=== PATIENT | female | born 1975 | race Caucasian/White ===

== ENCOUNTER 2021-01-13 08:22 | Outpatient (REF) | payer BC, MEDICARE, OTHER, SELFPAY ==
--- NOTE | 2021-01-13 10:59 | MHC.AU.AEV ---
Adult Audiological Evaluation Date of Visit: 01/13/21 Reason for Appointment: Patient has started to notice difficulty hearing out of her left ear. She used to always use her left ear on the phone. Lately when she tries to use her left ear, the phone sounds too soft. When she switches to the right ear, the phone sounds normal. She has also noticed difficulty understanding speech in background noise. Does patient feel they have a hearing loss?: Yes If Yes, Which Ear?: Left Ear When Was Hearing Difficulty First Noticed?: One month ago Ear History: Ear Deformity: None Reported Recent Ear Drainage: None Reported Recent Ear Pain: None Reported Family History of Hearing Loss?: Yes: Grandmother Recent Ear Infections: None Reported Ear Infections in Childhood: None Reported Previous Ear Surgery: None Reported Bothersome Tinnitus/Ringing/Noises in Ears: None Reported Blocked/Full Sensation in Ear(s): None Reported History of occupational noise exposure?: No History: No Medical History: Medical History: Primary Immunodeficiency (receives IVIG), Familial Mediterranean Fever, Migraines, Asthma, Diabetes, Bipolar, Sinus Problems, Has received IV antibiotics in the past Allergies: Morphine, Demerol, Reglan, Flonase, Tape/Adhesive Otoscopy: Right Ear: Unremarkable Left Ear: Unremarkable Tympanometry: Tympanometry performed due to: To assess integrity of the middle ear system Right Ear: Normal Middle Ear System (Type A) Left Ear: Normal Middle Ear System (Type A) Acoustic Reflexes: Ipsilateral Probe Right/Stimulus Right: 500 Hz: Present 1000 Hz: Present 2000 Hz: Present 4000 Hz: Present Probe Left/Stimulus Left: 500 Hz: Present 1000 Hz: Present 2000 Hz: Present 4000 Hz: Elevated Contralateral Probe Right/Stimulus Left: 500 Hz: Absent 1000 Hz: Absent 2000 Hz: Absent 4000 Hz: Absent Probe Left/Stimuls Right: 500 Hz: Present 1000 Hz: Present 2000 Hz: Present 4000 Hz: Present Otoacoustic Emissions Frequency Range Used: 1.6-8 kHz Right Ear Results: Present 1.6-7.1 kHz, Absent 8 kHz Left Ear Results: Present 1.6-5.6, 7.1 kHz, Reduced/absent 6.3 and 8.0 kHz Hearing Evaluation: Transducer(s) Used: Insert Earphones Method: Conventional Audiometry Stimuli Used: Pure Tones Right Ear: Description of Hearing: Overall normal; however, a conductive component was noted at 500 and 1000 Hz Left Ear: Description of Hearing: Normal from 250-750 hz, mild sensorineural hearing loss at 1000 Hz, borderline-normal at 1500 Hz, normal from 3274-6405 Hz. Left ear asymmetry noted at 250, 1000, 4000, and 8000 Hz Speech Recognition Threshold (SRT): Method Used: Recorded Lists Stimuli Used: Spondee Words Right Ear: 15 dBHL Left Ear: 20 dBHL Word Discrimination: Method: Recorded Lists Word Lists Used:: W-22 Right Ear: 100% at 55 dBHL Left Ear: 100% at 60 dBHL Most Comfortable Level (MCL): Right Ear: 55 dBHL Left Ear: 60 dBHL QuickSIN: Tested binaurally at 60 dBHL: score of 6 dB SNR loss, which suggests difficulty hearing in noise that is mildly elevated over the average listener. Interpretation of Results: Minor threshold asymmetries noted, where the left ear is worse. During speech audiometry, although the word discrimination of the left ear was 100%, patient reported that the sound quality seemed very different in the left ear. Abnormal findings noted in acoustic reflexes. In the right ear, all ipsilateral reflexes were normal. For contralateral (probe right/stimulus left), all reflexes were absent. In the left ear, ipsilateral reflexes at 500-2000 Hz were normal, and 4000 Hz was elevated. For contralateral probe left/stimulus right, all reflexes were normal. Abnormal findings were verified twice. Further retrocochlear evaluation may be warranted. Recommendations: Follow-up with Ear, Nose, and Throat is recommended to address left-sided hearing differences, including abnormal acoustic reflexes. Further retrocochlear evaluation may be warranted. Diagnosis: Primary Diagnosis: H93.293 Abnormal Auditory Perception Signature: Provider: Artis Szymanski, [facility]
== END 2021-01-13 08:23 | disposition home or self-care (01) ==
LOC: HO.SH 08:22
PROVIDERS: Visit Provider Hospitalist
DX: H93.293 Other abnormal auditory perceptions, bilateral (principal)
CPT/HCPCS: 92550; 92557; 92587

== ENCOUNTER 2021-01-29 09:51 | Inpatient (IN) | payer BC, MEDICAID, SELFPAY ==
[2021-01-29] MEDS: metFORMIN HCl 1,000 MG TABLET 1000 MG PO (17:05)
[2021-01-29] MEDS: Acetaminophen 325 MG TABLET 650 MG PO (17:05)
[2021-01-29 17:51] VITALS: BP 122/76; PULSE 84; RESP 18; TEMP 36.2; O2SAT 98
[2021-01-29 18:00] VITALS: BP 118/82; PULSE 89; RESP 16; TEMP 36.9; O2SAT 97
[2021-01-29 19:15] LABS: Glucose, Whole Blood 160 mg/dL (60-115)
[2021-01-29] MEDS: lamoTRIgine 100 MG TABLET 400 MG PO (20:27)
[2021-01-29] MEDS: Montelukast Sodium 10 MG TABLET PO (20:27)
[2021-01-29] MEDS: Atorvastatin Calcium 40 MG TABLET PO (20:28)
[2021-01-29] MEDS: Topiramate 100 MG TABLET 150 MG PO (20:28)
[2021-01-29] MEDS: Colchicine 0.6 MG TABLET PO (20:28)
[2021-01-29] MEDS: clonazePAM 0.5 MG TABLET PO (20:28)
[2021-01-29] MEDS: Benztropine Mesylate 1 MG TABLET PO (20:29)
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
[2021-01-30] MEDS: clonazePAM 1 MG TABLET PO (04:08)
--- NOTE | 2021-01-30 08:15 | HO.PSYCHPN ---
Subjective Subjective Date of Service: 01/30/21 Reason For Visit: Bipolar disorder Healthcare Proxy: No Guardianship: No Medical Problems Affecting Mental Status: No Interim History: Mood less unstable. Feeling more secure here. Adjusting to milieu. No SI here. Pleased with progress. Insighful re med choices. Medication Compliance: Yes Side effects from medications: No Attending Groups: Yes Review of Systems Acute medical concerns: No Medical Review of Systems: unchanged Review of Systems Review of Systems Yes all other systems are reviewed and are negative (except psychiatric symptoms) Mental Status Exam Mental Status Exam Patient Appearance: Disheveled Patient Orientation: Person, Place, Time and Situation Level of Consciousness: Awake and Appropriate Patient Behavior: Talkative and Cooperative Mood Description: Depressed and Anxious Affect Description: Depressed and Anxious Ability to Follow Directions: Excellent Speech Pattern: Clear Memory Description: Intact Diagnostics Vital Signs (24Hr): Vital Signs - 24 hr 01/29/21 17:51 01/29/21 18:00 Temperature 97.2 F 98.5 F Pulse Rate 84 89 Respiratory Rate 18 16 Blood Pressure 122/76 118/82 Pulse Oximetry 98 97 Labs Labs: Laboratory Results - last 48 hr 01/29/21 19:11 POC Glucose 160 H Medications Medications Current Medications Acetaminophen (Acetaminophen 325 Mg Tablet) 650 mg PO Q6H PRN PRN Reason: Headache/Pain Mild Scale (1-3) Last Admin: 01/29/21 17:05 Dose: 650 mg Documented by: Al Hydroxide/Mg Hydroxide (Magnesium Hydrox/Alum Hydrox 30 Ml Oral.Susp) 30 ml PO Q6H PRN PRN Reason: Heartburn/Nausea Atorvastatin Calcium (Atorvastatin Calcium 40 Mg Tablet) 40 mg PO BEDTIME [facility] Last Admin: 01/29/21 20:28 Dose: 40 mg Documented by: Benztropine Mesylate (Benztropine Mesylate 1 Mg Tablet) 1 mg PO BEDTIME [facility] Last Admin: 01/29/21 20:29 Dose: 1 mg Documented by: Benztropine Mesylate (Benztropine Mesylate 0.5 Mg Tablet) 0.5 mg PO DAILY [facility] Clonazepam (Clonazepam 0.5 Mg Tablet) 0.5 mg PO TID [facility] Last Admin: 01/29/21 20:28 Dose: 0.5 mg Documented by: Clonazepam (Clonazepam 1 Mg Tablet) 1 mg PO BEDTIME PRN PRN Reason: Anxiety Last Admin: 01/30/21 04:08 Dose: 1 mg Documented by: Colchicine (Colchicine 0.6 Mg Tablet) 0.6 mg PO BID [facility] Last Admin: 01/29/21 20:28 Dose: 0.6 mg Documented by: Hydroxyzine HCl (Hydroxyzine Hcl 25 Mg Tablet) 25 mg PO BEDTIME PRN PRN Reason: Anxiety Lamotrigine (Lamotrigine 100 Mg Tablet) 400 mg PO BEDTIME [facility] Last Admin: 01/29/21 20:27 Dose: 400 mg Documented by: Lisinopril (Lisinopril 2.5 Mg Tablet) 2.5 mg PO DAILY [facility]; Protocol [place] Carbonate ([place] Carbonate Er 300 Mg Tablet.Er) 600 mg PO BID [facility] Magnesium Hydroxide (Milk Of Magnesia 30 Ml Oral.Susp) 30 ml PO DAILY PRN PRN Reason: Constipation Metformin HCl (Metformin Hcl 1,000 Mg Tablet) 1,000 mg PO BIDWM [facility] Last Admin: 01/29/21 17:05 Dose: 1,000 mg Documented by: Montelukast Sodium (Montelukast Sodium 10 Mg Tablet) 10 mg PO BEDTIME [facility] Last Admin: 01/29/21 20:27 Dose: 10 mg Documented by: Nicotine (Nicotine 14 Mg Patch.Td24) 14 mg TRANSDERMA DAILY [facility] Nicotine Polacrilex (Nicotine Polacrilex 2 Mg Gum) 4 mg BUCCAL Q2H PRN PRN Reason: Nicotine Cravings Non-Formulary Medication (Norethindrone) 0.35 mg PO DAILY [facility] Sumatriptan Succinate (Sumatriptan Succinate 100 Mg Tablet) 100 mg PO DAILY MRX1 PRN PRN Reason: Migraine Headache Topiramate (Topiramate 100 Mg Tablet) 150 mg PO BEDTIME [facility] Last Admin: 01/29/21 20:28 Dose: 150 mg Documented by: Trazodone HCl (Trazodone Hcl 50 Mg Tablet) 50 mg PO BEDTIME PRN PRN Reason: Insomnia Allergies Allergies Allergy/AdvReac Type Severity Reaction Status Date / Time adhesive [ADHESIVE] Allergy Intermediate BLISTER Unverified 01/29/20 16:24 fluticasone [From FLONASE] Allergy Unknown unknown Unverified 01/29/20 16:24 meperidine [Demerol] Allergy Unknown vomit Verified 01/20/19 00:00 metoclopramide [From REGLAN] Allergy Unknown DIPLOPIA Unverified 01/29/20 16:24 transparent dressing Allergy Unknown rash Verified 01/20/19 00:00 morphine [MORPHINE] AdvReac Severe NAUSEA & Unverified 01/29/20 16:24 VOMITING TEGADERM BANDAGE Allergy Intermediate RASH Uncoded 01/29/20 16:24 morphine Allergy Unknown vomit Uncoded 01/20/19 00:00 tape Allergy Unknown rash Uncoded 01/20/19 00:00 From DEMEROL AdvReac Severe NAUSEA & Uncoded 01/29/20 16:24 VOMITING Assessment & Plan Assessment & Plan (1) Bipolar disorder: Status: Acute Code(s): F31.9 - Bipolar disorder, unspecified Assessment and Plan: Ct meds as prescribed. Optimize [place] Assessment and Plan: Ct Tx plan. Add trulicity when brought in. Greater than 50% of the session was spent on counseling and/or coordination of care Reason for contiued inpatient stay Substantial Risk for: harm to self
[2021-01-30 09:08] LABS: Glucose, Whole Blood 111 mg/dL (60-115)
[2021-01-30 09:09] LABS: Lithium 0.25 mmol/L (0.60-1.20)
[2021-01-30 10:25] VITALS: BP 109/73; PULSE 100; RESP 18; TEMP 37; O2SAT 95
[2021-01-30] MEDS: lisinopriL 2.5 MG TABLET PO (10:25)
[2021-01-30] MEDS: metFORMIN HCl 1,000 MG TABLET 1000 MG PO ×2 (10:32→18:38)
[2021-01-30] MEDS: clonazePAM 0.5 MG TABLET PO ×3 (10:33→20:10)
[2021-01-30] MEDS: Lithium Carbonate ER 300 MG TABLET.ER 600 MG PO ×2 (10:33→20:10)
[2021-01-30] MEDS: Colchicine 0.6 MG TABLET PO ×2 (10:33→20:10)
[2021-01-30] MEDS: Benztropine Mesylate 0.5 MG TABLET PO (10:34)
--- NOTE | 2021-01-30 13:37 | P.CNHOSGPS_ITS ---
History of Present Illness Data of Consult Service Date: 01/30/21 Requesting physician: [facility] Psychiatry Primary Care Provider: Lisandro MOONEY Reason for consult: Medical H+P 45yo F with bipolar disorder, on lithium and lamotrigine, admitted to inpatient psychiatry. Medical consultation requested for management of comorbid conditions and medical history and physical as required by policy. Histories reviewed as below. Currently denies fever, chills, cough, dyspnea, chest pain, abd pain, nausea, vomiting, or headache. Last migraine was yesterday. Last IVIg infusion was 01/25/21. Review of Systems Review of Systems: Yes all other systems are reviewed and are negative (except psychiatric symptoms) [facility] Medical History Allergic asthma Bipolar disorder Dyslipidemia FMF (familial Mediterranean fever) History of Pseudomonas pneumonia History of recurrent pneumonia Menstrual migraine Primary immunodeficiency disorder Type 2 diabetes mellitus Pertinent family history: no DM2, CVA, or MT Surgical History History of arthroscopy History of delivery History of dilation and curettage History of oral surgery History of umbilical hernia repair Social History Household Members: Spouse and Children Housing: House Do you presently have visiting nurse or other home services: No Patient Tobacco Use Status: Never used Tobacco Smoked in Last 30 Days: No e-Cigarette/Vaping Use: Never Used Patient Interested in Nicotine Replacement: No Use of substances other than those prescribed or required for medical reasons: No Currently Displaying Signs/Symptoms of Drug Intoxication Withdrawal: No Have you been hit, kicked, punched, or otherwise hurt by someone within the past year? If so, by whom?: No Do you feel safe in your current relationship?: Yes Is there a partner from a previous relationship who is making you feel unsafe now?: No Are you made to feel afraid or neglected: No Buddhist Healthcare Practices: Jew Advance Directives: Yes Advance Directives Information Provided: No Advance Directives on File: No Do you have thoughts of harming others: None Do you have a plan to hurt others: No Plan Recently lost weight without trying: No Eating poorly because of decreased appetite: No Nutrition Risks: No Nutritional Risk Patient : No : No Poor oral hygiene: No service: No Sexual orientation: Straight/Heterosexual Meds Allergies Allergy/AdvReac Type Severity Reaction Status Date / Time adhesive [ADHESIVE] Allergy Intermediate BLISTER Unverified 01/29/20 16:24 fluticasone [From FLONASE] Allergy Unknown unknown Unverified 01/29/20 16:24 meperidine [Demerol] Allergy Unknown vomit Verified 01/20/19 00:00 metoclopramide [From REGLAN] Allergy Unknown DIPLOPIA Unverified 01/29/20 16:24 transparent dressing Allergy Unknown rash Verified 01/20/19 00:00 morphine [MORPHINE] AdvReac Severe NAUSEA & Unverified 01/29/20 16:24 VOMITING TEGADERM BANDAGE Allergy Intermediate RASH Uncoded 01/29/20 16:24 morphine Allergy Unknown vomit Uncoded 01/20/19 00:00 tape Allergy Unknown rash Uncoded 01/20/19 00:00 From DEMEROL AdvReac Severe NAUSEA & Uncoded 01/29/20 16:24 VOMITING Active Medications: Current Medications Acetaminophen (Acetaminophen 325 Mg Tablet) 650 mg PO Q6H PRN PRN Reason: Headache/Pain Mild Scale (1-3) Last Admin: 01/29/21 17:05 Dose: 650 mg Documented by: Al Hydroxide/Mg Hydroxide (Magnesium Hydrox/Alum Hydrox 30 Ml Oral.Susp) 30 ml PO Q6H PRN PRN Reason: Heartburn/Nausea Atorvastatin Calcium (Atorvastatin Calcium 40 Mg Tablet) 40 mg PO BEDTIME [facility] Last Admin: 01/29/21 20:28 Dose: 40 mg Documented by: Benztropine Mesylate (Benztropine Mesylate 1 Mg Tablet) 1 mg PO BEDTIME [facility] Last Admin: 01/29/21 20:29 Dose: 1 mg Documented by: Benztropine Mesylate (Benztropine Mesylate 0.5 Mg Tablet) 0.5 mg PO DAILY [facility] Last Admin: 01/30/21 10:34 Dose: 0.5 mg Documented by: Clonazepam (Clonazepam 0.5 Mg Tablet) 0.5 mg PO TID [facility] Last Admin: 01/30/21 10:33 Dose: 0.5 mg Documented by: Clonazepam (Clonazepam 1 Mg Tablet) 1 mg PO BEDTIME PRN PRN Reason: Anxiety Last Admin: 01/30/21 04:08 Dose: 1 mg Documented by: Colchicine (Colchicine 0.6 Mg Tablet) 0.6 mg PO BID [facility] Last Admin: 01/30/21 10:33 Dose: 0.6 mg Documented by: Hydroxyzine HCl (Hydroxyzine Hcl 25 Mg Tablet) 25 mg PO BEDTIME PRN PRN Reason: Anxiety Lamotrigine (Lamotrigine 100 Mg Tablet) 400 mg PO BEDTIME [facility] Last Admin: 01/29/21 20:27 Dose: 400 mg Documented by: Lisinopril (Lisinopril 2.5 Mg Tablet) 2.5 mg PO DAILY [facility]; Protocol Last Admin: 01/30/21 10:25 Dose: 2.5 mg Documented by: [place] Carbonate ([place] Carbonate Er 300 Mg Tablet.Er) 600 mg PO BID [facility] Last Admin: 01/30/21 10:33 Dose: 600 mg Documented by: Magnesium Hydroxide (Milk Of Magnesia 30 Ml Oral.Susp) 30 ml PO DAILY PRN PRN Reason: Constipation Metformin HCl (Metformin Hcl 1,000 Mg Tablet) 1,000 mg PO BIDWM [facility] Last Admin: 01/30/21 10:32 Dose: 1,000 mg Documented by: Montelukast Sodium (Montelukast Sodium 10 Mg Tablet) 10 mg PO BEDTIME [facility] Last Admin: 01/29/21 20:27 Dose: 10 mg Documented by: Nicotine (Nicotine 14 Mg Patch.Td24) 14 mg TRANSDERMA DAILY [facility] Nicotine Polacrilex (Nicotine Polacrilex 2 Mg Gum) 4 mg BUCCAL Q2H PRN PRN Reason: Nicotine Cravings Patient Own Medication ( Norethindrone 0.35 Mg Tabs) 1 each PO DAILY [facility] Non-Formulary Medication (Trulicity) 0.75 mg SUBCUT 7XD [facility] Sumatriptan Succinate (Sumatriptan Succinate 100 Mg Tablet) 100 mg PO DAILY M RX1 PRN PRN Reason: Migraine Headache Topiramate (Topiramate 100 Mg Tablet) 150 mg PO BEDTIME [facility] Last Admin: 01/29/21 20:28 Dose: 150 mg Documented by: Trazodone HCl (Trazodone Hcl 50 Mg Tablet) 50 mg PO BEDTIME PRN PRN Reason: Insomnia Results Labs Labs: Laboratory Results - last 24 hr 01/29/21 01/30/21 01/30/21 19:11 08:43 09:03 POC Glucose 160 H 111 [place] 0.25 L Assessment and Plan (1) Menstrual migraine: Status: Acute (2) Allergic asthma: Status: Acute (3) Dyslipidemia: Status: Acute (4) Type 2 diabetes mellitus: Status: Acute (5) FMF (familial Mediterranean fever): Status: Acute (6) Primary immunodeficiency disorder: Status: Acute 45yo F with DM2, primary immunodeficiency, familial Mediterranean fever, dyslipidemia, menstrual migraines, and allergic asthma admitted to inpatient psychiatry for management of bipolar depression # DM2 - continue MTF, hold Trulicity [nonformulary]; check A1c - continue lisinopril for renal protection # dyslipidemia - continue atorvastatin # primary immunodeficiency - gets Gammagard infusions q3wk; last was 5d ago # FMF - continue colchicine # allergic asthma - continue montelukast, prn albuterol HFA; also gets Xolair monthly # menstrual migraines - continue norethindrone, topiramate, prn sumatriptan, prn Fioricet # tobacco abuse - NRT # bipolar disorder - as per Psychiatry; currently on lamotrigine + lithium and levels pending; also on hydroxyzine, clonazepam, and trazodone Thank you for this consult. We are signing off. Please get in touch if any new medical issues arise. Physical Exam Vital Signs: Last Vital Signs Temp 98.6 F 01/30/21 10:25 Pulse 100 01/30/21 10:25 Resp 18 01/30/21 10:25 BP 109/73 01/30/21 10:25 Pulse Ox 95 01/30/21 10:25 Gen: in no acute distress HEENT: sclera anicteric, moist mucus membranes Neck: supple Lungs: clear to auscultation bilaterally Heart: regular rate and rhythm, no murmurs Abd: soft, non-tender, non-distended Ext: no edema Skin: warm/well-perfused Neuro: alert and oriented x3, no focal findings Psych: appropriate affect Neuro Cranial nerves: Yes CN's II-XII intact bilaterally
[2021-01-30 18:00] VITALS: BP 105/69; PULSE 96; RESP 18; TEMP 36.7
[2021-01-30] MEDS: Topiramate 100 MG TABLET 150 MG PO (20:08)
[2021-01-30] MEDS: lamoTRIgine 100 MG TABLET 400 MG PO (20:10)
[2021-01-30] MEDS: Montelukast Sodium 10 MG TABLET PO (20:10)
[2021-01-30] MEDS: Benztropine Mesylate 1 MG TABLET PO (20:10)
[2021-01-30] MEDS: Atorvastatin Calcium 40 MG TABLET PO (20:10)
[2021-01-31 08:05] VITALS: BP 131/73; PULSE 104; TEMP 36.3; O2SAT 99
[2021-01-31 08:38] LABS: Estimated Glomerular Filt Rate > 60
[2021-01-31 09:10] VITALS: BP 131/73; PULSE 104
[2021-01-31] MEDS: lisinopriL 2.5 MG TABLET PO (09:10)
[2021-01-31] MEDS: Lithium Carbonate ER 300 MG TABLET.ER 600 MG PO ×2 (09:10→20:46)
[2021-01-31] MEDS: Colchicine 0.6 MG TABLET PO ×2 (09:10→20:47)
[2021-01-31] MEDS: Benztropine Mesylate 0.5 MG TABLET PO (09:11)
[2021-01-31] MEDS: metFORMIN HCl 1,000 MG TABLET 1000 MG PO ×2 (09:11→18:40)
[2021-01-31] MEDS: clonazePAM 0.5 MG TABLET PO ×2 (09:11→20:46)
[2021-01-31] MEDS: OXcarbazepine 150 MG TABLET PO ×2 (11:52→20:46)
[2021-01-31] MEDS: Acetaminophen 325 MG TABLET 650 MG PO (11:53)
--- NOTE | 2021-01-31 14:19 | HO.PSYCHPN ---
Subjective Subjective Date of Service: 01/31/21 Reason For Visit: Bipolar disorder Interim History: pt reports she is doing OK. feeling a little shaky but not terrible. denies SI/SIBI. states her SI was passive at admission. reviews changes made with Dr. Schrader over the weekend: lithium dosing changed from 1200 at HS to 600 BID, lamictal dosing lowered from 600 mg @HS to 400 mg @HS and level drawn. sharifshaw DCed due to concern for DM. trileptal was to be added, but that was not done until today, starting at 150 mg BID. pt would like to discharge by the end of the week. MD indicates his intention to get trulicity, a home medication which her brought in for her, restarted as of today. will await lamictal level and plan to check lithium level later in the week. Mental Status Exam Mental Status Exam Patient Appearance: Disheveled Patient Orientation: Person, Place, Time and Situation Level of Consciousness: Awake and Appropriate Patient Behavior: Talkative and Cooperative Mood Description: Depressed and Anxious Affect Description: Depressed and Anxious Ability to Follow Directions: Excellent Speech Pattern: Clear Memory Description: Intact Diagnostics Vital Signs (24Hr): Vital Signs - 24 hr 01/30/21 18:00 01/31/21 08:05 01/31/21 09:10 Temperature 98.0 F 97.3 F Pulse Rate 96 104 H 104 H Respiratory Rate 18 Blood Pressure 105/69 131/73 131/73 Pulse Oximetry 99 Labs Results: 01/31/21 07:45 Labs: Laboratory Results - last 48 hr 01/29/21 01/30/21 01/30/21 19:11 08:43 09:03 Creatinine Estim Creat Clear Calc Estimated GFR POC Glucose 160 H 111 [place] 0.25 L 01/31/21 07:45 Creatinine 0.93 Estim Creat Clear Calc TNP Estimated GFR > 60 POC Glucose [place] Medications Medications Current Medications Acetaminophen (Acetaminophen 325 Mg Tablet) 650 mg PO Q6H PRN PRN Reason: Headache/Pain Mild Scale (1-3) Last Admin: 01/31/21 11:53 Dose: 650 mg Documented by: Acetaminophen/Butalbital/Caffeine (Butalb/Acetamin/Caff 50/325/40 Tablet) 1 tab PO Q4H PRN PRN Reason: migraine not responsive to sum Al Hydroxide/Mg Hydroxide (Magnesium Hydrox/Alum Hydrox 30 Ml Oral.Susp) 30 ml PO Q6H PRN PRN Reason: Heartburn/Nausea Albuterol Sulfate (Albuterol Sulfate 90 Mcg 8 Gm Inhaler) 2 puff INHALE RQ4H PRN PRN Reason: shortness of breath/wheeze Atorvastatin Calcium (Atorvastatin Calcium 40 Mg Tablet) 40 mg PO BEDTIME [facility] Last Admin: 01/30/21 20:10 Dose: 40 mg Documented by: Benztropine Mesylate (Benztropine Mesylate 1 Mg Tablet) 1 mg PO BEDTIME [facility] Last Admin: 01/30/21 20:10 Dose: 1 mg Documented by: Benztropine Mesylate (Benztropine Mesylate 0.5 Mg Tablet) 0.5 mg PO DAILY [facility] Last Admin: 01/31/21 09:11 Dose: 0.5 mg Documented by: Clonazepam (Clonazepam 1 Mg Tablet) 1 mg PO BEDTIME PRN PRN Reason: Anxiety Last Admin: 01/30/21 04:08 Dose: 1 mg Documented by: Clonazepam (Clonazepam 0.5 Mg Tablet) 0.5 mg PO BID [facility] Clonazepam (Clonazepam 0.5 Mg Tablet) 0.5 mg PO DAILY PRN PRN Reason: agitation Colchicine (Colchicine 0.6 Mg Tablet) 0.6 mg PO BID [facility] Last Admin: 01/31/21 09:10 Dose: 0.6 mg Documented by: Hydroxyzine HCl (Hydroxyzine Hcl 25 Mg Tablet) 25 mg PO BEDTIME PRN PRN Reason: Anxiety Lamotrigine (Lamotrigine 100 Mg Tablet) 400 mg PO BEDTIME [facility] Last Admin: 01/30/21 20:10 Dose: 400 mg Documented by: Lisinopril (Lisinopril 2.5 Mg Tablet) 2.5 mg PO DAILY [facility]; Protocol Last Admin: 01/31/21 09:10 Dose: 2.5 mg Documented by: [place] Carbonate ([place] Carbonate Er 300 Mg Tablet.Er) 600 mg PO BID [facility] Last Admin: 01/31/21 09:10 Dose: 600 mg Documented by: Magnesium Hydroxide (Milk Of Magnesia 30 Ml Oral.Susp) 30 ml PO DAILY PRN PRN Reason: Constipation Metformin HCl (Metformin Hcl 1,000 Mg Tablet) 1,000 mg PO BIDWM [facility] Last Admin: 01/31/21 09:11 Dose: 1,000 mg Documented by: Montelukast Sodium (Montelukast Sodium 10 Mg Tablet) 10 mg PO BEDTIME [facility] Last Admin: 01/30/21 20:10 Dose: 10 mg Documented by: Nicotine (Nicotine 14 Mg Patch.Td24) 14 mg TRANSDERMA DAILY [facility] Last Admin: 01/31/21 09:15 Dose: Not Given Documented by: Nicotine Polacrilex (Nicotine Polacrilex 2 Mg Gum) 4 mg BUCCAL Q2H PRN PRN Reason: Nicotine Cravings Patient Own Medication ( Norethindrone 0.35 Mg Tabs) 1 each PO DAILY [facility] Last Admin: 01/31/21 11:26 Dose: Not Given Documented by: Non-Formulary Medication (Trulicity) 0.5 ml SUBCUT ONCE ONE Stop: 01/31/21 14:17 Oxcarbazepine (Oxcarbazepine 150 Mg Tablet) 150 mg PO BID [facility] Last Admin: 01/31/21 11:52 Dose: 150 mg Documented by: Sumatriptan Succinate (Sumatriptan Succinate 100 Mg Tablet) 100 mg PO DAILY MRX1 PRN PRN Reason: Migraine Headache Topiramate (Topiramate 100 Mg Tablet) 150 mg PO BEDTIME [facility] Last Admin: 01/30/21 20:08 Dose: 150 mg Documented by: Trazodone HCl (Trazodone Hcl 50 Mg Tablet) 50 mg PO BEDTIME PRN PRN Reason: Insomnia Allergies Allergies Allergy/AdvReac Type Severity Reaction Status Date / Time adhesive [ADHESIVE] Allergy Intermediate BLISTER Unverified 01/29/20 16:24 fluticasone [From FLONASE] Allergy Unknown unknown Unverified 01/29/20 16:24 meperidine [Demerol] Allergy Unknown vomit Verified 01/20/19 00:00 metoclopramide [From REGLAN] Allergy Unknown DIPLOPIA Unverified 01/29/20 16:24 transparent dressing Allergy Unknown rash Verified 01/20/19 00:00 morphine [MORPHINE] AdvReac Severe NAUSEA & Unverified 01/29/20 16:24 VOMITING TEGADERM BANDAGE Allergy Intermediate RASH Uncoded 01/29/20 16:24 morphine Allergy Unknown vomit Uncoded 01/20/19 00:00 tape Allergy Unknown rash Uncoded 01/20/19 00:00 From DEMEROL AdvReac Severe NAUSEA & Uncoded 01/29/20 16:24 VOMITING Assessment & Plan Assessment & Plan (1) Bipolar disorder: Status: Acute Code(s): F31.9 - Bipolar disorder, unspecified Assessment and Plan: Ct meds as prescribed. [employer] [place] Assessment and Plan: 1) lithium dosing changed from 1200 QHS to 600 BID 2) lamictal reduced from 600 QHS to 400 QHS and level drawn, pending. 3) geodone DCed. 4) trileptal started 01/31 at 150 BID. 5) trulicity ordered for 01/31 afternoon. otherwise continued outpt regimen. planning to DC prior to the end of the week. Greater than 50% of the session was spent on counseling and/or coordination of care Reason for contiued inpatient stay Substantial Risk for: inability to function and rapid decompensation
--- NOTE | 2021-01-31 15:28 | MHC.CLN ---
NUTRITION PATIENT REPORTS GOOD APPETITE/EATING WELL. REPORTED HEIGHT=5'4 , REPORTED JXNFUD=[id number]#.
[2021-01-31] MEDS: Omeprazole 20 MG CAPSULE.DR PO (18:40)
[2021-01-31] MEDS: Topiramate 100 MG TABLET 150 MG PO (20:45)
[2021-01-31] MEDS: lamoTRIgine 100 MG TABLET 400 MG PO (20:45)
[2021-01-31] MEDS: Atorvastatin Calcium 40 MG TABLET PO (20:46)
[2021-01-31] MEDS: Benztropine Mesylate 1 MG TABLET PO (20:46)
[2021-01-31] MEDS: Montelukast Sodium 10 MG TABLET PO (20:47)
[2021-01-31 21:15] VITALS: BP 112/64; PULSE 108; RESP 18; TEMP 36.9; O2SAT 95
[2021-02-01] MEDS: Omeprazole 20 MG CAPSULE.DR PO ×2 (05:47→17:00)
[2021-02-01 06:00] VITALS: BP 116/80; PULSE 93; RESP 18; TEMP 36.8; O2SAT 96
[2021-02-01] MEDS: OXcarbazepine 150 MG TABLET PO (08:50)
[2021-02-01] MEDS: clonazePAM 0.5 MG TABLET PO (08:50)
[2021-02-01] MEDS: Loratadine 10 MG TABLET PO (08:51)
[2021-02-01] MEDS: Lithium Carbonate ER 300 MG TABLET.ER 600 MG PO ×2 (08:51→20:29)
[2021-02-01] MEDS: lisinopriL 2.5 MG TABLET PO (08:51)
[2021-02-01] MEDS: metFORMIN HCl 1,000 MG TABLET 1000 MG PO ×2 (08:51→18:31)
[2021-02-01] MEDS: Benztropine Mesylate 0.5 MG TABLET PO (08:51)
[2021-02-01] MEDS: Colchicine 0.6 MG TABLET PO ×2 (08:51→20:34)
[2021-02-01 09:32] LABS: Glucose, Whole Blood 179 mg/dL (60-115)
--- NOTE | 2021-02-01 11:52 | P.PNPSI_ITS ---
Subjective Subjective Date of Service: 02/01/21 Reason For Visit: Bipolar disorder Interim History: pt informed home meds that need to be injected are unable to be given per pharmacy policy. pt informed she will have to miss her trulicity this week, with which she is OK. in addition, zolair will not be available form [facility], so pt will delay her injection by one week. she agrees her mood is improved, anxiety is less. MD asks what else can be done for her here since she is feeling better. she states she is very concerned about leaving the hospital without having a therapist in place. she reports she is currently on very long wait-lists for a therapist. darlin DE'ed as well as pt is no longer taking a neuroleptic medication, klonpin dosing decreased to 0.25 mg BID and daily PRN. per staff, pt has experienced a decrease in anxiety and depression. she has a good appetite and is sleeping well. she has been visible in the milieu, and social. Mental Status Exam Mental Status Exam Narrative: disheveled. cooperative. no PMA/PMR. speech somewhat soft, slowed, and a bit slurred - she reports she is just sleepy. thoughts linear and logical. affect subdued, non-labile, hypo-intense. no SI/HI/AVH expressed. Diagnostics Vital Signs (24Hr): Vital Signs - 24 hr 01/31/21 21:15 02/01/21 06:00 Temperature 98.5 F 98.3 F Pulse Rate 108 H 93 Respiratory Rate 18 18 Blood Pressure 112/64 116/80 Pulse Oximetry 95 96 Labs Results: 01/31/21 07:45 Labs: Laboratory Results - last 48 hr 01/31/21 02/01/21 07:45 09:28 Creatinine 0.93 Estim Creat Clear Calc TNP Estimated GFR > 60 POC Glucose 179 H Medications Medications Current Medications Acetaminophen (Acetaminophen 325 Mg Tablet) 650 mg PO Q6H PRN PRN Reason: Headache/Pain Mild Scale (1-3) Last Admin: 01/31/21 11:53 Dose: 650 mg Documented by: Acetaminophen/Butalbital/Caffeine (Butalb/Acetamin/Caff 50/325/40 Tablet) 1 tab PO Q4H PRN PRN Reason: migraine not responsive to sum Al Hydroxide/Mg Hydroxide (Magnesium Hydrox/Alum Hydrox 30 Ml Oral.Susp) 30 ml PO Q6H PRN PRN Reason: Heartburn/Nausea Albuterol Sulfate (Albuterol Sulfate 90 Mcg 8 Gm Inhaler) 2 puff INHALE RQ4H PRN PRN Reason: shortness of breath/wheeze Atorvastatin Calcium (Atorvastatin Calcium 40 Mg Tablet) 40 mg PO BEDTIME [facility] Last Admin: 01/31/21 20:46 Dose: 40 mg Documented by: Clonazepam (Clonazepam 1 Mg Tablet) 1 mg PO BEDTIME PRN PRN Reason: Anxiety Last Admin: 01/30/21 04:08 Dose: 1 mg Documented by: Clonazepam (Clonazepam 0.5 Mg Tablet) 0.25 mg PO DAILY PRN PRN Reason: agitation Clonazepam (Clonazepam 0.5 Mg Tablet) 0.25 mg PO BID [facility] Colchicine (Colchicine 0.6 Mg Tablet) 0.6 mg PO BID [facility] Last Admin: 02/01/21 08:51 Dose: 0.6 mg Documented by: Hydroxyzine HCl (Hydroxyzine Hcl 25 Mg Tablet) 25 mg PO BEDTIME PRN PRN Reason: Anxiety Lamotrigine (Lamotrigine 100 Mg Tablet) 400 mg PO BEDTIME [facility] Last Admin: 01/31/21 20:45 Dose: 400 mg Documented by: Lisinopril (Lisinopril 2.5 Mg Tablet) 2.5 mg PO DAILY [facility]; Protocol Last Admin: 02/01/21 08:51 Dose: 2.5 mg Documented by: [place] Carbonate ([place] Carbonate Er 300 Mg Tablet.Er) 600 mg PO BID [facility] Last Admin: 02/01/21 08:51 Dose: 600 mg Documented by: Loratadine (Loratadine 10 Mg Tablet) 10 mg PO DAILY [facility] Last Admin: 02/01/21 08:51 Dose: 10 mg Documented by: Magnesium Hydroxide (Milk Of Magnesia 30 Ml Oral.Susp) 30 ml PO DAILY PRN PRN Reason: Constipation Metformin HCl (Metformin Hcl 1,000 Mg Tablet) 1,000 mg PO BIDWM [facility] Last Admin: 02/01/21 08:51 Dose: 1,000 mg Documented by: Montelukast Sodium (Montelukast Sodium 10 Mg Tablet) 10 mg PO BEDTIME [facility] Last Admin: 01/31/21 20:47 Dose: 10 mg Documented by: Nicotine (Nicotine 14 Mg Patch.Td24) 14 mg TRANSDERMA DAILY [facility] Last Admin: 02/01/21 08:51 Dose: Not Given Documented by: Nicotine Polacrilex (Nicotine Polacrilex 2 Mg Gum) 4 mg BUCCAL Q2H PRN PRN Reason: Nicotine Cravings Patient Own Medication ( Norethindrone 0.35 Mg Tabs) 1 each PO DAILY [facility] Last Admin: 01/31/21 11:26 Dose: Not Given Documented by: Omeprazole (Omeprazole 20 Mg Capsule.Dr) 20 mg PO BID@0630,1630 [facility] Last Admin: 02/01/21 05:47 Dose: 20 mg Documented by: Oxcarbazepine (Oxcarbazepine 300 Mg Tablet) 300 mg PO BID [facility] Sumatriptan Succinate (Sumatriptan Succinate 100 Mg Tablet) 100 mg PO DAILY MRX1 PRN PRN Reason: Migraine Headache Topiramate (Topiramate 100 Mg Tablet) 150 mg PO BEDTIME [facility] Last Admin: 01/31/21 20:45 Dose: 150 mg Documented by: Trazodone HCl (Trazodone Hcl 50 Mg Tablet) 50 mg PO BEDTIME PRN PRN Reason: Insomnia Allergies Allergies Allergy/AdvReac Type Severity Reaction Status Date / Time adhesive [ADHESIVE] Allergy Intermediate BLISTER Unverified 01/29/20 16:24 fluticasone [From FLONASE] Allergy Unknown unknown Unverified 01/29/20 16:24 meperidine [Demerol] Allergy Unknown vomit Verified 01/20/19 00:00 metoclopramide [From REGLAN] Allergy Unknown DIPLOPIA Unverified 01/29/20 16:24 transparent dressing Allergy Unknown rash Verified 01/20/19 00:00 morphine [MORPHINE] AdvReac Severe NAUSEA & Unverified 01/29/20 16:24 VOMITING TEGADERM BANDAGE Allergy Intermediate RASH Uncoded 01/29/20 16:24 morphine Allergy Unknown vomit Uncoded 01/20/19 00:00 tape Allergy Unknown rash Uncoded 01/20/19 00:00 From DEMEROL AdvReac Severe NAUSEA & Uncoded 01/29/20 16:24 VOMITING Assessment & Plan Assessment & Plan (1) Bipolar disorder: Status: Acute Code(s): F31.9 - Bipolar disorder, unspecified Assessment and Plan: improved since admission Assessment and Plan: 1) lithium dosing changed from 1200 QHS to 600 BID. 2) lamictal reduced from 600 QHS to 400 QHS and level drawn, pending. 3) brea DCed. darlin DCed along with it. 4) trileptal started 01/31 at 150 BID. increased to 300 BID as of 02/01. 5) trulicity unavailable inpatient. 6) klonopin 0.5 BID scheduled at admission reduced to 0.25 BID as of 02/01. otherwise continued outpt regimen. planning to DC prior to the end of the week. Greater than 50% of the session was spent on counseling and/or coordination of care Reason for contiued inpatient stay Substantial Risk for: harm to self, inability to function and rapid decompensation
[2021-02-01 19:22] LABS: Glucose, Whole Blood 180 mg/dL (60-115)
[2021-02-01] MEDS: Atorvastatin Calcium 40 MG TABLET PO (20:29)
[2021-02-01] MEDS: Montelukast Sodium 10 MG TABLET PO (20:29)
[2021-02-01] MEDS: lamoTRIgine 100 MG TABLET 400 MG PO (20:30)
[2021-02-01] MEDS: Topiramate 100 MG TABLET 150 MG PO (20:31)
[2021-02-01] MEDS: OXcarbazepine 300 MG TABLET PO (20:32)
[2021-02-01] MEDS: clonazePAM 0.5 MG TABLET 0.25 MG PO (20:33)
[2021-02-01 22:42] LABS: Glucose, Whole Blood 112 mg/dL (60-115)
[2021-02-02 08:07] LABS: Glucose, Whole Blood 135 mg/dL (60-115)
[2021-02-02] MEDS: Lithium Carbonate ER 300 MG TABLET.ER 600 MG PO (08:12)
[2021-02-02] MEDS: Omeprazole 20 MG CAPSULE.DR PO (08:13)
[2021-02-02] MEDS: OXcarbazepine 300 MG TABLET PO (08:13)
[2021-02-02] MEDS: Loratadine 10 MG TABLET PO (08:13)
[2021-02-02] MEDS: Colchicine 0.6 MG TABLET PO (08:13)
[2021-02-02] MEDS: metFORMIN HCl 1,000 MG TABLET 1000 MG PO (08:13)
[2021-02-02 08:14] VITALS: BP 109/57
[2021-02-02] MEDS: lisinopriL 2.5 MG TABLET PO (08:14)
[2021-02-02] MEDS: clonazePAM 0.5 MG TABLET 0.25 MG PO (08:14)
[2021-02-02] MEDS: Acetaminophen 325 MG TABLET 650 MG PO (08:26)
[2021-02-02 08:38] VITALS: BP 109/57; RESP 16; O2SAT 97
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
== END 2021-02-02 12:14 | disposition home or self-care (01) | DRG 885 ==
PROVIDERS: Psychiatry & Neurology Psychiatry; Admitting Provider Psychiatry & Neurology Psychiatry; PCP Hospitalist; Visit Provider Psychiatry & Neurology Psychiatry
DX: F31.9 Bipolar disorder, unspecified (principal); E78.5 Hyperlipidemia, unspecified; D89.9 Disorder involving the immune mechanism, unspecified; J45.909 Unspecified asthma, uncomplicated; G43.829 Menstrual migraine, not intractable, without status migrainosus; Z88.5 Allergy status to narcotic agent; Z79.84 Long term (current) use of oral hypoglycemic drugs; Z79.899 Other long term (current) drug therapy
CPT/HCPCS: 36415; 80175; 80178; 82565; 82947

== ENCOUNTER 2022-01-31 17:03 | Inpatient (IN) | payer BC, MEDICARE, SELFPAY ==
--- NOTE | ~2022-01-31 | XR_ITS ---
EXAMINATION: XR ANKLE, RIGHT CLINICAL INFORMATION: Pain COMPARISON: None TECHNIQUE: AP, lateral, and mortise views of the right ankle. FINDINGS: Bone alignment is normal. No acute fracture or dislocation is seen. There is a well-corticated ossification in the soft tissues adjacent to the lateral talus questionable for changes related to old trauma. The ankle mortise is normal. There is a small plantar calcaneal spur. XR/XR ankle RT min 3V IMPRESSION: No acute fracture or dislocation.
--- NOTE | 2022-01-31 17:25 | ED.PSYCH ---
HPI - Psych General Chief Complaint: Psychiatric Symptoms Stated Complaint: crisis Source: patient Mode of arrival: ambulatory Limitations: no limitations History of Present Illness HPI Narrative: A 46-year-old female presents for crisis evaluation for mood instability, inability to cope with significant life stressors, and feels that her medications are not tapered properly. She was tapered off of lithium, and is now on Vraylar, does not feel like the dosage of Vraylar is sufficient coverage for her needs. She is not suicidal or homicidal, but states that she cannot cope with everyday life time, feels like she is going to lose it, and also needs a medication adjustment. MD complaint: feels depressed and anxiety Onset (ago): week(s) Duration: constant and getting worse History of same: Yes Relieving factors: none Context: new medication(s) and significant life stressor Associated psychiatric symptoms: depression and racing thoughts Associated symptoms: denies other symptoms Related Data Home Medications Medication Instructions Recorded Confirmed atorvastatin 10 mg tablet 1 tab PO DAILY 01/31/22 01/31/22 benztropine 0.5 mg tablet 1 tab PO BID 01/31/22 01/31/22 colchicine 0.6 mg tablet 1 tab PO BID 01/31/22 01/31/22 dulaglutide 0.75 mg/0.5 mL 0.5 ml subcut QWEEK 01/31/22 01/31/22 subcutaneous pen injector (Trulicity) hydrochlorothiazide 25 mg tablet 1 tab PO DAILY 01/31/22 01/31/22 hydroxyzine HCl 10 mg tablet 3 tab PO BEDTIME 01/31/22 01/31/22 ipratropium 20 mcg-albuterol 100 1 puff inhalation QID PRN Wheezing 01/31/22 01/31/22 mcg/actuation mist for inhalation (Combivent Respimat) lamotrigine 200 mg tablet,extended 2 tab PO BEDTIME 01/31/22 01/31/22 release 24 hr montelukast 10 mg tablet 1 tab PO QPM 01/31/22 01/31/22 norethindrone (contraceptive) 0.35 1 tab PO DAILY 01/31/22 01/31/22 mg tablet omeprazole 40 mg capsule,delayed 1 cap PO BID 01/31/22 01/31/22 release oxcarbazepine 300 mg tablet 1 tab PO BID 01/31/22 01/31/22 topiramate 50 mg tablet 50 mg PO QAM 01/31/22 01/31/22 topiramate 50 mg tablet 200 mg PO BEDTIME 01/31/22 01/31/22 Allergies Allergy/AdvReac Type Severity Reaction Status Date / Time adhesive [ADHESIVE] Allergy Intermediate BLISTER Unverified 01/29/20 16:24 fluticasone [From FLONASE] Allergy Unknown unknown Unverified 01/29/20 16:24 meperidine [Demerol] Allergy Unknown vomit Verified 01/20/19 00:00 metoclopramide [From REGLAN] Allergy Unknown DIPLOPIA Unverified 01/29/20 16:24 transparent dressing Allergy Unknown rash Verified 01/20/19 00:00 morphine [MORPHINE] AdvReac Severe NAUSEA & Unverified 01/29/20 16:24 VOMITING TEGADERM BANDAGE Allergy Intermediate RASH Uncoded 01/29/20 16:24 morphine Allergy Unknown vomit Uncoded 01/20/19 00:00 tape Allergy Unknown rash Uncoded 01/20/19 00:00 From DEMEROL AdvReac Severe NAUSEA & Uncoded 01/29/20 16:24 VOMITING Review of Systems Review of Systems: Constitutional: No Fever, No Chills ENT/Mouth: No Ear Pain, No Nasal Congestion, No sore throat Eyes: No Eye Pain, No Swelling, No Redness Cardiovascular: No Chest Pain, No SOB Respiratory: No Cough, No Sputum, No Dyspnea Gastrointestinal: No Nausea, No Vomiting, No Diarrhea, No Hematochezia, No Melena Genitourinary: No Dysuria, No Urinary Frequency, No Hematuria Musculoskeletal: No Myalgias, positive right ankle pain Skin: No Skin Lesions, No rash Neuro: No Weakness, No Numbness, No Paresthesias, No Dizziness, No Headache Psych: positive Anxiety, positive Depression, denies SI/HI Heme/Lymph: No Lymphadenopathy Endocrine: No Polyuria, No Polydipsia Yes all other systems are reviewed and are negative [facility] Past Medical History Attestation statement: The following information was validated with the patient. Source: old records reviewed Medical History Allergic asthma Bipolar disorder Dyslipidemia FMF (familial Mediterranean fever) History of Pseudomonas pneumonia History of recurrent pneumonia Menstrual migraine Primary immunodeficiency disorder Type 2 diabetes mellitus Surgical History History of arthroscopy History of delivery History of dilation and curettage History of oral surgery History of umbilical hernia repair Social History Social History Household Members: Spouse and Children Housing: House Do you presently have visiting nurse or other home services: No Patient Tobacco Use Status: Never used Tobacco e-Cigarette/Vaping Use: Never Used Advance Directives: No Advance Directives Information Provided: No Guardian: No service: No Sexual orientation: Straight/Heterosexual Physical Exam Vital Signs: Vital Signs: Last Vital Signs Temp 99 F 01/31/22 17:34 Pulse 105 H 01/31/22 17:34 Resp 18 01/31/22 17:34 BP 126/95 H 01/31/22 17:34 Pulse Ox 97 01/31/22 17:34 O2 Del Method 01/31/22 17:34 BMI result Body Mass Index 28.6 Appearance: Alert. Oriented X3. Moderate emotional distress. Eyes: Pupils equal, round and reactive to light. ENT: Pharynx normal. Neck: Normal inspection. Neck supple. CVS: Normal heart rate and rhythm. Pulses normal. Respiratory: No respiratory distress. Breath sounds normal. Abdomen: Soft and nontender. Skin: Skin warm and dry. Normal skin color. Normal skin turgor. Extremities: No lower extremity edema. Walker boot to right lower extremity. Neuro: No motor deficit. No sensory deficit. Cranial nerves 2-12 intact Course Course Course Narrative: 46-year-old female presents for psychiatric evaluation. Patient has had multiple stressors recently parathyroid surgery, sprained her right ankle, and her son fractured his wrist. States that there are many health and family problems going on at this time. She a medication change, was taken off her lithium and put on Vraylar, states that she might not be on the right dose of Vraylar because she is not able to cope and manage her emotions. She is not suicidal or homicidal, but states that she cannot function. Will order lab values, crisis consult and Psychiatric consult. 22:21. Evaluated by care team, plan of care is involuntary bed search. Physician observation started. MDM - Psych Differential Diagnosis Differential diagnosis: Likely depression, acute anxiety and post-traumatic stress disorder Medical Records Attestation: I reviewed the patient's medical records. Lab Data Attestation: I reviewed the patient's lab results. Result diagrams: 01/31/22 18:51 01/31/22 18:51 Labs: Lab Results 01/31/22 01/31/22 01/31/22 Range/Units 17:56 17:56 18:51 WBC 7.9 (4.8-10.8) X10*3/uL RBC 4.92 (4.20-5.50) X10*6/uL Hgb 13.1 (12.0-16.0) g/dl Hct 39.9 (37.0-47.0) % MCV 81.1 (80.0-98.0) fL MCH 26.6 L (27.0-33.0) pg MCHC 32.8 (31.0-35.0) g/dl RDW 14.0 (11.0-16.0) % Plt Count 278 (160-400) X10*3/uL MPV 10.6 (9.4-12.3) fL Immature Gran % (Auto) 0.3 (0.0-0.4) % Neut % (Auto) 64.0 (45-73) % Lymph % (Auto) 23.2 (20-40) % [place] % (Auto) 8.2 (2-11) % Eos % (Auto) 3.2 (0-4) % Baso % (Auto) 1.1 (0-2) % Lymph # (Auto) 1.8 (1.2-4.9) X10*3/uL [place] # (Auto) 0.7 (0.1-1.2) X10*3/uL Eos # (Auto) 0.3 (0.0-0.4) X10*3/uL Baso # (Auto) 0.1 (0.0-0.2) X10*3/uL Abs Immat Gran (auto) 0.02 (0.00-0.03) X10*3/uL Absolute Neuts (auto) 5.1 (2.0-8.3) x10*3/uL Absolute Nucleated RBC 0.000 (0.0-0.012) X10*3/uL Nucleated RBC % (auto) 0.0 (0.0-0.2) /100WBC Sodium (135-145) mmol/L Potassium (3.3-5.1) mmol/L Chloride (96-108) mmol/L Carbon Dioxide (22-29) mmol/L Anion Gap (12-20) BUN (9-16) mg/dL Creatinine (0.5-1.4) mg/dL Estim Creat Clear Calc Estimated GFR Random Glucose (60-115) mg/dL Calcium (8.4-10.2) mg/dL Total Bilirubin (0.0-1.0) mg/dL Direct Bilirubin (0.0-0.5) mg/dL AST (5-31) U/L ALT (0-31) U/L Alkaline Phosphatase (39-117) U/L Total Protein (6.5-8.0) g/dL Albumin (3.5-5.0) g/dL Lipase (8-78) U/L Urine Opiates Screen Not Detected (Not Detect) Urine Fentanyl Screen Not Detected (Not Detect) Ur Barbiturates Screen Not Detected (Not Detect) Ur Phencyclidine Scrn Not Detected (Not Detect) Ur Amphetamines Screen Not Detected (Not Detect) U Benzodiazepines Scrn Not Detected (Not Detect) Urine Cocaine Screen Not Detected (Not Detect) U Marijuana (THC) Screen Not Detected (Not Detect) COVID-19 (ANDRES) Negative (Negative) COVID-19 Clin Com See Note 01/31/22 Range/Units 18:51 WBC (4.8-10.8) X10*3/uL RBC (4.20-5.50) X10*6/uL Hgb (12.0-16.0) g/dl Hct (37.0-47.0) % MCV (80.0-98.0) fL MCH (27.0-33.0) pg MCHC (31.0-35.0) g/dl RDW (11.0-16.0) % Plt Count (160-400) X10*3/uL MPV (9.4-12.3) fL Immature Gran % (Auto) (0.0-0.4) % Neut % (Auto) (45-73) % Lymph % (Auto) (20-40) % [place] % (Auto) (2-11) % Eos % (Auto) (0-4) % Baso % (Auto) (0-2) % Lymph # (Auto) (1.2-4.9) X10*3/uL [place] # (Auto) (0.1-1.2) X10*3/uL Eos # (Auto) (0.0-0.4) X10*3/uL Baso # (Auto) (0.0-0.2) X10*3/uL Abs Immat Gran (auto) (0.00-0.03) X10*3/uL Absolute Neuts (auto) (2.0-8.3) x10*3/uL Absolute Nucleated RBC (0.0-0.012) X10*3/uL Nucleated RBC % (auto) (0.0-0.2) /100WBC Sodium 141 (135-145) mmol/L Potassium 2.8 L (3.3-5.1) mmol/L Chloride 104 (96-108) mmol/L Carbon Dioxide 20 L (22-29) mmol/L Anion Gap 20 (12-20) BUN 19 H (9-16) mg/dL Creatinine 1.20 (0.5-1.4) mg/dL Estim Creat Clear Calc 58.3 Estimated GFR 48 Random Glucose 229 H (60-115) mg/dL Calcium 9.7 (8.4-10.2) mg/dL Total Bilirubin 0.3 (0.0-1.0) mg/dL Direct Bilirubin < 0.2 (0.0-0.5) mg/dL AST 18 (5-31) U/L ALT 32 H (0-31) U/L Alkaline Phosphatase 115 (39-117) U/L Total Protein 7.2 (6.5-8.0) g/dL Albumin 4.7 (3.5-5.0) g/dL Lipase 29 (8-78) U/L Urine Opiates Screen (Not Detect) Urine Fentanyl Screen (Not Detect) Ur Barbiturates Screen (Not Detect) Ur Phencyclidine Scrn (Not Detect) Ur Amphetamines Screen (Not Detect) U Benzodiazepines Scrn (Not Detect) Urine Cocaine Screen (Not Detect) U Marijuana (THC) Screen (Not Detect) COVID-19 (ANDRES) (Negative) COVID-19 Clin Com Discharge Plan Discharge Clinical Impression: Depression, Acute anxiety Patient Disposition: Still a Patient Prescriptions: No Action benztropine 0.5 mg tablet 1 tab PO BID atorvastatin 10 mg tablet 1 tab PO DAILY oxcarbazepine 300 mg tablet 1 tab PO BID omeprazole 40 mg capsule,delayed release(DR/EC) 1 cap PO BID hydrochlorothiazide 25 mg tablet 1 tab PO DAILY colchicine 0.6 mg tablet 1 tab PO BID norethindrone (contraceptive) 0.35 mg tablet 1 tab PO DAILY hydroxyzine HCl 10 mg tablet 3 tab PO BEDTIME topiramate 50 mg tablet 50 mg PO QAM lamotrigine 200 mg tablet extended release 24hr 2 tab PO BEDTIME topiramate 50 mg tablet 200 mg PO BEDTIME montelukast 10 mg tablet 1 tab PO QPM Combivent Respimat 20-100 mcg/actuation mist 1 puff INHALATION QID PRN (Reason: Wheezing) Trulicity 0.75 mg/0.5 mL pen injector 0.5 ml subcut QWEEK
[2022-01-31 17:34] VITALS: BP 126/95; PULSE 105; RESP 18; TEMP 37.2; O2SAT 97; BMI 28.6
--- NOTE | 2022-01-31 18:00 | PC.NURSE ---
client reports parathyroid surgery 01/06/22
[2022-01-31 18:19] LABS: COVID-19 Test Negative (Negative)
[2022-01-31 18:44] LABS: Amphetamine Screen Urine Not Detected (Not Detect); Barbiturates, Urine Not Detected (Not Detect); Benzodiazepines Screen Urine Not Detected (Not Detect); Cannabinoid Screen Urine Not Detected (Not Detect); Cocaine Screen Urine Not Detected (Not Detect); Fentanyl, urine Not Detected (Not Detect); Opiate Screen Urine Not Detected (Not Detect); Phencyclidine Screen Urine Not Detected (Not Detect)
[2022-01-31 18:57] LABS: MANUAL DIFF FLAG NO
[2022-01-31 19:05] LABS: Basophils Absolute Auto 0.1 X10*3/uL (0.0-0.2); Basophils Percent Auto 1.1 % (0-2); Eosinophils Absolute Auto 0.3 X10*3/uL (0.0-0.4); Eosinophils Percent Auto 3.2 % (0-4); Hematocrit 39.9 % (37.0-47.0); Hemoglobin 13.1 g/dl (12.0-16.0); Imm Gran Abs Auto 0.02 X10*3/uL (0.00-0.03); Imm Gran Pct Auto 0.3 % (0.0-0.4); Lymphocytes Absolute Auto 1.8 X10*3/uL (1.2-4.9); Lymphocytes Percent Auto 23.2 % (20-40); Mean Corpuscular HGB Conc 32.8 g/dl (31.0-35.0); Mean Corpuscular Hemoglobin 26.6 pg (27.0-33.0); Mean Corpuscular Volume 81.1 fL (80.0-98.0); Mean Platelet Volume 10.6 fL (9.4-12.3); Monocytes Absolute Auto 0.7 X10*3/uL (0.1-1.2); Monocytes Percent Auto 8.2 % (2-11); Neutrophils Absolute Auto 5.1 x10*3/uL (2.0-8.3); Platelet Count 278 X10*3/uL (160-400); Red Blood Count 4.92 X10*6/uL (4.20-5.50); White Blood Count 7.9 X10*3/uL (4.8-10.8)
[2022-01-31 19:17] LABS: Alanine Aminotransferase 32 U/L (0-31); Albumin Level 4.7 g/dL (3.5-5.0); Alkaline Phosphatase 115 U/L (39-117); Anion Gap 20 (12-20); Aspartate Amino Transferase 18 U/L (5-31); Bilirubin Direct < 0.2 mg/dL (0.0-0.5); Bilirubin Total 0.3 mg/dL (0.0-1.0); Blood Urea Nitrogen 19 mg/dL (9-16); Calcium 9.7 mg/dL (8.4-10.2); Carbon Dioxide 20 mmol/L (22-29); Chloride 104 mmol/L (96-108); Creatinine Clr Calc Pharmacy 58.3; Estimated Glomerular Filt Rate 48; Glucose Random 229 mg/dL (60-115); Lipase 29 U/L (8-78); Potassium 2.8 mmol/L (3.3-5.1); Sodium 141 mmol/L (135-145); Total Protein 7.2 g/dL (6.5-8.0)
[2022-01-31] MEDS: Potassium Chloride Packet 20 MEQ PACKET 40 MEQ PO (22:03)
--- NOTE | 2022-01-31 23:38 | MHC.CARE ---
CARE team completed evaluation, plan is for voluntary inpt psychiatric admission
--- NOTE | 2022-02-01 | ECG_ITS ---
Test Reason : medical clearance Blood Pressure : / mmHG Vent. Rate : 095 BPM Atrial Rate : 095 BPM P-R Int : 154 ms QRS Dur : 094 ms QT Int : 380 ms P-R-T Axes : -07 016 036 degrees QTc Int : 477 ms Normal sinus rhythm Possible Anterior infarct , age undetermined Abnormal ECG When compared with ECG of 21-DEC-2017 11:01, No significant change was found Referred By: Eda Squires Electronically Signed By:CLARISSA HOPE
[2022-02-01 00:54] VITALS: BP 130/90; PULSE 95; RESP 16; TEMP 36.7; O2SAT 95
[2022-02-01] MEDS: Potassium Chloride Packet 20 MEQ PACKET 40 MEQ PO (01:14)
[2022-02-01] MEDS: OXcarbazepine 300 MG TABLET PO ×3 (01:54→21:14)
[2022-02-01] MEDS: Omeprazole 40 MG CAPSULE.DR PO ×3 (01:54→21:13)
[2022-02-01] MEDS: Benztropine Mesylate 0.5 MG TABLET PO ×3 (01:55→21:15)
[2022-02-01] MEDS: Montelukast Sodium 10 MG TABLET PO ×2 (01:55→16:47)
[2022-02-01] MEDS: Topiramate 25 MG TABLET 200 MG PO (01:55)
--- NOTE | 2022-02-01 06:05 | PC.NURSE ---
Patient slept through the night, no distress observed/reported, compliant with her medication, behavior appropriate and non concerning, disposition per care team is voluntary inpatient bed search, VSS, patient ambulates independently with her walker, will continue to monitor.
[2022-02-01] MEDS: hydroCHLOROthiazide 25 MG TABLET PO (08:06)
[2022-02-01 08:30] LABS: Potassium 3.5 mmol/L (3.3-5.1)
[2022-02-01 08:49] LABS: Appearance Urine Clear; Color Urine Yellow; Glucose Urine UA Negative (Negative); Leukocyte Esterase Urine Moderate (2+) (Negative); Nitrite Urine Negative (Negative); Specific Gravity - Urine <= 1.005 (1.005-1.025); UMIC TRIGGER UACC YES; Urine Blood Negative (Negative); Urine Ketones Negative (Negative); Urine Protein Negative (Neg-Trace)
[2022-02-01 08:50] LABS: UPreg QC Valid YES; Urine Pregnancy NEGATIVE (NEGATIVE)
[2022-02-01] MEDS: Colchicine 0.6 MG TABLET PO ×2 (08:53→22:24)
[2022-02-01 08:54] LABS: Bacteria Urine None Seen (None Seen); Hyaline Casts Urine 0-2 /LPF (0-2); RBC Urine 0-2 /HPF (0-2); Squamous Epithelial Cell Urine 0-2 /HPF (0-2); UACC Culture Trigger YES
[2022-02-01] MEDS: Topiramate 25 MG TABLET 50 MG PO (08:54)
--- NOTE | 2022-02-01 11:27 | MHC.CARE ---
Call to [employer] [place] ([phone]), spoke to Zheng who stated that the Emergency Dept has to fax clinical [phone] prior to sending the Admission Notification Form. Evaluation faxed to above number.
--- NOTE | 2022-02-01 13:31 | PC.NURSE ---
patients father came in to visit briefly brought softcover book and long acting lamictal meds, given to pharmacy for identification
[2022-02-01 14:30] VITALS: BP 100/69; PULSE 88; RESP 16; TEMP 36.6; O2SAT 96
[2022-02-01] MEDS: Docusate Sodium 100 MG CAPSULE PO (15:35)
--- NOTE | 2022-02-01 15:52 | HE.PHANOTE ---
Shani called from the pod to note that pt states she takes 3mg Vraylar daily and 2 tablets of Citracal daily. Vraylar 1.5mg was in claim history from late November x 30 days, but when I asked about it Shani said she stated she was given samples do to insurance issues. Added to home med list.
--- NOTE | 2022-02-01 16:52 | PC.NURSE ---
patient particular about meds (patient very knowledgable about them) gave client singulair which she normally takes at hs, notified pharmacy to chage time if possible. asked pharmacy to start tomorrow, will endeavor to report to person picking up client to not give that med again tonight.
--- NOTE | 2022-02-01 17:22 | PC.NURSE ---
client had telehealth visit post op for parathyroid gland removal, (and part of thyroid) client asked me to try and obtain tsh for her provider, requested this of pod provider via tiger. calcium was normal and proivder also asked to continue vraylar and calcium.
[2022-02-01 20:08] VITALS: BP 125/81; PULSE 98; RESP 18; TEMP 36.1; O2SAT 97
[2022-02-01] MEDS: hydrOXYzine HCL 10 MG TABLET 30 MG PO (21:14)
[2022-02-01] MEDS: Atorvastatin Calcium 10 MG TABLET PO (21:15)
[2022-02-01] MEDS: Topiramate 100 MG TABLET 200 MG PO (22:24)
--- NOTE | 2022-02-01 23:41 | PC.ADMIT ---
Pt. is a 46 year old Sinhala speaking female who presents to from [facility] at approx 19:45 on a CV status. Pt. has been evaluated by the CARE team after she presented to the ED endorsing passive SI. She reported symptoms of a mixed manic-depressive episode. Pt. has DX of unspecified bipolar disorder, recently tapered of Floris due to impending liver failure and she is being tapered onto vraylar over the past two month. Pt. had multiple medical DX's. She expressed impulsively and feeling overwhelmed but stated she wants to live for her son. She denied any substance use, she is not a cigarette nor a marijuana smoker. Pt. denied current SI or SH. Pt. has a HX of inpt. psychiatric admissions. Pt. was forthcoming upon admission process, she made good eye contact, she was polite and cooperative. She was concerned about her medications, she signed consent forms and her safety tool. She sprained her right ankle and has a bootie. She expressed she would like to get a walker. She has an appointment on Saturday 02/03 at 10:[address] Darnell Clinton, a neurologist from [facility] via [employer]. Med. orders were received from JOHNNY Maurice and administered.
[2022-02-02 06:00] VITALS: BP 117/82; PULSE 92; RESP 16; TEMP 36.6; O2SAT 97
[2022-02-02 07:00] VITALS: BMI 29.0
[2022-02-02] MEDS: Benztropine Mesylate 0.5 MG TABLET PO ×2 (08:30→19:43)
[2022-02-02] MEDS: Topiramate 25 MG TABLET 50 MG PO (08:30)
[2022-02-02] MEDS: hydroCHLOROthiazide 25 MG TABLET PO (08:30)
[2022-02-02] MEDS: OXcarbazepine 300 MG TABLET PO ×2 (08:31→19:43)
[2022-02-02] MEDS: Omeprazole 40 MG CAPSULE.DR PO ×2 (08:31→19:43)
[2022-02-02] MEDS: Colchicine 0.6 MG TABLET PO ×2 (08:31→19:42)
[2022-02-02 08:57] LABS: Estimated Average Glucose 128 mg/dL; Hemoglobin A1C 150.9479 umol/L; Hemoglobin A1c % 6.1 %
[2022-02-02] MEDS: Acetaminophen 325 MG TABLET 650 MG PO ×2 (08:58→15:38)
[2022-02-02 09:08] LABS: Alanine Aminotransferase 38 U/L (0-31); Albumin Level 4.6 g/dL (3.5-5.0); Alkaline Phosphatase 120 U/L (39-117); Anion Gap 17 (12-20); Aspartate Amino Transferase 29 U/L (5-31); Bilirubin Direct < 0.2 mg/dL (0.0-0.5); Bilirubin Total 0.4 mg/dL (0.0-1.0); Blood Urea Nitrogen 22 mg/dL (9-16); Calcium 9.8 mg/dL (8.4-10.2); Carbon Dioxide 21 mmol/L (22-29); Chloride 107 mmol/L (96-108); Cholesterol 285 mg/dL; Creatinine Clr Calc Pharmacy 58.8; Estimated Glomerular Filt Rate 49; Glucose Fasting 174 mg/dL (60-99); HDL Cholesterol 39 mg/dL; LDL Cholesterol Calculated 182 mg/dl; Potassium 3.4 mmol/L (3.3-5.1); Sodium 142 mmol/L (135-145); Total Protein 7.2 g/dL (6.5-8.0); Triglycerides 324 mg/dL
[2022-02-02 09:25] LABS: Thyroid Stimulating Hormone 2.36 uIU/mL (0.32-4.0)
[2022-02-02 09:37] LABS: Folate 13.6 ng/mL (> or = 4.0); Vitamin B12 617 pg/mL (200-900)
[2022-02-02] MEDS: Docusate Sodium 100 MG CAPSULE PO (14:47)
[2022-02-02 16:31] VITALS: BP 120/77; PULSE 99; RESP 16; TEMP 36.5; O2SAT 96
[2022-02-02] MEDS: Atorvastatin Calcium 10 MG TABLET PO (19:42)
[2022-02-02] MEDS: Topiramate 100 MG TABLET 200 MG PO (19:42)
[2022-02-02] MEDS: hydrOXYzine HCL 10 MG TABLET 30 MG PO (19:43)
[2022-02-02] MEDS: Montelukast Sodium 10 MG TABLET PO (19:43)
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
[2022-02-02] MEDS: OXcarbazepine 150 MG TABLET 450 MG PO (20:47)
[2022-02-03] MEDS: Docusate Sodium 100 MG CAPSULE PO ×3 (06:51→20:05)
[2022-02-03] MEDS: Colchicine 0.6 MG TABLET PO ×2 (08:39→19:28)
[2022-02-03] MEDS: Cariprazine HCl 1.5 MG CAPSULE 4.5 MG PO (08:39)
[2022-02-03] MEDS: Topiramate 25 MG TABLET 50 MG PO (08:39)
[2022-02-03] MEDS: Omeprazole 40 MG CAPSULE.DR PO ×2 (08:40→19:28)
[2022-02-03] MEDS: OXcarbazepine 150 MG TABLET 450 MG PO ×2 (08:40→19:29)
[2022-02-03] MEDS: hydroCHLOROthiazide 25 MG TABLET PO (08:40)
[2022-02-03] MEDS: Benztropine Mesylate 0.5 MG TABLET PO ×2 (08:40→19:29)
[2022-02-03 09:36] VITALS: BP 123/82; PULSE 108; RESP 16; TEMP 36.6; O2SAT 98
[2022-02-03] MEDS: Acetaminophen 325 MG TABLET 650 MG PO ×2 (10:12→16:09)
[2022-02-03] MEDS: Milk of Magnesia 30 ML ORAL.SUSP PO (13:41)
[2022-02-03 18:00] VITALS: BP 119/70; PULSE 102; RESP 16; TEMP 36.3; O2SAT 96
--- NOTE | 2022-02-03 18:34 | HO.PSYCHPN ---
Subjective Subjective Date of Service: 02/03/22 Reason For Visit: Mental health emergency Subjective Notes: Neri Warning Interim History: I spoke with pt's team, she is advocating for a discharge early next week due to medical appointments. She remotely attended an appointment with her OP neurologist today, who wants to put her on emgality and lower her topamax due to renal impairment, however this is pending insurance approval. Says my mood has been good, im still really frustrated and trying to process the whole cancer thing. Says she wants to talk to her pcp about an oncology referral, anxious that there is still a chance it could come back on the left side referring to malignancy found in thyroid nodules that were removed. She is frustrated that she doesnt have access to her computer to research her condition the way she wants. Sleep is fine. Appetite is good. Says her meds are helping and the therapeutic milieu has been good, as she enjoys talking to people, but she worries about feeling isolated at home.? Medication Compliance: Yes Side effects from medications: No Attending Groups: Yes Review of Systems Acute medical concerns: No Medical Review of Systems: unchanged Mental Status Exam Mental Status Exam Narrative: A&O. Overweight, dyed hair, R ankle orthopedic boot. Good eye contact, attentive. No Tics or Tremors. No abnormal involuntary movements. Calm, cooperative, engaged. Non-pressured speech, spontaneous with regular rate and rhythm, normal volume and prosody. No prolonged speech latency or dysarthria. Mood is ?depressed,? affect is appropriate. Denies SI/SIB/HI upon inquiry. Denies A/VH or delusional thought content. Thoughts are coherent, organized. No known cognitive or memory impairment. Insight/ Judgment fair and adequate. Diagnostics Vital Signs (24Hr): Vital Signs - 24 hr 02/03/22 09:36 Temperature 98 F Pulse Rate 108 H Respiratory Rate 16 Blood Pressure 123/82 Pulse Oximetry 98 Oxygen Delivery Method Room Air BMI result Body Mass Index 29.0 Labs Results: 01/31/22 18:51 02/02/22 07:41 Labs: Laboratory Results - last 48 hr 02/02/22 02/02/22 02/02/22 07:41 07:41 07:41 Sodium 142 Potassium 3.4 Chloride 107 Carbon Dioxide 21 L Anion Gap 17 BUN 22 H Creatinine 1.19 Estim Creat Clear Calc 58.8 Estimated GFR 49 Fasting Glucose 174 H Estimat Average Glucose 128 Hemoglobin A1c % 6.1 Calcium 9.8 Total Bilirubin 0.4 Direct Bilirubin < 0.2 AST 29 D ALT 38 H Alkaline Phosphatase 120 H Total Protein 7.2 Albumin 4.6 Triglycerides 324 Cholesterol 285 LDL Cholesterol, Calc 182 HDL Cholesterol 39 Vitamin B12 617 Folate 13.6 TSH 2.36 Free T4 0.80 Medications Medications Current Medications Acetaminophen (Acetaminophen 325 Mg Tablet) 650 mg PO Q6H PRN PRN Reason: Headache/Pain Mild Scale (1-3) Last Admin: 02/03/22 16:09 Dose: 650 mg Al Hydroxide/Mg Hydroxide (Magnesium Hydrox/Alum Hydrox 30 Ml Oral.Susp) 30 ml PO Q6H PRN PRN Reason: Heartburn/Nausea Albuterol/Ipratropium (Albuterol/Iprat 2.5/0.5mg 3 Ml Ampul.Neb) 3 ml INHALE RQ6H PRN PRN Reason: Wheezing Atorvastatin Calcium (Atorvastatin Calcium 10 Mg Tablet) 10 mg PO BEDTIME [facility] Last Admin: 02/02/22 19:42 Dose: 10 mg Benztropine Mesylate (Benztropine Mesylate 0.5 Mg Tablet) 0.5 mg PO BID [facility] Last Admin: 02/03/22 08:40 Dose: 0.5 mg Cariprazine (Cariprazine Hcl 1.5 Mg Capsule) 4.5 mg PO DAILY [facility] Last Admin: 02/03/22 08:39 Dose: 4.5 mg Colchicine (Colchicine 0.6 Mg Tablet) 0.6 mg PO BID [facility] Last Admin: 02/03/22 08:39 Dose: 0.6 mg Docusate Sodium (Docusate Sodium 100 Mg Capsule) 100 mg PO BID PRN PRN Reason: Constipation Last Admin: 02/03/22 12:16 Dose: 100 mg Hydrochlorothiazide (Hydrochlorothiazide 25 Mg Tablet) 25 mg PO DAILY [facility]; Protocol Last Admin: 02/03/22 08:40 Dose: 25 mg Hydroxyzine HCl (Hydroxyzine Hcl 10 Mg Tablet) 30 mg PO BEDTIME [facility] Last Admin: 02/02/22 19:43 Dose: 30 mg Hydroxyzine HCl (Hydroxyzine Hcl 25 Mg Tablet) 25 mg PO Q6H PRN PRN Reason: Anxiety Magnesium Hydroxide (Milk Of Magnesia 30 Ml Oral.Susp) 30 ml PO DAILY PRN PRN Reason: Constipation Last Admin: 02/03/22 13:41 Dose: 30 ml Montelukast Sodium (Montelukast Sodium 10 Mg Tablet) 10 mg PO BEDTIME [facility] Last Admin: 02/02/22 19:43 Dose: 10 mg Nicotine Polacrilex (Nicotine Polacrilex 2 Mg Gum) 2 mg BUCCAL Q2H PRN PRN Reason: Nicotine Cravings Non-Formulary Medication (Lamotrigine) 2 tab PO BEDTIME [facility] Last Admin: 02/02/22 20:09 Dose: 2 tab Non-Formulary Medication (Norethindrone (Contraceptive)) 1 tab PO BEDTIME [facility] Omeprazole (Omeprazole 40 Mg Capsule.Dr) 40 mg PO BID [facility] Last Admin: 02/03/22 08:40 Dose: 40 mg Oxcarbazepine (Oxcarbazepine 150 Mg Tablet) 450 mg PO BID [facility] Last Admin: 02/03/22 08:40 Dose: 450 mg Topiramate (Topiramate 25 Mg Tablet) 50 mg PO DAILY [facility] Last Admin: 02/03/22 08:39 Dose: 50 mg Topiramate (Topiramate 100 Mg Tablet) 200 mg PO BEDTIME [facility] Last Admin: 02/02/22 19:42 Dose: 200 mg Trazodone HCl (Trazodone Hcl 50 Mg Tablet) 50 mg PO BEDTIME PRN PRN Reason: Insomnia Allergies Allergies Allergy/AdvReac Type Severity Reaction Status Date / Time adhesive [ADHESIVE] Allergy Intermediate BLISTER Unverified 01/29/20 16:24 fluticasone [From FLONASE] Allergy Unknown unknown Unverified 01/29/20 16:24 meperidine [Demerol] Allergy Unknown vomit Verified 01/20/19 00:00 metoclopramide [From REGLAN] Allergy Unknown DIPLOPIA Unverified 01/29/20 16:24 transparent dressing Allergy Unknown rash Verified 01/20/19 00:00 morphine [MORPHINE] AdvReac Severe NAUSEA & Unverified 01/29/20 16:24 VOMITING TEGADERM BANDAGE Allergy Intermediate RASH Uncoded 01/29/20 16:24 morphine Allergy Unknown vomit Uncoded 01/20/19 00:00 tape Allergy Unknown rash Uncoded 01/20/19 00:00 From DEMEROL AdvReac Severe NAUSEA & Uncoded 01/29/20 16:24 VOMITING Assessment & Plan Assessment & Plan (1) Bipolar 1 disorder: Status: Acute Code(s): F31.9 - Bipolar disorder, unspecified Plan Meredith is a 46 y.o. Female who carries a dx of Bipolar I DO. She presented to [facility] on 01/31/2022 due to mood lability in context of recent medication changes. Pt was tapered off off lithium 2 months ago due to renal impairment, nephrocalcinosis. She was recently started on Vraylar but does not feel like the dosage is sufficient and her OP psych provider recommended she come to the hospital to have her meds adjusted in a safe setting. Per crisis eval, pt stated my life revolves around medical issues and appointments and she often doesn't focus on her mental health needs. Pt endorsed passive SI but denies plan or intent. Hx of IPLOC at [facility] in 01/2021 due to mixed episode. Utox negative. No alcohol abuse. Plan: Increase vraylar to 4.5 mg for mood stability. Pt understands this medication has a long half life, will take some time to notice efficacy. On cogentin, as pt says she has a ?lip quiver? and ?tremor? with vraylar. Will increase trileptal to 450 mg BID to target mood instability, as she says this med has been helpful thus far and she is interested in trialing a higher dose. On topamax for migraines, has OP neurologist following. Says hydroxyzine helps with sleep. 02/03: No med changes, monitor increase in trileptal and vraylar for benefit. Placed ortho consult, as pt is complaining of pain in R ankle s/p sprain, unable to wt bear. Q15 min safety checks, CV Monitor response to medications. Monitor for safety in the milieu. Discharge on stabilization. Patient seen. Chart reviewed. Discussed with team. Obtain collateral contact info?as needed I spent minutes with the patient and/or on the patient floor today, greater than?50% of which was spent counseling/coordinating care. Patient educated on: diagnosis, medication risk/benefits and therapeutic strategies Reason for contiued inpatient stay Substantial Risk for: rapid decompensation and med/psych decompensation
[2022-02-03] MEDS: hydrOXYzine HCL 10 MG TABLET 30 MG PO (19:28)
[2022-02-03] MEDS: Topiramate 100 MG TABLET 200 MG PO (19:28)
[2022-02-03] MEDS: Atorvastatin Calcium 10 MG TABLET PO (19:28)
[2022-02-03] MEDS: Montelukast Sodium 10 MG TABLET PO (19:29)
[2022-02-04] MEDS: Acetaminophen 325 MG TABLET 650 MG PO ×3 (05:13→19:41)
[2022-02-04] MEDS: Docusate Sodium 100 MG CAPSULE PO ×2 (05:15→16:21)
--- NOTE | 2022-02-04 05:20 | PC.NURSE ---
Pt awake at 5am c/o pain and swelling at area of glands on left side neck/jawline. Pt. rates pain as 3 or 4 out of 10. Neck/face appears symmetrical, with no gross swelling on visual inspection. Denies any other symptoms of illness or infection. Acetaminophen administered. Pt also reports having had bowel movement yesterday, but c/o hard stools and I think I may be starting to get hemorrhoids. Requests stool softener. Informed that this is scheduled for 0800, but requests available PRN.
[2022-02-04 06:00] VITALS: BP 112/67; PULSE 90; RESP 16; TEMP 37.2; O2SAT 97
[2022-02-04] MEDS: Benztropine Mesylate 0.5 MG TABLET PO ×2 (09:00→19:43)
[2022-02-04] MEDS: Topiramate 25 MG TABLET 50 MG PO (09:00)
[2022-02-04] MEDS: Colchicine 0.6 MG TABLET PO ×2 (09:00→19:43)
[2022-02-04] MEDS: OXcarbazepine 150 MG TABLET 450 MG PO ×2 (09:00→19:41)
[2022-02-04] MEDS: Cariprazine HCl 1.5 MG CAPSULE 4.5 MG PO (09:00)
[2022-02-04] MEDS: hydroCHLOROthiazide 25 MG TABLET PO (09:00)
[2022-02-04] MEDS: Omeprazole 40 MG CAPSULE.DR PO ×2 (09:25→19:43)
--- NOTE | 2022-02-04 12:44 | P.PNPSI_ITS ---
Subjective Subjective Date of Service: 02/04/22 Reason For Visit: Mental health emergency Interim History: Patient reports that she is feeling much better. Good mood, no SI, feeling stable. Patient talked about how anxiety provoking it was last week to get a cancer diagnosis and she feels that was a significant part of her destabilization; however she feels that her medications have been adjusted appropriately and she is doing better. Patient hopes to discharge early next week, Sunday if possible. Patient said that she is not wanting to continue taking Trulicity and would like to get back on to metformin which she had been on in the past. [employer] Specialist shared with patient her hemoglobin A1c and patient wants to have her fasting blood sugars checked which travel writer agreed to Order Mental Status Exam Mental Status Exam Narrative: A&O. Overweight, dyed hair, R ankle orthopedic boot. Good eye contact, attentive. No Tics or Tremors. No abnormal involuntary movements. Calm, cooperative, engaged. Non-pressured speech, spontaneous with regular rate and rhythm, normal volume and prosody. No prolonged speech latency or dysarthria. Mood is ?better,? affect is appropriate. Denies SI/SIB/HI upon inquiry. Denies A/VH or delusional thought content. Thoughts are coherent, organized. No known cognitive or memory impairment. Insight/ Judgment fair and adequate. Diagnostics Vital Signs (24Hr): Vital Signs - 24 hr 02/03/22 18:00 02/04/22 06:00 Temperature 97.4 F 98.9 F Pulse Rate 102 H 90 Respiratory Rate 16 16 Blood Pressure 119/70 112/67 Pulse Oximetry 96 97 Oxygen Delivery Method Room Air Room Air BMI result Body Mass Index 29.0 Labs Results: 01/31/22 18:51 02/02/22 07:41 Imaging Radiology Impressions: ITS Impressions Ankle X-Ray 02/04/22 09:35 IMPRESSION: No acute fracture or dislocation. Medications Medications Current Medications Acetaminophen (Acetaminophen 325 Mg Tablet) 650 mg PO Q6H PRN PRN Reason: Headache/Pain Mild Scale (1-3) Last Admin: 02/04/22 11:46 Dose: 650 mg Al Hydroxide/Mg Hydroxide (Magnesium Hydrox/Alum Hydrox 30 Ml Oral.Susp) 30 ml PO Q6H PRN PRN Reason: Heartburn/Nausea Albuterol/Ipratropium (Albuterol/Iprat 2.5/0.5mg 3 Ml Ampul.Neb) 3 ml INHALE RQ6H PRN PRN Reason: Wheezing Atorvastatin Calcium (Atorvastatin Calcium 10 Mg Tablet) 10 mg PO BEDTIME [facility] Last Admin: 02/03/22 19:28 Dose: 10 mg Benztropine Mesylate (Benztropine Mesylate 0.5 Mg Tablet) 0.5 mg PO BID LUCIE Last Admin: 02/04/22 09:00 Dose: 0.5 mg Cariprazine (Cariprazine Hcl 1.5 Mg Capsule) 4.5 mg PO DAILY LUCIE Last Admin: 02/04/22 09:00 Dose: 4.5 mg Colchicine (Colchicine 0.6 Mg Tablet) 0.6 mg PO BID LUCIE Last Admin: 02/04/22 09:00 Dose: 0.6 mg Docusate Sodium (Docusate Sodium 100 Mg Capsule) 100 mg PO BID PRN PRN Reason: Constipation Last Admin: 02/04/22 05:15 Dose: 100 mg Hydrochlorothiazide (Hydrochlorothiazide 25 Mg Tablet) 25 mg PO DAILY [facility]; Protocol Last Admin: 02/04/22 09:00 Dose: 25 mg Hydroxyzine HCl (Hydroxyzine Hcl 10 Mg Tablet) 30 mg PO BEDTIME [facility]CIE Last Admin: 02/03/22 19:28 Dose: 30 mg Hydroxyzine HCl (Hydroxyzine Hcl 25 Mg Tablet) 25 mg PO Q6H PRN PRN Reason: Anxiety Magnesium Hydroxide (Milk Of Magnesia 30 Ml Oral.Susp) 30 ml PO DAILY PRN PRN Reason: Constipation Last Admin: 02/03/22 13:41 Dose: 30 ml Montelukast Sodium (Montelukast Sodium 10 Mg Tablet) 10 mg PO BEDTIME [facility]CIE Last Admin: 02/03/22 19:29 Dose: 10 mg Nicotine Polacrilex (Nicotine Polacrilex 2 Mg Gum) 2 mg BUCCAL Q2H PRN PRN Reason: Nicotine Cravings Non-Formulary Medication (Lamotrigine) 2 tab PO BEDTIME [facility] Last Admin: 02/03/22 19:32 Dose: 2 tab Non-Formulary Medication (Norethindrone (Contraceptive)) 1 tab PO BEDTIME [facility]CIE Last Admin: 02/03/22 19:32 Dose: 1 tab Omeprazole (Omeprazole 40 Mg Capsule.Dr) 40 mg PO BID [facility] Last Admin: 02/04/22 09:25 Dose: 40 mg Oxcarbazepine (Oxcarbazepine 150 Mg Tablet) 450 mg PO BID [facility] Last Admin: 02/04/22 09:00 Dose: 450 mg Topiramate (Topiramate 25 Mg Tablet) 50 mg PO DAILY [facility] Last Admin: 02/04/22 09:00 Dose: 50 mg Topiramate (Topiramate 100 Mg Tablet) 200 mg PO BEDTIME [facility] Last Admin: 02/03/22 19:28 Dose: 200 mg Trazodone HCl (Trazodone Hcl 50 Mg Tablet) 50 mg PO BEDTIME PRN PRN Reason: Insomnia Allergies Allergies Allergy/AdvReac Type Severity Reaction Status Date / Time adhesive [ADHESIVE] Allergy Intermediate BLISTER Unverified 01/29/20 16:24 fluticasone [From FLONASE] Allergy Unknown unknown Unverified 01/29/20 16:24 meperidine [Demerol] Allergy Unknown vomit Verified 01/20/19 00:00 metoclopramide [From REGLAN] Allergy Unknown DIPLOPIA Unverified 01/29/20 16:24 transparent dressing Allergy Unknown rash Verified 01/20/19 00:00 morphine [MORPHINE] AdvReac Severe NAUSEA & Unverified 01/29/20 16:24 VOMITING TEGADERM BANDAGE Allergy Intermediate RASH Uncoded 01/29/20 16:24 morphine Allergy Unknown vomit Uncoded 01/20/19 00:00 tape Allergy Unknown rash Uncoded 01/20/19 00:00 From DEMEROL AdvReac Severe NAUSEA & Uncoded 01/29/20 16:24 VOMITING Assessment & Plan Assessment & Plan (1) Bipolar 1 disorder: Status: Acute Code(s): F31.9 - Bipolar disorder, unspecified Plan Meredith is a 46 y.o. Female who carries a dx of Bipolar I DO. She presented to [facility] [place] [place] [facility] on 01/31/2022 due to mood lability in context of recent medication changes. Pt was tapered off off lithium 2 months ago due to renal impairment, nephrocalcinosis. She was recently started on Vraylar but does not feel like the dosage is sufficient and her OP psych provider recommended she come to the hospital to have her meds adjusted in a safe setting. Per crisis eval, pt stated my life revolves around medical issues and appointments and she often doesn't focus on her mental health needs. Pt endorsed passive SI but denies plan or intent. Hx of IPLOC at [facility] [place] [place] M3 in 01/2021 due to mixed episode. Utox negative. No alcohol abuse. Plan: Increase vraylar to 4.5 mg for mood stability. Pt understands this medication has a long half life, will take some time to notice efficacy. On cogentin, as pt says she has a ?lip quiver? and ?tremor? with vraylar. Will increase trileptal to 450 mg BID to target mood instability, as she says this med has been helpful thus far and she is interested in trialing a higher dose. On topamax for migraines, has OP neurologist following. Says hydroxyzine helps with sleep. 02/03: No med changes, monitor increase in trileptal and vraylar for benefit. Placed ortho consult, as pt is complaining of pain in R ankle s/p sprain, unable to wt bear. 02/04 Patient feels mood is significantly better and she is asking for discharge. -restarted Metformin ER 500mg qhs -fasting blood sugars, bun/cr Q15 min safety checks, CV Monitor response to medications. Monitor for safety in the milieu. Discharge on stabilization. Patient seen. Chart reviewed. Discussed with team. Obtain collateral contact info?as needed I spent minutes with the patient and/or on the patient floor today, greater than?50% of which was spent counseling/coordinating care. Patient educated on: diagnosis, medication risk/benefits and medical condition Informed Consent: understands Reason for contiued inpatient stay Substantial Risk for: stable for discharge
[2022-02-04] MEDS: metFORMIN HCl ER 500 MG TAB.ER.24H PO (16:21)
[2022-02-04 19:10] VITALS: BP 127/78; PULSE 90; TEMP 36.7; O2SAT 98
[2022-02-04] MEDS: Topiramate 100 MG TABLET 200 MG PO (19:42)
[2022-02-04] MEDS: hydrOXYzine HCL 10 MG TABLET 30 MG PO (19:44)
[2022-02-04] MEDS: Atorvastatin Calcium 10 MG TABLET PO (19:44)
[2022-02-04] MEDS: Montelukast Sodium 10 MG TABLET PO (19:44)
--- NOTE | 2022-02-04 19:51 | PM.EVENT ---
Event Note Date of Service: 02/04/22 Event Note: X-rays obtained reveal no acute fracture or dislocation. Cam walking boot may be used for comfort. No additional orthopedic intervention is needed at this time.
[2022-02-05 06:00] VITALS: BP 114/68; PULSE 83; RESP 18; O2SAT 97
[2022-02-05 08:24] LABS: Glucose Fasting 133 mg/dL (60-99)
[2022-02-05] MEDS: SUMAtriptan succinate 100 MG TABLET PO (08:39)
[2022-02-05] MEDS: Topiramate 25 MG TABLET 50 MG PO (08:40)
[2022-02-05] MEDS: Colchicine 0.6 MG TABLET PO ×2 (08:40→20:36)
[2022-02-05] MEDS: OXcarbazepine 150 MG TABLET 450 MG PO ×2 (08:40→20:35)
[2022-02-05] MEDS: hydroCHLOROthiazide 25 MG TABLET PO (08:40)
[2022-02-05] MEDS: Omeprazole 40 MG CAPSULE.DR PO ×2 (08:40→20:35)
[2022-02-05] MEDS: Cariprazine HCl 1.5 MG CAPSULE 4.5 MG PO (08:40)
[2022-02-05] MEDS: Benztropine Mesylate 0.5 MG TABLET PO ×2 (08:41→20:35)
[2022-02-05] MEDS: Docusate Sodium 100 MG CAPSULE PO ×3 (09:12→20:36)
--- NOTE | 2022-02-05 15:07 | P.PNPSI_ITS ---
Subjective Subjective Date of Service: 02/05/22 Reason For Visit: Mental health emergency Interim History: Remains in good mood. No SI. Feeling stable and looking forward to going home as soon as she can be discharged. Reports she tolerated metformin well. Patient id patient is future oriented with plans to follow-up regarding her recent cancer diagnosis. Mental Status Exam Mental Status Exam Narrative: A&O. Overweight, dyed hair, R ankle orthopedic boot. Good eye contact, attenti ve. No Tics or Tremors. No abnormal involuntary movements. Calm, cooperative, engaged. Non-pressured speech, spontaneous with regular rate and rhythm, normal volume and prosody. No prolonged speech latency or dysarthria. Mood is ?good,? affect is appropriate. Denies SI/SIB/HI upon inquiry. Denies A/VH or delusional thought content. Thoughts are coherent, organized. No known cognitive or memory impairment. Insight/ Judgment fair and adequate. Diagnostics Vital Signs (24Hr): Vital Signs - 24 hr 02/04/22 19:10 02/05/22 06:00 Temperature 98.1 F Pulse Rate 90 83 Respiratory Rate 18 Blood Pressure 127/78 114/68 Pulse Oximetry 98 97 Oxygen Delivery Method Room Air Room Air BMI result Body Mass Index 29.0 Labs Results: 01/31/22 18:51 02/02/22 07:41 Labs: Laboratory Results - last 48 hr 02/05/22 08:07 Fasting Glucose 133 H Imaging Radiology Impressions: ITS Impressions Ankle X-Ray 02/04/22 09:35 IMPRESSION: No acute fracture or dislocation. Medications Medications Current Medications Acetaminophen (Acetaminophen 325 Mg Tablet) 650 mg PO Q6H PRN PRN Reason: Headache/Pain Mild Scale (1-3) Last Admin: 02/04/22 19:41 Dose: 650 mg Al Hydroxide/Mg Hydroxide (Magnesium Hydrox/Alum Hydrox 30 Ml Oral.Susp) 30 ml PO Q6H PRN PRN Reason: Heartburn/Nausea Albuterol/Ipratropium (Albuterol/Iprat 2.5/0.5mg 3 Ml Ampul.Neb) 3 ml INHALE RQ6H PRN PRN Reason: Wheezing Atorvastatin Calcium (Atorvastatin Calcium 10 Mg Tablet) 10 mg PO BEDTIME [facility] Last Admin: 02/04/22 19:44 Dose: 10 mg Benztropine Mesylate (Benztropine Mesylate 0.5 Mg Tablet) 0.5 mg PO BID [facility] Last Admin: 02/05/22 08:41 Dose: 0.5 mg Cariprazine (Cariprazine Hcl 1.5 Mg Capsule) 4.5 mg PO DAILY [facility] Last Admin: 02/05/22 08:40 Dose: 4.5 mg Colchicine (Colchicine 0.6 Mg Tablet) 0.6 mg PO BID [facility] Last Admin: 02/05/22 08:40 Dose: 0.6 mg Docusate Sodium (Docusate Sodium 100 Mg Capsule) 100 mg PO TID [facility] Hydrochlorothiazide (Hydrochlorothiazide 25 Mg Tablet) 25 mg PO DAILY [facility]; Protocol Last Admin: 02/05/22 08:40 Dose: 25 mg Hydroxyzine HCl (Hydroxyzine Hcl 10 Mg Tablet) 30 mg PO BEDTIME [facility] Last Admin: 02/04/22 19:44 Dose: 30 mg Hydroxyzine HCl (Hydroxyzine Hcl 25 Mg Tablet) 25 mg PO Q6H PRN PRN Reason: Anxiety Magnesium Hydroxide (Milk Of Magnesia 30 Ml Oral.Susp) 30 ml PO DAILY PRN PRN Reason: Constipation Last Admin: 02/03/22 13:41 Dose: 30 ml Metformin HCl (Metformin Hcl Er 500 Mg Tab.Er.24h) 500 mg PO DAILY@1700 [facility] Last Admin: 02/04/22 16:21 Dose: 500 mg Montelukast Sodium (Montelukast Sodium 10 Mg Tablet) 10 mg PO BEDTIME [facility] Last Admin: 02/04/22 19:44 Dose: 10 mg Nicotine Polacrilex (Nicotine Polacrilex 2 Mg Gum) 2 mg BUCCAL Q2H PRN PRN Reason: Nicotine Cravings Non-Formulary Medication (Lamotrigine) 2 tab PO BEDTIME [facility] Last Admin: 02/04/22 21:29 Dose: 2 tab Non-Formulary Medication (Norethindrone (Contraceptive)) 1 tab PO BEDTIME [facility] Last Admin: 02/04/22 21:32 Dose: 1 tab Omeprazole (Omeprazole 40 Mg Capsule.Dr) 40 mg PO BID [facility] Last Admin: 02/05/22 08:40 Dose: 40 mg Oxcarbazepine (Oxcarbazepine 150 Mg Tablet) 450 mg PO BID [facility] Last Admin: 02/05/22 08:40 Dose: 450 mg Topiramate (Topiramate 25 Mg Tablet) 50 mg PO DAILY [facility] Last Admin: 02/05/22 08:40 Dose: 50 mg Topiramate (Topiramate 100 Mg Tablet) 200 mg PO BEDTIME [facility] Last Admin: 02/04/22 19:42 Dose: 200 mg Trazodone HCl (Trazodone Hcl 50 Mg Tablet) 50 mg PO BEDTIME PRN PRN Reason: Insomnia Allergies Allergies Allergy/AdvReac Type Severity Reaction Status Date / Time adhesive [ADHESIVE] Allergy Intermediate BLISTER Unverified 01/29/20 16:24 fluticasone [From FLONASE] Allergy Unknown unknown Unverified 01/29/20 16:24 meperidine [Demerol] Allergy Unknown vomit Verified 01/20/19 00:00 metoclopramide [From REGLAN] Allergy Unknown DIPLOPIA Unverified 01/29/20 16:24 transparent dressing Allergy Unknown rash Verified 01/20/19 00:00 morphine [MORPHINE] AdvReac Severe NAUSEA & Unverified 01/29/20 16:24 VOMITING TEGADERM BANDAGE Allergy Intermediate RASH Uncoded 01/29/20 16:24 morphine Allergy Unknown vomit Uncoded 01/20/19 00:00 tape Allergy Unknown rash Uncoded 01/20/19 00:00 From DEMEROL AdvReac Severe NAUSEA & Uncoded 01/29/20 16:24 VOMITING Assessment & Plan Assessment & Plan (1) Bipolar 1 disorder: Status: Acute Code(s): F31.9 - Bipolar disorder, unspecified Plan Meredith is a 46 y.o. Female who carries a dx of Bipolar I DO. She presented to [facility] [place] [facility] on 01/31/2022 due to mood lability in context of recent medication changes. Pt was tapered off off lithium 2 months ago due to renal impairment, nephrocalcinosis. She was recently started on Vraylar but does not feel like the dosage is sufficient and her OP psych provider recommended she come to the hospital to have her meds adjusted in a safe setting. Per crisis eval, pt stated my life revolves around medical issues and appointments and she often doesn't focus on her mental health needs. Pt endorsed passive SI but denies plan or intent. Hx of IPLOC at [facility] [place] [facility] in 01/2021 due to mixed episode. Utox negative. No alcohol abuse. Plan: Increase vraylar to 4.5 mg for mood stability. Pt understands this medication has a long half life, will take some time to notice efficacy. On cogentin, as pt says she has a ?lip quiver? and ?tremor? with vraylar. Will increase trileptal to 450 mg BID to target mood instability, as she says this med has been helpful thus far and she is interested in trialing a higher dose. On topamax for migraines, has OP neurologist following. Says hydroxyzine helps with sleep. 02/03: No med changes, monitor increase in trileptal and vraylar for benefit. Placed ortho consult, as pt is complaining of pain in R ankle s/p sprain, unable to wt bear. 02/04 Patient feels mood is significantly better and she is asking for discharge. -restarted Metformin ER 500mg qhs -fasting blood sugars, bun/cr 02/05 Mood is good, no SI, looking for to discharge -fasting blood sugar this morning 133 Q15 min safety checks, CV Monitor response to medications. Monitor for safety in the milieu. Discharge on stabilization. Patient seen. Chart reviewed. Discussed with team. Obtain collateral contact info?as needed I spent minutes with the patient and/or on the patient floor today, greater than?50% of which was spent counseling/coordinating care. Patient educated on: diagnosis, medication risk/benefits and medical condition Informed Consent: understands Reason for contiued inpatient stay Substantial Risk for: stable for discharge
[2022-02-05 18:00] VITALS: BP 120/84; PULSE 103; RESP 18; TEMP 36.9; O2SAT 98
[2022-02-05] MEDS: metFORMIN HCl ER 500 MG TAB.ER.24H PO (18:00)
[2022-02-05] MEDS: Atorvastatin Calcium 10 MG TABLET PO (20:36)
[2022-02-05] MEDS: Montelukast Sodium 10 MG TABLET PO (20:36)
[2022-02-05] MEDS: hydrOXYzine HCL 10 MG TABLET 30 MG PO (20:36)
[2022-02-05] MEDS: Topiramate 100 MG TABLET 200 MG PO (20:36)
[2022-02-06 06:00] VITALS: BP 102/72; PULSE 91; RESP 18; TEMP 36.9; O2SAT 96
[2022-02-06] MEDS: Docusate Sodium 100 MG CAPSULE PO (06:18)
[2022-02-06] MEDS: Topiramate 25 MG TABLET 50 MG PO (08:20)
[2022-02-06] MEDS: Cariprazine HCl 1.5 MG CAPSULE 4.5 MG PO (08:21)
[2022-02-06] MEDS: Colchicine 0.6 MG TABLET PO (08:21)
[2022-02-06] MEDS: hydroCHLOROthiazide 25 MG TABLET PO (08:21)
[2022-02-06] MEDS: Omeprazole 40 MG CAPSULE.DR PO (08:21)
[2022-02-06] MEDS: OXcarbazepine 150 MG TABLET 450 MG PO (08:21)
[2022-02-06] MEDS: Benztropine Mesylate 0.5 MG TABLET PO (08:21)
[2022-02-06 08:26] LABS: Blood Urea Nitrogen 30 mg/dL (9-16); Glucose Fasting 148 mg/dL (60-99)
[2022-02-06 12:37] LABS: Creatinine Clr Calc Pharmacy 63.4; Estimated Glomerular Filt Rate 53
--- NOTE | 2022-02-07 16:48 | P.DS_ITS ---
DS: Providers Provider Date of Service: 02/06/22 Date of admission: 02/01/22 19:17 Date of discharge: 02/06/22 Primary care physician: Bernie Aquino NP Admitting clinician: Chelsey Lizarraga Attending physician on admission: Kevin Bravo Consults: 02/03/22 20:57 Consult to Orthopedics Routine Consulting Provider: Latisha Torres Reason for consultation: persistent pain s/p R ankle sprain, cant bear weight Attending physician on discharge: Kevin Bravo Discharging clinician: Emma Wong DS: Diagnosis Discharge Diagnosis (1) Bipolar 1 disorder: Status: Acute DS: Medications Discharge Medications Home Medications: Home Medications Medication Instructions Recorded Confirmed atorvastatin 10 mg tablet 1 tab PO DAILY 01/31/22 01/31/22 benztropine 0.5 mg tablet 1 tab PO BID 01/31/22 01/31/22 colchicine 0.6 mg tablet 1 tab PO BID 01/31/22 01/31/22 dulaglutide 0.75 mg/0.5 mL 0.5 ml subcut QWEEK 01/31/22 01/31/22 subcutaneous pen injector (Trulicity) hydrochlorothiazide 25 mg tablet 1 tab PO DAILY 01/31/22 01/31/22 hydroxyzine HCl 10 mg tablet 3 tab PO BEDTIME 01/31/22 01/31/22 ipratropium 20 mcg-albuterol 100 1 puff inhalation QID PRN Wheezing 01/31/22 01/31/22 mcg/actuation mist for inhalation (Combivent Respimat) lamotrigine 200 mg tablet,extended 2 tab PO BEDTIME 01/31/22 01/31/22 release 24 hr montelukast 10 mg tablet 1 tab PO QPM 01/31/22 01/31/22 norethindrone (contraceptive) 0.35 1 tab PO DAILY 01/31/22 01/31/22 mg tablet omeprazole 40 mg capsule,delayed 1 cap PO BID 01/31/22 01/31/22 release topiramate 50 mg tablet 50 mg PO QAM 01/31/22 01/31/22 topiramate 50 mg tablet 200 mg PO BEDTIME 01/31/22 01/31/22 calcium citrate 200 mg (950 mg) 400 mg PO DAILY 02/01/22 02/01/22 tablet Previous Rx's Medication Instructions Recorded cariprazine 4.5 mg capsule 4.5 mg PO DAILY #30 caps 02/06/22 (Vraylar) docusate sodium 100 mg capsule 100 mg PO TID #90 caps 02/06/22 metformin 500 mg tablet 500 mg PO BID #14 tabs 02/06/22 oxcarbazepine 150 mg tablet 450 mg PO BID #180 tabs 02/06/22 Mental Status Exam Mental Status Exam Narrative: A&O. Overweight, dyed hair, R ankle orthopedic boot. Good eye contact, attentive. No Tics or Tremors. No abnormal involuntary movements. Calm, cooperative, engaged. Non-pressured speech, spontaneous with regular rate and rhythm, normal volume and prosody. No prolonged speech latency or dysarthria. Mood is ?good,? affect is appropriate. Denies SI/SIB/HI upon inquiry. Denies A/VH or delusional thought content. Thoughts are coherent, organized. No known cognitive or memory impairment. Insight/ Judgment fair and adequate. Data Data Completed and Pending Completed studies during hospitalization [Text1]: 01/31/22 01/31/22 01/31/22 17:56 17:56 17:56 WBC RBC Hgb Hct MCV MCH MCHC RDW Plt Count MPV Immature Gran % (Auto) Neut % (Auto) Lymph % (Auto) [place] % (Auto) Eos % (Auto) Baso % (Auto) Lymph # (Auto) [place] # (Auto) Eos # (Auto) Baso # (Auto) Abs Immat Gran (auto) Absolute Neuts (auto) Absolute Nucleated RBC Nucleated RBC % (auto) Sodium Potassium Chloride Carbon Dioxide Anion Gap BUN Creatinine Estim Creat Clear Calc Estimated GFR Random Glucose Fasting Glucose Estimat Average Glucose Hemoglobin A1c % Calcium Total Bilirubin Direct Bilirubin AST ALT Alkaline Phosphatase Total Creatine Kinase Total Protein Albumin Triglycerides Cholesterol LDL Cholesterol, Calc HDL Cholesterol Lipase Vitamin B12 Folate TSH Free T4 Urine Color Yellow Urine Appearance Clear Urine pH 6.0 Ur Specific [place] <= 1.005 Urine Protein Negative Urine Glucose (UA) Negative Urine Ketones Negative Urine Blood Negative Urine Nitrite Negative Ur Leukocyte Esterase Moderate (2+) H Urine RBC 0-2 Urine WBC 6-10 H Ur Squamous Epith Cells 0-2 Urine Bacteria None Seen Hyaline Casts 0-2 Urine Test Urine Opiates Screen Not Detected Urine Fentanyl Screen Not Detected Ur Barbiturates Screen Not Detected Ur Phencyclidine Scrn Not Detected Ur Amphetamines Screen Not Detected U Benzodiazepines Scrn Not Detected Urine Cocaine Screen Not Detected U Marijuana (THC) Screen Not Detected COVID-19 (ANDRES) Negative COVID-19 Clin Com See Note 01/31/22 01/31/22 01/31/22 17:56 18:51 18:51 WBC 7.9 RBC 4.92 Hgb 13.1 Hct 39.9 MCV 81.1 MCH 26.6 L MCHC 32.8 RDW 14.0 Plt Count 278 MPV 10.6 Immature Gran % (Auto) 0.3 Neut % (Auto) 64.0 Lymph % (Auto) 23.2 [place] % (Auto) 8.2 Eos % (Auto) 3.2 Baso % (Auto) 1.1 Lymph # (Auto) 1.8 [place] # (Auto) 0.7 Eos # (Auto) 0.3 Baso # (Auto) 0.1 Abs Immat Gran (auto) 0.02 Absolute Neuts (auto) 5.1 Absolute Nucleated RBC 0.000 Nucleated RBC % (auto) 0.0 Sodium 141 Potassium 2.8 L Chloride 104 Carbon Dioxide 20 L Anion Gap 20 BUN 19 H Creatinine 1.20 Estim Creat Clear Calc 58.3 Estimated GFR 48 Random Glucose 229 H Fasting Glucose Estimat Average Glucose Hemoglobin A1c % Calcium 9.7 Total Bilirubin 0.3 Direct Bilirubin < 0.2 AST 18 ALT 32 H Alkaline Phosphatase 115 Total Creatine Kinase Total Protein 7.2 Albumin 4.7 Triglycerides Cholesterol LDL Cholesterol, Calc HDL Cholesterol Lipase 29 Vitamin B12 Folate TSH Free T4 Urine Color Urine Appearance Urine pH Ur Specific [place] Urine Protein Urine Glucose (UA) Urine Ketones Urine Blood Urine Nitrite Ur Leukocyte Esterase Urine RBC Urine WBC Ur Squamous Epith Cells Urine Bacteria Hyaline Casts Urine Test NEGATIVE Urine Opiates Screen Urine Fentanyl Screen Ur Barbiturates Screen Ur Phencyclidine Scrn Ur Amphetamines Screen U Benzodiazepines Scrn Urine Cocaine Screen U Marijuana (THC) Screen COVID-19 (ANDRES) COVID-19 Clin Com 02/01/22 02/02/22 02/02/22 08:13 07:41 07:41 WBC RBC Hgb Hct MCV MCH MCHC RDW Plt Count MPV Immature Gran % (Auto) Neut % (Auto) Lymph % (Auto) [place] % (Auto) Eos % (Auto) Baso % (Auto) Lymph # (Auto) [place] # (Auto) Eos # (Auto) Baso # (Auto) Abs Immat Gran (auto) Absolute Neuts (auto) Absolute Nucleated RBC Nucleated RBC % (auto) Sodium 142 Potassium 3.5 D 3.4 Chloride 107 Carbon Dioxide 21 L Anion Gap 17 BUN 22 H Creatinine 1.19 Estim Creat Clear Calc 58.8 Estimated GFR 49 Random Glucose Fasting Glucose 174 H Estimat Average Glucose 128 Hemoglobin A1c % 6.1 Calcium 9.8 Total Bilirubin 0.4 Direct Bilirubin < 0.2 AST 29 D ALT 38 H Alkaline Phosphatase 120 H Total Creatine Kinase Total Protein 7.2 Albumin 4.6 Triglycerides 324 Cholesterol 285 LDL Cholesterol, Calc 182 HDL Cholesterol 39 Lipase Vitamin B12 Folate TSH 2.36 Free T4 0.80 Urine Color Urine Appearance Urine pH Ur Specific [place] Urine Protein Urine Glucose (UA) Urine Ketones Urine Blood Urine Nitrite Ur Leukocyte Esterase Urine RBC Urine WBC Ur Squamous Epith Cells Urine Bacteria Hyaline Casts Urine Test Urine Opiates Screen Urine Fentanyl Screen Ur Barbiturates Screen Ur Phencyclidine Scrn Ur Amphetamines Screen U Benzodiazepines Scrn Urine Cocaine Screen U Marijuana (THC) Screen COVID-19 (ANDRES) COVID-19 Clin Com 02/02/22 02/05/22 02/06/22 07:41 08:07 07:48 WBC RBC Hgb Hct MCV MCH MCHC RDW Plt Count MPV Immature Gran % (Auto) Neut % (Auto) Lymph % (Auto) [place] % (Auto) Eos % (Auto) Baso % (Auto) Lymph # (Auto) [place] # (Auto) Eos # (Auto) Baso # (Auto) Abs Immat Gran (auto) Absolute Neuts (auto) Absolute Nucleated RBC Nucleated RBC % (auto) Sodium Potassium Chloride Carbon Dioxide Anion Gap BUN 30 H Creatinine 1.11 Estim Creat Clear Calc 63.4 Estimated GFR 53 Random Glucose Fasting Glucose 133 H 148 H Estimat Average Glucose Hemoglobin A1c % Calcium Total Bilirubin Direct Bilirubin AST ALT Alkaline Phosphatase Total Creatine Kinase 61 Total Protein Albumin Triglycerides Cholesterol LDL Cholesterol, Calc HDL Cholesterol Lipase Vitamin B12 617 Folate 13.6 TSH Free T4 Urine Color Urine Appearance Urine pH Ur Specific [place] Urine Protein Urine Glucose (UA) Urine Ketones Urine Blood Urine Nitrite Ur Leukocyte Esterase Urine RBC Urine WBC Ur Squamous Epith Cells Urine Bacteria Hyaline Casts Urine Test Urine Opiates Screen Urine Fentanyl Screen Ur Barbiturates Screen Ur Phencyclidine Scrn Ur Amphetamines Screen U Benzodiazepines Scrn Urine Cocaine Screen U Marijuana (THC) Screen COVID-19 (ANDRES) COVID-19 Clin Com 02/01/22 00:00 Urine clean catch - Urine mcknight top Urine Culture - Final Imaging Diagnostic Imaging Impressions Ankle X-Ray 02/04/22 09:35 IMPRESSION: No acute fracture or dislocation. DS: Summary Hospital Course Hospital Course: Admission to adult psychiatry for exacerbation of Bipolar Disorder. Trileptal and Vraylar were titrated during the admission. Lamictal, topiramate and Benztropine were continued. Time spent discussing smoking cessation with patient: 3 to 10 minutes Status at Discharge Functional status at discharge: independent ambulation Overall status at discharge: patient is progressing back to baseline Time Spent with Patient Time attestation: Total time spent providing and/or coordinating discharge services: 35 Time spent: Greater than 30 minutes Discharge Plan Discharge Anticipated Discharge Date/Time: 02/06/22 12:22 Patient Disposition: Home, Self-Care Discharge Diagnosis: Bipolar Disorder, type I Referrals: BRITNI Galvez APRN [Other] - 1 Week (Follow-up discharge appointment with psychiatric medication provider ) Bernie Aquino NP [Primary Care Provider] - 03/16/22 12:50 pm (03/16/2022 at 12:50) Discharge Medications: New oxcarbazepine 150 mg Tablet 450 mg PO BID Qty: 180 0RF docusate sodium 100 mg Capsule 100 mg PO TID Qty: 90 0RF metformin 500 mg tablet 500 mg PO BID Qty: 14 3RF Vraylar 4.5 mg capsule 4.5 mg PO DAILY Qty: 30 0RF Continued benztropine 0.5 mg tablet 1 tab PO BID atorvastatin 10 mg tablet 1 tab PO DAILY omeprazole 40 mg capsule,delayed release(DR/EC) 1 cap PO BID hydrochlorothiazide 25 mg tablet 1 tab PO DAILY colchicine 0.6 mg tablet 1 tab PO BID norethindrone (contraceptive) 0.35 mg tablet 1 tab PO DAILY hydroxyzine HCl 10 mg tablet 3 tab PO BEDTIME topiramate 50 mg tablet 50 mg PO QAM lamotrigine 200 mg tablet extended release 24hr 2 tab PO BEDTIME topiramate 50 mg tablet 200 mg PO BEDTIME montelukast 10 mg tablet 1 tab PO QPM Combivent Respimat 20-100 mcg/actuation mist 1 puff INHALATION QID PRN (Reason: Wheezing) Trulicity 0.75 mg/0.5 mL pen injector 0.5 ml subcut QWEEK calcium citrate 200 mg (950 mg) Tablet 400 mg PO DAILY Discontinued oxcarbazepine 300 mg tablet 1 tab PO BID Vraylar 3 mg Capsule 3 mg PO DAILY Discharge Orders: Discharge Order (Routine); Ordered 02/06/22 Ordered By: Emma Wong Diet: Diabetic diet Activity on Discharge: As tolerated Stand Alone Forms: Patient Portal Discharge page, Community Support Care Plan Goals: Maintain mood and safe behaviors Take medications as directed Practice coping skills Continue with out patient providers Health Concerns: Mood and behavioral stabilization Plan of Treatment: Follow up with out patient psychiatric and medical providers, PCP Take medications as directed Call/Return as needed Assessment: CECY Chapin SI. She is euthymic, non-psychotic She has a structured discharge plan for returning home and goals in place Discharge Date/Time: 02/06/22 15:11
== END 2022-02-06 15:11 | disposition home or self-care (01) | DRG 753 ==
LOC: HO.ED 02-01 12:05 → HO.PM5 02-01 19:30
PROVIDERS: Emergency Medicine; Nurse Practitioner Family; Psychiatry & Neurology Psychiatry; Admitting Provider Psychiatry & Neurology Psychiatry; Emergency Provider Emergency Medicine; PCP Nurse Practitioner Family; Visit Provider Registered Nurse
DX: F31.9 Bipolar disorder, unspecified (principal); E11.9 Type 2 diabetes mellitus without complications; Z87.01 Personal history of pneumonia (recurrent); E78.5 Hyperlipidemia, unspecified; F41.9 Anxiety disorder, unspecified; F43.10 Post-traumatic stress disorder, unspecified; G43.829 Menstrual migraine, not intractable, without status migrainosus; Z20.822 Contact with and (suspected) exposure to COVID-19; Z88.5 Allergy status to narcotic agent; Z88.8 Allergy status to other drugs, medicaments and biological substances; Z79.3 Long term (current) use of hormonal contraceptives; Z79.84 Long term (current) use of oral hypoglycemic drugs; Z79.899 Other long term (current) drug therapy
CPT/HCPCS: 36415; 73610; 80048; 80053; 80061; 80076; 80307; 81001; 81025; 82550; 82565; 82607; 82746; 82947; 83036; 83690; 84132; 84439; 84443; 84520; 85025; 87086; 87635; 90792; 93005; 99285

== ENCOUNTER 2023-04-23 11:51 | Outpatient (AMB) | payer BC, MEDICARE, MEDICAID, SELFPAY ==
--- NOTE | 2023-04-23 11:53 | HO.NEPHOV_ITS ---
HPI HPI Comments History of Present Illness Details Meredith is a pleasant 47-year-old woman with a history of immunodeficiency and currently disease IV immunoglobulins. She has a history of bipolar disorder and has been on lithium for several years. 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 Serum creatinine has been stable around 1.0. [place] was discontinued. She is currently on Vraylar. She has developed symptoms of TD. The plan is to switch her back to lithium as per her psychiatrist. She underwent a partial thyroidectomy on 01/06/2022. History of papillary thyroid Ca She disease IV hemoglobin every 3 weeks for immunodeficiency. History of medullary calcinosis of the kidneys. She has been on topiramate for several years. 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 Surgical History History of umbilical hernia repair History of dilation and curettage History of arthroscopy History of oral surgery History of delivery Social History Household Members: Family Housing: House Do you presently have visiting nurse or other home services: No Patient Tobacco Use Status: Never used Tobacco e-Cigarette/Vaping Use: Never Used service: No Sexual orientation: Straight/Heterosexual Vital Signs 04/23/23 11:54 Height 5 ft 4 in Weight 177 lb 2 oz BMI 30.4 BP 108/70 Blood Pressure Location Rt brachial Position Sitting Pulse 92 Pulse Source Pulse Oximeter Pulse Oximetry (%) 96 Oxygen Delivery Method Room Air Physical Exam Vital Signs: Last Vital Signs Pulse 92 04/23/23 11:54 BP 108/70 04/23/23 11:54 Pulse Ox 96 04/23/23 11:54 Oxygen Delivery Method Room Air 04/23/23 11:54 BMI result Body Mass Index 30.4 Const General: comfortable Nutritional Appearance: well nourished Orientation/consciousness: patient oriented x3 HEENT Head: No normal to inspection Mouth: moist mucous membranes Neck Neck: Yes supple and Yes no JVD Resp Auscultation: clear to auscultation bilaterally, no rales and rub present Cardio Jugular venous distension: no JVD Palpation: no palpable S3 and no palpable S4 Heart sounds: no rubs GI Palpation (GI): Soft to palpation and nontender Percussion: No Fluid wave present General: Yes no CVA tenderness Back/Spine/Pelvis Back: no CVA tenderness Skin General skin exam: no rashes or lesions noted Neuro General: patient oriented x3 Extrem General: Yes no pedal edema and No clubbing Assessment & Plan Assessment & Plan (1) Nephrogenic diabetes insipidus: Code(s): N25.1 - Nephrogenic diabetes insipidus Plan 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 The polyuria is under control while she is on amiloride. Renal function has been stable as well. She is clearly at risk for ongoing in renal injury from lithium however it seems like this might be the only option to treat her bipolar illness. I have ordered a 24 hour urine collection to quantify the volume and to check osmolarity. Juanita understands the risks and benefits of going back on lithium. If lithium needs to be restarted I would recommend starting her on a low-dose an d monitor the renal function periodically. Dose can be titrated cautiously. She should continue with the low-sodium diet as well. For now I will continue the amiloride. Orders: Orders Creatinine, 24 Hr Group Today N25.1 - Nephrogenic diabetes insipidus Sodium, 24Hr Urine Group Today N25.1 - Nephrogenic diabetes insipidus Osmolality Urine Today N25.1 - Nephrogenic diabetes insipidus Coding Level of Care Code Est Pt Level 4 (26951) Diagnoses Nephrogenic diabetes insipidus N25.1 Results Reviewed Nephrology Results: Hgb 13.1 g/dl (12.0-16.0) 01/31/22 WBC 7.9 X10*3/uL (4.8-10.8) 01/31/22 Plt Count 278 X10*3/uL (160-400) 01/31/22 Sodium 142 mmol/L (135-145) 02/02/22 Potassium 3.4 mmol/L (3.3-5.1) 02/02/22 Chloride 107 mmol/L (96-108) 02/02/22 Carbon Dioxide 21 mmol/L (22-29) L 02/02/22 BUN 30 mg/dL (9-16) H 02/06/22 Creatinine 1.11 mg/dL (0.5-1.4) 02/06/22 Calcium 9.8 mg/dL (8.4-10.2) 02/02/22 Urine Protein Negative mg/dL (Neg-Trace) 01/31/22
[2023-04-23 11:54] VITALS: BP 108/70; PULSE 92; O2SAT 96; BMI 30.4
== END 2023-04-23 12:19 | disposition home or self-care (01) ==
PROVIDERS: PCP Nurse Practitioner Family; Visit Provider Internal Medicine Hypertension Specialist
DX: N25.1 Nephrogenic diabetes insipidus (principal)
CPT/HCPCS: 99214

== ENCOUNTER → 2023-04-23 11:51 | Outpatient (BNVA) | payer BC, MEDICARE, MEDICAID, SELFPAY | PROVIDERS: PCP Nurse Practitioner Family; Visit Provider Internal Medicine Hypertension Specialist ==

== ENCOUNTER 2023-05-28 10:24 | Outpatient (AMB) | payer BC, MEDICARE, MEDICAID, SELFPAY ==
--- NOTE | 2023-05-28 10:25 | HO.NEPHOV ---
HPI HPI Comments History of Present Illness Details Meredith is a pleasant 47-year-old woman with a history of immunodeficiency and currently disease IV immunoglobulins. She has a history of bipolar disorder and has been on lithium for several years. 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 Serum creatinine has been stable around 1.0. [place] was discontinued. She is currently on Vraylar. She has developed symptoms of TD. The plan is to switch her back to lithium as per her psychiatrist. She underwent a partial thyroidectomy on 01/06/2022. History of papillary thyroid Ca She disease IV hemoglobin every 3 weeks for immunodeficiency. History of medullary calcinosis of the kidneys. She has been on topiramate for several years. 05/28/23 Recently admitted with Campylobacter Jejuni Had diarrhea Ca and K was low 24 hr urine showed a volume of 4600 ml !! PFS Medical History (Updated 05/01/23 @ 00:03 by James Oviedo) Acute anxiety Depression History of recurrent pneumonia History of Pseudomonas pneumonia Bipolar disorder Menstrual migraine Allergic asthma Dyslipidemia Type 2 diabetes mellitus FMF (familial Mediterranean fever) Primary immunodeficiency disorder Surgical History (Updated 05/28/23 @ 10:45 by Tierney Rojo) History of ankle surgery History of umbilical hernia repair History of dilation and curettage History of arthroscopy History of oral surgery History of delivery Social History Household Members: Family Housing: House Do you presently have visiting nurse or other home services: No Patient Tobacco Use Status: Never used Tobacco e-Cigarette/Vaping Use: Never Used service: No Sexual orientation: Straight/Heterosexual Vital Signs 05/28/23 10:26 Height 5 ft 4 in Weight 172 lb BMI 29.5 BP 102/74 Blood Pressure Location Lt brachial Position Sitting Pulse 89 Pulse Source Pulse Oximeter Pulse Oximetry (%) 97 Oxygen Delivery Method Room Air Physical Exam Vital Signs: Last Vital Signs Pulse 89 05/28/23 10:26 BP 102/74 05/28/23 10:26 Pulse Ox 97 05/28/23 10:26 Oxygen Delivery Method Room Air 05/28/23 10:26 BMI result Body Mass Index 29.5 Assessment & Plan Assessment & Plan (1) Nephrogenic diabetes insipidus: Code(s): N25.1 - Nephrogenic diabetes insipidus Plan 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 The polyuria is under control while she is on amiloride. Renal function has been stable as well. She is clearly at risk for ongoing in renal injury from lithium however it seems like this might be the only option to treat her bipolar illness. 24 hour urine collection showed a volume of 4600 and urine osmolarity of 220 Juanita understands the risks and benefits of going back on lithium. If lithium needs to be restarted I would recommend starting her on a low-dose and monitor the renal function periodically. Dose can be titrated cautiously. She should continue with the low-sodium diet as well. For now I will continue the amiloride. Given the polyuria, iwould increase AMiloride ot 10 mg QD Stay on low salt diet Given the h/o renal stones , would not add Calcium tabs Shall follow levels Orders: Orders Calcium 3 Months N25.1 - Nephrogenic diabetes insipidus Parathyroid Hormone Intact 3 Months N25.1 - Nephrogenic diabetes insipidus Electrolytes 3 Months N25.1 - Nephrogenic diabetes insipidus Blood Urea Nitrogen 3 Months N25.1 - Nephrogenic diabetes insipidus Creatinine 3 Months N25.1 - Nephrogenic diabetes insipidus Vitamin D 25-OH (D2 and D3) 3 Months N25.1 - Nephrogenic diabetes insipidus Phosphorus 3 Months N25.1 - Nephrogenic diabetes insipidus Coding Level of Care Code Est Pt Level 4 (51132) Diagnoses Nephrogenic diabetes insipidus N25.1 Results Reviewed Nephrology Results: Hgb 13.1 g/dl (12.0-16.0) 01/31/22 WBC 7.9 X10*3/uL (4.8-10.8) 01/31/22 Plt Count 278 X10*3/uL (160-400) 01/31/22 Sodium 142 mmol/L (135-145) 02/02/22 Potassium 3.4 mmol/L (3.3-5.1) 02/02/22 Chloride 107 mmol/L (96-108) 02/02/22 Carbon Dioxide 21 mmol/L (22-29) L 02/02/22 BUN 30 mg/dL (9-16) H 02/06/22 Creatinine 1.11 mg/dL (0.5-1.4) 02/06/22 Calcium 9.8 mg/dL (8.4-10.2) 02/02/22 Urine Protein Negative mg/dL (Neg-Trace) 01/31/22
[2023-05-28 10:26] VITALS: BP 102/74; PULSE 89; O2SAT 97; BMI 29.5
== END 2023-05-28 10:57 | disposition home or self-care (01) ==
PROVIDERS: PCP Nurse Practitioner Family; Visit Provider Internal Medicine Hypertension Specialist
DX: N25.1 Nephrogenic diabetes insipidus (principal)
CPT/HCPCS: 99214

== ENCOUNTER → 2023-05-28 10:24 | Outpatient (BNVA) | payer BC, MEDICARE, MEDICAID, SELFPAY | PROVIDERS: PCP Nurse Practitioner Family; Visit Provider Internal Medicine Hypertension Specialist ==

== ENCOUNTER 2023-07-23 10:58 | Outpatient (AMB) | payer BC, MEDICARE, MEDICAID, SELFPAY ==
[2023-07-23 11:08] VITALS: BP 116/84; PULSE 96; O2SAT 99; BMI 30.2
--- NOTE | 2023-07-23 11:08 | HO.NEPHOV ---
HPI HPI Comments History of Present Illness Details Meredith is a pleasant 47-year-old woman with a history of immunodeficiency and currently disease IV immunoglobulins. She has a history of bipolar disorder and has been on lithium for several years. 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 Serum creatinine has been stable around 1.0. [place] was discontinued. She is currently on Vraylar. She has developed symptoms of TD. The plan is to switch her back to lithium as per her psychiatrist. She underwent a partial thyroidectomy on 01/06/2022. History of papillary thyroid Ca She disease IV hemoglobin every 3 weeks for immunodeficiency. History of medullary calcinosis of the kidneys. She has been on topiramate for several years. 05/28/23 Recently admitted with Campylobacter Jejuni Had diarrhea Ca and K was low 24 hr urine showed a volume of 4600 ml !! 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 Surgical History History of ankle surgery History of umbilical hernia repair History of dilation and curettage History of arthroscopy History of oral surgery History of delivery Social History Household Members: Family Housing: House Do you presently have visiting nurse or other home services: No Patient Tobacco Use Status: Never used Tobacco e-Cigarette/Vaping Use: Never Used service: No Sexual orientation: Straight/Heterosexual Vital Signs 07/23/23 11:08 Height 5 ft 4 in Weight 176 lb 4 oz BMI 30.2 BP 116/84 Blood Pressure Location Rt brachial Position Sitting Pulse 96 Pulse Source Pulse Oximeter Pulse Oximetry (%) 99 Oxygen Delivery Method Room Air Physical Exam Vital Signs: Last Vital Signs Pulse 96 07/23/23 11:08 BP 116/84 07/23/23 11:08 Pulse Ox 99 07/23/23 11:08 Oxygen Delivery Method Room Air 07/23/23 11:08 BMI result Body Mass Index 30.2 Const General: comfortable Nutritional Appearance: well nourished Orientation/consciousness: patient oriented x3 HEENT Head: No normal to inspection Mouth: moist mucous membranes Neck Neck: Yes supple and Yes no JVD Resp Auscultation: clear to auscultation bilaterally, no rales and rub present Cardio Jugular venous distension: no JVD Palpation: no palpable S3 and no palpable S4 Heart sounds: no rubs GI Palpation (GI): Soft to palpation and nontender Percussion: No Fluid wave present General: Yes no CVA tenderness Back/Spine/Pelvis Back: no CVA tenderness Skin General skin exam: no rashes or lesions noted Neuro General: patient oriented x3 Extrem General: Yes no pedal edema and No clubbing Assessment & Plan Assessment & Plan (1) Nephrogenic diabetes insipidus: Code(s): N25.1 - Nephrogenic diabetes insipidus Plan 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 The polyuria is under control while she is on amiloride. Renal function has been stable as well. She is clearly at risk for ongoing in renal injury from lithium however it seems like this might be the only option to treat her bipolar illness. 24 hour urine collection showed a volume of 4600 and urine osmolarity of 220 risks and benefits of going back on lithium was explained and she is back on [place] since May 2023 Watch renal function and UO while on [place] She should continue with the low-sodium diet as well. Keep AMiloride at 10 mg QD Stay on low salt diet Given the h/o renal stones , would not add Calcium tabs Shall follow levels Orders: Orders UA and rflx microscopic 3 Months N25.1 - Nephrogenic diabetes insipidus Basic Metabolic Panel 3 Months N25.1 - Nephrogenic diabetes insipidus Coding Level of Care Code Est Pt Level 4 (74148) Diagnoses Nephrogenic diabetes insipidus N25.1 Results Reviewed Nephrology Results: Hgb 13.1 g/dl (12.0-16.0) 01/31/22 WBC 7.9 X10*3/uL (4.8-10.8) 01/31/22 Plt Count 278 X10*3/uL (160-400) 01/31/22 Sodium 142 mmol/L (135-145) 02/02/22 Potassium 3.4 mmol/L (3.3-5.1) 02/02/22 Chloride 107 mmol/L (96-108) 02/02/22 Carbon Dioxide 21 mmol/L (22-29) L 02/02/22 BUN 30 mg/dL (9-16) H 02/06/22 Creatinine 1.11 mg/dL (0.5-1.4) 02/06/22 Calcium 9.8 mg/dL (8.4-10.2) 02/02/22 Urine Protein Negative mg/dL (Neg-Trace) 01/31/22
== END 2023-07-23 11:27 | disposition home or self-care (01) ==
PROVIDERS: PCP Nurse Practitioner Family; Visit Provider Internal Medicine Hypertension Specialist
DX: N25.1 Nephrogenic diabetes insipidus (principal)
CPT/HCPCS: 99214

== ENCOUNTER → 2023-07-23 10:58 | Outpatient (BNVA) | payer BC, MEDICARE, MEDICAID, SELFPAY | PROVIDERS: PCP Nurse Practitioner Family; Visit Provider Internal Medicine Hypertension Specialist ==

== ENCOUNTER 2023-08-20 10:25 | Outpatient (AMB) | payer BC, MEDICARE, MEDICAID, SELFPAY ==
[2023-08-20 10:27] VITALS: BP 112/72; PULSE 88; O2SAT 97; BMI 29.9
--- NOTE | 2023-08-20 10:27 | HO.NEPHOV_ITS ---
HPI HPI Comments History of Present Illness Details Meredith is a pleasant 47-year-old woman with a history of immunodeficiency and currently disease IV immunoglobulins. She has a history of bipolar disorder and has been on lithium for several years. 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 Serum creatinine has been stable around 1.0. [place] was discontinued. She is currently on Vraylar. She has developed symptoms of TD. The plan is to switch her back to lithium as per her psychiatrist. She underwent a partial thyroidectomy on 01/06/2022. History of papillary thyroid Ca She disease IV hemoglobin every 3 weeks for immunodeficiency. History of medullary calcinosis of the kidneys. She has been on topiramate for several years. 05/28/23 Recently admitted with Campylobacter Jejuni Had diarrhea Ca and K was low 24 hr urine showed a volume of 4600 ml ! ! 07/23/23 Amiloride was increased in May UO has decreased She has cut back on soda Now she is back on [place] since May 2023 08/20/23 Recently she had 2 sinus infections treated with antibiotics without much improvement. She has an appointment with ENT in end of September. She has had some nausea and vomiting. P.o. intake has been suboptimal. Creatinine was 1.06 and BUN bumped up to 27 and she he is here for further evaluation. Baseline BUN is around 18 mg/dL. Creatinine stable around 1.0 mg/dL [facility] Medical History (Updated 05/01/23 @ 00:03 by James Oviedo) Acute anxiety Depression History of recurrent pneumonia History of Pseudomonas pneumonia Bipolar disorder Menstrual migraine Allergic asthma Dyslipidemia Type 2 diabetes mellitus FMF (familial Mediterranean fever) Primary immunodeficiency disorder Surgical History History of ankle surgery History of umbilical hernia repair History of dilation and curettage History of arthroscopy History of oral surgery History of delivery Social History Household Members: Family Housing: House Do you presently have visiting nurse or other home services: No Patient Tobacco Use Status: Never used Tobacco e-Cigarette/Vaping Use: Never Used service: No Sexual orientation: Straight/Heterosexual Vital Signs 08/20/23 10:27 Height 5 ft 4 in Weight 174 lb 2 oz BMI 29.9 BP 112/72 Blood Pressure Location Lt brachial Position Sitting Pulse 88 Pulse Source Pulse Oximeter Pulse Oximetry (%) 97 Oxygen Delivery Method Room Air Physical Exam Vital Signs: Last Vital Signs Pulse 88 08/20/23 10:27 BP 112/72 08/20/23 10:27 Pulse Ox 97 08/20/23 10:27 Oxygen Delivery Method Room Air 08/20/23 10:27 BMI result Body Mass Index 29.9 Const General: comfortable Nutritional Appearance: well nourished Orientation/consciousness: patient oriented x3 HEENT Head: No normal to inspection Mouth: moist mucous membranes Neck Neck: Yes supple and Yes no JVD Resp Auscultation: clear to auscultation bilaterally, no rales and rub present Cardio Jugular venous distension: no JVD Palpation: no palpable S3 and no palpable S4 Heart sounds: no rubs GI Palpation (GI): Soft to palpation and nontender Percussion: No Fluid wave present General: Yes no CVA tenderness Back/Spine/Pelvis Back: no CVA tenderness Skin General skin exam: no rashes or lesions noted Neuro General: patient oriented x3 Extrem General: Yes no pedal edema and No clubbing Assessment & Plan Assessment & Plan (1) Nephrogenic diabetes insipidus: Code(s): N25.1 - Nephrogenic diabetes insipidus Plan 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 The polyuria is under control while she is on amiloride. Renal function has been stable as well. She is clearly at risk for ongoing in renal injury from lithium however it seems like this might be the only option to treat her bipolar illness. 24 hour urine collection showed a volume of 4600 and urine osmolarity of 220 risks and benefits of going back on lithium was explained and she is back on L ithium since May 2023 Watch renal function and UO while on [place] She should continue with the low-sodium diet as well. Keep AMiloride at 10 mg QD Stay on low salt diet Given the h/o renal stones , would not add Calcium tabs Shall follow levels 08/20/23 The bump in BUN is most likely due to poor p.o. intake. Hemoglobin has increased from 13.3 up to 14.1 most likely due to hemoconcentration I have encouraged her to increase fluid intake. Serum creatinine stable at 1.06. Clinically volume status appears stable. She will require a 24 urine collection to quantify urine output and based on this we can adjust the p.o. fluid intake. She wants to wait a month before repeating this test. I reassured her and we will follow her in the next 6-8 weeks Orders: Orders Basic Metabolic Panel 4 Weeks N25.1 - Nephrogenic diabetes insipidus Sodium Urine Random 4 Weeks N18.9 - Chronic kidney disease, unspecified, N25.1 - Nephrogenic diabetes insipidus Osmolality Urine 4 Weeks N25.1 - Nephrogenic diabetes insipidus UA and rflx microscopic 4 Weeks N25.1 - Nephrogenic diabetes insipidus Coding Level of Care Code New Pt Level 4 (75781) Diagnoses Nephrogenic diabetes insipidus N25.1 Results Reviewed Results Reviewed: 08/09/2023 BUN 27 creatinine 1.06 Hemoglobin 14.1 Nephrology Results: Hgb 13.1 g/dl (12.0-16.0) 01/31/22 WBC 7.9 X10*3/uL (4.8-10.8) 01/31/22 Plt Count 278 X10*3/uL (160-400) 01/31/22 Sodium 142 mmol/L (135-145) 02/02/22 Potassium 3.4 mmol/L (3.3-5.1) 02/02/22 Chloride 107 mmol/L (96-108) 02/02/22 Carbon Dioxide 21 mmol/L (22-29) L 02/02/22 BUN 30 mg/dL (9-16) H 02/06/22 Creatinine 1.11 mg/dL (0.5-1.4) 02/06/22 Calcium 9.8 mg/dL (8.4-10.2) 02/02/22 Urine Protein Negative mg/dL (Neg-Trace) 01/31/22
== END 2023-08-20 10:46 | disposition home or self-care (01) ==
PROVIDERS: PCP Nurse Practitioner Family; Visit Provider Internal Medicine Hypertension Specialist
DX: N25.1 Nephrogenic diabetes insipidus (principal); N18.2 Chronic kidney disease, stage 2 (mild); Z79.899 Other long term (current) drug therapy
CPT/HCPCS: 99214

== ENCOUNTER → 2023-08-20 10:25 | Outpatient (BNVA) | payer BC, MEDICARE, MEDICAID, SELFPAY | PROVIDERS: PCP Nurse Practitioner Family; Visit Provider Internal Medicine Hypertension Specialist ==

== ENCOUNTER 2023-11-22 10:30 | Outpatient (AMB) | payer BC, MEDICARE, MEDICAID, SELFPAY ==
[2023-11-22 10:41] VITALS: BP 110/80; PULSE 90; O2SAT 97; BMI 30.4
--- NOTE | 2023-11-22 10:41 | HO.NEPHOV ---
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 Accompanied by: Self / Same As Patient Allergies adhesive [ADHESIVE] Allergy (Intermediate, Verified 11/22/23 10:46) BLISTER fluticasone [From FLONASE] Allergy (Unknown, Verified 11/22/23 10:46) unknown meperidine [Demerol] Allergy (Unknown, Verified 11/22/23 10:46) vomit metoclopramide [From REGLAN] Allergy (Unknown, Verified 11/22/23 10:46) DIPLOPIA transparent dressing Allergy (Unknown, Verified 11/22/23 10:46) rash morphine [MORPHINE] Adverse Reaction (Severe, Verified 11/22/23 10:46) NAUSEA & VOMITING TEGADERM BANDAGE Allergy (Intermediate, Uncoded 01/29/20 16:24) RASH morphine Allergy (Unknown, Uncoded 01/20/19 00:00) vomit tape Allergy (Unknown, Uncoded 01/20/19 00:00) rash From DEMEROL Adverse Reaction (Severe, Uncoded 01/29/20 16:24) NAUSEA & VOMITING Medication List - Last Reconciled 11/22/23 by Neto Cunningham MD amiloride 10 mg (2 x 5 mg) PO DAILY atorvastatin 20 mg PO DAILY cetirizine (Zyrtec) 10 mg PO DAILY PRN colchicine 1 tab PO BID galcanezumab-gnlm (Emgality Pen) mg subcut hydroxyzine HCl 3 tabs PO BEDTIME immune globulin (human) (IgG) 30 grams intravenously; ipratropium-albuterol 20-100 mcg/actuation (Combivent Respimat) 1 puff inhalation QID PRN lamotrigine ER 2 tabs PO BEDTIME levothyroxine 50 mcg PO DAILY lithium carbonate ER 450 mg PO BID melatonin 10 mg PO BEDTIME PRN montelukast 1 tab PO QPM norethindrone (contraceptive) (Incassia) 0.35 mg PO DAILY omalizumab (Xolair) 300 mg subcut Q4W omeprazole 40 mg PO DAILY ondansetron HCl 4 mg PO Q8H PRN oxcarbazepine 900 mg PO .am oxcarbazepine 750 mg PO .pm sitagliptin phosphate (Januvia) 100 mg PO DAILY topiramate 50 mg PO BID venlafaxine 50 mg PO DAILY HPI Comments Details: Meredith is a pleasant 47-year-old woman with a history of immunodeficiency and currently disease IV immunoglobulins. She has a history of bipolar disorder and has been on lithium for several years. 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 Serum creatinine has been stable around 1.0. [place] was discontinued. She is currently on Vraylar. She has developed symptoms of TD. The plan is to switch her back to lithium as per her psychiatrist. She underwent a partial thyroidectomy on 01/06/2022. History of papillary thyroid Ca She disease IV hemoglobin every 3 weeks for immunodeficiency. History of medullary calcinosis of the kidneys. She has been on topiramate for several years. 05/28/23 Recently admitted with Campylobacter Jejuni Had diarrhea Ca and K was low 24 hr urine showed a volume of 4600 ml !! 07/23/23 Amiloride was increased in May UO has decreased She has cut back on soda Now she is back on [place] since May 2023 08/20/23 Recently she had 2 sinus infections treated with antibiotics without much improvement. She has an appointment with ENT in end of September. She has had some nausea and vomiting. P.o. intake has been suboptimal. Creatinine was 1.06 and BUN bumped up to 27 and she he is here for further evaluation. Baseline BUN is around 18 mg/dL. Creatinine stable around 1.0 mg/dL 11/22/23 Has GI symptoms/Vomiting h/o FMF - on colchicine Waiting to see Rheumatology HAs missed many doses of [place] Recent Cr 1.12 PFSH Medical History (Updated 05/01/23 @ 00:03 by James Oviedo) Acute anxiety Depression History of recurrent pneumonia History of Pseudomonas pneumonia Bipolar disorder Menstrual migraine Allergic asthma Dyslipidemia Type 2 diabetes mellitus FMF (familial Mediterranean fever) Primary immunodeficiency disorder Surgical History (Updated 11/22/23 @ 10:46 by PANKAJ Asher) History of endoscopy (~11/2023) History of ankle surgery History of umbilical hernia repair History of dilation and curettage History of arthroscopy History of oral surgery History of delivery Social History Household Members: Family Housing: House Do you presently have visiting nurse or other home services: No Patient Tobacco Use Status: Never used Tobacco e-Cigarette/Vaping Use: Never Used service: No Sexual orientation: Straight/Heterosexual Physical Exam Vital Signs: Last Vital Signs Pulse 90 11/22/23 10:41 BP 110/80 11/22/23 10:41 Pulse Ox 97 11/22/23 10:41 Oxygen Delivery Method Room Air 11/22/23 10:41 BMI result Body Mass Index 30.4 Const General: comfortable; No acute distress Orientation/consciousness: patient oriented x3 Eyes General: appearance normal, both eyes and all related structures Visual Rosa: normal visual rosa by confrontation Neck Neck: Yes supple and Yes no JVD Resp Effort & Inspection: normal respiratory effort and respiratory effort not decreased Auscultation: rhonchi Cardio Palpation: no palpable S3 and no palpable S4 Heart sounds: no rubs GI Inspection: Yes normal to inspection Palpation (GI): Soft to palpation Percussion: Yes normal to percussion Auscultation: normal bowel sounds General: Yes no CVA tenderness Back/Spine/Pelvis Back: no CVA tenderness Skin General skin exam: no petechiae and no purpura Neuro General: patient oriented x3 and no focal motor deficits Extrem General: No clubbing and No edema Results Reviewed Nephrology Results: Hgb 13.1 g/dl (12.0-16.0) 01/31/22 WBC 7.9 X10*3/uL (4.8-10.8) 01/31/22 Plt Count 278 X10*3/uL (160-400) 01/31/22 Sodium 142 mmol/L (135-145) 02/02/22 Potassium 3.4 mmol/L (3.3-5.1) 02/02/22 Chloride 107 mmol/L (96-108) 02/02/22 Carbon Dioxide 21 mmol/L (22-29) L 02/02/22 BUN 30 mg/dL (9-16) H 02/06/22 Creatinine 1.11 mg/dL (0.5-1.4) 02/06/22 Calcium 9.8 mg/dL (8.4-10.2) 02/02/22 Urine Protein Negative mg/dL (Neg-Trace) 01/31/22 Assessment & Plan Assessment & Plan (1) Nephrogenic diabetes insipidus: Code(s): N25.1 - Nephrogenic diabetes insipidus Category: Medical Plan 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 The polyuria is under control while she is on amiloride. Renal function has been stable as well. She is clearly at risk for ongoing in renal injury from lithium however it seems like this might be the only option to treat her bipolar illness. 24 hour urine collection showed a volume of 4600 and urine osmolarity of 220 risks and benefits of going back on lithium was explained and she is back on [place] since May 2023 Watch renal function and UO while on [place] She should continue with the low-sodium diet as well. Keep AMiloride at 10 mg QD Stay on low salt diet Given the h/o renal stones , would not add Calcium tabs Shall follow levels The bump in BUN is most likely due to poor p.o. intake. Hemoglobin has increased from 13.3 up to 14.1 most likely due to hemoconcentration I have encouraged her to increase fluid intake. Serum creatinine stable at 1.06. Clinically volume status appears stable. She will require a 24 urine collection to quantify urine output and based on this we can adjust the p.o. fluid intake. Coding Level of Care Code Est Pt Level 4 (85485) Diagnoses Nephrogenic diabetes insipidus N25.1
== END 2023-11-22 11:10 | disposition home or self-care (01) ==
PROVIDERS: PCP Nurse Practitioner Family; Visit Provider Internal Medicine Hypertension Specialist
DX: N25.1 Nephrogenic diabetes insipidus (principal)
CPT/HCPCS: 99214

== ENCOUNTER → 2023-11-22 10:30 | Outpatient (BNVA) | payer BC, MEDICARE, MEDICAID, SELFPAY | PROVIDERS: PCP Nurse Practitioner Family; Visit Provider Internal Medicine Hypertension Specialist ==

== ENCOUNTER 2023-12-11 15:21 | Outpatient (AMB) | payer BC, MEDICARE, MEDICAID, SELFPAY ==
[2023-12-11 15:22] VITALS: BP 118/86; PULSE 101; O2SAT 97; BMI 30.7
--- NOTE | 2023-12-11 15:22 | HO.NEPHOV ---
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: No Accompanied by: Self / Same As Patient Allergies adhesive [ADHESIVE] Allergy (Intermediate, Verified 12/11/23 15:24) BLISTER fluticasone [From FLONASE] Allergy (Unknown, Verified 12/11/23 15:24) unknown meperidine [Demerol] Allergy (Unknown, Verified 12/11/23 15:24) vomit metoclopramide [From REGLAN] Allergy (Unknown, Verified 12/11/23 15:24) DIPLOPIA transparent dressing Allergy (Unknown, Verified 12/11/23 15:24) rash morphine [MORPHINE] Adverse Reaction (Severe, Verified 12/11/23 15:24) NAUSEA & VOMITING TEGADERM BANDAGE Allergy (Intermediate, Uncoded 01/29/20 16:24) RASH morphine Allergy (Unknown, Uncoded 01/20/19 00:00) vomit tape Allergy (Unknown, Uncoded 01/20/19 00:00) rash From DEMEROL Adverse Reaction (Severe, Uncoded 01/29/20 16:24) NAUSEA & VOMITING HPI Comments Details: Meredith is a pleasant 48-year-old woman with a history of immunodeficiency and currently disease IV immunoglobulins. She has a history of bipolar disorder and has been on lithium for several years. 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 Serum creatinine has been stable around 1.0. [place] was discontinued. She is currently on Vraylar. She has developed symptoms of TD. The plan is to switch her back to lithium as per her psychiatrist. She underwent a partial thyroidectomy on 01/06/2022. History of papillary thyroid Ca She disease IV hemoglobin every 3 weeks for immunodeficiency. History of medullary calcinosis of the kidneys. She has been on topiramate for several years. 05/28/23 Recently admitted with Campylobacter Jejuni Had diarrhea Ca and K was low 24 hr urine showed a volume of 4600 ml !! 07/23/23 Amiloride was increased in May UO has decreased She has cut back on soda Now she is back on [place] since May 2023 08/20/23 Recently she had 2 sinus infections treated with antibiotics without much improvement. She has an appointment with ENT in end of September. She has had some nausea and vomiting. P.o. intake has been suboptimal. Creatinine was 1.06 and BUN bumped up to 27 and she he is here for further evaluation. Baseline BUN is around 18 mg/dL. Creatinine stable around 1.0 mg/dL 11/22/23 Has GI symptoms/Vomiting h/o FMF - on colchicine Waiting to see Rheumatology Has missed many doses of [place] Recent Cr 1.12 12/11/23 Metformin was recently stopped. Blood sugar spiked and ended up in ER. Cr up to 1.3 PFSH Medical History (Updated 05/01/23 @ 00:03 by James Oviedo) Acute anxiety Depression History of recurrent pneumonia History of Pseudomonas pneumonia Bipolar disorder Menstrual migraine Allergic asthma Dyslipidemia Type 2 diabetes mellitus FMF (familial Mediterranean fever) Primary immunodeficiency disorder Surgical History History of endoscopy (~11/2023) History of ankle surgery History of umbilical hernia repair History of dilation and curettage History of arthroscopy History of oral surgery History of delivery Social History Household Members: Family Housing: House Do you presently have visiting nurse or other home services: No Patient Tobacco Use Status: Never used Tobacco e-Cigarette/Vaping Use: Never Used service: No Sexual orientation: Straight/Heterosexual Physical Exam Vital Signs: Last Vital Signs Pulse 101 H 12/11/23 15:22 BP 118/86 12/11/23 15:22 Pulse Ox 97 12/11/23 15:22 Oxygen Delivery Method Room Air 12/11/23 15:22 BMI result Body Mass Index 30.7 Const General: comfortable; No acute distress Orientation/consciousness: patient oriented x3 Eyes General: appearance normal, both eyes and all related structures Visual Rosa: normal visual rosa by confrontation Neck Neck: Yes supple and Yes no JVD Resp Effort & Inspection: normal respiratory effort and respiratory effort not decreased Auscultation: rhonchi Cardio Palpation: no palpable S3 and no palpable S4 Heart sounds: no rubs GI Inspection: Yes normal to inspection Palpation (GI): Soft to palpation Percussion: Yes normal to percussion Auscultation: normal bowel sounds General: Yes no CVA tenderness Back/Spine/Pelvis Back: no CVA tenderness Skin General skin exam: no petechiae and no purpura Neuro General: patient oriented x3 and no focal motor deficits Extrem General: No clubbing and No edema Results Reviewed Nephrology Results: Hgb 13.1 g/dl (12.0-16.0) 01/31/22 WBC 7.9 X10*3/uL (4.8-10.8) 01/31/22 Plt Count 278 X10*3/uL (160-400) 01/31/22 Sodium 142 mmol/L (135-145) 02/02/22 Potassium 3.4 mmol/L (3.3-5.1) 02/02/22 Chloride 107 mmol/L (96-108) 02/02/22 Carbon Dioxide 21 mmol/L (22-29) L 02/02/22 BUN 30 mg/dL (9-16) H 02/06/22 Creatinine 1.11 mg/dL (0.5-1.4) 02/06/22 Calcium 9.8 mg/dL (8.4-10.2) 02/02/22 Urine Protein Negative mg/dL (Neg-Trace) 01/31/22 Assessment & Plan Assessment & Plan (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 The polyuria is under control while she is on amiloride. Renal function has been stable as well. She is clearly at risk for ongoing in renal injury from lithium however it seems like this might be the only option to treat her bipolar illness. 24 hour urine collection showed a volume of 4600 and urine osmolarity of 220 risks and benefits of going back on lithium was explained and she is back on [place] since May 2023 Watch renal function and UO while on [place] She should continue with the low-sodium diet as well. Keep AMiloride at 10 mg QD Stay on low salt diet Given the h/o renal stones , would not add Calcium tabs Shall follow levels The bump in BUN is most likely due to poor p.o. intake. Hemoglobin has increased from 13.3 up to 14.1 most likely due to hemoconcentration I have encouraged her to increase fluid intake. Serum creatinine stable at 1.06. Clinically volume status appears stable. She will require a 24 urine collection to quantify urine output and based on this we can adjust the p.o. fluid intake. 12/11/23 SACHI due to hypoperfusion in a setting of hyperglycemia REcheck labs today Increase PO fluids Optimize blood sugar and follow up with PCP Orders: Orders Basic Metabolic Panel Today N18.9 - Chronic kidney disease, unspecified Coding Level of Care Code Est Pt Level 3 (16575) Diagnoses Nephrogenic diabetes insipidus N25.1 CKD (chronic kidney disease) N18.9
== END 2023-12-11 15:51 | disposition home or self-care (01) ==
PROVIDERS: PCP Nurse Practitioner Family; Visit Provider Internal Medicine Hypertension Specialist
DX: N25.1 Nephrogenic diabetes insipidus (principal); N18.9 Chronic kidney disease, unspecified
CPT/HCPCS: 99213

== ENCOUNTER → 2023-12-11 15:21 | Outpatient (BNVA) | payer BC, MEDICARE, MEDICAID, SELFPAY | PROVIDERS: PCP Nurse Practitioner Family; Visit Provider Internal Medicine Hypertension Specialist ==

== ENCOUNTER 2024-01-02 08:39 | Outpatient (AMB) | payer BC, MEDICARE, MEDICAID, SELFPAY ==
[2024-01-02 08:43] VITALS: BP 110/76; PULSE 96; O2SAT 97; BMI 30.7
--- NOTE | 2024-01-02 08:43 | HO.NEPHOV ---
Vital Signs 01/02/24 08:43 Height 5 ft 4 in Weight 179 lb BMI 30.7 BP 110/76 Blood Pressure Location Lt brachial Position Sitting Pulse 96 Pulse Source Pulse Oximeter Pulse Oximetry (%) 97 Oxygen Delivery Method Room Air Intake Visit Reasons: [facility] Visit 12/30/23/ Conf Central Office Trouble Shooter Required: No Accompanied by: Self / Same As Patient Allergies adhesive [ADHESIVE] Allergy (Intermediate, Verified 01/02/24 08:46) BLISTER fluticasone [From FLONASE] Allergy (Unknown, Verified 01/02/24 08:46) unknown meperidine [Demerol] Allergy (Unknown, Verified 01/02/24 08:46) vomit metoclopramide [From REGLAN] Allergy (Unknown, Verified 01/02/24 08:46) DIPLOPIA transparent dressing Allergy (Unknown, Verified 01/02/24 08:46) rash morphine [MORPHINE] Adverse Reaction (Severe, Verified 01/02/24 08:46) NAUSEA & VOMITING TEGADERM BANDAGE Allergy (Intermediate, Uncoded 01/29/20 16:24) RASH morphine Allergy (Unknown, Uncoded 01/20/19 00:00) vomit tape Allergy (Unknown, Uncoded 01/20/19 00:00) rash From DEMEROL Adverse Reaction (Severe, Uncoded 01/29/20 16:24) NAUSEA & VOMITING HPI Comments Details: Meredith is a pleasant 48-year-old woman with a history of immunodeficiency and currently disease IV immunoglobulins. She has a history of bipolar disorder and has been on lithium for several years. 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 Serum creatinine has been stable around 1.0. [place] was discontinued. She is currently on Vraylar. She has developed symptoms of TD. The plan is to switch her back to lithium as per her psychiatrist. She underwent a partial thyroidectomy on 01/06/2022. History of papillary thyroid Ca She disease IV hemoglobin every 3 weeks for immunodeficiency. History of medullary calcinosis of the kidneys. She has been on topiramate for several years. 05/28/23 Recently admitted with Campylobacter Jejuni Had diarrhea Ca and K was low 24 hr urine showed a volume of 4600 ml !! 07/23/23 Amiloride was increased in May UO has decreased She has cut back on soda Now she is back on [place] since May 2023 08/20/23 Recently she had 2 sinus infections treated with antibiotics without much improvement. She has an appointment with ENT in end of September. She has had some nausea and vomiting. P.o. intake has been suboptimal. Creatinine was 1.06 and BUN bumped up to 27 and she he is here for further evaluation. Baseline BUN is around 18 mg/dL. Creatinine stable around 1.0 mg/dL 11/22/23 Has GI symptoms/Vomiting h/o FMF - on colchicine Waiting to see Rheumatology Has missed many doses of [place] Recent Cr 1.12 12/11/23 Metformin was recently stopped. Blood sugar spiked and ended up in ER. 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 Surgical History History of endoscopy (~11/2023) History of ankle surgery History of umbilical hernia repair History of dilation and curettage History of arthroscopy History of oral surgery History of delivery Social History Household Members: Family Housing: House Do you presently have visiting nurse or other home services: No Patient Tobacco Use Status: Never used Tobacco e-Cigarette/Vaping Use: Never Used service: No Sexual orientation: Straight/Heterosexual Physical Exam Vital Signs: Last Vital Signs Pulse 96 01/02/24 08:43 BP 110/76 01/02/24 08:43 Pulse Ox 97 01/02/24 08:43 Oxygen Delivery Method Room Air 01/02/24 08:43 BMI result Body Mass Index 30.7 Const General: comfortable; No acute distress Orientation/consciousness: patient oriented x3 Eyes General: appearance normal, both eyes and all related structures Visual Rosa: normal visual rosa by confrontation Neck Neck: Yes supple and Yes no JVD Resp Effort & Inspection: normal respiratory effort and respiratory effort not decreased Auscultation: rhonchi Cardio Palpation: no palpable S3 and no palpable S4 Heart sounds: no rubs GI Inspection: Yes normal to inspection Palpation (GI): Soft to palpation Percussion: Yes normal to percussion Auscultation: normal bowel sounds General: Yes no CVA tenderness Back/Spine/Pelvis Back: no CVA tenderness Skin General skin exam: no petechiae and no purpura Neuro General: patient oriented x3 and no focal motor deficits Extrem General: No clubbing and No edema Results Reviewed Results Reviewed: cr 1.0 Lytes normal from 01/01/24 Nephrology Results: No Data to Display Assessment & Plan Assessment & Plan (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 The polyuria is under control while she is on amiloride. Renal function has been stable as well. She is clearly at risk for ongoing in renal injury from lithium however it seems like this might be the only option to treat her bipolar illness. 24 hour urine collection showed a volume of 4600 and urine osmolarity of 220 risks and benefits of going back on lithium was explained and she is back on [place] since May 2023 Watch renal function and UO while on [place] She should continue with the low-sodium diet as well. Keep AMiloride at 10 mg QD Stay on low salt diet Given the h/o renal stones , would not add Calcium tabs Shall follow levels The bump in BUN is most likely due to poor p.o. intake. Hemoglobin has increased from 13.3 up to 14.1 most likely due to hemoconcentration I have encouraged her to increase fluid intake. Serum creatinine stable at 1.06. Clinically volume status appears stable. She will require a 24 urine collection to quantify urine output and based on this we can adjust the p.o. fluid intake. 12/11/23 SACHI due to hypoperfusion in a setting of hyperglycemia REcheck labs today Increase PO fluids Optimize blood sugar and follow up with PCP 01/02/24 She might benefit from weekly IV fluids I shall arrange Coding Level of Care Code Est Pt Level 4 (17996) Diagnoses Nephrogenic diabetes insipidus N25.1 CKD (chronic kidney disease) N18.9
== END 2024-01-02 09:06 | disposition home or self-care (01) ==
PROVIDERS: PCP Nurse Practitioner Family; Visit Provider Internal Medicine Hypertension Specialist
DX: N25.1 Nephrogenic diabetes insipidus (principal); N18.9 Chronic kidney disease, unspecified
CPT/HCPCS: 99214

== ENCOUNTER → 2024-01-02 08:39 | Outpatient (BNVA) | payer BC, MEDICARE, MEDICAID, SELFPAY | PROVIDERS: PCP Nurse Practitioner Family; Visit Provider Internal Medicine Hypertension Specialist ==

== ENCOUNTER 2024-01-11 12:36 | Outpatient (REF) | payer BC, MEDICARE, MEDICAID, SELFPAY ==
--- NOTE | ~2024-01-11 | US_ITS ---
EXAMINATION: US RETROPERITONEAL COMPLETE (RENAL) CLINICAL INFORMATION: CKD. COMPARISON: CT abdomen and pelvis 01/31/2019. TECHNIQUE: Real-time imaging of the kidneys FINDINGS: RIGHT KIDNEY: 13.6 x 7.1 x 6.4 cm (SAG x AP x TRV). Kidney is normal in size but with cortical thinning and increased echogenicity . No focal parenchymal lesions. Innumerable echogenic foci are seen consistent with calculi similar to the prior CT scan the largest measuring 8 mm. No hydronephrosis. LEFT KIDNEY: 14.0 x 6.0 x 5.9 cm (SAG x AP x TRV). Kidney is normal in size but with cortical thinning and increased echogenicity. No focal parenchymal lesions. Innumerable echogenic foci are seen consistent with calculi similar to the prior CT scan the largest measuring 6 mm. No hydronephrosis. US/US renal BI IMPRESSION: Both kidneys demonstrate cortical thinning and increased echogenicity with innumerable calculi. Findings are similar to the prior CT scan. No hydronephrosis is seen. Electronically signed by: Isauro Lizarraga MD 01/14/2024 09:54 PM EDT
== END 2024-01-11 12:37 | disposition home or self-care (01) ==
LOC: HO.US 12:36
PROVIDERS: PCP Nurse Practitioner Family; Visit Provider Internal Medicine Hypertension Specialist
DX: N18.9 Chronic kidney disease, unspecified (principal)
CPT/HCPCS: 76775

== ENCOUNTER 2024-01-11 13:04 | Emergency (ER) | payer BC, MEDICARE, MEDICAID, SELFPAY ==
[2024-01-11 13:11] VITALS: BP 129/90; PULSE 105; RESP 18; TEMP 36.4; O2SAT 98; BMI 29.9
--- NOTE | 2024-01-11 13:11 | ED.RECABL ---
HPI - Recheck/Abnormal Lab/Rx General Chief Complaint: Recheck/Abnormal Lab/Rx Stated Complaint: High blood sugar Time Seen by Provider: 01/11/24 13:28 Source: patient Mode of arrival: ambulatory Limitations: no limitations History of Present Illness ED Provider: Hilda Lozano PA-C HPI narrative: Patient is a 48 year old assigned female at with a history of DM presenting to the emergency department today with concerns of an elevated blood sugar. Patient states that she is concerned that her sugar is high. Patient denies any dizziness, lightheadedness, abdominal pain, nausea, vomiting, fever, chills, blurry vision, double vision, loss of vision, chest pain, difficulty breathing, shortness of breath, back pain, night sweats, pain with urination, increased urinary frequency, increased urinary urgency, blood in her urine or stool, syncope or a near syncopal episode, recent trauma or falls, bowel incontinence, bladder incontinence, or any other complaints at this time. Related Data Home Medications ?Medication ?Instructions ?Recorded ?Confirmed ipratropium 20 mcg-albuterol 100 1 puff inhalation QID PRN Wheezing 01/31/22 11/22/23 mcg/actuation mist for inhalation (Combivent Respimat) montelukast 10 mg tablet 1 tab PO QPM 01/31/22 11/22/23 immune globulin (human) (IgG) 10 30 g IV .COMPLEX 04/23/23 11/22/23 gram intravenous solution levothyroxine 50 mcg tablet 50 mcg PO DAILY 04/23/23 11/22/23 melatonin 10 mg capsule 10 mg PO BEDTIME PRN 04/23/23 11/22/23 omalizumab 150 mg subcutaneous 300 mg subcut Q4W 04/23/23 11/22/23 solution (Xolair) sitagliptin phosphate 100 mg 100 mg PO DAILY 04/23/23 11/22/23 tablet (Januvia) venlafaxine 50 mg tablet 50 mg PO DAILY 04/23/23 11/22/23 norethindrone (contraceptive) 0.35 0.35 mg PO DAILY 05/28/23 11/22/23 mg tablet (Incassia) ondansetron HCl 4 mg tablet 4 mg PO Q8H PRN 05/28/23 11/22/23 oxcarbazepine 150 mg tablet 750 mg PO .pm 05/28/23 11/22/23 oxcarbazepine 600 mg tablet 900 mg PO .am 05/28/23 11/22/23 topiramate 50 mg tablet 50 mg PO BID 05/28/23 11/22/23 lithium carbonate 450 mg 450 mg PO BID 07/23/23 11/22/23 tablet,extended release atorvastatin 40 mg tablet 40 mg PO DAILY 12/11/23 cetirizine 10 mg capsule (Zyrtec) 10 mg PO BID PRN 12/11/23 ferrous gluconate 324 mg (38 mg 324 mg PO DAILY 12/11/23 iron) tablet galcanezumab-gnlm 120 mg/mL mg subcut ONCE 12/11/23 subcutaneous pen injector (Emgality Pen) hydroxyzine HCl 10 mg tablet 40 mg PO BEDTIME 12/11/23 lamotrigine 200 mg tablet,extended 200 mg PO BEDTIME 12/11/23 release 24 hr metformin 1,000 mg tablet 1,000 mg PO BID 12/11/23 omeprazole 40 mg capsule,delayed 40 mg PO BID 12/11/23 release colchicine 0.6 mg tablet 0.6 mg PO TID 01/02/24 prednisone 20 mg tablet 20 mg PO DAILY 01/02/24 Previous Rx's ?Medication ?Instructions ?Recorded amiloride 5 mg tablet 10 mg (2 x 5 mg) PO DAILY #60 tabs 08/06/23 Allergies Allergy/AdvReac Type Severity Reaction Status Date / Time adhesive [ADHESIVE] Allergy Intermediate BLISTER Verified 01/11/24 13:14 fluticasone [From FLONASE] Allergy Unknown unknown Verified 01/11/24 13:14 meperidine [Demerol] Allergy Unknown vomit Verified 01/11/24 13:14 metoclopramide [From REGLAN] Allergy Unknown DIPLOPIA Verified 01/11/24 13:14 transparent dressing Allergy Unknown rash Verified 01/11/24 13:14 morphine [MORPHINE] AdvReac Severe NAUSEA & Verified 01/11/24 13:14 VOMITING TEGADERM BANDAGE Allergy Intermediate RASH Uncoded 01/29/20 16:24 morphine Allergy Unknown vomit Uncoded 01/20/19 00:00 tape Allergy Unknown rash Uncoded 01/20/19 00:00 From DEMEROL AdvReac Severe NAUSEA & Uncoded 09/17/20 16:24 VOMITING Review of Systems Constitutional: Constitutional: Reports no additional constitutional complaints, Denies chills, Denies fever(s) and Denies night sweats Eyes: Eyes: Reports no additional eye complaints, Denies blurry vision, Denies change in vision, Denies diplopia, Denies eye discharge, Denies loss of vision and Denies eye pain ENT: Denies dizziness Cardiovascular: Cardiovascular: Reports no additional cardiovascular complaints, Denies chest pain, Denies lightheadedness, Denies Loss of Consciousness and Denies dyspnea Respiratory: Respiratory: Reports no additional respiratory complaints and Denies dyspnea Gastrointestinal: Gastrointestinal: Reports no additional gastrointestinal complaints, Denies abdominal pain, Denies melena, Denies hematochezia, Denies change in bowel habits and Denies change in stool character Genitourinary: Genitourinary: Denies hematuria, Denies urinary frequency, Denies dysuria, Denies urinary incontinence, Denies urinary hesitancy and Denies urinary urgency Musculoskeletal: Musculoskeletal: Reports no additional musculoskeletal complaints, Denies numbness and Denies tingling Neurologic: Denies dizziness, Denies loss of vision, Denies numbness and Denies tingling Psychiatric: Psychiatric: Reports no additional psychiatric complaints Endocrine: Endocrine: Reports no additional endocrine complaints Hematologic/Lymphatic: Hematologic/Lymphatic: Reports no additional hematologic/lymphatic complaints Allergic/Immunologic: Allergic/Immunologic: Reports no additional allergic/immunologic complaints [facility] Past Medical History Attestation statement: The following information was validated with the patient. 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 Surgical History History of endoscopy (~11/2023) History of ankle surgery History of umbilical hernia repair History of dilation and curettage History of arthroscopy History of oral surgery History of delivery Social History Social History Household Members: Family Housing: House Do you presently have visiting nurse or other home services: No Alcohol intake: never Patient Tobacco Use Status: Never used Tobacco Smoked in Last 30 Days: No e-Cigarette/Vaping Use: Never Used Use of substances other than those prescribed or required for medical reasons: No Advance Directives: Yes Advance Directives Information Provided: Yes Advance Directives on File: No service: No Sexual orientation: Straight/Heterosexual Physical Exam Vital Signs: Vital Signs: Last Vital Signs Temp 98.4 F 01/11/24 14:38 Pulse 106 H 01/11/24 14:38 Resp 18 01/11/24 14:38 BP 140/95 H 01/11/24 14:38 Pulse Ox 97 01/11/24 14:38 O2 Del Method Room Air 01/11/24 14:38 BMI result Body Mass Index 29.9 Const: General: cooperative, no acute distress, alert and awake Nutritional Appearance: well nourished Orientation/consciousness: patient oriented x3 Limitations: no limitations HEENT: Head: Yes normal to inspection and Yes atraumatic Ears: hearing grossly normal bilaterally and external ears normal General nose exam: Normal external nose present, no nasal discharge noted and no epistaxis Face and sinus: Yes normal facial exam, No abrasion and No laceration Mouth: Normal oral and palatal mucosa present, no drooling and no muffled voice Eyes: General: appearance normal, both eyes and all related structures Periorbital: periorbital findings normal Eyelids: Yes eyelids normal Conjunctivae: conjunctivae normal Pupils: Equal, round and reactive pupils present EOM: EOMs intact bilaterally Neck: Neck: Yes normal visual inspection, Yes full ROM and Yes no lymphadenopathy Chest: Chest palpation & inspection: normal inspection of the chest Resp: Effort & Inspection: normal respiratory effort and able to speak in complete sentences GI: Inspection: Yes normal to inspection Neuro: General: patient oriented x3 and moves all extremities Cranial nerves: Yes Equal, round and reactive pupils present Cognition (Neuro): normal cognition Extrem: General: Yes normal to inspection, Yes full ROM and Yes capillary refill normal Psych: Appearance: grossly normal Mental Status: mental status grossly normal Affect: normal affect Attitude: cooperative Thought process: Normal thought process present Thought content: Normal thought content present Insight: Good insight present (Psych) Course Course Course Narrative: This is a Rapid Medical Examination (RME) performed by Vicky Farris PA-C in triage. Full HPI, ROS, assessment and treatment plan per primary provider in the Main ED. 48 yo female hx of T2DM, CKD, bipolar 1 disorder here for eval of elevated blood sugar. reports eating watermelon and soda, began to feel faint, dizzy and off . took her blood sugar and her glucose was 391 around 11:30 am this morning. currently on metformin. denies abd pain, n/v. + well appearing Plan: labs Medical Decision Making Medical Decision Making [facility] Narrative: Patient is a 48 year old assigned female at with a history of DM presenting to the emergency department today with concerns of an elevated BS. Patient's physical exam was unremarkable. Patient's blood work was unremarkable. I explained my physical exam findings as well as all test results to the patient. I answered all questions asked by the patient. I stressed the importance of the patient taking her medication as directed (either prescribed or as the over the counter packaging recommends). I stressed the importance of the patient following up with her primary care provider. I stressed the importance of the patient returning to the emergency department immediately if her symptoms were to worsen or if she were to develop any dizziness, shortness of breath, difficulty breathing, chest pain, blurry vision, loss of vision, nausea, vomiting, abdominal pain, fever, chills, back pain, or any other complaints. Patient verbalized agreement and understanding with this treatment plan and discharge. Differential Diagnosis Differential Diagnoses: The differential diagnosis associated with the presentation includes Elevated blood sugar Diabetes Admission/Observation Consideration of admission/observation: Escalation of care including admission/observation considered Patient would have been admitted to the hospital had her work up had any findings where hospital admission was appropriate and her clinical presentation warranted hospital admission. Lab Data [facility] Lab Attestation statement: I reviewed the patient's lab results. My interpretation of these results are in the [facility] Rationale portion of this note. 01/11/24 13:20 01/11/24 13:20 Labs: Lab Results 01/11/24 01/11/24 01/11/24 Range/Units 13:20 13:33 14:32 WBC 11.7 H (4.8-10.8) X10*3/uL RBC 5.77 H (4.20-5.50) X10*6/uL Hgb 12.8 (12.0-16.0) g/dl Hct 42.4 (37.0-47.0) % MCV 73.5 L (80.0-98.0) fL MCH 22.2 L (27.0-33.0) pg MCHC 30.2 L (31.0-35.0) g/dl RDW 19.4 H (11.0-16.0) % Plt Count 453 H D (160-400) X10*3/uL MPV 10.0 (9.4-12.3) fL Immature Gran % (Auto) 0.6 H (0.0-0.4) % Neut % (Auto) 71.2 (45-73) % Lymph % (Auto) 12.7 L (20-40) % [place] % (Auto) 11.3 H (2-11) % Eos % (Auto) 3.0 (0-4) % Baso % (Auto) 1.2 (0-2) % Lymph # (Auto) 1.5 (1.2-4.9) X10*3/uL [place] # (Auto) 1.3 H (0.1-1.2) X10*3/uL Eos # (Auto) 0.4 (0.0-0.4) X10*3/uL Baso # (Auto) 0.1 (0.0-0.2) X10*3/uL Abs Immat Gran (auto) 0.07 H (0.00-0.03) X10*3/uL Absolute Neuts (auto) 8.4 H (2.0-8.3) x10*3/uL Absolute Nucleated RBC 0.000 (0.0-0.012) X10*3/uL Nucleated RBC % (auto) 0.0 (0.0-0.2) /100WBC Sodium 134 L (135-145) mmol/L Potassium 3.5 (3.3-5.1) mmol/L Chloride 108 (96-108) mmol/L Carbon Dioxide 18 L (22-29) mmol/L Anion Gap 12 (12-20) BUN 15 (9-16) mg/dL Creatinine 1.09 (0.5-1.4) mg/dL Estim Creat Clear Calc 64.1 Estimated GFR 54 POC Glucose 203 H (60-115) mg/dL Random Glucose 242 H (60-115) mg/dL Calcium 9.6 (8.4-10.2) mg/dL Total Bilirubin 0.2 (0.0-1.0) mg/dL AST 25 (5-31) U/L ALT 33 H (0-31) U/L Alkaline Phosphatase 206 H (39-117) U/L Total Protein 7.4 (6.5-8.0) g/dL Albumin 4.2 (3.5-5.0) g/dL Beta-Hydroxybutyrate 0.07 (0.02-0.27) mmol/L Influenza Type A (PCR) NEGATIVE (Negative) Influenza Type B (PCR) NEGATIVE (Negative) RSV RNA Qual (PCR) NEGATIVE (Negative) SARS-CoV-2 RNA (RT-PCR) NEGATIVE (Negative) Chronic Conditions Patient?s care impacted by: Diabetes Discharge Plan Discharge Clinical Impression: Diabetes Patient Disposition: Home, Self-Care Instructions: Diabetes and Nutrition (ED), Diabetes and Exercise (ED) Additional Instructions: Follow up with your primary care provider. Return to the emergency department immediately if your symptoms worsen or if you develop any dizziness, shortness of breath, difficulty breathing, chest pain, blurry vision, loss of vision, nausea, vomiting, abdominal pain, fever, chills, back pain, or any other complaints. Prescriptions: No Action amiloride 5 mg tablet 10 mg PO DAILY Qty: 60 5RF montelukast 10 mg tablet 1 tab PO QPM Combivent Respimat 20-100 mcg/actuation mist 1 puff INHALATION QID PRN (Reason: Wheezing) topiramate 50 mg tablet 50 mg PO BID hydroxyzine HCl 10 mg tablet 40 mg PO BEDTIME omeprazole 40 mg capsule,delayed release(DR/EC) 40 mg PO BID lamotrigine 200 mg tablet extended release 24hr 200 mg PO BEDTIME colchicine 0.6 mg tablet 0.6 mg PO TID venlafaxine 50 mg tablet 50 mg PO DAILY immune globulin (human) (IgG) 10 gram recon soln 30 g IV .COMPLEX Rx Instructions: 30 grams intravenously; Xolair 150 mg recon soln 300 mg subcut Q4W Rx Instructions: requires multiple injection sites; do not exceed 150 mg per injection site melatonin 10 mg capsule 10 mg PO BEDTIME PRN Januvia 100 mg tablet 100 mg PO DAILY levothyroxine 50 mcg tablet 50 mcg PO DAILY oxcarbazepine 150 mg tablet 750 mg PO .pm Zyrtec 10 mg capsule 10 mg PO BID PRN Emgality Pen 120 mg/mL pen injector subcut ONCE Rx Instructions: Once a month lithium carbonate 450 mg tablet extended release 450 mg PO BID ondansetron HCl 4 mg tablet 4 mg PO Q8H PRN norethindrone (contraceptive) [Incassia] 0.35 mg tablet 0.35 mg PO DAILY oxcarbazepine 600 mg tablet 900 mg PO .am atorvastatin 40 mg tablet 40 mg PO DAILY ferrous gluconate 324 mg (38 mg iron) tablet 324 mg PO DAILY metformin 1,000 mg tablet 1,000 mg PO BID prednisone 20 mg tablet 20 mg PO DAILY Referrals: Bernie Aquino NP [Primary Care Provider] - Interventions: ED Discharge Assessment Last Done: 01/11/24 14:38 Discharge Date/Time: 01/11/24 14:39 Print Language: Turkmen
[2024-01-11 13:24] LABS: MANUAL DIFF FLAG NO
[2024-01-11 13:25] LABS: Basophils Absolute Auto 0.1 X10*3/uL (0.0-0.2); Basophils Percent Auto 1.2 % (0-2); Eosinophils Absolute Auto 0.4 X10*3/uL (0.0-0.4); Hematocrit 42.4 % (37.0-47.0); Hemoglobin 12.8 g/dl (12.0-16.0); Imm Gran Abs Auto 0.07 X10*3/uL (0.00-0.03); Imm Gran Pct Auto 0.6 % (0.0-0.4); Lymphocytes Absolute Auto 1.5 X10*3/uL (1.2-4.9); Lymphocytes Percent Auto 12.7 % (20-40); Mean Corpuscular HGB Conc 30.2 g/dl (31.0-35.0); Mean Corpuscular Hemoglobin 22.2 pg (27.0-33.0); Mean Corpuscular Volume 73.5 fL (80.0-98.0); Monocytes Absolute Auto 1.3 X10*3/uL (0.1-1.2); Monocytes Percent Auto 11.3 % (2-11); Neutrophils Absolute Auto 8.4 x10*3/uL (2.0-8.3); Neutrophils Percent Auto 71.2 % (45-73); Platelet Count 453 X10*3/uL (160-400); Red Blood Count 5.77 X10*6/uL (4.20-5.50); Red Cell Distribution Width 19.4 % (11.0-16.0); White Blood Count 11.7 X10*3/uL (4.8-10.8)
[2024-01-11 13:31] VITALS: BP 140/95; PULSE 106; RESP 20; TEMP 36.9; O2SAT 97
[2024-01-11 13:37] LABS: Glucose, Whole Blood 203 mg/dL (60-115)
--- OUTSIDE RECORDS SUMMARY | 2024-01-11 13:40 | XMS_ITS | Continuity of Care Document ---
Author Organization [facility] lt Address [address] [place] [address]- Care Team Providers Care Interlibrary Loan Services Librarian Name Role Phone Miles OTOOLE, Bernie Hardy Primary Care Physician Encounter [facility] Date(s): 01/24/22 - 02/23/22 [facility] Adult [address] [place] [address]- Allergies, Adverse Reactions, Alerts Substance Reaction Severity Status azithromycin 1 increases sx's Active Flonase rhinitis Active Adhesive Bandage rash Active morphine vomiting Active Augmentin 2 increases sx Active Reglan double vision Active Demerol HCl vomiting Active Cats sneezing Active 1Diarrhea 2makes sicker Immunizations Given and Recorded Vaccine Date Status Refusal Reason influenza virus vaccine, inactivated 02/19/19 Give n influenza virus vaccine, inactivated 1 02/13/18 Gi tyree influenza virus vaccine, inactivated 2 02/08/17 Gi tyree influenza virus vaccine, inactivated 03/07/16 Give n influenza virus vaccine, inactivated 03/02/15 Give n influenza virus vaccine, inactivated 02/11/14 Give n influenza virus vaccine, inactivated 3 01/24/13 Gi tyree tetanus/diphtheria/pertussis, acel(Tdap) 4 09/19/17 Given tetanus/diphtheria/pertussis, acel(Tdap) 12/08/07 Given tetanus/diphtheria/pertussis, acel(Tdap) 12/08/07 Given pneumococcal 13-valent vaccine 05/13/14 Given FluLaval (oldterm) 5 01/05/12 Given FluLaval (oldterm) 6 02/16/10 Given Fluvirin (oldterm) 01/23/11 Given pneumococcal 23-valent vaccine 12/19/09 Given influ virus vac, H1N1, inactive(oldterm) 7 05/04/09 Given Influenza Virus Vaccine (oldterm) 8 03/14/09 Given 1Result Comment: [02/13/2018] [id number] 2Result Comment: [02/08/2017] [facility] [id number] 3Result Comment: [01/24/2013] ORDERRED BY GINA GAINES MD 4Result Comment: [09/19/2017] [id number] 5Admin Note: vis given 6Admin Note: BIOMEDICAL MARIELLA 7Admin Note: H1N1 8Admin Note: elsewhere Medications atorvastatin 10 mg oral tablet 1 tablet, By Mouth, Daily, # 90 tablet, 1 Refills, Maintenance, 01/29/22 18:37:00 EDT, [facility], 163, cm, 01/06/22 16:05:00 EDT, Height, 76.2, kg, 01/06/22 8:38:00 EDT, Dry Weight Start Date: 01/29/22 Status: Ordered Benztropine = 5 mg, By Mouth, 2 times a day, 0 Refills, Maintenance, 01/05/22 9:13:00 EDT, Partial fill upon patient request if the prescription is for a schedule II opioid drug. Start Date: 01/05/22 Status: Ordered benztropine 0.5 mg oral tablet 0.5 mg, 1, tablet, By Mouth, 2 times a day, # 30 tablet, Refills 0, Maintenance, 01/07/22 7:04:00 EDT, Partial fill upon patient request if the prescription is for a schedule II opioid drug. Start Date: 01/07/22 Status: Ordered Jade = 0.35 mg, By Mouth, Daily, 0 Refills, Maintenance, 01/16/20 10:54:00 EDT Start Date: 01/16/20 Status: Ordered cetirizine 10 mg oral tablet 1 tablet, By Mouth, Daily, # 90 tablet, 1 Refills, Maintenance, 01/02/22 19:09:00 EDT, [facility], 163, cm, 12/26/21 15:28:00 EDT, Height, 78.1, kg, 12/26/21 15:28:00 EDT, Dry Weight Start Date: 01/02/22 Status: Ordered clonazePAM 1 mg oral tablet 1 tablet = 1 mg, PRN Anxiety, 0 Refills, Maintenance, 09/23/20 9:59:00 EDT, Partial fill upon patient request if the prescription is for a schedule II opioid drug. Start Date: 09/23/20 Status: Ordered colchicine 0.6 mg oral tablet 1, tablet, By Mouth, 2 times a day, # 60 Unknown, Refills 11, Route to Pharmacy Electronically, [facility], 163, cm, 04/15/21 11:42:00 EST, Height, 81, kg, 01/28/21 22:15:00 EDT, Dry Weight Start Date: 05/10/21 Status: Ordered Contour Next test strips Contour Next test strips, See Instructions, # 300 each, Refills 6, Tot. Refills 6, Maintenance, check blood glucose 3 times a day and a s needed. Dx code E 11.9 T2DM, 07/22/21 8:03:00 EST, Supply, 163, cm, 07/18/21 14:49:00 EST, Height, 81, kg, ... Start Date: 07/22/21 Status: Ordered cyclobenzaprine 10 mg oral tablet 10 mg, 1, tablet, By Mouth, 3 times a day, PRN, # 20 tablet, Refills 1, Tot. Refills 1, Maintenance, Spasm, 12/01/20 15:40:00 EDT, Route to Pharmacy Electronically, [facility], 163,cm, 11/22/20 12:47:00 EDT, Height Start Date: 12/01/20 Status: Ordered EpiPen 2-Juvenal = 0.3 mg, Intramuscular, Once, 0 Refills, Maintenance Start Date: 01/31/11 Status: Ordered Fioricet oral capsule 1 capsule, By Mouth, Once, PRN as needed, repeat in 2 hours if headache is still present, # 30 capsule, 0 Refills, Soft Stop, 05/13/20 10:25:00 EST, Capsule, [facility], 1 capsule By Mouth Once,PRN:as needed,Instr:repeat in 2 hours if he... Start Date: 05/13/20 Status: Ordered fluconazole 150 mg oral tablet 1 tablet = 150 mg, By Mouth, Once, epeat dose if still having symptoms in 72 hours, # 2 tablet, 0 Refills, Soft Stop, 11/01/20 15:04:00 EDT, Tablet, [facility], Partial fill upon patient request if the prescription is for a schedule II o... Start Date: 11/01/20 Status: Ordered hydrochlorothiazide 25 mg oral tablet 25 mg, 1, tablet, By Mouth, Daily, # 30 tablet, Refills 0, Maintenance, 02/09/22 10:53:00 EDT, Partial fill upon patient request if the prescription is for a schedule II opioid drug. Start Date: 02/09/22 Status: Ordered hydrOXYzine hydrochloride 10 mg oral tablet 1 tablet = 10 mg, By Mouth, Daily at bedtime, 0 Refills, Maintenance, 01/07/22 6:51:00 EDT, Partialfill upon patient request if the prescription is for a schedule II opioid drug. Start Date: 01/07/22 Status: Ordered hydrOXYzine pamoate 50 mg oral capsule 1 capsule = 50 mg, By Mouth, 3 times a day, prn, 0 Refills, Maintenance, 01/11/16 14:10:40 Start Date: 01/11/16 Status: Ordered Immune Globulin Intramuscular 20 GRAMS EVERY 3 WEEKS, 0 Refills, Maintenance, 05/11/21 10:18:00 EST, Partial fill upon patient request if the prescription is for a schedule II opioid drug. Start Date: 05/11/21 Status: Ordered Januvia 50 mg oral tablet 1 tablet = 50 mg, By Mouth, Daily, # 30 tablet, 3 Refills, Maintenance, 02/09/22 11:05:00 EDT, [facility], Partial fill upon patient request if the prescription is for a schedule IIopioid drug., 163, cm, 02/09/22 10:38:00 EDT, Height, 7... Start Date: 02/09/22 Status: Ordered LaMICtal 100 mg oral tablet 400 mg, 4, tablet, By Mouth, Daily at bedtime, # 180 tablet, Refills 0, Maintenance, 01/07/22 6:59:00 EDT, Partial fill upon patient request if the prescription is for a schedule II opioid drug. Start Date: 01/07/22 Status: Ordered LaMICtal 200 mg oral tablet 3 tablet = 600 mg, By Mouth, Daily at bedtime, 0 Refills, Maintenance, 01/29/21 1:51:00 EDT, Partial fill upon patient request if the prescription is for a schedule II opioid drug. Start Date: 01/29/21 Status: Ordered Melatonin 10 mg oral tablet 1 tablet = 10 mg, By Mouth, Daily at bedtime, 0 Refills, Maintenance, 01/06/22 9:01:00 EDT, Partialfill upon patient request if the prescription is for a schedule II opioid drug. Start Date: 01/06/22 Status: Ordered montelukast 10 mg oral tablet 10 mg, 1, tablet, By Mouth, Daily, in evening, Refills 0, Maintenance, 01/06/22 9:02:00 EDT, Partial fill upon patient request if the prescription is for a schedule II opioid drug. Start Date: 01/06/22 Status: Ordered Multivitamin Daily, 0 Refills, Maintenance, 07/26/20 8:46:00 EDT, Partial fill upon patient request if the prescription is for a schedule II opioid drug. Start Date: 07/26/20 Status: Ordered Nurtec ODT = 75 mg, By Mouth, Once, 1 TAB EVERY OTHER DAY, 0 Refills, Maintenance, 05/11/21 10:03:00 EST, Partial fill upon patient request if the prescription is for a schedule II opioid drug. Start Date: 05/11/21 Status: Ordered omeprazole 40 mg oral enteric coated capsule 1 capsule = 40 mg, By Mouth, 2 times a day, # 60 capsule, 0 Refills, Maintenance, 09/02/21 10:08:00EDT, [facility], Partial fill upon patient request if the prescription is for a schedule II opioid drug., 163, cm, 08/29/21 11:01:00 EDT,... Start Date: 09/02/21 Status: Ordered ondansetron 8 mg oral tablet See Instructions, TAKE 1 TABLET BY MOUTH 3 TIMES A DAY NEEDED FOR NAUSEA AND VOMITING, # 30 tablet, 0 Refills, [facility], 163, cm, 06/07/21 14:40:00 EST, Height, 81, kg, 01/28/21 22:15:00 EDT, Dry Weight Start Date: 06/13/21 Status: Ordered oxyCODONE 5 mg oral tablet 5 mg, 1, tablet, By Mouth, Every 6 hours, PRN, Refills 0, Tot. Refills 0, Maintenance, Pain , Moderate, 01/06/22 9:03:00 EDT, Partial fill upon patient request if the prescription is for a schedule II opioid drug. Start Date: 01/06/22 Status: Ordered rizatriptan 10 mg oral tablet 1 tablet = 10 mg, By Mouth, PRN, 0 Refills, Maintenance, 05/11/21 10:03:00 EST, Partial fill upon patient request if the prescription is for a schedule II opioid drug. Start Date: 05/11/21 Status: Ordered Serum Calcium, Albumin, Parathyroid hormone Serum Calcium, Albumin, Parathyroid hormone, See Instructions, # 1 each, Refills 0, Tot. Refills 0,Maintenance, To be drawn on 01/12/22, 01/07/22 9:47:00 EDT, Supply, 163, cm, 01/06/22 16:05:00 EDT, Height, 76.2, kg, 01/06/22 8:38:00 EDT, Dry Weight Start Date: 01/07/22 Status: Ordered topiramate 200 mg oral tablet 1 tablet = 200 mg, By Mouth, Daily at bedtime, 0 Refills, Maintenance, 01/07/22 7:05:00 EDT, Partial fill upon patient request if the prescription is for a schedule II opioid drug. Start Date: 01/07/22 Status: Ordered topiramate 50 mg oral tablet 1 tablet = 50 mg, By Mouth, Daily in AM, 0 Refills, Maintenance, 01/07/22 7:06:00 EDT, Partial fillupon patient request if the prescription is for a schedule II opioid drug. Start Date: 01/07/22 Status: Ordered topiramate 50 mg oral tablet See Instructions, TAKE 1 TABLET IN THE MORNING AND 3 TABLETS AT BEDTIME., # 120 tablet, 5 Refills, [facility], 163, cm, 06/13/21 9:32:00 EST, Height, 81, kg, 01/28/21 22:15:00 EDT, Dry Weight Start Date: 07/04/21 Status: Ordered Trelegy Ellipta Inhalation, Daily, 0 Refills, Maintenance, 09/07/21 10:15:00 EDT, Partial fill upon patient requestif the prescription is for a schedule II opioid drug. Start Date: 09/07/21 Status: Ordered Trileptal 300 mg oral tablet See Instructions, 1.5 tabs BID, Refills 0, Maintenance, 02/10/21 14:37:00 EDT, Instructions ReplaceRequired Details, Partial fill upon patient request if the prescription is for a schedule II opioiddrug. Start Date: 02/10/21 Status: Ordered Tylenol 8 Hour Caplet 650 mg oral tablet, extended release 1 tablet = 650 mg, By Mouth, Every 8 hours, # 30 tablet, 0 Refills, Maintenance, 08/03/17 11:58:28 Start Date: 08/03/17 Status: Ordered Vraylar 3 mg oral capsule = 3 mg, By Mouth, Daily, 0 Refills, Maintenance, 01/05/22 9:12:00 EDT, Partial fill upon patient request if the prescription is for a schedule II opioid drug. Start Date: 01/05/22 Status: Ordered Xolair 150 mg subcutaneous injection See Instructions, 300 mg Subcutaneous Injection, 0 Refills, Maintenance, 01/07/22 6:52:00 EDT, Partial fill upon patient request if the prescription is for a schedule II opioid drug. 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 Esophageal reflux (GERD) Confirmed Active FMF (familial Mediterranean fever) Confirmed Active Hepatic steatosis Confirmed Active Hyperparathyroidism - lithum induced Confirmed Active IBS - Irritable bowel syndrome Confirmed Active 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 Confirmed Active Migraine Confirmed 01/04/11 Active Nephrocalcinosis - right kidney, 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
--- OUTSIDE RECORDS SUMMARY | 2024-01-11 13:40 | XMS_ITS | Continuity of Care Document ---
Author Organization [facility] Address [address] [place] [address] [address] [place] [address]- Care Team Providers Care Public Health Program Manager Name Role Phone Miles OTOOLE, Bernie Hardy Primary Care Physician [phone] Encounter [facility] Date(s): 02/01/22 - 03/03/22 [facility] [address] [place], [place] [address] Attending Physician: Admtr, [place] Admitting Physician: Adm[place] Referring Physician: Admtr, Ar8 Allergies, Adverse Reactions, Alerts Substance Reaction Severity Status azithromycin 1 increases sx's Active morphine vomiting Active Flonase rhinitis Active Augmentin 2 increases sx Active Reglan double vision Active Demerol HCl vomiting Active Adhesive Bandage rash Active Cats sneezing Active 1Diarrhea 2makes sicker [...] (oldterm) 8 03/14/09 Given 1Result Comment: [02/13/2018] [id number] 2Result Comment: [02/08/2017] [facility] [id number] 3Result Comment: [01/24/2013] ORDERRED BY GINA GAINES MD 4Result Comment: [09/19/2017] [id number] 5Admin Note: vis given 6Admin Note: BIOMEDICAL [...] cm, 07/18/21 14:49:00 EST, Height, 81, kg, 09... Start Date: 07/22/21 Status: Ordered cyclobenzaprine 10 [...] opioid drug. Start Date: 01/06/22 Status: Ordered metFORMIN 500 mg oral tablet 1 tablet = 500 mg, By Mouth, 2 times a day, # 60 tablet, 0 Refills, Maintenance, 03/03/22 14:43:00 EDT, Tablet, [facility], Partial fill upon patient request if the prescription is for a schedule II opioid drug., 163, cm, 02/09/22 10:38:... Start Date: 03/03/22 Status: Ordered montelukast 10 mg oral tablet [...] Sex Patient Care team information Personnel Name: Bernie Aquino NP Address: Address: [address], [place] [address]
--- OUTSIDE RECORDS SUMMARY | 2024-01-11 13:40 | XMS_ITS | Continuity of Care Document ---
Author Organization [facility] lt Address [address] [place] [address]- Care Team Providers Care Decator Operator Name Role Phone Gina Bhat MD Primary Care Physician Encounter [facility] Date(s): 08/18/19 - 09/18/19 [facility] Adult [address] [place] [address]- [facility] Attending Physician: Gina Bhat MD Allergies, Adverse Reactions, Alerts Substance Reaction Severity Status morphine vomiting Active Flonase Active Reglan double vision Active Demerol HCl vomiting Active Adhesive Bandage Active Cats Active Other Food Allergy 1 Active 1lemons Immunizations Given and Recorded Vaccine Date Status [...] (oldterm) 8 03/14/09 Given 1Result Comment: [02/13/2018] [id number] 2Result Comment: [02/08/2017] [facility] [id number] 3Result Comment: [01/24/2013] ORDERRED BY GINA BHAT MD 4Result Comment: [09/19/2017] [id number] 5Admin Note: vis given 6Admin Note: BIOMEDICAL MARIELLA 7Admin Note: H1N1 8Admin Note: elsewhere Medications atorvastatin 40 mg oral tablet See Instructions, TAKE ONE TABLET BY MOUTH EVERY DAY, # 90 tablet, 3 Refills, Maintenance, [facility], 163, cm, 07/11/19 11:24:00 EST, Height, 82.6, kg, 05/24/18 7:14:00 EST, Dry Weight Start Date: 08/05/19 Status: Ordered benztropine 1 mg oral tablet See Instructions, 1 1/2 tab in AM and 1 tab in pm, # 45 each, 5 Refills, Maintenance, 04/23/13 9:30:27 EST Start Date: 04/23/13 Status: Ordered Colcrys 0.6 mg oral tablet 1, tablet, By Mouth, 2 times a day, # 60 tablet, Refills 11, Tot. Refills 0, Maintenance, 08/06/19 9:52:00 EDT, Route to Pharmacy Electronically, [facility], 163, cm, 07/11/19 11:24:00 EST, Height, 82.6, kg, 05/24/18 7:14:00 EST, Dry Weight Start Date: 08/06/19 Status: Ordered Contour Next EZ Test Strips See Instructions, # 150 units, Refills 11, Tot. Refills 11, Maintenance, use as directed for IDDM, tests up to 2 times daily, 06/24/18 10:08:46 EST, Compound Start Date: 06/24/18 Stop Date: 06/19/19 Status: Ordered Contour Next lancets Contour Next lancets, See Instructions, # 150 each, Refills 5, Tot. Refills 5, Maintenance, test BG5x daily, E11.9, 06/24/18 16:39:15 EST, Compound Start Date: 06/24/18 Status: Ordered CONTOUR NEXT TEST STRIP CONTOUR NEXT TEST STRIP, 0 Refills, Maintenance, 10/09/18 10:38:30 EDT Start Date: 10/09/18 Status: Ordered cyclobenzaprine 10 mg oral tablet 10 mg, 1, tablet, By Mouth, Daily at bedtime, PRN, # 12 tablet, Refills 0, Tot. Refills 0, Maintenance, Spasm, 01/06/19 11:51:55 EDT, Route to Pharmacy Electronically, [id number], [facility] Start Date: 01/06/19 Status: Ordered EpiPen 2-Juvenal = 0.3 mg, Intramuscular, Once, 0 Refills, Maintenance Start Date: 01/31/11 Status: Ordered Fioricet oral capsule 1 capsule, By Mouth, Once, PRN as needed, repeat in 2 hours if headache is still present, # 12 capsule, 0 Refills, Soft Stop, 08/06/17 9:33:25 EDT, Capsule, 1 capsule By Mouth Once,PRN:as needed,Instr:repeat in 2 hours if headache is still present Start Date: 08/06/17 Status: Ordered folic acid 1 mg oral tablet 4 mg, 4, tablet, By Mouth, Daily, # 120 tablet, Refills 5, Tot. Refills 5, Maintenance, 05/22/19 16:08:00 EST, Route to Pharmacy Electronically, [facility], Patient prescribed increased dose secondary to desiring pregnancywhile on topom... Start Date: 05/22/19 Status: Ordered hydrOXYzine pamoate 50 mg oral capsule 1 capsule = 50 mg, By Mouth, 3 times a day, prn, 0 Refills, Maintenance, 01/11/16 14:10:40 Start Date: 01/11/16 Status: Ordered Immune Globulin Intravenous 20 GMS, IV Infusion, Every 21 days, 0 Refills, Maintenance Start Date: 01/31/11 Status: Ordered lamoTRIgine 300 mg oral tablet, extended release 2 tablet = 600 mg, By Mouth, Daily, 0 Refills, Maintenance, 11/17/13 13:36:47 Start Date: 11/17/13 Status: Ordered Latuda 40 mg oral tablet 1 tablet = 40 mg, By Mouth, Daily, # 90 tablet, 0 Refills, Maintenance, 05/30/19 11:13:00 EST, Tablet Start Date: 05/30/19 Status: Ordered Lipitor 40 mg oral tablet 1 tablet = 40 mg, By Mouth, Daily, # 90 tablet, 1 Refills, Maintenance, 07/20/19 23:41:00 EDT, Tablet, [facility], 163, cm, 07/11/19 11:24:00 EST, Height, 82.6, kg, 05/24/18 7:14:00EST, Dry Weight Start Date: 07/20/19 Status: Ordered lisinopril 2.5 mg oral tablet 2.5 mg, 1, tablet, By Mouth, Daily, # 30 tablet, Refills 11, Tot. Refills 11, Maintenance, 10/10/1915:45:18 EDT, Route to Pharmacy Electronically, [id number], [facility] Start Date: 10/09/18 Status: Ordered lithium 300 mg oral tablet 4 tablet = 1,200 mg, By Mouth, Daily, # 30 tablet, 0 Refills, Maintenance, 11/17/13 13:36:11 EDT, Tablet Start Date: 11/17/13 Status: Ordered metFORMIN 500 mg oral tablet, extended release See Instructions, Take 1 tablet by mouth daily with a meal. If tolerating well increase to 2 tablets twice daily with meals, # 120 tablet, 11 Refills, Maintenance, 10/09/18 17:08:00 EDT Start Date: 10/09/18 Status: Ordered Microlet Lancets Microlet Lancets, See Instructions, # 200 each, Refills 11, Tot. Refills 11, Maintenance, Check blood sugars four times a day DM Type2, 10/17/18 9:10:23 EDT, Compound Start Date: 10/17/18 Status: Ordered omeprazole 20 mg oral enteric coated capsule See Instructions, TAKE ONE CAPSULE BY MOUTH TWICE A DAY, # 60 capsule, 2 Refills, Maintenance, [facility], 163, cm, 07/11/19 11:24:00 EST, Height, 82.6, kg, 05/24/18 7:14:00 EST, Dry Weight Start Date: 07/11/19 Status: Ordered oxyCODONE 5 mg oral tablet 5 mg, 1, tablet, By Mouth, Every 6 hours, PRN, DX: Migraines G43.909 OK to fill less than prescribed amount, # 12 tablet, Refills 0, Tot. Refills 0, Maintenance, for pain, 05/19/16 16:15:06, Print Requisition Start Date: 05/19/16 Status: Ordered Pen [place], 31 G x 5 mm BD Ultra Fine III See Instructions, # 150 each, Refills 6, Tot. Refills 6, Maintenance, for use 4x daily with Lantus and humalog insulin E11.65, 06/24/18 10:09:38 EST, Compound Start Date: 06/24/18 Status: Ordered Singulair 10 mg oral tablet 10 mg, 1, tablet, By Mouth, Daily in PM, # 30 tablet, Refills 11, Tot. Refills 11, Maintenance, 05/30/19 11:43:00 EST, Route to Pharmacy Electronically, [facility], 163, cm, 05/30/19 11:08:00 EST, Height, 82.6, kg, 05/24/18 7:14:00 EST,... Start Date: 05/30/19 Status: Ordered SUMAtriptan 100 mg oral tablet 1 tablet, By Mouth, Daily, PRN NEEDED FOR MIGRAINE, # 9 tablet, Refills 11 Tot. Refills 11, MAY REPEAT DOSE IN 2 HOURS IF NEEDED, [facility] Start Date: 04/14/19 Status: Ordered topiramate 50 mg oral tablet See Instructions, 1 tablet in morning, 3 tablets at bedtime, # 120 tablet, 11 Refills, Maintenance,01/06/19 11:40:13 EDT Start Date: 01/06/19 Status: Ordered Tylenol 8 Hour Caplet 650 mg oral tablet, extended release 1 tablet = 650 mg, By Mouth, Every 8 hours, # 30 tablet, 0 Refills, Maintenance, 08/03/17 11:58:28 Start Date: 08/03/17 Status: Ordered Vraylar 3 mg oral capsule 1 capsule = 3 mg, By Mouth, Every other day, 0 Refills, Maintenance, 09/06/18 14:26:35 EDT Start Date: 09/06/18 Status: Ordered Xolair 150 mg subcutaneous injection Subcutaneous Infusion, Every 14 days, 0 Refills, Maintenance Start Date: 01/31/11 Status: Ordered ZyrTEC 10 mg oral tablet 1 tablet = 10 mg, By Mouth, Daily, # 90 tablet, 3 Refills, Maintenance, 12/13/18 14:27:28 EDT Start Date: 12/13/18 Stop Date: 12/08/19 Status: Ordered Problem List Condition Effective Dates Status Health Status Inform ant Labral tear of hip joint - bilateral(Confirmed) Active Allergic rhinitis(Confirmed) Active Asthma - severe(Confirmed) Active Back pain(Confirmed) Active Bipolar disorder(Confirmed) Active Candidiasis - reucrrent oral and vaginal(Confirmed) Active chronic and recurrent vulvov aginal candidiasis(Confirmed) 11/15/10 Active Chronic headache disorder(Confirmed) Active Hyper-IgE syndrome(Confirmed) Active Congenital Hypogammaglobulinemia(Confirmed) 03/30/11 Active Right patellofemoral instability(Confirmed) Active Esophageal reflux (GERD)(Confirmed) Active FMF (familial Mediterranean fever)(Confirmed) Active Right foot pain(Confirmed) Active Headache(Confirmed) 01/04/11 Active Hepatic steatosis(Confirmed) Active Hyperparathyroidism - lithum induced(Confirmed) Active IBS - Irritable bowel syndrome(Confirmed) Active Impaired fasting glucose(Confirmed) Active Arthritis of lumbar spine(Confirmed) Active Arthritis of lumbar spine(Confirmed) Active Migraine(Confirmed) 01/04/11 Active Musculoskeletal leg pain(Confirmed) 09/10/12 Active 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, 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(Confirmed) Active Nodular goiter - monitoring(Confirmed) Active Obstructive Sleep Apnea not on CPAP(Confirmed) 11/15/10 Active Osteoarthritis of right hip with labral tear(Confirmed) Active Osteoarthritis of hips, bilateral(Confirmed) Active Recurrent acute sinusitis(Confirmed) Active Type 2 diabetes mellitus(Confirmed) Active Dyshidrotic eczema(Confirmed) Active Social History Social History Type Response Smoking Status Never smoker entered on: 01/21/18 Sex
--- OUTSIDE RECORDS SUMMARY | 2024-01-11 13:40 | XMS_ITS | Continuity of Care Document ---
Author Organization [facility] Address [address] [place] [address]- Care Team Providers Care Radial Drill Press Operator For Plastic Name Role Phone Miles OTOOLE, Bernie Hardy Primary Care Physician [phone] Encounter [facility] Date(s): 12/26/21 - 01/25/22 [facility] Adult [address] [place] [address]- Allergies, Adverse Reactions, Alerts Substance Reaction Severity [...] influenza virus vaccine, inactivated 2 02/08/17 Gi tryee influenza virus vaccine, inactivated 03/07/16 Give n [...] (oldterm) 8 03/14/09 Given 1Result Comment: [02/13/2018] [id number] 2Result Comment: [02/08/2017] [facility] [place] 2] [id number] 02 3Result Comment: [01/24/2013] ORDERRED BY GINA GAINES MD 4Result Comment: [09/19/2017] [id number] 5Admin Note: vis given 6Admin Note: BIOMEDICAL MARIELLA 7Admin Note: H1N1 8Admin Note: elsewhere Medications atorvastatin 10 mg oral tablet 1 tablet = 10 mg, By Mouth, Daily, # 90 tablet, 3 Refills, Maintenance, 02/10/21 15:10:00 EDT, [facility], Partial fill upon patient request if the prescription is for a schedule IIopioid drug., 163, cm, 02/10/21 14:31:00 EDT, Height, 8... Start Date: 02/10/21 Status: Ordered Benztropine = 5 mg, By [...] opioid drug. Start Date: 01/07/22 Status: Ordered calcitriol 0.25 mcg oral capsule 1 capsule = 0.25 mcg, By Mouth, 2 times a day, # 30 capsule, 3 Refills, Maintenance, 01/07/22 9:52:00 EDT, Capsule, [facility], Partial fill upon patient request if the prescriptionis for a schedule II opioid drug., 163, cm, 01/06/22 16... Start Date: 01/07/22 Status: Ordered Jade = [...] Dry Weight Start Date: 01/02/22 Status: Ordered Citracal Maximum + D oral tablet 1 tablet, By Mouth, 3 times a day, # 120 tablet, 0 Refills, Maintenance, 01/07/22 9:54:00 EDT, Tablet, [facility], Partial fill upon patient request if the prescription is for a schedule II opioid drug., 1 tablet By Mouth 3 times a day,... Start Date: 01/07/22 Status: Ordered clonazePAM 1 mg oral tablet [...] 12/01/20 15:40:00 EDT, Route to Pharmacy Electronically, [facility], 163,cm, 11/22/20 12:47:00 EDT, Height Start Date: 12/01/20 Status: Ordered EpiPen 2-Juvenal = 0.3 mg, Intramuscular, Once, 0 Refills, Maintenance Start Date: 01/31/11 Status: Ordered Fioricet oral capsule 1 capsule, By Mouth, Once, PRN as needed, repeat in 2 hours if headache is still present, # 30 capsule, 0 Refills, Soft Stop, 05/13/20 10:25:00 EST, Capsule, [facility], 1 capsule By Mouth Once,PRN:as needed,Instr:repeat in 2 hours if he... Start Date: 05/13/20 Status: Ordered fluconazole 150 mg oral tablet 1 tablet = 150 mg, By Mouth, Once, epeat dose if still having symptoms in 72 hours, # 2 tablet, 0 Refills, Soft Stop, 11/01/20 15:04:00 EDT, Tablet, [facility], Partial fill upon patient request if the prescription is for a schedule II o... Start Date: 11/01/20 Status: Ordered hydrOXYzine hydrochloride 10 mg oral [...] opioid drug. Start Date: 05/11/21 Status: Ordered LaMICtal 100 mg oral tablet 500 mg, 5, tablet, By Mouth, Daily at bedtime, # [...] Status: Ordered Trileptal 300 mg oral tablet 300 mg, 1, tablet, By Mouth, 2 times a day, Refills 0, Maintenance, 02/10/21 14:37:00 EDT, Partial fill upon patient request if the prescription is for a schedule II opioid drug. Start Date: 02/10/21 Status: Ordered Trulicity Pen 0.75 mg/0.5 mL subcutaneous solution 0.5 mL = 0.75 mg, Subcutaneous Injection, Every week, rotate injection sites, # 2 mL, 5 Refills, Maintenance, 08/08/21 15:48:00 EDT, Solution, [facility], Partial fill upon patient request if the prescription is for a schedule II opioid... 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 Esophageal reflux (GERD)(Confirmed) Active FMF (familial Mediterranean fever)(Confirmed) Active Hepatic steatosis(Confirmed) Active Hyperparathyroidism - lithum induced(Confirmed) Active IBS - Irritable bowel syndrome(Confirmed) Active Arthritis of lumbar spine(Confirmed) Active Arthritis of lumbar spine(Confirmed) Active Migraine(Confirmed) 01/04/11 Active 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, 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
--- OUTSIDE RECORDS SUMMARY | 2024-01-11 13:40 | XMS_ITS | Continuity of Care Document ---
Author Organization 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 [address] [place] [address]- Allergies, Adverse Reactions, Alerts Substance Reaction Severity [...] (oldterm) 8 03/14/09 Given 1Result Comment: [02/13/2018] [id number] 2Result Comment: [02/08/2017] [facility] [id number] 317 02 3Result Comment: [01/24/2013] ORDERRED BY GINA GAINES MD 4Result Comment: [09/19/2017] [id number] 5Admin Note: vis given 6Admin Note: BIOMEDICAL [...] is for a schedule II opioid drug., barber Barajas, 02/09/22 10:38:... Start Date: 03/03/22 Status: Ordered [...] is for a schedule II opioid drug. 163 cm, 08/29/21 11:01:00 EDT,... Start Date: 09/02/21 [...] Active Nodular goiter - monitoring Confirmed Active Obese class I Confirmed Active Obstructive Sleep Apnea not on [...] Personnel Name: Bernie Aquino NP Address: Address: [address] [place] [id number]-
--- OUTSIDE RECORDS SUMMARY | 2024-01-11 13:40 | XMS_ITS | Continuity of Care Document ---
Author Organization [facility] Address [address] [place] [address]- Care Team Providers Care Sports Physical Therapist Name Role Phone Miles OTOOLE, Bernie Hardy Primary Care Physician [phone] [facility] [place] [facility] [id number] Date(s): 11/16/21 - 01/15/22 [facility] [address] [place], [place] [address] Attending Physician: Gina Bhat MD Admitting Physician: Gina Bhat MD Referring Physician: Gisel Solis MD Allergies, Adverse Reactions, Alerts Substance Reaction [...] (oldterm) 8 03/14/09 Given 1Result Comment: [02/13/2018] [id number] 2Result Comment: [02/08/2017] [facility] [id number] 317 02 3Result Comment: [01/24/2013] ORDERRED BY GINA BHAT MD 4Result Comment: [09/19/2017] [id number] 5Admin Note: vis given 6Admin Note: BIOMEDICAL [...] EDT, Route to Pharmacy Electronically, [facility], 163,cm, 11/22/20 12:47:00 EDT, Height [...] Stop, 11/01/20 15:04:00 EDT, Tablet, [facility], Partial fill upon patient request [...] Team Personnel Name: Bernie Aquino NP Address: [address] [place] [address] [place] [address]-
--- OUTSIDE RECORDS SUMMARY | 2024-01-11 13:40 | XMS_ITS | Continuity of Care Document ---
Author Organization [facility] Address [address] [place] [address]- Care Team Providers Care Research Technician Name Role Phone Miles OTOOLE, Bernie Hardy Primary Care Physician [phone] Encounter [facility] [place] Date(s): 05/18/22 - 06/17/[place] [facility] [place] [facility] [place] [address] [place] [address]- Allergies, Adverse Reactions, Alerts Substance Reaction Severity Status azithromycin 1 increases sx's Active Cats sneezing Active morphine vomiting Active Flonase rhinitis Active Augmentin 2 increases sx Active Reglan double vision Active Demerol HCl vomiting Active Adhesive Bandage rash Active 1Diarrhea 2makes sicker Immunizations Given and [...] (oldterm) 8 03/14/09 Given 1Result Comment: [02/13/2018] [id number] 2Result Comment: [02/08/2017] [facility] [id number] 317 02 3Result Comment: [01/24/2013] ORDERRED BY GINA GAINES MD 4Result Comment: [09/19/2017] [id number] 5Admin Note: vis given 6Admin Note: BIOMEDICAL MARIELLA 7Admin Note: H1N1 8Admin Note: elsewhere Medications aMILoride 5 mg oral tablet 1 tablet = 5 mg, By Mouth, Daily, # 30 tablet, 0 Refills, Maintenance, 06/06/22 7:43:00 EST, Tablet, Partial fill upon patient request if the prescription is for a schedule II opioid drug. Start Date: 06/06/22 Status: Ordered aMILoride 5 mg oral tablet 1 tablet = 5 mg, By Mouth, Daily, # 30 tablet, 0 Refills, Maintenance, 06/06/22 7:48:00 EST, Tablet, Partial fill upon patient request if the prescription is for a schedule II opioid drug. Start Date: 06/06/22 Status: Ordered atorvastatin 20 mg oral tablet 1 tablet = 20 mg, By Mouth, Daily, replace 10mg, # 90 tablet, 3 Refills, Maintenance, 03/23/22 7:19:00 EST, Tablet, [facility], Partial fill upon patient request if the prescriptionis for a schedule II opioid drug., 163, cm, 03/23/22 6:... Start Date: 03/23/22 Status: Ordered benztropine 0.5 mg oral tablet [...] a day, # 60 Unknown, Refills 11, Tot. Refills 11, 05/25/22 6:49:00 EST, Route to Pharmacy Electronically, [facility], 163, cm, 04/04/22 7:05:00 EST, Height, 76.2, kg, 01/06/22 8:38:00 EDT, Dry Weight Start Date: 05/25/22 Status: Ordered Contour Next test strips Contour Next test strips, See Instructions, # 300 each, Refills 6, Tot. Refills 6, Maintenance, check blood glucose 3 times a day and a s needed. Dx code E 11.9 T2DM, 07/22/21 8:03:00 EST, Supply, 163, cm, 07/18/21 14:49:00 EST, Height, 81, kg, 09/... Start Date: 07/22/21 Status: Ordered cyclobenzaprine 10 mg oral tablet 10 mg, 1, tablet, By Mouth, 3 times a day, PRN, # 20 tablet, Refills 1, Tot. Refills 1, Maintenance, Spasm, 12/01/20 15:40:00 EDT, Route to Pharmacy Electronically, [facility], 163,cm, 11/22/20 12:47:00 EDT, Height Start Date: 12/01/20 Status: Ordered Diflucan 150 mg oral tablet 1 tablet = 150 mg, By Mouth, Once, may repeat x 1, # 2 tablet, 0 Refills, Soft Stop, 06/13/22 10:10:00 EST, [facility], Partial fill upon patient request if the prescription is for a schedule II opioid drug., 163, cm, 06/06/22 7:25:00 ES... Start Date: 06/13/22 Status: Ordered Diflucan 150 mg oral tablet 1 tablet = 150 mg, By Mouth, Once, may repeat x 1, # 2 tablet, 0 Refills, Soft Stop, 04/27/22 6:46:00 EST, [facility], Partial fill upon patient request if the prescription is for aschedule II opioid drug., 163, cm, 04/04/22 7:05:00 EST... Start Date: 04/27/22 Status: Ordered Emgality Prefilled Syringe 120 mg/mL subcutaneous solution = 120 mg, Subcutaneous Infusion, Every 28 days, 0 Refills, Maintenance, 06/06/22 7:42:00 EST, Partial fill upon patient request if the prescription is for a schedule II opioid drug. Start Date: 06/06/22 Status: Ordered EpiPen 2-Juvenal = 0.3 mg, [...] if he... Start Date: 05/13/20 Status: Ordered hydrOXYzine hydrochloride 10 mg oral [...] drug. Start Date: 05/11/21 Status: Ordered Januvia 100 mg oral tablet 1 tablet = 100 mg, By Mouth, Daily, replace 50mg, # 30 tablet, 6 Refills, Maintenance, 03/24/22 11:44:00 EST, Tablet, [facility], Partial fill upon patient request if the prescription is for a schedule II opioid drug., 163, cm, 03/23/22... Start Date: 03/24/22 Stop Date: 10/20/22 Status: Ordered LaMICtal 200 mg oral tablet 3 tablet = 600 mg, By Mouth, Daily at bedtime, 0 Refills, Maintenance, 01/29/21 1:51:00 EDT, Partial fill upon patient request if the prescription is for a schedule II opioid drug. Start Date: 01/29/21 Status: Ordered lamotrigine 200 mg oral tablet 1 tablet = 200 mg, By Mouth, Daily, # 30 tablet, 0 Refills, Maintenance, 06/06/22 7:46:00 EST, [facility], Partial fill upon patient request if the prescription is for a schedule IIopioid drug., 163, cm, 06/06/22 7:25:00 EST, Height, 76... Start Date: 06/06/22 Status: Ordered levothyroxine 0.025 mg oral tablet 1 tablet = 25 mcg, By Mouth, Daily, # 30 tablet, 6 Refills, Maintenance, 05/26/22 16:56:00 EST, Tablet, [facility], Partial fill upon patient request if the prescription is for a schedule II opioid drug., 163, cm, 04/04/22 7:05:00 EST, H... Start Date: 05/26/22 Status: Ordered Melatonin 10 mg oral tablet 1 tablet = 10 mg, By Mouth, Daily at bedtime, 0 Refills, Maintenance, 01/06/22 9:01:00 EDT, Partialfill upon patient request if the prescription is for a schedule II opioid drug. Start Date: 01/06/22 Status: Ordered metFORMIN 500 mg oral tablet 2 tablet = 1,000 mg, By Mouth, 2 times a day, # 120 tablet, 6 Refills, Maintenance, 03/24/22 11:44:00 EST, Tablet, [facility], Partial fill upon patient request if the prescription is for a schedule II opioid drug., 163, cm, 03/23/22 6:5... Start Date: 03/24/22 Stop Date: 10/20/22 Status: Ordered montelukast 10 mg oral tablet 10 mg, 1, tablet, By Mouth, Daily, in evening, # 30 tablet, Refills 6, Tot. Refills 6, Maintenance,03/17/22 6:52:00 EDT, Route to Pharmacy Electronically, [facility], Partial fill upon patient request if the prescription is for a schedu... Start Date: 03/17/22 Status: Ordered Multivitamin Daily, 0 Refills, Maintenance, [...] Dry Weight Start Date: 06/13/21 Status: Ordered rizatriptan 10 mg oral tablet [...] Weight Start Date: 01/07/22 Status: Ordered topiramate 50 [...] fever) Confirmed Active Hepatic steatosis Confirmed Active IBS - Irritable bowel syndrome [...] on: 05/12/13 Sex Patient Care team information Care Team Personnel Name: Marisa CHAIDEZ, Neto Osorio Position: [facility] Renal MD Member Role: Lifetime Consulting Physician Address: Address: [address] [place] [address], [facility] [address] [place] [address]- Name: Lore Clinton RN Position: [facility] RN Member Role: Primary Care Nurse Name: Bernie Aquino NP Position: [facility] PCO Associate Professional Member Role: PCP Address: Address: [address] [place] [phone]- [place] Name: Gregg Hardy MD Position: [facility] Pulmonary MD Member Role: Lifetime Consulting Physician Address: Address: [address] [place] [address]- Care Team Related Persons Name: MERRITT SINGLETARY Address: home [address] [place] [address] Name: BLAIRE JACOB Address: home [address] [place] [address]
--- OUTSIDE RECORDS SUMMARY | 2024-01-11 13:40 | XMS_ITS | Continuity of Care Document ---
Author Organization [facility] Address [address] [place] [address]- Care Team Providers Care Milk Driver Name Role Phone Miles OTOOLE, Bernie Hardy Primary Care Physician Encounter [facility] [place] Date(s): 12/23/21 - 01/22/22 [facility] Adult [address] [place] [address]- Allergies, Adverse Reactions, Alerts Substance Reaction Severity [...] (oldterm) 8 03/14/09 Given 1Result Comment: [02/13/2018] [id number] 2Result Comment: [02/08/2017] [facility] [id number] 317 02 3Result Comment: [01/24/2013] ORDERRED BY GINA GAINES MD 4Result Comment: [09/19/2017] [id number] 5Admin Note: vis given 6Admin Note: BIOMEDICAL [...] Personnel Name: Bernie Aquino NP Address: [address] [facility] [place] [address]-
--- OUTSIDE RECORDS SUMMARY | 2024-01-11 13:40 | XMS_ITS | Continuity of Care Document ---
Author Organization [facility] Address [address] [place] [address]- Care Team Providers Care Retoucher Name Role Phone Miles OTOOLE, Bernie Hardy Primary Care Physician En[place] [facility] [place] Date(s): 05/22/22 - 06/21/22 [facility] Adult [address] [place] [address]- Allergies, Adverse Reactions, Alerts Substance Reaction Severity Status azithromycin 1 increases sx's Active morphine vomiting Active Augmentin 2 increases sx Active Adhesive Bandage rash Active Flonase rhinitis Active Reglan double vision Active Demerol HCl [...] (oldterm) 8 03/14/09 Given 1Result Comment: [02/13/2018] [id number] 2Result Comment: [02/08/2017] [facility] [id number] 317 02 3Result Comment: [01/24/2013] ORDERRED BY GINA GAINES MD 4Result Comment: [09/19/2017] [id number] 5Admin Note: vis given 6Admin Note: BIOMEDICAL [...] 05/25/22 6:49:00 EST, Route to Pharmacy Electronically, [facility], 163, cm, 04/04/22 7:05:00 EST, [...] 12/01/20 15:40:00 EDT, Route to Pharmacy Electronically, [facility], 163,cm, 11/22/20 12:47:00 [...] Personnel Name: Marisa CHAIDEZ, Neto Osorio Position: [facility] Renal MD Member Role: Lifetime Consulting Physician Address: Address: [address] [place] [address], [facility] [address] [place] [address]- Name: Lore Clinton RN Position: [facility] RN Member Role: Primary Care Nurse Name: Bernie Aquino NP Position: [facility] PCO Associate Professional Member Role: PCP Address: Address: [address] [place] [address]- [place] Name: Gregg Hardy MD Position: [facility] Pulmonary MD Member Role: Lifetime Consulting Physician Address: Address: [address] [place] [address]- Care Team Related Persons Name: MERRITT SINGLETARY Address: home [address] [place] [address] Name: BLAIRE JACOB Address: home [address] [place] [address]
--- OUTSIDE RECORDS SUMMARY | 2024-01-11 13:40 | XMS_ITS | Continuity of Care Document ---
Author Organization [facility] Juventino David Address [address] [place] [address]- Care Team Providers Care Solar Project Coordination Specialist Name Role Phone Gina Bhat MD Primary Care Physician [facility] Date[facility]): 01/28/21 - 02/04/21 [facility] Adult [address] [place] [address]- Encounter Diagnosis Bipolar disorder(Discharge Diagnosis) - 01/28/21 Attending Physician: Gina Bhat MD Allergies, Adverse Reactions, Alerts Substance Reaction Severity Status azithromycin 1 Active morphine vomiting Active Flonase Active Augmentin 2 Active Reglan double vision Active Demerol HCl vomiting Active Adhesive Bandage Active Cats Active 1Diarrhea 2makes sicker Immunizations Given and [...] (oldterm) 8 03/14/09 Given 1Result Comment: [02/13/2018] [id number] 2Result Comment: [02/08/2017] [facility] [id number] 3Result Comment: [01/24/2013] ORDERRED BY GIAN BHAT MD 4Result Comment: [09/19/2017] [id number] 5Admin Note: vis given 6Admin Note: BIOMEDICAL MARIELLA 7Admin Note: H1N1 8Admin Note: elsewhere Medications atorvastatin 40 mg oral tablet 1 tablet = 40 mg, By Mouth, Daily at bedtime, # 30 tablet, 0 Refills, Maintenance, 01/28/21 18:46:00 EDT, Tablet, Partial fill upon patient request if the prescription is for a schedule II opioid drug. Start Date: 01/28/21 Status: Ordered Benztropine = 0.5 mg, Daily in AM, 0 Refills, Maintenance, 01/28/21 18:48:00 EDT, Partial fill upon patient request if the prescription is for a schedule II opioid drug. Start Date: 01/28/21 Status: Ordered benztropine 1 mg oral tablet See Instructions, 1 tab hs, # 45 each, 5 Refills, Maintenance, 04/23/13 9:30:27 EST Start Date: 04/23/13 Status: Ordered Jade = 0.35 mg, By Mouth, Daily, 0 Refills, Maintenance, 01/16/20 10:54:00 EDT Start Date: 01/16/20 Status: Ordered cetirizine 10 mg oral tablet See Instructions, TAKE ONE TABLET BY MOUTH EVERY DAY, # 90 tablet, 1 Refills, [facility], 163, cm, 11/22/20 12:47:00 EDT, Height Start Date: 01/02/21 Status: Ordered clonazePAM 1 mg oral tablet 1 tablet = 1 mg, 0 Refills, Maintenance, 09/23/20 9:59:00 EDT, Partial fill upon patient request ifthe prescription is for a schedule II opioid drug. Start Date: 09/23/20 Status: Ordered colchicine 0.6 mg oral tablet 0.6 mg, 1, tablet, By Mouth, 2 times a day, DX: Familial mediterreanen fever, # 60 tablet, Refills 11, Tot. Refills 11, Maintenance, 05/18/20 17:15:00 EST, Route to Pharmacy Electronically, [facility], D/C RX ON FILE FOR COLCRYS, 163, c... Start Date: 05/18/20 Status: Ordered Contour Next EZ Test Strips See Instructions, # 150 units, Refills 11, Tot. Refills 11, Maintenance, use as directed for IDDM, tests up to 2 times daily, 06/24/18 10:08:46 EST, Compound Start Date: 06/24/18 Stop Date: 06/19/19 Status: Ordered Contour Next lancets Contour Next lancets, See Instructions, # 300 each, Refills 8, Tot. Refills 8, Maintenance, check blood glucose 3 times a day and a s needed. Dx code E 11.9 T2DM, 01/23/20 15:59:00 EDT, Supply, 163, cm, 01/16/20 10:48:00 EDT, Height, 82.6, kg, 05/14... Start Date: 01/23/20 Status: Ordered Contour Next lancets Contour Next lancets, See Instructions, # 150 each, Refills 5, Tot. Refills 5, Maintenance, test BG5x daily, E11.9, 06/24/18 16:39:15 EST, Compound Start Date: 06/24/18 Status: Ordered CONTOUR NEXT TEST STRIP CONTOUR NEXT TEST STRIP, 0 Refills, Maintenance, 10/09/18 10:38:30 EDT Start Date: 10/09/18 Status: Ordered Contour Next test strips Contour Next test strips, See Instructions, # 300 each, Refills 8, Tot. Refills 8, Maintenance, check blood glucose 3 times a day and a s needed. Dx code E 11.9 T2DM, 01/23/20 15:59:00 EDT, Supply, 163, cm, 01/16/20 10:48:00 EDT, Height, 82.6, kg,... Start Date: 01/23/20 Status: Ordered cyclobenzaprine 10 mg oral tablet [...] Refills, Soft Stop, 11/01/20 15:04:00 EDT, Tablet, [facility], Partial fill upon patient request if the prescription is for a schedule II o... Start Date: 11/01/20 Status: Ordered hydrOXYzine pamoate 50 mg oral capsule 1 capsule = 50 mg, By Mouth, 3 times a day, prn, 0 Refills, Maintenance, 01/11/16 14:10:40 Start Date: 01/11/16 Status: Ordered LaMICtal 200 mg oral tablet 3 tablet = 600 mg, By Mouth, Daily at bedtime, 0 Refills, Maintenance, 01/29/21 1:51:00 EDT, Partial fill upon patient request if the prescription is for a schedule II opioid drug. Start Date: 01/29/21 Status: Ordered lisinopril 2.5 mg oral tablet 1, tablet, By Mouth, Daily, # 30 tablet, Refills 11, Tot. Refills 0, Maintenance, 10/26/20 11:52:00EDT, Route to Pharmacy Electronically, [facility], 163, cm, 09/23/20 9:42:00 EDT,Height Start Date: 10/26/20 Status: Ordered lithium 300 mg oral tablet 4 tablet = 1,200 mg, By Mouth, Daily, # 30 tablet, 0 Refills, Maintenance, 11/17/13 13:36:11 EDT, Tablet Start Date: 11/17/13 Status: Ordered metFORMIN 500 mg oral tablet, extended release See Instructions, 2 tablets twice daily with meals, # 120 tablet, 5 Refills, Maintenance, 10/04/20 11:38:00 EDT, [facility], 163, cm, 09/23/20 9:42:00 EDT, Height Start Date: 10/04/20 Status: Ordered Microlet Lancets Microlet Lancets, See Instructions, # 200 each, Refills 11, Tot. Refills 11, Maintenance, Check blood sugars four times a day DM Type2, 10/17/18 9:10:23 EDT, Compound Start Date: 10/17/18 Status: Ordered Misc Rx Refills 0, Maintenance, 01/28/21 18:58:00 EDT, Supply Start Date: 01/28/21 Status: Ordered Multivitamin Daily, 0 Refills, Maintenance, 07/26/20 8:46:00 EDT, Partial fill upon patient request if the prescription is for a schedule II opioid drug. Start Date: 07/26/20 Status: Ordered omeprazole 20 mg oral enteric coated capsule 1 capsule, By Mouth, 2 times a day, # 180 capsule, 0 Refills, Maintenance, 10/26/20 14:34:00 EDT, [facility], 163, cm, 09/23/20 9:42:00 EDT, Height Start Date: 10/26/20 Status: Ordered ondansetron 8 mg oral tablet 1 tablet = 8 mg, By Mouth, 3 times a day, PRN Nausea & Vomiting, # 30 tablet, 0 Refills, Maintenance, 10/01/19 15:46:00 EDT, Tablet, [facility], 163, cm, 10/01/19 13:40:00 EDT, Height, 82.6, kg, 05/24/18 7:14:00 EST, Dry Weight Start Date: 10/01/19 Status: Ordered Pen [place], 31 G x 5 mm BD Ultra Fine III See Instructions, # 150 each, Refills 6, Tot. Refills 6, Maintenance, for use 4x daily with Lantus and humalog insulin E11.65, 06/24/18 10:09:38 EST, Compound Start Date: 06/24/18 Status: Ordered Pen [place], 31 G x 5 mm BD Ultra Fine III See Instructions, # 300 each, Refills 0, Tot. Refills 0, Maintenance, use with Novolog pen, 01/21/20 16:59:00 EDT, T2DM E11.9, Supply, 163, cm, 01/16/20 10:48:00 EDT, Height, 82.6, kg, 05/24/18 7:14:00 EST, Dry Weight Start Date: 01/21/20 Stop Date: 02/20/20 Status: Ordered Singulair 10 mg oral tablet 10 mg, 1, tablet, By Mouth, Daily in PM, # 90 tablet, Refills 3, Tot. Refills 3, Maintenance, 07/26/20 10:28:00 EDT, Route to Pharmacy Electronically, [facility], 163, cm, 07/26/20 8:40:00 EDT, Height Start Date: 07/26/20 Status: Ordered SUMAtriptan 100 mg oral tablet 1 tablet, By Mouth, Daily, PRN NEEDED FOR MIGRAINE, MAY REPEAT DOSE IN 2 HOURS IF NEEDED, # 9 tablet, 11 Refills, Soft Stop, 05/10/20 14:37:00 EST, [facility], 163, cm, 01/16/20 10:48:00 EDT, Height, 82.6, kg, 05/24/18 7:14:00 ESTDr... Start Date: 05/10/20 Status: Ordered topiramate 50 mg oral tablet See Instructions, 1 tablet in morning, 3 tablets at bedtime, # 120 tablet, 5 Refills, Maintenance, 01/21/21 15:35:00 EDT, [facility], 163, cm, 11/22/20 12:47:00 EDT, Height Start Date: 01/21/21 Status: Ordered Trulicity Pen 0.75 mg/0.5 mL subcutaneous solution = 0.75 mg, Subcutaneous Infusion, 0 Refills, Maintenance, 01/28/21 18:51:00 EDT, Partial fill upon patient request if the prescription is for a schedule II opioid drug. Start Date: 01/28/21 Status: Ordered Tylenol 8 Hour Caplet 650 mg oral tablet, extended release 1 tablet = 650 mg, By Mouth, Every 8 hours, # 30 tablet, 0 Refills, Maintenance, 08/03/17 11:58:28 Start Date: 08/03/17 Status: Ordered Xolair 150 mg subcutaneous injection Subcutaneous Infusion, Every 14 days, 0 Refills, Maintenance Start Date: 01/31/11 Status: Ordered ziprasidone 20 mg oral capsule 1 capsule = 20 mg, By Mouth, Daily in AM, 0 Refills, Maintenance, 01/28/21 18:49:00 EDT, Partial fill upon patient request if the prescription is for a schedule II opioid drug. Start Date: 01/28/21 Status: Ordered Problem List Condition Effective Dates [...] 2 diabetes mellitus(Confirmed) Active Dyshidrotic eczema(Confirmed) Active Diagnosis Diagnosis Type Effective Dates Health Status Cl inical Service Informant Bipolar disorder Discharge Diagnosis 01/28/21 Vital Signs Most recent to oldest [Reference Range]: 1 Height 163 cm (01/28/21 1:10 PM) Weight 84.7 kg (01/28/21 1:10 PM) Oxygen Saturation [94-100 %] 98 % (01/28/21 1:10 PM) Pulse Rate [55-90 bpm] 98 bpm *H* (01/28/21 1:10 PM) Body Mass Index [18.5-24.99] 31.88 *>HHI* (01/28/21 1:10 PM) Blood Pressure [90-138/55-84 mm Hg] 100/ 70mm Hg (01/28/21 1:10 PM) Respiratory Rate [16-30 br/min] 18 br/mi n (01/28/21 1:10 PM) Temperature [96.8-100.4 DegF] 98.1 DegF (01/28/21 1:10 PM) Mode of Delivery (Oxygen) Room air (01/28/21 1:10 PM) Blood pressure sites Arm, left (01/28/21 1:10 PM) Temperature Route Oral (01/28/21 1:10 PM) Weight Obtained Via Standing scale (01/28/21 1:10 PM) Social History Social History Type Response Smoking Status Never smoker entered on: 01/21/18 Sex
--- OUTSIDE RECORDS SUMMARY | 2024-01-11 13:40 | XMS_ITS | Continuity of Care Document ---
Author Organization [facility] [place] David Address [address] [place] [address]- Care Team Providers Care Certified Alcohol Drug Counselor Name Role Phone Gina Bhat MD Primary Care Physician [facility] Date[facility]s): 09/22/19 - 09/29/19 [facility] [place] [facility] [address] [place] [address]- [facility] Encounter Diagnosis Migraine(Discharge Diagnosis) - 09/22/19 Attending Physician: Gina Bhat MD Allergies, Adverse [...] Fluvirin (oldterm) 01/23/11 Given pneumococcal 23-valent vaccine 8/8/10 Given influ virus vac, H1N1, inactive(oldterm) 7 05/04/09 Given Influenza Virus Vaccine (oldterm) 8 03/14/09 Given 1Result Comment: [02/13/2018] [id number] 2Result Comment: [02/08/2017] [facility] [id number] 3Result Comment: [01/24/2013] ORDERRED BY GINA BHAT MD 4Result Comment: [09/19/2017] [id number] 5Admin Note: vis given 6Admin Note: BIOMEDICAL [...] 01/06/19 11:51:55 EDT, Route to Pharmacy Electronically, [id number], [facility] Start Date: 01/06/19 Status: Ordered [...] 05/22/19 16:08:00 EST, Route to Pharmacy Electronically, [facility], Patient prescribed increased dose secondary [...] Maintenance, 10/10/1915:45:18 EDT, Route to Pharmacy Electronically, [id number], [facility] Start Date: [...] Requisition Start Date: 05/19/16 Status: Ordered Pen [place], 31 G x 5 mm BD Ultra Fine III See Instructions, # 150 each, Refills 6, Tot. Refills 6, Maintenance, for use 4x daily with Lantus and humalog insulin E11.65, 06/24/18 10:09:38 EST, Compound Start Date: 06/24/18 Status: Ordered prochlorperazine 5 mg oral tablet 1 tablet = 5 mg, By Mouth, 3 times a day, PRN Nausea, # 30 tablet, 0 Refills, Maintenance, 09/21/2010:28:00 EDT, Tablet, [facility], 163, cm, 07/11/19 11:24:00 EST, Height, 82.6, kg, 05/24/18 7:14:00 EST, Dry Weight Start Date: 09/22/19 Status: Ordered Singulair 10 mg oral tablet 10 mg, 1, tablet, By Mouth, Daily in PM, # 30 tablet, Refills 11, Tot. Refills 11, Maintenance, 05/30/19 11:43:00 EST, Route to Pharmacy Electronically, [facility], 163, cm, 05/30/19 11:08:00 EST, Height, 82.6, kg, 05/24/18 7:14:00 EST,... Start Date: 05/30/19 Status: Ordered SUMAtriptan 100 mg oral tablet 1 tablet, By Mouth, Daily, PRN NEEDED FOR MIGRAINE, # 9 tablet, Refills 11 Tot. Refills 11, MAY REPEAT DOSE IN 2 HOURS IF NEEDED, [facility] Start Date: 04/14/19 Status: Ordered [...] Diagnosis Diagnosis Type Effective Dates Health Status Clini kamron Service Informant Migraine Discharge Diagnosis 09/22/19 Social History Social History Type Response Smoking Status Never smoker entered on: 01/21/18 Sex
--- OUTSIDE RECORDS SUMMARY | 2024-01-11 13:40 | XMS_ITS | Continuity of Care Document ---
Author Organization [facility] Juventino David lt Address [address] [place] [address]- Care Team Providers Care Storehouse Clerk Name Role Phone Miles OTOOLE, Bernie Hardy Primary Care Physician [phone] Encounter [facility] Date(s): 05/21/23 - 06/20/23 [facility] Adult [address] [place] [address]- Allergies, Adverse Reactions, Alerts Substance Reaction Severity Status azithromycin 1 increases sx's Active morphine vomiting Active Flonase rhinitis Active Augmentin 2 increases sx Active Reglan double vision Active Demerol HCl vomiting Active Adhesive Bandage rash Active Cats sneezing Active NSAIDs Active 1Diarrhea 2makes sicker Immunizations Given and Recorded Vaccine Date Status Refusal Reason tetanus/diphtheria/pertussis, acel(Tdap) 07/05/22 Given tetanus/diphtheria/pertussis, acel(Tdap) 1 09/19/17 Given tetanus/diphtheria/pertussis, acel(Tdap) 12/08/07 Given tetanus/diphtheria/pertussis, acel(Tdap) 12/08/07 Given influenza virus vaccine, inactivated 02/19/19 Give n influenza virus vaccine, inactivated 2 02/13/18 Gi tyree influenza virus vaccine, inactivated 3 02/08/17 Gi tyree influenza virus vaccine, inactivated 03/07/16 Give n influenza virus vaccine, inactivated 03/02/15 Give n influenza virus vaccine, inactivated 02/11/14 Give n influenza virus vaccine, inactivated 4 01/24/13 Gi tyree pneumococcal 13-valent vaccine 05/13/14 Given FluLaval (oldterm) 5 01/05/12 Given FluLaval (oldterm) 6 02/16/10 Given Fluvirin (oldterm) 01/23/11 Given pneumococcal 23-valent vaccine 12/19/09 Given influ virus vac, H1N1, inactive(oldterm) 7 05/04/09 Given Influenza Virus Vaccine (oldterm) 8 03/14/09 Given 1Result Comment: [09/19/2017] [id number] 2Result Comment: [02/13/2018] [id number] 3Result Comment: [02/08/2017] [facility] [id number] 4Result Comment: [01/24/2013] ORDERRED BY GINA GAINES MD 5Admin Note: vis given 6Admin Note: BIOMEDICAL MARIELLA 7Admin Note: H1N1 8Admin Note: elsewhere Medications aMILoride 5 mg oral tablet 2 tablet = 10 mg, By Mouth, Daily, 0 Refills, Maintenance, 06/06/23 7:50:00 EST, Partial fill upon patient request if the prescription is for a schedule II opioid drug. Start Date: 06/06/23 Stop Date: 07/06/23 Status: Ordered atorvastatin 20 mg oral tablet 1 tablet, By Mouth, Daily, REPLACING 10MG, # 90 tablet, 1 Refills, Maintenance, 02/25/23 21:51:00 EDT, [facility], 163, cm, 11/13/22 8:37:00 EDT, Height, 76.2, kg, 01/06/22 8:38:00 EDT, Dry Weight Start Date: 02/25/23 Status: Ordered benztropine 0.5 mg oral tablet [...] Daily, # 90 tablet, 1 Refills, Maintenance, 01/01/23 12:44:00 EDT, [facility], 163, cm, 11/13/22 8:37:00 EDT, Height, 76.2, kg, 01/06/22 8:38:00 EDT, Dry Weight Start Date: 01/01/23 Status: Ordered clonazePAM 1 mg oral tablet 1 tablet = 1 mg, PRN Anxiety, 0 Refills, Maintenance, 09/23/20 9:59:00 EDT, Partial fill upon patient request if the prescription is for a schedule II opioid drug. Start Date: 09/23/20 Status: Ordered colchicine 0.6 mg oral tablet 1, tablet, By Mouth, 2 times a day, # 60 Unknown, Refills 11, Maintenance, 05/21/23 11:57:00 EST, Route to Pharmacy Electronically, [facility], 163, cm, 03/07/23 8:42:00 EDT, Height, 76.2, kg, 01/06/22 8:38:00 EDT, Dry Weight Start Date: 05/21/23 Status: Ordered Contour Next test strips Contour [...] may repeat x 1, # 2 tablet, 1 Refills, Soft Stop, 06/06/23 7:49:00 EST, [facility], Partial fill upon patient request if the prescription is for aschedule II opioid drug., 163, cm, 06/06/23 7:29:00 EST... Start Date: 06/06/23 Status: Ordered Emgality Prefilled Syringe 120 mg/mL [...] opioid drug. Start Date: 01/07/22 Status: Ordered Immune Globulin Intramuscular 20 GRAMS EVERY 3 WEEKS, 0 Refills, Maintenance, 05/11/21 10:18:00 EST, Partial fill upon patient request if the prescription is for a schedule II opioid drug. Start Date: 05/11/21 Status: Ordered Januvia 100 mg oral tablet 1 tablet, By Mouth, Daily, # 30 tablet, 5 Refills, Maintenance, 04/23/23 11:08:00 EST, [facility], 163, cm, 03/07/23 8:42:00 EDT, Height, 76.2, kg, 01/06/22 8:38:00 EDT, Dry Weight Start Date: 04/23/23 Status: Ordered lamotrigine 200 mg oral tablet 1 tablet = 200 mg, By Mouth, Daily, # 30 tablet, 0 Refills, Maintenance, 06/06/22 7:46:00 EST, [facility], Partial fill upon patient request if the prescription is for a schedule IIopioid drug., 163, cm, 06/06/22 7:25:00 EST, Height, 76... Start Date: 06/06/22 Status: Ordered levothyroxine 0.05 mg oral tablet 1 tablet = 50 mcg, By Mouth, Daily, Go for blood test in 6 weeks., # 30 tablet, 6 Refills, Maintenance, 03/29/23 9:55:00 EST, Tablet, [facility], Partial fill upon patient request if the prescription is for a schedule II opioid drug., 16... Start Date: 03/29/23 Status: Ordered lithium 150 mg oral capsule 1 capsule = 150 mg, By Mouth, 2 times a day, 0 Refills, Maintenance, 06/06/23 7:51:00 EST, Capsule,Partial fill upon patient request if the prescription is for a schedule II opioid drug. Start Date: 06/06/23 Status: Ordered Macrobid macrocrystals-monohydrate 100 mg oral capsule 1 capsule = 100 mg, By Mouth, 2 times a day, # 14 capsule, 0 Refills, Maintenance, 06/06/23 7:34:00EST, Capsule, Partial fill upon patient request if the prescription is for a schedule II opioid drug. Start Date: 06/06/23 Stop Date: 06/13/23 Status: Ordered Melatonin 10 mg oral tablet 1 tablet = 10 mg, By Mouth, Daily at bedtime, 0 Refills, Maintenance, 01/06/22 9:01:00 EDT, Partialfill upon patient request if the prescription is for a schedule II opioid drug. Start Date: 01/06/22 Status: Ordered metFORMIN 500 mg oral tablet 2 tablet, By Mouth, 2 times a day, # 120 tablet, 5 Refills, Maintenance, 04/23/23 11:08:00 EST, [facility], 163, cm, 03/07/23 8:42:00 EDT, Height, 76.2, kg, 01/06/22 8:38:00 EDT, Dry Weight Start Date: 04/23/23 Status: Ordered montelukast 10 mg oral tablet 1, tablet, By Mouth, Daily in PM, # 30 tablet, Refills 5, Maintenance, 03/27/23 23:12:00 EST[facility], 163, cm, 03/07/23 8:42:00 EDT, Height, 76.2, kg, 01/06/22 8:38:00 EDT, Dry Weight Start Date: 03/27/23 Status: Ordered Multivitamin Daily, 0 Refills, Maintenance, 07/26/20 8:46:00 EDT, Partial fill upon patient request if the prescription is for a schedule II opioid drug. Start Date: 07/26/20 Status: Ordered omeprazole 40 mg oral enteric coated capsule 1 capsule = 40 mg, By Mouth, 2 times a day, # 60 capsule, 6 Refills, Maintenance, 10/26/22 11:06:00EDT, [facility], Partial fill upon patient request if the prescription is for a schedule II opioid drug., 163, cm, 09/04/22 7:38:00 EDT,... Start Date: 10/26/22 Status: Ordered ondansetron 8 mg oral tablet [...] AT BEDTIME., # 120 tablet, 5 Refills, 09/04/22 8:06:00 EDT, [facility], 163, cm, 09/04/22 7:38:00 EDT, Height, 76.2, kg,01/06/22 8:38:00 EDT, Dry Weight Start Date: 09/04/22 Status: Ordered Trelegy Ellipta Inhalation, Daily, 0 [...] Personnel Name: Marisa CHAIDEZ, Neto Osorio Position: [facility] Renal MD Member Role: Lifetime Consulting Physician Address: Address: [address] [place] [address] [address] [facility] [place] [address]- [place] Name: Lore Clinton RN Position: [facility] RN Member Role: Primary Care Nurse Name: Miles OTOOLE, Bernie Hardy Position: [facility] PCO Associate Professional Member Role: PCP Address: Address: [address] [place] [id number]- [place] Name: Gregg Hardy MD Position: [facility] Pulmonary MD Member Role: Lifetime Consulting Physician Address: Address: [address] [place] [id number]- Care Team Related Persons Name: ONDINA SINGLETARY Address: home [address] [place] [address] Name: BLAIRE JACOB Address: home [address] [place] [address]
--- OUTSIDE RECORDS SUMMARY | 2024-01-11 13:41 | XMS_ITS | Continuity of Care Document ---
Author Organization [facility] Address [address] [place] [address]- Care Team Providers Care Pulpwood Buyer Name Role Phone Miles OTOOLE, Bernie Hardy Primary Care Physician Encounter [facility] Date(s): 05/02/22 - 06/01/22 [facility] [address] [place], [place] [address] Attending Physician: Brooklyn Shankar Admitting Physician: AdmBrooklyn lopez Referring Physician: Admtr, Brooklyn Allergies, Adverse Reactions, Alerts Substance Reaction Severity [...] (oldterm) 8 03/14/09 Given 1Result Comment: [02/13/2018] [id number] 2Result Comment: [02/08/2017] [facility] [id number] 3Result Comment: [01/24/2013] ORDERRED BY GINA GAINES MD 4Result Comment: [09/19/2017] [id number] 5Admin Note: vis given 6Admin Note: BIOMEDICAL MARIELLA 7Admin Note: H1N1 8Admin Note: elsewhere Medications atorvastatin 20 mg oral tablet 1 tablet = 20 mg, By Mouth, Daily, replace 10mg, # 90 tablet, 3 Refills, Maintenance, 03/23/22 7:19:00 EST, Tablet, [facility], Partial fill upon patient request if the prescriptionis for a schedule II opioid drug., 163, cm, 03/23/22 6:... Start Date: 03/23/22 Status: Ordered Benztropine = 5 mg, By [...] 05/25/22 6:49:00 EST, Route to Pharmacy Electronically, [facility], 163, cm, 04/04/22 7:05:00 EST, [...] 7:05:00 EST... Start Date: 04/27/22 Status: Ordered EpiPen 2-Juvenal = 0.3 mg, [...] Date: 03/24/22 Stop Date: 10/20/22 Status: Ordered Januvia 50 mg oral tablet [...] opioid drug. Start Date: 01/29/21 Status: Ordered levothyroxine 0.025 mg oral tablet [...] opioid drug. Start Date: 01/06/22 Status: Ordered Pepcid 20 mg oral tablet 1 tablet = 20 mg, By Mouth, 2 times a day, # 60 tablet, 0 Refills, Maintenance, 04/04/22 7:17:00 EST, Tablet, Partial fill upon patient request if the prescription is for a schedule II opioid drug. Start Date: 04/04/22 Status: Ordered potassium chloride 10 mEq oral capsule, extended release 2 capsule = 20 mEq, By Mouth, Daily, # 60 capsule, 1 Refills, Maintenance, 03/24/22 11:45:00 EST, [facility], Partial fill upon patient request if the prescription is for a scheduleII opioid drug., 163, cm, 03/23/22 6:51:00 EST, Height,... Start Date: 03/24/22 Stop Date: 05/23/22 Status: Ordered rizatriptan 10 mg oral tablet [...] Marisa CHAIDEZ, Neto Osorio Position: [facility] Renal MD Member Role: Lifetime Consulting Physician Address: Address: [address] [place] [address], [address] [place] [address]- [place] Name: Lore Clinton RN Position: [facility] RN Member Role: Primary Care Nurse Name: Miles OTOOLE, Bernie Hardy Position: [facility] PCO Associate Professional Member Role: PCP Address: Address: [address] [place] [phone]- [place] Name: Gregg Hardy MD Position: [facility] Pulmonary MD Member Role: Lifetime Consulting Physician Address: Address: [address] [place] [address]- Care Team Related Persons Name: MERRITT SINGLETARY Address: [address] [place] [address] Name: BLAIRE JACOB Address: home [address] [place] [address]
--- OUTSIDE RECORDS SUMMARY | 2024-01-11 13:41 | XMS_ITS | Continuity of Care Document ---
Author Organization [facility] Juventino David lt Address [address] [place] [address]- Care Team Providers Care Filling Winder Name Role Phone Miles OTOOLE, Bernie Hardy Primary Care Physician [phone] Encounter [facility] Date(s): 12/10/23 - 01/09/24 [facility] Adult [address] [place] [address]- Allergies, Adverse Reactions, Alerts Substance Reaction Severity [...] (oldterm) 8 03/14/09 Given 1Result Comment: [09/19/2017] [id number] 2Result Comment: [02/13/2018] [id number] 3Result Comment: [02/08/2017] [facility] [id number] 4Result Comment: [01/24/2013] ORDERRED BY [...] 06/06/23 Stop Date: 07/06/23 Status: Ordered atorvastatin 40 mg oral tablet 1 tablet = 40 mg, By Mouth, Daily, replace 20mg, # 90 tablet, 2 Refills, Maintenance, 09/11/23 10:04:00 EDT, Tablet, [facility], Partial fill upon patient request if the prescription is for a schedule II opioid drug., 163, cm, 09/06/23 1... Start Date: 09/11/23 Status: Ordered benztropine 0.5 mg oral tablet [...] Daily, # 90 tablet, 1 Refills, Maintenance, 07/09/23 14:12:00 EST, [facility], 163, cm, 06/06/23 7:29:00 EST, Height, 76.2, kg, 01/06/22 8:38:00 EDT, Dry Weight Start Date: 07/09/23 Status: Ordered clonazePAM 1 mg oral tablet 1 tablet = 1 mg, PRN Anxiety, 0 Refills, Maintenance, 09/23/20 9:59:00 EDT, Partial fill upon patient request if the prescription is for a schedule II opioid drug. Start Date: 09/23/20 Status: Ordered Colace sodium 100 mg oral capsule 100 mg, 1, capsule, By Mouth, 2 times a day, PRN, # 60 capsule, Refills 4, Tot. Refills 4, Maintenance, for constipation, 12/03/23 9:37:00 EDT, Route to Pharmacy Electronically, [facility], Partial fill upon patient request if the prescr... Start Date: 12/03/23 Stop Date: 05/01/24 Status: Ordered colchicine 0.6 mg oral tablet 1, tablet, By Mouth, 2 times a day, # 60 Unknown, Refills 11, Maintenance, 05/21/23 11:57:00 EST, Route to Pharmacy Electronically, [facility], 163, cm, 03/07/23 8:42:00 EDT, Height, 76.2, kg, 01/06/22 8:38:00 EDT, Dry Weight Start Date: 05/21/23 Status: Ordered Combivent Respimat 20 mcg-100 mcg/inh inhalation aerosol 1 puffs, Inhalation, 4 times a day, # 1 each, 0 Refills, Maintenance, 10/15/23 8:40:00 EDT, [facility], Partial fill upon patient request if the prescription is for a schedule II opioid drug., 1 puffs Inhalation 4 times a day,x30 days, 1... Start Date: 10/15/23 Stop Date: 11/14/23 Status: Ordered Contour Next test strips Contour Next test strips, See Instructions, # 300 each, Refills 6, Tot. Refills 6, Maintenance, check blood glucose 3 times a day and a s needed. Dx code E 11.9 T2DM, 12/11/23 10:29:00 EDT, Supply, 163, cm, 11/20/23 7:24:00 EDT, Height, 76.2, kg, 0... Start Date: 12/11/23 Status: Ordered cyclobenzaprine 10 mg oral tablet 10 mg, 1, tablet, By Mouth, 3 times a day, PRN, # 20 tablet, Refills 1, Tot. Refills 1, Maintenance, Spasm, 12/01/20 15:40:00 EDT, Route to Pharmacy Electronically, [facility], 163,cm, 11/22/20 12:47:00 EDT, Height Start Date: 12/01/20 Status: Ordered Emgality Prefilled Syringe 120 mg/mL subcutaneous solution = 120 mg, Subcutaneous Infusion, Every 28 days, 0 Refills, Maintenance, 06/06/22 7:42:00 EST, Partial fill upon patient request if the prescription is for a schedule II opioid drug. Start Date: 06/06/22 Status: Ordered EpiPen 2-Juvenal = 0.3 mg, Intramuscular, Once, 0 Refills, Maintenance Start Date: 01/31/11 Status: Ordered ferrous sulfate 324 mg (65 mg elemental iron) oral delayed release tablet 1 tablet = 324 mg, By Mouth, Daily, ordered by GI specialist, 0 Refills, Maintenance, 12/10/23 9:42:00 EDT, Partial fill upon patient request if the prescription is for a schedule II opioid drug. Start Date: 12/10/23 Status: Ordered Fioricet oral capsule 1 capsule, [...] tablet, By Mouth, Daily, # 30 tablet, 2 Refills, Maintenance, 10/30/23 15:37:00 EDT, [facility], 163, cm, 10/29/23 10:06:00 EDT, Height, 76.2, kg, 01/06/22 8:38:00 EDT, Dry Weight Start Date: 10/30/23 Status: Ordered Jardiance 10 mg oral tablet 1 tablet = 10 mg, By Mouth, Daily in AM, # 30 tablet, 4 Refills, Maintenance, 12/27/23 6:50:00 EDT,Tablet, [facility], Partial fill upon patient request if the prescription is for a schedule II opioid drug., 163, cm, 12/26/23 11:27:00 E... Start Date: 12/27/23 Status: Ordered lamotrigine 200 mg oral tablet 1 tablet = 200 mg, By Mouth, Daily, # 30 tablet, 0 Refills, Maintenance, 06/06/22 7:46:00 EST, [facility], Partial fill upon patient request if the prescription is for a schedule IIopioid drug., 163, cm, 06/06/22 7:25:00 EST, Height, 76... Start Date: 06/06/22 Status: Ordered levothyroxine 0.05 mg oral tablet See Instructions, 1 tablet By Mouth from sunday to sunday and 1.5 tablets on sunday, # 32 tablet,11 Refills, Maintenance, 10/29/23 10:12:00 EDT, Tablet, [facility], Partial fill upon patient request if the prescription is for a schedu... Start Date: 10/29/23 Status: Ordered lithium 150 mg oral capsule 3 capsule = 450 mg, By Mouth, 2 times a day, 0 Refills, Maintenance, 09/06/23 10:30:00 EDT, Partialfill upon patient request if the prescription is for a schedule II opioid drug. Start Date: 09/06/23 Status: Ordered Macrobid macrocrystals-monohydrate 100 mg oral [...] 2 times a day, # 120 tablet, 2 Refills, Maintenance, 10/30/23 15:37:00 EDT, [facility], 163, cm, 10/29/23 10:06:00 EDT, Height, 76.2, kg, 01/06/22 8:38:00 EDT, Dry Weight Start Date: 10/30/23 Status: Ordered montelukast 10 mg oral tablet 1, tablet, By Mouth, Daily in PM, # 90 tablet, Refills 1, Tot. Refills 1, Maintenance, 10/01/23 18:42:00 EDT, Route to Pharmacy Electronically, [facility], 163, cm, 09/06/23 10:02:00 EDT, Height, 76.2, kg, 01/06/22 8:38:00 EDT, Dry Weight Start Date: 10/01/23 Status: Ordered Multivitamin Daily, 0 Refills, Maintenance, [...] EDT,... Start Date: 10/26/22 Status: Ordered ondansetron 4 mg oral tablet 1 tablet, By Mouth, Every 8 hours, # 12 tablet, 0 Refills, Maintenance, 08/28/23 13:41:00 EDT, [facility], 163, cm, 08/22/23 8:24:00 EDT, Height, 76.2, kg, 01/06/22 8:38:00 EDT, DryWeight Start Date: 08/28/23 Status: Ordered rizatriptan 10 mg oral tablet [...] AT BEDTIME., # 120 tablet, 5 Refills, 09/07/23 10:21:00 EDT, [facility], 163, cm, 09/06/23 10:02:00 EDT, Height, 76.2, kg, 01/06/22 8:38:00 EDT, Dry Weight Start Date: 09/07/23 Status: Ordered Trelegy Ellipta Inhalation, Daily, 0 [...] Confirmed Active Papillary thyroid carcinoma Confirmed Active Tardive dyskinesia Confirmed Active Type 2 diabetes mellitus Confirmed Active Dyshidrotic eczema Confirmed Active Social History Social History Type Response Smoking Status Never smoker entered on: 05/12/13 Sex Patient Care team information Care Team Personnel Name: Neto Cunningham MD Position: [facility] Renal MD Member Role: Lifetime Consulting Physician Address: Address: [address] [place] [address] [address] [facility] [place] [address]- [place] Name: Lore Clinton RN Position: [facility] AMB Nurse Member Role: Primary Care Nurse Name: Bernie Aquino NP Position: [facility] PCO Associate Professional Member Role: PCP Address: Address: [address] [place] [address]- [place] Name: Gregg Hardy MD Position: [facility] Pulmonary MD Member Role: Lifetime Consulting Physician Address: Address: [address] [place] [address]- Care Team Related Persons Name: ONDINA SINGLETARY Address: home [address] [place] [address] Name: BLAIRE JACOB Address: home [address] [place] [address]
--- OUTSIDE RECORDS SUMMARY | 2024-01-11 13:41 | XMS_ITS | Continuity of Care Document ---
Author Organization [facility] David lt Address [address] [place] [address]- Care Team Providers Care Government Gauger Name Role Phone Miles OTOOLE, Bernie Hardy Primary Care Physician [phone] Encounter [facility] Date(s): 07/04/22 - 08/03/22 [facility] Adult [address] [place] [address]- Allergies, Adverse Reactions, Alerts Substance Reaction Severity [...] (oldterm) 8 03/14/09 Given 1Result Comment: [09/19/2017] [id number] 2Result Comment: [02/13/2018] [id number] 3Result Comment: [02/08/2017] [facility] [id number] 317 02 4Result Comment: [01/24/2013] ORDERRED BY [...] Daily, # 90 tablet, 1 Refills, Maintenance, 07/03/22 16:02:00 EST, [facility], 163, cm, 06/26/22 7:02:00 EST, Height, 76.2, kg, 01/06/22 8:38:00 EDT, Dry Weight Start Date: 07/03/22 Status: Ordered clonazePAM 1 mg oral tablet [...] 05/25/22 6:49:00 EST, Route to Pharmacy Electronically, [facility], 163, cm, 04/04/22 7:05:00 EST, [...] 12/01/20 15:40:00 EDT, Route to Pharmacy Electronically, [facility], 163,cm, 11/22/20 12:47:00 [...] tablet = 150 mg, By Mouth, Once, Take one tablet by mouth today and one week from today., # 1 tablet, 1 Refills, Soft Stop, 07/06/22 9:55:00 EST, [facility], Partial fill upon patient request if the prescription is for a schedule II op... Start Date: 07/06/22 Status: Ordered hydrOXYzine hydrochloride 10 mg oral [...] Personnel Name: Marisa CHAIDEZ, Neto Osorio Position: [facility] Renal MD Member Role: Lifetime Consulting Physician Address: Address: [address] [place] [address], [address] [place] [address]- [place] Name: Lore Clinton RN Position: [facility] RN Member Role: Primary Care Nurse Name: Miles OTOOLE, Bernie Hardy Position: [facility] PCO Associate Professional Member Role: PCP Address: Address: [address] [place] [address]- [place] Name: Gregg Hardy MD Position: [facility] Pulmonary MD Member Role: Lifetime Consulting Physician Address: Address: [address] [place] [address]- Care Team Related Persons Name: MERRITT SINGLETARY Address: home [address] [place] [address] Name: BLAIRE JAOCB Address: home [address] [place] [address]
--- OUTSIDE RECORDS SUMMARY | 2024-01-11 13:41 | XMS_ITS | Continuity of Care Document ---
Author Organization [facility] Juventino David Address [address] [place] [address]- Care Team Providers Care Music Composer Name Role Phone Gina Bhat MD Primary Care Physician [facility] Date(s): 10/01/19 - 10/08/19 [facility] Adult [address] [place] [address]- [facility] Encounter Diagnosis Medication side effects(Discharge Diagnosis) - 10/01/19 Migraine(Discharge Diagnosis) - 10/01/19 Attending Physician: Gina Bhat MD Allergies, Adverse [...] (oldterm) 8 03/14/09 Given 1Result Comment: [02/13/2018] [id number] 2Result Comment: [02/08/2017] [facility] [id number] 3Result Comment: [01/24/2013] ORDERRED BY GINA BHAT MD 4Result Comment: [09/19/2017] [id number] 5Admin Note: vis given 6Admin Note: BIOMEDICAL [...] 01/06/19 11:51:55 EDT, Route to Pharmacy Electronically, [id number], [facility] Start Date: [...] Pharmacy Electronically, [facility], Patient prescribed increased dose secondary [...] tablet, Refills 11, Tot. Refills 11, Maintenance, 10/02/2013:10:00 EDT, Route to Pharmacy Electronically, [facility], 163, cm, 10/01/19 13:40:00 EDT, Height, 82.6, kg, 05/24/18 7:14:00 EST, Dry W... Start Date: 10/03/19 Status: Ordered lithium 300 mg oral tablet [...] Dry Weight Start Date: 07/11/19 Status: Ordered ondansetron 8 mg oral tablet 1 tablet = 8 mg, By Mouth, 3 times a day, PRN Nausea & Vomiting, # 30 tablet, 0 Refills, Maintenance, 10/01/19 15:46:00 EDT, Tablet, [facility], 163, cm, 10/01/19 13:40:00 EDT, Height, 82.6, kg, 05/24/18 7:14:00 EST, Dry Weight Start Date: 10/01/19 Status: Ordered oxyCODONE 5 mg oral tablet 5 mg, 1, tablet, By Mouth, Every 6 hours, PRN, DX: Migraines G43.909 OK to fill less than prescribed amount, # 12 tablet, Refills 0, Tot. Refills 0, Maintenance, for pain, 05/19/16 16:15:06, Print Requisition Start Date: 05/19/16 Status: Ordered Pen [place], 31 G x 5 mm BD Ultra [...] 05/30/19 11:43:00 EST, Route to Pharmacy Electronically, [facility], 163, cm, 05/30/19 11:08:00 EST, [...] Diagnosis Diagnosis Type Effective Dates Health Status Clinical Service Informant Medication side effects Discharge Diagnosis 10/01/19 Migraine Discharge Diagnosis 10/01/19 Vital Signs Most recent to oldest [Reference Range]: 1 Height 163 cm (10/01/19 1:40 PM) Social History Social History Type Response Smoking Status Never smoker entered on: 01/21/18 Sex
--- OUTSIDE RECORDS SUMMARY | 2024-01-11 13:41 | XMS_ITS | Continuity of Care Document ---
Author Organization [facility] Address [address] [place] [address]- Care Team Providers Care Cotton Picker Name Role Phone Miles OTOOLE, Bernie Hardy Primary Care Physician [facility] Date(s): 12/09/21 - 01/08/22 [facility] [address] [place] [address] Allergies, Adverse Reactions, Alerts Substance Reaction Severity [...] (oldterm) 8 03/14/09 Given 1Result Comment: [02/13/2018] [id number] 2Result Comment: [02/08/2017] [facility] [id number] 317 02 3Result Comment: [01/24/2013] ORDERRED BY GINA GAINES MD 4Result Comment: [09/19/2017] [id number] 5Admin Note: vis given 6Admin Note: BIOMEDICAL [...] 11, Route to Pharmacy Electronically, [facility], 163, cm, 04/15/21 11:42:00 EST, [...] EDT, Height Start Date: 12/01/20 Status: Ordered Dilaudid 2 mg oral tablet 1 tablet = 2 mg, By Mouth, Every 4 hours, PRN Pain , Moderate, Do not drink or driv while taking this medication, # 12 tablet, 0 Refills, Acute 01/14/22 20:00:00 EDT, 01/07/22 11:21:00 EDT, Tablet, [facility], Partial fill upon patient r... Start Date: 01/07/22 Stop Date: 01/14/22 Status: Ordered EpiPen 2-Juvenal = 0.3 mg, [...] Personnel Name: Bernie Aquino NP Address: [address] [place] [address]-
--- OUTSIDE RECORDS SUMMARY | 2024-01-11 13:41 | XMS_ITS | Continuity of Care Document ---
Author Organization [facility] Juventino David lt Address [address] [place] [address]- Care Team Providers Care Gleason Gear Generator Name Role Phone Miles OTOOLE, Bernie Hardy Primary Care Physician Encounter [facility] Date(s): 04/19/23 - 05/19/23 [facility] Adult [address] [place] [address]- Allergies, Adverse Reactions, Alerts Substance Reaction Severity [...] (oldterm) 8 03/14/09 Given 1Result Comment: [09/19/2017] [id number] 2Result Comment: [02/13/2018] [id number] 3Result Comment: [02/08/2017] [facility] [id number] 317 02 4Result Comment: [01/24/2013] ORDERRED BY [...] Refills, Maintenance, 02/25/23 21:51:00 EDT, [facility], 163, [...] tablet, 1 Refills, Maintenance, 01/01/23 12:44:00 EDT, [facility], 163, cm, 11/13/22 8:37:00 EDT, [...] 05/25/22 6:49:00 EST, Route to Pharmacy Electronically, [facility], 163, cm, 04/04/22 7:05:00 EST, [...] 12/01/20 15:40:00 EDT, Route to Pharmacy Electronically, [facility], 163,cm, 11/22/20 12:47:00 EDT, Height Start Date: 12/01/20 Status: Ordered Diflucan 150 mg oral tablet 1 tablet = 150 mg, By Mouth, Once, may repeat x 1, # 2 tablet, 0 Refills, Soft Stop, 12/15/22 11:55:00 EDT, [facility], Partial fill upon patient request if the prescription is for a schedule II opioid drug., 163, cm, 11/13/22 8:37:00 ED... Start Date: 12/15/22 Status: Ordered Diflucan 150 mg oral tablet 1 tablet = 150 mg, By Mouth, Once, may repeat x 1, # 2 tablet, 1 Refills, Soft Stop, 03/23/23 9:39:00 EST, [facility], Partial fill upon patient request if the prescription is for aschedule II opioid drug., 163, cm, 03/07/23 8:42:00 EDT... Start Date: 03/23/23 Status: Ordered Emgality Prefilled Syringe 120 mg/mL [...] Dry Weight Start Date: 04/23/23 Status: Ordered LaMICtal 200 mg oral tablet [...] 0 Refills, Maintenance, 06/06/22 7:46:00 EST, [facility], Partial fill upon patient request [...] drug., 16... Start Date: 03/29/23 Status: Ordered Melatonin 10 mg oral tablet [...] tablet, Refills 5, Maintenance, 03/27/23 23:12:00 EST, [facility] Electron[facility], [facility], [...] opioid drug. Start Date: 01/05/22 Status: Ordered Vraylar 4.5 mg oral capsule 30 each, 0 Refill(s), TAKE 1 CAPSULE BY MOUTH EVERY MORNING, 0 Refills, 11/13/22 8:47:00 EDT, Partial fill upon patient request if the prescription is for a schedule II opioid drug. Start Date: 11/13/22 Status: Ordered Xolair 150 mg subcutaneous injection [...] Personnel Name: Marisa CHAIDEZ, Neto Osorio Position: [facility] Renal MD Member Role: Lifetime Consulting Physician Address: Address: [address] [place] [address] [address] [facility] [place] [address]- [place] Name: Lore Clinton RN Position: [facility] RN Member Role: Primary Care Nurse Name: Benrie Aquino NP Position: [facility] PCO Associate Professional Member Role: PCP Address: Address: [address] [place] [address]- [place] Name: Gregg Hardy MD Position: [facility] Pulmonary MD Member Role: Lifetime Consulting Physician Address: Address: [address] [place] [address]- Care Team Related Persons Name: ONDINA SINGLETARY Address: home [address] [place] [address] Name: BLAIRE JACOB Address: home [address] [place] [address]
--- OUTSIDE RECORDS SUMMARY | 2024-01-11 13:41 | XMS_ITS | Continuity of Care Document ---
Author Organization [facility] Juventino David Address [address] [place] [address]- Care Team Providers Care Solutions Manager Name Role Phone Gina Bhat MD Primary Care Physician [facility] Date(s): 03/15/21 - 04/14/21 [facility] [place] Adult [address] [place] [address]- Allergies, Adverse Reactions, Alerts Substance Reaction Severity [...] (oldterm) 8 03/14/09 Given 1Result Comment: [02/13/2018] [id number] 2Result Comment: [02/08/2017] [facility] [id number] 02 3Result Comment: [01/24/2013] ORDERRED BY GINA BHAT MD 4Result Comment: [09/19/2017] [id number] 5Admin Note: vis given 6Admin Note: BIOMEDICAL [...] Height, 8... Start Date: 02/10/21 Status: Ordered benztropine 1 mg oral tablet [...] EDT, Height Start Date: 01/02/21 Status: Ordered Clonazepam = 0.25 mg, By Mouth, Daily at bedtime, PRN Anxiety, 0 Refills, Maintenance, 02/10/21 14:56:00 EDT, Partial fill upon patient request if the prescription is for a schedule II opioid drug. Start Date: 02/10/21 Status: Ordered clonazePAM 1 mg oral tablet [...] EDT, Route to Pharmacy Electronically, [facility], 163,cm, 11/22/20 12:47:00 EDT, Height [...] Refills, Soft Stop, 11/01/20 15:04:00 EDT, Tablet, [facility], Partial fill upon patient request [...] Maintenance, 10/26/20 11:52:00EDT, Route to Pharmacy Electronically, [facility], 163, cm, 09/23/20 9:42:00 EDT,Height Start Date: 10/26/20 Status: Ordered lithium 300 mg oral tablet 2 tablet = 600 mg, By Mouth, 2 times a day, # 30 tablet, 0 Refills, Maintenance, 11/17/13 13:36:11 EDT, Tablet Start Date: 11/17/13 Status: Ordered MetFORMIN (Eqv-Glucophage XR) 500 mg oral tablet, extended release 2 tablet, By Mouth, 2 times a day with meals, # 120 tablet, 5 Refills, [facility], 163, cm, 04/06/21 8:42:00 EST, Height, 81, kg, 01/28/21 22:15:00 EDT, Dry Weight Start Date: 04/10/21 Status: Ordered Microlet Lancets Microlet Lancets, See [...] 2 times a day, # 180 capsule, 3 Refills, Maintenance, 02/10/21 15:07:00 EDT, [facility], 163, cm, 02/10/21 14:31:00 EDT, Height, 81, kg, 01/28/21 22:15:00 EDT, Dry Weight Start Date: 02/10/21 Status: Ordered ondansetron 8 mg oral tablet 1 tablet = 8 mg, By Mouth, 3 times a day, PRN Nausea & Vomiting, # 30 tablet, 0 Refills, Maintenance, 03/16/21 15:15:00 EDT, Tablet, [facility], 163, cm, 02/21/21 15:42:00 EDT, Height, 81, kg, 01/28/21 22:15:00 EDT, Dry Weight Start Date: 03/16/21 Status: Ordered Pen [place], 31 G x 5 mm BD Ultra Fine III See Instructions, # 150 each, Refills 6, Tot. Refills 6, Maintenance, for use 4x daily with Lantus and humalog insulin E11.65, 06/24/18 10:09:38 EST, Compound Start Date: 06/24/18 Status: Ordered Pen [place], 31 G x 5 mm BD Ultra [...] tablet, Refills 3, Tot. Refills 3, Maintenance, 02/23/21 16:10:00 EDT, Route to Pharmacy Electronically, [facility], Rx resent from 07/26/20, 163, cm, 02/21/21 15:42:00 EDT, Height, 81, kg, 09... Start Date: 02/23/21 Status: Ordered SUMAtriptan 100 mg oral tablet 1 tablet, By Mouth, Daily, PRN NEEDED FOR MIGRAINE, MAY REPEAT DOSE IN 2 HOURS IF NEEDED, # 9 tablet, 11 Refills, Soft Stop, 05/10/20 14:37:00 EST, [facility], 163, cm, 01/16/20 10:48:00 EDT, Height, 82.6, kg, 05/24/18 7:14:00 ESTDr... Start Date: 05/10/20 Status: Ordered topiramate 50 mg oral tablet See Instructions, 1 tablet in morning, 3 tablets at bedtime, # 120 tablet, 5 Refills, Maintenance, 01/21/21 15:35:00 EDT, [facility], 163, cm, 11/22/20 12:47:00 EDT, Height Start Date: 01/21/21 Status: Ordered Trileptal 300 mg oral tablet [...]
--- OUTSIDE RECORDS SUMMARY | 2024-01-11 13:41 | XMS_ITS | Continuity of Care Document ---
Author Organization [facility] David lt Address [address] [place] [address]- Care Team Providers Care Inlayer Name Role Phone Gina Bhat MD Primary Care Physician [phone] Encounter [facility] Date(s): 08/20/19 - 08/27/19 [facility] Adult [address] [place] [address]- [facility] Encounter Diagnosis Disequilibrium(Discharge Diagnosis) - 08/20/19 Sinusitis(Discharge Diagnosis) - 08/20/19 Attending Physician: Gina Bhat MD Allergies, Adverse [...] (oldterm) 8 03/14/09 Given 1Result Comment: [02/13/2018] [id number] 2Result Comment: [02/08/2017] [facility] [id number] 3Result Comment: [01/24/2013] ORDERRED BY GINA BHAT MD 4Result Comment: [09/19/2017] [id number] 5Admin Note: vis given 6Admin Note: BIOMEDICAL [...] 01/06/19 11:51:55 EDT, Route to Pharmacy Electronically, [id number], [facility] Start Date: 01/06/19 Status: Ordered [...] still present Start Date: 08/06/17 Status: Ordered fluconazole 150 mg oral tablet 1 tablet = 150 mg, By Mouth, Once, # 1 tablet, 0 Refills, Soft Stop, 06/06/19 10:53:00 EST, Tablet,[facility], 163, cm, 06/04/19 8:19:00 EST, Height, 82.6, kg, 05/24/18 7:14:00 EST, Dry Weight Start Date: 06/06/19 Status: Ordered folic acid 1 mg oral tablet 4 mg, 4, tablet, By Mouth, Daily, # 120 tablet, Refills 5, Tot. Refills 5, Maintenance, 05/22/19 16:08:00 EST, Route to Pharmacy Electronically, [facility], Patient prescribed increased dose secondary [...] EST, Tablet Start Date: 05/30/19 Status: Ordered levoFLOXacin 500 mg oral tablet 1 tablet = 500 mg, By Mouth, Every 24 hours, for 10 days, # 10 tablet, 0 Refills, Acute 08/30/19 12:34:00 EDT, 08/20/19 12:34:00 EDT, Tablet, [facility], 163, cm, 07/11/19 11:24:00 EST, Height, 82.6, kg, 05/24/18 7:14:00 EST, Dry Weight Start Date: 08/20/19 Stop Date: 08/30/19 Status: Ordered Lipitor 40 mg oral tablet 1 tablet = 40 mg, By Mouth, Daily, # 90 tablet, 1 Refills, Maintenance, 07/20/19 23:41:00 EDT, Tablet, [facility], 163, cm, 07/11/19 11:24:00 EST, Height, 82.6, kg, 05/24/18 7:14:00EST, Dry Weight Start Date: 07/20/19 Status: Ordered lisinopril 2.5 mg oral tablet 2.5 mg, 1, tablet, By Mouth, Daily, # 30 tablet, Refills 11, Tot. Refills 11, Maintenance, 10/10/1915:45:18 EDT, Route to Pharmacy Electronically, [id number], [facility] Start Date: 10/09/18 Status: Ordered [...] Requisition Start Date: 05/19/16 Status: Ordered [employer], 31 G x 5 mm BD Ultra [...] 9 tablet, Refills 11 Tot. Refills 11, SEPTEMBER REPEAT DOSE IN 2 HOURS IF NEEDED, [...] Dates Health Status Cl inical Service Informant Disequilibrium Discharge Diagnosis 08/20/19 Sinusitis Discharge Diagnosis 08/20/19 Social History Social History Type Response Smoking Status Never smoker entered on: 01/21/18 Sex
--- OUTSIDE RECORDS SUMMARY | 2024-01-11 13:41 | XMS_ITS | Continuity of Care Document ---
Author Organization [facility] David lt Address [address] [place] [address]- Care Team Providers Care Child Life Therapist Name Role Phone Miles OTOOLE, Bernie Hardy Primary Care Physician [phone] Encounter [facility] Date(s): 01/16/23 - 02/15/23 [facility] Adult [address] [place] [address]- Allergies, Adverse Reactions, Alerts Substance Reaction Severity [...] (oldterm) 8 03/14/09 Given 1Result Comment: [09/19/2017] [id number] 2Result Comment: [02/13/2018] [id number] 3Result Comment: [02/08/2017] [facility] [id number] 4Result Comment: [01/24/2013] ORDERRED BY [...] 05/25/22 6:49:00 EST, Route to Pharmacy Electronically, [facility], 163, cm, 04/04/22 7:05:00 EST, [...] cm, 07/18/21 14:49:00 EST, Height, 81, kg, /... Start Date: 07/22/21 Status: Ordered cyclobenzaprine 10 mg oral tablet 10 mg, 1, tablet, By Mouth, 3 times a day, PRN, # 20 tablet, Refills 1, Tot. Refills 1, Maintenance, Spasm, 12/01/20 15:40:00 EDT, Route to Pharmacy Electronically, [facility], 163,cm, 11/22/20 12:47:00 [...] # 2 tablet, 0 Refills, Soft Stop, 02/13/23 10:16:00 EDT, [facility], Partial fill upon patient request if the prescription is for a schedule II opioid drug., 163, cm, 11/13/22 8:37:00 ED... Start Date: 02/13/23 Status: Ordered Emgality Prefilled Syringe 120 mg/mL [...] Daily, # 30 tablet, 5 Refills, Maintenance, 10/01/22 10:34:00 EDT, [facility], 163, cm, 09/04/22 7:38:00 EDT, Height, 76.2, kg, 01/06/22 8:38:00 EDT, Dry Weight Start Date: 10/01/22 Status: Ordered LaMICtal 200 mg oral tablet [...] weeks., # 30 tablet, 6 Refills, Maintenance, 09/20/22 12:18:00 EDT, Tablet, [facility], Partial fill upon patient request if the prescription is for a schedule II opioid drug., 1... Start Date: 09/20/22 Status: Ordered Melatonin 10 mg oral tablet 1 tablet = 10 mg, By Mouth, Daily at bedtime, 0 Refills, Maintenance, 01/06/22 9:01:00 EDT, Partialfill upon patient request if the prescription is for a schedule II opioid drug. Start Date: 01/06/22 Status: Ordered metFORMIN 500 mg oral tablet 2 tablet, By Mouth, 2 times a day, # 120 tablet, 5 Refills, Maintenance, 10/01/22 10:34:00 EDT, [facility], 163, cm, 09/04/22 7:38:00 EDT, Height, 76.2, kg, 01/06/22 8:38:00 EDT, Dry Weight Start Date: 10/01/22 Status: Ordered montelukast 10 mg oral tablet 1, tablet, By Mouth, Daily in PM, # 30 tablet, Refills 5, Maintenance, 10/01/22 10:34:00 EDT, [facility], [facility], 163, cm, 09/04/22 7:38:00 EDT, Height, 76.2, kg, 01/06/22 8:38:00 EDT, Dry Weight Start Date: 10/01/22 Status: Ordered Multivitamin Daily, 0 Refills, Maintenance, [...] Personnel Name: Marisa CHAIDEZ, Neto Osorio Position: [facility] Renal MD Member Role: Lifetime Consulting Physician Address: Address: [address] [place] [address], [address] [place] [address]- Name: Lore Clinton RN Position: [facility] RN Member Role: Primary Care Nurse Name: Bernie Aquino NP Position: [facility] PCO Associate Professional Member Role: PCP Address: Address: [address] [place] [address]- [place] Name: Gregg Hardy MD Position: [facility] Pulmonary MD Member Role: Lifetime Consulting Physician Address: Address: [address] [place] [address]- Care Team Related Persons Name: ONDINA SINGLETARY Address: home [address] [place] [address] Name: BLAIRE JACOB Address: home [address] [place] [address]
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
--- OUTSIDE RECORDS SUMMARY | 2024-01-11 13:41 | XMS_ITS | Continuity of Care Document ---
Author Organization [facility] Juventino David Address [address] [place] [address]- Care Team Providers Care Health Promotion Officer Name Role Phone Gina Bhat MD Primary Care Physician Encounter [facility] Date(s): 02/10/21 - 02/17/21 [facility] Adult [address] [place] [address]- Encounter Diagnosis Right hip pain(Discharge Diagnosis) - 02/10/21 Bipolar disorder(Discharge Diagnosis) - 02/10/21 Attending Physician: Gina Bhat MD Allergies, Adverse [...] (oldterm) 8 03/14/09 Given 1Result Comment: [02/13/2018] [id number] 2Result Comment: [02/08/2017] [facility] [id number] 02 3Result Comment: [01/24/2013] ORDERRED BY GINA BHAT MD 4Result Comment: [09/19/2017] [id number] 5Admin Note: vis given 6Admin Note: BIOMEDICAL [...] EDT, Route to Pharmacy Electronically, [facility], 163,cm, 11/22/20 12:47:00 EDT, Height [...] 11:52:00EDT, Route to Pharmacy Electronically, [facility], 163, cm, 09/23/20 9:42:00 EDT,Height [...] EDT, Compound Start Date: 10/17/18 Status: [facility], Maintenance, 01/28/21 18:58:00 EDT, [...] Weight Start Date: 10/01/19 Status: Ordered Pen [employer], 31 G x 5 mm BD Ultra Fine III See Instructions, # 150 each, Refills 6, Tot. Refills 6, Maintenance, for use 4x daily with Lantus and humalog insulin E11.65, 06/24/18 10:09:38 EST, Compound Start Date: 06/24/18 Status: Ordered [employer], 31 G x 5 mm BD Ultra [...] 07/26/20 10:28:00 EDT, Route to Pharmacy Electronically, [facility], 163, cm, 07/26/20 8:40:00 EDT, Height Start Date: 07/26/20 Status: Ordered SUMAtriptan 100 mg oral tablet 1 tablet, By Mouth, Daily, PRN NEEDED FOR MIGRAINE, MAY REPEAT DOSE IN 2 HOURS IF NEEDED, # 9 tablet, 11 Refills, Soft Stop, 05/10/20 14:37:00 EST, [facility], 163, cm, 01/16/20 10:48:00 EDT, Height, 82.6, kg, 05/24/18 7:14:00 EST, . Start Date: 05/10/20 Status: Ordered topiramate 50 mg oral tablet See Instructions, 1 tablet in morning, 3 tablets at bedtime, # 120 tablet, 5 Refills, Maintenance, 01/21/21 15:35:00 EDT, [facility], 163, cm, 11/22/20 12:47:00 EDT, [...] Dates Health Status Cl inical Service Informant Right hip pain Discharge Diagnosis 02/10/21 Bipolar disorder Discharge Diagnosis 02/10/21 Vital Signs Most recent to oldest [Reference Range]: 1 Height 163 cm (02/10/21 2:31 PM) Weight 84.7 kg (02/10/21 2:31 PM) Oxygen Saturation [94-100 %] 97 % (02/10/21 2:31 PM) Pulse Rate [55-90 bpm] 94 bpm *H* (02/10/21 2:31 PM) Body Mass Index [18.5-24.99] 31.88 *>HHI* (02/10/21 2:31 PM) Blood Pressure [90-138/55-84 mm Hg] 116/ 78mm Hg (02/10/21 2:31 PM) Temperature [96.8-100.4 DegF] 99.0 DegF (02/10/21 2:31 PM) Mode of Delivery (Oxygen) Room air (02/10/21 2:31 PM) Blood pressure sites Arm, left (02/10/21 2:31 PM) Temperature Route Oral (02/10/21 2:31 PM) Weight Obtained Via Standing scale (02/10/21 2:31 PM) Social History Social History Type Response Smoking Status Never smoker entered on: 01/21/18 Sex
--- OUTSIDE RECORDS SUMMARY | 2024-01-11 13:41 | XMS_ITS | Continuity of Care Document ---
Author Organization [facility] lt Address [address] [place] [id number]- Care Team Providers Care Line Service Person Name Role Phone Miles OTOOLE, Bernie Hardy Primary Care Physician Encounter [facility] [place] Date(s): 11/20/23 - 11/27/23 [facility] [address] [place] [address]- Encounter Diagnosis Nausea(Discharge Diagnosis) - 11/20/23 Type 2 diabetes mellitus(Discharge Diagnosis) - 11/20/23 Attending Physician: Ondina CHAIDEZ, Jonathan Flores Referring Physician: Miles OTOOLE, Bernie Hardy Allergies, Adverse Reactions, Alerts Substance Reaction Severity [...] (oldterm) 8 03/14/09 Given 1Result Comment: [09/19/2017] [id number] Comment: [02/13/2018] [id number] 3Result Comment: [02/08/2017] [facility] [place] [phone] 4Result Comment: [01/24/2013] ORDERRED BY [...] tablet, 1 Refills, Maintenance, 07/09/23 14:12:00 EST, [facility], 163, cm, 06/06/23 7:29:00 EST, [...] 05/21/23 11:57:00 EST, Route to Pharmacy Electronically, [facility], 163, cm, 03/07/23 8:42:00 EDT, Height, 76.2, kg, 01/06/22 8:38:00 EDT, Dry Weight Start Date: 05/21/23 Status: Ordered Combivent Respimat 20 mcg-100 mcg/inh inhalation aerosol 1 puffs, Inhalation, 4 times a day, # 1 each, 0 Refills, Maintenance, 10/15/23 8:40:00 EDT, [facility], Partial fill upon patient request [...] Stop, 05/13/20 10:25:00 EST, Capsule, [facility], 1 capsule By Mouth Once,PRN:as [...] Dry Weight Start Date: 10/30/23 Status: Ordered lamotrigine 200 mg oral tablet [...] 10/01/23 18:42:00 EDT, Route to Pharmacy Electronically, [facility], 163, cm, 09/06/23 10:02:00 EDT, [...] 60 capsule, 6 Refills, Maintenance, 10/26/22 11:06:00EDT, [facility], Partial fill upon patient request if the prescription is for a schedule II opioid drug., 163, cm, 09/04/22 7:38:00 EDT,... Start Date: 10/26/22 Status: Ordered ondansetron 4 mg oral tablet 1 tablet, By Mouth, Every 8 hours, # 12 tablet, 0 Refills, Maintenance, 08/28/23 13:41:00 EDT, [facility], 163, cm, 08/22/23 8:24:00 EDT, [...] 120 tablet, 5 Refills, 09/07/23 10:21:00 EDT, [facility], 163, cm, 09/06/23 10:02:00 EDT, [...] mellitus Confirmed Active Dyshidrotic eczema Confirmed Active Diagnosis Diagnosis Type Effective Dates Health Status Cl inical Service Informant Nausea Discharge Diagnosis 11/20/23 Type 2 diabetes mellitus Discharge Diagnosis 11/20/23 Vital Signs Most recent to oldest [Reference Range]: 1 Height 163 cm (11/20/23 7:24 AM) Weight 80.8 kg (11/20/23 7:24 AM) Oxygen Saturation [94-100 %] 98 % (11/20/23 7:24 AM) Pulse Rate [55-90 bpm] 94 bpm *H* (11/20/23 7:24 AM) Body Mass Index [18.5-24.99 kg/m2] 30.41 kg/m2 *>HHI* (11/20/23 7:24 AM) Blood Pressure [90-138/55-84 mm Hg] 118/ 82mm Hg (11/20/23 7:24 AM) Weight Obtained Via Standing scale (11/20/23 7:24 AM) Social History Social History Type Response Smoking Status Never smoker entered on: 05/12/13 Sex Note * Katiuska Hernandez: PERFORM Event Display: Patient Education/Instruction Authored Date: [id number] Ambulatory Adult Visit Summary [facility] Adult [address] [address] Name: HEMANT LEE : 1975?? Visit: 11/20/2023 07:21?? Ambulatory Visit Instructions ?? Your Care Team Primary Care Provider Bernie Aquino NP? This Visit Provider Bernie Aquino NP Your Diagnosis FMF (familial Mediterranean fever) Vitals Signs Pulse Rate:??94 bpm??High Height: 163 cm Systolic Blood Pressure: 118 mm Hg Weight: 80.8 kg Diastolic Blood Pressure: 82 mm Hg Body Mass Index:??30.41 kg/m2??Critical Oxygen Saturation: 98 % Body surface area: 1.91 What to do next Future Orders TSH - Routine, Once, 10/29/23 10:14:00 EDT, Single or Recurring Future Order, [facility], Blood?? Free T4 (T4 Free) - Routine, Once, 10/29/23 10:14:00 EDT, Single or Recurring Future Order, [facility], Blood?? TSH - Routine, Once, 11/07/23 12:29:00 EDT, Single or Recurring Future Order, [facility], Blood?? Free T4 (T4 Free) - Routine, Once, 11/07/23 12:29:00 EDT, Single or Recurring Future Order, [facility], Blood?? Sedimentation Rate - Routine, Once, 11/20/23 7:46:00 EDT, Future Order, [facility], Blood?? C Reactive Protein (CRP) - Routine, Once, 11/20/23 7:46:00 EDT, Future Order, [facility], Blood?? CBC w/ Differential - Routine, Once, 11/20/23 7:46:00 EDT, Future Order, [facility], Blood?? Medications The list below reflects the information in our records and provided by you today along with any changes made during this visit. Please continue your medications until treatment is completed or stopped by your provider. If this is different from the information you have or there are other questions,please contact the prescribing provider. What How Much When Instructions Unchanged Acetaminophen (Tylenol 8 Hour Caplet 650 mg oral tablet, extended release) 1 tab(s) Oral Every 8 hours Unchanged Acetaminophen/ Butalbital/ Caffeine (Fioricet oral capsule) 1 capsule Oral Once as needed for as needed repeat in 2 hours if headache is still present ?? Unchanged Albuterol/ Ipratropium (Combivent Respimat 20 mcg-100 mcg/ inh inhalation aerosol) 1 puff(s) Inhalation 4 times a day Duration: 30 Days Unchanged Amiloride (aMILoride 5 mg oral tablet) 2 tab(s) Oral Daily Duration: 30 Days Unchanged Atorvastatin (atorvastatin 40 mg oral tablet) 1 tab(s) Oral Daily replace 20mg ?? Unchanged Benztropine (benztropine 0.5 mg oral tablet) 1 tab(s) Oral Twice a day Unchanged Cetirizine (cetirizine 10 mg oral tablet) 1 tab(s) Oral Daily Unchanged Clonazepam (clonazePAM 1 mg oral tablet) 1 tab(s) As needed for Anxiety Unchanged Colchicine (colchicine 0.6 mg oral tablet) 1 tab(s) Oral Twice a day Unchanged Cyclobenzaprine (cyclobenzaprine 10 mg oral tablet) 1 tab(s) Oral 3 times a day as needed for Spasm Unchanged Durable Medical Equipment (Contour Next test strips) See instructions check blood glucose 3 times a day and a s needed. Dx code E 11.9 ??T2DM ?? Unchanged Epinephrine (EpiPen 2-Juvenal) 0.3 Milligram Intramuscular Once Unchanged fluticasone/ umeclidinium/ vilanterol (Trelegy Ellipta) Inhalation Daily Unchanged galcanezumab (Emgality Prefilled Syringe 120 mg/ mL subcutaneous solution) 120 Milligram Subcutaneous Infusion Every 28 days Unchanged HydrOXYzine (hydrOXYzine hydrochloride 10 mg oral tablet) 1 tab(s) Oral Daily at Bedtime Unchanged Immune Globulin Intramuscular 20 GRAMS EVERY 3 WEEKS ?? Unchanged Lamotrigine (lamotrigine 200 mg oral tablet) 1 tab(s) Oral Daily Unchanged Levothyroxine (levothyroxine 0.05 mg oral tablet) See instructions 1 tablet By Mouth from sunday to sunday and 1.5 tablets on sunday ?? Unchanged Comstock (lithium 150 mg oral capsule) 3 capsule Oral Twice a day Unchanged Melatonin (Melatonin 10 mg oral tablet) 1 tab(s) Oral Daily at Bedtime Unchanged Metformin (metFORMIN 500 mg oral tablet) 2 tab(s) Oral Twice a day Unchanged Miscellaneous Rx (Serum Calcium, Albumin, Parathyroid hormone) See instructions To be drawn on ?? Unchanged Montelukast (montelukast 10 mg oral tablet) 1 tab(s) Oral Daily in PM Unchanged Multivitamin Daily Unchanged Nitrofurantoin (Macrobid macrocrystals-monohydrate 100 mg oral capsule) 1 capsule Oral Twice a day Duration: 7 Days Unchanged Norethindrone (Jade) 0.35 Milligram Oral Daily Unchanged omalizumab (Xolair 150 mg subcutaneous injection) Subcutaneous Infusion Every 14 days Unchanged omalizumab (Xolair 150 mg subcutaneous injection) See instructions 300 mg Subcutaneous Injection ?? Unchanged Omeprazole (omeprazole 40 mg oral enteric coated capsule) 1 capsule Oral Twice a day Unchanged Ondansetron (ondansetron 4 mg oral tablet) 1 tab(s) Oral Every 8 hours Unchanged Oxcarbazepine (Trileptal 300 mg oral tablet) See instructions 1.5 tabs BID ?? Unchanged Rizatriptan (rizatriptan 10 mg oral tablet) 1 tab(s) Oral PRN ?? Unchanged sitagliptin (Januvia 100 mg oral tablet) 1 tab(s) Oral Daily Unchanged Topiramate (topiramate 50 mg oral tablet) See instructions TAKE 1 TABLET IN THE MORNING AND 3 TABLETS AT BEDTIME. ?? Test Performed Below is a partial list of the tests performed during your Visit. You may have had other tests and procedures not included in this list. Please discuss all test results with your provider. CBC w/ Differential?-- Results Pending -- CRP?-- Results Pending -- Sedimentation Rate?-- Results Pending -- You will be contacted within 72 hours with your results. Medications and Immunizations Administered Medications Given During Visit No medications given during this visit.?? Allergies (NKA means No Known Allergies) Adhesive Bandage??(rash) Augmentin??(increases sx) Cats??(sneezing) Demerol HCl??(vomiting) Flonase??(rhinitis) NSAIDs Reglan??(double vision) azithromycin??(increases sx's) morphine??(vomiting) Common Emergency Awareness Tips IS IT A STROKE? Act FAST and Check for these signs: FACE Does the face look uneven? ARM Does one arm drift down? SPEECH Does their speech sound strange? TIME Call at any sign of stroke ?? Heart Attack Signs Chest discomfort: Most heart attacks involve discomfort in the center of the chest and lasts more than a few minutes, or goes away and comes back. It can feel like uncomfortable pressure, squeezing, fullness or pain. Discomfort in upper body: Symptoms can include pain or discomfort in one or both arms, back, neck, jaw or stomach. Shortness of breath: With or without discomfort. Other signs: Breaking out in a cold sweat, nausea, or lightheaded. Remember, MINUTES DO MATTER. If you experience any of these heart attack warning signs, call to get immediate medical attention! ?? Smoking can increase your chances of developing chronic health problems and can cause harmful effects to other family members in your house. If you smoke, you are strongly encouraged to quit. Please call [facility] at [phone] or [phone] ([phone]) or log in to [email or web address] for referrals to smoking cessation programs. ?? The National Suicide Prevention Hotline is available 04/12 if you or someone you know needs to find a reason to keep living. By calling 3-052-203-SEWORKS (9798) you'll be connected to a skilled, trained counselor at a crisis center in your area. [facility] Portal You can view and manage your care through the patient portal or by using a health care chinmay of your choosing. Glance is a website that allows you to securely view your medical information including your hospital discharge summary, office visit summaries, medications and follow-up visits. You can also request appointments, renew medications, and request access to your medical information using a health care chinmay of your choosing, or just ask a question. You can enroll at [email or web address] or register during your next office visit. [facility], in keeping with [facility] guidance, no longer requires face masks for staff, patientsor visitors in most situations. Similiar to time spent indoors at other locations, there is the chance that you were exposed to repiratory viruses during your time with us (such as flu or COVID-19). If you develop symptoms concerning for a viral respiratory infection, please seek testing (and treatment if indicated) from your medical provider or home test kit. ?? Disclaimer: The information provided is of a general nature and is intended to be used in conjunction with the recommendations and advice of your health care practitioner. Every effort has been made to ensure that the information provided is accurate and complete at the time it is provided to you however, as your needs change, or, as new information becomes available, different or additional instructions may be required. ?? If you have questions, please consult with your primary care provider or pharmacist, as appropriate. This information is not intended to serve as substitution for assessment and evaluation by a qualified health care provider. If you do not have a primary care provider, you may find a [facility] provider by calling [facility] at [phone]. * Siulinski , Katiuska: PERFORM Event Display: Patient Education/Instruction Authored Date: [id number] Ambulatory Adult Visit Summary [facility] [address] [place] [address] Name: HEMANT LEE : 1975?? Visit: 11/20/2023 07:21?? Ambulatory Visit Instructions ?? Your Care Team Primary Care Provider Miles OTOOLE, Bernie Hardy? This Visit Provider Bernie Aquino NP Your Diagnosis FMF (familial Mediterranean fever) Vitals Signs Pulse Rate:??94 bpm??High Height: 163 cm Systolic Blood Pressure: 118 mm Hg Weight: 80.8 kg Diastolic Blood Pressure: 82 mm Hg Body Mass Index:??30.41 kg/m2??Critical Oxygen Saturation: 98 % Body surface area: 1.91 What to do next Future Orders TSH - Routine, Once, 10/29/23 10:14:00 EDT, Single or Recurring Future Order, [facility], Blood?? Free T4 (T4 Free) - Routine, Once, 10/29/23 10:14:00 EDT, Single or Recurring Future Order, [facility], Blood?? TSH - Routine, Once, 11/07/23 12:29:00 EDT, Single or Recurring Future Order, [facility], Blood?? Free T4 (T4 Free) - Routine, Once, 11/07/23 12:29:00 EDT, Single or Recurring Future Order, [facility], Blood?? Sedimentation Rate - Routine, Once, 11/20/23 7:46:00 EDT, Future Order, [facility], Blood?? C Reactive Protein (CRP) - Routine, Once, 11/20/23 7:46:00 EDT, Future Order, [facility], Blood?? CBC w/ Differential - Routine, Once, 11/20/23 7:46:00 EDT, Future Order, [facility], Blood?? Medications The list below reflects the information in our records and provided by you today along with any changes made during this visit. Please continue your medications until treatment is completed or stopped by your provider. If this is different from the information you have or there are other questions,please contact the prescribing provider. What How Much When Instructions Unchanged Acetaminophen (Tylenol 8 Hour Caplet 650 mg oral tablet, extended release) 1 tab(s) Oral Every 8 hours Unchanged Acetaminophen/ Butalbital/ Caffeine (Fioricet oral capsule) 1 capsule Oral Once as needed for as needed repeat in 2 hours if headache is still present ?? Unchanged Albuterol/ Ipratropium (Combivent Respimat 20 mcg-100 mcg/ inh inhalation aerosol) 1 puff(s) Inhalation 4 times a day Duration: 30 Days Unchanged Amiloride (aMILoride 5 mg oral tablet) 2 tab(s) Oral Daily Duration: 30 Days Unchanged Atorvastatin (atorvastatin 40 mg oral tablet) 1 tab(s) Oral Daily replace 20mg ?? Unchanged Benztropine (benztropine 0.5 mg oral tablet) 1 tab(s) Oral Twice a day Unchanged Cetirizine (cetirizine 10 mg oral tablet) 1 tab(s) Oral Daily Unchanged Clonazepam (clonazePAM 1 mg oral tablet) 1 tab(s) As needed for Anxiety Unchanged Colchicine (colchicine 0.6 mg oral tablet) 1 tab(s) Oral Twice a day Unchanged Cyclobenzaprine (cyclobenzaprine 10 mg oral tablet) 1 tab(s) Oral 3 times a day as needed for Spasm Unchanged Durable Medical Equipment (Contour Next test strips) See instructions check blood glucose 3 times a day and a s needed. Dx code E 11.9 ??T2DM ?? Unchanged Epinephrine (EpiPen 2-Juvenal) 0.3 Milligram Intramuscular Once Unchanged fluticasone/ umeclidinium/ vilanterol (Trelegy Ellipta) Inhalation Daily Unchanged galcanezumab (Emgality Prefilled Syringe 120 mg/ mL subcutaneous solution) 120 Milligram Subcutaneous Infusion Every 28 days Unchanged HydrOXYzine (hydrOXYzine hydrochloride 10 mg oral tablet) 1 tab(s) Oral Daily at Bedtime Unchanged Immune Globulin Intramuscular 20 GRAMS EVERY 3 WEEKS ?? Unchanged Lamotrigine (lamotrigine 200 mg oral tablet) 1 tab(s) Oral Daily Unchanged Levothyroxine (levothyroxine 0.05 mg oral tablet) See instructions 1 tablet By Mouth from sunday to sunday and 1.5 tablets on sunday ?? Unchanged Comstock (lithium 150 mg oral capsule) 3 capsule Oral Twice a day Unchanged Melatonin (Melatonin 10 mg oral tablet) 1 tab(s) Oral Daily at Bedtime Unchanged Metformin (metFORMIN 500 mg oral tablet) 2 tab(s) Oral Twice a day Unchanged Miscellaneous Rx (Serum Calcium, Albumin, Parathyroid hormone) See instructions To be drawn on ?? Unchanged Montelukast (montelukast 10 mg oral tablet) 1 tab(s) Oral Daily in PM Unchanged Multivitamin Daily Unchanged Nitrofurantoin (Macrobid macrocrystals-monohydrate 100 mg oral capsule) 1 capsule Oral Twice a day Duration: 7 Days Unchanged Norethindrone (Jade) 0.35 Milligram Oral Daily Unchanged omalizumab (Xolair 150 mg subcutaneous injection) Subcutaneous Infusion Every 14 days Unchanged omalizumab (Xolair 150 mg subcutaneous injection) See instructions 300 mg Subcutaneous Injection ?? Unchanged Omeprazole (omeprazole 40 mg oral enteric coated capsule) 1 capsule Oral Twice a day Unchanged Ondansetron (ondansetron 4 mg oral tablet) 1 tab(s) Oral Every 8 hours Unchanged Oxcarbazepine (Trileptal 300 mg oral tablet) See instructions 1.5 tabs BID ?? Unchanged Rizatriptan (rizatriptan 10 mg oral tablet) 1 tab(s) Oral PRN ?? Unchanged sitagliptin (Januvia 100 mg oral tablet) 1 tab(s) Oral Daily Unchanged Topiramate (topiramate 50 mg oral tablet) See instructions TAKE 1 TABLET IN THE MORNING AND 3 TABLETS AT BEDTIME. ?? Test Performed Below is a partial list of the tests performed during your Visit. You may have had other tests and procedures not included in this list. Please discuss all test results with your provider. CBC w/ Differential?-- Results Pending -- CRP?-- Results Pending -- Sedimentation Rate?-- Results Pending -- You will be contacted within 72 hours with your results. Medications and Immunizations Administered Medications Given During Visit No medications given during this visit.?? Allergies (NKA means No Known Allergies) Adhesive Bandage??(rash) Augmentin??(increases sx) Cats??(sneezing) Demerol HCl??(vomiting) Flonase??(rhinitis) NSAIDs Reglan??(double vision) azithromycin??(increases sx's) morphine??(vomiting) Common Emergency Awareness Tips IS IT A STROKE? Act FAST and Check for these signs: FACE Does the face look uneven? ARM Does one arm drift down? SPEECH Does their speech sound strange? TIME Call at any sign of stroke ?? Heart Attack Signs Chest discomfort: Most heart attacks involve discomfort in the center of the chest and lasts more than a few minutes, or goes away and comes back. It can feel like uncomfortable pressure, squeezing, fullness or pain. Discomfort in upper body: Symptoms can include pain or discomfort in one or both arms, back, neck, jaw or stomach. Shortness of breath: With or without discomfort. Other signs: Breaking out in a cold sweat, nausea, or lightheaded. Remember, MINUTES DO MATTER. If you experience any of these heart attack warning signs, call to get immediate medical attention! ?? Smoking can increase your chances of developing chronic health problems and can cause harmful effects to other family members in your house. If you smoke, you are strongly encouraged to quit. Please call [facility] at [phone] or [phone] ([phone]) or log in to [email or web address] for referrals to smoking cessation programs. ?? The National Suicide Prevention Hotline is available 04/12 if you or someone you know needs to find a reason to keep living. By calling 4-627-747-SEWORKS (3894) you'll be connected to a skilled, trained counselor at a crisis center in your area. [facility] Portal You can view and manage your care through the patient portal or by using a health care chinmay of your choosing. Glance is a website that allows you to securely view your medical information including your hospital discharge summary, office visit summaries, medications and follow-up visits. You can also request appointments, renew medications, and request access to your medical information using a health care chinmay of your choosing, or just ask a question. You can enroll at [email or web address] or register during your next office visit. [facility], in keeping with [facility] guidance, no longer requires face masks for staff, patientsor visitors in most situations. Similiar to time spent indoors at other locations, there is the chance that you were exposed to repiratory viruses during your time with us (such as flu or COVID-19). If you develop symptoms concerning for a viral respiratory infection, please seek testing (and treatment if indicated) from your medical provider or home test kit. ?? Disclaimer: The information provided is of a general nature and is intended to be used in conjunction with the recommendations and advice of your health care practitioner. Every effort has been made to ensure that the information provided is accurate and complete at the time it is provided to you however, as your needs change, or, as new information becomes available, different or additional instructions may be required. ?? If you have questions, please consult with your primary care provider or pharmacist, as appropriate. This information is not intended to serve as substitution for assessment and evaluation by a qualified health care provider. If you do not have a primary care provider, you may find a [facility] provider by calling [facility] at [phone]. Patient Care team information Care Team Personnel Name: Marisa CHAIDEZ, Neto Osorio Position: [facility] Renal MD Member Role: Lifetime Consulting Physician Address: Address: [address] [place] [address] [address] [place] [address]- [place] Name: Lore Clinton RN Position: [facility] RN Member Role: Primary Care Nurse Name: Miles OTOOLE, Bernie Hardy Position: [facility] PCO Associate Professional Member Role: PCP Address: Address: [address] [place] [id number]- [place] Name: Gregg Hardy MD Position: [facility] Pulmonary MD Member Role: Lifetime Consulting Physician Address: Address: [address] [place] [id number]- [place] Care Team Related Persons Name: ONDINA SINGLETARY Address: [address] [place] [address] Name: BLAIRE JACOB Address: home [address] [place] [address]
--- OUTSIDE RECORDS SUMMARY | 2024-01-11 13:41 | XMS_ITS | Continuity of Care Document ---
Author Organization [facility] David Address [address] [place] [address]- Care Team Providers Care Fork Repairer Name Role Phone Gina Bhat MD Primary Care Physician [phone] [facility] Date(s): 01/03/21 - 02/02/21 [facility] Adult [address] [place] [address]- Allergies, Adverse Reactions, Alerts Substance Reaction Severity [...] (oldterm) 8 03/14/09 Given 1Result Comment: [02/13/2018] [id number] 2Result Comment: [02/08/2017] [facility] [id number] 3Result Comment: [01/24/2013] ORDERRED BY GINA BHAT MD 4Result Comment: [09/19/2017] [id number] 5Admin Note: vis given 6Admin Note: BIOMEDICAL [...] 05/18/20 17:15:00 EST, Route to Pharmacy Electronically, [facility], D/C RX ON FILE FOR [...] Stop, 11/01/20 15:04:00 EDT, Tablet, [facility], Partial fill upon patient request [...] Weight Start Date: 10/01/19 Status: Ordered Pen [place], 31 G x 5 mm BD Ultra Fine III See Instructions, # 150 each, Refills 6, Tot. Refills 6, Maintenance, for use 4x daily with Lantus and humalog insulin E11.65, 06/24/18 10:09:38 EST, Compound Start Date: 06/24/18 Status: Ordered Pen [place], 31 G x 5 mm BD Ultra [...] 07/26/20 10:28:00 EDT, Route to Pharmacy Electronically, [facility], 163, cm, 07/26/20 8:40:00 EDT, Height Start Date: 07/26/20 Status: Ordered SUMAtriptan 100 mg oral tablet 1 tablet, By Mouth, Daily, PRN NEEDED FOR MIGRAINE, MAY REPEAT DOSE IN 2 HOURS IF NEEDED, # 9 tablet, 11 Refills, Soft Stop, 05/10/20 14:37:00 EST, [facility], 163, cm, 01/16/20 10:48:00 EDT, Height, 82.6, kg, 05/24/18 7:14:00 EST, . Start Date: 05/10/20 Status: Ordered topiramate 50 mg oral tablet See Instructions, 1 tablet in morning, 3 tablets at bedtime, # 120 tablet, 5 Refills, Maintenance, 01/21/21 15:35:00 EDT, [facility], 163, cm, 11/22/20 12:47:00 EDT, [...]
--- OUTSIDE RECORDS SUMMARY | 2024-01-11 13:42 | XMS_ITS | Continuity of Care Document ---
Author Organization [facility] Sj Jauregui David lt Address [address] [place] [address]- Care Team Providers Care Director Mobile Name Role Phone Gina Bhat MD Primary Care Physician [phone] [facility] Date[facility]s): 01/16/20 - 02/15/20 [facility] S[facility] Figueroaley Adult [address] [place] [address]- [facility] Allergies, Adverse Reactions, Alerts Substance Reaction Severity [...] (oldterm) 8 03/14/09 Given 1Result Comment: [02/13/2018] [id number] 2Result Comment: [02/08/2017] [facility] [id number] 317 [id number] 3Result Comment: [01/24/2013] ORDERRED BY GINA BHAT MD 4Result Comment: [09/19/2017] [id number] 5Admin Note: vis given 6Admin Note: BIOMEDICAL MARIELLA 7Admin Note: H1N1 8Admin Note: elsewhere Medications acetic acid-hydrocortisone otic 2%-1% solution 3 drops, Ears, Both, 4 times a day, PRN Itch, # 10 mL, 1 Refills, Maintenance, 01/16/20 11:09:00 EDT, Otic Solution, [facility], 3 drops Ears, Both 4 times a day,PRN:Itch, 163, cm, 01/16/20 10:48:00 EDT, Height, 82.6, kg, 05/24/18 7:14:0... Start Date: 01/16/20 Status: Ordered atorvastatin 40 mg oral tablet See Instructions, [...] 10:54:00 EDT Start Date: 01/16/20 Status: Ordered Colcrys 0.6 mg oral tablet [...] Refills 0, Tot. Refills 0, Maintenance, Spasm, 12/09/19 12:56:00 EDT, Route to Pharmacy Electronically, [facility], 163, cm, 10/01/19 13:40:00 EDT, Height, 82.6, kg, ... Start Date: 12/09/19 Status: Ordered Diflucan 150 mg oral tablet 1 tablet = 150 mg, By Mouth, Once, may repeat x1, # 2 tablet, 1 Refills, Soft Stop, 12/29/19 16:39:00 EDT, [facility], 163, cm, 12/15/19 9:18:00 EDT, Height, 82.6, kg, 05/24/18 7:14:00 EST, Dry Weight Start Date: 12/29/19 Status: Ordered EpiPen 2-Juvenal = 0.3 mg, [...] By Mouth, Daily, # 120 tablet, Refills 11, Tot. Refills 11, Maintenance, 11/07/19 15:46:00 EDT, Route to Pharmacy Electronically, [facility], 163, cm, 10/01/19 13:40:00 EDT, Height, 82.6, kg, 05/24/18 7:14:00 EST, Dry We... Start Date: 11/07/19 Status: Ordered hydrOXYzine pamoate 50 mg oral [...] 1 Refills, Maintenance, 07/20/19 23:41:00 EDT, Tablet, [facility], 163, cm, 07/11/19 11:24:00 EST, Height, 82.6, kg, 05/24/18 7:14:00EST, Dry Weight Start Date: 07/20/19 Status: Ordered lisinopril 2.5 mg oral tablet 2.5 mg, 1, tablet, By Mouth, Daily, # 30 tablet, Refills 11, Tot. Refills 11, Maintenance, 10/02/2013:10:00 EDT, Route to Pharmacy Electronically, [facility], 163, cm, 10/01/19 13:40:00 EDT, [...] twice daily with meals, # 120 tablet, 2 Refills, Maintenance, 12/29/19 13:42:00 EDT, [facility], 163, cm, 12/15/19 9:18:00 EDT, Height, 82.6, kg, 05/24/18 7:14:00 EST, Dry Weight Start Date: 12/29/19 Status: Ordered Microlet Lancets Microlet Lancets, See Instructions, # 200 each, Refills 11, Tot. Refills 11, Maintenance, Check blood sugars four times a day DM Type2, 10/17/18 9:10:23 EDT, Compound Start Date: 10/17/18 Status: Ordered NovoLOG FlexPen 100 units/mL injectable solution See Instructions, Sliding scale NovoLog 200-250, 2 units 251 - 300 4 units 301- 350 6 units 351- 4008 units 401+ 10 units, # 15 mL, 6 Refills, Maintenance, 01/21/20 16:47:00 EDT, [facility], 163, cm, 01/16/20 10:48:00 EDT, Height,... Start Date: 01/21/20 Status: Ordered omeprazole 20 mg oral enteric coated capsule 1 capsule = 20 mg, By Mouth, 2 times a day, for 90 days, # 180 capsule, 3 Refills, Physician Stop 10/31/20 15:50:00 EDT, 11/06/19 15:50:00 EDT, [facility], 163, cm, 10/01/19 13:40:00 EDT, Height, 82.6, kg, 05/24/18 7:14:00 EST, Dry Weight Start Date: 11/06/19 Stop Date: 10/31/20 Status: Ordered ondansetron 8 mg oral tablet [...] Requisition Start Date: 05/19/16 Status: Ordered Pen [place], 31 G x 5 mm BD Ultra Fine III See Instructions, # 150 each, Refills 6, Tot. Refills 6, Maintenance, for use 4x daily with Lantus and humalog insulin E11.65, 06/24/18 10:09:38 EST, Compound Start Date: 06/24/18 Status: Ordered Pen [place], 31 G x 5 mm BD Ultra [...] 05/30/19 11:43:00 EST, Route to Pharmacy Electronically, [facility], 163, cm, 05/30/19 11:08:00 EST, Height, 82.6, kg, 05/24/18 7:14:00 EST,... Start Date: 05/30/19 Status: Ordered SUMAtriptan 100 mg oral tablet 1 tablet, By Mouth, Daily, PRN NEEDED FOR MIGRAINE, # 9 tablet, Refills 11 Tot. Refills 11, MAY REPEAT DOSE IN 2 HOURS IF NEEDED, [facility] Start Date: 04/14/19 Status: Ordered topiramate 50 mg oral tablet See Instructions, 1 tablet in morning, 3 tablets at bedtime, # 120 tablet, 5 Refills, Maintenance, 12/30/19 9:06:00 EDT, [facility], 163, cm, 12/15/19 9:18:00 EDT, Height, 82.6, kg,05/24/18 7:14:00 EST, Dry Weight Start Date: 12/30/19 Status: Ordered Tylenol 8 Hour Caplet 650 mg oral tablet, extended release 1 tablet = 650 mg, By Mouth, Every 8 hours, # 30 tablet, 0 Refills, Maintenance, 08/03/17 11:58:28 Start Date: 08/03/17 Status: Ordered Vraylar 3 mg oral capsule See Instructions, 1 capsule twice a week, 0 Refills, Maintenance, 09/06/18 14:26:35 EDT Start Date: 09/06/18 Status: Ordered Xolair 150 mg subcutaneous injection Subcutaneous Infusion, Every 14 days, 0 Refills, Maintenance Start Date: 01/31/11 Status: Ordered ZyrTEC 10 mg oral tablet 1 tablet = 10 mg, By Mouth, Daily, # 90 tablet, 1 Refills, Maintenance, 12/16/19 11:23:00 EDT, [facility], 163, cm, 12/15/19 9:18:00 EDT, Height, 82.6, kg, 05/24/18 7:14:00 EST, DryWeight Start Date: 12/16/19 Status: Ordered Problem List Condition Effective Dates [...]
--- OUTSIDE RECORDS SUMMARY | 2024-01-11 13:42 | XMS_ITS | Continuity of Care Document ---
Author Organization [facility] Address [address] [place] [address]- Care Team Providers Care Warehouse Stock Clerk Name Role Phone Gina Bhat MD Primary Care Physician [facility] Date[facility]s): 05/05/21 - 06/04/21 [facility] [address] [place] [address] Allergies, Adverse Reactions, Alerts Substance Reaction Severity [...] 05/04/09 Given Influenza Virus Vaccine (oldterm) 8 11/1/09 Given 1Result Comment: [02/13/2018] [id number] 2Result Comment: [02/08/2017] [facility] [id number] 317 02 3Result Comment: [01/24/2013] ORDERRED BY GINA BHAT MD 4Result Comment: [09/19/2017] [id number] 5Admin Note: vis given 6Admin Note: BIOMEDICAL [...] Start Date: 05/10/21 Status: Ordered Contour Next EZ Test Strips [...] 12/01/20 15:40:00 EDT, Route to Pharmacy Electronically, [email or web address], 163,cm, 11/22/20 12:47:00 EDT, Height [...] Stop, 11/01/20 15:04:00 EDT, Tablet, [facility], Partial fill upon patient request [...] drug. Start Date: 05/11/21 Status: Ordered LaMICtal 200 mg oral tablet [...] drug. Start Date: 05/11/21 Status: Ordered omeprazole 20 mg oral enteric [...] Weight Start Date: 03/16/21 Status: Ordered Pen [place], 31 G x 5 mm BD Ultra Fine III See Instructions, # 150 each, Refills 6, Tot. Refills 6, Maintenance, for use 4x daily with Lantus and humalog insulin E11.65, 06/24/18 10:09:38 EST, Compound Start Date: 06/24/18 Status: Ordered Pen [place], 31 G x 5 mm BD Ultra Fine III See Instructions, # 300 each, Refills 0, Tot. Refills 0, Maintenance, use with Novolog pen, 01/21/20 16:59:00 EDT, T2DM E11.9, Supply, 163, cm, 01/16/20 10:48:00 EDT, Height, 82.6, kg, 05/24/18 7:14:00 EST, Dry Weight Start Date: 01/21/20 Stop Date: 02/20/20 Status: Ordered rizatriptan 10 mg oral tablet 1 tablet = 10 mg, By Mouth, PRN, 0 Refills, Maintenance, 05/11/21 10:03:00 EST, Partial fill upon patient request if the prescription is for a schedule II opioid drug. Start Date: 05/11/21 Status: Ordered Singulair 10 mg oral tablet 10 mg, 1, tablet, By Mouth, Daily in PM, # 90 tablet, Refills 3, Tot. Refills 3, Maintenance, 02/23/21 16:10:00 EDT, Route to Pharmacy Electronically, [facility], Rx resent from 07/26/20, 163, cm, 02/21/21 15:42:00 EDT, Height, 81, kg, 09... Start Date: 02/23/21 Status: Ordered SUMAtriptan 100 mg oral tablet 1 tablet, By Mouth, Daily, PRN NEEDED FOR MIGRAINE, Patient is having more that 10 migraines permonth. MAY REPEAT DOSE IN 2 HOURS IF NEEDED, # 18 tablet, 11 Refills, Soft Stop, 04/19/21 13:11:00 EST, [facility], 163, cm, 04/15/21 11... Start Date: 04/19/21 Status: Ordered topiramate 50 mg oral tablet See Instructions, 1 tablet in morning, 4 tablets at bedtime, # 120 tablet, 5 Refills, Maintenance, 01/21/21 15:35:00 EDT, [facility], 163, [...] sites, # 2 mL, 5 Refills, Maintenance, 05/04/21 16:41:00 EST, Solution, [facility], Partial fill upon patient request if the prescription is for a schedule II opioid... Start Date: 05/04/21 Status: Ordered Tylenol 8 Hour Caplet 650 mg oral tablet, extended release 1 tablet = 650 mg, By Mouth, Every 8 hours, # 30 tablet, 0 Refills, Maintenance, 08/03/17 11:58:28 Start Date: 08/03/17 Status: Ordered Vicodin 5/500 Tablet See Instructions, 1/2 TAB PRN, 0 Refills, Maintenance, 05/11/21 10:03:00 EST, Partial fill upon patient request if the prescription is for a schedule II opioid drug. 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
--- OUTSIDE RECORDS SUMMARY | 2024-01-11 13:42 | XMS_ITS | Continuity of Care Document ---
Author Organization [facility] David lt Address [address] [place] [address]- Care Team Providers Care Technical Aid Name Role Phone Miles OTOOLE, Bernie Hardy Primary Care Physician Encounter [facility] Date(s): 01/22/23 - 02/21/23 [facility] Adult [address] [place] [address]- Allergies, Adverse Reactions, Alerts Substance Reaction Severity Status azithromycin 1 increases sx's Active NSAIDs Active morphine vomiting Active Flonase rhinitis Active [...] (oldterm) 8 03/14/09 Given 1Result Comment: [09/19/2017] [id number] 2Result Comment: [02/13/2018] [id number] 3Result Comment: [02/08/2017] [facility] [id number] 317 02 4Result Comment: [01/24/2013] ORDERRED BY [...] 05/25/22 6:49:00 EST, Route to Pharmacy Electronically, [facility], 163, cm, 04/04/22 7:05:00 EST, [...] 12/01/20 15:40:00 EDT, Route to Pharmacy Electronically, [facility], 163,cm, 11/22/20 12:47:00 [...] tablet, Refills 5, Maintenance, 10/01/22 10:34:00 EDT, [facility], [facility], [...] Personnel Name: Marisa CHAIDEZ, Neto Osorio Position: [facility] Renal MD Member Role: Lifetime Consulting Physician Address: Address: [address] [place] [address], [address] [place] [address]- Name: Lore Clinton RN Position: [facility] RN Member Role: Primary Care Nurse Name: Bernie Aquino NP Position: [facility] PCO Associate Professional Member Role: PCP Address: Address: [address] [place] [id number]- [place] Name: Gregg Hardy MD Position: [facility] Pulmonary MD Member Role: Lifetime Consulting Physician Address: Address: [address] [place] [address]- Care Team Related Persons Name: ONDINA SINGLETARY Address: home [address] [place] [address] Name: BLAIRE JACOB Address: home [address] [place] [address]
--- OUTSIDE RECORDS SUMMARY | 2024-01-11 13:42 | XMS_ITS | Continuity of Care Document ---
Author Organization [facility] David lt Address [address] [place] [address]- Care Team Providers Care Artificial Marble Worker Name Role Phone Miles OTOOLE, Bernie Hardy Primary Care Physician [phone] Encounter [facility] Date(s): 08/08/23 - 09/07/23 [facility] Adult [address] [place] [address]- Allergies, Adverse Reactions, Alerts Substance Reaction Severity Status azithromycin 1 increases sx's Active morphine vomiting Active NSAIDs Active Flonase rhinitis Active Augmentin [...] (oldterm) 8 03/14/09 Given 1Result Comment: [09/19/2017] [id number] 2Result Comment: [02/13/2018] [id number] 3Result Comment: [02/08/2017] [facility] [id number] 317 02 4Result Comment: [01/24/2013] ORDERRED BY [...] tablet, By Mouth, Daily, # 90 tablet, 2 Refills, Maintenance, 09/06/23 10:39:00 EDT, [facility], 163, cm, 09/06/23 10:02:00 EDT, Height, 76.2, kg, 01/06/22 8:38:00 EDT, Dry Weight Start Date: 09/06/23 Status: Ordered benztropine 0.5 mg oral tablet [...] 05/21/23 11:57:00 EST, Route to Pharmacy Electronically, [facility], 163, cm, 03/07/23 8:42:00 EDT, [...] 12/01/20 15:40:00 EDT, Route to Pharmacy Electronically, [facility], 163,cm, 11/22/20 12:47:00 EDT, Height [...] tablet, Refills 5, Maintenance, 03/27/23 23:12:00 EST, [facility], [facility] [...] Personnel Name: Marisa CHAIDEZ, Neto Osorio Position: [facility] Renal MD Member Role: Lifetime Consulting Physician Address: Address: [address] [place] [address] [address] [facility] [address]- Name: Oz SHERWOOD, Lore Position: [facility] RN Member Role: Primary Care Nurse Name: Miles OTOOLE, Bernie Hardy Position: [facility] PCO Associate Professional Member Role: PCP Address: Address: [address] [place] [address]- Name: Gregg Hardy MD Position: [facility] Pulmonary MD Member Role: Lifetime Consulting Physician Address: Address: [address] [place] [address]- Care Team Related Persons Name: ONDINA SINGLETARY Address: home [address] [place] [address] Name: BLAIRE JACOB Address: home [address] [place] [address]
--- OUTSIDE RECORDS SUMMARY | 2024-01-11 13:42 | XMS_ITS | Continuity of Care Document ---
Author Organization [facility] David lt Address [address] [place] [address]- Care Team Providers Care Fish Inspector Name Role Phone Miles OTOOLE, Bernie Hardy Primary Care Physician [phone] Encounter [facility] Date(s): 09/01/21 - 10/07/21 [facility] Adult [address] [place] [address]- Attending Physician: Bernie Aquino NP Allergies, Adverse Reactions, Alerts Substance Reaction Severity [...] (oldterm) 8 03/14/09 Given 1Result Comment: [02/13/2018] [id number] 2Result Comment: [02/08/2017] [facility] [id number] 317 02 3Result Comment: [01/24/2013] ORDERRED BY GINA GAINES MD 4Result Comment: [09/19/2017] [id number] 5Admin Note: vis given 6Admin Note: BIOMEDICAL [...] Height, 8... Start Date: 02/10/21 Status: Ordered Jade = 0.35 mg, By Mouth, Daily, 0 Refills, Maintenance, 01/16/20 10:54:00 EDT Start Date: 01/16/20 Status: Ordered carBAMazepine 100 mg oral capsule, extended release 1 capsule = 100 mg, By Mouth, 2 times a day, DX: Trigeminal neuralgia, # 60 capsule, 1 Refills, Maintenance, 06/07/21 15:10:00 EST, CR Capsule, [facility], Partial fill upon patientrequest if the prescription is for a schedule II opioi... Start Date: 06/07/21 Status: Ordered cetirizine 10 mg oral tablet 1 tablet = 10 mg, By Mouth, Daily, for 90 days, # 90 tablet, 1 Refills, Physician Stop 01/09/22 12:10:00 EDT, 07/13/21 12:10:00 EST, [facility], 163, cm, 07/13/21 11:43:00 EST, Height, 81, kg, 01/28/21 22:15:00 EDT, Dry Weight Start Date: 07/13/21 Stop Date: 01/09/22 Status: Ordered Clonazepam = 0.25 mg, By [...] Dry Weight Start Date: 04/10/21 Status: Ordered Multivitamin Daily, 0 Refills, Maintenance, [...] EDT, Route to Pharmacy Electronically, [facility], Rx resent from 07/26/20, 163, cm, 02/21/21 15:42:00 EDT, Height, 81, kg, 09... Start Date: 02/23/21 Status: Ordered topiramate 50 mg oral tablet [...]
--- OUTSIDE RECORDS SUMMARY | 2024-01-11 13:42 | XMS_ITS | Continuity of Care Document ---
Author Organization [facility] Address [address] [place] [address]- Care Team Providers Care Chief Radiology Name Role Phone Miles OTOOLE, Bernie Hardy Primary Care Physician [phone] [facility] [facility] Date(s): 11/21/22 - 12/21/22 [facility] [address] [place] [address] Allergies, Adverse Reactions, Alerts Substance Reaction Severity [...] (oldterm) 8 03/14/09 Given 1Result Comment: [09/19/2017] [id number] 2Result Comment: [02/13/2018] [id number] 3Result Comment: [02/08/2017] [facility] [id number] 317 02 4Result Comment: [01/24/2013] ORDERRED BY [...] 05/25/22 6:49:00 EST, Route to Pharmacy Electronically, [facility], 163, cm, 04/04/22 7:05:00 EST, [...] 12/01/20 15:40:00 EDT, Route to Pharmacy Electronically, [facility], 163,cm, 11/22/20 12:47:00 [...] 8:37:00 ED... Start Date: 12/15/22 Status: Ordered Emgality Prefilled Syringe 120 mg/mL [...] tablet, Refills 5, Maintenance, 10/01/22 10:34:00 EDT, [facility], [facility] [...] Personnel Name: Marisa CHAIDEZ, Neto Osorio Position: [facility] Renal MD Member Role: Lifetime Consulting Physician Address: Address: [address] [place] [address], [facility] [address] [place] [address]- Name: Lore Clinton RN Position: [facility] RN Member Role: Primary Care Nurse Name: Bernie Aquino NP Position: [facility] PCO Associate Professional Member Role: PCP Address: Address: [address] [place] [address]- [place] Name: Gregg Hardy MD Position: [facility] Pulmonary MD Member Role: Lifetime Consulting Physician Address: Address: [address] [place] [address]- Care Team Related Persons Name: ONDINA SINGLETARY Address: home [address] [place] [address] Name: BLAIRE JACOB Address: home [address] [place] [address]
--- OUTSIDE RECORDS SUMMARY | 2024-01-11 13:42 | XMS_ITS | Continuity of Care Document ---
Author Organization [facility] Sj Jauregui David lt Address [address] [place] [address]- Care Team Providers Care Electromechanical Assembler Name Role Phone Gina Bhat MD Primary Care Physician [facility] Date[facility]): 05/24/20 - 06/23/20 [facility] Sj Figueroaley Adult [address] [place] [address]- Allergies, Adverse Reactions, Alerts Substance Reaction Severity [...] (oldterm) 8 03/14/09 Given 1Result Comment: [02/13/2018] [id number] 2Result Comment: [02/08/2017] [facility] [id number] 02 3Result Comment: [01/24/2013] ORDERRED BY IGNA BHAT MD 4Result Comment: [09/19/2017] [id number] 5Admin Note: vis given 6Admin Note: BIOMEDICAL [...] 10:54:00 EDT Start Date: 01/16/20 Status: Ordered colchicine 0.6 mg oral tablet 0.6 mg, 1, tablet, By Mouth, 2 times a day, # 60 tablet, Refills 11, Tot. Refills 11, Maintenance, 05/18/20 17:15:00 EST, Route to Pharmacy Electronically, [facility], D/C RX ON FILE FOR COLCRYS, 163, cm, 05/13/20 9:12:00 EST, Height, 82... Start Date: 05/18/20 Status: Ordered Colcrys 0.6 mg oral tablet [...] EDT, Route to Pharmacy Electronically, [facility], 163, cm, 10/01/19 13:40:00 EDT, Height, 82.6, kg, ... Start Date: 12/09/19 Status: Ordered Diflucan 150 mg oral tablet 1 tablet = 150 mg, By Mouth, Once, may repeat x1, # 2 tablet, 1 Refills, Soft Stop, 12/29/19 16:39:00 EDT, [facility], 163, cm, 12/15/19 9:18:00 [...] Refills, Soft Stop, 05/13/20 10:25:00 EST, Capsule, [facility], 1 capsule By Mouth Once,PRN:as needed,Instr:repeat in 2 hours if he... Start Date: 05/13/20 Status: Ordered folic acid 1 mg oral tablet 4 mg, 4, tablet, By Mouth, Daily, # 120 tablet, Refills 11, Tot. Refills 11, Maintenance, 11/07/19 15:46:00 EDT, Route to Pharmacy Electronically, [facility], 163, cm, 10/01/19 13:40:00 EDT, [...] Maintenance, 07/20/19 23:41:00 EDT, Tablet, [facility], 163, cm, 07/11/19 11:24:00 EST, Height, 82.6, kg, 05/24/18 7:14:00EST, Dry Weight Start Date: 07/20/19 Status: Ordered lisinopril 2.5 mg oral tablet 2.5 mg, 1, tablet, By Mouth, Daily, # 30 tablet, Refills 11, Tot. Refills 11, Maintenance, 10/02/2013:10:00 EDT, Route to Pharmacy Electronically, [facility], 163, cm, 10/01/19 13:40:00 EDT, [...] meals, # 120 tablet, 5 Refills, Maintenance, 04/05/20 11:00:00 EST, [facility], 163, cm, 01/16/20 10:48:00 EDT, Height, 82.6, kg, 05/24/18 7:14:00 EST, Dry Weight Start Date: 04/05/20 Status: Ordered Microlet Lancets Microlet Lancets, See [...] Requisition Start Date: 05/19/16 Status: Ordered Pen [place], 31 G x 5 mm BD Ultra Fine III See Instructions, # 150 each, Refills 6, Tot. Refills 6, Maintenance, for use 4x daily with Lantus and humalog insulin E11.65, 06/24/18 10:09:38 EST, Compound Start Date: 06/24/18 Status: Ordered Pen [place], 31 G x 5 mm BD Ultra [...] tablet, Refills 1, Tot. Refills 1, Maintenance, 05/02/20 21:20:00 EST, Route to Pharmacy Electronically, [facility], 163, cm, 01/16/20 10:48:00 EDT, Height, 82.6, kg, 05/24/18 7:14:00 EST, . Start Date: 05/02/20 Status: Ordered SUMAtriptan 100 mg oral tablet [...] tablet, 5 Refills, Maintenance, 12/30/19 9:06:00 EDT, [facility], 163, cm, 12/15/19 9:18:00 EDT, Height, 82.6, kg,05/24/18 7:14:00 EST, Dry Weight Start Date: 12/30/19 Status: Ordered Trulicity Pen 0.75 mg/0.5 mL subcutaneous solution 0.5 mL = 0.75 mg, Subcutaneous Injection, Every week, rotate injection sites, # 2 mL, 5 Refills, Maintenance, 05/13/20 10:22:00 EST, Solution, [facility], Partial fill upon patient request if the prescription is for a schedule II opioid... Start Date: 05/13/20 Status: Ordered Tylenol 8 Hour Caplet 650 [...] Daily, # 90 tablet, 1 Refills, Maintenance, 05/02/20 21:20:00 EST, [facility], 163, cm, 01/16/20 10:48:00 EDT, Height, 82.6, kg, 05/24/18 7:14:00 EST, Dry Weight Start Date: 05/02/20 Status: Ordered Problem List Condition Effective Dates [...]
--- OUTSIDE RECORDS SUMMARY | 2024-01-11 13:42 | XMS_ITS | Continuity of Care Document ---
Author Organization [facility] David Address [address] [place] [address]- Care Team Providers Care Clinical Biostatistician Name Role Phone Miles OTOOLE, Bernie Hardy Primary Care Physician Encounter [facility] Date(s): 08/22/23 - 08/29/23 [facility] Adult [address] [place] [address]- Encounter Diagnosis Acute sinusitis(Discharge Diagnosis) - 08/22/23 Attending Physician: Not on Staff, Attending MD Allergies, Adverse Reactions, Alerts Substance Reaction Severity Status azithromycin 1 increases sx's Active Flonase rhinitis Active Adhesive Bandage rash Active NSAIDs Active morphine vomiting Active Augmentin 2 increases [...] (oldterm) 8 03/14/09 Given 1Result Comment: [09/19/2017] [id number] 2Result Comment: [02/13/2018] [id number] 3Result Comment: [02/08/2017] [facility] [id number] 4Result Comment: [01/24/2013] ORDERRED BY [...] 05/21/23 11:57:00 EST, Route to Pharmacy Electronically, [facility], 163, cm, 03/07/23 8:42:00 EDT, [...] 12/01/20 15:40:00 EDT, Route to Pharmacy Electronically, [facility], 163,cm, 11/22/20 12:47:00 EDT, Height Start Date: 12/01/20 Status: Ordered Diflucan 150 mg oral tablet 1 tablet = 150 mg, By Mouth, Once, # 1 tablet, 0 Refills, Soft Stop, 08/09/23 11:12:00 EDT, Tablet,[facility], Partial fill upon patient request if the prescription is for a schedule II opioid drug., 163, cm, 08/09/23 10:42:00 EDT, [facility]... Start Date: 08/09/23 Status: Ordered Emgality Prefilled Syringe 120 mg/mL [...] tablet, Refills 5, Maintenance, 03/27/23 23:12:00 EST, [facility] Electron[facility], [facility], [...] Dates Health Status Cl inical Service Informant Acute sinusitis Discharge Diagnosis 08/22/23 Vital Signs Most recent to oldest [Reference Range]: 1 Height 163 cm (08/22/23 8:24 AM) Weight 80.7 kg (08/22/23 8:24 AM) Oxygen Saturation [94-100 %] 97 % (08/22/23 8:24 AM) Pulse Rate [55-90 bpm] 98 bpm *H* (08/22/23 8:24 AM) Body Mass Index [18.5-24.99 kg/m2] 30.37 kg/m2 *>HHI* (08/22/23 8:24 AM) Blood Pressure [90-138/55-84 mm Hg] 116/ 78mm Hg (08/22/23 8:24 AM) Temperature [96.8-100.4 DegF] 98.3 DegF (08/22/23 8:24 AM) Blood pressure sites Arm, left (08/22/23 8:24 AM) Temperature Route Temporal (08/22/23 8:24 AM) Weight Obtained Via Standing scale (08/22/23 8:24 AM) Social History Social History Type Response Smoking Status Never smoker entered on: 05/12/13 Sex Note * Merly Mccoy: PERFORM, SIGN, VERIFY Event Display: Patient Education/Instruction Authored Date: [id number] [facility] *BMP [facility] [place] Clinical Summary Name HEMANT LEE Age 47 Years 1975 PCP Miles OTOOLE, Bernie Hardy PCP [facility] [id number] Visit Date 08/22/2023 08:17:00 Additional Instructions: Scheduled Appointments?? Future Appointments ?*BMP??So[facility] ?[address] ?Phone:??[phone]?Fax:??-- ?Appt. Date:??09/06/2023?10:10 AM ?Scheduled Provider:??Miles OTOOLE , Bernie He ?*[facility] ?[address]??[place],??[place],??[address] ?Phone:??--?Fax:??-- ?Appt. Date:??10/29/2023?9:45 AM ?Scheduled Provider:??Kip CHAIDEZ , Kelli Follow-Up Instructions ?? With: Address: When: As Needed With: Address: When: Bernie Aquino NP [address] [place] [phone] Diagnosis Acute sinusitis, unspecified Medications: Please continue your medications until treatment is completed or stopped by your provider. Discuss any questions related to medications with your provider. New Medications [facility], [address], [place] [id number], [phone] Levofloxacin (levoFLOXacin 500 mg oral tablet) 1 tab(s) Oral every 24 hours for 7 Days. Refills: 0. Next Dose: MethylPREDNISolone (Medrol Dosepak 4 mg oral tablet) 1 pack/packet Oral Daily for 6 Days. as directed on package labeling. Refills: 0. Next Dose: Medications to Continue with No Changes These medications were not printed or sent to your pharmacy Acetaminophen (Tylenol 8 Hour Caplet 650 mg oral tablet, extended release) 1 tab(s) Oral every 8 hours. Refills: 0. Next Dose: Acetaminophen/Butalbital/Caffeine (Fioricet oral capsule) 1 capsule Oral once as needed. repeat in 2 hours if headache is still present. Refills: 0. Next Dose: Amiloride (aMILoride 5 mg oral tablet) 2 tab(s) Oral Daily for 30 Days. Next Dose: Atorvastatin (atorvastatin 20 mg oral tablet) 1 tab(s) Oral Daily. REPLACING 10MG. Refills: 1. Next Dose: Benztropine (benztropine 0.5 mg oral tablet) 1 tab(s) Oral twice a day. Next Dose: Cetirizine (cetirizine 10 mg oral tablet) 1 tab(s) Oral Daily. Refills: 1. Next Dose: Clonazepam (clonazePAM 1 mg oral tablet) 1 tab(s) as needed Anxiety. Next Dose: Colchicine (colchicine 0.6 mg oral tablet) 1 tab(s) Oral twice a day. Refills: 11. Next Dose: Cyclobenzaprine (cyclobenzaprine 10 mg oral tablet) 1 tab(s) Oral 3 times a day as needed Spasm. Refills: 1. Next Dose: Durable Medical Equipment (Contour Next test strips) check blood glucose 3 times a day and a s needed. Dx code E 11.9 T2DM. Refills: 6. Next Dose: Epinephrine (EpiPen 2-Juvenal) 0.3 Milligram Intramuscular once. Next Dose: Fluconazole (Diflucan 150 mg oral tablet) 1 tab(s) Oral once. Refills: 0. Next Dose: fluticasone/umeclidinium/vilanterol (Trelegy Ellipta) Inhalation Daily. Next Dose: galcanezumab (Emgality Prefilled Syringe 120 mg/mL subcutaneous solution) 120 Milligram Subcutaneous Infusion Every 28 days. Next Dose: HydrOXYzine (hydrOXYzine hydrochloride 10 mg oral tablet) 1 tab(s) Oral Daily at Bedtime. Next Dose: Immune Globulin Intramuscular 20 GRAMS EVERY 3 WEEKS. Next Dose: Lamotrigine (lamotrigine 200 mg oral tablet) 1 tab(s) Oral Daily. Refills: 0. Next Dose: Levothyroxine (levothyroxine 0.05 mg oral tablet) 1 tab(s) Oral Daily. Go for blood test in 6 weeks.. Refills: 6. Next Dose: [place] (lithium 150 mg oral capsule) 1 capsule Oral twice a day. Next Dose: Melatonin (Melatonin 10 mg oral tablet) 1 tab(s) Oral Daily at Bedtime. Next Dose: Metformin (metFORMIN 500 mg oral tablet) 2 tab(s) Oral twice a day. Refills: 5. Next Dose: Miscellaneous Rx (Serum Calcium, Albumin, Parathyroid hormone) To be drawn on 01/12/22. Refills: 0. Next Dose: Montelukast (montelukast 10 mg oral tablet) 1 tab(s) Oral Daily in PM. Refills: 5. Next Dose: Multivitamin Daily. Next Dose: Nitrofurantoin (Macrobid macrocrystals-monohydrate 100 mg oral capsule) 1 capsule Oral twice a day for 7 Days. Next Dose: Norethindrone (Jade) 0.35 Milligram Oral Daily. Next Dose: omalizumab (Xolair 150 mg subcutaneous injection) Subcutaneous Infusion Every 14 days. Next Dose: omalizumab (Xolair 150 mg subcutaneous injection) 300 mg Subcutaneous Injection. Next Dose: Omeprazole (omeprazole 40 mg oral enteric coated capsule) 1 capsule Oral twice a day. Refills: 6. Next Dose: Ondansetron (ondansetron 8 mg oral tablet) TAKE 1 TABLET BY MOUTH 3 TIMES A DAY NEEDED FOR NAUSEA AND VOMITING. Refills: 0. Next Dose: Oxcarbazepine (Trileptal 300 mg oral tablet) 1.5 tabs BID. Next Dose: Rizatriptan (rizatriptan 10 mg oral tablet) 1 tab(s) Oral. PRN. Next Dose: sitagliptin (Januvia 100 mg oral tablet) 1 tab(s) Oral Daily. Refills: 5. Next Dose: Topiramate (topiramate 50 mg oral tablet) TAKE 1 TABLET IN THE MORNING AND 3 TABLETS AT BEDTIME.. Refills: 5. Next Dose: Allergy Info:?? NSAIDs; Cats; Adhesive Bandage; Demerol HCl; Reglan; Augmentin; Flonase; morphine; azithromycin Medications Given This Visit Future Orders ?No future orders Future Orders ?No future orders Vital Signs Height 163 cm Weight 80.7 kg BMI 30.37 kg/m2 Blood Pressure 116 mm Hg/78 mm Hg Temperature 98.3 DegF Pulse Rate 98 bpm Respiratory Rate 02 Sat Mode of Delivery 97 %/ You can now view a summary of your hospital visit from the comfort of your home through a free online portal called [facility]. [facility] is a website that allows you to securely view your medical information including discharge summary, medications and follow-up visits. ??You can alsosend a secure electronic message to your doctor???s office to request appointments, renew medications or just ask a question. You can enroll at [email or web address] or register during your next office visit. Disclaimer:?? The information provided is of a general nature and is intended to be used in conjunction with the recommendations and advice of your health care practitioner. ??Every effort has been made to ensure that the information provided is accurate and complete at the time it is provided to you however, as your needs change, or, as new ??information becomes available, different or additional instructions may be required. If you have questions, please consult with your primary care provider or pharmacist, as appropriate. ??This information is not intended to serve as substitution for assessment and evaluation by a qualified health care provider. If you do not have a primary care provider, you may find a [facility] provider by calling [facility] [employer] Link at [phone]. [facility], in keeping with [facility] guidance, no longer requires face masks for staff, patientsor visitors in most situations. Similar to time spent indoors at other locations, there is the chance that you were exposed to respiratory viruses during your time with us (such as flu or COVID-19).? If you develop symptoms concerning for a viral respiratory infection, please seek testing (and treatment if indicated) from your medical provider or home test kit. For information about the plan of care including goals and instructions for your diagnosis, please see the patient education orders section of this document. Patient Education Materials?? The content of this educational material or handout may have been modified, supplemented, or adapted from its original content and format to support your individualized medical care. Patient Care team information Care Team Personnel Name: Marisa CHAIDEZ, Neto Osorio Position: [facility] Renal MD Member Role: Lifetime Consulting Physician Address: Address: [address] [place] [address] [address] [facility] [place] [address]- Name: Oz SHERWOOD, Lore Position: [facility] RN Member Role: Primary Care Nurse Name: Bernie Aquino NP Position: [facility] PCO Associate Professional Member Role: PCP Address: Address: [address] [place] [address]- [place] Name: Gregg Hardy MD Position: [facility] Pulmonary MD Member Role: Lifetime Consulting Physician Address: Address: [address] [place] [address]- Care Team Related Persons Name: ONDINA SINGLETARY Address: home [address] [place] [address] Name: BLAIRE JACOB Address: home [address] [place] [address]
--- OUTSIDE RECORDS SUMMARY | 2024-01-11 13:42 | XMS_ITS | Continuity of Care Document ---
Author Organization [facility] David lt Address [address] [place] [address]- Care Team Providers Care Juice Scaleman Name Role Phone Perlita CHAIDEZ, Gina Smith Primary Care Physician [phone] [facility] Date[facility]): 08[facility]05/19 - 08/15/19 [facility] Adult [address] [place] [address]- [facility] Attending Physician: Brooklyn Shankar Admitting Physician: AdmBrooklyn lopez Referring Physician: AdmtrBrooklyn Allergies, Adverse Reactions, Alerts Substance Reaction Severity Status morphine vomiting Active Flonase Active Other Food Allergy 1 Active Reglan double vision Active Demerol HCl vomiting Active Adhesive Bandage Active Cats Active 1lemons Immunizations Given and Recorded Vaccine [...] (oldterm) 8 03/14/09 Given 1Result Comment: [02/13/2018] [id number] 2Result Comment: [02/08/2017] [facility] [id number] 317 02 3Result Comment: [01/24/2013] ORDERRED BY GINA GAINES MD 4Result Comment: [09/19/2017] [id number] 5Admin Note: vis given 6Admin Note: BIOMEDICAL [...] 01/06/19 11:51:55 EDT, Route to Pharmacy Electronically, [id number], [facility] Start Date: [...] Soft Stop, 06/06/19 10:53:00 EST, Tablet,[facility], 163, cm, 06/04/19 8:19:00 EST, [...] Maintenance, 07/20/19 23:41:00 EDT, Tablet, [facility], 163, cm, 07/11/19 11:24:00 EST, Height, 82.6, kg, 05/24/18 7:14:00EST, Dry Weight Start Date: 07/20/19 Status: Ordered lisinopril 2.5 mg oral tablet 2.5 mg, 1, tablet, By Mouth, Daily, # 30 tablet, Refills 11, Tot. Refills 11, Maintenance, 10/10/1915:45:18 EDT, Route to Pharmacy Electronically, [id number], [facility] Start Date: 10/09/18 Status: Ordered [...] Requisition Start Date: 05/19/16 Status: Ordered Pen [place], 31 G x 5 mm BD Ultra [...] 2 diabetes mellitus(Confirmed) Active Dyshidrotic eczema(Confirmed) Active Procedures Procedure Date Related Diagnosis Body Site Status upper endoscopy 201207/29/12 Comp leted fiberoptic bronchoscopy C ompleted MRI brain , 2011 - chronic s inusitis, no brain path pathology Complete d placement of port-a-cath, August 2010 Completed sleep study 2011 Complete d Social History Social History Type Response Smoking Status Never smoker entered on: 01/21/18 Sex
--- OUTSIDE RECORDS SUMMARY | 2024-01-11 13:42 | XMS_ITS | Continuity of Care Document ---
Author Organization [facility] [place] David lt Address [address] [place] [address]- Care Team Providers Care Geomagnetist Name Role Phone Gina Bhat MD Primary Care Physician [facility] Date[facility]): 02[facility]24[facility]21 - 03/26/21 [facility] Adult [address] [place] [address]- Allergies, Adverse Reactions, Alerts Substance Reaction Severity [...] (oldterm) 8 03/14/09 Given 1Result Comment: [02/13/2018] [id number] 2Result Comment: [02/08/2017] [facility] [id number] 317 02 3Result Comment: [01/24/2013] ORDERRED BY GINA BHAT MD 4Result Comment: [09/19/2017] [id number] 5Admin Note: vis given 6Admin Note: BIOMEDICAL [...] 11:52:00EDT, Route to Pharmacy Electronically, [facility], 163, cm, 09/23/20 9:42:00 EDT,Height [...] Refills, Maintenance, 10/04/20 11:38:00 EDT, [facility], 163, cm, 09/23/20 9:42:00 EDT, [...] Refills, Maintenance, 02/10/21 15:07:00 EDT, [facility], 163, cm, 02/10/21 14:31:00 EDT, [...] Weight Start Date: 03/16/21 Status: Ordered Pen [place], 31 G x 5 mm BD Ultra Fine III See Instructions, # 150 each, Refills 6, Tot. Refills 6, Maintenance, for use 4x daily with Lantus and humalog insulin E11.65, 06/24/18 10:09:38 EST, Compound Start Date: 06/24/18 Status: Ordered Pen [place], 31 G x 5 mm BD Ultra [...] 02/23/21 16:10:00 EDT, Route to Pharmacy Electronically, [facility], Rx resent from 07/26/20, 163, cm, 02/21/21 15:42:00 EDT, Height, 81, kg, 09... Start Date: 02/23/21 Status: Ordered SUMAtriptan 100 mg oral tablet 1 tablet, By Mouth, Daily, PRN NEEDED FOR MIGRAINE, MAY REPEAT DOSE IN 2 HOURS IF NEEDED, # 9 tablet, 11 Refills, Soft Stop, 05/10/20 14:37:00 EST, [facility], 163, cm, 01/16/20 10:48:00 EDT, Height, 82.6, kg, 05/24/18 7:14:00 ESTDr... Start Date: 05/10/20 Status: Ordered topiramate 50 mg oral tablet See Instructions, 1 tablet in morning, 3 tablets at bedtime, # 120 tablet, 5 Refills, Maintenance, 01/21/21 15:35:00 EDT, [facility], 163, cm, 11/22/20 12:47:00 EDT, [...]
--- OUTSIDE RECORDS SUMMARY | 2024-01-11 13:42 | XMS_ITS | Continuity of Care Document ---
Author Organization [facility] [place] David Address [address] [place] [address]- Care Team Providers Care Cnc Programmer Name Role Phone Perlita CHAIDEZ, Gina Smith Primary Care Physician [phone] [facility]): 04[facility]21 - 04/13/21 [facility] Sj Figueroaley Adult [address] [place] [address]- Encounter Diagnosis Acute sinusitis(Discharge Diagnosis) - 04/06/21 Attending Physician: Not on Staff, Attending MD [...] (oldterm) 8 03/14/09 Given 1Result Comment: [02/13/2018] [id number] 2Result Comment: [02/08/2017] [facility] [id number] 317 02 3Result Comment: [01/24/2013] ORDERRED BY GINA GAINES MD 4Result Comment: [09/19/2017] [id number] 5Admin Note: vis given 6Admin Note: BIOMEDICAL [...] Weight Start Date: 03/16/21 Status: Ordered Pen [place], 31 G x 5 mm BD Ultra Fine III See Instructions, # 150 each, Refills 6, Tot. Refills 6, Maintenance, for use 4x daily with Lantus and humalog insulin E11.65, 06/24/18 10:09:38 EST, Compound Start Date: 06/24/18 Status: Ordered Pen [place], 31 G x 5 mm BD Ultra [...] EDT, Route to Pharmacy Electronically, [facility], Rx resent from 07/26/20, 163, [...] inical Service Informant Acute sinusitis Discharge Diagnosis 04/06/21 Vital Signs Most recent to oldest [Reference Range]: 1 Height 163 cm (04/06/21 8:42 AM) Social History Social History Type Response Smoking Status Never smoker entered on: 01/21/18 Sex
--- OUTSIDE RECORDS SUMMARY | 2024-01-11 13:42 | XMS_ITS | Continuity of Care Document ---
Author Organization [facility] David lt Address [address] [place] [address]- Care Team Providers Care Lard Bleacher Name Role Phone Miles OTOOLE, Bernie Hardy Primary Care Physician [facility] Date(s): 09/01/21 - 10/01/21 [facility] [place] Adult [address] [place] [address]- Allergies, Adverse Reactions, Alerts Substance Reaction Severity [...] (oldterm) 8 03/14/09 Given 1Result Comment: [02/13/2018] [id number] 2Result Comment: [02/08/2017] [facility] [id number] 317 02 3Result Comment: [01/24/2013] ORDERRED BY GINA GAINES MD 4Result Comment: [09/19/2017] [id number] 5Admin Note: vis given 6Admin Note: BIOMEDICAL [...] EDT, Route to Pharmacy Electronically, [facility], Rx resent from 07/26/20, 163, [...]
--- OUTSIDE RECORDS SUMMARY | 2024-01-11 13:42 | XMS_ITS | Continuity of Care Document ---
Author Organization [facility] Sj Jauregui David lt Address [address] [place] [address]- Care Team Providers Care Granite Setter Name Role Phone Gina Bhat MD Primary Care Physician [facility]counter [facility] Date(s): 03/30/20 - 04/29/20 [facility] Sj Figueroaley Adult [address] [place] [address]- Allergies, Adverse Reactions, Alerts Substance Reaction Severity [...] (oldterm) 8 03/14/09 Given 1Result Comment: [02/13/2018] [id number] 2Result Comment: [02/08/2017] [facility] [id number] 317 02 3Result Comment: [01/24/2013] ORDERRED BY GIAN BHAT MD 4Result Comment: [09/19/2017] [id number] 5Admin Note: vis given 6Admin Note: BIOMEDICAL [...] cm, 10/01/19 13:40:00 EDT, Height, 82.6, kg, 01/11/1... Start Date: 12/09/19 Status: Ordered Diflucan 150 mg oral tablet 1 tablet = 150 mg, By Mouth, Once, may repeat x1, # 2 tablet, 1 Refills, Soft Stop, 12/29/19 16:39:00 EDT, [email or web address], 163, cm, 12/15/19 9:18:00 EDT, [...] EDT, Route to Pharmacy Electronically, [email or web address], 163, cm, 10/01/19 13:40:00 EDT, [...] Maintenance, 07/20/19 23:41:00 EDT, Tablet, [email or web address], 163, cm, 07/11/19 11:24:00 EST, Height, 82.6, kg, 05/24/18 7:14:00EST, Dry Weight Start Date: 07/20/19 Status: Ordered lisinopril 2.5 mg oral tablet 2.5 mg, 1, tablet, By Mouth, Daily, # 30 tablet, Refills 11, Tot. Refills 11, Maintenance, 10/02/2013:10:00 EDT, Route to Pharmacy Electronically, [email or web address], 163, cm, 10/01/19 13:40:00 EDT, [...] Refills, Maintenance, 04/05/20 11:00:00 EST, [email or web address], 163, cm, 01/16/20 10:48:00 EDT, [...] Requisition Start Date: 05/19/16 Status: Ordered Pen Wampum, 31 G x 5 mm BD Ultra Fine III See Instructions, # 150 each, Refills 6, Tot. Refills 6, Maintenance, for use 4x daily with Lantus and humalog insulin E11.65, 06/24/18 10:09:38 EST, Compound Start Date: 06/24/18 Status: Ordered Pen Wampum, 31 G x 5 mm BD Ultra [...] 05/30/19 11:43:00 EST, Route to Pharmacy Electronically, [facility], 163, cm, 05/30/19 11:08:00 EST, Height, 82.6, kg, 05/24/18 7:14:00 EST,... Start Date: 05/30/19 Status: Ordered SUMAtriptan 100 mg oral tablet 1 tablet, By Mouth, Daily, PRN NEEDED FOR MIGRAINE, # 9 tablet, Refills 11 Tot. Refills 11, MAY REPEAT DOSE IN 2 HOURS IF NEEDED, [facility] Start Date: 04/14/19 Status: Ordered topiramate 50 mg oral tablet See Instructions, 1 tablet in morning, 3 tablets at bedtime, # 120 tablet, 5 Refills, Maintenance, 12/30/19 9:06:00 EDT, [facility], 163, cm, 12/15/19 9:18:00 EDT, [...]
--- OUTSIDE RECORDS SUMMARY | 2024-01-11 13:42 | XMS_ITS | Continuity of Care Document ---
Author Organization [facility] Address [address] [place] [address]- Care Team Providers Care Shredding Machine Tender Name Role Phone Miles OTOOLE, Bernie Hardy Primary Care Physician Encounter [facility] Date(s): 11/08/22 - 12/08/22 [facility] [address] [place] [id number] Allergies, Adverse Reactions, Alerts Substance Reaction Severity [...] (oldterm) 8 03/14/09 Given 1Result Comment: [09/19/2017] [id number] 2Result Comment: [02/13/2018] [id number] 3Result Comment: [02/08/2017] [facility] [id number] 317 02 4Result Comment: [01/24/2013] ORDERRED BY [...] 05/25/22 6:49:00 EST, Route to Pharmacy Electronically, [facility], 163, cm, 04/04/22 7:05:00 EST, [...] 12/01/20 15:40:00 EDT, Route to Pharmacy Electronically, [facility], 163,cm, 11/22/20 12:47:00 EDT, Height [...] tablet, Refills 5, Maintenance, 10/01/22 10:34:00 EDT, [facility], [...] Personnel Name: Marisa CHAIDEZ, Neto Osorio Position: [facility] Renal MD Member Role: Lifetime Consulting Physician Address: Address: [address] [place] [address], [address] [place] [address]- [place] Name: Lore Clinton RN Position: [facility] RN Member Role: Primary Care Nurse Name: Miles OTOOLE, Bernie Hardy Position: [facility] PCO Associate Professional Member Role: PCP Address: Address: [address] [place] [address]- [place] Name: Gregg Hardy MD Position: [facility] Pulmonary MD Member Role: Lifetime Consulting Physician Address: Address: [address] [place] [address]- Care Team Related Persons Name: QUAN SINGLETARYEN Address: home [address] [place] [address] Name: BLAIRE JACOB Address: home [address] [place] [address]
--- OUTSIDE RECORDS SUMMARY | 2024-01-11 13:43 | XMS_ITS | Continuity of Care Document ---
Author Organization [facility] Juventino David lt Address [address] [place] [address]- Care Team Providers Care Grid Maker Name Role Phone Miles OTOOLE, Bernie Hardy Primary Care Physician Encounter [facility] [place] Date(s): 09/21/22 - 10/21/22 [facility] Adult [address] [place] [address]- Allergies, Adverse Reactions, Alerts Substance Reaction Severity Status azithromycin 1 increases sx's Active Augmentin 2 increases sx Active NSAIDs Active morphine vomiting Active Flonase rhinitis Active Reglan double vision [...] (oldterm) 8 03/14/09 Given 1Result Comment: [09/19/2017] [id number] 2Result Comment: [02/13/2018] [id number] 3Result Comment: [02/08/2017] [facility] [id number] 317 02 4Result Comment: [01/24/2013] ORDERRED BY [...] 05/25/22 6:49:00 EST, Route to Pharmacy Electronically, [facility], 163, cm, 04/04/22 7:05:00 EST, [...] 12/01/20 15:40:00 EDT, Route to Pharmacy Electronically, [facility], 163,cm, 11/22/20 12:47:00 EDT, Height [...] tablet, Refills 5, Maintenance, 10/01/22 10:34:00 EDT, [facility] [...] Personnel Name: Marisa CHAIDEZ, Neto Osorio Position: [facility] Renal MD Member Role: Lifetime Consulting Physician Address: Address: [address] [place] [address], [address] [place] [address]- [place] Name: Lore Clinton RN Position: [facility] RN Member Role: Primary Care Nurse Name: Miles OTOOLE, Bernie Hardy Position: [facility] PCO Associate Professional Member Role: PCP Address: Address: [address] [place] [address]- [place] Name: Gregg Hardy MD Position: [facility] Pulmonary MD Member Role: Lifetime Consulting Physician Address: Address: [address] [place] [address]- Care Team Related Persons Name: MERRITT SINGLETARY Address: home [address] [place] [address] Name: BLAIRE JACOB Address: home [address] [place] [address]
--- OUTSIDE RECORDS SUMMARY | 2024-01-11 13:43 | XMS_ITS | Continuity of Care Document ---
Author Organization [facility] Address [address] [place] [address]- Care Team Providers Care Feed Project Engineer Name Role Phone Miles OTOOLE, Bernie Hardy Primary Care Physician [facility]counter [facility] Date(s[facility] 11/13/22 - 12/13/22 [facility] [address] [place] [address] Attending Physician: Brooklyn Shankar Admitting Physician: AdmtrBrooklyn Referring Physician: Admtr, ArShabbir Allergies, Adverse Reactions, Alerts Substance Reaction Severity [...] (oldterm) 8 03/14/09 Given 1Result Comment: [09/19/2017] [id number] 2Result Comment: [02/13/2018] [id number] 3Result Comment: [02/08/2017] [facility] [id number] 317 02 4Result Comment: [01/24/2013] ORDERRED BY [...] 1 Refills, Maintenance, 07/03/22 16:02:00 EST, [facility], 163, cm, 06/26/22 7:02:00 EST, [...] 05/25/22 6:49:00 EST, Route to Pharmacy Electronically, [facility], 163, cm, 04/04/22 7:05:00 EST, [...] 12/01/20 15:40:00 EDT, Route to Pharmacy Electronically, [facility], 163,cm, 11/22/20 12:47:00 EDT, Height [...] tablet, Refills 5, Maintenance, 10/01/22 10:34:00 EDT, [facility], [facility], [...] Status Never smoker entered on: 05/12/13 Sex [place] Neck * Event Display: Ultrasound Neck Authored Date: * Event Display: Ultrasound Neck Authored Date: Radiology * Trisha Traore: PERFORM Event Display: Radiology Results Scanned Authored Date: [id number] Patient Care team information Care Team Personnel Name: Marisa CHAIDEZ, Neto Osorio Position: [facility] Renal MD Member Role: Lifetime Consulting Physician Address: Address: [address] [place] [address], [address] [place] [address]- [place] Name: Lore Clinton RN Position: [facility] RN Member Role: Primary Care Nurse Name: Bernie Aquino NP Position: [facility] PCO Associate Professional Member Role: PCP Address: Address: [address] [place] [address]- [place] Name: Gregg Hardy MD Position: [facility] Pulmonary MD Member Role: Lifetime Consulting Physician Address: Address: [address] [place] [address]- [place] Care Team Related Persons Name: ONDINA SINGLETARY Address: home [address] [place] [address] Name: BLAIRE JACOB Address: home [address] [place] [address]
--- OUTSIDE RECORDS SUMMARY | 2024-01-11 13:43 | XMS_ITS | Continuity of Care Document ---
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) - 11/18/21 Hyperparathyroidism - lithum induced(Discharge Diagnosis) - 11/18/21 Attending Physician: Bernie Aquino NP Referring Physician: Ondina CHAIDEZ, Jonathan Flores Allergies, Adverse Reactions, Alerts Substance Reaction Severity [...] 13-valent vaccine 05/13/14 Given FluLaval (oldterm) 5 8/24/12 Given FluLaval (oldterm) 6 02/16/10 Given Fluvirin (oldterm) 01/23/11 Given pneumococcal 23-valent vaccine 12/19/09 Given influ virus vac, H1N1, inactive(oldterm) 7 05/04/09 Given Influenza Virus Vaccine (oldterm) 8 03/14/09 Given 1Result Comment: [02/13/2018] [id number] 2Result Comment: [02/08/2017] [facility] [id number] 317 02 3Result Comment: [01/24/2013] ORDERRED BY GINA GAINES MD 4Result Comment: [09/19/2017] [id number] 5Admin Note: vis given 6Admin Note: BIOMEDICAL [...] 11, Route to Pharmacy Electronically, [facility], 163, cm, 04/15/21 11:42:00 EST, [...] EDT, Height Start Date: 12/01/20 Status: Ordered cyclobenzaprine 10 mg oral tablet 10 mg, 1, tablet, By Mouth, 3 times a day, for 14 days, # 42 tablet, Refills 0, Tot. Refills 0, Acute 11/29/21 13:41:00 EDT, 11/15/21 13:41:00 EDT, Route to Pharmacy Electronically, [facility], Partial fill upon patient request if the pr... Start Date: 11/15/21 Stop Date: 11/29/21 Status: Ordered EpiPen 2-Juvenal = 0.3 mg, [...] Mouth, Daily, # 30 tablet, Refills 11, Route to Pharmacy Electronically, [facility], 163, cm, 09/07/21 9:26:00 EDT, Height, 81, kg, 01/28/21 22:15:00 EDT, Dry Weight Start Date: 11/15/21 Status: Ordered lithium 300 mg oral tablet 2 tablet = 600 mg, By Mouth, 2 times a day, # 30 tablet, 0 Refills, Maintenance, 11/17/13 13:36:11 EDT, Tablet Start Date: 11/17/13 Status: Ordered MetFORMIN (Eqv-Glucophage XR) 500 mg oral tablet, extended release 2 tablet = 1,000 mg, By Mouth, Daily, for 30 days, take at dinner, # 60 tablet, 5 Refills, Physician Stop 05/17/22 9:27:00 EST, 11/18/21 9:27:00 EDT Start Date: 11/18/21 Stop Date: 05/17/22 Status: Ordered Multivitamin Daily, 0 Refills, Maintenance, [...] EDT, Route to Pharmacy Electronically, [facility], Rx resent from 07/26/20, 163, cm, 02/21/21 15:42:00 EDT, Height, 81, kg, 09... Start Date: 02/23/21 Status: Ordered topiramate 50 mg oral tablet See Instructions, TAKE 1 TABLET IN THE MORNING AND 3 TABLETS AT BEDTIME., # 120 tablet, 5 Refills, [facility], 163, cm, 06/13/21 9:32:00 EST, [...] Effective Dates Health Status Clinical Service Informant Asthma - severe Discharge Diagnosis 11/18/21 Hyper-IgE syndrome Discharge Diagnosis 11/18/21 Congenital Hypogammaglobulinemia Discharge Diagnosis 11/18/21 Hyperparathyroidism - lithum induced Discharge Diagnosis 11/18/21 Vital Signs Most recent to oldest [Reference Range]: 1 Height 163 cm (11/18/21 9:10 AM) Weight 77.7 kg (11/18/21 9:10 AM) Oxygen Saturation [94-100 %] 98 % (11/18/21 9:10 AM) Pulse Rate [55-90 bpm] 85 bpm (11/18/21 9:10 AM) Body Mass Index [18.5-24.99] 29.24 *H* (11/18/21 9:10 AM) Blood Pressure [90-138/55-84 mm Hg] 109/ 74mm Hg (11/18/21 9:10 AM) Temperature [96.8-100.4 DegF] 98.4 DegF (11/18/21 9:10 AM) Blood pressure sites Arm, left (11/18/21 9:10 AM) Temperature Route Temporal (11/18/21 9:10 AM) Weight Obtained Via Standing scale (11/18/21 9:10 AM) Social History Social History Type Response Smoking Status Never smoker entered on: 05/12/13 Sex
--- OUTSIDE RECORDS SUMMARY | 2024-01-11 13:43 | XMS_ITS | Continuity of Care Document ---
Author Organization [facility] Address [address] [place] [address]- Care Team Providers Care Manager Cafe Name Role Phone Miles OTOOLE, Bernie Hardy Primary Care Physician Encounter [facility] Date(s): 12/26/21 - 01/25/22 [facility] [address] [place], [place] [address] Attending Physician: Brooklyn Sahnkar Admitting Physician: Brooklyn Shankar Referring Physician: AdmtrBrooklyn Allergies, Adverse Reactions, Alerts [...] (oldterm) 8 03/14/09 Given 1Result Comment: [02/13/2018] [id number] 2Result Comment: [02/08/2017] [facility] [id number] 317 02 3Result Comment: [01/24/2013] ORDERRED BY GINA GAINES MD 4Result Comment: [09/19/2017] [id number] 5Admin Note: vis given 6Admin Note: BIOMEDICAL [...] prescription is for a schedule II opioid drug.Jenn cm, 08/29/21 11:01:00 EDT,... Start Date: 09/02/21 Status: Ordered ondansetron 8 mg oral tablet See Instructions, TAKE 1 TABLET BY MOUTH 3 TIMES A DAY NEEDED FOR NAUSEA AND VOMITING, # 30 tablet, 0 Refills, [facility], [address]barber, 06/07/21 14:40:00 EST, Height, 81, kg, 01/28/21 [...] Personnel Name: Bernie Aquino NP Address: [address] [place] [address]-
--- OUTSIDE RECORDS SUMMARY | 2024-01-11 13:43 | XMS_ITS | Continuity of Care Document ---
Author Organization [facility] David lt Address [address] [place] [address]- Care Team Providers Care Outdoor Recreation Specialist Name Role Phone Gina Bhat MD Primary Care Physician [phone] Encounter [facility] Date(s): 08/18/19 - 08/25/19 [facility] Adult [address] [place] [address]- [facility] Encounter Diagnosis Orthostasis(Discharge Diagnosis) - 08/18/19 Lightheadedness(Discharge Diagnosis) - 08/18/19 Tachycardia(Discharge Diagnosis) - 08/18/19 Attending Physician: Gina Bhat MD Allergies, Adverse [...] (oldterm) 8 03/14/09 Given 1Result Comment: [02/13/2018] [id number] 2Result Comment: [02/08/2017] [facility] [id number] 317 02 3Result Comment: [01/24/2013] ORDERRED BY GINA BHAT MD 4Result Comment: [09/19/2017] [id number] 5Admin Note: vis given 6Admin Note: BIOMEDICAL [...] 01/06/19 11:51:55 EDT, Route to Pharmacy Electronically, [id number], [facility] Start Date: 01/06/19 Status: Ordered [...] EST, Route to Pharmacy Electronically, [facility], Patient prescribed increased dose secondary [...] EDT, 08/20/19 12:34:00 EDT, Tablet, [facility], 163, cm, 07/11/19 11:24:00 EST, Height, 82.6, kg, 05/24/18 7:14:00 EST, Dry Weight Start Date: 08/20/19 Stop Date: 08/30/19 Status: Ordered Lipitor 40 mg oral tablet 1 tablet = 40 mg, By Mouth, Daily, # 90 tablet, 1 Refills, Maintenance, 07/20/19 23:41:00 EDT, Tablet, [facility], 163, cm, 07/11/19 11:24:00 EST, Height, 82.6, kg, 05/24/18 7:14:00EST, Dry Weight Start Date: 07/20/19 Status: Ordered lisinopril 2.5 mg oral tablet 2.5 mg, 1, tablet, By Mouth, Daily, # 30 tablet, Refills 11, Tot. Refills 11, Maintenance, 10/10/1915:45:18 EDT, Route to Pharmacy Electronically, [id number], [facility] Start Date: 10/09/18 Status: Ordered [...] Requisition Start Date: 05/19/16 Status: Ordered Pen Ford, 31 G x 5 mm BD Ultra [...] Dates Health Status Cl inical Service Informant Orthostasis Discharge Diagnosis 08/18/19 Lightheadedness Discharge Diagnosis 08/18/19 Tachycardia Discharge Diagnosis 08/18/19 Social History Social History Type Response Smoking Status Never smoker entered on: 01/21/18 Sex
--- OUTSIDE RECORDS SUMMARY | 2024-01-11 13:43 | XMS_ITS | Continuity of Care Document ---
Author Organization [facility] David lt Address [address] [place] [address]- Care Team Providers Care Cardiac Tech Name Role Phone Miles OTOOLE, Bernie Hardy Primary Care Physician [phone] Encounter [facility] [place] [place] Date(s): 10/01/23 - 10/31/23 [facility] Adult [address] [place] [address]- Allergies, Adverse Reactions, Alerts Substance Reaction Severity Status azithromycin 1 increases sx's Active Augmentin 2 increases sx Active Cats sneezing Active NSAIDs Active morphine vomiting Active Flonase [...] (oldterm) 8 03/14/09 Given 1Result Comment: [09/19/2017] [id number] 2Result Comment: [02/13/2018] [id number] 3Result Comment: [02/08/2017] [facility] [id number] 317 02 4Result Comment: [01/24/2013] ORDERRED BY [...] 05/21/23 11:57:00 EST, Route to Pharmacy Electronically, [facility], 163, cm, 03/07/23 8:42:00 EDT, Height, 76.2, kg, 01/06/22 8:38:00 EDT, Dry Weight Start Date: 05/21/23 Status: Ordered Combivent Respimat 20 mcg-100 mcg/inh inhalation aerosol 1 puffs, Inhalation, 4 times a day, # 1 each, 0 Refills, Maintenance, 10/15/23 8:40:00 EDT, [facility], Partial fill upon patient request [...] 12/01/20 15:40:00 EDT, Route to Pharmacy Electronically, [facility], 163,cm, 11/22/20 12:47:00 EDT, Height [...] Team Personnel Name: Neto Cunningham MD Position: [facility] Renal MD Member Role: Lifetime Consulting Physician Address: Address: [address] [place] [address] [address] [place] [address]- [place] Name: Lore Clinton RN Position: [facility] RN Member Role: Primary Care Nurse Name: Bernie Aquino NP Position: [facility] PCO Associate Professional Member Role: PCP Address: Address: [address] [place] [address]- [place] Name: Gregg Hardy MD Position: [facility] Pulmonary MD Member Role: Lifetime Consulting Physician Address: Address: [address] [place] [address]- Care Team Related Persons Name: ONDINA SINGLETARY Address: home [address] [place] [address] Name: BLAIRE JACOB Address: home [address] [place] [address]
--- OUTSIDE RECORDS SUMMARY | 2024-01-11 13:43 | XMS_ITS | Continuity of Care Document ---
Author Organization [facility] Juventino David lt Address [address] [place] [address]- Care Team Providers Care Civil Engineer Name Role Phone Miles OTOOLE, Bernie Hardy Primary Care Physician [phone] Encounter [facility] Date(s): 10/30/23 - 11/29/23 [facility] Adult [address] [place] [address]- Allergies, Adverse Reactions, Alerts Substance Reaction Severity [...] (oldterm) 8 03/14/09 Given 1Result Comment: [09/19/2017] [id number] Comment: [02/13/2018] [id number] 3Result Comment: [02/08/2017] [facility] [id number] 317 02 4Result Comment: [01/24/2013] ORDERRED BY [...] EST, Route to Pharmacy Electronically, [facility], 163, cm, 03/07/23 8:42:00 EDT, [...] EDT, Route to Pharmacy Electronically, [facility], 163,cm, 11/22/20 12:47:00 EDT, Height [...] 0 Refills, Maintenance, 08/28/23 13:41:00 EDT, [facility], 163, cm, 08/22/23 8:24:00 EDT, [...] Personnel Name: Marisa CHAIDEZ, Neto Osorio Position: [facility] Renal MD Member Role: Lifetime Consulting Physician Address: Address: [address] [place] [address] [address] [place] [address]- [place] Name: Oz SHERWOOD, Lore Position: [facility] RN Member Role: Primary Care Nurse Name: Miles OTOOLE, Bernie Hardy Position: [facility] PCO Associate Professional Member Role: PCP Address: Address: [address] [place] [address]- [place] Name: Gregg Hardy MD Position: [facility] Pulmonary MD Member Role: Lifetime Consulting Physician Address: Address: [address] [place] [address]- Care Team Related Persons Name: ONDINA SINGLETARY Address: home [address] [place] [address] Name: BLAIRE JACOB Address: home [address] [place] [address]
--- OUTSIDE RECORDS SUMMARY | 2024-01-11 13:43 | XMS_ITS | Continuity of Care Document ---
Author Organization [facility] Juventino David Address [address] [place] [address]- Care Team Providers Care Sales And Marketing Intern Name Role Phone Miles OTOOLE, Bernie Hardy Primary Care Physician [phone] Encounter [facility] Date(s): 08/13/23 - 09/12/23 [facility] Adult [address] [place] [address]- Allergies, Adverse Reactions, Alerts Substance Reaction Severity Status azithromycin 1 increases sx's Active morphine vomiting Active Flonase rhinitis Active Augmentin 2 increases sx Active Reglan double vision Active Adhesive Bandage rash Active Cats sneezing Active NSAIDs Active Demerol HCl vomiting Active 1Diarrhea 2makes sicker Immunizations Given and [...] (oldterm) 8 03/14/09 Given 1Result Comment: [09/19/2017] [id number] 2Result Comment: [02/13/2018] [id number] 3Result Comment: [02/08/2017] [facility] [id number] 317 02 4Result Comment: [01/24/2013] ORDERRED BY [...] EST, Route to Pharmacy Electronically, [facility], 163, cm, 03/07/23 8:42:00 EDT, [...] 12/01/20 15:40:00 EDT, Route to Pharmacy Electronically, [facility], 163,cm, 11/22/20 12:47:00 EDT, Height [...] tablet, Refills 5, Maintenance, 03/27/23 23:12:00 EST, [facility], [facility] [...] Member Role: Lifetime Consulting Physician Address: Address: [address] [place] [address] [address] [place] [address]- Name: Oz SHERWOOD, Lore Position: [facility] RN Member Role: Primary Care Nurse Name: Miles OTOOLE, Bernie Hardy Position: [facility] PCO Associate Professional Member Role: PCP Address: Address: [address] [place] [address]- Name: Gregg Hardy MD Position: [facility] Pulmonary MD Member Role: Lifetime Consulting Physician Address: Address: [address] [place] [address]- Care Team Related Persons Name: ONDINA SINGLETARY Address: home [address] [place] [address] Name: BLAIRE JACOB Address: home [address] [place] [address]
--- OUTSIDE RECORDS SUMMARY | 2024-01-11 13:43 | XMS_ITS | Continuity of Care Document ---
Author Organization [facility] Juventino David Address [address] [place] [address]- Care Team Providers Care Buffing Turner And Counter Name Role Phone Gina Bhat MD Primary Care Physician [phone] [facility] [place] Date(s): 05/11/21 - 05/18/21 [facility] Adult [address] [place] [address]- Encounter Diagnosis Migraine(Discharge Diagnosis) - 05/11/21 Attending Physician: Gina Bhat MD Allergies, Adverse [...] (oldterm) 8 03/14/09 Given 1Result Comment: [02/13/2018] [id number] 2Result Comment: [02/08/2017] [facility] [id number] 317 02 3Result Comment: [01/24/2013] ORDERRED BY GINA BHAT MD 4Result Comment: [09/19/2017] [id number] 5Admin Note: vis given 6Admin Note: BIOMEDICAL [...] EDT, Route to Pharmacy Electronically, [facility], 163,cm, 11/22/20 12:47:00 EDT, Height Start Date: 12/01/20 Status: Ordered EpiPen 2-Juvenal = 0.3 mg, Intramuscular, Once, 0 Refills, Maintenance Start Date: 01/31/11 Status: Ordered Fioricet oral capsule 1 capsule, By Mouth, Once, PRN as needed, repeat in 2 hours if headache is still present, # 30 capsule, 0 Refills, Soft Stop, 05/13/20 10:25:00 EST, Capsule, [facility], 1 capsule By Mouth Once,PRN:as needed,Instr:repeat in 2 hours if he... Start Date: 05/13/20 Status: Ordered fluconazole 150 mg oral tablet 1 tablet = 150 mg, By Mouth, Once, epeat dose if still having symptoms in 72 hours, # 2 tablet, 0 Refills, Soft Stop, 11/01/20 15:04:00 EDT, Tablet, [facility], Partial fill upon patient request [...] Weight Start Date: 03/16/21 Status: Ordered Pen [place], 31 G x 5 mm BD Ultra Fine III See Instructions, # 150 each, Refills 6, Tot. Refills 6, Maintenance, for use 4x daily with Lantus and humalog insulin E11.65, 06/24/18 10:09:38 EST, Compound Start Date: 06/24/18 Status: Ordered Pen [place], 31 G x 5 mm BD Ultra [...] Clini kamron Service Informant Migraine Discharge Diagnosis 05/11/21 Vital Signs Most recent to oldest [Reference Range]: 1 Height 163 cm (05/11/21 9:45 AM) Social History Social History Type Response Smoking Status Never smoker entered on: 01/21/18 Sex
--- OUTSIDE RECORDS SUMMARY | 2024-01-11 13:43 | XMS_ITS | Continuity of Care Document ---
Author Organization [facility] David lt Address [address] [place] [address]- Care Team Providers Care Monitoring Engineer Name Role Phone Miles OTOOLE, Bernie Hardy Primary Care Physician Encounter [facility] Date(s): 06/13/21 - 07/13/21 [facility] Adult [address] [place] [address]- Allergies, Adverse Reactions, Alerts Substance Reaction Severity [...] (oldterm) 8 03/14/09 Given 1Result Comment: [02/13/2018] [id number] 2Result Comment: [02/08/2017] [facility] [id number] 317 02 3Result Comment: [01/24/2013] ORDERRED BY GINA GAINES MD 4Result Comment: [09/19/2017] [id number] 5Admin Note: vis given 6Admin Note: BIOMEDICAL [...] Dry Weight Start Date: 05/10/21 Status: Ordered cyclobenzaprine 10 mg oral tablet [...] 11:52:00EDT, Route to Pharmacy Electronically, [facility], 163, cm, 09/23/20 9:42:00 EDT,Height [...] # 120 tablet, 5 Refills, [facility], 163, cm, 04/06/21 8:42:00 EST, [...] Dry Weight Start Date: 02/10/21 Status: Ordered omeprazole 40 mg oral enteric coated capsule 1 capsule = 40 mg, By Mouth, 2 times a day, # 60 capsule, 0 Refills, Maintenance, 07/13/21 12:11:00EST, [facility], Partial fill upon patient request if the prescription is for a schedule II opioid drug., 163, cm, 07/13/21 11:43:00 EST,... Start Date: 07/13/21 Status: Ordered ondansetron 8 mg oral tablet [...] Dry Weight Start Date: 07/04/21 Status: Ordered Trileptal 300 mg oral tablet [...]
--- OUTSIDE RECORDS SUMMARY | 2024-01-11 13:43 | XMS_ITS | Continuity of Care Document ---
Author Organization [facility] Gregory David Address [address] [place] [address]- Care Team Providers Care Assistant Teacher Primary Name Role Phone Miles OTOOLE, Bernie Hardy Primary Care Physician [phone] Encounter [facility] [place] Date(s): 08/29/21 - 09/05/21 [facility] Adult [address] [place] [address]- Encounter Diagnosis Upper respiratory infection(Discharge Diagnosis) - 08/29/21 Attending Physician: Umu King Allergies, Adverse Reactions, Alerts Substance Reaction Severity Status azithromycin 1 Active morphine vomiting Active Flonase Active Cats Active Augmentin 2 Active Reglan double vision Active Demerol HCl vomiting Active Adhesive Bandage Active 1Diarrhea 2makes sicker Immunizations Given and [...] (oldterm) 8 03/14/09 Given 1Result Comment: [02/13/2018] [id number] 2Result Comment: [02/08/2017] [facility] [id number] 317 02 3Result Comment: [01/24/2013] ORDERRED BY GINA GAINES MD 4Result Comment: [09/19/2017] [id number] 5Admin Note: vis given 6Admin Note: BIOMEDICAL [...] Dry Weight Start Date: 04/10/21 Status: Ordered moxifloxacin 400 mg oral tablet 1 tablet = 400 mg, By Mouth, Daily, for 10 days, # 10 tablet, 0 Refills, Acute 09/08/21 11:27:00 EDT, 08/29/21 11:27:00 EDT, Tablet, [facility], Partial fill upon patient request ifthe prescription is for a schedule II opioid drug., 163... Start Date: 08/29/21 Stop Date: 09/08/21 Status: Ordered Multivitamin Daily, 0 Refills, Maintenance, [...] 02/23/21 16:10:00 EDT, Route to Pharmacy Electronically, [facility], Rx resent from 07/26/20, 163, cm, 02/21/21 15:42:00 EDT, Height, 81, kg, 09... Start Date: 02/23/21 Status: Ordered topiramate 50 mg oral tablet See Instructions, TAKE 1 TABLET IN THE MORNING AND 3 TABLETS AT BEDTIME., # 120 tablet, 5 Refills, [facility], 163, cm, 06/13/21 9:32:00 EST, [...] 5 Refills, Maintenance, 08/08/21 15:48:00 EDT, Solution, [facility], Partial fill upon patient request [...] Effective Dates Health Status Clinical Service Informant Upper respiratory infection Discharge Diagnosis 08/29/21 Vital Signs Most recent to oldest [Reference Range]: 1 Height 163 cm (08/29/21 11:01 AM) Weight 78.2 kg (08/29/21 11:01 AM) Body Mass Index [18.5-24.99] 29.43 *H* (08/29/21 11:01 AM) Weight Obtained Via Standing scale (08/29/21 11:01 AM) Social History Social History Type Response Smoking Status Never smoker entered on: 05/12/13 Sex
--- OUTSIDE RECORDS SUMMARY | 2024-01-11 13:43 | XMS_ITS | Continuity of Care Document ---
Author Organization [facility] Address [address] [place] [address]- Care Team Providers Care Game Protector Name Role Phone Miles OTOOLE, Bernie Hardy Primary Care Physician [phone] [place] [facility] [place](s): 09/11/22 - 10/11/22 [facility] [address] [place] [address] Allergies, Adverse Reactions, Alerts Substance Reaction [...] (oldterm) 8 03/14/09 Given 1Result Comment: [09/19/2017] [id number] 2Result Comment: [02/13/2018] [id number] 3Result Comment: [02/08/2017] [facility] [id number] 317 02 4Result Comment: [01/24/2013] ORDERRED BY [...] 05/25/22 6:49:00 EST, Route to Pharmacy Electronically, [facility], 163, cm, 04/04/22 7:05:00 EST, [...] 12/01/20 15:40:00 EDT, Route to Pharmacy Electronically, [facility], 163,cm, 11/22/20 12:47:00 EDT, Height [...] tablet, Refills 5, Maintenance, 10/01/22 10:34:00 [facility] [...] Personnel Name: Marisa CHAIDEZ, Neto Osorio Position: [facility] Renal MD Member Role: Lifetime Consulting Physician Address: Address: [address] [place] [address], [address] [place] [address]- [place] Name: Lore Clinton RN Position: [facility] RN Member Role: Primary Care Nurse Name: Bernie Aquino NP Position: [facility] PCO Associate Professional Member Role: PCP Address: Address: [address] [place] [address]- [place] Name: Gregg Hardy MD Position: [facility] Pulmonary MD Member Role: Lifetime Consulting Physician Address: Address: [address] [place] [address]- Care Team Related Persons Name: MERRITT SINGLETARY Address: home [address] [place] [address] Name: BLAIRE JACOB Address: home [address] [place] [address]
--- OUTSIDE RECORDS SUMMARY | 2024-01-11 13:43 | XMS_ITS | Continuity of Care Document ---
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(Discharge Diagnosis) - 12/07/21 Hyperparathyroidism - lithum induced(Discharge Diagnosis) - 12/07/21 Type 2 diabetes mellitus(Discharge Diagnosis) - 12/07/21 Bipolar disorder(Discharge Diagnosis) - 12/07/21 Attending Physician: Miles OTOOLE, Bernie Hardy Referring Physician: Ondina CHAIDEZ, Jonathan Flores Allergies, [...] (oldterm) 8 03/14/09 Given 1Result Comment: [02/13/2018] [id number] 2Result Comment: [02/08/2017] [facility] [id number] 317 02 3Result Comment: [01/24/2013] ORDERRED BY GINA GAINES MD 4Result Comment: [09/19/2017] [id number] 5Admin Note: vis given 6Admin Note: BIOMEDICAL [...] 11, Route to Pharmacy Electronically, [facility], 163, cm, 04/15/21 11:42:00 EST, [...] Stop, 11/01/20 15:04:00 EDT, Tablet, [facility], Partial fill upon patient request [...] tablet, Refills 11, Route to Pharmacy Electronically, [facility], 163, cm, 09/07/21 9:26:00 EDT, Height, 81, kg, 01/28/21 22:15:00 EDT, Dry Weight Start Date: 11/15/21 Status: Ordered lithium 300 mg oral tablet 2 tablet = 600 mg, By Mouth, 2 times a day, # 30 tablet, 0 Refills, Maintenance, 11/17/13 13:36:11 EDT, Tablet Start Date: 11/17/13 Status: Ordered Multivitamin Daily, 0 Refills, Maintenance, [...] Effective Dates Health Status Clinical Service Informant Nephrocalcinosis - right kidney, 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 Discharge Diagnosis 12/07/21 Hyperparathyroidism - lithum induced Discharge Diagnosis 12/07/21 Type 2 diabetes mellitus Discharge Diagnosis 12/07/21 Bipolar disorder Discharge Diagnosis 12/07/21 Vital Signs Most recent to oldest [Reference Range]: 1 Height 163 cm (12/05/21 1:47 PM) Weight 78.1 kg (12/05/21 1:47 PM) Oxygen Saturation [94-100 %] 98 % (12/05/21 1:47 PM) Pulse Rate [55-90 bpm] 68 bpm (12/05/21 1:47 PM) Body Mass Index [18.5-24.99] 29.4 *H* (12/05/21 1:47 PM) Blood Pressure [90-138/55-84 mm Hg] 101/ 68mm Hg (12/05/21 1:47 PM) Temperature [96.8-100.4 DegF] 98.8 DegF (12/05/21 1:47 PM) Blood pressure sites Arm, left (12/05/21 1:47 PM) Temperature Route Temporal (12/05/21 1:47 PM) Weight Obtained Via Standing scale (12/05/21 1:47 PM) Social History Social History Type Response Smoking Status Never smoker entered on: 05/12/13 Sex
--- OUTSIDE RECORDS SUMMARY | 2024-01-11 13:44 | XMS_ITS | Continuity of Care Document ---
Author Organization [facility] David lt Address [address] [place] [address]- Care Team Providers Care Professor Of Anthropology Name Role Phone Miles OTOOLE, Bernie Hardy Primary Care Physician [place] [facility] [place] 08/29/21 - 09/28/21 [facility] Adult [address] [place] [address]- Allergies, Adverse Reactions, Alerts Substance Reaction Severity [...] (oldterm) 8 03/14/09 Given 1Result Comment: [02/13/2018] [id number] 2Result Comment: [02/08/2017] [facility] [id number] 317 02 3Result Comment: [01/24/2013] ORDERRED BY GINA GAINES MD 4Result Comment: [09/19/2017] [id number] 5Admin Note: vis given 6Admin Note: BIOMEDICAL [...] EDT, Route to Pharmacy Electronically, [facility], Rx resent from 07/26/20, 163, [...]
--- OUTSIDE RECORDS SUMMARY | 2024-01-11 13:44 | XMS_ITS | Continuity of Care Document ---
Author Organization [facility] Juventino David lt Address [address] [place] [address]- Care Team Providers Care Electronic Warfare Operator Name Role Phone Gina Bhat MD Primary Care Physician [place] [facility] Date(s): 05/13/20 - 05/20/20 [facility] Adult [address] [place] [address]- Encounter Diagnosis FMF (familial Mediterranean fever)(Discharge Diagnosis) - 05/13/20 Type 2 diabetes mellitus(Discharge Diagnosis) - 05/13/20 Attending Physician: Gina Bhat MD Allergies, Adverse Reactions, Alerts Substance Reaction Severity Status morphine vomiting Active Flonase Active Reglan double vision Active Demerol HCl vomiting Active Adhesive Bandage Active Other Food Allergy 1 Active Cats Active 1lemons Immunizations Given and [...] (oldterm) 8 03/14/09 Given 1Result Comment: [02/13/2018] [id number] 2Result Comment: [02/08/2017] [facility] [id number] 317 02 3Result Comment: [01/24/2013] ORDERRED BY GINA BHAT MD 4Result Comment: [09/19/2017] [id number] 5Admin Note: vis given 6Admin Note: BIOMEDICAL [...] EDT, Route to Pharmacy Electronically, [facility], 163, cm, 07/11/19 11:24:00 EST, [...] Maintenance, 07/20/19 23:41:00 EDT, Tablet, [facility], 163, cm, 07/11/19 11:24:00 EST, Height, 82.6, kg, 05/24/18 7:14:00EST, Dry Weight Start Date: 07/20/19 Status: Ordered lisinopril 2.5 mg oral tablet 2.5 mg, 1, tablet, By Mouth, Daily, # 30 tablet, Refills 11, Tot. Refills 11, Maintenance, 10/02/2013:10:00 EDT, Route to Pharmacy Electronically, [facility], 163, cm, 10/01/19 13:40:00 EDT, [...] tablet, 5 Refills, Maintenance, 04/05/20 11:00:00 EST, [facility], 163, cm, 01/16/20 10:48:00 EDT, [...] Requisition Start Date: 05/19/16 Status: Ordered Pen [place], 31 G x 5 mm BD Ultra Fine III See Instructions, # 150 each, Refills 6, Tot. Refills 6, Maintenance, for use 4x daily with Lantus and humalog insulin E11.65, 06/24/18 10:09:38 EST, Compound Start Date: 06/24/18 Status: Ordered Pen [place], 31 G x 5 mm BD Ultra [...] EST, Route to Pharmacy Electronically, [facility], 163, cm, 01/16/20 10:48:00 EDT, [...] Maintenance, 05/13/20 10:22:00 EST, Solution, [facility], Partial fill upon patient request [...] tablet, 1 Refills, Maintenance, 05/02/20 21:20:00 EST, [facility], 163, cm, 01/16/20 10:48:00 EDT, [...] Effective Dates Health Status Clinical Service Informant FMF (familial Mediterranean fever) Discharge Diagnosis 05/13/20 Type 2 diabetes mellitus Discharge Diagnosis 05/13/20 Vital Signs Most recent to oldest [Reference Range]: 1 Height 163 cm (05/13/20 9:12 AM) Weight 85.0 kg (05/13/20 9:12 AM) Body Mass Index [18.5-24.99] 31.99 *>HHI* (05/13/20 9:12 AM) Social History Social History Type Response Smoking Status Never smoker entered on: 01/21/18 Sex
--- OUTSIDE RECORDS SUMMARY | 2024-01-11 13:44 | XMS_ITS | Continuity of Care Document ---
Author Organization [facility] Juventino David lt Address [address] [place] [address]- Care Team Providers Care Process Description Writer Name Role Phone Miles OTOOLE, Bernie Hardy Primary Care Physician [phone] Encounter [facility] Date(s): 05/27/21 - 06/26/21 [facility] Adult [address] [place] [address]- Allergies, Adverse Reactions, Alerts Substance Reaction Severity [...] (oldterm) 8 03/14/09 Given 1Result Comment: [02/13/2018] [id number] 2Result Comment: [02/08/2017] [facility] [id number] 317 02 3Result Comment: [01/24/2013] ORDERRED BY GINA GAINES MD 4Result Comment: [09/19/2017] [id number] 5Admin Note: vis given 6Admin Note: BIOMEDICAL [...] AND VOMITING, # 30 tablet, 0 Refills, [facility], 163, cm, 06/07/21 14:40:00 EST, [...] 02/23/21 16:10:00 EDT, Route to Pharmacy Electronically, [facility], Rx resent from 07/26/20, 163, cm, 02/21/21 15:42:00 EDT, Height, 81, kg, 09... Start Date: 02/23/21 Status: Ordered topiramate 50 mg oral tablet See Instructions, 1 tablet in morning, 4 tablets at bedtime, # 120 tablet, 5 Refills, Maintenance, 01/21/21 15:35:00 EDT, [facility], 163, cm, 11/22/20 12:47:00 EDT, [...]
--- OUTSIDE RECORDS SUMMARY | 2024-01-11 13:44 | XMS_ITS | Continuity of Care Document ---
Author Organization [facility] Juventino David lt Address [address] [place] [address]- Care Team Providers Care Shoe Trimmer Name Role Phone Miles OTOOLE, Bernie Hardy Primary Care Physician [place] [facility] [place]/22/23 - 06/21/23 [facility] Adult [address] [place] [address]- Allergies, Adverse Reactions, Alerts Substance Reaction Severity [...] (oldterm) 8 03/14/09 Given 1Result Comment: [09/19/2017] [id number] 2Result Comment: [02/13/2018] [id number] 3Result Comment: [02/08/2017] [facility] [id number] 317 02 4Result Comment: [01/24/2013] ORDERRED BY [...] Refills, Maintenance, 02/25/23 21:51:00 EDT, [facility], 163, cm, 11/13/22 8:37:00 EDT, [...] EST, Route to Pharmacy Electronically, [facility], 163, cm, 03/07/23 8:42:00 EDT, [...] tablet, Refills 5, Maintenance, 03/27/23 23:12:00 EST[facility] [...] Personnel Name: Marisa CHAIDEZ, Neto Osorio Position: [facility] Renal MD Member Role: Lifetime Consulting Physician Address: Address: [address] [place] [address] [address] [place] [address]- [place] Name: Lore Clinton RN Position: [facility] RN Member Role: Primary Care Nurse Name: Miles OTOOLE, Bernie Hardy Position: [facility] PCO Associate Professional Member Role: PCP Address: Address: [address] [place] [address]- [place] Name: Gregg Hardy MD Position: [facility] Pulmonary MD Member Role: Lifetime Consulting Physician Address: Address: [address] [place] [address]- Care Team Related Persons Name: ONDINA SINGLETARY Address: home [address] [place] [address] Name: BLAIRE JACOB Address: home [address] [place] [address]
--- OUTSIDE RECORDS SUMMARY | 2024-01-11 13:44 | XMS_ITS | Continuity of Care Document ---
Author Organization [facility] Juventino David Address [address] [place] [address]- Care Team Providers Care Art Instructor Name Role Phone Miles OTOOLE, Bernie Hardy Primary Care Physician [place] [facility] Date(s): 06/06/22 - 06/13/22 [facility] [place] Adult [address] [place] [address]- Encounter Diagnosis Bipolar disorder(Discharge Diagnosis) - 06/06/22 Congenital Hypogammaglobulinemia(Discharge Diagnosis) - 06/06/22 FMF (familial Mediterranean fever)(Discharge Diagnosis) - 06/06/22 Nephrogenic diabetes insipidus(Discharge Diagnosis) - 06/06/22 Asthma - severe(Discharge Diagnosis) - 06/06/22 Type 2 diabetes mellitus(Discharge Diagnosis) - 06/06/22 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 Migraine(Discharge Diagnosis) - 06/06/22 Attending Physician: Bernie Aquino NP Referring Physician: Jonathan Nj MD Allergies, Adverse Reactions, Alerts Substance Reaction [...] Give n influenza virus vaccine, inactivated 3 9/13/13 Gi tyree tetanus/diphtheria/pertussis, acel(Tdap) 4 09/19/17 Given tetanus/diphtheria/pertussis, acel(Tdap) 12/08/07 Given tetanus/diphtheria/pertussis, acel(Tdap) 12/08/07 Given pneumococcal 13-valent vaccine 05/13/14 Given FluLaval (oldterm) 5 01/05/12 Given FluLaval (oldterm) 6 02/16/10 Given Fluvirin (oldterm) 01/23/11 Given pneumococcal 23-valent vaccine 12/19/09 Given influ virus vac, H1N1, inactive(oldterm) 7 05/04/09 Given Influenza Virus Vaccine (oldterm) 8 03/14/09 Given 1Result Comment: [02/13/2018] [id number] 2Result Comment: [02/08/2017] [facility] [id number] 317 02 3Result Comment: [01/24/2013] ORDERRED BY GINA GAINES MD 4Result Comment: [09/19/2017] [id number] 5Admin Note: vis given 6Admin Note: BIOMEDICAL [...] Refills, Maintenance, 01/02/22 19:09:00 EDT, [facility], 163, cm, 12/26/21 15:28:00 EDT, [...] 05/25/22 6:49:00 EST, Route to Pharmacy Electronically, [facility], 163, cm, 04/04/22 7:05:00 EST, [...] # 30 tablet, 0 Refills, [facility], 163, cm, 06/07/21 14:40:00 EST, [...] # 120 tablet, 5 Refills, [facility], 163, cm, 06/13/21 9:32:00 EST, [...] Effective Dates Health Status Clinical Service Informant Bipolar disorder Discharge Diagnosis 06/06/22 Congenital Hypogammaglobulinemia Discharge Diagnosis 06/06/22 FMF (familial Mediterranean fever) Discharge Diagnosis 06/06/22 Nephrogenic diabetes insipidus Discharge Diagnosis 06/06/22 Asthma - severe Discharge Diagnosis 06/06/22 Type 2 diabetes mellitus Discharge Diagnosis 06/06/22 Hyper-IgE syndrome Discharge Diagnosis 06/06/22 Migraine Discharge Diagnosis 06/06/22 Vital Signs Most recent to oldest [Reference Range]: 1 Height 163 cm (06/06/22 7:25 AM) Weight 81 kg (06/06/22 7:25 AM) Oxygen Saturation [94-100 %] 97 % (06/06/22 7:25 AM) Pulse Rate [55-90 bpm] 87 bpm (06/06/22 7:25 AM) Body Mass Index [18.5-24.99 kg/m2] 30.49 kg/m2 *>HHI* (06/06/22 7:25 AM) Blood Pressure [90-138/55-84 mm Hg] 101/ 71mm Hg (06/06/22 7:25 AM) Blood pressure sites Arm, left (06/06/22 7:25 AM) Weight Obtained Via Standing scale (06/06/22 7:25 AM) Social History Social History Type Response Smoking Status Never smoker entered on: 05/12/13 Sex Patient Care team information Care Team Personnel Name: Marisa CHAIDEZ, Neto Osorio Position: [facility] Renal MD Member Role: Lifetime Consulting Physician Address: Address: [address] [place] [address], [facility] [address] [place] [address]- Name: Oz SHERWOOD, Lore Position: [facility] RN Member Role: Primary Care Nurse Name: Miles OTOOLE, Bernie Hardy Position: [facility] PCO Associate Professional Member Role: PCP Address: Address: [address] [place] [address]- [place] Name: Gregg Hardy MD Position: [facility] Pulmonary MD Member Role: Lifetime Consulting Physician Address: Address: [address] [place] [address]- Care Team Related Persons Name: MERRITT SINGLETARY Address: home [address] [place] [address] Name: BLAIRE JACOB Address: home [address] [place] [address]
--- OUTSIDE RECORDS SUMMARY | 2024-01-11 13:44 | XMS_ITS | Continuity of Care Document ---
Author Organization [facility] Juventino David Address [address] [place] [address]- Care Team Providers Care Grain Farmworker Name Role Phone Perlita CHAIDEZ, Gina Smith Primary Care Physician [phone] [facility] 01/11/21 - 02/10/21 [facility] Adult [address] [place] [address]- Allergies, Adverse Reactions, Alerts Substance Reaction Severity [...] (oldterm) 8 03/14/09 Given 1Result Comment: [02/13/2018] [id number] 2Result Comment: [02/08/2017] [facility] [id number] 317 02 3Result Comment: [01/24/2013] ORDERRED BY GINA GAINES MD 4Result Comment: [09/19/2017] [id number] 5Admin Note: vis given 6Admin Note: BIOMEDICAL [...] 12/01/20 15:40:00 EDT, Route to Pharmacy Electronically, [facility], 163,cm, 11/22/20 12:47:00 EDT, Height [...] Refills, Soft Stop, 11/01/20 15:04:00 EDT, Tablet, [facility], Partial fill upon patient request [...] Maintenance, 10/26/20 11:52:00EDT, Route to Pharmacy Electronically, [facility], 163, cm, 09/23/20 9:42:00 EDT,Height [...] Refills, Maintenance, 02/10/21 15:07:00 EDT, [facility], 163, cm, 02/10/21 14:31:00 EDT, [...] Weight Start Date: 10/01/19 Status: Ordered Pen [place], 31 G x 5 mm BD Ultra Fine III See Instructions, # 150 each, Refills 6, Tot. Refills 6, Maintenance, for use 4x daily with Lantus and humalog insulin E11.65, 06/24/18 10:09:38 EST, Compound Start Date: 06/24/18 Status: Ordered Pen [place], 31 G x 5 mm BD Ultra [...] 07/26/20 10:28:00 EDT, Route to Pharmacy Electronically, [facility], 163, cm, 07/26/20 8:40:00 EDT, Height Start Date: 07/26/20 Status: Ordered SUMAtriptan 100 mg oral tablet 1 tablet, By Mouth, Daily, PRN NEEDED FOR MIGRAINE, MAY REPEAT DOSE IN 2 HOURS IF NEEDED, # 9 tablet, 11 Refills, Soft Stop, 05/10/20 14:37:00 EST, [facility], 163, cm, 01/16/20 10:48:00 EDT, Height, 82.6, kg, 05/24/18 7:14:00 ESTDr... Start Date: 05/10/20 Status: Ordered topiramate 50 mg oral tablet See Instructions, 1 tablet in morning, 3 tablets at bedtime, # 120 tablet, 5 Refills, Maintenance, 01/21/21 15:35:00 EDT, [facility], 163, cm, 11/22/20 12:47:00 EDT, [...]
--- OUTSIDE RECORDS SUMMARY | 2024-01-11 13:44 | XMS_ITS | Continuity of Care Document ---
Author Organization [facility] Juventino David Address [address] [place] [address]- Care Team Providers Care Digital Community Manager Name Role Phone Perlita CHAIDEZ, Gina Smith Primary Care Physician [facility] Date[facility]s): 01/04/21 - 02/03/21 [facility] Adult [address] [place] [address]- Allergies, Adverse Reactions, Alerts Substance Reaction Severity [...] (oldterm) 8 03/14/09 Given 1Result Comment: [02/13/2018] [id number] 2Result Comment: [02/08/2017] [facility] [id number] 317 02 3Result Comment: [01/24/2013] ORDERRED BY GINA GAINES MD 4Result Comment: [09/19/2017] [id number] 5Admin Note: vis given 6Admin Note: BIOMEDICAL [...] 05/18/20 17:15:00 EST, Route to Pharmacy Electronically, [facility], D/C RX ON FILE FOR [...] Refills, Soft Stop, 05/13/20 10:25:00 EST, Capsule, [facility], 1 capsule By Mouth Once,PRN:as needed,Instr:repeat in 2 hours if he... Start Date: 05/13/20 Status: Ordered fluconazole 150 mg oral tablet 1 tablet = 150 mg, By Mouth, Once, epeat dose if still having symptoms in 72 hours, # 2 tablet, 0 Refills, Soft Stop, 11/01/20 15:04:00 EDT, Tablet, [facility], Partial fill upon patient request [...] Maintenance, 10/26/20 11:52:00EDT, Route to Pharmacy Electronically, [facility], 163, cm, 09/23/20 9:42:00 EDT,Height [...] Weight Start Date: 10/01/19 Status: Ordered Pen [place], 31 G x 5 mm BD Ultra Fine III See Instructions, # 150 each, Refills 6, Tot. Refills 6, Maintenance, for use 4x daily with Lantus and humalog insulin E11.65, 06/24/18 10:09:38 EST, Compound Start Date: 06/24/18 Status: Ordered Pen [place], 31 G x 5 mm BD Ultra [...] 07/26/20 10:28:00 EDT, Route to Pharmacy Electronically, [facility], 163, cm, 07/26/20 8:40:00 EDT, Height Start Date: 07/26/20 Status: Ordered SUMAtriptan 100 mg oral tablet 1 tablet, By Mouth, Daily, PRN NEEDED FOR MIGRAINE, MAY REPEAT DOSE IN 2 HOURS IF NEEDED, # 9 tablet, 11 Refills, Soft Stop, 05/10/20 14:37:00 EST, [facility], 163, cm, 01/16/20 10:48:00 EDT, Height, 82.6, kg, 05/24/18 7:14:00 EST, . Start Date: 05/10/20 Status: Ordered topiramate 50 mg oral tablet See Instructions, 1 tablet in morning, 3 tablets at bedtime, # 120 tablet, 5 Refills, Maintenance, 01/21/21 15:35:00 EDT, [facility], 163, cm, 11/22/20 12:47:00 EDT, [...]
--- OUTSIDE RECORDS SUMMARY | 2024-01-11 13:44 | XMS_ITS | Continuity of Care Document ---
Author Organization [facility] Juventino David lt Address [address] [place] [address]- Care Team Providers Care Senior Research Executive Name Role Phone Miles OTOOLE, Bernie Hardy Primary Care Physician [facility]): 11/07/21 - 12/07/21 [facility] Adult [address] [place] [address]- Allergies, Adverse Reactions, Alerts Substance Reaction Severity [...] (oldterm) 8 03/14/09 Given 1Result Comment: [02/13/2018] [id number] 2Result Comment: [02/08/2017] [facility] [id number] 317 02 3Result Comment: [01/24/2013] ORDERRED BY GINA GAINES MD 4Result Comment: [09/19/2017] [id number] 5Admin Note: vis given 6Admin Note: BIOMEDICAL [...] 06/07/21 15:10:00 EST, CR Capsule, [facility], Partial fill upon patientrequest if [...] 02/23/21 16:10:00 EDT, Route to Pharmacy Electronically, [facility], Rx resent from 07/26/20, 163, [...]
--- OUTSIDE RECORDS SUMMARY | 2024-01-11 13:44 | XMS_ITS | Continuity of Care Document ---
Author Organization [facility] Address [address] [place] [address]- Care Team Providers Care Manager Location Name Role Phone Miles OTOOLE, Bernie Hardy Primary Care Physician [phone] [facility] 12/20/21 - 01/26/22 [facility] [address] [place], [place] [address] Attending Physician: Gina Bhat MD Admitting [...] (oldterm) 8 03/14/09 Given 1Result Comment: [02/13/2018] [id number] 2Result Comment: [02/08/2017] [facility] [id number] 317 02 3Result Comment: [01/24/2013] ORDERRED BY GINA BHAT MD 4Result Comment: [09/19/2017] [id number] 5Admin Note: vis given 6Admin Note: BIOMEDICAL [...] 12/01/20 15:40:00 EDT, Route to Pharmacy Electronically, [email or web address], 163,cm, 11/22/20 12:47:00 EDT, Height Start Date: 12/01/20 Status: Ordered EpiPen 2-Juvenal = 0.3 mg, Intramuscular, Once, 0 Refills, Maintenance Start Date: 01/31/11 Status: Ordered Fioricet oral capsule 1 capsule, By Mouth, Once, PRN as needed, repeat in 2 hours if headache is still present, # 30 capsule, 0 Refills, Soft Stop, 05/13/20 10:25:00 EST, Capsule, [email or web address], 1 capsule By Mouth Once,PRN:as needed,Instr:repeat in 2 hours if he... Start Date: 05/13/20 Status: Ordered fluconazole 150 mg oral tablet 1 tablet = 150 mg, By Mouth, Once, epeat dose if still having symptoms in 72 hours, # 2 tablet, 0 Refills, Soft Stop, 11/01/20 15:04:00 EDT, Tablet, [email or web address], Partial fill upon patient request [...] a schedule II opioid drug., barber Barajas, 08/29/21 11:01:00 EDT,... Start Date: 09/02/21 Status: [...] Personnel Name: Bernie Aquino NP Address: [address] [facility] [place] [address]-
--- OUTSIDE RECORDS SUMMARY | 2024-01-11 13:44 | XMS_ITS | Continuity of Care Document ---
Author Organization [facility] Juventino David lt Address [address] [place] [address]- Care Team Providers Care Museum Docent Name Role Phone Miles OTOOLE, Bernie Hardy Primary Care Physician [phone] Encounter [facility] Date(s): 07/09/23 - 08/08/23 [facility] Adult [address] [place] [address]- Allergies, Adverse Reactions, Alerts Substance Reaction Severity [...] (oldterm) 8 03/14/09 Given 1Result Comment: [09/19/2017] [id number] 2Result Comment: [02/13/2018] [id number] 3Result Comment: [02/08/2017] [facility] [id number] 317 02 4Result Comment: [01/24/2013] ORDERRED BY [...] EST, Route to Pharmacy Electronically, [facility], 163, cm, 03/07/23 8:42:00 EDT, [...] # 2 tablet, 0 Refills, Soft Stop, 07/31/23 9:41:00 EDT, [facility], Partial fill upon patient request if the prescription is for aschedule II opioid drug., 163, cm, 06/06/23 7:29:00 EST... Start Date: 07/31/23 Status: Ordered Diflucan 150 mg oral tablet [...] tablet, Refills 5, Maintenance, 03/27/23 23:12:00 EST, [facility], [facility] [...] Personnel Name: Marisa CHAIDEZ, Neto Osorio Position: [facility] Renal MD Member Role: Lifetime Consulting Physician Address: Address: [address] [place] [address] [address] [place] [address]- [place] Name: Lore Clinton RN Position: [facility] RN Member Role: Primary Care Nurse Name: Miles OTOOLE, Bernie Hardy Position: [facility] PCO Associate Professional Member Role: PCP Address: Address: [address] [place] [address]- [place] Name: Gregg Hardy MD Position: [facility] Pulmonary MD Member Role: Lifetime Consulting Physician Address: Address: [address] [place] [address]- [place] Care Team Related Persons Name: ONDINA SINGLETARY Address: home [address] [place] [address] Name: BLAIRE JACOB Address: home [address] [place] [address]
--- OUTSIDE RECORDS SUMMARY | 2024-01-11 13:44 | XMS_ITS | Continuity of Care Document ---
Author Organization [facility] David lt Address [address] [place] [address]- Care Team Providers Care Housekeeping/Laundry Name Role Phone Miles OTOOLE, Bernie Hardy Primary Care Physician Encounter [facility] Date(s): 06/15/22 - 07/15/22 [facility] Adult [address] [place] [address]- Allergies, Adverse Reactions, Alerts Substance Reaction Severity [...] (oldterm) 8 03/14/09 Given 1Result Comment: [09/19/2017] [id number] 2Result Comment: [02/13/2018] [id number] 3Result Comment: [02/08/2017] [facility] [id number] 317 02 4Result Comment: [01/24/2013] ORDERRED BY [...] 05/25/22 6:49:00 EST, Route to Pharmacy Electronically, [facility], 163, cm, 04/04/22 7:05:00 EST, [...] 12/01/20 15:40:00 EDT, Route to Pharmacy Electronically, [facility], 163,cm, 11/22/20 12:47:00 [...] Personnel Name: Marisa CHAIDEZ, Neto Osorio Position: [facility] Renal MD Member Role: Lifetime Consulting Physician Address: Address: [address] [place] [address], [address] [place] [address]- [place] Name: Lore Clinton RN Position: [facility] RN Member Role: Primary Care Nurse Name: Miles OTOOLE, Bernie Hardy Position: [facility] PCO Associate Professional Member Role: PCP Address: Address: [address] [place] [address]- [place] Name: Gregg Hardy MD Position: [facility] Pulmonary MD Member Role: Lifetime Consulting Physician Address: Address: [address] [place] [address]- Care Team Related Persons Name: MERRITT SINGLETARY Address: home [address] [place] [address] Name: BLAIRE JACOB Address: home [address] [place] [address]
--- OUTSIDE RECORDS SUMMARY | 2024-01-11 13:44 | XMS_ITS | Continuity of Care Document ---
Author Organization [facility] Juventino David lt Address [address] [place] [address]- Care Team Providers Care Shaping Machine Tender Name Role Phone Miles OTOOLE, Bernie Hardy Primary Care Physician Encounter [facility] Date(s): 05/21/23 - 06/20/23 [facility] Adult [address] [place] [address]- Allergies, Adverse Reactions, Alerts Substance Reaction Severity [...] (oldterm) 8 03/14/09 Given 1Result Comment: [09/19/2017] [id number] 2Result Comment: [02/13/2018] [id number] 3Result Comment: [02/08/2017] [facility] [id number] 317 02 4Result Comment: [01/24/2013] ORDERRED BY [...] EST, Route to Pharmacy Electronically, [facility], 163, cm, 03/07/23 8:42:00 EDT, [...] EDT, Route to Pharmacy Electronically, [facility], 163,cm, 11/22/20 12:47:00 EDT, Height [...] tablet, Refills 5, Maintenance, 03/27/23 23:12:00 EST, [facility] [...] Member Role: Lifetime Consulting Physician Address: Address: [address] [place] [address] [address] [place] [address]- [place] Name: Lore Clinton RN Position: [facility] RN Member Role: Primary Care Nurse Name: Miles OTOOLE, Bernie Hardy Position: [facility] PCO Associate Professional Member Role: PCP Address: Address: [address] [place] [address]- [place] Name: Gregg Hardy MD Position: [facility] Pulmonary MD Member Role: Lifetime Consulting Physician Address: Address: [address] [place] [address]- Care Team Related Persons Name: ONDINA SINGLETARY Address: home [address] [place] [address] Name: BLAIRE JACOB Address: [address] [place] [address]
--- OUTSIDE RECORDS SUMMARY | 2024-01-11 13:44 | XMS_ITS | Continuity of Care Document ---
Author Organization [facility] Address Unknown Care Team Providers Care Tenter Frame Back Tender Name Role Phone Miles OTOOLE, Bernie Hardy Primary Care Physician [phone] [place] [facility] Date(s): 08/19/21 - 09/18/21 [facility] Attending Physician: Brooklyn Shankar Admitting Physician: Brooklyn Shankar Referring Physician: [place] [...] (oldterm) 8 03/14/09 Given 1Result Comment: [02/13/2018] [id number] 2Result Comment: [02/08/2017] [facility] [id number] 317 02 3Result Comment: [01/24/2013] ORDERRED BY GINA GAINES MD 4Result Comment: [09/19/2017] [id number] 5Admin Note: vis given 6Admin Note: BIOMEDICAL [...] 02/23/21 16:10:00 EDT, Route to Pharmacy Electronically, [facility], Rx resent from 07/26/20, 163, [...] disorder(Confirmed) Active 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
--- OUTSIDE RECORDS SUMMARY | 2024-01-11 13:44 | XMS_ITS | Continuity of Care Document ---
Author Organization [facility] Sj Jauregui David lt Address [address] [place] [address]- Care Team Providers Care Lens Gauger Name Role Phone Gina Bhat MD Primary Care Physician [facility] Date(s): 01/21/20 - 02/21/20 [facility] Adult [address] [place] [address]- [facility] Attending Physician: Gina Bhat MD Allergies, [...] (oldterm) 8 03/14/09 Given 1Result Comment: [02/13/2018] [id number] 2Result Comment: [02/08/2017] [facility] [id number] 317 02 3Result Comment: [01/24/2013] ORDERRED BY GINA BHAT MD 4Result Comment: [09/19/2017] [id number] 5Admin Note: vis given 6Admin Note: BIOMEDICAL [...] Soft Stop, 12/29/19 16:39:00 EDT, [facility], 163, cm, 12/15/19 9:18:00 EDT, [...] EDT, Route to Pharmacy Electronically, [facility], 163, cm, 10/01/19 13:40:00 EDT, [...] 1 Refills, Maintenance, 07/20/19 23:41:00 EDT, Tablet, [facility], 163, cm, 07/11/19 11:24:00 EST, Height, 82.6, kg, 05/24/18 7:14:00EST, Dry Weight Start Date: 07/20/19 Status: Ordered lisinopril 2.5 mg oral tablet 2.5 mg, 1, tablet, By Mouth, Daily, # 30 tablet, Refills 11, Tot. Refills 11, Maintenance, 10/02/2013:10:00 EDT, Route to Pharmacy Electronically, [facility], 163, cm, 10/01/19 13:40:00 [...] tablet, 2 Refills, Maintenance, 12/29/19 13:42:00 EDT, [facility], 163, cm, 12/15/19 9:18:00 [...] Refills, Maintenance, 01/21/20 16:47:00 EDT, [facility], 163, cm, 01/16/20 10:48:00 EDT, Height,... Start Date: 01/21/20 Status: Ordered omeprazole 20 mg oral enteric coated capsule 1 capsule = 20 mg, By Mouth, 2 times a day, for 90 days, # 180 capsule, 3 Refills, Physician Stop 10/31/20 15:50:00 EDT, 11/06/19 15:50:00 EDT, [facility], 163, cm, 10/01/19 13:40:00 EDT, Height, 82.6, kg, 05/24/18 7:14:00 EST, Dry Weight Start Date: 11/06/19 Stop Date: 10/31/20 Status: Ordered ondansetron 8 mg oral tablet 1 tablet = 8 mg, By Mouth, 3 times a day, PRN Nausea & Vomiting, # 30 tablet, 0 Refills, Maintenance, 10/01/19 15:46:00 EDT, Tablet, [facility], 163, cm, 10/01/19 13:40:00 EDT, [...] Requisition Start Date: 05/19/16 Status: Ordered Pen [place], 31 G x 5 mm BD Ultra Fine III See Instructions, # 150 each, Refills 6, Tot. Refills 6, Maintenance, for use 4x daily with Lantus and humalog insulin E11.65, 06/24/18 10:09:38 EST, Compound Start Date: 06/24/18 Status: Ordered Pen [place], 31 G x 5 mm BD Ultra [...] 05/30/19 11:43:00 EST, Route to Pharmacy Electronically, [facility], 163, cm, 05/30/19 11:08:00 EST, Height, 82.6, kg, 05/24/18 7:14:00 EST,... Start Date: 05/30/19 Status: Ordered SUMAtriptan 100 mg oral tablet 1 tablet, By Mouth, Daily, PRN NEEDED FOR MIGRAINE, # 9 tablet, Refills 11 Tot. Refills 11, MAY REPEAT DOSE IN 2 HOURS IF NEEDED, [facility] Start Date: 04/14/19 Status: Ordered topiramate 50 mg oral tablet See Instructions, 1 tablet in morning, 3 tablets at bedtime, # 120 tablet, 5 Refills, Maintenance, 12/30/19 9:06:00 EDT, [facility], 163, cm, 12/15/19 9:18:00 EDT, [...]
--- OUTSIDE RECORDS SUMMARY | 2024-01-11 13:45 | XMS_ITS | Continuity of Care Document ---
Author Organization [facility] Juventino David lt Address [address] [place] [address]- Care Team Providers Care Gear And Spline Grinder Name Role Phone Miles OTOOLE, Bernie Hardy Primary Care Physician [phone] [facility] Date(s): 09/07/21 - 10/07/21 [facility] Adult [address] [place] [address]- Allergies, Adverse Reactions, Alerts Substance Reaction Severity Status azithromycin 1 Active morphine vomiting Active Cats Active Flonase Active Augmentin 2 Active Reglan [...] (oldterm) 8 03/14/09 Given 1Result Comment: [02/13/2018] [id number] 2Result Comment: [02/08/2017] [facility] [id number] 317 02 3Result Comment: [01/24/2013] ORDERRED BY GINA GAINES MD 4Result Comment: [09/19/2017] [id number] 5Admin Note: vis given 6Admin Note: BIOMEDICAL MARIELAL 7Admin Note: H1N1 8Admin Note: elsewhere Medications [...] EDT, Route to Pharmacy Electronically, [facility], Rx resent from 07/26/20, 163, [...]
--- OUTSIDE RECORDS SUMMARY | 2024-01-11 13:45 | XMS_ITS | Continuity of Care Document ---
Author Organization [facility] Juventino David Address [address] [place] [address]- Care Team Providers Care Food Technician Name Role Phone Perlita CHAIDEZ, Gina Smith Primary Care Physician [facility]20 [facility] Adult [address] [place] [address]- Encounter Diagnosis Sinusitis(Discharge Diagnosis) - 11/01/20 Type 2 diabetes mellitus(Discharge Diagnosis) - 11/01/20 Asthma - severe(Discharge Diagnosis) - 11/01/20 Back pain(Discharge Diagnosis) - 11/01/20 Attending Physician: Peace CONTRACTS REPRESENTATIVE, Sue Allergies, Adverse Reactions, Alerts Substance Reaction Severity [...] (oldterm) 8 03/14/09 Given 1Result Comment: [02/13/2018] [id number] 2Result Comment: [02/08/2017] [facility] [id number] 3Result Comment: [01/24/2013] ORDERRED BY GINA GAINES MD 4Result Comment: [09/19/2017] [id number] 5Admin Note: vis given 6Admin Note: BIOMEDICAL MARIELLA 7Admin Note: H1N1 8Admin Note: elsewhere Medications atorvastatin 40 mg oral tablet 1 tablet, By Mouth, Daily, # 90 Unknown, 3 Refills, Maintenance, 10/18/20 16:50:00 EDT, [facility], 163, cm, 09/23/20 9:42:00 EDT, Height Start Date: 10/18/20 Status: Ordered benztropine 1 mg oral tablet See Instructions, 1 tab hs, # 45 each, 5 Refills, Maintenance, 04/23/13 9:30:27 EST Start Date: 04/23/13 Status: Ordered Jade = 0.35 mg, By Mouth, Daily, 0 Refills, Maintenance, 01/16/20 10:54:00 EDT Start Date: 01/16/20 Status: Ordered clonazePAM 1 mg oral tablet 0 Refills, Maintenance, 09/23/20 9:59:00 EDT, Partial fill upon patient request if the prescriptionis for a schedule II opioid drug. Start Date: 09/23/20 Status: Ordered colchicine 0.6 mg oral tablet 0.6 mg, 1, tablet, By Mouth, 2 times a day, DX: Familial mediterreanen fever, # 60 tablet, Refills 11, Tot. Refills 11, Maintenance, 05/18/20 17:15:00 EST, Route to Pharmacy Electronically, [facility], D/C RX ON FILE FOR MALICK, 163, c... Start Date: 05/18/20 Status: Ordered [...] kg, ... Start Date: 12/09/19 Status: Ordered EpiPen 2-Juvenal = 0.3 mg, Intramuscular, Once, 0 Refills, Maintenance Start Date: 01/31/11 Status: Ordered Fioricet oral capsule 1 capsule, By Mouth, Once, PRN as needed, repeat in 2 hours if headache is still present, # 30 capsule, 0 Refills, Soft Stop, 05/13/20 10:25:00 EST, Capsule, [facility], 1 capsule By Mouth Once,PRN:as needed,Instr:repeat in 2 hours if he... Start Date: 05/13/20 Status: Ordered fluconazole 150 mg oral tablet 1 tablet = 150 mg, By Mouth, Once, epeat dose if still having symptoms in 72 hours, # 2 tablet, 0 Refills, Soft Stop, 11/01/20 15:04:00 EDT, Tablet, [facility], Partial fill upon patient request [...] 11/17/13 13:36:47 Start Date: 11/17/13 Status: Ordered lisinopril 2.5 mg oral tablet 1, tablet, By Mouth, Daily, # 30 tablet, Refills 11, Tot. Refills 0, Maintenance, 10/26/20 11:52:00EDT, Route to Pharmacy Electronically, [facility], 163, cm, 09/23/20 9:42:00 EDT,Height [...] EDT, Compound Start Date: 10/17/18 Status: Ordered Multivitamin Daily, 0 Refills, Maintenance, 07/26/20 8:46:00 EDT, Partial fill upon patient request if the prescription is for a schedule II opioid drug. Start Date: 07/26/20 Status: Ordered omeprazole 20 mg oral enteric coated capsule 1 capsule, By Mouth, 2 times a day, # 180 capsule, 0 Refills, Maintenance, 10/26/20 14:34:00 EDT, [facility], 163, cm, 09/23/20 9:42:00 EDT, [...] Weight Start Date: 10/01/19 Status: Ordered Pen [place], 31 G x 5 mm BD Ultra Fine III See Instructions, # 150 each, Refills 6, Tot. Refills 6, Maintenance, for use 4x daily with Lantus and humalog insulin E11.65, 06/24/18 10:09:38 EST, Compound Start Date: 06/24/18 Status: Ordered Pen [place], 31 G x 5 mm BD Ultra [...] 07/26/20 10:28:00 EDT, Route to Pharmacy Electronically, [facility], 163, cm, 07/26/20 8:40:00 EDT, Height Start Date: 07/26/20 Status: Ordered SUMAtriptan 100 mg oral tablet 1 tablet, By Mouth, Daily, PRN NEEDED FOR MIGRAINE, MAY REPEAT DOSE IN 2 HOURS IF NEEDED, # 9 tablet, 11 Refills, Soft Stop, 05/10/20 14:37:00 EST, [facility], 163, cm, 01/16/20 10:48:00 EDT, Height, 82.6, kg, 05/24/18 7:14:00 EST, . Start Date: 05/10/20 Status: Ordered topiramate 50 mg oral tablet See Instructions, 1 tablet in morning, 3 tablets at bedtime, # 120 tablet, 5 Refills, Maintenance, 07/06/20 10:04:00 EST, [facility], 163, cm, 05/13/20 9:12:00 EST, Height Start Date: 07/06/20 Status: Ordered Trulicity Pen 0.75 mg/0.5 mL subcutaneous solution 0.5 mL = 0.75 mg, Subcutaneous Injection, Every week, rotate injection sites, # 2 mL, 5 Refills, Maintenance, 11/01/20 14:54:00 EDT, Solution, [facility], Partial fill upon patient request if the prescription is for a schedule II opioid... Start Date: 11/01/20 Status: Ordered Tylenol 8 Hour Caplet 650 mg oral tablet, extended release 1 tablet = 650 mg, By Mouth, Every 8 hours, # 30 tablet, 0 Refills, Maintenance, 08/03/17 11:58:28 Start Date: 08/03/17 Status: Ordered Vraylar 3 mg oral capsule See Instructions, 1 capsule three times a week, 0 Refills, Maintenance, 09/06/18 14:26:35 EDT Start Date: 09/06/18 Status: Ordered Xolair 150 mg subcutaneous injection Subcutaneous Infusion, Every 14 days, 0 Refills, Maintenance Start Date: 01/31/11 Status: Ordered ZyrTEC 10 mg oral tablet 2 tablet = 20 mg, By Mouth, Daily, # 90 tablet, [...] Dates Health Status Cl inical Service Informant Sinusitis Discharge Diagnosis 11/01/20 Type 2 diabetes mellitus Discharge Diagnosis 11/01/20 Asthma - severe Discharge Diagnosis 11/01/20 Back pain Discharge Diagnosis 11/01/20 Vital Signs Most recent to oldest [Reference Range]: 1 Height 163 cm (11/01/20 2:31 PM) Weight 81.3 kg (11/01/20 2:31 PM) Oxygen Saturation [94-100 %] 99 % (11/01/20 2:31 PM) Pulse Rate [55-90 bpm] 89 bpm (11/01/20 2:31 PM) Body Mass Index [18.5-24.99] 30.6 *>HHI* (11/01/20 2:31 PM) Blood Pressure [90-138/55-84 mm Hg] 100/ 74mm Hg (11/01/20 2:31 PM) Temperature [96.8-100.4 DegF] 99.0 DegF (11/01/20 2:31 PM) Blood pressure sites Arm, right (11/01/20 2:31 PM) Temperature Route Oral (11/01/20 2:31 PM) Weight Obtained Via Standing scale (11/01/20 2:31 PM) Social History Social History Type Response Smoking Status Never smoker entered on: 01/21/18 Sex
--- OUTSIDE RECORDS SUMMARY | 2024-01-11 13:45 | XMS_ITS | Continuity of Care Document ---
Author Organization [facility] Address [address] [place] [address] [address] [place] [address]- Care Team Providers Care Boat Person Name Role Phone Miles OTOOLE, Bernie Hardy Primary Care Physician [facility] Date[facility]s): 01/11/22 - 02/10/[address] [place] [address]- Allergies, Adverse Reactions, Alerts Substance Reaction Severity [...] (oldterm) 8 03/14/09 Given 1Result Comment: [02/13/2018] [id number] 2Result Comment: [02/08/2017] [facility] [id number] 317 02 3Result Comment: [01/24/2013] ORDERRED BY GINA GAINES MD 4Result Comment: [09/19/2017] [id number] 5Admin Note: vis given 6Admin Note: BIOMEDICAL [...] EDT, Route to Pharmacy Electronically, [facility], 163,cm, 11/22/20 12:47:00 EDT, Height [...] Name: Miles OTOOLE, Bernie Hardy Address: Address: [address] [place] [id number]
--- OUTSIDE RECORDS SUMMARY | 2024-01-11 13:45 | XMS_ITS | Continuity of Care Document ---
Author Organization [facility] Juventino David Address [address] [place] [address]- Care Team Providers Care Otolaryngology Teacher Name Role Phone Miles OTOOLE, Bernie Hardy Primary Care Physician [facility]): 09/07/23 - 10/07/23 [facility] Adult [address] [place] [address]- Allergies, Adverse Reactions, Alerts Substance Reaction Severity [...] (oldterm) 8 03/14/09 Given 1Result Comment: [09/19/2017] [id number] 2Result Comment: [02/13/2018] [id number] 3Result Comment: [02/08/2017] [facility] [id number] 317 02 4Result Comment: [01/24/2013] ORDERRED BY [...] EST, Route to Pharmacy Electronically, [facility], 163, cm, 03/07/23 8:42:00 EDT, [...] 12/01/20 15:40:00 EDT, Route to Pharmacy Electronically, [facility], 163,cm, 11/22/20 12:47:00 EDT, Height [...] Refills, Maintenance, 04/23/23 11:08:00 EST, [facility], 163, cm, 03/07/23 8:42:00 EDT, Height, 76.2, kg, 01/06/22 8:38:00 EDT, Dry Weight Start Date: 04/23/23 Status: Ordered montelukast 10 mg oral tablet 1, tablet, By Mouth, Daily in PM, # 90 tablet, Refills 1, Tot. Refills 1, Maintenance, 10/01/23 18:42:00 EDT, Route to Pharmacy Electronically, [facility], 163, cm, 09/06/23 10:02:00 EDT, [...] Role: Lifetime Consulting Physician Address: Address: [address] [place] [address] [address] [facility] [place] [address]- Name: Oz SHERWOOD, Lore Position: [facility] RN Member Role: Primary Care Nurse Name: Miles OTOOLE, Bernie Hardy Position: [facility] PCO Associate Professional Member Role: PCP Address: Address: [address] [place] [id number]- [place] Name: Gregg Hardy MD Position: [facility] Pulmonary MD Member Role: Lifetime Consulting Physician Address: Address: [address] [place] [address]- Care Team Related Persons Name: ONDINA SINGLETARY Address: home [address] [place] [address] Name: BLAIRE JACOB Address: home [address] [place] [address]
--- OUTSIDE RECORDS SUMMARY | 2024-01-11 13:45 | XMS_ITS | Continuity of Care Document ---
Author Organization [facility] David lt Address [address] [place] [address]- Care Team Providers Care Counseling Program Leader Name Role Phone Miles OTOOLE, Bernie Hardy Primary Care Physician [facility]s): 02/13/22 - 03/15/22 [facility] Adult [address] [place] [address]- Allergies, Adverse Reactions, Alerts Substance Reaction Severity Status azithromycin 1 increases sx's Active morphine vomiting Active Flonase rhinitis Active Augmentin 2 increases sx Active Demerol HCl vomiting Active Adhesive Bandage rash Active Cats sneezing Active Reglan double vision Active 1Diarrhea 2makes sicker Immunizations Given and [...] (oldterm) 8 03/14/09 Given 1Result Comment: [02/13/2018] [id number] 2Result Comment: [02/08/2017] [facility] [id number] 317 02 3Result Comment: [01/24/2013] ORDERRED BY GINA GAINES MD 4Result Comment: [09/19/2017] [id number] 5Admin Note: vis given 6Admin Note: BIOMEDICAL [...] Personnel Name: Bernie Aquino NP Address: Address: [address] [place] [address]-
--- OUTSIDE RECORDS SUMMARY | 2024-01-11 13:45 | XMS_ITS | Continuity of Care Document ---
Author Organization [facility] Juventino David lt Address [address] [place] [address]- Care Team Providers Care Cattle Manager Name Role Phone Miles OTOOLE, Bernie Hardy Primary Care Physician [phone] Encounter [facility] Date(s): 04/11/22 - 05/11/22 [facility] Adult [address] [place] [address]- Allergies, Adverse Reactions, Alerts Substance Reaction Severity Status azithromycin 1 increases sx's Active morphine vomiting Active Augmentin 2 increases sx Active Cats sneezing Active Flonase rhinitis Active Reglan double vision [...] (oldterm) 8 03/14/09 Given 1Result Comment: [02/13/2018] [id number] 2Result Comment: [02/08/2017] [facility] [id number] 317 02 3Result Comment: [01/24/2013] ORDERRED BY GINA GAINES MD 4Result Comment: [09/19/2017] [id number] 5Admin Note: vis given 6Admin Note: BIOMEDICAL [...] Personnel Name: Marisa CHAIDEZ, Neto Osorio Position: [facility] Renal MD Member Role: Lifetime Consulting Physician Address: Address: [address] [place] [address], [address] [place] [address]- [place] Name: Oz SHERWOOD, Lore Position: [facility] RN Member Role: Primary Care Nurse Name: Miles OTOOLE, Bernie Hardy Position: [facility] PCO Associate Professional Member Role: PCP Address: Address: [address] [place] [phone]- [place] Name: Gregg Hardy MD Position: [facility] Pulmonary MD Member Role: Lifetime Consulting Physician Address: Address: [address] [place] [address]- Care Team Related Persons Name: MERRITT SINGLETARY Address: [address] [place] [address] Name: BLAIRE JACOB Address: home [address] [place] [address]
--- OUTSIDE RECORDS SUMMARY | 2024-01-11 13:45 | XMS_ITS | Continuity of Care Document ---
Author Organization [facility] Juventino David Address [address] [place] [address]- Care Team Providers Care Transportation Modeler Name Role Phone Miles OTOOLE, Bernie Hardy Primary Care Physician Encounter [facility] Date(s): 09/12/23 - 10/12/23 [facility] Adult [address] [place] [address]- Allergies, Adverse Reactions, Alerts Substance Reaction Severity Status azithromycin 1 increases sx's Active morphine vomiting Active Reglan double vision Active NSAIDs Active Flonase rhinitis Active Augmentin [...] (oldterm) 8 03/14/09 Given 1Result Comment: [09/19/2017] [id number] 2Result Comment: [02/13/2018] [id number] 3Result Comment: [02/08/2017] [facility] [id number] 317 02 4Result Comment: [01/24/2013] ORDERRED BY [...] EST, Route to Pharmacy Electronically, [facility], 163, cm, 03/07/23 8:42:00 EDT, [...] 12/01/20 15:40:00 EDT, Route to Pharmacy Electronically, [facility], 163,cm, 11/22/20 12:47:00 EDT, Height [...] Refills, Maintenance, 04/23/23 11:08:00 EST, [facility], 163, cm, 03/07/23 8:42:00 EDT, Height, 76.2, kg, 01/06/22 8:38:00 EDT, Dry Weight Start Date: 04/23/23 Status: Ordered montelukast 10 mg oral tablet 1, tablet, By Mouth, Daily in PM, # 90 tablet, Refills 1, Tot. Refills 1, Maintenance, 10/01/23 18:42:00 EDT, Route to Pharmacy Electronically, [facility], 163, cm, 09/06/23 10:02:00 EDT, [...] Member Role: Lifetime Consulting Physician Address: Address: [address] [place] [address] [address] [place] [address]- Name: Oz SHERWOOD, Lore Position: [facility] RN Member Role: Primary Care Nurse Name: Miles OTOOLE, Bernie Hardy Position: [facility] PCO Associate Professional Member Role: PCP Address: Address: [address] [place] [phone]- [place] Name: Gregg Hardy MD Position: [facility] Pulmonary MD Member Role: Lifetime Consulting Physician Address: Address: [address] [place] [address]- Care Team Related Persons Name: ONDINA SINGLETARY Address: home [address] [place] [address] Name: BLAIRE JACOB Address: [address] [place] [address]
--- OUTSIDE RECORDS SUMMARY | 2024-01-11 13:45 | XMS_ITS | Continuity of Care Document ---
Author Organization [facility] Juventino David Address [address] [place] [address]- Care Team Providers Care Product Marketing Director Name Role Phone Miles OTOOLE, Bernie Hardy Primary Care Physician [facility] Date[facility]s): 07/23/23 - 08/22/23 [facility] Adult [address] [place] [address]- Allergies, Adverse Reactions, Alerts Substance Reaction Severity [...] (oldterm) 8 03/14/09 Given 1Result Comment: [09/19/2017] [id number] 2Result Comment: [02/13/2018] [id number] 3Result Comment: [02/08/2017] [facility] [id number] 317 02 4Result Comment: [01/24/2013] ORDERRED BY [...] EST, Route to Pharmacy Electronically, [facility], 163, cm, 03/07/23 8:42:00 EDT, [...] Height, 76... Start Date: 06/06/22 Status: Ordered levoFLOXacin 500 mg oral tablet 1 tablet = 500 mg, By Mouth, Every 24 hours, for 7 days, # 7 tablet, 0 Refills, Acute 08/29/23 8:39:00 EDT, 08/22/23 8:39:00 EDT, [facility], Partial fill upon patient request if the prescription is for a schedule II opioid drug., 163, c... Start Date: 08/22/23 Stop Date: 08/29/23 Status: Ordered levothyroxine 0.05 mg oral tablet [...] Date: 06/06/23 Stop Date: 06/13/23 Status: Ordered Medrol Dosepak 4 mg oral tablet 1 pack/packet, By Mouth, Daily, for 6 days, as directed on package labeling, # 21 tablet, 0 Refills, Acute 08/28/23 8:40:00 EDT, 08/22/23 8:40:00 EDT, Tablet, [facility], Partial fill upon patient request if the prescription is for a raya... Start Date: 08/22/23 Stop Date: 08/28/23 Status: Ordered Melatonin 10 mg oral tablet [...] Marisa CHAIDEZ, Neto Osorio Position: [facility] Renal MD Member Role: Lifetime Consulting Physician Address: Address: [address] [place] [address] [address] [place] [address]- [place] Name: Lore Clinton RN Position: [facility] RN Member Role: Primary Care Nurse Name: Miles OTOOLE, Bernie Hardy Position: [facility] PCO Associate Professional Member Role: PCP Address: Address: [address] [place] [address]- [place] Name: Gregg Hardy MD Position: [facility] Pulmonary MD Member Role: Lifetime Consulting Physician Address: Address: [address] [place] [address]- [place] Care Team Related Persons Name: ONDINA SINGLETARY Address: [address] [place] [address] Name: BLAIRE JACOB Address: [address] [place] [address]
--- OUTSIDE RECORDS SUMMARY | 2024-01-11 13:45 | XMS_ITS | Continuity of Care Document ---
Author Organization [facility] David Address [address] [place] [address]- Care Team Providers Care Rent And Housing Investigator Name Role Phone Miles OTOOLE, Bernie Hardy Primary Care Physician [place] [facility]23 - 03/14/23 [facility] Adult [address] [place] [address]- Encounter Diagnosis Bipolar disorder(Discharge Diagnosis) - 03/07/23 Asthma - severe(Discharge Diagnosis) - 03/07/23 Nephrogenic diabetes insipidus(Discharge Diagnosis) - 03/07/23 Obstructive Sleep Apnea not on CPAP(Discharge Diagnosis) - 03/07/23 Type 2 diabetes mellitus(Discharge Diagnosis) - 03/07/23 Migraine(Discharge Diagnosis) - 03/07/23 Attending Physician: Bernie Aquino NP Referring Physician: [...] (oldterm) 8 03/14/09 Given 1Result Comment: [09/19/2017] [id number] 2Result Comment: [02/13/2018] [id number] 3Result Comment: [02/08/2017] [facility] [id number] 317 02 4Result Comment: [01/24/2013] ORDERRED BY [...] Refills, Maintenance, 01/01/23 12:44:00 EDT, [facility], 163, cm, 11/13/22 8:37:00 EDT, [...] 05/25/22 6:49:00 EST, Route to Pharmacy Electronically, [facility], 163, cm, 04/04/22 7:05:00 EST, [...] tablet, Refills 5, Maintenance, 10/01/22 10:34:00 EDT, [facility], [facility], [...] # 30 tablet, 0 Refills, [facility], 163, cm, 06/07/21 14:40:00 EST, [...] 5 Refills, 09/04/22 8:06:00 EDT, [facility], 163, cm, 09/04/22 7:38:00 EDT, [...] Clinical Service Informant Bipolar disorder Discharge Diagnosis 03/07/23 Asthma - severe Discharge Diagnosis 03/07/23 Nephrogenic diabetes insipidus Discharge Diagnosis 03/07/23 Obstructive Sleep Apnea not on CPAP Discharge Diagnosis 03/07/23 Type 2 diabetes mellitus Discharge Diagnosis 03/07/23 Migraine Discharge Diagnosis 03/07/23 Vital Signs Most recent to oldest [Reference Range]: 1 Height 163 cm (03/07/23 8:42 AM) Weight 82 kg (03/07/23 8:42 AM) Oxygen Saturation [94-100 %] 99 % (03/07/23 8:42 AM) Pulse Rate [55-90 bpm] 101 bpm *H* (03/07/23 8:42 AM) Body Mass Index [18.5-24.99 kg/m2] 30.86 kg/m2 *>HHI* (03/07/23 8:42 AM) Blood Pressure [90-138/55-84 mm Hg] 113/ 75mm Hg (03/07/23 8:42 AM) Blood pressure sites Arm, left (03/07/23 8:42 AM) Weight Obtained Via Standing scale (03/07/23 8:42 AM) Social History Social History Type Response Smoking Status Never smoker entered on: 05/12/13 Sex Note * Megit , Ludy: PERFORM, SIGN, VERIFY Event Display: Patient Education/Instruction Authored Date: [id number] [facility] Clinical Summary Name HEMANT LEE Age 47 Years 1975 PCP Bernie Aquino NP PCP Visit Date 03/07/2023 08:32:00 Additional Instructions: Scheduled Appointments?? Future Appointments ?No Future Appointments Scheduled Follow-Up Instructions ?? With: Address: When: Bernie Aquino NP [address] [facility] [place] [address] In 6 months Comments: cpe Diagnosis Medications: Please continue your medications until treatment is completed or stopped by your provider. Discuss any questions related to medications with your provider. Medications to Continue with No Changes These [...] Dose: Amiloride (aMILoride 5 mg oral tablet) 1 tab(s) Oral Daily. Next Dose: Amiloride (aMILoride 5 mg oral tablet) 1 tab(s) Oral Daily. Next Dose: Atorvastatin (atorvastatin 20 mg oral tablet) 1 tab(s) Oral Daily. REPLACING 10MG. Refills: 1. Next Dose: Benztropine (benztropine 0.5 mg oral tablet) 1 tab(s) Oral twice a day. Next Dose: cariprazine (Vraylar 3 mg oral capsule) 3 Milligram Oral Daily. Next Dose: cariprazine (Vraylar 4.5 mg oral capsule) 30 each, 0 Refill(s), TAKE 1 CAPSULE BY MOUTH EVERY MORNING. Next Dose: Cetirizine (cetirizine 10 mg oral [...] mg oral tablet) 1 tab(s) Oral once. may repeat x 1. Refills: 0. Next Dose: Fluconazole (Diflucan 150 mg oral tablet) 1 tab(s) Oral once. may repeat x 1. Refills: 0. Next Dose: Fluconazole (fluconazole 150 mg oral tablet) 1 tab(s) Oral once. Take one tablet by mouth today andone week from today.. Refills: 1. Next Dose: fluticasone/umeclidinium/vilanterol (Trelegy Ellipta) Inhalation Daily. Next Dose: galcanezumab (Emgality Prefilled Syringe 120 mg/mL subcutaneous solution) 120 Milligram Subcutaneous Infusion Every 28 days. Next Dose: HydrOXYzine (hydrOXYzine hydrochloride 10 mg oral tablet) 1 tab(s) Oral Daily at Bedtime. Next Dose: HydrOXYzine (hydrOXYzine pamoate 50 mg oral capsule) 1 capsule Oral 3 times a day. prn. Next Dose: Immune Globulin Intramuscular 20 GRAMS EVERY 3 WEEKS. Next Dose: Lamotrigine (LaMICtal 200 mg oral tablet) 3 tab(s) Oral Daily at Bedtime. Next Dose: Lamotrigine (lamotrigine 200 mg oral tablet) 1 tab(s) Oral Daily. Refills: 0. Next Dose: Levothyroxine (levothyroxine 0.05 mg oral tablet) 1 tab(s) Oral Daily. Go for blood test in 6 weeks.. Refills: 6. Next Dose: Melatonin (Melatonin 10 mg oral [...] 5. Next Dose: Multivitamin Daily. Next Dose: Norethindrone (Jade) 0.35 Milligram Oral [...] This Visit Future Orders ?No future orders Vital Signs Height 163 cm Weight 82 kg BMI 30.86 kg/m2 Blood Pressure 113 mm Hg/75 mm Hg Temperature Pulse Rate 101 bpm Respiratory Rate 02 Sat Mode of Delivery 99 %/ You can now view a summary of your hospital visit from the comfort of your home through a free online portal called [employer]. [employer] is a website that allows you to securely view your medical information including discharge summary, medications and follow-up visits. ??You can alsosend a secure electronic message to your doctor???s office to request appointments, renew medications or just ask a question. You can enroll at [email or web address] or register during your next office visit. [...] primary care provider, you may find a [facility] provider by calling [facility] at [phone]. [facility], in keeping with [facility] guidance, no longer requires face masks for [...] Personnel Name: Marisa CHAIDEZ, Neto Osorio Position: [facility] Renal MD Member Role: Lifetime Consulting Physician Address: Address: [address] [place] [address] [address] [place] [address]- [place] Name: Oz SHERWOOD, Lore Position: [facility] RN Member Role: Primary Care Nurse Name: Miles OTOOLE, Bernie Hardy Position: [facility] PCO Associate Professional Member Role: PCP Address: Address: [address] [place] [address]- [place] Name: Gregg Hardy MD Position: [facility] Pulmonary MD Member Role: Lifetime Consulting Physician Address: Address: [address] [place] [address]- Care Team Related Persons Name: GEMINI ONDINA Address: home [address] [place] [address] Name: BLAIRE JACOB Address: home [address] [place] [address]
--- OUTSIDE RECORDS SUMMARY | 2024-01-11 13:45 | XMS_ITS | Continuity of Care Document ---
Author Organization [facility] Juventino David Address [address] [place] [address]- Care Team Providers Care President Name Role Phone Miles OTOOLE, Bernie Hardy Primary Care Physician [phone] [facility] Date(s): 09/11/23 - 10/11/23 [facility] Adult [address] [place] [address]- Allergies, Adverse Reactions, Alerts Substance Reaction Severity [...] (oldterm) 8 03/14/09 Given 1Result Comment: [09/19/2017] [id number] 2Result Comment: [02/13/2018] [id number] 3Result Comment: [02/08/2017] [facility] [id number] 317 02 4Result Comment: [01/24/2013] ORDERRED BY [...] EST, Route to Pharmacy Electronically, [facility], 163, cm, 03/07/23 8:42:00 EDT, [...] 12/01/20 15:40:00 EDT, Route to Pharmacy Electronically, [facility], 163,cm, 11/22/20 12:47:00 EDT, Height [...] Refills, Maintenance, 04/23/23 11:08:00 EST, [facility], 163, cm, 03/07/23 8:42:00 EDT, Height, 76.2, kg, 01/06/22 8:38:00 EDT, Dry Weight Start Date: 04/23/23 Status: Ordered montelukast 10 mg oral tablet 1, tablet, By Mouth, Daily in PM, # 90 tablet, Refills 1, Tot. Refills 1, Maintenance, 10/01/23 18:42:00 EDT, Route to Pharmacy Electronically, [facility], 163, cm, 09/06/23 10:02:00 EDT, [...] Member Role: Lifetime Consulting Physician Address: Address: [address] [place] [address] [address] [place] [address]- Name: Oz SHERWOOD, Lore Position: [facility] RN Member Role: Primary Care Nurse Name: Miles OTOOLE, Bernie Hardy Position: [facility] PCO Associate Professional Member Role: PCP Address: Address: [address] [place] [address]- [place] Name: Gregg Hardy MD Position: [facility] Pulmonary MD Member Role: Lifetime Consulting Physician Address: Address: [address] [place] [address]- Care Team Related Persons Name: ONDINA SINGLETARY Address: home [address] [place] [address] Name: BLAIRE JACOB Address: home [address] [place] [address]
--- OUTSIDE RECORDS SUMMARY | 2024-01-11 13:45 | XMS_ITS | Continuity of Care Document ---
Author Organization [facility] Juventino David lt Address [address] [place] [address]- Care Team Providers Care Cardiothoracic Surgeon Name Role Phone Miles OTOOLE, Bernie Hardy Primary Care Physician Encounter [facility] [place] Date(s): 04/05/22 - 05/05/22 [facility] Adult [address] [place] [address]- Allergies, Adverse Reactions, Alerts Substance Reaction Severity Status azithromycin 1 increases sx's Active morphine vomiting Active Flonase rhinitis Active Augmentin 2 increases sx Active Reglan double vision Active Cats sneezing Active Demerol HCl vomiting Active Adhesive Bandage [...] (oldterm) 8 03/14/09 Given 1Result Comment: [02/13/2018] [id number] 2Result Comment: [02/08/2017] [facility] [id number] 317 02 3Result Comment: [01/24/2013] ORDERRED BY GINA GAINES MD 4Result Comment: [09/19/2017] [id number] 5Admin Note: vis given 6Admin Note: BIOMEDICAL [...] Personnel Name: Marisa CHAIDEZ, Neto Osorio Position: [facility] Renal MD Member Role: Lifetime Consulting Physician Address: Address: [address] [place] [address], [address] [place] [address]- [place] Name: Lore Clinton RN Position: [facility] RN Member Role: Primary Care Nurse Name: Miles OTOOLE, Bernie Hardy Position: [facility] PCO Associate Professional Member Role: PCP Address: Address: [address] [place] [address]- [place] Name: Gregg Hardy MD Position: [facility] Pulmonary MD Member Role: Lifetime Consulting Physician Address: Address: [address] [place] [address]- Care Team Related Persons Name: MERRITT SINGLETARY Address: home [address] [place] [address] Name: BLAIRE JACOB Address: home [address] [place] [address]
--- OUTSIDE RECORDS SUMMARY | 2024-01-11 13:45 | XMS_ITS | Continuity of Care Document ---
Author Organization [facility] David lt Address [address] [place] [address]- Care Team Providers Care Tugger Operator Name Role Phone Miles OTOOLE, Bernie Hardy Primary Care Physician [phone] [facility]counter [facility] Date(s): 06/29/21 - 07/29/21 [facility] Adult [address] [place] [address]- Allergies, Adverse Reactions, Alerts Substance Reaction Severity [...] (oldterm) 8 03/14/09 Given 1Result Comment: [02/13/2018] [id number] 2Result Comment: [02/08/2017] [facility] [id number] 317 02 3Result Comment: [01/24/2013] ORDERRED BY GINA GAINES MD 4Result Comment: [09/19/2017] [id number] 5Admin Note: vis given 6Admin Note: BIOMEDICAL [...] tablet, Refills 3, Tot. Refills 3, Maintenance, 10/13/21 16:10:00 EDT, Route to Pharmacy Electronically, [facility], Rx resent from 07/26/20, 163, cm, 02/21/21 15:42:00 EDT, Height, 81, kg, 09... Start Date: 02/23/21 Status: Ordered topiramate 50 mg oral tablet See Instructions, TAKE 1 TABLET IN THE MORNING AND 3 TABLETS AT BEDTIME., # 120 tablet, 5 Refills, [facility], 163, cm, 06/13/21 9:32:00 EST, [...] 5 Refills, Maintenance, 05/04/21 16:41:00 EST, Solution, [facility], Partial fill upon patient request [...]
--- OUTSIDE RECORDS SUMMARY | 2024-01-11 13:46 | XMS_ITS | Continuity of Care Document ---
Author Organization [facility] Sj Jauregui David lt Address [address] [place] [address]- Care Team Providers Care Certified Family Mediator Name Role Phone Gina Bhat MD Primary Care Physician [phone] [facility]counter [facility] Date(s): 07/12/20 - 08/11/20 [facility] S[facility] Jauregui Adult [address] [place] [address]- Allergies, Adverse Reactions, Alerts Substance Reaction Severity [...] (oldterm) 8 03/14/09 Given 1Result Comment: [02/13/2018] [id number] 2Result Comment: [02/08/2017] [facility] [id number] 317 02 3Result Comment: [01/24/2013] ORDERRED BY GINA BHAT MD 4Result Comment: [09/19/2017] [id number] 5Admin Note: vis given 6Admin Note: BIOMEDICAL [...] EDT, Route to Pharmacy Electronically, [facility], 163, cm, 10/01/19 13:40:00 EDT, [...] Refills, Soft Stop, 05/13/20 10:25:00 EST, Capsule, [facility], 1 capsule By Mouth Once,PRN:as needed,Instr:repeat in 2 hours if he... Start Date: 05/13/20 Status: Ordered hydrOXYzine pamoate 50 mg oral [...] 11/17/13 13:36:47 Start Date: 11/17/13 Status: Ordered Lipitor 40 mg oral tablet 1 tablet = 40 mg, By Mouth, Daily, # 90 tablet, 1 Refills, Maintenance, 07/20/19 23:41:00 EDT, Tablet, [facility], 163, cm, 07/11/19 11:24:00 EST, Height, 82.6, kg, 05/24/18 7:14:00EST, Dry Weight Start Date: 07/20/19 Status: Ordered lisinopril 2.5 mg oral tablet 2.5 mg, 1, tablet, By Mouth, Daily, # 30 tablet, Refills 11, Tot. Refills 11, Maintenance, 10/02/2013:10:00 EDT, Route to Pharmacy Electronically, [facility], 163, cm, 10/01/19 13:40:00 EDT, [...] Refills, Maintenance, 04/05/20 11:00:00 EST, [facility], 163, cm, 01/16/20 10:48:00 EDT, [...] 15:50:00 EDT, 11/06/19 15:50:00 EDT, [facility], 163, cm, 10/01/19 13:40:00 EDT, Height, 82.6, kg, 05/24/18 7:14:00 EST, Dry Weight Start Date: 11/06/19 Stop Date: 10/31/20 Status: Ordered ondansetron 8 mg oral tablet 1 tablet = 8 mg, By Mouth, 3 times a day, PRN Nausea & Vomiting, # 30 tablet, 0 Refills, Maintenance, 10/01/19 15:46:00 EDT, Tablet, [facility], 163, cm, 10/01/19 13:40:00 EDT, Height, 82.6, kg, 05/24/18 7:14:00 EST, Dry Weight Start Date: 10/01/19 Status: Ordered Pen [place], 31 G x 5 mm BD Ultra Fine III See Instructions, # 150 each, Refills 6, Tot. Refills 6, Maintenance, for use 4x daily with Lantus and humalog insulin E11.65, 06/24/18 10:09:38 EST, Compound Start Date: 06/24/18 Status: Ordered Pen [place], 31 G x 5 mm BD Ultra [...] 07/26/20 10:28:00 EDT, Route to Pharmacy Electronically, [facility], 163, cm, 07/26/20 8:40:00 EDT, Height Start Date: 07/26/20 Status: Ordered SUMAtriptan 100 mg oral tablet 1 tablet, By Mouth, Daily, PRN NEEDED FOR MIGRAINE, MAY REPEAT DOSE IN 2 HOURS IF NEEDED, # 9 tablet, 11 Refills, Soft Stop, 05/10/20 14:37:00 EST, [facility], 163, cm, 01/16/20 10:48:00 EDT, Height, 82.6, kg, 05/24/18 7:14:00 EST, . Start Date: 05/10/20 Status: Ordered topiramate 50 mg oral tablet See Instructions, 1 tablet in morning, 3 tablets at bedtime, # 120 tablet, 5 Refills, Maintenance, 07/06/20 10:04:00 EST, [facility], 163, cm, 05/13/20 9:12:00 EST, Height Start Date: 07/06/20 Status: Ordered Tylenol 8 Hour Caplet 650 [...]
--- OUTSIDE RECORDS SUMMARY | 2024-01-11 13:46 | XMS_ITS | Continuity of Care Document ---
Author Organization [facility] David lt Address [address] [place] [address]- Care Team Providers Care Mechanical Research Engineer Name Role Phone Miles OTOOLE, Bernie Hardy Primary Care Physician [facility] Date(s): 03/23/23 - 04/22/23 [facility] Adult [address] [place] [address]- Allergies, Adverse Reactions, Alerts Substance Reaction Severity [...] (oldterm) 8 03/14/09 Given 1Result Comment: [09/19/2017] [id number] 2Result Comment: [02/13/2018] [id number] 3Result Comment: [02/08/2017] [facility] [id number] 317 02 4Result Comment: [01/24/2013] ORDERRED BY [...] tablet, 1 Refills, Maintenance, 01/01/23 12:44:00 EDT, [email or web address], 163, cm, 11/13/22 8:37:00 EDT, [...] 05/25/22 6:49:00 EST, Route to Pharmacy Electronically, [facility], 163, cm, 04/04/22 7:05:00 EST, [...] 12/01/20 15:40:00 EDT, Route to Pharmacy Electronically, [facility], 163,cm, 11/22/20 12:47:00 EDT, Height [...] tablet, Refills 5, Maintenance, 03/27/23 23:12:00 EST, [facility], [facility] [...] Personnel Name: Marisa CHAIDEZ, Neto Osorio Position: [facility] Renal MD Member Role: Lifetime Consulting Physician Address: Address: [address] [place] [address] [address] [place] [address]- [place] Name: Loer Clinton RN Position: [facility] RN Member Role: Primary Care Nurse Name: Bernie Aquino NP Position: [facility] PCO Associate Professional Member Role: PCP Address: Address: [address] [place] [address]- [place] Name: Gregg Hardy MD Position: [facility] Pulmonary MD Member Role: Lifetime Consulting Physician Address: Address: [address] [place] [address]- Care Team Related Persons Name: ONDINA SINGLETARY Address: home [address] [place] [address] Name: BLAIRE JACOB Address: home [address] [place] [address]
--- OUTSIDE RECORDS SUMMARY | 2024-01-11 13:46 | XMS_ITS | Continuity of Care Document ---
Author Organization [facility] Sj Jauregui David lt Address [address] [place] [address]- Care Team Providers Care Household Appliance Assembler Name Role Phone Gina Bhat MD Primary Care Physician Encounter [facility] Date(s): 01/16/20 - 01/23/20 [facility] Adult [address] [place] [address]- [facility] Encounter Diagnosis Atopic dermatitis(Discharge Diagnosis) - 01/16/20 Attending Physician: Gina Bhat MD Allergies, Adverse [...] (oldterm) 8 03/14/09 Given 1Result Comment: [02/13/2018] [id number] 2Result Comment: [02/08/2017] [facility] [id number] 317 02 3Result Comment: [01/24/2013] ORDERRED BY GINA BHAT MD 4Result Comment: [09/19/2017] [id number] 5Admin Note: vis given 6Admin Note: BIOMEDICAL [...] 1 Refills, Soft Stop, 12/29/19 16:39:00 EDT, [facility], 163, cm, 12/15/19 9:18:00 EDT, [...] EDT, Route to Pharmacy Electronically, [facility], 163, cm, 10/01/19 13:40:00 EDT, [...] 1 Refills, Maintenance, 07/20/19 23:41:00 EDT, Tablet, [facility], 163, cm, 07/11/19 11:24:00 EST, Height, 82.6, kg, 05/24/18 7:14:00EST, Dry Weight Start Date: 07/20/19 Status: Ordered lisinopril 2.5 mg oral tablet 2.5 mg, 1, tablet, By Mouth, Daily, # 30 tablet, Refills 11, Tot. Refills 11, Maintenance, 10/02/2013:10:00 EDT, Route to Pharmacy Electronically, [facility], 163, cm, 10/01/19 13:40:00 [...] tablet, 2 Refills, Maintenance, 12/29/19 13:42:00 EDT, [facility], 163, cm, 12/15/19 9:18:00 [...] 15:50:00 EDT, 11/06/19 15:50:00 EDT, [facility], 163, cm, 10/01/19 13:40:00 EDT, Height, 82.6, kg, 05/24/18 7:14:00 EST, Dry Weight Start Date: 11/06/19 Stop Date: 10/31/20 Status: Ordered ondansetron 8 mg oral tablet 1 tablet = 8 mg, By Mouth, 3 times a day, PRN Nausea & Vomiting, # 30 tablet, 0 Refills, Maintenance, 10/01/19 15:46:00 EDT, Tablet, [facility], 163, cm, 10/01/19 13:40:00 EDT, [...] Requisition Start Date: 05/19/16 Status: Ordered Pen [place], 31 G x 5 mm BD Ultra Fine III See Instructions, # 150 each, Refills 6, Tot. Refills 6, Maintenance, for use 4x daily with Lantus and humalog insulin E11.65, 06/24/18 10:09:38 EST, Compound Start Date: 06/24/18 Status: Ordered Pen [place], 31 G x 5 mm BD Ultra [...] 05/30/19 11:43:00 EST, Route to Pharmacy Electronically, [facility], 163, cm, 05/30/19 11:08:00 EST, Height, 82.6, kg, 05/24/18 7:14:00 EST,... Start Date: 05/30/19 Status: Ordered SUMAtriptan 100 mg oral tablet 1 tablet, By Mouth, Daily, PRN NEEDED FOR MIGRAINE, # 9 tablet, Refills 11 Tot. Refills 11, MAY REPEAT DOSE IN 2 HOURS IF NEEDED, [facility] Start Date: 04/14/19 Status: Ordered topiramate 50 mg oral tablet See Instructions, 1 tablet in morning, 3 tablets at bedtime, # 120 tablet, 5 Refills, Maintenance, 12/30/19 9:06:00 EDT, [facility], 163, cm, 12/15/19 9:18:00 EDT, [...] Effective Dates Health Status Clinical Service Informant Atopic dermatitis Discharge Diagnosis 01/16/20 Vital Signs Most recent to oldest [Reference Range]: 1 Height 163 cm (01/16/20 10:48 AM) Weight 87.8 kg (01/16/20 10:48 AM) Oxygen Saturation [94-100 %] 98 % (01/16/20 10:48 AM) Pulse Rate [55-90 bpm] 100 bpm *H* (01/16/20 10:48 AM) Body Mass Index [18.5-24.99] 33.05 *>HHI* (01/16/20 10:48 AM) Blood Pressure [90-138/55-84 mm Hg] 118/ 78mm Hg (01/16/20 10:48 AM) Temperature [96.8-100.4 DegF] 98.4 DegF (01/16/20 10:48 AM) Mode of Delivery (Oxygen) Room air (01/16/20 10:48 AM) Blood pressure sites Arm, left (01/16/20 10:48 AM) Temperature Route Oral (01/16/20 10:48 AM) Weight Obtained Via Standing scale (01/16/20 10:48 AM) Social History Social History Type Response Smoking Status Never smoker entered on: 01/21/18 Sex
--- OUTSIDE RECORDS SUMMARY | 2024-01-11 13:46 | XMS_ITS | Continuity of Care Document ---
Author Organization [facility] Juventino David lt Address [address] [place] [address]- Care Team Providers Care Wage And Salary Specialist Name Role Phone Miles OTOOLE, Bernie Hardy Primary Care Physician [phone] [facility]counter [facility] Date(s): 11/04/21 - 12/04/21 [facility] Adult [address] [place] [address]- Allergies, Adverse Reactions, Alerts Substance Reaction Severity [...] (oldterm) 8 11/1/09 Given 1Result Comment: [02/13/2018] [id number] 2Result Comment: [02/08/2017] [facility] [id number] 317 02 3Result Comment: [01/24/2013] ORDERRED BY GINA GAINES MD 4Result Comment: [09/19/2017] [id number] 5Admin Note: vis given 6Admin Note: BIOMEDICAL [...]
--- OUTSIDE RECORDS SUMMARY | 2024-01-11 13:46 | XMS_ITS | Continuity of Care Document ---
Author Organization [facility] Juventino David lt Address [address] [place] [address]- Care Team Providers Care Pediatric Geneticist Name Role Phone Miles OTOOLE, Bernie Hardy Primary Care Physician [phone] Encounter [facility] [place] Date(s): 05/25/23 - 06/24/23 [facility] Adult [address] [place] [address]- Allergies, Adverse Reactions, Alerts Substance Reaction Severity Status azithromycin 1 increases sx's Active morphine vomiting Active Flonase rhinitis Active Augmentin 2 increases sx Active NSAIDs Active Reglan double vision Active Demerol HCl [...] (oldterm) 8 03/14/09 Given 1Result Comment: [09/19/2017] [id number] 2Result Comment: [02/13/2018] [id number] 3Result Comment: [02/08/2017] [facility] [id number] 317 02 4Result Comment: [01/24/2013] ORDERRED BY [...] EST, Route to Pharmacy Electronically, [facility], 163, cm, 03/07/23 8:42:00 EDT, [...] EDT, Route to Pharmacy Electronically, [facility], 163,cm, 11/22/20 12:47:00 EDT, Height [...] tablet, Refills 5, Maintenance, 03/27/23 23:12:00 [facility] [...] Personnel Name: Marisa CHAIDEZ, Neto Osorio Position: [facility] Renal MD Member Role: Lifetime Consulting Physician Address: Address: [address] [place] [address] [address] [place] [address]- [place] Name: Lore Clinton RN Position: [facility] RN Member Role: Primary Care Nurse Name: Miles OTOOLE, Bernie Hardy Position: [facility] PCO Associate Professional Member Role: PCP Address: Address: [address] [place] [address]- [place] Name: Gregg Hardy MD Position: [facility] Pulmonary MD Member Role: Lifetime Consulting Physician Address: Address: [address] [place] [address]- Care Team Related Persons Name: ONDINA SINGLETARY Address: home [address] [place] [address] Name: BLAIRE JACOB Address: home [address] [place] [address]
--- OUTSIDE RECORDS SUMMARY | 2024-01-11 13:46 | XMS_ITS | Continuity of Care Document ---
Author Organization [facility] Juventino David Address [address] [place] [address]- Care Team Providers Care Supply Chain Director Name Role Phone Miles OTOOLE, Bernie Hardy Primary Care Physician [facility] Date([facility]): 08/22/22 - 09/21/22 [facility] Adult [address] [place] [address]- Allergies, Adverse Reactions, Alerts Substance Reaction Severity Status azithromycin 1 increases sx's Active morphine vomiting Active Augmentin 2 increases sx Active Reglan double vision Active Cats sneezing Active NSAIDs Active Flonase rhinitis Active Demerol HCl vomiting Active Adhesive Bandage [...] (oldterm) 8 03/14/09 Given 1Result Comment: [09/19/2017] [id number] 2Result Comment: [02/13/2018] [id number] 3Result Comment: [02/08/2017] [facility] [id number] 317 02 4Result Comment: [01/24/2013] ORDERRED BY [...] Refills, Maintenance, 01/16/20 10:54:00 EDT Start Date: 9/4/20 Status: Ordered cetirizine 10 mg oral tablet [...] 05/25/22 6:49:00 EST, Route to Pharmacy Electronically, [facility], 163, cm, 04/04/22 7:05:00 EST, [...] 12/01/20 15:40:00 EDT, Route to Pharmacy Electronically, [facility], 163,cm, 11/22/20 12:47:00 EDT, Height [...] Maintenance,03/17/22 6:52:00 EDT, Route to Pharmacy Electronically, [facility], Partial fill upon patient request [...] Personnel Name: Marisa CHAIDEZ, Neto Osorio Position: [facility] Renal MD Member Role: Lifetime Consulting Physician Address: Address: [address] [place] [address], [address] [place] [address]- [place] Name: Lore Clinton RN Position: [facility] RN Member Role: Primary Care Nurse Name: Miles OTOOLE, Bernie Hardy Position: [facility] PCO Associate Professional Member Role: PCP Address: Address: [address] [place] [address]- [place] Name: Gregg Hardy MD Position: [facility] Pulmonary MD Member Role: Lifetime Consulting Physician Address: Address: [address] [place] [address]- [place] Care Team Related Persons Name: MERRITT SINGLETARY Address: home [address] [place] [address] Name: BLAIRE JACOB Address: home [address] [place] [address]
--- OUTSIDE RECORDS SUMMARY | 2024-01-11 13:46 | XMS_ITS | Continuity of Care Document ---
Author Organization [facility] Address [address] [place] [address]- Care Team Providers Care Representative Personal Service Name Role Phone Miles OTOOLE, Bernie Hardy Primary Care Physician Encounter [facility] [place] Date(s): 06/30/21 - 07/30/21 [facility] Endocr[facility]ology and Diabetes [address] [place] [address]- Allergies, Adverse Reactions, Alerts Substance Reaction Severity [...] (oldterm) 8 03/14/09 Given 1Result Comment: [02/13/2018] [id number] 2Result Comment: [02/08/2017] [facility] [id number] 317 02 3Result Comment: [01/24/2013] ORDERRED BY GINA GAINES MD 4Result Comment: [09/19/2017] [id number] 5Admin Note: vis given 6Admin Note: BIOMEDICAL [...] 02/23/21 16:10:00 EDT, Route to Pharmacy Electronically, [facility], Rx resent from 07/26/20, 163, cm, 02/21/21 15:42:00 EDT, Height, 81, kg, 09... Start Date: 02/23/21 Status: Ordered topiramate 50 mg oral tablet See Instructions, TAKE 1 TABLET IN THE MORNING AND 3 TABLETS AT BEDTIME., # 120 tablet, 5 Refills, [facility], 163, cm, 06/13/21 9:32:00 EST, [...] 5 Refills, Maintenance, 05/04/21 16:41:00 EST, Solution, [facility] #[facility], Partial fill upon patient request [...]
--- OUTSIDE RECORDS SUMMARY | 2024-01-11 13:46 | XMS_ITS | Continuity of Care Document ---
Author Organization [facility] David lt Address [address] [place] [address]- Care Team Providers Care Transfer Operator Name Role Phone iMles OTOOLE, Bernie Hardy Primary Care Physician [place] [facility] [place] 03/15/22 [facility] Adult [address] [place] [address]- Attending Physician: Not on Staff, Attending MD Referring Physician: Miles OTOOLE, Bernie Hardy Allergies, [...] (oldterm) 8 03/14/09 Given 1Result Comment: [02/13/2018] [id number] 2Result Comment: [02/08/2017] [facility] [id number] 317 02 3Result Comment: [01/24/2013] ORDERRED BY GINA GAINES MD 4Result Comment: [09/19/2017] [id number] 5Admin Note: vis given 6Admin Note: BIOMEDICAL [...] Name: Bernie Aquino NP Address: Address: [address] [place] [address]-
--- OUTSIDE RECORDS SUMMARY | 2024-01-11 13:46 | XMS_ITS | Continuity of Care Document ---
Author Organization [facility] Juventino David lt Address [address] [place] [address]- Care Team Providers Care Well Flow Operator Name Role Phone Miles OTOOLE, Bernie Hardy Primary Care Physician [phone] [place] [facility] [place] 09/11/22 [facility] Adult [address] [place] [address]- Encounter Diagnosis Annual physical exam(Discharge Diagnosis) - 09/04/22 Bipolar disorder(Discharge Diagnosis) - 09/04/22 Asthma - severe(Discharge Diagnosis) - 09/04/22 Congenital Hypogammaglobulinemia(Discharge Diagnosis) - 09/04/22 FMF (familial Mediterranean fever)(Discharge Diagnosis) - 09/04/22 Migraine(Discharge Diagnosis) - 09/04/22 Papillary thyroid carcinoma(Discharge Diagnosis) - 09/04/22 Type 2 diabetes mellitus(Discharge Diagnosis) - 09/04/22 Attending Physician: Bernie Aquino NP Referring Physician: [...] (oldterm) 8 03/14/09 Given 1Result Comment: [09/19/2017] [id number] 2Result Comment: [02/13/2018] [id number] 3Result Comment: [02/08/2017] [facility] [id number] 317 02 4Result Comment: [01/24/2013] ORDERRED BY [...] Refills, Maintenance, 07/03/22 16:02:00 EST, [facility], 163, cm, 06/26/22 7:02:00 EST, [...] 05/25/22 6:49:00 EST, Route to Pharmacy Electronically, [facility], 163, cm, 04/04/22 7:05:00 EST, [...] 12/01/20 15:40:00 EDT, Route to Pharmacy Electronically, [facility], 163,cm, 11/22/20 12:47:00 EDT, Height [...] Effective Dates Health Status Clinical Service Informant Annual physical exam Discharge Diagnosis 09/04/22 Bipolar disorder Discharge Diagnosis 09/04/22 Asthma - severe Discharge Diagnosis 09/04/22 Congenital Hypogammaglobulinemia Discharge Diagnosis 09/04/22 FMF (familial Mediterranean fever) Discharge Diagnosis 09/04/22 Migraine Discharge Diagnosis 09/04/22 Papillary thyroid carcinoma Discharge Diagnosis 09/04/22 Type 2 diabetes mellitus Discharge Diagnosis 09/04/22 Vital Signs Most recent to oldest [Reference Range]: 1 Height 163 cm (09/04/22 7:38 AM) Weight 78 kg (09/04/22 7:38 AM) Oxygen Saturation [94-100 %] 97 % (09/04/22 7:38 AM) Pulse Rate [55-90 bpm] 75 bpm (09/04/22 7:38 AM) Body Mass Index [18.5-24.99 kg/m2] 29.36 kg/m2 *H* (09/04/22 7:38 AM) Blood Pressure [90-138/55-84 mm Hg] 110/ 73mm Hg (09/04/22 7:38 AM) Blood pressure sites Arm, left (09/04/22 7:38 AM) Weight Obtained Via Standing scale (09/04/22 7:38 AM) Social History Social History Type Response Smoking Status Never smoker entered on: 05/12/13 Sex Note * Merly Mccoy: PERFORM, SIGN, VERIFY Event Display: Patient Education/Instruction Authored Date: [id number] [facility] *BMP Razia Recinos Clinical Summary Name HEMANT LEE Age 46 Years 1975 PCP Miles OTOOLE, Bernie Hardy PCP Visit Date 09/04/2022 07:33:00 Additional Instructions: Scheduled Appointments?? Future Appointments ?[facility] ?[address] ?[facility],??[place],??[address] ?Phone:??[phone]?Fax:??-- ?Appt. Date:??09/07/2022?7:15 AM ?Scheduled Provider:??[facility] US Gen [facility]m 1 ?[facility] ?[address]??[place],??[place],??[address] ?Phone:??[phone]?Fax:??-- ?Appt. Date:??10/23/2022?8:15 AM ?Scheduled Provider:??[facility] 3D Mammo Rm 2 Follow-Up Instructions ?? With: Address: When: Bernie Aquino NP [address] [place] [address] [place] [address] In 6 months Comments: long Diagnosis Encounter for general adult medical examination without abnormal findings Medications: Please continue your medications until treatment is completed or stopped by your provider. Discuss any questions related to medications with your provider. New Medications [facility], [address] [place] [id number], [phone] Mupirocin Topical (mupirocin 2% topical ointment) 1 chinmay Topically 3 times a day for 5 Days. Refills: 0. Next Dose: Medications to Continue Taking That Have Changed These medications were not printed or sent to your pharmacy - Fluconazole (fluconazole 150 mg oral tablet) 1 tab(s) Oral once. Take one tablet by mouth today and one week from today.. Refills: 1. Next Dose: Medications to Continue with No Changes [facility], [address] [place], [place] [id number], [phone] Topiramate (topiramate 50 mg oral tablet) TAKE 1 TABLET IN THE MORNING AND 3 TABLETS AT BEDTIME.. Refills: 5. Next Dose: These medications were not printed or sent [...] mg oral tablet) 1 tab(s) Oral Daily. replace 10mg. Refills: 3. Next Dose: Benztropine (benztropine 0.5 mg oral tablet) 1 tab(s) Oral twice a day. Next Dose: cariprazine (Vraylar 3 mg oral capsule) 3 Milligram Oral Daily. Next Dose: Cetirizine (cetirizine 10 mg oral [...] 2-Juvenal) 0.3 Milligram Intramuscular once. Next Dose: fluticasone/umeclidinium/vilanterol (Trelegy Ellipta) Inhalation Daily. [...] Daily. Refills: 0. Next Dose: Levothyroxine (levothyroxine 0.025 mg oral tablet) 1 tab(s) Oral Daily. Refills: 6. Next Dose: Melatonin (Melatonin 10 mg oral tablet) 1 tab(s) Oral Daily at Bedtime. Next Dose: Metformin (metFORMIN 500 mg oral tablet) 2 tab(s) Oral twice a day for 30 Days. Refills: 6. Next Dose: Miscellaneous Rx (Serum Calcium, Albumin, Parathyroid hormone) To be drawn on 01/12/22. Refills: 0. Next Dose: Montelukast (montelukast 10 mg oral tablet) 1 tab(s) Oral Daily. in evening. Refills: 6. Next Dose: Multivitamin Daily. Next Dose: Norethindrone (Jade) 0.35 Milligram Oral Daily. Next Dose: omalizumab (Xolair 150 mg subcutaneous injection) Subcutaneous Infusion Every 14 days. Next Dose: omalizumab (Xolair 150 mg subcutaneous injection) 300 mg Subcutaneous Injection. Next Dose: Omeprazole (omeprazole 40 mg oral enteric coated capsule) 1 capsule Oral twice a day. Refills: 0. Next Dose: Ondansetron (ondansetron 8 mg oral tablet) TAKE 1 TABLET BY MOUTH 3 TIMES A DAY NEEDED FOR NAUSEA AND VOMITING. Refills: 0. Next Dose: Oxcarbazepine (Trileptal 300 mg oral tablet) 1.5 tabs BID. Next Dose: Rizatriptan (rizatriptan 10 mg oral tablet) 1 tab(s) Oral. PRN. Next Dose: sitagliptin (Januvia 100 mg oral tablet) 1 tab(s) Oral Daily for 30 Days. replace 50mg. Refills: 6. Next Dose: Allergy Info:?? NSAIDs; Cats; Adhesive Bandage; Demerol HCl; Reglan; Augmentin; Flonase; morphine; azithromycin Medications Given This Visit Future Orders ?No future orders Vital Signs Height 163 cm Weight 78 kg BMI 29.36 kg/m2 Blood Pressure 110 mm Hg/73 mm Hg Temperature Pulse Rate 75 bpm Respiratory Rate 02 Sat Mode of Delivery 97 %/ You can now view a summary of your hospital visit from the comfort of your home through a free online portal called [employer]. [employer] is a website that allows you to securely view your medical information including discharge summary, medications and follow-up visits. ??You can alsosend a secure electronic message to your doctor???s office to request appointments, renew medications or just ask a question. You can enroll at [email or web address] or register during your next office visit. [...] primary care provider, you may find a [facility] provider by calling [facility] Link at [phone]. For information about the plan of care [...] Personnel Name: Marisa CHAIDEZ, Neto Osorio Position: [facility] Renal MD Member Role: Lifetime Consulting Physician Address: Address: [address] [place] [address], [address] Name: Lore Clinton RN Position: [facility] RN Member Role: Primary Care Nurse Name: Bernie Aquino NP Position: [facility] PCO Associate Professional Member Role: PCP Address: Address: [address] [place] [address]- [place] Name: Gregg Hardy MD Position: [facility] MD Member Role: Lifetime Consulting Physician Address: Address: [address] [place] [address]- Care Team Related Persons Name: MERRITT SINGLETARY Address: home [address] [place] [address] Name: BLAIRE JACOB Address: [address] [place] [address]
--- OUTSIDE RECORDS SUMMARY | 2024-01-11 13:46 | XMS_ITS | Continuity of Care Document ---
Author Organization [facility] David lt Address [address] [place] [address]- Care Team Providers Care Hearing Aid Dispenser Name Role Phone Miles OTOOLE, Bernie Hardy Primary Care Physician [phone] En[place] [facility] [place] Date(s): 12/01/21 - 03/31/22 [facility] Adult [address] [place] [address]- Attending Physician: Bernie Aquino NP Referring Physician: [...] (oldterm) 8 03/14/09 Given 1Result Comment: [02/13/2018] [id number] 2Result Comment: [02/08/2017] [facility] [id number] 317 02 3Result Comment: [01/24/2013] ORDERRED BY GINA GAINES MD 4Result Comment: [09/19/2017] [id number] 5Admin Note: vis given 6Admin Note: BIOMEDICAL [...] EDT, Route to Pharmacy Electronically, [facility], 163,cm, 11/22/20 12:47:00 EDT, Height [...] opioid drug. Start Date: 01/06/22 Status: Ordered potassium chloride 10 mEq oral [...] Personnel Name: Marisa CHAIDEZ, Neto Osorio Position: [facility] Renal MD Member Role: Lifetime Consulting Physician Address: Address: [address] [place] [address], [address] [place] [address]- [place] Name: Lore Clinton RN Position: [facility] RN Member Role: Primary Care Nurse Name: Bernie Aquino NP Position: [facility] PCO Associate Professional Member Role: PCP Address: Address: [address] [place] [address]- [place] Name: Gregg Hardy MD Position: [facility] Pulmonary MD Member Role: Lifetime Consulting Physician Address: Address: [address] [place] [address]- Care Team Related Persons Name: MERRITT SINGLETARY Address: home [address] [place] [address] Name: BLAIRE JACOB Address: home [address] [place] [address]
--- OUTSIDE RECORDS SUMMARY | 2024-01-11 13:46 | XMS_ITS | Continuity of Care Document ---
Author Organization [facility] Juventino David Address [address] [place] [address]- Care Team Providers Care Bag Machine Helper Name Role Phone Gina Bhat MD Primary Care Physician [facility] Date[facility]): 05/04/21 - 06/03/21 [facility] Adult [address] [place] [address]- Allergies, Adverse Reactions, Alerts Substance Reaction Severity [...] (oldterm) 8 03/14/09 Given 1Result Comment: [02/13/2018] [id number] 2Result Comment: [02/08/2017] [facility] [id number] 317 02 3Result Comment: [01/24/2013] ORDERRED BY GINA BHAT MD 4Result Comment: [09/19/2017] [id number] 5Admin Note: vis given 6Admin Note: BIOMEDICAL [...] EDT, Route to Pharmacy Electronically, [facility], 163,cm, 11/22/20 12:47:00 EDT, Height [...] Weight Start Date: 03/16/21 Status: Ordered Pen Hercules, 31 G x 5 mm BD Ultra Fine III See Instructions, # 150 each, Refills 6, Tot. Refills 6, Maintenance, for use 4x daily with Lantus and humalog insulin E11.65, 06/24/18 10:09:38 EST, Compound Start Date: 06/24/18 Status: Ordered Pen Hercules, 31 G x 5 mm BD Ultra [...]
--- OUTSIDE RECORDS SUMMARY | 2024-01-11 13:46 | XMS_ITS | Continuity of Care Document ---
Author Organization [facility] David Address [address] [place] [address]- Care Team Providers Care Hangersmith Name Role Phone Gina Bhat MD Primary Care Physician [facility] Date(s): 09/29/20 - 10/29/20 [facility] Adult [address] [place] [address]- Allergies, Adverse Reactions, Alerts Substance Reaction Severity [...] (oldterm) 8 03/14/09 Given 1Result Comment: [02/13/2018] [id number] 2Result Comment: [02/08/2017] [facility] [id number] 317 02 3Result Comment: [01/24/2013] ORDERRED BY GINA BHAT MD 4Result Comment: [09/19/2017] [id number] 5Admin Note: vis given 6Admin Note: BIOMEDICAL [...] EST, Route to Pharmacy Electronically, [facility], D/C RX ON FILE FOR [...] 11:52:00EDT, Route to Pharmacy Electronically, [facility], 163, cm, 09/23/20 9:42:00 EDT,Height [...] Refills, Maintenance, 10/04/20 11:38:00 EDT, [facility], 163, cm, 09/23/20 9:42:00 EDT, [...] Weight Start Date: 10/01/19 Status: Ordered Pen [place], 31 G x 5 mm BD Ultra Fine III See Instructions, # 150 each, Refills 6, Tot. Refills 6, Maintenance, for use 4x daily with Lantus and humalog insulin E11.65, 06/24/18 10:09:38 EST, Compound Start Date: 06/24/18 Status: Ordered Pen [place], 31 G x 5 mm BD Ultra [...] 07/26/20 10:28:00 EDT, Route to Pharmacy Electronically, [facility], 163, cm, 07/26/20 8:40:00 EDT, Height Start Date: 07/26/20 Status: Ordered SUMAtriptan 100 mg oral tablet 1 tablet, By Mouth, Daily, PRN NEEDED FOR MIGRAINE, MAY REPEAT DOSE IN 2 HOURS IF NEEDED, # 9 tablet, 11 Refills, Soft Stop, 05/10/20 14:37:00 EST, [facility], 163, cm, 01/16/20 10:48:00 EDT, Height, 82.6, kg, 05/24/18 7:14:00 EST, Start Date: 05/10/20 Status: Ordered topiramate 50 [...] 5 Refills, Maintenance, 05/13/20 10:22:00 EST, Solution, [facility], Partial fill upon patient request [...]
--- OUTSIDE RECORDS SUMMARY | 2024-01-11 13:46 | XMS_ITS | Continuity of Care Document ---
Author Organization [facility] Address [address] [place] [address]- Care Team Providers Care Agricultural Science Professor Name Role Phone Miles OTOOLE, Bernie Hardy Primary Care Physician [phone] [place] [facility] [place]16/23 - 12/16/23 [facility] Diabetes [address] [place] [id number] Allergies, Adverse Reactions, Alerts Substance Reaction [...] (oldterm) 8 03/14/09 Given 1Result Comment: [09/19/2017] [id number] 2Result Comment: [02/13/2018] [id number] 3Result Comment: [02/08/2017] [facility] [id number] 317 02 4Result Comment: [01/24/2013] ORDERRED BY [...] EST, Route to Pharmacy Electronically, [facility], 163, cm, 03/07/23 8:42:00 EDT, [...] tablet, 2 Refills, Maintenance, 10/30/23 15:37:00 EDT, [facility], 163, cm, 10/29/23 10:06:00 EDT, Height, 76.2, kg, 01/06/22 8:38:00 EDT, Dry Weight Start Date: 10/30/23 Status: Ordered montelukast 10 mg oral tablet 1, tablet, By Mouth, Daily in PM, # 90 tablet, Refills 1, Tot. Refills 1, Maintenance, 10/01/23 18:42:00 EDT, Route to Pharmacy Electronically, [facility], 163, cm, 09/06/23 10:02:00 EDT, [...] 60 capsule, 6 Refills, Maintenance, 10/26/22 11:06:00EDT, [facility], Partial fill upon patient request [...] Member Role: Lifetime Consulting Physician Address: Address: [address] [place] [address] [address] [place] [address]- [place] Name: Lore Clinton RN Position: [facility] RN Member Role: Primary Care Nurse Name: Bernie Aquino NP Position: [facility] PCO Associate Professional Member Role: PCP Address: Address: [address] [place] [address]- [place] Name: Gregg Haryd MD Position: [facility] Pulmonary MD Member Role: Lifetime Consulting Physician Address: Address: [address] [place] [address]- Care Team Related Persons Name: ONDINA SINGLETARY Address: [address] [place] [address] Name: BLAIRE JACOB Address: [address] [place] [address]
--- OUTSIDE RECORDS SUMMARY | 2024-01-11 13:46 | XMS_ITS | Continuity of Care Document ---
Author Organization [facility] Juventino David Address [address] [place] [address]- Care Team Providers Care Playground Aide Name Role Phone Miles OTOOLE, Bernie Hardy Primary Care Physician [phone] Encounter [facility] Date(s): 09/07/21 - 09/14/21 [facility] Adult [address] [place] [address]- Encounter Diagnosis Upper respiratory infection(Discharge Diagnosis) - 09/07/21 Hyperparathyroidism - lithum induced(Discharge Diagnosis) - 09/07/21 Type 2 diabetes mellitus(Discharge Diagnosis) - 09/07/21 Nodular goiter - monitoring(Discharge Diagnosis) - 09/07/21 Asthma - severe(Discharge Diagnosis) - 09/07/21 Attending Physician: Berine Aquino NP Allergies, Adverse Reactions, Alerts Substance [...] (oldterm) 8 03/14/09 Given 1Result Comment: [02/13/2018] [id number] 2Result Comment: [02/08/2017] [facility] [id number] 317 02 3Result Comment: [01/24/2013] ORDERRED BY GINA GAINES MD 4Result Comment: [09/19/2017] [id number] 5Admin Note: vis given 6Admin Note: BIOMEDICAL [...] EDT, Route to Pharmacy Electronically, [email or web address], Rx resent from 07/26/20, 163, cm, 02/21/21 15:42:00 EDT, Height, 81, kg, 09... Start Date: 02/23/21 Status: Ordered topiramate 50 mg oral tablet See Instructions, TAKE 1 TABLET IN THE MORNING AND 3 TABLETS AT BEDTIME., # 120 tablet, 5 Refills, [facility], 163, cm, 06/13/21 9:32:00 EST, [...] 5 Refills, Maintenance, 08/08/21 15:48:00 EDT, Solution, [facility], Partial fill upon [...] Service Informant Upper respiratory infection Discharge Diagnosis 09/07/21 Hyperparathyroidism - lithum induced Discharge Diagnosis 09/07/21 Type 2 diabetes mellitus Discharge Diagnosis 09/07/21 Nodular goiter - monitoring Discharge Diagnosis 09/07/21 Asthma - severe Discharge Diagnosis 09/07/21 Vital Signs Most recent to oldest [Reference Range]: 1 Height 163 cm (09/07/21 9:26 AM) Weight 77.7 kg (09/07/21 9:26 AM) Oxygen Saturation [94-100 %] 97 % (09/07/21 9:26 AM) Pulse Rate [55-90 bpm] 94 bpm *H* (09/07/21 9:26 AM) Body Mass Index [18.5-24.99] 29.24 *H* (09/07/21 9:26 AM) Blood Pressure [90-138/55-84 mm Hg] 99/6 7mm Hg (09/07/21 9:26 AM) Temperature [96.8-100.4 DegF] 98.7 DegF (09/07/21 9:26 AM) Blood pressure sites Arm, left (09/07/21 9:26 AM) Temperature Route Temporal (09/07/21 9:26 AM) Weight Obtained Via Standing scale (09/07/21 9:26 AM) Social History Social History Type Response Smoking Status Never smoker entered on: 05/12/13 Sex
--- OUTSIDE RECORDS SUMMARY | 2024-01-11 13:47 | XMS_ITS | Continuity of Care Document ---
Author Organization [facility] Address [address] [place] [address]- Care Team Providers Care Transportation Design Engineer Name Role Phone Miles OTOOLE, Bernie Hardy Primary Care Physician Encounter [facility] Date(s): 03/09/22 - 04/08/22 [facility] [address] [place] [address] Attending Physician: Brooklyn Shankar Admitting Physician: Adm[place] Referring Physician: Admtr, [id number] [...] (oldterm) 8 03/14/09 Given 1Result Comment: [02/13/2018] [id number] 2Result Comment: [02/08/2017] [facility] [id number] 317 02 3Result Comment: [01/24/2013] ORDERRED BY GINA GAINES MD 4Result Comment: [09/19/2017] [id number] 5Admin Note: vis given 6Admin Note: BIOMEDICAL [...] EDT, Route to Pharmacy Electronically, [facility], 163,cm, 11/22/20 12:47:00 EDT, Height [...] * Event Display: Ultrasound Neck Authored Date: Note * Trisha Traore: PERFORM Event Display: Radiology Results Scanned Authored Date: [id number] Patient Care team information Care Team Personnel Name: Marisa CHAIDEZ, Neto Osorio Position: [facility] Renal MD Member Role: Lifetime Consulting Physician Address: Address: [address] [place] [address], [address] [place] [address]- [place] Name: Lore Clinton RN Position: [facility] RN Member Role: Primary Care Nurse Name: Miles OTOOLE, Bernie Hardy Position: [facility] PCO Associate Professional Member Role: PCP Address: Address: [address] [place] [address]- [place] Name: Gregg Hardy MD Position: [facility] Pulmonary MD Member Role: Lifetime Consulting Physician Address: Address: [address] [place] [address]- Care Team Related Persons Name: MERRITT SINGLETARY Address: home [address] [place] [address] Name: BLAIRE JACOB Address: home [address] [place] [address]
--- OUTSIDE RECORDS SUMMARY | 2024-01-11 13:47 | XMS_ITS | Continuity of Care Document ---
Author Organization [facility] Address [address] [place] [address]- Care Team Providers Care Concrete Worker Name Role Phone Miles OTOOLE, Bernie Hardy Primary Care Physician [phone] Encounter [facility] Date(s): 03/29/23 - 04/28/23 [facility] [address] [place] [address] Allergies, Adverse Reactions, Alerts Substance Reaction Severity [...] (oldterm) 8 03/14/09 Given 1Result Comment: [09/19/2017] [id number] 2Result Comment: [02/13/2018] [id number] 3Result Comment: [02/08/2017] [facility] [id number] 317 02 4Result Comment: [01/24/2013] ORDERRED BY [...] tablet, 1 Refills, Maintenance, 01/01/23 12:44:00 EDT, [facility], 163, cm, 11/13/22 [...] 05/25/22 6:49:00 EST, Route to Pharmacy Electronically, [facility], 163, cm, 04/04/22 7:05:00 EST, [...] 12/01/20 15:40:00 EDT, Route to Pharmacy Electronically, [facility], 163,cm, 11/22/20 12:47:00 EDT, Height [...] tablet, Refills 5, Maintenance, 03/27/23 23:12:00 EST, [facility], [facility] [...] Personnel Name: Marisa CHAIDEZ, Neto Osorio [facility] Renal MD Member Role: Lifetime Consulting Physician Address: Address: [address] [place] [address] [address] [facility] [place] [address]- Name: Lore Clinton RN Position: [facility] RN Member Role: Primary Care Nurse Name: Bernie Aquino NP Position: [facility] PCO Associate Professional Member Role: PCP Address: Address: [address] [place] [address]- Name: Gregg Hardy MD Position: [facility] Pulmonary MD Member Role: Lifetime Consulting Physician Address: Address: [address] [place] [address]- Care Team Related Persons Name: ONDINA SINGLETARY Address: home [address] [place] [address] Name: BLAIRE JACOB Address: home [address] [place] [address]
--- OUTSIDE RECORDS SUMMARY | 2024-01-11 13:47 | XMS_ITS | Continuity of Care Document ---
Author Organization 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 Start Date: 12/03/23 Stop Date: 05/01/24 Status: Ordered colchicine 0.6 mg oral tablet 1, tablet, By Mouth, 2 times a day, # 60 Unknown, Refills 11, Maintenance, 05/21/23 11:57:00 EST, Route to Pharmacy Electronically, [facility], 163, cm, 03/07/23 8:42:00 EDT, [...] EDT, Route to Pharmacy Electronically, [facility], 163, cm, 09/06/23 10:02:00 EDT, [...] tablet, 0 Refills, Maintenance, 08/28/23 13:41:00 EDT, [facility], 163, cm, 08/22/23 8:24:00 EDT, [...] 5 Refills, 09/07/23 10:21:00 EDT, [facility], 163, cm, 09/06/23 10:02:00 EDT, [...] Informant FMF (familial Mediterranean fever) Discharge Diagnosis 12/27/23 Type 2 diabetes mellitus Discharge Diagnosis 12/27/23 Bipolar disorder Discharge Diagnosis 12/27/23 Vital Signs Most recent to oldest [Reference Range]: 1 Height 163 cm (12/26/23 11:27 AM) Weight 82.9 kg (12/26/23 11:27 AM) Oxygen Saturation [94-100 %] 100 % (12/26/23 11:27 AM) Pulse Rate [55-90 bpm] 99 bpm *H* (12/26/23 11:27 AM) Body Mass Index [18.5-24.99 kg/m2] 31.2 kg/m2 *>HHI* (12/26/23 11:27 AM) Blood Pressure [90-138/55-84 mm Hg] 105/ 72mm Hg (12/26/23 11:27 AM) Blood pressure sites Arm, left (12/26/23 11:27 AM) Weight Obtained Via Standing scale (12/26/23 11:27 AM) Social History Social History Type Response Smoking Status Never smoker entered on: 05/12/13 Sex Note * Mary Barbosa: PERFORM Event Display: Patient Education/Instruction Authored Date: [id number] Ambulatory Adult Visit Summary [facility] Adult [facility] [address], [place] [id number] Name: HEMANT LEE : 1975?? Visit: 12/26/2023 11:17?? Ambulatory Visit Instructions ?? Your Care Team Primary Care Provider Miles OTOOLE, Bernie Hardy? This Visit Provider Bernie Aquino NP Your Diagnosis Diabetes insipidus Vitals Signs Pulse Rate:??99 bpm??High Height: 163 cm Systolic Blood Pressure: 105 mm Hg Weight: 82.9 kg Diastolic Blood Pressure: 72 mm Hg Body Mass Index:??31.2 kg/m2??Critical Oxygen Saturation: 100 % Body surface area: 1.94 What to do next Scheduled Follow-Up Appointments Sunday 8:10 AM EDT ?? With: Miles OTOOLE, Bernie Hardy Where: [facility] Razia Jauregui [address] [place] [address]- Status: Pending Future Orders TSH - Routine, Once, 10/29/23 10:14:00 EDT, Single or Recurring Future Order, [facility], Blood?? Free T4 (T4 Free) - Routine, Once, 10/29/23 10:14:00 EDT, Single or Recurring Future Order, [facility], Blood?? Renal Panel (10) - Routine, Once, 12/26/23 12:01:00 EDT, Future Order, [facility], Blood?? Medications The [...] a day as needed for Spasm Unchanged Docusate (Colace sodium 100 mg oral capsule) 1 capsule Oral Twice a day as needed for for constipation Duration: 30 Days Unchanged Durable Medical Equipment (Contour Next test strips) See instructions check blood glucose 3 times a day and a s needed. Dx code E 11.9 ??T2DM ?? Unchanged Epinephrine (EpiPen 2-Juvenal) 0.3 Milligram Intramuscular Once Unchanged Ferrous Sulfate (ferrous sulfate 324 mg (65 mg elemental iron) oral delayed release tablet) 1 tab(s) Oral Daily ordered by GI specialist ?? Unchanged fluticasone/ umeclidinium/ vilanterol (Trelegy Ellipta) Inhalation [...] and 1.5 tablets on sunday ?? Unchanged [place] (lithium 150 mg oral capsule) 3 capsule [...] discuss all test results with your provider. Renal Panel (10)?-- Results Pending -- Medications and Immunizations Administered Medications Given During [...] are strongly encouraged to quit. Please call [facility] Link at [phone] or [phone] ([phone]) or log in to [email or web address] for referrals to smoking cessation programs. ?? The National Suicide Prevention Hotline is available 04/12 if you or someone you know needs to find a reason to keep living. By calling 1-064-601-Incuvo (0294) you'll be connected to a skilled, trained counselor at a crisis center in your area. [facility] Portal You can view and manage your care through the patient portal or by using a health care chinmay of your choosing. [employer] is a website that allows you to securely view your medical information including your hospital discharge summary, office visit summaries, medications and follow-up visits. You can also request appointments, renew medications, and request access to your medical information using a health care chinmay of your choosing, or just ask a question. You can enroll at [email or web address] or register during your next office visit. [facility], in keeping with [facility] guidance, no longer requires face [...] primary care provider, you may find a [facility] provider by calling [facility] Link at [phone]. Patient Care team information Care Team Personnel Name: Neto Cunningham MD Position: [facility] Renal MD Member Role: Lifetime Consulting Physician Address: Address: [address] [place] [address] [address] [place] [address]- [place] Name: Lore Clinton RN Position: [facility] AMB Nurse Member Role: Primary Care Nurse Name: Bernie Aquino NP Position: [facility] PCO Associate Professional Member Role: PCP Address: Address: [address] [place] [address]- [place] Name: Gregg Hardy MD Position: [facility] Pulmonary MD Member Role: Lifetime Consulting Physician Address: Address: [address] [place] [address]- [place] Care Team Related Persons Name: ONDINA SINGLETARY Address: home [address] [place] [address] Name: BLAIRE JACOB Address: home [address] [place] [address]
--- OUTSIDE RECORDS SUMMARY | 2024-01-11 13:47 | XMS_ITS | Continuity of Care Document ---
Author Organization [facility] Address [address] [place] [address]- Care Team Providers Care Dust Box Worker Name Role Phone Miles OTOOLE, Bernie Hardy Primary Care Physician Encounter [facility] Date(s): 11/07/23 - 12/07/23 [facility] [address] [place] [address] Allergies, Adverse Reactions, Alerts Substance Reaction [...] (oldterm) 8 03/14/09 Given 1Result Comment: [09/19/2017] [id number] 2Result Comment: [02/13/2018] [id number] 3Result Comment: [02/08/2017] [facility] [id number] 317 02 4Result Comment: [01/24/2013] ORDERRED BY [...] 10/01/23 18:42:00 EDT, Route to Pharmacy Electronically, [facility], 163, cm, 09/06/23 10:02:00 EDT, [...] 60 capsule, 6 Refills, Maintenance, 10/26/22 11:06:00EDT, [facility], Partial fill upon patient request if the prescription is for a schedule II opioid drug., 163, cm, 09/04/22 7:38:00 EDT,... Start Date: 10/26/22 Status: Ordered ondansetron 4 mg oral tablet 1 tablet, By Mouth, Every 8 hours, # 12 tablet, 0 Refills, Maintenance, 08/28/23 13:41:00 EDT, [facility], 163, cm, 08/22/23 8:24:00 EDT, [...] Marisa CHAIDEZ, Neto Osorio Position: [facility] Renal MD Member Role: Lifetime Consulting Physician Address: Address: [address] [place] [address] [address] [facility] [address]- [place] Name: Lore Clinton RN Position: [facility] AMB Nurse Member Role: Primary Care Nurse Name: Miles OTOOLE, Bernie Hardy Position: [facility] PCO Associate Professional Member Role: PCP Address: Address: [address] [place] [address]- [place] Name: Antony CHAIDEZ, Gregg Position: [facility] Pulmonary MD Member Role: Lifetime Consulting Physician Address: Address: [address] [place] [address]- [place] Care Team Related Persons Name: ONDINA SINGLETARY Address: home [address] [place] [address] Name: BLAIRE JACOB Address: home [address] [place] [address]
--- OUTSIDE RECORDS SUMMARY | 2024-01-11 13:47 | XMS_ITS | Continuity of Care Document ---
Author Organization [facility] Juventino David lt Address [address] [place] [address]- Care Team Providers Care Performance Improvement Coordinator Name Role Phone Miles OTOOLE, Bernie Hardy Primary Care Physician [phone] Encounter [facility] Date(s): 04/28/22 - 05/28/22 [facility] Adult [address] [place] [address]- Allergies, Adverse Reactions, Alerts Substance Reaction Severity Status azithromycin 1 increases sx's Active morphine vomiting Active Reglan double vision Active Flonase rhinitis Active Augmentin 2 increases [...] (oldterm) 8 03/14/09 Given 1Result Comment: [02/13/2018] [id number] 2Result Comment: [02/08/2017] [facility] [id number] 317 02 3Result Comment: [01/24/2013] ORDERRED BY GINA GAINES MD 4Result Comment: [09/19/2017] [id number] 5Admin Note: vis given 6Admin Note: BIOMEDICAL [...] [facility], 163, cm, 04/04/22 7:05:00 EST, [...] 12/01/20 15:40:00 EDT, Route to Pharmacy Electronically, [facility], 163,cm, 11/22/20 12:47:00 EDT, Height [...] EDT, Route to Pharmacy Electronically, [facility], Partial fill upon patient request [...] Personnel Name: Marisa CHAIDEZ, Neto Osorio Position: [facility] Renal MD Member Role: Lifetime Consulting Physician Address: Address: [address] [place] [address], [address] [place] [address]- [place] Name: Lore Clinton RN Position: [facility] RN Member Role: Primary Care Nurse Name: Bernie Aquino NP Position: [facility] PCO Associate Professional Member Role: PCP Address: Address: [address] [place] [address]- [place] Name: Gregg Hardy MD Position: [facility] Pulmonary MD Member Role: Lifetime Consulting Physician Address: Address: [address] [place] [address]- [place] Care Team Related Persons Name: MERRITT SINGLETARY Address: home [address] [place] [address] Name: BLAIRE JACOB Address: home [address] [place] [address]
--- OUTSIDE RECORDS SUMMARY | 2024-01-11 13:47 | XMS_ITS | Continuity of Care Document ---
Author Organization [facility] Juventino David lt Address [address] [place] [address]- Care Team Providers Care Patient Ombudsperson Name Role Phone Miles OTOOLE, Bernie Hardy Primary Care Physician Encounter [facility] Date(s): 12/03/23 - 01/02/24 [facility] Adult [address] [place] [address]- Allergies, Adverse Reactions, Alerts Substance Reaction Severity [...] (oldterm) 8 03/14/09 Given 1Result Comment: [09/19/2017] [id number] 2Result Comment: [02/13/2018] [id number] 3Result Comment: [02/08/2017] [facility] [id number] 317 02 4Result Comment: [01/24/2013] ORDERRED BY [...] EDT, Route to Pharmacy Electronically, [facility], Partial fill upon patient request if the prescr... Start Date: 12/03/23 Stop Date: 05/01/24 Status: Ordered colchicine 0.6 mg oral tablet 1, tablet, By Mouth, 2 times a day, # 60 Unknown, Refills 11, Maintenance, 05/21/23 11:57:00 EST, Route to Pharmacy Electronically, [facility], 163, cm, 03/07/23 8:42:00 [...] EDT, Route to Pharmacy Electronically, [facility], 163, cm, 09/06/23 10:02:00 EDT, [...] 120 tablet, 5 Refills, 09/07/23 10:21:00 EDT, [facility], 163, cm, 09/06/23 10:02:00 EDT, [...] Team Personnel Name: Neto Cunningham MD Position: [facility] Renal MD Member Role: Lifetime Consulting Physician Address: Address: [address] [place] [address] [address] [facility] [place] [address]- [place] Name: Lore Clinton RN Position: [facility] AMB Nurse Member Role: Primary Care Nurse Name: Bernie Aquino NP Position: [facility] PCO Associate Professional Member Role: PCP Address: Address: [address] [place] [address]- [place] Name: Gregg Hardy MD Position: [facility] Pulmonary MD Member Role: Lifetime Consulting Physician Address: Address: [address] [place] [address]- Care Team Related Persons Name: ONDINA SINGLETARY Address: home [address] [place] [address] Name: BLAIRE JACOB Address: home [address] [place] [address]
--- OUTSIDE RECORDS SUMMARY | 2024-01-11 13:47 | XMS_ITS | Continuity of Care Document ---
Author Organization [facility] [place] David lt Address [address] [place] [address]- Care Team Providers Care Detective Chief Name Role Phone Miles OTOOLE, Bernie Hardy Primary Care Physician Encounter [facility] Date(s): 04/04/22 - 04/11/22 [facility] Adult [address] [place] [address]- Encounter Diagnosis Nephrogenic diabetes insipidus(Discharge Diagnosis) - 04/04/22 Type 2 diabetes mellitus(Discharge Diagnosis) - 04/04/22 Muscle twitching(Discharge Diagnosis) - 04/04/22 Attending Physician: Not on Staff, Attending MD [...] (oldterm) 8 03/14/09 Given 1Result Comment: [02/13/2018] [id number] 2Result Comment: [02/08/2017] [facility] [id number] 317 02 3Result Comment: [01/24/2013] ORDERRED BY GINA GAINES MD 4Result Comment: [09/19/2017] [id number] 5Admin Note: vis given 6Admin Note: BIOMEDICAL [...] Effective Dates Health Status Clinical Service Informant Nephrogenic diabetes insipidus Discharge Diagnosis 04/04/22 Type 2 diabetes mellitus Discharge Diagnosis 04/04/22 Muscle twitching Discharge Diagnosis 04/04/22 Vital Signs Most recent to oldest [Reference Range]: 1 Height 163 cm (04/04/22 7:05 AM) Weight 81.3 kg (04/04/22 7:05 AM) Oxygen Saturation [94-100 %] 98 % (04/04/22 7:05 AM) Pulse Rate [55-90 bpm] 89 bpm (04/04/22 7:05 AM) Body Mass Index [18.5-24.99 kg/m2] 30.6 kg/m2 *>HHI* (04/04/22 7:05 AM) Blood Pressure [90-138/55-84 mm Hg] 116/ 77mm Hg (04/04/22 7:05 AM) Blood pressure sites Arm, left (04/04/22 7:05 AM) Weight Obtained Via Standing scale (04/04/22 7:05 AM) Social History Social History Type Response Smoking Status Never smoker entered on: 05/12/13 Sex Note * Merly Mccoy: PERFORM, SIGN, VERIFY Event Display: Patient Education/Instruction Authored Date: [id number] [facility] *BMP So Juventino Recinos Clinical Summary Name HEMANT LEE Age 46 Years 1975 PCP Miles OTOOLE, Bernie Hardy PCP Visit Date 04/04/2022 06:53:00 Additional Instructions: Scheduled Appointments?? Future Appointments ?*[facility] ?[address]??[place],??[place],??[address] ?Phone:??--?Fax:??-- ?Appt. Date:??05/02/2022?1:00 PM ?Scheduled Provider:??Rober CHAIDEZ, Nunu Gaytan ?*BMP??So??[facility]lt ?[address],??[place],??[address] ?Phone:??--?Fax:??-- ?Appt. Date:??05/17/2022?8:50 AM ?Scheduled Provider:??Miles OTOOLE , Bernie He Follow-Up Instructions ?? Diagnosis Medications: Please continue your medications until [...] is still present. Refills: 0. Next Dose: Atorvastatin (atorvastatin 20 mg oral tablet) 1 tab(s) Oral Daily. replace 10mg. Refills: 3. Next Dose: Benztropine 5 Milligram Oral twice a day. Next Dose: Benztropine (benztropine 0.5 mg oral [...] 2-Juvenal) 0.3 Milligram Intramuscular once. Next Dose: Famotidine (Pepcid 20 mg oral tablet) 1 tab(s) Oral twice a day. Next Dose: Fluconazole (fluconazole 150 mg oral tablet) 1 tab(s) Oral once. epeat dose if still having symptoms in 72 hours. Refills: 0. Next Dose: fluticasone/umeclidinium/vilanterol (Trelegy Ellipta) Inhalation Daily. Next Dose: Hydrochlorothiazide (hydrochlorothiazide 25 mg oral tablet) 1 tab(s) Oral Daily. Next Dose: HydrOXYzine (hydrOXYzine hydrochloride 10 mg oral tablet) 1 tab(s) Oral Daily at Bedtime. Next Dose: HydrOXYzine (hydrOXYzine pamoate 50 mg oral capsule) 1 capsule Oral 3 times a day. prn. Next Dose: Immune Globulin Intramuscular 20 GRAMS EVERY 3 WEEKS. Next Dose: Lamotrigine (LaMICtal 100 mg oral tablet) 4 tab(s) Oral Daily at Bedtime. Next Dose: Lamotrigine (LaMICtal 200 mg oral tablet) 3 tab(s) Oral Daily at Bedtime. Next Dose: Melatonin (Melatonin 10 mg oral [...] oral tablet) 1.5 tabs BID. Next Dose: Oxycodone (oxyCODONE 5 mg oral tablet) 1 tab(s) Oral every 6 hours as needed Pain , Moderate. Next Dose: Potassium Chloride (potassium chloride 10 mEq oral capsule, extended release) 2 capsule Oral Daily for 30 Days. Refills: 1. Next Dose: rimegepant (Nurtec ODT) 75 Milligram Oral once. 1 TAB EVERY OTHER DAY. Next Dose: Rizatriptan (rizatriptan 10 mg oral tablet) 1 tab(s) Oral. PRN. Next Dose: sitagliptin (Januvia 100 mg oral tablet) 1 tab(s) Oral Daily for 30 Days. replace 50mg. Refills: 6. Next Dose: sitagliptin (Januvia 50 mg oral tablet) 1 tab(s) Oral Daily. Refills: 3. Next Dose: Topiramate (topiramate 200 mg oral tablet) 1 tab(s) Oral Daily at Bedtime. Next Dose: Topiramate (topiramate 50 mg oral tablet) TAKE 1 TABLET IN THE MORNING AND 3 TABLETS AT BEDTIME.. Refills: 5. Next Dose: Topiramate (topiramate 50 mg oral tablet) 1 tab(s) Oral Daily in the morning. Next Dose: Allergy Info:?? Cats; Adhesive Bandage; Demerol HCl; Reglan; Augmentin; Flonase; morphine; azithromycin Medications Given This Visit Future Orders ?No future orders Vital Signs Height 163 cm Weight 81.3 kg BMI 30.6 kg/m2 Blood Pressure 116 mm Hg/77 mm Hg Temperature Pulse Rate 89 bpm Respiratory Rate 02 Sat Mode of Delivery 98 %/ You can now view a summary of your hospital visit from the comfort of your home through a free online portal called iDoc24. iDoc24 is a website that allows you to securely view your medical information including discharge summary, medications and follow-up visits. ??You can alsosend a secure electronic message to your doctor???s office to request appointments, renew medications or just ask a question. You can enroll at [email or web address] or register during your next office [...] [facility] provider by calling [facility] at [phone]. For information about the plan of care [...] Role: Lifetime Consulting Physician Address: Address: [address] [place] [address]- [place] Name: Oz SHERWOOD, Lore Position: [facility] RN Member Role: Primary Care Nurse Name: Miles OTOOLE, Bernie Hardy Position: [facility] PCO Associate Professional Member Role: PCP Address: Address: [address] [place] [address]- [place] Name: Gregg Hardy MD Position: [facility] Pulmonary MD Member Role: Lifetime Consulting Physician Address: Address: [address] [place] [address]- Care Team Related Persons Name: MERRITT SINGLETARY Address: home [address] [place] [address] Name: BLAIRE JACOB Address: home [address] [place] [address]
--- OUTSIDE RECORDS SUMMARY | 2024-01-11 13:47 | XMS_ITS | Continuity of Care Document ---
Author Organization [facility] David lt Address [address] [place] [address]- Care Team Providers Care Dough Scaler And Mixer Name Role Phone Miles OTOOLE, Bernie Hardy Primary Care Physician [phone] [facility] Date(s): 03/30/22 - 04/29/22 [facility] Adult [address] [place] [address]- Allergies, Adverse Reactions, Alerts Substance Reaction Severity [...] (oldterm) 8 03/14/09 Given 1Result Comment: [02/13/2018] [id number] 2Result Comment: [02/08/2017] [facility] [id number] 317 02 3Result Comment: [01/24/2013] ORDERRED BY GINA GAINES MD 4Result Comment: [09/19/2017] [id number] 5Admin Note: vis given 6Admin Note: BIOMEDICAL [...] Personnel Name: Marisa CHAIDEZ, Neto Osorio Position: [facility] Renal MD Member Role: Lifetime Consulting Physician Address: Address: [address] [place] [address], [address] [place] [address]- [place] Name: Lore Clinton RN Position: [facility] RN Member Role: Primary Care Nurse Name: Miles OTOOLE, Bernie Hardy Position: [facility] PCO Associate Professional Member Role: PCP Address: Address: [address] [place] [address]- [place] Name: Gregg Hardy MD Position: [facility] Pulmonary MD Member Role: Lifetime Consulting Physician Address: Address: [address] [place] [address]- Care Team Related Persons Name: MERRITT SINGLETARY Address: [address] [place] [address] Name: BLAIRE JACOB Address: home [address] [place] [address]
--- OUTSIDE RECORDS SUMMARY | 2024-01-11 13:47 | XMS_ITS | Continuity of Care Document ---
Author Organization [facility] Address [address] [place] [address]- Care Team Providers Care Wicker Worker Name Role Phone Miles OTOOLE, Bernie Hardy Primary Care Physician [phone] Encounter [facility] Date(s): 07/18/21 - 08/17/21 [facility] [address] [place] [address] Attending Physician: Brooklyn Shankar Admitting Physician: AdmtrBrooklyn [...] (oldterm) 8 03/14/09 Given 1Result Comment: [02/13/2018] [id number] 2Result Comment: [02/08/2017] [facility] [id number] 317 02 3Result Comment: [01/24/2013] ORDERRED BY GINA GAINES MD 4Result Comment: [09/19/2017] [id number] 5Admin Note: vis given 6Admin Note: BIOMEDICAL [...] Refills, Maintenance, 02/10/21 15:07:00 EDT, [facility], 163, cm, 02/10/21 14:31:00 EDT, [...] 02/23/21 16:10:00 EDT, Route to Pharmacy Electronically, [facility], Rx resent from 07/26/20, 163, cm, 02/21/21 15:42:00 EDT, Height, 81, kg, 09... Start Date: 02/23/21 Status: Ordered topiramate 50 mg oral tablet See Instructions, TAKE 1 TABLET IN THE MORNING AND 3 TABLETS AT BEDTIME., # 120 tablet, 5 Refills, [facility], 163, cm, 06/13/21 9:32:00 EST, [...] 5 Refills, Maintenance, 08/08/21 15:48:00 EDT, Solution, [facility], Partial fill upon patient request [...]
--- OUTSIDE RECORDS SUMMARY | 2024-01-11 13:47 | XMS_ITS | Continuity of Care Document ---
Author Organization [facility] Juventino David lt Address [address] [place] [address]- Care Team Providers Care Mental Health Program Specialist Name Role Phone Gina Bhat MD Primary Care Physician [facility] Date[facility] 06[facility]19 - 06/14/19 [facility] Adult [address] [place] [address]- [facility] Attending Physician: Brooklyn Shankar Admitting Physician: AdmtrBrooklyn [...] (oldterm) 8 03/14/09 Given 1Result Comment: [02/13/2018] [id number] 2Result Comment: [02/08/2017] [facility] [id number] 317 02 3Result Comment: [01/24/2013] ORDERRED BY GINA BHAT MD 4Result Comment: [09/19/2017] [id number] 5Admin Note: vis given 6Admin Note: BIOMEDICAL MARIELLA 7Admin Note: H1N1 8Admin Note: elsewhere Medications benztropine 1 mg oral tablet See Instructions, 1 1/2 tab in AM and 1 tab in pm, # 45 each, 5 Refills, Maintenance, 04/23/13 9:30:27 EST Start Date: 04/23/13 Status: Ordered Colcrys 0.6 mg oral tablet 0.6 mg, 1, tablet, By Mouth, 2 times a day, NAME BRAND MEDICALLY NECESSARY NO SUBSTITUTION, # 60 tablet, Refills 11, Tot. Refills 11, Maintenance, 07/24/18 12:13:57 EDT, Route to Pharmacy Electronically, [id number], [facility] Start Date: 07/24/18 Status: Ordered Contour Next EZ Test Strips [...] 01/06/19 11:51:55 EDT, Route to Pharmacy Electronically, [id number], [facility] Start Date: 01/06/19 Status: Ordered [...] 0 Refills, Soft Stop, 06/06/19 10:53:00 EST, Tablet,[facility], 163, cm, 06/04/19 8:19:00 EST, Height, 82.6, kg, 05/24/18 7:14:00 EST, Dry Weight Start Date: 06/06/19 Status: Ordered folic acid 1 mg oral tablet 4 mg, 4, tablet, By Mouth, Daily, # 120 tablet, Refills 5, Tot. Refills 5, Maintenance, 05/22/19 16:08:00 EST, Route to Pharmacy Electronically, [facility], Patient prescribed increased dose secondary [...] Daily, # 90 tablet, 3 Refills, Maintenance, Tablet, Route to Pharmacy Electronically, [id number], [facility] Start Date: 07/31/18 Status: Ordered lisinopril 2.5 mg oral tablet 2.5 mg, 1, tablet, By Mouth, Daily, # 30 tablet, Refills 11, Tot. Refills 11, Maintenance, 10/10/1915:45:18 EDT, Route to Pharmacy Electronically, [id number], [facility] Start Date: [...] a day, # 180 capsule, 3 Refills, Soft Stop, 05/09/19 10:00:00 EST, [facility], 163, cm, 03/26/19 13:53:00 EST, Height, 82.6, kg, 05/24/18 7:14:00 EST, Dry Weight Start Date: 05/09/19 Status: Ordered oseltamivir 75 mg oral capsule TAKE ONE CAPSULE BY MOUTH TWICE A DAY FOR 5 DAYS Start Date: 06/04/19 Status: Ordered oxyCODONE 5 mg oral tablet 5 mg, 1, tablet, By Mouth, Every 6 hours, PRN, DX: Migraines G43.909 OK to fill less than prescribed amount, # 12 tablet, Refills 0, Tot. Refills 0, Maintenance, for pain, 05/19/16 16:15:06, Print Requisition Start Date: 05/19/16 Status: Ordered Pen [place], 31 G x 5 mm BD Ultra Fine III See Instructions, # 150 each, Refills 6, Tot. Refills 6, Maintenance, for use 4x daily with Lantus and humalog insulin E11.65, 06/24/18 10:09:38 EST, Compound Start Date: 06/24/18 Status: Ordered predniSONE 20 mg oral tablet TAKE TWO TABLETS BY MOUTH EVERY DAY FOR 5 DAYS Start Date: 06/04/19 Status: Ordered Singulair 10 mg oral tablet 10 mg, 1, tablet, By Mouth, Daily in PM, # 30 tablet, Refills 11, Tot. Refills 11, Maintenance, 05/30/19 11:43:00 EST, Route to Pharmacy Electronically, [facility], 163, cm, 05/30/19 11:08:00 EST, Height, 82.6, kg, 05/24/18 7:14:00 EST,... Start Date: 05/30/19 Status: Ordered SUMAtriptan 100 mg oral tablet 1 tablet, By Mouth, Daily, PRN NEEDED FOR MIGRAINE, # 9 tablet, Refills 11 Tot. Refills 11, MAY REPEAT DOSE IN 2 HOURS IF NEEDED, [facility] Start Date: 04/14/19 Status: Ordered [...]
--- OUTSIDE RECORDS SUMMARY | 2024-01-11 13:47 | XMS_ITS | Continuity of Care Document ---
Author Organization [facility] Juventino David Address [address] [place] [address]- Care Team Providers Care Couples Therapist Name Role Phone Miles OTOOLE, Bernie Hardy Primary Care Physician [facility] Date(s): 08/21/23 - 09/20/23 [facility] Adult [address] [place] [address]- Allergies, Adverse Reactions, Alerts Substance Reaction Severity Status azithromycin 1 increases sx's Active Cats sneezing Active NSAIDs Active morphine [...] (oldterm) 8 03/14/09 Given 1Result Comment: [09/19/2017] [id number] 2Result Comment: [02/13/2018] [id number] 3Result Comment: [02/08/2017] [facility] [id number] 317 02 4Result Comment: [01/24/2013] ORDERRED BY [...] EST, Route to Pharmacy Electronically, [facility], 163, cm, 03/07/23 8:42:00 EDT, [...] 12/01/20 15:40:00 EDT, Route to Pharmacy Electronically, [facility], 163,cm, 11/22/20 12:47:00 EDT, Height [...] tablet, Refills 5, Maintenance, 03/27/23 23:12:00 EST, [facility], [facility], [...] Role: Lifetime Consulting Physician Address: Address: [address] [place] [address] [address] [facility] [place] [address]- Name: Oz SHERWOOD, Lore Position: [facility] RN Member Role: Primary Care Nurse Name: Miles OTOOLE, Bernie Hardy Position: [facility] PCO Associate Professional Member Role: PCP Address: Address: [address] [place] [address]- Name: Gregg Hardy MD Position: [facility] Pulmonary MD Member Role: Lifetime Consulting Physician Address: Address: [address] [place] [address]- Care Team Related Persons Name: ONDINA SINGLETARY Address: home [address] [place] [address] Name: BLAIRE JACOB Address: [address] [place] [address]
--- OUTSIDE RECORDS SUMMARY | 2024-01-11 13:47 | XMS_ITS | Continuity of Care Document ---
Author Organization [facility] Juventino David lt Address [address] [place] [address]- Care Team Providers Care Die Cutting Machine Operator Name Role Phone Perlita CHAIDEZ, Gina Smith Primary Care Physician [phone] [facility]counter [facility] Date(s): 04/05/21 - 05/05/21 [facility] Adult [address] [place] [address]- Attending Physician: Elijah VISCOSE CELLAR CHARGE HAND, Nicole Calvillo Allergies, Adverse Reactions, Alerts Substance Reaction Severity [...] (oldterm) 8 03/14/09 Given 1Result Comment: [02/13/2018] [id number] 2Result Comment: [02/08/2017] [facility] [id number] 317 02 3Result Comment: [01/24/2013] ORDERRED BY GINA GAINES MD 4Result Comment: [09/19/2017] [id number] 5Admin Note: vis given 6Admin Note: BIOMEDICAL [...] 11:52:00EDT, Route to Pharmacy Electronically, [facility], 163, cm, 09/23/20 9:42:00 EDT,Height [...] Weight Start Date: 03/16/21 Status: Ordered Pen [place], 31 G x 5 mm BD Ultra Fine III See Instructions, # 150 each, Refills 6, Tot. Refills 6, Maintenance, for use 4x daily with Lantus and humalog insulin E11.65, 06/24/18 10:09:38 EST, Compound Start Date: 06/24/18 Status: Ordered Pen [place], 31 G x 5 mm BD Ultra [...] 02/23/21 16:10:00 EDT, Route to Pharmacy Electronically, [facility], Rx resent from 07/26/20, 163, cm, 02/21/21 15:42:00 EDT, Height, 81, kg, 09... Start Date: 02/23/21 Status: Ordered SUMAtriptan 100 mg oral tablet 1 tablet, By Mouth, Daily, PRN NEEDED FOR MIGRAINE, Patient is having more that 10 migraines permonth. MAY REPEAT DOSE IN 2 HOURS IF NEEDED, # 18 tablet, 11 Refills, Soft Stop, 04/19/21 13:11:00 EST, [facility], 163, cm, 04/15/21 11... Start Date: 04/19/21 Status: Ordered topiramate 50 mg oral tablet See Instructions, 1 tablet in morning, 3 tablets at bedtime, # 120 tablet, 5 Refills, Maintenance, 01/21/21 15:35:00 EDT, [facility], 163, cm, 11/22/20 12:47:00 EDT, [...] opioid drug. Start Date: 01/28/21 Status: Ordered Trulicity Pen 0.75 mg/0.5 mL [...]
--- OUTSIDE RECORDS SUMMARY | 2024-01-11 13:48 | XMS_ITS | Continuity of Care Document ---
Author Organization [facility] Juventino David lt Address [address] [place] [address]- Care Team Providers Care Medical Numerical Control Operator Name Role Phone Miles OTOOLE, Bernie Hardy Primary Care Physician [facility] Date(s): 06/06/22 - 07/06/22 [facility] Adult [address] [place] [address]- Allergies, Adverse Reactions, Alerts Substance Reaction Severity [...] (oldterm) 8 03/14/09 Given 1Result Comment: [09/19/2017] [id number] 2Result Comment: [02/13/2018] [id number] 3Result Comment: [02/08/2017] [facility] [id number] 317 02 4Result Comment: [01/24/2013] ORDERRED BY [...] 05/25/22 6:49:00 EST, Route to Pharmacy Electronically, [facility], 163, cm, 04/04/22 7:05:00 EST, [...] 12/01/20 15:40:00 EDT, Route to Pharmacy Electronically, [facility], 163,cm, 11/22/20 12:47:00 EDT, Height [...] Maintenance,03/17/22 6:52:00 EDT, Route to Pharmacy Electronically, [facility], Partial fill upon patient request [...] 60 capsule, 0 Refills, Maintenance, 09/02/21 10:08:00EDT, [facility], Partial fill upon patient request if the prescription is for a schedule II opioid drug., 163, cm, 08/29/21 11:01:00 EDT,... Start Date: 09/02/21 Status: Ordered ondansetron 8 mg oral tablet See Instructions, TAKE 1 TABLET BY MOUTH 3 TIMES A DAY NEEDED FOR NAUSEA AND VOMITING, # 30 tablet, 0 Refills, [facility], 163, cm, 06/07/21 14:40:00 EST, [...] Personnel Name: Marisa CHAIDEZ, Neto Osorio Position: [facility] Renal MD Member Role: Lifetime Consulting Physician Address: Address: [address] [place] [address], [address] [place] [address]- [place] Name: Lore Clinton RN Position: [facility] RN Member Role: Primary Care Nurse Name: Miles OTOOLE, Bernie Hardy Position: [facility] PCO Associate Professional Member Role: PCP Address: Address: [address] [place] [address]- [place] Name: Gregg Hardy MD Position: [facility] Pulmonary MD Member Role: Lifetime Consulting Physician Address: Address: [address] [place] [address]- Care Team Related Persons Name: MERRITT SINGLETARY Address: home [address] [place] [address] Name: BLAIRE JACOB Address: home [address] [place] [address]
--- OUTSIDE RECORDS SUMMARY | 2024-01-11 13:48 | XMS_ITS | Continuity of Care Document ---
Author Organization [facility] David lt Address [address] [place] [address]- Care Team Providers Care Product Safety Expert Name Role Phone Gina Bhat MD Primary Care Physician [facility]s): 01/23/20 - 02/22/20 [facility] Adult [address] [place] [address]- [facility] Allergies, Adverse Reactions, Alerts Substance Reaction Severity [...] (oldterm) 8 03/14/09 Given 1Result Comment: [02/13/2018] [id number] 2Result Comment: [02/08/2017] [facility] [id number] 317 02 3Result Comment: [01/24/2013] ORDERRED BY GINA HBAT MD 4Result Comment: [09/19/2017] [id number] 5Admin Note: vis given 6Admin Note: BIOMEDICAL [...] Soft Stop, 12/29/19 16:39:00 EDT, [facility], 163, cm, 12/15/19 9:18:00 EDT, [...] EDT, Route to Pharmacy Electronically, [facility], 163, cm, 10/01/19 13:40:00 EDT, [...] 1 Refills, Maintenance, 07/20/19 23:41:00 EDT, Tablet, [facility], 163, cm, 07/11/19 11:24:00 EST, Height, 82.6, kg, 05/24/18 7:14:00EST, Dry Weight Start Date: 07/20/19 Status: Ordered lisinopril 2.5 mg oral tablet 2.5 mg, 1, tablet, By Mouth, Daily, # 30 tablet, Refills 11, Tot. Refills 11, Maintenance, 10/02/2013:10:00 EDT, Route to Pharmacy Electronically, [facility], 163, cm, 10/01/19 13:40:00 [...] tablet, 2 Refills, Maintenance, 12/29/19 13:42:00 EDT, [facility], 163, cm, 12/15/19 9:18:00 [...] Requisition Start Date: 05/19/16 Status: Ordered Pen [place], 31 G x 5 mm BD Ultra Fine III See Instructions, # 150 each, Refills 6, Tot. Refills 6, Maintenance, for use 4x daily with Lantus and humalog insulin E11.65, 06/24/18 10:09:38 EST, Compound Start Date: 06/24/18 Status: Ordered Pen [place], 31 G x 5 mm BD Ultra [...] 05/30/19 11:43:00 EST, Route to Pharmacy Electronically, [facility], 163, cm, 05/30/19 11:08:00 EST, Height, 82.6, kg, 05/24/18 7:14:00 EST,... Start Date: 05/30/19 Status: Ordered SUMAtriptan 100 mg oral tablet 1 tablet, By Mouth, Daily, PRN NEEDED FOR MIGRAINE, # 9 tablet, Refills 11 Tot. Refills 11, MAY REPEAT DOSE IN 2 HOURS IF NEEDED, [facility] Start Date: 04/14/19 Status: Ordered topiramate 50 mg oral tablet See Instructions, 1 tablet in morning, 3 tablets at bedtime, # 120 tablet, 5 Refills, Maintenance, 12/30/19 9:06:00 EDT, [facility], 163, cm, 12/15/19 9:18:00 EDT, [...]
--- OUTSIDE RECORDS SUMMARY | 2024-01-11 13:48 | XMS_ITS | Continuity of Care Document ---
Author Organization [facility] Juventino David lt Address [address] [place] [address]- Care Team Providers Care Transportation Operations Manager Name Role Phone Miles OTOOLE, Bernie Hardy Primary Care Physician [place] [facility] [place] 01/13/22 [facility] Adult [address] [place] [address]- Attending Physician: Admtr, Dillan8 Admitting Physician: Admtr, [place] Referring Physician: Admtr, Ar8 Allergies, Adverse Reactions, Alerts Substance Reaction Severity Status azithromycin 1 increases sx's Active morphine vomiting Active Flonase rhinitis Active Cats sneezing Active Augmentin 2 increases sx Active Reglan [...] (oldterm) 8 03/14/09 Given 1Result Comment: [02/13/2018] [id number] 2Result Comment: [02/08/2017] [facility] [id number] 317 02 3Result Comment: [01/24/2013] ORDERRED BY GINA GAINES MD 4Result Comment: [09/19/2017] [id number] 5Admin Note: vis given 6Admin Note: BIOMEDICAL [...] 12/01/20 15:40:00 EDT, Route to Pharmacy Electronically, [facility], 163,cm, 11/22/20 12:47:00 EDT, Height [...] Refills, Soft Stop, 11/01/20 15:04:00 EDT, Tablet, [facility], Partial fill upon [...] Team Personnel Name: Bernie Aquino NP Address: [address] [place] [address]-
--- OUTSIDE RECORDS SUMMARY | 2024-01-11 13:48 | XMS_ITS | Continuity of Care Document ---
Author Organization [facility] ter Address [address] [place] [address]- Care Team Providers Care Civil Rights Investigator Name Role Phone Miles OTOOLE, Bernie Hardy Primary Care Physician Encounter [facility] [place] Date(s): 06/29/23 - 06/29/[address] [address] Attending Physician: Not on Staff, Attending MD Allergies, Adverse Reactions, Alerts Substance Reaction Severity Status azithromycin 1 increases sx's Active morphine vomiting Active Flonase rhinitis Active Demerol HCl vomiting Active NSAIDs Active Augmentin 2 increases sx Active Reglan [...] (oldterm) 8 03/14/09 Given 1Result Comment: [09/19/2017] [id number] 2Result Comment: [02/13/2018] [id number] 3Result Comment: [02/08/2017] [facility] [id number] 317 02 4Result Comment: [01/24/2013] ORDERRED BY [...] EST, Route to Pharmacy Electronically, [facility], 163, cm, 03/07/23 8:42:00 EDT, [...] 5, Maintenance, 03/27/23 23:12:00 EST, [facility], [facility] [...] Team Personnel Name: Neto Cunningham MD Position: [facility] Renal MD Member Role: Lifetime Consulting Physician Address: Address: [address] [place] [address] [address] [place] [address]- [place] Name: Lore Clinton RN Position: [facility] RN Member Role: Primary Care Nurse Name: Bernie Aquino NP Position: [facility] PCO Associate Professional Member Role: PCP Address: Address: [address] [place] [address]- [place] Name: Gregg Hardy MD Position: [facility] Pulmonary MD Member Role: Lifetime Consulting Physician Address: Address: [address] [place] [address]- Care Team Related Persons Name: NODINA SINGLETARY Address: home [address] [place] [address] Name: BLAIRE JACOB Address: home [address] [place] [address]
--- OUTSIDE RECORDS SUMMARY | 2024-01-11 13:48 | XMS_ITS | Continuity of Care Document ---
Author Organization [facility] Juventino David lt Address [address] [place] [address]- Care Team Providers Care Travel Guide Name Role Phone Miles OTOOLE, Bernie Hardy Primary Care Physician [facility]counter [facility] Date(s): 11/15/21 - 12/15/21 [facility] Adult [address] [place] [address]- Allergies, Adverse Reactions, Alerts Substance Reaction Severity [...] (oldterm) 8 03/14/09 Given 1Result Comment: [02/13/2018] [id number] 2Result Comment: [02/08/2017] [facility] [id number] 317 02 3Result Comment: [01/24/2013] ORDERRED BY GINA GAINES MD 4Result Comment: [09/19/2017] [id number] 5Admin Note: vis given 6Admin Note: BIOMEDICAL [...] Date: 07/13/21 Stop Date: 01/09/22 Status: Ordered Cipro 250 mg oral tablet 1 tablet = 250 mg, By Mouth, Every 12 hours, for 5 days, # 10 tablet, 0 Refills, Acute 12/19/21 7:57:00 EDT, 12/14/21 7:57:00 EDT, [facility], Partial fill upon patient request if the prescription is for a schedule II opioid drug., 163,... Start Date: 12/14/21 Stop Date: 12/19/21 Status: Ordered Clonazepam = 0.25 mg, By [...] Unknown, Refills 11, Route to Pharmacy Electronically, [facility], 163, cm, 04/15/21 11:42:00 EST, [...] 12/01/20 15:40:00 EDT, Route to Pharmacy Electronically, [facility], 163,cm, 11/22/20 12:47:00 EDT, Height [...]
--- OUTSIDE RECORDS SUMMARY | 2024-01-11 13:48 | XMS_ITS | Continuity of Care Document ---
Author Organization [facility] ter Address [address] [place] [address]- Care Team Providers Care Lunch Counter Manager Name Role Phone Gina Bhat MD Primary Care Physician Encounter [facility] Date(s): 06/30/19 - 06/30/[address] [address]- [facility] Attending Physician: Gina Bhat MD Allergies, [...] Given influ virus vac, H1N1, inactive(oldterm) 7 12/22/09 Given Influenza Virus Vaccine (oldterm) 8 03/14/09 Given 1Result Comment: [02/13/2018] [id number] 2Result Comment: [02/08/2017] [facility] [id number] 317 02 3Result Comment: [01/24/2013] ORDERRED BY GINA BHAT MD 4Result Comment: [09/19/2017] [id number] 5Admin Note: vis given 6Admin Note: BIOMEDICAL [...] 07/24/18 12:13:57 EDT, Route to Pharmacy Electronically, [id number], [facility] Start Date: 07/24/18 Status: [...] 01/06/19 11:51:55 EDT, Route to Pharmacy Electronically, [id number], [facility] Start Date: 01/06/19 Status: Ordered [...] Soft Stop, 06/06/19 10:53:00 EST, Tablet,[facility], 163, cm, 06/04/19 8:19:00 EST, Height, 82.6, kg, 05/24/18 7:14:00 EST, Dry Weight Start Date: 06/06/19 Status: Ordered folic acid 1 mg oral tablet 4 mg, 4, tablet, By Mouth, Daily, # 120 tablet, Refills 5, Tot. Refills 5, Maintenance, 05/22/19 16:08:00 EST, Route to Pharmacy Electronically, [facility], Patient prescribed increased dose secondary [...] Refills, Maintenance, Tablet, Route to Pharmacy Electronically, [id number], [facility] Start Date: 07/31/18 Status: Ordered lisinopril 2.5 mg oral tablet 2.5 mg, 1, tablet, By Mouth, Daily, # 30 tablet, Refills 11, Tot. Refills 11, Maintenance, 10/10/1915:45:18 EDT, Route to Pharmacy Electronically, [id number], [facility] Start Date: [...] Requisition Start Date: 05/19/16 Status: Ordered Pen [place], 31 G x 5 mm BD Ultra [...] 05/30/19 11:43:00 EST, Route to Pharmacy Electronically, [facility], 163, cm, 05/30/19 11:08:00 EST, [...] 0 Refills, Maintenance, 08/03/17 11:58:28 Start Date: 3/23/18 Status: Ordered Vraylar 3 mg oral capsule [...]
--- OUTSIDE RECORDS SUMMARY | 2024-01-11 13:48 | XMS_ITS | Continuity of Care Document ---
Author Organization [facility] David Address [address] [place] [address]- Care Team Providers Care Foundry Equipment Mechanic Name Role Phone Miles OTOOLE, Bernie Hardy Primary Care Physician Encounter [facility] [place] Date(s): 10/15/23 - 11/14/23 [facility] Adult [address] [place] [address]- Attending Physician: Brooklyn Shankar Admitting Physician: AdmtrBrooklyn [...] (oldterm) 8 03/14/09 Given 1Result Comment: [09/19/2017] [id number] 2Result Comment: [02/13/2018] [id number] 3Result Comment: [02/08/2017] [facility] [id number] 317 02 4Result Comment: [01/24/2013] ORDERRED BY [...] 05/21/23 11:57:00 EST, Route to Pharmacy Electronically, [facility], 163, cm, 03/07/23 8:42:00 EDT, Height, 76.2, kg, 01/06/22 8:38:00 EDT, Dry Weight Start Date: 05/21/23 Status: Ordered Combivent Respimat 20 mcg-100 mcg/inh inhalation aerosol 1 puffs, Inhalation, 4 times a day, # 1 each, 0 Refills, Maintenance, 10/15/23 8:40:00 EDT, [facility], Partial fill upon patient request [...] 10/01/23 18:42:00 EDT, Route to Pharmacy Electronically, [facility], 163, cm, 09/06/23 10:02:00 EDT, [...] 60 capsule, 6 Refills, Maintenance, 10/26/22 11:06:00EDT, [facility] #[facility], Partial fill upon patient request if the prescription is for a schedule II opioid drug., 163, cm, 09/04/22 7:38:00 EDT,... Start Date: 10/26/22 Status: Ordered ondansetron 4 mg oral tablet 1 tablet, By Mouth, Every 8 hours, # 12 tablet, 0 Refills, Maintenance, 08/28/23 13:41:00 EDT, [facility] #[facility], 163, cm, 08/22/23 8:24:00 EDT, [...] mellitus Confirmed Active Dyshidrotic eczema Confirmed Active Procedures Procedure Date Related Diagnosis Body Site Status upper endoscopy 201207/29/12 Comp leted fiberoptic bronchoscopy C ompleted MRI brain , 2011 - chronic s inusitis, no brain path pathology Complete d placement of port-a-cath, August 2010 Completed sleep study 2011 Complete d Social History Social History Type Response Smoking Status Never smoker entered on: 05/12/13 Sex History and physical note * Merly Lee: PERFORM Event Display: History and Physical Hospital Authored Date: * Merly Lee: PERFORM Event Display: History and Physical Hospital Authored Date: EKG study * Event Display: EKG Authored Date: Laboratory * Event Display: Non BH Lab Results Authored Date: * Event Display: Non BH Lab Results Authored Date: * Event Display: Non BH Lab Results Authored Date: Consult note * Jocelyn Muller: PERFORM Event Display: Consultation Note Authored Date: Radiology * Event Display: NM Nuclear Medicine, Non-BH Authored Date: * Event Display: MRI Ankle/Foot, Non- BH Authored Date: * Event Display: IR Special Procedures, Non-BH Authored Date: * Event Display: CT Scan Chest, Non- BH Authored Date: * Event Display: CT Scan Abdomen, Non- BH Authored Date: * Event Display: CT Scan Abdomen, Non- BH Authored Date: * Event Display: IR Special Procedures, Non-BH Authored Date: * Event Display: IR Special Procedures, Non-BH Authored Date: * Event Display: MRI Ankle/Foot, Non- BH Authored Date: * Event Display: MRI Ankle/Foot, Non- BH Authored Date: * Perlita CHAIDEZ , Gina Smith: REVIEW Event Display: Non BH Radiology Results Authored Date: * Event Display: Non BH Radiology Results Authored Date: * Event Display: Radiology Result Scanned Authored Date: CT Chest * Event Display: CT Scan Chest Authored Date: * Event Display: CT Scan Chest Authored Date: Note * Merly Lee: PERFORM Event Display: Discharge/Transfer Note Hospital Authored Date: * Vanessa Mariano.: PERFORM Event Display: Discharge/Transfer Note Hospital Authored Date: * Vanessa Mariano.: PERFORM Event Display: Discharge/Transfer Note Hospital Authored Date: Patient Care team information Care Team Personnel Name: Marisa CHAIDEZ, Neto Osorio Position: [facility] Renal MD Member Role: Lifetime Consulting Physician Address: Address: [address] [place] [address] [address] [place] [address]- [place] Name: Lore Clinton RN Position: [facility] RN Member Role: Primary Care Nurse Name: Bernie Aquino NP Position: [facility] PCO Associate Professional Member Role: PCP Address: Address: [address] [place] [address]- [place] Name: Gregg Hardy MD Position: [facility] Pulmonary MD Member Role: Lifetime Consulting Physician Address: Address: [address] [place] [address]- [place] Care Team Related Persons Name: ONDINA SINGLETARY Address: home [address] [place] [address] Name: BLAIRE JACOB Address: home [address] [place] [address]
--- OUTSIDE RECORDS SUMMARY | 2024-01-11 13:48 | XMS_ITS | Continuity of Care Document ---
Author Organization [facility] David Address [address] [place] [address]- Care Team Providers Care Field Contact Technician Name Role Phone Gina Bhat MD Primary Care Physician [facility]counter [facility] Date(s): 02/21/21 - 02/28/21 [facility] Adult [address] [place] [address]- Attending Physician: Gina Bhat MD Allergies, Adverse Reactions, Alerts Substance Reaction Severity Status azithromycin 1 Active morphine vomiting Active Flonase Active Augmentin 2 Active Demerol HCl vomiting Active Cats Active Reglan double vision Active Adhesive Bandage Active 1Diarrhea 2makes sicker [...] (oldterm) 8 03/14/09 Given 1Result Comment: [02/13/2018] [id number] 2Result Comment: [02/08/2017] [facility] [id number] 317 02 3Result Comment: [01/24/2013] ORDERRED BY GINA BHAT MD 4Result Comment: [09/19/2017] [id number] 5Admin Note: vis given 6Admin Note: BIOMEDICAL MRAIELLA 7Admin Note: H1N1 8Admin Note: elsewhere Medications [...] 12/01/20 15:40:00 EDT, Route to Pharmacy Electronically, [facility], 163,cm, 11/22/20 12:47:00 EDT, Height [...] Refills, Soft Stop, 11/01/20 15:04:00 EDT, Tablet, [facility], Partial fill upon patient request [...] Maintenance, 10/26/20 11:52:00EDT, Route to Pharmacy Electronically, [facility], 163, cm, 09/23/20 9:42:00 EDT,Height [...] Refills, Maintenance, 02/10/21 15:07:00 EDT, [facility], 163, cm, 02/10/21 14:31:00 EDT, [...] Weight Start Date: 10/01/19 Status: Ordered Pen [place], 31 G x 5 mm BD Ultra Fine III See Instructions, # 150 each, Refills 6, Tot. Refills 6, Maintenance, for use 4x daily with Lantus and humalog insulin E11.65, 06/24/18 10:09:38 EST, Compound Start Date: 06/24/18 Status: Ordered Pen [place], 31 G x 5 mm BD Ultra [...] 02/23/21 16:10:00 EDT, Route to Pharmacy Electronically, [facility], Rx resent from 07/26/20, 163, cm, 02/21/21 15:42:00 EDT, Height, 81, kg, 09... Start Date: 02/23/21 Status: Ordered SUMAtriptan 100 mg oral tablet 1 tablet, By Mouth, Daily, PRN NEEDED FOR MIGRAINE, MAY REPEAT DOSE IN 2 HOURS IF NEEDED, # 9 tablet, 11 Refills, Soft Stop, 05/10/20 14:37:00 EST, [facility], 163, cm, 01/16/20 10:48:00 EDT, Height, 82.6, kg, 05/24/18 7:14:00 EST, . Start Date: 05/10/20 Status: Ordered topiramate 50 mg oral tablet See Instructions, 1 tablet in morning, 3 tablets at bedtime, # 120 tablet, 5 Refills, Maintenance, 01/21/21 15:35:00 EDT, [facility], 163, cm, 11/22/20 12:47:00 EDT, [...] 2 diabetes mellitus(Confirmed) Active Dyshidrotic eczema(Confirmed) Active Vital Signs Most recent to oldest [Reference Range]: 1 Height 163 cm (02/21/21 3:42 PM) Weight 83.3 kg (02/21/21 3:42 PM) Oxygen Saturation [94-100 %] 98 % (02/21/21 3:42 PM) Pulse Rate [55-90 bpm] 98 bpm *H* (02/21/21 3:42 PM) Body Mass Index [18.5-24.99] 31.35 *>HHI* (02/21/21 3:42 PM) Blood Pressure [90-138/55-84 mm Hg] 102/ 62mm Hg (02/21/21 3:42 PM) Respiratory Rate [16-30 br/min] 18 br/mi n (02/21/21 3:42 PM) Temperature [96.8-100.4 DegF] 98.6 DegF (02/21/21 3:42 PM) Blood pressure sites Arm, left (02/21/21 3:42 PM) Temperature Route Oral (02/21/21 3:42 PM) Weight Obtained Via Bed scale (02/21/21 3:42 PM) Social History Social History Type Response Smoking Status Never smoker entered on: 01/21/18 Sex
--- OUTSIDE RECORDS SUMMARY | 2024-01-11 13:48 | XMS_ITS | Continuity of Care Document ---
Author Organization [facility] Juventino David Address [address] [place] [address]- Care Team Providers Care Meter Shop Superintendent Name Role Phone Gina Bhat MD Primary Care Physician [facility] Date(s): 02/02/21 - 03/13/21 [facility] Adult [address] [place] [address]- Attending Physician: Gina Bhat MD Allergies, Adverse [...] (oldterm) 8 03/14/09 Given 1Result Comment: [02/13/2018] [id number] 2Result Comment: [02/08/2017] [facility] [id number] 317 02 3Result Comment: [01/24/2013] ORDERRED BY GINA BHAT MD 4Result Comment: [09/19/2017] [id number] 5Admin Note: vis given 6Admin Note: BIOMEDICAL [...] Height Start Date: 12/01/20 Status: Ordered EpiPen 2-Juevnal = 0.3 mg, Intramuscular, Once, 0 Refills, [...] Refills, Soft Stop, 11/01/20 15:04:00 EDT, Tablet, [facility], Partial fill upon patient request [...] Maintenance, 10/26/20 11:52:00EDT, Route to Pharmacy Electronically, [facility], 163, cm, 09/23/20 9:42:00 EDT,Height [...] Refills, Maintenance, 02/10/21 15:07:00 EDT, [facility], 163, cm, 02/10/21 14:31:00 EDT, [...] Weight Start Date: 10/01/19 Status: Ordered Pen [place], 31 G x 5 mm BD Ultra Fine III See Instructions, # 150 each, Refills 6, Tot. Refills 6, Maintenance, for use 4x daily with Lantus and humalog insulin E11.65, 06/24/18 10:09:38 EST, Compound Start Date: 06/24/18 Status: Ordered Pen [place]ron, 31 G x 5 mm BD Ultra [...] 02/23/21 16:10:00 EDT, Route to Pharmacy Electronically, [facility], Rx resent from 07/26/20, 163, cm, 02/21/21 15:42:00 EDT, Height, 81, kg, 09... Start Date: 02/23/21 Status: Ordered SUMAtriptan 100 mg oral tablet 1 tablet, By Mouth, Daily, PRN NEEDED FOR MIGRAINE, MAY REPEAT DOSE IN 2 HOURS IF NEEDED, # 9 tablet, 11 Refills, Soft Stop, 05/10/20 14:37:00 EST, [facility], 163, cm, 01/16/20 10:48:00 EDT, Height, 82.6, kg, 05/24/18 7:14:00 EST, . Start Date: 05/10/20 Status: Ordered topiramate 50 mg oral tablet See Instructions, 1 tablet in morning, 3 tablets at bedtime, # 120 tablet, 5 Refills, Maintenance, 01/21/21 15:35:00 EDT, [facility], 163, cm, 11/22/20 12:47:00 EDT, [...]
--- OUTSIDE RECORDS SUMMARY | 2024-01-11 13:48 | XMS_ITS | Continuity of Care Document ---
Author Organization [facility] David Address [address] [place] [address]- Care Team Providers Care Numerical Control Operator Name Role Phone Perlita CHAIDEZ, Gina Smith Primary Care Physician Encounter [facility] Date(s): 11/22/20 - 11/29/20 [facility] Adult [address] [place] [address]- Encounter Diagnosis Gingivitis, acute(Discharge Diagnosis) - 11/22/20 Attending Physician: Mingo CHAIDEZ, Shorty Griffin Referring Physician: Elda Vincent NP Allergies, Adverse Reactions, Alerts Substance Reaction [...] (oldterm) 8 03/14/09 Given 1Result Comment: [02/13/2018] [id number] 2Result Comment: [02/08/2017] [facility] [id number] 317 02 3Result Comment: [01/24/2013] ORDERRED BY GINA GAINES MD 4Result Comment: [09/19/2017] [id number] 5Admin Note: vis given 6Admin Note: BIOMEDICAL [...] Weight Start Date: 10/01/19 Status: Ordered Pen [place], 31 G x 5 mm BD Ultra Fine III See Instructions, # 150 each, Refills 6, Tot. Refills 6, Maintenance, for use 4x daily with Lantus and humalog insulin E11.65, 06/24/18 10:09:38 EST, Compound Start Date: 06/24/18 Status: Ordered Pen [place], 31 G x 5 mm BD Ultra [...] 07/26/20 10:28:00 EDT, Route to Pharmacy Electronically, [facility], 163, cm, 07/26/20 8:40:00 EDT, [...] 5 Refills, Maintenance, 11/01/20 14:54:00 EDT, Solution, [facility], Partial fill upon patient request [...] Dates Health Status Cl inical Service Informant Gingivitis, acute Discharge Diagnosis 11/22/20 Vital Signs Most recent to oldest [Reference Range]: 1 Height 163 cm (11/22/20 12:47 PM) Weight 83.7 kg (11/22/20 12:47 PM) Oxygen Saturation [94-100 %] 98 % (11/22/20 12:47 PM) Pulse Rate [55-90 bpm] 101 bpm *H* (11/22/20 12:47 PM) Body Mass Index [18.5-24.99] 31.5 *>HHI* (11/22/20 12:47 PM) Blood Pressure [90-138/55-84 mm Hg] 108/ 72mm Hg (11/22/20 12:47 PM) Temperature [96.8-100.4 DegF] 98.3 DegF (11/22/20 12:47 PM) Blood pressure sites Arm, left (11/22/20 12:47 PM) Social History Social History Type Response Smoking Status Never smoker entered on: 01/21/18 Sex
--- OUTSIDE RECORDS SUMMARY | 2024-01-11 13:48 | XMS_ITS | Continuity of Care Document ---
Author Organization [facility] Juventino David lt Address [address] [place] [address]- Care Team Providers Care Maintenance Groundman Name Role Phone Miles OTOOLE, Bernie Hardy Primary Care Physician [place] [facility] [place] 11/21/23 - 12/21/23 [facility] Adult [address] [place] [address]- Allergies, Adverse Reactions, Alerts Substance Reaction Severity [...] (oldterm) 8 03/14/09 Given 1Result Comment: [09/19/2017] [id number] 2Result Comment: [02/13/2018] [id number] 3Result Comment: [02/08/2017] [facility] [id number] 317 02 4Result Comment: [01/24/2013] ORDERRED BY [...] EDT, Route to Pharmacy Electronically, [facility], Partial fill upon patient request if the prescr... Start Date: 12/03/23 Stop Date: 05/01/24 Status: Ordered colchicine 0.6 mg oral tablet 1, tablet, By Mouth, 2 times a day, # 60 Unknown, Refills 11, Maintenance, 05/21/23 11:57:00 EST, Route to Pharmacy Electronically, [facility], 163, cm, 03/07/23 8:42:00 EDT, [...] tablet, 2 Refills, Maintenance, 10/30/23 15:37:00 EDT, [facility], 163, cm, 10/29/23 10:06:00 EDT, Height, 76.2, kg, 01/06/22 8:38:00 EDT, Dry Weight Start Date: 10/30/23 Status: Ordered montelukast 10 mg oral tablet 1, tablet, By Mouth, Daily in PM, # 90 tablet, Refills 1, Tot. Refills 1, Maintenance, 10/01/23 18:42:00 EDT, Route to Pharmacy Electronically, [facility], 163, cm, 09/06/23 10:02:00 [...] 60 capsule, 6 Refills, Maintenance, 10/26/22 11:06:00EDT, [facility], Partial fill upon patient [...] Personnel Name: Marisa CHAIDEZ, Neto Osorio Position: [facility] Renal MD Member Role: Lifetime Consulting Physician Address: Address: [address] [place] [address] [address] [facility] [address]- [place] Name: Lore Clinton RN Position: [facility] RN Member Role: Primary Care Nurse Name: Bernie Aquino NP Position: [facility] PCO Associate Professional Member Role: PCP Address: Address: [address] [place] [address]- [place] Name: Gregg Hardy MD Position: [facility] Pulmonary MD Member Role: Lifetime Consulting Physician Address: Address: [address] [place] [address]- Care Team Related Persons Name: ONDINA SINGLETARY Address: home [address] [place] [address] Name: BLAIRE JACOB Address: home [address] [place] [address]
--- OUTSIDE RECORDS SUMMARY | 2024-01-11 13:48 | XMS_ITS | Continuity of Care Document ---
Author Organization [facility] Juventino David Address [address] [place] [address]- Care Team Providers Care Healthcare Or Medical Name Role Phone Gina Bhat MD Primary Care Physician [phone] [facility] 05[facility]09[facility]21 - 06/08/21 [facility] Adult [address] [place] [address]- Allergies, Adverse Reactions, Alerts Substance Reaction Severity [...] (oldterm) 8 03/14/09 Given 1Result Comment: [02/13/2018] [id number] 2Result Comment: [02/08/2017] [facility] [id number] 317 02 3Result Comment: [01/24/2013] ORDERRED BY GINA BHAT MD 4Result Comment: [09/19/2017] [id number] 5Admin Note: vis given 6Admin Note: BIOMEDICAL [...] 0 Refills, Maintenance, 03/16/21 15:15:00 EDT, Tablet, [facility], 163, cm, 02/21/21 15:42:00 EDT, Height, 81, kg, 01/28/21 22:15:00 EDT, Dry Weight Start Date: 03/16/21 Status: Ordered rizatriptan 10 mg oral tablet [...] 02/23/21 16:10:00 EDT, Route to Pharmacy Electronically, [facility], Rx resent from 07/26/20, 163, cm, 02/21/21 15:42:00 EDT, Height, 81, kg, 09... Start Date: 02/23/21 Status: Ordered topiramate 50 mg oral tablet See Instructions, 1 tablet in morning, 4 tablets at bedtime, # 120 tablet, 5 Refills, Maintenance, 01/21/21 15:35:00 EDT, [facility], 163, cm, 11/22/20 12:47:00 EDT, [...]
--- OUTSIDE RECORDS SUMMARY | 2024-01-11 13:48 | XMS_ITS | Continuity of Care Document ---
Author Organization [facility] Juventino David lt Address [address] [place] [address]- Care Team Providers Care Cable Television Technician Name Role Phone Miles OTOOLE, Bernie Hardy Primary Care Physician Encounter [facility] Date(s): 12/10/23 - 01/09/24 [facility] Adult [address] [place] [address]- Allergies, Adverse Reactions, Alerts Substance Reaction Severity [...] (oldterm) 8 03/14/09 Given 1Result Comment: [09/19/2017] [id number] 2Result Comment: [02/13/2018] [id number] 3Result Comment: [02/08/2017] [facility] [id number] 317 02 4Result Comment: [01/24/2013] ORDERRED BY [...] EDT, Route to Pharmacy Electronically, [facility], Partial fill upon patient request if the prescr... Start Date: 12/03/23 Stop Date: 05/01/24 Status: Ordered colchicine 0.6 mg oral tablet 1, tablet, By Mouth, 2 times a day, # 60 Unknown, Refills 11, Maintenance, 05/21/23 11:57:00 EST, Route to Pharmacy Electronically, [facility], 163, cm, 03/07/23 8:42:00 EDT, [...] EDT, Route to Pharmacy Electronically, [facility], 163, cm, 09/06/23 10:02:00 EDT, [...] 120 tablet, 5 Refills, 09/07/23 10:21:00 EDT, [facility], 163, cm, 09/06/23 10:02:00 EDT, [...] Team Personnel Name: Neto Cunningham MD Position: [facility] Renal MD Member Role: Lifetime Consulting Physician Address: Address: [address] [place] [address] [address] [place] [address]- [place] Name: Lore Clinton RN Position: [facility] AMB Nurse Member Role: Primary Care Nurse Name: Bernie Aquino NP Position: [facility] PCO Associate Professional Member Role: PCP Address: Address: [address] [place] [address]- [place] Name: Gregg Hardy MD Position: [facility] Pulmonary MD Member Role: Lifetime Consulting Physician Address: Address: [address] [place] [address]- Care Team Related Persons Name: ONDINA SINGLETARY Address: home [address] [place] [address] Name: BLAIRE JACOB Address: home [address] [place] [address]
--- OUTSIDE RECORDS SUMMARY | 2024-01-11 13:48 | XMS_ITS | Continuity of Care Document ---
Author Organization [facility] Address [address] [place] [address]- Care Team Providers Care Assistant Unit Forester Name Role Phone Gina Bhat MD Primary Care Physician [facility] Date[facility]s): 02/07/21 - 03/09/21 [facility] Adult [address] [place] [address]- Allergies, Adverse Reactions, Alerts Substance Reaction Severity [...] (oldterm) 8 03/14/09 Given 1Result Comment: [02/13/2018] [id number] 2Result Comment: [02/08/2017] [facility] [id number] 317 02 3Result Comment: [01/24/2013] ORDERRED BY GINA BHAT MD 4Result Comment: [09/19/2017] [id number] 5Admin Note: vis given 6Admin Note: BIOMEDICAL [...] EDT, Route to Pharmacy Electronically, [facility], 163,cm, 11/22/20 12:47:00 EDT, Height [...] Refills, Soft Stop, 11/01/20 15:04:00 EDT, Tablet, [facility], Partial fill upon patient request [...] 11:52:00EDT, Route to Pharmacy Electronically, [facility], 163, cm, 09/23/20 9:42:00 EDT,Height [...] Refills, Maintenance, 10/04/20 11:38:00 EDT, [facility], 163, cm, 09/23/20 9:42:00 EDT, [...] Refills, Maintenance, 02/10/21 15:07:00 EDT, [facility], 163, cm, 02/10/21 14:31:00 EDT, [...] Weight Start Date: 10/01/19 Status: Ordered Pen Ono, 31 G x 5 mm BD Ultra Fine III See Instructions, # 150 each, Refills 6, Tot. Refills 6, Maintenance, for use 4x daily with Lantus and humalog insulin E11.65, 06/24/18 10:09:38 EST, Compound Start Date: 06/24/18 Status: Ordered Pen Ono, 31 G x 5 mm BD Ultra [...] 02/23/21 16:10:00 EDT, Route to Pharmacy Electronically, [facility] #[facility], Rx resent from 07/26/20, 163, cm, 02/21/21 15:42:00 EDT, Height, 81, kg, 09... Start Date: 02/23/21 Status: Ordered SUMAtriptan 100 mg oral tablet 1 tablet, By Mouth, Daily, PRN NEEDED FOR MIGRAINE, MAY REPEAT DOSE IN 2 HOURS IF NEEDED, # 9 tablet, 11 Refills, Soft Stop, 05/10/20 14:37:00 EST, [facility], 163, cm, 01/16/20 10:48:00 EDT, Height, 82.6, kg, 05/24/18 7:14:00 EST, [facility]. Start Date: 05/10/20 Status: Ordered topiramate 50 mg oral tablet See Instructions, 1 tablet in morning, 3 tablets at bedtime, # 120 tablet, 5 Refills, Maintenance, 01/21/21 15:35:00 EDT, [facility], 163, cm, 11/22/20 12:47:00 EDT, [...]
--- OUTSIDE RECORDS SUMMARY | 2024-01-11 13:49 | XMS_ITS | Continuity of Care Document ---
Author Organization [facility] Juventino David Address [address] [place] [address]- Care Team Providers Care Marketing Designer Name Role Phone Perlita CHAIDEZ, Gina Smith Primary Care Physician [facility] Date(s): 01/13/21 - 02/12/21 [facility] Adult [address] [place] [address]- Allergies, Adverse Reactions, Alerts Substance Reaction Severity [...] (oldterm) 8 03/14/09 Given 1Result Comment: [02/13/2018] [id number] 2Result Comment: [02/08/2017] [facility] [id number] 317 02 3Result Comment: [01/24/2013] ORDERRED BY GINA GAINES MD 4Result Comment: [09/19/2017] [id number] 5Admin Note: vis given 6Admin Note: BIOMEDICAL [...] 12/01/20 15:40:00 EDT, Route to Pharmacy Electronically, [facility], 163,cm, 11/22/20 12:47:00 EDT, Height [...] Refills, Soft Stop, 11/01/20 15:04:00 EDT, Tablet, [facility], Partial fill upon patient request [...] Maintenance, 10/26/20 11:52:00EDT, Route to Pharmacy Electronically, [facility], 163, cm, 09/23/20 9:42:00 EDT,Height [...] Refills, Maintenance, 02/10/21 15:07:00 EDT, [facility], 163, cm, 02/10/21 14:31:00 EDT, [...] Weight Start Date: 10/01/19 Status: Ordered Pen Madison, 31 G x 5 mm BD Ultra Fine III See Instructions, # 150 each, Refills 6, Tot. Refills 6, Maintenance, for use 4x daily with Lantus and humalog insulin E11.65, 06/24/18 10:09:38 EST, Compound Start Date: 06/24/18 Status: Ordered Pen Madison, 31 G x 5 mm BD Ultra [...] 07/26/20 10:28:00 EDT, Route to Pharmacy Electronically, [facility], 163, cm, 07/26/20 8:40:00 EDT, Height Start Date: 07/26/20 Status: Ordered SUMAtriptan 100 mg oral tablet 1 tablet, By Mouth, Daily, PRN NEEDED FOR MIGRAINE, MAY REPEAT DOSE IN 2 HOURS IF NEEDED, # 9 tablet, 11 Refills, Soft Stop, 05/10/20 14:37:00 EST, [facility], 163, cm, 01/16/20 10:48:00 EDT, Height, 82.6, kg, 05/24/18 7:14:00 ESTDr... Start Date: 05/10/20 Status: Ordered topiramate 50 mg oral tablet See Instructions, 1 tablet in morning, 3 tablets at bedtime, # 120 tablet, 5 Refills, Maintenance, 01/21/21 15:35:00 EDT, [facility], 163, cm, 11/22/20 12:47:00 EDT, [...]
--- OUTSIDE RECORDS SUMMARY | 2024-01-11 13:49 | XMS_ITS | Continuity of Care Document ---
Author Organization [facility] David Address [address] [place] [address]- Care Team Providers Care Risk Management Internship Name Role Phone Miles OTOOLE, Bernie Hardy Primary Care Physician Encounter [facility] Date(s): 04/04/22 - 05/04/22 [facility] Adult [address] [place] [address]- Attending Physician: Admtr, Ar8 Admitting Physician: Admtr, Dillan8 Referring Physician: Admtr, Ar8 Allergies, Adverse Reactions, [...] (oldterm) 8 03/14/09 Given 1Result Comment: [02/13/2018] [id number] 2Result Comment: [02/08/2017] [facility] [id number] 317 02 3Result Comment: [01/24/2013] ORDERRED BY GINA BHAT MD 4Result Comment: [09/19/2017] [id number] 5Admin Note: vis given 6Admin Note: BIOMEDICAL [...] study * Event Display: EKG Authored Date: Note * Event Display: IR Special Procedures, Non-BH Authored Date: * Event Display: CT Scan Chest, Non- BH Authored Date: * Event Display: Laboratory Result Scanned Authored Date: * Event Display: Non BH Lab Results Authored Date: * Event Display: Non BH Lab Results Authored Date: * Event Display: CT Scan Abdomen, Non- BH Authored Date: * Event Display: CT Scan Abdomen, Non- BH Authored Date: * Event Display: IR Special Procedures, Non-BH Authored Date: * Event Display: IR Special Procedures, Non-BH Authored Date: * Event Display: MRI Ankle/Foot, Non- BH Authored Date: * Event Display: MRI Ankle/Foot, Non- BH Authored Date: * Gina Bhat MD: REVIEW Event Display: Non BH Radiology Results Authored Date: * Event Display: Non BH Radiology Results Authored Date: * Event Display: Radiology Result Scanned Authored Date: * Merly Lee: PERFORM Event Display: Discharge/Transfer Note Hospital Authored Date: [id number] * Vanessa Mariano.: PERFORM Event Display: Discharge/Transfer Note Hospital Authored Date: [id number] * Vanessa Mariano.: PERFORM Event Display: Discharge/Transfer Note Hospital Authored Date: CT Chest * Event Display: CT Scan Chest Authored Date: * Event Display: CT Scan Chest Authored Date: Patient Care team information Care Team Personnel Name: Marisa CHAIDEZ, Neto Osorio Position: [facility] Renal MD Member Role: Lifetime Consulting Physician Address: Address: [address] [place] [address], [facility] [address] [place] [address]- [place] Name: Lore Clinton RN Position: [facility] RN Member Role: Primary Care Nurse Name: Miles OTOOLE, Bernie Hardy Position: [facility] PCO Associate Professional Member Role: PCP Address: Address: [address] [place] [address]- [place] Name: Gregg Hardy MD Position: [facility] Pulmonary MD Member Role: Lifetime Consulting Physician Address: Address: [address] [place] [address]- [place] Care Team Related Persons Name: MERRITT SINGLETARY Address: home [address] [place] [address] Name: BLAIRE JACOB Address: home [address] [place] [address]
--- OUTSIDE RECORDS SUMMARY | 2024-01-11 13:49 | XMS_ITS | Continuity of Care Document ---
Author Organization [facility] Juventino David lt Address [address] [place] [address]- Care Team Providers Care Manager Intranet Name Role Phone Miles OTOOLE, Bernie Hardy Primary Care Physician Encounter [facility] Date(s): 12/14/21 - 12/21/21 [facility] Adult [address] [place] [address]- Encounter Diagnosis Elevated serum creatinine(Discharge Diagnosis) - 12/14/21 Hyperparathyroidism - lithum induced(Discharge Diagnosis) - 12/14/21 UTI (urinary tract infection)(Discharge Diagnosis) - 12/14/21 Type 2 diabetes mellitus(Discharge Diagnosis) - 12/14/21 Attending Physician: Not on Staff, Attending MD Allergies, Adverse Reactions, Alerts Substance Reaction Severity Status azithromycin 1 Active morphine vomiting Active Flonase Active Adhesive Bandage Active Cats Active Augmentin 2 Active Reglan double vision Active Demerol HCl vomiting Active 1Diarrhea 2makes [...] (oldterm) 8 03/14/09 Given 1Result Comment: [02/13/2018] [id number] 2Result Comment: [02/08/2017] [facility] [id number] 317 02 3Result Comment: [01/24/2013] ORDERRED BY GINA GAINES MD 4Result Comment: [09/19/2017] [id number] 5Admin Note: vis given 6Admin Note: BIOMEDICAL [...] Effective Dates Health Status Clinical Service Informant Elevated serum creatinine Discharge Diagnosis 12/14/21 Hyperparathyroidism - lithum induced Discharge Diagnosis 12/14/21 UTI (urinary tract infection) Discharge Diagnosis 12/14/21 Type 2 diabetes mellitus Discharge Diagnosis 12/14/21 Vital Signs Most recent to oldest [Reference Range]: 1 Height 163 cm (12/14/21 7:32 AM) Weight 77.5 kg (12/14/21 7:32 AM) Oxygen Saturation [94-100 %] 97 % (12/14/21 7:32 AM) Pulse Rate [55-90 bpm] 100 bpm *H* (12/14/21 7:32 AM) Body Mass Index [18.5-24.99] 29.17 *H* (12/14/21 7:32 AM) Blood Pressure [90-138/55-84 mm Hg] 111/ 70mm Hg (12/14/21 7:32 AM) Temperature [96.8-100.4 DegF] 99.8 DegF (12/14/21 7:32 AM) Blood pressure sites Arm, right (12/14/21 7:32 AM) Temperature Route Temporal (12/14/21 7:32 AM) Weight Obtained Via Standing scale (12/14/21 7:32 AM) Social History Social History Type Response Smoking Status Never smoker entered on: 05/12/13 Sex
--- OUTSIDE RECORDS SUMMARY | 2024-01-11 13:49 | XMS_ITS | Continuity of Care Document ---
Author Organization [facility] Address [address] [place] [address] [address] [place] [address]- Care Team Providers Care Poultryman Name Role Phone Miles OTOOLE, Bernie Hardy Primary Care Physician [phone] [facility] Date(s): 01/11/22 - 02/10/22 [facility] [address] [place] [address]- Allergies, Adverse Reactions, Alerts Substance Reaction Severity Status azithromycin 1 increases sx's Active morphine vomiting Active Flonase rhinitis Active Augmentin 2 increases sx Active Reglan double vision Active Demerol HCl vomiting Active Cats sneezing Active Adhesive Bandage rash Active 1Diarrhea 2makes [...] (oldterm) 8 03/14/09 Given 1Result Comment: [02/13/2018] [id number] 2Result Comment: [02/08/2017] [facility] [id number] 317 02 3Result Comment: [01/24/2013] ORDERRED BY GINA GAINES MD 4Result Comment: [09/19/2017] [id number] 5Admin Note: vis given 6Admin Note: BIOMEDICAL [...] Name: Miles OTOOLE, Bernie Hardy Address: Address: [address] [place] [id number]
--- OUTSIDE RECORDS SUMMARY | 2024-01-11 13:49 | XMS_ITS | Continuity of Care Document ---
Author Organization [facility] Juventino David lt Address [address] [place] [address]- Care Team Providers Care Steam Powerplant Supervisor Name Role Phone Miles OTOOLE, Bernie Hardy Primary Care Physician [phone] Encounter [facility] Date(s): 11/05/23 - 12/05/23 [facility] Adult [address] [place] [address]- Allergies, Adverse Reactions, Alerts Substance Reaction Severity [...] (oldterm) 8 03/14/09 Given 1Result Comment: [09/19/2017] [id number] 2Result Comment: [02/13/2018] [id number] 3Result Comment: [02/08/2017] [facility] [id number] 317 02 4Result Comment: [01/24/2013] ORDERRED BY [...] EDT, Route to Pharmacy Electronically, [facility], Partial fill upon patient request if the prescr... Start Date: 12/03/23 Stop Date: 05/01/24 Status: Ordered colchicine 0.6 mg oral tablet 1, tablet, By Mouth, 2 times a day, # 60 Unknown, Refills 11, Maintenance, 05/21/23 11:57:00 EST, Route to Pharmacy Electronically, [facility], 163, cm, 03/07/23 8:42:00 EDT, [...] 10/01/23 18:42:00 EDT, Route to Pharmacy Electronically, [facility], 163, cm, 09/06/23 10:02:00 EDT, [...] 60 capsule, 6 Refills, Maintenance, 10/26/22 11:06:00EDT, [facility] #[facility], Partial fill upon patient request if the prescription is for a schedule II opioid drug., 163, cm, 09/04/22 7:38:00 EDT,... Start Date: 10/26/22 Status: Ordered ondansetron 4 mg oral tablet 1 tablet, By Mouth, Every 8 hours, # 12 tablet, 0 Refills, Maintenance, 08/28/23 13:41:00 EDT, [facility], 163, cm, 08/22/23 8:24:00 EDT, [...] Personnel Name: Marisa CHAIDEZ, Neto Osorio Position: [facility] Renal MD Member Role: Lifetime Consulting Physician Address: Address: [address] [place] [address] [address] [facility] [place] [address]- [place] Name: Oz SHERWOOD, Lore Position: [facility] RN Member Role: Primary Care Nurse Name: Miles OTOOLE, Bernie Hardy Position: [facility] PCO Associate Professional Member Role: PCP Address: Address: [address] [place] [address]- [place] Name: Antony CHAIDEZ, Gregg Position: [facility] Pulmonary MD Member Role: Lifetime Consulting Physician Address: Address: [address] [place] [address]- [place] Care Team Related Persons Name: ONDINA SINGLETARY Address: home [address] [place] [address] Name: BLAIRE JACOB Address: home [address] [place] [address]
--- OUTSIDE RECORDS SUMMARY | 2024-01-11 13:49 | XMS_ITS | Continuity of Care Document ---
Author Organization [facility] Juventino David lt Address [address] [place] [address]- Care Team Providers Care Homicide Squad Lieutenant Name Role Phone Miles OTOOLE, Bernie Hardy Primary Care Physician [facility] Date(s): 07/21/21 - 08/20/21 [facility] Adult [address] [place] [address]- Allergies, Adverse Reactions, Alerts Substance Reaction Severity [...] (oldterm) 8 03/14/09 Given 1Result Comment: [02/13/2018] [id number] 2Result Comment: [02/08/2017] [facility] [id number] 317 02 3Result Comment: [01/24/2013] ORDERRED BY GINA GAINES MD 4Result Comment: [09/19/2017] [id number] 5Admin Note: vis given 6Admin Note: BIOMEDICAL [...] 02/23/21 16:10:00 EDT, Route to Pharmacy Electronically, [facility], Rx resent from 07/26/20, 163, [...] 5 Refills, Maintenance, 08/08/21 15:48:00 EDT, Solution, [facility], Partial fill upon patient request [...]
--- OUTSIDE RECORDS SUMMARY | 2024-01-11 13:49 | XMS_ITS | Continuity of Care Document ---
Author Organization [facility] Address [address] [place] [address]- Care Team Providers Care Wellness Manager Name Role Phone Miles OTOOLE, Bernie Hardy Primary Care Physician Encounter [facility] Date(s): 04/20/23 - 05/20/23 [facility] [address] [place] [address] Allergies, Adverse Reactions, Alerts Substance Reaction [...] (oldterm) 8 03/14/09 Given 1Result Comment: [09/19/2017] [id number] 2Result Comment: [02/13/2018] [id number] 3Result Comment: [02/08/2017] [facility] [id number] 317 02 4Result Comment: [01/24/2013] ORDERRED BY [...] tablet, 1 Refills, Maintenance, 01/01/23 12:44:00 EDT, [facility], 163, cm, 11/13/22 8:37:00 EDT, [...] 05/25/22 6:49:00 EST, Route to Pharmacy Electronically, [facility] #[facility], 163, cm, 04/04/22 7:05:00 EST, [...] 12/01/20 15:40:00 EDT, Route to Pharmacy Electronically, [facility] #[facility], 163,cm, 11/22/20 12:47:00 EDT, Height [...] 0 Refills, Maintenance, 06/06/22 7:46:00 EST, [facility], Partial fill upon patient request [...] tablet, Refills 5, Maintenance, 03/27/23 23:12:00 EST, [facility], [facility] [...] Personnel Name: Marisa CHAIDEZ, Neto Osorio Position: [facility] Renal MD Member Role: Lifetime Consulting Physician Address: Address: [address] [place] [address] [address] [place] [address]- Name: Lore Clinton RN Position: [facility] RN Member Role: Primary Care Nurse Name: Bernie Aquino NP Position: [facility] PCO Associate Professional Member Role: PCP Address: Address: [address] [place] [address]- Name: Gregg Hardy MD Position: [facility] Pulmonary MD Member Role: Lifetime Consulting Physician Address: Address: [address] [place] [address]- Care Team Related Persons Name: ONDINA SINGLETARY Address: home [address] [place] [address] Name: BLAIRE JACOB Address: home [address] [place] [address]
--- OUTSIDE RECORDS SUMMARY | 2024-01-11 13:49 | XMS_ITS | Continuity of Care Document ---
Author Organization [facility] ter Address [address] [place] [address]- Care Team Providers Care Animal Nutritionist Name Role Phone Miles OTOOLE, Bernie Hardy Primary Care Physician [facility] 02[facility]22 - 03/08/22 [facility] [address] [place] [address] Allergies, Adverse Reactions, Alerts Substance [...] (oldterm) 8 03/14/09 Given 1Result Comment: [02/13/2018] [id number] 2Result Comment: [02/08/2017] [facility] [id number] 317 02 3Result Comment: [01/24/2013] ORDERRED BY GINA GAINES MD 4Result Comment: [09/19/2017] [id number] 5Admin Note: vis given 6Admin Note: BIOMEDICAL MARIELLA 7Admin Note: H1N1 8Admin Note: elsewhere Medications atorvastatin 10 mg oral tablet 1 tablet, By Mouth, Daily, # 90 tablet, 1 Refills, Maintenance, 01/29/22 18:37:00 EDT, [facility], 163, cm, 01/06/22 16:05:00 EDT, [...] Refills, Maintenance, 01/02/22 19:09:00 EDT, [facility], 163, cm, 12/26/21 15:28:00 EDT, [...] is for a schedule II opioid drug., 163barber, 02/09/22 10:38:... Start Date: 03/03/22 Status: Ordered [...] Name: Miles OTOOLE, Bernie Hardy Address: Address: [address] [place] [address]-
--- OUTSIDE RECORDS SUMMARY | 2024-01-11 13:49 | XMS_ITS | Continuity of Care Document ---
Author Organization [facility] David lt Address [address] [place] [address]- Care Team Providers Care Assistant Professor Of Communication Name Role Phone Miles OTOOLE, Bernie Hardy Primary Care Physician [facility] Date(s): 08/09/21 - 09/08/21 [facility] Adult [address] [place] [address]- Allergies, Adverse Reactions, Alerts Substance Reaction Severity [...] (oldterm) 8 03/14/09 Given 1Result Comment: [02/13/2018] [id number] 2Result Comment: [02/08/2017] [facility] [id number] 317 02 3Result Comment: [01/24/2013] ORDERRED BY GINA GAINES MD 4Result Comment: [09/19/2017] [id number] 5Admin Note: vis given 6Admin Note: BIOMEDICAL [...] EDT, Route to Pharmacy Electronically, [facility], Rx resent from 07/26/20, 163, [...]
--- OUTSIDE RECORDS SUMMARY | 2024-01-11 13:49 | XMS_ITS | Continuity of Care Document ---
Author Organization [facility] Address [address] [place] [address]- Care Team Providers Care Supervisor Brooder Farm Name Role Phone Perlita CHAIDEZ, Gina Smith Primary Care Physician [facility] Date[facility]): [facility] - 06/01/[facility] [address] [place] [address]- [facility] Attending Physician: Brooklyn Shankar Admitting Physician: Brooklyn [...] (oldterm) 8 03/14/09 Given 1Result Comment: [02/13/2018] [id number] 2Result Comment: [02/08/2017] [facility] [id number] 317 02 3Result Comment: [01/24/2013] ORDERRED BY GINA GAINES MD 4Result Comment: [09/19/2017] [id number] 5Admin Note: vis given 6Admin Note: BIOMEDICAL MARIELLA 7Admin Note: H1N1 8Admin Note: elsewhere Medications albuterol 0.083% inhalation solution 3 mL = 2.5 mg, Inhalation, Once, [id number] 01/2020, # 3 mL, 0 Refills, Soft Stop, 03/14/19 16:50:59 EDT, Solution Start Date: 03/14/19 Status: Ordered benztropine 1 mg oral tablet [...] 07/24/18 12:13:57 EDT, Route to Pharmacy Electronically, [id number], [facility] Start Date: 07/24/18 Status: [...] 01/06/19 11:51:55 EDT, Route to Pharmacy Electronically, [id number], [facility] Start Date: 01/06/19 Status: Ordered Diflucan 150 mg oral tablet See Instructions, 1 tablet By Mouth every other day, # 3 tablet, 1 Refills, Soft Stop, 03/14/19 11:42:57 EDT Start Date: 03/14/19 Status: Ordered EpiPen 2-Juvenal = 0.3 mg, [...] Refills, Maintenance, Tablet, Route to Pharmacy Electronically, [id number], [facility] Start Date: 07/31/18 Status: Ordered lisinopril 2.5 mg oral tablet 2.5 mg, 1, tablet, By Mouth, Daily, # 30 tablet, Refills 11, Tot. Refills 11, Maintenance, 10/10/1915:45:18 EDT, Route to Pharmacy Electronically, [id number], [facility] Start Date: [...] Dry Weight Start Date: 05/09/19 Status: Ordered oxyCODONE 5 mg oral tablet 5 mg, 1, tablet, By Mouth, Every 6 hours, PRN, DX: Migraines G43.909 OK to fill less than prescribed amount, # 12 tablet, Refills 0, Tot. Refills 0, Maintenance, for pain, 05/19/16 16:15:06, Print Requisition Start Date: 05/19/16 Status: Ordered Pen [place], 31 G x 5 mm BD Ultra [...] 05/30/19 11:43:00 EST, Route to Pharmacy Electronically, [facility], 163, cm, 05/30/19 11:08:00 EST, [...]
--- OUTSIDE RECORDS SUMMARY | 2024-01-11 13:49 | XMS_ITS | Continuity of Care Document ---
Author Organization [facility] Address Unknown Care Team Providers Care Sales And Service Engineer Name Role Phone Miles OTOOLE, Bernie Hardy Primary Care Physician [facility] Date(s): 08/19/21 - 08/26/21 [facility] Attending Physician: Gisel Solis MD Referring Physician: Marco CHAIDEZ, Heike Allergies, Adverse Reactions, Alerts Substance Reaction Severity [...] (oldterm) 8 03/14/09 Given 1Result Comment: [02/13/2018] [id number] 2Result Comment: [02/08/2017] [facility] [id number] 317 02 3Result Comment: [01/24/2013] ORDERRED BY GINA GAINES MD 4Result Comment: [09/19/2017] [id number] 5Admin Note: vis given 6Admin Note: BIOMEDICAL [...] 02/23/21 16:10:00 EDT, Route to Pharmacy Electronically, [facility], Rx resent from 07/26/20, 163, cm, 02/21/21 15:42:00 EDT, Height, 81, kg, 09... Start Date: 02/23/21 Status: Ordered topiramate 50 mg oral tablet See Instructions, TAKE 1 TABLET IN THE MORNING AND 3 TABLETS AT BEDTIME., # 120 tablet, 5 Refills, [facility], 163, cm, 06/13/21 9:32:00 EST, [...] 5 Refills, Maintenance, 08/08/21 15:48:00 EDT, Solution, [facility], Partial fill upon patient request [...] oldest [Reference Range]: 1 Height 163 cm (08/19/21 9:33 AM) Weight 78.2 kg (08/19/21 9:33 AM) Oxygen Saturation [94-100 %] 97 % (08/19/21 9:33 AM) Pulse Rate [55-90 bpm] 84 bpm (08/19/21 9:33 AM) Body Mass Index [18.5-24.99] 29.43 *H* (08/19/21 9:33 AM) Blood Pressure [90-138/55-84 mm Hg] 113/ 76mm Hg (08/19/21 9:33 AM) Respiratory Rate [16-30 br/min] 16 br/mi n (08/19/21 9:33 AM) Temperature [96.8-100.4 DegF] 97.3 DegF (08/19/21 9:33 AM) Blood pressure sites Arm, left (08/19/21 9:33 AM) Temperature Route Temporal (08/19/21 9:33 AM) Weight Obtained Via Standing scale (08/19/21 9:33 AM) Social History Social History Type Response Smoking Status Never smoker entered on: 05/12/13 Sex
--- OUTSIDE RECORDS SUMMARY | 2024-01-11 13:49 | XMS_ITS | Continuity of Care Document ---
Author Organization [facility] David lt Address [address] [place] [address]- Care Team Providers Care Color Weigher Name Role Phone Miles OTOOLE, Bernie Hardy Primary Care Physician [phone] [facility] Date(s): 11/23/23 - 12/23/23 [facility] Adult [address] [place] [address]- Allergies, Adverse Reactions, Alerts Substance Reaction Severity [...] (oldterm) 8 03/14/09 Given 1Result Comment: [09/19/2017] [id number] 2Result Comment: [02/13/2018] [id number] 3Result Comment: [02/08/2017] [facility] [id number] 317 02 4Result Comment: [01/24/2013] ORDERRED BY [...] EDT, Route to Pharmacy Electronically, [facility], Partial fill upon patient request if the prescr... Start Date: 12/03/23 Stop Date: 05/01/24 Status: Ordered colchicine 0.6 mg oral tablet 1, tablet, By Mouth, 2 times a day, # 60 Unknown, Refills 11, Maintenance, 05/21/23 11:57:00 EST, Route to Pharmacy Electronically, [facility], 163, cm, 03/07/23 8:42:00 EDT, [...] tablet, 2 Refills, Maintenance, 10/30/23 15:37:00 EDT, [facility], 163, cm, 10/29/23 10:06:00 EDT, Height, 76.2, kg, 01/06/22 8:38:00 EDT, Dry Weight Start Date: 10/30/23 Status: Ordered montelukast 10 mg oral tablet 1, tablet, By Mouth, Daily in PM, # 90 tablet, Refills 1, Tot. Refills 1, Maintenance, 10/01/23 18:42:00 EDT, Route to Pharmacy Electronically, [facility], 163, cm, 09/06/23 10:02:00 [...] 60 capsule, 6 Refills, Maintenance, 10/26/22 11:06:00EDT, [facility], Partial [...] Personnel Name: Marisa CHAIDEZ, Neto Osorio Position: [facility] Renal MD Member Role: Lifetime Consulting Physician Address: Address: [address] [place] [address] [address] [place] [address]- [place] Name: Lore Clinton RN Position: [facility] RN Member Role: Primary Care Nurse Name: Bernie Aquino NP Position: [facility] PCO Associate Professional Member Role: PCP Address: Address: [address] [place] [address]- [place] Name: Gregg Hardy MD Position: [facility] Pulmonary MD Member Role: Lifetime Consulting Physician Address: Address: [address] [place] [address]- Care Team Related Persons Name: ONDINA SINGLETARY Address: home [address] [place] [address] Name: BLAIRE JACOB Address: home [address] [place] [address]
--- OUTSIDE RECORDS SUMMARY | 2024-01-11 13:49 | XMS_ITS | Continuity of Care Document ---
Author Organization [facility] Sj Jauregui David lt Address [address] [place] [address]- Care Team Providers Care Pie Chef Name Role Phone Perlita CHAIDEZ, Gina Smith Primary Care Physician [facility] 12[facility]15[facility]19 - 12/22/19 [facility] Adult [address] [place] [address]- [facility] Encounter Diagnosis Breast wound(Discharge Diagnosis) - 12/15/19 Attending Physician: Jonathan Nj MD Allergies, Adverse Reactions, [...] (oldterm) 8 03/14/09 Given 1Result Comment: [02/13/2018] [id number] 2Result Comment: [02/08/2017] [facility] [id number] 317 02 3Result Comment: [01/24/2013] ORDERRED BY GINA GAINES MD 4Result Comment: [09/19/2017] [id number] 5Admin Note: vis given 6Admin Note: BIOMEDICAL [...] Once, may repeat x1, # 2 tablet, 0 Refills, Soft Stop, 12/15/19 9:35:00 EDT, [facility], 163, cm, 12/15/19 9:18:00 EDT, Height, 82.6, kg, 05/24/18 7:14:00 EST, Dry Weight Start Date: 12/15/19 Status: Ordered EpiPen 2-Juvenal = 0.3 mg, [...] 11/07/19 15:46:00 EDT, Route to Pharmacy Electronically, [facility], 163, cm, 10/01/19 13:40:00 EDT, [...] 1 Refills, Maintenance, 07/20/19 23:41:00 EDT, Tablet, [facility], 163, cm, 07/11/19 11:24:00 EST, Height, 82.6, kg, 05/24/18 7:14:00EST, Dry Weight Start Date: 07/20/19 Status: Ordered lisinopril 2.5 mg oral tablet 2.5 mg, 1, tablet, By Mouth, Daily, # 30 tablet, Refills 11, Tot. Refills 11, Maintenance, 10/02/2013:10:00 EDT, Route to Pharmacy Electronically, [facility], 163, cm, 10/01/19 13:40:00 EDT, [...] twice daily with meals, # 120 tablet, 1 Refills, Maintenance, 10/24/19 16:21:00 EDT, [facility], 163, cm, 10/01/19 13:40:00 EDT, Height,... Start Date: 10/24/19 Status: Ordered Microlet Lancets Microlet Lancets, See [...] Requisition Start Date: 05/19/16 Status: Ordered Pen [place], 31 G x 5 mm BD Ultra [...] 05/30/19 11:43:00 EST, Route to Pharmacy Electronically, [facility], 163, cm, 05/30/19 11:08:00 EST, Height, 82.6, kg, 05/24/18 7:14:00 EST,... Start Date: 05/30/19 Status: Ordered SUMAtriptan 100 mg oral tablet 1 tablet, By Mouth, Daily, PRN NEEDED FOR MIGRAINE, # 9 tablet, Refills 11 Tot. Refills 11, MAY REPEAT DOSE IN 2 HOURS IF NEEDED, [facility] Start Date: 04/14/19 Status: Ordered [...] tablet, 1 Refills, Maintenance, 12/16/19 11:23:00 EDT, [facility], 163, cm, 12/15/19 9:18:00 EDT, [...] Dates Health Status Cl inical Service Informant Breast wound Discharge Diagnosis 12/15/19 Vital Signs Most recent to oldest [Reference Range]: 1 Height 163 cm (12/15/19 9:18 AM) Weight 86.6 kg (12/15/19 9:18 AM) Oxygen Saturation [94-100 %] 97 % (12/15/19 9:18 AM) Pulse Rate [55-90 bpm] 100 bpm *H* (12/15/19 9:18 AM) Body Mass Index [18.5-24.99] 32.59 *>HHI* (12/15/19 9:18 AM) Blood Pressure [90-138/55-84 mm Hg] 123/ 72mm Hg (12/15/19 9:18 AM) Temperature [96.8-100.4 DegF] 98.0 DegF (12/15/19 9:18 AM) Blood pressure sites Arm, left (12/15/19 9:18 AM) Temperature Route Oral (12/15/19 9:18 AM) Weight Obtained Via Standing scale (12/15/19 9:18 AM) Social History Social History Type Response Smoking Status Never smoker entered on: 01/21/18 Sex
--- OUTSIDE RECORDS SUMMARY | 2024-01-11 13:50 | XMS_ITS | Continuity of Care Document ---
Author Organization [facility] David lt Address [address] [place] [address]- Care Team Providers Care Poultry Husbandry Worker Name Role Phone Miles OTOOLE, Bernie Hardy Primary Care Physician [facility] Date[facility]s): 07/25/23 - 08/24/23 [facility] Adult [address] [place] [address]- Allergies, Adverse Reactions, Alerts Substance Reaction Severity [...] (oldterm) 8 03/14/09 Given 1Result Comment: [09/19/2017] [id number] 2Result Comment: [02/13/2018] [id number] 3Result Comment: [02/08/2017] [facility] [id number] 317 02 4Result Comment: [01/24/2013] ORDERRED BY [...] EST, Route to Pharmacy Electronically, [facility], 163, cm, 03/07/23 8:42:00 EDT, [...] tablet, Refills 5, Maintenance, 03/27/23 23:12:00 EST, [facility] Electron[facility], [facility] [...] Personnel Name: Marisa CHAIDEZ, Neto Osorio Position: [facility] Renal MD Member Role: Lifetime Consulting Physician Address: Address: [address] [place] [address] [address] [place] [address]- [place] Name: Lore Clinton RN Position: [facility] RN Member Role: Primary Care Nurse Name: Miles OTOOLE, Bernie Hardy Position: [facility] PCO Associate Professional Member Role: PCP Address: Address: [address] [place] [address]- [place] Name: Gregg Hardy MD Position: [facility] Pulmonary MD Member Role: Lifetime Consulting Physician Address: Address: [address] [place] [address]- [place] Care Team Related Persons Name: ONDINA SINGLETARY Address: home [address] [place] [address] Name: BLAIRE JACOB Address: home [address] [place] [address]
--- OUTSIDE RECORDS SUMMARY | 2024-01-11 13:50 | XMS_ITS | Continuity of Care Document ---
Author Organization [facility] Ju[facility] David lt Address [address] [place] [address]- Care Team Providers Care Lead Manufacturing Engineering Tech Name Role Phone Miles OTOOLE, Bernie Hardy Primary Care Physician Encounter [facility] Date(s): 08/09/23 - 08/16/23 [facility] Adult [address] [place] [address]- Encounter Diagnosis Sinusitis(Discharge Diagnosis) - 08/09/23 Attending Physician: Kyle OTOOLE, Beth Laureano Allergies, Adverse Reactions, Alerts Substance Reaction Severity Status azithromycin 1 increases sx's Active morphine vomiting Active Augmentin 2 increases sx Active NSAIDs Active Flonase rhinitis Active Reglan double vision [...] (oldterm) 8 03/14/09 Given 1Result Comment: [09/19/2017] [id number] 2Result Comment: [02/13/2018] [id number] 3Result Comment: [02/08/2017] [facility] [id number] 317 02 4Result Comment: [01/24/2013] ORDERRED BY [...] tablet, Refills 5, Maintenance, 03/27/23 23:12:00 EST, [facility], [facility] [...] Dates Health Status Clini kamron Service Informant Sinusitis Discharge Diagnosis 08/09/23 Vital Signs Most recent to oldest [Reference Range]: 1 Height 163 cm (08/09/23 10:42 AM) Weight 79.9 kg (08/09/23 10:42 AM) Oxygen Saturation [94-100 %] 98 % (08/09/23 10:42 AM) Pulse Rate [55-90 bpm] 93 bpm *H* (08/09/23 10:42 AM) Body Mass Index [18.5-24.99 kg/m2] 30.07 kg/m2 *>HHI* (08/09/23 10:42 AM) Blood Pressure [90-138/55-84 mm Hg] 123/ 78mm Hg (08/09/23 10:42 AM) Temperature [96.8-100.4 DegF] 98.9 DegF (08/09/23 10:42 AM) Blood pressure sites Arm, left (08/09/23 10:42 AM) Temperature Route Oral (08/09/23 10:42 AM) Weight Obtained Via Standing scale (08/09/23 10:42 AM) Social History Social History Type Response Smoking Status Never smoker entered on: 05/12/13 Sex Note * Ludy Valdez: PERFORM, SIGN, VERIFY Event Display: Patient Education/Instruction Authored Date: [id number] [facility] *BMP So [facility] Clinical Summary Name HEMANT LEE Age 47 Years 1975 PCP Miles OTOOLE, Bernie Hardy [id number] Visit Date 08/09/2023 10:32:00 Additional Instructions: Scheduled Appointments?? Future Appointments ?*BMP??[facility] ?[address] ?Phone:??--?Fax:??-- ?Appt. Date:??09/06/2023?10:10 AM ?Scheduled Provider:??Miles OTOOLE , Bernie He ?*[facility] ?[address]??[place],??[place],??[address] ?Phone:??--?Fax:??-- ?Appt. Date:??10/29/2023?9:45 AM ?Scheduled Provider:??Kip CHAIDEZ , Kelli Follow-Up Instructions ?? Diagnosis Other fatigue; Chronic sinusitis, unspecified Medications: Please continue your medications until treatment is completed or stopped by your provider. Discuss any questions related to medications with your provider. New Medications [facility], [address] [place], [place] [id number], [phone] Amoxicillin (amoxicillin 500 mg oral capsule) 1 capsule Oral 3 times a day for 5 Days. Refills: 0. Next Dose: Doxycycline (doxycycline hyclate 100 mg oral enteric coated tablet) 1 tab(s) Oral twice a day for 5Days. Refills: 0. Next Dose: Medications to Continue [...] Oral once. may repeat x 1. Refills: 1. Next Dose: fluticasone/umeclidinium/vilanterol (Trelegy Ellipta) [...] in 6 weeks.. Refills: 6. Next Dose: [place] (lithium 150 mg oral capsule) 1 capsule [...] Future Orders ?No future orders Future Orders ?Comprehensive Metabolic Panel? Order Date:08/09/23?- Complete within?CBC w/ Differential? Order Date:08/09/23?- Complete within? Vital Signs Height 163 cm Weight 79.9 kg BMI 30.07 kg/m2 Blood Pressure 123 mm Hg/78 mm Hg Temperature 98.9 DegF Pulse Rate 93 bpm Respiratory Rate 02 Sat Mode of Delivery 98 %/ You can now view a summary of your hospital visit from the comfort of your home through a free online portal called [employer]. [employer] is a website that allows you to securely view your medical information including discharge summary, medications and follow-up visits. ??You can alsosend a secure electronic message to your doctor???s office to request appointments, renew medications or just ask a question. You can enroll at [email or web address] or register during your next office visit. [...] primary care provider, you may find a [facility] provider by calling [facility] Link at [phone]. [facility], in keeping with [facility] guidance, no longer requires face [...] Role: Lifetime Consulting Physician Address: Address: [address] [place] [address] [address] [facility] [address]- [place] Name: Lore Clinton RN Position: [facility] RN Member Role: Primary Care Nurse Name: Bernie Aquino NP Position: [facility] PCO Associate Professional Member Role: PCP Address: Address: [address] [place] [address]- [place] Name: Gregg Hrady MD Position: [facility] Pulmonary MD Member Role: Lifetime Consulting Physician Address: Address: [address] [place] [address]- Care Team Related Persons Name: ONDINA SINGLETARY Address: home [address] [place] [address] Name: BLAIRE JACOB Address: home [address] [place] [address]
--- OUTSIDE RECORDS SUMMARY | 2024-01-11 13:50 | XMS_ITS | Continuity of Care Document ---
Author Organization [facility] Address [address] [place] [address]- Care Team Providers Care Printing Mechanist Name Role Phone Miles OTOOLE, Bernie Hardy Primary Care Physician [phone] [facility] Date[facility]s): 05[facility]09[facility]21 - 07/13/21 [facility] [address] [place] [address]- Attending Physician: Heike Lara MD Admitting Physician: Heike Lara MD Referring Physician: Gina Bhat MD Allergies, Adverse Reactions, [...] (oldterm) 8 03/14/09 Given 1Result Comment: [02/13/2018] [id number] 2Result Comment: [02/08/2017] [facility] [id number] 317 02 3Result Comment: [01/24/2013] ORDERRED BY GINA BHAT MD 4Result Comment: [09/19/2017] [id number] 5Admin Note: vis given 6Admin Note: BIOMEDICAL [...] AND VOMITING, # 30 tablet, 0 Refills, [facility], 163, cm, 06/07/21 [...] 02/23/21 16:10:00 EDT, Route to Pharmacy Electronically, [facility], Rx resent from 07/26/20, 163, [...]
--- OUTSIDE RECORDS SUMMARY | 2024-01-11 13:50 | XMS_ITS | Continuity of Care Document ---
Author Organization [facility] Juventino David lt Address [address] [place] [address]- Care Team Providers Care Telecommunications Analyst Name Role Phone Miles OTOOLE, Bernie Hardy Primary Care Physician Encounter [facility] Date(s): 05/24/23 - 06/23/23 [facility] Adult [address] [place] [address]- Allergies, Adverse Reactions, Alerts Substance Reaction Severity [...] (oldterm) 8 03/14/09 Given 1Result Comment: [09/19/2017] [id number] 2Result Comment: [02/13/2018] [id number] 3Result Comment: [02/08/2017] [facility] [id number] 317 02 4Result Comment: [01/24/2013] ORDERRED BY [...] EST, Route to Pharmacy Electronically, [facility], 163, cm, 03/07/23 8:42:00 [...] EDT, Route to Pharmacy Electronically, [facility], 163,cm, 11/22/20 12:47:00 EDT, Height [...] tablet, Refills 5, Maintenance, 03/27/23 23:12:00 EST, [facility], [facility], [...] Role: Lifetime Consulting Physician Address: Address: [address] [place] [address] [address] [place] [address]- [place] Name: Lore Clinton RN Position: [facility] RN Member Role: Primary Care Nurse Name: Miles OTOOLE, Bernie Hardy Position: [facility] PCO Associate Professional Member Role: PCP Address: Address: [address] [place] [address]- [place] Name: Gregg Hardy MD Position: [facility] Pulmonary MD Member Role: Lifetime Consulting Physician Address: Address: [address] [place] [address]- Care Team Related Persons Name: ONDINA SINGLETARY Address: home [address] [place] [address] Name: BLAIRE JACOB Address: home [address] [place] [address]
--- OUTSIDE RECORDS SUMMARY | 2024-01-11 13:50 | XMS_ITS | Continuity of Care Document ---
Author Organization [facility] Sj Jauregui David lt Address [address] [place] [address]- Care Team Providers Care Director Of Distance Learning Name Role Phone Perlita CHAIDEZ, Gina Smith Primary Care Physician [phone] [facility] 12[facility]19 - 01/04/20 [facility] Adult [address] [place] [address]- [facility] Allergies, Adverse Reactions, Alerts Substance Reaction Severity Status morphine vomiting Active Flonase Active Reglan double vision Active Other Food Allergy 1 Active Demerol HCl vomiting Active Adhesive Bandage [...] (oldterm) 8 03/14/09 Given 1Result Comment: [02/13/2018] [id number] 2Result Comment: [02/08/2017] [facility] [id number] 317 02 3Result Comment: [01/24/2013] ORDERRED BY GINA GAINES MD 4Result Comment: [09/19/2017] [id number] 5Admin Note: vis given 6Admin Note: BIOMEDICAL [...] EDT, Route to Pharmacy Electronically, [facility], 163, cm, 10/01/19 13:40:00 EDT, Height, 82.6, kg, ... Start Date: 12/09/19 Status: Ordered Diflucan 150 mg oral tablet 1 tablet = 150 mg, By Mouth, Once, may repeat x1, # 2 tablet, 1 Refills, Soft Stop, 12/29/19 16:39:00 EDT, [facility], 163, cm, 12/15/19 9:18:00 EDT, [...] 1 Refills, Maintenance, 07/20/19 23:41:00 EDT, Tablet, [facility], 163, cm, 07/11/19 11:24:00 EST, Height, 82.6, kg, 05/24/18 7:14:00EST, Dry Weight Start Date: 07/20/19 Status: Ordered lisinopril 2.5 mg oral tablet 2.5 mg, 1, tablet, By Mouth, Daily, # 30 tablet, Refills 11, Tot. Refills 11, Maintenance, 10/02/2013:10:00 EDT, Route to Pharmacy Electronically, [facility], 163, cm, 10/01/19 13:40:00 EDT, [...] tablet, 2 Refills, Maintenance, 12/29/19 13:42:00 EDT, [facility], 163, cm, 12/15/19 9:18:00 EDT, [...] Requisition Start Date: 05/19/16 Status: Ordered Pen [place], 31 G x 5 mm BD Ultra [...] 05/30/19 11:43:00 EST, Route to Pharmacy Electronically, [facility], 163, cm, 05/30/19 11:08:00 EST, Height, 82.6, kg, 05/24/18 7:14:00 EST,... Start Date: 05/30/19 Status: Ordered SUMAtriptan 100 mg oral tablet 1 tablet, By Mouth, Daily, PRN NEEDED FOR MIGRAINE, # 9 tablet, Refills 11 Tot. Refills 11, MAY REPEAT DOSE IN 2 HOURS IF NEEDED, [facility] Start Date: 04/14/19 Status: Ordered topiramate 50 mg oral tablet See Instructions, 1 tablet in morning, 3 tablets at bedtime, # 120 tablet, 5 Refills, Maintenance, 12/30/19 9:06:00 EDT, [facility], 163, cm, 12/15/19 9:18:00 EDT, [...] tablet, 1 Refills, Maintenance, 12/16/19 11:23:00 EDT, [facility], 163, cm, 12/15/19 9:18:00 EDT, [...]
--- OUTSIDE RECORDS SUMMARY | 2024-01-11 13:50 | XMS_ITS | Continuity of Care Document ---
Author Organization [facility] Sj Jauregui David lt Address [address] [place] [address]- Care Team Providers Care Food Safety Specialist Name Role Phone Miles OTOOLE, Bernie Hardy Primary Care Physician [phone] Encounter [facility] Date(s): 07/06/22 - 08/05/22 [facility] Sj Figueroaley Adult [address] [place] [address]- Attending Physician: Admtr, [id number] Admitting Physician: Admtr, [...] (oldterm) 8 03/14/09 Given 1Result Comment: [09/19/2017] [id number] 2Result Comment: [02/13/2018] [id number] 3Result Comment: [02/08/2017] [facility] [id number] 4Result Comment: [01/24/2013] ORDERRED BY GINA BHAT MD 5Admin Note: vis given 6Admin Note: [...] 05/25/22 6:49:00 EST, Route to Pharmacy Electronically, [facility], 163, cm, 04/04/22 7:05:00 EST, [...] 12/01/20 15:40:00 EDT, Route to Pharmacy Electronically, [facility], 163,cm, 11/22/20 12:47:00 EDT, Height [...] EDT, Route to Pharmacy Electronically, [facility], Partial fill upon patient request [...] 0 Refills, Maintenance, 09/02/21 10:08:00EDT, [facility], Partial fill upon patient request if the prescription is for a schedule II opioid drug., 163, cm, 08/29/21 11:01:00 EDT,... Start Date: 09/02/21 Status: Ordered ondansetron 8 mg oral tablet See Instructions, TAKE 1 TABLET BY MOUTH 3 TIMES A DAY NEEDED FOR NAUSEA AND VOMITING, # 30 tablet, 0 Refills, [email or web address], 163, cm, 06/07/21 [...] Personnel Name: Marisa CHAIDEZ, Neto Osorio Position: [facility] Renal MD Member Role: Lifetime Consulting Physician Address: Address: [address] [place] [address]- [place] Name: Lore Clinton RN Position: [facility] RN Member Role: Primary Care Nurse Name: Bernie Aquino NP Position: [facility] PCO Associate Professional Member Role: PCP Address: Address: [address] [place] [address]- [place] Name: Gregg Hardy MD Position: [facility] Pulmonary MD Member Role: Lifetime Consulting Physician Address: Address: [address] [place] [address]- [place] Care Team Related Persons Name: GEMINI MERRITT Address: home [address] [place] [address] Name: BLAIRE JACOB Address: home [address] [place] [address]
--- OUTSIDE RECORDS SUMMARY | 2024-01-11 13:50 | XMS_ITS | Continuity of Care Document ---
Author Organization [facility] David lt Address [address] [place] [address]- Care Team Providers Care Paedodontist Name Role Phone Gina Bhat MD Primary Care Physician [facility] Date(s): 12/01/20 - 12/31/20 [facility] Adult [address] [place] [address]- Attending Physician: Admtr, [place] Admitting Physician: Admtr, Ar8 Referring Physician: Admtr, Ar8 Allergies, Adverse Reactions, [...] (oldterm) 8 03/14/09 Given 1Result Comment: [02/13/2018] [id number] 2Result Comment: [02/08/2017] [facility] [id number] 3Result Comment: [01/24/2013] ORDERRED BY GINA BHAT MD 4Result Comment: [09/19/2017] [id number] 5Admin Note: vis given 6Admin Note: BIOMEDICAL [...] Refills, Soft Stop, 11/01/20 15:04:00 EDT, Tablet, [facility], Partial fill upon [...] Maintenance, 10/26/20 11:52:00EDT, Route to Pharmacy Electronically, [facility], 163, cm, 09/23/20 9:42:00 EDT,Height [...] Weight Start Date: 10/01/19 Status: Ordered Pen Providence, 31 G x 5 mm BD Ultra Fine III See Instructions, # 150 each, Refills 6, Tot. Refills 6, Maintenance, for use 4x daily with Lantus and humalog insulin E11.65, 06/24/18 10:09:38 EST, Compound Start Date: 06/24/18 Status: Ordered Pen Providence, 31 G x 5 mm BD Ultra [...] 07/26/20 10:28:00 EDT, Route to Pharmacy Electronically, [facility], 163, cm, 07/26/20 8:40:00 EDT, Height Start Date: 07/26/20 Status: Ordered SUMAtriptan 100 mg oral tablet 1 tablet, By Mouth, Daily, PRN NEEDED FOR MIGRAINE, MAY REPEAT DOSE IN 2 HOURS IF NEEDED, # 9 tablet, 11 Refills, Soft Stop, 05/10/20 14:37:00 EST, [facility], 163, cm, 01/16/20 10:48:00 EDT, Height, 82.6, kg, 05/24/18 7:14:00 EST, . Start Date: 05/10/20 Status: Ordered topiramate 50 mg oral tablet See Instructions, 1 tablet in morning, 3 tablets at bedtime, # 120 tablet, 5 Refills, Maintenance, 07/06/20 10:04:00 EST, [facility], 163, cm, 05/13/20 9:12:00 EST, Height Start Date: 07/06/20 Status: Ordered Trulicity Pen 0.75 mg/0.5 mL subcutaneous solution 0.5 mL = 0.75 mg, Subcutaneous Injection, Every week, rotate injection sites, # 2 mL, 5 Refills, Maintenance, 11/01/20 14:54:00 EDT, Solution, [facility], Partial fill upon patient [...]
--- OUTSIDE RECORDS SUMMARY | 2024-01-11 13:50 | XMS_ITS | Continuity of Care Document ---
Author Organization [facility] [place] David lt Address [address] [place] [address]- Care Team Providers Care Brick Dropper Name Role Phone Miles OTOOLE, Bernie Hardy Primary Care Physician [facility] Date(s): 08/31/21 - 09/30/21 [facility] [place] Adult [address] [place] [address]- Allergies, Adverse Reactions, Alerts Substance Reaction Severity [...] (oldterm) 8 03/14/09 Given 1Result Comment: [02/13/2018] [id number] 2Result Comment: [02/08/2017] [facility] [id number] 3Result Comment: [01/24/2013] ORDERRED BY GINA GAINES MD 4Result Comment: [09/19/2017] [id number] 5Admin Note: vis given 6Admin Note: BIOMEDICAL [...] 02/23/21 16:10:00 EDT, Route to Pharmacy Electronically, [facility], Rx resent from 07/26/20, 163, [...]
--- OUTSIDE RECORDS SUMMARY | 2024-01-11 13:50 | XMS_ITS | Continuity of Care Document ---
Author Organization [facility] [place] David lt Address [address] [place] [address]- Care Team Providers Care Camera Engineer Name Role Phone Miles OTOOLE, Bernie Hardy Primary Care Physician [facility] Date(s): 08/12/21 - 09/11/21 [facility] Sj Figueroaley Adult [address] [place] [address]- Allergies, Adverse Reactions, Alerts Substance Reaction Severity [...] (oldterm) 8 03/14/09 Given 1Result Comment: [02/13/2018] [id number] 2Result Comment: [02/08/2017] [facility] [id number] 317 02 3Result Comment: [01/24/2013] ORDERRED BY GINA GAINES MD 4Result Comment: [09/19/2017] [id number] 5Admin Note: vis given 6Admin Note: BIOMEDICAL [...] EDT, Route to Pharmacy Electronically, [email or web address], Rx resent from 07/26/20, 163, [...]
--- OUTSIDE RECORDS SUMMARY | 2024-01-11 13:50 | XMS_ITS | Continuity of Care Document ---
Author Organization [facility] David Address [address] [place] [address]- Care Team Providers Care Web Content Coordinator Name Role Phone Miles OTOOLE, Bernie Hardy Primary Care Physician [phone] [place] [facility] [place]s): 10/15/23 - 10/22/23 [facility] Adult [address] [place] [address]- Encounter Diagnosis Asthma exacerbation(Discharge Diagnosis) - 10/15/23 Attending Physician: Miles OTOOLE, Bernie Hardy Allergies, Adverse [...] (oldterm) 8 03/14/09 Given 1Result Comment: [09/19/2017] [id number] 2Result Comment: [02/13/2018] [id number] 3Result Comment: [02/08/2017] [facility] [id number] 317 02 4Result Comment: [01/24/2013] ORDERRED BY [...] 05/21/23 11:57:00 EST, Route to Pharmacy Electronically, [facility], 163, cm, 03/07/23 8:42:00 EDT, Height, 76.2, kg, 01/06/22 8:38:00 EDT, Dry Weight Start Date: 05/21/23 Status: Ordered Combivent Respimat 20 mcg-100 mcg/inh inhalation aerosol 1 puffs, Inhalation, 4 times a day, # 1 each, 0 Refills, Maintenance, 10/15/23 8:40:00 EDT, [facility], Partial fill upon patient request [...] 12/01/20 15:40:00 EDT, Route to Pharmacy Electronically, [facility], 163,cm, 11/22/20 12:47:00 EDT, Height [...] 10/01/23 18:42:00 EDT, Route to Pharmacy Electronically, [facility], 163, cm, 09/06/23 10:02:00 EDT, [...] 60 capsule, 6 Refills, Maintenance, 10/26/22 11:06:00EDT, [facility], Partial fill upon patient request if the prescription is for a schedule II opioid drug., 163, cm, 09/04/22 7:38:00 EDT,... Start Date: 10/26/22 Status: Ordered ondansetron 4 mg oral tablet 1 tablet, By Mouth, Every 8 hours, # 12 tablet, 0 Refills, Maintenance, 08/28/23 13:41:00 EDT, [facility], 163, cm, 08/22/23 8:24:00 EDT, [...] Dates Health Status Clinical Service Informant Asthma exacerbation Discharge Diagnosis 10/15/23 Vital Signs Most recent to oldest [Reference Range]: 1 Height 163 cm (10/15/23 8:33 AM) Weight 79.4 kg (10/15/23 8:33 AM) Oxygen Saturation [94-100 %] 100 % (10/15/23 8:33 AM) Pulse Rate [55-90 bpm] 91 bpm *H* (10/15/23 8:33 AM) Body Mass Index [18.5-24.99 kg/m2] 29.88 kg/m2 *H* (10/15/23 8:33 AM) Blood Pressure [90-138/55-84 mm Hg] 109/ 75mm Hg (10/15/23 8:33 AM) Blood pressure sites Arm, left (10/15/23 8:33 AM) Weight Obtained Via Standing scale (10/15/23 8:33 AM) Social History Social History Type Response Smoking Status Never smoker entered on: 05/12/13 Sex Note * Merly Mccoy: PERFORM Event Display: Patient Education/Instruction Authored Date: [id number] Ambulatory Adult Visit Summary [facility] Adult [facility] [address] [address] Name: HEMANT LEE : 1975?? Visit: 10/15/2023 08:31?? Ambulatory Visit Instructions ?? Your Care Team Primary Care Provider Bernie Aquino NP? This Visit Provider Bernie Aquino NP Vitals Signs Pulse Rate:??91 bpm??High Height: 163 cm Systolic Blood Pressure: 109 mm Hg Weight: 79.4 kg Diastolic Blood Pressure: 75 mm Hg Body Mass Index:??29.88 kg/m2??High Oxygen Saturation: 100 % Body surface area: 1.9 What to do next Scheduled Follow-Up Appointments 2023 10:15 AM EDT ?? Where: [facility] Rad[facility] [address], [address] [place] [address]- Status: Pending Sunday 9:45 AM EDT ?? With: Kelli Shin MD Where: [facility] [address] [place] [address]- Status: Pending Medications The list below reflects the information in our records and provided by you today along with any changes made during this visit. Please continue your medications until treatment is completed or stopped by your provider. If this is different from the information you have or there are other questions,please contact the prescribing provider. What How Much When Instructions New Albuterol/ Ipratropium (Combivent Respimat 20 mcg-100 mcg/ inh inhalation aerosol) 1 puff(s) Inhalation 4 times a day Duration: 30 Days Pickup at [facility] Unchanged Acetaminophen (Tylenol 8 Hour Caplet 650 mg oral tablet, extended release) 1 tab(s) Oral Every 8 hours Unchanged Acetaminophen/ Butalbital/ Caffeine (Fioricet oral capsule) 1 capsule Oral Once as needed for as needed repeat in 2 hours if headache is still present ?? Unchanged Amiloride (aMILoride 5 mg oral tablet) [...] Unchanged Levothyroxine (levothyroxine 0.05 mg oral tablet) 1 tab(s) Oral Daily Go for blood test in 6 weeks. ?? Unchanged Chaparrito (lithium 150 mg oral capsule) 3 capsule [...] MORNING AND 3 TABLETS AT BEDTIME. ?? Pharmacy Information [facility]: [address] [place], [place] [id number] [phone] Medications and Immunizations Administered Medications Given During [...] are strongly encouraged to quit. Please call [facility] Vital Records Link at [phone] or 3-927-019BDS.com.au (1960) or log in to [email or web address] for referrals to smoking cessation programs. ?? The National Suicide Prevention Hotline is available 04/12 if you or someone you know needs to find a reason to keep living. By calling 1-785-260-Collect (1245) you'll be connected to a skilled, trained counselor at a crisis center in your area. [facility] Vital Records Portal You can view and manage your care through the patient portal or by using a health care chinmay of your choosing. [employer] is a website that allows you to securely view your medical information including your hospital discharge summary, office visit summaries, medications and follow-up visits. You can also request appointments, renew medications, and request access to your medical information using a health care chinmay of your choosing, or just ask a question. You can enroll at [email or web address] or register during your next office visit. [facility], in keeping with [facility] guidance, no longer requires face masks [...] primary care provider, you may find a [facility] provider by calling [facility] Vital Records Link at [phone]. Patient Care team information Care Team Personnel Name: Marisa CHAIDEZ, Neto Osorio Position: [facility] Renal MD Member Role: Lifetime Consulting Physician Address: Address: [address] [place] [address] [address] [place] [address]- [place] Name: Lore Clinton RN Position: [facility] RN Member Role: Primary Care Nurse Name: Bernie Aquino NP Position: [facility] PCO Associate Professional Member Role: PCP Address: Address: [address] [place] [address]- [place] Name: Gregg Hardy MD Position: [facility] Pulmonary MD Member Role: Lifetime Consulting Physician Address: Address: [address] [place] [address]- [place] Care Team Related Persons Name: ONDINA SINGLETARY Address: home [address] [place] [address] Name: BLAIRE JACOB Address: home [address] [place] [address]
--- OUTSIDE RECORDS SUMMARY | 2024-01-11 13:50 | XMS_ITS | Continuity of Care Document ---
Author Organization [facility] David lt Address [address] [place] [address]- Care Team Providers Care Manager Enrollment Name Role Phone Miles OTOOLE, Bernie Hardy Primary Care Physician Encounter [facility] Date(s): 07/12/22 - 08/11/22 [facility] Adult [address] [place] [address]- Allergies, Adverse Reactions, Alerts Substance Reaction Severity [...] (oldterm) 8 03/14/09 Given 1Result Comment: [09/19/2017] [id number] 2Result Comment: [02/13/2018] [id number] 3Result Comment: [02/08/2017] [facility] [id number] 317 02 4Result Comment: [01/24/2013] ORDERRED BY [...] 05/25/22 6:49:00 EST, Route to Pharmacy Electronically, [facility], 163, cm, 04/04/22 7:05:00 EST, [...] 12/01/20 15:40:00 EDT, Route to Pharmacy Electronically, [facility], 163,cm, 11/22/20 12:47:00 [...] Role: Lifetime Consulting Physician Address: Address: [address] [place] [address], [address] [place] [address]- [place] Name: Lore Clinton RN Position: [facility] RN Member Role: Primary Care Nurse Name: Miles OTOOLE, Bernie Hardy Position: [facility] PCO Associate Professional Member Role: PCP Address: Address: [address] [place] [address]- [place] Name: Gregg Hardy MD Position: [facility] Pulmonary MD Member Role: Lifetime Consulting Physician Address: Address: [address] [place] [address]- Care Team Related Persons Name: MERRITT SINGLETARY Address: home [address] [place] [address] Name: BLAIRE JACOB Address: home [address] [place] [address]
--- OUTSIDE RECORDS SUMMARY | 2024-01-11 13:50 | XMS_ITS | Continuity of Care Document ---
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 Attending Physician: Not on Staff, Attending MD Allergies, Adverse Reactions, Alerts Substance Reaction Severity Status azithromycin 1 increases sx's Active morphine vomiting Active Augmentin 2 increases sx Active Reglan double vision Active Demerol HCl vomiting Active Cats sneezing Active Flonase rhinitis Active Adhesive Bandage rash Active 1Diarrhea 2makes [...] (oldterm) 8 03/14/09 Given 1Result Comment: [02/13/2018] [id number] 2Result Comment: [02/08/2017] [facility] [id number] 317 02 3Result Comment: [01/24/2013] ORDERRED BY GINA GAINES MD 4Result Comment: [09/19/2017] [id number] 5Admin Note: vis given 6Admin Note: BIOMEDICAL [...] EDT, Route to Pharmacy Electronically, [facility], 163,cm, 11/22/20 12:47:00 EDT, Height [...] Service Informant Nephrogenic diabetes insipidus Discharge Diagnosis 03/23/22 Vital Signs Most recent to oldest [Reference Range]: 1 Height 163 cm (03/23/22 6:51 AM) Weight 81.4 kg (03/23/22 6:51 AM) Oxygen Saturation [94-100 %] 100 % (03/23/22 6:51 AM) Pulse Rate [55-90 bpm] 99 bpm *H* (03/23/22 6:51 AM) Body Mass Index [18.5-24.99 kg/m2] 30.64 kg/m2 *>HHI* (03/23/22 6:51 AM) Blood Pressure [90-138/55-84 mm Hg] 101/ 68mm Hg (03/23/22 6:51 AM) Blood pressure sites Arm, left (03/23/22 6:51 AM) Weight Obtained Via Standing scale (03/23/22 6:51 AM) Social History Social History Type Response Smoking Status Never smoker entered on: 05/12/13 Sex Note * Katiuska Hernandez: PERFORM, SIGN, VERIFY Event Display: Patient Education/Instruction Authored Date: [id number] [facility] *BMP So [place] [facility] Clinical Summary Name HEMANT LEE Age 46 Years 1975 PCP Miles OTOOLE, Bernie Hardy PCP Visit Date 03/23/2022 06:44:00 Additional Instructions: Scheduled Appointments?? Future Appointments ?*No??[facility] ?[address]??[place],??[place],??[address] ?Phone:??--?Fax:??-- ?Appt. Date:??05/02/2022?1:00 PM ?Scheduled Provider:??Rober CHAIDEZ, Nunu Gaytan ?*BMP??[facility] ?[address] ?Phone:??--?Fax:??-- ?Appt. Date:??05/17/2022?8:50 AM ?Scheduled Provider:??Miles OTOOLE , Bernie He Follow-Up Instructions ?? Diagnosis Medications: Please continue your medications until treatment is completed or stopped by your provider. Discuss any questions related to medications with your provider. New Medications [facility], [address] [place], [place] [id number], [phone] Potassium Chloride (potassium chloride 10 mEq oral capsule, extended release) 1 capsule Oral Daily.Refills: 0. Next Dose: Medications to Continue Taking That Have Changed [facility], [address] [place], [place] [id number], [phone] - Atorvastatin (atorvastatin 20 mg oral tablet) 1 tab(s) Oral Daily. replace 10mg. Refills: 3. Next Dose: Medications to Continue with No Changes These medications were not printed or sent to your pharmacy Acetaminophen (Tylenol 8 Hour Caplet 650 mg oral tablet, extended release) 1 tab(s) Oral every 8 hours. Refills: 0. Next Dose: Acetaminophen/Butalbital/Caffeine (Fioricet oral capsule) 1 capsule Oral once as needed. repeat in 2 hours if headache is still present. Refills: 0. Next Dose: Benztropine 5 Milligram Oral twice [...] 0.3 Milligram Intramuscular once. Next Dose: Fluconazole (fluconazole 150 mg oral [...] Dose: Metformin (metFORMIN 500 mg oral tablet) 1 tab(s) Oral twice a day. Refills: 0. Next Dose: Miscellaneous Rx (Serum Calcium, Albumin, [...] as needed Pain , Moderate. Next Dose: rimegepant (Nurtec ODT) 75 Milligram Oral once. 1 TAB EVERY OTHER DAY. Next Dose: Rizatriptan (rizatriptan 10 mg oral tablet) 1 tab(s) Oral. PRN. Next Dose: sitagliptin (Januvia 50 mg oral [...] azithromycin Medications Given This Visit Future Orders ?Potassium Plasma? Order Date:03/23/22?- Complete on or after?03/23/22 ?Hemoglobin A1C (Monitoring)? Order Date:03/23/22?- Complete on or after?03/23/22 Vital Signs Height 163 cm Weight 81.4 kg BMI 30.64 kg/m2 Blood Pressure 101 mm Hg/68 mm Hg Temperature Pulse Rate 99 bpm Respiratory Rate 02 Sat Mode of Delivery 100 %/ You can now view a summary of your hospital visit from the comfort of your home through a free online portal called [email or web address]. [email or web address] is a website that allows you to securely view your medical information including discharge summary, medications and follow-up visits. ??You can alsosend a secure electronic message to your doctor???s office to request appointments, renew medications or just ask a question. You can enroll at [email or web address] or register during your next office [...] care provider, you may find a [facility] provider by calling [facility] [employer] Link at [phone]. For information about the plan of care [...] Marisa CHAIDEZ, Neto Osorio Position: [facility] Renal MD Member Role: Lifetime Consulting Physician Address: Address: [address] [place] [address], [address] [place] [address]- [place] Name: Lore Clinton RN Position: [facility] RN Member Role: Primary Care Nurse Name: Miles OTOOLE, Bernie Hardy Position: [facility] PCO Associate Professional Member Role: PCP Address: Address: [address] [place] [address]- [place] Name: Gregg Hardy MD Position: [facility] Pulmonary MD Member Role: Lifetime Consulting Physician Address: Address: [address] [place] [address]- Care Team Related Persons Name: MERRITT SINGLETARY Address: home [address] [place] [address] Name: BLAIRE JACOB Address: home [address] [place] [address]
--- OUTSIDE RECORDS SUMMARY | 2024-01-11 13:51 | XMS_ITS | Continuity of Care Document ---
Author Organization [facility] [place] David lt Address [address] [place] [address]- Care Team Providers Care It Engineer Name Role Phone Miles OTOOLE, Bernie Hardy Primary Care Physician [place] [facility] Date(s): 10/23/22 - 11/22/22 [facility] Adult [address] [place] [address]- Allergies, Adverse Reactions, Alerts Substance Reaction Severity Status azithromycin 1 increases sx's Active Flonase rhinitis Active Augmentin 2 increases sx Active NSAIDs Active morphine vomiting Active Reglan double vision Active Demerol HCl [...] (oldterm) 8 03/14/09 Given 1Result Comment: [09/19/2017] [id number] 2Result Comment: [02/13/2018] [id number] 3Result Comment: [02/08/2017] [facility] [id number] 317 02 4Result Comment: [01/24/2013] ORDERRED BY [...] 05/25/22 6:49:00 EST, Route to Pharmacy Electronically, [facility], 163, cm, 04/04/22 7:05:00 EST, [...] 12/01/20 15:40:00 EDT, Route to Pharmacy Electronically, [facility], 163,cm, 11/22/20 12:47:00 EDT, Height [...] tablet, Refills 5, Maintenance, 10/01/22 10:34:00 EDT[facility] [...] Personnel Name: Marisa CHAIDEZ, Neto Osorio Position: [facility] Renal MD Member Role: Lifetime Consulting Physician Address: Address: [address] [place] [address], [address] [place] [address]- [place] Name: Lore Clinton RN Position: [facility] RN Member Role: Primary Care Nurse Name: Bernie Aquino NP Position: [facility] PCO Associate Professional Member Role: PCP Address: Address: [address] [place] [address]- [place] Name: Gregg Hardy MD Position: [facility] Pulmonary MD Member Role: Lifetime Consulting Physician Address: Address: [address] [place] [address]- Care Team Related Persons Name: ONDINA SINGLETARY Address: home [address] [place] [address] Name: BLAIRE JACOB Address: [address] [place] [address]
--- OUTSIDE RECORDS SUMMARY | 2024-01-11 13:51 | XMS_ITS | Continuity of Care Document ---
Author Organization [facility] Juventino David Address [address] [place] [address]- Care Team Providers Care Keypuncher Name Role Phone Miles OTOOLE, Bernie Hardy Primary Care Physician [phone] [place] [facility] [place]13[place]23 [place] 09/12/23 [facility] Adult [address] [place] [address]- Allergies, Adverse Reactions, Alerts Substance Reaction Severity Status azithromycin 1 increases sx's Active morphine vomiting Active Flonase rhinitis Active NSAIDs Active Augmentin 2 increases sx [...] (oldterm) 8 03/14/09 Given 1Result Comment: [09/19/2017] [id number] 2Result Comment: [02/13/2018] [id number] 3Result Comment: [02/08/2017] [facility] [id number] 317 02 4Result Comment: [01/24/2013] ORDERRED BY [...] EST, Route to Pharmacy Electronically, [facility], 163, cm, 03/07/23 8:42:00 EDT, [...] 12/01/20 15:40:00 EDT, Route to Pharmacy Electronically, [facility], 163,cm, 11/22/20 12:47:00 EDT, Height [...] Role: Lifetime Consulting Physician Address: Address: [address] [place] [address] [address] [facility] [address]- Name: Oz SHERWOOD, Lore Position: Arnav RN Member Role: Primary Care Nurse Name: Miles OTOOLE, Bernie Hardy Position: [facility] PCO Associate Professional Member Role: PCP Address: Address: [address] [place] [address]- Name: Gregg Hardy MD Position: [facility] Pulmonary MD Member Role: Lifetime Consulting Physician Address: Address: [address] [place] [address]- Care Team Related Persons Name: ONDINA SINGLETARY Address: [address] [place] [address] Name: BLAIRE JACOB Address: home [address] [place] [address]
--- OUTSIDE RECORDS SUMMARY | 2024-01-11 13:51 | XMS_ITS | Continuity of Care Document ---
Author Organization [facility] David lt Address [address] [place] [address]- Care Team Providers Care Precise Winder Name Role Phone Miles OTOOLE, Bernie Hardy Primary Care Physician [facility] Date[facility]): 06/29/21 - 07/29/[address] [facility] Adult [address] [place] [address]- Allergies, Adverse Reactions, Alerts Substance Reaction Severity [...] (oldterm) 8 03/14/09 Given 1Result Comment: [02/13/2018] [id number] 2Result Comment: [02/08/2017] [facility] [id number] 317 02 3Result Comment: [01/24/2013] ORDERRED BY GINA GAINES MD 4Result Comment: [09/19/2017] [id number] 5Admin Note: vis given 6Admin Note: BIOMEDICAL [...] 10/13/21 16:10:00 EDT, Route to Pharmacy Electronically, [email or web address], Rx resent from 07/26/20, 163, cm, 02/21/21 15:42:00 EDT, Height, 81, kg, 09... Start Date: 02/23/21 Status: Ordered topiramate 50 mg oral tablet See Instructions, TAKE 1 TABLET IN THE MORNING AND 3 TABLETS AT BEDTIME., # 120 tablet, 5 Refills, [facility], 163, cm, 06/13/21 9:32:00 EST, [...] 5 Refills, Maintenance, 05/04/21 16:41:00 EST, Solution, [email or web address], Partial fill upon patient request [...]
--- OUTSIDE RECORDS SUMMARY | 2024-01-11 13:51 | XMS_ITS | Continuity of Care Document ---
Author Organization [facility] Address [address] [place] [address]- Care Team Providers Care Leadership Program Intern Name Role Phone Perlita CHAIDEZ, Gina Smith Primary Care Physician [facility] Date[facility]s): 04/[facility]/20 - 05/05/20 [facility] [address] [place], [place] [address] Allergies, Adverse Reactions, Alerts Substance Reaction [...] (oldterm) 8 03/14/09 Given 1Result Comment: [02/13/2018] [id number] 2Result Comment: [02/08/2017] [facility] [id number] 317 02 3Result Comment: [01/24/2013] ORDERRED BY GINA GAINES MD 4Result Comment: [09/19/2017] [id number] 5Admin Note: vis given 6Admin Note: BIOMEDICAL [...] Soft Stop, 12/29/19 16:39:00 EDT, [facility], 163, cm, 12/15/19 9:18:00 EDT, [...] EDT, Route to Pharmacy Electronically, [facility], 163, cm, 10/01/19 13:40:00 EDT, [...] Maintenance, 07/20/19 23:41:00 EDT, Tablet, [facility], 163, cm, 07/11/19 11:24:00 EST, Height, 82.6, kg, 05/24/18 7:14:00EST, Dry Weight Start Date: 07/20/19 Status: Ordered lisinopril 2.5 mg oral tablet 2.5 mg, 1, tablet, By Mouth, Daily, # 30 tablet, Refills 11, Tot. Refills 11, Maintenance, 10/02/2013:10:00 EDT, Route to Pharmacy Electronically, [facility], 163, cm, 10/01/19 13:40:00 EDT, [...] Refills, Maintenance, 04/05/20 11:00:00 EST, [facility], 163, cm, 01/16/20 10:48:00 EDT, [...] Requisition Start Date: 05/19/16 Status: Ordered Pen Congress, 31 G x 5 mm BD Ultra Fine III See Instructions, # 150 each, Refills 6, Tot. Refills 6, Maintenance, for use 4x daily with Lantus and humalog insulin E11.65, 06/24/18 10:09:38 EST, Compound Start Date: 06/24/18 Status: Ordered Pen Congress, 31 G x 5 mm BD Ultra [...] 05/02/20 21:20:00 EST, Route to Pharmacy Electronically, [facility], 163, cm, 01/16/20 10:48:00 EDT, Height, 82.6, kg, 05/24/18 7:14:00 EST, . Start Date: 05/02/20 Status: Ordered SUMAtriptan 100 mg oral tablet 1 tablet, By Mouth, Daily, PRN NEEDED FOR MIGRAINE, # 9 tablet, Refills 11 Tot. Refills 11, MAY REPEAT DOSE IN 2 HOURS IF NEEDED, [facility] Start Date: 04/14/19 Status: Ordered topiramate 50 mg oral tablet See Instructions, 1 tablet in morning, 3 tablets at bedtime, # 120 tablet, 5 Refills, Maintenance, 12/30/19 9:06:00 EDT, [facility], 163, cm, 12/15/19 9:18:00 EDT, [...]
--- OUTSIDE RECORDS SUMMARY | 2024-01-11 13:51 | XMS_ITS | Continuity of Care Document ---
Author Organization [facility] Juventino David lt Address [address] [place] [address]- Care Team Providers Care Mesmerist Name Role Phone Miles OTOOLE, Bernie Hardy Primary Care Physician [phone] Encounter [facility] Date(s): 12/10/23 - 01/09/24 [facility] [place] Adult [address] [place] [address]- Allergies, Adverse Reactions, Alerts Substance Reaction Severity [...] (oldterm) 8 03/14/09 Given 1Result Comment: [09/19/2017] [id number] 2Result Comment: [02/13/2018] [id number] 3Result Comment: [02/08/2017] [facility] [id number] 317 02 4Result Comment: [01/24/2013] ORDERRED BY [...] EDT, Route to Pharmacy Electronically, [facility], Partial fill upon patient request if the prescr... Start Date: 12/03/23 Stop Date: 05/01/24 Status: Ordered colchicine 0.6 mg oral tablet 1, tablet, By Mouth, 2 times a day, # 60 Unknown, Refills 11, Maintenance, 05/21/23 11:57:00 EST, Route to Pharmacy Electronically, [facility], 163, cm, 03/07/23 8:42:00 EDT, [...] EDT, Route to Pharmacy Electronically, [facility], 163, cm, 09/06/23 10:02:00 EDT, [...] 120 tablet, 5 Refills, 09/07/23 10:21:00 EDT, [facility], 163, cm, 09/06/23 10:02:00 EDT, [...] Team Personnel Name: Neto Cunningham MD Position: [facility] Renal MD Member Role: Lifetime Consulting Physician Address: Address: [address] [place] [address] [address] [place] [address]- [place] Name: Lore Clinton RN Position: [facility] AMB Nurse Member Role: Primary Care Nurse Name: Bernie Aquino NP Position: [facility] PCO Associate Professional Member Role: PCP Address: Address: [address] [place] [address]- [place] Name: Gregg Hardy MD Position: [facility] Pulmonary MD Member Role: Lifetime Consulting Physician Address: Address: [address] [place] [address]- Care Team Related Persons Name: ONDINA SINGLETARY Address: home [address] [place] [address] Name: BLAIRE JACOB Address: home [address] [place] [address]
--- OUTSIDE RECORDS SUMMARY | 2024-01-11 13:51 | XMS_ITS | Continuity of Care Document ---
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 Campylobacter enteritis(Discharge Diagnosis) - 06/06/23 Attending Physician: Not on Staff, Attending MD Referring Physician: Bernie Aquino NP Allergies, Adverse Reactions, [...] (oldterm) 8 03/14/09 Given 1Result Comment: [09/19/2017] [id number] 2Result Comment: [02/13/2018] [id number] 3Result Comment: [02/08/2017] [facility] [id number] 317 02 4Result Comment: [01/24/2013] ORDERRED BY [...] 05/21/23 11:57:00 EST, Route to Pharmacy Electronically, [facility], 163, cm, 03/07/23 8:42:00 EDT, [...] 12/01/20 15:40:00 EDT, Route to Pharmacy Electronically, [facility], 163,cm, 11/22/20 12:47:00 EDT, Height [...] tablet, Refills 5, Maintenance, 03/27/23 23:12:00 EST, [email or web address] Pharmacy Electronically, [facility], [...] Clinical Service Informant Bipolar disorder Discharge Diagnosis 06/06/23 Congenital Hypogammaglobulinemia Discharge Diagnosis 06/06/23 Nephrogenic diabetes insipidus Discharge Diagnosis 06/06/23 Campylobacter enteritis Discharge Diagnosis 06/06/23 Vital Signs Most recent to oldest [Reference Range]: 1 Height 163 cm (06/06/23 7:29 AM) Weight 78.4 kg (06/06/23 7:29 AM) Oxygen Saturation [94-100 %] 97 % (06/06/23 7:29 AM) Pulse Rate [55-90 bpm] 86 bpm (06/06/23 7:29 AM) Body Mass Index [18.5-24.99 kg/m2] 29.51 kg/m2 *H* (06/06/23 7:29 AM) Blood Pressure [90-138/55-84 mm Hg] 115/ 71mm Hg (06/06/23 7:29 AM) Temperature [96.8-100.4 DegF] 97.5 DegF (06/06/23 7:29 AM) Blood pressure sites Arm, left (06/06/23 7:29 AM) Temperature Route Oral (06/06/23 7:29 AM) Social History Social History Type Response Smoking Status Never smoker entered on: 05/12/13 Sex Note * Merly Mccoy: VERIFY, PERFORM, SIGN Event Display: Patient Education/Instruction Authored Date: [id number] [facility] *HAYDEN Recinos Clinical Summary Name HEMANT LEE Age 47 Years 1975 PCP Miles OTOOLE, Bernie Hardy [id number] Visit Date 06/06/2023 07:24:00 Additional Instructions: Scheduled Appointments?? Future Appointments ?No Future Appointments Scheduled Follow-Up Instructions ?? Diagnosis Hereditary hypogammaglobulinemia; Bipolar disorder, unspecified; Nephrogenic diabetes insipidus Medications: Please continue your medications until treatment is completed or stopped by your provider. Discuss any questions related to medications with your provider. Medications to Continue Taking That Have Changed [facility], [address] [place], [place] [id number], [phone] - Fluconazole (Diflucan 150 mg oral tablet) 1 tab(s) Oral once. may repeat x 1. Refills: 1. Next Dose: These medications were not printed or sent to your pharmacy - Amiloride (aMILoride 5 mg oral tablet) 2 tab(s) Oral Daily for 30 Days. Next Dose: - HydrOXYzine (hydrOXYzine hydrochloride 10 mg oral tablet) 1 tab(s) Oral Daily at Bedtime. Next Dose: - Lamotrigine (lamotrigine 200 mg oral tablet) 1 tab(s) Oral Daily. Refills: 0. Next Dose: - Irmo (lithium 150 mg oral capsule) 1 capsule Oral twice a day. Next Dose: Medications to Continue with No [...] Subcutaneous Infusion Every 28 days. Next Dose: Immune Globulin Intramuscular 20 GRAMS EVERY 3 WEEKS. Next Dose: Levothyroxine (levothyroxine 0.05 mg oral [...] TABLETS AT BEDTIME.. Refills: 5. Next Dose: No Longer Take the Following Medications cariprazine (Vraylar 3 mg oral capsule) 3 Milligram Oral Daily. cariprazine (Vraylar 4.5 mg oral capsule) 30 each, 0 Refill(s), TAKE 1 CAPSULE BY MOUTH EVERY MORNING. Allergy Info:?? NSAIDs; Cats; Adhesive Bandage; Demerol HCl; Reglan; Augmentin; Flonase; morphine; azithromycin Medications Given This Visit Future Orders ?No future orders Vital Signs Height 163 cm Weight 78.4 kg BMI 29.51 kg/m2 Blood Pressure 115 mm Hg/71 mm Hg Temperature 97.5 DegF Pulse Rate 86 bpm Respiratory Rate 02 Sat Mode of Delivery 97 %/ You can now view a summary of your hospital visit from the comfort of your home through a free online portal called [facility]. [facility] is a website that allows you to securely view your medical information including discharge summary, medications and follow-up visits. ??You can alsosend a secure electronic message to your doctor???s office to request appointments, renew medications or just ask a question. You can enroll at [email or web address] or register during your next [...] primary care provider, you may find a [facility] provider by calling [facility] at [phone]. [facility], in keeping with [facility] guidance, no longer requires face masks [...] MD Position: [facility] Renal MD Member Role: Lifetime Consulting Physician Address: Address: [address] [place] [address] [address] [facility] [place] [address]- [place] Name: Lore Clinton RN Position: [facility] RN Member Role: Primary Care Nurse Name: eBrnie Aquino NP Position: [facility] PCO Associate Professional Member Role: PCP Address: Address: [address] [place] [address]- [place] Name: Gregg Hardy MD Position: [facility] Pulmonary MD Member Role: Lifetime Consulting Physician Address: Address: [address] [place] [address]- Care Team Related Persons Name: ONDINA SINGLETARY Address: home [address] [place] [address] Name: BLAIRE JACOB Address: home [address] [place] [address]
--- OUTSIDE RECORDS SUMMARY | 2024-01-11 13:51 | XMS_ITS | Continuity of Care Document ---
Author Organization [facility] Address Unknown Care Team Providers Care Patternmaker Metal Bench Name Role Phone Miles OTOOLE, Bernie Hardy Primary Care Physician [facility]): 08[facility]19[facility]21 - 09/18/21 [facility] Allergies, Adverse Reactions, Alerts Substance Reaction Severity [...] (oldterm) 8 03/14/09 Given 1Result Comment: [02/13/2018] [id number] 2Result Comment: [02/08/2017] [facility] [id number] 317 02 3Result Comment: [01/24/2013] ORDERRED BY GINA GAINES MD 4Result Comment: [09/19/2017] [id number] 5Admin Note: vis given 6Admin Note: BIOMEDICAL [...]
--- OUTSIDE RECORDS SUMMARY | 2024-01-11 13:51 | XMS_ITS | Continuity of Care Document ---
Author Organization [facility] Juventino David Address [address] [place] [address]- Care Team Providers Care Stereo Equipment Salesperson Name Role Phone Gina Bhat MD Primary Care Physician [phone] [facility] Date[facility]s): 04/19/21 - 05/19/21 [facility] Adult [address] [place] [address]- Allergies, Adverse Reactions, Alerts Substance Reaction Severity [...] (oldterm) 8 03/14/09 Given 1Result Comment: [02/13/2018] [id number] 2Result Comment: [02/08/2017] [facility] [id number] 317 02 3Result Comment: [01/24/2013] ORDERRED BY GINA BHAT MD 4Result Comment: [09/19/2017] [id number] 5Admin Note: vis given 6Admin Note: BIOMEDICAL [...] EDT, Route to Pharmacy Electronically, [facility], 163,cm, 11/22/20 12:47:00 EDT, Height [...] Weight Start Date: 03/16/21 Status: Ordered Pen Bombay, 31 G x 5 mm BD Ultra Fine III See Instructions, # 150 each, Refills 6, Tot. Refills 6, Maintenance, for use 4x daily with Lantus and humalog insulin E11.65, 06/24/18 10:09:38 EST, Compound Start Date: 06/24/18 Status: Ordered Pen Bombay, 31 G x 5 mm BD Ultra [...]
--- OUTSIDE RECORDS SUMMARY | 2024-01-11 13:51 | XMS_ITS | Continuity of Care Document ---
Author Organization [facility] Address [address] [place] [address]- Care Team Providers Care Derrick Boat Runner Name Role Phone Miles OTOOLE, Bernie Hardy Primary Care Physician [phone] [facility] Date(s): 12/27/21 - 01/26/22 [facility] [address] [place] [id number] Allergies, Adverse Reactions, Alerts Substance [...] (oldterm) 8 03/14/09 Given 1Result Comment: [02/13/2018] [id number] 2Result Comment: [02/08/2017] [facility] [id number] 317 02 3Result Comment: [01/24/2013] ORDERRED BY GINA GAINES MD 4Result Comment: [09/19/2017] [id number] 5Admin Note: vis given 6Admin Note: BIOMEDICAL [...] 12/01/20 15:40:00 EDT, Route to Pharmacy Electronically, [facility], 163,cm, 11/22/20 12:47:00 EDT, Height Start Date: 12/01/20 Status: Ordered EpiPen 2-Juvenal = 0.3 mg, Intramuscular, Once, 0 Refills, Maintenance Start Date: 01/31/11 Status: Ordered Fioricet oral capsule 1 capsule, By Mouth, Once, PRN as needed, repeat in 2 hours if headache is still present, # 30 capsule, 0 Refills, Soft Stop, 05/13/20 10:25:00 EST, Capsule, [facility], 1 capsule By Mouth Once,PRN:as needed,Instr:repeat in 2 hours if he... Start Date: 05/13/20 Status: Ordered fluconazole 150 mg oral tablet 1 tablet = 150 mg, By Mouth, Once, epeat dose if still having symptoms in 72 hours, # 2 tablet, 0 Refills, Soft Stop, 11/01/20 15:04:00 EDT, Tablet, [facility], Partial fill upon patient request [...] Personnel Name: Bernie Aquino NP Address: [address] [facility] [place] [address]-
--- OUTSIDE RECORDS SUMMARY | 2024-01-11 13:51 | XMS_ITS | Continuity of Care Document ---
Author Organization [facility] Juventino David lt Address [address] [place] [address]- Care Team Providers Care Registered Radiologic Technologist Name Role Phone Perlita CHAIDEZ, Gina Smith Primary Care Physician [phone] [facility] Date(s): 01/10/21 - 02/09/21 [facility] Adult [address] [place] [address]- Allergies, Adverse Reactions, Alerts Substance Reaction Severity [...] (oldterm) 8 03/14/09 Given 1Result Comment: [02/13/2018] [id number] 2Result Comment: [02/08/2017] [facility] [id number] 317 02 3Result Comment: [01/24/2013] ORDERRED BY GINA GAINES MD 4Result Comment: [09/19/2017] [id number] 5Admin Note: vis given 6Admin Note: BIOMEDICAL [...] 05/18/20 17:15:00 EST, Route to Pharmacy Electronically, [facility], D/C RX ON FILE FOR COLDESTINY, 163, c... Start Date: 05/18/20 Status: Ordered [...] Refills, Soft Stop, 11/01/20 15:04:00 EDT, Tablet, [facility], Partial fill upon patient request [...] Maintenance, 10/26/20 11:52:00EDT, Route to Pharmacy Electronically, [facility], 163, cm, 09/23/20 9:42:00 EDT,Height [...] Weight Start Date: 10/01/19 Status: Ordered Pen Willard, 31 G x 5 mm BD Ultra Fine III See Instructions, # 150 each, Refills 6, Tot. Refills 6, Maintenance, for use 4x daily with Lantus and humalog insulin E11.65, 06/24/18 10:09:38 EST, Compound Start Date: 06/24/18 Status: Ordered Pen Willard, 31 G x 5 mm BD Ultra [...] 07/26/20 10:28:00 EDT, Route to Pharmacy Electronically, [facility], 163, cm, 07/26/20 8:40:00 EDT, Height Start Date: 07/26/20 Status: Ordered SUMAtriptan 100 mg oral tablet 1 tablet, By Mouth, Daily, PRN NEEDED FOR MIGRAINE, MAY REPEAT DOSE IN 2 HOURS IF NEEDED, # 9 tablet, 11 Refills, Soft Stop, 05/10/20 14:37:00 EST, [facility], 163, cm, 01/16/20 10:48:00 EDT, Height, 82.6, kg, 05/24/18 7:14:00 EST, . Start Date: 05/10/20 Status: Ordered topiramate 50 mg oral tablet See Instructions, 1 tablet in morning, 3 tablets at bedtime, # 120 tablet, 5 Refills, Maintenance, 01/21/21 15:35:00 EDT, [facility], 163, cm, 11/22/20 12:47:00 EDT, [...]
--- OUTSIDE RECORDS SUMMARY | 2024-01-11 13:51 | XMS_ITS | Continuity of Care Document ---
Author Organization [facility] David lt Address [address] [place] [address]- Care Team Providers Care Automated Manufacturing Instructor Name Role Phone Miles OTOOLE, Bernie Hardy Primary Care Physician Encounter [facility] Date(s): 11/29/21 - 12/29/21 [facility] Adult [address] [place] [address]- Allergies, Adverse Reactions, Alerts Substance Reaction Severity [...] (oldterm) 8 03/14/09 Given 1Result Comment: [02/13/2018] [id number] 2Result Comment: [02/08/2017] [facility] [id number] 317 02 3Result Comment: [01/24/2013] ORDERRED BY GINA GAINES MD 4Result Comment: [09/19/2017] [id number] 5Admin Note: vis given 6Admin Note: BIOMEDICAL [...] 11, Route to Pharmacy Electronically, [facility], 163, cm, 09/07/21 9:26:00 EDT, Height, 81, kg, 01/28/21 22:15:00 EDT, Dry Weight Start Date: 11/15/21 Status: Ordered Multivitamin Daily, 0 Refills, Maintenance, [...] AND VOMITING, # 30 tablet, 0 Refills, [facility], 163, cm, 06/07/21 14:40:00 EST, [...] 02/23/21 16:10:00 EDT, Route to Pharmacy Electronically, [facility], Rx resent from 07/26/20, 163, cm, 02/21/21 15:42:00 EDT, Height, 81, kg, 09... Start Date: 02/23/21 Status: Ordered topiramate 50 mg oral tablet See Instructions, TAKE 1 TABLET IN THE MORNING AND 3 TABLETS AT BEDTIME., # 120 tablet, 5 Refills, [facility], 163, cm, 06/13/21 [...]
--- OUTSIDE RECORDS SUMMARY | 2024-01-11 13:51 | XMS_ITS | Continuity of Care Document ---
Author Organization [facility] Address [address] [place] [address]- Care Team Providers Care Elevator Operator Freight Name Role Phone Miles OTOOLE, Bernie Hardy Primary Care Physician [facility] Date[facility]s): 02/06/22 - 03/08/22 [facility] [address] [place] [id number] Allergies, Adverse Reactions, Alerts Substance Reaction Severity [...] (oldterm) 8 03/14/09 Given 1Result Comment: [02/13/2018] [id number] 2Result Comment: [02/08/2017] [facility] [id number] 317 02 3Result Comment: [01/24/2013] ORDERRED BY GINA GAINES MD 4Result Comment: [09/19/2017] [id number] 5Admin Note: vis given 6Admin Note: BIOMEDICAL [...] Personnel Name: Bernie Aquino NP Address: Address: [address] [place] [address]
--- OUTSIDE RECORDS SUMMARY | 2024-01-11 13:51 | XMS_ITS | Continuity of Care Document ---
Author Organization [facility] Juventino David lt Address [address] [place] [address]- Care Team Providers Care Relay Tester Name Role Phone Perlita CHAIDEZ, Gina Smith Primary Care Physician [phone] [facility]counter [facility] Date(s): 04/25/21 - 05/25/21 [facility] Adult [address] [place] [address]- Allergies, Adverse Reactions, Alerts Substance Reaction Severity [...] (oldterm) 8 03/14/09 Given 1Result Comment: [02/13/2018] [id number] 2Result Comment: [02/08/2017] [facility] [id number] 317 02 3Result Comment: [01/24/2013] ORDERRED BY GINA GAINES MD 4Result Comment: [09/19/2017] [id number] 5Admin Note: vis given 6Admin Note: BIOMEDICAL [...] Weight Start Date: 03/16/21 Status: Ordered Pen [place], 31 G x 5 mm BD Ultra Fine III See Instructions, # 150 each, Refills 6, Tot. Refills 6, Maintenance, for use 4x daily with Lantus and humalog insulin E11.65, 06/24/18 10:09:38 EST, Compound Start Date: 06/24/18 Status: Ordered Pen [place], 31 G x 5 mm BD Ultra [...]
--- OUTSIDE RECORDS SUMMARY | 2024-01-11 13:51 | XMS_ITS | Continuity of Care Document ---
Author Organization [facility] Juventino David lt Address [address] [place] [address]- Care Team Providers Care Road Freight Brake Coupler Name Role Phone Miles OTOOLE, Bernie Hardy Primary Care Physician Encounter [facility] Date(s): 04/26/22 - 05/26/22 [facility] Adult [address] [place] [address]- Allergies, Adverse Reactions, Alerts Substance Reaction Severity [...] (oldterm) 8 03/14/09 Given 1Result Comment: [02/13/2018] [id number] 2Result Comment: [02/08/2017] [facility] [id number] 317 02 3Result Comment: [01/24/2013] ORDERRED BY GINA GAINES MD 4Result Comment: [09/19/2017] [id number] 5Admin Note: vis given 6Admin Note: BIOMEDICAL [...] 12/01/20 15:40:00 EDT, Route to Pharmacy Electronically, [facility], 163,cm, 11/22/20 12:47:00 EDT, Height [...] EDT, Route to Pharmacy Electronically, [facility], Partial fill upon patient request [...] Role: Lifetime Consulting Physician Address: Address: [address] [place] [address], [address] [place] [address]- [place] Name: Lore Clinton RN Position: [facility] RN Member Role: Primary Care Nurse Name: Bernie Aquino NP Position: [facility] PCO Associate Professional Member Role: PCP Address: Address: [address] [place] [address]- [place] Name: Gregg Hardy MD Position: [facility] Pulmonary MD Member Role: Lifetime Consulting Physician Address: Address: [address] [place] [address]- [place] Care Team Related Persons Name: MERRITT SINGLETARY Address: home [address] [place] [address] Name: BLAIRE JACOB Address: home [address] [place] [address]
--- OUTSIDE RECORDS SUMMARY | 2024-01-11 13:52 | XMS_ITS | Continuity of Care Document ---
Author Organization [facility] David lt Address [address] [place] [address]- Care Team Providers Care Ceo & Board Director Name Role Phone Miles OTOOLE, Bernie Hardy Primary Care Physician Encounter [facility] Date(s): 02/09/22 - 02/16/22 [facility] Adult [address] [place] [address]- Encounter Diagnosis Type 2 diabetes mellitus(Discharge Diagnosis) - 02/10/22 Bipolar disorder(Discharge Diagnosis) - 02/10/22 Hyperparathyroidism - lithum induced(Discharge Diagnosis) - 02/10/22 Papillary thyroid carcinoma(Discharge Diagnosis) - 02/10/22 Attending Physician: Not on Staff, Attending MD [...] (oldterm) 8 03/14/09 Given 1Result Comment: [02/13/2018] [id number] 2Result Comment: [02/08/2017] [facility] [id number] 317 02 3Result Comment: [01/24/2013] ORDERRED BY GINA GAINES MD 4Result Comment: [09/19/2017] [id number] 5Admin Note: vis given 6Admin Note: BIOMEDICAL [...] Unknown, Refills 11, Route to Pharmacy Electronically, [facility], 163, cm, 04/15/21 11:42:00 EST, [...] 12/01/20 15:40:00 EDT, Route to Pharmacy Electronically, [facility], 163,cm, 11/22/20 12:47:00 [...] Effective Dates Health Status Clinical Service Informant Type 2 diabetes mellitus Discharge Diagnosis 02/10/22 Bipolar disorder Discharge Diagnosis 02/10/22 Hyperparathyroidism - lithum induced Discharge Diagnosis 02/10/22 Papillary thyroid carcinoma Discharge Diagnosis 02/10/22 Vital Signs Most recent to oldest [Reference Range]: 1 Height 163 cm (02/09/22 10:38 AM) Weight 79.6 kg (02/09/22 10:38 AM) Oxygen Saturation [94-100 %] 97 % (02/09/22 10:38 AM) Pulse Rate [55-90 bpm] 86 bpm (02/09/22 10:38 AM) Body Mass Index [18.5-24.99 kg/m2] 29.96 kg/m2 *H* (02/09/22 10:38 AM) Blood Pressure [90-138/55-84 mm Hg] 115/ 73mm Hg (02/09/22 10:38 AM) Temperature [96.8-100.4 DegF] 98.1 DegF (02/09/22 10:38 AM) Blood pressure sites Arm, right (02/09/22 10:38 AM) Temperature Route Temporal (02/09/22 10:38 AM) Weight Obtained Via Standing scale (02/09/22 10:38 AM) Social History Social History Type Response Smoking Status Never smoker entered on: 05/12/13 Sex Patient Care team information Personnel Name: Bernie Aquino NP Address: Address: [address] [place] [address]
--- OUTSIDE RECORDS SUMMARY | 2024-01-11 13:52 | XMS_ITS | Continuity of Care Document ---
Author Organization [facility] Address [address] [place] [address]- Care Team Providers Care Terrazzo Supervisor Name Role Phone Miles OTOOLE, Bernie Hardy Primary Care Physician [phone] [facility] Date(s): 03/29/23 - 04/28/23 [facility] [address] [place] [address] Allergies, Adverse Reactions, Alerts Substance [...] (oldterm) 8 03/14/09 Given 1Result Comment: [09/19/2017] [id number] 2Result Comment: [02/13/2018] [id number] 3Result Comment: [02/08/2017] [facility] [id number] 317 02 4Result Comment: [01/24/2013] ORDERRED BY [...] tablet, 1 Refills, Maintenance, 01/01/23 12:44:00 EDT, [facility], 163, cm, 11/13/22 [...] 05/25/22 6:49:00 EST, Route to Pharmacy Electronically, [facility], 163, cm, 04/04/22 7:05:00 EST, [...] 12/01/20 15:40:00 EDT, Route to Pharmacy Electronically, [facility], 163,cm, 11/22/20 12:47:00 EDT, Height [...] tablet, Refills 5, Maintenance, 03/27/23 23:12:00 EST, [facility], [facility] [...] Personnel Name: Marisa CHAIDEZ, Neto Osorio Position: [facility] Renal MD Member Role: Lifetime Consulting Physician Address: Address: [address] [place] [address] [address] [place] [address]- Name: Lore Clinton RN Position: [facility] RN Member Role: Primary Care Nurse Name: Bernie Aquino NP Position: [facility] PCO Associate Professional Member Role: PCP Address: Address: [address] [place] [address]- Name: Gregg Hardy MD Position: [facility] Pulmonary MD Member Role: Lifetime Consulting Physician Address: Address: [address] [place] [address]- Care Team Related Persons Name: ONDINA SINGLETARY Address: home [address] [place] [address] Name: BLAIRE JACOB Address: home [address] [place] [address]
--- OUTSIDE RECORDS SUMMARY | 2024-01-11 13:52 | XMS_ITS | Continuity of Care Document ---
Author Organization [facility] David Address [address] [place] [address]- Care Team Providers Care Wood Lather Name Role Phone Gina Bhat MD Primary Care Physician [facility] Date(s): 04/22/21 - 05/22/21 [facility] Adult [address] [place] [address]- Allergies, Adverse Reactions, Alerts Substance Reaction Severity [...] (oldterm) 8 03/14/09 Given 1Result Comment: [02/13/2018] [id number] 2Result Comment: [02/08/2017] [facility] [id number] 317 02 3Result Comment: [01/24/2013] ORDERRED BY GINA BHAT MD 4Result Comment: [09/19/2017] [id number] 5Admin Note: vis given 6Admin Note: BIOMEDICAL [...] EDT, Route to Pharmacy Electronically, [facility], 163,cm, 11/22/20 12:47:00 EDT, Height [...] Stop, 11/01/20 15:04:00 EDT, Tablet, [facility], Partial fill upon patient request [...] Weight Start Date: 03/16/21 Status: Ordered Pen [place], 31 G x 5 mm BD Ultra Fine III See Instructions, # 150 each, Refills 6, Tot. Refills 6, Maintenance, for use 4x daily with Lantus and humalog insulin E11.65, 06/24/18 10:09:38 EST, Compound Start Date: 06/24/18 Status: Ordered Pen [place], 31 G x 5 mm BD Ultra [...]
--- OUTSIDE RECORDS SUMMARY | 2024-01-11 13:52 | XMS_ITS | Continuity of Care Document ---
Author Organization [facility] Juventino David lt Address [address] [place] [address]- Care Team Providers Care Windows Migration Technician Name Role Phone Gina Bhat MD Primary Care Physician [phone] [facility] Date(s): 04/05/21 - 05/05/21 [facility] Adult [address] [place] [address]- Allergies, Adverse Reactions, Alerts Substance Reaction Severity [...] (oldterm) 8 03/14/09 Given 1Result Comment: [02/13/2018] [id number] 2Result Comment: [02/08/2017] [facility] [id number] 317 02 3Result Comment: [01/24/2013] ORDERRED BY GINA BHAT MD 4Result Comment: [09/19/2017] [id number] 5Admin Note: vis given 6Admin Note: BIOMEDICAL [...] 11:52:00EDT, Route to Pharmacy Electronically, [facility], 163, cm, 09/23/20 9:42:00 EDT,Height [...] Weight Start Date: 03/16/21 Status: Ordered Pen [place], 31 G x 5 mm BD Ultra Fine III See Instructions, # 150 each, Refills 6, Tot. Refills 6, Maintenance, for use 4x daily with Lantus and humalog insulin E11.65, 06/24/18 10:09:38 EST, Compound Start Date: 06/24/18 Status: Ordered Pen [place], 31 G x 5 mm BD Ultra [...] 02/23/21 16:10:00 EDT, Route to Pharmacy Electronically, [facility], Rx resent from 07/26/20, 163, cm, 02/21/21 15:42:00 EDT, Height, 81, kg, 09... Start Date: 02/23/21 Status: Ordered SUMAtriptan 100 mg oral tablet 1 tablet, By Mouth, Daily, PRN NEEDED FOR MIGRAINE, Patient is having more that 10 migraines permonth. MAY REPEAT DOSE IN 2 HOURS IF NEEDED, # 18 tablet, 11 Refills, Soft Stop, 04/19/21 13:11:00 EST, [facility], 163, cm, 04/15/21 11... Start Date: 04/19/21 Status: Ordered topiramate 50 mg oral tablet See Instructions, 1 tablet in morning, 3 tablets at bedtime, # 120 tablet, 5 Refills, Maintenance, 01/21/21 15:35:00 EDT, [facility], 163, cm, 11/22/20 12:47:00 EDT, [...]
--- OUTSIDE RECORDS SUMMARY | 2024-01-11 13:52 | XMS_ITS | Continuity of Care Document ---
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 [id number] 317 02 3Result Comment: [01/24/2013] ORDERRED BY GINA BHAT MD 4Result Comment: [09/19/2017] [id number] 5Admin Note: vis given 6Admin Note: BIOMEDICAL [...] 07/24/18 12:13:57 EDT, Route to Pharmacy Electronically, [id number], [facility] Start Date: 07/24/18 Status: [...] 01/06/19 11:51:55 EDT, Route to Pharmacy Electronically, [id number], [facility] Start Date: 01/06/19 Status: Ordered [...] 0 Refills, Soft Stop, 06/06/19 10:53:00 EST, Tablet,[facility], 163, cm, 06/04/19 8:19:00 EST, Height, 82.6, kg, 05/24/18 7:14:00 EST, Dry Weight Start Date: 06/06/19 Status: Ordered folic acid 1 mg oral tablet 4 mg, 4, tablet, By Mouth, Daily, # 120 tablet, Refills 5, Tot. Refills 5, Maintenance, 05/22/19 16:08:00 EST, Route to Pharmacy Electronically, [facility], Patient prescribed increased dose secondary [...] Daily, # 90 tablet, 1 Refills, Maintenance, 07/17/19 15:21:00 EST, Tablet, [facility], 163, cm, 07/11/19 11:24:00 EST, Height, 82.6, kg, 05/24/18 7:14:00EST, Dry Weight Start Date: 07/17/19 Status: Ordered lisinopril 2.5 mg oral tablet 2.5 mg, 1, tablet, By Mouth, Daily, # 30 tablet, Refills 11, Tot. Refills 11, Maintenance, 10/10/1915:45:18 EDT, Route to Pharmacy Electronically, [id number], [facility] Start Date: 10/09/18 Status: Ordered [...] # 60 capsule, 2 Refills, Maintenance, [facility], 163, cm, 07/11/19 11:24:00 EST, [...] Requisition Start Date: 05/19/16 Status: Ordered Pen [place], 31 G x 5 mm BD Ultra [...] 05/30/19 11:43:00 EST, Route to Pharmacy Electronically, [facility], 163, cm, 05/30/19 11:08:00 EST, Height, 82.6, kg, 05/24/18 7:14:00 EST,... Start Date: 05/30/19 Status: Ordered SUMAtriptan 100 mg oral tablet 1 tablet, By Mouth, Daily, PRN NEEDED FOR MIGRAINE, # 9 tablet, Refills 11 Tot. Refills 11, MAY REPEAT DOSE IN 2 HOURS IF NEEDED, [facility] Start Date: 04/14/19 Status: Ordered [...] Clinical Service Informant Bipolar disorder Discharge Diagnosis 07/11/19 Congenital Hypogammaglobulinemia Discharge Diagnosis 07/11/19 Hyper-IgE syndrome Discharge Diagnosis 07/11/19 Hyperparathyroidism - lithum induced Discharge Diagnosis 07/11/19 Type 2 diabetes mellitus Discharge Diagnosis 07/11/19 Postnasal drip Discharge Diagnosis 07/11/19 Vital Signs Most recent to oldest [Reference Range]: 1 Height 163 cm (07/11/19 11:24 AM) Weight 83.1 kg (07/11/19 11:24 AM) Oxygen Saturation [94-100 %] 98 % (07/11/19 11:24 AM) Pulse Rate [55-90 bpm] 96 bpm *H* (07/11/19 11:24 AM) Body Mass Index [18.5-24.99] 31.28 *>HHI* (07/11/19 11:24 AM) Blood Pressure [90-138/55-84 mm Hg] 104/ 64mm Hg (07/11/19 11:24 AM) Temperature [96.8-100.4 DegF] 98.4 DegF (07/11/19 11:24 AM) Mode of Delivery (Oxygen) Room air (07/11/19 11:24 AM) Blood pressure sites Arm, left (07/11/19 11:24 AM) Temperature Route Oral (07/11/19 11:24 AM) Weight Obtained Via Standing scale (07/11/19 11:24 AM) Social History Social History Type Response Smoking Status Never smoker entered on: 01/21/18 Sex
--- OUTSIDE RECORDS SUMMARY | 2024-01-11 13:52 | XMS_ITS | Continuity of Care Document ---
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 Annual physical exam(Discharge Diagnosis) - 09/06/23 Attending Physician: Bernie Aquino NP Referring Physician: [...] (oldterm) 8 03/14/09 Given 1Result Comment: [09/19/2017] [id number] 2Result Comment: [02/13/2018] [id number] 3Result Comment: [02/08/2017] [facility] [id number] 317 02 4Result Comment: [01/24/2013] ORDERRED BY [...] EST, Route to Pharmacy Electronically, [facility], 163, cm, 03/07/23 8:42:00 EDT, [...] 15:40:00 EDT, Route to Pharmacy Electronically, [facility], 163,cm, 11/22/20 12:47:00 EDT, [...] Refills 5, Maintenance, 03/27/23 23:12:00 EST, [facility], [facility] [...] Informant Type 2 diabetes mellitus Discharge Diagnosis 09/06/23 Bipolar disorder Discharge Diagnosis 09/06/23 Asthma - severe Discharge Diagnosis 09/06/23 FMF (familial Mediterranean fever) Discharge Diagnosis 09/06/23 Hyper-IgE syndrome Discharge Diagnosis 09/06/23 Annual physical exam Discharge Diagnosis 09/06/23 Vital Signs Most recent to oldest [Reference Range]: 1 Height 163 cm (09/06/23 10:02 AM) Weight 80.3 kg (09/06/23 10:02 AM) Oxygen Saturation [94-100 %] 99 % (09/06/23 10:02 AM) Pulse Rate [55-90 bpm] 89 bpm (09/06/23 10:02 AM) Body Mass Index [18.5-24.99 kg/m2] 30.22 kg/m2 *>HHI* (09/06/23 10:02 AM) Blood Pressure [90-138/55-84 mm Hg] 122/ 79mm Hg (09/06/23 10:02 AM) Blood pressure sites Arm, left (09/06/23 10:02 AM) Weight Obtained Via Standing scale (09/06/23 10:02 AM) Social History Social History Type Response Smoking Status Never smoker entered on: 05/12/13 Sex Note * Merly Mccoy: PERFORM, SIGN, VERIFY Event Display: Patient Education/Instruction Authored Date: [id number] [facility] *BMP So Juventino Recinos Clinical Summary Name HEMANT LEE Age 47 Years 1975 PCP Bernie Aquino NP PCP Visit Date 09/06/2023 09:56:00 Additional Instructions: Scheduled Appointments?? Future Appointments ?[facility] ?[address]??[place],??[place],??[address] ?Phone:??[phone]?Fax:??-- ?Appt. Date:??10/25/2023?10:15 AM ?Scheduled Provider:??[facility] 3D Mammo Rm 4 ?*[facility] ?[address]??[place],??[place],??[address] ?Phone:??--?Fax:??-- ?Appt. Date:??10/29/2023?9:45 AM ?Scheduled Provider:??Kip CHAIDEZ , Kelli Follow-Up Instructions ?? 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 Discuss any questions related to medications with your provider. Medications to Continue Taking That Have Changed [facility], [address] [place], [place] [id number], [phone] - Atorvastatin (atorvastatin 20 mg oral tablet) 1 tab(s) Oral Daily. Refills: 2. Next Dose: These medications were not printed or sent to your pharmacy - [place] (lithium 150 mg oral capsule) 3 capsule Oral twice a day. Next Dose: [...] Oral Daily for 30 Days. Next Dose: Benztropine (benztropine 0.5 mg oral [...] day. Refills: 6. Next Dose: Ondansetron (ondansetron 4 mg oral tablet) 1 tab(s) Oral every 8 hours. Refills: 0. Next Dose: Oxcarbazepine (Trileptal 300 [...] Dose: No Longer Take the Following Medications Fluconazole (Diflucan 150 mg oral tablet) 1 tab(s) Oral once. Refills: 0. Allergy Info:?? NSAIDs; Cats; Adhesive Bandage; Demerol HCl; Reglan; Augmentin; Flonase; morphine; azithromycin Medications Given This Visit Future Orders ?No future orders Future Orders ?Microalbumin Urine? Order Date:09/06/23?- Complete within?Lipid Panel? Order Date:09/06/23?- Complete within? Vital Signs Height 163 cm Weight 80.3 kg BMI 30.22 kg/m2 Blood Pressure 122 mm Hg/79 mm Hg Temperature Pulse Rate 89 bpm Respiratory Rate 02 Sat Mode of Delivery 99 %/ You can now view a summary of your hospital visit from the comfort of your home through a free online portal called [employer]. [employer] is a website that allows you to securely view your medical information including discharge summary, medications and follow-up visits. ??You can alsosend a secure electronic message to your doctor???s office to request appointments, renew medications or just ask a question. You can enroll at [email or web address] or register during your next office visit. [...] primary care provider, you may find a [facility] provider by calling [facility] at [phone]. [facility], in keeping with [facility] guidance, no longer requires face masks [...] Member Role: Lifetime Consulting Physician Address: Address: [address] [place] [address] [address] [facility] [address]- Name: Oz SHERWOOD, Lore Position: [facility] RN Member Role: Primary Care Nurse Name: Bernie Aquino NP Position: [facility] PCO Associate Professional Member Role: PCP Address: Address: [address] [place] [address]- [place] Name: Gregg Hardy MD Position: [facility] Pulmonary MD Member Role: Lifetime Consulting Physician Address: Address: [address] [place] [address]- Care Team Related Persons Name: ONDINA SINGLETARY Address: home [address] [place] [address] Name: BLAIRE JACOB Address: home [address] [place] [address]
--- OUTSIDE RECORDS SUMMARY | 2024-01-11 13:52 | XMS_ITS | Continuity of Care Document ---
Author Organization [facility] Address [address] [address]- Care Team Providers Care Joy Loading Machine Operator Name Role Phone Miles OTOOLE, Bernie Hardy Primary Care Physician Encounter [facility] Date(s): 09/02/23 - 10/02/[address] [address]- Allergies, Adverse Reactions, Alerts Substance Reaction Severity Status azithromycin 1 increases sx's Active Augmentin 2 increases sx Active Adhesive Bandage rash Active NSAIDs Active morphine vomiting Active Flonase [...] (oldterm) 8 03/14/09 Given 1Result Comment: [09/19/2017] [id number] 2Result Comment: [02/13/2018] [id number] 3Result Comment: [02/08/2017] [facility] [id number] 317 02 4Result Comment: [01/24/2013] ORDERRED BY [...] 05/21/23 11:57:00 EST, Route to Pharmacy Electronically, [facility], 163, cm, 03/07/23 8:42:00 EDT, [...] 12/01/20 15:40:00 EDT, Route to Pharmacy Electronically, [facility], 163,cm, 11/22/20 12:47:00 EDT, Height [...] Refills, Maintenance, 04/23/23 11:08:00 EST, [facility], 163, cm, 03/07/23 8:42:00 EDT, Height, 76.2, kg, 01/06/22 8:38:00 EDT, Dry Weight Start Date: 04/23/23 Status: Ordered montelukast 10 mg oral tablet 1, tablet, By Mouth, Daily in PM, # 90 tablet, Refills 1, Tot. Refills 1, Maintenance, 10/01/23 18:42:00 EDT, Route to Pharmacy Electronically, [facility], 163, cm, 09/06/23 10:02:00 EDT, [...] Team Personnel Name: Neto Cunningham MD Position: [facility] MD Member Role: Lifetime Consulting Physician Address: Address: [address] [place] [address] [address] [facility] [address]- Name: Oz SHERWOOD, Lore Position: [facility] RN Member Role: Primary Care Nurse Name: Miles OTOOLE, Bernie Hardy Position: [facility] PCO Associate Professional Member Role: PCP Address: Address: [address] [place] [address]- Name: Gregg Hardy MD Position: [facility] Pulmonary MD Member Role: Lifetime Consulting Physician Address: Address: [address] [place] [address]- Care Team Related Persons Name: ONDINA SINGLETARY Address: [address] [place] [address] Name: BLAIRE JACOB Address: [address] [place] [address]
--- OUTSIDE RECORDS SUMMARY | 2024-01-11 13:52 | XMS_ITS | Continuity of Care Document ---
Author Organization [facility] [place] David lt Address [address] [place] [address]- Care Team Providers Care Rat Farmer Name Role Phone Miles OTOOLE, Bernie Hardy Primary Care Physician Encounter [facility] [place] Date(s): 11/10/21 - 12/10/21 [facility] [place] Adult [address] [place] [address]- Allergies, Adverse Reactions, Alerts Substance Reaction Severity [...] (oldterm) 8 03/14/09 Given 1Result Comment: [02/13/2018] [id number] 2Result Comment: [02/08/2017] [facility] [id number] 317 02 3Result Comment: [01/24/2013] ORDERRED BY GINA GAINES MD 4Result Comment: [09/19/2017] [id number] 5Admin Note: vis given 6Admin Note: BIOMEDICAL [...] 06/07/21 15:10:00 EST, CR Capsule, [facility], Partial fill upon patientrequest if [...] 02/23/21 16:10:00 EDT, Route to Pharmacy Electronically, [facility], Rx resent from 07/26/20, 163, [...]
--- OUTSIDE RECORDS SUMMARY | 2024-01-11 13:52 | XMS_ITS | Continuity of Care Document ---
Author Organization [facility] David lt Address [address] [place] [address]- Care Team Providers Care Junior Software Developer Name Role Phone Miles OTOOLE, Bernie Hardy Primary Care Physician [facility] Date(s): 12/29/21 - 01/28/22 [facility] Adult [address] [place] [address]- Allergies, Adverse Reactions, Alerts Substance Reaction Severity [...] (oldterm) 8 03/14/09 Given 1Result Comment: [02/13/2018] [id number] 2Result Comment: [02/08/2017] [facility] [id number] 317 02 3Result Comment: [01/24/2013] ORDERRED BY GINA GAINES MD 4Result Comment: [09/19/2017] [id number] 5Admin Note: vis given 6Admin Note: BIOMEDICAL [...] 12/01/20 15:40:00 EDT, Route to Pharmacy Electronically, [facility], 163,cm, 11/22/20 12:47:00 EDT, Height [...] Refills, Soft Stop, 11/01/20 15:04:00 EDT, Tablet, [facility], Partial fill upon patient request [...] Personnel Name: Bernie Aquino NP Address: [address] [facility] [place] [address]-
--- OUTSIDE RECORDS SUMMARY | 2024-01-11 13:52 | XMS_ITS | Continuity of Care Document ---
Author Organization [facility] David lt Address [address] [place] [address]- Care Team Providers Care Appliance Service Technician Name Role Phone Miles OTOOLE, Bernie Hardy Primary Care Physician Encounter [facility] Date(s): 07/18/23 - 08/17/23 [facility] Adult [address] [place] [address]- Allergies, Adverse Reactions, Alerts Substance Reaction Severity [...] (oldterm) 8 03/14/09 Given 1Result Comment: [09/19/2017] [id number] 2Result Comment: [02/13/2018] [id number] 3Result Comment: [02/08/2017] [facility] [id number] 317 02 4Result Comment: [01/24/2013] ORDERRED BY [...] EST, Route to Pharmacy Electronically, [facility], 163, cm, 03/07/23 8:42:00 EDT, [...] 0 Refills, Soft Stop, 08/09/23 11:12:00 EDT, Tablet,[facility], Partial fill upon [...] tablet, Refills 5, Maintenance, 03/27/23 23:12:00 EST, [facility], [facility], [...] Team Personnel Name: Neto Cunningham MD Position: [facility] Renal MD Member Role: Lifetime Consulting Physician Address: Address: [address] [place] [address] [address] [facility] [place] [address]- [place] Name: Lore Clinton RN Position: [facility] RN Member Role: Primary Care Nurse Name: Bernie Aquino NP Position: [facility] PCO Associate Professional Member Role: PCP Address: Address: [address] [place] [address]- [place] Name: Gregg Hardy MD Position: [facility] Pulmonary MD Member Role: Lifetime Consulting Physician Address: Address: [address] [place] [address]- Care Team Related Persons Name: ONDINA SINGLETARY Address: home [address] [place] [address] Name: BLAIRE JACOB Address: home [address] [place] [address]
--- OUTSIDE RECORDS SUMMARY | 2024-01-11 13:52 | XMS_ITS | Continuity of Care Document ---
Author Organization [facility] David lt Address [address] [place] [address]- Care Team Providers Care School Bus Technician Name Role Phone Miles OTOOLE, Bernie Hardy Primary Care Physician [phone] [facility] [place] Date(s): 09/07/21 - 10/07/21 [facility] Adult [address] [place] [address]- Allergies, Adverse Reactions, Alerts Substance Reaction Severity [...] (oldterm) 8 03/14/09 Given 1Result Comment: [02/13/2018] [id number] 2Result Comment: [02/08/2017] [facility] [id number] 317 02 3Result Comment: [01/24/2013] ORDERRED BY GINA GAINES MD 4Result Comment: [09/19/2017] [id number] 5Admin Note: vis given 6Admin Note: BIOMEDICAL [...] EDT, Route to Pharmacy Electronically, [facility], Rx resent from 07/26/20, 163, [...]
--- OUTSIDE RECORDS SUMMARY | 2024-01-11 13:52 | XMS_ITS | Continuity of Care Document ---
Author Organization [facility] David lt Address [address] [place] [address]- Care Team Providers Care Log Yard Manager Name Role Phone Miles OTOOLE, Bernie Hardy Primary Care Physician Encounter [facility] [place] Date(s): 08/29/21 - 09/28/21 [facility] Adult [address] [place] [address]- Allergies, Adverse Reactions, Alerts Substance Reaction Severity [...] (oldterm) 8 03/14/09 Given 1Result Comment: [02/13/2018] [id number] 2Result Comment: [02/08/2017] [facility] [id number] 317 02 3Result Comment: [01/24/2013] ORDERRED BY GINA GAINES MD 4Result Comment: [09/19/2017] [id number] 5Admin Note: vis given 6Admin Note: BIOMEDICAL [...] EDT, Route to Pharmacy Electronically, [facility], Rx resent from 07/26/20, 163, [...]
--- OUTSIDE RECORDS SUMMARY | 2024-01-11 13:52 | XMS_ITS | Continuity of Care Document ---
Author Organization [facility] Address [address] [place] [address]- Care Team Providers Care Dam Tender Name Role Phone Gina Bhat MD Primary Care Physician [phone] [facility]counter [facility] Date(s): 05/19/19 - 06/29/19 [facility] [address] [place] [address]- [facility] Attending Physician: Heike Lara MD Admitting Physician: [...] (oldterm) 8 03/14/09 Given 1Result Comment: [02/13/2018] [id number] 2Result Comment: [02/08/2017] [facility] [id number] 317 02 3Result Comment: [01/24/2013] ORDERRED BY GINA BHAT MD 4Result Comment: [09/19/2017] [id number] 5Admin Note: vis given 6Admin Note: BIOMEDICAL [...] 07/24/18 12:13:57 EDT, Route to Pharmacy Electronically, [id number], [facility] Start Date: 07/24/18 Status: [...] 01/06/19 11:51:55 EDT, Route to Pharmacy Electronically, [id number], [facility] Start Date: 01/06/19 Status: Ordered [...] Soft Stop, 06/06/19 10:53:00 EST, Tablet,[facility], 163, cm, 06/04/19 8:19:00 EST, Height, 82.6, kg, 05/24/18 7:14:00 EST, Dry Weight Start Date: 06/06/19 Status: Ordered folic acid 1 mg oral tablet 4 mg, 4, tablet, By Mouth, Daily, # 120 tablet, Refills 5, Tot. Refills 5, Maintenance, 05/22/19 16:08:00 EST, Route to Pharmacy Electronically, [facility], Patient prescribed increased dose secondary [...] Refills, Maintenance, Tablet, Route to Pharmacy Electronically, [id number], [facility] Start Date: 07/31/18 Status: Ordered lisinopril 2.5 mg oral tablet 2.5 mg, 1, tablet, By Mouth, Daily, # 30 tablet, Refills 11, Tot. Refills 11, Maintenance, 10/10/1915:45:18 EDT, Route to Pharmacy Electronically, [id number], [facility] Start Date: [...] Requisition Start Date: 05/19/16 Status: Ordered Pen [place], 31 G x 5 mm BD Ultra [...] 05/30/19 11:43:00 EST, Route to Pharmacy Electronically, [facility], 163, cm, 05/30/19 11:08:00 EST, Height, 82.6, kg, 05/24/18 7:14:00 EST,... Start Date: 05/30/19 Status: Ordered SUMAtriptan 100 mg oral tablet 1 tablet, By Mouth, Daily, PRN NEEDED FOR MIGRAINE, # 9 tablet, Refills 11 Tot. Refills 11, MAY REPEAT DOSE IN 2 HOURS IF NEEDED, [facility] Start Date: 04/14/19 Status: Ordered [...]
--- OUTSIDE RECORDS SUMMARY | 2024-01-11 13:52 | XMS_ITS | Continuity of Care Document ---
Author Organization [facility] David lt Address [address] [place] [address]- Care Team Providers Care Room Service Server Name Role Phone Miles OTOOLE, Bernie Hardy Primary Care Physician [place] [facility] [place] 03[place]24[place]22 - 04/23/22 [facility] Adult [address] [place] [address]- Allergies, Adverse Reactions, Alerts Substance Reaction Severity Status azithromycin 1 increases sx's Active Augmentin 2 increases sx Active morphine vomiting Active Flonase rhinitis Active [...] (oldterm) 8 03/14/09 Given 1Result Comment: [02/13/2018] [id number] 2Result Comment: [02/08/2017] [facility] [id number] 317 02 3Result Comment: [01/24/2013] ORDERRED BY GINA GAINES MD 4Result Comment: [09/19/2017] [id number] 5Admin Note: vis given 6Admin Note: BIOMEDICAL [...] Personnel Name: Marisa CHAIDEZ, Neto Osorio Position: [facility] Renal MD Member Role: Lifetime Consulting Physician Address: Address: [address] [place] [address], [address] [place] [address] Name: Lore Clinton RN Position: [facility] RN Member Role: Primary Care Nurse Name: Bernie Aquino NP Position: [facility] PCO Associate Professional Member Role: PCP Address: Address: [address] [place] [address]- [place] Name: Gregg Hardy MD Position: [facility] Pulmonary MD Member Role: Lifetime Consulting Physician Address: Address: [address] [place] [address]- Care Team Related Persons Name: MERRITT SINGLETARY Address: home [address] [place] [address] Name: BLAIRE JACOB Address: home [address] [place] [address]
--- OUTSIDE RECORDS SUMMARY | 2024-01-11 13:53 | XMS_ITS | Continuity of Care Document ---
Author Organization [facility] David lt Address [address] [place] [address]- Care Team Providers Care Tester [employer] Packages Name Role Phone Gina Bhat MD Primary Care Physician [phone] [facility]counter [facility] Date(s): 07/06/20 - 08/05/20 [facility] Adult [address] [place] [address]- Allergies, Adverse Reactions, Alerts Substance Reaction Severity [...] (oldterm) 8 03/14/09 Given 1Result Comment: [02/13/2018] [id number] 2Result Comment: [02/08/2017] [facility] [id number] 317 02 3Result Comment: [01/24/2013] ORDERRED BY GINA BHAT MD 4Result Comment: [09/19/2017] [id number] 5Admin Note: vis given 6Admin Note: BIOMEDICAL [...] EDT, Route to Pharmacy Electronically, [facility], 163, cm, 10/01/19 13:40:00 EDT, [...] Refills, Soft Stop, 05/13/20 10:25:00 EST, Capsule, [facility], 1 capsule By Mouth Once,PRN:as [...] 1 Refills, Maintenance, 07/20/19 23:41:00 EDT, Tablet, [facility], 163, cm, 07/11/19 11:24:00 EST, Height, 82.6, kg, 05/24/18 7:14:00EST, Dry Weight Start Date: 07/20/19 Status: Ordered lisinopril 2.5 mg oral tablet 2.5 mg, 1, tablet, By Mouth, Daily, # 30 tablet, Refills 11, Tot. Refills 11, Maintenance, 10/02/2013:10:00 EDT, Route to Pharmacy Electronically, [facility], 163, cm, 10/01/19 13:40:00 EDT, [...] Refills, Maintenance, 04/05/20 11:00:00 EST, [facility], 163, cm, 01/16/20 10:48:00 EDT, [...] 15:50:00 EDT, 11/06/19 15:50:00 EDT, [facility], 163, cm, 10/01/19 13:40:00 EDT, Height, 82.6, kg, 05/24/18 7:14:00 EST, Dry Weight Start Date: 11/06/19 Stop Date: 10/31/20 Status: Ordered ondansetron 8 mg oral tablet 1 tablet = 8 mg, By Mouth, 3 times a day, PRN Nausea & Vomiting, # 30 tablet, 0 Refills, Maintenance, 10/01/19 15:46:00 EDT, Tablet, [facility], 163, cm, 10/01/19 13:40:00 EDT, Height, 82.6, kg, 05/24/18 7:14:00 EST, Dry Weight Start Date: 10/01/19 Status: Ordered Pen [place], 31 G x 5 mm BD Ultra Fine III See Instructions, # 150 each, Refills 6, Tot. Refills 6, Maintenance, for use 4x daily with Lantus and humalog insulin E11.65, 06/24/18 10:09:38 EST, Compound Start Date: 06/24/18 Status: Ordered Pen [place], 31 G x 5 mm BD Ultra [...] 07/26/20 10:28:00 EDT, Route to Pharmacy Electronically, [facility], 163, cm, 07/26/20 8:40:00 EDT, Height Start Date: 07/26/20 Status: Ordered SUMAtriptan 100 mg oral tablet 1 tablet, By Mouth, Daily, PRN NEEDED FOR MIGRAINE, MAY REPEAT DOSE IN 2 HOURS IF NEEDED, # 9 tablet, 11 Refills, Soft Stop, 05/10/20 14:37:00 EST, [facility], 163, cm, 01/16/20 10:48:00 EDT, Height, 82.6, kg, 05/24/18 7:14:00 EST, . Start Date: 05/10/20 Status: Ordered topiramate 50 mg oral tablet See Instructions, 1 tablet in morning, 3 tablets at bedtime, # 120 tablet, 5 Refills, Maintenance, 07/06/20 10:04:00 EST, [facility], 163, cm, 05/13/20 9:12:00 EST, [...]
--- OUTSIDE RECORDS SUMMARY | 2024-01-11 13:53 | XMS_ITS | Continuity of Care Document ---
Author Organization [facility] David Address [address] [place] [address]- Care Team Providers Care Loans Consultant Name Role Phone Perlita CHAIDEZ, Gina Smith Primary Care Physician [phone] [facility] Date(s): 01/21/21 - 02/20/21 [facility] Adult [address] [place] [address]- Allergies, Adverse Reactions, Alerts Substance Reaction Severity [...] (oldterm) 8 03/14/09 Given 1Result Comment: [02/13/2018] [id number] 2Result Comment: [02/08/2017] [facility] [id number] 317 02 3Result Comment: [01/24/2013] ORDERRED BY GINA GAINES MD 4Result Comment: [09/19/2017] [id number] 5Admin Note: vis given 6Admin Note: BIOMEDICAL [...] 12/01/20 15:40:00 EDT, Route to Pharmacy Electronically, [facility], 163,cm, 11/22/20 12:47:00 EDT, Height [...] Refills, Soft Stop, 11/01/20 15:04:00 EDT, Tablet, [facility], Partial fill upon patient request [...] Maintenance, 10/26/20 11:52:00EDT, Route to Pharmacy Electronically, [facility], 163, cm, 09/23/20 9:42:00 EDT,Height [...] Refills, Maintenance, 02/10/21 15:07:00 EDT, [facility], 163, cm, 02/10/21 14:31:00 EDT, [...] Weight Start Date: 10/01/19 Status: Ordered Pen [place], 31 G x 5 mm BD Ultra Fine III See Instructions, # 150 each, Refills 6, Tot. Refills 6, Maintenance, for use 4x daily with Lantus and humalog insulin E11.65, 06/24/18 10:09:38 EST, Compound Start Date: 06/24/18 Status: Ordered Pen [place], 31 G x 5 mm BD [...] 07/26/20 10:28:00 EDT, Route to Pharmacy Electronically, [facility], 163, cm, 07/26/20 8:40:00 EDT, Height Start Date: 07/26/20 Status: Ordered SUMAtriptan 100 mg oral tablet 1 tablet, By Mouth, Daily, PRN NEEDED FOR MIGRAINE, MAY REPEAT DOSE IN 2 HOURS IF NEEDED, # 9 tablet, 11 Refills, Soft Stop, 05/10/20 14:37:00 EST, [facility], 163, cm, 01/16/20 10:48:00 EDT, Height, 82.6, kg, 05/24/18 7:14:00 ESTDr... Start Date: 05/10/20 Status: Ordered topiramate 50 mg oral tablet See Instructions, 1 tablet in morning, 3 tablets at bedtime, # 120 tablet, 5 Refills, Maintenance, 01/21/21 15:35:00 EDT, [facility], 163, cm, 11/22/20 12:47:00 EDT, [...]
--- OUTSIDE RECORDS SUMMARY | 2024-01-11 13:53 | XMS_ITS | Continuity of Care Document ---
Author Organization [facility] David lt Address [address] [place] [address]- Care Team Providers Care Spring Crater Name Role Phone Miles OTOOLE, Bernie Hardy Primary Care Physician [facility] Date[facility]s): 07/31/23 - 08/30/23 [facility] Adult [address] [place] [address]- Allergies, Adverse Reactions, Alerts Substance Reaction Severity [...] (oldterm) 8 03/14/09 Given 1Result Comment: [09/19/2017] [id number] 2Result Comment: [02/13/2018] [id number] 3Result Comment: [02/08/2017] [facility] [id number] 317 02 4Result Comment: [01/24/2013] ORDERRED BY [...] EST, Route to Pharmacy Electronically, [facility], 163, cm, 03/07/23 8:42:00 EDT, [...] tablet, Refills 5, Maintenance, 03/27/23 23:12:00 EST, [facility], [facility] [...] Personnel Name: Marisa CHAIDEZ, Neto Osorio Position: [facility] Renal MD Member Role: Lifetime Consulting Physician Address: Address: [address] [place] [address] [address] [facility] [address]- [place] Name: Oz SHERWOOD, Lore Position: [facility] RN Member Role: Primary Care Nurse Name: Miles OTOOLE, Bernie Hardy Position: [facility] PCO Associate Professional Member Role: PCP Address: Address: [address] [place] [address]- [place] Name: Gregg Hardy MD Position: [facility] Pulmonary MD Member Role: Lifetime Consulting Physician Address: Address: [address] [place] [address]- Care Team Related Persons Name: ONDINA SINGLETARY Address: home [address] [place] [address] Name: BLAIRE JACOB Address: home [address] [place] [address]
--- OUTSIDE RECORDS SUMMARY | 2024-01-11 13:53 | XMS_ITS | Continuity of Care Document ---
Author Organization [facility] Sj Jauregui David lt Address [address] [place] [address]- Care Team Providers Care Inseam Trimming Machine Operator Name Role Phone Gina Bhat MD Primary Care Physician [phone] [facility] Date(s): 01/21/20 - 02/20/20 [facility] Adult [address] [place] [address]- [facility] Allergies, Adverse Reactions, Alerts Substance Reaction Severity [...] (oldterm) 8 03/14/09 Given 1Result Comment: [02/13/2018] [id number] 2Result Comment: [02/08/2017] [facility] [id number] 317 02 3Result Comment: [01/24/2013] ORDERRED BY GINA BHAT MD 4Result Comment: [09/19/2017] [id number] 5Admin Note: vis given 6Admin Note: BIOMEDICAL [...] Soft Stop, 12/29/19 16:39:00 EDT, [facility], 163, cm, 12/15/19 9:18:00 EDT, [...] EDT, Route to Pharmacy Electronically, [facility], 163, cm, 10/01/19 13:40:00 EDT, [...] 1 Refills, Maintenance, 07/20/19 23:41:00 EDT, Tablet, [facility], 163, cm, 07/11/19 11:24:00 EST, Height, 82.6, kg, 05/24/18 7:14:00EST, Dry Weight Start Date: 07/20/19 Status: Ordered lisinopril 2.5 mg oral tablet 2.5 mg, 1, tablet, By Mouth, Daily, # 30 tablet, Refills 11, Tot. Refills 11, Maintenance, 10/02/2013:10:00 EDT, Route to Pharmacy Electronically, [facility], 163, cm, 10/01/19 13:40:00 EDT, [...] tablet, 2 Refills, Maintenance, 12/29/19 13:42:00 EDT, [facility], 163, cm, 12/15/19 9:18:00 EDT, [...] Requisition Start Date: 05/19/16 Status: Ordered Pen [place], 31 G x 5 mm BD Ultra Fine III See Instructions, # 150 each, Refills 6, Tot. Refills 6, Maintenance, for use 4x daily with Lantus and humalog insulin E11.65, 06/24/18 10:09:38 EST, Compound Start Date: 06/24/18 Status: Ordered Pen [place], 31 G x 5 mm BD Ultra [...] 05/30/19 11:43:00 EST, Route to Pharmacy Electronically, [facility], 163, cm, 05/30/19 11:08:00 EST, Height, 82.6, kg, 05/24/18 7:14:00 EST,... Start Date: 05/30/19 Status: Ordered SUMAtriptan 100 mg oral tablet 1 tablet, By Mouth, Daily, PRN NEEDED FOR MIGRAINE, # 9 tablet, Refills 11 Tot. Refills 11, MAY REPEAT DOSE IN 2 HOURS IF NEEDED, [facility] Start Date: 04/14/19 Status: Ordered topiramate 50 mg oral tablet See Instructions, 1 tablet in morning, 3 tablets at bedtime, # 120 tablet, 5 Refills, Maintenance, 12/30/19 9:06:00 EDT, [facility], 163, cm, 12/15/19 9:18:00 EDT, [...]
--- OUTSIDE RECORDS SUMMARY | 2024-01-11 13:53 | XMS_ITS | Continuity of Care Document ---
Author Organization [facility] David lt Address [address] [place] [address]- Care Team Providers Care Cafeteria Supervisor Name Role Phone Gina Bhat MD Primary Care Physician [facility] Date[facility]s): 09[facility]23[facility]20 - 10/23/20 [facility] Adult [address] [place] [address]- Attending Physician: AdmBrooklyn lopez Admitting Physician: Admtr, Ar8 Referring Physician: Admtr, [...] (oldterm) 8 03/14/09 Given 1Result Comment: [02/13/2018] [id number] 2Result Comment: [02/08/2017] [facility] [id number] 317 02 3Result Comment: [01/24/2013] ORDERRED BY GINA BHAT MD 4Result Comment: [09/19/2017] [id number] 5Admin Note: vis given 6Admin Note: BIOMEDICAL [...] EDT, Route to Pharmacy Electronically, [facility], 163, cm, 10/01/19 13:40:00 EDT, [...] 1, tablet, By Mouth, Daily, # 30 Unknown, Refills 0, Tot. Refills 0, Maintenance, 08/31/20 17:05:00EDT, Route to Pharmacy Electronically, [facility], 163, cm, 07/26/20 8:40:00 EDT,Height Start Date: 08/31/20 Status: Ordered lithium 300 mg oral tablet [...] Weight Start Date: 10/01/19 Status: Ordered Pen [place], 31 G x 5 mm BD Ultra Fine III See Instructions, # 150 each, Refills 6, Tot. Refills 6, Maintenance, for use 4x daily with Lantus and humalog insulin E11.65, 06/24/18 10:09:38 EST, Compound Start Date: 06/24/18 Status: Ordered Pen [place], 31 G x 5 mm BD Ultra [...] 07/26/20 10:28:00 EDT, Route to Pharmacy Electronically, [facility], 163, cm, 07/26/20 8:40:00 EDT, Height Start Date: 07/26/20 Status: Ordered SUMAtriptan 100 mg oral tablet 1 tablet, By Mouth, Daily, PRN NEEDED FOR MIGRAINE, MAY REPEAT DOSE IN 2 HOURS IF NEEDED, # 9 tablet, 11 Refills, Soft Stop, 05/10/20 14:37:00 EST, [facility], 163, cm, 01/16/20 10:48:00 EDT, [...] fiberoptic bronchoscopy C ompleted MRI brain , 2012 - chronic s inusitis, no brain path pathology Complete d placement of port-a-cath, August 2010 Completed sleep study 2011 Complete d Social History Social History Type Response Smoking Status Never smoker entered on: 01/21/18 Sex
--- OUTSIDE RECORDS SUMMARY | 2024-01-11 13:53 | XMS_ITS | Continuity of Care Document ---
Author Organization [facility] Juventino David lt Address [address] [place] [address]- Care Team Providers Care Certified Welder Name Role Phone Miles OTOOLE, Bernie Hardy Primary Care Physician [phone] [facility]counter [facility] Date(s): 12/27/21 - 01/26/22 [facility] Adult [address] [place] [address]- Allergies, Adverse Reactions, Alerts Substance Reaction Severity [...] (oldterm) 8 03/14/09 Given 1Result Comment: [02/13/2018] [id number] 2Result Comment: [02/08/2017] [facility] [id number] 317 02 3Result Comment: [01/24/2013] ORDERRED BY GINA GAINES MD 4Result Comment: [09/19/2017] [id number] 5Admin Note: vis given 6Admin Note: BIOMEDICAL [...] 12/01/20 15:40:00 EDT, Route to Pharmacy Electronically, [facility], 163,cm, 11/22/20 12:47:00 EDT, Height Start Date: 12/01/20 Status: Ordered EpiPen 2-Juvenal = 0.3 mg, Intramuscular, Once, 0 Refills, Maintenance Start Date: 01/31/11 Status: Ordered Fioricet oral capsule 1 capsule, By Mouth, Once, PRN as needed, repeat in 2 hours if headache is still present, # 30 capsule, 0 Refills, Soft Stop, 05/13/20 10:25:00 EST, Capsule, [facility], 1 capsule By Mouth Once,PRN:as needed,Instr:repeat in 2 hours if he... Start Date: 05/13/20 Status: Ordered fluconazole 150 mg oral tablet 1 tablet = 150 mg, By Mouth, Once, epeat dose if still having symptoms in 72 hours, # 2 tablet, 0 Refills, Soft Stop, 11/01/20 15:04:00 EDT, Tablet, [facility], Partial fill upon patient request [...] Name: Bernie Aquino NP Address: [address] [facility] [place] [address]-
--- OUTSIDE RECORDS SUMMARY | 2024-01-11 13:53 | XMS_ITS | Continuity of Care Document ---
Author Organization [facility] Sj Jauregui David lt Address [address] [place] [address]- Care Team Providers Care Ship Painter Helper Name Role Phone Gina Bhat MD Primary Care Physician [facility] Date(s): 01/20/20 - 02/19/20 [facility] Sj Figueroaley Adult [address] [place] [address]- [facility] Allergies, Adverse Reactions, Alerts Substance Reaction Severity [...] (oldterm) 8 03/14/09 Given 1Result Comment: [02/13/2018] [id number] 2Result Comment: [02/08/2017] [facility] [id number] 317 02 3Result Comment: [01/24/2013] ORDERRED BY GINA BHAT MD 4Result Comment: [09/19/2017] [id number] 5Admin Note: vis given 6Admin Note: BIOMEDICAL [...] Soft Stop, 12/29/19 16:39:00 EDT, [facility], 163, cm, 12/15/19 9:18:00 EDT, [...] EDT, Route to Pharmacy Electronically, [facility], 163, cm, 10/01/19 13:40:00 EDT, [...] 1 Refills, Maintenance, 07/20/19 23:41:00 EDT, Tablet, [facility], 163, cm, 07/11/19 11:24:00 EST, Height, 82.6, kg, 05/24/18 7:14:00EST, Dry Weight Start Date: 07/20/19 Status: Ordered lisinopril 2.5 mg oral tablet 2.5 mg, 1, tablet, By Mouth, Daily, # 30 tablet, Refills 11, Tot. Refills 11, Maintenance, 10/02/2013:10:00 EDT, Route to Pharmacy Electronically, [facility], 163, cm, 10/01/19 13:40:00 [...] tablet, 2 Refills, Maintenance, 12/29/19 13:42:00 EDT, [facility], 163, cm, 12/15/19 9:18:00 [...] Requisition Start Date: 05/19/16 Status: Ordered Pen [place], 31 G x 5 mm BD Ultra Fine III See Instructions, # 150 each, Refills 6, Tot. Refills 6, Maintenance, for use 4x daily with Lantus and humalog insulin E11.65, 06/24/18 10:09:38 EST, Compound Start Date: 06/24/18 Status: Ordered Pen [place], 31 G x 5 mm BD Ultra [...] 05/30/19 11:43:00 EST, Route to Pharmacy Electronically, [facility], 163, cm, 05/30/19 11:08:00 EST, Height, 82.6, kg, 05/24/18 7:14:00 EST,... Start Date: 05/30/19 Status: Ordered SUMAtriptan 100 mg oral tablet 1 tablet, By Mouth, Daily, PRN NEEDED FOR MIGRAINE, # 9 tablet, Refills 11 Tot. Refills 11, MAY REPEAT DOSE IN 2 HOURS IF NEEDED, [facility] Start Date: 04/14/19 Status: Ordered topiramate 50 mg oral tablet See Instructions, 1 tablet in morning, 3 tablets at bedtime, # 120 tablet, 5 Refills, Maintenance, 12/30/19 9:06:00 EDT, [facility], 163, cm, 12/15/19 9:18:00 EDT, [...]
--- OUTSIDE RECORDS SUMMARY | 2024-01-11 13:53 | XMS_ITS | Continuity of Care Document ---
Author Organization [facility] Juventino David Address [address] [place] [address]- Care Team Providers Care Human Resources Psychologist Name Role Phone Miles OTOOLE, Bernie Hardy Primary Care Physician [phone] [facility] Date(s): 09/05/23 - 10/05/23 [facility] Adult [address] [place] [address]- Allergies, Adverse Reactions, Alerts Substance Reaction Severity [...] (oldterm) 8 03/14/09 Given 1Result Comment: [09/19/2017] [id number] 2Result Comment: [02/13/2018] [id number] 3Result Comment: [02/08/2017] [facility] [id number] 317 02 4Result Comment: [01/24/2013] ORDERRED BY [...] EST, Route to Pharmacy Electronically, [email or web address], 163, cm, 03/07/23 8:42:00 EDT, [...] 12/01/20 15:40:00 EDT, Route to Pharmacy Electronically, [facility], 163,cm, 11/22/20 12:47:00 EDT, Height [...] Refills, Maintenance, 04/23/23 11:08:00 EST, [email or web address], 163, cm, 03/07/23 8:42:00 EDT, Height, 76.2, kg, 01/06/22 8:38:00 EDT, Dry Weight Start Date: 04/23/23 Status: Ordered montelukast 10 mg oral tablet 1, tablet, By Mouth, Daily in PM, # 90 tablet, Refills 1, Tot. Refills 1, Maintenance, 10/01/23 18:42:00 EDT, Route to Pharmacy Electronically, [email or web address], 163, cm, 09/06/23 10:02:00 EDT, [...] Role: Lifetime Consulting Physician Address: Address: [address] [place] [address] [address] [place] [address]- Name: Oz SHERWOOD, Lore Position: [facility] RN Member Role: Primary Care Nurse Name: Miles OTOOLE, Bernie Hardy Position: [facility] PCO Associate Professional Member Role: PCP Address: Address: [address] [place] [address]- [place] Name: Gregg Hardy MD Position: [facility] Pulmonary MD Member Role: Lifetime Consulting Physician Address: Address: [address] [place] [address]- Care Team Related Persons Name: ONDINA SINGLETARY Address: home [address] [place] [address] Name: BLAIRE JACOB Address: home [address] [place] [address]
--- OUTSIDE RECORDS SUMMARY | 2024-01-11 13:53 | XMS_ITS | Continuity of Care Document ---
Author Organization [facility] ter Address [address] [place] [address]- Care Team Providers Care Potato Chip Maker Name Role Phone Lisandro Bhat MD Primary Care Physician [facility] Date[facility]s): 06/12/19 - 06/12/[address] [address]- [facility] Attending Physician: Lisandro Bhat MD Allergies, Adverse Reactions, Alerts Substance [...] (oldterm) 8 03/14/09 Given 1Result Comment: [02/13/2018] [id number] 2Result Comment: [02/08/2017] [facility] [id number] 317 02 3Result Comment: [01/24/2013] ORDERRED BY LISANDRO BHAT MD 4Result Comment: [09/19/2017] [id number] 5Admin Note: vis given 6Admin Note: BIOMEDICAL [...] 07/24/18 12:13:57 EDT, Route to Pharmacy Electronically, [id number], [facility] Start Date: 07/24/18 Status: [...] 01/06/19 11:51:55 EDT, Route to Pharmacy Electronically, [id number], [facility] Start Date: 01/06/19 Status: Ordered [...] 0 Refills, Soft Stop, 06/06/19 10:53:00 EST, Tablet,[facility], 163, cm, 06/04/19 8:19:00 EST, Height, 82.6, kg, 05/24/18 7:14:00 EST, Dry Weight Start Date: 06/06/19 Status: Ordered folic acid 1 mg oral tablet 4 mg, 4, tablet, By Mouth, Daily, # 120 tablet, Refills 5, Tot. Refills 5, Maintenance, 05/22/19 16:08:00 EST, Route to Pharmacy Electronically, [facility], Patient prescribed increased dose secondary [...] Refills, Maintenance, Tablet, Route to Pharmacy Electronically, [id number], [facility] Start Date: 07/31/18 Status: Ordered lisinopril 2.5 mg oral tablet 2.5 mg, 1, tablet, By Mouth, Daily, # 30 tablet, Refills 11, Tot. Refills 11, Maintenance, 10/10/1915:45:18 EDT, Route to Pharmacy Electronically, [id number], [facility] Start Date: [...] Requisition Start Date: 05/19/16 Status: Ordered Pen [place], 31 G x 5 mm BD Ultra [...] 05/30/19 11:43:00 EST, Route to Pharmacy Electronically, [facility], 163, cm, 05/30/19 11:08:00 EST, Height, 82.6, kg, 05/24/18 7:14:00 EST,... Start Date: 05/30/19 Status: Ordered SUMAtriptan 100 mg oral tablet 1 tablet, By Mouth, Daily, PRN NEEDED FOR MIGRAINE, # 9 tablet, Refills 11 Tot. Refills 11, MAY REPEAT DOSE IN 2 HOURS IF NEEDED, [facility] Start Date: 04/14/19 Status: Ordered [...]
--- OUTSIDE RECORDS SUMMARY | 2024-01-11 13:53 | XMS_ITS | Continuity of Care Document ---
Author Organization [facility] Address [address] [place] [address]- Care Team Providers Care Search Planner Name Role Phone Miles OTOOLE, Bernie Hardy Primary Care Physician [phone] Encounter [facility] Date(s): 07/10/22 - 08/09/22 [facility] [address] [place] [address] Allergies, Adverse Reactions, Alerts Substance Reaction Severity Status azithromycin 1 increases sx's Active morphine vomiting Active Flonase rhinitis Active Augmentin 2 increases sx Active Adhesive Bandage rash Active Cats sneezing Active NSAIDs Active Reglan double vision Active [...] (oldterm) 8 03/14/09 Given 1Result Comment: [09/19/2017] [id number] 2Result Comment: [02/13/2018] [id number] 3Result Comment: [02/08/2017] [facility] [id number] 317 02 4Result Comment: [01/24/2013] ORDERRED BY [...] 05/25/22 6:49:00 EST, Route to Pharmacy Electronically, [email or web address], 163, cm, 04/04/22 7:05:00 EST, [...] 12/01/20 15:40:00 EDT, Route to Pharmacy Electronically, [facility], 163,cm, 11/22/20 12:47:00 [...] Name: Marisa CHAIDEZ, Neto Osorio Position: [facility] Renal MD Member Role: Lifetime Consulting Physician Address: Address: [address] [place] [address], [address] [place] [address]- Name: Lore Clinton RN Position: [facility] RN Member Role: Primary Care Nurse Name: Miles OTOOLE, Bernie Hardy Position: [facility] PCO Associate Professional Member Role: PCP Address: Address: [address] [place] [address]- [place] Name: Gregg Hardy MD Position: [facility] Pulmonary MD Member Role: Lifetime Consulting Physician Address: Address: [address] [place] [address]- Care Team Related Persons Name: MERRITT SINGLETARY Address: home [address] [place] [address] Name: BLAIRE JACOB Address: home [address] [place] [address]
--- OUTSIDE RECORDS SUMMARY | 2024-01-11 13:53 | XMS_ITS | Continuity of Care Document ---
Author Organization [facility] Juventino David lt Address [address] [place] [address]- Care Team Providers Care Hazardous Substances Engineer Name Role Phone Miles OTOOLE, Bernie Hardy Primary Care Physician [phone] Encounter [facility] Date(s): 03/21/22 - 04/20/22 [facility] Adult [address] [place] [address]- Allergies, Adverse Reactions, Alerts Substance Reaction Severity Status azithromycin 1 increases sx's Active Flonase rhinitis Active morphine vomiting Active Augmentin 2 increases [...] (oldterm) 8 03/14/09 Given 1Result Comment: [02/13/2018] [id number] 2Result Comment: [02/08/2017] [facility] [id number] 317 02 3Result Comment: [01/24/2013] ORDERRED BY GINA GAINES MD 4Result Comment: [09/19/2017] [id number] 5Admin Note: vis given 6Admin Note: BIOMEDICAL [...] Role: Lifetime Consulting Physician Address: Address: [address] [place] [address], [address] [place] [address] Name: Lore Clinton RN Position: [facility] RN Member Role: Primary Care Nurse Name: Bernie Aquino NP Position: [facility] PCO Associate Professional Member Role: PCP Address: Address: [address] [place] [address]- [place] Name: Gregg Hardy MD Position: [facility] Pulmonary MD Member Role: Lifetime Consulting Physician Address: Address: [address] [place] [address]- Care Team Related Persons Name: MERRITT SINGLETARY Address: home [address] [place] [address] Name: BLAIRE JACOB Address: home [address] [place] [address]
--- OUTSIDE RECORDS SUMMARY | 2024-01-11 13:53 | XMS_ITS | Continuity of Care Document ---
Author Organization [facility] Juventino David Address [address] [place] [address]- Care Team Providers Care Tube Machine Operator Name Role Phone Gina Bhat MD Primary Care Physician [phone] Encounter [facility] Date(s): 06/07/21 - 06/14/21 [facility] Adult [address] [place] [address]- Encounter Diagnosis Trigeminal neuralgia(Discharge Diagnosis) - 06/07/21 Attending Physician: Gina Bhat MD Allergies, Adverse [...] (oldterm) 8 03/14/09 Given 1Result Comment: [02/13/2018] [id number] 2Result Comment: [02/08/2017] [facility] [id number] 317 02 3Result Comment: [01/24/2013] ORDERRED BY GINA BHAT MD 4Result Comment: [09/19/2017] [id number] 5Admin Note: vis given 6Admin Note: BIOMEDICAL [...] EDT, Route to Pharmacy Electronically, [facility], 163,cm, 11/22/20 12:47:00 EDT, Height [...] Refills, Maintenance, 02/10/21 15:07:00 EDT, [facility], 163, cm, 02/10/21 14:31:00 EDT, [...] 02/23/21 16:10:00 EDT, Route to Pharmacy Electronically, [facility], Rx resent from [...] Effective Dates Health Status Clinical Service Informant Trigeminal neuralgia Discharge Diagnosis 06/07/21 Vital Signs Most recent to oldest [Reference Range]: 1 Height 163 cm (06/07/21 2:40 PM) Weight 79.4 kg (06/07/21 2:40 PM) Oxygen Saturation [94-100 %] 96 % (06/07/21 2:40 PM) Pulse Rate [55-90 bpm] 86 bpm (06/07/21 2:40 PM) Body Mass Index [18.5-24.99] 29.88 *H* (06/07/21 2:40 PM) Blood Pressure [90-138/55-84 mm Hg] 109/ 76mm Hg (06/07/21 2:40 PM) Temperature [96.8-100.4 DegF] 98.3 DegF (06/07/21 2:40 PM) Mode of Delivery (Oxygen) Room air (06/07/21 2:40 PM) Blood pressure sites Arm, left (06/07/21 2:40 PM) Temperature Route Oral (06/07/21 2:40 PM) Weight Obtained Via Standing scale (06/07/21 2:40 PM) Social History Social History Type Response Smoking Status Never smoker entered on: 01/21/18 Sex
--- OUTSIDE RECORDS SUMMARY | 2024-01-11 13:53 | XMS_ITS | Continuity of Care Document ---
Author Organization [facility] Juventino David lt Address [address] [place] [address]- Care Team Providers Care Sales Ambassador Name Role Phone Gina Bhat MD Primary Care Physician Encounter [facility] Date(s): 04/15/21 - 04/22/21 [facility] Adult [address] [place] [address]- Encounter Diagnosis Migraine(Discharge Diagnosis) - 04/15/21 Bacterial sinusitis(Discharge Diagnosis) - 04/15/21 Attending Physician: Gina Bhat MD Allergies, Adverse Reactions, Alerts Substance Reaction Severity Status azithromycin 1 Active morphine vomiting Active Augmentin 2 Active Reglan double vision Active Cats Active Flonase Active Demerol HCl vomiting Active Adhesive Bandage [...] (oldterm) 8 03/14/09 Given 1Result Comment: [02/13/2018] [id number] 2Result Comment: [02/08/2017] [facility] [id number] 317 02 3Result Comment: [01/24/2013] ORDERRED BY GINA BHAT MD 4Result Comment: [09/19/2017] [id number] 5Admin Note: vis given 6Admin Note: BIOMEDICAL [...] Height, 8... Start Date: 02/10/21 Status: Ordered Avelox 400 mg oral tablet 1 tablet = 400 mg, By Mouth, Daily, for 10 days, # 10 tablet, 0 Refills, Acute 04/25/21 12:10:00 EST, 04/15/21 12:10:00 EST, Tablet, [facility], Partial fill upon patient request ifthe prescription is for a schedule II opioid drug., 163... Start Date: 04/15/21 Stop Date: 04/25/21 Status: Ordered benztropine 1 mg oral tablet [...] [facility] #[facility], D/C RX ON FILE FOR [facility], 163, c... Start Date: 05/18/20 Status: Ordered [...] 12/01/20 15:40:00 EDT, Route to Pharmacy Electronically, [facility], 163,cm, 11/22/20 12:47:00 EDT, Height [...] Stop, 11/01/20 15:04:00 EDT, Tablet, [facility], Partial fill upon patient request [...] Weight Start Date: 03/16/21 Status: Ordered Pen [place], 31 G x 5 mm BD Ultra Fine III See Instructions, # 150 each, Refills 6, Tot. Refills 6, Maintenance, for use 4x daily with Lantus and humalog insulin E11.65, 06/24/18 10:09:38 EST, Compound Start Date: 06/24/18 Status: Ordered Pen [place], 31 G x 5 mm BD Ultra [...] Dates Health Status Cl inical Service Informant Migraine Discharge Diagnosis 04/15/21 Bacterial sinusitis Discharge Diagnosis 04/15/21 Vital Signs Most recent to oldest [Reference Range]: 1 Height 163 cm (04/15/21 11:42 AM) Weight 80.2 kg (04/15/21 11:42 AM) Oxygen Saturation [94-100 %] 96 % (04/15/21 11:42 AM) Pulse Rate [55-90 bpm] 74 bpm (04/15/21 11:42 AM) Body Mass Index [18.5-24.99] 30.19 *>HHI* (04/15/21 11:42 AM) Blood Pressure [90-138/55-84 mm Hg] 112/ 74mm Hg (04/15/21 11:42 AM) Temperature [96.8-100.4 DegF] 98.3 DegF (04/15/21 11:42 AM) Mode of Delivery (Oxygen) Room air (04/15/21 11:42 AM) Blood pressure sites Arm, left (04/15/21 11:42 AM) Weight Obtained Via Standing scale (04/15/21 11:42 AM) Social History Social History Type Response Smoking Status Never smoker entered on: 01/21/18 Sex
--- OUTSIDE RECORDS SUMMARY | 2024-01-11 13:53 | XMS_ITS | Continuity of Care Document ---
Author Organization [facility] Juventino David lt Address [address] [place] [address]- Care Team Providers Care Turkey Boner Name Role Phone Miles OTOOLE, Bernie Hardy Primary Care Physician Encounter [facility] Date(s): 02/03/22 - 03/05/22 [facility] Adult [address] [place] [address]- Allergies, Adverse Reactions, Alerts Substance Reaction Severity [...] (oldterm) 8 03/14/09 Given 1Result Comment: [02/13/2018] [id number] 2Result Comment: [02/08/2017] [facility] [id number] 317 02 3Result Comment: [01/24/2013] ORDERRED BY GINA GAINES MD 4Result Comment: [09/19/2017] [id number] 5Admin Note: vis given 6Admin Note: BIOMEDICAL [...] Name: Miles OTOOLE, Bernie Hardy Address: Address: [address] [place] [address]-
--- OUTSIDE RECORDS SUMMARY | 2024-01-11 13:54 | XMS_ITS | Continuity of Care Document ---
Author Organization [facility] Address [address] [place] [address]- Care Team Providers Care Occupational Work Experience Teacher Name Role Phone Gina Bhat MD Primary Care Physician [phone] [facility]counter [facility] Date(s): 09/30/20 - 10/30/20 [facility] Adult [address] [place] [address]- Allergies, Adverse Reactions, Alerts Substance Reaction Severity [...] (oldterm) 8 03/14/09 Given 1Result Comment: [02/13/2018] [id number] 2Result Comment: [02/08/2017] [facility] [id number] 317 02 3Result Comment: [01/24/2013] ORDERRED BY GINA BHAT MD 4Result Comment: [09/19/2017] [id number] 5Admin Note: vis given 6Admin Note: BIOMEDICAL [...] EST, Route to Pharmacy Electronically, [facility], D/C RX ON FILE FOR [...] 11:52:00EDT, Route to Pharmacy Electronically, [facility], 163, cm, 09/23/20 9:42:00 EDT,Height [...] Refills, Maintenance, 10/04/20 11:38:00 EDT, [facility], 163, cm, 09/23/20 9:42:00 EDT, [...] Weight Start Date: 10/01/19 Status: Ordered Pen [place], 31 G x 5 mm BD Ultra Fine III See Instructions, # 150 each, Refills 6, Tot. Refills 6, Maintenance, for use 4x daily with Lantus and humalog insulin E11.65, 06/24/18 10:09:38 EST, Compound Start Date: 06/24/18 Status: Ordered Pen [place], 31 G x 5 mm BD Ultra [...] 07/26/20 10:28:00 EDT, Route to Pharmacy Electronically, [facility], 163, cm, 07/26/20 8:40:00 EDT, [...] 5 Refills, Maintenance, 05/13/20 10:22:00 EST, Solution, [facility], Partial fill upon patient request [...]
--- OUTSIDE RECORDS SUMMARY | 2024-01-11 13:54 | XMS_ITS | Continuity of Care Document ---
Author Organization [facility] ter Address [address] [place] [address]- Care Team Providers Care Cad Application Support Specialist Name Role Phone Perlita CHAIDEZ, Gina Smith Primary Care Physician [facility] Date(s): 06/13/19 - 06/13/[address] [address]- [facility] Attending Physician: Chris Rosenbaum MD Allergies, Adverse Reactions, Alerts Substance Reaction [...] (oldterm) 8 03/14/09 Given 1Result Comment: [02/13/2018] [id number] 2Result Comment: [02/08/2017] [facility] [id number] 317 02 3Result Comment: [01/24/2013] ORDERRED BY GINA GAINES MD 4Result Comment: [09/19/2017] [id number] 5Admin Note: vis given 6Admin Note: BIOMEDICAL [...] 07/24/18 12:13:57 EDT, Route to Pharmacy Electronically, [id number], [facility] Start Date: 07/24/18 Status: [...] 01/06/19 11:51:55 EDT, Route to Pharmacy Electronically, [id number], [facility] Start Date: 01/06/19 Status: Ordered [...] 0 Refills, Soft Stop, 06/06/19 10:53:00 EST, Tablet,[facility], 163, cm, 06/04/19 8:19:00 EST, Height, 82.6, kg, 05/24/18 7:14:00 EST, Dry Weight Start Date: 06/06/19 Status: Ordered folic acid 1 mg oral tablet 4 mg, 4, tablet, By Mouth, Daily, # 120 tablet, Refills 5, Tot. Refills 5, Maintenance, 05/22/19 16:08:00 EST, Route to Pharmacy Electronically, [facility], Patient prescribed increased dose secondary [...] Refills, Maintenance, Tablet, Route to Pharmacy Electronically, [id number], [facility] Start Date: 07/31/18 Status: Ordered lisinopril 2.5 mg oral tablet 2.5 mg, 1, tablet, By Mouth, Daily, # 30 tablet, Refills 11, Tot. Refills 11, Maintenance, 10/10/1915:45:18 EDT, Route to Pharmacy Electronically, [id number], [facility] Start Date: [...] Requisition Start Date: 05/19/16 Status: Ordered Pen [place], 31 G x 5 mm BD Ultra [...] 05/30/19 11:43:00 EST, Route to Pharmacy Electronically, [facility], 163, cm, 05/30/19 11:08:00 EST, [...]
--- OUTSIDE RECORDS SUMMARY | 2024-01-11 13:54 | XMS_ITS | Continuity of Care Document ---
Author Organization [facility] Address [address] [place] [address] [address] [place] [address]- Care Team Providers Care Fryer Line Helper Name Role Phone Miles OTOOLE, Bernie Hardy Primary Care Physician [phone] [place] [facility] Date(s): 01/18/22 - 02/17/22 [facility] [address] [place], [place] [address] Allergies, Adverse Reactions, Alerts Substance [...] (oldterm) 8 03/14/09 Given 1Result Comment: [02/13/2018] [id number] 2Result Comment: [02/08/2017] [facility] [id number] 317 02 3Result Comment: [01/24/2013] ORDERRED BY GINA GAINES MD 4Result Comment: [09/19/2017] [id number] 5Admin Note: vis given 6Admin Note: BIOMEDICAL [...] Personnel Name: Bernie Aquino NP Address: Address: [address] [place] [address]
--- OUTSIDE RECORDS SUMMARY | 2024-01-11 13:54 | XMS_ITS | Continuity of Care Document ---
Author Organization [facility] Juventino David lt Address [address] [place] [address]- Care Team Providers Care Chore Tender Name Role Phone Miles OTOOLE, Bernie Hardy Primary Care Physician [facility]21 - 07/07/21 [facility] Adult [address] [place] [address]- Allergies, Adverse Reactions, Alerts Substance Reaction Severity [...] (oldterm) 8 03/14/09 Given 1Result Comment: [02/13/2018] [id number] 2Result Comment: [02/08/2017] [facility] [id number] 317 02 3Result Comment: [01/24/2013] ORDERRED BY GINA GAINES MD 4Result Comment: [09/19/2017] [id number] 5Admin Note: vis given 6Admin Note: BIOMEDICAL [...] AND VOMITING, # 30 tablet, 0 Refills, [facility], 163, cm, 06/07/21 14:40:00 EST, [...] 02/23/21 16:10:00 EDT, Route to Pharmacy Electronically, [facility] #[facility], Rx resent from 07/26/20, 163, cm, 02/21/21 15:42:00 EDT, Height, 81, kg, 09... Start Date: 02/23/21 Status: Ordered topiramate 50 mg oral tablet See Instructions, TAKE 1 TABLET IN THE MORNING AND 3 TABLETS AT BEDTIME., # 120 tablet, 5 Refills, [facility], 163, cm, 06/13/21 9:32:00 EST, [...]
--- OUTSIDE RECORDS SUMMARY | 2024-01-11 13:54 | XMS_ITS | Continuity of Care Document ---
Author Organization [facility]ocrinolo gy and Diabetes Address [address] [place] [address]- Care Team Providers Care Supervisor Airplane Flight Attendant Name Role Phone Miles OTOOLE, Bernie Hardy Primary Care Physician [phone] Encounter [facility] Date(s): 10/26/23 - 11/25/23 [facility] Endocrinology and Diabetes [address] [place] [id number] Allergies, Adverse Reactions, Alerts Substance Reaction Severity [...] (oldterm) 8 03/14/09 Given 1Result Comment: [09/19/2017] [id number] 2Result Comment: [02/13/2018] [id number] 3Result Comment: [02/08/2017] [facility] [id number] 317 02 4Result Comment: [01/24/2013] ORDERRED BY [...] 05/21/23 11:57:00 EST, Route to Pharmacy Electronically, [facility], 163, cm, 03/07/23 8:42:00 EDT, Height, 76.2, kg, 01/06/22 8:38:00 EDT, Dry Weight Start Date: 05/21/23 Status: Ordered Combivent Respimat 20 mcg-100 mcg/inh inhalation aerosol 1 puffs, Inhalation, 4 times a day, # 1 each, 0 Refills, Maintenance, 10/15/23 8:40:00 EDT, [email or web address], Partial fill upon patient request [...] 12/01/20 15:40:00 EDT, Route to Pharmacy Electronically, [email or web address], 163,cm, 11/22/20 12:47:00 EDT, Height [...] Personnel Name: Marisa CHAIDEZ, Neto Osorio Position: [facility] Renal MD Member Role: Lifetime Consulting Physician Address: Address: [address] [place] [address] [address] [facility] [address]- [place] Name: Oz SHERWOOD, Lore Position: [facility] RN Member Role: Primary Care Nurse Name: Miles OTOOLE, Bernie Hardy Position: [facility] PCO Associate Professional Member Role: PCP Address: Address: [address] [place] [id number]- [place] Name: Gregg Hardy MD Position: [facility] Pulmonary MD Member Role: Lifetime Consulting Physician Address: Address: [address] [place] [address]- Care Team Related Persons Name: ONDINA SINGLETARY Address: home [address] [place] [address] Name: BLAIRE JACOB Address: home [address] [place] [address]
--- OUTSIDE RECORDS SUMMARY | 2024-01-11 13:54 | XMS_ITS | Continuity of Care Document ---
Author Organization [facility] David Address [address] [place] [address]- Care Team Providers Care Block Mechanic Name Role Phone Gina Bhat MD Primary Care Physician [facility] Date[facility]s): 04/11/21 - 05/11/21 [facility] Adult [address] [place] [address]- Allergies, Adverse Reactions, Alerts Substance Reaction Severity [...] (oldterm) 8 03/14/09 Given 1Result Comment: [02/13/2018] [id number] 2Result Comment: [02/08/2017] [facility] [id number] 317 02 3Result Comment: [01/24/2013] ORDERRED BY GINA BHAT MD 4Result Comment: [09/19/2017] [id number] 5Admin Note: vis given 6Admin Note: BIOMEDICAL [...] EDT, Route to Pharmacy Electronically, [facility], 163,cm, 11/22/20 12:47:00 EDT, Height [...] Weight Start Date: 03/16/21 Status: Ordered Pen Eva, 31 G x 5 mm BD Ultra Fine III See Instructions, # 150 each, Refills 6, Tot. Refills 6, Maintenance, for use 4x daily with Lantus and humalog insulin E11.65, 06/24/18 10:09:38 EST, Compound Start Date: 06/24/18 Status: Ordered Pen Eva, 31 G x 5 mm BD Ultra [...]
--- OUTSIDE RECORDS SUMMARY | 2024-01-11 13:54 | XMS_ITS | Continuity of Care Document ---
Author Organization [facility]olo [facility] and Diabetes Address [address] [place] [address]- Care Team Providers Care Tile Mechanic Helper Name Role Phone Miles OTOOLE, Bernie Hardy Primary Care Physician [phone] [facility] Date[facility]s): 11/06/22 - 12/06/22 [facility] [address] [place] [id number] Allergies, Adverse Reactions, Alerts Substance Reaction [...] (oldterm) 8 03/14/09 Given 1Result Comment: [09/19/2017] [id number] 2Result Comment: [02/13/2018] [id number] 3Result Comment: [02/08/2017] [facility] [id number] 317 02 4Result Comment: [01/24/2013] ORDERRED BY [...] 05/25/22 6:49:00 EST, Route to Pharmacy Electronically, [facility] #[facility], 163, cm, 04/04/22 7:05:00 EST, [...] 12/01/20 15:40:00 EDT, Route to Pharmacy Electronically, [facility] #[facility], 163,cm, 11/22/20 12:47:00 EDT, Height [...] tablet, Refills 5, Maintenance, 10/01/22 10:34:00 EDT, [facility] [...] Role: Lifetime Consulting Physician Address: Address: [address] [place] [address], [address] [place] [address]- [place] Name: Lore Clinton RN Position: [facility] RN Member Role: Primary Care Nurse Name: Miles OTOOLE, Bernie Hardy Position: [facility] PCO Associate Professional Member Role: PCP Address: Address: [address] [place] [address]- [place] Name: Gregg Hardy MD Position: [facility] Pulmonary MD Member Role: Lifetime Consulting Physician Address: Address: [address] [place] [address]- Care Team Related Persons Name: QUAN SINGLETARYEN Address: home [address] [place] [address] Name: BLAIRE JACOB Address: home [address] [place] [address]
--- OUTSIDE RECORDS SUMMARY | 2024-01-11 13:54 | XMS_ITS | Continuity of Care Document ---
Author Organization [facility] Juventino David lt Address [address] [place] [address]- Care Team Providers Care Metal Pourer Name Role Phone Gina Bhat MD Primary Care Physician [facility] Date[facility]s): 12/01/20 - 12/31/20 [facility] Adult [address] [place] [address]- Allergies, Adverse Reactions, Alerts Substance Reaction Severity [...] (oldterm) 8 03/14/09 Given 1Result Comment: [02/13/2018] [id number] 2Result Comment: [02/08/2017] [facility] [id number] 317 02 3Result Comment: [01/24/2013] ORDERRED BY GINA BHAT MD 4Result Comment: [09/19/2017] [id number] 5Admin Note: vis given 6Admin Note: BIOMEDICAL [...] EST, Route to Pharmacy Electronically, [facility], D/C RX ON FILE FOR [...] Refills, Soft Stop, 11/01/20 15:04:00 EDT, Tablet, [facility] #[facility], Partial fill upon patient request [...] Maintenance, 10/26/20 11:52:00EDT, Route to Pharmacy Electronically, [email or web address], 163, cm, 09/23/20 9:42:00 EDT,Height [...] tablet, 5 Refills, Maintenance, 10/04/20 11:38:00 EDT, [email or web address] #[facility], 163, cm, 09/23/20 9:42:00 EDT, [...] Weight Start Date: 10/01/19 Status: Ordered Pen Sutherlin, 31 G x 5 mm BD Ultra Fine III See Instructions, # 150 each, Refills 6, Tot. Refills 6, Maintenance, for use 4x daily with Lantus and humalog insulin E11.65, 06/24/18 10:09:38 EST, Compound Start Date: 06/24/18 Status: Ordered Pen Sutherlin, 31 G x 5 mm BD Ultra [...] [facility], 163, cm, 07/26/20 8:40:00 EDT, Height Start Date: 07/26/20 Status: Ordered SUMAtriptan 100 mg oral tablet 1 tablet, By Mouth, Daily, PRN NEEDED FOR MIGRAINE, MAY REPEAT DOSE IN 2 HOURS IF NEEDED, # 9 tablet, 11 Refills, Soft Stop, 05/10/20 14:37:00 EST, [email or web address], 163, cm, 01/16/20 10:48:00 EDT, Height, 82.6, kg, 05/24/18 7:14:00 EST, . Start Date: 05/10/20 Status: Ordered topiramate 50 mg oral tablet See Instructions, 1 tablet in morning, 3 tablets at bedtime, # 120 tablet, 5 Refills, Maintenance, 07/06/20 10:04:00 EST, [email or web address] #[facility], 163, cm, 05/13/20 9:12:00 EST, Height Start Date: 07/06/20 Status: Ordered Trulicity Pen 0.75 mg/0.5 mL subcutaneous solution 0.5 mL = 0.75 mg, Subcutaneous Injection, Every week, rotate injection sites, # 2 mL, 5 Refills, Maintenance, 11/01/20 14:54:00 EDT, Solution, [email or web address] #[facility], Partial fill upon patient request [...]
--- OUTSIDE RECORDS SUMMARY | 2024-01-11 13:54 | XMS_ITS | Continuity of Care Document ---
Author Organization [facility] David lt Address [address] [place] [address]- Care Team Providers Care Prepress Technician Name Role Phone Miles OTOOLE, Bernie Hardy Primary Care Physician [phone] [facility]s): 06/28/21 - 07/28/21 [facility] Adult [address] [place] [address]- Allergies, Adverse Reactions, Alerts Substance Reaction Severity [...] (oldterm) 8 03/14/09 Given 1Result Comment: [02/13/2018] [id number] 2Result Comment: [02/08/2017] [facility] [id number] 317 02 3Result Comment: [01/24/2013] ORDERRED BY GINA GAINES MD 4Result Comment: [09/19/2017] [id number] 5Admin Note: vis given 6Admin Note: BIOMEDICAL [...] 10/13/21 16:10:00 EDT, Route to Pharmacy Electronically, [facility] #[facility], Rx resent from 07/26/20, 163, cm, 02/21/21 15:42:00 EDT, Height, 81, kg, 09... Start Date: 02/23/21 Status: Ordered topiramate 50 mg oral tablet See Instructions, TAKE 1 TABLET IN THE MORNING AND 3 TABLETS AT BEDTIME., # 120 tablet, 5 Refills, [facility], 163, cm, 06/13/21 9:32:00 EST, [...] 5 Refills, Maintenance, 05/04/21 16:41:00 EST, Solution, [facility] #[facility], Partial fill upon patient request [...]
--- OUTSIDE RECORDS SUMMARY | 2024-01-11 13:54 | XMS_ITS | Continuity of Care Document ---
Author Organization [facility] Endocrinolo gy and Diabetes Address [address] [place] [address]- Care Team Providers Care Kickboxing Instructor Name Role Phone Miles OTOOLE, Bernie Hardy Primary Care Physician [phone] Encounter [facility] Date(s): 11/21/22 - 12/21/22 [facility] Endocrinology and Diabetes [address] [place] [address] Allergies, Adverse Reactions, Alerts Substance Reaction [...] (oldterm) 8 03/14/09 Given 1Result Comment: [09/19/2017] [id number] 2Result Comment: [02/13/2018] [id number] 3Result Comment: [02/08/2017] [facility] [id number] 317 02 4Result Comment: [01/24/2013] ORDERRED BY [...] 05/25/22 6:49:00 EST, Route to Pharmacy Electronically, [facility], 163, cm, 04/04/22 7:05:00 EST, [...] 12/01/20 15:40:00 EDT, Route to Pharmacy Electronically, [facility], 163,cm, 11/22/20 12:47:00 [...] tablet, Refills 5, Maintenance, 10/01/22 10:34:00 EDT, [facility], [facility] [...] Personnel Name: Marisa CHAIDEZ, Neto Osorio Position: [facility] Renal MD Member Role: Lifetime Consulting Physician Address: Address: [address] [place] [address], [facility] [address] [place] [address]- Name: Lore Clinton RN Position: [facility] RN Member Role: Primary Care Nurse Name: Bernie Aquino NP Position: [facility] PCO Associate Professional Member Role: PCP Address: Address: [address] [place] [address]- [place] Name: Gregg Hardy MD Position: [facility] Pulmonary MD Member Role: Lifetime Consulting Physician Address: Address: [address] [place] [address]- Care Team Related Persons Name: ONDINA SINGLETARY Address: home [address] [place] [address] Name: BLAIRE JACOB Address: home [address] [place] [address]
--- OUTSIDE RECORDS SUMMARY | 2024-01-11 13:54 | XMS_ITS | Continuity of Care Document ---
Author Organization [facility] Juventino David lt Address [address] [place] [address]- Care Team Providers Care Returned Materials Inspector Name Role Phone Miles OTOOLE, Bernie Hardy Primary Care Physician Encounter [facility] Date(s): 08/12/21 - 09/11/21 [facility] Adult [address] [place] [address]- Allergies, Adverse Reactions, Alerts Substance Reaction Severity [...] (oldterm) 8 03/14/09 Given 1Result Comment: [02/13/2018] [id number] 2Result Comment: [02/08/2017] [facility] [id number] 317 02 3Result Comment: [01/24/2013] ORDERRED BY GINA GAINES MD 4Result Comment: [09/19/2017] [id number] 5Admin Note: vis given 6Admin Note: BIOMEDICAL [...] EDT, Route to Pharmacy Electronically, [facility], Rx resent from 07/26/20, 163, [...]
--- OUTSIDE RECORDS SUMMARY | 2024-01-11 13:54 | XMS_ITS | Continuity of Care Document ---
Author Organization [facility] Juventino David Address [address] [place] [address]- Care Team Providers Care Dietitian Name Role Phone Gina Bhat MD Primary Care Physician [phone] [facility] Date(s): 03/15/21 - 04/14/21 [facility] Adult [address] [place] [address]- Allergies, Adverse Reactions, Alerts Substance Reaction Severity [...] (oldterm) 8 03/14/09 Given 1Result Comment: [02/13/2018] [id number] 2Result Comment: [02/08/2017] [facility] 38822 317 02 3Result Comment: [01/24/2013] ORDERRED BY GINA BHAT MD 4Result Comment: [09/19/2017] [id number] 5Admin Note: vis given 6Admin Note: BIOMEDICAL [...] EDT, Route to Pharmacy Electronically, [facility], 163,cm, 11/22/20 12:47:00 EDT, Height [...] Refills, Soft Stop, 11/01/20 15:04:00 EDT, Tablet, [facility], Partial fill upon patient request [...] 11:52:00EDT, Route to Pharmacy Electronically, [facility], 163, cm, 09/23/20 9:42:00 EDT,Height [...] Weight Start Date: 03/16/21 Status: Ordered Pen Dailey, 31 G x 5 mm BD Ultra Fine III See Instructions, # 150 each, Refills 6, Tot. Refills 6, Maintenance, for use 4x daily with Lantus and humalog insulin E11.65, 06/24/18 10:09:38 EST, Compound Start Date: 06/24/18 Status: Ordered Pen Dailey, 31 G x 5 mm BD Ultra [...] 02/23/21 16:10:00 EDT, Route to Pharmacy Electronically, [facility] #[facility], Rx resent from 07/26/20, 163, cm, 02/21/21 15:42:00 EDT, Height, 81, kg, 09... Start Date: 02/23/21 Status: Ordered SUMAtriptan 100 mg oral tablet 1 tablet, By Mouth, Daily, PRN NEEDED FOR MIGRAINE, MAY REPEAT DOSE IN 2 HOURS IF NEEDED, # 9 tablet, 11 Refills, Soft Stop, 05/10/20 14:37:00 EST, [facility] #[facility], 163, cm, 01/16/20 10:48:00 EDT, Height, 82.6, kg, 05/24/18 7:14:00 ESTDr... Start Date: 05/10/20 Status: Ordered topiramate 50 mg oral tablet See Instructions, 1 tablet in morning, 3 tablets at bedtime, # 120 tablet, 5 Refills, Maintenance, 01/21/21 15:35:00 EDT, [facility] #[facility], 163, cm, 11/22/20 12:47:00 [...]
--- OUTSIDE RECORDS SUMMARY | 2024-01-11 13:54 | XMS_ITS | Continuity of Care Document ---
Author Organization [facility] David lt Address [address] [place] [address]- Care Team Providers Care Portfolio Specialist Name Role Phone Miles OTOOLE, Bernie Hardy Primary Care Physician [phone] [place] [facility] Date(s): 12/19/21 - 01/18/22 [facility] Adult [address] [place] [address]- Allergies, Adverse Reactions, Alerts Substance Reaction Severity [...] (oldterm) 8 03/14/09 Given 1Result Comment: [02/13/2018] [id number] 2Result Comment: [02/08/2017] [facility] [id number] 317 02 3Result Comment: [01/24/2013] ORDERRED BY GINA GAINES MD 4Result Comment: [09/19/2017] [id number] 5Admin Note: vis given 6Admin Note: BIOMEDICAL [...] Refills, Soft Stop, 11/01/20 15:04:00 EDT, Tablet, [facility], Partial fill upon patient request [...] Personnel Name: Bernie Aquino NP Address: [address] [facility] [place] [address]-
--- OUTSIDE RECORDS SUMMARY | 2024-01-11 13:54 | XMS_ITS | Continuity of Care Document ---
Author Organization [facility] ter Address [address] [place] [address]- Care Team Providers Care Banquet Supervisor Name Role Phone Gina Bhat MD Primary Care Physician [facility]): 04[facility]20 - 06/02/20 [facility] [address] [place] [id number] Attending Physician: Chris Rosenbaum MD Admitting Physician: Chris Rosenbaum MD Referring Physician: Chris Rosenbaum MD Allergies, Adverse Reactions, [...] (oldterm) 8 03/14/09 Given 1Result Comment: [02/13/2018] [id number] 2Result Comment: [02/08/2017] [facility] [id number] 317 02 3Result Comment: [01/24/2013] ORDERRED BY GINA BHAT MD 4Result Comment: [09/19/2017] [id number] 5Admin Note: vis given 6Admin Note: BIOMEDICAL [...] EDT, Route to Pharmacy Electronically, [facility], 163, cm, 10/01/19 13:40:00 EDT, [...] Maintenance, 07/20/19 23:41:00 EDT, Tablet, [facility], 163, cm, 07/11/19 11:24:00 EST, Height, 82.6, kg, 05/24/18 7:14:00EST, Dry Weight Start Date: 07/20/19 Status: Ordered lisinopril 2.5 mg oral tablet 2.5 mg, 1, tablet, By Mouth, Daily, # 30 tablet, Refills 11, Tot. Refills 11, Maintenance, 10/02/2013:10:00 EDT, Route to Pharmacy Electronically, [facility], 163, cm, 10/01/19 13:40:00 EDT, [...] Refills, Maintenance, 04/05/20 11:00:00 EST, [facility], 163, cm, 01/16/20 10:48:00 EDT, [...] Requisition Start Date: 05/19/16 Status: Ordered Pen Lucas, 31 G x 5 mm BD Ultra Fine III See Instructions, # 150 each, Refills 6, Tot. Refills 6, Maintenance, for use 4x daily with Lantus and humalog insulin E11.65, 06/24/18 10:09:38 EST, Compound Start Date: 06/24/18 Status: Ordered Pen Lucas, 31 G x 5 mm BD Ultra [...] 05/02/20 21:20:00 EST, Route to Pharmacy Electronically, [facility], 163, cm, 01/16/20 10:48:00 EDT, [...]
[2024-01-11 13:55] LABS: Alanine Aminotransferase 33 U/L (0-31); Albumin Level 4.2 g/dL (3.5-5.0); Alkaline Phosphatase 206 U/L (39-117); Anion Gap 12 (12-20); Aspartate Amino Transferase 25 U/L (5-31); Beta-Hydroxybutyrate 0.07 mmol/L (0.02-0.27); Bilirubin Total 0.2 mg/dL (0.0-1.0); Blood Urea Nitrogen 15 mg/dL (9-16); Calcium 9.6 mg/dL (8.4-10.2); Carbon Dioxide 18 mmol/L (22-29); Chloride 108 mmol/L (96-108); Creatinine Clr Calc Pharmacy 64.1; Estimated Glomerular Filt Rate 54; Glucose Random 242 mg/dL (60-115); Potassium 3.5 mmol/L (3.3-5.1); Sodium 134 mmol/L (135-145); Total Protein 7.4 g/dL (6.5-8.0)
--- OUTSIDE RECORDS SUMMARY | 2024-01-11 13:55 | XMS_ITS | Continuity of Care Document ---
Author Organization [facility] David lt Address [address] [place] [address]- Care Team Providers Care Customer Service Operator Name Role Phone Miles OTOOLE, Bernie Hardy Primary Care Physician [phone] [facility] Date(s): 12/20/21 - 01/19/22 [facility] Adult [address] [place] [address]- Allergies, Adverse Reactions, Alerts Substance Reaction Severity [...] (oldterm) 8 03/14/09 Given 1Result Comment: [02/13/2018] [id number] 2Result Comment: [02/08/2017] [facility] [id number] 317 02 3Result Comment: [01/24/2013] ORDERRED BY GINA GAINES MD 4Result Comment: [09/19/2017] [id number] 5Admin Note: vis given 6Admin Note: BIOMEDICAL [...] Refills, Soft Stop, 11/01/20 15:04:00 EDT, Tablet, [facility], Partial fill upon patient request [...] Personnel Name: Bernie Aquino NP Address: [address] [facility] [place] [address]-
--- OUTSIDE RECORDS SUMMARY | 2024-01-11 13:55 | XMS_ITS | Continuity of Care Document ---
Author Organization [facility] Juventino David lt Address [address] [place] [address]- Care Team Providers Care Soyfreeze Operator Name Role Phone Miles OTOOLE, Bernie Hardy Primary Care Physician [phone] [facility]s): 01/11/22 - 02/10/22 [facility] Adult [address] [place] [address]- Allergies, Adverse Reactions, Alerts Substance Reaction Severity [...] (oldterm) 8 03/14/09 Given 1Result Comment: [02/13/2018] [id number] 2Result Comment: [02/08/2017] [facility] [id number] 317 02 3Result Comment: [01/24/2013] ORDERRED BY GINA GAINES MD 4Result Comment: [09/19/2017] [id number] 5Admin Note: vis given 6Admin Note: BIOMEDICAL [...] Name: Miles OTOOLE, Bernie Hardy Address: Address: [address] [place] [address]
--- OUTSIDE RECORDS SUMMARY | 2024-01-11 13:55 | XMS_ITS | Continuity of Care Document ---
Author Organization [facility] David Address [address] [place] [address]- Care Team Providers Care Foot And Ankle Surgeon Name Role Phone Gina Bhat MD Primary Care Physician [facility] Date(s): 04/15/21 - 05/15/21 [facility] Adult [address] [place] [address]- Allergies, Adverse Reactions, Alerts Substance Reaction Severity [...] (oldterm) 8 03/14/09 Given 1Result Comment: [02/13/2018] [id number] 2Result Comment: [02/08/2017] [facility] [id number] 317 02 3Result Comment: [01/24/2013] ORDERRED BY GINA BHAT MD 4Result Comment: [09/19/2017] [id number] 5Admin Note: vis given 6Admin Note: BIOMEDICAL [...] EDT, Route to Pharmacy Electronically, [facility], 163,cm, 11/22/20 12:47:00 EDT, Height [...] Weight Start Date: 03/16/21 Status: Ordered Pen Marydel, 31 G x 5 mm BD Ultra Fine III See Instructions, # 150 each, Refills 6, Tot. Refills 6, Maintenance, for use 4x daily with Lantus and humalog insulin E11.65, 06/24/18 10:09:38 EST, Compound Start Date: 06/24/18 Status: Ordered Pen Marydel, 31 G x 5 mm BD Ultra [...]
--- OUTSIDE RECORDS SUMMARY | 2024-01-11 13:55 | XMS_ITS | Continuity of Care Document ---
Author Organization [facility] Juventino David Address [address] [place] [address]- Care Team Providers Care Turpentine Distiller Name Role Phone Miles OTOOLE, Bernie Hardy Primary Care Physician [phone] Encounter [facility] Date(s): 09/11/23 - 10/11/23 [facility] [place] Adult [address] [place] [address]- Allergies, Adverse Reactions, Alerts Substance Reaction Severity [...] (oldterm) 8 03/14/09 Given 1Result Comment: [09/19/2017] [id number] 2Result Comment: [02/13/2018] [id number] 3Result Comment: [02/08/2017] [facility] [id number] 317 02 4Result Comment: [01/24/2013] ORDERRED BY [...] EST, Route to Pharmacy Electronically, [facility], 163, cm, 03/07/23 8:42:00 EDT, [...] 12/01/20 15:40:00 EDT, Route to Pharmacy Electronically, [facility], 163,cm, 11/22/20 12:47:00 EDT, Height [...] Refills, Maintenance, 04/23/23 11:08:00 EST, [facility], 163, cm, 03/07/23 8:42:00 EDT, Height, 76.2, kg, 01/06/22 8:38:00 EDT, Dry Weight Start Date: 04/23/23 Status: Ordered montelukast 10 mg oral tablet 1, tablet, By Mouth, Daily in PM, # 90 tablet, Refills 1, Tot. Refills 1, Maintenance, 10/01/23 18:42:00 EDT, Route to Pharmacy Electronically, [facility], 163, cm, 09/06/23 10:02:00 EDT, [...] Member Role: Lifetime Consulting Physician Address: Address: [address] [place] [address] [address] [place] [address]- Name: Oz SHERWOOD, Lore Position: [facility] RN Member Role: Primary Care Nurse Name: Miles OTOOLE, Bernie Hardy Position: [facility] PCO Associate Professional Member Role: PCP Address: Address: [address] [place] [address]- [place] Name: Gregg Hardy MD Position: [facility] Pulmonary MD Member Role: Lifetime Consulting Physician Address: Address: [address] [place] [address]- Care Team Related Persons Name: ONDINA SINGLETARY Address: home [address] [place] [address] Name: BLAIRE JACOB Address: home [address] [place] [address]
--- OUTSIDE RECORDS SUMMARY | 2024-01-11 13:55 | XMS_ITS | Continuity of Care Document ---
Author Organization [facility] David lt Address [address] [place] [address]- Care Team Providers Care Impregnator And Drier Name Role Phone Miles OTOOLE, Bernie Hardy Primary Care Physician [phone] Encounter [facility] Date(s): 06/27/22 - 07/27/22 [facility] Adult [address] [place] [address]- Attending Physician: Elda Vincent NP Referring Physician: Miles OTOOLE, Bernie Hardy Allergies, [...] (oldterm) 8 03/14/09 Given 1Result Comment: [09/19/2017] [id number] 2Result Comment: [02/13/2018] [id number] 3Result Comment: [02/08/2017] [facility] [id number] 317 02 4Result Comment: [01/24/2013] ORDERRED BY [...] EST, Route to Pharmacy Electronically, [facility], 163, cm, 04/04/22 7:05:00 EST, [...] 12/01/20 15:40:00 EDT, Route to Pharmacy Electronically, [facility], 163,cm, 11/22/20 12:47:00 EDT, Height [...] 0 Refills, Maintenance, 09/02/21 10:08:00EDT, [facility], Partial fill upon patient request if the prescription is for a schedule II opioid drug., 163, cm, 08/29/21 11:01:00 EDT,... Start Date: 09/02/21 Status: Ordered ondansetron 8 mg oral tablet See Instructions, TAKE 1 TABLET BY MOUTH 3 TIMES A DAY NEEDED FOR NAUSEA AND VOMITING, # 30 tablet, 0 Refills, [facility], 163, cm, 06/07/21 14:40:00 [...] Role: Lifetime Consulting Physician Address: Address: [address] [place] [address], [address] [place] [address]- [place] Name: Oz SHERWOOD, Lore Position: [facility] RN Member Role: Primary Care Nurse Name: Miles OTOOLE, Bernie Hardy Position: [facility] PCO Associate Professional Member Role: PCP Address: Address: [address] [place] [address]- [place] Name: Gregg Hardy MD Position: [facility] Pulmonary MD Member Role: Lifetime Consulting Physician Address: Address: [address] [place] [address]- Care Team Related Persons Name: MERRITT SINGLETARY Address: home [address] [place] [address] Name: BLAIRE JACOB Address: home [address] [place] [address]
--- OUTSIDE RECORDS SUMMARY | 2024-01-11 13:55 | XMS_ITS | Continuity of Care Document ---
Author Organization [facility] David lt Address [address] [place] [address]- Care Team Providers Care Electrician Underground Name Role Phone Miles OTOOLE, Bernie Hardy Primary Care Physician [phone] [facility] [facility] Date(s): 12/15/22 - 01/14/23 [facility] Adult [address] [place] [address]- Allergies, Adverse Reactions, Alerts Substance Reaction Severity Status azithromycin 1 increases sx's Active Reglan double vision Active NSAIDs Active morphine vomiting Active Flonase [...] (oldterm) 8 03/14/09 Given 1Result Comment: [09/19/2017] [id number] 2Result Comment: [02/13/2018] [id number] 3Result Comment: [02/08/2017] [facility] [id number] 317 02 4Result Comment: [01/24/2013] ORDERRED BY [...] 05/25/22 6:49:00 EST, Route to Pharmacy Electronically, [facility], 163, cm, 04/04/22 7:05:00 EST, [...] 12/01/20 15:40:00 EDT, Route to Pharmacy Electronically, [facility], 163,cm, 11/22/20 12:47:00 EDT, Height [...] tablet, Refills 5, Maintenance, 10/01/22 10:34:00 EDT, [facility], [facility] [...] Member Role: Lifetime Consulting Physician Address: Address: [address] [place] [address], [facility] [address] [place] [address]- Name: Lore Clinton RN Position: [facility] RN Member Role: Primary Care Nurse Name: Bernie Aquino NP Position: [facility] PCO Associate Professional Member Role: PCP Address: Address: [address] [place] [address]- [place] Name: Gregg Hardy MD Position: [facility] Pulmonary MD Member Role: Lifetime Consulting Physician Address: Address: [address] [place] [address]- Care Team Related Persons Name: ONDINA SINGLETARY Address: home [address] [place] [address] Name: BLAIRE JACOB Address: home [address] [place] [address]
--- OUTSIDE RECORDS SUMMARY | 2024-01-11 13:55 | XMS_ITS | Continuity of Care Document ---
Author Organization [facility] Juventino David Address [address] [place] [address]- Care Team Providers Care Director Of Radiology Name Role Phone Gina Bhat MD Primary Care Physician [facility]counter [facility] Date(s): 10/28/20 - 11/27/20 [facility] Adult [address] [place] [address]- Allergies, Adverse Reactions, Alerts Substance Reaction Severity [...] (oldterm) 8 03/14/09 Given 1Result Comment: [02/13/2018] [id number] 2Result Comment: [02/08/2017] [facility] [id number] 317 02 3Result Comment: [01/24/2013] ORDERRED BY GINA BHAT MD 4Result Comment: [09/19/2017] [id number] 5Admin Note: vis given 6Admin Note: BIOMEDICAL [...] Refills, Soft Stop, 11/01/20 15:04:00 EDT, Tablet, [facility], Partial fill upon patient request [...] Maintenance, 10/26/20 11:52:00EDT, Route to Pharmacy Electronically, [facility], 163, cm, 09/23/20 9:42:00 [...] tablet, 5 Refills, Maintenance, 10/04/20 11:38:00 EDT, [facility], 163, cm, 09/23/20 9:42:00 EDT, [...] Weight Start Date: 10/01/19 Status: Ordered Pen [place], 31 G x 5 mm BD Ultra Fine III See Instructions, # 150 each, Refills 6, Tot. Refills 6, Maintenance, for use 4x daily with Lantus and humalog insulin E11.65, 06/24/18 10:09:38 EST, Compound Start Date: 06/24/18 Status: Ordered Pen [place], 31 G x 5 mm BD Ultra [...] 07/26/20 10:28:00 EDT, Route to Pharmacy Electronically, [facility], 163, cm, 07/26/20 8:40:00 EDT, Height Start Date: 07/26/20 Status: Ordered SUMAtriptan 100 mg oral tablet 1 tablet, By Mouth, Daily, PRN NEEDED FOR MIGRAINE, MAY REPEAT DOSE IN 2 HOURS IF NEEDED, # 9 tablet, 11 Refills, Soft Stop, 05/10/20 14:37:00 EST, [facility], 163, cm, 01/16/20 10:48:00 EDT, Height, 82.6, kg, 05/24/18 7:14:00 ESTDr... Start Date: 05/10/20 Status: Ordered topiramate 50 mg oral tablet See Instructions, 1 tablet in morning, 3 tablets at bedtime, # 120 tablet, 5 Refills, Maintenance, 07/06/20 10:04:00 EST, [facility], 163, cm, 05/13/20 9:12:00 EST, Height Start Date: 07/06/20 Status: Ordered Trulicity Pen 0.75 mg/0.5 mL subcutaneous solution 0.5 mL = 0.75 mg, Subcutaneous Injection, Every week, rotate injection sites, # 2 mL, 5 Refills, Maintenance, 11/01/20 14:54:00 EDT, Solution, [facility], Partial fill upon patient request [...]
--- OUTSIDE RECORDS SUMMARY | 2024-01-11 13:55 | XMS_ITS | Continuity of Care Document ---
Author Organization [facility] David lt Address [address] [place] [address]- Care Team Providers Care Factory Hand Name Role Phone Perlita CHAIDEZ, Gina Smith Primary Care Physician Encounter [facility] Date(s): 12/01/20 - 12/08/20 [facility] Adult [address] [place] [address]- Attending Physician: Ondina CHAIDEZ, Jonathan Flores Allergies, Adverse [...] (oldterm) 8 03/14/09 Given 1Result Comment: [02/13/2018] [id number] 2Result Comment: [02/08/2017] [facility] [id number] 317 02 3Result Comment: [01/24/2013] ORDERRED BY GINA GAINES MD 4Result Comment: [09/19/2017] [id number] 5Admin Note: vis given 6Admin Note: BIOMEDICAL [...] Refills, Soft Stop, 11/01/20 15:04:00 EDT, Tablet, [facility], Partial fill upon patient request [...] Maintenance, 10/26/20 11:52:00EDT, Route to Pharmacy Electronically, [facility], 163, cm, 09/23/20 9:42:00 EDT,Height [...] Refills, Maintenance, 10/04/20 11:38:00 EDT, [facility], 163, cm, 09/23/20 9:42:00 EDT, [...] Weight Start Date: 10/01/19 Status: Ordered Pen [place], 31 G x 5 mm BD Ultra Fine III See Instructions, # 150 each, Refills 6, Tot. Refills 6, Maintenance, for use 4x daily with Lantus and humalog insulin E11.65, 06/24/18 10:09:38 EST, Compound Start Date: 06/24/18 Status: Ordered Pen [place], 31 G x 5 mm BD Ultra [...] 07/26/20 10:28:00 EDT, Route to Pharmacy Electronically, [facility], 163, cm, 07/26/20 8:40:00 EDT, Height Start Date: 07/26/20 Status: Ordered SUMAtriptan 100 mg oral tablet 1 tablet, By Mouth, Daily, PRN NEEDED FOR MIGRAINE, MAY REPEAT DOSE IN 2 HOURS IF NEEDED, # 9 tablet, 11 Refills, Soft Stop, 05/10/20 14:37:00 EST, [facility], 163, cm, 01/16/20 10:48:00 EDT, Height, 82.6, kg, 05/24/18 7:14:00 EST, . Start Date: 05/10/20 Status: Ordered topiramate 50 mg oral tablet See Instructions, 1 tablet in morning, 3 tablets at bedtime, # 120 tablet, 5 Refills, Maintenance, 07/06/20 10:04:00 EST, [facility], 163, cm, 05/13/20 9:12:00 EST, Height Start Date: 07/06/20 Status: Ordered Trulicity Pen 0.75 mg/0.5 mL subcutaneous solution 0.5 mL = 0.75 mg, Subcutaneous Injection, Every week, rotate injection sites, # 2 mL, 5 Refills, Maintenance, 11/01/20 14:54:00 EDT, Solution, [facility], Partial fill upon patient [...]
--- OUTSIDE RECORDS SUMMARY | 2024-01-11 13:55 | XMS_ITS | Continuity of Care Document ---
Author Organization [facility] Juventino David lt Address [address] [place] [address]- Care Team Providers Care Operations Research Analyst Name Role Phone Gina Bhat MD Primary Care Physician [phone] Encounter [facility] Date(s): 06/04/19 - 06/11/19 [facility] Adult [address] [place] [address]- [facility] Encounter Diagnosis Sinusitis(Discharge Diagnosis) - 06/04/19 Attending Physician: Ondina CHAIDEZ, Jonathan Flores Allergies, [...] (oldterm) 8 03/14/09 Given 1Result Comment: [02/13/2018] [id number] 2Result Comment: [02/08/2017] [facility] [id number] 317 02 3Result Comment: [01/24/2013] ORDERRED BY GINA BHAT MD 4Result Comment: [09/19/2017] [id number] 5Admin Note: vis given 6Admin Note: BIOMEDICAL [...] 07/24/18 12:13:57 EDT, Route to Pharmacy Electronically, [id number], [facility] Start Date: 07/24/18 Status: [...] 01/06/19 11:51:55 EDT, Route to Pharmacy Electronically, [id number], [facility] Start Date: 01/06/19 Status: Ordered [...] Soft Stop, 06/06/19 10:53:00 EST, Tablet[facility], 163, cm, 06/04/19 8:19:00 EST, Height, 82.6, kg, 05/24/18 7:14:00 EST, Dry Weight Start Date: 06/06/19 Status: Ordered folic acid 1 mg oral tablet 4 mg, 4, tablet, By Mouth, Daily, # 120 tablet, Refills 5, Tot. Refills 5, Maintenance, 05/22/19 16:08:00 EST, Route to Pharmacy Electronically, [facility], Patient prescribed increased dose secondary [...] Refills, Maintenance, Tablet, Route to Pharmacy Electronically, [id number], [facility] Start Date: 07/31/18 Status: Ordered lisinopril 2.5 mg oral tablet 2.5 mg, 1, tablet, By Mouth, Daily, # 30 tablet, Refills 11, Tot. Refills 11, Maintenance, 10/10/1915:45:18 EDT, Route to Pharmacy Electronically, [id number], [facility] Start Date: [...] Requisition Start Date: 05/19/16 Status: Ordered Pen [place], 31 G x 5 mm BD Ultra [...] 05/30/19 11:43:00 EST, Route to Pharmacy Electronically, [facility], 163, cm, 05/30/19 11:08:00 EST, Height, 82.6, kg, 05/24/18 7:14:00 EST,... Start Date: 05/30/19 Status: Ordered SUMAtriptan 100 mg oral tablet 1 tablet, By Mouth, Daily, PRN NEEDED FOR MIGRAINE, # 9 tablet, Refills 11 Tot. Refills 11, MAY REPEAT DOSE IN 2 HOURS IF NEEDED, [facility] Start Date: 04/14/19 Status: Ordered [...] Clini kamron Service Informant Sinusitis Discharge Diagnosis 06/04/19 Vital Signs Most recent to oldest [Reference Range]: 1 Height 163 cm (06/04/19 8:19 AM) Weight 81 kg (06/04/19 8:19 AM) Oxygen Saturation [94-100 %] 97 % (06/04/19 8:19 AM) Pulse Rate [55-90 bpm] 100 bpm *H* (06/04/19 8:19 AM) Body Mass Index [18.5-24.99] 30.49 *>HHI* (06/04/19 8:19 AM) Blood Pressure [90-138/55-84 mm Hg] 130/ 70mm Hg (06/04/19 8:19 AM) Respiratory Rate [16-30 br/min] 18 br/mi n (06/04/19 8:19 AM) Temperature [96.8-100.4 DegF] 98.5 DegF (06/04/19 8:19 AM) Mode of Delivery (Oxygen) Room air (06/04/19 8:19 AM) Blood pressure sites Arm, left (06/04/19 8:19 AM) Temperature Route Temporal (06/04/19 8:19 AM) Weight Obtained Via Standing scale (06/04/19 8:19 AM) Social History Social History Type Response Smoking Status Never smoker entered on: 01/21/18 Sex
--- OUTSIDE RECORDS SUMMARY | 2024-01-11 13:55 | XMS_ITS | Continuity of Care Document ---
Author Organization [facility] Address [address] [place] [address] [address] [place] [address]- Care Team Providers Care Electric Installer Name Role Phone Miles OTOOLE, Bernie Hardy Primary Care Physician [phone] Encounter [facility] Date(s): 10/22/21 - 02/26/22 [facility] [address] [place], [place] [address] Attending Physician: Jamie Lopez Referring Physician: Bernie Aquino NP Allergies, Adverse [...] (oldterm) 8 03/14/09 Given 1Result Comment: [02/13/2018] [id number] 2Result Comment: [02/08/2017] [facility] [id number] 317 02 3Result Comment: [01/24/2013] ORDERRED BY GINA GAINES MD 4Result Comment: [09/19/2017] [id number] 5Admin Note: vis given 6Admin Note: BIOMEDICAL [...] EDT, Route to Pharmacy Electronically, [facility], 163,cm, 11/22/20 12:47:00 EDT, Height [...] Name: Miles OTOOLE, Bernie Hardy Address: Address: [address] [place] [address]
--- OUTSIDE RECORDS SUMMARY | 2024-01-11 13:55 | XMS_ITS | Continuity of Care Document ---
Author Organization [facility] Juventino David lt Address [address] [place] [address]- Care Team Providers Care Commutator Repairer Name Role Phone Miles OTOOLE, Bernie Hardy Primary Care Physician Encounter [facility] Date(s): 06/13/22 - 07/13/22 [facility] Adult [address] [place] [address]- Allergies, Adverse Reactions, Alerts Substance Reaction Severity Status azithromycin 1 increases sx's Active Flonase rhinitis Active NSAIDs Active morphine vomiting Active Augmentin [...] (oldterm) 8 03/14/09 Given 1Result Comment: [09/19/2017] [id number] 2Result Comment: [02/13/2018] [id number] 3Result Comment: [02/08/2017] [facility] [id number] 317 02 4Result Comment: [01/24/2013] ORDERRED BY [...] 05/25/22 6:49:00 EST, Route to Pharmacy Electronically, [facility], 163, cm, 04/04/22 7:05:00 EST, [...] 12/01/20 15:40:00 EDT, Route to Pharmacy Electronically, [facility], 163,cm, 11/22/20 12:47:00 [...] Personnel Name: Marisa CHAIDEZ, Neto Osorio Position: [facility] Renal MD Member Role: Lifetime Consulting Physician Address: Address: [address] [place] [address], [address] [place] [address]- [place] Name: Lore Clinton RN Position: [facility] RN Member Role: Primary Care Nurse Name: Miles OTOOLE, Bernie Hardy Position: [facility] PCO Associate Professional Member Role: PCP Address: Address: [address] [place] [address]- [place] Name: Gregg Hardy MD Position: [facility] Pulmonary MD Member Role: Lifetime Consulting Physician Address: Address: [address] [place] [address]- Care Team Related Persons Name: MERRITT SINGLETARY Address: home [address] [place] [address] Name: BLAIRE JACOB Address: home [address] [place] [address]
--- OUTSIDE RECORDS SUMMARY | 2024-01-11 13:55 | XMS_ITS | Continuity of Care Document ---
Author Organization [facility] Address [address] [place] [address] [address] [place] [address]- Care Team Providers Care Boat Garnisher Name Role Phone Miles OTOOLE, Bernie Hardy Primary Care Physician [facility]counter [facility] Date(s): 02/01/22 - 02/08/22 [facility] [address] [place] [address]- Attending Physician: Gisel Solis MD Referring Physician: Bernie Aquino NP Allergies, [...] (oldterm) 8 03/14/09 Given 1Result Comment: [02/13/2018] [id number] 2Result Comment: [02/08/2017] [facility] [id number] 317 02 3Result Comment: [01/24/2013] ORDERRED BY GINA GAINES MD 4Result Comment: [09/19/2017] [id number] 5Admin Note: vis given 6Admin Note: BIOMEDICAL [...] EDT, Route to Pharmacy Electronically, [facility], 163,cm, 11/22/20 12:47:00 EDT, Height Start Date: 12/01/20 Status: Ordered EpiPen 2-Juvenal = 0.3 mg, Intramuscular, Once, 0 Refills, Maintenance Start Date: 01/31/11 Status: Ordered Fioricet oral capsule 1 capsule, By Mouth, Once, PRN as needed, repeat in 2 hours if headache is still present, # 30 capsule, 0 Refills, Soft Stop, 05/13/20 10:25:00 EST, Capsule, [facility], 1 capsule By Mouth Once,PRN:as needed,Instr:repeat in 2 hours if he... Start Date: 05/13/20 Status: Ordered fluconazole 150 mg oral tablet 1 tablet = 150 mg, By Mouth, Once, epeat dose if still having symptoms in 72 hours, # 2 tablet, 0 Refills, Soft Stop, 11/01/20 15:04:00 EDT, Tablet, [facility], Partial fill upon patient request [...] Trulicity Pen 0.75 mg/0.5 mL subcutaneous solution See Instructions, INJECT .5ML UNDER THE SKIN EVERY WEEK. ROTATE INJECTION SITES, # 2 mL, 5 Refills,Maintenance, 02/06/22 18:14:00 EDT, [facility], 163, cm, 01/06/22 16:05:00 EDT, Height, 76.2, kg, 01/06/22 8:38:00 EDT, Dry Weight Start Date: 02/06/22 Status: Ordered Tylenol 8 Hour Caplet 650 [...] Active Osteoarthritis of hips, bilateral Confirmed Active Type 2 diabetes mellitus Confirmed Active Dyshidrotic eczema Confirmed Active Social History Social History Type Response Smoking Status Never smoker entered on: 05/12/13 Sex Patient Care team information Personnel Name: Bernie Aquino NP Address: Address: [address] [place] [address]-
--- OUTSIDE RECORDS SUMMARY | 2024-01-11 13:55 | XMS_ITS | Continuity of Care Document ---
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 Type 2 diabetes mellitus(Discharge Diagnosis) - 07/26/20 Attending Physician: Gina Bhat MD Allergies, Adverse [...] (oldterm) 8 03/14/09 Given 1Result Comment: [02/13/2018] [id number] 2Result Comment: [02/08/2017] [facility] [id number] 317 02 3Result Comment: [01/24/2013] ORDERRED BY GINA BHAT MD 4Result Comment: [09/19/2017] [id number] 5Admin Note: vis given 6Admin Note: BIOMEDICAL [...] Refills, Maintenance, 04/05/20 11:00:00 EST, [facility], 163, [...] Weight Start Date: 10/01/19 Status: Ordered Pen [place], 31 G x 5 mm BD Ultra Fine III See Instructions, # 150 each, Refills 6, Tot. 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) Active Osteoarthritis of hips, bilateral(Confirmed) Active Recurrent acute sinusitis(Confirmed) Active Type 2 diabetes mellitus(Confirmed) Active Dyshidrotic eczema(Confirmed) Active Diagnosis Diagnosis Type Effective Dates Health Status Clinical Service Informant Allergic rhinitis Discharge Diagnosis 07/26/20 Asthma - severe Discharge Diagnosis 07/26/20 Bipolar disorder Discharge Diagnosis 07/26/20 Congenital Hypogammaglobulinemia Discharge Diagnosis 07/26/20 FMF (familial Mediterranean fever) Discharge Diagnosis 07/26/20 Hyper-IgE syndrome Discharge Diagnosis 07/26/20 Type 2 diabetes mellitus Discharge Diagnosis 07/26/20 Vital Signs Most recent to oldest [Reference Range]: 1 Height 163 cm (07/26/20 8:40 AM) Weight 78.6 kg (07/26/20 8:40 AM) Body Mass Index [18.5-24.99] 29.58 *H* (07/26/20 8:40 AM) Social History Social History Type Response Smoking Status Never smoker entered on: 01/21/18 Sex
--- OUTSIDE RECORDS SUMMARY | 2024-01-11 13:56 | XMS_ITS | Continuity of Care Document ---
Author Organization [facility] [place] David lt Address [address] [place] [address]- Care Team Providers Care Layout Technician Name Role Phone Gina Bhat MD Primary Care Physician [facility]counter [facility] Date(s): 02/23/21 - 03/25/21 [facility] Adult [address] [place] [address]- Allergies, Adverse Reactions, Alerts Substance Reaction Severity [...] (oldterm) 8 03/14/09 Given 1Result Comment: [02/13/2018] [id number] 2Result Comment: [02/08/2017] [facility] [place] [id number] 317 02 3Result Comment: [01/24/2013] ORDERRED BY GINA BHAT MD 4Result Comment: [09/19/2017] [id number] 5Admin Note: vis given 6Admin Note: BIOMEDICAL [...] 11:52:00EDT, Route to Pharmacy Electronically, [facility], 163, cm, 09/23/20 9:42:00 EDT,Height [...] Refills, Maintenance, 10/04/20 11:38:00 EDT, [facility], 163, cm, 09/23/20 9:42:00 EDT, [...] Refills, Maintenance, 02/10/21 15:07:00 EDT, [facility], 163, cm, 02/10/21 14:31:00 EDT, [...] Weight Start Date: 03/16/21 Status: Ordered Pen [place], 31 G x 5 mm BD Ultra Fine III See Instructions, # 150 each, Refills 6, Tot. Refills 6, Maintenance, for use 4x daily with Lantus and humalog insulin E11.65, 06/24/18 10:09:38 EST, Compound Start Date: 06/24/18 Status: Ordered Pen [place], 31 G x 5 mm BD Ultra [...] 02/23/21 16:10:00 EDT, Route to Pharmacy Electronically, [facility], Rx resent from 07/26/20, 163, cm, 02/21/21 15:42:00 EDT, Height, 81, kg, 09... Start Date: 02/23/21 Status: Ordered SUMAtriptan 100 mg oral tablet 1 tablet, By Mouth, Daily, PRN NEEDED FOR MIGRAINE, MAY REPEAT DOSE IN 2 HOURS IF NEEDED, # 9 tablet, 11 Refills, Soft Stop, 05/10/20 14:37:00 EST, [facility], 163, cm, 01/16/20 10:48:00 EDT, Height, 82.6, kg, 05/24/18 7:14:00 ESTDr... Start Date: 05/10/20 Status: Ordered topiramate 50 mg oral tablet See Instructions, 1 tablet in morning, 3 tablets at bedtime, # 120 tablet, 5 Refills, Maintenance, 01/21/21 15:35:00 EDT, [facility], 163, cm, 11/22/20 12:47:00 EDT, [...]
--- OUTSIDE RECORDS SUMMARY | 2024-01-11 13:56 | XMS_ITS | Continuity of Care Document ---
Author Organization [facility] [place] David lt Address [address] [place] [address]- Care Team Providers Care Windows Server Engineer Name Role Phone Miles OTOOLE, Bernie Hardy Primary Care Physician [phone] [place] [facility] [place](s[place] 12/12/21 - 01/11/22 [facility] Adult [address] [place] [address]- Allergies, Adverse Reactions, Alerts Substance Reaction Severity [...] (oldterm) 8 03/14/09 Given 1Result Comment: [02/13/2018] [id number] 2Result Comment: [02/08/2017] [facility] [id number] 317 02 3Result Comment: [01/24/2013] ORDERRED BY GINA GAINES MD 4Result Comment: [09/19/2017] [id number] 5Admin Note: vis given 6Admin Note: BIOMEDICAL [...] 01/14/22 20:00:00 EDT, 01/07/22 11:21:00 EDT, Tablet, [facility], Partial fill upon patient r... Start Date: 01/07/22 Stop Date: 01/14/22 Status: Ordered EpiPen 2-Juvenal = 0.3 mg, Intramuscular, Once, 0 Refills, Maintenance Start Date: 01/31/11 Status: Ordered Fioricet oral capsule 1 capsule, By Mouth, Once, PRN as needed, repeat in 2 hours if headache is still present, # 30 capsule, 0 Refills, Soft Stop, 05/13/20 10:25:00 EST, Capsule, [facility], 1 capsule By Mouth Once,PRN:as needed,Instr:repeat in 2 hours if he... Start Date: 05/13/20 Status: Ordered fluconazole 150 mg oral tablet 1 tablet = 150 mg, By Mouth, Once, epeat dose if still having symptoms in 72 hours, # 2 tablet, 0 Refills, Soft Stop, 11/01/20 15:04:00 EDT, Tablet, [facility], Partial fill upon patient request [...] Name: Bernie Aquino NP Address: [address] [facility] [place] [address]-
--- OUTSIDE RECORDS SUMMARY | 2024-01-11 13:56 | XMS_ITS | Continuity of Care Document ---
Author Organization [facility] David Address [address] [place] [address]- Care Team Providers Care Auto Dismantler Name Role Phone Miles OTOOLE, Bernie Hardy Primary Care Physician [place] [facility] [place] Adult [address] [place] [address]- Encounter Diagnosis Migraine(Discharge Diagnosis) - 07/13/21 Bipolar disorder(Discharge Diagnosis) - 07/14/21 Asthma - severe(Discharge Diagnosis) - 07/14/21 Congenital Hypogammaglobulinemia(Discharge Diagnosis) - 07/14/21 FMF (familial Mediterranean fever)(Discharge Diagnosis) - 07/14/21 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 Start Date: 02/23/21 Status: Ordered topiramate 50 mg oral tablet See Instructions, TAKE 1 TABLET IN THE MORNING AND 3 TABLETS AT BEDTIME., # 120 tablet, 5 Refills, [facility], 163, cm, 06/13/21 9:32:00 EST, [...] 5 Refills, Maintenance, 05/04/21 16:41:00 EST, Solution, [facility], Partial fill upon patient request [...] Effective Dates Health Status Clinical Service Informant Migraine Discharge Diagnosis 07/13/21 Bipolar disorder Discharge Diagnosis 07/14/21 Asthma - severe Discharge Diagnosis 07/14/21 Congenital Hypogammaglobulinemia Discharge Diagnosis 07/14/21 FMF (familial Mediterranean fever) Discharge Diagnosis 07/14/21 Hyper-IgE syndrome Discharge Diagnosis 07/14/21 Type 2 diabetes mellitus Discharge Diagnosis 07/14/21 Vital Signs Most recent to oldest [Reference Range]: 1 Height 163 cm (07/13/21 11:43 AM) Weight 78.4 kg (07/13/21 11:43 AM) Oxygen Saturation [94-100 %] 98 % (07/13/21 11:43 AM) Pulse Rate [55-90 bpm] 86 bpm (07/13/21 11:43 AM) Body Mass Index [18.5-24.99] 29.51 *H* (07/13/21 11:43 AM) Blood Pressure [90-138/55-84 mm Hg] 101/ 66mm Hg (07/13/21 11:43 AM) Temperature [96.8-100.4 DegF] 98.7 DegF (07/13/21 11:43 AM) Blood pressure sites Arm, left (07/13/21 11:43 AM) Temperature Route Oral (07/13/21 11:43 AM) Weight Obtained Via Standing scale (07/13/21 11:43 AM) Social History Social History Type Response Smoking Status Never smoker entered on: 01/21/18 Sex
--- OUTSIDE RECORDS SUMMARY | 2024-01-11 13:56 | XMS_ITS | Continuity of Care Document ---
Author Organization [facility] David Address [address] [place] [address]- Care Team Providers Care Brim Flexer Name Role Phone Miles OTOOLE, Bernie Hardy Primary Care Physician [phone] [place] [facility] [place] 10/07/21 [facility] Adult [address] [place] [address]- Attending Physician: Admtr, Dillan8 Admitting Physician: Admtr, Dillan8 Referring Physician: Admtr, Ar8 Allergies, Adverse Reactions, Alerts Substance Reaction Severity Status azithromycin 1 Active morphine vomiting Active Augmentin 2 Active Reglan double vision Active Demerol HCl vomiting Active Flonase Active Adhesive Bandage Active Cats Active 1Diarrhea [...] (oldterm) 8 03/14/09 Given 1Result Comment: [02/13/2018] [id number] 2Result Comment: [02/08/2017] [facility] [id number] 317 02 3Result Comment: [01/24/2013] ORDERRED BY GINA GAINES MD 4Result Comment: [09/19/2017] [id number] 5Admin Note: vis given 6Admin Note: BIOMEDICAL [...] EDT, Route to Pharmacy Electronically, [facility], Rx resent from 07/26/20, [...]
--- OUTSIDE RECORDS SUMMARY | 2024-01-11 13:56 | XMS_ITS | Continuity of Care Document ---
Author Organization [facility] David lt Address [address] [place] [address]- Care Team Providers Care Tipple Boss Name Role Phone Miles OTOOLE, Bernie Hardy Primary Care Physician Encounter [facility] [place] Date(s): 03/20/22 - 05/04/22 [facility] Adult [address] [place] [address]- Attending Physician: Ondina CHAIDEZ, Jonathan Flores Allergies, [...] (oldterm) 8 03/14/09 Given 1Result Comment: [02/13/2018] [id number] 2Result Comment: [02/08/2017] [facility] [id number] 317 02 3Result Comment: [01/24/2013] ORDERRED BY GINA GAINES MD 4Result Comment: [09/19/2017] [id number] 5Admin Note: vis given 6Admin Note: BIOMEDICAL [...] Team Personnel Name: Neto Cunningham MD Position: [facility] Renal MD Member Role: Lifetime Consulting Physician Address: Address: [address] [place] [address], [facility] [address] [place] [address]- [place] Name: Lore Clinton RN Position: [facility] RN Member Role: Primary Care Nurse Name: Bernie Aquino NP Position: [facility] PCO Associate Professional Member Role: PCP Address: Address: [address] [place] [address]- [place] Name: Gregg Hardy MD Position: [facility] Pulmonary MD Member Role: Lifetime Consulting Physician Address: Address: [address] [place] [address]- Care Team Related Persons Name: MERRITT SINGLETARY Address: home [address] [place] [address] Name: BLAIRE JACOB Address: home [address] [place] [address]
--- OUTSIDE RECORDS SUMMARY | 2024-01-11 13:56 | XMS_ITS | Continuity of Care Document ---
Author Organization [facility] David lt Address [address] [place] [address]- Care Team Providers Care Ramp And Cargo Supervisor Name Role Phone Miles OTOOLE, Bernie Hardy Primary Care Physician [phone] [place] [facility] [place](s): 06/26/22 - 07/03/22 [facility] Adult [address] [place] [address]- Encounter Diagnosis Urinary tract infection(Discharge Diagnosis) - 06/26/22 Nephrogenic diabetes insipidus(Discharge Diagnosis) - 06/26/22 Type 2 diabetes mellitus(Discharge Diagnosis) - 06/26/22 Bipolar disorder(Discharge Diagnosis) - 06/26/22 FMF (familial Mediterranean fever)(Discharge Diagnosis) - 06/26/22 Migraine(Discharge Diagnosis) - 06/26/22 Asthma - severe(Discharge Diagnosis) - 06/26/22 Congenital Hypogammaglobulinemia(Discharge Diagnosis) - 06/26/22 Attending Physician: Not on Staff, Attending MD [...] 3 01/24/13 Gi tyree tetanus/diphtheria/pertussis, acel(Tdap) 4 5/9/18 Given tetanus/diphtheria/pertussis, acel(Tdap) 12/08/07 Given tetanus/diphtheria/pertussis, acel(Tdap) 12/08/07 Given pneumococcal 13-valent vaccine 05/13/14 Given FluLaval (oldterm) 5 01/05/12 Given FluLaval (oldterm) 6 02/16/10 Given Fluvirin (oldterm) 01/23/11 Given pneumococcal 23-valent vaccine 12/19/09 Given influ virus vac, H1N1, inactive(oldterm) 7 05/04/09 Given Influenza Virus Vaccine (oldterm) 8 03/14/09 Given 1Result Comment: [02/13/2018] [id number] 2Result Comment: [02/08/2017] [facility] [id number] 317 02 3Result Comment: [01/24/2013] ORDERRED BY GINA GAINES MD 4Result Comment: [09/19/2017] [id number] 5Admin Note: vis given 6Admin Note: BIOMEDICAL [...] Refills, Maintenance, 07/03/22 16:02:00 EST, [facility], 163, cm, 06/26/22 7:02:00 EST, [...] 05/25/22 6:49:00 EST, Route to Pharmacy Electronically, [facility], 163, cm, 04/04/22 7:05:00 EST, [...] # 120 tablet, 5 Refills, [facility], 163, cm, 06/13/21 9:32:00 EST, [...] Effective Dates Health Status Clinical Service Informant Urinary tract infection Discharge Diagnosis 06/26/22 Nephrogenic diabetes insipidus Discharge Diagnosis 06/26/22 Type 2 diabetes mellitus Discharge Diagnosis 06/26/22 Bipolar disorder Discharge Diagnosis 06/26/22 FMF (familial Mediterranean fever) Discharge Diagnosis 06/26/22 Migraine Discharge Diagnosis 06/26/22 Asthma - severe Discharge Diagnosis 06/26/22 Congenital Hypogammaglobulinemia Discharge Diagnosis 06/26/22 Vital Signs Most recent to oldest [Reference Range]: 1 Height 163 cm (06/26/22 7:02 AM) Weight 79.7 kg (06/26/22 7:02 AM) Oxygen Saturation [94-100 %] 96 % (06/26/22 7:02 AM) Pulse Rate [55-90 bpm] 102 bpm *H* (06/26/22 7:02 AM) Body Mass Index [18.5-24.99 kg/m2] 30 kg /m2 *>HHI* (06/26/22 7:02 AM) Blood Pressure [90-138/55-84 mm Hg] 125/ 75mm Hg (06/26/22 7:02 AM) Blood pressure sites Arm, right (06/26/22 7:02 AM) Weight Obtained Via Standing scale (06/26/22 7:02 AM) Social History Social History Type Response Smoking Status Never smoker entered on: 05/12/13 Sex Note * Katiuska Hernandez: PERFORM, SIGN, VERIFY Event Display: Patient Education/Instruction Authored Date: [id number] [facility] *BMP So [facility] Clinical Summary Name HEMANT LEE Age 46 Years 1975 PCP Mlies OTOOLE, Bernie Hardy PCP Visit Date 06/26/2022 06:47:00 Additional Instructions: Scheduled Appointments?? Future Appointments ?*BMP??So??[place]Adlt [address] ?Phone:??--?Fax:??-- ?Appt. Date:??09/04/2022?7:50 AM ?Scheduled Provider:??Bernie Aquino NP Follow-Up Instructions ?? Diagnosis Unspecified asthma, uncomplicated; Hereditary hypogammaglobulinemia; Bipolar disorder, unspecified;Urinary tract infection, site not specified; Nephrogenic diabetes insipidus; Type 2 diabetes mellitus without complications; Periodic fever syndromes; Migraine, unspecified, not intractable, without status migrainosus Medications: Please continue your medications until treatment [...] repeat x 1. Refills: 0. Next Dose: fluticasone/umeclidinium/vilanterol (Trelegy Ellipta) [...] oral tablet) 1.5 tabs BID. Next Dose: rimegepant (Nurtec ODT) 75 Milligram Oral once. 1 TAB EVERY OTHER DAY. Next Dose: Rizatriptan (rizatriptan 10 mg oral tablet) 1 tab(s) Oral. PRN. Next Dose: sitagliptin (Januvia 100 mg oral tablet) 1 tab(s) Oral Daily for 30 Days. replace 50mg. Refills: 6. Next Dose: Topiramate (topiramate 50 mg oral tablet) TAKE 1 TABLET IN THE MORNING AND 3 TABLETS AT BEDTIME.. Refills: 5. Next Dose: Allergy Info:?? Cats; Adhesive Bandage; Demerol HCl; Reglan; Augmentin; Flonase; morphine; azithromycin Medications Given This Visit Future Orders ?Hepatic Function Panel? Order Date:06/26/22?- Complete on or after?06/26/22 Vital Signs Height 163 cm Weight 79.7 kg BMI 30 kg/m2 Blood Pressure 125 mm Hg/75 mm Hg Temperature Pulse Rate 102 bpm Respiratory Rate 02 Sat Mode of Delivery 96 %/ You can now view a summary of your hospital visit from the comfort of your home through a free online portal called [email or web address]. [email or web address] is a website that allows you to securely view your medical information including discharge summary, medications and follow-up visits. ??You can alsosend a secure electronic message to your doctor???s office to request appointments, renew medications or just ask a question. You can enroll at [email or web address] or register during your next [...] primary care provider, you may find a [facility] provider by calling [facility] at [phone]. For information about the plan of care [...] Personnel Name: Marisa CHAIDEZ, Neto Osorio Position: [facility] Renal MD Member Role: Lifetime Consulting Physician Address: Address: [address] [place] [address], [address] [place] [address]- [place] Name: Lore Clinton RN Position: [facility] RN Member Role: Primary Care Nurse Name: Bernie Aquino NP Position: [facility] PCO Associate Professional Member Role: PCP Address: Address: [address] [place] [address]- [place] Name: Gregg Hardy MD Position: [facility] Pulmonary MD Member Role: Lifetime Consulting Physician Address: Address: [address] [place] [id number] Care Team Related Persons Name: MERRITT SINGLETARY Address: home [address] [place] [address] Name: BLAIRE JACOB Address: home [address] [place] [address]
--- OUTSIDE RECORDS SUMMARY | 2024-01-11 13:56 | XMS_ITS | Continuity of Care Document ---
Author Organization [facility] Address [address] [place] [address]- Care Team Providers Care Subscription Clerk Name Role Phone Miles OTOOLE, Bernie Hardy Primary Care Physician [phone] [facility] [place] 06[place]/22 [facility] [address] [place], [place] [address] Attending Physician: Rober CHAIDEZ, Nunu Gaytan Allergies, Adverse Reactions, Alerts Substance Reaction Severity Status azithromycin 1 increases sx's Active Flonase rhinitis Active Reglan double vision Active Cats sneezing Active morphine vomiting Active Augmentin 2 increases sx Active Demerol [...] (oldterm) 8 03/14/09 Given 1Result Comment: [02/13/2018] [id number] 2Result Comment: [02/08/2017] [facility] [id number] 317 02 3Result Comment: [01/24/2013] ORDERRED BY GINA GAINES MD 4Result Comment: [09/19/2017] [id number] 5Admin Note: vis given 6Admin Note: BIOMEDICAL [...] EST, Route to Pharmacy Electronically, [facility], 163, cm, 04/04/22 7:05:00 EST, [...] 12/01/20 15:40:00 EDT, Route to Pharmacy Electronically, [facility], 163,cm, 11/22/20 12:47:00 EDT, Height [...] Maintenance,03/17/22 6:52:00 EDT, Route to Pharmacy Electronically, [facility], Partial fill upon patient request [...] Care Team Personnel Name: Marisa CHAIDEZ, Neto Oosrio Position: [facility] Renal MD Member Role: Lifetime Consulting Physician Address: Address: [address] [place] [address], [facility] [address] [place] [address]- Name: Lore Clinton RN Position: [facility] RN Member Role: Primary Care Nurse Name: Miles OTOOLE, Bernie Hardy Position: [facility] PCO Associate Professional Member Role: PCP Address: Address: [address] [place] [address]- [place] Name: Antony CHAIDEZ, Gregg Position: [facility] Pulmonary MD Member Role: Lifetime Consulting Physician Address: Address: [address] [place] [address]- Care Team Related Persons Name: MERRITT SINGLETARY Address: home [address] [place] [address] Name: BLAIRE JACOB Address: home [address] [place] [address]
--- OUTSIDE RECORDS SUMMARY | 2024-01-11 13:56 | XMS_ITS | Continuity of Care Document ---
Author Organization [facility] ter Address [address] [place] [address]- Care Team Providers Care Workers' Compensation Hearings Officer Name Role Phone Miles OTOOLE, Bernie Hardy Primary Care Physician En[place] [facility] [place] Date(s): 03/15/22 - 04/14/[address] [address] Attending Physician: Brooklyn Shankar Admitting Physician: AdmtrBrooklyn Referring Physician: AdmtrBrooklyn Allergies, Adverse Reactions, Alerts [...] (oldterm) 8 03/14/09 Given 1Result Comment: [02/13/2018] [id number] 2Result Comment: [02/08/2017] [facility] [id number] 317 02 3Result Comment: [01/24/2013] ORDERRED BY GINA GAINES MD 4Result Comment: [09/19/2017] [id number] 5Admin Note: vis given 6Admin Note: BIOMEDICAL [...] EDT, Route to Pharmacy Electronically, [facility], 163,cm, 11/22/20 12:47:00 EDT, Height [...] Personnel Name: Marisa CHAIDEZ, Neto Osorio Position: [facility] Renal Member Role: Lifetime Consulting Physician Address: Address: [address] [place] [address], [address] [place] [address] Name: Oz SHERWOOD, Lore Position: [facility] RN Member Role: Primary Care Nurse Name: Miles OTOOLE, Bernie Hardy Position: [facility] PCO Associate Professional Member Role: PCP Address: Address: [address] [place] [address]- [place] Name: Gregg Hardy MD Position: [facility] Pulmonary MD Member Role: Lifetime Consulting Physician Address: Address: [address] [place] [address]- Care Team Related Persons Name: MERRITT SINGLETARY Address: home [address] [place] [address] Name: BLAIRE JACOB Address: home [address] [place] [address]
--- OUTSIDE RECORDS SUMMARY | 2024-01-11 13:56 | XMS_ITS | Continuity of Care Document ---
Author Organization [facility] David lt Address [address] [place] [address]- Care Team Providers Care Spike Machine Feeder Name Role Phone Gina Bhat MD Primary Care Physician Encounter [facility] Date(s): 02/21/21 - 03/23/21 [facility] Adult [address] [place] [address]- Attending Physician: AdmtrBrooklyn Admitting Physician: Admtr, Ar8 Referring Physician: Admtr, Ar8 Allergies, Adverse Reactions, Alerts Substance Reaction Severity Status azithromycin 1 Active morphine vomiting Active Augmentin 2 Active Flonase Active Reglan double vision Active [...] (oldterm) 8 03/14/09 Given 1Result Comment: [02/13/2018] [id number] 2Result Comment: [02/08/2017] [facility] [id number] 317 02 3Result Comment: [01/24/2013] ORDERRED BY GINA BHAT MD 4Result Comment: [09/19/2017] [id number] 5Admin Note: vis given 6Admin Note: BIOMEDICAL [...] 12/01/20 15:40:00 EDT, Route to Pharmacy Electronically, [facility], 163,cm, 11/22/20 12:47:00 EDT, Height Start Date: 12/01/20 Status: Ordered EpiPen 2-Juvenal = 0.3 mg, Intramuscular, Once, 0 Refills, Maintenance Start Date: 01/31/11 Status: Ordered Fioricet oral capsule 1 capsule, By Mouth, Once, PRN as needed, repeat in 2 hours if headache is still present, # 30 capsule, 0 Refills, Soft Stop, 05/13/20 10:25:00 EST, Capsule, [facility], 1 capsule By Mouth Once,PRN:as needed,Instr:repeat in 2 hours if he... Start Date: 05/13/20 Status: Ordered fluconazole 150 mg oral tablet 1 tablet = 150 mg, By Mouth, Once, epeat dose if still having symptoms in 72 hours, # 2 tablet, 0 Refills, Soft Stop, 11/01/20 15:04:00 EDT, Tablet, [facility], Partial fill upon patient request [...] Maintenance, 10/26/20 11:52:00EDT, Route to Pharmacy Electronically, [facility], 163, cm, 09/23/20 9:42:00 EDT,Height [...] Refills, Maintenance, 02/10/21 15:07:00 EDT, [facility], 163, cm, 02/10/21 14:31:00 EDT, [...] Weight Start Date: 03/16/21 Status: Ordered Pen [place], 31 G x 5 mm BD Ultra Fine III See Instructions, # 150 each, Refills 6, Tot. Refills 6, Maintenance, for use 4x daily with Lantus and humalog insulin E11.65, 06/24/18 10:09:38 EST, Compound Start Date: 06/24/18 Status: Ordered Pen [place], 31 G x 5 mm BD Ultra [...] 02/23/21 16:10:00 EDT, Route to Pharmacy Electronically, [facility], Rx resent from 07/26/20, 163, cm, 02/21/21 15:42:00 EDT, Height, 81, kg, 09... Start Date: 02/23/21 Status: Ordered SUMAtriptan 100 mg oral tablet 1 tablet, By Mouth, Daily, PRN NEEDED FOR MIGRAINE, MAY REPEAT DOSE IN 2 HOURS IF NEEDED, # 9 tablet, 11 Refills, Soft Stop, 05/10/20 14:37:00 EST, [facility], 163, cm, 01/16/20 10:48:00 EDT, Height, 82.6, kg, 05/24/18 7:14:00 ESTDr... Start Date: 05/10/20 Status: Ordered topiramate 50 mg oral tablet See Instructions, 1 tablet in morning, 3 tablets at bedtime, # 120 tablet, 5 Refills, Maintenance, 01/21/21 15:35:00 EDT, [facility], 163, cm, 11/22/20 12:47:00 EDT, [...]
--- OUTSIDE RECORDS SUMMARY | 2024-01-11 13:56 | XMS_ITS | Continuity of Care Document ---
Author Organization [facility] [place] ter Address [address] [place] [address]- Care Team Providers Care Home Appliance Installer Name Role Phone Miles OTOOLE, Bernie Hardy Primary Care Physician Encounter [facility] Date(s): 01/06/22 - 01/07/[address] [address] Discharge Disposition: A-D/C Home Attending Physician: Gisel Solis MD Admitting Physician: Gisel Solis MD Referring Physician: Gisel Solis MD Allergies, [...] (oldterm) 8 03/14/09 Given 1Result Comment: [02/13/2018] [id number] 2Result Comment: [02/08/2017] [facility] [id number] 317 02 3Result Comment: [01/24/2013] ORDERRED BY GINA GAINES MD 4Result Comment: [09/19/2017] [id number] 5Admin Note: vis given 6Admin Note: BIOMEDICAL [...] 12/01/20 15:40:00 EDT, Route to Pharmacy Electronically, [facility], 163,cm, 11/22/20 12:47:00 EDT, Height Start Date: 12/01/20 Status: Ordered Dilaudid 2 mg oral tablet 2 mg, Tablet, By Mouth, Every 4 hours, PRN for Pain , Moderate, Routine, 01/06/22 20:25:00 EDT Start Date: 01/06/22 Stop Date: 01/07/22 Status: Discontinued Dilaudid 2 mg oral tablet 1 tablet = 2 mg, By Mouth, Every 4 hours, PRN Pain , Moderate, Do not drink or driv while taking this medication, # 12 tablet, 0 Refills, Acute 01/14/22 20:00:00 EDT, 01/07/22 11:21:00 EDT, Tablet, [facility], Partial fill upon patient r... [...] Procedure Date Related Diagnosis Body Site Status Right thyroid lobectomy, uni lateral; with or without isthmusectomy 01/06/22 Co mpleted Subtotal Parathyroidectomy 01/06/22 Completed Vital Signs Most recent to oldest [Reference Range]: 1 2 3 Height 163 cm (01/06/22 4:05 PM) 163 cm (01/06/22 8:38 AM) 163 cm (01/05/22 9:03 AM) Weight 76.2 kg (01/06/22 8:38 AM) 76.81 kg (01/05/22 9:03 AM) Oxygen Saturation [94-100 %] 96 % (01/07/22 11:00 AM) 97 % (01/07/22 7:00 AM) 98 % (01/07/22 3:00 AM) Pulse Rate [55-90 bpm] 82 bpm (01/07/22 11:00 AM) 81 bpm (01/07/22 7:00 AM) 80 bpm (01/07/22 3:00 AM) Body Mass Index [18.5-24.99] 28.68 *H* (01/06/22 8:38 AM) 28.91 *H* (01/05/22 9:03 AM) Blood Pressure [90-138/55-84 mm Hg] 102/69mm Hg (01/07/22 11:00 AM) 111/76mm Hg (01/07/22 7:00 AM) 121/80mm Hg (01/07/22 3:00 AM) Respiratory Rate [16-30 br/min] 18 br/min (01/07/22 11:00 AM) 18 br/min (01/07/22 9:51 AM) 18 br/min (01/07/22 7:00 AM) Temperature [96.8-100.4 DegF] 98.1 DegF (01/07/22 11:00 AM) 98.6 DegF (01/07/22 7:00 AM) 98.4 DegF (01/07/22 3:00 AM) Liters per Minute 2 L/min (01/06/22 1:15 PM) 6 L/min (01/06/22 12:30 PM) Mode of Delivery (Oxygen) Room air (01/07/22 11:00 AM) Room air (01/07/22 7:00 AM) Room air (01/07/22 3:00 AM) Blood pressure sites Arm, right (01/07/22 11:00 AM) Arm, right (01/07/22 7:00 AM) Arm, right (01/07/22 3:00 AM) Temperature Route Oral (01/07/22 11:00 AM) Axillary (01/07/22 7:00 AM) Axillary (01/07/22 3:00 AM) Dry Weight 76.2 kg (01/06/22 8:38 AM) 76.81 kg (01/05/22 9:03 AM) Weight Obtained Via Standing scale (01/06/22 8:38 AM) Dry Weight Obtained Via Standing scale (01/06/22 8:38 AM) Social History Social History Type Response Smoking Status Never smoker entered on: 05/12/13 Sex Care Team Personnel Name: Miles OTOOLE, Bernie Hardy Address: [address] [place] [address]
--- OUTSIDE RECORDS SUMMARY | 2024-01-11 13:56 | XMS_ITS | Continuity of Care Document ---
Author Organization [facility] lt Address [address] [place] [address]- Care Team Providers Care Religious Education Director Name Role Phone Gina Bhat MD Primary Care Physician Encounter [facility] Date(s): 09/23/20 - 09/30/20 [facility] Adult [address] [place] [address]- Encounter Diagnosis Toe pain, right(Discharge Diagnosis) - 09/23/20 Attending Physician: Gina Bhat MD Referring Physician: Peace NEWSPAPER STUFFER, Sue Allergies, Adverse Reactions, Alerts Substance Reaction [...] (oldterm) 8 03/14/09 Given 1Result Comment: [02/13/2018] [id number] 2Result Comment: [02/08/2017] [facility] [id number] 317 02 3Result Comment: [01/24/2013] ORDERRED BY GINA BHAT MD 4Result Comment: [09/19/2017] [id number] 5Admin Note: vis given 6Admin Note: BIOMEDICAL [...] EDT, Route to Pharmacy Electronically, [facility], 163, cm, 10/01/19 13:40:00 EDT, [...] Refills, Soft Stop, 05/13/20 10:25:00 EST, Capsule, [facility], 1 capsule By Mouth Once,PRN:as [...] Maintenance, 07/20/19 23:41:00 EDT, Tablet, [facility], 163, cm, 07/11/19 11:24:00 EST, Height, 82.6, kg, 05/24/18 7:14:00EST, Dry Weight Start Date: 07/20/19 Status: Ordered lisinopril 2.5 mg oral tablet 1, tablet, By Mouth, Daily, # 30 Unknown, Refills 0, Tot. Refills 0, Maintenance, 08/31/20 17:05:00EDT, Route to Pharmacy Electronically, [facility], 163, cm, 07/26/20 8:40:00 EDT,Height [...] Refills, Maintenance, 04/05/20 11:00:00 EST, [facility], 163, cm, 01/16/20 10:48:00 EDT, [...] 15:50:00 EDT, 11/06/19 15:50:00 EDT, [facility], 163, cm, 10/01/19 13:40:00 EDT, Height, 82.6, kg, 05/24/18 7:14:00 EST, Dry Weight Start Date: 11/06/19 Stop Date: 10/31/20 Status: Ordered ondansetron 8 mg oral tablet 1 tablet = 8 mg, By Mouth, 3 times a day, PRN Nausea & Vomiting, # 30 tablet, 0 Refills, Maintenance, 10/01/19 15:46:00 EDT, Tablet, [facility], 163, cm, 10/01/19 13:40:00 EDT, Height, 82.6, kg, 05/24/18 7:14:00 EST, Dry Weight Start Date: 10/01/19 Status: Ordered Pen [place], 31 G x 5 mm BD Ultra Fine III See Instructions, # 150 each, Refills 6, Tot. Refills 6, Maintenance, for use 4x daily with Lantus and humalog insulin E11.65, 06/24/18 10:09:38 EST, Compound Start Date: 06/24/18 Status: Ordered Pen [place], 31 G x 5 mm BD Ultra [...] EDT, Route to Pharmacy Electronically, [facility], 163, cm, 07/26/20 8:40:00 EDT, [...] Diagnosis Diagnosis Type Effective Dates Health Status inical Service Informant Toe pain, right Discharge Diagnosis 09/23/20 Vital Signs Most recent to oldest [Reference Range]: 1 Height 163 cm (09/23/20 9:42 AM) Weight 79.9 kg (09/23/20 9:42 AM) Oxygen Saturation [94-100 %] 98 % (09/23/20 9:42 AM) Pulse Rate [55-90 bpm] 93 bpm *H* (09/23/20 9:42 AM) Body Mass Index [18.5-24.99] 30.07 *>HHI* (09/23/20 9:42 AM) Blood Pressure [90-138/55-84 mm Hg] 102/ 72mm Hg (09/23/20 9:42 AM) Temperature [96.8-100.4 DegF] 98.3 DegF (09/23/20 9:42 AM) Blood pressure sites Arm, right (09/23/20 9:42 AM) Temperature Route Oral (09/23/20 9:42 AM) Weight Obtained Via Standing scale (09/23/20 9:42 AM) Social History Social History Type Response Smoking Status Never smoker entered on: 01/21/18 Sex
--- OUTSIDE RECORDS SUMMARY | 2024-01-11 13:56 | XMS_ITS | Continuity of Care Document ---
Author Organization [facility] Address [address] [place] [address]- Care Team Providers Care Bit Sharpener Name Role Phone Gina Bhat MD Primary Care Physician Encounter [facility] Date(s): 05/30/19 - 06/09/19 [facility] [address] [place] [address] [facility] Attending Physician: Brooklyn Shankar Admitting Physician: AdmtrBrooklyn [...] (oldterm) 8 03/14/09 Given 1Result Comment: [02/13/2018] [id number] 2Result Comment: [02/08/2017] [facility] [id number] 317 02 3Result Comment: [01/24/2013] ORDERRED BY GINA BHAT MD 4Result Comment: [09/19/2017] [id number] 5Admin Note: vis given 6Admin Note: BIOMEDICAL [...] 07/24/18 12:13:57 EDT, Route to Pharmacy Electronically, [id number], [facility] Start Date: 07/24/18 Status: [...] 01/06/19 11:51:55 EDT, Route to Pharmacy Electronically, [id number], [facility] Start Date: 01/06/19 Status: Ordered [...] Soft Stop, 06/06/19 10:53:00 EST, Tablet,[facility], 163, cm, 06/04/19 8:19:00 EST, Height, 82.6, kg, 05/24/18 7:14:00 EST, Dry Weight Start Date: 06/06/19 Status: Ordered folic acid 1 mg oral tablet 4 mg, 4, tablet, By Mouth, Daily, # 120 tablet, Refills 5, Tot. Refills 5, Maintenance, 05/22/19 16:08:00 EST, Route to Pharmacy Electronically, [facility], Patient prescribed increased dose secondary [...] EST, Tablet Start Date: 05/30/19 Status: Ordered Levaquin 500 mg oral tablet 1 tablet = 500 mg, By Mouth, Every 24 hours, for 7 days, # 7 tablet, 0 Refills, Acute 06/11/19 8:42:00 EST, 06/04/19 8:42:00 EST, Tablet, [facility], 163, cm, 06/04/19 8:19:00 EST, Height, 82.6, kg, 05/24/18 7:14:00 EST, Dry Weight Start Date: 06/04/19 Stop Date: 06/11/19 Status: Ordered Lipitor 40 mg oral tablet 1 tablet = 40 mg, By Mouth, Daily, # 90 tablet, 3 Refills, Maintenance, Tablet, Route to Pharmacy Electronically, [id number], [facility] Start Date: 07/31/18 Status: Ordered lisinopril 2.5 mg oral tablet 2.5 mg, 1, tablet, By Mouth, Daily, # 30 tablet, Refills 11, Tot. Refills 11, Maintenance, 10/10/1915:45:18 EDT, Route to Pharmacy Electronically, [id number], [facility] Start Date: [...] Requisition Start Date: 05/19/16 Status: Ordered Pen [place], 31 G x 5 mm BD Ultra [...] [facility] #[facility] Start Date: 04/14/19 Status: Ordered Tessalon Perles 100 mg oral capsule 1 capsule = 100 mg, By Mouth, 3 times a day, for 7 days, # 21 capsule, 0 Refills, Acute 06/11/19 8:44:00 EST, 06/04/19 8:44:00 EST, Capsule, [facility], 163, cm, 06/04/19 8:19:00 EST, Height, 82.6, kg, 05/24/18 7:14:00 EST, Dry Weight Start Date: 06/04/19 Stop Date: 06/11/19 Status: Ordered topiramate 50 mg oral tablet [...]
--- OUTSIDE RECORDS SUMMARY | 2024-01-11 13:56 | XMS_ITS | Continuity of Care Document ---
Author Organization [facility] Address [address] [place] [address]- Care Team Providers Care Bushler Name Role Phone Miles OTOOLE, Bernie Hardy Primary Care Physician Encounter [facility] Date(s): 03/20/22 - 04/19/22 [facility] Adult [address] [place] [address]- Allergies, Adverse Reactions, Alerts Substance Reaction Severity [...] (oldterm) 8 03/14/09 Given 1Result Comment: [02/13/2018] [id number] 2Result Comment: [02/08/2017] [facility] [id number] 317 02 3Result Comment: [01/24/2013] ORDERRED BY GINA GAINES MD 4Result Comment: [09/19/2017] [id number] 5Admin Note: vis given 6Admin Note: BIOMEDICAL [...] Personnel Name: Marisa CHAIDEZ, Neto Osorio Position: [facility] Renal MD Member Role: Lifetime Consulting Physician Address: Address: [address] [place] [address], [address] Name: Lore Clinton RN Position: [facility] RN Member Role: Primary Care Nurse Name: Bernie Aquino NP Position: [facility] PCO Associate Professional Member Role: PCP Address: Address: [address] [place] [address]- [place] Name: Gregg Hardy MD Position: [facility] Pulmonary MD Member Role: Lifetime Consulting Physician Address: Address: [address] [place] [address]- Care Team Related Persons Name: MERRITT SINGLETARY Address: home [address] [place] [address] Name: BLAIRE JACOB Address: home [address] [place] [address]
--- OUTSIDE RECORDS SUMMARY | 2024-01-11 13:56 | XMS_ITS | Continuity of Care Document ---
Author Organization [facility] ter Address [address] [place] [address]- Care Team Providers Care Investor Relations Specialist Name Role Phone Perlita CHAIDEZ, Gina Smith Primary Care Physician [phone] Encounter [facility] Date(s): 04/29/19 - 04/29/[address] [address] [facility] Attending Physician: Chris Rosenbaum MD Allergies, [...] (oldterm) 8 03/14/09 Given 1Result Comment: [02/13/2018] [id number] 2Result Comment: [02/08/2017] [facility] [id number] 317 02 3Result Comment: [01/24/2013] ORDERRED BY GINA GAINES MD 4Result Comment: [09/19/2017] [id number] 5Admin Note: vis given 6Admin Note: BIOMEDICAL MARIELLA 7Admin Note: H1N1 8Admin Note: elsewhere Medications Aimovig SureClick Autoinjector 70 mg/mL subcutaneous solution Subcutaneous Infusion, Every 28 days, 0 Refills, Maintenance, 09/06/18 14:25:43 EDT Start Date: 09/06/18 Status: Ordered albuterol 0.083% inhalation solution 3 mL = 2.5 mg, Inhalation, Once, [id number] 01/2020, # 3 mL, 0 Refills, Soft Stop, 03/14/19 16:50:59 EDT, Solution Start Date: 03/14/19 Status: Ordered benztropine 1 mg oral tablet See Instructions, 1 1/2 tab in AM and 1 tab in pm, # 45 each, 5 Refills, Maintenance, 04/23/13 9:30:27 EST Start Date: 04/23/13 Status: Ordered Jade = 0.35 mg, By Mouth, Daily, WHISKEY REGAUGER, 0 Refills, Maintenance, 02/03/19 14:41:15 EDT Start Date: 02/03/19 Status: Ordered Colcrys 0.6 mg oral tablet 0.6 mg, 1, tablet, By Mouth, 2 times a day, NAME BRAND MEDICALLY NECESSARY NO SUBSTITUTION, # 60 tablet, Refills 11, Tot. Refills 11, Maintenance, 07/24/18 12:13:57 EDT, Route to Pharmacy Electronically, [id number], [facility] Start Date: 07/24/18 Status: [...] 01/06/19 11:51:55 EDT, Route to Pharmacy Electronically, [id number], [facility] Start Date: 01/06/19 Status: Ordered Diflucan 150 mg oral tablet See Instructions, 1 tablet By Mouth every other day, # 3 tablet, 1 Refills, Soft Stop, 03/14/19 11:42:57 EDT Start Date: 03/14/19 Status: Ordered Diflucan 150 mg oral tablet See Instructions, 1 tablet By Mouth every other day, # 3 tablet, 1 Refills, Soft Stop, 02/19/19 10:20:23 EDT Start Date: 02/19/19 Status: Ordered EpiPen 2-Juvenal = 0.3 mg, [...] still present Start Date: 08/06/17 Status: Ordered gabapentin 300 mg oral capsule See Instructions, 1 capsule By Mouth in morning, 4 capsule in evening, # 210 capsule, 0 Refills, Maintenance, 10/14/13 9:18:13, Capsule, 3 capsule By Mouth in morning, 4 capsule in evening Start Date: 10/14/13 Status: Ordered hydrOXYzine pamoate 50 mg oral [...] Refills, Maintenance, Tablet, Route to Pharmacy Electronically, [id number], [facility] Start Date: 07/31/18 Status: Ordered lisinopril 2.5 mg oral tablet 2.5 mg, 1, tablet, By Mouth, Daily, # 30 tablet, Refills 11, Tot. Refills 11, Maintenance, 10/10/1915:45:18 EDT, Route to Pharmacy Electronically, [id number], [facility] Start Date: [...] mg oral enteric coated capsule See Instructions, # 60 capsule, Refills 2 Tot. Refills 2, TAKE ONE CAPSULE BY MOUTH TWICE A DAY, [facility] Start Date: 02/17/19 Status: Ordered oxyCODONE 5 mg oral tablet 5 mg, 1, tablet, By Mouth, Every 6 hours, PRN, DX: Migraines G43.909 OK to fill less than prescribed amount, # 12 tablet, Refills 0, Tot. Refills 0, Maintenance, for pain, 05/19/16 16:15:06, Print Requisition Start Date: 05/19/16 Status: Ordered Pen [place], 31 G x 5 mm BD Ultra Fine III See Instructions, # 150 each, Refills 6, Tot. Refills 6, Maintenance, for use 4x daily with Lantus and humalog insulin E11.65, 06/24/18 10:09:38 EST, Compound Start Date: 06/24/18 Status: Ordered Singulair 10 mg oral tablet 10 mg, 1, tablet, By Mouth, Daily in PM, # 30 tablet, Refills 11, Tot. Refills 11, Maintenance, 06/04/18 10:27:43 EST, Route to Pharmacy Electronically, [id number], [facility] Start Date: 06/04/18 Status: Ordered SUMAtriptan 100 mg oral tablet [...]
--- OUTSIDE RECORDS SUMMARY | 2024-01-11 13:57 | XMS_ITS | Continuity of Care Document ---
Author Organization [facility] Address [address] [place] [address]- Care Team Providers Care Director Of Medicare Name Role Phone Miles OTOOLE, Bernie Hardy Primary Care Physician [phone] [place] [facility] [place]s): 08/12/21 - 09/11/21 [facility] [address] [place] [address] Allergies, Adverse Reactions, Alerts [...] (oldterm) 8 03/14/09 Given 1Result Comment: [02/13/2018] [id number] 2Result Comment: [02/08/2017] [facility] [id number] 317 02 3Result Comment: [01/24/2013] ORDERRED BY GINA GAINES MD 4Result Comment: [09/19/2017] [id number] 5Admin Note: vis given 6Admin Note: BIOMEDICAL [...]
--- OUTSIDE RECORDS SUMMARY | 2024-01-11 13:57 | XMS_ITS | Continuity of Care Document ---
Author Organization [facility] Address [address] [place] [address]- Care Team Providers Care Staff Radiographer Name Role Phone Gina Bhat MD Primary Care Physician Encounter [facility] [place] Date(s): 05/30/19 - 06/06/19 [facility] Adult [address] [place] [address]- [facility] Encounter Diagnosis Acute bronchitis with asthma(Discharge Diagnosis) - 05/30/19 Dysuria(Discharge Diagnosis) - 05/30/19 Attending Physician: Gina Bhat MD Allergies, Adverse [...] (oldterm) 8 03/14/09 Given 1Result Comment: [02/13/2018] [id number] 2Result Comment: [02/08/2017] [facility] [id number] 317 02 3Result Comment: [01/24/2013] ORDERRED BY GINA BHAT MD 4Result Comment: [09/19/2017] [id number] 5Admin Note: vis given 6Admin Note: BIOMEDICAL [...] 07/24/18 12:13:57 EDT, Route to Pharmacy Electronically, [id number], [facility] Start Date: 07/24/18 Status: [...] 01/06/19 11:51:55 EDT, Route to Pharmacy Electronically, [id number], [facility] Start Date: 01/06/19 Status: Ordered [...] 0 Refills, Soft Stop, 06/06/19 10:53:00 EST, Tablet,[facility], 163, cm, 06/04/19 8:19:00 EST, Height, 82.6, kg, 05/24/18 7:14:00 EST, Dry Weight Start Date: 06/06/19 Status: Ordered folic acid 1 mg oral tablet 4 mg, 4, tablet, By Mouth, Daily, # 120 tablet, Refills 5, Tot. Refills 5, Maintenance, 05/22/19 16:08:00 EST, Route to Pharmacy Electronically, [facility], Patient prescribed increased dose secondary [...] Refills, Maintenance, Tablet, Route to Pharmacy Electronically, [id number], [facility] Start Date: 07/31/18 Status: Ordered lisinopril 2.5 mg oral tablet 2.5 mg, 1, tablet, By Mouth, Daily, # 30 tablet, Refills 11, Tot. Refills 11, Maintenance, 10/10/1915:45:18 EDT, Route to Pharmacy Electronically, [id number], [facility] Start Date: [...] Requisition Start Date: 05/19/16 Status: Ordered Pen [place], 31 G x 5 mm BD Ultra Fine III See Instructions, # 150 each, Refills 6, Tot. Refills 6, Maintenance, for use 4x daily with Lantus and humalog insulin E11.65, 06/24/18 10:09:38 EST, Compound Start Date: 06/24/18 Status: Ordered predniSONE 20 mg oral tablet TAKE TWO TABLETS BY MOUTH EVERY DAY FOR 5 DAYS Start Date: 06/04/19 Status: Ordered predniSONE 20 mg oral tablet 2 tablet = 40 mg, By Mouth, Daily, for 5 days, # 10 tablet, 0 Refills, Acute 06/09/19 8:46:00 EST, 06/04/19 8:46:00 EST, Tablet, [facility], 163, cm, 06/04/19 8:19:00 EST, Height, 82.6, kg, 05/24/18 7:14:00 EST, Dry Weight Start Date: 06/04/19 Stop Date: 06/09/19 Status: Ordered Singulair 10 mg oral tablet 10 mg, 1, tablet, By Mouth, Daily in PM, # 30 tablet, Refills 11, Tot. Refills 11, Maintenance, 05/30/19 11:43:00 EST, Route to Pharmacy Electronically, [facility], 163, cm, 05/30/19 11:08:00 EST, Height, 82.6, kg, 05/24/18 7:14:00 EST,... Start Date: 05/30/19 Status: Ordered SUMAtriptan 100 mg oral tablet 1 tablet, By Mouth, Daily, PRN NEEDED FOR MIGRAINE, # 9 tablet, Refills 11 Tot. Refills 11, MAY REPEAT DOSE IN 2 HOURS IF NEEDED, [facility] Start Date: 04/14/19 Status: Ordered Tessalon Perles 100 mg oral capsule 1 capsule = 100 mg, By Mouth, 3 times a day, for 7 days, # 21 capsule, 0 Refills, Acute 06/11/19 8:44:00 EST, 06/04/19 8:44:00 EST, Capsule, [facility], 163, cm, 06/04/19 8:19:00 EST, [...] Effective Dates Health Status Clinical Service Informant Acute bronchitis with asthma Discharge Diagnosis 05/30/19 Dysuria Discharge Diagnosis 05/30/19 Vital Signs Most recent to oldest [Reference Range]: 1 Height 163 cm (05/30/19 11:08 AM) Weight 80.9 kg (05/30/19 11:08 AM) Oxygen Saturation [94-100 %] 98 % (05/30/19 11:08 AM) Pulse Rate [55-90 bpm] 88 bpm (05/30/19 11:08 AM) Body Mass Index [18.5-24.99] 30.45 *>HHI* (05/30/19 11:08 AM) Blood Pressure [90-138/55-84 mm Hg] 104/ 64mm Hg (05/30/19 11:08 AM) Temperature [96.8-100.4 DegF] 98.2 DegF (05/30/19 11:08 AM) Mode of Delivery (Oxygen) Room air (05/30/19 11:08 AM) Blood pressure sites Arm, left (05/30/19 11:08 AM) Temperature Route Oral (05/30/19 11:08 AM) Weight Obtained Via Standing scale (05/30/19 11:08 AM) Social History Social History Type Response Smoking Status Never smoker entered on: 01/21/18 Sex
--- OUTSIDE RECORDS SUMMARY | 2024-01-11 13:57 | XMS_ITS | Continuity of Care Document ---
Author Organization [facility] lt Address [address] [place] [address]- Care Team Providers Care Cytopathology Technologist Name Role Phone Perlita CHAIDEZ, Gina Smith Primary Care Physician [facility]counter [facility] Date(s): 05/13/20 - 06/12/20 [facility] Adult [address] [place] [address]- Attending Physician: AdmBrooklyn lopez Admitting Physician: Admtr, Dillan8 Referring Physician: Admtr, Ar8 Allergies, Adverse Reactions, Alerts Substance Reaction Severity Status morphine vomiting Active Flonase Active Adhesive Bandage Active Other Food Allergy 1 Active Reglan double vision Active Demerol HCl vomiting Active Cats Active 1lemons Immunizations Given and [...] (oldterm) 8 03/14/09 Given 1Result Comment: [02/13/2018] [id number] 2Result Comment: [02/08/2017] [facility] [id number] 317 02 3Result Comment: [01/24/2013] ORDERRED BY GINA GAINES MD 4Result Comment: [09/19/2017] [id number] 5Admin Note: vis given 6Admin Note: BIOMEDICAL [...] Refills, Maintenance, 07/20/19 23:41:00 EDT, Tablet, [facility], 163, cm, 07/11/19 11:24:00 EST, Height, 82.6, kg, 05/24/18 7:14:00EST, Dry Weight Start Date: 07/20/19 Status: Ordered lisinopril 2.5 mg oral tablet 2.5 mg, 1, tablet, By Mouth, Daily, # 30 tablet, Refills 11, Tot. Refills 11, Maintenance, 10/02/2013:10:00 EDT, Route to Pharmacy Electronically, [facility], 163, cm, 10/01/19 13:40:00 EDT, [...] 5 Refills, Maintenance, 04/05/20 11:00:00 EST, [facility], 163, cm, 01/16/20 10:48:00 EDT, [...] Requisition Start Date: 05/19/16 Status: Ordered Pen [place], 31 G x 5 mm BD Ultra Fine III See Instructions, # 150 each, Refills 6, Tot. Refills 6, Maintenance, for use 4x daily with Lantus and humalog insulin E11.65, 06/24/18 10:09:38 EST, Compound Start Date: 06/24/18 Status: Ordered Pen [place], 31 G x 5 mm BD Ultra [...] EST, Route to Pharmacy Electronically, [facility], 163, cm, 01/16/20 10:48:00 [...]
--- OUTSIDE RECORDS SUMMARY | 2024-01-11 13:57 | XMS_ITS | Continuity of Care Document ---
Author Organization [facility] David Address [address] [place] [address]- Care Team Providers Care .Net Programmer Name Role Phone Gina Bhat MD Primary Care Physician [facility] Date(s): 02/17/21 - 03/19/21 [facility] Adult [address] [place] [address]- Allergies, Adverse Reactions, Alerts Substance Reaction Severity [...] (oldterm) 8 03/14/09 Given 1Result Comment: [02/13/2018] [id number] 2Result Comment: [02/08/2017] [facility] [id number] 3Result Comment: [01/24/2013] ORDERRED BY GINA BHAT MD 4Result Comment: [09/19/2017] [id number] 5Admin Note: vis given 6Admin Note: BIOMEDICAL [...] EDT, Route to Pharmacy Electronically, [facility], 163,cm, 11/22/20 12:47:00 EDT, [...] Refills, Soft Stop, 11/01/20 15:04:00 EDT, Tablet, [facility], Partial fill upon patient request [...] 11:52:00EDT, Route to Pharmacy Electronically, [facility], 163, cm, 09/23/20 9:42:00 [...] Refills, Maintenance, 02/10/21 15:07:00 EDT, [facility], 163, cm, 02/10/21 14:31:00 EDT, [...] Weight Start Date: 03/16/21 Status: Ordered Pen [place], 31 G x 5 mm BD Ultra Fine III See Instructions, # 150 each, Refills 6, Tot. Refills 6, Maintenance, for use 4x daily with Lantus and humalog insulin E11.65, 06/24/18 10:09:38 EST, Compound Start Date: 06/24/18 Status: Ordered Pen [place], 31 G x 5 mm BD Ultra [...] 02/23/21 16:10:00 EDT, Route to Pharmacy Electronically, [email or web address], Rx resent from 07/26/20, 163, cm, 02/21/21 15:42:00 EDT, Height, 81, kg, 09... Start Date: 02/23/21 Status: Ordered SUMAtriptan 100 mg oral tablet 1 tablet, By Mouth, Daily, PRN NEEDED FOR MIGRAINE, MAY REPEAT DOSE IN 2 HOURS IF NEEDED, # 9 tablet, 11 Refills, Soft Stop, 05/10/20 14:37:00 EST, [email or web address], 163, cm, 01/16/20 10:48:00 EDT, Height, 82.6, kg, 05/24/18 7:14:00 ESTDr... Start Date: 05/10/20 Status: Ordered topiramate 50 mg oral tablet See Instructions, 1 tablet in morning, 3 tablets at bedtime, # 120 tablet, 5 Refills, Maintenance, 01/21/21 15:35:00 EDT, [email or web address], 163, cm, 11/22/20 12:47:00 EDT, [...]
--- OUTSIDE RECORDS SUMMARY | 2024-01-11 13:57 | XMS_ITS | Continuity of Care Document ---
Author Organization [facility] David lt Address [address] [place] [address]- Care Team Providers Care Grinding Wheel Facer Name Role Phone Perlita CHAIDEZ, Gina Smith Primary Care Physician [facility] Date[facility]s): 05/18/20 - 06/17/20 [facility] Adult [address] [place] [address]- Allergies, Adverse Reactions, Alerts Substance Reaction Severity [...] (oldterm) 8 03/14/09 Given 1Result Comment: [02/13/2018] [id number] 2Result Comment: [02/08/2017] [facility] [id number] 3Result Comment: [01/24/2013] ORDERRED BY GINA GAINES MD 4Result Comment: [09/19/2017] [id number] 5Admin Note: vis given 6Admin Note: BIOMEDICAL [...] 1 Refills, Maintenance, 07/20/19 23:41:00 EDT, Tablet, [facility], 163, cm, 07/11/19 11:24:00 EST, Height, 82.6, kg, 05/24/18 7:14:00EST, Dry Weight Start Date: 07/20/19 Status: Ordered lisinopril 2.5 mg oral tablet 2.5 mg, 1, tablet, By Mouth, Daily, # 30 tablet, Refills 11, Tot. Refills 11, Maintenance, 10/02/2013:10:00 EDT, Route to Pharmacy Electronically, [facility], 163, cm, 10/01/19 13:40:00 EDT, [...] tablet, 5 Refills, Maintenance, 04/05/20 11:00:00 EST, [facility], 163, cm, 01/16/20 10:48:00 [...] Requisition Start Date: 05/19/16 Status: Ordered Pen [place], 31 G x 5 mm BD Ultra Fine III See Instructions, # 150 each, Refills 6, Tot. Refills 6, Maintenance, for use 4x daily with Lantus and humalog insulin E11.65, 06/24/18 10:09:38 EST, Compound Start Date: 06/24/18 Status: Ordered Pen [place], 31 G x 5 mm BD Ultra [...] EST, Route to Pharmacy Electronically, [facility], 163, cm, 01/16/20 10:48:00 [...]
[2024-01-11 14:38] VITALS: BP 140/95; PULSE 106; RESP 18; TEMP 36.9; O2SAT 97
[2024-01-11 15:22] LABS: Influenza A PCR NEGATIVE (Negative); Influenza B PCR NEGATIVE (Negative); Resp Syncy Virus RNA Qual PCR NEGATIVE (Negative); SARS COV2 PCR INHOUSE NEGATIVE (Negative)
== END 2024-01-11 14:39 | disposition home or self-care (01) ==
PROVIDERS: Physician Assistant Medical; Emergency Provider Emergency Medicine; PCP Nurse Practitioner Family
DX: E11.9 Type 2 diabetes mellitus without complications (principal); Z03.818 Encounter for observation for suspected exposure to other biological agents ruled out; E78.5 Hyperlipidemia, unspecified; J45.909 Unspecified asthma, uncomplicated; Z79.02 Long term (current) use of antithrombotics/antiplatelets; Z79.899 Other long term (current) drug therapy; Z79.84 Long term (current) use of oral hypoglycemic drugs
CPT/HCPCS: 0241U; 36415; 80053; 82010; 82947; 85025; 99283; 99284

== ENCOUNTER 2024-03-05 09:35 | Outpatient (AMB) | payer BC, MEDICARE, MEDICAID, SELFPAY ==
[2024-03-05 09:55] VITALS: BP 118/82; PULSE 92; O2SAT 98
--- NOTE | 2024-03-05 09:55 | HO.NEPHOV_ITS ---
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: No Accompanied by: Self / Same As Patient Allergies adhesive [ADHESIVE] Allergy (Intermediate, Verified 03/05/24 09:57) BLISTER fluticasone [From FLONASE] Allergy (Unknown, Verified 03/05/24 09:57) unknown meperidine [Demerol] Allergy (Unknown, Verified 03/05/24 09:57) vomit metoclopramide [From REGLAN] Allergy (Unknown, Verified 03/05/24 09:57) DIPLOPIA transparent dressing Allergy (Unknown, Verified 03/05/24 09:57) rash morphine [MORPHINE] Adverse Reaction (Severe, Verified 03/05/24 09:57) NAUSEA & VOMITING TEGADERM BANDAGE Allergy (Intermediate, Uncoded 01/29/20 16:24) RASH morphine Allergy (Unknown, Uncoded 01/20/19 00:00) vomit tape Allergy (Unknown, Uncoded 01/20/19 00:00) rash From DEMEROL Adverse Reaction (Severe, Uncoded 01/29/20 16:24) NAUSEA & VOMITING HPI Comments Details: Meredith is a pleasant 48-year-old woman with a history of immunodeficiency and currently disease IV immunoglobulins. She has a history of bipolar disorder and has been on lithium for several years. 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 Serum creatinine has been stable around 1.0. [place] was discontinued. She is currently on Vraylar. She has developed symptoms of TD. The plan is to switch her back to lithium as per her psychiatrist. She underwent a partial thyroidectomy on 01/06/2022. History of papillary thyroid Ca She disease IV hemoglobin every 3 weeks for immunodeficiency. History of medullary calcinosis of the kidneys. She has been on topiramate for several years. 05/28/23 Recently admitted with Campylobacter Jejuni Had diarrhea Ca and K was low 24 hr urine showed a volume of 4600 ml !! 07/23/23 Amiloride was increased in May UO has decreased She has cut back on soda Now she is back on [place] since May 2023 08/20/23 Recently she had 2 sinus infections treated with antibiotics without much improvement. She has an appointment with ENT in end of September. She has had some nausea and vomiting. P.o. intake has been suboptimal. Creatinine was 1.06 and BUN bumped up to 27 and she he is here for further evaluation. Baseline BUN is around 18 mg/dL. Creatinine stable around 1.0 mg/dL 11/22/23 Has GI symptoms/Vomiting h/o FMF - on colchicine Waiting to see Rheumatology Has missed many doses of [place] Recent Cr 1.12 12/11/23 Metformin was recently stopped. Blood sugar spiked and ended up in ER. 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 Surgical History History of endoscopy (~11/2023) History of ankle surgery History of umbilical hernia repair History of dilation and curettage History of arthroscopy History of oral surgery History of delivery Social History Household Members: Family Housing: House Do you presently have visiting nurse or other home services: No Alcohol intake: never Patient Tobacco Use Status: Never used Tobacco e-Cigarette/Vaping Use: Never Used service: No Sexual orientation: Straight/Heterosexual Physical Exam Vital Signs: Last Vital Signs Pulse 92 03/05/24 09:55 BP 118/82 03/05/24 09:55 Pulse Ox 98 03/05/24 09:55 Oxygen Delivery Method Room Air 03/05/24 09:55 BMI result Body Mass Index 30.0 Results Reviewed Results Reviewed: 03/03/24 Na 139 Cr 1.09 Nephrology Results: Hgb 12.8 g/dl (12.0-16.0) 01/11/24 WBC 11.7 X10*3/uL (4.8-10.8) H 01/11/24 Plt Count 453 X10*3/uL (160-400) H 01/11/24 Sodium 134 mmol/L (135-145) L 01/11/24 Potassium 3.5 mmol/L (3.3-5.1) 01/11/24 Chloride 108 mmol/L (96-108) 01/11/24 Carbon Dioxide 18 mmol/L (22-29) L 01/11/24 BUN 15 mg/dL (9-16) 01/11/24 Creatinine 1.09 mg/dL (0.5-1.4) 01/11/24 Calcium 9.6 mg/dL (8.4-10.2) 01/11/24 Renal US 01/11/24 Assessment & Plan Assessment & Plan (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 The polyuria is under control while she is on amiloride. Renal function has been stable as well. She is clearly at risk for ongoing in renal injury from lithium however it seems like this might be the only option to treat her bipolar illness. 24 hour urine collection showed a volume of 4600 and urine osmolarity of 220 risks and benefits of going back on lithium was explained and she is back on [place] since May 2023 Watch renal function and UO while on [place] She should continue with the low-sodium diet as well. Keep AMiloride at 10 mg QD Stay on low salt diet Given the h/o renal stones , would not add Calcium tabs Shall follow levels The bump in BUN is most likely due to poor p.o. intake. Hemoglobin has increased from 13.3 up to 14.1 most likely due to hemoconcentration I have encouraged her to increase fluid intake. Serum creatinine stable at 1.06. Clinically volume status appears stable. She will require a 24 urine collection to quantify urine output and based on this we can adjust the p.o. fluid intake. 12/11/23 SACHI due to hypoperfusion in a setting of hyperglycemia REcheck labs today Increase PO fluids Optimize blood sugar and follow up with PCP 01/02/24 Renal function is stable Keep on weekly IV fluids HAs polyuria - she is on [place] 450 mg BID Currently on Amiloride Stay on low Sodium diet IF polyuria presists, may need to lower or stop [place] Coding Level of Care Code Est Pt Level 4 (83167) Diagnoses Nephrogenic diabetes insipidus N25.1 CKD (chronic kidney disease) N18.9
== END 2024-03-05 10:09 | disposition home or self-care (01) ==
PROVIDERS: PCP Nurse Practitioner Family; Visit Provider Internal Medicine Hypertension Specialist
DX: N25.1 Nephrogenic diabetes insipidus (principal); N18.9 Chronic kidney disease, unspecified
CPT/HCPCS: 99214

== ENCOUNTER → 2024-03-05 09:35 | Outpatient (BNVA) | payer BC, MEDICARE, MEDICAID, SELFPAY | PROVIDERS: PCP Nurse Practitioner Family; Visit Provider Internal Medicine Hypertension Specialist ==

== ENCOUNTER 2024-04-16 13:47 | Inpatient (IN) | payer BC, MEDICARE, MEDICAID, SELFPAY ==
[2024-04-16 13:51] VITALS: BP 113/87; PULSE 113; RESP 19; TEMP 36.8; O2SAT 99; BMI 28.5
--- NOTE | 2024-04-16 13:51 | ED_ITS ---
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 She feels she could get out of control and hurt herself though no plan. She notes she has too much going on and she cannot manage at home. She is very depressed. MD complaint: feels depressed Onset (ago): week(s) Duration: getting worse History of same: Yes Relieving factors: none Exacerbating factors: medication and other Context: significant life stressor Associated psychiatric symptoms: depression Associated symptoms: denies other symptoms Treatments prior to arrival: none Related Data Home Medications ?Medication ?Instructions ?Recorded ?Confirmed montelukast 10 mg tablet 1 tab PO QPM 01/31/22 04/16/24 immune globulin (human) (IgG) 10 30 g IV .COMPLEX 04/23/23 04/16/24 gram intravenous solution levothyroxine 50 mcg tablet 50 mcg PO DAILY 04/23/23 04/16/24 melatonin 10 mg capsule 10 mg PO BEDTIME PRN Insomnia 04/23/23 04/16/24 venlafaxine 50 mg tablet 50 mg PO DAILY 04/23/23 04/16/24 norethindrone (contraceptive) 0.35 0.35 mg PO DAILY 05/28/23 04/16/24 mg tablet (Incassia) ondansetron HCl 4 mg tablet 4 mg PO Q8H PRN Nausea 05/28/23 04/16/24 oxcarbazepine 600 mg tablet 900 mg PO BID 05/28/23 04/16/24 topiramate 50 mg tablet 50 mg PO BID 05/28/23 04/16/24 atorvastatin 40 mg tablet 40 mg PO BEDTIME 12/11/23 04/16/24 cetirizine 10 mg capsule (Zyrtec) 10 mg PO BID 12/11/23 04/16/24 ferrous gluconate 324 mg (38 mg 324 mg PO DAILY 12/11/23 04/16/24 iron) tablet hydroxyzine HCl 10 mg tablet 40 mg PO BEDTIME 12/11/23 04/16/24 lamotrigine 200 mg tablet,extended 200 mg PO BEDTIME 12/11/23 04/16/24 release 24 hr metformin 1,000 mg tablet 1,000 mg PO BID 12/11/23 04/16/24 omeprazole 40 mg capsule,delayed 40 mg PO BID 12/11/23 04/16/24 release colchicine 0.6 mg tablet 1.8 mg PO TID 01/02/24 04/16/24 prednisone 20 mg tablet 20 mg PO DAILY 01/02/24 04/16/24 omalizumab 300 mg/2 mL 300 mg subcut QMONTH 03/05/24 04/16/24 subcutaneous syringe (Xolair) docusate sodium 100 mg capsule 100 mg PO BID PRN constipation 04/16/24 04/16/24 dulaglutide 0.75 mg/0.5 mL 0.75 mg subcut QWEEK 04/16/24 04/16/24 subcutaneous pen injector (Trulicity) hydroxyzine HCl 50 mg tablet 50 mg PO DAILY PRN Anxiety 04/16/24 04/16/24 ipratropium 20 mcg-albuterol 100 1 puff inhalation QID PRN SOB 04/16/24 04/16/24 mcg/actuation mist for inhalation (Combivent Respimat) lithium carbonate 150 mg capsule 150 mg PO DAILY 04/16/24 04/16/24 lithium carbonate 150 mg capsule 300 mg PO BEDTIME 04/16/24 04/16/24 loperamide 2 mg capsule 4 mg PO DIRECTED 04/16/24 04/16/24 magnesium oxide 400 mg PO DIRECTED 04/16/24 04/16/24 rizatriptan 10 mg tablet 10 mg PO Q2-4H PRN Migraine 04/16/24 04/16/24 Headache Previous Rx's ?Medication ?Instructions ?Recorded amiloride 5 mg tablet 10 mg (2 x 5 mg) PO DAILY #60 tabs 08/06/23 Allergies Allergy/AdvReac Type Severity Reaction Status Date / Time adhesive [ADHESIVE] Allergy Intermediate BLISTER Verified 04/16/24 13:55 fluticasone [From FLONASE] Allergy Unknown unknown Verified 04/16/24 13:55 meperidine [Demerol] Allergy Unknown vomit Verified 04/16/24 13:55 metoclopramide [From REGLAN] Allergy Unknown DIPLOPIA Verified 04/16/24 13:55 transparent dressing Allergy Unknown rash Verified 04/16/24 13:55 morphine [MORPHINE] AdvReac Severe NAUSEA & Verified 04/16/24 13:55 VOMITING TEGADERM BANDAGE Allergy Intermediate RASH Uncoded 04/16/24 13:55 morphine Allergy Unknown vomit Uncoded 04/16/24 13:55 tape Allergy Unknown rash Uncoded 04/16/24 13:55 From DEMEROL AdvReac Severe NAUSEA & Uncoded 04/16/24 13:55 VOMITING Review of Systems 2 Review of Systems: Constitutional : No Fever, No Chills ENT/Mouth : No Ear Pain, No Nasal Congestion, No sore throat Eyes: No Eye Pain, No Swelling, No Redness Cardiovascular : No Chest Pain, No SOB Respiratory : No Cough, No Sputum, No Dyspnea Gastrointestinal : No Nausea, No Vomiting, No Diarrhea, No Hematochezia, No Melena Genitourinary : No Dysuria, No Urinary Frequency, No Hematuria Musculoskeletal : No Myalgias Skin : No Skin Lesions, No rash Neuro : No Weakness, No Numbness, No Paresthesias, No Dizziness, No Headache Psych : positive Anxiety, positive Depression, no SI/HI All other systems reviewed and are negative PMFSH Past Medical History Attestation statement: The following information was validated with the patient. Source: old records reviewed Medical History Acute anxiety Depression History of recurrent pneumonia History of Pseudomonas pneumonia Bipolar disorder Menstrual migraine Allergic asthma Dyslipidemia Type 2 diabetes mellitus FMF (familial Mediterranean fever) Primary immunodeficiency disorder Surgical History History of endoscopy (~11/2023) History of ankle surgery History of umbilical hernia repair History of dilation and curettage History of arthroscopy History of oral surgery History of delivery Social History Social History Household Members: Family Housing: House Do you presently have visiting nurse or other home services: No Alcohol intake: never Patient Tobacco Use Status: Never used Tobacco Smoked in Last 30 Days: No e-Cigarette/Vaping Use: Never Used Use of substances other than those prescribed or required for medical reasons: No Advance Directives: No Advance Directives Information Provided: No Do you have a plan to hurt others: No Plan Patient : No service: No Sexual orientation: Straight/Heterosexual Physical Exam 2 Vital Signs: Vital Signs: Last Vital Signs Temp 98.2 F 04/16/24 13:51 Pulse 113 H 04/16/24 13:51 Resp 16 04/16/24 14:26 BP 113/87 04/16/24 13:51 Pulse Ox 99 04/16/24 13:51 O2 Del Method Room Air 04/16/24 13:51 BMI result Body Mass Index 28.5 Appearance: Alert. Oriented X3. No acute distress. Eyes: Pupils equal, round and reactive to light. ENT: Pharynx normal. Neck: Normal inspection. Neck supple. CVS: Normal heart rate and rhythm. Pulses normal. Respiratory: No respiratory distress. Breath sounds normal. Abdomen: Soft and nontender. Skin: Skin warm and dry. Normal skin color. Normal skin turgor. Extremities: No lower extremity edema. No calf ttp Neuro: Oriented X 3. No motor deficit. No sensory deficit. CN2-12 intact Course Course Course Narrative: This is a Rapid Medical Examination (RME) performed by Leeann Booth PA-C in triage. Full HPI, ROS, assessment and treatment plan per primary provider in the Main ED. 48 yo female with history of CKD, DI, bipolar disorder who presenting to the ER from [facility] for psych admission per patient. she states she is coming off of her lithium and she needs to come into the hospital to do so. she c/o severe depression, anxiety and feeling overwhelmed with everything going on. no SI or HI. Plan: medical clearance and care team evaluation Reevaluation(s) Reevaluation #1: observation care revealed that the patient does meet psychiatric necessity for hospitalization. final disposition discussed with the patient. The patient completed observation care at 618pm Medical Decision Making Medical Decision Making MDM Narrative: 48 yo female with PMH of CKD, Bipolar disorder here with c/o anxiety, depression, vague possible SI if things continue blames coming off lithium then having to take PRN prednisone for her famililal meditteranean fevers - at this time labs, CARE team consult Differential Diagnosis Differential Diagnoses: The differential diagnosis associated with the presentation includes bipolar, depression, anxiety Admission/Observation Consideration of admission/observation: Escalation of care including admission/observation considered physician observation started at 220pm pending CARE team Consult Healthcare Provider Management of the patient was discussed with: Behavioral Health Provider Lab Data MDM Lab Attestation statement: I reviewed the patient's lab results. 04/16/24 15:03 04/16/24 15:03 Labs: Lab Results 04/16/24 04/16/24 Range/Units 14:29 15:03 WBC 14.9 H (4.8-10.8) X10*3/uL RBC 5.39 (4.20-5.50) X10*6/uL Hgb 11.7 L (12.0-16.0) g/dl Hct 38.1 (37.0-47.0) % MCV 70.7 L (80.0-98.0) fL MCH 21.7 L (27.0-33.0) pg MCHC 30.7 L (31.0-35.0) g/dl RDW 18.6 H (11.0-16.0) % Plt Count 418 H (160-400) X10*3/uL MPV 9.6 (9.4-12.3) fL Immature Gran % (Auto) 0.3 (0.0-0.4) % Neut % (Auto) 82.1 H (45-73) % Lymph % (Auto) 9.5 L (20-40) % [place] % (Auto) 6.4 (2-11) % Eos % (Auto) 1.1 (0-4) % Baso % (Auto) 0.6 (0-2) % Lymph # (Auto) 1.4 (1.2-4.9) X10*3/uL [place] # (Auto) 1.0 (0.1-1.2) X10*3/uL Eos # (Auto) 0.2 (0.0-0.4) X10*3/uL Baso # (Auto) 0.1 (0.0-0.2) X10*3/uL Abs Immat Gran (auto) 0.05 H (0.00-0.03) X10*3/uL Absolute Neuts (auto) 12.2 H (2.0-8.3) x10*3/uL Absolute Nucleated RBC 0.000 (0.0-0.012) X10*3/uL Nucleated RBC % (auto) 0.0 (0.0-0.2) /100WBC Sodium 139 (135-145) mmol/L Potassium 4.2 (3.3-5.1) mmol/L Chloride 108 (96-108) mmol/L Carbon Dioxide 19 L (22-29) mmol/L Anion Gap 16 (12-20) BUN 23 H (9-16) mg/dL Creatinine 1.11 (0.5-1.4) mg/dL Estim Creat Clear Calc 61.5 Estimated GFR 52 Random Glucose 276 H (60-115) mg/dL Calcium 9.8 (8.4-10.2) mg/dL Magnesium 1.8 (1.6-2.6) mg/dL Total Bilirubin 0.3 (0.0-1.0) mg/dL Direct Bilirubin 0.1 (0.0-0.5) mg/dL AST 26 (5-31) U/L ALT 32 H (0-31) U/L Alkaline Phosphatase 287 H (39-117) U/L Total Protein 7.6 (6.5-8.0) g/dL Albumin 4.0 (3.5-5.0) g/dL Urine Color Yellow Urine Appearance Clear Urine pH 6.5 (5.0-9.0) Ur Specific [place] <= 1.005 (1.005-1.025) Urine Protein Negative (Neg-Trace) mg/dL Urine Glucose (UA) Negative (Negative) mg/dL Urine Ketones Negative (Negative) mg/dL Urine Blood Negative (Negative) Urine Nitrite Negative (Negative) Ur Leukocyte Esterase Small (1+) H (Negative) Urine RBC 0-2 (0-2) /HPF Urine WBC 6-10 H (0-5) /HPF Ur Squamous Epith Cells 3-5 (0-2) /HPF Urine Bacteria Trace (None Seen) Hyaline Casts 0-2 (0-2) /LPF Urine Opiates Screen Not Detected (Not Detect) Ur Buprenorphine Scrn Not Detected (Not Detect) ng/mL Ur Oxycodone Screen Not Detected (Not Detect) ng/mL Urine Methadone Screen Not Detected (Not Detect) ng/mL Urine Fentanyl Screen Not Detected (Not Detect) Ur Barbiturates Screen Not Detected (Not Detect) Ur Phencyclidine Scrn Not Detected (Not Detect) Ur Amphetamines Screen Not Detected (Not Detect) U Benzodiazepines Scrn Not Detected (Not Detect) [place] 0.43 L (0.60-1.20) mmol/L Urine Cocaine Screen Not Detected (Not Detect) U Marijuana (THC) Screen Not Detected (Not Detect) Ethyl Alcohol < 10 mg/dL External Record Review External record reviewed: Outpatient record Discharge Plan Discharge Clinical Impression: Bipolar 1 disorder Patient Disposition: Admitted As Inpatient Interventions: Cassia-Suicide Risk Severity Scale Last Done: 04/16/24 14:26
[2024-04-16 14:26] VITALS: RESP 16
[2024-04-16 14:36] LABS: Appearance Urine Clear; Color Urine Yellow; Glucose Urine UA Negative (Negative); Leukocyte Esterase Urine Small (1+) (Negative); Nitrite Urine Negative (Negative); PH 6.5 (5.0-9.0); Specific Gravity - Urine <= 1.005 (1.005-1.025); UMIC TRIGGER UACC YES; Urine Blood Negative (Negative); Urine Ketones Negative (Negative); Urine Protein Negative (Neg-Trace)
[2024-04-16 14:38] LABS: Bacteria Urine Trace (None Seen); Hyaline Casts Urine 0-2 /LPF (0-2); RBC Urine 0-2 /HPF (0-2); UACC Culture Trigger YES
[2024-04-16 14:46] LABS: Amphetamine Screen Urine Not Detected (Not Detect); Barbiturates, Urine Not Detected (Not Detect); Benzodiazepines Screen Urine Not Detected (Not Detect); Buprenorphine Scr Not Detected (Not Detect); Cannabinoid Screen Urine Not Detected (Not Detect); Cocaine Screen Urine Not Detected (Not Detect); Fentanyl, urine Not Detected (Not Detect); Methadone Screen, Urine Not Detected (Not Detect); Opiate Screen Urine Not Detected (Not Detect); Oxycodone Screen Urine Not Detected (Not Detect); Phencyclidine Screen Urine Not Detected (Not Detect)
[2024-04-16 15:09] LABS: MANUAL DIFF FLAG NO
[2024-04-16 15:10] LABS: Basophils Absolute Auto 0.1 X10*3/uL (0.0-0.2); Basophils Percent Auto 0.6 % (0-2); Eosinophils Absolute Auto 0.2 X10*3/uL (0.0-0.4); Eosinophils Percent Auto 1.1 % (0-4); Hematocrit 38.1 % (37.0-47.0); Hemoglobin 11.7 g/dl (12.0-16.0); Imm Gran Abs Auto 0.05 X10*3/uL (0.00-0.03); Imm Gran Pct Auto 0.3 % (0.0-0.4); Lymphocytes Absolute Auto 1.4 X10*3/uL (1.2-4.9); Lymphocytes Percent Auto 9.5 % (20-40); Mean Corpuscular HGB Conc 30.7 g/dl (31.0-35.0); Mean Corpuscular Hemoglobin 21.7 pg (27.0-33.0); Mean Corpuscular Volume 70.7 fL (80.0-98.0); Mean Platelet Volume 9.6 fL (9.4-12.3); Monocytes Percent Auto 6.4 % (2-11); Neutrophils Absolute Auto 12.2 x10*3/uL (2.0-8.3); Neutrophils Percent Auto 82.1 % (45-73); Platelet Count 418 X10*3/uL (160-400); Red Blood Count 5.39 X10*6/uL (4.20-5.50); Red Cell Distribution Width 18.6 % (11.0-16.0); White Blood Count 14.9 X10*3/uL (4.8-10.8)
[2024-04-16 15:22] LABS: Lithium 0.43 mmol/L (0.60-1.20)
[2024-04-16 15:30] LABS: Alanine Aminotransferase 32 U/L (0-31); Alkaline Phosphatase 287 U/L (39-117); Anion Gap 16 (12-20); Aspartate Amino Transferase 26 U/L (5-31); Bilirubin Direct 0.1 mg/dL (0.0-0.5); Bilirubin Total 0.3 mg/dL (0.0-1.0); Blood Urea Nitrogen 23 mg/dL (9-16); Calcium 9.8 mg/dL (8.4-10.2); Carbon Dioxide 19 mmol/L (22-29); Chloride 108 mmol/L (96-108); Creatinine Clr Calc Pharmacy 61.5; Estimated Glomerular Filt Rate 52; Ethanol < 10 mg/dL; Glucose Random 276 mg/dL (60-115); Magnesium 1.8 mg/dL (1.6-2.6); Potassium 4.2 mmol/L (3.3-5.1); Sodium 139 mmol/L (135-145); Total Protein 7.6 g/dL (6.5-8.0)
--- NOTE | 2024-04-16 16:44 | PC.NURSE ---
RE; med rec This RN completed med rec with personal list from patient, she reports they are weaning down her dose of lithium so she is now on 150mg in am and 300mg at night. Medications cross verified with med hx in the computer
--- NOTE | 2024-04-16 22:43 | PHA.MEDREC ---
Addendum entered by Catie Bolanos RPh 04/17/24 10:47: Spoke to patient to confirm some med doses...topiramate 50 mg bid, oxcarbazepine 900 mg bid, colchicine 1.8 mg qam, prednisone 20 to 40 mg daily as needed for FMF episodes. Patient is due for xolair injection next sunday (she said she can reschedule it if unable to make it), she injects trulicity on saturdays (will have bring in med), emgality is due on april 30. She says she takes the control at night. Med rec was reviewed by [facility]. Original Note: Pharmacy Consult ? Medication Reconciliation Pharmacy has reviewed the medication reconciliation done by nursing. Utilized claims and home me list from nurse. Confirmed what I can with list given, however there are some claims that don't mach up. will have morning med re follow up in the morning.
[2024-04-16 23:50] VITALS: BP 159/87; PULSE 91; RESP 18; TEMP 36.8; O2SAT 97
[2024-04-17] MEDS: metFORMIN HCl 1,000 MG TABLET 1000 MG PO ×3 (00:24→21:37)
[2024-04-17] MEDS: Topiramate 25 MG TABLET 50 MG PO ×3 (00:24→21:33)
[2024-04-17] MEDS: Lithium Carbonate 300 MG CAPSULE PO ×2 (00:24→21:36)
[2024-04-17] MEDS: Atorvastatin Calcium 40 MG TABLET PO ×2 (00:25→21:37)
[2024-04-17] MEDS: lamoTRIgine 100 MG TABLET 200 MG PO ×2 (00:25→21:34)
[2024-04-17] MEDS: hydrOXYzine HCL 10 MG TABLET 40 MG PO ×2 (00:25→21:34)
[2024-04-17] MEDS: OXcarbazepine 300 MG TABLET 900 MG PO ×3 (00:25→21:37)
[2024-04-17] MEDS: Omeprazole 40 MG CAPSULE.DR PO ×2 (00:25→08:29)
[2024-04-17] MEDS: Melatonin 3 MG TABLET 9 MG PO ×2 (00:26→21:42)
[2024-04-17] MEDS: Montelukast Sodium 10 MG TABLET PO ×2 (00:26→21:36)
[2024-04-17] MEDS: Loratadine 10 MG TABLET PO ×3 (00:26→21:36)
[2024-04-17] MEDS: predniSONE 20 MG TABLET PO ×3 (00:34→18:09)
[2024-04-17 05:08] VITALS: BMI 29.3
[2024-04-17] MEDS: Levothyroxine Sodium 50 MCG TABLET PO (05:44)
--- NOTE | 2024-04-17 06:41 | PC.ADMIT ---
Pt is a 48 yo female admitted from [facility] for mood disorder related to recent changes in medications. Pt has history of Bipolar 1 for which she has been taking lithium for many years pt has CKD which has worsened causing need to taper off lithium, currently outpatient provider does not have alternative option. Pt reports rapid cycling through hypo and hypermanic states sometimes daily. Pt medical hx also significant for DM II, Nephrogenic Diabetes Insipidus (NDI), Primary immunodeficiency disorder, Asthma, Dyslipidemia, and Familial Mediterranean Fever (FMF). FMF causes recurring episodes of inflammation and fever for which patient is unable to use NSAIDS or acetaminophen, pt reports she will often sweat excessively at these times. Pt is pleasant, hyperverbal, cooperative, extremely knowledgeable during admission process. 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 Pt denies SI/HI/AVH, currently endorses anxiety and mild depression. Skin check remarkable for bruising related to recent medical care, multiple tattoos to various areas of body, VSS. Pt own medication control placed in pt own bin per pharmacy request - they will pick it up for verification and use.
[2024-04-17 07:00] VITALS: BMI 29.8
[2024-04-17 08:00] VITALS: BP 125/80; PULSE 102; RESP 18; TEMP 37.1; O2SAT 95
[2024-04-17] MEDS: Spironolactone 25 MG TABLET PO ×2 (08:30→21:34)
[2024-04-17] MEDS: Lithium Carbonate 300 MG TABLET 150 MG PO (08:36)
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
[2024-04-17 09:13] LABS: Lithium 0.41 mmol/L (0.60-1.20)
[2024-04-17 09:15] LABS: Alanine Aminotransferase 41 U/L (0-31); Albumin Level 4.2 g/dL (3.5-5.0); Alkaline Phosphatase 291 U/L (39-117); Anion Gap 18 (12-20); Aspartate Amino Transferase 43 U/L (5-31); Bilirubin Total 0.3 mg/dL (0.0-1.0); Blood Urea Nitrogen 25 mg/dL (9-16); Calcium 9.9 mg/dL (8.4-10.2); Carbon Dioxide 19 mmol/L (22-29); Chloride 105 mmol/L (96-108); Cholesterol 178 mg/dL (<200); Creatinine Clr Calc Pharmacy 52.4; Estimated Glomerular Filt Rate 43; Glucose Fasting 487 mg/dL (60-99); HDL Cholesterol 40 mg/dL (>40); LDL Cholesterol Calculated 103 mg/dL (<100); Potassium 4.7 mmol/L (3.3-5.1); Sodium 137 mmol/L (135-145); Total Protein 7.6 g/dL (6.5-8.0); Triglycerides 178 mg/dL (<150)
[2024-04-17] MEDS: Colchicine 0.6 MG TABLET 1.8 MG PO (09:38)
[2024-04-17] MEDS: Insulin Lispro 100 UNIT/ML 3 ML VIAL SUBCUT ×4 (09:47→21:38)
--- NOTE | 2024-04-17 12:02 | PM.EVENT ---
Event Note Date of Service: 04/17/24 Event Note: Patient is a 48-year-old female with a PMH significant for familial Mediterranean fever on p.r.n. prednisone cyclical vomiting syndrome, common variable immunodeficiency, papillary thyroid cancer s/p partial thyroidectomy and parathyroidectomy, rpv-yirrblb-hbiufplil type 2 diabetes, CKD 3, W[place], migraines, and bipolar disorder who was admitted to [facility] with hospitalist consult for diabetes management. Patient reports has been on metformin for many years. Previously on Trulicity and metformin until 2021 when Trulicity was stopped and switched to Januvia. Around September patient's sugars began increasing and pt was switched back to Trulicity. A few months ago patient began having GI upset and metformin was stopped for 3 weeks as a possible contributing factor. Pt's sugars then became uncontrollable. Metformin was resumed but has not yet achieved glycemic control. Further complicating matters the patient recently had an FMF exacerbation and started on a predisone taper and she did not take her last dose of Trulicity due to planned colonoscopy procedure. Pt's random glucose this morning 487. Received 10 units lispro and repeat 182. Patient reports that her plans to bring in her Trulicity medication, with next dose due in 2 days on Sunday. Plan: Pt's elevated sugars likely multifactorial: Secondary to steroid use, missing last Trulicity dose, and recent medication changes. For now will hold on giving long-acting insulin as pt plans on resuming home Trulity on Sunday. Continue metformin, home Trulicity, and sliding scale. If patient is unable to bring in home Trulicity then will start on 10 units Lantus at bedtime. Time Spent With Patient Time: Total time managing care of this patient today ____ minutes.
[2024-04-17 12:07] LABS: Glucose, Whole Blood 182 mg/dL (60-115)
[2024-04-17] MEDS: Magnesium Oxide 400 MG TABLET PO (12:33)
[2024-04-17 12:57] LABS: Estimated Average Glucose 189 mg/dL; Hemoglobin A1C 194.3402 umol/L; Hemoglobin A1c % 8.2 % (<6.0); Total Hemoglobin (HGBA1C) 2938.9009 umol/L
[2024-04-17] MEDS: lamoTRIgine 25 MG TABLET 50 MG PO (14:45)
[2024-04-17 17:27] LABS: Glucose, Whole Blood 252 mg/dL (60-115)
[2024-04-17] MEDS: hydrOXYzine HCL 25 MG TABLET PO (18:09)
[2024-04-17 20:00] VITALS: BP 122/79; PULSE 96; TEMP 36.7; O2SAT 98
[2024-04-17 21:27] LABS: Glucose, Whole Blood 330 mg/dL (60-115)
[2024-04-17] MEDS: Venlafaxine HCL 25 MG TABLET 50 MG PO (21:33)
[2024-04-17 21:34] VITALS: BP 122/79
[2024-04-17] MEDS: Gabapentin 100 MG CAPSULE PO (21:36)
[2024-04-17] MEDS: NORETHINDRONE 0.35 MG 1 EACH PO (22:29)
[2024-04-18] MEDS: Levothyroxine Sodium 50 MCG TABLET PO (05:09)
[2024-04-18] MEDS: predniSONE 20 MG TABLET PO ×2 (05:09→13:29)
[2024-04-18] MEDS: Omeprazole 40 MG CAPSULE.DR PO ×2 (07:08→13:00)
[2024-04-18 07:30] VITALS: BP 139/79; PULSE 112; RESP 16; TEMP 37.9; O2SAT 97
[2024-04-18 07:37] LABS: Glucose, Whole Blood 377 mg/dL (60-115)
--- NOTE | 2024-04-18 07:49 | PC.NURSE ---
Patient c/o chest pain at 0735 and said she feels shaky. She had eaten 2 containers of raisin bran with milk a short time ago. Vitals taken and charted. Ingrid Luz notified via [employer] Text. POC done, read 377 per glucometer. Patient awake and alert. Skin scan temperature 100.2. Pepper Garcia RN accepted report.
[2024-04-18 08:00] VITALS: BP 139/89; PULSE 106; RESP 16; TEMP 37.9; O2SAT 96
--- NOTE | 2024-04-18 08:03 | ECG_ITS ---
Test Reason : chest pain Blood Pressure : / mmHG Vent. Rate : 095 BPM Atrial Rate : 095 BPM P-R Int : 168 ms QRS Dur : 092 ms QT Int : 356 ms P-R-T Axes : 032 020 031 degrees QTc Int : 447 ms Normal sinus rhythm Normal ECG When compared with ECG of 01-FEB-2022 08:39, No significant change was found Referred By: Emma Wong Electronically Signed By:Jus Reece
[2024-04-18] MEDS: Insulin Lispro 100 UNIT/ML 3 ML VIAL SUBCUT ×3 (08:37→21:44)
[2024-04-18] MEDS: Gabapentin 100 MG CAPSULE PO (08:38)
[2024-04-18] MEDS: Lithium Carbonate 300 MG TABLET 150 MG PO (08:38)
[2024-04-18] MEDS: Spironolactone 25 MG TABLET PO ×2 (08:39→21:38)
[2024-04-18] MEDS: Colchicine 0.6 MG TABLET 1.8 MG PO (08:39)
[2024-04-18] MEDS: Ferrous Sulfate 324 MG TABLET.DR PO (08:39)
[2024-04-18] MEDS: metFORMIN HCl 1,000 MG TABLET 1000 MG PO ×2 (08:39→21:43)
[2024-04-18] MEDS: OXcarbazepine 300 MG TABLET 900 MG PO ×2 (08:39→21:42)
[2024-04-18] MEDS: Topiramate 25 MG TABLET 50 MG PO ×2 (08:39→21:37)
[2024-04-18] MEDS: Loratadine 10 MG TABLET PO ×2 (08:42→21:44)
[2024-04-18] MEDS: lamoTRIgine 25 MG TABLET 50 MG PO (08:42)
[2024-04-18] MEDS: hydrOXYzine HCL 50 MG TABLET PO (08:44)
[2024-04-18 08:53] LABS: Hematocrit 36.7 % (37.0-47.0); Hemoglobin 11.1 g/dl (12.0-16.0); Mean Corpuscular HGB Conc 30.2 g/dl (31.0-35.0); Mean Corpuscular Hemoglobin 21.3 pg (27.0-33.0); Mean Corpuscular Volume 70.3 fL (80.0-98.0); Mean Platelet Volume 10.2 fL (9.4-12.3); Platelet Count 380 X10*3/uL (160-400); Red Blood Count 5.22 X10*6/uL (4.20-5.50); Red Cell Distribution Width 18.6 % (11.0-16.0); White Blood Count 16.7 X10*3/uL (4.8-10.8)
[2024-04-18 09:05] LABS: Alanine Aminotransferase 36 U/L (0-31); Albumin Level 4.1 g/dL (3.5-5.0); Alkaline Phosphatase 268 U/L (39-117); Anion Gap 18 (12-20); Aspartate Amino Transferase 23 U/L (5-31); Bilirubin Total 0.3 mg/dL (0.0-1.0); Blood Urea Nitrogen 27 mg/dL (9-16); Calcium 9.8 mg/dL (8.4-10.2); Carbon Dioxide 19 mmol/L (22-29); Chloride 104 mmol/L (96-108); Creatinine Clr Calc Pharmacy 60.7; Estimated Glomerular Filt Rate 50; Glucose Random 440 mg/dL (60-115); Potassium 4.2 mmol/L (3.3-5.1); Sodium 137 mmol/L (135-145); Total Protein 7.6 g/dL (6.5-8.0)
[2024-04-18 09:11] LABS: Troponin-I High Sensitivity < 2.7 ng/L (<3.5-17.0)
[2024-04-18 10:41] LABS: Glucose, Whole Blood 369 mg/dL (60-115)
[2024-04-18 12:26] LABS: Glucose, Whole Blood 205 mg/dL (60-115)
[2024-04-18] MEDS: Insulin Glargine,Hum.rec.anlog 100 UNIT/ML 10 ML VIAL 10 UNIT SUBCUT (12:31)
[2024-04-18] MEDS: Magnesium Oxide 400 MG TABLET PO (13:00)
[2024-04-18 17:08] LABS: Glucose, Whole Blood 219 mg/dL (60-115)
[2024-04-18] MEDS: oxyCODONE HCl Immed Release 5 MG TABLET PO (18:12)
--- NOTE | 2024-04-18 18:41 | HO.PSYEVENT2 ---
Documented by User: Emma Wong APRN 04/18/24 18:43 Event Note Date of Service: 04/18/24 Psych On-Call Event Note: 745am. Received a text from Beth Macias RN. Pt c/o chest pain, 139/89 112 100.2 16 poc 377. Pt feeling shakey with chest pain. Tw was driving at the time and asked that TO be placed for stat EKG, Troponins, CBC, CMP and if sx increase hospitalist or rapid response call. Time Spent With Patient Time: Total time managing care of this patient today ____ minutes. Documented by User: Kevin Bravo MD 04/20/24 19:46 Event Note Date of Service: 04/20/24
--- NOTE | 2024-04-18 19:19 | P.PNPSI_ITS ---
Subjective Subjective Date of Service: 04/18/24 Reason For Visit: mood disorder Interim History: Met with patient; discussed with team Patient depressed but feels some benefit from being in the milieu and and supportive environment; tolerating increase Lamictal and gabapentin and agrees to titrating gabapentin further. Discussed whether or not to further taper off lithium; lithium as traditionally been helpful for patient's stability and wonder if patient may tolerate lower dose; will try to discuss with nephrology Mental Status Exam Mental Status Exam Narrative: Pt is alert and oriented; behavior is cooperative, friendly and calm; patient is not in distress; dressed in casual attire with unkempt hair but adequate hygiene; mood is described as depressed and affect congruent, downcast, intermittently tearful; TD present (Mouth/tongue movements) eye contact appropriate; Speech is normal rate, volume and prosody and not pressured; some psychomotor retardation present; thought process is organized, logical, linear and goal directed; Thought content is on tx; otherwise pertinent to relevant topics and without any delusional content, paranoid ideations or grandiosity; denies any SI/HI. There is no evidence of perceptual disturbance. Patients insight and judgment appear intact. Diagnostics Vital Signs (24Hr): Vital Signs - 24 hr 04/17/24 20:00 04/17/24 21:34 04/18/24 07:30 Temperature 98.1 F 100.2 F Pulse Rate 96 112 H Respiratory Rate 16 Blood Pressure 122/79 122/79 139/79 Pulse Oximetry 98 97 Oxygen Delivery Method Room Air 04/18/24 08:00 Temperature 100.2 F Pulse Rate 106 H Respiratory Rate 16 Blood Pressure 139/89 Pulse Oximetry 96 Oxygen Delivery Method Room Air BMI result Body Mass Index 29.8 Labs 04/18/24 08:28 04/18/24 08:28 Labs: Laboratory Results - last 48 hr 04/16/24 04/17/24 04/17/24 15:03 08:47 12:04 WBC RBC Hgb Hct MCV MCH MCHC RDW Plt Count MPV Absolute Nucleated RBC Nucleated RBC % (auto) Sodium 137 Potassium 4.7 Chloride 105 Carbon Dioxide 19 L Anion Gap 18 BUN 25 H Creatinine 1.32 Estim Creat Clear Calc 52.4 Estimated GFR 43 POC Glucose 182 H Random Glucose Fasting Glucose 487 H* Estimat Average Glucose 189 Hemoglobin A1c % 8.2 H Calcium 9.9 Total Bilirubin 0.3 AST 43 H ALT 41 H Alkaline Phosphatase 291 H Troponin I High Sens Total Protein 7.6 Albumin 4.2 Triglycerides 178 H Cholesterol 178 LDL Cholesterol, Calc 103 H HDL Cholesterol 40 L Box 0.41 L 04/17/24 04/17/24 04/18/24 17:22 21:19 07:33 WBC RBC Hgb Hct MCV MCH MCHC RDW Plt Count MPV Absolute Nucleated RBC Nucleated RBC % (auto) Sodium Potassium Chloride Carbon Dioxide Anion Gap BUN Creatinine Estim Creat Clear Calc Estimated GFR POC Glucose 252 H 330 H 377 H* Random Glucose Fasting Glucose Estimat Average Glucose Hemoglobin A1c % Calcium Total Bilirubin AST ALT Alkaline Phosphatase Troponin I High Sens Total Protein Albumin Triglycerides Cholesterol LDL Cholesterol, Calc HDL Cholesterol Box 04/18/24 04/18/24 04/18/24 08:28 10:31 12:22 WBC 16.7 H RBC 5.22 Hgb 11.1 L Hct 36.7 L MCV 70.3 L MCH 21.3 L MCHC 30.2 L RDW 18.6 H Plt Count 380 MPV 10.2 Absolute Nucleated RBC 0.000 Nucleated RBC % (auto) 0.0 Sodium 137 Potassium 4.2 Chloride 104 Carbon Dioxide 19 L Anion Gap 18 BUN 27 H Creatinine 1.15 Estim Creat Clear Calc 60.7 Estimated GFR 50 POC Glucose 369 H* 205 H Random Glucose 440 H* Fasting Glucose Estimat Average Glucose Hemoglobin A1c % Calcium 9.8 Total Bilirubin 0.3 AST 23 ALT 36 H Alkaline Phosphatase 268 H Troponin I High Sens < 2.7 Total Protein 7.6 Albumin 4.1 Triglycerides Cholesterol LDL Cholesterol, Calc HDL Cholesterol Box 04/18/24 16:55 WBC RBC Hgb Hct MCV MCH MCHC RDW Plt Count MPV Absolute Nucleated RBC Nucleated RBC % (auto) Sodium Potassium Chloride Carbon Dioxide Anion Gap BUN Creatinine Estim Creat Clear Calc Estimated GFR POC Glucose 219 H Random Glucose Fasting Glucose Estimat Average Glucose Hemoglobin A1c % Calcium Total Bilirubin AST ALT Alkaline Phosphatase Troponin I High Sens Total Protein Albumin Triglycerides Cholesterol LDL Cholesterol, Calc HDL Cholesterol Box Medications Medications Current Medications Acetaminophen (Acetaminophen 325 Mg Tablet) 650 mg PO Q6H PRN PRN Reason: Headache/Pain Mild Scale (1-3) Al Hydroxide/Mg Hydroxide (Magnesium Hydrox/Alum Hydrox 30 Ml Oral.Susp) 30 ml PO Q6H PRN PRN Reason: Heartburn/Nausea Albuterol/Ipratropium (Albuterol/Iprat 2.5/0.5mg 3 Ml Ampul.Neb) 3 ml INHALE Q6H PRN PRN Reason: Shortness of Breath Atorvastatin Calcium (Atorvastatin Calcium 40 Mg Tablet) 40 mg PO BEDTIME [facility] Last Admin: 04/17/24 21:37 Dose: 40 mg Colchicine (Colchicine 0.6 Mg Tablet) 1.8 mg PO DAILY [facility] Last Admin: 04/18/24 08:39 Dose: 1.8 mg Docusate Sodium (Docusate Sodium 100 Mg Capsule) 100 mg PO BID PRN PRN Reason: constipation Ferrous Sulfate (Ferrous Sulfate 324 Mg Tablet.Dr) 324 mg PO DAILY [facility] Last Admin: 04/18/24 08:39 Dose: 324 mg Gabapentin (Gabapentin 300 Mg Capsule) 300 mg PO BID [facility] Glucose (Glucose Gel 15 Gm Gel..Gram.) 15 gm PO Q15M PRN; Protocol PRN Reason: per Hypoglycemia Standing Ord. Hydroxyzine HCl (Hydroxyzine Hcl 25 Mg Tablet) 25 mg PO Q6H PRN PRN Reason: Anxiety Last Admin: 04/17/24 18:09 Dose: 25 mg Hydroxyzine HCl (Hydroxyzine Hcl 10 Mg Tablet) 40 mg PO BEDTIME [facility] Last Admin: 04/17/24 21:34 Dose: 40 mg Hydroxyzine HCl (Hydroxyzine Hcl 50 Mg Tablet) 50 mg PO DAILY PRN PRN Reason: Anxiety Last Admin: 04/18/24 08:44 Dose: 50 mg Dextrose (D10) 250 mls @ 750 mls/hr IV Q15M PRN; Protocol PRN Reason: per Hypoglycemia Standing Ord. Insulin Human Lispro (Insulin Lispro 100 Unit/Ml 3 Ml Vial) 0 unit SUBCUT QIDACHS [facility]; Protocol Last Admin: 04/18/24 17:13 Dose: 4 unit Lamotrigine (Lamotrigine 100 Mg Tablet) 200 mg PO BEDTIME [facility] Last Admin: 04/17/24 21:34 Dose: 200 mg Lamotrigine (Lamotrigine 25 Mg Tablet) 50 mg PO DAILY [facility] Last Admin: 04/18/24 08:42 Dose: 50 mg Levothyroxine Sodium (Levothyroxine Sodium 50 Mcg Tablet) 50 mcg PO DAILY@0600 [facility] Last Admin: 04/18/24 05:09 Dose: 50 mcg Box Carbonate (Box Carbonate 300 Mg Tablet) 150 mg PO DAILY [facility] Last Admin: 04/18/24 08:38 Dose: 150 mg Box Carbonate (Box Carbonate 300 Mg Capsule) 300 mg PO BEDTIME [facility] Last Admin: 04/17/24 21:36 Dose: 300 mg Loperamide HCl (Loperamide Hcl 2 Mg Capsule) 4 mg PO Q6H PRN PRN Reason: LOOSE STOOL Loratadine (Loratadine 10 Mg Tablet) 10 mg PO BID [facility] Last Admin: 04/18/24 08:42 Dose: 10 mg Magnesium Hydroxide (Milk Of Magnesia 30 Ml Oral.Susp) 30 ml PO DAILY PRN PRN Reason: Constipation Magnesium Oxide (Magnesium Oxide 400 Mg Tablet) 400 mg PO DAILY@1200 [facility] Last Admin: 04/18/24 13:00 Dose: 400 mg Melatonin (Melatonin 3 Mg Tablet) 9 mg PO BEDTIME PRN PRN Reason: Insomnia Last Admin: 04/17/24 21:42 Dose: 9 mg Metformin HCl (Metformin Hcl 1,000 Mg Tablet) 1,000 mg PO BID [facility] Last Admin: 04/18/24 08:39 Dose: 1,000 mg Montelukast Sodium (Montelukast Sodium 10 Mg Tablet) 10 mg PO BEDTIME [facility] Last Admin: 04/17/24 21:36 Dose: 10 mg Nicotine Polacrilex (Nicotine Polacrilex 2 Mg Gum) 4 mg BUCCAL Q2H PRN PRN Reason: Nicotine Cravings Non-Formulary Medication (Rizatriptan) 10 mg PO Q2-4H PRN PRN Reason: Migraine Headache Patient Own Medication ( Norethindrone 0.35mg Tabs {Incassia}) 1 each PO BEDTIME [facility] Last Admin: 04/17/24 22:29 Dose: 1 each Patient Own Medication [ Dulaglutide ( Trulicity 0.75mg/0. 5ml)] 1 each SUBCUT [facility] Omeprazole (Omeprazole 40 Mg Capsule.Dr) 40 mg PO BID@0630,1630 [facility] Last Admin: 04/18/24 13:00 Dose: 40 mg Ondansetron HCl (Ondansetron Odt 4 Mg Tab.Rapdis) 4 mg TRANSLINGU Q8H PRN PRN Reason: Nausea Oxcarbazepine (Oxcarbazepine 300 Mg Tablet) 900 mg PO BID [facility] Last Admin: 04/18/24 08:39 Dose: 900 mg Oxycodone HCl (Oxycodone Hcl Immed Release 5 Mg Tablet) 5 mg PO DAILY PRN PRN Reason: severe pain Last Admin: 04/18/24 18:12 Dose: 5 mg Prednisone (Prednisone 20 Mg Tablet) 20 mg PO BID PRN PRN Reason: bowel inflamation (per pt) Last Admin: 04/18/24 13:29 Dose: 20 mg Simethicone (Simethicone 80 Mg Tab.Chew) 80 mg PO QIDWMHS PRN PRN Reason: flatulance Spironolactone (Spironolactone 25 Mg Tablet) 25 mg PO BID [facility] Last Admin: 04/18/24 08:39 Dose: 25 mg Topiramate (Topiramate 25 Mg Tablet) 50 mg PO BID [facility] Last Admin: 04/18/24 08:39 Dose: 50 mg Trazodone HCl (Trazodone Hcl 50 Mg Tablet) 50 mg PO BEDTIME MRX1 PRN PRN Reason: Insomnia Venlafaxine HCl (Venlafaxine Hcl 25 Mg Tablet) 75 mg PO BEDTIME [facility] Allergies Allergies Allergy/AdvReac Type Severity Reaction Status Date / Time adhesive [ADHESIVE] Allergy Intermediate BLISTER Verified 04/16/24 13:55 fluticasone [From FLONASE] Allergy Unknown unknown Verified 04/16/24 13:55 meperidine [Demerol] Allergy Unknown vomit Verified 04/16/24 13:55 metoclopramide [From REGLAN] Allergy Unknown DIPLOPIA Verified 04/16/24 13:55 transparent dressing Allergy Unknown rash Verified 04/16/24 13:55 morphine [MORPHINE] AdvReac Severe NAUSEA & Verified 04/16/24 13:55 VOMITING TEGADERM BANDAGE Allergy Intermediate RASH Uncoded 04/16/24 13:55 morphine Allergy Unknown vomit Uncoded 04/16/24 13:55 tape Allergy Unknown rash Uncoded 04/16/24 13:55 From DEMEROL AdvReac Severe NAUSEA & Uncoded 04/16/24 13:55 VOMITING Assessment & Plan Assessment & Plan (1) Bipolar disorder: Status: Acute Code(s): F31.9 - Bipolar disorder, unspecified (2) PTSD (post-traumatic stress disorder): Status: Acute Code(s): F43.10 - Post-traumatic stress disorder, unspecified Plan HPI: Patient is a 48-year-old female with history of bipolar disorder, PTSD, and multiple medical comorbidities including familial Mediterranean fever (FMF), IgG deficiency, CKD, Walters and cyclic vomiting syndrome who presents for worsening depression as she is being tapered off 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 Patient reports that over the past weeks, she has been rapid cycling with manic/depressive episodes that flare and recede daily; she says she notices increased irritability and emotionality; patient says she has chronic depression and little has ever made it better. Patient is looking for help with medication management given medical comorbidities and being tapered off lithium. Patient denies any SI or HI or AVH. Denies any drug or alcohol use. -reviewed history extensively -reviewed medication trials -reviewed medical comorbidities Impression: Patient reports she was diagnosed with bipolar disorder when she was 21 years old and was going through a traumatic event in her life. Restaurant Associate reviewed her history of manic episodes and it is hard to piece together an actual manic episodes that includes typical criteria associated with bipolar manic episodes; patient says that it is more of an internal feeling of agitation and with racing thoughts and impulsivity. Restaurant Associate discussed how PTSD and trauma history can often mimic a manic episode and that patient's recent description of rapid cycling that resolves with an hours, sounds much more like symptoms of PTSD and borderline traits (pt has had years of DBT) than it does a manic episode. During interview patient said she feels like she is going through hypomanic episode currently though procedure writer points out she currently presents without any obvious symptoms of [place]. Perimenapausal symptoms may also be contributory. That said, this is currently speculation and patient will remain with bipolar diagnosis as she has carried this diagnosis for 20 years and at this point it is premature to undiagnose it Patient does not want anymore trials of antipsychotics since she has tardive dyskinesia which is clearly present. -Discussed numerous options including ECT and Depakote, risks/side effects; given risk of liver by Depakote, patient would 1st like to have a trial of increasing to higher dose of Lamictal (reports used to be on 600 mg) and restart gabapentin to which procedure writer agrees. -although patient is without SI, she has multiple significant and complex medical comorbidities that make medication adjustments complicated and which require immediate monitoring both kidney and liver function; this can only be done in the inpatient setting. Given risks to liver procedure writer agrees to 1st see if adjusting Lamictal (which though uncommon, can also affect liver) and gabapentin can be effective before trying Depakote Hospital course: 12/6 Patient depressed but feels some benefit from being in the milieu and and supportive environment; tolerating increase Lamictal and gabapentin and agrees to titrating gabapentin further. Discussed whether or not to further taper off lithium; lithium as traditionally been helpful for patient's stability and wonder if patient may tolerate lower dose; will try to discuss with nephrology -patient reports increasing abdominal pain; reviewed Mass Pat and patient intermittently is prescribed oxycodone since she can not take Tylenol or NSAIDs; will add this as a daily p.r.n. Plan: CV Q15 Add oxycodone 5 mg daily p.r.n. for severe abdominal pain (patient has no history of drug or alcohol abuse) Increase Lamictal by 50 mg daily Continue Lamictal 200mg qhs Increase to gabapentin 300 mg b.i.d. (she has been on the past; will titrate); will monitor kidney functioning -continue lithium dose 50 mg in the morning and 300 mg q.h.s.; outpatient tapering and will discontinue NO acetaminophen NO NSAIDs Medical comorbidities: Familial Mediterranean fever (FMF): Takes prednisone 20 mg b.i.d. p.r.n. 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
[2024-04-18 20:00] VITALS: BP 135/89; PULSE 104; RESP 18; TEMP 37.8; O2SAT 97
[2024-04-18] MEDS: NORETHINDRONE 0.35 MG 1 EACH PO (21:36)
[2024-04-18] MEDS: hydrOXYzine HCL 10 MG TABLET 40 MG PO (21:38)
[2024-04-18] MEDS: Atorvastatin Calcium 40 MG TABLET PO (21:39)
[2024-04-18] MEDS: Melatonin 3 MG TABLET 9 MG PO (21:40)
[2024-04-18] MEDS: Lithium Carbonate 300 MG CAPSULE PO (21:43)
[2024-04-18] MEDS: Montelukast Sodium 10 MG TABLET PO (21:43)
[2024-04-18] MEDS: Gabapentin 300 MG CAPSULE PO (21:44)
[2024-04-18] MEDS: Venlafaxine HCL 25 MG TABLET 75 MG PO (21:44)
[2024-04-18] MEDS: lamoTRIgine 100 MG TABLET 200 MG PO (21:44)
[2024-04-18 23:42] LABS: Glucose, Whole Blood 408 mg/dL (60-115)
[2024-04-19 05:35] LABS: Glucose, Whole Blood 120 mg/dL (60-115)
[2024-04-19] MEDS: Levothyroxine Sodium 50 MCG TABLET PO (05:35)
[2024-04-19] MEDS: Omeprazole 40 MG CAPSULE.DR PO (05:35)
[2024-04-19] MEDS: Docusate Sodium 100 MG CAPSULE PO ×2 (06:51→14:50)
[2024-04-19 08:44] VITALS: BP 122/73; PULSE 88; RESP 16; TEMP 36.4; O2SAT 97
[2024-04-19] MEDS: [UNRECOGNIZED DRUG - OTHER] 1 EACH SUBCUT (09:39)
[2024-04-19] MEDS: Colchicine 0.6 MG TABLET 1.8 MG PO (09:40)
[2024-04-19] MEDS: Lithium Carbonate 300 MG TABLET 150 MG PO (09:40)
[2024-04-19] MEDS: Gabapentin 300 MG CAPSULE PO ×2 (09:40→21:02)
[2024-04-19] MEDS: OXcarbazepine 300 MG TABLET 900 MG PO ×2 (09:40→21:02)
[2024-04-19] MEDS: metFORMIN HCl 1,000 MG TABLET 1000 MG PO ×2 (09:40→21:01)
[2024-04-19] MEDS: Topiramate 25 MG TABLET 50 MG PO ×2 (09:40→21:00)
[2024-04-19] MEDS: Loratadine 10 MG TABLET PO ×2 (09:41→21:02)
[2024-04-19] MEDS: lamoTRIgine 25 MG TABLET 50 MG PO (09:41)
[2024-04-19] MEDS: Spironolactone 25 MG TABLET PO ×2 (09:41→21:00)
--- NOTE | 2024-04-19 09:56 | P.PNPSI_ITS ---
Subjective Subjective Date of Service: 04/19/24 Reason For Visit: mood disorder Interim History: Met with patient; discussed with team Patient reports that she is feeling a little better still. Had a bowel movement for which she is relieved and said that without prednisone her blood sugars were much better. Discussed medication management and patient agrees to discontinue morning dose of lithium since this is the planned taper. Patient talking a little faster today and will continue to monitor for manic symptoms with decreased lithium Mental Status Exam Mental Status Exam Narrative: Pt is alert and oriented; behavior is cooperative, friendly, more talkative; patient is not in distress; dressed in casual attire with unkempt hair but adequate hygiene; mood is described as I feel better and affect congruent, brighter; TD present (Mouth/tongue movements) eye contact appropriate; Speech is a little verbose and mildly faster rate; normal volume and prosody; no psychomotor retardation present; thought process is organized, and logical but a little repetitive; Thought content is on tx; otherwise pertinent to relevant topics and without any delusional content, paranoid ideations or grandiosity; denies any SI/HI. There is no evidence of perceptual disturbance. Patients insight and judgment appear intact. Diagnostics Vital Signs (24Hr): Vital Signs - 24 hr 04/18/24 20:00 04/19/24 08:44 Temperature 100.0 F 97.5 F Pulse Rate 104 H 88 Respiratory Rate 18 16 Blood Pressure 135/89 122/73 Pulse Oximetry 97 97 Oxygen Delivery Method Room Air Room Air BMI result Body Mass Index 29.8 Labs 04/18/24 08:28 04/18/24 08:28 Labs: Laboratory Results - last 48 hr 04/16/24 04/17/24 04/17/24 15:03 12:04 17:22 WBC RBC Hgb Hct MCV MCH MCHC RDW Plt Count MPV Absolute Nucleated RBC Nucleated RBC % (auto) Sodium Potassium Chloride Carbon Dioxide Anion Gap BUN Creatinine Estim Creat Clear Calc Estimated GFR POC Glucose 182 H 252 H Random Glucose Estimat Average Glucose 189 Hemoglobin A1c % 8.2 H Calcium Total Bilirubin AST ALT Alkaline Phosphatase Troponin I High Sens Total Protein Albumin 04/17/24 04/18/24 04/18/24 21:19 07:33 08:28 WBC 16.7 H RBC 5.22 Hgb 11.1 L Hct 36.7 L MCV 70.3 L MCH 21.3 L MCHC 30.2 L RDW 18.6 H Plt Count 380 MPV 10.2 Absolute Nucleated RBC 0.000 Nucleated RBC % (auto) 0.0 Sodium 137 Potassium 4.2 Chloride 104 Carbon Dioxide 19 L Anion Gap 18 BUN 27 H Creatinine 1.15 Estim Creat Clear Calc 60.7 Estimated GFR 50 POC Glucose 330 H 377 H* Random Glucose 440 H* Estimat Average Glucose Hemoglobin A1c % Calcium 9.8 Total Bilirubin 0.3 AST 23 ALT 36 H Alkaline Phosphatase 268 H Troponin I High Sens < 2.7 Total Protein 7.6 Albumin 4.1 04/18/24 04/18/24 04/18/24 10:31 12:22 16:55 WBC RBC Hgb Hct MCV MCH MCHC RDW Plt Count MPV Absolute Nucleated RBC Nucleated RBC % (auto) Sodium Potassium Chloride Carbon Dioxide Anion Gap BUN Creatinine Estim Creat Clear Calc Estimated GFR POC Glucose 369 H* 205 H 219 H Random Glucose Estimat Average Glucose Hemoglobin A1c % Calcium Total Bilirubin AST ALT Alkaline Phosphatase Troponin I High Sens Total Protein Albumin 04/18/24 04/19/24 21:16 05:30 WBC RBC Hgb Hct MCV MCH MCHC RDW Plt Count MPV Absolute Nucleated RBC Nucleated RBC % (auto) Sodium Potassium Chloride Carbon Dioxide Anion Gap BUN Creatinine Estim Creat Clear Calc Estimated GFR POC Glucose 408 H* 120 H Random Glucose Estimat Average Glucose Hemoglobin A1c % Calcium Total Bilirubin AST ALT Alkaline Phosphatase Troponin I High Sens Total Protein Albumin Medications Medications Current Medications Acetaminophen (Acetaminophen 325 Mg Tablet) 650 mg PO Q6H PRN PRN Reason: Headache/Pain Mild Scale (1-3) Al Hydroxide/Mg Hydroxide (Magnesium Hydrox/Alum Hydrox 30 Ml Oral.Susp) 30 ml PO Q6H PRN PRN Reason: Heartburn/Nausea Albuterol/Ipratropium (Albuterol/Iprat 2.5/0.5mg 3 Ml Ampul.Neb) 3 ml INHALE Q6H PRN PRN Reason: Shortness of Breath Atorvastatin Calcium (Atorvastatin Calcium 40 Mg Tablet) 40 mg PO BEDTIME [facility] Last Admin: 04/18/24 21:39 Dose: 40 mg Colchicine (Colchicine 0.6 Mg Tablet) 1.8 mg PO DAILY [facility] Last Admin: 04/19/24 09:40 Dose: 1.8 mg Docusate Sodium (Docusate Sodium 100 Mg Capsule) 100 mg PO BID PRN PRN Reason: constipation Last Admin: 04/19/24 06:51 Dose: 100 mg Ferrous Sulfate (Ferrous Sulfate 324 Mg Tablet.Dr) 324 mg PO DAILY [facility] Last Admin: 04/19/24 09:45 Dose: Not Given Gabapentin (Gabapentin 300 Mg Capsule) 300 mg PO BID [facility] Last Admin: 04/19/24 09:40 Dose: 300 mg Glucose (Glucose Gel 15 Gm Gel..Gram.) 15 gm PO Q15M PRN; Protocol PRN Reason: per Hypoglycemia Standing Ord. Hydroxyzine HCl (Hydroxyzine Hcl 25 Mg Tablet) 25 mg PO Q6H PRN PRN Reason: Anxiety Last Admin: 04/17/24 18:09 Dose: 25 mg Hydroxyzine HCl (Hydroxyzine Hcl 10 Mg Tablet) 40 mg PO BEDTIME [facility] Last Admin: 04/18/24 21:38 Dose: 40 mg Hydroxyzine HCl (Hydroxyzine Hcl 50 Mg Tablet) 50 mg PO DAILY PRN PRN Reason: Anxiety Last Admin: 04/18/24 08:44 Dose: 50 mg Dextrose (D10) 250 mls @ 750 mls/hr IV Q15M PRN; Protocol PRN Reason: per Hypoglycemia Standing Ord. Insulin Human Lispro (Insulin Lispro 100 Unit/Ml 3 Ml Vial) 0 unit SUBCUT QIDACHS [facility]; Protocol Last Admin: 04/19/24 09:48 Dose: Not Given Lamotrigine (Lamotrigine 100 Mg Tablet) 200 mg PO BEDTIME [facility] Last Admin: 04/18/24 21:44 Dose: 200 mg Lamotrigine (Lamotrigine 25 Mg Tablet) 50 mg PO DAILY [facility] Last Admin: 04/19/24 09:41 Dose: 50 mg Levothyroxine Sodium (Levothyroxine Sodium 50 Mcg Tablet) 50 mcg PO DAILY@0600 [facility] Last Admin: 04/19/24 05:35 Dose: 50 mcg [place] Carbonate ([place] Carbonate 300 Mg Tablet) 150 mg PO DAILY [facility] Last Admin: 04/19/24 09:40 Dose: 150 mg [place] Carbonate ([place] Carbonate 300 Mg Capsule) 300 mg PO BEDTIME [facility] Last Admin: 04/18/24 21:43 Dose: 300 mg Loperamide HCl (Loperamide Hcl 2 Mg Capsule) 4 mg PO Q6H PRN PRN Reason: LOOSE STOOL Loratadine (Loratadine 10 Mg Tablet) 10 mg PO BID [facility] Last Admin: 04/19/24 09:41 Dose: 10 mg Magnesium Hydroxide (Milk Of Magnesia 30 Ml Oral.Susp) 30 ml PO DAILY PRN PRN Reason: Constipation Magnesium Oxide (Magnesium Oxide 400 Mg Tablet) 400 mg PO DAILY@1200 [facility] Last Admin: 04/18/24 13:00 Dose: 400 mg Melatonin (Melatonin 3 Mg Tablet) 9 mg PO BEDTIME PRN PRN Reason: Insomnia Last Admin: 04/18/24 21:40 Dose: 9 mg Metformin HCl (Metformin Hcl 1,000 Mg Tablet) 1,000 mg PO BID [facility] Last Admin: 04/19/24 09:40 Dose: 1,000 mg Montelukast Sodium (Montelukast Sodium 10 Mg Tablet) 10 mg PO BEDTIME [facility] Last Admin: 04/18/24 21:43 Dose: 10 mg Nicotine Polacrilex (Nicotine Polacrilex 2 Mg Gum) 4 mg BUCCAL Q2H PRN PRN Reason: Nicotine Cravings Non-Formulary Medication (Rizatriptan) 10 mg PO Q2-4H PRN PRN Reason: Migraine Headache Patient Own Medication ( Norethindrone 0.35mg Tabs {Incassia}) 1 each PO BEDTIME [facility] Last Admin: 04/18/24 21:36 Dose: 1 each Patient Own Medication [ Dulaglutide ( Trulicity 0.75mg/0. 5ml)] 1 each SUBCUT Sa [facility] Last Admin: 04/19/24 09:39 Dose: 1 each Omeprazole (Omeprazole 40 Mg Capsule.Dr) 40 mg PO BID@0630,1630 [facility] Last Admin: 04/19/24 05:35 Dose: 40 mg Ondansetron HCl (Ondansetron Odt 4 Mg Tab.Rapdis) 4 mg TRANSLINGU Q8H PRN PRN Reason: Nausea Oxcarbazepine (Oxcarbazepine 300 Mg Tablet) 900 mg PO BID [facility] Last Admin: 04/19/24 09:40 Dose: 900 mg Oxycodone HCl (Oxycodone Hcl Immed Release 5 Mg Tablet) 5 mg PO DAILY PRN PRN Reason: severe pain Last Admin: 04/18/24 18:12 Dose: 5 mg Prednisone (Prednisone 20 Mg Tablet) 20 mg PO BID PRN PRN Reason: bowel inflamation (per pt) Last Admin: 04/18/24 13:29 Dose: 20 mg Simethicone (Simethicone 80 Mg Tab.Chew) 80 mg PO QIDWMHS PRN PRN Reason: flatulance Spironolactone (Spironolactone 25 Mg Tablet) 25 mg PO BID [facility] Last Admin: 04/19/24 09:41 Dose: 25 mg Topiramate (Topiramate 25 Mg Tablet) 50 mg PO BID [facility] Last Admin: 04/19/24 09:40 Dose: 50 mg Trazodone HCl (Trazodone Hcl 50 Mg Tablet) 50 mg PO BEDTIME MRX1 PRN PRN Reason: Insomnia Venlafaxine HCl (Venlafaxine Hcl 25 Mg Tablet) 75 mg PO BEDTIME [facility] Last Admin: 04/18/24 21:44 Dose: 75 mg Allergies Allergies Allergy/AdvReac Type Severity Reaction Status Date / Time adhesive [ADHESIVE] Allergy Intermediate BLISTER Verified 04/16/24 13:55 fluticasone [From FLONASE] Allergy Unknown unknown Verified 04/16/24 13:55 meperidine [Demerol] Allergy Unknown vomit Verified 04/16/24 13:55 metoclopramide [From REGLAN] Allergy Unknown DIPLOPIA Verified 04/16/24 13:55 transparent dressing Allergy Unknown rash Verified 04/16/24 13:55 morphine [MORPHINE] AdvReac Severe NAUSEA & Verified 04/16/24 13:55 VOMITING TEGADERM BANDAGE Allergy Intermediate RASH Uncoded 04/16/24 13:55 morphine Allergy Unknown vomit Uncoded 04/16/24 13:55 tape Allergy Unknown rash Uncoded 04/16/24 13:55 From DEMEROL AdvReac Severe NAUSEA & Uncoded 04/16/24 13:55 VOMITING Assessment & Plan Assessment & Plan (1) Bipolar disorder: Status: Acute Code(s): F31.9 - Bipolar disorder, unspecified (2) PTSD (post-traumatic stress disorder): Status: Acute Code(s): F43.10 - Post-traumatic stress disorder, unspecified Plan HPI: Patient is a 48-year-old female with history of bipolar disorder, PTSD, and multiple medical comorbidities including familial Mediterranean fever (FMF), IgG deficiency, CKD, Walters and cyclic vomiting syndrome who presents for worsening depression as she is being tapered off lithium by belt glass sander. Patient reports that over the past weeks, she has been rapid cycling with manic/depressive episodes that flare and recede daily; she says she notices increased irritability and emotionality; patient says she has chronic depression and little has ever made it better. Patient is looking for help with medication management given medical comorbidities and being tapered off lithium. Patient denies any SI or HI or AVH. Denies any drug or alcohol use. -reviewed history extensively -reviewed medication trials -reviewed medical comorbidities Impression: Patient reports she was diagnosed with bipolar disorder when she was 21 years old and was going through a traumatic event in her life. Liver Trimmer reviewed her history of manic episodes and it is hard to piece together an actual manic episodes that includes typical criteria associated with bipolar manic episodes; patient says that it is more of an internal feeling of agitation and with racing thoughts and impulsivity. Liver Trimmer discussed how PTSD and trauma history can often mimic a manic episode and that patient's recent description of rapid cycling that resolves with an hours, sounds much more like symptoms of PTSD and borderline traits (pt has had years of DBT) than it does a manic episode. During interview patient said she feels like she is going through hypomanic episode currently though conventional underwriter points out she currently presents without any obvious symptoms of [place]. Perimenapausal symptoms may also be contributory. That said, this is currently speculation and patient will remain with bipolar diagnosis as she has carried this diagnosis for 20 years and at this point it is premature to undiagnose it Patient does not want anymore trials of antipsychotics since she has tardive dyskinesia which is clearly present. -Discussed numerous options including ECT and Depakote, risks/side effects; given risk of liver by Depakote, patient would 1st like to have a trial of increasing to higher dose of Lamictal (reports used to be on 600 mg) and restart gabapentin to which conventional underwriter agrees. Hospital course: 12 Patient depressed but feels some benefit from being in the milieu and and supportive environment; tolerating increase Lamictal and gabapentin and agrees to titrating gabapentin further. Discussed whether or not to further taper off lithium; lithium as traditionally been helpful for patient's stability and wonder if patient may tolerate lower dose; will try to discuss with nephrology -patient reports increasing abdominal pain; reviewed Mass Pat and patient intermittently is prescribed oxycodone since she can not take Tylenol or NSAIDs; will add this as a daily p.r.n. 04/19 Patient reports that she is feeling a little better still. Had a bowel movement for which she is relieved and said that without prednisone her blood sugars were much better. Discussed medication management and patient agrees to discontinue morning dose of lithium since this is the planned taper. Patient very much wants to attend partial; says benefiting from supportive milieu -Patient affect is definitely brighter and she is talking a little faster today and will continue to monitor for manic symptoms with decreased lithium Impression: Patient has multiple significant and complex medical comorbidities that make medication adjustments complicated and which require immediate monitoring both kidney and liver function; this can only be done in the inpatient setting. Also, since tapering down lithium, need to monitor for triggered manic episode which also needs to be done in the hospital. -Given risks to liver conventional underwriter agrees to 1st see if adjusting Lamictal (which though uncommon, can also affect liver) and gabapentin can be effective before trying Depakote Plan: CV Q15 Discontinue lithium 150 a.m. dose; this outpt plan to taper off fully and discontinue lithium Continue lithium ER 300 mg q.h.s.; Add oxycodone 5 mg daily p.r.n. for severe abdominal pain (patient has no history of drug or alcohol abuse) Continue Lamictal by 50 mg daily Continue Lamictal 200mg qhs Continue gabapentin 300 mg b.i.d. (she has been on the past; will titrate); will monitor kidney functioning NO acetaminophen NO NSAIDs Medical comorbidities: Familial Mediterranean fever (FMF): Takes prednisone 20 mg b.i.d. p.r.n. 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
[2024-04-19] MEDS: polyethylene glycoL 3350 17 GM POWD.PACK PO (11:37)
[2024-04-19] MEDS: Magnesium Oxide 400 MG TABLET PO (11:37)
[2024-04-19 11:40] LABS: Glucose, Whole Blood 270 mg/dL (60-115)
[2024-04-19] MEDS: Insulin Lispro 100 UNIT/ML 3 ML VIAL SUBCUT ×3 (12:55→20:58)
[2024-04-19] MEDS: oxyCODONE HCl Immed Release 5 MG TABLET PO (17:14)
--- NOTE | 2024-04-19 18:49 | PC.NURSE ---
pt reports right dorsal foot pain rated 8/10. Ankle is slightly edematous. Pt denies injury. Provider AL notified via [employer]. Currently awaiting orders.
[2024-04-19 20:00] VITALS: BP 132/79; PULSE 95; RESP 18; O2SAT 96
[2024-04-19 20:41] LABS: Glucose, Whole Blood 221 mg/dL (60-115)
[2024-04-19 20:41] LABS: Glucose, Whole Blood 269 mg/dL (60-115)
--- NOTE | 2024-04-19 20:47 | PC.NURSE ---
Pt provided education regarding ibuprofen and CKD, provider contacted for verification per pt request, pt refusing med at this time.
[2024-04-19] MEDS: NORETHINDRONE 0.35 MG 1 EACH PO (20:58)
[2024-04-19] MEDS: Lithium Carbonate 300 MG CAPSULE PO (21:00)
[2024-04-19] MEDS: lamoTRIgine 100 MG TABLET 200 MG PO (21:01)
[2024-04-19] MEDS: hydrOXYzine HCL 10 MG TABLET 40 MG PO (21:01)
[2024-04-19] MEDS: Venlafaxine HCL 25 MG TABLET 75 MG PO (21:02)
[2024-04-19] MEDS: Atorvastatin Calcium 40 MG TABLET PO (21:02)
[2024-04-19] MEDS: Montelukast Sodium 10 MG TABLET PO (21:02)
[2024-04-19] MEDS: Ibuprofen 800 MG TABLET PO (21:17)
[2024-04-20] MEDS: SUMAtriptan succinate 50 MG TABLET PO (05:47)
[2024-04-20] MEDS: Levothyroxine Sodium 50 MCG TABLET PO (05:48)
[2024-04-20 07:57] LABS: Glucose, Whole Blood 198 mg/dL (60-115)
[2024-04-20 08:16] LABS: Lithium 0.34 mmol/L (0.60-1.20)
[2024-04-20 08:20] VITALS: BP 121/80; PULSE 82; RESP 16; TEMP 36.8; O2SAT 97
[2024-04-20 08:24] LABS: Alanine Aminotransferase 37 U/L (0-31); Alkaline Phosphatase 262 U/L (39-117); Anion Gap 15 (12-20); Aspartate Amino Transferase 35 U/L (5-31); Bilirubin Total 0.4 mg/dL (0.0-1.0); Blood Urea Nitrogen 27 mg/dL (9-16); Calcium 9.6 mg/dL (8.4-10.2); Carbon Dioxide 24 mmol/L (22-29); Chloride 105 mmol/L (96-108); Creatinine Clr Calc Pharmacy 79.4; Estimated Glomerular Filt Rate > 60; Glucose Random 168 mg/dL (60-115); Potassium 3.9 mmol/L (3.3-5.1); Sodium 140 mmol/L (135-145); Total Protein 7.5 g/dL (6.5-8.0)
[2024-04-20] MEDS: Omeprazole 40 MG CAPSULE.DR PO (08:24)
[2024-04-20] MEDS: Spironolactone 25 MG TABLET PO ×2 (08:24→20:24)
[2024-04-20] MEDS: polyethylene glycoL 3350 17 GM POWD.PACK PO (08:24)
[2024-04-20] MEDS: Colchicine 0.6 MG TABLET 1.8 MG PO (08:24)
[2024-04-20] MEDS: Gabapentin 300 MG CAPSULE PO ×2 (08:25→20:24)
[2024-04-20] MEDS: OXcarbazepine 300 MG TABLET 900 MG PO ×2 (08:25→20:24)
[2024-04-20] MEDS: hydrOXYzine HCL 25 MG TABLET PO ×2 (08:25→14:25)
[2024-04-20] MEDS: Loratadine 10 MG TABLET PO ×2 (08:25→20:24)
[2024-04-20] MEDS: Topiramate 25 MG TABLET 50 MG PO ×2 (08:25→20:30)
[2024-04-20] MEDS: lamoTRIgine 25 MG TABLET 50 MG PO (08:25)
[2024-04-20] MEDS: Docusate Sodium 100 MG CAPSULE PO (08:26)
[2024-04-20] MEDS: metFORMIN HCl 1,000 MG TABLET 1000 MG PO ×2 (08:33→20:44)
[2024-04-20] MEDS: Insulin Lispro 100 UNIT/ML 3 ML VIAL SUBCUT ×3 (08:33→20:25)
--- NOTE | 2024-04-20 10:22 | PC.NURSE ---
metformin administered late as med was unavailable
--- NOTE | 2024-04-20 10:44 | HO.PSYCHPN ---
Subjective Subjective Date of Service: 04/20/24 Reason For Visit: mood disorder Interim History: Met with patient; discussed with team Patient continues to report that mood is much better and denies depression. Also no pressured speech or other symptoms of troy. Patient is feeling better and ready for discharge. She feels that medication changes have been helpful and is tolerating tapering of lithium; of note, kidney function has improved some; LFTs elevated but remains stable Mental Status Exam Mental Status Exam Narrative: Pt is alert and oriented; behavior is cooperative, friendly, more talkative; patient is not in distress; dressed in casual attire with unkempt hair but adequate hygiene; mood is described as good and affect congruent, brighter; TD present (Mouth/tongue movements) eye contact appropriate; Speech is a little verbose and mildly faster rate; normal volume and prosody; no psychomotor retardation present; thought process is organized, and logical but a little repetitive; Thought content is on tx; otherwise pertinent to relevant topics and without any delusional content, paranoid ideations or grandiosity; denies any SI/HI. There is no evidence of perceptual disturbance. Patients insight and judgment are intact Diagnostics Vital Signs (24Hr): Vital Signs - 24 hr 04/19/24 20:00 04/20/24 08:20 Temperature 98.2 F Pulse Rate 95 82 Respiratory Rate 18 16 Blood Pressure 132/79 121/80 Pulse Oximetry 96 97 Oxygen Delivery Method Room Air Room Air BMI result Body Mass Index 29.8 Labs 04/18/24 08:28 04/20/24 07:03 Labs: Laboratory Results - last 48 hr 04/18/24 04/18/24 04/18/24 12:22 16:55 21:16 Hold Purple Top Sodium Potassium Chloride Carbon Dioxide Anion Gap BUN Creatinine Estim Creat Clear Calc Estimated GFR POC Glucose 205 H 219 H 408 H* Random Glucose Calcium Total Bilirubin AST ALT Alkaline Phosphatase Total Protein Albumin [place] 04/19/24 04/19/24 04/19/24 05:30 11:36 16:40 Hold Purple Top Sodium Potassium Chloride Carbon Dioxide Anion Gap BUN Creatinine Estim Creat Clear Calc Estimated GFR POC Glucose 120 H 270 H 221 H Random Glucose Calcium Total Bilirubin AST ALT Alkaline Phosphatase Total Protein Albumin [place] 04/19/24 04/20/24 04/20/24 20:31 07:03 07:46 Hold Purple Top SEE NOTE Sodium 140 Potassium 3.9 Chloride 105 Carbon Dioxide 24 Anion Gap 15 BUN 27 H Creatinine 0.88 Estim Creat Clear Calc 79.4 Estimated GFR > 60 POC Glucose 269 H Random Glucose 168 H Calcium 9.6 Total Bilirubin 0.4 AST 35 H ALT 37 H Alkaline Phosphatase 262 H Total Protein 7.5 Albumin 4.0 [place] 0.34 L 04/20/24 07:54 Hold Purple Top Sodium Potassium Chloride Carbon Dioxide Anion Gap BUN Creatinine Estim Creat Clear Calc Estimated GFR POC Glucose 198 H Random Glucose Calcium Total Bilirubin AST ALT Alkaline Phosphatase Total Protein Albumin [place] Medications Medications Current Medications Acetaminophen (Acetaminophen 325 Mg Tablet) 650 mg PO Q6H PRN PRN Reason: Headache/Pain Mild Scale (1-3) Al Hydroxide/Mg Hydroxide (Magnesium Hydrox/Alum Hydrox 30 Ml Oral.Susp) 30 ml PO Q6H PRN PRN Reason: Heartburn/Nausea Albuterol/Ipratropium (Albuterol/Iprat 2.5/0.5mg 3 Ml Ampul.Neb) 3 ml INHALE Q6H PRN PRN Reason: Shortness of Breath Atorvastatin Calcium (Atorvastatin Calcium 40 Mg Tablet) 40 mg PO BEDTIME [facility] Last Admin: 04/19/24 21:02 Dose: 40 mg Colchicine (Colchicine 0.6 Mg Tablet) 1.8 mg PO DAILY [facility] Last Admin: 04/20/24 08:24 Dose: 1.8 mg Docusate Sodium (Docusate Sodium 100 Mg Capsule) 100 mg PO BID PRN PRN Reason: constipation Last Admin: 04/20/24 08:26 Dose: 100 mg Ferrous Sulfate (Ferrous Sulfate 324 Mg Tablet.Dr) 324 mg PO DAILY [facility] Last Admin: 04/20/24 10:23 Dose: Not Given Gabapentin (Gabapentin 300 Mg Capsule) 300 mg PO BID [facility] Last Admin: 04/20/24 08:25 Dose: 300 mg Glucose (Glucose Gel 15 Gm Gel..Gram.) 15 gm PO Q15M PRN; Protocol PRN Reason: per Hypoglycemia Standing Ord. Hydroxyzine HCl (Hydroxyzine Hcl 25 Mg Tablet) 25 mg PO Q6H PRN PRN Reason: Anxiety Last Admin: 04/20/24 08:25 Dose: 25 mg Hydroxyzine HCl (Hydroxyzine Hcl 10 Mg Tablet) 40 mg PO BEDTIME [facility] Last Admin: 04/19/24 21:01 Dose: 40 mg Hydroxyzine HCl (Hydroxyzine Hcl 50 Mg Tablet) 50 mg PO DAILY PRN PRN Reason: Anxiety Last Admin: 04/18/24 08:44 Dose: 50 mg Dextrose (D10) 250 mls @ 750 mls/hr IV Q15M PRN; Protocol PRN Reason: per Hypoglycemia Standing Ord. Insulin Human Lispro (Insulin Lispro 100 Unit/Ml 3 Ml Vial) 0 unit SUBCUT QIDACHS [facility]; Protocol Last Admin: 04/20/24 08:33 Dose: 2 unit Lamotrigine (Lamotrigine 100 Mg Tablet) 200 mg PO BEDTIME [facility] Last Admin: 04/19/24 21:01 Dose: 200 mg Lamotrigine (Lamotrigine 25 Mg Tablet) 50 mg PO DAILY [facility] Last Admin: 04/20/24 08:25 Dose: 50 mg Levothyroxine Sodium (Levothyroxine Sodium 50 Mcg Tablet) 50 mcg PO DAILY@0600 [facility] Last Admin: 04/20/24 05:48 Dose: 50 mcg [place] Carbonate ([place] Carbonate 300 Mg Capsule) 300 mg PO BEDTIME [facility] Last Admin: 04/19/24 21:00 Dose: 300 mg Loperamide HCl (Loperamide Hcl 2 Mg Capsule) 4 mg PO Q6H PRN PRN Reason: LOOSE STOOL Loratadine (Loratadine 10 Mg Tablet) 10 mg PO BID [facility] Last Admin: 04/20/24 08:25 Dose: 10 mg Magnesium Hydroxide (Milk Of Magnesia 30 Ml Oral.Susp) 30 ml PO DAILY PRN PRN Reason: Constipation Magnesium Oxide (Magnesium Oxide 400 Mg Tablet) 400 mg PO DAILY@1200 [facility] Last Admin: 04/19/24 11:37 Dose: 400 mg Melatonin (Melatonin 3 Mg Tablet) 9 mg PO BEDTIME PRN PRN Reason: Insomnia Last Admin: 04/18/24 21:40 Dose: 9 mg Metformin HCl (Metformin Hcl 1,000 Mg Tablet) 1,000 mg PO BID [facility] Last Admin: 04/19/24 21:01 Dose: 1,000 mg Montelukast Sodium (Montelukast Sodium 10 Mg Tablet) 10 mg PO BEDTIME [facility] Last Admin: 04/19/24 21:02 Dose: 10 mg Nicotine Polacrilex (Nicotine Polacrilex 2 Mg Gum) 4 mg BUCCAL Q2H PRN PRN Reason: Nicotine Cravings Patient Own Medication ( Norethindrone 0.35mg Tabs {Incassia}) 1 each PO BEDTIME [facility] Last Admin: 04/19/24 20:58 Dose: 1 each Patient Own Medication [ Dulaglutide ( Trulicity 0.75mg/0. 5ml)] 1 each SUBCUT Sa [facility] Last Admin: 04/19/24 09:39 Dose: 1 each Omeprazole (Omeprazole 40 Mg Capsule.Dr) 40 mg PO BID@0630,1630 [facility] Last Admin: 04/20/24 08:24 Dose: 40 mg Ondansetron HCl (Ondansetron Odt 4 Mg Tab.Rapdis) 4 mg TRANSLINGU Q8H PRN PRN Reason: Nausea Oxcarbazepine (Oxcarbazepine 300 Mg Tablet) 900 mg PO BID [facility] Last Admin: 04/20/24 08:25 Dose: 900 mg Oxycodone HCl (Oxycodone Hcl Immed Release 5 Mg Tablet) 5 mg PO DAILY PRN PRN Reason: severe pain Last Admin: 04/19/24 17:14 Dose: 5 mg Polyethylene Glycol (Polyethylene Glycol 3350 17 Gm Powd.Pack) 17 gm PO DAILY PRN PRN Reason: Constipation Last Admin: 04/20/24 08:24 Dose: 17 gm Prednisone (Prednisone 20 Mg Tablet) 20 mg PO BID PRN PRN Reason: bowel inflamation (per pt) Last Admin: 04/18/24 13:29 Dose: 20 mg Simethicone (Simethicone 80 Mg Tab.Chew) 80 mg PO QIDWMHS PRN PRN Reason: flatulance Spironolactone (Spironolactone 25 Mg Tablet) 25 mg PO BID [facility] Last Admin: 04/20/24 08:24 Dose: 25 mg Sumatriptan Succinate (Sumatriptan Succinate 50 Mg Tablet) 50 mg PO DAILY PRN PRN Reason: Migraine Headache Topiramate (Topiramate 25 Mg Tablet) 50 mg PO BID [facility] Last Admin: 04/20/24 08:25 Dose: 50 mg Trazodone HCl (Trazodone Hcl 50 Mg Tablet) 50 mg PO BEDTIME [facility]X1 PRN PRN Reason: Insomnia Venlafaxine HCl (Venlafaxine Hcl 25 Mg Tablet) 75 mg PO BEDTIME [facility] Last Admin: 04/19/24 21:02 Dose: 75 mg Allergies Allergies Allergy/AdvReac Type Severity Reaction Status Date / Time adhesive [ADHESIVE] Allergy Intermediate BLISTER Verified 04/16/24 13:55 fluticasone [From FLONASE] Allergy Unknown unknown Verified 04/16/24 13:55 meperidine [Demerol] Allergy Unknown vomit Verified 04/16/24 13:55 metoclopramide [From REGLAN] Allergy Unknown DIPLOPIA Verified 04/16/24 13:55 transparent dressing Allergy Unknown rash Verified 04/16/24 13:55 morphine [MORPHINE] AdvReac Severe NAUSEA & Verified 04/16/24 13:55 VOMITING TEGADERM BANDAGE Allergy Intermediate RASH Uncoded 04/16/24 13:55 morphine Allergy Unknown vomit Uncoded 04/16/24 13:55 tape Allergy Unknown rash Uncoded 04/16/24 13:55 From DEMEROL AdvReac Severe NAUSEA & Uncoded 04/16/24 13:55 VOMITING Assessment & Plan Assessment & Plan (1) Bipolar disorder: Status: Acute Code(s): F31.9 - Bipolar disorder, unspecified (2) PTSD (post-traumatic stress disorder): Status: Acute Code(s): F43.10 - Post-traumatic stress disorder, unspecified Plan HPI: Patient is a 48-year-old female with history of bipolar disorder, PTSD, and multiple medical comorbidities including familial Mediterranean fever (FMF), IgG deficiency, CKD, Walters and cyclic vomiting syndrome who presents for worsening depression as she is being tapered off lithium by log peeler. Patient reports that over the past weeks, she has been rapid cycling with manic/depressive episodes that flare and recede daily; she says she notices increased irritability and emotionality; patient says she has chronic depression and little has ever made it better. Patient is looking for help with medication management given medical comorbidities and being tapered off lithium. Patient denies any SI or HI or AVH. Denies any drug or alcohol use. -reviewed history extensively -reviewed medication trials -reviewed medical comorbidities Impression: Patient reports she was diagnosed with bipolar disorder when she was 21 years old and was going through a traumatic event in her life. Director Of Health Education reviewed her history of manic episodes and it is hard to piece together an actual manic episodes that includes typical criteria associated with bipolar manic episodes; patient says that it is more of an internal feeling of agitation and with racing thoughts and impulsivity. Director Of Health Education discussed how PTSD and trauma history can often mimic a manic episode and that patient's recent description of rapid cycling that resolves with an hours, sounds much more like symptoms of PTSD and borderline traits (pt has had years of DBT) than it does a manic episode. During interview patient said she feels like she is going through hypomanic episode currently though ticket writer points out she currently presents without any obvious symptoms of troy. Perimenapausal symptoms may also be contributory. That said, this is currently speculation and patient will remain with bipolar diagnosis as she has carried this diagnosis for 20 years and at this point it is premature to undiagnose it Patient does not want anymore trials of antipsychotics since she has tardive dyskinesia which is clearly present. -Discussed numerous options including ECT and Depakote, risks/side effects; given risk of liver by Depakote, patient would 1st like to have a trial of increasing to higher dose of Lamictal (reports used to be on 600 mg) and restart gabapentin to which ticket writer agrees. Hospital course: 04/18 Patient depressed but feels some benefit from being in the milieu and and supportive environment; tolerating increase Lamictal and gabapentin and agrees to titrating gabapentin further. Discussed whether or not to further taper off lithium; lithium as traditionally been helpful for patient's stability and wonder if patient may tolerate lower dose; will try to discuss with nephrology -patient reports increasing abdominal pain; reviewed [facility] and patient intermittently is prescribed oxycodone since she can not take Tylenol or NSAIDs; will add this as a daily p.r.n. 04/19 Patient reports that she is feeling a little better still. Had a bowel movement for which she is relieved and said that without prednisone her blood sugars were much better. Discussed medication management and patient agrees to discontinue morning dose of lithium since this is the planned taper. Patient very much wants to attend partial; says benefiting from supportive milieu -Patient affect is definitely brighter and she is talking a little faster today and will continue to monitor for manic symptoms with decreased lithium 04/20 Patient continues to report that mood is much better and denies depression. Also no pressured speech or other symptoms of troy. Patient is feeling better and ready for discharge. She feels that medication changes have been helpful and is tolerating tapering of lithium; of note, kidney function has improved some; LFTs elevated but remains stable -patient continues to remain in good behavioral and impulse control. She is without manic symptoms and stable. Labs monitored and have remained stable. Patient is asking for discharge tomorrow. She has significant support in the community and is well established with medical and psychiatric providers. Patient is not in imminent risk for harm to self or others. At this time, further changes in medication regimen is appropriate to be handled by outpatient provider. Impression: Patient has multiple significant and complex medical comorbidities that make medication adjustments complicated and which require immediate monitoring both kidney and liver function; this can only be done in the inpatient setting. Also, since tapering down lithium, need to monitor for triggered manic episode which also needs to be done in the hospital. -Given risks to liver ticket writer agrees to 1st see if adjusting Lamictal (which though uncommon, can also affect liver) and gabapentin can be effective before trying Depakote Plan: CV Q15 Discontinue lithium 150 a.m. dose; this outpt plan to taper off fully and discontinue lithium Continue lithium ER 300 mg q.h.s.; Add oxycodone 5 mg daily p.r.n. for severe abdominal pain (patient has no history of drug or alcohol abuse) Continue Lamictal by 50 mg daily Continue Lamictal 200mg qhs Continue gabapentin 300 mg b.i.d. (she has been on the past; will titrate); will monitor kidney functioning NO acetaminophen NO NSAIDs Medical comorbidities: Familial Mediterranean fever (FMF): Takes prednisone 20 mg b.i.d. p.r.n. 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
[2024-04-20 12:16] LABS: Glucose, Whole Blood 121 mg/dL (60-115)
[2024-04-20] MEDS: Magnesium Oxide 400 MG TABLET PO (13:15)
[2024-04-20 17:23] LABS: Glucose, Whole Blood 164 mg/dL (60-115)
[2024-04-20] MEDS: Acetaminophen 325 MG TABLET 650 MG PO (18:52)
[2024-04-20 19:40] VITALS: BP 116/75; PULSE 95; TEMP 37.1; O2SAT 96
[2024-04-20] MEDS: hydrOXYzine HCL 10 MG TABLET 40 MG PO (20:22)
[2024-04-20] MEDS: Venlafaxine HCL 25 MG TABLET 75 MG PO (20:23)
[2024-04-20] MEDS: Montelukast Sodium 10 MG TABLET PO (20:24)
[2024-04-20] MEDS: lamoTRIgine 100 MG TABLET 200 MG PO (20:24)
[2024-04-20] MEDS: Atorvastatin Calcium 40 MG TABLET PO (20:25)
[2024-04-20] MEDS: Lithium Carbonate 300 MG CAPSULE PO (20:25)
[2024-04-20] MEDS: NORETHINDRONE 0.35 MG 1 EACH PO (20:44)
[2024-04-20 21:43] LABS: Glucose, Whole Blood 277 mg/dL (60-115)
[2024-04-21] MEDS: hydrOXYzine HCL 25 MG TABLET PO (03:57)
[2024-04-21] MEDS: Levothyroxine Sodium 50 MCG TABLET PO (05:20)
[2024-04-21] MEDS: Omeprazole 40 MG CAPSULE.DR PO (05:20)
[2024-04-21 08:00] VITALS: BP 115/69; PULSE 88; RESP 16; TEMP 36.4; O2SAT 98
[2024-04-21 08:15] LABS: Glucose, Whole Blood 134 mg/dL (60-115)
[2024-04-21] MEDS: Colchicine 0.6 MG TABLET 1.8 MG PO (08:19)
[2024-04-21] MEDS: metFORMIN HCl 1,000 MG TABLET 1000 MG PO (08:21)
[2024-04-21] MEDS: Loratadine 10 MG TABLET PO (08:22)
[2024-04-21 08:23] VITALS: BP 115/69
[2024-04-21] MEDS: SUMAtriptan succinate 50 MG TABLET PO (08:23)
[2024-04-21] MEDS: Spironolactone 25 MG TABLET PO (08:23)
[2024-04-21] MEDS: Topiramate 25 MG TABLET 50 MG PO (08:23)
[2024-04-21] MEDS: OXcarbazepine 300 MG TABLET 900 MG PO (08:24)
[2024-04-21] MEDS: lamoTRIgine 25 MG TABLET 50 MG PO (08:24)
[2024-04-21] MEDS: Gabapentin 300 MG CAPSULE PO (08:25)
--- NOTE | 2024-04-21 12:01 | P.DS_ITS ---
DS: Providers Provider Date of Service: 04/21/24 Date of admission: 04/16/24 18:04 Date of discharge: 04/21/24 Primary care physician: Bernie Aquino NP Consults: 04/17/24 09:51 Consult to Hospitalist Routine Comment: Consulting Provider: [facility] Reason For Exam: DM med management (has CKD) DS: Diagnosis Discharge Diagnosis (1) Bipolar disorder: Status: Acute (2) PTSD (post-traumatic stress disorder): Status: Acute DS: Medications Discharge Medications Home Medications: Home Medications ?Medication ?Instructions ?Recorded ?Confirmed montelukast 10 mg tablet 1 tab PO QPM 01/31/22 04/16/24 immune globulin (human) (IgG) 10 30 g IV .COMPLEX 04/23/23 04/16/24 gram intravenous solution levothyroxine 50 mcg tablet 50 mcg PO DAILY 04/23/23 04/16/24 melatonin 10 mg capsule 10 mg PO BEDTIME PRN Insomnia 04/23/23 04/16/24 norethindrone (contraceptive) 0.35 0.35 mg PO DAILY 05/28/23 04/16/24 mg tablet (Incassia) ondansetron HCl 4 mg tablet 4 mg PO Q8H PRN Nausea 05/28/23 04/16/24 oxcarbazepine 600 mg tablet 900 mg PO BID 05/28/23 04/16/24 topiramate 50 mg tablet 50 mg PO BID 05/28/23 04/16/24 atorvastatin 40 mg tablet 40 mg PO BEDTIME 12/11/23 04/16/24 cetirizine 10 mg capsule (Zyrtec) 10 mg PO BID 12/11/23 04/16/24 ferrous gluconate 324 mg (38 mg 324 mg PO DAILY 12/11/23 04/16/24 iron) tablet lamotrigine 200 mg tablet,extended 200 mg PO BEDTIME 12/11/23 04/16/24 release 24 hr metformin 1,000 mg tablet 1,000 mg PO BID 12/11/23 04/16/24 omeprazole 40 mg capsule,delayed 40 mg PO BID 12/11/23 04/16/24 release colchicine 0.6 mg tablet 1.8 mg PO DAILY 01/02/24 04/17/24 omalizumab 300 mg/2 mL 300 mg subcut QMONTH 03/05/24 04/16/24 subcutaneous syringe (Xolair) docusate sodium 100 mg capsule 100 mg PO BID PRN constipation 04/16/24 04/16/24 dulaglutide 0.75 mg/0.5 mL 0.75 mg subcut SA 04/16/24 04/17/24 subcutaneous pen injector (Trulicity) galcanezumab-gnlm 120 mg/mL 120 mg subcut QMONTH 04/16/24 04/17/24 subcutaneous pen injector (Emgality Pen) ipratropium 20 mcg-albuterol 100 1 puff inhalation QID PRN SOB 04/16/24 04/16/24 mcg/actuation mist for inhalation (Combivent Respimat) lithium carbonate 150 mg capsule 300 mg PO BEDTIME 04/16/24 04/16/24 loperamide 2 mg capsule 4 mg PO DIRECTED 04/16/24 04/16/24 magnesium oxide 400 mg PO DAILY@1200 04/16/24 04/17/24 rizatriptan 10 mg tablet 10 mg PO Q2-4H PRN Migraine 04/16/24 04/16/24 Headache prednisone 20 mg tablet 20 - 40 mg PO DAILY PRN familial 04/17/24 04/17/24 Mediterranean fever Previous Rx's ?Medication ?Instructions ?Recorded Patient Own Medication 1 ea PO BEDTIME ##0 04/21/24 gabapentin 300 mg capsule 300 mg PO BID 30 days #60 caps 04/21/24 hydroxyzine HCl 25 mg tablet See Rx Instructions .Route 04/21/24 .COMPLEX PRN anxiety or insomnia 30 days #120 tabs lamotrigine 25 mg tablet 50 mg (2 x 25 mg) PO DAILY 30 days 04/21/24 #60 tabs spironolactone 25 mg tablet 25 mg PO BID 30 days #60 tabs 04/21/24 venlafaxine 50 mg tablet 75 mg (1.5 x 50 mg) PO BEDTIME 30 04/21/24 days #45 tabs Data Data Completed and Pending Completed studies during hospitalization [Text1]: 04/16/24 04/16/24 04/17/24 14:29 15:03 08:47 WBC 14.9 H RBC 5.39 Hgb 11.7 L Hct 38.1 MCV 70.7 L MCH 21.7 L MCHC 30.7 L RDW 18.6 H Plt Count 418 H MPV 9.6 Immature Gran % (Auto) 0.3 Neut % (Auto) 82.1 H Lymph % (Auto) 9.5 L [place] % (Auto) 6.4 Eos % (Auto) 1.1 Baso % (Auto) 0.6 Lymph # (Auto) 1.4 [place] # (Auto) 1.0 Eos # (Auto) 0.2 Baso # (Auto) 0.1 Abs Immat Gran (auto) 0.05 H Absolute Neuts (auto) 12.2 H Absolute Nucleated RBC 0.000 Nucleated RBC % (auto) 0.0 Hold Purple Top Sodium 139 137 Potassium 4.2 4.7 Chloride 108 105 Carbon Dioxide 19 L 19 L Anion Gap 16 18 BUN 23 H 25 H Creatinine 1.11 1.32 Estim Creat Clear Calc 61.5 52.4 Estimated GFR 52 43 POC Glucose Random Glucose 276 H Fasting Glucose 487 H* Estimat Average Glucose 189 Hemoglobin A1c % 8.2 H Calcium 9.8 9.9 Magnesium 1.8 Total Bilirubin 0.3 0.3 Direct Bilirubin 0.1 AST 26 43 H ALT 32 H 41 H Alkaline Phosphatase 287 H 291 H Troponin I High Sens Total Protein 7.6 7.6 Albumin 4.0 4.2 Triglycerides 178 H Cholesterol 178 LDL Cholesterol, Calc 103 H HDL Cholesterol 40 L Urine Color Yellow Urine Appearance Clear Urine pH 6.5 Ur Specific [place] <= 1.005 Urine Protein Negative Urine Glucose (UA) Negative Urine Ketones Negative Urine Blood Negative Urine Nitrite Negative Ur Leukocyte Esterase Small (1+) H Urine RBC 0-2 Urine WBC 6-10 H Ur Squamous Epith Cells 3-5 Urine Bacteria Trace Hyaline Casts 0-2 Urine Opiates Screen Not Detected Ur Buprenorphine Scrn Not Detected Ur Oxycodone Screen Not Detected Urine Methadone Screen Not Detected Urine Fentanyl Screen Not Detected Ur Barbiturates Screen Not Detected Ur Phencyclidine Scrn Not Detected Ur Amphetamines Screen Not Detected U Benzodiazepines Scrn Not Detected [place] 0.43 L 0.41 L Urine Cocaine Screen Not Detected U Marijuana (THC) Screen Not Detected Ethyl Alcohol < 10 04/17/24 04/17/24 04/17/24 12:04 17:22 21:19 WBC RBC Hgb Hct MCV MCH MCHC RDW Plt Count MPV Immature Gran % (Auto) Neut % (Auto) Lymph % (Auto) [place] % (Auto) Eos % (Auto) Baso % (Auto) Lymph # (Auto) [place] # (Auto) Eos # (Auto) Baso # (Auto) Abs Immat Gran (auto) Absolute Neuts (auto) Absolute Nucleated RBC Nucleated RBC % (auto) Hold Purple Top Sodium Potassium Chloride Carbon Dioxide Anion Gap BUN Creatinine Estim Creat Clear Calc Estimated GFR POC Glucose 182 H 252 H 330 H Random Glucose Fasting Glucose Estimat Average Glucose Hemoglobin A1c % Calcium Magnesium Total Bilirubin Direct Bilirubin AST ALT Alkaline Phosphatase Troponin I High Sens Total Protein Albumin Triglycerides Cholesterol LDL Cholesterol, Calc HDL Cholesterol Urine Color Urine Appearance Urine pH Ur Specific [place] Urine Protein Urine Glucose (UA) Urine Ketones Urine Blood Urine Nitrite Ur Leukocyte Esterase Urine RBC Urine WBC Ur Squamous Epith Cells Urine Bacteria Hyaline Casts Urine Opiates Screen Ur Buprenorphine Scrn Ur Oxycodone Screen Urine Methadone Screen Urine Fentanyl Screen Ur Barbiturates Screen Ur Phencyclidine Scrn Ur Amphetamines Screen U Benzodiazepines Scrn [place] Urine Cocaine Screen U Marijuana (THC) Screen Ethyl Alcohol 04/18/24 04/18/24 04/18/24 07:33 08:28 10:31 WBC 16.7 H RBC 5.22 Hgb 11.1 L Hct 36.7 L MCV 70.3 L MCH 21.3 L MCHC 30.2 L RDW 18.6 H Plt Count 380 MPV 10.2 Immature Gran % (Auto) Neut % (Auto) Lymph % (Auto) [place] % (Auto) Eos % (Auto) Baso % (Auto) Lymph # (Auto) [place] # (Auto) Eos # (Auto) Baso # (Auto) Abs Immat Gran (auto) Absolute Neuts (auto) Absolute Nucleated RBC 0.000 Nucleated RBC % (auto) 0.0 Hold Purple Top Sodium 137 Potassium 4.2 Chloride 104 Carbon Dioxide 19 L Anion Gap 18 BUN 27 H Creatinine 1.15 Estim Creat Clear Calc 60.7 Estimated GFR 50 POC Glucose 377 H* 369 H* Random Glucose 440 H* Fasting Glucose Estimat Average Glucose Hemoglobin A1c % Calcium 9.8 Magnesium Total Bilirubin 0.3 Direct Bilirubin AST 23 ALT 36 H Alkaline Phosphatase 268 H Troponin I High Sens < 2.7 Total Protein 7.6 Albumin 4.1 Triglycerides Cholesterol LDL Cholesterol, Calc HDL Cholesterol Urine Color Urine Appearance Urine pH Ur Specific [place] Urine Protein Urine Glucose (UA) Urine Ketones Urine Blood Urine Nitrite Ur Leukocyte Esterase Urine RBC Urine WBC Ur Squamous Epith Cells Urine Bacteria Hyaline Casts Urine Opiates Screen Ur Buprenorphine Scrn Ur Oxycodone Screen Urine Methadone Screen Urine Fentanyl Screen Ur Barbiturates Screen Ur Phencyclidine Scrn Ur Amphetamines Screen U Benzodiazepines Scrn [place] Urine Cocaine Screen U Marijuana (THC) Screen Ethyl Alcohol 04/18/24 04/18/24 04/18/24 12:22 16:55 21:16 WBC RBC Hgb Hct MCV MCH MCHC RDW Plt Count MPV Immature Gran % (Auto) Neut % (Auto) Lymph % (Auto) [place] % (Auto) Eos % (Auto) Baso % (Auto) Lymph # (Auto) [place] # (Auto) Eos # (Auto) Baso # (Auto) Abs Immat Gran (auto) Absolute Neuts (auto) Absolute Nucleated RBC Nucleated RBC % (auto) Hold Purple Top Sodium Potassium Chloride Carbon Dioxide Anion Gap BUN Creatinine Estim Creat Clear Calc Estimated GFR POC Glucose 205 H 219 H 408 H* Random Glucose Fasting Glucose Estimat Average Glucose Hemoglobin A1c % Calcium Magnesium Total Bilirubin Direct Bilirubin AST ALT Alkaline Phosphatase Troponin I High Sens Total Protein Albumin Triglycerides Cholesterol LDL Cholesterol, Calc HDL Cholesterol Urine Color Urine Appearance Urine pH Ur Specific [place] Urine Protein Urine Glucose (UA) Urine Ketones Urine Blood Urine Nitrite Ur Leukocyte Esterase Urine RBC Urine WBC Ur Squamous Epith Cells Urine Bacteria Hyaline Casts Urine Opiates Screen Ur Buprenorphine Scrn Ur Oxycodone Screen Urine Methadone Screen Urine Fentanyl Screen Ur Barbiturates Screen Ur Phencyclidine Scrn Ur Amphetamines Screen U Benzodiazepines Scrn [place] Urine Cocaine Screen U Marijuana (THC) Screen Ethyl Alcohol 04/19/24 04/19/24 04/19/24 05:30 11:36 16:40 WBC RBC Hgb Hct MCV MCH MCHC RDW Plt Count MPV Immature Gran % (Auto) Neut % (Auto) Lymph % (Auto) [place] % (Auto) Eos % (Auto) Baso % (Auto) Lymph # (Auto) [place] # (Auto) Eos # (Auto) Baso # (Auto) Abs Immat Gran (auto) Absolute Neuts (auto) Absolute Nucleated RBC Nucleated RBC % (auto) Hold Purple Top Sodium Potassium Chloride Carbon Dioxide Anion Gap BUN Creatinine Estim Creat Clear Calc Estimated GFR POC Glucose 120 H 270 H 221 H Random Glucose Fasting Glucose Estimat Average Glucose Hemoglobin A1c % Calcium Magnesium Total Bilirubin Direct Bilirubin AST ALT Alkaline Phosphatase Troponin I High Sens Total Protein Albumin Triglycerides Cholesterol LDL Cholesterol, Calc HDL Cholesterol Urine Color Urine Appearance Urine pH Ur Specific [place] Urine Protein Urine Glucose (UA) Urine Ketones Urine Blood Urine Nitrite Ur Leukocyte Esterase Urine RBC Urine WBC Ur Squamous Epith Cells Urine Bacteria Hyaline Casts Urine Opiates Screen Ur Buprenorphine Scrn Ur Oxycodone Screen Urine Methadone Screen Urine Fentanyl Screen Ur Barbiturates Screen Ur Phencyclidine Scrn Ur Amphetamines Screen U Benzodiazepines Scrn [place] Urine Cocaine Screen U Marijuana (THC) Screen Ethyl Alcohol 04/19/24 04/20/24 04/20/24 20:31 07:03 07:46 WBC RBC Hgb Hct MCV MCH MCHC RDW Plt Count MPV Immature Gran % (Auto) Neut % (Auto) Lymph % (Auto) [place] % (Auto) Eos % (Auto) Baso % (Auto) Lymph # (Auto) [place] # (Auto) Eos # (Auto) Baso # (Auto) Abs Immat Gran (auto) Absolute Neuts (auto) Absolute Nucleated RBC Nucleated RBC % (auto) Hold Purple Top SEE NOTE Sodium 140 Potassium 3.9 Chloride 105 Carbon Dioxide 24 Anion Gap 15 BUN 27 H Creatinine 0.88 Estim Creat Clear Calc 79.4 Estimated GFR > 60 POC Glucose 269 H Random Glucose 168 H Fasting Glucose Estimat Average Glucose Hemoglobin A1c % Calcium 9.6 Magnesium Total Bilirubin 0.4 Direct Bilirubin AST 35 H ALT 37 H Alkaline Phosphatase 262 H Troponin I High Sens Total Protein 7.5 Albumin 4.0 Triglycerides Cholesterol LDL Cholesterol, Calc HDL Cholesterol Urine Color Urine Appearance Urine pH Ur Specific [place] Urine Protein Urine Glucose (UA) Urine Ketones Urine Blood Urine Nitrite Ur Leukocyte Esterase Urine RBC Urine WBC Ur Squamous Epith Cells Urine Bacteria Hyaline Casts Urine Opiates Screen Ur Buprenorphine Scrn Ur Oxycodone Screen Urine Methadone Screen Urine Fentanyl Screen Ur Barbiturates Screen Ur Phencyclidine Scrn Ur Amphetamines Screen U Benzodiazepines Scrn [place] 0.34 L Urine Cocaine Screen U Marijuana (THC) Screen Ethyl Alcohol 04/20/24 04/20/24 04/20/24 07:54 12:12 17:20 WBC RBC Hgb Hct MCV MCH MCHC RDW Plt Count MPV Immature Gran % (Auto) Neut % (Auto) Lymph % (Auto) [place] % (Auto) Eos % (Auto) Baso % (Auto) Lymph # (Auto) [place] # (Auto) Eos # (Auto) Baso # (Auto) Abs Immat Gran (auto) Absolute Neuts (auto) Absolute Nucleated RBC Nucleated RBC % (auto) Hold Purple Top Sodium Potassium Chloride Carbon Dioxide Anion Gap BUN Creatinine Estim Creat Clear Calc Estimated GFR POC Glucose 198 H 121 H 164 H Random Glucose Fasting Glucose Estimat Average Glucose Hemoglobin A1c % Calcium Magnesium Total Bilirubin Direct Bilirubin AST ALT Alkaline Phosphatase Troponin I High Sens Total Protein Albumin Triglycerides Cholesterol LDL Cholesterol, Calc HDL Cholesterol Urine Color Urine Appearance Urine pH Ur Specific [place] Urine Protein Urine Glucose (UA) Urine Ketones Urine Blood Urine Nitrite Ur Leukocyte Esterase Urine RBC Urine WBC Ur Squamous Epith Cells Urine Bacteria Hyaline Casts Urine Opiates Screen Ur Buprenorphine Scrn Ur Oxycodone Screen Urine Methadone Screen Urine Fentanyl Screen Ur Barbiturates Screen Ur Phencyclidine Scrn Ur Amphetamines Screen U Benzodiazepines Scrn [place] Urine Cocaine Screen U Marijuana (THC) Screen Ethyl Alcohol 04/20/24 04/21/24 19:48 08:11 WBC RBC Hgb Hct MCV MCH MCHC RDW Plt Count MPV Immature Gran % (Auto) Neut % (Auto) Lymph % (Auto) [place] % (Auto) Eos % (Auto) Baso % (Auto) Lymph # (Auto) [place] # (Auto) Eos # (Auto) Baso # (Auto) Abs Immat Gran (auto) Absolute Neuts (auto) Absolute Nucleated RBC Nucleated RBC % (auto) Hold Purple Top Sodium Potassium Chloride Carbon Dioxide Anion Gap BUN Creatinine Estim Creat Clear Calc Estimated GFR POC Glucose 277 H 134 H Random Glucose Fasting Glucose Estimat Average Glucose Hemoglobin A1c % Calcium Magnesium Total Bilirubin Direct Bilirubin AST ALT Alkaline Phosphatase Troponin I High Sens Total Protein Albumin Triglycerides Cholesterol LDL Cholesterol, Calc HDL Cholesterol Urine Color Urine Appearance Urine pH Ur Specific [place] Urine Protein Urine Glucose (UA) Urine Ketones Urine Blood Urine Nitrite Ur Leukocyte Esterase Urine RBC Urine WBC Ur Squamous Epith Cells Urine Bacteria Hyaline Casts Urine Opiates Screen Ur Buprenorphine Scrn Ur Oxycodone Screen Urine Methadone Screen Urine Fentanyl Screen Ur Barbiturates Screen Ur Phencyclidine Scrn Ur Amphetamines Screen U Benzodiazepines Scrn [place] Urine Cocaine Screen U Marijuana (THC) Screen Ethyl Alcohol 04/16/24 Unknown Urine clean catch - Clean Catch Midstream Urine Culture - Final DS: Summary Hospital Course Hospital Course: HPI: Patient is a 48-year-old female with history of bipolar disorder, PTSD, and multiple medical comorbidities including familial Mediterranean fever (FMF), IgG deficiency, CKD, [place] and cyclic vomiting syndrome who presents for worsening depression as she is being tapered off lithium by pool servicer. Patient reports that over the past weeks, she has been rapid cycling with manic/depressive episodes that flare and recede daily; she says she notices increased irritability and emotionality; patient says she has chronic depression and little has ever made it better. Patient is looking for help with medication management given medical comorbidities and being tapered off lithium. Patient denies any SI or HI or AVH. Denies any drug or alcohol use. -reviewed history extensively -reviewed medication trials -reviewed medical comorbidities Impression: Patient reports she was diagnosed with bipolar disorder when she was 21 years old and was going through a traumatic event in her life. Board Writer reviewed her history of manic episodes and it is hard to piece together an actual manic episodes that includes typical criteria associated with bipolar manic episodes; patient says that it is more of an internal feeling of agitation and with racing thoughts and impulsivity. Board Writer discussed how PTSD and trauma history can o ften mimic a manic episode and that patient's recent description of rapid cycling that resolves with an hours, sounds much more like symptoms of PTSD and borderline traits (pt has had years of DBT) than it does a manic episode. During interview patient said she feels like she is going through hypomanic episode currently though screenplay writer points out she currently presents without any obvious symptoms of troy. Perimenapausal symptoms may also be contributory. That said, this is currently speculation and patient will remain with bipolar diagnosis as she has carried this diagnosis for 20 years and at this point it is premature to undiagnose it Patient does not want anymore trials of antipsychotics since she has tardive dyskinesia which is clearly present. -Discussed numerous options including ECT and Depakote, risks/side effects; given risk of liver by Depakote, patient would 1st like to have a trial of increasing to higher dose of Lamictal (reports used to be on 600 mg) and restart gabapentin to which screenplay writer agrees. Hospital course: 04/18 Patient depressed but feels some benefit from being in the milieu and and supportive environment; tolerating increase Lamictal and gabapentin and agrees to titrating gabapentin further. Discussed whether or not to further taper off lithium; lithium as traditionally been helpful for patient's stability and wonder if patient may tolerate lower dose; will try to discuss with nephrology -patient reports increasing abdominal pain; reviewed Mass Pat and patient intermittently is prescribed oxycodone since she can not take Tylenol or NSAIDs; will add this as a daily p.r.n. 04/19 Patient reports that she is feeling a little better still. Had a bowel movement for which she is relieved and said that without prednisone her blood sugars were much better. Discussed medication management and patient agrees to discontinue morning dose of lithium since this is the planned taper. Patient very much wants to attend partial; says benefiting from supportive milieu -Patient affect is definitely brighter and she is talking a little faster today and will continue to monitor for manic symptoms with decreased lithium 04/20 Patient continues to report that mood is much better and denies depression. Also no pressured speech or other symptoms of [place]. Patient is feeling better and ready for discharge. She feels that medication changes have been helpful and is tolerating tapering of lithium; of note, kidney function has improved some; LFTs elevated but remains stable -patient continues to remain in good behavioral and impulse control. She is without manic symptoms and stable. Labs monitored and have remained stable. Patient is asking for discharge tomorrow. She has significant support in the community and is well established with medical and psychiatric providers. Patient is not in imminent risk for harm to self or others. At this time, further changes in medication regimen is appropriate to be handled by outpatient provider. Impression: Patient has multiple significant and complex medical comorbidities that make medication adjustments complicated and which require immediate monitoring both kidney and liver function; this can only be done in the inpatient setting. Also, since tapering down lithium, need to monitor for triggered manic episode which also needs to be done in the hospital. -Given risks to liver screenplay writer agrees to 1st see if adjusting Lamictal (which though uncommon, can also affect liver) and gabapentin can be effective before trying Depakote Medications: discontinue lithium 150 a.m. dose; Added extra Lamictal by 50 mg daily Started gabapentin 300 mg b.i.d. Medical comorbidities: Familial Mediterranean fever (FMF): Takes prednisone 20 mg b.i.d. p.r.n. for bowel disturbance flares (which spike glucose); inflammation of the bowel 2/2 FMF: patient on colchicine IgG deficiency Liver: [place] concern for liver cirrhosis secondary to FMF (and [place]) PSC: concern for possible primary sclerosing cholangitis (PSC) given history of IgG CKD: Patient followed by Nephrology; lithium being tapered; patient remains on metformin 1000 mg b.i.d. 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 Discharge Plan Discharge Anticipated Discharge Date/Time: 04/21/24 12:00 Patient Disposition: Home, Self-Care Discharge Diagnosis: Bipolar disorder, unspecified Referrals: Psychiatry and Therapy with Karl Hummel [Other] - 04/23/24 10:00 am [facility]) and Crisis [Other] - 1 Week (This location offers short term respite stays as well as community resources that includes adult mental health support groups. ) [facility] [Other] - 1 Week (Go to their website or call them for volunteer opportunities. ) [facility] Adult Mental Health Support Groups [Other] - 1 Week ([facility] offers a variety of outpatient groups for adults, youth, children, and families. These groups are facilitated by credentialed clinicians and accredited psychiatric providers. They are available in person at [facility] locations in [facility], [facility], and [facility] [place] as well as through remote video access. ) Bernie Aquino, XIANG [Primary Care Provider] - 04/25/24 Discharge Medications: New gabapentin 300 mg Capsule 300 mg PO BID 30 Days Qty: 60 0RF lamotrigine 25 mg Tablet 50 mg PO DAILY 30 Days Qty: 60 0RF spironolactone 25 mg Tablet 25 mg PO BID 30 Days Qty: 60 0RF Patient Own Medication 1 ea PO BEDTIME Qty: 0 0RF Continued montelukast 10 mg tablet 1 tab PO QPM topiramate 50 mg tablet 50 mg PO BID omeprazole 40 mg capsule,delayed release(DR/EC) 40 mg PO BID lamotrigine 200 mg tablet extended release 24hr 200 mg PO BEDTIME colchicine 0.6 mg tablet 1.8 mg PO DAILY lithium carbonate 150 mg Capsule 300 mg PO BEDTIME loperamide 2 mg capsule 4 mg PO DIRECTED rizatriptan 10 mg Tablet 10 mg PO Q2-4H PRN (Reason: Migraine Headache) Rx Instructions: do not exceed 3 doses per 24 hrs docusate sodium 100 mg capsule 100 mg PO BID PRN (Reason: constipation) Combivent Respimat 20-100 mcg/actuation mist 1 puff INHALATION QID PRN (Reason: SOB) Trulicity 0.75 mg/0.5 mL pen injector 0.75 mg subcut SA magnesium oxide 400 mg magnesium Tablet 400 mg PO DAILY@1200 Rx Instructions: Take once daily at noon starting on 04/17/24 Emgality Pen 120 mg/mL pen injector 120 mg subcut QMONTH prednisone 20 mg tablet 20 - 40 mg PO DAILY PRN (Reason: familial Mediterranean fever) immune globulin (human) (IgG) 10 gram recon soln 30 g IV .COMPLEX Rx Instructions: 30 grams intravenously; melatonin 10 mg capsule 10 mg PO BEDTIME PRN (Reason: Insomnia) levothyroxine 50 mcg tablet 50 mcg PO DAILY Zyrtec 10 mg capsule 10 mg PO BID ondansetron HCl 4 mg tablet 4 mg PO Q8H PRN (Reason: Nausea) norethindrone (contraceptive) [Incassia] 0.35 mg tablet 0.35 mg PO DAILY oxcarbazepine 600 mg tablet 900 mg PO BID atorvastatin 40 mg tablet 40 mg PO BEDTIME ferrous gluconate 324 mg (38 mg iron) tablet 324 mg PO DAILY metformin 1,000 mg tablet 1,000 mg PO BID Xolair 300 mg/2 mL syringe 300 mg subcut QMONTH Changed venlafaxine 50 mg tablet 75 mg PO BEDTIME 30 Days Qty: 45 0RF hydroxyzine HCl 25 mg tablet See Rx Instructions .ROUTE .COMPLEX PRN (Reason: anxiety or insomnia) 30 Days Qty: 120 0RF Rx Instructions: take 1-2 tabs up to 3 times a day as needed for anxiety and insomnia Discontinued amiloride 5 mg tablet 10 mg PO DAILY Qty: 60 5RF hydroxyzine HCl 10 mg tablet 40 mg PO BEDTIME lithium carbonate 150 mg Capsule 150 mg PO DAILY Discharge Orders: Discharge Order (Routine); Ordered 04/21/24 Ordered By: Addi Ordaz Diet: Diabetic diet Activity on Discharge: As tolerated Stand Alone Forms: Patient Portal Discharge page, Community Support Print Language: [place] Care Plan Goals: Maintain mood and safe behaviors Take medications as prescribed Practice coping skills Continue with outpatient providers and reach out to them as needed Health Concerns: Mood stability and behaviors Familial Mediterranean fever (FMF) IgG deficiency [place] PSC: concern for possible primary sclerosing cholangitis (PSC) CKD Nephrogenic diabetes insipidus DM II cyclic vomiting syndrome Plan of Treatment: Follow up with your PCP, psychiatric provider and other outpatient providers regarding above concerns Take medications as prescribed Assessment: Risk assessment at time of discharge:? Patient was interviewed prior to discharge and found to be fully oriented and without any SI or HI. Patient has improved insight and judgment and wants to continue treatment. Patient is not in imminent risk of harm to self or others and has a safety plan that includes presenting to the closest ER or calling 911 if feeling unsafe.? Patient has been observed closely by nursing and unit staff throughout admission; patient has not engaged in any behaviors that suggest dangerousness to self or others and has demonstrated appropriate behaviors and impulse control Discharge Date/Time: 04/21/24 12:46
--- OUTSIDE RECORDS SUMMARY | 2024-04-22 19:39 | XMS_ITS | Data Portability ---
Author Organization [place] [facility], Allergy Address [address] [address] Assessment Encounter Date Assessment Date Assessment LastModified by Organization Details LastModified Time 10/01/2023 10/01/2023 Patient with his tory of chronic congestion, postnasal drip, moderate asthma, hypogammaglobulinemia and elevated IgE syndrome presently on IV IgG infusions and Xolair injections. She has had multiple antibiotics including a recent 2-week course of doxycycline but her nasal congestion, postnasal drip and chest congestion persist. A sinus series on August 14 showed right maxillary sinus thickening. Nasal endoscopy today shows no evidence of purulent nasal discharge and her lungs are clear. Suggest CT of sinuses to rule out chronic sinusitis that would require intervention. [email or web address] Not available 10/01/2023 10:18:27 Plan of Treatment Reminders Order Date Submit Date Provider Last Modified By Organization Details Last Modified Time Details Appointments None recorded . Lab None recorded . Referral None recorded . Procedures None recorded . Surgeries None recorded . Imaging CT, sinuses, w/o contrast 2023 [facility], [address] [facility], [place], [address], 10:39:49 Medication Orders budesoni de 0.5 mg/2 mL suspensi on for nebuliza tion 2023 024 [id number], [address] [facility], [place], [address], 10:37:41 Patient TargetsNo targets recorded. Patient InstructionsNo instructions recorded. Reason for Referral None Reported. Results Created Date Observation Date Name Description Value Unit Range Abnormal Flag Note LastModifiedBy Organization Detail LastModifiedTime 10/01/19 CT, sinus es, w/o contr ast No observ ation record ed. [facility] [address], [place], [address], 10/01/2023 10:36:08 10/17/19 24 10/01/2023 CT, sinus es, w/o contr ast No observ ation record ed. [facility] [place] [address], [place], [address], 10/17/2023 12:45:07 01/02/20 24 05/28/2019 imagi ng/di agnos tic resul t No observ ation record ed. [email or web address] Not Available 00:53:57 01/02/20 24 10/12/2021 imagi ng/di agnos tic resul t No observ ation record ed. [email or web address] Not Available 00:54:14 01/02/20 24 02/05/2021 imagi ng/di agnos tic resul t No observ ation record ed. [email or web address] Not Available 00:54:22 01/02/20 24 02/08/2021 imagi ng/di agnos tic resul t No observ ation record ed. [email or web address] Not Available 00:54:36 01/02/20 24 02/18/2021 imagi ng/di agnos tic resul t No observ ation record ed. [email or web address] Not Available 00:54:37 01/02/20 24 04/27/2021 imagi ng/di agnos tic resul t No observ ation record ed. [email or web address] Not Available 00:55:01 01/02/20 24 10/12/2021 audio gram No observ ation record ed. [email or web address] Not Available 00:55:31 Result Notes None recorded. Problems Name Problem SNOMED Code Status Onset Date Resolution Date Notes Provider Name and Address Organization Details Recorded Time Nasal congestio n 02104391 Active 2019 Nasal congestion ; Note: Date Diagnosed: 05/26/2019 1:39 PM (R09.81) Not Available [facility] 4 02:47:40 Immunodef iciency disorder 506532708 Active 2019 Immunodefi ciency, unspecifie d; Note: Changed from D84 to D84.9 (11/22/2020 11:21 AM) , Date Diagnosed: 05/26/2019 1:39 PM (D84) Not Available [facility] 4 02:47:43 Sensorine ural hearing loss 27708089 Active 2020 Sensorineu ral hearing loss, unilateral , left ear, with unrestrict ed hearing on the contralate ral side; Note: Date Diagnosed: 01/20/2021 1:26 PM (H90.42) Not Available [facility] 4 02:47:40 Chronic sinusitis 54619778 Active 2020 Sinusitis (chronic) NOS; Note: Date Diagnosed: 04/26/2021 2:03 PM (J32.9) Not Available [facility] 4 02:47:42 Posterior rhinorrhe a 81583632 Active 2019 Postnasal drip; Note: Date Diagnosed: 05/26/2019 2:03 PM (R09.82) Not Available [facility] 4 02:47:46 Abnormal auditory perceptio n 65063393 Active 2021 Other abnormal auditory perception s, left ear; Note: Date Diagnosed: 10/12/2021 11:06 AM (H93.292) Not Available [facility] 4 02:47:41 Hypogamma globuline dania 625172195 Active 2019 Hypogammag lobulinemi a NOS; Note: Date Diagnosed: 05/26/2019 2:51 PM (D80.1) Not Available [facility] 4 02:47:43 Headache 99252329 Active 2019 Headache; Note: Date Diagnosed: 05/26/2019 1:39 PM (R51) Headache , unspecifie d; Note: Changed from R51 to R51.9 ( 1 3:39 PM) , Date Diagnosed: 05/26/2019 1:39 PM (R51) Not Available [facility] 4 02:47:47 Chronic cough 03376308 Active 2023 LIDYA MINOR MD [address], [place], [address] , [facility] [place] 4 10:16:49 Perennial allergic rhinitis 411379623 Active 2023 LIDYA MINOR MD [address] [facility] [place], [place], [address] , [facility] - [facility] [place] 4 10:17:00 Hyperimmu noglobuli n E syndrome 28101554 Active 2023 LIDYA MINOR MD [address] [facility],[address] [facility], [place], [address] , [facility] - [facility] [place] 4 10:17:16 Moderate persisten t asthma 405310120 Active 2023 LIDYA MINOR MD [address] [facility] [place], [place], [address] , [facility] - [facility] [place] 4 10:17:24 Polyp of nasal cavity 449134647 Active 2023 LIDYA MINOR MD [address] [facility] [place], [place], [address] , [facility] - [facility] [place] 4 10:36:51 Problem Notes None recorded. Procedures Surgical History Date Name Laterality Status Provider Name and Address Organization Details Recorded Time 4 JMSNasal/Sinus Endoscopy completed LIDYA URIBE MD [address], [place], [address], [facility] - [facility] [place] 10/01/2023 10:35:41 functional endoscopic sinus surgery completed LIDYA URIBE MD [address] [facility] [place], [address], [place] - [facility] [place] 09/30/2023 14:24:57 simple extraction of tooth completed LIDYA URIBE MD [address] [facility] [place], [address], [place] - [facility] [place] 09/30/2023 14:25:15 dilation and curettage completed LIDYA URIBE MD [address] [facility],[address], [address], [place] - [facility] [place] 09/30/2023 14:26:03 arthroscopy of knee completed LIDYA URIBE MD [address] [facility],[address], [address], [place] - [facility] [place] 09/30/2023 14:26:15 Imaging Results Imaging Date Name Status LastModified by [facility] Details LastModified Time 10/01/2023 CT, sinuses, w/o contrast completed evelyn Ents [address], [address], 10/01/2023 10:36:08 10/01/2023 CT, sinuses, w/o contrast completed evelyn [facility] [address], [address], 10/17/2023 12:45:07 05/28/2019 imaging/diagno stic result completed Information not available 01/02/2024 00:53:57 10/12/2021 imaging/diagno stic result completed Information not available 01/02/2024 00:54:14 02/05/2021 imaging/diagno stic result completed Information not available 01/02/2024 00:54:22 02/08/2021 imaging/diagno stic result completed Information not available 01/02/2024 00:54:36 02/18/2021 imaging/diagno stic result completed Information not available 01/02/2024 00:54:37 04/27/2021 imaging/diagno stic result completed [email or web address] Information not available 01/02/2024 00:55:01 10/12/2021 audiogram completed .[email or web address] Information not available 01/02/2024 00:55:31 Procedure Notes None recorded. Medical Equipment None Reported. Allergies Allergen ID Allergen Name Allergen Category Reaction Reaction Severity Criticality Documentation Date Start Date Code Code System Note Provider Name and Address Organization Details Recorded Time [id number] Flonase medicatio n other Not available Not available 09/25/2023 33331 RxNorm React ion: unkno wn, unspe cifie d;; Not Available [facility] 4 01:19:32 636598 Demerol medicatio n Not available Not available Not available 10/01/2023 74766 1 RxNorm Serge murphy [place] - [facility] 4 10:10:31 735190 morphine medicatio n Not available Not available Not available 10/01/2023 7052 RxNorm Serge murphy [place] [facility] 4 10:10:40 Medications Name Sig Start Date Stop Date Status Note LastModified by Organization Details LastModified Time cyclobenz aprine 10 mg tablet active Medicati on ID: [id number] B rand Name: santo romero Send Method: E-Prescr ibed Sub s Allowed: subs OK Medic ationGen ericName : santo romero Not Available Not Available Not Available amoxicill in 500 mg capsule TAKE ONE CAPSULE BY MOUTH THREE TIMES A DAY FOR 5 DAYS active Not Available Not Available No t Available atorvasta tin 40 mg tablet TAKE ONE TABLET BY MOUTH ONCE DAILY. DISCONTI NUE ATORVAST STIN 20MG active Not Available Not Available No t Available metformin 500 mg tablet TAKE TWO TABLETS BY MOUTH TWICE A DAY active Not Available Not Available No t Available oxcarbaze pine 150 mg tablet TAKE 2 TABLETS BY MOUTH IN THE MORNING AND 1 TABLET AT BEDTIME. active Not Available Not Available No t Available prednison e 10 mg tablet TAKE 4 TABLETS BY MOUTH ONCE DAILY FOR 2 DAYS, THEN 3 TABLETS FOR 3 DAYS, THEN 2 TABLETS FOR 3 DAYS, THEN 1 TABLET FOR 3 DAYS 09/30 completed Not Available Not Available Not Available gabapenti n 600 mg tablet 04/26 completed Medicati on ID: [id number] D uration Value: 30 Brand Name: gabapent in Send Method: E-Prescr ibed Sub s Allowed: subs OK Speci al Instruct ion: TAKE 1/2 TABLET (300MG TOTAL) BY MOUTH EVERY MORNING AND 2 TABLETS (12 00MG TOTAL) BY MOUTH AT BEDTIME. START ON 02/10/19 Medicati onGeneri cName: gabapent in Not Available Not Available Not Available atorvasta tin 20 mg tablet TAKE ONE TABLET BY MOUTH EVERY DAY active Not Available Not Available No t Available lamotrigi ne 200 mg tablet TAKE ONE TABLET BY MOUTH EVERY DAY active Not Available Not Available No t Available cetirizin e 10 mg tablet TAKE ONE TABLET BY MOUTH EVERY DAY active Not Available Not Available No t Available atorvasta tin 10 mg tablet active Medicati on ID: [id number] B rand Name: atorvast atin Sen d Method: E-Prescr ibed Sub s Allowed: subs OK Medic ationGen ericName : atorvast atin Not Available Not Available Not Available fluconazo le 150 mg tablet TAKE ONE TABLET BY MOUTH EVERY DAY FOR 2 DAYS active Not Available Not Available No t Available benzonata te 200 mg capsule TAKE ONE CAPSULE BY MOUTH THREE TIMES A DAY active Not Available Not Available No t Available ondansetr on HCl 8 mg tablet active Medicati on ID: [id number] B rand Name: ondanset sharon HCl Send Method: E-Prescr ibed Sub s Allowed: subs OK Medic ationGen ericName : ondanset sharon HCl Not Available Not Available Not Available sucralfat e 1 gram tablet TAKE ONE TABLET BY MOUTH TWICE A DAY active Not Available Not Available No t Available venlafaxi ne 25 mg tablet TAKE TWO TABLETS BY MOUTH EVERY MORNING active Not Available Not Available No t Available ondansetr on HCl 4 mg tablet TAKE ONE TABLET BY MOUTH EVERY 8 HOURS 09/30 completed Not Available Not Available Not Available rizatript an 10 mg tablet active Medicati on ID: [id number] B rand Name: rizatrip meza Send Method: E-Prescr ibed Sub s Allowed: subs OK Speci al Instruct ion: TAKE ONE TABLET BY MOUTH NEEDED FOR MIGRAINE . MAY REPEAT IN 2 HOURS IF UNRESOLV ED. DO NOT EXCEED 30MG IN 24 HOURS Me dication GenericN lyly: rizatrip meza Not Available Not Available Not Available hydroxyzi ne HCl 50 mg tablet 09/30 completed Medicati on ID: [id number] D uration Value: 30 Brand Name: hydroxyz ine HCl Send Method: E-Prescr ibed Sub s Allowed: subs OK Speci al Instruct ion: TAKE ONE TABLET BY MOUTH EVERY DAY NEEDED. START ON 02/10/19 Medicati onGeneri cName: hydroxyz ine HCl Medi cation ID: [id number] D uration Value: 30 Brand Name: hydroxyz ine HCl Send Method: E-Prescr ibed Sub s Allowed: subs OK Speci al Instruct ion: TAKE ONE TABLET BY MOUTH EVERY DAY NEEDED. START ON 02/10/19 Medicati onGeneri cName: hydroxyz ine HCl Not Available Not Available Not Available oxcarbaze pine 300 mg tablet TAKE ONE TABLET BY MOUTH TWICE A DAY active Not Available Not Available No t Available omeprazol e 40 mg capsule,d elayed release TAKE ONE CAPSULE BY MOUTH TWICE A DAY active Not Available Not Available No t Available tramadol 50 mg tablet TAKE ONE TABLET BY MOUTH EVERY 4 TO [address]; [address] NOT DRIVE WHILE TAKING THIS MEDICATI ON. TO BE STARTED AFTER SURGERY active Not Available Not Available No t Available acetamino phen 500 mg tablet TAKE TWO TABLETS BY MOUTH EVERY 8 HOURS NEEDED FOR PAIN active Not Available Not Available No t Available lithium carbonate ER 450 mg tablet,ex tended release TAKE ONE TABLET BY MOUTH TWICE A DAY active Not Available Not Available No t Available amiloride 5 mg tablet TAKE TWO TABLETS BY MOUTH EVERY DAY active Not Available Not Available No t Available doxycycli ne monohydra te 100 mg capsule TAKE ONE CAPSULE BY MOUTH TWICE A DAY FOR 14 DAYS. 09/30 completed Not Available Not Available Not Available levothyro xine 50 mcg tablet TAKE ONE TABLET BY MOUTH EVERY DAY; GO FOR BLOOD TEST IN 6 WEEKS active Not Available Not Available No t Available Phospha Neutral 250 mg tablet TAKE 1 TABLET BY MOUTH TWICE A DAY active Not Available Not Available No t Available benztropi ne 1 mg tablet 2019 active Medicati on ID: [id number] D uration Value: 30 Brand Name: benztrop ine Send Method: E-Prescr ibed Sub s Allowed: subs OK Speci al Instruct ion: TAKE 1/2 TABLET BY MOUTH IN THE MORNING AND 1 TABLET BY MOUTH AT BEDTI [facility] ericName : benztrop ine Not Available Not Available Not Available venlafaxi ne 50 mg tablet TAKE ONE TABLET BY MOUTH ONCE DAILY IN THE MORNING active Not Available Not Available No t Available omeprazol e 20 mg capsule,d elayed release 09/30 completed Medicati on ID: [id number] D uration Value: 90 Brand Name: omeprazo le Send Method: E-Prescr ibed Sub s Allowed: subs OK Speci al Instruct ion: TAKE ONE CAPSULE BY MOUTH TWICE A DAY Medi cationGe nericNam e: omeprazo le [facility] ID: [id number] D uration Value: 90 Brand Name: omeprazo le Send Method: E-Prescr ibed Sub s Allowed: subs OK Speci al Instruct ion: TAKE ONE CAPSULE BY MOUTH TWICE A DAY Medi cationGe nericNam e: omeprazo le Not Available Not Available Not Available budesonid e 0.5 mg/2 mL suspensio n for nebulizat ion MIX 1 VIAL IN 8 OUNCES OF DISTILLE D WATER WITH BUFFERED SALINE PACKET. IRRIGATE NOSE TWICE DAILY . USE HALF A BOTTLE ON EACH SIDE active Not Available Not Available No t Available oxcarbaze pine 600 mg tablet TAKE ONE TABLET BY MOUTH TWICE A DAY active Not Available Not Available No t Available folic acid 1 mg tablet 04/26 completed Medicati on ID: [id number] D uration Value: 30 Brand Name: folic acid Sen d Method: E-Prescr ibed Sub s Allowed: subs OK Speci al Instruct ion: TAKE FOUR TABLETS BY MOUTH EVERY DAY Medi cationGe nericNam e: folic acid Not Available Not Available Not Available monteluka st 10 mg tablet TAKE ONE TABLET PPO ONCE DAILY IN THE EVENING active Not Available Not Available No t Available azelastin e 137 mcg (0.1 %) nasal spray US 1 SPRAY INTRANAS ALLY TWO TIMES A DAY active Not Available Not Available No t Available epinephri ne 0.3 mg/0.3 mL injection , auto-inje ctor INJECT ONE PEN DIRECTED FOR ANAPHYLA XIS AND CALL 911 active Not Available Not Available No t Available levofloxa eliza 500 mg tablet TAKE ONE TABLET BY MOUTH EVERY DAY FOR 7 DAYS 09/30 completed Not Available Not Available Not Available colchicin e 0.6 mg tablet TAKE ONE TABLET BY MOUTH TWICE A DAY active Not Available Not Available No t Available hydroxyzi ne HCl 10 mg tablet TAKE THREE TABLETS BY MOUTH EVERY EVENING AT BEDTIME active Not Available Not Available No t Available lithium carbonate 300 mg tablet TAKE ONE TABLET BY MOUTH TWICE A DAY 09/30 completed Not Available Not Available Not Available metformin ER 500 mg tablet,ex tended release 24 hr 2019 active Medicati on ID: [id number] D uration Value: 30 Brand Name: metformi n Send Method: E-Prescr ibed Sub s Allowed: subs OK Speci al Instruct ion: TAKE ONE TABLET BY MOUTH EVERY DAY WITH MEAL. IF TOLERATI NG WELL INCRE ASE TO 2 TABLETS TWICE DAILY WITH MEALS Me dication GenericN lyly: metformi n Not Available Not Available Not Available lisinopri l 2.5 mg tablet 2019 active Medicati on ID: [id number] D uration Value: 30 Brand Name: lisinopr il Send Method: E-Prescr ibed Sub s Allowed: subs OK Speci al Instruct ion: TAKE ONE TABLET BY MOUTH EVERY DAY Medi cationGe nericNam e: lisinopr il Not Available Not Available Not Available ipratropi um bromide 21 mcg (0.03 %) nasal spray 2 spray 04/26 completed Medicati on ID: [id number] [place] By Name: Jerome Sauer nd Name: ipratrop ium bromide Send Method: E-Prescr ibed Sub s Allowed: subs OK Medic ationGen ericName : ipratrop ium bromide Not Available Not Available Not Available enoxapari n 40 mg/0.4 mL subcutane ous syringe INJECT 0.4ML 40MG) UNDER THE SKIN ONCE DAILY STARTING THE DAY AFTER SURGERY active Not Available Not Available No t Available topiramat e 50 mg tablet TAKE ONE TABLET BY MOUTH EVERY MORNING AND TAKE THREE TABLETS BY MOUTH DAILY AT BEDTIME active Not Available Not Available No t Available doxycycli ne hyclate 100 mg tablet,de layed release TAKE ONE TABLET BY MOUTH TWICE A DAY FOR 5 DAYS 09/30 completed Not Available Not Available Not Available Januvia 100 mg tablet TAKE ONE TABLET BY MOUTH EVERY DAY active Not Available Not Available No t Available lamotrigi ne ER 200 mg tablet,ex tended release 24 hr TAKE ONE TABLET BY MOUTH DAILY AT BEDTIME active Not Available Not Available No t Available butalbita l-acetami nophen-ca ffeine 50 mg-300 mg-40 mg capsule active Medicati on ID: [id number] B rand Name: butalbit al-aceta minophen -caff Se nd Method: E-Prescr ibed Sub s Allowed: subs OK Medic ationGen ericName : butalbit al-aceta minophen -caff Not Available Not Available Not Available Latuda 40 mg tablet 04/26 completed Medicati on ID: [id number] D uration Value: 30 Brand Name: Latuda S end Method: E-Prescr ibed Sub s Allowed: subs OK Speci al Instruct ion: TAKE 1 TABLET DAILY WITH FOOD. AT LEAST 350 CALORIES Medicat ionGener icName: Latuda Not Available Not Available Not Available melatonin 10 mg tablet TAKE ONE TABLET BY MOUTH EVERY DAY IN THE EVENING WITH FOOD active Not Available Not Available No t Available Combivent Respimat 20 mcg-100 mcg/actua tion solution for inhalatio n INHALE ONE PUFF BY MOUTH FOUR TIMES A DAY active Not Available Not Available No t Available potassium chloride ER 20 mEq tablet,ex tended release TAKE ONE TABLET BY MOUTH EVERY DAY active Not Available Not Available No t Available Trulicity 0.75 mg/0.5 mL subcutane ous pen injector active Medicati on ID: [id number] B rand Name: Trulicit y Send Method: E-Prescr ibed Sub s Allowed: subs OK Speci al Instruct ion: INJECT 0.5 ML (1 PEN) UNDER THE SKIN EVERY WEEK. ROTATE INJECTIO N SITES Me dication GenericN lyly: Trulicit y Not Available Not Available Not Available Vraylar 4.5 mg capsule TAKE ONE CAPSULE BY MOUTH EVERY MORNING active Not Available Not Available No t Available Vraylar 3 mg capsule 04/26 completed Medicati on ID: [id number] D uration Value: 30 Brand Name: Vraylar Send Method: E-Prescr ibed Sub s Allowed: subs OK Speci al Instruct ion: TAKE ONE CAPSULE BY MOUTH EVERY DAY IN THE MORNING Medicati onGeneri cName: Brandyn Medicsheila on ID: [id number] D uration Value: 30 Brand Name: Brandyn Send Method: E-Prescr ibed Sub s Allowed: subs OK Speci al Instruct ion: TAKE ONE CAPSULE BY MOUTH EVERY DAY IN THE MORNING Medicati onGeneri cName: Nimalar Not Available Not Available Not Available Incassia 0.35 mg tablet TAKE ONE TABLET BY MOUTH EVERY DAY active Not Available Not Available No t Available Emgality Pen 120 mg/mL subcutane ous pen injector INJECT 1ML UNDER THE SKIN EVERY 28 DAYS active Not Available Not Available No t Available Vitals Date Recorded Body height Body mass index (BMI) Body weight Provider Name and Address Organization Details Last Updated DateTime 10/01/2023 162.56 cm 29 kg/m2 64620.11 g Serge Álvarez [facility] 10/01/2023 10:14:43 Social History Question Answer Notes LastModified by Organizat ion Details LastModified Time Tobacco Smoking Status Never Smoker Serge murphy [place] [facility] 10/01/2023 10:11:57 What Is Your Level Of Alcohol Consumption? None [email or web address] Information not available 10/01/2023 Do You Use Any Illicit Or Recreational Drugs? No Information not available 10/01/2023 Do You Or Have You Ever Used Any Other Forms Of Tobacco Or Nicotine? No [email or web address] Information not available 10/01/2023 Sex: Unknown Functional Status None recorded. Mental Status None recorded. Family History Nothing Reported. Medical History Condition Response Emphysema N Glaucoma N Depression Y COPD N Nasal or Sinus Problems N Anesthesia Complications N Arthritis Y Hearing Loss N Stroke N High Cholesterol Y Liver Disease N Headaches Y Fibromyalgia N Speech Delay N Kidney Disease Y Allergies/Hayfever N Heart Problems N Migraines N Thyroid Problems N Anemia N Immune System Disorder N Heart Attack (DE) N Other Skin Condition N Diabetes Y Bleeding Disorder N Food Allergy N Hyperlipidemia Y Dementia N Nasal polyps N Asthma N Sleep Disorder Y GERD/Reflux N Hypertension N Gynecological HistoryNo gynecological history recorded. Obstetrics History GPAL:G 0 P 0 0 0 0 Past Encounters Encounter ID Performer Location Encounter Start Date Encounter Closed Date Diagnosis/Indication Diagnosis SNOMED-CT Code Diagnosis ICD10 Code 631 LIDYA MINOR MD [facility] [address] [place] [address] 10/01/2023 09:53:23 10/01/2023 10:39:48 Chronic cough 63462473 R05.3 Posterior rhinorrhea 758 44239 R09.82 Perennial allergic rhinitis 438417692 J30.89 Hypogammaglobulinemia 11 9216730 D80.1 Hyperimmun oglobulin E syndrome 44942350 D82.4 Moderate p ersistent asthma 079669457 J45.40 Chronic sinusitis 727756 00 J32.9 Polyp of nasal cavity 73 8563682 J33.0 Health Concerns Section Related Observation LastModified by Organization Detai ls LastModified Time None Recorded Concern Status LastModified by Organization Details LastModified Time None Recorded Advance Directives Directive None Recorded Payers Encounter Date Sequence Insurance Name Policy Number Policy Brambila Covered Member ID Brambila Member ID Guarantor Name 10/01/2023 2 MEDICARE B-[place]: [employer] Meredith Garcia [id number] Meredith Garcia 10/01/2023 1 BCBS-ID:[facility] [id number] Meredith Garcia [id number] Meredith Garcia Notes Date Note Type Note Provider Name and Address Organization Details Recorded Time 4 text/html Hx of severe allergy, hypogammaglobulinemia and elevated IgE. Prior FESS-Presently on Xolair and IV IgG. Reports persistent sinus symptoms despite 4 courses of antibiotics over the last 6 months. She reports having an abnormal sinus x-ray. Avoids FP due to allergy with the scent. LIDYA URIBE MD [address], [address], [facility] - [facility] 10/01/2023 12:13:54 OBGyn Episode No OBEpisode recorded.
--- OUTSIDE RECORDS SUMMARY | 2024-04-22 19:39 | XMS_ITS | Continuity of Care Document ---
Author Organization [facility] David lt Address [address] [place] [id number]- Support Name Relationship Address Phone HEMANT LEE Personal Relationship Unknown U navailable LEE, EMBER Personal Relationship Unknown Unavai lable LEE, EMBER Personal Relationship Unknown Unavai lable SKUSE, NARCISA spouse Unknown Unavailable LEE, EMBER Personal Relationship Unknown Unavai lable GEMINI, ONDINA father Unknown Unavailable SKUSE, HEMANT Personal Relationship Unknown Un available SKUSE, HEMANT Personal Relationship Unknown Un available LEE, HEMANT Personal Relationship Unknown U navailable SKUSE, HEMANT Personal Relationship Unknown Un available GEMINI, HEMANT Personal Relationship Unknown U navailable SKUSE, MANDY Personal Relationship Unknown Unav ailable LEE, EMBER Personal Relationship Unknown Unavai lable GEMINI, HEMANT Personal Relationship Unknown U navailable CECIL, BLAIRE sibling Unknown Unavailable GEMINI, MERRITT father Unknown Unavailable GEMINI, HEMANT Personal Relationship Unknown U navailable GEMINI, HEMANT Personal Relationship Unknown U navailable SKUSE, HEMANT Personal Relationship Unknown Un available SKUSE, HEMANT Personal Relationship Unknown Un available SKUSE, HEMANT Personal Relationship Unknown Un available GEMINI, HEMANT Personal Relationship Unknown U navailable Care Team Providers Care Strip Presser Name Role Phone Miles OTOOLE, Bernie Hardy Primary Care Physician [phone] Encounter [facility] Date(s): 03/03/24 - 04/02/24 [facility] Adult [address] [place] [address]- Encounter Type: Triage Allergies, Adverse Reactions, Alerts Substance Criticality Severity Reaction Reaction Severity Status azithromycin 1 increases sx's Active NSAIDs Active morphine vomiting Active Flonase rhinitis Active Augmentin 2 increases sx Activ e Reglan double vision Active Demerol HCl vomiting Active Adhesive Bandage rash Act maddy Cats sneezing Active 1Diarrhea 2makes sicker Immunizations [...] (oldterm) 8 03/14/09 Given 1Result Comment: [09/19/2017] [id number] 2Result Comment: [02/13/2018] [id number] 3Result Comment: [02/08/2017] [facility] [id number] 4Result Comment: [01/24/2013] ORDERRED BY GINA GAINES MD 5Admin Note: vis given 6Admin Note: BIOMEDICAL MARIELLA 7Admin Note: H1N1 8Admin Note: elsewhere Medications aMILoride 5 mg oral tablet 2 tablet = 10 mg, By Mouth, Daily, 0 Refills, Maintenance, 06/06/23 7:50:00 AM EST, Partial fill upon patient request if the prescription is for a schedule II opioid drug. Start Date: 06/06/23 Stop Date: 07/06/23 Status: Ordered Repeat number: 1 atorvastatin 40 mg oral tablet 1 tablet = 40 mg, By Mouth, Daily, replace 20mg, # 90 tablet, 2 Refills, Maintenance, 09/11/23 10:04:00 AM EDT, Tablet, [facility], Partial fill upon patient request if the prescription is for a schedule II opioid drug., 163, cm, 09/06/23 10:02:00 EDT, Height, 76.2, kg, 01/06/22 8:38:00 EDT, Dry Weight Start Date: 09/11/23 Status: Ordered Quantity: 90.0 Unit: tablet Repeat number: 3 Jade = 0.35 mg, By Mouth, Daily, 0 Refills, Maintenance, 01/16/20 10:54:00 AM EDT Start Date: 01/16/20 Status: Ordered Repeat number: 1 cetirizine 10 mg oral tablet 1 tablet, By Mouth, Daily, # 90 tablet, 1 Refills, Maintenance, 07/09/23 2:12:00 PM EST, [facility], 163, cm, 06/06/23 7:29:00 EST, Height, 76.2, kg, 01/06/22 8:38:00 EDT, Dry Weight Start Date: 07/09/23 Status: Ordered Quantity: 90.0 Unit: tablet Repeat number: 1 Colace sodium 100 mg oral capsule 100 mg, 1, capsule, By Mouth, 2 times a day, PRN, # 60 capsule, Refills 4, Tot. Refills 4, Maintenance, for constipation, 12/03/23 9:37:00 AM EDT, Route to Pharmacy Electronically, [facility], Partial fill upon patient request if the prescription is for a schedule II opioid drug., 163, cm, 11/20/23 7:24:00 EDT, Height, 76.2, kg, 01/06/22 8:38:00 EDT, Dry Weight Start Date: 12/03/23 Stop Date: 05/01/24 Status: Ordered Quantity: 60.0 Unit: capsule Repeat number: 5 colchicine 0.6 mg oral tablet 1.8 mg, 3, tablet, By Mouth, Daily, # 60 Unknown, Refills 11, Maintenance, 05/21/23 11:57:00 AM EST, Route to Pharmacy Electronically, [facility], 163, cm, 03/07/23 8:42:00 EDT, Height, 76.2, kg, 01/06/22 8:38:00 EDT, Dry Weight Start Date: 05/21/23 Status: Ordered Quantity: 60.0 Unit: Unknown Repeat number: 1 Combivent Respimat 20 mcg-100 mcg/inh inhalation aerosol 1 puffs, Inhalation, 4 times a day, # 1 each, 0 Refills, Maintenance, 10/15/23 8:40:00 AM EDT, [facility], Partial fill upon patient request if the prescription is for a schedule II opioid drug., 1 puffs Inhalation 4 times a day,x30 days, 163, cm, 10/15/23 8:33:00 EDT, Height, 76.2,kg, 01/06/22 8:38:00 EDT, Dry Weight Start Date: 10/15/23 Stop Date: 11/14/23 Status: Ordered Quantity: 1.0 Unit: each Repeat number: 1 Contour Next test strips Contour Next test strips, See Instructions, # 300 each, Refills 6, Tot. Refills 6, Maintenance, check blood glucose 3 times a day and a s needed. Dx code E 11.9 T2DM, 12/11/23 10:29:00 AM EDT, Supply,163, cm, 11/20/23 7:24:00 EDT, Height, 76.2, kg, 01/06/22 8:38:00 EDT, Dry Weight Start Date: 12/11/23 Status: Ordered Quantity: 300.0 Unit: each Repeat number: 7 cyclobenzaprine 10 mg oral tablet 10 mg, 1, tablet, By Mouth, 3 times a day, PRN, # 20 tablet, Refills 1, Tot. Refills 1, Maintenance, Spasm, 12/01/20 3:40:00 PM EDT, Route to Pharmacy Electronically, [facility], 163, cm, 11/22/20 12:47:00 EDT, Height Start Date: 12/01/20 Status: Ordered Quantity: 20.0 Unit: tablet Repeat number: 2 Emgality Prefilled Syringe 120 mg/mL subcutaneous solution = 120 mg, Subcutaneous Infusion, Every 28 days, 0 Refills, Maintenance, 06/06/22 7:42:00 AM EST, Partial fill upon patient request if the prescription is for a schedule II opioid drug. Start Date: 06/06/22 Status: Ordered Repeat number: 1 EpiPen 2-Juvenal = 0.3 mg, Intramuscular, Once, 0 Refills, Maintenance, 01/31/11 10:55:46 AM EDT Start Date: 01/31/11 Status: Ordered Repeat number: 1 ferrous sulfate 324 mg (65 mg elemental iron) oral delayed release tablet 1 tablet = 324 mg, By Mouth, Daily, ordered by GI specialist, 0 Refills, Maintenance, 12/10/23 9:42:00 AM EDT, Partial fill upon patient request if the prescription is for a schedule II opioid drug. Start Date: 12/10/23 Status: Ordered Repeat number: 1 Fioricet oral capsule 1 capsule, By Mouth, Once, PRN as needed, repeat in 2 hours if headache is still present, # 30 capsule, 0 Refills, Soft Stop, 05/13/20 10:25:00 AM EST, Capsule, [facility], 1 capsule By Mouth Once,PRN:as needed,Instr:repeat in 2 hours if headache is still present, 163, cm, 05/13/20 9:12:00 EST, Height, 82.6, kg, 05/24/18 7:14:00 EST, Dry Weight Start Date: 05/13/20 Status: Ordered Quantity: 30.0 Unit: capsule Repeat number: 1 hydrOXYzine hydrochloride 10 mg oral tablet 1 tablet = 10 mg, By Mouth, Daily at bedtime, 0 Refills, Maintenance, 01/07/22 6:51:00 AM EDT, Partial fill upon patient request if the prescription is for a schedule II opioid drug. Start Date: 01/07/22 Status: Ordered Repeat number: 1 Immune Globulin Intramuscular 20 GRAMS EVERY 3 WEEKS, 0 Refills, Maintenance, 05/11/21 10:18:00 AM EST, Partial fill upon patientrequest if the prescription is for a schedule II opioid drug. Start Date: 05/11/21 Status: Ordered Repeat number: 1 lamotrigine 200 mg oral tablet 1 tablet = 200 mg, By Mouth, Daily, # 30 tablet, 0 Refills, Maintenance, 06/06/22 7:46:00 AM EST, [facility], Partial fill upon patient request if the prescription is for a schedule II opioid drug., 163, cm, 06/06/22 7:25:00 EST, Height, 76.2, kg, 01/06/22 8:38:00 EDT, Dry Weight Start Date: 06/06/22 Status: Ordered Quantity: 30.0 Unit: tablet Repeat number: 1 levothyroxine 0.05 mg oral tablet See Instructions, 1 tablet By Mouth from sunday to sunday and 1.5 tablets on sunday, # 32 tablet,11 Refills, Maintenance, 10/29/23 10:12:00 AM EDT, Tablet, [facility], Partial fill upon patient request if the prescription is for a schedule II opioid drug., 163, cm, 10/29/23 10:06:00 EDT, Height, 76.2, kg, 01/06/22 8:38:00 EDT, Dry Weight Start Date: 10/29/23 Status: Ordered Quantity: 32.0 Unit: tablet Repeat number: 12 lithium 150 mg oral capsule 3 capsule = 450 mg, By Mouth, 2 times a day, 0 Refills, Maintenance, 09/06/23 10:30:00 AM EDT, Partial fill upon patient request if the prescription is for a schedule II opioid drug. Start Date: 09/06/23 Status: Ordered Repeat number: 1 Melatonin 10 mg oral tablet 1 tablet = 10 mg, By Mouth, Daily at bedtime, 0 Refills, Maintenance, 01/06/22 9:01:00 AM EDT, Partial fill upon patient request if the prescription is for a schedule II opioid drug. Start Date: 01/06/22 Status: Ordered Repeat number: 1 metFORMIN 500 mg oral tablet 2 tablet, By Mouth, 2 times a day, # 120 tablet, 2 Refills, Maintenance, 03/24/24 3:28:00 PM EST, [facility], 163, cm, 03/07/24 8:07:00 EDT, Height Start Date: 03/24/24 Status: Ordered Quantity: 120.0 Unit: tablet Repeat number: 1 montelukast 10 mg oral tablet 1, tablet, By Mouth, Daily in PM, # 90 tablet, Refills 1, Tot. Refills 1, Maintenance, 10/01/23 6:42:00 PM EDT, Route to Pharmacy Electronically, [facility], 163, cm, 09/06/23 10:02:00 EDT, Height, 76.2, kg, 01/06/22 8:38:00 EDT, Dry Weight Start Date: 10/01/23 Status: Ordered Quantity: 90.0 Unit: tablet Repeat number: 2 Multivitamin Daily, 0 Refills, Maintenance, 07/26/20 8:46:00 AM EDT, Partial fill upon patient request if the prescription is for a schedule II opioid drug. Start Date: 07/26/20 Status: Ordered Repeat number: 1 Nortriptyline = 10 mg, By Mouth, 0 Refills, Maintenance, 01/30/24 11:29:00 AM EDT, Partial fill upon patient request if the prescription is for a schedule II opioid drug. Start Date: 01/30/24 Status: Ordered Repeat number: 1 omeprazole 40 mg oral enteric coated capsule 1 capsule = 40 mg, By Mouth, 2 times a day, # 60 capsule, 6 Refills, Maintenance, 10/26/22 11:06:00 AM EDT, [facility], Partial fill upon patient request if the prescription is for aschedule II opioid drug., 163, cm, 09/04/22 7:38:00 EDT, Height, 76.2, kg, 01/06/22 8:38:00 EDT, Dry Weight Start Date: 10/26/22 Status: Ordered Quantity: 60.0 Unit: capsule Repeat number: 7 ondansetron 4 mg oral tablet 1 tablet, By Mouth, Every 8 hours, # 12 tablet, 0 Refills, Maintenance, 08/28/23 1:41:00 PM EDT, [facility], 163, cm, 08/22/23 8:24:00 EDT, Height, 76.2, kg, 01/06/22 8:38:00 EDT, Dry Weight Start Date: 08/28/23 Status: Ordered Quantity: 12.0 Unit: tablet Repeat number: 1 rizatriptan 10 mg oral tablet 1 tablet = 10 mg, By Mouth, PRN, 0 Refills, Maintenance, 05/11/21 10:03:00 AM EST, Partial fill upon patient request if the prescription is for a schedule II opioid drug. Start Date: 05/11/21 Status: Ordered Repeat number: 1 Serum Calcium, Albumin, Parathyroid hormone Serum Calcium, Albumin, Parathyroid hormone, See Instructions, # 1 each, Refills 0, Tot. Refills 0,Maintenance, To be drawn on 01/12/22, 01/07/22 9:47:00 AM EDT, Supply, 163, cm, 01/06/22 16:05:00 EDT,Height, 76.2, kg, 01/06/22 8:38:00 EDT, Dry Weight Start Date: 01/07/22 Status: Ordered Quantity: 1.0 Unit: each Repeat number: 1 topiramate 50 mg oral tablet See Instructions, TAKE 1 TABLET IN THE MORNING AND 3 TABLETS AT BEDTIME., # 120 tablet, 5 Refills, 09/07/23 10:21:00 AM EDT, [facility], 163, cm, 09/06/23 10:02:00 EDT, Height, 76.2,kg, 01/06/22 8:38:00 EDT, Dry Weight Start Date: 09/07/23 Status: Ordered Quantity: 120.0 Unit: tablet Repeat number: 6 Trelegy Ellipta Inhalation, Daily, 0 Refills, Maintenance, 09/07/21 10:15:00 AM EDT, Partial fill upon patient request if the prescription is for a schedule II opioid drug. Start Date: 09/07/21 Status: Ordered Repeat number: 1 Trileptal 300 mg oral tablet See Instructions, 1.5 tabs BID, Refills 0, Maintenance, 02/10/21 2:37:00 PM EDT, Instructions Replace Required Details, Partial fill upon patient request if the prescription is for a schedule II opioid drug. Start Date: 02/10/21 Status: Ordered Repeat number: 1 Trulicity Pen 0.75 mg/0.5 mL subcutaneous solution 0.5 mL = 0.75 mg, Subcutaneous Injection, Every week, rotate injection sites, # 2 mL, 5 Refills, Maintenance, 03/10/24 1:52:00 PM EDT, Solution, [facility], Partial fill upon patient request if the prescription is for a schedule II opioid drug., 163, cm, 03/07/24 8:07:00 EDT, Height Start Date: 03/10/24 Status: Ordered Quantity: 2.0 Unit: mL Repeat number: 6 Tylenol 8 Hour Caplet 650 mg oral tablet, extended release 1 tablet = 650 mg, By Mouth, Every 8 hours, # 30 tablet, 0 Refills, Maintenance, 08/03/17 11:58:28 AM EDT, [facility] Start Date: 08/03/17 Status: Ordered Quantity: 30.0 Unit: tablet Repeat number: 1 venlafaxine 50 mg oral tablet 1 tablet = 50 mg, By Mouth, 2 times a day, 0 Refills, Maintenance, 01/30/24 11:30:00 AM EDT, Partialfill upon patient request if the prescription is for a schedule II opioid drug. Start Date: 01/30/24 Status: Ordered Repeat number: 1 Xolair 150 mg subcutaneous injection See Instructions, 300 mg Subcutaneous Injection, 0 Refills, Maintenance, 01/07/22 6:52:00 AM EDT, Partial fill upon patient request if the prescription is for a schedule II opioid drug. Start Date: 01/07/22 Status: Ordered Repeat number: 1 Problem List Condition Confirmation Course Effective Dates [...] IBS - Irritable bowel syndrome Confirmed Active Kidney stones Confirmed Active Arthritis of lumbar spine Confirmed [...] Confirmed Active Papillary thyroid carcinoma Confirmed Active Functional vomiting Confirmed Active Tardive dyskinesia Confirmed Active Type 2 diabetes mellitus Confirmed Active Dyshidrotic eczema Confirmed Active Social History Social History Type Response Smoking Status Never smoker entered on: 05/12/13 Sex Sex Representation Female (finding) Patient Care team information Care Team Personnel Name: Marisa CHAIDEZ, Neto Osorio Position: [facility] Renal MD Member Role: Lifetime Consulting Physician Address: [address] [place] [address] [address] [facility] [address]- Telecom: Name: Oz SHERWOOD, Lore Position: Arnav RN Member Role: Primary Care Nurse Name: Miles OTOOLE, Bernie Hardy Position: [facility] PCO Associate Professional Member Role: PCP Address: [address] [place] [address]- [place] Telecom: Name: Gregg Hardy MD Position: [facility] Pulmonary MD Member Role: Lifetime Consulting Physician Address: [address] [place] [address]- Telecom: Care Team Related Persons Name: ONDINA SINGLETARY Name: BLAIRE JACOB Insurance Providers Guarantor name: HEMANT LEE Health Plan Information #: 1 Payer: [employer] OUT OF STATE PLANS Member Number: NA Policy Number: NA Group Number: NA Health Plan Information #: 2 Payer: MEDICARE PART B OUTPT Member Number: NA Policy Number: NA Group Number: NA Health Plan Information #: 3 Payer: [place] Member Number: NA Policy Number: NA Group Number: NA
--- OUTSIDE RECORDS SUMMARY | 2024-04-22 19:39 | XMS_ITS | Continuity of Care Document ---
Author Organization [facility] David lt Address [address] [place] [address]- Support Name Relationship Address Phone HEMANT LEE [...] Unknown U navailable Care Team Providers Care Tank Refinisher Name Role Phone Miles OTOOLE, Bernie Hardy Primary Care Physician Encounter [facility] Date(s): 03/04/24 - 04/03/24 [facility] Adult [address] [place] [address]- Encounter Type: Triage Allergies, Adverse Reactions, Alerts Substance Criticality Severity Reaction Reaction Severity Status azithromycin 1 increases sx's Active Reglan double vision Active Adhesive Bandage rash Act maddy NSAIDs Active morphine vomiting Active Flonase rhinitis Active Augmentin 2 increases sx Activ e Demerol HCl vomiting Active Cats sneezing Active [...] (oldterm) 8 03/14/09 Given 1Result Comment: [09/19/2017] [id number] 2Result Comment: [02/13/2018] [id number] 3Result Comment: [02/08/2017] [facility] [id number] 4Result Comment: [01/24/2013] ORDERRED BY [...] Maintenance, 10/15/23 8:40:00 AM EDT, [facility], Partial fill upon patient request [...] EDT, Route to Pharmacy Electronically, [facility], 163, cm, 11/22/20 12:47:00 EDT, [...] cm, 06/06/22 7:25:00 EST, Height, 76.2, kg, 08/26/22 8:38:00 EDT, Dry Weight Start Date: 06/06/22 [...] Maintenance, 03/24/24 3:28:00 PM EST, [facility], 163, cm, 03/07/24 8:07:00 EDT, [...] Maintenance, 10/26/22 11:06:00 AM EDT, [facility], Partial fill upon patient request [...] MD Member Role: Lifetime Consulting Physician Address: [address] [place] [address] [address] [place] [address]- Telecom: Name: Oz SHERWOOD, Lore Position: S RN Member Role: Primary Care Nurse Name: Miles OTOOLE, Bernie Hardy Position: [facility] PCO Associate Professional Member Role: PCP Address: [address] [place] [address]- [place] Telecom: Name: Gregg Hardy MD Position: [facility] Pulmonary MD Member Role: Lifetime Consulting Physician Address: [facility] [place] [address]- Telecom: Care Team Related Persons Name: ONDINA [...]
--- OUTSIDE RECORDS SUMMARY | 2024-04-22 19:39 | XMS_ITS | Continuity of Care Document ---
Author Organization [facility] David lt Address [address] [place] [address]- Care Team Providers Care Console Attendant Name Role Phone Miles OTOOLE, Bernie Hardy Primary Care Physician [phone] Encounter [facility] Date(s): 02/23/24 - 03/24/24 [facility] Adult [address] [place] [address]- Allergies, Adverse Reactions, Alerts Substance Reaction Severity [...] (oldterm) 8 03/14/09 Given 1Result Comment: [09/19/2017] [id number] 2Result Comment: [02/13/2018] [id number] 3Result Comment: [02/08/2017] [facility] [id number] 4Result Comment: [01/24/2013] ORDERRED BY [...] 09/06/23 1... Start Date: 09/11/23 Status: Ordered Jade = 0.35 mg, By Mouth, Daily, 0 Refills, Maintenance, 01/16/20 10:54:00 EDT Start Date: 01/16/20 Status: Ordered cetirizine 10 mg oral tablet 1 tablet, By Mouth, Daily, # 90 tablet, 1 Refills, Maintenance, 07/09/23 14:12:00 EST, [facility], 163, cm, 06/06/23 7:29:00 EST, Height, 76.2, kg, 01/06/22 8:38:00 EDT, Dry Weight Start Date: 07/09/23 Status: Ordered Colace sodium 100 mg oral capsule 100 mg, 1, capsule, By Mouth, 2 times a day, PRN, # 60 capsule, Refills 4, Tot. Refills 4, Maintenance, for constipation, 12/03/23 9:37:00 EDT, Route to Pharmacy Electronically, [facility], Partial fill upon patient request if the prescr... Start Date: 12/03/23 Stop Date: 05/01/24 Status: Ordered colchicine 0.6 mg oral tablet 1.8 mg, 3, tablet, By Mouth, Daily, # 60 Unknown, Refills 11, Maintenance, 05/21/23 11:57:00 EST, Route to Pharmacy Electronically, [facility], 163, cm, 03/07/23 8:42:00 EDT, Height, 76.2, kg, 01/06/22 8:38:00 EDT, Dry Weight Start Date: 05/21/23 Status: Ordered Combivent Respimat 20 mcg-100 mcg/inh inhalation aerosol 1 puffs, Inhalation, 4 times a day, # 1 each, 0 Refills, Maintenance, 10/15/23 8:40:00 EDT, [facility], Partial fill upon patient request [...] 12/01/20 15:40:00 EDT, Route to Pharmacy Electronically, [facility], 163,cm, 11/22/20 12:47:00 EDT, [...] opioid drug. Start Date: 05/11/21 Status: Ordered lamotrigine 200 mg oral tablet [...] tablet,11 Refills, Maintenance, 10/29/23 10:12:00 EDT, Tablet, [facility], Partial fill upon patient request if the prescription is for a schedu... Start Date: 10/29/23 Status: Ordered lithium 150 mg oral capsule 3 capsule = 450 mg, By Mouth, 2 times a day, 0 Refills, Maintenance, 09/06/23 10:30:00 EDT, Partialfill upon patient request if the prescription is for a schedule II opioid drug. Start Date: 09/06/23 Status: Ordered Melatonin 10 mg oral tablet 1 tablet = 10 mg, By Mouth, Daily at bedtime, 0 Refills, Maintenance, 01/06/22 9:01:00 EDT, Partialfill upon patient request if the prescription is for a schedule II opioid drug. Start Date: 01/06/22 Status: Ordered metFORMIN 500 mg oral tablet 2 tablet, By Mouth, 2 times a day, # 120 tablet, 2 Refills, Maintenance, 03/24/24 15:28:00 EST, [facility], 163, cm, 03/07/24 8:07:00 EDT, Height Start Date: 03/24/24 Status: Ordered montelukast 10 mg oral tablet 1, tablet, By Mouth, Daily in PM, # 90 tablet, Refills 1, Tot. Refills 1, Maintenance, 10/01/23 18:42:00 EDT, Route to Pharmacy Electronically, [facility], 163, cm, 09/06/23 10:02:00 EDT, Height, 76.2, kg, 01/06/22 8:38:00 EDT, Dry Weight Start Date: 10/01/23 Status: Ordered Multivitamin Daily, 0 Refills, Maintenance, 07/26/20 8:46:00 EDT, Partial fill upon patient request if the prescription is for a schedule II opioid drug. Start Date: 07/26/20 Status: Ordered Nortriptyline = 10 mg, By Mouth, 0 Refills, Maintenance, 01/30/24 11:29:00 EDT, Partial fill upon patient requestif the prescription is for a schedule II opioid drug. Start Date: 01/30/24 Status: Ordered omeprazole 40 mg oral enteric [...] II opioiddrug. Start Date: 02/10/21 Status: Ordered Trulicity Pen 0.75 mg/0.5 mL subcutaneous solution 0.5 mL = 0.75 mg, Subcutaneous Injection, Every week, rotate injection sites, # 2 mL, 5 Refills, Maintenance, 03/10/24 13:52:00 EDT, Solution, [facility], Partial fill upon patient request if the prescription is for a schedule II opioid... Start Date: 03/10/24 Status: Ordered Tylenol 8 Hour Caplet 650 mg oral tablet, extended release 1 tablet = 650 mg, By Mouth, Every 8 hours, # 30 tablet, 0 Refills, Maintenance, 08/03/17 11:58:28 Start Date: 08/03/17 Status: Ordered venlafaxine 50 mg oral tablet 1 tablet = 50 mg, By Mouth, 2 times a day, 0 Refills, Maintenance, 01/30/24 11:30:00 EDT, Partial fill upon patient request if the prescription is for a schedule II opioid drug. Start Date: 01/30/24 Status: Ordered Xolair 150 mg subcutaneous injection See Instructions, 300 mg Subcutaneous Injection, 0 Refills, Maintenance, 01/07/22 6:52:00 EDT, Partial fill upon patient request if the prescription is for a schedule II opioid drug. Start Date: 01/07/22 Status: Ordered Problem List Condition Confirmation Course [...] Obstructive Sleep Apnea not on CPAP Confirmed 7/5/11 Active Osteoarthritis of right hip with labral [...] Role: Lifetime Consulting Physician Address: Address: [address] [place] [address] [address] [place] [address]- [place] Name: Oz SHERWOOD, Lore Position: [facility] AMB Nurse Member Role: Primary Care Nurse Name: Miles OTOOLE, Bernie Hardy Position: [facility] PCO Associate Professional Member Role: PCP Address: Address: [address] [place] [id number]- [place] Name: Gregg Hardy MD Position: [facility] Pulmonary MD Member Role: Lifetime Consulting Physician Address: Address: [address] [place] [address]- Care Team Related Persons Name: ONDINA SINGLETARY Address: home [address] [place] [address] Name: BLAIRE JACOB Address: home [address] [place] [address]
--- OUTSIDE RECORDS SUMMARY | 2024-04-22 19:39 | XMS_ITS | Continuity of Care Document ---
Author Organization [facility] David lt Address [address] [place] [address]- Support Name Relationship Address Phone HEMANT LEE [...] Unknown U navailable Care Team Providers Care Securities Supervisor Name Role Phone Miles OTOOLE, Bernie Hardy Primary Care Physician [phone] [facility]counter [facility] Date(s): 03/18/24 - 04/17/24 [facility] Adult [address] [place] [address]- Encounter Type: Triage Allergies, Adverse Reactions, Alerts Substance Criticality Severity Reaction Reaction Severity Status azithromycin 1 increases sx's Active Flonase rhinitis Active NSAIDs Active morphine vomiting Active Augmentin 2 increases sx Activ e [...] (oldterm) 8 03/14/09 Given 1Result Comment: [09/19/2017] [id number] 2Result Comment: [02/13/2018] [id number] 3Result Comment: [02/08/2017] [facility] [id number] 4Result Comment: [01/24/2013] ORDERRED BY [...] Maintenance, 10/15/23 8:40:00 AM EDT, [facility], Partial fill upon patient request [...] EDT, Route to Pharmacy Electronically, [facility], 163, cm, 11/22/20 12:47:00 EDT, [...] Date: 09/06/23 Status: Ordered Repeat number: 1 magnesium oxide 400 mg oral tablet 1 tablet = 400 mg, By Mouth, Daily, for 30 days, # 30 tablet, 6 Refills, Acute 11/11/24 6:54:00 AM EDT, 04/15/24 6:54:00 AM EST, [facility], Partial fill upon patient request if the prescription is for a schedule II opioid drug., 163, cm, 04/14/24 13:30:00 EST, Height Start Date: 04/15/24 Stop Date: 11/11/24 Status: Ordered Quantity: 30.0 Unit: tablet Repeat number: 7 Melatonin 10 mg oral tablet 1 tablet [...] tablet, Refills 1, Tot. Refills 1, Maintenance, 04/08/24 7:45:00 AM EST, Route to Pharmacy Electronically, [facility], 163, cm, 03/07/24 8:07:00 EDT, Height Start Date: 04/08/24 Status: Ordered Quantity: 90.0 Unit: tablet Repeat number: 2 Nortriptyline = 10 mg, By Mouth, 0 [...] 6 Refills, Maintenance, 10/26/22 11:06:00 AM EDT, [facility], Partial fill [...] 0 Refills, Maintenance, 08/28/23 1:41:00 PM EDT, [facility], 163, cm, 08/22/23 [...] MD Member Role: Lifetime Consulting Physician Address: [address] [place] [address] [address] [place] [address]- [place] Telecom: Name: Lore Clinton RN Position: [facility] AMB Nurse Member Role: Primary Care Nurse Name: Miles OTOOLE, Bernie Hardy Position: [facility] PCO Associate Professional Member Role: PCP Address: [address] [place] [address]- [place] Tele[employer]: Name: Gregg Hardy MD Position: [facility] Pulmonary MD Member Role: Lifetime Consulting Physician Address: [address] [place] [address]- [place] Telecom: Care Team Related Persons Name: ONDINA [...]
--- OUTSIDE RECORDS SUMMARY | 2024-04-22 19:39 | XMS_ITS | Continuity of Care Document ---
Author Organization [facility] David lt Address [address] [place] [address]- Support Name Relationship Address Phone HEMANT LEE [...] Unknown U navailable Care Team Providers Care Mold Closer Helper Name Role Phone Miles OTOOLE, Bernie Hardy Primary Care Physician [phone] [place] [facility] [place]/17[place]24 - 04/16/24 [facility] Adult [address] [place] [address]- Encounter Type: Triage Allergies, Adverse Reactions, Alerts Substance Criticality Severity Reaction Reaction Severity Status azithromycin 1 increases sx's Active Adhesive Bandage rash Act maddy NSAIDs [...] (oldterm) 8 03/14/09 Given 1Result Comment: [09/19/2017] [id number] 2Result Comment: [02/13/2018] [id number] 3Result Comment: [02/08/2017] [facility] [id number] 4Result Comment: [01/24/2013] ORDERRED BY [...] Maintenance, 10/15/23 8:40:00 AM EDT, [facility], Partial fill upon patient request [...] EDT, Route to Pharmacy Electronically, [facility], 163, cm, 11/22/20 12:47:00 EDT, [...] 7:45:00 AM EST, Route to Pharmacy Electronically, [facility], 163, cm, 03/07/24 8:07:00 EDT, [...] 6 Refills, Maintenance, 10/26/22 11:06:00 AM EDT, [facility], Partial fill upon patient [...] 0 Refills, Maintenance, 08/28/23 1:41:00 PM EDT, [facility], 163, cm, 08/22/23 8:24:00 [...] Personnel Name: Marisa CHAIDEZ, Neto Osorio Position: [facility] Renal MD Member Role: Lifetime Consulting Physician Address: [address] [place] [address] [address] [place] [address]- [place] Telecom: Name: Lore Clinton RN Position: [facility] AMB Nurse Member Role: Primary Care Nurse Name: Miles OTOOLE, Bernie Hardy Position: [facility] PCO Associate Professional Member Role: PCP Address: [address] [place] [address]- [place] Telecom: Name: Gregg Hardy MD Position: [facility] Pulmonary MD Member Role: Lifetime Consulting Physician Address: [address] [place] [address]- [place] Telecom: Care Team Related Persons Name: [...]
--- OUTSIDE RECORDS SUMMARY | 2024-04-22 19:40 | XMS_ITS | Continuity of Care Document ---
Author Organization [facility] David lt Address [address] [place] [address]- Support Name Relationship Address Phone HEMANT LEE [...] navailable CECIL, BLAIRE sibling Unknown Unavailable GEMINI, MERRTIT father Unknown Unavailable GEMINI, HEMANT Personal Relationship Unknown U navailable GEMINI, HEMANT Personal Relationship Unknown U navailable SKUSE, HEMANT Personal Relationship Unknown Un available SKUSE, HEMANT Personal Relationship Unknown Un available SKUSE, HEMANT Personal Relationship Unknown Un available GEMINI, HEMANT Personal Relationship Unknown U navailable Care Team Providers Care Swimming Pool Cleaner Name Role Phone Miles OTOOLE, Bernie Hardy Primary Care Physician [phone] [facility] Date[facility]s): 03/10/24 - 04/09/24 [facility] Adult [address] [place] [address]- Encounter Type: Triage Allergies, Adverse Reactions, Alerts [...] (oldterm) 8 03/14/09 Given 1Result Comment: [09/19/2017] [id number] 2Result Comment: [02/13/2018] [id number] 3Result Comment: [02/08/2017] [facility] [id number] 02 4Result Comment: [01/24/2013] ORDERRED BY [...] Maintenance, 10/15/23 8:40:00 AM EDT, [facility], Partial fill upon patient request [...] EDT, Route to Pharmacy Electronically, [facility], 163, cm, 11/22/20 12:47:00 EDT, [...] Maintenance, 03/24/24 3:28:00 PM EST, [facility], 163, cm, 03/07/24 8:07:00 EDT, Height Start Date: 03/24/24 Status: Ordered Quantity: 120.0 Unit: tablet Repeat number: 1 montelukast 10 mg oral tablet 1, tablet, By Mouth, Daily in PM, # 90 tablet, Refills 1, Tot. Refills 1, Maintenance, 04/08/24 7:45:00 AM EST, Route to Pharmacy Electronically, [facility] [...] MD Member Role: Lifetime Consulting Physician Address: [address] [place] [address] [address] [place] [address]- Telecom: Name: Lore Clinton RN Position: [facility] AMB Nurse Member Role: Primary Care Nurse Name: Bernie Aquino NP Position: [facility] PCO Associate Professional Member Role: PCP Address: [address] [facility] [place] [address]- [place] Telecom: Name: Gregg Hardy MD Position: [facility] MD Member Role: Lifetime Consulting Physician Address: [address] [place] [address]- Telecom: Care Team Related Persons Name: ONDINA SINGLETARY Name: BLAIRE JACOB Insurance Providers Guarantor name: HEMANT LEE Health Plan Information #: 1 Payer: [employer] OUT OF STATE PLANS Member Number: NA Policy Number: NA Group Number: NA Health Plan Information #: 2 Payer: MEDICARE PART B OUTPT Member Number: NA Policy Number: NA Group Number: NA Health Plan Information #: 3 [facility] Member Number: NA Policy Number: NA Group Number: NA
--- OUTSIDE RECORDS SUMMARY | 2024-04-22 19:40 | XMS_ITS | Continuity of Care Document ---
Author Organization [facility] David lt Address [address] [place] [address]- Support Name Relationship Address Phone HEMANT LEE [...] Unknown U navailable Care Team Providers Care Sail Repair Person Name Role Phone Miles OTOOLE, Bernie Hardy Primary Care Physician [facility] Date(s): 03/10/24 - 04/09/24 [facility] Adult [address] [place] [address]- Encounter Type: Triage Allergies, Adverse Reactions, Alerts [...] (oldterm) 8 03/14/09 Given 1Result Comment: [09/19/2017] [id number] 2Result Comment: [02/13/2018] [id number] 3Result Comment: [02/08/2017] [facility] [id number] 4Result Comment: [01/24/2013] ORDERRED BY [...] Maintenance, 10/15/23 8:40:00 AM EDT, [facility], Partial fill upon patient request [...] EDT, Route to Pharmacy Electronically, [facility], 163, cm, 11/22/20 12:47:00 EDT, [...] Maintenance, 03/24/24 3:28:00 PM EST, [facility], 163, cm, 03/07/24 8:07:00 EDT, [...] Personnel Name: Marisa CHAIDEZ, Neto Osorio Position: [facility] Renal MD Member Role: Lifetime Consulting Physician Address: [address] [place] [address] [address] [place] [address]- Telecom: Name: Lore Clinton RN Position: [facility] AMB Nurse Member Role: Primary Care Nurse Name: Bernie Aquino NP Position: [facility] PCO Associate Professional Member Role: PCP Address: [address] [facility] [address]- [place] Telecom: Name: Gregg Hardy MD Position: [facility] MD Member Role: Lifetime Consulting Physician Address: [address] [place] [address]- Telecom: Care Team Related Persons Name: ONDINA SINGLETARY Name: BLAIRE JACOB Insurance Providers Guarantor name: HEMANT LEE Health Plan Information #: 1 Payer: BC OUT OF STATE PLANS Member Number: NA Policy Number: NA Group Number: NA Health Plan Information #: 2 Payer: MEDICARE PART B OUTPT Member Number: NA Policy Number: NA Group Number: NA Health Plan Information #: 3 Payer: [facility] Member Number: NA Policy Number: NA Group Number: NA
--- OUTSIDE RECORDS SUMMARY | 2024-04-22 19:40 | XMS_ITS | Continuity of Care Document ---
Author Organization [facility] David lt Address [address] [place] [address]- Support Name Relationship Address Phone ROSA, HEMANT Personal Relationship Unknown U navailable LEE, EMBER [...] Unknown U navailable Care Team Providers Care Rn Dialysis Name Role Phone Bernie Aquino NP Primary Care Physician [phone] Encounter [facility] Date(s): 04/14/24 - 04/21/24 [facility] Adult [address] [place] [address]- Encounter Diagnosis Bipolar disorder(Discharge Diagnosis) - 04/15/24 Elevated liver function tests(Discharge Diagnosis) - 04/15/24 Attending Physician: Not on Staff, Attending MD Encounter Type: Office Visit Allergies, Adverse Reactions, Alerts Substance Criticality Severity Reaction Reaction Severity Status azithromycin 1 increases sx's Active morphine vomiting Active Flonase rhinitis Active Augmentin 2 increases sx Activ e Reglan double vision Active Demerol HCl vomiting Active Adhesive Bandage rash Act maddy Cats sneezing Active NSAIDs Active 1Diarrhea 2makes [...] (oldterm) 8 03/14/09 Given 1Result Comment: [09/19/2017] [id number] 2Result Comment: [02/13/2018] [id number] 3Result Comment: [02/08/2017] [facility] [id number] 4Result Comment: [01/24/2013] ORDERRED BY [...] Refills, Maintenance, 09/11/23 10:04:00 AM EDT, Tablet, [facility], Partial fill upon patient request [...] 1 Refills, Maintenance, 07/09/23 2:12:00 PM EST, [facility], 163, cm, 06/06/23 7:29:00 EST, Height, 76.2, kg, 01/06/22 8:38:00 EDT, Dry Weight Start Date: 07/09/23 Status: Ordered Quantity: 90.0 Unit: tablet Repeat number: 1 Colace sodium 100 mg oral capsule 100 mg, 1, capsule, By Mouth, 2 times a day, PRN, # 60 capsule, Refills 4, Tot. Refills 4, Maintenance, for constipation, 12/03/23 9:37:00 AM EDT, Route to Pharmacy Electronically, [facility], Partial fill upon patient request [...] 11:57:00 AM EST, Route to Pharmacy Electronically, [facility], 163, cm, 03/07/23 8:42:00 EDT, Height, 76.2, kg, 01/06/22 8:38:00 EDT, Dry Weight Start Date: 05/21/23 Status: Ordered Quantity: 60.0 Unit: Unknown Repeat number: 1 Combivent Respimat 20 mcg-100 mcg/inh inhalation aerosol 1 puffs, Inhalation, 4 times a day, # 1 each, 0 Refills, Maintenance, 10/15/23 8:40:00 AM EDT, [facility], Partial fill upon patient request [...] 3:40:00 PM EDT, Route to Pharmacy Electronically, [facility], 163, cm, 11/22/20 12:47:00 EDT, [...] inical Service Informant Bipolar disorder Discharge Diagnosis 04/15/24 Elevated liver function tests Discharge Diagnosis 04/15/24 Vital Signs Most recent to oldest [Reference Range]: 1 Height 163 cm (04/14/24 1:30 PM) Weight 80.1 kg (04/14/24 1:30 PM) Oxygen Saturation [94-100 %] 97 % (04/14/24 1:30 PM) Pulse Rate [55-90 bpm] 106 bpm *H* (04/14/24 1:30 PM) Body Mass Index [18.5-24.99 kg/m2] 30.15 kg/m2 *>HHI* (04/14/24 1:30 PM) Blood Pressure [90-138/55-84 mm Hg] 110/ 74mm Hg (04/14/24 1:30 PM) Blood pressure sites Arm, left (04/14/24 1:30 PM) Weight Obtained Via Standing scale (04/14/24 1:30 PM) Social History Social History Type Response Smoking Status Never smoker entered on: 05/12/13 Sex Sex Representation Female (finding) Note * Ludy Valdez: PERFORM Event Display: Patient Education/Instruction Authored Date: [id number] Ambulatory Adult Visit Summary [facility] Adult [facility] [address] [place], [place] [id number] Name: HEMANT LEE : 1975?? Visit: 04/14/2024 13:23?? Ambulatory Visit Instructions ?? Your Care Team Primary Care Provider Bernie Aquino NP? This Visit Provider Bernie Aquino NP Your Diagnosis Iron deficiency Hypomagnesemia Vitals Signs Pulse Rate:??106 bpm??High Height: 163 cm Systolic Blood Pressure: 110 mm Hg Weight: 80.1 kg Diastolic Blood Pressure: 74 mm Hg Body Mass Index:??30.15 kg/m2??Critical Oxygen Saturation: 97 % Body surface area: 1.9 What to do next Scheduled Follow-Up Appointments 2024 8:10 AM EST ?? With: Berine Aquino NP Where: [facility] [address] [place] [address]- Status: Pending Future Orders Iron Level - Routine, Once, 04/14/24 14:03:00 EST, Future Order, [facility], Blood?? Ferritin - Routine, Once, 04/14/24 14:03:00 EST, Future Order, [facility], Blood?? Magnesium Level - Routine, Once, 04/14/24 14:09:00 EST, Future Order, [facility], Blood?? Medications The list [...] tab(s) Oral Daily replace 20mg ?? Unchanged Cetirizine (cetirizine 10 mg oral tablet) 1 tab(s) Oral Daily Unchanged Colchicine (colchicine 0.6 mg oral tablet) 3 tab(s) Oral Daily Unchanged Cyclobenzaprine (cyclobenzaprine 10 mg oral tablet) 1 tab(s) Oral 3 times a day as needed for Spasm Unchanged Docusate (Colace sodium 100 mg oral capsule) 1 capsule Oral Twice a day as needed for for constipation Duration: 30 Days Unchanged dulaglutide (Trulicity Pen 0.75 mg/ 0.5 mL subcutaneous solution) 0.5 Milliliter Subcutaneous Injection Every week rotate injection sites ?? Unchanged Durable Medical Equipment (Contour Next test [...] and 1.5 tablets on sunday ?? Unchanged Coinjock (lithium 150 mg oral capsule) 3 capsule [...] Daily in PM Unchanged Multivitamin Daily Unchanged Norethindrone (Jade) 0.35 Milligram Oral Daily Unchanged Nortriptyline 10 Milligram Oral Unchanged omalizumab (Xolair 150 mg subcutaneous injection) [...] tablet) 1 tab(s) Oral PRN ?? Unchanged Topiramate (topiramate 50 mg oral tablet) See instructions TAKE 1 TABLET IN THE MORNING AND 3 TABLETS AT BEDTIME. ?? Unchanged Venlafaxine (venlafaxine 50 mg oral tablet) 1 tab(s) Oral Twice a day Test Performed Below is a partial list of the tests performed during your Visit. You may have had other tests and procedures not included in this list. Please discuss all test results with your provider. Ferritin?-- Results Pending -- Iron Level?-- Results Pending -- Magnesium Level?-- Results Pending -- Medications and Immunizations Administered [...] are strongly encouraged to quit. Please call [employer] [facility] at [phone] or [phone] ([phone]) or log in to [email or web address] for referrals to smoking cessation programs. ?? The National Suicide Prevention Hotline is available 04/12 if you or someone you know needs to find a reason to keep living. By calling 2-832-733-[employer] (4836) you'll be connected to a skilled, trained counselor at a crisis center in your area. [facility] Health Portal You can view and manage your care through the patient portal or by using a health care chinmay of your choosing. [employer] is a website that allows you to securely view your medical information including your hospital discharge summary, office visit summaries, medications and follow-up visits. You can also request appointments, renew medications, and request access to your medical information using a health care chinmay of your choosing, or just ask a question. You can enroll at [email or web address] or register during your next office visit. [facility], in keeping with [facility] guidance, no longer requires face [...] primary care provider, you may find a [facility] provider by calling [facility] [employer] [facility] at [phone]. Patient Care team information Care Team Personnel Name: Marisa CHAIDEZ, Neto Osorio Position: [facility] Renal MD Member Role: Lifetime Consulting Physician Address: [address] [place] [address] [address] [facility] [address]- [place] Telecom: Name: Lore Clinton RN Position: [facility] RN Member Role: Primary Care Nurse Name: Bernie Aquino NP Position: [facility] PCO Associate Professional Member Role: PCP Address: [address] [place] [address]- [place] Tele[employer]: Name: Gregg Hardy MD Position: [facility] Pulmonary MD Member Role: Lifetime Consulting Physician Address: [address] [place] [address] Telecom: Care Team Related Persons Name: ONDINA SINGLETARY Name: BLAIRE JACOB Insurance Providers Guarantor name: HEMANT LEE Health Plan Information #: 1 Payer: OUT OF STATE PLANS Member Number: [id number] Policy Number: NA Group Number: NA Health Plan Information #: 3 Payer: [facility] Member Number: [id number] Policy Number: NA Group Number: NA Health Plan Information #: 2 Payer: MEDICARE PART B OUTPT Member Number: [id number] Policy Number: NA Group Number: NA
--- OUTSIDE RECORDS SUMMARY | 2024-04-22 19:40 | XMS_ITS | Data Portability ---
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 Symptoms have progressed since her last visit. PLAN: At this point, I would like to obtain updated plain radiographs to assess for potential progression of osteoarthritis, but also an updated MRI for potential pre-surgical planning. The question overall would be if she is an adequate candidate for hip arthroscopy or if a consultation for total hip replacement would be considered. Overall we have concerns with regard to her long chain beamer outcome after arthroscopy given the mild underlying osteoarthritis, medical comorbidities. In our view, she appears at significantly increased risk for persistent pain and early conversion to total hip replacement. We discussed this with the patient at length and her as well. We also discussed with her the long postoperative recovery. In the end I do not think she will be an ideal candidate, however, if arthritis is not pronounced enough, it certainly would need to be considered. We may consider a second opinion regarding total joint replacement. The patient did complete the COVID-19 screening handout and was deemed healthy to move forward with this appointment. This visit is a [id number] visit during the COVID-19 pandemic Public Health Emergency. Based on my clinical judgment, I felt that this visit could not be provided safely and appropriately via TeleHealth. Based on available information prior to presentation, the patient had a high risk of significant worsening and potential functional impairment affecting ADLs if the visit was not completed today. The patient was seen in the office after following PPE use, Workforce Safety, Patient Safety and Infection Control protocols for all services provided today in accordance with [facility] and CDC guidelines. There was additional practice expense incurred due to the Public Health Emergency. This additional expense includes but is not limited to: ? ? Additional clinical staff and medical technical producer time for pre-screening ? ? Time spent reviewing COVID social distancing guidelines, precautions, instructions, and signage ? ? Patient symptom checking upon arrival ? ? Application, removal, and purchasing of additional PPE ? ? Additional cleaning of exam room, equipment, supplies, as well as cleaning supplies for that purpose. [email or web address] Not available 07/08/2021 12:37:18 07/26/2021 07/26/2021 Assessment: Carlinpatricia t hip degenerative labral tear in setting of underlying femoral acetabular impingement was also mild degenerative changes. Concern is for increased risk of persistent pain early conversion total hip replacement after hip arthroscopy. Plan: At this point I would like to see 1 my colleagues for another opinion regarding benefits of total hip replacement. We discussed with her that overall this would likely give her the more predictable long-term outcome she is looking for. [email or web address] Not available 07/26/2021 12:42:15 03/10/2022 03/10/2022 ASSESSMENT Concern is for possible occult fracture after fall and possible progression of posttraumatic osteoarthritis. PLAN At this point, we would like to obtain an updated MRI on both hips to rule out fracture, also based on that potentially consider if ruled out, an intra-articular injection for diagnostic and therapeutic purposes. [email or web address] Not available 03/11/2022 10:07:34 04/12/2022 04/12/2022 ASSESSMENT Currently his symptoms seem to be largely related to SI joint dysfunction, lower lumbar axial back pain. This was after traumatic event. PLAN At this point, I would like her to see Dr. Medardo Quintero for an evaluation and possible injection of SI joints and further treatment recommendations. She will follow up with us as needed afterwards. [email or web address] Not available 04/13/2022 08:52:11 01/17/2023 01/17/2023 ASSESSMENT Right hip symptomatic labral tear. Overall, improving with physical therapy. She had remote injection which she would potentially consider repeating in the future. PLAN At this point, we provided a new physical therapy prescription. She will follow up with us in 6 weeks. At that point, she should request injection, we would set up an ultrasound-guided intra-articular injection for diagnostic and therapeutic purposes. [email or web address] Not available 01/18/2023 02:51:13 Plan of Treatment Reminders Order Date Submit Date Provider Last Modified By Organization Details Last Modified Time Details Appointments None recorded. Lab None recorded. Referral physical therapist referral - 2-3 times a week as tolerated Dx: Labral tear and glute tendonitis 2022 023 [email or web address] Not available 15:58:27 Procedures None recorded. Surgeries None recorded. Imaging MRI, hip, w/o contrast - PLEASE CALL THE PT TO SCHEDULE Right hip MRI to include femoral anteversion assess labral tear, AVN and loose bodies 2021 022 [email or web address] [facility] [place], [address], [place], [address], 09:34:34 Medication Orders None recorded. Patient TargetsNo targets recorded. Patient InstructionsNo instructions recorded. Reason for Referral Physical Therapist Referral for Complete tear, hip ligament 2-3 times a week as tolerated Dx: Labral tear and glute tendonitis Referring Physician: Wang Valenzuela, Orthopedic Surgery, Encounter Date: 01/17/2023 Results Created Date Observation Date Name Description Value Unit Range Abnormal Flag Note LastModifiedBy Organization Detail LastModifiedTime 07/06/1907/06/2021 xr hip right 4vw_W or wo pelvi s Fin al Report EXAM#: [id number] PROCED URE: DXR 0178 XR HIP RIGHT 4vw_w or wo Pelvis Jul 06 2021 12:16P M CLINIC AL INDICA TION: pain in right hip 4 weight bearin g views of the right hip are obtain ed, and compar ed to Octobe r 2020. There is mild joint space narrow ing axiall y with eburna tion and spurri ng compat ible with osteoa rthrit is of the right hip. Femora l head mainta ins normal contou r withou t fractu re or deform ity seen. The bony pelvis is otherw ise preser stu. NUMBER OF IMAGES : 4 Report ed by : MONCHO CASTRO M.D. On: Jul 06 2021 1:12P Signed by: MONCHO RAMÍREZ M.D. On: Jul 06 2021 1:13P [email or web address] [facility] [address], [place], [address], 07/06/2021 14:45:47 07/19/19 22 07/16/2021 MRI, hip, w/o contr ast Pre limina ry Report EXAM#: [id number] PROCED URE: MR [id number] MRI HIP RIGHT Jul 16 2021 12:06P M CLINIC AL INDICA TION: PAIN IN RIGH HIP EXAMIN ATION: MRI RIGHT HIP INDICA TION: Chroni c right hip pain. TECHNI QUE: Noncon trast MR imagin g of the RIGHT hip was perfor med in multip le planes with multip le sequen shemar includ ing proton densit y fat sat radial sequen ce of the hip and large field- of-vie w axial T1-jason ghted imagin g throug h bilate ral hips, bilate ral knees, and bilate ral ankles accord ing to Daniel quintero ol. COMPAR TOPHER: RIGHT HIP MRI FROM 021. FINDIN GS: Redemo nstrat ed anteri or labral tear, simila r appear ance to prior MRI. No associ ated para labral cyst. Focal modera te grade cartil age loss along the adjace nt anteri or acetab ulum measur ing approx imatel y 5 mm in AP dimens ion. No signif icant hip joint effusi on. No femora l head or femora l neck abnorm ality is presen t. Alpha angle measur es: 50 degree s. Femora l neck anteve rsion measur es: 12 degree s. No abnorm ality is presen t at the greate r trocha nter or gluteu s minimu s or gluteu s medius tendon s. Normal iliops oas and lesser trocha nter. No muscle abnorm ality is identi fied. No soft tissue mass. No abnorm ality is presen t at the hip adduct or tendon s or pubic symphy sis or pubic rami. No sacral or sacroi liac abnorm ality. Pirifo rmis muscle s are symmet jl. No eviden ce of ischio femora l imping ement. The proxim al hamstr ing tendon comple x insert ion at the ischiu m is intact . No pelvis mass or free fluid. No suspic ious mass identi fied on limite d axial T1-jason ghted imagin g throug h both hips, knees, and ankles . Large field- of-vie w imagin g of the left hip demons trates no signif icant abnorm ality. 6 IMPRES BHAKTI: Anteri or labral tear with focal area of adjace nt cartil age loss as descri bed above. NUMBER OF IMAGES : [id number] Report ed by : CECIL VELARDE M.D. On: Jul 18 2021 9:11A Signed by: On: prem [facility] [address], [place], [address], 07/18/2021 14:51:07 07/19/19 22 07/16/2021 MRI, hip, w/o contr ast Fin al Report EXAM#: [id number] PROCED URE: MR [id number] MRI HIP RIGHT Jul 16 2021 12:06P M CLINIC AL INDICA TION: PAIN IN RIGH HIP EXAMIN ATION: MRI RIGHT HIP INDICA TION: Chroni c right hip pain. TECHNI QUE: Noncon trast MR imagin g of the RIGHT hip was perfor med in multip le planes with multip le sequen shemar includ ing proton densit y fat sat radial sequen ce of the hip and large field- of-vie w axial T1-jason ghted imagin g throug h bilate ral hips, bilate ral knees, and bilate ral ankles accord ing to Daniel quintero ol. COMPAR TOPHER: RIGHT HIP MRI FROM 021. FINDIN GS: Redemo nstrat ed anteri or labral tear, simila r appear ance to prior MRI. No associ ated para labral cyst. Focal modera te grade cartil age loss along the adjace nt anteri or acetab ulum measur ing approx imatel y 5 mm in AP dimens ion. No signif icant hip joint effusi on. No femora l head or femora l neck abnorm ality is presen t. Alpha angle measur es: 50 degree s. Femora l neck anteve rsion measur es: 12 degree s. No abnorm ality is presen t at the greate r trocha nter or gluteu s minimu s or gluteu s medius tendon s. Normal iliops oas and lesser trocha nter. No muscle abnorm ality is identi fied. No soft tissue mass. No abnorm ality is presen t at the hip adduct or tendon s or pubic symphy sis or pubic rami. No sacral or sacroi liac abnorm ality. Pirifo rmis muscle s are symmet jl. No eviden ce of ischio femora l imping ement. The proxim al hamstr ing tendon comple x insert ion at the ischiu m is intact . No pelvis mass or free fluid. No suspic ious mass identi fied on limite d axial T1-jason ghted imagin g throug h both hips, knees, and ankles . Large field- of-vie w imagin g of the left hip demons trates no signif icant abnorm ality. 6 IMPRES BHAKTI: Anteri or labral tear with focal area of adjace nt cartil age loss as descri bed above. NUMBER OF IMAGES : [id number] Report ed by : CECIL VELARDE M.D. On: Jul 18 2021 9:11A Signed by: BRITTNI WASHINGTON M.D. On: Jul 18 2021 11:57A [email or web address] [facility] [address] [place], [address], 07/18/2021 14:01:26 03/29/20 22 03/27/2022 MRI hip left Fin al Report EXAM#: [id number] PROCED URE: MR [id number] MRI HIP LEFT Mar 27 2022 2:12PM CLINIC AL INDICA TION: pain in left and right hips PROCED URE: Left hip MRI withou t contra st REASON FOR EXAM: Pain. No prior surger y. COMPAR TOPHER: None TECHNI QUE: Left hip MRI was perfor med withou t contra st and 10 diagno stic sequen shemar were obtain ed. Limite d imagin g of the knees and ankles . FINDIN GS: The hip joint is congru ent. No joint effusi on. Superi or aspect of the femora l head and acetab ulum exhibi ts areas of cartil age fibril lation and partia l thickn ess loss deline ated by interm ediate PD fat-sa t signal (coron al PD fat-sa t images 10 and 11). Betwee n 1 and 2 o'cloc k, abnorm al hyperi ntense PD fat-sa t signal extend s into the base of the labrum , compat ible with tear (sagit joseph PD fat-sa t image 14). Associ ated cyst dissec ts superi benjamín, measur ing 1 cm supero inferi or by 0.3 cm tate drug worker ior by 0.3 cm mediol ateral (axial T2 images 5-7). Left femora l anteve rsion angle measur es 16 degree s. Acetab ular anteve rsion angle measur es 6 degree s. Center edge angle measur es 28 degree s with standa rd acetab ular covera ge. Alpha angle measur es 51 degree s with spheri kamron femora l head Iliops oas muscle and tendon are normal . Rectus femori s muscle and tendon are normal . Hip abduct or tendon s are intact . No fluid in the greate r trocha nteric bursa. Gluteu s minimu s and medius muscle bulk is preser stu. Hamstr ing muscle s and tendon s are intact . Sciati c nerve and femora l neurov ascula r bundle are normal . No acute intrap eriton eal abnorm ality. Imaged portio n of the contra latera l hip is withou t acute abnorm ality. Bone signal is normal . No soft tissue collec tion. Imaged portio ns of the knees and ankles are withou t acute abnorm ality. IMPRES BHAKTI: 1. Mild femora l-acet abular chondr osis. 2. Tate superi or labral tear with parala bral cyst. NUMBER OF IMAGES : [id number] Report ed by : BRITTNI WASHINGTON M.D. On: Mar 29 2022 9:14A Signed by: BRITTNI WASHINGTON M.D. On: Mar 29 2022 9:14A [email or web address] [facility] [address], [place], [address], 03/29/2022 13:42:34 03/29/20 22 03/27/2022 MRI, hip, w/o contr ast Fin al Report EXAM#: [id number] PROCED URE: MR [id number] MRI HIP RIGHT Mar 27 2022 2:12PM CLINIC AL INDICA TION: pain in left and right hips PROCED URE: Right hip MRI withou t contra st REASON FOR EXAM: Pain. No prior surger y COMPAR TOPHER: None TECHNI QUE: Right hip MRI was perfor med withou t contra st and 10 diagno stic sequen shemar were obtain ed. Limite d imagin g of the knees and ankles . FINDIN GS: The right hip joint is congru ent. No joint effusi on. The tate superi or acetab ulum exhibi ts minima l chondr al surfac e irregu larity with corres pondin g chondr al surfac e irregu larity of the superi or aspect of the femora l head (coron al PD fat-sa t images 8 and 9; sagitt al PD fat-sa t image 11). Tate superi or labrum exhibi ts hyperi ntense PD fat-sa t linear signal at its base, compat ible with tate superi or labral tear, locate d at 3:00 (sagit joseph PD fat-sa t images 9-11). Right femora l anteve rsion angle measur es 18 degree s. Acetab ular anteve rsion angle measur es 12 degree s. Center edge angle measur es 26 degree s with standa rd acetab ular covera ge. Alpha angle measur es 46 degree s with spheri kamron femora l head. Iliops oas muscle and tendon are normal . Rectus femori s muscle and tendon are normal . Hip abduct or tendon s are intact . No fluid in the greate r trocha nteric bursa. Gluteu s minimu s and medius muscle bulk is preser stu. Hamstr ing muscle s and tendon s are intact . Sciati c nerve and femora l neurov ascula r bundle are normal . No acute intrap eriton eal abnorm ality. IUD is in situ. Two left adnexa l cysts are eviden t, the larger od which measur es 3.8 cm long axis (coron al STIR image 16). Bone signal is normal . No soft tissue collec tion. Imaged portio ns of the knees and ankles are withou t acute abnorm ality. IMPRES BHAKTI: 1. Minima l femora l-acet abular chondr osis. 2. Tate superi or labral tear is small. 3. Left adnexa l cysts are within the physio logic range for a premen opausa l female . NUMBER OF IMAGES : [id number] Report ed by : BRITTNI WASHINGTON M.D. On: Mar 29 2022 9:25A Signed by: BRITTNI WASHINGTON M.D. On: Mar 29 2022 9:25A [email or web address] [facility] [address] [place], [address], 03/29/2022 13:42:48 01/18/20 23 01/17/2023 xr hip right 4vw_W or wo pelvi s Fin al Report EXAM#: [id number] PROCED URE: DXR 0178 XR HIP RIGHT 4vw_w or wo Pelvis Jan 17 2023 11:59A M CLINIC AL INDICA TION: PAIN IN RIGHT HIP FINDIN GS: Right hip Tonnis grade 1. Approx imate latera l center -edge angle is 34 degree s. Ventra l hernia repair coils and IUD are noted. NUMBER OF IMAGES : 4 Report ed by : CHAVA GUADARRAMA M.D. On: Jan 17 2023 12:22P Signed by: CHAVA SORENSON M.D. On: Jan 17 2023 12:22P [email or web address] [facility] [address] [place], [address], 01/17/2023 12:38:51 Result Notes None recorded. Problems Name Problem SNOMED Code Status Onset Date Resolution Date Notes Provider Name and Address Organization Details Recorded Time Acetabular labrum tear 015942886 Active 021 Enedina murphy [facility] 14:17:00 Problem Notes None recorded. Procedures Surgical History Date Name Laterality Status Provider Name and Address Organization Details Recorded Time 022 parathyroidectomy completed Sonya Nation [facility] 04/12/2022 13:46:24 018 Orthopaedic Surgery completed Lexii Pacheco [facility] 02/23/2021 13:14:29 009 Orthopaedic Surgery completed Lexii Pacheco [facility] 02/23/2021 13:14:38 000 Orthopaedic Surgery completed Lexii Pacheco [facility] 02/23/2021 13:14:46 Imaging Results Imaging Date Name Status LastModified by Organiz ation Details LastModified Time 07/06/2021 xr hip right 4vw_W or wo pelvis completed [address] [facility] [address] [place], [address], 07/06/2021 14:45:47 07/16/2021 MRI, hip, w/o contrast completed [address] [facility] [address] [place], [address], 07/18/2021 14:51:07 07/16/2021 MRI, hip, w/o contrast completed [address] [facility] [address] [place], [address], 07/18/2021 14:01:26 03/27/2022 MRI hip left completed [address] [facility] [address] [place], [address], 03/29/2022 13:42:34 03/27/2022 MRI, hip, w/o contrast completed [address] [facility] [address] [place], [address], 03/29/2022 13:42:48 01/17/2023 xr hip right 4vw_W or wo pelvis completed [email or web address] [facility] [address], [place], [address], 01/17/2023 12:38:51 Procedure Notes None recorded. Medical Equipment None Reported. Allergies Allergen ID Allergen Name Allergen Category Reaction Reaction Severity Criticality Documentation Date Start Date Code Code System Note Provider Name and Address Organization Details Recorded Time 880426 morphine medicatio n Not available Not available Not available 02/23/2021 7052 RxNorm Lexii Pacheco [facility] 13:07:48 133389 adhesive tape environme nt,medica tion Not available Not available Not available 02/23/[facility] 13:07:48 536158 Demerol medicatio n Not available Not available Not available 02/23/2021 86194 1 RxNorm Lexii Pacheco [facility] 13:07:48 798193 Non-stero idal anti-infl ammatory agent (product) medicatio n other Not available Not available 02/23/2021 63271 005 SNOMED IgG defic iency , canno t take. Lexii Pacheco [facility] 13:13:07 Medications Name Sig Start Date Stop Date Status Note LastModified by Organization Details LastModified Time cap-4 (2) w/o baclofen cream APPLY 1-3 GRAMS TO THE AFFECTED AREA 3-4 TIMES DAILY (RIGHT FOOT) 03/10 completed Not Available Not Available Not Available cyclobenzap rine 10 mg tablet TAKE ONE TABLET BY MOUTH THREE TIMES A DAY NEEDED FOR SPASMS 04/12 completed Not Available Not Available Not Available amoxicillin 500 mg capsule TAKE 1 CAPSULE BY MOUTH TWICE DAILY. active Not Available Not Available No t Available atorvastati n 40 mg tablet TAKE ONE TABLET BY MOUTH EVERY DAY 03/10 completed Not Available Not Available Not Available buspirone 5 mg tablet TAKE ONE TABLET BY MOUTH THREE TIMES A DAY active Not Available Not Available No t Available metformin 500 mg tablet TAKE TWO TABLETS BY MOUTH TWICE A DAY active Not Available Not Available No t Available oxcarbazepi ne 150 mg tablet TAKE ONE TABLET BY MOUTH TWICE A DAY active Not Available Not Available No t Available potassium chloride ER 10 mEq capsule,ext ended release TAKE TWO CAPSULES BY MOUTH EVERY DAY 04/12 completed Not Available Not Available Not Available prednisone 10 mg tablet TAKE 4 TABLETS BY MOUTH ON DAYS ONE AND TWO, REDUCE BY ONE TABLET EVERY OTHER DAY 03/10 completed Not Available Not Available Not Available cefuroxime axetil 250 mg tablet TAKE 1 TABLET BY MOUTH EVERY 12 HOURS 03/10 completed Not Available Not Available Not Available atorvastati n 20 mg tablet TAKE ONE TABLET BY MOUTH EVERY DAY; REPLACING 10MG active Not Available Not Available No t Available benztropine 0.5 mg tablet TAKE ONE TABLET BY MOUTH TWICE A DAY active Not Available Not Available No t Available albuterol sulfate 2.5 mg/3 mL (0.083 %) solution for nebulizatio n INHALE 1 VIAL VIA NEBULIZER EVERY 4 TO 6 HOURS 04/12 completed Not Available Not Available Not Available cetirizine 10 mg tablet TAKE ONE TABLET BY MOUTH EVERY DAY active Not Available Not Available No t Available atorvastati n 10 mg tablet TAKE ONE TABLET BY MOUTH EVERY DAY 04/12 completed Not Available Not Available Not Available cefpodoxime 200 mg tablet TAKE ONE TABLET BY MOUTH TWICE A DAY active Not Available Not Available No t Available azithromyci n 250 mg tablet TAKE 1 TABLET BY MOUTH ONCE DAILY. 04/12 completed Not Available Not Available Not Available fluconazole 150 mg tablet TAKE ONE TABLET BY MOUTH EVERY DAY FOR 3 DAYS active Not Available Not Available No t Available benzonatate 200 mg capsule TAKE 1 TABLET 3 TIMES DAILY NEEDED FOR COUGH. 03/10 completed Not Available Not Available Not Available sumatriptan 100 mg tablet TAKE 1 TABLET BY MOUTH DAILY NEEDED FOR MIGRAINES . INTRUCTIO NS: MAY REPEAT DOSE IN 2 HOURS IF NEEDED. 03/10 completed Not Available Not Available Not Available hydrocodone 5 mg-acetamin ophen 325 mg tablet TAKE ONE TO TWO TABLETS BY MOUTH EVERY FOUR TO SIX HOURS 03/10 completed Not Available Not Available Not Available ondansetron HCl 8 mg tablet TAKE ONE TABLET BY MOUTH THREE TIMES A DAY NEEDED FOR NAUSEA AND VOMITING 04/12 completed Not Available Not Available Not Available fluconazole 200 mg tablet TAKE ONE TABLET BY MOUTH EVERY DAY active Not Available Not Available No t Available ondansetron HCl 4 mg tablet TAKE 1 OR 2 TABLETS BY MOUTH EVERY 12 HOURS NEEDED FOR NAUSEA 03/10 completed Not Available Not Available Not Available prednisone 20 mg tablet TAKE 2 TABLETS (40MG) BY MOUTN ONCE DAILY 03/10 completed Not Available Not Available Not Available clonazepam 0.5 mg tablet TAKE 1/2 (HALF) TABLET BY MOUTH DAILY NEEDED FOR AGITATION 04/12 completed Not Available Not Available Not Available rizatriptan 10 mg tablet TAKE ONE TABLET BY MOUTH NEEDED FOR MIGRAINE MAY REPEAT IN 2 HOURS IF UNRESOLVE D, DO NOT EXCEED 30MG IN 24 HOURS active Not Available Not Available No t Available clonazepam 1 mg tablet TAKE 1 TABLET BY MOUTH AT BEDTIME NEEDED FOR ANXIETY 2021 active Not Available Not Available Not Avai lable moxifloxaci n 400 mg tablet TAKE 1 TABLET BY MOUTH EVERY DAY 03/10 completed Not Available Not Available Not Available hydroxyzine pamoate 50 mg capsule TAKE ONE CAPSULE BY MOUTH TWICE A DAY NEEDED 2021 active Not Available Not Available Not Avai lable oxycodone 5 mg/5 mL oral solution TAKE 1 TEASPOONF UL (5ML) BY MOUTH EVERY 6 HOURS. 03/10 completed Not Available Not Available Not Available lithium carbonate ER 300 mg tablet,exte nded release TAKE TWO TABLETS BY MOUTH AT BEDTIME 04/12 completed Not Available Not Available Not Available oxcarbazepi ne 300 mg tablet TAKE ONE TABLET BY MOUTH TWICE A DAY active Not Available Not Available No t Available ciprofloxac in 250 mg tablet TAKE 1 TABLET BY MOUTH EVERY 12 HOURS FOR 5 DAYS DAYS 03/10 completed Not Available Not Available Not Available ciprofloxac in 500 mg tablet TAKE ONE TABLET BY MOUTH TWICE A DAY FOR 10 DAYS active Not Available Not Available No t Available omeprazole 40 mg capsule,del ayed release TAKE ONE CAPSULE BY MOUTH TWICE A DAY active Not Available Not Available No t Available tramadol 50 mg tablet TAKE ONE TABLET BY MOUTH FOUR TIMES A DAY NEEDED FOR SEVERE PAIN active Not Available Not Available No t Available triamcinolo ne acetonide 0.1 % topical cream APPLY TWICE DAILY TO THE AFFECTED AREAS OF ECZEMA FOR UP TO 2 WEEK ON AND 1 WEEK OFF. NOT FOR FACE OR BODY FOLDS 03/10 completed Not Available Not Available Not Available amoxicillin 500 mg tablet TAKE TWO TABLETS BY MOUTH TWICE A DAY FOR 4 DAYS 03/10 completed Not Available Not Available Not Available levothyroxi ne 25 mcg tablet TAKE ONE TABLET BY MOUTH EVERY DAY active Not Available Not Available No t Available Kenalog 40 mg/mL suspension for injection Take 1 mg by injection route. 03/16 completed Not Available Not Available Not Available amiloride 5 mg tablet TAKE ONE TABLET BY MOUTH EVERY DAY active Not Available Not Available No t Available amoxicillin 875 mg tablet TAKE ONE TABLET BY MOUTH TWICE A DAY FOR 14 DAYS active Not Available Not Available No t Available hydromorpho ne 2 mg tablet TAKE ONE TABLET BY MOUTH EVERY 4 HOURS NEEDED FOR MODERATE PAIN. DO NOT DRINK OR DRIVE WHILE TAKING THIS MEDICATIO N. 03/10 completed Not Available Not Available Not Available ziprasidone 20 mg capsule TAKE ONE CAPSULE BY MOUTH EVERY DAY WITH FOOD 04/12 completed Not Available Not Available Not Available doxycycline monohydrate 100 mg capsule TAKE ONE CAPSULE BY MOUTH TWICE A DAY FOR 10 DAYS active Not Available Not Available No t Available levothyroxi ne 50 mcg tablet TAKE ONE TABLET BY MOUTH EVERY DAY; GO FOR BLOOD TEST IN 6 WEEKS active Not Available Not Available No t Available clotrimazol e-betametha sone 1 %-0.05 % topical cream APPLY TO THE AFFECTED AND SURROUNDI NG AREAS OF SKIN BY TOPICAL ROUTE 2 TIMES PER DAY IN THE MORNING AND EVENING FOR TWO WEEKS 03/10 completed Not Available Not Available Not Available benztropine 1 mg tablet TAKE ONE-HALF TABLET BY MOUTH EVERY MORNING AND TAKE ONE TABLET BY MOUTH AT BEDTIME 03/10 completed Not Available Not Available Not Available perphenazin e 4 mg tablet TAKE ONE TABLET BY MOUTH AT BEDTIME 03/10 completed Not Available Not Available Not Available omeprazole 20 mg capsule,del ayed release TAKE ONE CAPSULE BY MOUTH TWICE A DAY 03/10 completed Not Available Not Available Not Available oxcarbazepi ne 600 mg tablet TAKE ONE TABLET BY MOUTH TWICE A DAY active Not Available Not Available No t Available montelukast 10 mg tablet TAKE ONE TABLET BY MOUTH EVERY EVENING active Not Available Not Available No t Available hydrochloro thiazide 25 mg tablet TAKE ONE TABLET BY MOUTH EVERY DAY active Not Available Not Available No t Available mupirocin 2 % topical ointment APPLY TOPICALLY 3 TIMES DAILY FOR 5 DAYS. active Not Available Not Available No t Available clobetasol 0.05 % topical ointment APPLY ONE APPLICATI ON EXTERNAL TWICE A DAY TO AREAS OF ECZEMA FOR UP TO TWO WEEKS ON, AND THEN TAKE ONE WEEK BREAK. REPEAT NEEDED active Not Available Not Available No t Available epinephrine 0.3 mg/0.3 mL injection, auto-inject or USE NEEDED FOR ANAPHYLAX IS SHOCK. CALL 911 AFTER INJECTION . 04/12 completed Not Available Not Available Not Available Pepcid 20 mg tablet Take 1 tablet twice a day by oral route. 04/12 completed Not Available Not Available Not Available levofloxaci n 500 mg tablet TAKE ONE TABLET BY MOUTH EVERY 24 HOURS UNTIL FINISHED 03/10 completed Not Available Not Available Not Available methylpredn isolone 4 mg tablets in a dose pack TAKE SIX TABLETS FOR 1 DAY, THEN FIVE TABLETS FOR 1 DAY, THEN FOUR TABLETS FOR 1 DAY,THEN THREE TABLETS FOR 1 DAY, THEN TWO TABLETS FOR 1 DA 03/10 completed Not Available Not Available Not Available ipratropium bromide 42 mcg (0.06 %) nasal spray INHALE 2 SPRAYS IN EACH NOSTRIL AT BEDTIME 03/10 completed Not Available Not Available Not Available colchicine 0.6 mg tablet TAKE ONE TABLET BY MOUTH TWICE A DAY active Not Available Not Available No t Available hydroxyzine HCl 10 mg tablet TAKE THREE TABLETS BY MOUTH AT BEDTIME active Not Available Not Available No t Available cefdinir 300 mg capsule TAKE ONE CAPSULE BY MOUTH EVERY 12 HOURS FOR 7 DAYS 03/10 completed Not Available Not Available Not Available metformin ER 500 mg tablet,exte nded release 24 hr TAKE 2 TABLETS BY MOUTH TWICE A DAY WITH MEALS 04/12 completed Not Available Not Available Not Available lisinopril 2.5 mg tablet TAKE ONE TABLET BY MOUTH EVERY DAY 03/10 completed Not Available Not Available Not Available doxycycline hyclate 100 mg tablet TAKE ONE CAPSULE BY MOUTH TWICE A DAY FOR 10 DAYS active Not Available Not Available No t Available calcitriol 0.25 mcg capsule TAKE ONE CAPSULE BY MOUTH TWICE A DAY 04/12 completed Not Available Not Available Not Available ipratropium bromide 21 mcg (0.03 %) nasal spray INHALE TWO SPRAYS IN THE EACH NOSTRIL THREE TIMES A DAY DIRECTED. 03/10 completed Not Available Not Available Not Available Microlet Lancet CHECK BLOOD GLUCOSE 3 TIMES DAILY AND NEEDED. 04/12 completed Not Available Not Available Not Available oxycodone 5 mg tablet TAKE ONE TABLET BY MOUTH EVERY 6 HOURS NEEDED FOR PAIN active Not Available Not Available No t Available clindamycin 1 % lotion APPLY ONE APPLICATI ON EXTERNALL Y UNDER BREASTS ONCE TO TWICE DAILY 03/10 completed Not Available Not Available Not Available atomoxetine 10 mg capsule TAKE ONE CAPSULE BY MOUTH EVERY MORNING 04/12 completed Not Available Not Available Not Available cyclobenzap rine 5 mg tablet TAKE 1 TABLET BY MOUTH 3 TIMES DAILY NEEDED FOR MUSCLE SPASMS. 03/10 completed Not Available Not Available Not Available topiramate 50 mg tablet TAKE 1 TABLET IN THE MORNING AND 3 TABLETS AT BEDTIME active Not Available Not Available No t Available nitrofurant oin monohydrate /macrocryst als 100 mg capsule TAKE ONE CAPSULE BY MOUTH TWICE A DAY FOR 5 DAYS active Not Available Not Available No t Available sumatriptan 05/18 completed Not Available Not Available Not Available colchicine 03/10 completed Not Available Not Available Not Available oxcarbazepi ne 03/10 completed Not Available Not Available Not Available omeprazole 03/10 completed Not Available Not Available Not Available hydroxyzine HCl 04/12 completed Not Available Not Available Not Available Colace 04/12 completed Not Available Not Available Not Available lamotrigine 03/10 completed Not Available Not Available Not Available montelukast 03/10 completed Not Available Not Available Not Available lisinopril 03/10 completed Not Available Not Available Not Available cyclobenzap rine 03/10 completed Not Available Not Available Not Available rizatriptan 04/12 completed Not Available Not Available Not Available metformin 03/10 completed Not Available Not Available Not Available clonazepam 03/10 completed Not Available Not Available Not Available topiramate 03/10 completed Not Available Not Available Not Available Fioricet 04/12 completed Not Available Not Available Not Available ondansetron 03/10 completed Not Available Not Available Not Available Epi E-Z Pen active Not Available Not A vailable Not Available Xolair active Not Available Not Availa ble Not Available Gammagard Liquid 04/12 completed Not Available Not Available Not Available Januvia 50 mg tablet TAKE ONE TABLET BY MOUTH EVERY DAY 04/12 completed Not Available Not Available Not Available Januvia 100 mg tablet TAKE ONE TABLET BY MOUTH EVERY DAY active Not Available Not Available No t Available diclofenac 1 % topical gel APPLY GEL TOPICALLY THREE TIMES A DAY 03/10 completed Not Available Not Available Not Available lamotrigine ER 200 mg tablet,exte nded release 24 hr TAKE ONE TABLET BY MOUTH AT BEDTIME active Not Available Not Available No t Available lamotrigine ER 100 mg tablet,exte nded release 24 hr TAKE ONE TABLET BY MOUTH AT BEDTIME 04/12 completed Not Available Not Available Not Available cetirizine 10 mg capsule Take by oral route. 03/10 completed Not Available Not Available Not Available melatonin 5 mg capsule TAKE TWO CAPSULES BY MOUTH EVERY DAY WITH DINNER MEAL 04/12 completed Not Available Not Available Not Available butalbital- acetaminoph en-caffeine 50 mg-300 mg-40 mg capsule TAKE ONE CAPSULE BY MOUTH EVERY 6 HOURS NEEDED FOR HEADACHE 04/12 completed Not Available Not Available Not Available Lamictal XR 300 mg tablet,exte nded release Take 1 tablet every day by oral route. 04/12 completed Not Available Not Available Not Available norethindro ne 03/10 completed Not Available Not Available Not Available melatonin 10 mg tablet TAKE ONE TABLET BY MOUTH EVERY DAY WITH MEALS active Not Available Not Available No t Available Combivent Respimat 20 mcg-100 mcg/actuati on solution for inhalation INHALE ONE PUFF BY MOUTH FOUR TIMES A DAY NEEDED 04/12 completed Not Available Not Available Not Available Combivent Respimat 03/10 completed Not Available Not Available Not Available Contour Next Test Strips CHECK BLOOD GLUCOSE LEVELS 3 TIMES A DAY AND NEEDED 04/12 completed Not Available Not Available Not Available Trulicity 0.75 mg/0.5 mL subcutaneou s pen injector INJECT .5ML UNDER THE SKIN EVERY WEEK. ROTATE INJECTION SITES 04/12 completed Not Available Not Available Not Available Trulicity 04/12 completed Not Available Not Available Not Available Vraylar 6 mg capsule TAKE ONE CAPSULE BY MOUTH EVERY MORNING active Not Available Not Available No t Available Vraylar 1.5 mg capsule TAKE 1 CAPSULE BY MOUTH EVERY MORNING 03/10 completed Not Available Not Available Not Available Vraylar 4.5 mg capsule TAKE 1 CAPSULE BY MOUTH EVERY MORNING active Not Available Not Available No t Available Trelegy Ellipta 100 mcg-62.5 mcg-25 mcg powder for inhalation INHALE ONE PUFF BY MOUTH EVERY DAY AT THE SAME TIME EACH DAY 2021 active Not Available Not Available Not Avai lable Incassia 0.35 mg tablet TAKE ONE TABLET BY MOUTH EVERY DAY active Not Available Not Available No t Available Emgality Pen 120 mg/mL subcutaneou s pen injector INJECT 1ML 120MG) UNDER THE SKIN EVERY 28 DAYS active Not Available Not Available No t Available Nurtec ODT 75 mg disintegrat ing tablet PLACE ONE TABLET BY MOUTH EVERY OTHER DAY 2021 active Not Available Not Available Not Avai lable Vitals Date Recorded Body height Provider Name an d Address Organization Details Last Updated DateTime 07/06/2021 162.56 cm Dhaval Coburn [facility] 07/06/2021 11:20:09 Date Recorded Body height Body mass index (BMI) Body weight Provider Name and Address Organization Details Last Updated DateTime 07/26/2021 162.56 cm 28.7 kg/m2 14825.93 g [facility] 07/26/2021 12:20:18 Date Recorded Body height Body mass index (BMI) Body weight Provider Name and Address Organization Details Last Updated DateTime 03/10/2022 162.56 cm 28.8 kg/m2 14661.52 g Rosio Whaley [facility] 03/10/2022 13:26:00 Date Recorded Body height Body mass index (BMI) Body weight Provider Name and Address Organization Details Last Updated DateTime 04/12/2022 162.56 cm 29.5 kg/m2 02604.89 g [facility] 04/12/2022 13:46:00 Date Recorded Body height Provider Name an d Address Organization Details Last Updated DateTime 01/17/2023 162.56 cm Shalom Gaona [facility] 01/17/2023 11:59:26 Social History Question Answer Notes LastModified by Organizat ion Details LastModified Time Tobacco Smoking Status Never Smoker Lexii murphy [facility] 02/23/2021 13:07:49 What Is Your Level Of Alcohol Consumption? None [email or web address] Information not available 02/23/2021 What Is Your Level Of Caffeine Consumption? None Information not available 03/10/2022 Do You Or Have You Ever Used E-cigarettes Or Vape? 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 Yes [email or web address] Information not available 02/23/2021 Briefly Explain Your Foot/ankle Condition (injury) Hip Problem, Pain, Instability, Weakness, Stiffness, Spasms, Some Sharp Pains [email or web address] Information not available 02/23/2021 Date Of Injury/Duration Of Injury (weeks, Months, Years) No Injury, Date Of Initial Diagnosis 2017 [email or web address] Information not available 02/23/2021 What Treatments Have You Tried For This Condition? Cortisone Shot, A Little Pt [email or web address] Information not available 02/23/2021 Have Any Other Tests Been Done For This Problem? X-ray [email or web address] Information not available 02/23/2021 Is This Condition/proble m Affecting Your Ability To Exercise Or Perform Activities Of Daily Living? Yes [email or web address] Information not available 02/23/2021 Do You Wear Custom-made Orthotics? No [email or web address] Information not available 02/23/2021 How Old Are They? 4 Years [email or web address] Information not available 02/23/2021 Have You Ever Had Problems With Healing A Wound? Have You Ever Been Told You Are A Slow Healer? No [email or web address] Information not available 02/23/2021 Do You Or Have You Ever Used Smokeless Tobacco? Never Used Smokeless Tobacco [email or web address] Information not available 02/23/2021 How Much Tobacco Do You Smoke? No [email or web address] Information not available 02/23/2021 What Types Of Sporting Activities Do You Participate In? None [email or web address] Information not available 02/23/2021 How Many Years Have You Smoked Tobacco? 0 [email or web address] Information not available 02/23/2021 Sex: Unknown Functional Status Question Answer Note LastModified by Organizat ion Details LastModified Time What is your exercise level? Occasional Information not available 03/10/2022 Mental Status None recorded. Family History Relationship Description Onset Age of this Age Resolved Age Notes LastModified by Organization Details LastModified Time Father No current problems or disability [email or web address] Not available 13:13:31 Mother No current problems or disability [email or web address] Not available 13:13:31 Medical History Condition Response Blood Clots / Phlebitis N HIV or AIDS N Heart Problems N High Blood Pressure N Depression or Anxiety Y Irregular Heartbeat N MRSA Y Emphysema / Chronic Bronchitis N Any Other Significant Medical Issues Y Reaction to General/Local Anesthesia N Hepatitis / Jaundice N Weight Gain / Loss N Kidney / Bladder Infections Y Diabetes Y Bleeding Disorder N Hearing Loss N Angina, Heart Failure or Attack N Night Sweats N Seizures / Epilepsy N Osteoarthritis / Rheumatoid arthritis / Other Y Cancer Y Stroke N Chemical Dependency / Alcoholism N Ulcer / Stomach Bleeding / Indigestion Y Visual Loss or Glaucoma N Psoriasis / Skin Rash Y Thyroid Disorder N Heart Disease N Asthma / Shortness of Breath / 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 Obstetrics History GPAL:G 0 P 0 0 0 0 Past Encounters Encounter ID Performer Location Encounter Start Date Encounter Closed Date Diagnosis/Indication Diagnosis SNOMED-CT Code Diagnosis ICD10 Code [id number] WANG VALENZUELA MD [facility] [address] [email or web address] [address] [place] [phone] 02/23/2021 12:48:39 02/23/2021 13:44:40 Hip pain 44475352 M25.551 Acetabular labrum tear 370751270 M24.151 [id number] ROMY MULLER [facility] [address] [place] [address] 03/16/2021 13:16:51 03/16/2021 14:16:47 Acetabular labrum tear 479515588 M24.151 [id number] ROMY MULLER [facility] [address] [email or web address] [address] [place] [address] 05/18/2021 12:19:43 05/18/2021 13:04:42 Acetabular labrum tear 745455763 M24.151 [id number] WANG VALENZEULA MD [place] [place] [address] 07/06/2021 10:39:57 07/06/2021 21:38:58 Hip pain 73671567 M25.551 [id number] WANG VALENZUELA MD [facility] [address] [place] [id number] 07/26/2021 09:33:05 07/26/2021 15:13:55 Osteoarthritis of right hip joint 8530947842 04388 M16.11 [id number] WANG VALENZUELA MD [facility] [address] [place] [phone] 03/10/2022 12:49:51 03/16/2022 20:28:35 Hip pain 71876659 M25.736 [id number] WANG VALENZUELA MD [facility] [facility] [place] [address] 04/12/2022 13:04:41 04/19/2022 10:57:56 Hip pain 79914272 M25.521 [id number] ROMY COLORADO [facility] [place] [address] 01/17/2023 10:53:10 01/17/2023 12:11:23 Complete tear, hip ligament 216210900 S73.101A Health Concerns Section Related Observation LastModified by Organization Detai ls LastModified Time None Recorded Concern Status LastModified by Organization Details LastModified Time None Recorded Advance Directives Directive None Recorded Payers Encounter Date Sequence Insurance Name Policy Number Policy Brambila Covered Member ID Brambila Member ID Guarantor Name 07/06/2021 1 [facility] [employer] [id number] Pineda Garcia [id number] Meredith Garcia 07/06/2021 2 [place] [employer] Meredith Garcia [id number] Meredith Garcia 07/26/2021 1 [facility] [id number] Pineda Garcia [id number] Meredith Garcia 07/26/2021 2 [place] [facility] Meredith Garcia [id number] Meredith Garcia 03/10/2022 1 [place] [facility] [id number] Pineda Garcia [id number] Meredith Garcia 03/10/2022 2 [place] [facility] Meredith Garcia [id number] Meredith Garcia 04/12/2022 1 [place]: [facility] [id number] Pineda Garcia [id number] Meredith Garcia 04/12/2022 2 [place] [facility] Meredith Garcia [id number] Meredith Garcia 01/17/2023 1 [place]: [facility] [id number] Pineda Garcia [id number] Meredith Garcia 01/17/2023 2 [place] [facility] Meredith Garcia [id number] Meredith Garcia Notes Date Note Type Note Provider Name and Address Organization Details Recorded Time 07/06/2021 text/html CHIEF COMPLAINT: Right hip pain.HISTORY: Meredith returns today for follow up regarding her right hip. She has been doing physical therapy and feeling much stronger, however, still has significant discomfort in her hip. We previously discussed that she did have significant medical comorbidities concerning for potential limitations regarding outpatient surgery. Her last plain radiographs were obtained in February,, and the last MRI was in December,. Her pain has significantly progressed since then. There was concern at that time for mild osteoarthritis and labral tear. The patient presents with a cane. Apparently she is also considering a thyroidectomy soon. WANG VALENZUELA MD [address] [place] [address], [phone], [facility] 07/13/2021 11:11:43 07/26/2021 text/html COVID-19 [facility] NT: This visit was conducted as a real time interactive TeleHealth audiovisual TeleHealth visit conducted via [employer] during the ongoing COVID-19 Formerly Named [facility] Emergency. The patient was identified by name and date of and consented to this TeleHealth visit. The patient was at their home in [place] and I was at my [place] office. This was done over the course of 26 minutes including record review. We are in touch with Meredith today via telehealth. Patient is currently in [place]. This is for follow-up regarding her right hip MRI recently obtained. The overall concern was underlying mild arthritic changes middle-aged female with degenerative labral tear. WANG VALENZUELA MD [address] [place] [address], [phone], [facility] 08/02/2021 11:45:39 03/10/2022 text/html Meredith comes into the office today for followup regarding her hip. She previously seen about 6 to 7 months ago for her right hip. Concern was for underlying osteoarthritic changes and discussion of hip replacement was recommended. She unfortunately sustained a fall on the right side on January 27, sustained an ankle sprain. On report was put in a boot, also was hospitalized in the psychiatric rai at the time, so no crutches were allowed and she started to have more and more bilateral hip pain, right more than left. She is ambulating now with a cane and has a lot of discomfort. Plain radiographs were obtained today. WANG VALENZUELA MD [address] [place] [address], [phone], [facility] 03/18/2022 07:46:12 04/12/2022 text/html Meredith return s today for followup regarding her hips. She had MRI in the interim. Her pain mostly seems to be posterior SI joint. She reports focal point tenderness. She denies any neurologic deficits. She presents with a cane. Previously, we had concerns for significant osteoarthritic changes being present already. WANG VALENZUELA MD [address] [place] [address], [phone], [facility] 04/27/2022 15:11:21 01/17/2023 text/html Meredith return s today for followup right hip. She was last seen in our office about 10 months ago. Since then, she has been doing physical therapy. So in the interim, she has been doing physical therapy, but is running out of visit and therefore presents for re-evaluation. Overall, she has been significant improved physical therapy previous concern was for labral tear. She has better strength and range of motion. Fortunately is also currently dealing with recurrent foot injury on the right, possibly undergoing revision surgery and is currently in a boot. She also has been followed by Dr. Quintero, had undergone some SI joint injections seem to help her significantly as well. ROMY COLORADO [address] [place] [address], [place], [phone], [facility] 01/18/2023 22:43:28 OBGyn Episode No OBEpisode recorded.
--- OUTSIDE RECORDS SUMMARY | 2024-04-22 20:43 | XMS_ITS | Data Portability ---
Author Organization [place] - [facility] Address [address] [place] [id number] Assessment Encounter Date Assessment Date Assessment LastModified by Organization Details LastModified Time 02/03/2019 02/03/2019 Overview/History : 43 yo female with PMH of asthma, bipolar depression, Familial Mediterranean fever; primary immunodeficiency ; migraineswho presents with complain of mild 3/10 right flank pain X2wk. Patient reports that she had a CT done last week and has a follow up with her PCP today. She was advised to call by the PCP office. Patient does not have official CT scan results but states that it was positive for non-obstructive kidney stoned present in her right kidney and kidney cyst. CT results are not available on PVIX for this provider to confirm. Patient denied any fever, chills, nausea, vomiting, or urinary symptoms. She expressed concerns for possible UTI as she reports prior history of urosepsis. Exam: well appearing, no acute distress, non-toxic appearance; alert and oriented X3; ambulates independently without difficulty Heart sounds are regular rate and rhythm; no audible murmurs, rubs, or gallops No signs of respiratory distress. Lungs are clear to auscultation in all fileds abdomen is soft, non tender, non distended. Bowel sounds are normoactive and present in all quadrants; CVA discomfort on the right Lower extremities without edema, erythema or cyanosis DDx considered, but not limited to: UTI - possible; however, no urinary symptoms reported pyonephritis - unlikely; no fever, non toxic, pain is mild nephrophthisis - possible based on reported CT results; follow p with PCP today Work up/Results: Urine dipstick - Leuk +2; no other findings Chem 8 - WNL CBC - pending Urine culture - pending Plan/Discussion: - patient has a follow up with her PCP to review and address abdominal CT results; this provider does not have access to the CT results and is unable to address abdominal pain; pain could be related to the kidney stones patient reported - Urine dipstick is positive only for leukocytes +2; will hold abx until urine cx results. - follow up with PCP as scheduled today - advised when to seek immediate medical attention/911/ED - patient expressed understanding and agreed to tx plan In order to obtain further information and compare any laboratory results/values, I have accessed patient records on the [employer]. This information was pertinent in my medical decision making today. Time On Scene with Patient: 00:44:09 [email or web address] Not available 02/05/2019 01:11:18 Plan of Treatment Reminders Order Date Submit Date Provider Last Modified By Organization Details Last Modified Time Details Appointments None recorded. Lab culture, urine - [facility] 2018 019 [employer] [facility], [address] [place], [address], 9 10:09:39 CBC w/ auto diff 2018 019 [employer] [facility], [address] [place], [address], 9 01:55:55 urinalysis, dipstick 2018 [facility] [address] [facility], [address] [place], [address], 9 13:13:26 BMP + ionized calcium, serum or plasma 2018 019 [facility] - [facility], [address] [place], [address], 9 13:13:26 Referral None recorded. Procedures None recorded. Surgeries None recorded. Imaging None recorded. Medication Orders None recorded. Patient TargetsNo targets recorded. Patient Instructions Encounter Date Encounter Id Patient Instructions Last Modified By Organization Details Last Modified Time 02/03/2019 [id number] YOU WERE SEEN FO R FLANK PAIN WE SUSPECT YOUR PAIN IS DUE TO KIDNEY STONE. WE ARE ALSO TESTING YOUR URINE FOR POSSIBLE INFECTION. YOUR URINALYSIS WAS POSITIVE FOR LEUKOCYTES; ADDITIONAL SAMPLE WAS SEND TO THE LAB FOR CULTURE. WE WILL NOTIFY YOU IF RESULTS ARE ABNORMAL YOUR BLOOD ELECTROLYTES AND KIDNEY FUNCTION WERE WITHIN NORMAL LIMITS FOLLOW WITH YOUR PCP SCHEDULED TODAY FOR FURTHER MANAGEMENT [facility]. We cannot always find the exact cause of your symptoms during your initial visit. Please follow up with your primary care provider or specialist {{within 12-24 hours within 24-48 hours within 2-3 days as needed*}} to be rechecked or seek medical attention if your symptoms do not go away or get worse. If you develop any new or worsening symptoms and need after hours care, please go to nearest ER and/or call 911. If you have additional concerns or develop a change in your condition between 8am-10pm, please call [employer] at [phone] to help navigate your care. Renal Colic (Kidney Stone) Discharge Instructions We suspect the cause of your pain is a kidney stone. Your provider may have recommended you obtain a CT scan to confirm the diagnosis, see the size and location of the stone, and rule out potentially other life-threatening causes. KIDNEY STONE OVERVIEW ? Kidney stones are very common affecting 1/11 people. They are caused by high levels of things like calcium, oxalate, cystine, or uric acid in the urine which can cause crystals, which can eventually grow to form a kidney stone. These stones move out of your body through your urinary tract. They cause pain when they becomes stuck and blocks the flow of urine. Stones less than 5mm are likely to pass on their own. Larger stones often require intervention. TREATMENT ? If you are able to eat and drink and your pain is tolerable, it is reasonable to try to remain home while your stone passes. Your provider may have recommended the following: Stay well hydrated. Use a medicine (such as Zofran) as needed for nausea. Use Ibuprofen 400 mg three times a day for pain. Do not take if you have a known sensitivity, renal impairment, history of ulcer or GI bleed, are on Coumadin or other blood thinner. You may require a stronger narcotic pain medication if you have severe pain. If you were prescribed a narcotic, do not drink or drive. Do not take extra Tylenol/Acetaminop hen if you are taking [place]/Vicodin/Perc ocet. Depending on the location of your stone, you provider may recommend Flomax/Tamsulosin. This medication can cause you to urinate frequently and/or may make you somewhat lightheaded. Stand slowly to avoid dizziness/fainting and stay near a toilet. When to go to the Emergency Department If you develop intolerable or persistent pain You are unable to hold down food, fluid, medication You develop a fever You are unable to urinate or have severe pain with urination You develop new symptoms such as chest pain, numbness, tingling, weakness, headache, persistent abdominal pain or tenderness Follow-up with urology: If you stone is bigger than 5mm or if your pain persists beyond 1-2 weeks, your stone may be unlikely to pass on it? s own. You may require intervention from a specialists. Follow-up with the urologist as instructed by your provider. If you develop any new or worsening symptoms and need after hours care, please go to nearest ER and/or call 911. If you have additional concerns or develop a change in your condition between 8am-10pm, please call [facility] at [phone] to help navigate your care. [email or web address] Not available 02/03/2019 13:14:24 Reason for Referral None Reported. Results Created Date Observation Date Name Description Value Unit Range Abnormal Flag Note LastModifiedBy Organization Detail LastModifiedTime 02/03/2019 BMP + ioniz ed calci um, serum or plasm a Na 143 mmol/ L 138-14 6 Not Available [facility] - Home [address] [place], [address], 02/03/2019 12:56:51 02/03/2019 BMP + ioniz ed calci um, serum or plasm a K 3.7 mmol/ L 3.5-4. 9 Not Available Spr - Home [address] [place], [address], 02/03/2019 12:56:51 02/03/2019 BMP + ioniz ed calci um, serum or plasm a cL 108 mmol/ L 98-109 Not Available Spr - Home [address] [place], [address], 02/03/2019 12:56:51 02/03/2019 BMP + ioniz ed calci um, serum or plasm a ica 1.30 mmol/ L 1.12-1 .32 Not Available Spr - Home [address] [place], [address], 02/03/2019 12:56:51 02/03/2019 BMP + ioniz ed calci um, serum or plasm a TCO2 22 mmol/ L 24-29 Not Available Spr - Home [address] [place], [address], 02/03/2019 12:56:51 02/03/2019 BMP + ioniz ed calci um, serum or plasm a glu 99 mg/dL 70-105 Not Available Spr - Home [address] [place], [address], 02/03/2019 12:56:51 02/03/2019 BMP + ioniz ed calci um, serum or plasm a BUN 18 mg/dL 8-26 Not Available Spr - Home [address] [place], [address], 02/03/2019 12:56:51 02/03/2019 BMP + ioniz ed calci um, serum or plasm a crea 0.9 mg/dL .6-1.3 Not Available Spr - Home [address] [place], [address], 02/03/2019 12:56:51 02/03/2019 BMP + ioniz ed calci um, serum or plasm a HCT 38 %_pcv 38-51 Not Available Spr - Home [address] [place], [address], 02/03/2019 12:56:51 02/03/2019 BMP + ioniz ed calci um, serum or plasm a Hb 12.9 g/dL 12-17 Not Available Spr - Home [address] [place], [address], 02/03/2019 12:56:51 02/03/2019 BMP + ioniz ed calci um, serum or plasm a angap 17 mmol/ L 10-20 Not Available Spr - Home [address] [place], [address], 02/03/2019 12:56:51 02/03/2019 urina lysis , dipst ick Appearance clear Not Available Spr - [facility] [address] [place], [address], 02/03/2019 12:44:42 02/03/2019 urina lysis , dipst ick Color light yellow Not Available Spr - Home [address] [place], [address], 02/03/2019 12:44:42 02/03/2019 urina lysis , dipst ick Glucose negati ve Not Available Spr - Home [address] [place], [address], 02/03/2019 12:44:42 02/03/2019 urina lysis , dipst ick Bilirubin negati ve Not Available Spr - Home [address] [place], [address], 02/03/2019 12:44:42 02/03/2019 urina lysis , dipst ick Ketones NEG Not Available Spr - Home [address] [place], [address], 02/03/2019 12:44:42 02/03/2019 urina lysis , dipst ick Sp. [place] 1.010 Not Available Spr - Home [address] [place], [address], 02/03/2019 12:44:42 02/03/2019 urina lysis , dipst ick Blood NEG Not Available Spr - Home [address] [place], [address], 02/03/2019 12:44:42 02/03/2019 urina lysis , dipst ick pH 6.0 Not Available Spr - Home [address] [place], [address], 02/03/2019 12:44:42 02/03/2019 urina lysis , dipst ick Protein negati ve Not Available Spr - Home [address] [place], [address], 02/03/2019 12:44:42 02/03/2019 urina lysis , dipst ick Urobilirubin negati ve Not Available Spr - Home [address] [place], [address], 02/03/2019 12:44:42 02/03/2019 urina lysis , dipst ick Nitrites NEG Not Available Spr - [facility] [address] [place], [address], 02/03/2019 12:44:42 02/03/2019 urina lysis , dipst ick Leukocytes ++ Not Available Spr - H ome [address] [place], [address], 02/03/2019 12:44:42 02/04/2002/04/2019 CBC w/ auto diff WBC 7.7 K/mm3 (4.0-1 1.0) Not Available [facility] [address] [place], [address], 02/04/2019 01:55:54 02/04/2002/04/2019 CBC w/ auto diff RBC 5.29 M/mm3 (4.20- 5.40) Not Available [facility] [address] [place], [address], 02/04/2019 01:55:54 02/04/2002/04/2019 CBC w/ auto diff HGB 11.0 gm/dL (11.7- 15.5) low Not Available [facility] [address] [place], [address], 02/04/2019 01:55:54 02/04/2002/04/2019 CBC w/ auto diff HCT 40.6 % (35.7- 45.8) Not Available [facility] [address] [place], [address], 02/04/2019 01:55:54 02/04/2002/04/2019 CBC w/ auto diff MCV 76.7 fL (80.0- 100.0) low Not Available [facility] [address] [place], [address], 02/04/2019 01:55:54 02/04/2002/04/2019 CBC w/ auto diff MCH 20.8 pg (27.0- 34.0) low Not Available [facility] [address] [place], [address], 02/04/2019 01:55:54 02/04/2002/04/2019 CBC w/ auto diff MCHC 27.1 g/dL (33.0- 37.0) low Not Available [facility] [address] [place], [address], 02/04/2019 01:55:54 02/04/2002/04/2019 CBC w/ auto diff plt 306 K/mm3 (150-4 60) Not Available [facility] [address] [place], [address], 02/04/2019 01:55:54 02/04/2002/04/2019 CBC w/ auto diff RDW-SD 51.2 fL (<47.0 ) high Not Available [facility] [address] [place], [address], 02/04/2019 01:55:54 02/04/2002/04/2019 CBC w/ auto diff MPV 12.1 fL (9.4-1 2.4) Not Available [facility] [address] [place], [address], 02/04/2019 01:55:54 02/04/2002/04/2019 CBC w/ auto diff automated NRBC 0.0 #/100 _WBC' s Not Available [facility] [address] [place], [address], 02/04/2019 01:55:54 02/04/2002/04/2019 CBC w/ auto diff abs. NRBC 0.0 K/mm3 Not Available [facility] [address] [place], [address], 02/04/2019 01:55:54 02/04/2002/04/2019 CBC w/ auto diff neut # 4.4 K/mm3 (1.3-7 .0) Not Available [facility] [address] [place], [address], 02/04/2019 01:55:54 02/04/2002/04/2019 CBC w/ auto diff lymph # 2.1 K/mm3 (0.8-3 .1) Not Available [facility] [address] [place], [address], 02/04/2019 01:55:54 02/04/2002/04/2019 CBC w/ auto diff mono# 0.8 K/mm3 (0.4-0 .9) Not Available [facility] [address] [place], [address], 02/04/2019 01:55:54 02/04/2002/04/2019 CBC w/ auto diff eo # 0.3 K/mm3 (0.0-0 .4) Not Available [facility] [address] [place], [address], 02/04/2019 01:55:54 02/04/2002/04/2019 CBC w/ auto diff baso # 0.1 K/mm3 (0.0-0 .1) Not Available [facility] [address] [place], [address], 02/04/2019 01:55:54 02/04/2002/04/2019 CBC w/ auto diff abs. imm gran 0.0 K/mm3 Not Available [facility] [address] [place], [address], 02/04/2019 01:55:54 02/04/2002/04/2019 CBC w/ auto diff neut 56.9 % (44-76 ) Not Available [facility] [address] [place], [address], 02/04/2019 01:55:54 02/04/2002/04/2019 CBC w/ auto diff lymph 27.4 % (15-43 ) Not Available [facility] [address] [place], [address], 02/04/2019 01:55:54 02/04/2002/04/2019 CBC w/ auto diff monocyte 9.7 % (4.5-1 0.5) Not Available [facility] [address] [place], [address], 02/04/2019 01:55:54 02/04/2002/04/2019 CBC w/ auto diff eo 4.1 % (0-6) Not Available [facility] [address] [place], [address], 02/04/2019 01:55:54 02/04/2002/04/2019 CBC w/ auto diff baso 1.6 % (0-2) Not Available [facility] [address] [place], [address], 02/04/2019 01:55:54 02/04/2002/04/2019 CBC w/ auto diff imm gran 0.3 % Not Available [facility] [address] [place], [address], 02/04/2019 01:55:54 02/04/2002/04/2019 cultu re, urine specimen description URINE Not Available [facility] [address] [place], [address], 02/05/2019 10:09:39 02/04/2002/04/2019 cultu re, urine special requests NONE Not Available [facility] [address] [place], [address], 02/05/2019 10:09:39 02/04/20 19 02/05/2019 cultu re, urine culture Mixed bacter ial merna, indica tive of urogen ital contam inatio n. Not Available [facility] [address] [place], [address], 02/05/2019 10:09:39 02/04/20 19 02/05/2019 cultu re, urine report status FINAL 2018 Not Available [facility] [address] [place], [address], 02/05/2019 10:09:39 Result Notes None recorded. Procedures Surgical History Date Name Laterality Status Provider Name and Address Organization Details Recorded Time 02/04/20 19 Venipuncture - completed ROMY SHOOK [address], [place], [address], [place] [facility] 02/05/2019 23:27:28 Imaging Results None recorded. Procedure Notes None recorded. Medical Equipment None Reported. Allergies Allergen ID Allergen Name Allergen Category Reaction Reaction Severity Criticality Documentation Date Start Date Code Code System Note Provider Name and Address Organization Details Recorded Time 85783 Demerol medicatio n Not available Not available Not available 02/03/2019 59147 1 RxNorm ROMY SHOOK [address] [place], [address], [place] [facility] 9 12:37:19 49140 morphine medicatio n Not available Not available Not available 02/03/2019 7052 RxNorm ROMY SHOOK [address] [place], [address], [place] [facility] 9 12:37:29 67880 Reglan medicatio n Not available Not available Not available 02/03/2019 9230 RxNorm ROMY SHOOK [address] [place], [address], [place] [facility] 9 12:37:40 11180 Flonase medicatio n Not available Not available Not available 02/03/2019 28043 RxNorm ROMY SHOOK [address] [place], [address], [place] [facility] 9 12:37:48 Medications Name Sig Start Date Stop Date Status Note LastModified by Organization Details LastModified Time cyclobenzaprine 10 mg tablet active Not Available Not Available Not Available fluconazole 100 mg tablet 02/03 completed Not Available Not Available Not Available atorvastatin 40 mg tablet active Not Available Not Available No t Available silver sulfadiazine 1 % topical cream active Not Available Not Availabl e Not Available BD Alcohol Swabs active Not Available Not Available Not Available gabapentin 600 mg tablet active Not Available Not Available No t Available fluconazole 150 mg tablet 02/03 completed Not Available Not Available Not Available sumatriptan 100 mg tablet active Not Available Not Available No t Available fluconazole 200 mg tablet active Not Available Not Available No t Available propranolol ER 60 mg capsule,24 hr,extended release active Not Available Not Available Not Available terconazole 0.8 % vaginal cream active Not Available Not Availa ble Not Available lithium carbonate ER 300 mg tablet,extended release active Not Available Not Available Not Available hydroxyzine HCl 50 mg tablet active Not Available Not Available Not Available triamcinolone acetonide 0.1 % topical cream active Not Available Not Availabl e Not Available lithium carbonate ER 450 mg tablet,extended release active Not Available Not Available Not Available amoxicillin 875 mg tablet 02/03 completed Not Available Not Available Not Available hydromorphone 2 mg tablet active Not Available Not Available No t Available clindamycin 1 % topical gel 02/03 completed Not Available Not Available Not Available cephalexin 500 mg capsule 02/03 completed Not Available Not Available Not Available glucose 4 gram chewable tablet active Not Available Not Availa ble Not Available benztropine 1 mg tablet active Not Available Not Available Not Available omeprazole 20 mg capsule,delayed release active Not Available Not Available Not Available montelukast 10 mg tablet active Not Available Not Available No t Available epinephrine 0.3 mg/0.3 mL injection, auto-injector active Not Available Not Availabl e Not Available metformin ER 500 mg tablet,extended release 24 hr active Not Available Not Availabl e Not Available lisinopril 2.5 mg tablet active Not Available Not Available No t Available Microlet Lancet active Not Available N ot Available Not Available Jade 0.35 mg tablet active Not Available Not Available Not Available aripiprazole 15 mg tablet active Not Available Not Available No t Available Novolog FlexPen U-100 Insulin aspart 100 unit/mL (3 mL) subcutaneous active Not Available Not Available Not Available Xolair 150 mg subcutaneous solution active Not Available Not Available Not Available hydrocortisone butyrate-emollie nt 0.1 % topical cream active Not Available Not Available Not Available topiramate 50 mg tablet active Not Available Not Available Not Available lamotrigine ER 200 mg tablet,extended release 24 hr active Not Available Not Availabl e Not Available Colcrys 0.6 mg tablet active Not Available Not Available Not Available Unifine Pentips Plus 31 gauge x 3/16 needle active Not Available Not Available Not Available Combivent Respimat 20 mcg-100 mcg/actuation solution for inhalation active Not Available Not Available N ot Available Contour Next Test Strips active Not Available Not Available Not Available Vraylar 1.5 mg capsule active Not Available Not Available Not Available Vraylar 3 mg capsule active Not Available Not Available Not Available Basaglar KwikPen U-100 Insulin 100 unit/mL (3 mL) subcutaneous active Not Available Not Avail able Not Available Contour Next One Meter active Not Available Not Available Not Available TRUEplus Pen Needle 32 gauge x 5/32 active Not Available Not Available Not Available Aimovig Autoinjector 70 mg/mL subcutaneous auto-injector active Not Available Not Availabl e Not Available Vitals Date Recorded Body temperature Respiratory rate Oxygen saturation Oxygen saturation in Arterial blood by Pulse oximetry Heart rate Systolic blood pressure Diastolic blood pressure Provider Name and Address Organization Details Last Updated DateTime 9 98.9 [degF] 18 /min 98 % 98 % 80 /min 108 mm[Hg] 76 mm[Hg] Not Available [facility] 9 12:43:08 Social History Question Answer Notes LastModified by Organizat ion Details LastModified Time Tobacco Smoking Status Never Smoker ROMY SHOOK [address] [place] [address], [address], [place] - [facility] 02/03/2019 12:40:20 How Many Days In The Past Year Have You Had A Heavy Drinking Consumption (4+ Female, 5+ Male)? 0 [email or web address] Information not available 02/03/2019 Marital Status [email or web address] Informatio n not available 02/03/2019 What Was The Date Of Your Most Recent Tobacco Screening? 02/03/2019 [id number] Information not available 02/04/2019 Sex: Unknown Functional Status None recorded. Mental Status None recorded. Family History Relationship Description Onset Age of this Age Resolved Age Notes LastModified by Organization Details LastModified Time Father Diabetes mellitus [email or web address] Not available 2018 12:40:53 Medical History Condition Response Diabetes Y Coronary Artery Disease N High Cholesterol Y Pulmonary Embolism N Cancer N Hypertension N Stroke Y Asthma Y COPD N Depression Y Kidney Disease N Gynecological HistoryNo gynecological history recorded. Obstetrics History GPAL:G 0 P 0 0 0 0 Past Encounters Encounter ID Performer Location Encounter Start Date Encounter Closed Date Diagnosis/Indication Diagnosis SNOMED-CT Code Diagnosis ICD10 Code [id number] ROMY SHOOK [facility] [address] [place] [address] 02/03/2019 12:35:06 02/05/2019 11:44:06 Right flank pain 909672028 R10.9 Acute urin dunia tract infection 463930794 N39.0 History of calculus of kidney 209565110 Z87.442 Primary im mune deficiency disorder 30708198 D84.9 Health Concerns Section Related Observation LastModified by Organization Detai ls LastModified Time None Recorded Concern Status LastModified by Organization Details LastModified Time None Recorded Advance Directives Directive None Recorded Payers Encounter Date Sequence Insurance Name Policy Number Policy Brambila Covered Member ID Brambila Member ID Guarantor Name 02/03/2019 1 [facility] [id number] Meredith Garcia [id number] Meredith Garcia 02/03/2019 2 [place] [facility] [employer] Meredith Garcia [id number] Meredith Garcia Notes Date Note Type Note Provider Name and Address Organization Details Recorded Time 02/03/2019 text/html Mrs. Garcia is a 43 yo female new to and this provider who presents with complain of mild 3/10 right flank pain X2wk. Patient reports that she had a CT done last week and has a follow up with her PCP today. She was advised to call by the PCP office. Patient does not have official CT scan results but states that it was positive for non-obstructive kidney stoned present in her right kidney and kidney cyst. CT results are not available on PVIX for this provider to confirm. Patient denied any fever, chills, nausea, vomiting, or urinary symptoms. She expressed concerns for possible UTI as she reports prior history of urosepsis.Comorbidi ties: asthma, bipolar depression, Familial Mediterranean fever; primary immunodeficiency; migraines ROMY SHOOK [address] [place], [address], [place] - [facility] 02/05/2019 23:27:34 OBGyn Episode No OBEpisode recorded.
== END 2024-04-21 12:46 | disposition home or self-care (01) | DRG 753 ==
LOC: HO.ED 14:48 → HO.PM5 18:10
PROVIDERS: Clinical Nurse Specialist Psychiatric/Mental Health, Adult; Physician Assistant; Student in an Organized Health Care Education/Training Program; Admitting Provider Psychiatry & Neurology Psychiatry; Emergency Provider Emergency Medicine; PCP Nurse Practitioner Family; Visit Provider Psychiatry & Neurology Psychiatry
DX: F31.9 Bipolar disorder, unspecified (principal); D80.3 Selective deficiency of immunoglobulin G [IgG] subclasses; E11.22 Type 2 diabetes mellitus with diabetic chronic kidney disease; N25.1 Nephrogenic diabetes insipidus; F43.10 Post-traumatic stress disorder, unspecified; M04.1 Periodic fever syndromes; G24.01 Drug induced subacute dyskinesia; N18.9 Chronic kidney disease, unspecified; K75.81 Nonalcoholic steatohepatitis (NASH); T43.595S Adverse effect of other antipsychotics and neuroleptics, sequela; Z79.85 Long-term (current) use of injectable non-insulin antidiabetic drugs; Z79.890 Hormone replacement therapy; Z79.899 Other long term (current) drug therapy
CPT/HCPCS: 36415; 80048; 80053; 80061; 80076; 80178; 80307; 81001; 82947; 83036; 83735; 84484; 85025; 85027; 87086; 93005; 99284

== ENCOUNTER 2024-04-16 18:04 | Outpatient (BNV) | payer BC, MEDICARE, MEDICAID, SELFPAY | END 2024-04-18 08:03 | PROVIDERS: Admitting Provider Psychiatry & Neurology Psychiatry; Emergency Provider Emergency Medicine; PCP Nurse Practitioner Family; Visit Provider Internal Medicine Cardiovascular Disease | DX: R07.9 Chest pain, unspecified (principal) | CPT/HCPCS: 93010 ==

== ENCOUNTER → 2024-04-16 18:04 | Outpatient (BNV) | payer BC, MEDICARE, MEDICAID, SELFPAY | PROVIDERS: Admitting Provider Psychiatry & Neurology Psychiatry; Emergency Provider Emergency Medicine; PCP Nurse Practitioner Family; Visit Provider Psychiatry & Neurology Psychiatry | DX: F31.63 Bipolar disorder, current episode mixed, severe, without psychotic features (principal); F43.11 Post-traumatic stress disorder, acute | CPT/HCPCS: 90792; 99231; 99232; 99499 ==

== ENCOUNTER 2024-05-19 14:00 | Outpatient (AMB) | payer BC, MEDICARE, MEDICAID, SELFPAY ==
--- NOTE | 2024-05-19 14:02 | HO.NEPHOV ---
Intake Visit Reasons: Pt req sooner appt Grain Combiner Required: No Accompanied by: Self / Same As Patient Allergies adhesive [ADHESIVE] Allergy (Intermediate, Verified 05/19/24 14:02) BLISTER fluticasone [From FLONASE] Allergy (Unknown, Verified 05/19/24 14:02) unknown meperidine [Demerol] Allergy (Unknown, Verified 05/19/24 14:02) vomit metoclopramide [From REGLAN] Allergy (Unknown, Verified 05/19/24 14:02) DIPLOPIA transparent dressing Allergy (Unknown, Verified 05/19/24 14:02) rash morphine [MORPHINE] Adverse Reaction (Severe, Verified 05/19/24 14:02) NAUSEA & VOMITING TEGADERM BANDAGE Allergy (Intermediate, Uncoded 04/16/24 13:55) RASH morphine Allergy (Unknown, Uncoded 04/16/24 13:55) vomit tape Allergy (Unknown, Uncoded 04/16/24 13:55) rash From DEMEROL Adverse Reaction (Severe, Uncoded 04/16/24 13:55) NAUSEA & VOMITING HPI Comments Details: Meredith is a pleasant 48-year-old woman with a history of immunodeficiency and currently disease IV immunoglobulins. She has a history of bipolar disorder and has been on lithium for several years. 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 Serum creatinine has been stable around 1.0. Pembroke was discontinued. She is currently on Vraylar. She has developed symptoms of TD. The plan is to switch her back to lithium as per her psychiatrist. She underwent a partial thyroidectomy on 01/06/2022. History of papillary thyroid Ca She disease IV hemoglobin every 3 weeks for immunodeficiency. History of medullary calcinosis of the kidneys. She has been on topiramate for several years. 05/28/23 Recently admitted with Campylobacter Jejuni Had diarrhea Ca and K was low 24 hr urine showed a volume of 4600 ml !! 07/23/23 Amiloride was increased in May UO has decreased She has cut back on soda Now she is back on Pembroke since May 2023 08/20/23 Recently she had 2 sinus infections treated with antibiotics without much improvement. She has an appointment with ENT in end of September. She has had some nausea and vomiting. P.o. intake has been suboptimal. Creatinine was 1.06 and BUN bumped up to 27 and she he is here for further evaluation. Baseline BUN is around 18 mg/dL. 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 Blood sugar spiked and ended up in ER. 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 Surgical History History of endoscopy (~11/2023) History of ankle surgery History of umbilical hernia repair History of dilation and curettage History of arthroscopy History of oral surgery History of delivery Social History Household Members: Spouse and Children Household Members Other:: , Son Housing: House Do you presently have visiting nurse or other home services: No Alcohol intake: never Patient Tobacco Use Status: Never used Tobacco e-Cigarette/Vaping Use: Never Used service: No Sexual orientation: Straight/Heterosexual Telehealth Telehealth Telehealth Platform: Telephone Location of provider rendering services: practice address Patient Identification confirmed using: Name, : Yes Telehealth method: voice only Minutes spent on Phone/Video with Pt.: 10 Results Reviewed Nephrology Results: Hgb 11.1 g/dl (12.0-16.0) L 04/18/24 WBC 16.7 X10*3/uL (4.8-10.8) H 04/18/24 Plt Count 380 X10*3/uL (160-400) 04/18/24 Sodium 140 mmol/L (135-145) 04/20/24 Potassium 3.9 mmol/L (3.3-5.1) 04/20/24 Chloride 105 mmol/L (96-108) 04/20/24 Carbon Dioxide 24 mmol/L (22-29) 04/20/24 BUN 27 mg/dL (9-16) H 04/20/24 Creatinine 0.88 mg/dL (0.5-1.4) 04/20/24 Calcium 9.6 mg/dL (8.4-10.2) 04/20/24 Urine Protein Negative mg/dL (Neg-Trace) 04/16/24 Renal US 01/11/24 Assessment & Plan Assessment & Plan (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 The polyuria is under control while she is on amiloride. Renal function has been stable as well. She is clearly at risk for ongoing in renal injury from lithium however it seems like this might be the only option to treat her bipolar illness. 24 hour urine collection showed a volume of 4600 and urine osmolarity of 220 risks and benefits of going back on lithium was explained and she is back on Pembroke since May 2023 Watch renal function and UO while on Pembroke She should continue with the low-sodium diet as well. Keep AMiloride at 10 mg QD Stay on low salt diet Given the h/o renal stones , would not add Calcium tabs Shall follow levels The bump in BUN is most likely due to poor p.o. intake. Hemoglobin has increased from 13.3 up to 14.1 most likely due to hemoconcentration I have encouraged her to increase fluid intake. Serum creatinine stable at 1.06. Clinically volume status appears stable. She will require a 24 urine collection to quantify urine output and based on this we can adjust the p.o. fluid intake. 12/11/23 SACHI due to hypoperfusion in a setting of hyperglycemia REcheck labs today Increase PO fluids Optimize blood sugar and follow up with PCP 01/02/24 Renal function is stable Keep on weekly IV fluids HAs polyuria - she is on Pembroke 450 mg BID Currently on Amiloride Stay on low Sodium diet IF polyuria presists, may need to lower or stop Pembroke 1//25 Advised to go to ER due to dizziness Needs IVF Q weekly next dose on 06/04/24 Coding Level of Care Code Tele Est Pt Level 2 (10083) Diagnoses Nephrogenic diabetes insipidus N25.1 CKD (chronic kidney disease) N18.9
--- OUTSIDE RECORDS SUMMARY | 2024-05-19 16:21 | XMS_ITS | Continuity of Care Document ---
Author Organization [facility] Address [address] [place] [address]- Support Name Relationship Address Phone HEMANT LEE Personal Relationship Unknown U navailable LEE, EMBER Personal Relationship Unknown Unavai lable ELE, EMBER Personal Relationship Unknown Unavai lable SKUSE, [...] Unknown U navailable Care Team Providers Care Rf Technician Name Role Phone Miles OTOOLE, Bernie Hardy Primary Care Physician [phone] [place] [facility] - 04/23/24 [facility] Diabetes [address] [place] [address] Encounter Type: Triage Allergies, Adverse Reactions, Alerts [...] (oldterm) 8 03/14/09 Given 1Result Comment: [09/19/2017] [id number] 2Result Comment: [02/13/2018] [id number] 3Result Comment: [02/08/2017] [facility] [id number] 4Result Comment: [01/24/2013] ORDERRED BY [...] 20mg, # 90 tablet, 2 Refills, Maintenance, 4/30/24 10:04:00 AM EDT, Tablet, [facility] [...] Maintenance, 10/15/23 8:40:00 AM EDT, [facility], Partial fill upon patient request [...] 3:40:00 PM EDT, Route to Pharmacy Electronically, [facility], 163, cm, 11/22/20 12:47:00 EDT, [...] Maintenance, 03/24/24 3:28:00 PM EST, [facility], 163, cm, 03/07/24 8:07:00 EDT, Height Start Date: 03/24/24 Status: Ordered Quantity: 120.0 Unit: tablet Repeat number: 1 montelukast 10 mg oral tablet 1, tablet, By Mouth, Daily in PM, # 90 tablet, Refills 1, Tot. Refills 1, Maintenance, 04/08/24 7:45:00 AM EST, Route to Pharmacy Electronically, [facility], 163, cm, 03/07/24 8:07:00 [...] 6 Refills, Maintenance, 10/26/22 11:06:00 AM EDT, [facility], Partial fill upon patient [...] Maintenance, 08/28/23 1:41:00 PM EDT, [facility], 163, cm, 08/22/23 8:24:00 [...] Team Personnel Name: Neto Cunningham MD Position: [facility] Renal MD Member Role: Lifetime Consulting Physician Address: [address] [place] [address] [address] [place] [address]- [place] Telecom: Name: Lore Clinton RN Position: [facility] AMB Nurse Member Role: Primary Care Nurse Name: Bernie Aquino NP Position: [facility] PCO Associate Professional Member Role: PCP Address: [address] [place] [address]- [place] Telecom: Name: Gregg Hardy MD Position: [facility] Pulmonary MD Member Role: Lifetime Consulting Physician Address: [address] [place] [address]- [place] Telecom: Care Team Related Persons Name: [...]
--- OUTSIDE RECORDS SUMMARY | 2024-05-19 16:21 | XMS_ITS | Continuity of Care Document ---
Author Organization [facility] David lt Address [address] [place] [address]- Support Name Relationship Address Phone HEMANT LEE [...] Unknown U navailable Care Team Providers Care Clinical Research Scientist Name Role Phone Bernie Aquino NP Primary Care Physician [phone] [place] [facility] [place] 03/24/24 - 04/23/24 [facility] Adult [address] [place] [address]- Encounter Type: Triage Allergies, Adverse Reactions, Alerts [...] (oldterm) 8 03/14/09 Given 1Result Comment: [09/19/2017] [id number] 2Result Comment: [02/13/2018] [id number] 3Result Comment: [02/08/2017] [facility] [id number] 4Result Comment: [01/24/2013] ORDERRED BY [...] Maintenance, 10/15/23 8:40:00 AM EDT, [facility], [...] 3:40:00 PM EDT, Route to Pharmacy Electronically, [facility], 163, cm, 11/22/20 12:47:00 EDT, [...] Maintenance, 03/24/24 3:28:00 PM EST, [facility], 163, cm, 03/07/24 8:07:00 EDT, Height Start Date: 03/24/24 Status: Ordered Quantity: 120.0 Unit: tablet Repeat number: 1 montelukast 10 mg oral tablet 1, tablet, By Mouth, Daily in PM, # 90 tablet, Refills 1, Tot. Refills 1, Maintenance, 04/08/24 7:45:00 AM EST, Route to Pharmacy Electronically, [facility], 163, cm, 03/07/24 8:07:00 [...] 6 Refills, Maintenance, 10/26/22 11:06:00 AM EDT, [facility], Partial fill upon [...] 0 Refills, Maintenance, 08/28/23 1:41:00 PM EDT, [facility], 163, cm, 08/22/23 [...] Personnel Name: Marisa CHAIDEZ, Neto Osorio Position: [facility] Renal MD Member Role: Lifetime Consulting Physician Address: [address] [place] [address] [address] [facility] [address]- [place] Telecom: Name: Lore Clinton RN Position: [facility] AMB Nurse Member Role: Primary Care Nurse Name: Miles OTOOLE, Bernie Hardy Position: [facility] PCO Associate Professional Member Role: PCP Address: [address] [place] [address]- [place] Telecom: Name: Gregg Hardy MD Position: [facility] Pulmonary MD Member Role: Lifetime Consulting Physician Address: [address] [place] [address]- [place] Telecom: Care Team Related Persons Name: ONDINA [...]
--- OUTSIDE RECORDS SUMMARY | 2024-05-19 16:21 | XMS_ITS | Continuity of Care Document ---
Author Organization [facility] David lt Address [address] [place] [address]- Support Name Relationship Address Phone HEMANT LEE [...] Unknown U navailable Care Team Providers Care Paint Roller Covers Supervisor Name Role Phone Miles OTOOLE, Bernie Hardy Primary Care Physician Encounter [facility] Date(s): 04/16/24 - 05/16/24 [facility] Adult [address] [place] [address]- Encounter Type: Triage Allergies, Adverse Reactions, Alerts Substance Criticality Severity Reaction Reaction Severity Status azithromycin 1 increases sx's Active Augmentin 2 increases sx Activ e NSAIDs Active morphine vomiting Active Flonase rhinitis [...] (oldterm) 8 03/14/09 Given 1Result Comment: [09/19/2017] [id number] 2Result Comment: [02/13/2018] [id number] 3Result Comment: [02/08/2017] [facility] [id number] 4Result Comment: [01/24/2013] ORDERRED BY [...] Maintenance, 07/09/23 2:12:00 PM EST, [facility], 163, cm, 06/06/23 7:29:00 EST, [...] Maintenance, 10/15/23 8:40:00 AM EDT, [facility], Partial fill upon patient request [...] EDT, Route to Pharmacy Electronically, [facility], 163, cm, 11/22/20 12:47:00 EDT, [...] 01/31/11 Status: Ordered Repeat number: 1 ferrous gluconate 324 mg oral tablet 1 tablet = 324 mg, By Mouth, 3 times a day, 0 Refills, Maintenance, 04/25/24 10:40:00 AM EST, Partial fill upon patient request if the prescription is for a schedule II opioid drug. Start Date: 04/25/24 Status: Ordered Repeat number: 1 gabapentin 300 mg oral capsule 300 mg, 1, capsule, By Mouth, 2 times a day, Refills 0, Maintenance, 04/25/24 10:41:00 AM EST, Partial fill upon patient request if the prescription is for a schedule II opioid drug. Start Date: 04/25/24 Status: Ordered Repeat number: 1 Humalog Kwik Pen 100 units/mL subcutaneous injection See Instructions, take 15 minutes before meals, 3 times a day if glucose levels: 200-250: take 2 units 251-300: take 4 units 301-350: take 6 units 351-400: take 8 units 401-450: take 10 units 451-500: take 12 unis call for glucose greater than 500, # 10 mL, 1 Refills, Maintenance, 04/25/24 1:33:00 PM EST, [facility], Partial fill upon patient request if the prescription is for a schedule II opioid drug., 163, cm, 04/25/24 10:33:00 EST, Height Start Date: 04/25/24 Status: Ordered Quantity: 10.0 Unit: mL Repeat number: 2 Hydrochlorothiazide See Instructions, 40mg By Mouth Daily & 25mg PRN, 0 Refills, Maintenance, 04/25/24 10:40:00 AM EST, Partial fill upon patient request if the prescription is for a schedule II opioid drug. Start Date: 04/25/24 Status: Ordered Repeat number: 1 hydrOXYzine hydrochloride 10 mg [...] Date: 05/11/21 Status: Ordered Repeat number: 1 Lamotrigine See Instructions, By Mouth 50mg in am and 200mg in pm, Refills 0, Maintenance, 04/25/24 10:41:00 AMEST, Instructions Replace Required Details, Partial fill upon patient request if the prescription is for a schedule II opioid drug. Start Date: 04/25/24 Status: Ordered Repeat number: 1 lamotrigine 200 [...] Quantity: 32.0 Unit: tablet Repeat number: 12 magnesium oxide 400 mg oral tablet 1 [...] EST, Route to Pharmacy Electronically, [facility], 163, cm, 03/07/24 8:07:00 EDT, Height Start Date: 04/08/24 Status: Ordered Quantity: 90.0 Unit: tablet Repeat number: 2 omeprazole 40 mg oral enteric coated capsule 1 capsule = 40 mg, By Mouth, 2 times a day, # 60 capsule, 6 Refills, Maintenance, 10/26/22 11:06:00 AM EDT, [facility], Partial fill upon patient request [...] Quantity: 12.0 Unit: tablet Repeat number: 1 Oxcarbazepine See Instructions, 900mg By Mouth twice a day, 0 Refills, Maintenance, 04/25/24 10:41:00 AM EST, Partial fill upon patient request if the prescription is for a schedule II opioid drug. Start Date: 04/25/24 Status: Ordered Repeat number: 1 Pen [place], 31 G x 5 mm BD Ultra Fine III See Instructions, # 100 each, Refills 3, Tot. Refills 3, Maintenance, use with lispro pen Dx: Type II diabetes, 04/25/24 11:15:00 AM EST, Supply, 163, cm, 04/25/24 10:33:00 EST, Height Start Date: 04/25/24 Status: Ordered Quantity: 100.0 Unit: each Repeat number: 4 predniSONE 20 mg oral tablet See Instructions, 1-2 tablet By Mouth Daily, PRN, 0 Refills, Maintenance, 04/25/24 10:42:00 AM EST,Partial fill upon patient request if the prescription is for a schedule II opioid drug. Start Date: 04/25/24 Status: Ordered Repeat number: 1 rizatriptan 10 mg oral tablet 1 tablet = 10 mg, By Mouth, PRN, 0 Refills, Maintenance, 05/11/21 10:03:00 AM EST, Partial fill upon patient request if the prescription is for a schedule II opioid drug. Start Date: 05/11/21 Status: Ordered Repeat number: 1 topiramate 50 mg oral [...] Status: Ordered Repeat number: 1 Trulicity Pen 1.5 mg/0.5 mL subcutaneous solution 0.5 mL = 1.5 mg, Subcutaneous Injection, Every week, rotate injection sites, # 2 mL, 5 Refills, Maintenance, 04/25/24 10:42:00 AM EST, Solution, [facility], Partial fill upon patient request if the prescription is for a schedule II opioid drug., 163, cm, 04/25/24 10:33:00 EST, Height Start Date: 04/25/24 Status: Ordered Quantity: 2.0 Unit: mL Repeat number: 6 Venlafaxine See Instructions, 75mg By Mouth, 0 Refills, Maintenance, 04/25/24 10:41:00 AM EST, Partial fill upon patient request if the prescription is for a schedule II opioid drug. Start Date: 04/25/24 Status: Ordered Repeat number: 1 Xolair 150 [...] Personnel Name: Marisa CHAIDEZ, Neto Osorio Position: [facility] Renal MD Member Role: Lifetime Consulting Physician Address: [address] [place] [address] [address] [place] [address]- Telecom: Name: Oz SHERWOOD, Lore Position: [facility] RN Member Role: Primary Care Nurse Name: Miles OTOOLE, Bernie Hardy Position: [facility] PCO Associate Professional Member Role: PCP Address: [address] [place] [address]- [place] Telecom: Name: Gregg Hardy MD Position: [facility] Pulmonary MD Member Role: Lifetime Consulting Physician Address: [address] [place] [address]- [place] Telecom: Care Team Related Persons Name: ONDINA [...]
--- OUTSIDE RECORDS SUMMARY | 2024-05-19 16:21 | XMS_ITS | Continuity of Care Document ---
Author Organization [facility] David lt Address [address] [place] [address]- Support Name Relationship Address Phone HEMANT LEE [...] Unknown U navailable Care Team Providers Care Taper And Floater Name Role Phone Bernie Aquino NP Primary Care Physician Encounter [facility] Date(s): 04/25/24 - 05/02/24 [facility] Adult [address] [place] [address]- Encounter Diagnosis Bipolar disorder(Discharge Diagnosis) - 04/25/24 Type 2 diabetes mellitus(Discharge Diagnosis) - 04/25/24 Attending Physician: Not on Staff, Attending MD [...] (oldterm) 8 03/14/09 Given 1Result Comment: [09/19/2017] [id number] 2Result Comment: [02/13/2018] [id number] 3Result Comment: [02/08/2017] [facility] [id number] 4Result Comment: [01/24/2013] ORDERRED BY [...] 0 Refills, Maintenance, 10/15/23 8:40:00 AM EDT, [facility], Partial fill upon patient request [...] 3:40:00 PM EDT, Route to Pharmacy Electronically, [facility], 163, cm, 11/22/20 12:47:00 EDT, [...] 2 Refills, Maintenance, 03/24/24 3:28:00 PM EST, [facility], 163, cm, 03/07/24 8:07:00 EDT, Height Start Date: 03/24/24 Status: Ordered Quantity: 120.0 Unit: tablet Repeat number: 1 montelukast 10 mg oral tablet 1, tablet, By Mouth, Daily in PM, # 90 tablet, Refills 1, Tot. Refills 1, Maintenance, 04/08/24 7:45:00 AM EST, Route to Pharmacy Electronically, [facility], 163, cm, 03/07/24 8:07:00 EDT, Height Start Date: 04/08/24 Status: Ordered Quantity: 90.0 Unit: tablet Repeat number: 2 omeprazole 40 mg oral enteric coated capsule 1 capsule = 40 mg, By Mouth, 2 times a day, # 60 capsule, 6 Refills, Maintenance, 10/26/22 11:06:00 AM EDT, [facility], Partial fill upon patient [...] 04/25/24 Status: Ordered Repeat number: 1 Pen [place], 31 G x 5 mm BD Ultra [...] inical Service Informant Bipolar disorder Discharge Diagnosis 04/25/24 Type 2 diabetes mellitus Discharge Diagnosis 04/25/24 Vital Signs Most recent to oldest [Reference Range]: 1 Height 163 cm (04/25/24 10:33 AM) Weight 79.2 kg (04/25/24 10:33 AM) Oxygen Saturation [94-100 %] 98 % (04/25/24 10:33 AM) Pulse Rate [55-90 bpm] 91 bpm *H* (04/25/24 10:33 AM) Body Mass Index [18.5-24.99 kg/m2] 29.81 kg/m2 *H* (04/25/24 10:33 AM) Blood Pressure [90-138/55-84 mm Hg] 107/ 73mm Hg (04/25/24 10:33 AM) Temperature [96.8-100.4 DegF] 97.7 DegF (04/25/24 10:33 AM) Mode of Delivery (Oxygen) Room air (04/25/24 10:33 AM) Blood pressure sites Arm, left (04/25/24 10:33 AM) Temperature Route Oral (04/25/24 10:33 AM) Weight Obtained Via Standing scale (04/25/24 10:33 AM) Social History Social History Type Response Smoking Status Never smoker entered on: 05/12/13 Sex Sex Representation Female (finding) Patient Care team information Care Team Personnel Name: Marisa CHAIDEZ, Neto Osorio Position: [facility] Renal MD Member Role: Lifetime Consulting Physician Address: [address] [place] [address] [address] [facility] [place] [address]- Telecom: Name: Lore Clitnon RN Position: [facility] AMB Nurse Member Role: Primary Care Nurse Name: Bernie Aquino NP Position: [facility] PCO Associate Professional Member Role: PCP Address: [address] [place] [address]- [place] Telecom: Name: Gregg Hardy MD Position: [facility] Pulmonary MD Member Role: Lifetime Consulting Physician Address: [address] [place] [address]- Telecom: Care Team Related Persons Name: ONDINA SINGLETARY Name: BLAIRE JACOB Insurance Providers Guarantor name: HEMANT LEE Health Plan Information #: 2 Payer: MEDICARE PART B OUTPT Member Number: [id number] Policy Number: NA Group Number: NA Health Plan Information #: 1 Payer: [employer] OUT OF STATE PLANS Member Number: [id number] Policy Number: NA Group Number: NA Health Plan Information #: 3 Payer: [facility] Member Number: [id number] Policy Number: NA Group Number: NA
--- OUTSIDE RECORDS SUMMARY | 2024-05-19 16:21 | XMS_ITS | Continuity of Care Document ---
Author Organization [facility] [place], [facility] David lt Address [address] [place] [address]- Support Name Relationship Address Phone LETITIA LEEINA Personal Relationship Unknown U navailable LEE, EMBER [...] Unknown U navailable Care Team Providers Care Rejector Name Role Phone Miles OTOOLE, Bernie Hardy Primary Care Physician [facility]counter [facility] Date(s): 04/08/24 - 05/08/24 [facility] [place] Adult [address] [place] [address]- Encounter Type: Triage Allergies, Adverse Reactions, Alerts [...] (oldterm) 8 03/14/09 Given 1Result Comment: [09/19/2017] [id number] 2Result Comment: [02/13/2018] [id number] 3Result Comment: [02/08/2017] [facility] [id number] 02 4Result Comment: [01/24/2013] ORDERRED BY [...] Maintenance, 10/15/23 8:40:00 AM EDT, [facility], Partial fill upon patient request [...] EDT, Route to Pharmacy Electronically, [facility], 163, cm, 11/22/20 12:47:00 EDT, [...] EST, Route to Pharmacy Electronically, [facility], 163, cm, 03/07/24 8:07:00 EDT, [...] 04/25/24 Status: Ordered Repeat number: 1 Pen [place], 31 G x 5 mm BD Ultra [...] Personnel Name: Marisa CHAIDEZ, Neto Osorio Position: [facility] Renal MD Member Role: Lifetime Consulting Physician Address: [address] [place] [address] [address] [facility] [place] [address]- Telecom: Name: Oz RN, Lore Position: [facility] AMB Nurse Member Role: Primary Care Nurse Name: Miles OTOOLE, Bernie Hardy Position: [facility] PCO Associate Professional Member Role: PCP Address: [address] [place] [address]- Telecom: Name: Gregg Hardy MD Position: [facility] Pulmonary MD Member Role: Lifetime Consulting Physician Address: [address] [place] [address]- Telecom: Care Team Related Persons Name: ONDINA [...]
--- OUTSIDE RECORDS SUMMARY | 2024-05-19 16:21 | XMS_ITS | Continuity of Care Document ---
Author Organization [facility] David lt Address [address] [place] [address]- Support Name Relationship Address Phone HEMANT LEE [...] Unknown U navailable Care Team Providers Care Supervisor Buffing And Pasting Name Role Phone Miles OTOOLE, Bernie Hardy Primary Care Physician Encounter [facility] Date(s): 04/11/24 - 05/11/24 [facility] Adult [address] [place] [address]- Encounter Type: Triage Allergies, Adverse Reactions, Alerts Substance Criticality Severity Reaction Reaction Severity Status azithromycin 1 increases sx's Active morphine vomiting Active Augmentin 2 increases sx Activ e Cats sneezing Active NSAIDs Active Flonase rhinitis Active Reglan double vision Active Demerol HCl vomiting Active Adhesive Bandage rash Act maddy 1Diarrhea 2makes sicker Immunizations Given and Recorded [...] (oldterm) 8 03/14/09 Given 1Result Comment: [09/19/2017] [id number] 2Result Comment: [02/13/2018] [id number] 3Result Comment: [02/08/2017] [facility] [id number] 317 02 4Result Comment: [01/24/2013] ORDERRED BY [...] Maintenance, 10/15/23 8:40:00 AM EDT, [facility], Partial fill upon patient request [...] EDT, Route to Pharmacy Electronically, [facility], 163, cm, 11/22/20 12:47:00 EDT, [...] EST, Route to Pharmacy Electronically, [facility], 163, cm, 03/07/24 8:07:00 EDT, [...] 04/25/24 Status: Ordered Repeat number: 1 Pen [place], 31 G x 5 mm BD Ultra [...] team information Care Team Personnel Name: Marisa CHADIEZ, Neto Osorio Position: [facility] Renal MD Member Role: Lifetime Consulting Physician Address: [address] [place] [address] [address] [facility] [place] [address]- Telecom: Name: Oz RN, Lore Position: [facility] AMB Nurse Member Role: Primary Care Nurse Name: Miles OTOOLE, Bernie Hardy Position: [facility] PCO Associate Professional Member Role: PCP Address: [address] [place] [address]- Telecom: Name: Gregg Hardy MD Position: [facility] Pulmonary MD Member Role: Lifetime Consulting Physician Address: [address] [place] [address]- Telecom: Care Team Related Persons Name: ONDINA [...]
--- OUTSIDE RECORDS SUMMARY | 2024-05-19 16:21 | XMS_ITS | Continuity of Care Document ---
Author Organization [facility] David lt Address [address] [place] [address]- Support Name Relationship Address Phone HEMANT LEE [...] Unknown U navailable Care Team Providers Care Streetcar Motorman Name Role Phone Miles OTOOLE, Bernie Hardy Primary Care Physician Encounter [facility] Date(s): 03/24/24 - 04/23/24 [facility] Adult [address] [place] [address]- Encounter Type: Triage Allergies, Adverse Reactions, Alerts [...] (oldterm) 8 03/14/09 Given 1Result Comment: [09/19/2017] [id number] 2Result Comment: [02/13/2018] [id number] 3Result Comment: [02/08/2017] [facility] [id number] 317 02 4Result Comment: [01/24/2013] ORDERRED BY [...] 3:40:00 PM EDT, Route to Pharmacy Electronically, [facility], 163, cm, 11/22/20 12:47:00 EDT, [...] Maintenance, 03/24/24 3:28:00 PM EST, [facility], 163, cm, 03/07/24 8:07:00 EDT, Height Start Date: 03/24/24 Status: Ordered Quantity: 120.0 Unit: tablet Repeat number: 1 montelukast 10 mg oral tablet 1, tablet, By Mouth, Daily in PM, # 90 tablet, Refills 1, Tot. Refills 1, Maintenance, 04/08/24 7:45:00 AM EST, Route to Pharmacy Electronically, [facility], 163, cm, 03/07/24 [...] 6 Refills, Maintenance, 10/26/22 11:06:00 AM EDT, [facility], Partial fill upon patient [...] 0 Refills, Maintenance, 08/28/23 1:41:00 PM EDT, [facility], 163, cm, 08/22/23 8:24:00 [...] MD Member Role: Lifetime Consulting Physician Address: [address] [place] [address] [address] [place] [address]- [place] Telecom: Name: Lore Clinton RN Position: [facility] AMB Nurse Member Role: Primary Care Nurse Name: Miles OTOOLE, Bernie Hardy Position: [facility] PCO Associate Professional Member Role: PCP Address: [address] [place] [address]- [place] Telecom: Name: Gregg Hardy MD Position: [facility] Pulmonary MD Member Role: Lifetime Consulting Physician Address: [address] [place] [address]- [place] Telecom: Care Team Related Persons Name: ONDINA [...]
--- OUTSIDE RECORDS SUMMARY | 2024-05-19 16:21 | XMS_ITS | Continuity of Care Document ---
Author Organization [facility] David lt Address [address] [place] [address]- Support Name Relationship Address Phone HEMANT LEE [...] Unknown U navailable Care Team Providers Care Canal Equipment Mechanic Name Role Phone Miles OTOOLE, Bernie Hardy Primary Care Physician Encounter [facility] Date(s): 04/03/24 - 05/03/24 [facility] Adult [address] [place] [address]- Encounter Type: Triage Allergies, Adverse Reactions, Alerts Substance Criticality Severity Reaction Reaction Severity Status azithromycin 1 increases sx's Active morphine vomiting Active Adhesive Bandage rash Act maddy NSAIDs Active Flonase rhinitis Active Augmentin 2 [...] (oldterm) 8 03/14/09 Given 1Result Comment: [09/19/2017] [id number] 2Result Comment: [02/13/2018] [id number] 3Result Comment: [02/08/2017] [facility] [id number] 317 02 4Result Comment: [01/24/2013] ORDERRED BY [...] Maintenance, 10/15/23 8:40:00 AM EDT, [facility], Partial fill upon patient [...] EDT, Route to Pharmacy Electronically, [facility], 163, cm, 11/22/20 12:47:00 [...] EST, Route to Pharmacy Electronically, [facility], 163, cm, 03/07/24 8:07:00 EDT, [...] 04/25/24 Status: Ordered Repeat number: 1 Pen [place], 31 G x 5 mm BD Ultra [...] Member Role: Lifetime Consulting Physician Address: [address] [place] [address] [address] [place] [address]- Telecom: Name: Oz RN, Lore Position: [facility] AMB Nurse Member Role: Primary Care Nurse Name: Miles OTOOLE, Bernie Hardy Position: [facility] PCO Associate Professional Member Role: PCP Address: [address] [place] [address]- Telecom: Name: Gregg Hardy MD Position: [facility] Pulmonary MD Member Role: Lifetime Consulting Physician Address: [address] [place] [address]- Telecom: Care Team Related Persons Name: ONDINA [...]
--- OUTSIDE RECORDS SUMMARY | 2024-05-19 16:22 | XMS_ITS | Data Portability ---
Author Organization [facility] Office Address [address], [address] [place] [address] Care Team Providers Care Stave And Bolt Equalizer Name Role Phone MITZI STACY Primary Care Provider Assessment Encounter Date Assessment Date Assessment LastModified [...] we have concerns with regard to her skilled nursing outcome after arthroscopy given the mild underlying [...] with this appointment. This visit is a wond-cc-asiq visit during the COVID-19 pandemic Public Health [...] all services provided today in accordance with [facility] and CDC guidelines. There was additional practice expense incurred due to the Public Health Emergency. This additional expense includes but is not limited to: ? ? Additional clinical staff and medical technical service representative time for pre-screening ? ? Time spent [...] AVN and loose bodies 2021 022 [email or web address] [facility] [place], [address], [place], [address], 09:34:34 Medication Orders None recorded. Patient TargetsNo [...] wo pelvi s Fin al Report EXAM#: [id number] PROCED URE: DXR 0178 XR HIP [...] RAMÍREZ M.D. On: Jul 06 2021 1:13P [email or web address] [facility] [address] [facility], [place], [address], 07/06/2021 14:45:47 07/19/19 22 07/16/2021 MRI, hip, w/o contr ast Pre limina ry Report EXAM#: [id number] PROCED URE: MR 0073 MRI HIP [...] 18 2021 9:11A Signed by: On: prem [facility] [address], [place], [address], 07/18/2021 14:51:07 07/19/19 22 07/16/2021 MRI, hip, w/o contr ast Fin al Report EXAM#: [id number] PROCED URE: MR 0073 MRI HIP [...] [place] M.D. On: Jul 18 2021 11:57A [facility] [address] [place], [address], 07/18/2021 14:01:26 03/29/20 22 03/27/2022 MRI hip left Fin al Report EXAM#: [id number] PROCED URE: MR 0070 MRI HIP [...] supero inferi or by 0.3 cm tate arc welding machine operator ior by 0.3 cm mediol ateral (axial [...] [place] M.D. On: Mar 29 2022 9:14A [email or web address] [facility] [address], [place], [address], 03/29/2022 13:42:34 03/29/20 22 03/27/2022 MRI, hip, w/o contr ast Fin al Report EXAM#: [id number] PROCED URE: MR 0073 MRI HIP [...] [place] M.D. On: Mar 29 2022 9:25A [id number] [facility] [address] [place], [address], 03/29/2022 13:42:48 01/18/20 23 01/17/2023 xr hip right 4vw_W or wo pelvi s Fin al Report EXAM#: [id number] PROCED URE: DXR 0178 XR HIP [...] M.D. On: Jan 17 2023 12:22P [email or web address] [facility] [address] [place], [address], 01/17/2023 12:38:51 Result Notes None recorded. Problems Name Problem SNOMED Code Status Onset Date Resolution Date Notes Provider Name and Address Organization Details Recorded Time Acetabular labrum tear 106903851 Active 021 Enedina murphy [facility] 14:17:00 Problem Notes None recorded. Procedures Surgical History Date Name Laterality Status Provider Name and Address Organization Details Recorded Time 022 parathyroidectomy completed Sonya Nation [facility] 04/12/2022 13:46:24 018 Orthopaedic Surgery completed Lexii Pacheco [facility] 02/23/2021 13:14:29 009 Orthopaedic Surgery completed Lexii Pacheco [facility] 02/23/2021 13:14:38 000 Orthopaedic Surgery completed Lexii Pacheco [facility] 02/23/2021 13:14:46 Imaging Results Imaging Date Name Status LastModified by Organiz ation Details LastModified Time 07/06/2021 xr hip right 4vw_W or wo pelvis completed [address] [facility] [address] [place], [address], 07/06/2021 14:45:47 07/16/2021 MRI, hip, w/o contrast completed [address] [facility] [address] [place], [address], 07/18/2021 14:51:07 07/16/2021 MRI, hip, w/o contrast completed [address] [facility] [address] [place], [address], 07/18/2021 14:01:26 03/27/2022 MRI hip left completed [address] [facility] [address] [place], [address], 03/29/2022 13:42:34 03/27/2022 MRI, hip, w/o contrast completed [address] [facility] [address] [place], [address], 03/29/2022 13:42:48 01/17/2023 xr hip right 4vw_W or wo pelvis completed [email or web address] [facility] [address] [facility], [place], [address], 01/17/2023 12:38:51 Procedure Notes None recorded. Medical Equipment None Reported. Allergies Allergen ID Allergen Name Allergen Category Reaction Reaction Severity Criticality Documentation Date Start Date Code Code System Note Provider Name and Address Organization Details Recorded Time 910731 morphine medicatio n Not available Not available Not available 02/23/2021 7052 RxNorm Lexii Pacheco [facility] 13:07:48 383890 adhesive tape environme nt,medica tion Not available Not available Not available 02/23/2021 [email or web address] 13:07:48 965401 Demerol medicatio n Not available Not available Not available 02/23/2021 93516 1 RxNorm Lexii Pacheco [facility] 13:07:48 929399 Non-stero idal anti-infl ammatory agent (product) medicatio n other Not available Not available 02/23/2021 50562 005 SNOMED IgG defic iency , canno t take. Lexii Pacheco [facility] 13:13:07 Medications Name [...] Updated DateTime 07/06/2021 162.56 cm Dhaval Coburn [facility] 07/06/2021 11:20:09 Date Recorded Body height Body mass index (BMI) Body weight Provider Name and Address Organization Details Last Updated DateTime 07/26/2021 162.56 cm 28.7 kg/m2 01129.93 g [facility] 07/26/2021 12:20:18 Date Recorded Body height Body mass index (BMI) Body weight Provider Name and Address Organization Details Last Updated DateTime 03/10/2022 162.56 cm 28.8 kg/m2 79812.52 g Rosio Whaley [facility] 03/10/2022 13:26:00 Date Recorded Body height Body mass index (BMI) Body weight Provider Name and Address Organization Details Last Updated DateTime 04/12/2022 162.56 cm 29.5 kg/m2 64817.89 g [facility] 04/12/2022 13:46:00 Date Recorded Body height Provider Name an d Address Organization Details Last Updated DateTime 01/17/2023 162.56 cm Shalom Gaona [facility] 01/17/2023 11:59:26 Social History Question Answer Notes LastModified by Organizat ion Details LastModified Time Tobacco Smoking Status Never Smoker Lexii murphy [facility] 02/23/2021 13:07:49 What Is Your Level Of Alcohol Consumption? None [email or web address] Information not available 02/23/2021 What Is Your Level Of Caffeine Consumption? None Information not available 03/10/2022 Do You Or Have You Ever Used E-cigarettes Or Vape? 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 Yes [email or web address] Information not available 02/23/2021 Briefly Explain Your Foot/ankle Condition (injury) Hip Problem, Pain, Instability, Weakness, Stiffness, Spasms, Some Sharp Pains [email or web address] Information not available 02/23/2021 Date Of Injury/Duration Of Injury (weeks, Months, Years) No Injury, Date Of Initial Diagnosis 2017 [email or web address] Information not available 02/23/2021 What Treatments Have You Tried For This Condition? Cortisone Shot, A Little Pt [email or web address] Information not available 02/23/2021 Have Any Other Tests Been Done For This Problem? X-ray [email or web address] Information not available 02/23/2021 Is This Condition/proble m Affecting Your Ability To Exercise Or Perform Activities Of Daily Living? Yes [email or web address] Information not available 02/23/2021 Do You Wear Custom-made Orthotics? No [email or web address] Information not available 02/23/2021 How Old Are They? 4 Years [email or web address] Information not available 02/23/2021 Have You Ever Had Problems With Healing A Wound? Have You Ever Been Told You Are A Slow Healer? No [email or web address] Information not available 02/23/2021 Do You Or Have You Ever Used Smokeless Tobacco? Never Used Smokeless Tobacco [email or web address] Information not available 02/23/2021 How Much Tobacco Do You Smoke? No [email or web address] Information not available 02/23/2021 What Types Of Sporting Activities Do You Participate In? None [email or web address] Information not available 02/23/2021 How Many Years Have You Smoked Tobacco? 0 [email or web address] Information not available 02/23/2021 Sex: Unknown Functional Status Question Answer Note LastModified by Organizat ion Details LastModified Time What is your exercise level? Occasional Information not available 03/10/2022 Mental Status None recorded. Family History Relationship Description Onset Age of this Age Resolved Age Notes LastModified by Organization Details LastModified Time Father No current problems or disability [email or web address] Not available 13:13:31 Mother No current problems or disability [email or web address] Not available 13:13:31 Medical History Condition Response Blood Clots / Phlebitis N Heart Problems N HIV or AIDS N Depression or Anxiety Y High Blood Pressure N Irregular Heartbeat N MRSA Y Emphysema / Chronic Bronchitis N Any Other Significant Medical Issues Y Reaction to General/Local Anesthesia N Weight Gain / Loss N Hepatitis / Jaundice N Kidney / Bladder Infections Y Diabetes [...] Asthma / Shortness of Breath / Sleep Coordinator Of Placement ea (please specify) Y Pulmonary Embolism N Gynecological HistoryNo gynecological history recorded. Obstetrics History GPAL:G 0 P 0 0 0 0 Past Encounters Encounter ID Performer Location Encounter Start Date Encounter Closed Date Diagnosis/Indication Diagnosis SNOMED-CT Code Diagnosis ICD10 Code Diagnosis Note [id number] WANG VALENZUELA MD [place] [facility] [address] [facility] [address] [place] [id number] 02/23/2021 12:48:39 02/23/2021 13:44:40 Hip pain 36657770 M25.551 Acetabular labrum tear 952633533 M24.151 [id number] ROMY MULLER [place] [facility] [address] [facility] [address] [place] [id number] 03/16/2021 13:16:51 03/16/2021 14:16:47 Acetabular labrum tear 037552343 M24.151 [id number] ROMY MULLER [place] [facility] [address] [facility] [address] [place] [id number] 05/18/2021 12:19:43 05/18/2021 13:04:42 Acetabular labrum tear 701770910 M24.151 [id number] WANG VALENZUELA MD [place] [facility] [address] [facility] [place] [address] 07/06/2021 10:39:57 07/06/2021 21:38:58 Hip pain 25166638 M25.551 [id number] WANG VALENZUELA MD [place] [facility] [address] [place] [id number] 07/26/2021 09:33:05 07/26/2021 15:13:55 Osteoarthritis of right hip joint 5832147193 49654 M16.11 [id number] WANG VALENZUELA MD [place] [facility] [address] [place] [id number] 03/10/2022 12:49:51 03/16/2022 20:28:35 Hip pain 21235333 M25.606 [id number] WANG VALENZUELA MD [place] [facility] [address] [facility] [place] [address] 04/12/2022 13:04:41 04/19/2022 10:57:56 Hip pain 67108937 M25.057 [id number] ROMY COLORADO [place] [facility] [address] [facility] [place] [address] 01/17/2023 10:53:10 01/17/2023 12:11:23 Complete tear, hip ligament 442697504 S73.101A Health Concerns Section Related Observation LastModified by Organization Detai ls LastModified Time None Recorded Concern Status LastModified by Organization Details LastModified Time None Recorded Advance Directives Directive None Recorded Payers Encounter Date Sequence Insurance Name Policy Number Policy Brambila Covered Member ID Brambila Member ID Guarantor Name 07/06/2021 1 [facility]: [employer] [id number] Pineda Garcia [id number] Meredith Garcia 07/06/2021 2 [place] [employer] Meredith Garcia [id number] Meredith Garcia 07/26/2021 1 [facility]: [employer] [id number] Pineda Garcia [id number] Meredith Garcia 07/26/2021 2 [place]: [facility] Meredith Garcia [id number] Meredith Garcia 03/10/2022 1 [place] [facility] [id number] Pineda Garcia [id number] Meredith Garcia 03/10/2022 2 MED[place]: [facility] Meredith Garcia [id number] 24 Meredith Garcia 04/12/2022 1 [place] [facility] [id number] Pineda Garcia [id number] Meredith Garcia 04/12/2022 2 MED[place]ARE [place]: [facility] Meredith Garcia [id number] 24 Meredith Garcia 01/17/2023 1 [place] [facility] [id number] Pineda Garcia [id number] Meredith Garcia 01/17/2023 2 MEDICARE B-[place]: [facility] Meredith Garcia [id number] 24 Meredith Garcia Notes Date Note Type [...] considering a thyroidectomy soon. WANG VALENZUELA MD [address] [place] [address], [phone], [facility] 07/13/2021 11:11:43 07/26/2021 text/html COVID-19 [facility] NT: This visit was conducted as a real time interactive TeleHealth audiovisual TeleHealth visit conducted via [employer] 4 U during the ongoing COVID-19 [facility] Public Health Emergency. The patient was identified by name and date of and consented to this TeleHealth visit. The patient was at their home in [place] and I was at my [place] office. This was done over the course of 26 minutes including record review. We are in touch with Meredith today via telehealth. Patient is currently in [place]. This is for follow-up regarding her right hip MRI recently obtained. The overall concern was underlying mild arthritic changes middle-aged female with degenerative labral tear. WANG VALENZUELA MD [address] [place] [address], [phone], [facility] 08/02/2021 11:45:39 03/10/2022 [...] boot, also was hospitalized in the psychiatric ari at the time, so no crutches were allowed and she started to have more and more bilateral hip pain, right more than left. She is ambulating now with a cane and has a lot of discomfort. Plain radiographs were obtained today. WANG VALENZUELA MD [address] [place] [address], [phone], [facility] 03/18/2022 07:46:12 04/12/2022 text/html Meredith return s today for followup regarding her hips. She had MRI in the interim. Her pain mostly seems to be posterior SI joint. She reports focal point tenderness. She denies any neurologic deficits. She presents with a cane. Previously, we had concerns for significant osteoarthritic changes being present already. WANG VALENZUELA MD [address] [place] [address], [phone], [facility] 04/27/2022 15:11:21 01/17/2023 [...] help her significantly as well. ROMY COLORADO [address] [place] [address], [place], [phone], [facility] 01/18/2023 22:43:28 OBGyn Episode No OBEpisode recorded.
--- OUTSIDE RECORDS SUMMARY | 2024-05-19 16:22 | XMS_ITS | Data Portability ---
Author Organization [place] - [facility], Allergy Address [address] [address] Assessment Encounter Date Assessment Date Assessment LastModified [...] Imaging CT, sinuses, w/o contrast 2023 024 [email or web address], [address] [facility], [place], [address], 10:39:49 Medication Orders budesoni de 0.5 mg/2 mL suspensi on for nebuliza tion 2023 024 [id number], [address] [facility], [place], [address], 10:37:41 Patient TargetsNo targets recorded. Patient InstructionsNo instructions recorded. Reason for Referral None Reported. Results Created Date Observation Date Name Description Value Unit Range Abnormal Flag Note LastModifiedBy Organization Detail LastModifiedTime 10/01/19 CT, sinus es, w/o contr ast No observ ation record ed. [facility] [address], [place], [address], 10/01/2023 10:36:08 10/17/19 24 10/01/2023 CT, sinus es, w/o contr ast No observ ation record ed. [facility] [place] [address], [place], [address], 10/17/2023 12:45:07 01/02/20 24 05/28/2019 imagi ng/di [...] Organization Details Recorded Time Nasal congestio n 25260289 Active 2019 Nasal congestion ; Note: Date Diagnosed: 05/26/2019 1:39 PM (R09.81) Not Available [facility] 4 02:47:40 Immunodef iciency disorder 428880753 Active 2019 Immunodefi ciency, unspecifie d; Note: Changed from D84 to D84.9 (11/22/2020 11:21 AM) , Date Diagnosed: 05/26/2019 1:39 PM (D84) Not Available [facility] 4 02:47:43 Sensorine ural hearing loss 11023803 Active 2020 Sensorineu ral hearing loss, unilateral , left ear, with unrestrict ed hearing on the contralate ral side; Note: Date Diagnosed: 01/20/2021 1:26 PM (H90.42) Not Available [facility] 4 02:47:40 Chronic sinusitis 50064512 Active 2020 Sinusitis (chronic) NOS; Note: Date Diagnosed: 04/26/2021 2:03 PM (J32.9) Not Available [facility] 4 02:47:42 Posterior rhinorrhe a 39656641 Active 2019 Postnasal drip; Note: Date Diagnosed: 05/26/2019 2:03 PM (R09.82) Not Available [facility] 4 02:47:46 Abnormal auditory perceptio n 83049836 Active 2021 Other abnormal auditory perception s, left ear; Note: Date Diagnosed: 10/12/2021 11:06 AM (H93.292) Not Available [facility] 4 02:47:41 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 a NOS; Note: Date Diagnosed: 05/26/2019 2:51 PM (D80.1) Not Available [facility] 4 02:47:43 Headache 31423557 Active 2019 Headache; Note: Date Diagnosed: 05/26/2019 1:39 PM (R51) Headache , unspecifie d; Note: Changed from R51 to R51.9 ( 1 3:39 PM) , Date Diagnosed: 05/26/2019 1:39 PM (R51) Not Available [facility] 4 02:47:47 Chronic cough 28971394 Active 2023 LIDYA MINOR MD [address] [facility] [address], [place], [address] , [facility] [place] 4 10:16:49 Perennial allergic rhinitis 240216844 Active 2023 LIDYA MINOR MD [address] [facility], [place], [address] , [facility] - [facility] [place] 4 10:17:00 Hyperimmu noglobuli n E syndrome 36563744 Active 2023 LIDYA MINOR MD 100 [facility],[place] [facility], [place], [address] , [facility] - [facility] [place] 4 10:17:16 Moderate persisten t asthma 535159478 Active 2023 LIDYA MINOR MD [address] [facility], [place], [address] , [facility] - [facility] [place] 4 10:17:24 Polyp of nasal cavity 179566099 Active 2023 LIDYA MINOR MD [address] [facility], [place], [address] , [facility] - [facility] [place] 4 10:36:51 Problem Notes None recorded. Procedures Surgical History Date Name Laterality Status Provider Name and Address Organization Details Recorded Time 4 JMSNasal/Sinus Endoscopy completed LIDYA URIBE MD [address], [place], [address], [facility] - [facility] [place] 10/01/2023 10:35:41 functional endoscopic sinus surgery completed LIDYA URIBE MD [address] [facility] [address], [address], [place] - [facility] [place] 09/30/2023 14:24:57 simple extraction of tooth completed LIDYA URIBE MD [address] [facility] [address], [address], [place] - [facility] [place] 09/30/2023 14:25:15 dilation and curettage completed LIDYA URIBE MD 100 [facility],[address], [address], [place] - [facility] [place] 09/30/2023 14:26:03 arthroscopy of knee completed LIDYA URIBE MD 100 [facility],[address], [address], [place] - [facility] [place] 09/30/2023 14:26:15 Imaging Results Imaging Date Name Status LastModified by [facility] Details LastModified Time 10/01/2023 CT, sinuses, w/o contrast completed evelyn Ents [address], [address], 10/01/2023 10:36:08 10/01/2023 CT, sinuses, w/o contrast completed evelyn [facility] [address], [address], 10/17/2023 12:45:07 05/28/2019 imaging/diagno stic result completed [...] Name and Address Organization Details Recorded Time [id number] Flonase medicatio n other Not available Not available 09/25/2023 98332 RxNorm React ion: unkno wn, unspe cifie d;; Not Available [facility] 4 01:19:32 583839 Demerol medicatio n Not available Not available Not available 10/01/2023 07361 1 RxNorm Serge murphy [place] - [facility] 4 10:10:31 769112 morphine medicatio n Not available Not available Not available 10/01/2023 7052 RxNorm Serge murphy [place] [facility] 4 10:10:40 Medications Name Sig Start Date Stop Date Status Note LastModified by Organization Details LastModified Time cyclobenz aprine 10 mg tablet active Medicati on ID: [id number] B rand Name: santo romero Send Method: [...] mg tablet 04/26 completed Medicati on ID: [id number] D uration Value: 30 Brand Name: gabapent [...] 10 mg tablet active Medicati on ID: [id number] B rand Name: atorvast atin Sen d [...] 8 mg tablet active Medicati on ID: [id number] B rand Name: ondanset sharon HCl Send [...] 10 mg tablet active Medicati on ID: [id number] B rand Name: rizatrip meza Send Method: [...] mg tablet 09/30 completed Medicati on ID: [id number] D uration Value: 30 Brand Name: hydroxyz ine HCl Send Method: E-Prescr ibed Sub s Allowed: subs OK Speci al Instruct ion: TAKE ONE TABLET BY MOUTH EVERY DAY NEEDED. START ON 02/10/19 Medicati onGeneri cName: hydroxyz ine HCl Medi cation ID: [id number] D uration Value: 30 Brand Name: hydroxyz [...] mg tablet 2019 active Medicati on ID: [id number] D uration Value: 30 Brand Name: benztrop ine Send Method: E-Prescr ibed Sub s Allowed: subs OK Speci al Instruct ion: TAKE 1/2 TABLET BY MOUTH IN THE MORNING AND 1 TABLET BY MOUTH AT BEDTI [facility] eric[facility] : benztrop ine Not Available Not Available Not Available venlafaxi ne 50 mg tablet TAKE ONE TABLET BY MOUTH ONCE DAILY IN THE MORNING active Not Available Not Available No t Available omeprazol e 20 mg capsule,d elayed release 09/30 completed Medicati on ID: [id number] D uration Value: 90 Brand Name: omeprazo le Send Method: E-Prescr ibed Sub s Allowed: subs OK Speci al Instruct ion: TAKE ONE CAPSULE BY MOUTH TWICE A DAY Medi cationGe nericNam e: omeprazo le [facility] ID: [id number] D uration Value: 90 Brand Name: omeprazo [...] mg tablet 04/26 completed Medicati on ID: [id number] D uration Value: 30 Brand Name: folic [...] 24 hr 2019 active Medicati on ID: 794393 D uration Value: 30 Brand Name: metformi [...] mg tablet 2019 active Medicati on ID: [id number] D uration Value: 30 Brand Name: lisinopr il Send Method: E-Prescr ibed Sub s Allowed: subs OK Speci al Instruct ion: TAKE ONE TABLET BY MOUTH EVERY DAY Medi cationGe nericNam e: lisinopr il Not Available Not Available Not Available ipratropi um bromide 21 mcg (0.03 %) nasal spray 2 spray 04/26 completed Medicati on ID: [id number] [place] By Name: Jerome Sauer nd [...] mg-40 mg capsule active Medicati on ID: [id number] B rand Name: butalbit al-aceta minophen -caff Se nd Method: E-Prescr ibed Sub s Allowed: subs OK Medic ationGen ericName : butalbit al-aceta minophen -caff Not Available Not Available Not Available Latuda 40 mg tablet 04/26 completed Medicati on ID: [id number] D uration Value: 30 Brand Name: Latuda [...] ous pen injector active Medicati on ID: 960339 B rand Name: Trulicit y Send Method: [...] mg capsule 04/26 completed Medicati on ID: [id number] D uration Value: 30 Brand Name: Vraylar Send Method: E-Prescr ibed Sub s Allowed: subs OK Speci al Instruct ion: TAKE ONE CAPSULE BY MOUTH EVERY DAY IN THE MORNING Medicati onGeneri cName: Brandyn Medicsheila on ID: [id number] D uration Value: 30 Brand Name: Brandyn [...] Updated DateTime 10/01/2023 162.56 cm 29 kg/m2 69331.11 g Serge Álvarez [facility] 10/01/2023 10:14:43 Social History Question Answer Notes LastModified by [employer] ion Details LastModified Time Tobacco Smoking Status Never Smoker Serge murphy [place] [facility] 10/01/2023 10:11:57 What Is Your Level Of Alcohol Consumption? None Information not available 10/01/2023 Do You Use Any Illicit Or Recreational Drugs? No [email or web address] Information not available 10/01/2023 Do You Or Have You Ever Used Any Other Forms Of Tobacco Or Nicotine? No [email or web address] Information not available 10/01/2023 Sex: Unknown Functional Status None recorded. Mental Status None recorded. Family History Nothing Reported. Medical History Condition Response Allergies/Hayfever N Heart Problems N Emphysema N Migraines N Thyroid Problems N Glaucoma N Depression Y COPD N Nasal or Sinus Problems N Anemia N Immune System Disorder N Anesthesia Complications N Heart Attack (TN) N Other Skin Condition N Diabetes Y Bleeding Disorder N Food Allergy N Arthritis Y Hearing Loss N Hyperlipidemia Y Stroke N Dementia N Nasal polyps N Asthma N High Cholesterol Y Sleep Disorder Y GERD/Reflux N Liver Disease N Headaches Y Fibromyalgia N Hypertension N Speech Delay N Kidney Disease Y Gynecological HistoryNo gynecological history recorded. Obstetrics History GPAL:G 0 P 0 0 0 0 Past Encounters Encounter ID Performer Location Encounter Start Date Encounter Closed Date Diagnosis/Indication Diagnosis SNOMED-CT Code Diagnosis ICD10 Code Diagnosis Note [id number] LIDYA MINOR MD [facility] [address] [address] 10/01/2023 09:53:23 10/01/2023 10:39:48 Chronic cough 67535783 R05.3 Posterior rhinorrhea 758 99182 R09.82 Perennial allergic rhinitis 104365118 J30.89 Hypogammaglobulinemia 11 5381803 D80.1 Hyperimmun oglobulin E syndrome 56959992 D82.4 Moderate p ersistent asthma 508489864 J45.40 Chronic sinusitis 426137 00 J32.9 Polyp of nasal cavity 73 0693858 J33.0 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 There is evidence of prior sinus surgery with an adhesion on the right side. Bilateral diffuse maxillary sinus thickening noted. Suggest topical steroid irrigation s and follow-up in 3 months. No indication for surgical interventi on at the present time Health Concerns Section Related Observation LastModified by Organization Detai ls LastModified Time None Recorded Concern Status LastModified by Organization Details LastModified Time None Recorded Advance Directives Directive None Recorded Payers Encounter Date Sequence Insurance Name Policy Number Policy Brambila Covered Member ID Brambila Member ID Guarantor Name 10/01/2023 2 MEDICARE [place]: [email or web address] Meredith Garcia [id number] Meredith Garcia 10/01/2023 1 BCBS-ID:[facility] [id number] Meredith Garcia [id number] Meredith Garcia Notes Date Note Type [...] with the scent. LIDYA URIBE MD [address], [address], [facility] - [facility] 10/01/2023 12:13:54 OBGyn Episode No OBEpisode recorded.
== END 2024-05-19 15:00 | disposition home or self-care (01) ==
PROVIDERS: PCP Nurse Practitioner Family; Visit Provider Internal Medicine Hypertension Specialist
DX: N25.1 Nephrogenic diabetes insipidus (principal); N18.2 Chronic kidney disease, stage 2 (mild)
CPT/HCPCS: 99212

== ENCOUNTER 2024-07-02 09:25 | Outpatient (AMB) | payer BC, MEDICARE, MEDICAID, SELFPAY ==
[2024-07-02 09:27] VITALS: BP 118/74; PULSE 111; O2SAT 97; BMI 30.2
--- NOTE | 2024-07-02 09:27 | HO.NEPHOV_ITS ---
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 Required: No Accompanied by: Self / Same As Patient Allergies adhesive [ADHESIVE] Allergy (Intermediate, Verified 07/02/24 09:30) BLISTER fluticasone [From FLONASE] Allergy (Unknown, Verified 07/02/24 09:30) unknown meperidine [Demerol] Allergy (Unknown, Verified 07/02/24 09:30) vomit metoclopramide [From REGLAN] Allergy (Unknown, Verified 07/02/24 09:30) DIPLOPIA transparent dressing Allergy (Unknown, Verified 07/02/24 09:30) rash morphine [MORPHINE] Adverse Reaction (Severe, Verified 07/02/24 09:30) NAUSEA & VOMITING TEGADERM BANDAGE Allergy (Intermediate, Uncoded 04/16/24 13:55) RASH morphine Allergy (Unknown, Uncoded 04/16/24 13:55) vomit tape Allergy (Unknown, Uncoded 04/16/24 13:55) rash From DEMEROL Adverse Reaction (Severe, Uncoded 04/16/24 13:55) NAUSEA & VOMITING HPI Comments Details: Meredith is a pleasant 48-year-old woman with a history of immunodeficiency and currently disease IV immunoglobulins. She has a history of bipolar disorder and has been on lithium for several years. 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 Serum creatinine has been stable around 1.0. [place] was discontinued. She is currently on Vraylar. She has developed symptoms of TD. The plan is to switch her back to lithium as per her psychiatrist. She underwent a partial thyroidectomy on 01/06/2022. History of papillary thyroid Ca She disease IV hemoglobin every 3 weeks for immunodeficiency. History of medullary calcinosis of the kidneys. She has been on topiramate for several years. 05/28/23 ; Recently admitted with Campylobacter Jejuni ; Had diarrhea ; Ca and K was low 24 hr urine showed a volume of 4600 ml !! 07/23/23; Amiloride was increased in May; UO has decreased ;She has cut back on soda ;Now she is back on [place] since May 2023 08/20/23 ; Recently she had 2 sinus infections treated with antibiotics without much improvement. She has an appointment with ENT in end of September. She has had some nausea and vomiting. P.o. intake has been suboptimal. Creatinine was 1.06 and BUN bumped up to 27 and she he is here for further evaluation. Baseline BUN is around 18 mg/dL. 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 Blood sugar spiked and ended up in ER. Cr up to 1.3 01/02/24; Recurrent ER visits for vomiting ;REceived IVF fluids and discharged 03/05/24;Was in ER few days ago;HAd diarrhea ;REceived IVF;Gets IVF at infusion center every 1-2 weeks 05/19/24;Feels dizzy 07/02/24 Fell while dealing with dog and sustained concussion Now under therapy- Speech/Lang/Cognition and ocular and vestibular PT Tries to keep up with fluid intake Cr is around 1.08 Not on [place] since Apr 2024 [facility] Medical History (Updated 04/29/24 @ 00:03 by James Oviedo) Bipolar 1 disorder PTSD (post-traumatic stress disorder) Acute anxiety Depression History of recurrent pneumonia History of Pseudomonas pneumonia Bipolar disorder Menstrual migraine Allergic asthma Dyslipidemia Type 2 diabetes mellitus FMF (familial Mediterranean fever) Primary immunodeficiency disorder Surgical History History of endoscopy (~11/2023) History of ankle surgery History of umbilical hernia repair History of dilation and curettage History of arthroscopy History of oral surgery History of delivery Social History Household Members: Spouse and Children Household Members Other:: , Son Housing: House Do you presently have visiting nurse or other home services: No Alcohol intake: never Patient Tobacco Use Status: Never used Tobacco e-Cigarette/Vaping Use: Never Used service: No Sexual orientation: Straight/Heterosexual Physical Exam Vital Signs: Last Vital Signs Pulse 111 H 07/02/24 09:27 Pulse Ox 97 07/02/24 09:27 Oxygen Delivery Method Room Air 07/02/24 09:27 BMI result Body Mass Index 30.2 Const General: comfortable; No acute distress Orientation/consciousness: patient oriented x3 Eyes General: appearance normal, both eyes and all related structures Visual Rosa: normal visual rosa by confrontation Neck Neck: Yes supple and Yes no JVD Resp Effort & Inspection: normal respiratory effort and respiratory effort not decreased Auscultation: rhonchi Cardio Palpation: no palpable S3 and no palpable S4 Heart sounds: no rubs GI Inspection: Yes normal to inspection Palpation (GI): Soft to palpation Percussion: Yes normal to percussion Auscultation: normal bowel sounds General: Yes no CVA tenderness Back/Spine/Pelvis Back: no CVA tenderness Skin General skin exam: no petechiae and no purpura Neuro General: patient oriented x3 and no focal motor deficits Extrem General: No clubbing and No edema Results Reviewed Nephrology Results: Hgb 11.1 g/dl (12.0-16.0) L 04/18/24 WBC 16.7 X10*3/uL (4.8-10.8) H 04/18/24 Plt Count 380 X10*3/uL (160-400) 04/18/24 Sodium 140 mmol/L (135-145) 04/20/24 Potassium 3.9 mmol/L (3.3-5.1) 04/20/24 Chloride 105 mmol/L (96-108) 04/20/24 Carbon Dioxide 24 mmol/L (22-29) 04/20/24 BUN 27 mg/dL (9-16) H 04/20/24 Creatinine 0.88 mg/dL (0.5-1.4) 04/20/24 Calcium 9.6 mg/dL (8.4-10.2) 04/20/24 Urine Protein Negative mg/dL (Neg-Trace) 04/16/24 Renal US 01/11/24 Assessment & Plan Assessment & Plan (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 The polyuria is under control while she is on amiloride. Renal function has been stable as well. She is clearly at risk for ongoing in renal injury from lithium however it seems like this might be the only option to treat her bipolar illness. 24 hour urine collection showed a volume of 4600 and urine osmolarity of 220 risks and benefits of going back on lithium was explained and she is back on [place] since May 2023 Watch renal function and UO while on [place] She should continue with the low-sodium diet as well. Keep AMiloride at 10 mg QD Stay on low salt diet Given the h/o renal stones , would not add Calcium tabs Shall follow levels The bump in BUN is most likely due to poor p.o. intake. Hemoglobin has increased from 13.3 up to 14.1 most likely due to hemoconcentration I have encouraged her to increase fluid intake. Serum creatinine stable at 1.06. Clinically volume status appears stable. She will require a 24 urine collection to quantify urine output and based on this we can adjust the p.o. fluid intake. 12/11/23 SACHI due to hypoperfusion in a setting of hyperglycemia REcheck labs today ; Increase PO fluids ; Optimize blood sugar and follow up with PCP 01/02/24 Renal function is stable ; Keep on weekly IV fluids ; HAs polyuria - she is on [place] 450 mg BID Currently on Amiloride;Stay on low Sodium diet ;IF polyuria presists, may need to lower or stop [place] 05/19/24; Advised to go to ER due to dizziness; Needs IVF Q weekly ;next dose on 06/04/24 07/02/24 From a renal stand point, she is doing better Creatinine is stable Not on [place] any more Encouraged to stay on low salt diet and keep up with PO hydration Keep Amiloride No changes were made today Orders: Orders Basic Metabolic Panel 4 Months N18.9 - Chronic kidney disease, unspecified Coding Level of Care Code Est Pt Level 4 (20970) Diagnoses Nephrogenic diabetes insipidus N25.1 CKD (chronic kidney disease) N18.9
--- OUTSIDE RECORDS SUMMARY | 2024-07-02 09:40 | XMS_ITS | Data Portability ---
Author Organization [place] - [facility] Address [address] [place] [id number] Assessment Encounter Date Assessment Date Assessment LastModified [...] recorded. Lab culture, urine - [facility] 2018 019 [place] [facility], [address] [place], [address], 9 10:09:39 CBC w/ auto diff 2018 019 [place] [facility], [address] [place], [address], 9 01:55:55 urinalysis, dipstick 2018 019 [facility] [address] [place], [address], 9 13:13:26 BMP + ionized calcium, serum or plasma 2018 019 [facility], [address] [place], [address], 9 13:13:26 Referral None recorded. Procedures None recorded. Surgeries None recorded. Imaging None recorded. Medication Orders None recorded. Patient TargetsNo targets recorded. Patient Instructions Encounter Date Encounter Id Patient Instructions Last Modified By Organization Details Last Modified Time 02/03/2019 [id number] YOU WERE SEEN FO R FLANK PAIN [...] MANAGEMENT Thank you for your visit with [facility] today. We cannot always find the exact cause of your symptoms during your initial visit. Please follow up with your primary care provider or specialist as needed to be rechecked or seek medical attention if your symptoms do not go away or get worse. If you develop any new or worsening symptoms and need after hours care, please go to nearest ER and/or call 911. If you have additional concerns or develop a change in your condition between 8am-10pm, please call [facility] at [phone] to help navigate your care. Renal Colic [...] extra Tylenol/Acetaminop hen if you are taking Viola/Vicodin/Perc ocet. Depending on the location of your [...] in your condition between 8am-10pm, please call [facility] at [phone] to help navigate your care. [email or web address] Not available 02/03/2019 13:14:24 Reason for Referral None Reported. Results Created Date Observation Date Name Description Value Unit Range Abnormal Flag Note LastModifiedBy Organization Detail LastModifiedTime 02/04/20 19 02/03/2019 BMP + ioniz ed calci um, serum or plasm a Na 143 mmol/ L 138-14 6 Not Available [facility] - [address] [place], [address], 02/03/2019 12:56:51 02/04/2002/03/2019 BMP + ioniz ed calci um, serum or plasm a K 3.7 mmol/ L 3.5-4. 9 Not Available [facility] - Home [address] [place], [address], 02/03/2019 12:56:51 02/04/2002/03/2019 BMP + ioniz ed calci um, serum or plasm a cL 108 mmol/ L 98-109 Not Available [facility] - Home [address] [place], [address], 02/03/2019 12:56:51 02/04/2002/03/2019 BMP + ioniz ed calci um, serum or plasm a ica 1.30 mmol/ L 1.12-1 .32 Not Available [facility] - Home [address] [place], [address], 02/03/2019 12:56:51 02/04/2002/03/2019 BMP + ioniz ed calci um, serum or plasm a TCO2 22 mmol/ L 24-29 Not Available [facility] - Home [address] [place], [address], 02/03/2019 12:56:51 02/04/2002/03/2019 BMP + ioniz ed calci um, serum or plasm a glu 99 mg/dL 70-105 Not Available [facility] - Home [address] [place], [address], 02/03/2019 12:56:51 02/04/2002/03/2019 BMP + ioniz ed calci um, serum or plasm a BUN 18 mg/dL 8-26 Not Available [facility] - Home [address] [place], [address], 02/03/2019 12:56:51 02/04/2002/03/2019 BMP + ioniz ed calci um, serum or plasm a crea 0.9 mg/dL .6-1.3 Not Available [facility] - Home [address] [place], [address], 02/03/2019 12:56:51 02/04/2002/03/2019 BMP + ioniz ed calci um, serum or plasm a HCT 38 %_pcv 38-51 Not Available [facility] - Home [address] [place], [address], 02/03/2019 12:56:51 02/04/2002/03/2019 BMP + ioniz ed calci um, serum or plasm a Hb 12.9 g/dL 12-17 Not Available [facility] - Home [address] [place], [address], 02/03/2019 12:56:51 02/04/2002/03/2019 BMP + ioniz ed calci um, serum or plasm a angap 17 mmol/ L 10-20 Not Available [facility] - [place] [address] [place], [address], 02/03/2019 12:56:51 02/04/2002/03/2019 urina lysis , dipst ick Appearance clear Not Available Spr - H [place]me [address] [place], [address], 02/03/2019 12:44:42 02/04/2002/03/2019 urina lysis , dipst ick Color light yellow Not Available Spr - Home [address] [place], [address], 02/03/2019 12:44:42 02/04/2002/03/2019 urina lysis , dipst ick Glucose negati ve Not Available Spr - Home [address] [place], [address], 02/03/2019 12:44:42 02/04/2002/03/2019 urina lysis , dipst ick Bilirubin negati ve Not Available [facility] - Home [address] [place], [address], 02/03/2019 12:44:42 02/04/2002/03/2019 urina lysis , dipst ick Ketones NEG Not Available [facility] - Home [address] [place], [address], 02/03/2019 12:44:42 02/04/2002/03/2019 urina lysis , dipst ick Sp. [place] 1.010 Not Available Spr - Home [address] [place], [address], 02/03/2019 12:44:42 02/04/2002/03/2019 urina lysis , dipst ick Blood NEG Not Available Spr - Home [address] [place], [address], 02/03/2019 12:44:42 02/04/2002/03/2019 urina lysis , dipst ick pH 6.0 Not Available Spr - Home [address] [place], [address], 02/03/2019 12:44:42 02/04/20 19 02/03/2019 urina lysis , dipst ick Protein negati ve Not Available Spr - Home [address] [place], [address], 02/03/2019 12:44:42 02/04/20 19 02/03/2019 urina lysis , dipst ick Urobilirubin negati ve Not Available Spr - Home [address] [place], [address], 02/03/2019 12:44:42 02/04/2002/03/2019 urina lysis , dipst ick Nitrites NEG Not Available Spr - Tal e [address] [place], [address], 02/03/2019 12:44:42 02/04/2002/03/2019 urina lysis , dipst ick Leukocytes ++ Not Available Spr - H ome [address] [place], [address], 02/03/2019 12:44:42 02/04/2002/04/2019 CBC w/ auto diff WBC 7.7 K/mm3 (4.0-1 1.0) Not Available [facility] [address] [place], [address], 02/04/2019 01:55:54 02/04/2002/04/2019 CBC w/ auto diff RBC 5.29 M/mm3 (4.20- 5.40) Not Available [facility] [address] [place], [address], 02/04/2019 01:55:54 02/04/2002/04/2019 CBC w/ auto diff HGB 11.0 gm/dL (11.7- 15.5) low Not Available [facility] [address] [place], [address], 02/04/2019 01:55:54 02/04/2002/04/2019 CBC w/ auto diff HCT 40.6 % (35.7- 45.8) Not Available [facility] [address] [place], [address], 02/04/2019 01:55:54 02/04/2002/04/2019 CBC w/ auto diff MCV 76.7 fL (80.0- 100.0) low Not Available [facility] [address] [place], [address], 02/04/2019 01:55:54 02/04/2002/04/2019 CBC w/ auto diff MCH 20.8 pg (27.0- 34.0) low Not Available [facility] [address] [place], [address], 02/04/2019 01:55:54 02/04/2002/04/2019 CBC w/ auto diff MCHC 27.1 g/dL (33.0- 37.0) low Not Available [facility] [address] [place], [address], 02/04/2019 01:55:54 02/04/2002/04/2019 CBC w/ auto diff plt 306 K/mm3 (150-4 60) Not Available [facility] [address] [place], [address], 02/04/2019 01:55:54 02/04/2002/04/2019 CBC w/ auto diff RDW-SD 51.2 fL (<47.0 ) high Not Available [facility] [address] [place], [address], 02/04/2019 01:55:54 02/04/2002/04/2019 CBC w/ auto diff MPV 12.1 fL (9.4-1 2.4) Not Available [facility] [address] [place], [address], 02/04/2019 01:55:54 02/04/2002/04/2019 CBC w/ auto diff automated NRBC 0.0 #/100 _WBC' s Not Available [facility] [address] [place], [address], 02/04/2019 01:55:54 02/04/2002/04/2019 CBC w/ auto diff abs. NRBC 0.0 K/mm3 Not Available [facility] [address] [place], [address], 02/04/2019 01:55:54 02/04/2002/04/2019 CBC w/ auto diff neut # 4.4 K/mm3 (1.3-7 .0) Not [facility] [address] [place], [address], 02/04/2019 01:55:54 02/04/2002/04/2019 CBC w/ auto diff lymph # 2.1 K/mm3 (0.8-3 .1) Not Available [facility] [address] [place], [address], 02/04/2019 01:55:54 02/04/2002/04/2019 CBC w/ auto diff mono# 0.8 K/mm3 (0.4-0 .9) Not Available [facility] [address] [place], [address], 02/04/2019 01:55:54 02/04/2002/04/2019 CBC w/ auto diff eo # 0.3 K/mm3 (0.0-0 .4) Not Available [facility] [address] [place], [address], 02/04/2019 01:55:54 02/04/2002/04/2019 CBC w/ auto diff baso # 0.1 K/mm3 (0.0-0 .1) Not Available [facility] [address] [place], [address], 02/04/2019 01:55:54 02/04/2002/04/2019 CBC w/ auto diff abs. imm gran 0.0 K/mm3 Not Available [facility] [address] [place], [address], 02/04/2019 01:55:54 02/04/2002/04/2019 CBC w/ auto diff neut 56.9 % (44-76 ) Not Available [facility] [address] [place], [address], 02/04/2019 01:55:54 02/04/2002/04/2019 CBC w/ auto diff lymph 27.4 % (15-43 ) Not Available [facility] [address] [place], [address], 02/04/2019 01:55:54 02/04/2002/04/2019 CBC w/ auto diff monocyte 9.7 % (4.5-1 0.5) Not Available [facility] [address] [place], [address], 02/04/2019 01:55:54 02/04/2002/04/2019 CBC w/ auto diff eo 4.1 % (0-6) Not Available [facility] [address] [place], [address], 02/04/2019 01:55:54 02/04/2002/04/2019 CBC w/ auto diff baso 1.6 % (0-2) Not Available [facility] [address] [place], [address], 02/04/2019 01:55:54 02/04/2002/04/2019 CBC w/ auto diff imm gran 0.3 % Not Available [facility] [address] [place], [address], 02/04/2019 01:55:54 02/04/2002/04/2019 cultu re, urine specimen description URINE Not Available [facility] [address] [place], [address], 02/05/2019 10:09:39 02/04/20 19 02/04/2019 cultu re, urine special requests NONE Not Available [facility] [address] [place], [address], 02/05/2019 10:09:39 02/04/20 19 02/05/2019 cultu re, urine culture Mixed bacter ial merna, indica tive of urogen ital contam inatio n. Not Available [facility] [address] [place], [address], 02/05/2019 10:09:39 02/04/20 19 02/05/2019 cultu re, urine report status FINAL 2018 Not Available [facility] [address] [place], [address], 02/05/2019 10:09:39 Result Notes None recorded. Procedures Surgical History Date Name Laterality Status Provider Name and Address Organization Details Recorded Time 02/04/20 19 Venipuncture - DH completed ROMY SHOOK [address] [place], [address], [place] [facility] 02/05/2019 23:27:28 Imaging Results None recorded. Procedure Notes None recorded. Medical Equipment None Reported. Allergies Allergen ID Allergen Name Allergen Category Reaction Reaction Severity Criticality Documentation Date Start Date Code Code System Note Provider Name and Address Organization Details Recorded Time 69633 Demerol medicatio n Not available Not available Not available 02/03/2019 11904 1 RxNorm ROMY SHOOK [address] [place], [address], [place] [facility] 9 12:37:19 21835 morphine medicatio n Not available Not available Not available 02/03/2019 7052 RxNorm ROMY SHOOK [address] [place], [address], [place] [facility] 9 12:37:29 82602 Reglan medicatio n Not available Not available Not available 02/03/2019 9230 RxNorm ROMY SHOOK [address] [place], [address], [place] [facility] 9 12:37:40 99176 Flonase medicatio n Not available Not available Not available 02/03/2019 04188 RxNorm ROMY SHOOK [address], [place], [address], [place] [facility] 9 [...] /min 108 mm[Hg] 76 mm[Hg] Not Available [facility] 9 12:43:08 Social History Question Answer Notes LastModified by Organizat ion Details LastModified Time Tobacco Smoking Status Never Smoker ROMY SHOOK [address], [place], [address], [place] [facility] 02/03/2019 12:40:20 How Many Days In The Past Year Have You Had A Heavy Drinking Consumption (4+ Female, 5+ Male)? 0 Information not available 02/03/2019 Marital Status Informatio n not available 02/03/2019 What Was The Date Of Your Most Recent Tobacco Screening? 02/03/2019 Information not available 02/04/2019 Sex: Unknown Functional Status None recorded. Mental Status None recorded. Family History Relationship Description Onset Age of this Age Resolved Age Notes LastModified by Organization Details LastModified Time Father Diabetes mellitus [email or web address] Not available 2018 12:40:53 Medical History Condition Response Diabetes Y Coronary Artery Disease N Cancer N Stroke Y COPD N Depression Y Asthma Y High Cholesterol Y Pulmonary Embolism N Hypertension N Kidney Disease N Gynecological HistoryNo gynecological history recorded. Obstetrics History GPAL:G 0 P 0 0 0 0 Past Encounters Encounter ID Performer Location Encounter Start Date Encounter Closed Date Diagnosis/Indication Diagnosis SNOMED-CT Code Diagnosis ICD10 Code Diagnosis Note [id number] ROMY SHOOK [facility] [place] - [address] [address] 02/03/2019 12:35:06 02/05/2019 11:44:06 Right flank pain 882858808 R10.9 Acute urin dunia tract infection 108717246 N39.0 History of calculus of kidney 162765743 Z87.442 Primary im mune deficiency disorder 97324694 D84.9 Health Concerns Section Related Observation LastModified by Organization Detai ls LastModified Time None Recorded Concern Status LastModified by Organization Details LastModified Time None Recorded Advance Directives Directive None Recorded Payers Encounter Date Sequence Insurance Name Policy Number Policy Brambila Covered Member ID Brambila Member ID Guarantor Name 02/03/2019 1 [place] [facility] [id number] Meredith Garcia [id number] Meredith Garcia 02/03/2019 2 MED[place] B-[place] [facility] [email or web address] Meredith Garcia [id number] Meredith Arreguins Notes Date Note Type Note Provider Name [...] fever; primary immunodeficiency; migraines ROMY SHOOK [address], [place], [address], [place] [facility] 02/05/2019 23:27:34 OBGyn Episode No OBEpisode recorded.
--- OUTSIDE RECORDS SUMMARY | 2024-07-02 09:41 | XMS_ITS | Data Portability ---
Author Organization [place] - [facility], Allergy Address [address] [address] Assessment Encounter Date Assessment Date Assessment LastModified [...] require intervention. [email or web address] Not available 10/01/2023 10:18:27 05/23/2024 05/23/2024 The patient comp lains of intermittent right-sided periauricular discomfort. Physical exam reveals no identifiable source of these symptoms involving the auricle, external auditory canal, or tympanic membrane. Audiometric testing and tympanometry are similarly unrevealing. Furthermore, examination was positive for crepitus and tenderness of the bilateral jaw joint and henrietta-TMJ musculature. The patient's periauricular discomfort is most likely consistent with intermittent inflammation of the jaw joint or spasm of the surrounding musculature. This is likely exacerbated by the missing teeth constant jaw motion . I recommended the patient use light massage, warm compresses and anti-inflammatories for symptomatic management. Stressed chewing evenly on both sides of the mouth to keep from overworking the jaw joint. Use soft food diet as needed. Jaw Joint Program information sheet was shared. If this treatment plan is ineffective, recommend follow up with their dentist.??Referral to physical therapist who specializes in TMJ disorders was provided. [email or web address] Not available 05/23/2024 15:10:39 Plan of Treatment Reminders Order Date Submit Date Provider Last Modified By Organization Details Last Modified Time Details Appointments None recorded . Lab None recorded . Referral physical therapis t referral 2024 025 [email or web address] [facility], [address], [address], [place], [address], 12:41:45 Procedures None recorded . Surgeries None recorded . Imaging CT, sinuses, w/o contrast 2023 024 becca Ents [facility], [address] [place] [address], [address], 10:39:49 Medication Orders budesoni de 0.5 mg/2 mL suspensi on for nebuliza tion 2023 024 [id number], [address] [facility], [place], [address], 10:37:41 Patient TargetsNo targets recorded. Patient InstructionsNo instructions recorded. Reason for Referral Physical Therapist Referral for Pain of left temporomandibular joint Referring Physician: Juanita Vo, Otolaryngology, Encounter Date: 05/23/2024 Results Created Date Observation Date Name Description Value Unit Range Abnormal Flag Note LastModifiedBy Organization Detail LastModifiedTime 10/01/19 CT, sinus es, w/o contr ast No observ ation record ed. evelyn Ents Of [address], [address], 10/01/2023 10:36:08 10/17/19 24 10/01/2023 CT, sinus es, w/o contr ast No observ ation record ed. [email or web address] Of [address], [address], 10/17/2023 12:45:07 01/02/20 24 05/28/2019 imagi ng/di [...] Organization Details Recorded Time Nasal congestio n 16230405 Active 2019 Nasal congestio n; Note: Date Diagnosed : 05/26/2019 1:39 PM (R09.81) Not Available [facility] 4 02:47:40 Immunodef iciency disorder 718084752 Active 2019 Immunodef iciency, unspecifi ed; Note: Changed from D84 to D84.9 ( 11:21 AM) , Date Diagnosed : 05/26/2019 1:39 PM (D84) Not Available [facility] 4 02:47:43 Sensorine ural hearing loss 89845855 Active 2020 Sensorine ural hearing loss, unilatera l, left ear, with unrestric dariana hearing on the contralat eral side; Note: Date Diagnosed : 01/20/2021 1:26 PM (H90.42) Not Available [facility] 4 02:47:40 Chronic sinusitis 42198761 Active 2020 Sinusitis (chronic) NOS; Note: Date Diagnosed : 1 2:03 PM (J32.9) Not Available [facility] 4 02:47:42 Posterior rhinorrhe a 29764008 Active 2019 Postnasal drip; Note: Date Diagnosed : 05/26/2019 2:03 PM (R09.82) Not Available [facility] 4 02:47:46 Abnormal auditory perceptio n 79489663 Active 2021 Other abnormal auditory perceptio ns, left ear; Note: Date Diagnosed : 10/12/2021 11:06 AM (H93.292) Not Available [facility] 4 02:47:41 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; Note: Date Diagnosed : 05/26/2019 2:51 PM (D80.1) Not Available [facility] 4 02:47:43 Headache 75366671 Active 2019 Headache; Note: Date Diagnosed : 05/26/2019 1:39 PM (R51) Headach e, unspecifi ed; Note: Changed from R51 to R51.9 (04/27/20 21 3:39 PM) , Date Diagnosed : 05/26/2019 1:39 PM (R51) Not Available [facility] 4 02:47:47 Chronic cough 49196557 Active 2023 LIDYA MINOR MD [address] [place] [address], [place], [address] , [facility] - [facility] 4 10:16:49 Perennial allergic rhinitis 259918061 Active 2023 LIDYA MINOR MD [address] [facility] [place],[facility], [place], [address] , [place] [facility] 4 10:17:00 Hyperimmu noglobuli n E syndrome 52429824 Active 2023 LIDYA MINOR MD [address] [facility] [place] [address], [place], [address] , [place] [facility] 4 10:17:16 Moderate persisten t asthma 338951935 Active 2023 LIDYA MINOR MD [address] [facility],[place] [address], [place], [address] , [place] [facility] 4 10:17:24 Polyp of nasal cavity 798064869 Active 2023 LIDYA MINOR MD [address] [facility],[place] [address], [place], [address] , [place] [facility] 4 10:36:51 Pain of left temporoma ndibular joint [id number] 767897 Active 2024 JUANITA VO PA-C [address] [facility],[place] [address], [place], [address] , [place] - [facility] 5 13:37:29 Problem Notes None recorded. Procedures Surgical History Date Name Laterality Status Provider Name and Address Organization Details Recorded Time Air & Speech Audio with Tymps (35494, 95634 & 63844) completed TAWANNA WEAVER [address] [facility] [address] [facility] [place],[facility], [place], [address], [place] [facility] 05/23/2024 13:49:00 JMSNasal/Sinus Endoscopy completed LIDYA URIBE MD [address] [facility] [place] [address], [place], [address], [place] [facility] 10/01/2023 10:35:41 functional endoscopic sinus surgery completed LIDYA URIBE MD [address], [address], [place] [facility] 09/30/2023 14:24:57 simple extraction of tooth completed LIDYA URIBE MD [address], [address], [place] [facility] 09/30/2023 14:25:15 dilation and curettage completed LIDYA URIBE MD [address] [place] [address], [address], [place] [facility] 09/30/2023 14:26:03 arthroscopy of knee completed LIDYA URIBE MD [address] [place] [address], [address], [place] [facility] 09/30/2023 14:26:15 Imaging Results Imaging Date Name Status [facility]Modified by [facility] Details LastModified Time 10/01/2023 CT, sinuses, w/o contrast completed evelyn Ents [address], [address], 10/01/2023 10:36:08 10/01/2023 CT, sinuses, w/o contrast completed evelyn [facility] [address], [address], 10/17/2023 12:45:07 05/28/2019 imaging/diagno stic result completed Information not available 01/02/2024 00:53:57 10/12/2021 imaging/diagno stic result completed Information not available 01/02/2024 00:54:14 02/05/2021 imaging/diagno stic result completed Information not available 01/02/2024 00:54:22 02/08/2021 imaging/diagno stic result completed Information not available 01/02/2024 00:54:36 02/18/2021 imaging/diagno stic result completed Information not available 01/02/2024 00:54:37 04/27/2021 imaging/diagno stic result completed Information not available 01/02/2024 00:55:01 10/12/2021 audiogram completed Information not available 01/02/2024 00:55:31 Procedure Notes None recorded. Medical Equipment None Reported. Allergies Allergen ID Allergen Name Allergen Category Reaction Reaction Severity Criticality Documentation Date Start Date Code Code System Note Provider Name and Address Organization Details Recorded Time [id number] Flonase medicatio n other Not available Not available 09/25/2023 51985 RxNorm React ion: unkno wn, unspe cifie d;; Not Available [facility] 4 01:19:32 745854 Demerol medicatio n Not available Not available Not available 10/01/2023 61433 1 RxNorm Serge murphy [place] - [facility] 4 10:10:31 525404 morphine medicatio n Not available Not available Not available 10/01/2023 7052 RxNorm Serge murphy [place] - [facility] 4 10:10:40 Medications Name Sig Start Date Stop Date Status Note LastModified by Organization Details LastModified Time cyclobenz aprine 10 mg tablet TAKE ONE TABLET BY MOUTH DAILY AT BEDTIME NEEDED FOR MUSCLE SPASMS active Not Available Not Available No t Available amoxicill in 500 mg capsule TAKE ONE CAPSULE BY MOUTH THREE TIMES A DAY FOR 5 DAYS 05/23 completed Not Available Not Available Not Available atorvasta tin 40 mg tablet TAKE ONE TABLET BY MOUTH ONCE DAILY. DISCONTI NUE ATORVAST STIN 20MG active Not Available Not Available No t Available metformin 500 mg tablet TAKE TWO TABLETS BY MOUTH TWICE A DAY active Not Available Not Available No t Available oxcarbaze pine 150 mg tablet TAKE TWO TABLETS BY MOUTH EVERY MORNING AND TAKE ONE TABLET BY MOUTH DAILY AT [...] mg tablet 04/26 completed Medicati on ID: [id number] D uration Value: 30 Brand Name: gabapent in Send Method: E-Prescr ibed Sub s Allowed: subs OK Speci al Instruct ion: TAKE 1/2 TABLET (300MG TOTAL) BY MOUTH EVERY MORNING AND 2 TABLETS (12 00MG TOTAL) BY MOUTH AT BEDTIME. START ON 02/10/19 Medicati onGeneri cName: gabapent in Not Available Not Available Not Available doxycycli ne hyclate 100 mg capsule TAKE 1 TABLET BY MOUTH TWICE A DAY FOR 14 DAYS active Not Available Not Available No t Available atorvasta tin 20 mg tablet TAKE ONE TABLET BY MOUTH EVERY DAY active Not Available Not Available No t Available lamotrigi ne 200 mg tablet TAKE ONE TABLET BY MOUTH EVERY DAY 05/23 completed Not Available Not Available Not Available venlafaxi ne 75 mg tablet TAKE ONE TABLET BY MOUTH EVERY EVENING active Not Available Not Available No t Available loperamid e 2 mg capsule TAKE TWO CAPSULES BY MOUTH AFTER EACH EPISODE OF LOOSE STOOL. NO MORE THAN 8 CAPSULES 16MG) IN 24 HOURS active Not Available Not Available No t Available cetirizin e 10 mg tablet TAKE ONE TABLET BY MOUTH TWO TIMES A DAY active Not Available Not Available No t Available atorvasta tin 10 mg tablet active Medicati on ID: [id number] B rand Name: atorvast atin Sen d [...] CAPSULE BY MOUTH THREE TIMES A DAY 05/23 completed Not Available Not Available Not Available ondansetr on HCl 8 mg tablet active Medicati on ID: [id number] B rand Name: ondanset sharon HCl Send Method: E-Prescr ibed Sub s Allowed: subs OK Medic ationGen ericName : ondanset sharon HCl Not Available Not Available Not Available sucralfat e 1 gram tablet TAKE ONE TABLET BY MOUTH TWICE A DAY 05/23 completed Not Available Not Available Not Available venlafaxi ne 25 mg tablet TAKE TWO TABLETS BY MOUTH EVERY MORNING 05/23 completed Not Available Not Available Not Available ondansetr on HCl 4 mg tablet TAKE ONE TABLET BY MOUTH EVERY 6 TO 8 HOURS NEEDED active Not Available Not Available No t Available prednison e 20 mg tablet TAKE ONE TABLET BY MOUTH EVERY DAY FOR FMF ATTACKS active Not Available Not Available No t Available rizatript an 10 mg tablet TAKE ONE TABLET BY MOUTH NEEDED FOR MIGRAINE MAY REPEAT IN 2 HOURS IF UNRESOLV ED, DO NOT EXCEED 30MG IN 24 HOURS active Not Available Not Available No t Available lidocaine 4 % topical cream active Not Available Not Available Not Available lithium carbonate ER 300 mg tablet,ex tended release TAKE ONE TABLET BY MOUTH TWICE A DAY 05/23 completed Not Available Not Available Not Available lithium carbonate 150 mg capsule TAKE ONE CAPSULE BY MOUTH EVERY DAY 05/23 completed Not Available Not Available Not Available hydroxyzi ne HCl 50 mg tablet TAKE ONE TABLET BY MOUTH EVERY DAY NEEDED active Not Available Not Available No t Available oxcarbaze pine 300 mg tablet TAKE ONE TABLET BY MOUTH TWICE A DAY active Not Available Not Available No t Available sulfameth oxazole 800 mg-trimet hoprim 160 mg tablet TAKE ONE TABLET BY MOUTH TWICE A DAY FOR 7 DAYS active Not Available Not Available No [...] MOUTH EVERY 8 HOURS NEEDED FOR PAIN 05/23 completed Not Available Not Available Not Available butalbita l-acetami nophen-ca ffeine 50 mg-325 mg-40 mg tablet TAKE ONE TABLET BY MOUTH EVERY 6 HOURS NEEDED FOR HEADACHE S FOR UP TO 5 DAYS active Not Available Not Available No t Available lithium carbonate ER 450 mg tablet,ex tended release TAKE 1 TABLET BY MOUTH ONCE A DAY 05/23 completed Not Available Not Available Not Available lamotrigi ne 25 mg tablet TAKE TWO TABLETS BY MOUTH EVERY MORNING active Not Available Not Available No t Available amiloride 5 mg tablet TAKE TWO TABLETS BY MOUTH EVERY DAY active Not Available Not Available No t Available hydromorp shavon 2 mg tablet TAKE ONE TABLET BY MOUTH EVERY 8 HOURS NEEDED FOR KIDNEY STONE PAIN active Not Available Not Available No t Available magnesium oxide 400 mg (241.3 mg magnesium ) tablet TAKE ONE TABLET BY MOUTH EVERY DAY active Not Available Not Available No t Available meclizine 25 mg tablet TAKE ONE TABLET BY MOUTH THREE TIMES A DAY NEEDED FOR DIZZINES S active Not Available Not Available No t Available doxycycli ne monohydra te 100 mg capsule TAKE ONE CAPSULE BY MOUTH TWICE A DAY FOR 14 DAYS. 09/30 completed Not Available Not Available Not Available levothyro xine 50 mcg tablet TAKE ONE TABLET BY MOUTH EVERY DAY SUNDAY TO SUNDAY AND 1.5 TABLETS ON SUNDAY active Not Available Not Available No t Available nortripty line 10 mg capsule TAKE ONE CAPSULE BY MOUTH DAILY AT BEDTIME active Not Available Not Available No t Available esomepraz ole magnesium 40 mg capsule,d elayed release TAKE ONE CAPSULE BY MOUTH EVERY DAY active Not Available Not Available No t Available prednison e 50 mg tablet TAKE ONE TABLET BY MOUTH EVERY MORNING FOR 5 DAYS. 05/23 completed Not Available Not Available Not Available Phospha Neutral 250 mg tablet TAKE 1 TABLET BY MOUTH TWICE A DAY 05/23 completed Not Available Not Available Not Available benztropi ne 1 mg tablet 05/23 completed Medicati on ID: [id number] D uration Value: 30 Brand Name: benztrop ine Send Method: E-Prescr ibed Sub s Allowed: subs JENNIFER Mays al Instruct ion: TAKE 1/2 TABLET BY MOUTH IN THE MORNING AND 1 TABLET BY MOUTH AT BEDTI PR Medic ationGen ericName : benztrop ine Not Available Not Available Not Available venlafaxi ne 50 mg tablet TAKE ONE AND ONE-HALF TABLETS BY MOUTH DAILY AT BEDTIME 05/23 completed Not Available Not Available Not Available docusate sodium 100 mg capsule TAKE ONE CAPSULE BY MOUTH TWO TIMES A DAY NEEDED FOR CONSTIPA TION active Not Available Not Available No t Available gabapenti n 300 mg capsule TAKE ONE CAPSULE BY MOUTH TWICE A DAY active Not Available Not Available No t Available omeprazol e 20 mg capsule,d elayed release 09/30 completed Medicati on ID: [id number] D uration Value: 90 Brand Name: omeprazo le Send Method: E-Prescr ibed Sub s Allowed: subs OK Speci al Instruct ion: TAKE ONE CAPSULE BY MOUTH TWICE A DAY Medi cationGe nericNam e: omeprazo le Medic ation ID: [id number] D uration Value: 90 Brand Name: omeprazo [...] mg tablet 04/26 completed Medicati on ID: [id number] D uration Value: 30 Brand Name: folic acid Sen d Method: E-Prescr ibed Sub s Allowed: subs OK Speci al Instruct ion: TAKE FOUR TABLETS BY MOUTH EVERY DAY [facility] InternationalDarian nericNam e: folic acid Not Available Not Available Not Available monteluka st 10 mg tablet TAKE ONE TABLET BY MOUTH DAILY AT NIGHT active Not Available Not Available No t Available hydroxyzi ne HCl 25 mg tablet TAKE ONE TO TWO TABLETS BY MOUTH UP TO THREE TIMES A DAY NEEDED FOR FOR ANXIETY OR INSOMNIA active Not Available Not Available No t Available azelastin e 137 mcg (0.1 %) nasal spray US 1 SPRAY INTRANAS ALLY TWO TIMES A DAY 05/23 completed Not Available Not Available Not Available epinephri ne 0.3 mg/0.3 mL injection , auto-inje ctor INJECT ONE PEN DIRECTED FOR ANAPHYLA XIS AND CALL 911 active Not Available Not Available No t Available levofloxa eliza 500 mg tablet TAKE ONE TABLET BY MOUTH EVERY DAY FOR 7 DAYS 09/30 completed Not Available Not Available Not Available colchicin e 0.6 mg tablet TAKE THREE TABLETS BY MOUTH EVERY DAY active Not Available Not Available No t Available norethind ashley (contrace ptive) 0.35 mg tablet TAKE ONE TABLET BY MOUTH EVERY DAY active Not Available Not Available No t Available hydroxyzi ne HCl 10 mg tablet TAKE FOUR TABLETS BY MOUTH DAILY AT BEDTIME active Not Available Not Available No t Available ondansetr on 4 mg disintegr ating tablet PLACE 1 TABLET BY MOUTH EVERY 6 HOURS NEEDED FOR NAUSEA AND VOMITING active Not Available Not Available No t Available lithium carbonate 300 mg tablet TAKE ONE TABLET BY MOUTH TWICE A DAY 09/30 completed Not Available Not Available Not Available metformin ER 500 mg tablet,ex tended release 24 hr 2019 active Medicati on ID: [id number] D uration Value: 30 Brand Name: metformi [...] mg tablet 2019 active Medicati on ID: [id number] D uration Value: 30 Brand Name: lisinopr il Send Method: E-Prescr ibed Sub s Allowed: subs OK Speci al Instruct ion: TAKE ONE TABLET BY MOUTH EVERY DAY Medi cationGe nericNam e: lisinopr il Not Available Not Available Not Available ipratropi um bromide 21 mcg (0.03 %) nasal spray 2 spray 04/26 completed Medicati on ID: [id number] [place] By Name: Jerome Sauer nd Name: ipratrop ium bromide Send Method: E-Prescr ibed Sub s Allowed: subs OK Medic ationGen ericName : ipratrop ium bromide Not Available Not Available Not Available Microlet Lancet active Not Available Not Available Not Available oxycodone 5 mg tablet active Not Available Not Available Not Available enoxapari n 40 mg/0.4 mL subcutane ous syringe INJECT 0.4ML 40MG) UNDER THE SKIN ONCE DAILY STARTING THE DAY AFTER SURGERY active Not Available Not Available No t Available insulin lispro (U-100) 100 unit/mL subcutane ous pen INJECT 15 MINUTES BEFORE MEAL 3 TIMES A DAY; IF GLUCOSE LEVELS 200-250: TAKE 2 UNITS; 251-300: TAKE 4 UNITS; 301-350: TAKE 6 UNITS; 351-400: active Not Available Not Available No t Available topiramat e 50 mg tablet TAKE ONE TABLET BY MOUTH EVERY MORNING AND TAKE THREE TABLETS BY MOUTH DAILY AT BEDTIME active Not Available Not Available No t Available nitrofura ntoin monohydra te/macroc rystals 100 mg capsule TAKE ONE CAPSULE BY MOUTH TWICE A DAY FOR UTI active Not Available Not Available No t Available BD Ultra-Fin e Mini Pen Needle 31 gauge x 3/16 USE WITH INSULIN LISPRO PENS THREE TIMES A DAY active Not Available Not Available No t Available doxycycli ne hyclate 100 mg tablet,de layed release TAKE ONE TABLET BY MOUTH TWICE A DAY FOR 5 DAYS 09/30 completed Not Available Not Available Not Available Januvia 100 mg tablet TAKE ONE TABLET BY MOUTH EVERY DAY 05/23 completed Not Available Not Available Not Available ferrous gluconate 324 mg (38 mg iron) tablet TAKE ONE TABLET BY MOUTH ONCE A DAY active Not Available Not Available No t Available lamotrigi ne ER 200 mg tablet,ex tended release 24 hr TAKE ONE TABLET BY MOUTH DAILY AT BEDTIME 05/23 completed Not Available Not Available Not Available GaviLyte- G 236 gram-22.7 4 gram-6.74 gram-5.86 gram oral solution TAKE 8OZ DIRECTED BY DOCTORS OFFICE active Not Available Not Available No t Available butalbita l-acetami nophen-ca ffeine 50 mg-300 mg-40 mg capsule TAKE 1 CAPSULE BY MOUTH ONCE DAILY NEEDED FOR SEVERE MIGRAINE . active Not Available Not Available No t Available Latuda 40 mg tablet 04/26 completed Medicati on ID: [id number] D uration Value: 30 Brand Name: Latuda S end Method: E-Prescr ibed Sub s Allowed: subs OK Speci al Instruct ion: TAKE 1 TABLET DAILY WITH FOOD. AT LEAST 350 CALORIES Medicat ionGener icName: Latuda Not Available Not Available Not Available melatonin 10 mg tablet TAKE ONE TABLET BY MOUTH EVERY DAY WITH DINNER active Not Available Not Available No t Available Combivent Respimat 20 mcg-100 mcg/actua tion solution for inhalatio n INHALE 1 INHALATI ON 4 TIMES DAILY active Not Available Not Available No t Available Contour Next Test Strips CHECK BLOOD GLUCOSE THREE TIMES A DAY AND NEEDED active Not Available Not Available No t Available potassium chloride ER 20 mEq tablet,ex tended release TAKE ONE TABLET BY MOUTH EVERY DAY active Not Available Not Available No t Available Jardiance 10 mg tablet TAKE ONE TABLET BY MOUTH EVERY MORNING 05/23 completed Not Available Not Available Not Available Trulicity 1.5 mg/0.5 mL subcutane ous pen injector INJECT 0.5ML SUBCUTAN EOUSLY EVERY WEEK, ROTATE INJECTIO N SITES active Not Available Not Available No t Available Trulicity 0.75 mg/0.5 mL subcutane ous pen injector INJECT 0.5ML UNDER THE SKIN EVERY WEEK. ROTATE INJECTIO N SITES. active Not Available Not Available No t Available Vraylar 4.5 mg capsule TAKE ONE CAPSULE BY MOUTH EVERY MORNING 05/23 completed Not Available Not Available Not Available Vraylar 3 mg capsule 04/26 completed Medicati on ID: [id number] D uration Value: 30 Brand Name: Vraylar Send Method: E-Prescr ibed Sub s Allowed: subs OK Speci al Instruct ion: TAKE ONE CAPSULE BY MOUTH EVERY DAY IN THE MORNING Medicati onGeneri cName: Vraylar Medicati on ID: [id number] D uration Value: 30 Brand Name: Vraylar Send Method: E-Prescr ibed Sub s Allowed: subs OK Speci al Instruct ion: TAKE ONE CAPSULE BY MOUTH EVERY DAY IN THE MORNING Medicati onGeneri cName: Vraylar Not Available Not Available Not Available Emgality Pen 120 mg/mL subcutane ous pen injector INJECT 1ML UNDER THE SKIN EVERY 28 DAYS active Not Available Not Available No t Available Trelegy Ellipta 200 mcg-62.5 mcg-25 mcg powder for inhalatio n INHALE 1 PUFF ONCE DAILY active Not Available Not Available No t Available Paxlovid 300 mg (150 mg x 2)-100 mg tablets in a dose pack TAKE 3 TABLETS BY MOUTH TWICE DAILY FOR 5 DAYS. 05/23 completed Not Available Not Available Not Available Xolair 300 mg/2 mL subcutane ous syringe active Not Available Not Available Not Available Vitals Date Recorded Body height Body mass index (BMI) Body weight Provider Name and Address Organization Details Last Updated DateTime 10/01/2023 162.56 cm 29 kg/m2 95164.11 g Serge [facility] 10/01/2023 10:14:43 Date Recorded Body height Body mass index (BMI) Body weight Provider Name and Address Organization Details Last Updated DateTime 05/23/2024 162.56 cm 29 kg/m2 33382.11 g Trish Montez [place] - [facility] 05/23/2024 13:23:27 Social History Question Answer Notes LastModified by Organizat ion Details LastModified Time Tobacco Smoking Status Never Smoker Serge murphy [place] - [facility] 10/01/2023 10:11:57 What Is Your Level Of Alcohol Consumption? None [email or web address] Information not available 10/01/2023 Do You Use Any Illicit Or Recreational Drugs? No [email or web address] Information not available 10/01/2023 Do You Or Have You Ever Used Any Other Forms Of Tobacco Or Nicotine? No [email or web address] Information not available 10/01/2023 Sex: Unknown Functional Status None recorded. Mental Status None recorded. Family History Nothing Reported. Medical History Condition Response Allergies/Hayfever N Heart Problems N Emphysema N Migraines N Thyroid Problems N Glaucoma N Depression Y COPD N Nasal or Sinus Problems N Anemia N Immune System Disorder N Anesthesia Complications N Heart Attack (ID) N Other Skin Condition N Diabetes Y [...] Note 631 LIDYA MINOR MD [facility] [address] [address] 10/01/2023 09:53:23 10/01/2023 10:39:48 Chronic cough [id number] R05.3 Posterior rhinorrhea [id number] R09.82 Perennial allergic rhinitis [id number] J30.89 Hypogammaglobulinemia 11 [id number] D80.1 Hyperimmun oglobulin E syndrome [id number] D82.4 Moderate p ersistent asthma [id number] J45.40 Chronic sinusitis 337101 00 J32.9 Polyp of nasal cavity 73 [id number] J33.0 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 There is evidence of prior sinus surgery with an adhesion on the right side. Bilateral diffuse maxillary sinus thickening noted. Suggest topical steroid irrigation s and follow-up in 3 months. No indication for surgical interventi on at the present time [id number] LIDYA MINOR MD [facility] [address] [address] 05/23/2024 13:20:39 05/23/2024 14:18:31 Pain of left temporomandibular joint [id number] M26.622 Right Ear:Normal hearing with excellent speech discrimina tion.Type A tympanogra m.Left Ear:Normal hearing with excellent speech discrimina tion.Type A tympanogra m. Health Concerns Section Related Observation LastModified by Organization Detai ls LastModified Time None Recorded Concern Status LastModified by Organization Details LastModified Time None Recorded Advance Directives Directive None Recorded Payers Encounter Date Sequence Insurance Name Policy Number Policy Brambila Covered Member ID Brambila Member ID Guarantor Name 10/01/2023 2 MEDICARE B-[place]: [facility] Meredith Leah Radha [id number] Meredith Lynn Radha 10/01/2023 1 BCBS-[place]:[facility] [id number] Pineda Garcia [id number] Meredith Lynn Radha 05/23/2024 2 MEDICARE [place]: [facility] Meredith Leah Radha [id number] Meredith Leah Radha 05/23/2024 1 BCBS-[place]:[facility] [id number] Pineda Garcia [id number] Meredith Lynn Garcia Notes Date Note Type Note Provider Name and Address Organization Details Recorded Time 4 text/html Hx of severe allergy, hypogammaglobulinemia and elevated IgE. Prior FESS-Presently on Xolair and IV IgG. Reports persistent sinus symptoms despite 4 courses of antibiotics over the last 6 months. She reports having an abnormal sinus x-ray. Avoids FP due to allergy with the scent. LIDYA URIBE MD [address] [place] [address], [place], [address], [facility] 10/01/2023 12:13:54 5 text/html 48 year old female presents for evaluation of ears. She reports right ear, right side of throat, and a gland in the right neck hurt for the past month. First started with a sensation and sound of fluid in the ear that persisted for 2 weeks. Then got a concussion 2 weeks ago and attributed head pain to that, but other concussion symptoms have resolved and the ear pain seems to be worsening. Fell from squatting position and hit the back of the head. Has been using Tylenol. The hearing has not changed acutely with onset of these symptoms and seems symmetric but seems down from baseline in general. Has turned television volume up. There has been no otorrhea from the ear. She has also had occipital head pain since the fall. There is no new tinnitus. History of TMJ. Edentulous with dentures, wears them for meals. There is no dysphagia, dyspnea, hemoptysis, fever, night sweats, nor unintentional weight loss . LIDYA URIBE MD [address] [place] [address], [place], [address], [facility] 05/23/2024 16:54:36 OBGyn Episode No OBEpisode recorded.
--- OUTSIDE RECORDS SUMMARY | 2024-07-02 09:41 | XMS_ITS | Clinical Summary ---
Author Organization [facility] Address [address] [place] [address] Care Team Providers Care Health And Wellness Advisor Name Role Phone Bernie Aquino FUEL STORAGE TECHNICIAN Primary Care Provider [phone] Allergies Active Allergy Reactions Criticality Noted Date Comments Amoxicillin-Pot Clavulanate Medium 07/01/2021 Other reaction(s): Other (see comments) makes sicker makes sicker Azithromycin Medium 07/01/2021 Other reaction(s): Other (see comments) Diarrhea Diarrhea Fluticasone Medium 05/13/2018 Other reaction(s): Headache New Skin Rash Low 11/08/2021 tegaderm Meperidine Nausea Only Medium 05/13/2018 Other reaction(s): Vomiting Metoclopramide Medium 05/16/2018 Other reaction(s): Dizziness, double vision Morphine Nausea And Vomiting,Nausea Only Medium 05/13/2018 Other Low 07/01/2021 Pt allergic to cat hair Medications Medication Sig Dispensed Refills Start Date End Date Status Immune Globulin, Human, (GAMMAGARD) 20 GM/200ML SOLN infusion Inject 26 % into the vein every 21 days. 0 05/11/2021 Active albuterol (PROVENTIL) (2.5 MG/3ML) 0.083% nebulizer solution INHALE 1 VIAL VIA NEBULIZER EVERY 4 TO 6 HOURS 0 09/07/2021 Active lisinopril (PRINIVIL,ZESTRIL) tablet 2.5 mg 0 01/02/2019 Active colchicine (MITIGARE) 0.6 MG capsule Take 1 capsule (0.6 mg total) by mouth 2 (two) times a day. 0 Active omeprazole (PriLOSEC) 40 MG capsule Take 1 capsule (40 mg total) by mouth 2 (two) times a day. 0 07/13/2021 Active cetirizine (ZyrTEC) 10 MG tablet Take 1 tablet (10 mg total) by mouth. 0 07/13/2021 Active atorvastatin (LIPITOR) tablet 10 mg Take 4 tablets (40 mg total) by mouth. 0 02/10/2021 Active lamoTRIgine (LaMICtal) 200 MG tablet Take 1 tablet (200 mg total) by mouth daily. 0 01/29/2021 Activ e metFORMIN (GLUCOPHAGE) tablet 1000 mg Take 1 tablet (1,000 mg total) by mouth 2 (two) times a day with meals. 0 04/10/2021 Active hydrOXYzine (VISTARIL) 50 MG capsule Take 1 capsule (50 mg total) by mouth. 0 01/11/2016 Active Melatonin 5 MG CAPS TAKE TWO CAPSULES BY MOUTH EVERY DAY WITH DINNER MEAL 0 10/02/2021 Active lithium carbonate 300 MG tablet Take 2 tablets (600 mg total) by mouth every morning. 0 11/17/2013 Active rizatriptan (MAXALT) 10 MG tablet 50mg every am 200 mg every pm 0 05/11/2021 Active EPINEPHrine 0.3 MG/0.3ML SOAJ epinephrine 0.3 mg/0.3 mL injection, auto-injector 0 01/14/2013 Active cyclobenzaprine (FLEXERIL) 10 MG tablet cyclobenzaprine 10 mg tablet 0 01/06/2019 Active clonazePAM (KlonoPIN) 1 MG tablet 0.5 mg. 0 09/23/2020 Active triamcinolone (KENALOG) 0.1 % cream triamcinolone acetonide 0.1 % topical cream 0 Active omalizumab (XOLAIR) 150 MG/ML SOSY injection Inject 2 mL (300 mg total) under the skin. 0 Activ e topiramate (TOPAMAX) 50 MG tablet Take 1 tablet (50 mg total) by mouth. 50 mg in AM and 50 mg at night per pt 0 07/04/2021 Active montelukast (SINGULAIR) 10 MG tablet Take 1 tablet (10 mg total) by mouth every morning. 0 02/12/2022 Active benztropine (COGENTIN) 0.5 MG tablet Take 1 tablet (0.5 mg total) by mouth 2 (two) times a day. 0 02/19/2022 Active OXcarbazepine (TRILEPTAL) 300 MG tablet Take 1.5 tablets (450 mg total) by mouth 2 (two) times a day. 0 02/10/2021 Active norethindrone (MICRONOR) 0.35 MG tablet Take 1 tablet (0.35 mg total) by mouth. 0 Active hydroCHLOROthiazid e (HYDRODIURIL) tablet 25 mg TAKE ONE TABLET BY MOUTH EVERY DAY 0 02/19/2022 Active Fluticasone-Umecli din-Vilant (Trelegy Ellipta) 100-62.5-25 MCG/ACT AEPB Inhale into the lungs. 0 09/07/2021 Active Rimegepant Sulfate (NURTEC PO) Take 75 mg by mouth. 0 05/11/2021 Act maddy ondansetron (ZOFRAN) 4 MG tablet Take 1 tablet (4 mg total) by mouth. 0 03/18/2021 Active potassium chloride (MICRO-K) 10 MEQ CR capsule Take 1 capsule (10 mEq total) by mouth daily. 0 03/23/2022 Activ e Januvia 100 MG tablet TAKE ONE TABLET BY MOUTH EVERY DAY 0 03/24/2022 Active Combivent Respimat 20-100 MCG/ACT inhaler INHALE ONE PUFF BY MOUTH FOUR TIMES A DAY NEEDED 0 01/12/2022 Active immune globulin, human, (GAMMAGARD S/D) 10 g infusion Inject 20 g into the vein. 0 Active Vraylar 4.5 MG CAPS capsule 1.5 mg daily. 0 03/08/2022 Active docusate sodium (COLACE) 100 MG capsule Take 1 capsule (100 mg total) by mouth 2 (two) times a day. 0 Active aMILoride (MIDAMOR) 5 MG tablet 2 tablets (10 mg total) daily. 0 04/18/2022 Active fexofenadine (ANDREY) 180 MG tablet Take 1 tablet (180 mg total) by mouth daily. 0 Activ e levothyroxine (SYNTHROID) tablet 50 mcg Take 1 tablet (50 mcg total) by mouth every morning on an empty stomach. 0 Active Emgality 120 MG/ML injection INJECT 1ML 120MG) UNDER THE SKIN EVERY 28 DAYS 0 12/01/2022 Active doxycycline (VIBRA-TABS) 100 MG tablet TAKE ONE CAPSULE BY MOUTH TWICE A DAY FOR 10 DAYS 0 12/11/2022 Active amoxicillin (AMOXIL) 500 MG capsule Take 1 capsule (500 mg total) by mouth 2 (two) times a day. 0 12/11/2022 Active venlafaxine (EFFEXOR) 25 MG tablet Take 1 tablet (25 mg total) by mouth daily. 0 03/16/2023 Activ e lithium carbonate 150 MG capsule Take 2 capsules (300 mg total) by mouth every night at bedtime. 0 Active amoxicillin (AMOXIL) 500 MG capsule Take 1 capsule (500 mg total) by mouth 3 (three) times a day. For 5 days 0 Active dimenhyDRINATE (DRAMAMINE) 50 MG tablet Take 0.5 tablets (25 mg total) by mouth every night at bedtime. 0 Active sucralfate (CARAFATE) 1 g tablet 0 09/24/2023 Active esomeprazole (NexIUM) 40 MG capsule 1 capsule (40 mg total). 0 11/05/2023 Active ferrous sulfate 325 (65 FE) MG tablet Take 1 tablet (325 mg total) by mouth every morning with breakfast. 0 Active nortriptyline (PAMELOR) 10 MG capsule Take 1 capsule (10 mg total) by mouth every night at bedtime. 0 01/28/2024 Active Active Problems Problem Noted Date Diagnosed Date 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 Social History Tobacco Use Types Packs/Day Years Used Date Smoking Tobacco: Never Assessed Sex and Gender Information Value Date Recorded Sex Assigned at Female 10/05/2021 3:49 PM EDT Gender Identity Female 03/13/2023 8:46 AM EDT Sexual Orientation Straight 03/13/2023 8: 46 AM EDT Job Start Date Occupation Industry Not on file Not on file Not on file Last Filed Vital Signs Vital Sign Reading Time Taken Comments Blood Pressure 121/80 02/26/2024 8:13 AM EDT Pulse 86 02/26/2024 8:13 AM EDT Temperature 36.9 ??C (98.4 ??F) 02/26/2024 8:13 AM ED T Respiratory Rate 18 02/26/2024 8:13 AM EDT Oxygen Saturation 98% 02/26/2024 8:13 AM EDT Inhaled Oxygen Concentration - - Weight 78.5 kg (173 lb 1 oz) 02/26/2024 8:13 AM EDT Height 162.6 cm (5' 4 ) 01/09/2023 8:07 AM EDT Body Mass Index 29.71 01/09/2023 8:07 AM EDT Plan of Treatment Health Maintenance Due Date Last Done Comments Hepatitis B Vaccines (1 of 3 - 3-dose series) 1975 Hepatitis C Screening 1975 COVID-19 Vaccine (#1) 04/28/1976 Depression Screening 1987 BMI Counseling 10/27/1993 Preventative Health Evaluation 10/27/1993 Cervical Cancer Screening (Pap Smear) 10/27/1996 Colon Cancer Screening (Colonoscopy) 10/27/2020 Influenza Vaccine (#1) 2024 9, 02/13/2018, 02/08/2017, Additional history exists DTap / Tdap / Td (4 - Td or Tdap) 07/05/2032 07/05/2022, 09/19/2017, 12/08/2007 Pneumococcal Vaccine Aged Out 05/13/2014, 12/20/19 10 No longer eligible based on patient's age to complete this topic RSV Ped < 20 months Aged Out No longe r eligible based on patient's age to complete this topic Care Teams Health And Wellness Advisor Relationship Specialty Start Date End Date Bernie Aquino, FUEL STORAGE TECHNICIAN [address] [facility] [place] [address] PCP - General Family Medicine 10/05/21
--- OUTSIDE RECORDS SUMMARY | 2024-07-02 09:41 | XMS_ITS | Continuity of Care Document ---
Author Organization [facility] David lt Address [address] [place] [address]- Support Name Relationship Address Phone HEMANT LEE [...] Unknown U navailable Care Team Providers Care Youth Support Worker Name Role Phone Miles OTOOLE, Bernie Hardy Primary Care Physician [facility]counter [facility] Date(s): 05/28/24 - 06/27/24 [facility] [address] [place] [address]- Encounter Type: Triage Allergies, Adverse Reactions, Alerts [...] influenza virus vaccine, inactivated 2 02/13/18 Gi tyere influenza virus vaccine, inactivated 3 02/08/17 Gi [...] (oldterm) 8 03/14/09 Given 1Result Comment: [09/19/2017] [id number] 2Result Comment: [02/13/2018] [id number] 3Result Comment: [02/08/2017] [facility] [id number] 4Result Comment: [01/24/2013] ORDERRED BY [...] Maintenance, 07/09/23 2:12:00 PM EST, [facility], 163, cm, 06/06/23 7:29:00 EST, [...] Maintenance, 10/15/23 8:40:00 AM EDT, [facility], Partial fill upon patient request [...] EDT, Route to Pharmacy Electronically, [facility], 163, cm, 11/22/20 12:47:00 EDT, [...] 04/25/24 Status: Ordered Repeat number: 1 gabapentin 600 mg oral tablet 1 tablet = 600 mg, By Mouth, 3 times a day, # 90 tablet, 0 Refills, Maintenance, 06/12/24 8:34:00 AMEST, [facility], Partial fill upon patient request if the prescription is for a schedule II opioid drug., 163, cm, 06/12/24 8:08:00 EST, Height Start Date: 06/12/24 Status: Ordered Quantity: 90.0 Unit: tablet Repeat number: 1 Humalog Kwik Pen 100 [...] Quantity: 10.0 Unit: mL Repeat number: 2 hydrOXYzine hydrochloride 10 mg oral tablet 1 [...] Date: 05/11/21 Status: Ordered Repeat number: 1 Incassia 0.35 mg oral tablet 1 tablet = 0.35 mg, By Mouth, Daily, # 90 tablet, 3 Refills, Maintenance, 06/16/24 12:15:00 PM EST, [facility], Partial fill upon patient request if the prescription is for a scheduleII opioid drug., 163, cm, 06/12/24 8:08:00 EST, Height Start Date: 06/16/24 Status: Ordered Quantity: 90.0 Unit: tablet Repeat number: 4 lamotrigine 200 mg oral tablet 1 tablet = 200 mg, By Mouth, Daily at bedtime, 0 Refills, Maintenance, 06/12/24 8:31:00 AM EST, Partial fill upon patient request if the prescription is for a schedule II opioid drug. Start Date: 06/12/24 Status: Ordered Repeat number: 1 lamotrigine 50 mg oral tablet, extended release 1 tablet = 50 mg, By Mouth, Daily, 0 Refills, Maintenance, 06/12/24 8:32:00 AM EST, Partial fill upon patient request if the prescription is for a schedule II opioid drug. Start Date: 06/12/24 Status: Ordered Repeat number: 1 levothyroxine 0.05 mg oral [...] day, # 120 tablet, 2 Refills, Maintenance, 06/24/24 8:11:00 AM EST, [facility], 163, cm, 06/12/24 8:08:00 EST, Height Start Date: 06/24/24 Status: Ordered Quantity: 120.0 Unit: tablet Repeat number: 3 Microlet lancets Microlet lancets, See Instructions, # 100 each, Refills 11, Tot. Refills 11, Maintenance, Check blood sugars 3 times a day. DX: DM II E11.9, 05/22/24 10:15:00 AM EST, Supply, 163, cm, 05/16/24 9:17:00 EST, Height Start Date: 05/22/24 Status: Ordered Quantity: 100.0 Unit: each Repeat number: 12 montelukast 10 mg oral tablet 1, tablet, By Mouth, Daily in PM, # 90 tablet, Refills 1, Tot. Refills 1, Maintenance, 04/08/24 7:45:00 AM EST, Route to Pharmacy Electronically, [facility], 163, cm, 03/07/24 8:07:00 EDT, [...] Quantity: 60.0 Unit: capsule Repeat number: 7 Oxcarbazepine See Instructions, 900mg By Mouth twice a day, 0 Refills, Maintenance, 04/25/24 10:41:00 AM EST, Partial fill upon patient request if the prescription is for a schedule II opioid drug. Start Date: 04/25/24 Status: Ordered Repeat number: 1 Pen [place], 31 G x 5 mm BD Ultra [...] number: 1 rizatriptan 10 mg oral tablet See Instructions, 1 tablet By Mouth may repeat dose once in 2 hours, # 12 tablet, 1 Refills, Acute 07/14/24 3:50:00 PM EST, 06/16/24 3:50:00 PM EST, Tablet, [facility], Partial fill upon patient request if the prescription is for a schedule II opioid drug., 163, cm, 06/12/24 8:08:00 EST, Height Start Date: 06/16/24 Stop Date: 07/14/24 Status: Ordered Quantity: 12.0 Unit: tablet Repeat number: 2 topiramate 50 mg oral tablet 1 tablet = 50 mg, By Mouth, 2 times a day, per neuro, # 120 tablet, 5 Refills, 09/07/23 10:21:00 [...] Personnel Name: Marisa CHAIDEZ, Neto Osorio Position: [facility] Renal MD Member Role: Lifetime Consulting Physician Address: [address] [place] [address] [address] [facility] [address]- [place] [employer]: Name: Lore Clinton RN Position: [facility] AMB Nurse Member Role: Primary Care Nurse Name: Chris Rosenbaum MD Position: [facility] WEDDING PHOTOGRAPHER MD Member Role: Lifetime WEDDING PHOTOGRAPHER Physician Address: [address] [place] [address] [facility] [address]- [place] [employer]: Name: Bernie Aquino NP Position: [facility] PCO Associate Professional Member Role: PCP Address: [address] [place] [address]- [place] [employer]: Name: Gregg Hardy MD Position: [facility] Pulmonary MD Member Role: Lifetime Consulting Physician Address: [address] [place] [address]- [place] Tele[employer]: Care Team Related Persons Name: ONDINA [...]
--- OUTSIDE RECORDS SUMMARY | 2024-07-02 09:41 | XMS_ITS | Encounter Summary ---
Author Organization [facility] Address [address] [place] [address] Care Team Providers Care Defense Analyst Name Role Phone Bernie Aquino Primary Care Provider Reason for Visit * Reason Onset Date Comments migraines 03/29/2021 Encounter Details Date Type Department Care Team (Late st Contact Info) Description 03/29/2021 Telephone [facility] Central Scheduling Department [address] [place] [address] Telephone Intake, Staff migraines Social History Tobacco Use Types Packs/Day Years Used Date Smoking Tobacco: Never Smokeless Tobacco: Never Alcohol Use Standard Drinks/Week Comments No 0 (1 standard drink = 0.6 oz pur e alcohol) Comments Unknown Sex and Gender Information Value Date Recorded Sex Assigned at Female 03/29/2021 8:39 AM EST Legal Sex Female 9:22 AM EDT Gender Identity Female 03/29/2021 8:39 AM EST Sexual Orientation Straight 03/29/2021 8: 39 AM EST documented as of this encounter Miscellaneous Notes * Telephone Encounter - Kelly Castro - 03/29/2021 8:21 AM EST Neuro pt requests appt re migraines Pt states PPO coverage,PCP advised no referral needed Scheduled pt 06/28/[address] Grisel Meier,added to wait list I sent pt My Chart link to utilize [employer] Informed pt to have notes, labs, medication list,consult notes and mri and CT scan disks sent/brought to Neuro prior to visit documented in this encounter Plan of Treatment Upcoming Encounters Date Type Department Care Team (Late st Contact Info) Description 11/18/2024 10:30 AM EDT Office Visit [facility] [address] [place] [address] Laundry Attendant: Adrienne Gutiérrez MD [address] [place] [phone] documented as of this encounter Visit Diagnoses Not on filedocumented in this encounter Care Teams Defense Analyst Relationship Specialty Start Date End Date Bernie Aquino [address] [place] [address] PCP - General 08/22/21 documented as of this encounter
--- OUTSIDE RECORDS SUMMARY | 2024-07-02 09:41 | XMS_ITS | Continuity of Care Document ---
Author Organization [facility] David lt Address [address] [place] [address]- Support Name Relationship Address Phone HEMANT LEE Personal Relationship Unknown U navailable LEE, EMBER Personal Relationship Unknown Unavai lable LEE, EMBER Personal Relationship Unknown Unavai lable SKUSE, NARCISA spouse Unknown Unavailable LEE, EMBRE Personal Relationship Unknown Unavai lable GEMINI, ONDINA [...] Unknown U navailable Care Team Providers Care Fairground Operator Name Role Phone Miles OTOOLE, Bernie Hardy Primary Care Physician [facility] Date(s): 05/16/24 - 06/15/24 [facility] Adult [address] [place] [address]- Encounter Type: Triage Allergies, Adverse Reactions, Alerts [...] (oldterm) 8 03/14/09 Given 1Result Comment: [09/19/2017] [id number] 2Result Comment: [02/13/2018] [id number] 3Result Comment: [02/08/2017] [facility] [id number] 4Result Comment: [01/24/2013] ORDERRED BY [...] Maintenance, 07/09/23 2:12:00 PM EST, [facility], 163, cm, 06/06/23 7:29:00 EST, [...] EDT, Route to Pharmacy Electronically, [facility], Partial fill upon patient [...] EST, Route to Pharmacy Electronically, [facility], 163, cm, 03/07/23 8:42:00 [...] EDT, Route to Pharmacy Electronically, [facility], 163, cm, 11/22/20 12:47:00 EDT, [...] Quantity: 120.0 Unit: tablet Repeat number: 1 Microlet lancets Microlet lancets, See Instructions, # [...] EST, Route to Pharmacy Electronically, [facility], 163, cm, 03/07/24 8:07:00 EDT, [...] 04/25/24 Status: Ordered Repeat number: 1 Pen [place], 31 G x 5 mm BD Ultra [...] MD Member Role: Lifetime Consulting Physician Address: [address] [place] [address] [address] [place] [address]- [place] Tele[employer]: Name: Lore Clinton RN Position: [facility] RN Member Role: Primary Care Nurse Name: Miles OTOOLE, Bernie Hardy Position: [facility] PCO Associate Professional Member Role: PCP Address: [address] [place] [address]- [place] [employer]: Name: Gregg Hardy MD Position: [facility] Pulmonary MD Member Role: Lifetime Consulting Physician Address: [address] [place] [address]- [place] Telecom: Care Team Related Persons Name: ONDINA [...]
--- OUTSIDE RECORDS SUMMARY | 2024-07-02 09:41 | XMS_ITS | Continuity of Care Document ---
Author Organization [facility] David lt Address [address] [place] [address]- Support Name Relationship Address Phone HEMANT LEE [...] Unknown U navailable Care Team Providers Care Cut In Station Operator Name Role Phone Bernie Aquino NP Primary Care Physician Encounter [facility] Date(s): 06/12/24 - 06/19/24 [facility] Adult [address] [place] [address]- Encounter Diagnosis Bipolar disorder(Discharge Diagnosis) - 06/12/24 Migraine(Discharge Diagnosis) - 06/12/24 Facial pain(Discharge Diagnosis) - 06/12/24 Trapezius muscle strain(Discharge Diagnosis) - 06/12/24 Attending Physician: Bernie Aquino NP Referring Physician: Jonathan Nj MD Encounter Type: Office Visit Allergies, Adverse [...] (oldterm) 8 03/14/09 Given 1Result Comment: [09/19/2017] [id number] 2Result Comment: [02/13/2018] [id number] 3Result Comment: [02/08/2017] [facility] [id number] 4Result Comment: [01/24/2013] ORDERRED BY [...] 09/11/23 10:04:00 AM EDT, Tablet, [facility], Partial fill upon patient request [...] 11:57:00 AM EST, Route to Pharmacy Electronically, [facility], 163, cm, 03/07/23 8:42:00 EDT, Height, 76.2, kg, 01/06/22 8:38:00 EDT, Dry Weight Start Date: 05/21/23 Status: Ordered Quantity: 60.0 Unit: Unknown Repeat number: 1 Combivent Respimat 20 mcg-100 mcg/inh inhalation aerosol 1 puffs, Inhalation, 4 times a day, # 1 each, 0 Refills, Maintenance, 10/15/23 8:40:00 AM EDT, [facility], Partial fill upon patient request [...] 3:40:00 PM EDT, Route to Pharmacy Electronically, [facility], 163, cm, 11/22/20 12:47:00 EDT, [...] 6:54:00 AM EDT, 04/15/24 6:54:00 AM EST, [facility], Partial fill upon patient request [...] 2 Refills, Maintenance, 03/24/24 3:28:00 PM EST, [facility], 163, cm, 03/07/24 8:07:00 EDT, [...] EST, Route to Pharmacy Electronically, [facility], 163, cm, 03/07/24 8:07:00 EDT, [...] 04/25/24 Status: Ordered Repeat number: 1 Pen Logan, 31 G x 5 mm BD Ultra [...] number: 2 topiramate 50 mg oral tablet See Instructions, [...] inical Service Informant Bipolar disorder Discharge Diagnosis 06/12/24 Migraine Discharge Diagnosis 06/12/24 Facial pain Discharge Diagnosis 06/12/24 Trapezius muscle strain Discharge Diagnosis 06/12/24 Vital Signs Most recent to oldest [Reference Range]: 1 Height 163 cm (06/12/24 8:08 AM) Weight 77.3 kg (06/12/24 8:08 AM) Oxygen Saturation [94-100 %] 97 % (06/12/24 8:08 AM) Pulse Rate [55-90 bpm] 93 bpm *H* (06/12/24 8:08 AM) Body Mass Index [18.5-24.99 kg/m2] 29.09 kg/m2 *H* (06/12/24 8:08 AM) Blood Pressure [90-138/55-84 mm Hg] 116/ 74mm Hg (06/12/24 8:08 AM) Blood pressure sites Arm, right (06/12/24 8:08 AM) Weight Obtained Via Standing scale (06/12/24 8:08 AM) Social History Social History Type Response Smoking Status Never smoker entered on: 05/12/13 Sex Sex Representation Female (finding) Note * Mary Lu: PERFORM Event Display: Patient Education/Instruction Authored Date: [id number] Ambulatory Adult Visit Summary [facility] [address] [place] [address] Name: HEMANT LEE : 1975?? Visit: 06/12/2024 08:04?? Ambulatory Visit Instructions ?? Your Care Team Primary Care Provider Miles OTOOLE, Bernie Hardy? This Visit Provider Bernie Aquino NP Vitals Signs Pulse Rate:??93 bpm??High Height: 163 cm Systolic Blood Pressure: 116 mm Hg Weight: 77.3 kg Diastolic Blood Pressure: 74 mm Hg Body Mass Index:??29.09 kg/m2??High Oxygen Saturation: 97 % Body surface area: 1.87 What to do next Scheduled Follow-Up Appointments 2024 9:40 AM EST ?? With: Azeem CHAIDEZ, Vish Mcdaniel Where: [facility] [address] [address] [place] [address]- Status: Pending Sunday 1:00 PM EDT ?? With: Walker CHAIDEZ, Lluvia Mendez Where: [facility] [address] [place] [address]- Status: Pending Follow-Up Appointments Follow Up with??Bernie Aquino NP When:??In 3 months Why: long Where: [address] [place] [address]- Future Orders Iron Level - Routine, Once, [...] prescribing provider. What How Much When Instructions Changed Gabapentin (gabapentin 600 mg oral tablet) 1 tab(s) Oral 3 times a day Pickup at [facility] Changed Lamotrigine (lamotrigine 200 mg oral tablet) 1 tab(s) Oral Daily at Bedtime Changed Lamotrigine (lamotrigine 50 mg oral tablet, extended release) 1 tab(s) Oral Daily Unchanged Albuterol/ Ipratropium (Combivent Respimat 20 mcg-100 [...] Duration: 30 Days Unchanged dulaglutide (Trulicity Pen 1.5 mg/ 0.5 mL subcutaneous solution) 0.5 Milliliter Subcutaneous Injection Every week rotate injection sites ?? Unchanged Durable Medical Equipment (Contour Next test strips) See instructions check blood glucose 3 times a day and a s needed. Dx code E 11.9 ??T2DM ?? Unchanged Durable Medical Equipment (Microlet lancets) See instructions Check blood sugars 3 times a day. DX: ??DM II ?E11.9 ?? Unchanged Durable Medical Equipment (Pen Logan, 31 G x 5 mm BD Ultra Fine III) See instructions use with lispro pen Dx: Type II diabetes ?? Unchanged Epinephrine (EpiPen 2-Juvenal) 0.3 Milligram Intramuscular Once Unchanged Ferrous Gluconate (ferrous gluconate 324 mg oral tablet) 1 tab(s) Oral 3 times a day Unchanged fluticasone/ umeclidinium/ vilanterol (Trelegy Ellipta) Inhalation Daily Unchanged galcanezumab (Emgality Prefilled Syringe 120 mg/ mL subcutaneous solution) 120 Milligram Subcutaneous Infusion Every 28 days Unchanged Hydrochlorothiazide See instructions 40mg By Mouth Daily & 25mg PRN ?? Unchanged HydrOXYzine (hydrOXYzine hydrochloride 10 mg oral tablet) 1 tab(s) Oral Daily at Bedtime Unchanged Immune Globulin Intramuscular 20 GRAMS EVERY 3 WEEKS ?? Unchanged Insulin Lispro (Humalog Kwik Pen 100 units/ mL subcutaneous injection) See instructions take 15 minutes before ??meals, 3 times a day if glucose levels: 200-250: take 2 units 251-300: take 4 units 301-350: take 6 units 351-400: take 8 units 401-450: take 10 units 451-500: take 12 unis call for glucose greater than 500 ?? Unchanged Levothyroxine (levothyroxine 0.05 mg oral tablet) See instructions 1 tablet By Mouth from sunday to sunday and 1.5 tablets on sunday ?? Unchanged Magnesium Oxide (magnesium oxide 400 mg oral tablet) 1 tab(s) Oral Daily Duration: 30 Days Unchanged Melatonin (Melatonin 10 mg oral tablet) 1 tab(s) Oral Daily at Bedtime Unchanged Metformin (metFORMIN 500 mg oral tablet) 2 tab(s) Oral Twice a day Unchanged Montelukast (montelukast 10 mg oral tablet) 1 tab(s) Oral Daily in PM Unchanged Norethindrone (Jade) 0.35 Milligram Oral Daily Unchanged omalizumab (Xolair 150 mg subcutaneous injection) See instructions 300 mg Subcutaneous Injection ?? Unchanged Omeprazole (omeprazole 40 mg oral enteric coated capsule) 1 capsule Oral Twice a day Unchanged Ondansetron (ondansetron 8 mg oral tablet) 1 tab(s) Oral Twice a day Duration: 7 Days Unchanged Oxcarbazepine See instructions 900mg By Mouth twice a day ?? Unchanged Oxcarbazepine (Trileptal 300 mg oral tablet) See instructions 1.5 tabs BID ?? Unchanged PredniSONE (predniSONE 20 mg oral tablet) See instructions 1-2 tablet By Mouth Daily, PRN ?? Unchanged Rizatriptan (rizatriptan 10 mg oral tablet) 1 tab(s) Oral PRN ?? Unchanged Topiramate (topiramate 50 mg oral tablet) See instructions TAKE 1 TABLET IN THE MORNING AND 3 TABLETS AT BEDTIME. ?? Unchanged Venlafaxine See instructions 75mg By Mouth ?? Pharmacy Information [facility]: [address] [place], [place] [id number] [phone] Medications and Immunizations Administered Medications Given During [...] are strongly encouraged to quit. Please call [email or web address] Link at [phone] or [phone] ([phone]) or log in to [email or web address] for referrals to smoking cessation programs. ?? The National Suicide Prevention Hotline is available 04/12 if you or someone you know needs to find a reason to keep living. By calling 2-958-984-Peg Band[employer] (1639) you'll be connected to a skilled, trained counselor at a crisis center in your area. [facility] [employer] Portal You can view and manage your care through the patient portal or by using a health care chinmay of your choosing. [employer] is a website that allows you to securely view your medical information including your hospital discharge summary, office visit summaries, medications and follow-up visits. You can also request appointments, renew medications, and request access to your medical information using a health care chinmay of your choosing, or just ask a question. You can enroll at [email or web address] or register during your next office visit. [facility], in keeping with [facility] guidance, no longer requires face [...] care provider, you may find a [facility] provider by calling [facility] [employer] Link at [phone]. Patient Care team information Care Team Personnel Name: Marisa CHAIDEZ, Neto Osorio Position: [facility] Renal MD Member Role: Lifetime Consulting Physician Address: [address] [place] [address] [address] [place] [address]- [place] Telecom: Name: Lore Clinton RN Position: [facility] AMB Nurse Member Role: Primary Care Nurse Name: Chris Rosenbaum MD Position: [facility] ONLINE MARKETER MD Member Role: Lifetime ONLINE MARKETER Physician Address: [address] [place] [address] [address]- [place] Tele[employer]: Name: Bernie Aquino NP Position: [facility] PCO Associate Professional Member Role: PCP Address: [address] [place] [address]- Telecom: Name: Gregg Hardy MD Position: [facility] MD Member Role: Lifetime Consulting Physician Address: [address] [place] [address]- Telecom: Care Team Related Persons Name: ONDINA SINGLETARY Name: BLAIRE JACOB Insurance Providers Guarantor name: HEMANT LEE Health Plan Information #: 2 Payer: MEDICARE PART B OUTPT Member Number: [id number] Policy Number: NA Group Number: NA Health Plan Information #: 3 Payer: [place] Member Number: [id number] Policy Number: NA Group Number: NA Health Plan Information #: 1 Payer: OUT OF STATE PLANS Member Number: [id number] Policy Number: NA Group Number: NA
--- OUTSIDE RECORDS SUMMARY | 2024-07-02 09:41 | XMS_ITS | Continuity of Care Document ---
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 Name Role Phone Bernie Aquino NP Primary Care Physician Encounter [facility] Date(s): 06/12/24 - 06/19/24 [facility] Adult [address] [place] [address]- Encounter Diagnosis Bipolar disorder(Discharge Diagnosis) - 06/12/24 [...] (oldterm) 8 03/14/09 Given 1Result Comment: [09/19/2017] [id number] 2Result Comment: [02/13/2018] [id number] 3Result Comment: [02/08/2017] [facility] [id number] 4Result Comment: [01/24/2013] ORDERRED BY [...] 09/11/23 10:04:00 AM EDT, Tablet, [facility], Partial fill upon patient request if the prescription is for a schedule II opioid drug., 163, cm, 09/06/23 10:02:00 EDT, Height, 76.2, kg, 01/06/22 8:38:00 EDT, Dry Weight Start Date: 09/11/23 Status: Ordered Quantity: 90.0 Unit: tablet Repeat number: 3 Ajde = 0.35 mg, By Mouth, Daily, 0 [...] 11:57:00 AM EST, Route to Pharmacy Electronically, [facility], 163, cm, 03/07/23 8:42:00 EDT, Height, 76.2, kg, 01/06/22 8:38:00 EDT, Dry Weight Start Date: 05/21/23 Status: Ordered Quantity: 60.0 Unit: Unknown Repeat number: 1 Combivent Respimat 20 mcg-100 mcg/inh inhalation aerosol 1 puffs, Inhalation, 4 times a day, # 1 each, 0 Refills, Maintenance, 10/15/23 8:40:00 AM EDT, [facility], Partial fill upon patient request [...] 3:40:00 PM EDT, Route to Pharmacy Electronically, [facility], 163, cm, 11/22/20 12:47:00 EDT, [...] 6:54:00 AM EDT, 04/15/24 6:54:00 AM EST, [facility], Partial fill upon patient request [...] 2 Refills, Maintenance, 03/24/24 3:28:00 PM EST, [facility], 163, cm, 03/07/24 8:07:00 EDT, [...] EST, Route to Pharmacy Electronically, [facility], 163, cm, 03/07/24 8:07:00 EDT, [...] 04/25/24 Status: Ordered Repeat number: 1 Pen [place], 31 G x 5 mm BD Ultra [...] PERFORM Event Display: Patient Education/Instruction Authored Date: [id number] Ambulatory Adult Visit Summary [facility] [address] [place] [address] Name: HEMANT LEE : 1975?? Visit: 06/12/2024 [...] ?? With: Azeem CHAIDEZ, Vish Mcdaniel Where: [facility] [address] [facility] [address] [place] [address]- Status: Pending Sunday 1:00 PM EDT ?? With: Walker CHAIDEZ, Lluvia Mendez Where: [facility] [address] [place] [address]- Status: Pending Follow-Up Appointments Follow Up with??Bernie Aquino NP When:??In 3 months Why: long Where: [address] [place] [address]- Future Orders Iron Level - Routine, Once, [...] Oral 3 times a day Pickup at [facility] Changed Lamotrigine (lamotrigine 200 mg [...] ?E11.9 ?? Unchanged Durable Medical Equipment (Pen [place], 31 G x 5 mm BD Ultra [...] Information [facility]: [address] [place], [place] [id number] [phone] Medications and Immunizations Administered Medications Given During [...] are strongly encouraged to quit. Please call [employer] Link at [phone] or [phone] ([phone]) or log in to [email or web address] for referrals to smoking cessation programs. ?? The National Suicide Prevention Hotline is available 04/12 if you or someone you know needs to find a reason to keep living. By calling 5-448-229-DND Consulting (3952) you'll be connected to a skilled, trained counselor at a crisis center in your area. [facility] [employer] Portal You can view and manage your care through the patient portal or by using a health care chinmay of your choosing. [employer] is a website that allows you to securely view your medical information including your hospital discharge summary, office visit summaries, medications and follow-up visits. You can also request appointments, renew medications, and request access to your medical information using a health care chinmay of your choosing, or just ask a question. You can enroll at [email or web address] or register during your next office visit. [facility], in keeping with [facility] guidance, no longer requires face [...] primary care provider, you may find a [facility] provider by calling [facility] [employer] Link at [phone]. Patient Care team information Care Team Personnel Name: Marisa CHAIDEZ, Neto Osorio Position: [facility] Renal MD Member Role: Lifetime Consulting Physician Address: [address] [place] [address] [address] [place] [address]- [place] Tele[employer]: Name: Lore Clinton RN Position: [facility] AMB Nurse Member Role: Primary Care Nurse Name: Chris Rosenbaum MD Position: [facility] SEASONAL PACKAGE HANDLER MD Member Role: Lifetime SEASONAL PACKAGE HANDLER Physician Address: [address] [place] [address] [address]- [place] Tele[employer]: Name: Bernie Aquino NP Position: [facility] PCO Associate Professional Member Role: PCP Address: [address] [place] [address]- Telecom: Name: Gregg Hardy MD Position: [facility] MD Member Role: Lifetime Consulting Physician Address: [address] [place] [address]- Telecom: Care Team Related Persons Name: ONDINA SINGLETARY Name: BLAIRE JACOB Insurance Providers Guarantor name: HEMANT LEE Health Plan Information #: 3 [facility] Member Number: [id number] Policy Number: NA Group Number: NA Health Plan Information #: 1 Payer: [place] OUT OF STATE PLANS Member Number: [id number] Policy Number: NA Group Number: NA Health Plan Information #: 2 Payer: MEDICARE PART B OUTPT Member Number: [id number] Policy Number: NA Group Number: NA
--- OUTSIDE RECORDS SUMMARY | 2024-07-02 09:41 | XMS_ITS | Data Portability ---
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 This visit is a [id number] visit during the COVID-19 pandemic Public Health [...] provided today in accordance with [facility] and CDC guidelines. There was additional practice expense incurred due to the Public Health Emergency. This additional expense includes but is not limited to: ? Additional clinical staff and medical environmental technical officer time for pre-screening ? Time spent reviewing COVID social distancing guidelines, precautions, instructions, and signage ? Patient symptom checking upon arrival ? Application, removal, and purchasing of additional PPE ? Additional cleaning of exam room, equipment, supplies, as well as cleaning supplies for that purpose. [email or web address] Not available 07/08/2021 12:37:18 07/26/2021 07/26/2021 Assessment: Righ t hip degenerative labral tear in setting [...] AVN and loose bodies 2021 022 [email or web address] [facility], [address] [place], [address], 09:34:34 Medication Orders None recorded. Patient TargetsNo targets recorded. Patient InstructionsNo instructions recorded. Reason for Referral Physical Therapist Referral for Complete tear, hip ligament 2-3 times a week as tolerated Dx: Labral tear and glute tendonitis Referring Physician: Wang Valenzuela, Orthopedic Surgery, Encounter Date: 01/17/2023 Results Created Date Observation Date Name Description Value Unit Range Abnormal Flag Note LastModifiedBy Organization Detail LastModifiedTime 07/06/19 22 07/06/2021 xr hip right 4vw_W or wo pelvi s Fin al Report EXAM#: [id number] PROCED URE: DXR 0178 XR HIP [...] RAMÍREZ M.D. On: Jul 06 2021 1:13P [email or web address] [facility] [address] [facility], [place], [address], 07/06/2021 14:45:47 07/19/19 22 07/16/2021 MRI, hip, w/o contr ast Pre limina ry Report EXAM#: [id number] PROCED URE: MR 0073 MRI HIP [...] 18 2021 9:11A Signed by: On: prem [facility] [address] [facility], [place], [address], 07/18/2021 14:51:07 07/19/19 22 07/16/2021 MRI, hip, w/o contr ast Fin al Report EXAM#: [id number] PROCED URE: MR 0073 MRI HIP [...] bilate ral ankles accord ing to Daniel protoc ol. COMPAR TOPHER: RIGHT HIP MRI FROM [...] WASHINGTON M.D. On: Jul 18 2021 11:57A [email or web address] [facility] [address] [facility], [place], [address], 07/18/2021 14:01:26 03/29/2003/27/2022 MRI hip left Fin al Report EXAM#: [id number] PROCED URE: MR 0070 MRI HIP [...] supero inferi or by 0.3 cm tate holistic nutritionist ior by 0.3 cm mediol ateral (axial [...] WASHINGTON M.D. On: Mar 29 2022 9:14A [email or web address] [facility] [address] [facility], [place], [address], 03/29/2022 13:42:34 03/29/20 22 03/27/2022 MRI, hip, w/o contr ast Fin al Report EXAM#: [id number] PROCED URE: MR 0073 MRI HIP [...] WASHINGTON M.D. On: Mar 29 2022 9:25A [email or web address] [facility] [address] [place], [address], 03/29/2022 13:42:48 01/18/20 23 01/17/2023 xr hip right 4vw_W or wo pelvi s Fin al Report EXAM#: [id number] PROCED URE: DXR 0178 XR HIP [...] M.D. On: Jan 17 2023 12:22P [email or web address] [facility] [address] [place], [address], 01/17/2023 12:38:51 Result Notes None recorded. Problems Name Problem SNOMED Code Status Onset Date Resolution Date Notes Provider Name and Address Organization Details Recorded Time Acetabular labrum tear 196361555 Active 021 Enedina murphy [facility] 14:17:00 Problem Notes None recorded. Procedures Surgical History Date Name Laterality Status Provider Name and Address Organization Details Recorded Time 022 parathyroidectomy completed Sonya Nation [facility] 04/12/2022 13:46:24 018 Orthopaedic Surgery completed Lexii Pacheco [facility] 02/23/2021 13:14:29 009 Orthopaedic Surgery completed Lexii Pacheco [facility] 02/23/2021 13:14:38 000 Orthopaedic Surgery completed Lexii Pacheco [facility] 02/23/2021 13:14:46 Imaging Results Imaging Date Name Status LastModified by Organiz ation Details LastModified Time 07/06/2021 xr hip right 4vw_W or wo pelvis completed [address] [facility] [address] [place], [address], 07/06/2021 14:45:47 07/16/2021 MRI, hip, w/o contrast completed [email or web address] [facility] [address] [place], [address], 07/18/2021 14:51:07 07/16/2021 MRI, hip, w/o contrast completed [address] [facility] [address] [place], [address], 07/18/2021 14:01:26 03/27/2022 MRI hip left completed [address] [facility] [address] [place], [address], 03/29/2022 13:42:34 03/27/2022 MRI, hip, w/o contrast completed [address] [facility] [address] [place], [address], 03/29/2022 13:42:48 01/17/2023 xr hip right 4vw_W or wo pelvis completed [email or web address] [facility] [address] [facility], [place], [address], 01/17/2023 12:38:51 Procedure Notes None recorded. Medical Equipment None Reported. Allergies Allergen ID Allergen Name Allergen Category Reaction Reaction Severity Criticality Documentation Date Start Date Code Code System Note Provider Name and Address Organization Details Recorded Time 926338 morphine medicatio n Not available Not available Not available 02/23/2021 7052 RxNorm Lexii Pacheco [facility] 13:07:48 758635 adhesive tape environme nt,medica tion Not available Not available Not available 02/23/2021 41984 UNK Lexii Pacheco [facility] 13:07:48 857288 Demerol medicatio n Not available Not available Not available 02/23/2021 73468 1 RxNorm Lexii Pacheco [facility] 13:07:48 777972 Non-stero idal anti-infl ammatory agent (product) medicatio n other Not available Not available 02/23/2021 37280 005 SNOMED IgG defic iency , canno t take. Lexii Pacheco [facility] 13:13:07 Medications Name [...] Not Available Not Available No t [facility] mg disintegrat ing tablet PLACE ONE TABLET BY MOUTH EVERY OTHER DAY 2021 active Not Available Not Available Not Avai lable Vitals Date Recorded Body height Provider Name an d Address Organization Details Last Updated DateTime 07/06/2021 162.56 cm Dhaval Coburn [facility] 07/06/2021 11:20:09 Date Recorded Body height Body mass index (BMI) Body weight Provider Name and Address Organization Details Last Updated DateTime 07/26/2021 162.56 cm 28.7 kg/m2 38632.93 [facility] 07/26/2021 12:20:18 Date Recorded Body height Body mass index (BMI) Body weight Provider Name and Address Organization Details Last Updated DateTime 03/10/2022 162.56 cm 28.8 kg/m2 01935.52 g Rosio Whaley [facility] 03/10/2022 13:26:00 Date Recorded Body height Body mass index (BMI) Body weight Provider Name and Address Organization Details Last Updated DateTime 04/12/2022 162.56 cm 29.5 kg/m2 44667.89 g Sonya Nation [facility] 04/12/2022 13:46:00 Date Recorded Body height Provider Name an d Address Organization Details Last Updated DateTime 01/17/2023 162.56 cm Shalom Gaona [facility] 01/17/2023 11:59:26 Social History Question Answer Notes LastModified by Organizat ion Details LastModified Time Tobacco Smoking Status Never Smoker Lexii Pacheco [facility] 02/23/2021 13:07:49 What Is Your Level Of Alcohol Consumption? None [email or web address] Information not available 02/23/2021 What Is Your Level Of Caffeine Consumption? None Information not available 03/10/2022 Do You Or Have You Ever Used E-cigarettes Or Vape? 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 Yes [email or web address] Information not available 02/23/2021 Briefly Explain Your Foot/ankle Condition (injury) Hip Problem, Pain, Instability, Weakness, Stiffness, Spasms, Some Sharp Pains [email or web address] Information not available 02/23/2021 Date Of Injury/Duration Of Injury (weeks, Months, Years) No Injury, Date Of Initial Diagnosis 2017 [email or web address] Information not available 02/23/2021 What Treatments Have You Tried For This Condition? Cortisone Shot, A Little Pt [email or web address] Information not available 02/23/2021 Have Any Other Tests Been Done For This Problem? X-ray [email or web address] Information not available 02/23/2021 Is This Condition/proble m Affecting Your Ability To Exercise Or Perform Activities Of Daily Living? Yes [email or web address] Information not available 02/23/2021 Do You Wear Custom-made Orthotics? No [email or web address] Information not available 02/23/2021 How Old Are They? 4 Years Information not available 02/23/2021 Have You Ever Had Problems With Healing A Wound? Have You Ever Been Told You Are A Slow Healer? No [email or web address] Information not available 02/23/2021 Do You Or Have You Ever Used Smokeless Tobacco? Never Used Smokeless Tobacco [email or web address] Information not available 02/23/2021 How Much Tobacco Do You Smoke? No [email or web address] Information not available 02/23/2021 What Types Of Sporting Activities Do You Participate In? None [email or web address] Information not available 02/23/2021 How Many Years Have You Smoked Tobacco? 0 [email or web address] Information not available 02/23/2021 Sex: Unknown Functional Status Question Answer Note LastModified by Organizat ion Details LastModified Time What is your exercise level? Occasional Information not available 03/10/2022 Mental Status None recorded. Family History Relationship Description Onset Age of this Age Resolved Age Notes LastModified by Organization Details LastModified Time Father No current problems or disability [email or web address] Not available 13:13:31 Mother No current problems or disability [email or web address] Not available 13:13:31 Medical History Condition Response HIV or AIDS N High Blood Pressure N Irregular Heartbeat N MRSA Y Any Other Significant Medical Issues Y Weight Gain / Loss N Hearing Loss N Angina, Heart Failure or Attack N Night Sweats N Seizures / Epilepsy N Osteoarthritis / Rheumatoid arthritis / Other Y Cancer Y Stroke N Ulcer / Stomach Bleeding / Indigestion Y Visual Loss or Glaucoma N Blood Clots / Phlebitis N Heart Problems N Depression or Anxiety Y Emphysema / Chronic Bronchitis N Reaction to General/Local Anesthesia N Hepatitis / Jaundice N Kidney / Bladder Infections Y Diabetes Y Bleeding Disorder N Chemical Dependency / Alcoholism N Psoriasis / Skin Rash Y Thyroid Disorder N Heart Disease N Asthma / Shortness of Breath / Sleep Clerical Secretary ea (please specify) Y Pulmonary Embolism N Gynecological HistoryNo gynecological history recorded. Obstetrics History GPAL:G 0 P 0 0 0 0 Past Encounters Encounter ID Performer Location Encounter Start Date Encounter Closed Date Diagnosis/Indication Diagnosis SNOMED-CT Code Diagnosis ICD10 Code Diagnosis Note [id number] WANG VALENZUELA MD [facility] am Office [address] [place] [phone] 02/23/2021 12:48:39 02/23/2021 13:44:40 Hip pain 89238968 M25.551 Acetabular labrum tear 192071557 M24.[id number] [facility] am Office 40 [employer] [address] [place] [id number] 03/16/2021 13:16:51 03/16/2021 14:16:47 Acetabular labrum tear 117281558 M24.[id number] [facility] am Office [address] [facility] [place] [address] 05/18/2021 12:19:43 05/18/2021 13:04:42 Acetabular labrum tear 994512699 M24.151 [id number] WANG VALENZUELA MD [facility] Office [address] [facility] [place] [address] 07/06/2021 10:39:57 07/06/2021 21:38:58 Hip pain 69914205 M25.551 [id number] WANG VALENZUELA MD [facility] Office [address] [place] [id number] 07/26/2021 09:33:05 07/26/2021 15:13:55 Osteoarthritis of right hip joint 3598218890 10100 M16.11 [id number] WANG VALENZUELA MD [facility] Office [address] [place] [phone] 03/10/2022 12:49:51 03/16/2022 20:28:35 Hip pain 01495339 M25.932 [id number] WANG VALENUZELA MD [facility] Office [address] [facility] [place] [address] 04/12/2022 13:04:41 04/19/2022 10:57:56 Hip pain 21445463 M25.[id number] [facility] am Office [address] [facility] [place] [address] 01/17/2023 10:53:10 01/17/2023 12:11:23 Complete tear, hip ligament 313702506 S73.101A Health Concerns Section Related Observation LastModified by Organization Detai ls LastModified Time None Recorded Concern Status LastModified by Organization Details LastModified Time None Recorded Advance Directives Directive None Recorded Payers Encounter Date Sequence Insurance Name Policy Number Policy Brambila Covered Member ID Brambila Member ID Guarantor Name 07/06/2021 1 [place] [id number] Pineda Garcia [id number] Meredith Garcia 07/06/2021 2 [place] [facility] Meredith Garcia [id number] Meredith Arreguins 07/26/2021 1 [place] [facility] [id number] Pineda Arreguins [id number] Meredith Arreguins 07/26/2021 2 [place] [facility] Meredith Arreguins [id number] 24 Meredith Arreguins 03/10/2022 1 [place] [facility] SHIELD [id number] Pineda Arreguins [id number] Meredith Garcia 03/10/2022 2 [place] [facility] Meredith Arreguins [id number] 24 Meredith Arreguins 04/12/2022 1 [place] [facility] SH[place]ELD [id number] Pineda Arreguins [id number] Meredith Garcia 04/12/2022 2 [place] [facility] Meredith Arreguins [id number] 24 Meredith Arreguins 01/17/2023 1 [place] [facility] SH[place]ELD [id number] Pineda Arreguins [id number] Meredith Arreguins 01/17/2023 2 [place] [facility] Meredith Garcia [id number] Meredith Garcia Notes Date Note Type [...] considering a thyroidectomy soon. WANG VALENZUELA MD [address] [place] [address], [phone], [facility] 07/13/2021 11:11:43 07/26/2021 text/html COVID-19 STATEME NT: This visit was conducted as a real time interactive TeleHealth audiovisual TeleHealth visit conducted via [employer] U during the ongoing COVID-19 [facility]. The patient was identified by name and date of and consented to this TeleHealth visit. The patient was at their home in [place] and I was at my [place] office. This was done over the course of 26 minutes including record review. We are in touch with Meredith today via telehealth. Patient is currently in [place]. This is for follow-up regarding her right hip MRI recently obtained. The overall concern was underlying mild arthritic changes middle-aged female with degenerative labral tear. WANG VALENZUELA MD [address] [place] [address], [phone], [facility] 08/02/2021 11:45:39 03/10/2022 text/html [...] radiographs were obtained today. WANG VALENZUELA MD [address] [place] [address], [phone], [facility] 03/18/2022 07:46:12 04/12/2022 text/html Meredith return s today for followup regarding her hips. She had MRI in the interim. Her pain mostly seems to be posterior SI joint. She reports focal point tenderness. She denies any neurologic deficits. She presents with a cane. Previously, we had concerns for significant osteoarthritic changes being present already. WANG VALENZUELA MD [address] [place] [address], [phone], [facility] 04/27/2022 15:11:21 01/17/2023 text/html [...] help her significantly as well. ROMY COLORADO [address] [place] [address], [place], [phone], [facility] 01/18/2023 22:43:28 OBGyn Episode No OBEpisode recorded.
--- OUTSIDE RECORDS SUMMARY | 2024-07-02 09:41 | XMS_ITS | Encounter Summary ---
Author Organization [facility] Address [address] [place] [address] Care Team Providers Care Administrative Director Name Role Phone Bernie Aquino Primary Care Provider [phone] Encounter Details Date Type Department Care Team (Late st Contact Info) Description 04/05/2020 Documentation [facility] Building [address] [place] [address] Rafaela Pedro CPhT Social History Tobacco Use Types Packs/Day Years [...] AM EST documented as of this encounter Plan of Treatment Upcoming Encounters Date Type Department Care Team (Late st Contact Info) Description 11/18/2024 10:30 AM EDT Office Visit [facility] [address] [place] [address] Command And Control Specialist: Adrienne Gutiérrez MD [address] [place] [address] documented as of this encounter Visit Diagnoses Not on filedocumented in this encounter Care Teams Administrative Director Relationship Specialty Start Date End Date Bernie Aquino [address] [place] [phone] PCP - General 08/22/21 documented as of this encounter
--- OUTSIDE RECORDS SUMMARY | 2024-07-02 09:41 | XMS_ITS | Encounter Summary ---
Author Organization [facility] Address [address] [place] [address] Care Team Providers Care Oracle Architect Name Role Phone MilesTristenca Primary Care Provider [phone] Reason for Visit * Reason Onset Date Comments Reschedule 10/18/2021 Encounter Details Date Type Department Care Team (Late st Contact Info) Description 10/18/2021 Telephone [facility] Central Scheduling Department [address] [place] [phone] Telephone Intake, Staff Reschedule Social History Tobacco Use Types Packs/Day Years [...] encounter Miscellaneous Notes * Telephone Encounter - Purvi Keane - 10/18/2021 3:26 PM EDT Pt needs to reschedule january 06 appointment with in the headache clinic Pt is requesting around the same time frame but she is having her thyroid surgery on jan 06 and would need a week or so to recover pls follow up with pt to coordinate [phone] documented in this encounter Plan of Treatment Upcoming Encounters Date Type Department Care Team (Late st Contact Info) Description 11/18/2024 10:30 AM EDT Office Visit [facility] [address] [place] [phone] Jig Worker: Adrienne Gutiérrez MD [address] [place] [phone] documented as of this encounter Visit Diagnoses Not on filedocumented in this encounter Care Teams Oracle Architect Relationship Specialty Start Date End Date Bernie Aquino [address] [place] [phone] PCP - General 08/22/21 documented as of this encounter
--- OUTSIDE RECORDS SUMMARY | 2024-07-02 09:41 | XMS_ITS | Encounter Summary ---
Author Organization [facility] Address [address] [place] [address] Care Team Providers Care Biochemical Development Engineer Name Role Phone Bernie Aquino Primary Care Provider [phone] Encounter Details Date Type Department Care Team (Late st Contact Info) Description 04/12/2021 Orders Only [facility] [address] [place] [address] ProviderCaitlyn MD [address] [place] [phone] Social History Tobacco Use Types Packs/Day Years [...] 11/18/2024 10:30 AM EDT Office Visit [facility] [address] [place] [address] Business Development: Adrienne Gutiérrez MD [address] [place] [phone] documented as of this encounter Procedures * Due to [place] state law, this organization might not be sharing negative HIV tests. Procedure Name Priority Date/Time Associated Diagnosis Comments AMB EXTERNAL CT HEAD, OUTSID E RESULT Routine 03/15/2021 documented in this encounter Results * Due to [place] [employer] law, this organization might not be sharing negative HIV tests. * CT Head, Outside Result (03/15/2021) Anatomical Region Laterality Modality Other us Unknown Provider MD JEFFERSON EXTERNAL RESULT PROCEDUR ES Final Result documented in this encounter Visit Diagnoses Not on filedocumented in this encounter Care Teams Biochemical Development Engineer Relationship Specialty Start Date End Date Bernie Aquino [address] [place] [phone] PCP - General 08/22/21 documented as of this encounter
--- OUTSIDE RECORDS SUMMARY | 2024-07-02 09:41 | XMS_ITS | Encounter Summary ---
Author Organization [facility] Address [address] [place] [address] Care Team Providers Care Hospice Volunteer Coordinator Name Role Phone MilesTristenca Primary Care Provider [phone] Encounter Details Date Type Department Care Team (Late st Contact Info) Description 11/21/2021 Telephone [facility] [address] [place] [phone] Telephone Intake, Staff Social History Tobacco Use Types Packs/Day Years [...] encounter Miscellaneous Notes * Telephone Encounter - Shanel Lagunas - 11/21/2021 12:15 PM EDT PT called after today's appt with Dr. Brown and tried to schedule an in person follow up. FollowedDT and system wouldn't allow to book it. Please call patient at [phone]. documented in this encounter Plan of Treatment Upcoming Encounters Date Type Department Care Team (Late Contact Info) Description 11/18/2024 10:30 AM EDT Office Visit [facility] [address] [place] [address] Face Cleaner: Adrienne Gutiérrez MD [address] [place] [address] [phone] documented as of this encounter Visit Diagnoses Not on filedocumented in this encounter Care Teams Hospice Volunteer Coordinator Relationship Specialty Start Date End Date Bernie Aquino [address] [place] [phone] PCP - General 08/22/21 documented as of this encounter
--- OUTSIDE RECORDS SUMMARY | 2024-07-02 09:42 | XMS_ITS | Encounter Summary ---
Author Organization [facility] Address [address] [place] [address] Phone Care Team Providers Care Mold Making Plastics Sheets Supervisor Name Role Phone Unavailable Primary Care Provider Unavailabl e Encounter Details Date Type Department Care Team (Late st Contact Info) Description 01/25/2022 Telephone [facility] [address] [place] [address] Neto Cunningham MD Social History Tobacco Use Types Packs/Day Years Used Date Smoking Tobacco: Never Smokeless Tobacco: Never Alcohol Use Standard Drinks/Week Comments No 0 (1 standard drink = 0.6 oz pur e alcohol) Comments Unknown Sex and Gender Information Value Date Recorded Sex Assigned at Not on file Legal Sex Female 5:08 PM EST Gender Identity Not on file Sexual Orientation Not on file COVID-19 Exposure Response Date Recorded In the last 10 days, have yo u been in contact with someone who was confirmed or suspected to have Coronavirus/COVID-19? Unable to assess 01/24/2022 9:28 AM EDT documented as of this encounter Miscellaneous Notes * Telephone Encounter - Julee Stephens - 01/25/2022 10:03 AM EDT Pt called to inform her creat from yesterday was 1.1. She would like to know if she can still have the fluid treatment to see if it helps with her other symptoms. Please advise Thank you documented in this encounter Plan of Treatment Not on file documented as of this encounter Visit Diagnoses Not on filedocumented in this encounter
--- OUTSIDE RECORDS SUMMARY | 2024-07-02 09:42 | XMS_ITS | Encounter Summary ---
Author Organization [facility] Address [address] [place] [address] Phone Care Team Providers Care Print Production Manager Name Role Phone Unavailable Primary Care Provider Unavailabl e Encounter Details Date Type Department Care Team (Late st Contact Info) Description 01/02/2022 Telephone [facility] [address] [place] [address] Neto Cunningham MD Social History [...] suspected to have Coronavirus/COVID-19? Unable to assess 01/05/2022 3:50 PM EDT documented as of this encounter Miscellaneous Notes * Telephone Encounter - Mar Hinkle - 01/05/2022 3:26 PM EDT PT still looking for advise on this issue. Has appt 01/10 in [place] office * Telephone Encounter - Alta Young - 01/02/2022 3:37 PM EDT Please advise * Telephone Encounter - Julee Stephens - 01/02/2022 8:27 AM EDT Pt called, recently she has been havong trouble with diarrhea and constipation and jumping between the two every couple days. It can get to the point were she experiences extreme nausea, dizziness and headaches. She would like to know if there is anything she can do to help with this in order to avoid er visits. Please advise Thank you CB# [phone] documented in this encounter Plan of Treatment Not on file documented as of this encounter Visit Diagnoses Not on filedocumented in this encounter
--- OUTSIDE RECORDS SUMMARY | 2024-07-02 09:42 | XMS_ITS | Encounter Summary ---
Author Organization [facility] Address [address] [place] [address] Care Team Providers Care Compliance And Control Analyst Name Role Phone Bernie Aquino FERRYBOAT PILOT Primary Care Provider Encounter Details Date Type [...] Care Team (Late st Contact Info) Description 07/22/2024 9:00 AM EDT Appointment [facility] [address] [facility] [address] 2nd [place] [address] 09/10/2024 9:10 AM EDT Office Visit Gastroenterology - [address] [facility] [address] [facility] [address] [place] [phone] Leif Burciaga PA [address] [facility] [address] [place] [phone] documented as of this encounter Visit Diagnoses [...] Rule-Out 05/04/2024 05/04/2024 05/04/2024 5:58 PM EST documented as of this encounter Care Teams Compliance And Control Analyst Relationship Specialty Start Date End Date Bernie Aquino NP [address] [facility] [place] [address] PCP - General Family Medicine 10/05/21 documented as of this encounter
--- OUTSIDE RECORDS SUMMARY | 2024-07-02 09:42 | XMS_ITS | Continuity of Care Document ---
Author Organization [facility] David [facility] Address [address] [place] [address]- Support Name Relationship Address Phone HEMANT LEE [...] Unknown U navailable Care Team Providers Care Suppression Crew Leader Name Role Phone Miles OTOOLE, Bernie Hardy Primary Care Physician Encounter [facility] Date(s): 05/09/24 - 06/08/24 [facility] Adult [address] [place] [address]- Encounter Type: Triage Allergies, Adverse Reactions, Alerts [...] (oldterm) 8 03/14/09 Given 1Result Comment: [09/19/2017] [id number] 2Result Comment: [02/13/2018] [id number] 3Result Comment: [02/08/2017] [facility] [id number] 4Result Comment: [01/24/2013] ORDERRED BY [...] Maintenance, 07/09/23 2:12:00 PM EST, [facility], 163, cm, 06/06/23 7:29:00 EST, [...] EDT, Route to Pharmacy Electronically, [facility], Partial fill upon patient request [...] EST, Route to Pharmacy Electronically, [facility], 163, cm, 03/07/23 8:42:00 EDT, [...] EDT, Route to Pharmacy Electronically, [facility], 163, cm, 11/22/20 12:47:00 EDT, [...] EST, Route to Pharmacy Electronically, [facility], 163, cm, 03/07/24 8:07:00 EDT, [...] 60.0 Unit: capsule Repeat number: 7 ondansetron 8 mg oral tablet 1 tablet = 8 mg, By Mouth, 2 times a day, for 7 days, # 14 tablet, 1 Refills, Acute 06/13/24 11:09:00 AM EST, 05/30/24 11:09:00 AM EST, [facility], Partial fill upon patient request if the prescription is for a schedule II opioid drug., 163, cm, 05/16/24 9:17:00 EST, Height Start Date: 05/30/24 Stop Date: 06/13/24 Status: Ordered Quantity: 14.0 Unit: tablet Repeat number: 2 Oxcarbazepine See Instructions, 900mg By Mouth twice a day, 0 Refills, Maintenance, 04/25/24 10:41:00 AM EST, Partial fill upon patient request if the prescription is for a schedule II opioid drug. Start Date: 04/25/24 Status: Ordered Repeat number: 1 Pen [place], 31 G x 5 mm BD Ultra [...] Refills, 09/07/23 10:21:00 AM EDT, [facility], 163, cm, 09/06/23 10:02:00 EDT, [...] 04/25/24 10:42:00 AM EST, Solution, [facility], Partial fill upon patient request [...] MD Member Role: Lifetime Consulting Physician Address: [address] [place] [address] [address] [facility] [address]- Telecom: Name: Oz SHERWOOD, Lore Position: [facility] RN Member Role: Primary Care Nurse Name: Miles OTOOLE, Bernie Hardy Position: [facility] PCO Associate Professional Member Role: PCP Address: [address] [place] [address]- [place] Telecom: Name: Gregg Hardy MD Position: [facility] Pulmonary MD Member Role: Lifetime Consulting Physician Address: [address] [place] [phone]- [place] Telecom: Care Team Related Persons Name: ONDINA [...]
--- OUTSIDE RECORDS SUMMARY | 2024-07-02 09:42 | XMS_ITS | Continuity of Care Document ---
Author Organization [facility] Address [address] [place] [address]- Support Name Relationship Address Phone HEMANT LEE [...] Unknown U navailable Care Team Providers Care Co Founder And Cto Name Role Phone Miles OTOOLE, Bernie Hardy Primary Care Physician [phone] Encounter [facility] Date(s): 05/30/24 - 06/29/24 [facility] Adult [address] [place] [address]- Encounter Type: Triage Allergies, Adverse Reactions, Alerts [...] (oldterm) 8 03/14/09 Given 1Result Comment: [09/19/2017] [id number] 2Result Comment: [02/13/2018] [id number] 3Result Comment: [02/08/2017] [facility] [id number] 4Result Comment: [01/24/2013] ORDERRED BY [...] Maintenance, 07/09/23 2:12:00 PM EST, [facility], 163, cm, 06/06/23 7:29:00 EST, [...] EDT, Route to Pharmacy Electronically, [facility], Partial fill upon patient request [...] EST, Route to Pharmacy Electronically, [facility], 163, cm, 03/07/23 8:42:00 EDT, [...] EDT, Route to Pharmacy Electronically, [facility], 163, cm, 11/22/20 12:47:00 EDT, [...] 7:45:00 AM EST, Route to Pharmacy Electronically, [facility], 163, cm, 03/07/24 8:07:00 EDT, Height Start Date: 04/08/24 Status: Ordered Quantity: 90.0 Unit: tablet Repeat number: 2 omeprazole 40 mg oral enteric coated capsule 1 capsule = 40 mg, By Mouth, 2 times a day, # 60 capsule, 6 Refills, Maintenance, 10/26/22 11:06:00 AM EDT, [facility], Partial fill upon patient request [...] 04/25/24 Status: Ordered Repeat number: 1 Pen [place], 31 G x 5 mm BD Ultra [...] Member Role: Lifetime Consulting Physician Address: [address] [place] [address] [address] [place] [address]- [place] Telecom: Name: Lore Clinton RN Position: [facility] AMB Nurse Member Role: Primary Care Nurse Name: Chris Rosenbaum MD Position: [facility] BRIM SETTER MD Member Role: Lifetime BRIM SETTER Physician Address: [address] [place] [address] [place] [address]- [place] Telecom: Name: Bernie Aquino NP Position: [facility] PCO Associate Professional Member Role: PCP Address: [address] [place] [address]- [place] Telecom: Name: Gregg Hardy MD Position: [facility] Pulmonary MD Member Role: Lifetime Consulting Physician Address: [address] [place] [address]- [place] Telecom: Care Team Related Persons Name: ONDINA [...]
--- OUTSIDE RECORDS SUMMARY | 2024-07-02 09:42 | XMS_ITS | Continuity of Care Document ---
Author Organization [facility] David [facility] Address [address] [place] [address]- Support Name Relationship Address Phone HEMANT LEE [...] Unknown U navailable Care Team Providers Care Disease Case Manager Name Role Phone Miles OTOOLE, Bernie Hardy Primary Care Physician Encounter [facility] Date(s): 05/13/24 - 06/15/24 [facility] Adult [address] [place] [address]- Attending Physician: Bernie Aquino NP Encounter Type: Pre Office Visit Allergies, Adverse Reactions, Alerts Substance [...] (oldterm) 8 03/14/09 Given 1Result Comment: [09/19/2017] [id number] 2Result Comment: [02/13/2018] [id number] 3Result Comment: [02/08/2017] [facility] [id number] 4Result Comment: [01/24/2013] ORDERRED BY [...] EDT, Route to Pharmacy Electronically, [facility], 163, cm, 11/22/20 12:47:00 EDT, [...] EST, Route to Pharmacy Electronically, [facility], 163, cm, 03/07/24 8:07:00 EDT, [...] 04/25/24 Status: Ordered Repeat number: 1 Pen [place], 31 G x 5 mm BD Ultra [...] Personnel Name: Marisa CHAIDEZ, Neto Osorio Position: [facility] Renal MD Member Role: Lifetime Consulting Physician Address: [address] [place] [address] [address] [facility] [place] [address]- [place] Telecom: Name: Oz SHERWOOD, Lore Position: [facility] RN Member Role: Primary Care Nurse Name: Miles OTOOLE, Bernie Hardy Position: [facility] PCO Associate Professional Member Role: PCP Address: [address] [place] [phone]- [place] Telecom: Name: Gregg Hardy MD Position: [facility] Pulmonary MD Member Role: Lifetime Consulting Physician Address: [address] [place] [address]- [place] Telecom: Care Team Related Persons Name: ONDINA SINGLETARY Name: BLAIRE JACOB Insurance Providers Guarantor name: HEMANT LEE Health Plan Information #: 1 Payer: OUT OF STATE PLANS Member Number: [id number] Policy Number: NA Group Number: NA Health Plan Information #: 3 Payer: [place] Member Number: [id number] Policy Number: NA Group Number: NA Health Plan Information #: 2 Payer: MEDICARE PART B OUTPT Member Number: [id number] Policy Number: NA Group Number: NA
--- OUTSIDE RECORDS SUMMARY | 2024-07-02 09:42 | XMS_ITS | Clinical Summary ---
Author Organization [facility] Address [address] [place] [address] Care Team Providers Care Director Of Operations Name Role Phone Bernie Aquino ANGIOGRAPHY NURSE Primary Care Provider [phone] Allergies Active Allergy Reactions Criticality Noted Date Comments Adhesive Tape-Silicones Rash Low 03/15/2024 Amoxicillin-Pot Clavulanate Other Medium 07/01/2021 Other Reaction(s): increases sx Other reaction(s): Other (see comments) makes sicker makes sicker makes sicker makes sicker Other reaction(s): Other (see comments) makes sicker makes sicker makes sicker Azithromycin Other Medium 07/01/2021 Other Reaction(s): increases sx's Other reaction(s): Other (see comments) Diarrhea Diarrhea Diarrhea Diarrhea Other reaction(s): Other (see comments) Diarrhea Diarrhea Diarrhea Meperidine Nausea And Vomiting High 03/15/2024 Fluticasone Headache Low 03/15/2024 Morphine Nausea And Vomiting High 03/15/2024 Nsaids (Non-Steroidal Anti-Inflammatory Drug) Other High 04/10/2024 CKD Metoclopramide Hcl Vision Problem Medium 03/15/2024 Medications oxyCODONE (ROXICODONE) 5 mg immediate release tabletIndications: Other acute postprocedural pain Take 1 tablet (5 mg total) by mouth every 6 (six) hours if needed for severe pain. Max Daily Amount: 20 mg 15 tablet 04/10/20 24 Active Additional Information Patient not taking.Reported on 06/13/2024 cyclobenzaprine (FLEXERIL) 10 mg tablet Take 1 tablet (10 mg total) by mouth 2 (two) times a day if needed for muscle spasms for up to 10 days. 20 tablet 05/04/20 24 Active aMILoride (MIDAMOR) 5 mg tablet Take 2 tablets (10 mg total) by mouth 1 (one) time each day. Active atorvastatin (LIPITOR) 10 mg tablet Take 4 tablets (40 mg total) by mouth at bedtime. 02/11/20 21 Active benztropine (COGENTIN) 1 mg tablet Take 1 tablet (1 mg total) by mouth. Active cetirizine (ZyrTEC) 10 mg tablet Take 1 tablet (10 mg total) by mouth 1 (one) time each day. 07/14/19 22 Active Trulicity 1.5 mg/0.5 mL pen injector injection Inject 0.5 mL (1.5 mg total) under the skin. 04/25/20 24 Active famotidine (PEPCID) 20 mg tablet Take 1 tablet (20 mg total) by mouth. 03/25/20 22 Active gabapentin (NEURONTIN) 300 mg capsule Take 2 capsules (600 mg total) by mouth 3 (three) times a day. 04/25/20 24 Active hydrOXYzine HCL (ATARAX) 25 mg tablet Take 1 tablet (25 mg total) by mouth 2 (two) times a day. 04/21/20 24 Active topiramate (TOPAMAX) 50 mg tablet Take 1 tablet (50 mg total) by mouth 2 (two) times a day. Active montelukast (SINGULAIR) 10 mg tablet Take 1 tablet (10 mg total) by mouth at bedtime. Active OXcarbazepine (TRILEPTAL) 300 mg tablet Take 3 tablets (900 mg total) by mouth 2 (two) times a day. Active norethindrone (CITLALY,KATHY,HEAT HER,MICRONOR) 0.35 mg tablet Take 1 tablet (0.35 mg total) by mouth 1 (one) time each day. Active metFORMIN (GLUMETZA) 1,000 mg 24 hr tablet Take 1 tablet (1,000 mg total) by mouth 1 (one) time each day with dinner. Do not crush, chew, or split. Active venlafaxine (EFFEXOR) 75 mg tablet Take 1 tablet (75 mg total) by mouth 2 (two) times a day. Active magnesium oxide (MAG-OX) 400 mg magnesium tablet Take 1 tablet (400 mg total) by mouth 1 (one) time each day. Active ondansetron (ZOFRAN) 4 mg tablet Take 1 tablet (4 mg total) by mouth every 8 (eight) hours if needed for nausea or vomiting. Active lidocaine (LMX) 4 % cream Apply topically 4 (four) times a day if needed for mild pain. 30 g 05/10/20 24 025 Active ondansetron ODT (ZOFRAN-ODT) 4 mg disintegrating tablet Let 1 tablet dissolve under the tongue three times daily as needed for nausea or vomiting. 10 tablet 05/20/19 25 Active Additional Information Patient taking differently: 8 mg, Let 1 tablet dissolve under the tongue three times daily as needed for nausea or vomiting., Reported on 06/11/2024 ferrous gluconate (FERGON) 324 mg (38 mg iron) tabletIndications: Low iron Take 1 tablet (324 mg total) by mouth 1 (one) time each day. 30 each 2 06/09/19 25 025 Active hydrOXYzine pamoate (VISTARIL) 50 mg capsule Take 1 capsule (50 mg total) by mouth. 01/11/20 16 Active melatonin 10 mg tablet Take 1 tablet (10 mg total) by mouth. with dinner Active Xolair 300 mg/2 mL syringe 05/29/19 25 Active omeprazole (PriLOSEC) [address] capsule Take 1 capsule (40 mg total) by mouth 2 (two) times a day. Active predniSONE (DELTASONE) 20 mg tablet See Instructions, 1-2 tablet By Mouth Daily, PRN, 0 Refills, Maintenance, 04/25/24 10:42:00 AM EST, Partial fill upon patient request if the prescription is for a schedule II opioid drug. 08/29/19 22 Active rizatriptan (MAXALT) 10 mg tablet TAKE ONE TABLET BY MOUTH NEEDED FOR MIGRAINE MAY REPEAT IN 2 HOURS IF UNRESOLVED, DO NOT EXCEED 30MG IN 24 HOURS Active colchicine (COLCRYS) 0.6 mg tablet Take 3 tablets (1.8 mg total) by mouth 1 (one) time each day. Active docusate sodium (COLACE) 100 mg capsule take one capsule by mouth two times a day as needed for constipation Active EPINEPHrine (EPIPEN) 0.3 mg/0.3 mL injection Inject 0.3 mL (0.3 mg total) into the thigh. 01/15/20 13 Active fluticasone-umecli dinium-vilanterol (Trelegy Ellipta) 100-62.5-25 mcg inhaler Inhale 1 puff (100 mcg total) by mouth. 09/03/19 22 Active Emgality Pen 120 mg/mL injection pen INJECT 1ML UNDER THE SKIN EVERY 28 DAYS Active HYDROmorphone (DILAUDID) 2 mg tablet 300 tablets (600 mg total) 3 (three) times a day. 01/25/20 24 Active insulin aspart (NovoLOG Flexpen U-100 Insulin) 100 unit/mL (3 mL) injection pen 06/12/19 19 Active Combivent Respimat 20-100 mcg/actuation inhaler INHALE 1 PUFF UP TO FOUR TIMES A DAY IF NEEDED Active lamoTRIgine (LaMICtal) 25 mg tablet Take 2 tablets (50 mg total) by mouth 1 (one) time each day in the morning. 05/16/19 25 Active lamoTRIgine (LaMICtal XR) 200 mg tablet extended release 24hr 24 hr tablet Take 1 tablet (200 mg total) by mouth. at bedtime Active levothyroxine (SYNTHROID, LEVOTHROID) 50 mcg tablet TAKE ONE TABLET BY MOUTH EVERY DAY SUNDAY TO SUNDAY AND 1.5 TABLETS ON SUNDAY Active loperamide (IMODIUM) 2 mg capsule Take 1 capsule (2 mg total) by mouth. 01/03/20 24 Active hepatitis B immune globulin 220 unit/mL solution 20 GRAMS EVERY 3 WEEKS, 0 Refills, Maintenance, 05/11/21 10:18:00 EST, Partial fill upon patient request if the prescription is for a schedule II opioid drug. 05/11/20 21 Active levoFLOXacin (LEVAQUIN) 500 mg tablet Take 1 tablet (500 mg total) by mouth 1 (one) time each day. for 7 days 08/22/19 24 Active butalbital-acetami nophen-caffeine (FIORICET, ESGIC) 50-325-40 mg per tablet Take 1 tablet by mouth every 4 (four) hours if needed for headaches. Active polyethylene glycol (COLYTE) 240-22.72-6.72 -5.84 gram solutionIndication s:Anemia, unspecified type Take 4,000 mL by mouth 1 (one) time for 1 dose. Drink 8 oz every 10-15 minutes until solution is gone 4000 mL 06/19/19 25 025 Active Problems Problem Noted Date Diagnosed Date Type 2 diabetes mellitus without complication Asthma 06/27/2024 Hypothyroidism 06/27/2024 Chronic renal impairment, stage 3 (moderate) Elevated alkaline phosphatase level 03/21/2024 Assessment & Plan (06/13/2024 5:01 PM EST): Orders: Hepatic function panel; Future CVID (common variable immunodeficiency) 03/10/20 24 Encounters Date Type Department Care Team Description 07/01/2024 8:57 AM EST Hospital Encounter [facility] [address] [phone] Deandre Schroeder MD CVID (common variable immunodeficiency) (CMS/HCC) (Primary Dx) 06/30/2024 Telephone Gastroenterology - [address] [phone] Manda Seals MD 06/27/2024 7:41 AM EST Anesthesia Event [facility] Endoscopy [address] [place] [address] Silvia Brooks MD Couture, Alison, CRNA 06/27/2024 6:49 AM EST - 06/27/2024 11:59 PM EST Hospital Encounter [facility] Endoscopy [address] [place] [address] Manda Seals MD Couture, Alison, CRNA Kriz, Petra, MD Anemia; Elevated fecal calprotectin Discharge Disposition: Home or Self Care 06/24/2024 Telephone Gastroenterology - [address] [phone] Merly Lyons [place] 06/20/2024 Telephone Gastroenterology - [address] [place] [address] Leif Burciaga PA 06/20/2024 Telephone Gastroenterology - [address] [place] [phone] Manda Seals MD 06/19/2024 Telephone Gastroenterology - [address] [place] [phone] Manda Seals MD 06/18/2024 Telephone Gastroenterology - [address] [place] [phone] Leif Burciaga PA 06/17/2024 Telephone Gastroenterology - [address] [facility] [address] [place] [phone] Merly Lyons [place] 06/13/2024 3:24 PM EST - 06/13/2024 11:59 PM EST Hospital Encounter [facility] Xray [address] [place] [address] Nausea; Generalized abdominal pain; Change in bowel habits Discharge Disposition: Home or Self Care 06/13/2024 2:20 PM EST Office Visit Gastroenterology - [address] [facility] [address] [phone] Leif Burciaga PA Generalized abdominal pain (Primary Dx); Rectal bleeding; Nausea; Iron deficiency; Elevated alkaline phosphatase level; Change in bowel habits 06/11/2024 8:10 AM EST - 06/11/2024 11:59 PM EST Hospital Encounter [facility] [address] [place] [address] Deandre Schroeder MD CVID (common variable immunodeficiency) (CMS/HCC) (Primary Dx) Discharge Disposition: Home or Self Care 06/09/2024 Telephone Gastroenterology - [address] [facility] [address] [place] [phone] Manda Seals MD 06/05/2024 7:41 AM EST - 06/05/2024 9:40 AM [facility] Emergency [address] [place] [address] Mitesh Boyd MD Acute nonintractable headache, unspecified headache type (Primary Dx) Discharge Disposition: Home or Self Care 05/30/2024 Telephone Gastroenterology - [address] [phone] Tanika [place] 05/23/2024 Telephone Gastroenterology - [address] [place] [phone] Tanika [place] 05/20/2024 3:32 AM EST - 05/20/2024 7:27 AM [facility] Emergency [address] [place] [phone] Ayush Reyes MD Generalized abdominal pain (Primary Dx); Nausea and vomiting, unspecified vomiting type Discharge Disposition: Home or Self Care 05/10/2024 4:46 AM EST - 05/10/2024 10:00 AM [facility] Emergency [address] [place] [phone] Mitesh Boyd MD Acute right-sided thoracic back pain (Primary Dx) Discharge Disposition: Home or Self Care 05/05/2024 8:21 AM EST - 05/05/2024 11:59 PM [facility] [address] [place] [phone] CVID (common variable immunodeficiency) (CMS/HCC) (Primary Dx) Discharge Disposition: Home or Self Care 05/04/2024 12:43 PM EST - 05/04/2024 6:50 PM [facility] Emergency [address] [place] [phone] Yoel Phelps MD Chest wall pain (Primary Dx) Discharge Disposition: Home or Self Care 04/29/2024 2:37 AM EST - 04/29/2024 9:06 AM [facility] Emergency [address] [place] [phone] Ayush Reyes MD Cauchon, Matthew C, DO Other migraine without status migrainosus, not intractable (Primary Dx) Discharge Disposition: Home or Self Care 04/28/2024 Telephone Gastroenterology - [address] [place] [phone] Leif Burciaga PA 04/25/2024 3:48 PM EST - 04/25/2024 11:59 PM EST Hospital Encounter [facility] MRI [address] [place] [phone] Elevated alkaline phosphatase level; Elevated ALT measurement Discharge Disposition: Home or Self Care 04/16/2024 Telephone Gastroenterology - [address] [place] [phone] Manda Seals MD 04/14/2024 Telephone Gastroenterology - [address] [place] [phone] Tanika [place] 04/11/2024 Telephone Gastroenterology - [address] [phone] Leif Burciaga PA 04/11/2024 Telephone Gastroenterology - [address] [place] [phone] Manda Seals MD 04/10/2024 7:52 PM EST - 04/10/2024 9:24 PM EST Emergency [facility] Emergency [address] [place] [address] Right upper quadrant abdominal pain (Primary Dx) Discharge Disposition: Home or Self Care 04/10/2024 7:19 AM EST - 04/10/2024 10:12 AM EST Emergency [facility] Emergency [address] [place] [address] Other acute postprocedural pain (Primary Dx) Discharge Disposition: Home or Self Care 04/09/2024 8:34 AM EST - 04/09/2024 11:59 PM EST Hospital Encounter [facility] Ultrasound [address] [place] [address] Elevated alkaline phosphatase level Discharge Disposition: Home or Self Care 04/08/2024 8:30 AM EST - 04/08/2024 11:59 PM EST Hospital Encounter [facility] 271 [facility] 2nd [place] [address] CVID (common variable immunodeficiency) (CMS/HCC) (Primary Dx) Discharge Disposition: Home or Self Care from Last 3 Months Surgical History Surgery Date Site/Laterality Comments COLONOSCOPY 08/12/2017 - 09/10/2017 10 yr ESOPHAGOGASTRODUODENOSCOPY 10/13/2023 - 11/11/2023 nl/fundic gland polyps ESOPHAGOGASTRODUODENOSCOPY 07/12/2021 - 08/11/2021 fundic gland polyps ESOPHAGOGASTRODUODENOSCOPY 06/14/2012 - 07/11/2012 mild chronic esophagitis on bx SECTION, LOW TRANSVERSE THYROID LOBECTOMY Right US, SOFT TISSUE HEAD OR NECK (THYROID,PARATHYROID,PAROTID) subtotal parathyroidectomy Medical History Medical History Date Comments Diabetes mellitus (CMS/HCC) Diabetes insipidus, nephrogenic (CMS/HCC) CVID (common variable immunodeficiency) (CMS/HCC ) Hypothyroid Asthma Hypoparathyroidism (CMS/HCC) Familial Mediterranean fever (CMS/HCC) Chronic kidney disease CVS disease Bipolar 1 disorder (CMS/HCC) Migraines WALTERS (nonalcoholic steatohepatitis) Social History Tobacco Use Types Packs/Day Years [...] Orientation Straight 04/10/2024 9: 15 PM EST Obstetrics History Last Filed Vital Signs Vital Sign Reading Time Taken Comments Blood Pressure 123/90 07/01/2024 9:17 AM EST Pulse 94 07/01/2024 9:17 AM EST Temperature 36.5 ??C (97.7 ??F) 07/01/2024 9:17 AM ES T Respiratory Rate 18 07/01/2024 9:17 AM EST Oxygen Saturation 99% 07/01/2024 9:17 AM EST Inhaled Oxygen Concentration - - Weight 79.2 kg (174 lb 9.6 oz) 07/01/2024 9:17 A M EST Height 162.6 cm (5' 4 ) 06/27/2024 7:18 AM EST Body Mass Index 29.97 06/27/2024 7:18 AM EST Plan of Treatment Upcoming Encounters Date Type Department Care Team (Late st Contact Info) Description 07/22/2024 9:00 AM EDT Appointment [facility] [address] [place] [phone] 09/10/2024 9:10 AM EDT Office Visit Gastroenterology - [address] [facility] [address] [place] [phone] Leif Burciaga PA [address] [place] [address] Health Maintenance Due Date Last Done Comments Breast Cancer Screening 1975 COVID-19 Vaccine (#1) 10/27/1980 Diabetes: Annual Foot Exam 10/27/1985 Diabetes: Annual Retina Eye Exam 10/27/1985 Hepatitis A Vaccines (1 of 2 - Risk 2-dose series) 10/27/1994 Hepatitis B Vaccines (1 of 3 - 19+ 3-dose series) 10/27/1994 Cervical Cancer Screening: Pap Smear 10/27/1996 Pneumococcal Vaccine: Pediatrics (0 to 5 Years) and At-Risk Patients (6 to 64 Years) (3 of 3 - PPSV23, PCV20 or PCV21) 12/19/2014 05/13/2014, 12/19/2009 Cholesterol Screening (Lipid Panel) 07/22/2021 Depression Screening 07/22/2021 HIV Screening 07/22/2021 Medicare Annual Wellness Visit 07/22/2021 Social Influencers of Health Screening 07/22/2021 Influenza Vaccine (#1) 2024 9, 02/13/2018, 02/08/2017, Additional history exists Diabetes: Annual Urine Albumin-Creatinine Ratio (uACR) 03/15/2024 Diabetes: Blood Sugar Control Test (HGBA1C) 03/15/2024 Diabetes: Annual GFR (Glomerular Filtration Rate) 06/04/2025 06/04/2024, 05/19/2024, 05/09/2024, Additional history exists DTaP,Tdap,and Td Vaccines (4 - Td or Tdap) 07/05/2032 07/05/2022, 09/19/2017, 12/08/2007 Colorectal Cancer Screening: Colonoscopy 06/27/2034 06/27/2024, 08/30/2017 Hepatitis C Screening Completed 05/29/2024 HIB Vaccines Aged Out No longer eligi ble based on patient's age to complete this topic HPV Vaccines Aged Out No longer eligi ble based on patient's age to complete this topic IPV Vaccines Aged Out No longer eligi ble based on patient's age to complete this topic MMR Vaccines Aged Out No longer eligi ble based on patient's age to complete this topic Meningococcal ACWY Vaccine Aged Out N o longer eligible based on patient's age to complete this topic Meningococcal B Vacine Aged Out No lo nger eligible based on patient's age to complete this topic RSV Immunization Patients Under 20 months Aged Out No longer eligible based on patient's age to complete this topic Varicella Vaccines Aged Out No longer eligible based on patient's age to complete this topic Medical Devices Implanted Type Area Test Baker Device Identifier Shelf Expiration Date Model / Serial / Lot Sponge Surgifoam Gel 12 X 7mm - [id number] Implanted:Qty: 1 on 04/09/2024 by Daniele Reeder MD at [facility] Hemostasis N/A: Abdomen [facility] [employer] [id number] 1972 / / Procedures Procedure Name Priority Date/Time Associated Diagnosis Comments COLONOSCOPY Routine 06/27/2024 8:07 AM EST Anemia Elevated fecal calprotectin TISSUE EXAM Routine 06/27/2024 7:57 AM EST Anemia Elevated fecal calprotectin EXTERNAL ENDOSCOPY REPORT Routine 06/16/2024 1:13 PM EST CALPROTECTIN, STOOL Routine 06/14/2024 7 :51 AM EST Rectal bleeding XR ABDOMEN 1 VIEW Routine 06/13/2024 3:3 8 PM EST Nausea Generalized abdominal pain Change in bowel habits HEPATIC FUNCTION PANEL Routine 3:08 PM EST Nausea Elevated alkaline phosphatase level CT HEAD WO CONTRAST STAT 06/05/2024 8 :53 AM EST ECG ANNOTATED 06/05/2024 ECG 12-LEAD STAT 06/04/2024 9:37 PM EST CBC WITH AUTO DIFFERENTIAL STAT 06/04/2024 9:30 PM EST MAGNESIUM STAT 06/04/2024 9:30 PM EST BASIC METABOLIC PANEL STAT 06/04/2024 9:30 PM EST CBC AND DIFFERENTIAL STAT 06/04/2024 9:30 PM EST XR CHEST 2 VIEWS STAT 05/20/2024 6:17 AM EST MCHUGH URINE CULTURE TUBE STAT 05/19/2024 5:19 PM EST URINALYSIS WITH REFLEX MICROSCOPIC AND CULTURE STAT 05/19/2024 5:19 PM EST URINALYSIS WITH REFLEX MICROSCOPIC AND CULTURE STAT 05/19/2024 5:19 PM EST CULTURE URINE STAT 05/19/2024 5:19 PM EST CBC WITH AUTO DIFFERENTIAL STAT 05/19/2024 5:18 PM EST LIPASE STAT 05/19/2024 5:18 PM EST COMPREHENSIVE METABOLIC PANEL STAT 05/19/2024 5:18 PM EST CBC AND DIFFERENTIAL STAT 05/19/2024 5:18 PM EST XR SHOULDER 2+ VIEWS RIGHT STAT 05/10/2024 8:24 AM EST CBC WITH AUTO DIFFERENTIAL STAT 05/09/2024 10:00 PM EST BASIC METABOLIC PANEL STAT 05/09/2024 10:00 PM EST CBC AND DIFFERENTIAL STAT 05/09/2024 10:00 PM EST RESPIRATORY VIRUS PANEL MOLECULAR STUDY STAT 05/04/2024 5:[address] ANGIO CHEST WO AND/OR W CONTRAST STAT 05/04/2024 3:45 PM EST Chest wall pain ECG 12-LEAD STAT 05/04/2024 2:40 PM EST XR CHEST 2 VIEWS STAT 05/04/2024 1:34 PM EST ECG 12-LEAD STAT 05/04/2024 1:21 PM EST CBC WITH AUTO DIFFERENTIAL STAT 05/04/2024 1:13 PM EST B-TYPE NATRIURETIC PEPTIDE STAT 05/04/2024 1:13 PM EST MAGNESIUM STAT 05/04/2024 1:13 PM EST LIPASE STAT 05/04/2024 1:13 PM EST COMPREHENSIVE METABOLIC PANEL STAT 05/04/2024 1:13 PM EST CBC AND DIFFERENTIAL STAT 05/04/2024 1:13 PM EST TROPONIN I HIGH SENSITIVITY STAT 05/04/2024 1:13 PM EST ECG ANNOTATED 05/04/2024 ECG 12-LEAD STAT 04/29/2024 3:07 AM EST POCT GLUCOSE BLOOD Routine 04/29/2024 12 :01 AM EST ECG ANNOTATED 04/29/2024 POC , URINE DIAGNOSTIC STAT 04/28/2024 6:19 PM EST CBC WITH AUTO DIFFERENTIAL STAT 04/28/2024 6:02 PM EST MAGNESIUM STAT 04/28/2024 6:02 PM EST BASIC METABOLIC PANEL STAT 04/28/2024 6:02 PM EST CBC AND DIFFERENTIAL STAT 04/28/2024 6:02 PM EST MR ABDOMEN WO AND W CONTRAST MRCP Routine 04/25/2024 7:43 PM EST Elevated alkaline phosphatase level Elevated ALT measurement COMPLETE BLOOD COUNT STAT 04/10/2024 8:39 PM EST BASIC METABOLIC PANEL STAT 04/10/2024 8:39 PM EST ECG 12-LEAD STAT 04/10/2024 8:[address] CHEST/ABDOMEN/PELVIS W CONTRAST STAT 04/10/2024 8:39 AM EST ECG 12-LEAD STAT 04/10/2024 7:28 AM EST TROPONIN I HIGH SENSITIVITY STAT 04/10/2024 7:24 AM EST XR CHEST 2 VIEWS STAT 04/10/2024 6:30 AM EST POC , URINE DIAGNOSTIC STAT 04/10/2024 6:21 AM EST CBC WITH AUTO DIFFERENTIAL STAT 04/10/2024 6:07 AM EST B-TYPE NATRIURETIC PEPTIDE STAT 04/10/2024 6:07 AM EST MAGNESIUM STAT 04/10/2024 6:07 AM EST LIPASE STAT 04/10/2024 6:07 AM EST COMPREHENSIVE METABOLIC PANEL STAT 04/10/2024 6:07 AM EST CBC AND DIFFERENTIAL STAT 04/10/2024 6:07 AM EST TROPONIN I HIGH SENSITIVITY STAT 04/10/2024 6:07 AM EST ECG 12-LEAD STAT 04/10/2024 6:00 AM EST ECG ANNOTATED 04/10/2024 ECG ANNOTATED 04/10/2024 TISSUE EXAM Routine 04/09/2024 11:19 AM EST Elevated alkaline phosphatase level US BX NDL LIVER PERC Routine 04/09/2024 11:18 AM EST Elevated alkaline phosphatase level PROTHROMBIN TIME WITH INR STAT 04/09/2024 9:44 AM EST CBC WITH AUTO DIFFERENTIAL Routine 04/01/2024 11:00 AM EST Elevated alkaline phosphatase level Pre-procedure lab exam Elevated ALT measurement Hepatitis C-REACTIVE PROTEIN Routine 04/01/2024 11 :00 AM EST Bipolar II disorder (CMS/HCC) Drug therapy Periodic disease (CMS/HCC) OXCARBAZEPINE LEVEL Routine 04/01/2024 1 1:00 AM EST Bipolar II disorder (CMS/HCC) Drug therapy LITHIUM LEVEL Routine 04/01/2024 11:00 AM EST Bipolar II disorder (CMS/HCC) Drug therapy CBC AND DIFFERENTIAL Routine 04/01/2024 11:00 AM EST Elevated alkaline phosphatase level Pre-procedure lab exam Elevated ALT measurement Hepatitis ACTIVATED PARTIAL THROMBOPLASTIN TIME Routine 04/01/2024 11:00 AM EST Elevated alkaline phosphatase level Pre-procedure lab exam Elevated ALT measurement Hepatitis PROTHROMBIN TIME WITH INR Routine 04/01/2024 11:00 AM EST Elevated alkaline phosphatase level Pre-procedure lab exam Elevated ALT measurement Hepatitis from Last 3 Months Results * COLONOSCOPY Anesthesia - MAC; [facility] ENDOSCOPY (06/27/2024 8:07 AM EST) Anatomical Region Laterality Modality Endoscopy 06/27/2024 7:44 AM EST Impressions 06/27/2024 8:09 AM EST - The examined portion of the ileum was normal. ? - Normal mucosa in the entire examined colon. Biopsied. ? - Internal hemorrhoids. Recommendation: ?- Await pathology results. ? - Repeat colonoscopy in 10 years for screening ? purposes. Narrative 06/27/2024 8:09 AM EST [facility] GI Patient Name: Meredith Garcia Procedure Date: 06/27/2024 7:44 AM Date of : 1975 Age: 48 Gender: Female Note Status: Finalized Attending MD: Manda Seals MD, Procedure Date No Time: 06/27/2024 Procedure: ? Colonoscopy Indications: ? Diarrhea Providers: ? Manda Seals MD Referring MD: ?Bernie Aquino NP Medicines: ? Propofol per Anesthesia Complications: ? No immediate complications. Estimated Blood Loss: ? Estimated blood loss: none. Procedure: ? Pre-Anesthesia Assessment: ? - ASA Grade Assessment: III - A patient with severe ? systemic disease. ? After I obtained informed consent, the scope was ? passed under direct vision. Throughout the procedure, ? the patient's blood pressure, pulse, and oxygen ? saturations were monitored continuously.The Olympus ? Pediatric Colonoscope was introduced through the anus ? and advanced to the terminal ileum. The colonoscopy ? was performed without difficulty. The patient ? tolerated the procedure well. The quality of the bowel ? preparation was good. Findings: ?The perianal and digital rectal examinations were ? normal. ? The terminal ileum appeared normal. ? Normal mucosa was found in the entire colon. Biopsies ? were taken with a cold forceps for histology. ? Internal hemorrhoids were found during retroflexion. ? The hemorrhoids were Grade I (internal hemorrhoids ? that do not prolapse). Procedure Code(s): ? --- Professional --- ? 15328, Colonoscopy, flexible; with biopsy, single or ? multiple Diagnosis Code(s): ? --- Professional --- ? R19.7, Diarrhea, unspecified CPT copyright 2020 [employer]. All rights reserved. The codes documented in this report are preliminary and upon cleaner review may be revised to meet current compliance requirements. Manda Seals MD 06/27/2024 8:09:30 AM This report has been signed electronically.Manda Seals MD Number of Addenda: 0 Note Initiated On: 06/27/2024 7:44 AM Scope In: Scope Out: ? Endoscopy Department at [facility] - [address] [place] [address], ? [place] [id number] Procedure Note Manda Seals MD - 06/27/2024 [facility] GI Patient Name: Meredith Garcia Procedure Date: 06/27/2024 7:44 AM Date of : 1975 Age: 48 Gender: Female Note Status: Finalized Attending MD: Manda Seals MD, Procedure Date No Time: 06/27/2024 Procedure: Colonoscopy Indications: Diarrhea Providers: Manda Seals MD Referring MD: Bernie Aquino NP Medicines: Propofol per Anesthesia Complications: No immediate complications. Estimated Blood Loss: Estimated blood loss: none. Procedure: Pre-Anesthesia Assessment: - ASA Grade Assessment: III - A patient with severe systemic disease. After I obtained informed consent, the scope was passed under direct vision. Throughout theprocedure, the patient's blood pressure, pulse, and oxygen saturations were monitored continuously.The Olympus Pediatric Colonoscope was introduced through theanus and advanced to the terminal ileum. The colonoscopy was performed without difficulty. The patient tolerated the procedure well. The quality of thebowel preparation was good. Findings: The perianal and digital rectal examinations were normal. The terminal ileum appeared normal. Normal mucosa was found in the entire colon.Biopsies were taken with a cold forceps for histology. Internal hemorrhoids were found duringretroflexion. The hemorrhoids were Grade I (internal hemorrhoids that do not prolapse). Procedure Code(s): --- Professional --- 47144, Colonoscopy, flexible; with biopsy, singleor multiple Diagnosis Code(s): --- Professional --- R19.7, Diarrhea, unspecified CPT copyright 2020 [employer]. All rights reserved. The codes documented in this report are preliminary and upon cleaner reviewmay be revised to meet current compliance requirements. Manda Seals MD 06/27/2024 8:09:30 AM This report has been signed electronically.Manda Seals MD Number of Addenda: 0 Note Initiated On: 06/27/2024 7:44 AM Scope In: Scope Out: Endoscopy Department at [facility] - [address] [place] [id number] IMPRESSION: - The examined portion of the ileum was normal. - Normal mucosa in the entire examined colon.Biopsied. - Internal hemorrhoids. Recommendation: - Await pathology results. - Repeat colonoscopy in 10 years for screening purposes. Manda Seals MD GI~PROCEDURE ORDERABLES Final Result * Tissue exam (06/27/2024 7:57 AM EST) Only the most recent of2 resultswithin the time period is included. Final Diagnosis Colon, random biopsies: Benign colonic mucosa with no specific pathologic change. No colitis identified. 06/30/2024 11:31 AM EST [facility] Gross Description A. Colon, random biopsies: Labeled colon random bi . Received in formalin, are multiple irregular soft to rubbery, meza-pink tissue fragments, approximately ranging from 0.2 cm to 0.4 cm in greatest diameters, and aggregating to 1.8 x 1.0 x 0.2, which are wrapped in paper and submitted in toto in one cassette, multiple pieces, multiple levels. dvb/DG 06/30/2024 11:31 AM EST [facility] Disclaimer Unless otherwise specified, all tissue is 10% NB formalin fixed and paraffin embedded. 06/30/2024 11:31 AM EST [facility] Tissue (Colon) 06/27/2024 7: 57 AM EST 06/27/2024 9:36 AM EST Manda Seals MD LAB PATHOLOGY ORDERABLES Final Result [facility] [address] [place] [address], * External Endoscopy (06/16/2024 1:13 PM EST) Anatomical Region Laterality Modality Endoscopy Historical Provider GI~PROCEDURE ORDERABLES F inal Result * (ABNORMAL) Calprotectin, stool (06/14/2024 7:51 AM EST) Calprotectin, Fecal 516.0(H) <50 mcg/g 06/18/2024 12:51 PM EST [facility] Comment: <50 mcg/g ?Normal 50 - 120 mcg/g ?? Borderline >120 mcg/g ? Abnormal Borderline results suggest repeat testing in 4 to 6 weeks. Test performed at [facility], [address] [place], [place] ??[address] ? [phone] Ritika Nunes MD, PhD - [employer] Stool Rectum structure / Unknown Non-blood Collection / Unknown 06/14/2024 7:51 AM EST 06/14/2024 1:02 PM EST Manda Seals MD LAB BODY FLUIDS AND STOOLS ORD ERABLES Final Result [facility] [address] [place] [address] * XR Abdomen 1 View (06/13/2024 3:38 PM EST) Anatomical Region Laterality Modality Body Radiographic Viki ging 06/16/2024 3:04 PM EST Impressions 06/16/2024 3:07 PM EST Impression: 1. Nonspecific bowel pattern. 2. Nephrolithiasis. No significant change. [place] ([id number]) -------- FINAL REPORT -------- Dictated By: Frannie Eng Dictated Date: 06/16/2024 15:04 ET Assigned Physician: Frannie Eng Reviewed and Electronically Signed By: Frannie Eng Signed Date: 06/16/2024 15:07 ET Workstation ID: [id number] Transcribed By: Self Edit Transcribed Date: 06/16/2024 15:04 ET Narrative 06/16/2024 3:07 PM EST History: Abdominal pain, nausea and vomiting. Comparison: 12/30/23, CT abdomen/pelvis 03/03/24 Findings: AP supine views of the abdomen and pelvis. Ventral herniorrhaphy clips are noted. There are air-filled small and large bowel loops, nonspecific. Solid visceral outlines appear unremarkable. Numerous punctate calcifications project over the renal shadows, unchanged, consistent with known renal calculi. An intrauterine device is noted. The regional skeleton is intact. Procedure Note Frannie Eng MD - 06/16/2024 History: Abdominal pain, nausea and vomiting. Comparison: 12/30/23, CT abdomen/pelvis 03/03/24 Findings: AP supine views of the abdomen and pelvis. Ventral herniorrhaphy clips are noted. There are air-filled small andlarge bowel loops, nonspecific. Solid visceral outlines appearunremarkable. Numerous punctate calcifications project over the renal shadows,unchanged, consistent with known renal calculi. An intrauterine device is noted. The regional skeleton is intact. IMPRESSION: Impression: 1. Nonspecific bowel pattern. 2. Nephrolithiasis. No significant [place]. [place] ([id number]) -------- FINAL REPORT -------- Dictated By: Frannie Eng Dictated Date: 06/16/2024 15:04 ET Assigned Physician: Frannie Eng Reviewed and Electronically Signed By: Frannie Eng Signed Date: 06/16/2024 15:07 ET Workstation ID: [id number] Transcribed By: Self Edit Transcribed Date: 06/16/2024 15:04 ET Leif Burciaga PA IMG XR PROCEDURES Final Resu lt * (ABNORMAL) Hepatic function panel (06/13/2024 3:08 PM EST) Total Protein 7.0 6.0 - 8.0 g/dL LAB CHEMISTRY METHOD 06/13/2024 4:54 PM EST [facility] Albumin 3.3 3.2 - 5.0 g/dL LAB CHEMISTRY METHOD 06/13/2024 4:54 PM EST [facility] Total Bilirubin 0.2 0.0 - 1.4 mg/dL LAB CHEMISTRY METHOD 06/13/2024 4:[address] [facility] Bilirubin, Direct <0.1 0.0 - 0.3 mg/dL LAB CHEMISTRY METHOD 06/13/2024 4:[address] [facility] Bilirubin, Indirect LAB CHEMISTRY METHOD 06/13/2024 4:[address] [facility] Comment:Unable to calculate Indirect Bilirubin. ALT (SGPT) 30 10 - 60 unit/L LAB CHEMISTRY METHOD 06/13/2024 4:[address] [facility] AST (SGOT) 22 10 - 42 unit/L LAB CHEMISTRY METHOD 06/13/2024 4:[address] [facility] Alkaline Phosphatase 157(H) 42 - 121 unit/L LAB CHEMISTRY METHOD 06/13/2024 4:[address] [facility] Blood Venous blood specimen / Unknown Venipuncture / Unknown 06/13/2024 3:08 PM EST 06/13/2024 4:11 PM EST us Leif STANTON LAB BLOOD ORDERABLES Final R esult [facility] [address] [facility] [place] [address], * CT Head wo Contrast (06/05/2024 8:53 AM EST) Anatomical Region Laterality Modality Head and Neck Computed Tomogra phy 06/05/2024 9:29 AM EST Impressions 06/05/2024 9:31 AM EST No acute intracranial findings. -------- FINAL REPORT -------- Dictated By: Raheem Dias Dictated Date: 06/05/2024 09:29 ET Assigned Physician: Raheem Dias Reviewed and Electronically Signed By: Raheem Dias Signed Date: 06/05/2024 09:31 ET Workstation ID: [id number] Transcribed By: Self Edit Transcribed Date: 06/05/2024 09:29 ET Narrative 06/05/2024 9:31 AM EST PROCEDURE: Noncontrast head CT. HISTORY: headache. COMPARISON: Head CT 12/29/2013 TECHNIQUE: Noncontrast head CT with coronal and sagittal reformats. Dose length product: ??809 mGy-cm. FINDINGS: Brain: No hemorrhage, edema, mass, or extra-axial fluid collection. ??No CT evidence of an acute large vessel infarct. ??Ventricles and sulci are age commensurate. Orbits: Normal. Sinuses/mastoids: Bilateral maxillary antrostomies and partial ethmoidectomies. ??Hypoplastic right frontal sinus. Calvarium: Normal. Other: The skull base soft tissues are normal. ??Small amount of debris in the external auditory canals. ??Mild degenerative changes of the temporomandibular joints. Procedure Note Raheem Dias MD - 06/05/2024 PROCEDURE: Noncontrast head CT. HISTORY: headache. COMPARISON: Head CT 12/29/2013 TECHNIQUE: Noncontrast head CT with coronal and sagittal reformats. Dose length product: 809 mGy-cm. FINDINGS: Brain: No hemorrhage, edema, mass, or extra-axial fluid collection. No CTevidence of an acute large vessel infarct. Ventricles and sulci are agecommensurate. Orbits: Normal. Sinuses/mastoids: Bilateral maxillary antrostomies and partialethmoidectomies. Hypoplastic right frontal sinus. Calvarium: Normal. Other: The skull base soft tissues are normal. Small amount of debris inthe external auditory canals. Mild degenerative changes of thetemporomandibular joints. IMPRESSION: No acute intracranial findings. -------- FINAL REPORT -------- Dictated By: Raheem Dias Dictated Date: 06/05/2024 09:29 ET Assigned Physician: Raheem Dias Reviewed and Electronically Signed By: Raheem Dias Signed Date: 06/05/2024 09:31 ET Workstation ID: [id number] Transcribed By: Self Edit Transcribed Date: 06/05/2024 09:29 ET Karie STANTON IMG CT PROCEDURES Final Resul t * ECG-Annotated (06/05/2024) Only the most recent of5 resultswithin the time period is included. us Provider Onbase MD ECG ORDERABLES Final Result * ECG 12 lead (06/04/2024 9:37 PM EST) Only the most recent of7 resultswithin the time period is included. Ventricular Rate ECG 99 BPM GEMUSE Atrial Rate 99 BPM GEMUSE P-R Interval 162 ms GEMUSE QRS Duration 92 ms GEMUSE Q-T Interval 376 ms GEMUSE QTc 482 ms GEMUSE P Wave [place] 28 degrees GEMUSE R [place] 29 degrees GEMUSE T [place] 44 degrees GEMUSE ECG Interpretation Normal sinus rhythm Prolonged QT Abnormal ECG When compared with ECG of 04-MAY-2024 14:40, No significant change was found Confirmed by Jerome SALAS JOHN ([id number]) on 06/05/2024 10:56:55 AM GEMUSE 06/04/2024 9:37 PM EST 06/05/2024 10:56 AM EST us Mitesh Boyd MD ECG ORDERABLES Final Res ult GEMUSE * (ABNORMAL) CBC auto differential (06/04/2024 9:30 PM EST) Only the most recent of7 resultswithin the time period is included. WBC 9.7 4.8 - 10.8 K/mcL LAB HEMETOLOGY METHOD 06/04/2024 10:[address] [facility] RBC 5.80(H) 3.80 - 4.80 M/mcL LAB HEMETOLOGY METHOD 06/04/2024 10:[address] [facility] Hemoglobin 11.9 11.5 - 16.0 g/dL LAB HEMETOLOGY METHOD 06/04/2024 10:[address] [facility] Hematocrit 40.9 35.0 - 47.0 % LAB HEMETOLOGY METHOD 06/04/2024 10:[address] [facility] MCV 70.6(L) 79.0 - 98.0 FL LAB HEMETOLOGY METHOD 06/04/2024 10:[address] [facility] MCH 20.6(L) 27.0 - 32.0 pcg LAB HEMETOLOGY METHOD 06/04/2024 10:[address] [facility] MCHC 29.1(L) 32.0 - 37.0 g/dL LAB HEMETOLOGY METHOD 06/04/2024 10:[address] [facility] RDW 19.1(H) 11.0 - 15.0 % LAB HEMETOLOGY METHOD 06/04/2024 10:[address] [facility] Platelets 415(H) 130 - 400 K/mcL LAB HEMETOLOGY METHOD 06/04/2024 10:[address] [facility] MPV 10.0 7.0 - 11.0 FL LAB HEMETOLOGY METHOD 06/04/2024 10:[address] [facility] NRBC 0.0 <1.0 % LAB HEMETOLOGY METHOD 06/04/2024 10:[address] [facility] NRBC Absolute 0.00 <0.10 K/mcL LAB HEMETOLOGY METHOD 06/04/2024 10:[address] [facility] Neutrophils Relative 60.6 % LAB HEMETOLOGY METHOD 06/04/2024 10:[address] [facility] Lymphocytes Relative 25.2 % LAB HEMETOLOGY METHOD 06/04/2024 10:[address] [facility] Monocytes Relative 9.2 % LAB HEMETOLOGY METHOD 06/04/2024 10:[address] [facility] Eosinophils Relative 3.5 % LAB HEMETOLOGY METHOD 06/04/2024 10:[address] [facility] Basophils Relative 1.1 % LAB HEMETOLOGY METHOD 06/04/2024 10:[address] [facility] Immature Granulocytes Relative 0.4 % LAB HEMETOLOGY METHOD 06/04/2024 10:[address] [facility] Neutrophils Absolute 5.88 1.50 - 7.00 K/mcL LAB HEMETOLOGY METHOD 06/04/2024 10:[address] [facility] Lymphocytes Absolute 2.44 1.00 - 5.00 K/mcL LAB HEMETOLOGY METHOD 06/04/2024 10:[address] [facility] Monocytes Absolute 0.89 0.20 - 1.00 K/mcL LAB HEMETOLOGY METHOD 06/04/2024 10:[address] [facility] Eosinophils Absolute 0.34 0.00 - 0.50 K/mcL LAB HEMETOLOGY METHOD 06/04/2024 10:[address] [facility] Basophils Absolute 0.11 0.00 - 0.20 K/mcL LAB HEMETOLOGY METHOD 06/04/2024 10:24 PM EST [facility] Immature Granulocytes Absolute 0.04(H) 0.00 - 0.03 K/mcL LAB HEMETOLOGY METHOD 06/04/2024 10:24 PM EST [facility] Blood Venous blood specimen / Unknown Venipuncture / Unknown 06/04/2024 9:30 PM EST 06/04/2024 10:16 PM EST Mitesh Boyd MD LAB BLOOD ORDERABLES Jie l Result Performing Organization Address City/[facility]/ZIP Co de Phone Number [facility] [address] [place] [address], [place] [phone] * (ABNORMAL) Magnesium (06/04/2024 9:30 PM EST) Only the most recent of4 resultswithin the time period is included. Magnesium 1.7(L) 1.9 - 2.6 mg/dL LAB CHEMISTRY METHOD 06/04/2024 10:42 PM EST [facility] Blood Venous blood specimen / Unknown Venipuncture / Unknown 06/04/2024 9:30 PM EST 06/04/2024 10:16 PM EST Mitesh Boyd MD LAB BLOOD ORDERABLES Jie l Result [facility] [address] [place] [address], [place] [phone] * (ABNORMAL) Basic metabolic panel (06/04/2024 9:30 PM EST) Only the most recent of4 resultswithin the time period is included. Sodium 135 133 - 145 mmol/L LAB CHEMISTRY METHOD 06/04/2024 10:42 PM EST [facility] Potassium 4.0 3.5 - 5.5 mmol/L LAB CHEMISTRY METHOD 06/04/2024 10:[address] [facility] Chloride 108 96 - 110 mmol/L LAB CHEMISTRY METHOD 06/04/2024 10:[address] [facility] CO2 22 21 - 32 mmol/L LAB CHEMISTRY METHOD 06/04/2024 10:[address] [facility] Anion Gap 5 3 - 11 LAB CHEMISTRY METHOD 06/04/2024 10:[address] [facility] Glucose 197(H) 70 - 100 mg/dL LAB CHEMISTRY METHOD 06/04/2024 10:[address] [facility] BUN 17 5 - 25 mg/dL LAB CHEMISTRY METHOD 06/04/2024 10:[address] [facility] Creatinine 1.08 0.50 - 1.10 mg/dL LAB CHEMISTRY METHOD 06/04/2024 10:[address] [facility] eGFR 63 >=60 mL/min/1. 73m2 LAB CHEMISTRY METHOD 06/04/2024 10:[address] [facility] Comment:Calculation based on the??Chronic Kidney Disease Epidemiology Collaboration (CKD-EPI) equation refit??without adjustment for race. BUN/Creatinine Ratio 15.7 LAB CHEMISTRY METHOD 06/04/2024 10:[address] [facility] Calcium 8.8 8.5 - 10.5 mg/dL LAB CHEMISTRY METHOD 06/04/2024 10:[address] [facility] Blood Venous blood specimen / Unknown Venipuncture / Unknown 06/04/2024 9:30 PM EST 06/04/2024 10:16 PM EST us Mitesh Boyd MD LAB BLOOD ORDERABLES Jie mcclure Result [facility] [address] [place] [address], * XR Chest 2 Views (05/20/2024 6:17 AM EST) Only the most recent of3 resultswithin the time period is included. Anatomical Region Laterality Modality Body Radiographic Viki ging 05/20/2024 6:50 AM EST Impressions 05/20/2024 6:52 AM EST No acute chest disease -------- FINAL REPORT -------- Dictated By: Terrence Yañez Dictated Date: 05/20/2024 06:50 ET Assigned Physician: Terrence Yañez Reviewed and Electronically Signed By: Terrence Yañez Signed Date: 05/20/2024 06:52 ET Workstation ID: [id number] Transcribed By: Self Edit Transcribed Date: 05/20/2024 06:50 ET Narrative 05/20/2024 6:52 AM EST EXAMINATION: CHEST CLINICAL INFORMATION: Pain COMPARISON: 05/04/2024 TECHNIQUE: 2 views of the chest FINDINGS: There is a reservoir associated with a right-sided vascular catheter. The catheter tip projects at the expected junction of SVC with right atrium. The cardiac size is within normal limits. No mediastinal or hilar mass. The vasculature, lungs and visualized pleural margins are within normal limits. No suspicious focal bony lesion Procedure Note Terrence Yañez MD - 05/20/2024 EXAMINATION: CHEST CLINICAL INFORMATION: Pain COMPARISON: 05/04/2024 TECHNIQUE: 2 views of the chest FINDINGS: There is a reservoir associated with a right-sided vascular catheter. Thecatheter tip projects at the expected junction of SVC with right atrium. The cardiac size is within normal limits. No mediastinal or hilar mass.The vasculature, lungs and visualized pleural margins are within normallimits. No suspicious focal bony lesion IMPRESSION: No acute chest disease -------- FINAL REPORT -------- Dictated By: Terrenec Yañez Dictated Date: 05/20/2024 06:50 ET Assigned Physician: Terrence Yañez Reviewed and Electronically Signed By: Terrence Yañez Signed Date: 05/20/2024 06:52 ET Workstation ID: [id number] Transcribed By: Self Edit Transcribed Date: 05/20/2024 06:50 ET us Scot A Millay MD IMG XR PROCEDURES Final Result * (ABNORMAL) Urinalysis with reflex microscopic and culture (05/19/2024 5:19 PM EST) Specific Archer Urine 1.015 1.003 - 1.030 LAB URINALYSIS - AUTOMATED METHOD 05/19/2024 6:[address] [facility] pH, Urine 6.5 5.0 - 8.0 pH LAB URINALYSIS - AUTOMATED METHOD 05/19/2024 6:[address] [facility] Leukocytes, Urine Trace(A) Negative LAB URINALYSIS - AUTOMATED METHOD 05/19/2024 6:[address] [facility] Nitrite, Urine Negative Negative LAB URINALYSIS - AUTOMATED METHOD 05/19/2024 6:[address] [facility] Protein, Urine Negative <=Trace mg/dL LAB URINALYSIS - AUTOMATED METHOD 05/19/2024 6:[address] [facility] Glucose, Urine Negative Negative mg/dL LAB URINALYSIS - AUTOMATED METHOD 05/19/2024 6:[address] [facility] Ketones, Urine Negative Negative mg/dL LAB URINALYSIS - AUTOMATED METHOD 05/19/2024 6:[address] [facility] Urobilinogen, Urine 0.2 0.2 - 1.0 mg/dL LAB URINALYSIS - AUTOMATED METHOD 05/19/2024 6:[address] [facility] Bilirubin, Urine Negative Negative LAB URINALYSIS - AUTOMATED METHOD 05/19/2024 6:[address] [facility] Blood, Urine Negative Negative LAB URINALYSIS - AUTOMATED METHOD 05/19/2024 6:[address] [facility] RBC, Urine 4 0 - 4 /HPF 05/19/2024 6:[address] [facility] WBC, Urine 7(H) 0 - 4 /HPF 05/19/2024 6:[address] [facility] Squamous Epithelial, Urine 10 0 - 60 /LPF 05/19/2024 6:26 PM EST [facility] Bacteria, Urine Negative Negative /HPF 05/19/2024 6:[address] [facility] Urine Urine specimen obtained by clean catch procedure / Unknown Non-blood Collection / Unknown 05/19/2024 5:19 PM EST 05/19/2024 5:25 PM EST James STANTON LAB URINE ORDERABLES Final R esult [facility] [address] [place] [address], [place] [phone] * Mchugh urine culture tube (05/19/2024 5:19 PM EST) Extra Tube Hold for add-ons. 05/19/2024 7:01 PM EST [facility] Comment:Auto resulted. Urine Urine specimen obtained by clean catch procedure / Unknown Non-blood Collection / Unknown 05/19/2024 5:19 PM EST 05/19/2024 5:25 PM EST James STANTON LAB URINE ORDERABLES Final R esult Performing Organization Address City/[facility]/ZIP Co de Phone Number [facility] [address] [place] [address], [place] [phone] * Culture urine (05/19/2024 5:19 PM EST) Culture, Urine <10,000 CFU/mL gram positive cocci, insignificant count, no further workup 05/20/2024 1:21 PM EST [facility] Urine Urine specimen obtained by clean catch procedure / Unknown Non-blood Collection / Unknown 05/19/2024 5:19 PM EST 05/19/2024 6:26 PM EST us James STANTON LAB MICROBIOLOGY - GENERAL O RDERABLES Final Result Performing Organization Address [facility]/ZIP Co de Phone Number [facility] [address] [place] [address], [place] [phone] * Lipase (05/19/2024 5:18 PM EST) Only the most recent of3 resultswithin the time period is included. Lipase 74 13 - 75 unit/L LAB CHEMISTRY METHOD 05/19/2024 5:[address] [facility] Blood Venous blood specimen / Unknown Venipuncture / Unknown 05/19/2024 5:18 PM EST 05/19/2024 5:24 PM EST James STANTON LAB BLOOD ORDERABLES Final R esult Performing Organization Address [facility]/ZIP Co de Phone Number [facility] [address] [place] [address], [place] [phone] * (ABNORMAL) Comprehensive metabolic panel (05/19/2024 5:18 PM EST) Only the most recent of3 resultswithin the time period is included. Sodium 139 133 - 145 mmol/L LAB CHEMISTRY METHOD 05/19/2024 5:[address] [facility] Potassium 4.4 3.5 - 5.5 mmol/L LAB CHEMISTRY METHOD 05/19/2024 5:[address] [facility] Chloride 111(H) 96 - 110 mmol/L LAB CHEMISTRY METHOD 05/19/2024 5:[address] [facility] CO2 21 21 - 32 mmol/L LAB CHEMISTRY METHOD 05/19/2024 5:[address] [facility] Anion Gap 7 3 - 11 LAB CHEMISTRY METHOD 05/19/2024 5:[address] [facility] Glucose 157(H) 70 - 100 mg/dL LAB CHEMISTRY METHOD 05/19/2024 5:[address] [facility] BUN 17 5 - 25 mg/dL LAB CHEMISTRY METHOD 05/19/2024 5:[address] [facility] Creatinine 0.96 0.50 - 1.10 mg/dL LAB CHEMISTRY METHOD 05/19/2024 5:[address] [facility] eGFR 73 >=60 mL/min/1. 73m2 LAB CHEMISTRY METHOD 05/19/2024 5:[address] [facility] Comment:Calculation based on the??Chronic Kidney Disease Epidemiology Collaboration (CKD-EPI) equation refit??without adjustment for race. BUN/Creatinine Ratio 17.7 LAB CHEMISTRY METHOD 05/19/2024 5:[address] [facility] Calcium 8.9 8.5 - 10.5 mg/dL LAB CHEMISTRY METHOD 05/19/2024 5:[address] [facility] AST (SGOT) 24 10 - 42 unit/L LAB CHEMISTRY METHOD 05/19/2024 5:[address] [facility] ALT (SGPT) 34 10 - 60 unit/L LAB CHEMISTRY METHOD 05/19/2024 5:[address] [facility] Alkaline Phosphatase 224(H) 42 - 121 unit/L LAB CHEMISTRY METHOD 05/19/2024 5:[address] [facility] Total Protein 7.1 6.0 - 8.0 g/dL LAB CHEMISTRY METHOD 05/19/2024 5:[address] [facility] Albumin 3.5 3.2 - 5.0 g/dL LAB CHEMISTRY METHOD 05/19/2024 5:[address] [facility] Total Bilirubin 0.2 0.0 - 1.4 mg/dL LAB CHEMISTRY METHOD 05/19/2024 5:[address] [facility] Blood Venous blood specimen / Unknown Venipuncture / Unknown 05/19/2024 5:18 PM EST 05/19/2024 5:24 PM EST us James STANTON LAB BLOOD ORDERABLES Final R esult [facility] [address] [place] [address], [place] [phone] * XR Shoulder 2+ Views Right (05/10/2024 8:24 AM EST) Anatomical Region Laterality Modality Upper Extremities, Shoulder Right Radi ographic Imaging 05/10/2024 8:34 AM EST Impressions 05/10/2024 8:36 AM EST Unremarkable right shoulder exam. -------- FINAL REPORT -------- Dictated By: Travis Menjivar Dictated Date: 05/10/2024 08:34 ET Assigned Physician: Travis Menjivar Reviewed and Electronically Signed By: Travis Menjivar Signed Date: 05/10/2024 08:36 ET Workstation ID: [id number] Transcribed By: Self Edit Transcribed Date: 05/10/2024 08:34 ET Narrative 05/10/2024 8:36 AM EST EXAMINATION: Right shoulder. 3 views CLINICAL INDICATION: Right shoulder pain after fall yesterday. COMPARISON: None. FINDINGS: There is normal glenohumeral alignment. AC joint space is normal. There is no visible acute fracture, dislocation or soft tissue abnormality. Incidental finding of a right central venous port with its tip in mid SVC. Procedure Note Travis Menjivar MD - 05/10/2024 EXAMINATION: Right shoulder. 3 views CLINICAL INDICATION: Right shoulder pain after fall yesterday. COMPARISON: None. FINDINGS: There is normal glenohumeral alignment. AC joint space isnormal. There is no visible acute fracture, dislocation or soft tissueabnormality. Incidental finding of a right central venous port with itstip in mid SVC. IMPRESSION: Unremarkable right shoulder exam. -------- FINAL REPORT -------- Dictated By: Travis Menjivar Dictated Date: 05/10/2024 08:34 ET Assigned Physician: Travis Menjivar Reviewed and Electronically Signed By: Travis Menjivar Signed Date: 05/10/2024 08:36 ET Workstation ID: [id number] Transcribed By: Self Edit Transcribed Date: 05/10/2024 08:34 ET Camron STANTON IMG XR PROCEDURES Final R esult * Respiratory virus panel molecular study (05/04/2024 5:01 PM EST) Adenovirus Detection by PCR Not Detected Not Detected LAB MICROBIOLOGY METHOD 05/04/2024 5:58 PM EST [facility] Influenza A PCR Not Detected Not Detected LAB MICROBIOLOGY METHOD 05/04/2024 5:[address] [facility] Influenza B PCR Not Detected Not Detected LAB MICROBIOLOGY METHOD 05/04/2024 5:58 PM EST [facility] Coronavirus 229E Not Detected Not Detected LAB MICROBIOLOGY METHOD 05/04/2024 5:[address] [facility] Coronavirus HKU1 Not Detected Not Detected LAB MICROBIOLOGY METHOD 05/04/2024 5:[address] [facility] Coronavirus OC43 Not Detected Not Detected LAB MICROBIOLOGY METHOD 05/04/2024 5:[address] [facility] Coronavirus NL63 Not Detected Not Detected LAB MICROBIOLOGY METHOD 05/04/2024 5:[address] [facility] Parainfluenza Virus 1 Not Detected Not Detected LAB MICROBIOLOGY METHOD 05/04/2024 5:[address] [facility] Parainfluenza Virus 2 Not Detected Not Detected LAB MICROBIOLOGY METHOD 05/04/2024 5:[address] [facility] Parainfluenza Virus 3 Not Detected Not Detected LAB MICROBIOLOGY METHOD 05/04/2024 5:[address] [facility] Parainfluenza Virus 4 Not Detected Not Detected LAB MICROBIOLOGY METHOD 05/04/2024 5:[address] [facility] RSV PCR Not Detected Not Detected LAB MICROBIOLOGY METHOD 05/04/2024 5:[address] [facility] Human Metapneumovirus A and B Not Detected Not Detected LAB MICROBIOLOGY METHOD 05/04/2024 5:58 PM EST [facility] Rhinovirus/Entero virus Not Detected Not Detected LAB MICROBIOLOGY METHOD 05/04/2024 5:58 PM EST [facility] Bordetella pertussis Not Detected Not Detected LAB MICROBIOLOGY METHOD 05/04/2024 5:58 PM EST [facility] Bordetella parapertussis Not Detected Not Detected LAB MICROBIOLOGY METHOD 05/04/2024 5:58 PM EST [facility] Mycoplasma pneumo by PCR Not Detected Not Detected LAB MICROBIOLOGY METHOD 05/04/2024 5:58 PM EST [facility] Chlamydia pneumoniae Not Detected Not Detected LAB MICROBIOLOGY METHOD 05/04/2024 5:58 PM EST [facility] SARS COV-2 Not Detected Not Detected LAB MICROBIOLOGY METHOD 05/04/2024 5:58 PM EST [facility] Swab Both anterior nares / Unknown Non-blood Collection / Unknown 05/04/2024 5:01 PM EST 05/04/2024 5:08 PM EST [facility] - 05/04/2024 5:58 PM EST Testing was performed using the [employer] Respiratory Pathogen PCR Assay. All results must be correlated with the clinical findings. Results should not be used as the sole basis for diagnosis. False Negative results may occur from the presence of sequence variants in the region targeted by the assay or the presence of inhibitors. Results may be affected by concurrent antiviral/antimicrobial therapy or levels of organisms that are below the limit of detection. us Dory STANTON LAB MICROBIOLOGY - GEN ERAL ORDERABLES Final Result [facility] [address] [place] [address], * CT Angio Chest wo and/or w Contrast (05/04/2024 3:45 PM EST) Anatomical Region Laterality Modality Body Computed Tomogra phy 05/04/2024 3:50 PM EST Impressions 05/04/2024 4:00 PM EST No evidence of aortic dissection or aneurysm. No pneumonia or edema. ?? -------- FINAL REPORT -------- Dictated By: Terrence Yañez Dictated Date: 05/04/2024 15:50 ET Assigned Physician: Terrence Yañez Reviewed and Electronically Signed By: Terrence Yañez Signed Date: 05/04/2024 16:00 ET Workstation ID: [id number] Transcribed By: Self Edit Transcribed Date: 05/04/2024 15:50 ET Narrative 05/04/2024 4:00 PM EST EXAMINATION: CTA CHEST WITH CONTRAST CLINICAL INFORMATION: Chest pain. ??Back pain. Intermittent shortness of breath COMPARISON: None ?? TECHNIQUE: CT angiography using thoracic aorta timing Multidetector CT. Examination of the chest. Examination of the chest following the IV administration of nonionic contrast. Reformatting in the coronal and sagittal planes. DLP: 583 mGy-cm Dose optimization was performed including the use of low-dose iterative reconstruction technique with automatic exposure control based on patient size. Type of contrast: ISOVUE 370 Volume of IV contrast: 90 mL Volume of contrast discarded: 0 mL FINDINGS: QUALITY: ??The thoracic aorta is well opacified. The pulmonary arteries are not optimally opacified. THORACIC AORTA: ??There is no thoracic aortic dissection. No thoracic aortic aneurysm. No intramural hematoma suspected. There is no penetrating ulcer. There is no surrounding hematoma. PULMONARY ARTERIES: ??No pulmonary embolus demonstrated LUNG: There is no pneumonia. There is no edema. No suspicious mass. There are a few nonspecific reticular lung base opacities. ?? MEDIASTINUM: ??There are no enlarged lymph nodes. There is no suspicious abnormality of the esophagus. The right lobe of the thyroid is not visualized. CARDIAC: The heart is not enlarged. No pericardial fluid or thickening ?? There is no CT evidence of elevated right heart pressures. CORONARY CALCIFICATION: None VASCULAR: There is no thoracic aortic aneurysm. The main pulmonary artery is normal caliber ?? PLEURAL: There is no pleural fluid or pneumothorax ?? AXILLA/CHEST WALL: There is a reservoir associated with a right-sided vascular catheter. No enlarged axillary lymph nodes. ?? MUSCULOSKELETAL: No focal bony lesion ?? VISUALIZED UPPER ABDOMEN: ??The liver appears enlarged. I suspect fatty change. The visualized upper aspect of each kidney appears abnormal. There is low attenuation centrally and there are several small calcifications. ??There is no reflux of contrast into the IVC or hepatic veins. Procedure Note Terrence Yañez MD - 05/04/2024 EXAMINATION: CTA CHEST WITH CONTRAST CLINICAL INFORMATION: Chest pain. Back pain. Intermittent shortness of breath COMPARISON: None TECHNIQUE: CT angiography using thoracic aorta timing Multidetector CT. Examination of the chest. Examination of the chest following the IV administration of nonioniccontrast. Reformatting in the coronal and sagittal planes. DLP: 583 mGy-cm Dose optimization was performed including the use of low-dose iterativereconstruction technique with automatic exposure control based on patientsize. Type of contrast: ISOVUE 370 Volume of IV contrast: 90 mL Volume of contrast discarded: 0 mL FINDINGS: QUALITY: The thoracic aorta is well opacified. The pulmonary arteries arenot optimally opacified. THORACIC AORTA: There is no thoracic aortic dissection. No thoracicaortic aneurysm. No intramural hematoma suspected. There is no penetratingulcer. There is no surrounding hematoma. PULMONARY ARTERIES: No pulmonary embolus demonstrated LUNG: There is no pneumonia. There is no edema. No suspicious mass. Thereare a few nonspecific reticular lung base opacities. MEDIASTINUM: There are no enlarged lymph nodes. There is no suspiciousabnormality of the esophagus. The right lobe of the thyroid is notvisualized. CARDIAC: The heart is not enlarged. No pericardial fluid or thickening There is no CT evidence of elevated right heart pressures. CORONARY CALCIFICATION: None VASCULAR: There is no thoracic aortic aneurysm. The main pulmonary arteryis normal caliber PLEURAL: There is no pleural fluid or pneumothorax AXILLA/CHEST WALL: There is a reservoir associated with a right-sidedvascular catheter. No enlarged axillary lymph nodes. MUSCULOSKELETAL: No focal bony lesion VISUALIZED UPPER ABDOMEN: The liver appears enlarged. I suspect fattychange. The visualized upper aspect of each kidney appears abnormal. Thereis low attenuation centrally and there are several small calcifications.There is no reflux of contrast into the IVC or hepatic veins. IMPRESSION: No evidence of aortic dissection or aneurysm. No pneumonia or edema. -------- FINAL REPORT -------- Dictated By: Terrence Yañez Dictated Date: 05/04/2024 15:50 ET Assigned Physician: Terrence Yañez Reviewed and Electronically Signed By: Terrence Yañez Signed Date: 05/04/2024 16:00 ET Workstation ID: [id number] Transcribed By: Self Edit Transcribed Date: 05/04/2024 15:[address] PROCEDURES Jie l Result * Troponin I high sensitivity (05/04/2024 1:13 PM EST) Only the most recent of3 resultswithin the time period is included. [facility] High Sensitivity Troponin I 5 <=54 ng/L LAB CHEMISTRY METHOD 05/04/2024 2:23 PM EST [facility] Blood Venous blood specimen / Unknown Venipuncture / Unknown 05/04/2024 1:13 PM EST 05/04/2024 1:51 PM EST Narrative [facility] - 05/04/2024 2:23 PM EST High levels of biotin in samples may falsely decrease hsTroponin values. ??Use caution when interpreting hsTroponin results in patients taking biotin who exhibit renal impairment (eGFR <60) or in patients taking more than 20 mg/day of biotin. Dory STANTON LAB BLOOD ORDERABLES F inal Result [facility] [address] [place] [address], * B-type natriuretic peptide (05/04/2024 1:13 PM EST) Only the most recent of2 resultswithin the time period is included. [facility] BNP 2 <=100 pcg/mL LAB CHEMISTRY METHOD 05/04/2024 2:30 PM EST [facility] Blood Venous blood specimen / Unknown Venipuncture / Unknown 05/04/2024 1:13 PM EST 05/04/2024 1:51 PM EST Dory STANTON LAB BLOOD ORDERABLES F inal Result Performing Organization Address [facility] Co de Phone Number [facility] [address] [place] [address], [place] [phone] * (ABNORMAL) POCT Glucose, blood (04/29/2024 12:01 AM EST) Glucose POCT 136(H) 70 - 100 mg/dL 04/29/2024 12:01 AM EST [facility] Blood Capillary blood specimen / Unknown 04/29/2024 12:01 AM EST 04/29/2024 12:01 AM EST Generic Provider Poct LAB POINT OF CARE TEST DOCKED DEVICE UNSOLICITED RESULTS Final Result Performing Organization Address [facility] de Phone Number [facility] [address] [place] [address], [place] [phone] * POC , urine manually resulted (04/28/2024 6:19 PM EST) Only the most recent of2 resultswithin the time period is included. HCG, Ur POC Negative Negative [facility] POC hCG Int QC Pass? Yes Yes [facility] Urine Urine specimen obtained by clean catch procedure / Unknown 04/28/2024 6:19 PM EST Ayush Reyes MD POINT OF CARE TEST ENTER/EDIT O RDERABLES Final Result Performing Organization Address [facility] Co de Phone Number [facility] [address] [place] [address], [place] [phone] * MR Abdomen wo and w Contrast MRCP (04/25/2024 7:43 PM EST) Anatomical Region Laterality Modality Body Magnetic Resonan ce 04/28/2024 9:34 AM EST Impressions 04/28/2024 10:21 AM EST The liver appears enlarged but is otherwise unremarkable. ??Normal appearance of the biliary tree. Splenomegaly. -------- FINAL REPORT -------- Dictated By: Raheem Dias Dictated Date: 04/28/2024 09:34 ET Assigned Physician: Raheem Dias Reviewed and Electronically Signed By: Raheem Dias Signed Date: 04/28/2024 10:21 ET Workstation ID: [id number] Transcribed By: Self Edit Transcribed Date: 04/28/2024 10:09 ET Narrative 04/28/2024 10:21 AM EST MRI abdomen with MRCP dated 04/28/2024. HISTORY: RUQ abdominal pain, US nondiagnostic elevated alk phos/abnormal liver biopsy. ?ascending cholangitis ?PSC (nl bili, nl AMA). TECHNIQUE: Multiplanar multisequence MRI of the abdomen with and without intravenous contrast administration. ??MRCP was also performed, with multiple reformats. IV contrast dose: 15 mL Dotarem from a 15 mL vial with 0 mL discarded. COMPARISON: CT dated 04/10/2024. FINDINGS: Liver: Appears enlarged. ??No focal lesion. ??No evidence of steatosis on out of phase imaging. ??Small amount of fluid anterior to the left hepatic lobe correlating with a recent biopsy site. ??Portal and hepatic veins are patent. Biliary: Normal appearance of the gallbladder and biliary tree. Pancreas: Normal. Spleen: Enlarged, measuring 14.5 cm craniocaudal. Adrenal glands: Normal. Kidneys: Numerous T2 hyperintense renal cortical lesions suggestive of cysts. ??Visualized portions of the collecting systems are normal. Retroperitoneum: No mass or adenopathy. Bowel/mesentery: Visualized bowel and mesentery are normal. Bones: Mild degenerative changes of the spine. ??No suspicious bony lesion. Procedure Note Raheem Dias MD - 04/28/2024 MRI abdomen with MRCP dated 04/28/2024. HISTORY: RUQ abdominal pain, US nondiagnostic elevated alk phos/abnormal liver biopsy. ?ascending cholangitis ?PSC (nlbili, nl AMA). TECHNIQUE: Multiplanar multisequence MRI of the abdomen with and withoutintravenous contrast administration. MRCP was also performed, withmultiple reformats. IV contrast dose: 15 mL Dotarem from a 15 mL vial with 0 mL discarded. COMPARISON: CT dated 04/10/2024. FINDINGS: Liver: Appears enlarged. No focal lesion. No evidence of steatosis onout of phase imaging. Small amount of fluid anterior to the left hepaticlobe correlating with a recent biopsy site. Portal and hepatic veins arepatent. Biliary: Normal appearance of the gallbladder and biliary tree. Pancreas: Normal. Spleen: Enlarged, measuring 14.5 cm craniocaudal. Adrenal glands: Normal. Kidneys: Numerous T2 hyperintense renal cortical lesions suggestive ofcysts. Visualized portions of the collecting systems are normal. Retroperitoneum: No mass or adenopathy. Bowel/mesentery: Visualized bowel and mesentery are normal. Bones: Mild degenerative changes of the spine. No suspicious bonylesion. IMPRESSION: The liver appears enlarged but is otherwise unremarkable. Normalappearance of the biliary tree. Splenomegaly. -------- FINAL REPORT -------- Dictated By: Raheem Dias Dictated Date: 04/28/2024 09:34 ET Assigned Physician: Raheem Dias Reviewed and Electronically Signed By: Raheem Dias Signed Date: 04/28/2024 10:21 ET Workstation ID: [id number] Transcribed By: Self Edit Transcribed Date: 04/28/2024 10:09 ET Leif STANTON IMG MRI PROCEDURES Final Res ult * (ABNORMAL) CBC (04/10/2024 8:39 PM EST) WBC 7.5 4.8 - 10.8 K/[facility] LAB HEMETOLOGY METHOD 04/10/2024 8:52 PM EST [facility] RBC 5.20(H) 3.80 - 4.80 M/[facility] LAB HEMETOLOGY METHOD 04/10/2024 8:[address] [facility] Hemoglobin 11.0(L) 11.5 - 16.0 g/dL LAB HEMETOLOGY METHOD 04/10/2024 8:[address] [facility] Hematocrit 37.5 35.0 - 47.0 % LAB HEMETOLOGY METHOD 04/10/2024 8:[address] [facility] MCV 72.0(L) 79.0 - 98.0 [place] LAB HEMETOLOGY METHOD 04/10/2024 8:[address] [facility] MCH 21.1(L) 27.0 - 32.0 pcg LAB HEMETOLOGY METHOD 04/10/2024 8:[address] [facility] MCHC 29.3(L) 32.0 - 37.0 g/dL LAB HEMETOLOGY METHOD 04/10/2024 8:[address] [facility] RDW 18.8(H) 11.0 - 15.0 % LAB HEMETOLOGY METHOD 04/10/2024 8:[address] [facility] Platelets 403(H) 130 - 400 K/mcL LAB HEMETOLOGY METHOD 04/10/2024 8:[address] [facility] MPV 9.7 7.0 - 11.0 [place] LAB HEMETOLOGY METHOD 04/10/2024 8:[address] [facility] NRBC 0.0 <1.0 % LAB HEMETOLOGY METHOD 04/10/2024 8:[address] [facility] NRBC Absolute 0.00 <0.10 K/mcL LAB HEMETOLOGY METHOD 04/10/2024 8:[address] [facility] Blood Venous blood specimen / Unknown Venipuncture / Unknown 04/10/2024 8:39 PM EST 04/10/2024 8:45 PM EST Armando STANTON LAB BLOOD ORDERABLES Final R esult [facility] [address] [place] [address], [place] [phone] * CT Chest/Abdomen/Pelvis w Contrast (04/10/2024 8:39 AM EST) Anatomical Region Laterality Modality Body Computed Tomogra phy 04/10/2024 8:57 AM EST Impressions 04/10/2024 9:20 AM EST 1. ??Small collection of soft tissue gas and mild adjacent fat stranding anterior to the left hepatic lobe, presumably sequela of a recent liver biopsy. 2. ??No acute findings. 3. ??The liver appears enlarged with mild fatty infiltration. ??Borderline splenomegaly. -------- FINAL REPORT -------- Dictated By: Raheem Dias Dictated Date: 04/10/2024 08:57 ET Assigned Physician: Raheem Dias Reviewed and Electronically Signed By: Raheem Dias Signed Date: 04/10/2024 09:20 ET Workstation ID: [id number] Transcribed By: Self Edit Transcribed Date: 04/10/2024 08:57 ET Narrative 04/10/2024 9:[address] chest, abdomen, and pelvis, 04/10/2024. HISTORY: pain s/p liver bx yesterday. COMPARISON: 03/03/2024 CT abdomen and pelvis. ??Chest CT 12/10/2021. TECHNIQUE: Contrast-enhanced CT of the chest, abdomen, and pelvis with coronal and sagittal reformats. IV contrast dose: 90 mL ISOVUE-370. Dose length product: 1530 ??mGy-cm. FINDINGS: Compared with 12/10/2021: Lungs/pleura: Airways are clear and normal in caliber. ??No suspicious pulmonary nodule or mass. ??Patchy opacities at the lung bases likely represent atelectasis. ??No pleural effusion or pneumothorax. Mediastinum/tonia: The right thyroid lobe is not visualized and may be absent. ??Calcifications and small left thyroid nodules which would be better evaluated with ultrasound. ??No mediastinal or hilar mass or lymphadenopathy.. Thoracic vasculature: Minimal atherosclerotic calcification. ??Normal caliber pulmonary arteries. ??No central pulmonary embolism. Cardiac: Normal. Chest wall: Right-sided single-lumen port with the catheter tip at the cavoatrial junction. ??No mass or adenopathy. Compared with 06/20/2022: Liver: There is a small collection of soft tissue gas and mild adjacent fat stranding anterior to the left hepatic lobe. ??The liver appears enlarged. ??Mild fatty infiltration. ??No focal lesion. ??Portal veins are patent. Biliary: Normal gallbladder and biliary tree. Pancreas: Normal. Spleen: Borderline enlarged measuring 13 cm craniocaudal. Adrenal glands: Normal. Kidneys: Numerous small low-attenuation lesions, many too small for definitive characterization but likely cysts. ??Medullary nephrocalcinosis. ??Normal appearance of the ureters. Retroperitoneum: No mass or adenopathy. Abdominal vasculature: Normal. Bowel/mesentery: No obstruction or adenopathy. ??No mass or ascites. ??Normal appendix. Abdominal wall: Postherniorrhaphy changes in the anterior midline. Pelvic nodes: No adenopathy. Pelvic organs: Well-positioned intrauterine device. ??A small right ovarian cyst is presumably functional in a patient of this age. Bones: Mild degenerative changes of the spine. Procedure Note Raheem Dias MD - 04/10/2024 CT chest, abdomen, and pelvis, 04/10/2024. HISTORY: pain s/p liver bx yesterday. COMPARISON: 03/03/2024 CT abdomen and pelvis. Chest CT 12/10/2021. TECHNIQUE: Contrast-enhanced CT of the chest, abdomen, and pelvis withcoronal and sagittal reformats. IV contrast dose: 90 mL ISOVUE-370. Dose length product: 1530 mGy-cm. FINDINGS: Compared with 12/10/2021: Lungs/pleura: Airways are clear and normal in caliber. No suspiciouspulmonary nodule or mass. Patchy opacities at the lung bases likelyrepresent atelectasis. No pleural effusion or pneumothorax. Mediastinum/tonia: The right thyroid lobe is not visualized and may beabsent. Calcifications and small left thyroid nodules which would bebetter evaluated with ultrasound. No mediastinal or hilar mass orlymphadenopathy.. Thoracic vasculature: Minimal atherosclerotic calcification. Normalcaliber pulmonary arteries. No central pulmonary embolism. Cardiac: Normal. Chest wall: Right-sided single-lumen port with the catheter tip at thecavoatrial junction. No mass or adenopathy. Compared with 06/20/2022: Liver: There is a small collection of soft tissue gas and mild adjacentfat stranding anterior to the left hepatic lobe. The liver appearsenlarged. Mild fatty infiltration. No focal lesion. Portal veins arepatent. Biliary: Normal gallbladder and biliary tree. Pancreas: Normal. Spleen: Borderline enlarged measuring 13 cm craniocaudal. Adrenal glands: Normal. Kidneys: Numerous small low-attenuation lesions, many too small fordefinitive characterization but likely cysts. Medullary nephrocalcinosis.Normal appearance of the ureters. Retroperitoneum: No mass or adenopathy. Abdominal vasculature: Normal. Bowel/mesentery: No obstruction or adenopathy. No mass or ascites.Normal appendix. Abdominal wall: Postherniorrhaphy changes in the anterior midline. Pelvic nodes: No adenopathy. Pelvic organs: Well-positioned intrauterine device. A small right ovariancyst is presumably functional in a patient of this age. Bones: Mild degenerative changes of the spine. IMPRESSION: 1. Small collection of soft tissue gas and mild adjacent fat strandinganterior to the left hepatic lobe, presumably sequela of a recent liverbiopsy. 2. No acute findings. 3. The liver appears enlarged with mild fatty infiltration. Borderlinesplenomegaly. -------- FINAL REPORT -------- Dictated By: Raheem Dias Dictated Date: 04/10/2024 08:57 ET Assigned Physician: Raheem Dias Reviewed and Electronically Signed By: Raheem Dias Signed Date: 04/10/2024 09:20 ET Workstation ID: [id number] Transcribed By: Self Edit Transcribed Date: 04/10/2024 08:57 ET us Karie STANTON IMG CT PROCEDURES Final Resul t * US Bx Ndl Liver Perc (04/09/2024 11:18 AM EST) Anatomical Region Laterality Modality Body Ultrasound, Inte rventional Radiology 04/09/2024 11:4 4 AM EST Narrative 04/09/2024 11:46 AM EST Ultrasound-guided liver biopsy INDICATION: increased alkaline phosphatase negative AMA CONCLUSION: Successful ultrasound guided biopsy. ?? [employer] OFFICER(S): Daniele Reeder MD ANESTHESIA: 2% lidocaine, Fentanyl and Versed TECHNIQUE: Informed written consent obtained. ??Patient brought to the ultrasound suite. ??The liver was assessed with ultrasound and images were saved to PACS. ??The overlying skin was then prepped and draped usual sterile fashion. ??A timeout was then performed. 2% lidocaine used for skin anesthesia. ?? Moderate sedation: Under direct physician supervision, the patient was moderately sedated with ??FENTANYL and VERSED IV for a total of 20 minutes. An independent interventional radiology nurse observer trained in conscious sedation provided continuous physiologic monitoring of the patient during the entirety of the procedure through recovery. Small stab incision made with a #11 blade scalpel. ??A 17-gauge introducer needle was advanced into the liver under continuous ultrasound guidance. ??Following this 18-gauge biopsy needle was utilized to obtain a biopsy specimen. ?? This was repeated a total 3 times. ??Biopsy specimens were placed in formalin. A Gelfoam slurry was introduced into the needle track outside of the liver. ??The introducer needle was removed and hemostasis was achieved. ??A sterile dressing was then applied. Subsequent ultrasound demonstrates no immediate complications. ?? Patient discharged to the recovery unit in stable condition. ?? PLAN: Routine post procedure monitoring. -------- FINAL REPORT -------- Dictated By: Daniele Reeder Dictated Date: 04/09/2024 11:44 ET Assigned Physician: Daniele Reeder Reviewed and Electronically Signed By: Daniele Reeder Signed Date: 04/09/2024 11:46 ET Workstation ID: [id number] Transcribed By: Self Edit Transcribed Date: 04/09/2024 11:44 ET Procedure Note Daniele Reeder MD - 04/09/2024 Ultrasound-guided liver biopsy INDICATION: increased alkaline phosphatase negative AMA CONCLUSION: Successful ultrasound guided biopsy. ELECTRONIC WARFARE OFFICER(S): Daniele Reeder MD ANESTHESIA: 2% lidocaine, Fentanyl and Versed TECHNIQUE: Informed written consent obtained. Patient brought to theultrasound suite. The liver was assessed with ultrasound and images weresaved to PACS. The overlying skin was then prepped and draped usualsterile fashion. A timeout was then performed. 2% lidocaine used for skin anesthesia. Moderate sedation: Under direct physician supervision, the patient wasmoderately sedated with FENTANYL and VERSED IV for a total of 20 minutes.An independent interventional radiology nurse observer trained inconscious sedation provided continuous physiologic monitoring of thepatient during the entirety of the procedure through recovery. Small stab incision made with a #11 blade scalpel. A 17-gauge introducerneedle was advanced into the liver under continuous ultrasound guidance.Following this 18- gauge biopsy needle was utilized to obtain a biopsyspecimen. This was repeated a total 3 times. Biopsy specimens wereplaced in formalin. A Gelfoam slurry was introduced into the needle track outside of theliver. The introducer needle was removed and hemostasis was achieved. Asterile dressing was then applied. Subsequent ultrasound demonstrates no immediate complications. Patient discharged to the recovery unit in stable condition. PLAN: Routine post procedure monitoring. -------- FINAL REPORT -------- Dictated By: Daniele Reeder Dictated Date: 04/09/2024 11:44 ET Assigned Physician: Daniele Reeder Reviewed and Electronically Signed By: Daniele Reeder Signed Date: 04/09/2024 11:46 ET Workstation ID: [id number] Transcribed By: Self Edit Transcribed Date: 04/09/2024 11:44 ET us Leif STANTON IMG US PROCEDURES Final Resu lt * Protime-INR (04/09/2024 9:44 AM EST) Only the most recent of2 resultswithin the time period is included. Protime 12.4 10.6 - 13.9 sec LAB COAGULATION METHOD 04/09/2024 10:17 AM EST [facility] INR 1.0 LAB COAGULATION METHOD 04/09/2024 10:17 AM EST [facility] Blood Venous blood specimen / Unknown Venipuncture / Unknown 04/09/2024 9:44 AM EST 04/09/2024 10:04 AM EST Daniele Reeder MD LAB BLOOD ORDERABLES Final Resul t [facility] [address] [place] [address], [place] [phone] * Oxcarbazepine level (04/01/2024 11:00 AM EST) Oxcarbazepine 32.0 10 - 35 ug/mL 04/03/2024 8:59 AM EST [facility] Comment: If applicable, any drug confirmation testing reported here was developed and the performance characteristics determined by [facility]. This confirmation testing has not been cleared or approved by the FDA. The laboratory is regulated under CLIA as qualified to perform high-complexity testing. This test is used for patient testing purposes. It should not be regarded as investigational or for research. Test performed at [facility], [address] [place], [place] ??[address] ? [phone] Ritika Nunes MD, PhD - [employer] Consultant Blood Venous blood specimen / Unknown Venipuncture / Unknown 04/01/2024 11:00 AM EST 04/01/2024 11:13 AM EST Elizabeth Hummel RN LAB BLOOD ORDERABLES Final Resul t [facility] [address] [place] [address] * Activated partial thromboplastin time (04/01/2024 11:00 AM EST) aPTT 29.7 24.1 - 39.3 sec LAB COAGULATION METHOD 04/01/2024 11:28 AM EST [facility] Blood Venous blood specimen / Unknown Venipuncture / Unknown 04/01/2024 11:00 AM EST 04/01/2024 11:13 AM EST Leif STANTON LAB BLOOD ORDERABLES Final R esult Performing Organization Address [facility]/ZIP Co de Phone Number [facility] [address] [place] [address], * (ABNORMAL) C-reactive protein (04/01/2024 11:00 AM EST) C-Reactive Protein 4.34(H) <=0.50 mg/dL LAB CHEMISTRY METHOD 04/01/2024 12:05 PM EST [facility] Blood Venous blood specimen / Unknown Venipuncture / Unknown 04/01/2024 11:00 AM EST 04/01/2024 11:13 AM EST Timothy Martinez MD LAB BLOOD ORDERABLES Final Resul t Performing Organization Address [facility] Co de Phone Number [facility] [address] [place] [address], * [place] level (04/01/2024 11:00 AM EST) [place] Level 0.6 0.6 - 1.2 mEq/L LAB CHEMISTRY METHOD 04/01/2024 12:12 PM EST [facility] Blood Venous blood specimen / Unknown Venipuncture / Unknown 04/01/2024 11:00 AM EST 04/01/2024 11:13 AM EST Elizabeth Hummel RN LAB BLOOD ORDERABLES Final Resul t Performing Organization Address City/[facility]/ZIP Co de Phone Number [facility] [address] [place] [address], from Last 3 Months Insurance MEDICARE BLUE CROSS - [place] Advance Directives Documents on File Type Date Recorded Patient Mds Rn Expl anation Health Care Decision (hx) 06/10/2018 AD BOLDEN DIRECTIVE Health Care Decision (hx) 06/10/2018 AD BOLDEN DIRECTIVE Health Care Decision (hx) 06/10/2018 AD BOLDEN DIRECTIVE Health Care Decision (hx) 06/10/2018 AD BOLDEN DIRECTIVE Health Care Decision (hx) 06/10/2018 AD BOLDEN DIRECTIVE Health Care Decision (hx) 06/10/2018 AD BOLDEN DIRECTIVE Health Care Decision (hx) 06/10/2018 AD BOLDEN DIRECTIVE Health Care Decision (hx) 06/10/2018 AD BOLDEN DIRECTIVE Health Care Decision (hx) 06/10/2018 AD BOLDEN DIRECTIVE Health Care Decision (hx) 06/10/2018 AD BOLDEN DIRECTIVE Health Care Decision (hx) 06/10/2018 AD BOLDEN DIRECTIVE Health Care Decision (hx) 06/10/2018 AD BOLDEN DIRECTIVE Health Care Decision (hx) 06/10/2018 AD BOLDEN DIRECTIVE Health Care Decision (hx) 06/10/2018 AD BOLDEN DIRECTIVE Health Care Decision (hx) 06/10/2018 AD BOLDEN DIRECTIVE Health Care Decision (hx) 06/10/2018 AD BOLDEN DIRECTIVE Health Care Decision (hx) 06/10/2018 AD BOLDEN DIRECTIVE Health Care Decision (hx) 06/10/2018 AD BOLDEN DIRECTIVE Health Care Decision (hx) 06/10/2018 AD BOLDEN DIRECTIVE Health Care Decision (hx) 06/10/2018 AD BOLDEN DIRECTIVE Health Care Decision (hx) 06/10/2018 AD BOLDEN DIRECTIVE Health Care Decision (hx) 06/10/2018 AD BOLDEN DIRECTIVE Health Care Decision (hx) 06/10/2018 AD BOLDEN DIRECTIVE Health Care Decision (hx) 06/10/2018 AD BOLDEN DIRECTIVE Health Care Decision (hx) 06/10/2018 AD BOLDEN DIRECTIVE Health Care Decision (hx) 06/10/2018 AD BOLDEN DIRECTIVE Health Care Decision (hx) 06/10/2018 AD BOLDEN DIRECTIVE Health Care Decision (hx) 06/10/2018 AD BOLDEN DIRECTIVE Health Care Decision (hx) 06/10/2018 AD BOLDEN DIRECTIVE Health Care Decision (hx) 06/10/2018 AD BOLDEN DIRECTIVE Health Care Decision (hx) 06/10/2018 AD BOLDEN DIRECTIVE Health Care Decision (hx) 06/10/2018 AD BOLDEN DIRECTIVE Health Care Decision (hx) 06/10/2018 AD BOLDEN DIRECTIVE Health Care Decision (hx) 06/10/2018 AD BOLDEN DIRECTIVE Health Care Decision (hx) 06/10/2018 AD BOLDEN DIRECTIVE Health Care Decision (hx) 06/10/2018 AD BOLDEN DIRECTIVE Health Care Decision (hx) 06/10/2018 AD BOLDEN DIRECTIVE Health Care Decision (hx) 06/10/2018 AD BOLDEN DIRECTIVE Health Care Decision (hx) 06/10/2018 AD BOLDEN DIRECTIVE Health Care Decision (hx) 06/10/2018 AD BOLDEN DIRECTIVE Health Care Decision (hx) 06/10/2018 AD BOLDEN DIRECTIVE Health Care Decision (hx) 06/10/2018 AD BOLDEN DIRECTIVE Health Care Decision (hx) 06/10/2018 AD BOLDEN DIRECTIVE Health Care Decision (hx) 06/10/2018 AD BOLDEN DIRECTIVE Health Care Decision (hx) 06/10/2018 AD BOLDEN DIRECTIVE Health Care Decision (hx) 06/10/2018 AD BOLDEN DIRECTIVE Health Care Decision (hx) 06/10/2018 AD BOLDEN DIRECTIVE Health Care Decision (hx) 06/10/2018 AD BOLDEN DIRECTIVE Health Care Decision (hx) 06/10/2018 AD BOLDEN DIRECTIVE Health Care Decision (hx) 06/10/2018 AD BOLDEN DIRECTIVE Health Care Decision (hx) 06/10/2018 AD BOLDEN DIRECTIVE Health Care Decision (hx) 06/10/2018 AD BOLDEN DIRECTIVE Health Care Decision (hx) 06/10/2018 AD BOLDEN DIRECTIVE Health Care Decision (hx) 06/10/2018 AD BOLDEN DIRECTIVE Health Care Decision (hx) 06/10/2018 AD BOLDEN DIRECTIVE Health Care Decision (hx) 06/10/2018 AD BOLDEN DIRECTIVE Health Care Decision (hx) 06/10/2018 AD BOLDEN DIRECTIVE Health Care Decision (hx) 06/10/2018 AD BOLDEN DIRECTIVE Health Care Decision (hx) 06/10/2018 AD BOLDEN DIRECTIVE Health Care Decision (hx) 06/10/2018 AD BOLDEN DIRECTIVE Health Care Decision (hx) 06/10/2018 AD BOLDEN DIRECTIVE Health Care Decision (hx) 06/10/2018 AD BOLDEN DIRECTIVE Health Care Decision (hx) 06/10/2018 AD BOLDEN DIRECTIVE Health Care Decision (hx) 06/10/2018 AD BOLDEN DIRECTIVE Health Care Decision (hx) 06/10/2018 AD BOLDEN DIRECTIVE Health Care Decision (hx) 06/10/2018 AD BOLDEN DIRECTIVE Health Care Decision (hx) 06/10/2018 AD BOLDEN DIRECTIVE Health Care Decision (hx) 06/10/2018 AD BOLDEN DIRECTIVE Health Care Decision (hx) 06/10/2018 AD BOLDEN DIRECTIVE Health Care Decision (hx) 06/10/2018 AD BOLDEN DIRECTIVE Health Care Decision (hx) 06/10/2018 AD BOLDEN DIRECTIVE Health Care Decision (hx) 06/10/2018 AD BOLDEN DIRECTIVE Health Care Decision (hx) 06/10/2018 AD BOLDEN DIRECTIVE Health Care Decision (hx) 06/10/2018 AD BOLDEN DIRECTIVE Health Care Decision (hx) 06/10/2018 AD BOLDEN DIRECTIVE Health Care Decision (hx) 06/10/2018 AD BOLDEN DIRECTIVE Health Care Decision (hx) 06/10/2018 AD BOLDEN DIRECTIVE Health Care Decision (hx) 06/10/2018 AD BOLDEN DIRECTIVE Health Care Decision (hx) 06/10/2018 AD BOLDEN DIRECTIVE Health Care Decision (hx) 06/10/2018 AD BOLDEN DIRECTIVE Health Care Decision (hx) 06/10/2018 AD BOLDEN DIRECTIVE Health Care Decision (hx) 06/10/2018 AD BOLDEN DIRECTIVE Health Care Decision (hx) 06/10/2018 AD BOLDEN DIRECTIVE Health Care Decision (hx) 06/10/2018 AD BOLDEN DIRECTIVE Health Care Decision (hx) 06/10/2018 AD BOLDEN DIRECTIVE Health Care Decision (hx) 06/10/2018 AD BOLDEN DIRECTIVE Health Care Decision (hx) 06/10/2018 AD BOLDEN DIRECTIVE Health Care Decision (hx) 06/10/2018 AD BOLDEN DIRECTIVE Health Care Decision (hx) 06/10/2018 AD BOLDEN DIRECTIVE Health Care Decision (hx) 06/10/2018 AD BOLDEN DIRECTIVE Health Care Decision (hx) 06/10/2018 AD BOLDEN DIRECTIVE Health Care Decision (hx) 06/10/2018 AD BOLDEN DIRECTIVE Health Care Decision (hx) 06/10/2018 AD BOLDEN DIRECTIVE Health Care Decision (hx) 06/10/2018 AD BOLDEN DIRECTIVE Health Care Decision (hx) 06/10/2018 AD BOLDEN DIRECTIVE Health Care Decision (hx) 06/10/2018 AD BOLDEN DIRECTIVE Health Care Decision (hx) 06/10/2018 AD BOLDEN DIRECTIVE Health Care Decision (hx) 06/10/2018 AD BOLDEN DIRECTIVE Health Care Decision (hx) 06/10/2018 AD BOLDEN DIRECTIVE Health Care Decision (hx) 06/10/2018 AD BOLDEN DIRECTIVE Care Teams Director Of Operations Relationship Specialty Start Date End Date Bernie Aquino NP [address] [facility] [place] [address] PCP - General Family Medicine 10/05/21
--- OUTSIDE RECORDS SUMMARY | 2024-07-02 09:43 | XMS_ITS | Encounter Summary ---
Author Organization [facility] Address [address] [place] [address] Care Team Providers Care Geographic Analyst Name Role Phone Bernie Aquino HAIRS[employer]ING TRUER Primary Care Provider [phone] Reason for Visit * Reason Comments Headache Headache since Encounter Details Date Type Department Care Team (Late st Contact Info) Description 06/05/2024 7:41 AM EST - 06/05/2024 9:40 AM EST Emergency [facility] Emergency [address] [place] [id number] Mitesh Boyd MD [address] [place] [address] Acute nonintractable headache, unspecified headache type (Primary Dx) Discharge Disposition: Home or Self Care Social History Tobacco Use Types Packs/Day Years Used Date Smoking Tobacco: Never Smokeless Tobacco: Never Alcohol Use Standard Drinks/Week Comments Never 0 (1 standard drink = 0.6 oz pur e alcohol) Comments No Sex and Gender Information Value Date Recorded Sex Assigned at Female 04/10/2024 9:15 PM EST Legal Sex Female 9:58 AM EST Gender Identity Female 04/10/2024 9:15 PM EST Sexual Orientation Straight 04/10/2024 9: 15 PM EST documented as of this encounter Last Filed Vital Signs Vital Sign Reading Time Taken Comments Blood Pressure 125/84 06/05/2024 8:14 AM EST Pulse 93 06/05/2024 8:14 AM EST Temperature 36.7 ??C (98.1 ??F) 06/04/2024 9:05 PM ES T Respiratory Rate 20 06/05/2024 8:14 AM EST Oxygen Saturation 98% 06/05/2024 8:14 AM EST Inhaled Oxygen Concentration - - Weight 74.4 kg (164 lb) 06/04/2024 9:05 PM EST Height 162.6 cm (5' 4 ) 06/04/2024 9:05 PM EST Body Mass Index 28.15 06/04/2024 9:05 PM EST documented in this encounter Functional Status * Are you deaf or do you have serious difficulty hearing? Answer Date of Assessment Author No 05/20/2024 3:30 AM EST Annetta, As jenifer Mcclure RN * Are you blind or do you have serious difficulty seeing, even when wearing glasses? Answer Date of Assessment Author No 05/20/2024 3:30 AM EST Annetta, As jenifer Mcclure RN * Do you have serious difficulty walking or climbing stairs? Answer Date of Assessment Author No 05/20/2024 3:30 AM EST Annetta, As jenifer Mcclure RN * Do you have serious difficulty dressing or bathing? Answer Date of Assessment Author No 05/20/2024 3:30 AM LANCE Littlejohn, As jenifer Mcclure RN * Because of a physical, mental, or emotional condition, do you have serious difficulty doing errandsalone such as visiting the doctor? Answer Date of Assessment Author No 05/20/2024 3:30 AM Denae Escobedo RN documented as of this encounter Mental Status * Because of a physical, mental, or emotional condition, do you have serious difficulty concentrating, remembering, or making decisions? (5 years old or older) Answer Entry Date Author No 05/20/2024 3:30 AM Denae Escobedo RN documented in this encounter Discharge Instructions * Discharge Instructions* ROMY Oliver - 06/05/2024 9:41 AM EST Follow-up with your PCP and neurology. * Attachments The following attachments cannot be sent through Care Everywhere. * Headache (Cypriot) documented in this encounter Medications at Time of Discharge aMILoride (MIDAMOR) 5 mg tablet Take 2 tablets (10 mg total) by mouth 1 (one) time each day. atorvastatin (LIPITOR) 10 mg tablet Take 4 tablets (40 mg total) by mouth at bedtime. 1 benztropine (COGENTIN) 1 mg tablet Take 1 tablet (1 mg total) by mouth. cetirizine (ZyrTEC) 10 mg tablet Take 1 tablet (10 mg total) by mouth 1 (one) time each day. 2 EPINEPHrine (EPIPEN) 0.3 mg/0.3 mL injection Inject 0.3 mL (0.3 mg total) into the thigh. 3 famotidine (PEPCID) 20 mg tablet Take 1 tablet (20 mg total) by mouth. 2 fluticasone-umeclid inium-vilanterol (Trelegy Ellipta) 100-62.5-25 mcg inhaler Inhale 1 puff (100 mcg total) by mouth. 2 gabapentin (NEURONTIN) 300 mg capsule Take 2 capsules (600 mg total) by mouth 3 (three) times a day. 4 hepatitis B immune globulin 220 unit/mL solution 20 GRAMS EVERY 3 WEEKS, 0 Refills, Maintenance, 05/11/21 10:18:00 EST, Partial fill upon patient request if the prescription is for a schedule II opioid drug. 1 HYDROmorphone (DILAUDID) 2 mg tablet 300 tablets (600 mg total) 3 (three) times a day. 4 hydrOXYzine HCL (ATARAX) 25 mg tablet Take 1 tablet (25 mg total) by mouth 2 (two) times a day. 4 hydrOXYzine pamoate (VISTARIL) 50 mg capsule Take 1 capsule (50 mg total) by mouth. 6 insulin aspart (NovoLOG Flexpen U-100 Insulin) 100 unit/mL (3 mL) injection pen 9 lamoTRIgine (LaMICtal) 25 mg tablet Take 2 tablets (50 mg total) by mouth 1 (one) time each day in the morning. 5 levoFLOXacin (LEVAQUIN) 500 mg tablet Take 1 tablet (500 mg total) by mouth 1 (one) time each day. for 7 days 4 lidocaine (LMX) 4 % cream Apply topically 4 (four) times a day if needed for mild pain. 30 g 4 05/10/20 25 loperamide (IMODIUM) 2 mg capsule Take 1 capsule (2 mg total) by mouth. 4 magnesium oxide (MAG-OX) 400 mg magnesium tablet Take 1 tablet (400 mg total) by mouth 1 (one) time each day. metFORMIN (GLUMETZA) 1,000 mg 24 hr tablet Take 1 tablet (1,000 mg total) by mouth 1 (one) time each day with dinner. Do not crush, chew, or split. montelukast (SINGULAIR) 10 mg tablet Take 1 tablet (10 mg total) by mouth at bedtime. norethindrone (CITLALY,KATHY,MERCY ER,MICRONOR) 0.35 mg tablet Take 1 tablet (0.35 mg total) by mouth 1 (one) time each day. ondansetron (ZOFRAN) 4 mg tablet Take 1 tablet (4 mg total) by mouth every 8 (eight) hours if needed for nausea or vomiting. ondansetron ODT (ZOFRAN-ODT) 4 mg disintegrating tablet Let 1 tablet dissolve under the tongue three times daily as needed for nausea or vomiting. 10 tablet 5 OXcarbazepine (TRILEPTAL) 300 mg tablet Take 3 tablets (900 mg total) by mouth 2 (two) times a day. oxyCODONE (ROXICODONE) 5 mg immediate release tabletIndications:O ther acute postprocedural pain Take 1 tablet (5 mg total) by mouth every 6 (six) hours if needed for severe pain. Max Daily Amount: 20 mg 15 tablet 4 predniSONE (DELTASONE) 20 mg tablet See Instructions, 1-2 tablet By Mouth Daily, PRN, 0 Refills, Maintenance, 04/25/24 10:42:00 AM EST, Partial fill upon patient request if the prescription is for a schedule II opioid drug. 2 topiramate (TOPAMAX) 50 mg tablet Take 1 tablet (50 mg total) by mouth 2 (two) times a day. Trulicity 1.5 mg/0.5 mL pen injector injection Inject 0.5 mL (1.5 mg total) under the skin. 4 venlafaxine (EFFEXOR) 75 mg tablet Take 1 tablet (75 mg total) by mouth 2 (two) times a day. Xolair 300 mg/2 mL syringe 5 documented as of this encounter Discharge Disposition Disposition Code Departure Means Destination Comment s Home or Self Care documented in this encounter Progress Notes * Tanya Nick RN - 06/04/2024 9:00 PM EST PT stakes a hx of migraines, states she also had a concussion 05/09 and has been having increased migraines. Pt states she has been having a right sided migraine since Sunday, pain on right side of head, eye, face, photosensitivity, nausea. Pt went to her eye doctor Sunday who is monitoring her for increased ocular pressure, states she goes every 6 months to him. Pt states she has tried Fioricetand Zofran for nausea and it's not helping. States the neurologist she usually sees is not at the practice anymore so she can't see him. Neuro's intact, face symmetrical, all limbs string and equal strength, PERRLA. * ROMY Oliver - 06/04/2024 8:38 PM EST Emergency Medicine Note Patient Name: Meredith Garcia Initial Evaluation: 06/04/2024 : 1975 Patient's PCP: Bernie Aquino NP Emergency Physician: ROMY Oliver History of Present Illness Chief Complaint: Chief Complaint Patient presents with Headache Headache since sunday HPI: This is a 48-year-old female with past medical history as listed below who presents to the ED complaining of right sided headache pain. She has had a headache since Sunday. She has a history of migraines and states that she think she also has a migraine but the pain on the right side of her head feels different and is located mainly behind her right eye. She has some light sensitivity. She saw her eye doctor yesterday and was told she does not have glaucoma. They check her pressures every 6 months. She denies any vision changes. She does report a concussion at the end of April after hitting her head on her piano. Denies fever, rash or neck pain. She tried Fioricet and a triptan at home without relief of the headache. She also has nausea without vomiting. ROS: GENERAL: No fever, no chills, no acute distress OPHTHALMOLOGY: No vision changes, no redness, or discharge, + photosensitivity ENT: No sore throat , no nosebleed CARDIOVASCULAR: No chest pain, no peripheral edema RESPIRATORY: No dyspnea, no sputum production, and no cough MUSCULOSKELETAL: No myalgias, no back pain, and no neck pain. GI: No abdominal pain, + nausea, no vomiting, no diarrhea. No black stool, bright red blood per rectum, or constipation. GENITOURINARY: No dysuria, no urgency, no frequency NEUROLOGY: No paresthesias, no weakness, + headache PSYCHIATRIC: No depression, no suicidality, or intent of self-harm DERMATOLOGY: No rash no pruritus IMMUNOLOGY: No immunocompromise HEMATOLOGY: No bleeding, no bruising Previous History 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, nephrogenic (CMS/HCC) Diabetes mellitus (CMS/HCC) Familial Mediterranean fever (CMS/HCC) Hypoparathyroidism (CMS/HCC) Hypothyroid Migraines WALTERS (nonalcoholic steatohepatitis) History reviewed. No pertinent surgical history. Social History Tobacco Use Smoking status: Never Smokeless tobacco: Never Substance Use Topics Alcohol use: Never Drug use: Not Currently Types: Marijuana/Cannabis No family history on file. is allergic to demerol [meperidine], morphine, nsaids (non-steroidal anti- inflammatory drug), amoxicillin-pot clavulanate, azithromycin, reglan [metoclopramide hcl], adhesive tape-silicones, and flonase [fluticasone]. No current facility-administered medications on file prior to encounter. Current Outpatient Medications on File Prior to Encounter Medication Sig Dispense Refill aMILoride (MIDAMOR) 5 mg tablet Take 2 tablets (10 mg total) by mouth 1 (one) time each day. atorvastatin (LIPITOR) 10 mg tablet Take 4 tablets (40 mg total) by mouth at bedtime. benztropine (COGENTIN) 1 mg tablet Take 1 tablet (1 mg total) by mouth. cetirizine (ZyrTEC) 10 mg tablet Take 1 tablet (10 mg total) by mouth 1 (one) time each day. cyclobenzaprine (FLEXERIL) 10 mg tablet Take 1 tablet (10 mg total) by mouth 2 (two) times a day ifneeded for muscle spasms for up to 10 days. 20 tablet 0 famotidine (PEPCID) 20 mg tablet Take 1 tablet (20 mg total) by mouth. gabapentin (NEURONTIN) 300 mg capsule Take 1 capsule (300 mg total) by mouth. hydrOXYzine HCL (ATARAX) 25 mg tablet Take 1 tablet (25 mg total) by mouth 2 (two) times a day. lidocaine (LMX) 4 % cream Apply topically 4 (four) times a day if needed for mild pain. 30 g 0 magnesium oxide (MAG-OX) 400 mg magnesium tablet Take 1 tablet (400 mg total) by mouth 1 (one) timeeach day. metFORMIN (GLUMETZA) 1,000 mg 24 hr tablet Take 1 tablet (1,000 mg total) by mouth 1 (one) time each day with dinner. Do not crush, chew, or split. montelukast (SINGULAIR) 10 mg tablet Take 1 tablet (10 mg total) by mouth at bedtime. norethindrone (CITLALY,KATHY,STACIA,MICRONOR) 0.35 mg tablet Take 1 tablet (0.35 mg total) by mouth1 (one) time each day. ondansetron (ZOFRAN) 4 mg tablet Take 1 tablet (4 mg total) by mouth every 8 (eight) hours if needed for nausea or vomiting. ondansetron ODT (ZOFRAN-ODT) 4 mg disintegrating tablet Let 1 tablet dissolve under the tongue three times daily as needed for nausea or vomiting. 10 tablet 0 OXcarbazepine (TRILEPTAL) 300 mg tablet Take 1 tablet (300 mg total) by mouth 2 (two) times a day. oxyCODONE (ROXICODONE) 5 mg immediate release tablet Take 1 tablet (5 mg total) by mouth every 6 (six) hours if needed for severe pain. Max Daily Amount: 20 mg 15 tablet 0 topiramate (TOPAMAX) 50 mg tablet Take 1 tablet (50 mg total) by mouth 2 (two) times a day. Trulicity 1.5 mg/0.5 mL pen injector injection Inject 0.5 mL (1.5 mg total) under the skin. venlafaxine (EFFEXOR) 75 mg tablet Take 1 tablet (75 mg total) by mouth 2 (two) times a day. Physical Exam ED Triage Vitals [06/04/245] Temp Heart Rate Resp BP 36.7 ??C (98.1 ??F) 109 18 117/81 SpO2 Temp Source Heart Rate Source Patient Position 97 % Oral Monitor Sitting BP Location FiO2 (%) Right arm -- General: Well-appearing, well nourished, in no acute distress HEENT: PERRL, EOMI, external ears and nose appear unremarkable, airway is patent Neck: Supple, full range of motion Chest: Clear to auscultation; no evidence of respiratory distress Circulatory: RRR, extremities well perfused Abdomen: Non-distended, Non-Tender Extremities: Normal ROM, No edema Skin: Warm and dry Neuro: Alert and oriented, no focal deficits Results Labs Reviewed BASIC METABOLIC PANEL - Abnormal Result Value Sodium 135 Potassium 4.0 Chloride 108 CO2 22 Anion Gap 5 Glucose 197 (*) BUN 17 Creatinine 1.08 eGFR 63 BUN/Creatinine Ratio 15.7 Calcium 8.8 MAGNESIUM - Abnormal Magnesium 1.7 (*) CBC WITH AUTO DIFFERENTIAL - Abnormal WBC 9.7 RBC 5.80 (*) Hemoglobin 11.9 Hematocrit 40.9 MCV 70.6 (*) MCH 20.6 (*) MCHC 29.1 (*) RDW 19.1 (*) Platelets 415 (*) MPV 10.0 NRBC 0.0 NRBC Absolute 0.00 Neutrophils Relative 60.6 Lymphocytes Relative 25.2 Monocytes Relative 9.2 Eosinophils Relative 3.5 Basophils Relative 1.1 Immature Granulocytes Relative 0.4 Neutrophils Absolute 5.88 Lymphocytes Absolute 2.44 Monocytes Absolute 0.89 Eosinophils Absolute 0.34 Basophils Absolute 0.11 Immature Granulocytes Absolute 0.04 (*) POC , URINE DIAGNOSTIC - Normal HCG, Ur POC Negative POC hCG Int QC Pass? Yes EXPIRATION DATE POC LOT NUMBER POC CBC AND DIFFERENTIAL Narrative: The following orders were created for panel order CBC and differential. Procedure Abnormality Status --------- ------ CBC auto differential[[id number]] Abnormal Final result Please view results for these tests on the individual orders. SEDIMENTATION RATE C-REACTIVE PROTEIN POCT GLUCOSE, BLOOD Abnormal Labs Reviewed BASIC METABOLIC PANEL - Abnormal; Notable for the following components: Result Value Glucose 197 (*) All other components within normal limits MAGNESIUM - Abnormal; Notable for the following components: Magnesium 1.7 (*) All other components within normal limits CBC WITH AUTO DIFFERENTIAL - Abnormal; Notable for the following components: RBC 5.80 (*) MCV 70.6 (*) MCH 20.6 (*) MCHC 29.1 (*) RDW 19.1 (*) Platelets 415 (*) Immature Granulocytes Absolute 0.04 (*) All other components within normal limits CT Head wo Contrast Final Result No acute intracranial findings. -------- FINAL REPORT -------- Dictated By: Raheem Dias Dictated Date: 06/05/2024 09:29 ET Assigned Physician: Raheem Dias Reviewed and Electronically Signed By: Raheem Dias Signed Date: 06/05/2024 09:31 ET Workstation ID: [id number] Transcribed By: Self Edit Transcribed Date: 06/05/2024 09:29 ET I have discussed the incidental/abnormal imaging and/or lab abnormalities with the patient and haveinstructed them the need for further evaluation and workup with their primary care doctor. I have provided the patient with a paper copy of the abnormality. The laboratory results, imaging results and other diagnostic exam results were reviewed in the EMR. EKG Interpretation Critical Care Time None ? Medical Decision Making Medications magnesium oxide (MAG-OX) tablet 400 mg (400 mg oral Given 06/05/24822) sodium chloride 0.9 % bolus 1,000 mL (1,000 mL intravenous New Bag 06/05/24 0816) prochlorperazine (COMPAZINE) injection 10 mg (10 mg intravenous Given 06/05/24 0819) diphenhydrAMINE (BENADRYL) injection 25 mg (25 mg intravenous Given 06/05/24 0819) methylPREDNISolone sodium succ (SOLU-Medrol) injection 125 mg (125 mg intravenous Given 06/05/24 0820) ED Course as of 06/05/24 0941 Mouna Jun 05, [address] reviewed and reassuring. Patient does report improvement after medications. She will follow-up with her PCP and neurology. Discharged in stable condition. [JH] ED Course User Index [JH] ROMY Oliver Clinical Impressions as of 06/05/24 09 Acute nonintractable headache, unspecified headache type Differential to include ICH, space-occupying lesion, low clinical suspicion for acute angle-closureglaucoma, migraine Patient given IV fluids, Compazine, Benadryl, Solu-Medrol. Head CT pending. Will reevaluate. Procedures Procedures Diagnosis 1. Acute nonintractable headache, unspecified headache type Disposition Discharge ED Prescriptions None Physician Attestation This is a split/shared visit with Mitesh Boyd MD. I personally performed the medical decision making (MDM) for the care of this patient on 06/05/24 as documented below Patient is presenting with right-sided headache, history of migraines this feels atypical she did have a visit with her composition floor layer yesterday, no no reports of acute on closure glaucoma from yesterday's visit or today's physical exam, some tenderness along the temporal area without palpable temporal artery but temporal arteritis consideration will obtain inflammatory markers that have low suspicion, CT was ordered by MICHAEL to evaluate for any intracranial hemorrhage or traumatic brain injury or masses, otherwise anticipating discharge. ROMY Oliver 06/05/24 9:41 AM EST ROMY Oliver PA 06/05/24816 Mitesh Boyd MD 06/05/2452 ROMY Oliver 06/05/24940 Cosigned by Mitesh Boyd MD at 06/05/2024 3:09 PM EST documented in this encounter Plan of Treatment Upcoming Encounters Date Type Department Care Team (Late st Contact Info) Description 07/22/2024 9:00 AM EDT Appointment [facility] [address] [place] [phone] 09/10/2024 9:10 AM EDT Office Visit Gastroenterology - [address] [place] [address] Leif Burciaga PA [address] [place] [address] Pending Results Name Type Priority Associated Diagnoses Date /Time POC , urine manually resulted Point of Care Testing STAT 06/05/2024 8:50 AM EST Scheduled Orders Name Type Priority Associated Diagnoses Orde r Schedule POC , urine manually resulted Point of Care Testing STAT STAT for 1 Occurrences starting 06/05/2024 until 06/05/2024 documented as of this encounter Procedures Procedure Name Priority Date/Time Associated Diagnosis Comments CT HEAD WO CONTRAST STAT 06/05/2024 8 :53 AM EST ECG ANNOTATED 06/05/2024 ECG 12-LEAD STAT 06/04/2024 9:37 PM EST CBC WITH AUTO DIFFERENTIAL STAT 06/04/2024 9:30 PM EST CBC AND DIFFERENTIAL STAT 06/04/2024 9:30 PM EST MAGNESIUM STAT 06/04/2024 9:30 PM EST BASIC METABOLIC PANEL STAT 06/04/2024 9:30 PM EST documented in this encounter Results * CT Head wo Contrast (06/05/2024 8:53 AM EST) Anatomical Region Laterality Modality Head and Neck Computed Tomogra phy 06/05/2024 9:29 AM EST Impressions 06/05/2024 9:31 AM EST No acute intracranial findings. -------- FINAL REPORT -------- Dictated By: Raheem Dias Dictated Date: 06/05/2024 09:29 ET Assigned Physician: Raheem Dias Reviewed and Electronically Signed By: Raheem Dias Signed Date: 06/05/2024 09:31 ET Workstation ID: [id number] Transcribed By: Self Edit Transcribed Date: 06/05/2024 [...] Signed Date: 06/05/2024 09:31 ET Workstation ID: [id number] Transcribed By: Self Edit Transcribed Date: 06/05/2024 09:29 ET Karie STANTON IMG CT PROCEDURES Final Resul t * ECG-Annotated (06/05/2024) Provider Onbase ECG ORDERABLES Final Result * ECG 12 lead (06/04/2024 9:37 PM EST) Ventricular Rate ECG 99 BPM GEMUSE Atrial Rate 99 BPM GEMUSE P-R Interval 162 ms GEMUSE QRS Duration 92 ms GEMUSE Q-T Interval 376 ms GEMUSE QTc 482 ms GEMUSE P Wave Cooter 28 degrees GEMUSE R Cooter 29 degrees GEMUSE T Cooter 44 degrees GEMUSE ECG Interpretation Normal sinus rhythm Prolonged QT Abnormal ECG When compared with ECG of 04-MAY-2024 14:40, No significant change was found Confirmed by Jerome SALAS JOHN ([id number]) on 06/05/2024 10:56:55 AM GEMUSE 06/04/2024 9:37 PM EST 06/05/2024 10:56 AM EST Mitesh Boyd MD ECG ORDERABLES Final Res ult GEMUSE * (ABNORMAL) CBC auto differential (06/04/2024 9:30 PM EST) WBC 9.7 4.8 - 10.8 K/[facility] LAB HEMETOLOGY METHOD 06/04/2024 10:24 PM EST [facility] RBC 5.80(H) 3.80 - 4.80 M/[facility] LAB HEMETOLOGY METHOD 06/04/2024 10:24 PM [facility] Hemoglobin 11.9 11.5 - 16.0 g/dL LAB HEMETOLOGY METHOD 06/04/2024 10:24 PM [facility] Hematocrit 40.9 35.0 - 47.0 % LAB HEMETOLOGY METHOD 06/04/2024 10:24 PM [facility] MCV 70.6(L) 79.0 - 98.0 FL LAB HEMETOLOGY METHOD 06/04/2024 10:24 PM [facility] MCH 20.6(L) 27.0 - 32.0 pcg LAB HEMETOLOGY METHOD 06/04/2024 10:24 PM [facility] MCHC 29.1(L) 32.0 - 37.0 g/dL LAB HEMETOLOGY METHOD 06/04/2024 10:24 PM [facility] RDW 19.1(H) 11.0 - 15.0 % LAB HEMETOLOGY METHOD 06/04/2024 10:24 PM [facility] Platelets 415(H) 130 - 400 K/mcL LAB HEMETOLOGY METHOD 06/04/2024 10:24 PM [facility] MPV 10.0 7.0 - 11.0 FL LAB HEMETOLOGY METHOD 06/04/2024 10:24 PM [facility] NRBC 0.0 <1.0 % LAB HEMETOLOGY METHOD 06/04/2024 10:24 PM [facility] NRBC Absolute 0.00 <0.10 K/mcL LAB HEMETOLOGY METHOD 06/04/2024 10:24 PM [facility] Neutrophils Relative 60.6 % LAB HEMETOLOGY METHOD 06/04/2024 10:24 PM [facility] Lymphocytes Relative 25.2 % LAB HEMETOLOGY METHOD 06/04/2024 10:24 PM EST [facility] Monocytes Relative 9.2 % LAB HEMETOLOGY METHOD 06/04/2024 10:24 PM [facility] Eosinophils Relative 3.5 % LAB HEMETOLOGY METHOD 06/04/2024 10:24 PM [facility] Basophils Relative 1.1 % LAB HEMETOLOGY METHOD 06/04/2024 10:24 PM [facility] Immature Granulocytes Relative 0.4 % LAB HEMETOLOGY METHOD 06/04/2024 10:24 PM [facility] Neutrophils Absolute 5.88 1.50 - 7.00 K/mcL LAB HEMETOLOGY METHOD 06/04/2024 10:24 PM [facility] Lymphocytes Absolute 2.44 1.00 - 5.00 K/mcL LAB HEMETOLOGY METHOD 06/04/2024 10:24 PM [facility] Monocytes Absolute 0.89 0.20 - 1.00 K/mcL LAB HEMETOLOGY METHOD 06/04/2024 10:24 PM [facility] Eosinophils Absolute 0.34 0.00 - 0.50 K/mcL LAB HEMETOLOGY METHOD 06/04/2024 10:24 PM [facility] Basophils Absolute 0.11 0.00 - 0.20 K/mcL LAB HEMETOLOGY METHOD 06/04/2024 10:24 PM [facility] Immature Granulocytes Absolute 0.04(H) 0.00 - 0.03 K/mcL LAB HEMETOLOGY METHOD 06/04/2024 10:24 PM [facility] Blood Venous blood specimen / Unknown Venipuncture / Unknown 06/04/2024 9:30 PM EST 06/04/2024 10:16 PM EST us Mitesh Boyd MD LAB BLOOD ORDERABLES Jie l Result [facility] [address] [place] [address], [place] [phone] * (ABNORMAL) Magnesium (06/04/2024 9:30 PM EST) [facility] Magnesium 1.7(L) 1.9 - 2.6 mg/dL LAB CHEMISTRY METHOD 06/04/2024 10:42 PM EST [facility] Blood Venous blood specimen / Unknown Venipuncture / Unknown 06/04/2024 9:30 PM EST 06/04/2024 10:16 PM EST Mitesh Boyd MD LAB BLOOD ORDERABLES Jie l Result [facility] [address] [place] [address], [place] [phone] * (ABNORMAL) Basic metabolic panel (06/04/2024 9:30 PM EST) [facility] Sodium 135 133 - 145 mmol/L LAB CHEMISTRY METHOD 06/04/2024 10:42 PM [facility] Potassium 4.0 3.5 - 5.5 mmol/L LAB CHEMISTRY METHOD 06/04/2024 10:42 PM [facility] Chloride 108 96 - 110 mmol/L LAB CHEMISTRY METHOD 06/04/2024 10:42 PM [facility] CO2 22 21 - 32 mmol/L LAB CHEMISTRY METHOD 06/04/2024 10:42 PM [facility] Anion Gap 5 3 - 11 LAB CHEMISTRY METHOD 06/04/2024 10:42 PM [facility] Glucose 197(H) 70 - 100 mg/dL LAB CHEMISTRY METHOD 06/04/2024 10:42 PM [facility] BUN 17 5 - 25 mg/dL LAB CHEMISTRY METHOD 06/04/2024 10:42 PM [facility] Creatinine 1.08 0.50 - 1.10 mg/dL LAB CHEMISTRY METHOD 06/04/2024 10:42 PM EST [facility] eGFR 63 >=60 mL/min/1. 73m2 LAB CHEMISTRY METHOD 06/04/2024 10:42 PM EST [facility] Comment:Calculation based on the??Chronic Kidney Disease Epidemiology Collaboration (CKD-EPI) equation refit??without adjustment for race. BUN/Creatinine Ratio 15.7 LAB CHEMISTRY METHOD 06/04/2024 10:42 PM EST [facility] Calcium 8.8 8.5 - 10.5 mg/dL LAB CHEMISTRY METHOD 06/04/2024 10:42 PM [facility] Blood Venous blood specimen / Unknown Venipuncture / Unknown 06/04/2024 9:30 PM EST 06/04/2024 10:16 PM EST Mitesh Boyd MD LAB BLOOD ORDERABLES Jie mcclure Result [facility] [address] [place] [address], documented in this encounter Visit Diagnoses Diagnosis Acute nonintractable headache, unspecified headache type- Primary documented in this encounter Administered Medications Inactive Administered Medications - up to 3 most recent administrations Medication Order MAR Action Action Date Dose Rate Site diphenhydrAMINE (BENADRYL) injection 25 mg 25 mg, intravenous, Once, On Sun06/05/24 at 0805, For 1 dose Given 06/05/2024 8:19 AM EST 25 mg magnesium oxide (MAG-OX) tablet 400 mg 400 mg, oral, Daily, First dose on Mouna 06/05/24 at 0900 Given 06/05/2024 8:23 AM EST 400 mg methylPREDNISolone sodium succ (SOLU-Medrol) injection 125 mg 125 mg, intravenous, Once, On Mouna 06/05/24 at 0805, For 1 dose, Reconstitute each 125 mg vial with 2 mL sterile water for injection to a concentration of 62.5 mg/mL. Given 06/05/2024 8:20 AM EST 125 mg prochlorperazine (COMPAZINE) injection 10 mg 10 mg, intravenous, Once, On Mouna 06/05/24 at 0805, For 1 dose Given 06/05/2024 8:19 AM EST 10 mg sodium chloride 0.9 % bolus 1,000 mL 1,000 mL, intravenous, at 2,000 mL/hr, Administer over 30 Minutes, Once, On Mouna 06/05/24 at 0805, For 1 dose New Bag 06/05/2024 8:16 AM EST 1,000 mL 2000 mL/hr documented in this encounter Active and Recently Administered Medications Times are shown in EST. Scheduled Medication Order 06/03/2024 06/04/2024 06/05/2024 diphenhydrAMINE (BENADRYL) injection 25 mg (COMPLETED) 25 mg, intravenous, Once, On Mouna 06/05/24 at 0805, For 1 dose 0819 (Given - Provid er: Link Arreguin RN) magnesium oxide (MAG-OX) tablet 400 mg 400 mg, oral, Daily, First dose on Mouna 06/05/24 at 0900 0823 (Given - Provid er: Link Arreguin RN) methylPREDNISolone sodium succ (SOLU-Medrol) injection 125 mg (COMPLETED) 125 mg, intravenous, Once, On Mouna 06/05/24 at 0805, For 1 dose, Reconstitute each 125 mg vial with 2 mL sterile water for injection to a concentration of 62.5 mg/mL. 0820 (Given - Provid er: Link Arreguin RN) prochlorperazine (COMPAZINE) injection 10 mg (COMPLETED) 10 mg, intravenous, Once, On Mouna 06/05/24 at 0805, For 1 dose 0819 (Given - Provid er: Link Arreguin RN) sodium chloride 0.9 % bolus 1,000 mL (COMPLETED) 1,000 mL, intravenous, at 2,000 mL/hr, Administer over 30 Minutes, Once, On Mouna 06/05/24 at 0805, For 1 dose 0816 (New Bag - Prov ider: Link Arreguin RN)0920 (Stopped - Provider: Link Arreguin RN) documented in this encounter Orders Lab Orders Without Results Count Last Ordered D ate First Ordered Date POCT GLUCOSE, BLOOD 1 06/04/2024 documented in this encounter Care Teams Geographic Analyst Relationship Specialty Start Date End Date Miles, Bernie A, HAIRSPRING TRUER [address] [facility] [place] [address] PCP - General Family Medicine 10/05/21 documented as of this encounter
--- OUTSIDE RECORDS SUMMARY | 2024-07-02 09:43 | XMS_ITS | Clinical Summary ---
Author Organization [facility] Address [address] [place] [address] Care Team Providers Care It Business Analyst Name Role Phone Bernie Aquino Primary Care Provider [phone] Allergies Active Allergy Reactions Criticality Noted Date Comments Adhesive Tape-Silicones Rash Amoxicillin-Pot Clavulanate Other (see comments) 07/01/2021 makes sicker Azithromycin Other (see comments) 07/01/2021 Diarrhea Cat Dander Other (see comments) 07/01/2021 Fluorouracil-Adhesive Bandage Other (see comments) 07/01/2021 Fluticasone Headache Meperidine Nausea,Vomiting Metoclopramide Hcl Dizziness Morphine Nausea,Vomiting Medications omalizumab (XOLAIR) 150 mg injection Inject 150 mg under the skin every 28 days. 3 Active lamoTRIgine 200 mg tablet extended release 24hr Take 600 mg by mouth nightly. Active EPINEPHrine (EPIPEN) 0.3 mg/0.3 mL injection syringe Inject 0.3 mg into the outer thigh muscle as directed as needed for anaphylaxis. 3 Active ipratropium-albu teroL (COMBIVENT RESPIMAT) 20-100 mcg/actuation inhaler Combivent Respimat 20-100 MCG/ACT Inhalation Aerosol Solution INHALE 1 PUFF 4 TIMES DAILY AND PRN(MAXIMUM OF 6 PUFFS IN 24 HOURS) Refills: 0 Active Active colchicine (COLCRYS) 0.6 mg tablet Take 0.6 mg by mouth 2 times a day. 3 Active montelukast (SINGULAIR) 10 mg tablet Singulair 10 MG Oral Tablet 1 TABLET DAILY. Refills: 0 Active Active cetirizine (ZyrTEC) 10 mg tablet Take 10 mg by mouth daily. Active cyclobenzaprine (FLEXERIL) 10 mg tablet TAKE ONE TABLET BY MOUTH AT BEDTIME NEEDED FOR MUSCLE SPASM 0 9 Active CITLALY 0.35 mg tablet Take 1 tablet by mouth daily. 2 9 Active omeprazole (PriLOSEC) 40 mg capsule 2 Active clonazePAM (KlonoPIN) 0.1 mg/mL suspension Take 0.25 mg by mouth. 1 Active albuterol 2.5 mg/3 mL (0.083%) nebulizer solution daily as needed. 2 Active benzonatate (TESSALON) 200 mg capsule TAKE 1 TABLET 3 TIMES DAILY NEEDED FOR COUGH. 2 Active fluticasone-umec lidinium-vilante rol (Trelegy Ellipta) 100-62.5-25 mcg blister with device 2 Active melatonin 5 mg capsule 2 Active ondansetron (ZOFRAN) 4 mg tablet 1 Active OXcarbazepine (TRILEPTAL) 300 mg tablet 450 mg 2 times a day. 2 Active benztropine (COGENTIN) 0.5 mg tablet Take 0.5 mg by mouth. 2 Active cariprazine (VRALYAR) 1.5 mg capsule capsule Take 3 mg by mouth. 2 Active hydroCHLOROthiaz turner (HYDRODIURIL) 25 mg tablet Take 25 mg by mouth. 2 Active atorvastatin (LIPITOR) 20 mg tablet Take 20 mg by mouth once a day. 3 Active melatonin tablet Take 10 mg by mouth. 2 Active hydrOXYzine HCL (ATARAX) 10 mg tablet Take 30 mg by mouth at bed time. Active aMILoride (MIDAMOR) 5 mg tablet Take 5 mg by mouth once a day. Active metFORMIN (GLUCOPHAGE) 500 mg tablet metformin 500 mg tablet TAKE TWO TABLETS BY MOUTH TWICE A DAY 2 Active SITagliptin phosphate (JANUVIA) 100 mg tablet Januvia 100 mg tablet TAKE ONE TABLET BY MOUTH EVERY DAY 2 Active levothyroxine (SYNTHROID, LEVOTHROID) 25 mcg tablet Take 25 mcg by mouth once a day. 3 Active topiramate (TOPAMAX) 50 mg tabletIndication s:Chronic migraine without aura without status migrainosus, not intractable TAKE ONE TABLET BY MOUTH EVERY MORNING AND 4 TABLETS AT NIGHT 150 tablet 6 3 Active Emgality Pen 120 mg/mL pen injectorIndicati ons:Intractable migraine with aura without status migrainosus INJECT 1ML (120MG) UNDER THE SKIN EVERY 28 DAYS 1 mL 11 4 Active rizatriptan (MAXALT) 10 mg tablet Take 1 tablet (10 mg total) by mouth once as needed for migraine for up to 1 dose. May repeat in 2 hours if unresolved. Do not exceed 30 mg in 24 hours. 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 02/03/2022 Acute renal failure 12/20/2021 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 Trigeminal neuralgia 06/07/2021 Bipolar I disorder 05/11/2021 Common variable immunodeficiency 05/11/2021 Bacterial sinusitis 04/15/2021 Tremor 01/30/2019 Overview (01/30/2019): Medication related (lithium, neuroleptics) Diabetes type 2, controlled 05/18/2018 Headache, menstrual migraine 06/28/2016 Memory impairment 03/25/2015 Vestibulopathy 12/01/2013 Intractable migraine with aura without status mi grainosus 12/01/2013 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 Candidal vulvovaginitis 11/15/2010 Obstructive sleep apnea syndrome 11/15/2010 Bilateral hand numbness Left carpal tunnel syndrome Encounters Date Type Department Care Team Description 06/11/2024 Refill [facility] [address] [place] [phone] House Mover Supervisor: Gwen Pitts MA 06/09/2024 Refill [facility] [address] [place] [phone] House Mover Supervisor: Ginger Ness 06/09/2024 Telephone [facility] [address] [address] House Mover Supervisor: Stefany Ramirez LPN 06/04/2024 Telephone [facility] [address] [place] [address] House Mover Supervisor: Stefany Ramirez LPN 05/12/2024 Telephone [facility] [address] [place] [address] House Mover Supervisor: Stefany Ramirez LPN 05/02/2024 Telephone [facility] [address] [place] [address] House Mover Supervisor: Sari Workman Telephone Intake, Staff PAC Patient Request Call Back; PAC Appt Request - Established; PAC Sick/Symptoms from Last 3 Months Family History Medical History Relation Name Comments Diabetes type II Father Other Other 1 Maternal Relati ves Family History of malignant neoplasm Other Other 2 Paternal Relati ves Family History of malignant neoplasm Autism Son Relation Name Status Comments Father Alive Mother Alive Other 1 Other 2 Son Social History Tobacco Use Types Packs/Day Years Used Date Smoking Tobacco: Never Smokeless Tobacco: Never Tobacco Cessation:Counseling Given: Not Answered Alcohol Use Standard Drinks/Week Comments No 0 (1 standard drink = 0.6 oz pur e alcohol) Comments Unknown Sex and Gender Information Value Date Recorded Sex Assigned at Female 03/29/2021 8:39 AM EST Legal Sex Female 9:22 AM EDT Gender Identity Female 03/29/2021 8:39 AM EST Sexual Orientation Straight 03/29/2021 8: 39 AM EST Last Filed Vital Signs Vital Sign Reading Time Taken Comments Blood Pressure 121/82 12/10/2023 3:30 PM EDT Pulse 112 12/10/2023 3:30 PM EDT Temperature 36.4 ??C (97.6 ??F) 06/27/2021 9:02 AM ES T Respiratory Rate 16 01/30/2019 11:05 AM EDT Oxygen Saturation 97% 04/20/2023 8:48 AM EST Inhaled Oxygen Concentration - - Weight 74.4 kg (164 lb) 01/30/2019 11:05 AM EDT Height 162.6 cm (5' 4 ) 04/25/2021 10:57 AM EST Body Mass Index 28.15 01/30/2019 11:05 AM EDT Plan of Treatment Upcoming Encounters Date Type Department Care Team (Late st Contact Info) Description 11/18/2024 10:30 AM EDT Office Visit [facility] [address] [place] [address] House Mover Supervisor: Adrienne Gutiérrez MD [address] [place] [phone] Health Maintenance Due Date Last Done Comments Cervical Cancer Screening 1975 Cologuard 1975 Colon Cancer Screening 1975 Colonoscopy 1975 FOBT / Fit Test 1975 HIV Screening 1975 HPV and Pap Smear 1975 Hemoglobin A1C 1975 Hepatitis C Screening 1975 Pap Smear 1975 Sigmoidoscopy 1975 COVID-19 Vaccine (#1) 10/27/1980 Hepatitis B Vaccines (1 of 3 - 19+ 3-dose series) 10/27/1994 Pneumococcal Vaccine: Pediat jl (0-5 Years) and At-Risk Patients (6-50 Years) (3 of 3 - PPSV23, PCV20 or PCV21) 12/19/2014 05/13/2014, 12/19/2009 Mammogram 2015 Ophthalmology Exam 11/10/2022 11/10/2021, 0 07/01/2021, 07/01/2021, Additional history exists Influenza Vaccine (#1) 2024 9, 02/13/2018, 02/08/2017, Additional history exists Alcohol/Substance Use Screening 05/14/2024 Depression Evaluation 05/14/2024 Social Drivers of Health Hayley ual Screening 05/14/2024 Urine Microalbumin 12/31/2024 01/01/2024 Basic Metabolic Panel 03/15/2025 03/15/2024 , 01/01/2024, 04/20/2023, Additional history exists DTaP,Tdap,and Td Vaccines (4 - Td or Tdap) 07/05/2032 07/05/2022, 09/19/2017, 12/08/2007 RSV Vaccine (60+ years old a nd patients) (1 - 1-dose 75+ series) 10/27/2050 Procedures * Due to [place] bop.fm law, this organization might not be sharing negative HIV tests. Procedure Name Priority Date/Time Associated Diagnosis Comments COMPREHENSIVE METABOLIC PANEL Routine 04/20/2023 9:56 AM EST Chronic migraine without aura without status migrainosus, not intractable HM DIABETES EYE EXAM 11/10/2021 from Last 3 Months or Most Recently Relevant to Health Maintenance Results * Due to [place] bop.fm law, this organization might not be sharing negative HIV tests. * (ABNORMAL) Comprehensive Metabolic Panel (04/20/2023 9:56 AM EST) NA 141 135 - 145 mmol/L 04/20/2023 11:01 AM EST [facility] K 3.6 3.5 - 5.3 mmol/L 04/20/2023 11:01 AM EST [facility] Cl 107 97 - 110 mmol/L 04/20/2023 11:01 AM EST [facility] CO2 21(L) 24 - 32 mmol/L 04/20/2023 11:01 AM [facility] Anion Gap 13 5 - 15 04/20/2023 11:01 AM [facility] Glucose 139(H) 70 - 99 mg/dL 04/20/2023 11:01 AM [facility] Creatinine 0.89 0.50 - 1.20 mg/dL 04/20/2023 11:01 AM [facility] Calcium 9.1 8.7 - 10.7 mg/dL 04/20/2023 11:01 AM [facility] Total Protein 7.1 6.0 - 8.0 g/dL 04/20/2023 11:01 AM [facility] Albumin 4.4 3.5 - 4.8 g/dL 04/20/2023 11:01 AM [facility] Bilirubin, Total 0.2(L) 0.3 - 1.2 mg/dL 04/20/2023 11:01 AM [facility] Alkaline Phosphatase 115 30 - 115 U/L 04/20/2023 11:01 AM [facility] AST 14 10 - 40 U/L 04/20/2023 11:01 AM [facility] ALT 19 10 - 40 U/L 04/20/2023 11:01 AM [facility] BUN 19 7 - 23 mg/dL 04/20/2023 11:01 AM [facility] eGFR 81 >=60 mL/min/1. 73m2 04/20/2023 11:01 AM [facility] Comment:The estimated glomer ular filtration rate (eGFR) is calculated using a new formula developed by the NKF-ASN task force to eliminate race-based correction factors. The new formula uses serum/plasma creatinine, age, and gender to determine eGFR. A value below 60mls/min might indicate kidney disease and will be flagged. For additional information, see Arellano et al, Am J Kidney Dis. 2021;79(2):268- 288, A Unifying Approach for GFR estimation: Recommendations of the NKF-ASN Task Force on Reassessing the Inclusion of Race in Diagnosing Kidney Disease . Blood Structure of peripheral vein / Unknown Venipuncture / Unknown 04/20/2023 9:56 AM EST 04/20/2023 10:09 AM EST us Yeni Brown MD LAB BLOOD ORDERABLES Final R esult [facility] [address] [place] [address], [place] * DIABETES EYE EXAM (11/10/2021) 11/10/2021 us Onbase Scan [facility] Resu lt from Last 3 Months or Most Recently Relevant to Health Maintenance Insurance BCBS OUT OF STATE O [facility] Advance Directives Documents on File Type Date Recorded Patient Block Cleaner Expl [facility] Care Proxy 02/14/2017 2:27 PM Care Teams It Business Analyst Relationship Specialty Start Date End Date Bernie Aquino [address] [place] [phone] PCP - General 08/22/21
--- OUTSIDE RECORDS SUMMARY | 2024-07-02 09:43 | XMS_ITS | Encounter Summary ---
Author Organization [facility] Address [address] [place] [address] Care Team Providers Care Director Embalmer Name Role Phone Bernie Aquino INSTRUCTOR PILOT Primary Care Provider Encounter Details Date Type Department Care Team (Late st Contact Info) Description 06/09/2024 Telephone Gastroenterology - [address] [phone] Manda Seals MD [address] [phone] Social History Tobacco Use Types Packs/Day Years [...] PM EST documented as of this encounter Functional Status * Are you deaf or do you have serious difficulty hearing? Answer Date of Assessment Author No 05/20/2024 3:30 AM EST Denae Littlejohn RN * Are you blind or do you have serious difficulty seeing, even when wearing glasses? Answer Date of Assessment Author No 05/20/2024 3:30 AM LANCE Littlejohn, Denae Mcdaniel RN * Do you have serious difficulty walking or climbing stairs? Answer Date of Assessment Author No 05/20/2024 3:30 AM LANCE Littlejohn, Denae Mcdaniel RN * Do you have serious difficulty dressing or bathing? Answer Date of Assessment Author No 05/20/2024 3:30 AM LANCE Littlejohn, Denae Mcdaniel RN * Because of a physical, mental, [...] Denae Escobedo RN documented in this encounter Plan of Treatment Upcoming Encounters Date Type Department Care Team (Late st Contact Info) Description 07/22/2024 9:00 AM EDT Appointment [facility] [address] [place] [address] 09/10/2024 9:10 AM EDT Office Visit Gastroenterology - [address] [place] [phone] Leif Burciaga PA [address] [place] [address] [place] [phone] documented as of this encounter Visit Diagnoses Not on filedocumented in this encounter Care Teams Director Embalmer Relationship Specialty Start Date End Date Bernie Aquino NP [address] [facility] [place] [address] PCP - General Family Medicine 10/05/21 documented as of this encounter
--- OUTSIDE RECORDS SUMMARY | 2024-07-02 09:43 | XMS_ITS | Encounter Summary ---
Author Organization [employer] Address [address] [place] [address] Care Team Providers Care Residence Life Coordinator Name Role Phone Bernie Aquino HARBOUR MASTER Primary Care Provider [phone] Reason for Visit * Episode Based Medications (Routine) - Authorized Specialty Diagnoses / Procedures Referred By Javier cruz Referred To Contact Diagnoses CVID (common variable immunodeficiency) ([facility]/HCC) Deandre Schroeder MD [address] [place] [phone] Phone: tel: fax: [facility] [address] [place] [phone] Phone: tel: fax: Referral ID Status Reason Start Date Expiration Date V isits Requested Visits Authorized [id number] Authorized 03/10/2024 03/10/2025 1 22 Encounter Details Date Type Department Care Team (Latest Contact Info) Description 06/11/2024 8:10 AM EST - 06/11/2024 11:59 PM EST Hospital Encounter [facility] [address] [place] [phone] Deandre Schroeder MD [address] [place] [address] CVID (common variable immunodeficiency) (CMS/HCC) [...] Sign Reading Time Taken Comments Blood Pressure 113/83 06/11/2024 12:38 PM EST Pulse 108 06/11/2024 12:38 PM EST Temperature 37.1 ??C (98.7 ??F) 06/11/2024 8:18 AM ES T Respiratory Rate - - Oxygen Saturation 98% 06/11/2024 12:38 PM EST Inhaled Oxygen Concentration - - Weight 76 kg (167 lb 9.6 oz) 06/11/2024 8:18 AM EST Height - - Body Mass Index 28.77 06/04/2024 9:05 PM EST documented in this encounter Functional Status * Are you deaf or do you have serious difficulty hearing? Answer Date of Assessment Author No 05/20/2024 3:30 AM EST Denae Littlejohn RN * Are you blind or do you have serious difficulty seeing, even when wearing glasses? Answer Date of Assessment Author No 05/20/2024 3:30 AM EST Denae Littlejohn RN * Do you have serious difficulty walking or climbing stairs? Answer Date of Assessment Author No 05/20/2024 3:30 AM EST Denae Littlejohn RN * Do you have serious difficulty dressing or bathing? Answer Date of Assessment Author No 05/20/2024 3:30 AM Denae Escobedo RN * Because of a physical, mental, or emotional condition, do you have serious difficulty doing errandsalone such as visiting the doctor? Answer Date of Assessment Author No 05/20/2024 3:30 AM EST Denae Littlejohn RN documented as of this encounter Mental Status * Because of a physical, mental, or emotional condition, do you have serious difficulty concentrating, remembering, or making decisions? (5 years old or older) Answer Entry Date Author No 05/20/2024 3:30 AM LANCE LittlejohnDenae RN documented in this encounter Medications at Time [...] mouth 1 (one) time each day. 2 colchicine (COLCRYS) 0.6 mg tablet Take 3 tablets (1.8 mg total) by mouth 1 (one) time each day. Combivent Respimat 20-100 mcg/actuation inhaler INHALE 1 PUFF UP TO FOUR TIMES A DAY IF NEEDED docusate sodium (COLACE) 100 mg capsule take one capsule by mouth two times a day as needed for constipation Emgality Pen 120 mg/mL injection pen INJECT 1ML UNDER THE SKIN EVERY 28 DAYS EPINEPHrine (EPIPEN) 0.3 mg/0.3 mL injection Inject 0.3 mL (0.3 mg total) into the thigh. 3 famotidine (PEPCID) 20 mg tablet Take 1 tablet (20 mg total) by mouth. 2 ferrous gluconate (FERGON) 324 mg (38 mg iron) tabletIndications:L ow iron Take 1 tablet (324 mg total) by mouth 1 (one) time each day. 30 each 2 5 09/08/19 25 fluticasone-umeclid inium-vilanterol (Trelegy Ellipta) 100-62.5-25 mcg inhaler [...] unit/mL (3 mL) injection pen 9 lamoTRIgine (LaMICtal XR) 200 mg tablet extended release 24hr 24 hr tablet Take 1 tablet (200 mg total) by mouth. at bedtime lamoTRIgine (LaMICtal) 25 mg tablet Take 2 tablets (50 mg total) by mouth 1 (one) time each day in the morning. 5 levoFLOXacin (LEVAQUIN) 500 mg tablet Take 1 tablet (500 mg total) by mouth 1 (one) time each day. for 7 days 4 levothyroxine (SYNTHROID, LEVOTHROID) 50 mcg tablet TAKE ONE TABLET BY MOUTH EVERY DAY SUNDAY TO SUNDAY AND 1.5 TABLETS ON SUNDAY lidocaine (LMX) 4 % cream Apply topically 4 (four) times a day if needed for mild pain. 30 g 4 05/10/20 25 loperamide (IMODIUM) 2 mg capsule Take 1 capsule (2 mg total) by mouth. 4 magnesium oxide (MAG-OX) 400 mg magnesium tablet Take 1 tablet (400 mg total) by mouth 1 (one) time each day. melatonin 10 mg tablet Take 1 tablet (10 mg total) by mouth. with dinner metFORMIN (GLUMETZA) 1,000 mg 24 hr tablet Take 1 tablet (1,000 mg total) by mouth 1 (one) time each day with dinner. Do not crush, chew, or split. montelukast (SINGULAIR) 10 mg tablet Take 1 tablet (10 mg total) by mouth at bedtime. norethindrone (CITLALY,KATHY,MERCY ER,MICRONOR) 0.35 mg tablet Take 1 tablet (0.35 mg total) by mouth 1 (one) time each day. omeprazole (PriLOSEC) [address] capsule Take 1 capsule (40 mg total) by mouth 2 (two) times a day. ondansetron (ZOFRAN) 4 mg tablet Take [...] for a schedule II opioid drug. 2 rizatriptan (MAXALT) 10 mg tablet TAKE ONE TABLET BY MOUTH NEEDED FOR MIGRAINE MAY REPEAT IN 2 HOURS IF UNRESOLVED, DO NOT EXCEED 30MG IN 24 HOURS topiramate (TOPAMAX) 50 mg tablet Take 1 [...] Discharge Disposition Disposition Code Departure Means Destination Home or Self Care documented in this encounter Progress Notes * Betsy Erazo RN - 06/11/2024 8:30 AM DANNAncounter addended by: Betsy Erazo RN on: 06/11/2024 1:11 PM Actions taken: Flowsheet accepted * Betsy Erazo RN - 06/11/2024 8:30 AM EST Pt arrives stable for IVIG infusion. Assessment completed and medication list reviewed with patient. Pt followed by multiple providers for her health. Recent concussion due to fall- did seek medical assistance and has been followed. Portacath accessed and hydration started/premedications administered. Pt resting with refreshments and items within reach. 1019- IVIG started 0.5 ml/kg/hr to max of 4 ml/kg/hr. Pt resting with items in reach. Pt enjoying cheese/crackers. 1200-Pt ambulated to BR to void, reports some nausea with movement that she usually takes zofran for at home. Pt denies need for medications at this time. Pt back to chair and reports she feels better. Steady gait observed. 1240- Pt tolerated infusions without incident. Left ambulatory in stable condition with next appts in place. Pt voided again in BR prior to leaving. Pt reports her doctor is supposed to send in separate order for hydration and will follow up with the office about this. documented in this encounter Plan of Treatment Upcoming Encounters Date Type Department Care Team (Late st Contact Info) Description 07/22/2024 9:00 AM EDT Appointment [facility] [address] [place] [phone] 09/10/2024 9:10 AM EDT Office Visit Gastroenterology - [address] [place] [phone] Leif Burciaga [place] [address] [place] [address] documented as of this encounter Visit Diagnoses Diagnosis CVID (common variable immunodeficiency) ([facility])- Primary Common variable immunodeficiency documented in this encounter Administered Medications Inactive Administered Medications - up to 3 most recent administrations Medication Order MAR Action Action Date Dose Rate Site acetaminophen (TYLENOL) tablet 650 mg 650 mg, oral, Once, On Sun06/11/24 at 0830, For 1 doseIndications:CVID (common variable immunodeficiency) ([facility]) Given 06/11/2024 8:40 AM EST 650 mg immune globulin (human) (GAMMAGARD) 10 % infusion 30 g 30 g, intravenous, Once, On Sun06/11/24 at 0830, For 1 dose, Preferred Brand: GammaGard LiquidIndications:CVID (common variable immunodeficiency) ([facility]) Rate/Dose Change 06/11/2024 12:19 PM EST 304 mL/hr Rate/Dose Change 06/11/2024 11:49 AM EST 228 mL /hr Rate/Dose Change 06/11/2024 11:19 AM EST 152 mL /hr sodium chloride 0.9 % bolus 1,000 mL 1,000 mL, intravenous, at 500 mL/hr, Administer over 2 Hours, Once, On Sun06/11/24 at 0830, For 1 doseIndications:CVID (common variable immunodeficiency) ([facility]) New Bag 06/11/2024 8:29 AM EST 1,000 mL 500 mL/hr documented in this encounter Historical Medications * This list may reflect changes made after this encounter. loperamide (IMODIUM) 2 mg capsule Take 1 capsule (2 mg total) by mouth. 01/03/2024 levothyroxine (SYNTHROID, LEVOTHROID) 50 mcg tablet TAKE ONE TABLET BY MOUTH EVERY DAY SUNDAY TO SUNDAY AND 1.5 TABLETS ON SUNDAY lamoTRIgine (LaMICtal XR) 200 mg tablet extended release 24hr 24 hr tablet Take 1 tablet (200 mg total) by mouth. at bedtime lamoTRIgine (LaMICtal) 25 mg tablet Take 2 tablets (50 mg total) by mouth 1 (one) time each day in the morning. 05/16/2024 Combivent Respimat 20-100 mcg/actuation inhaler INHALE 1 PUFF UP TO FOUR TIMES A DAY IF NEEDED insulin aspart (NovoLOG Flexpen U-100 Insulin) 100 unit/mL (3 mL) injection pen 06/12/2018 HYDROmorphone (DILAUDID) 2 mg tablet 300 tablets (600 mg total) 3 (three) times a day. 01/25/2024 Emgality Pen 120 mg/mL injection pen INJECT 1ML UNDER THE SKIN EVERY 28 DAYS fluticasone-umec lidinium-vilante rol (Trelegy Ellipta) 100-62.5-25 mcg inhaler Inhale 1 puff (100 mcg total) by mouth. 09/02/2021 EPINEPHrine (EPIPEN) 0.3 mg/0.3 mL injection Inject 0.3 mL (0.3 mg total) into the thigh. 01/14/2013 docusate sodium (COLACE) 100 mg capsule take one capsule by mouth two times a day as needed for constipation colchicine (COLCRYS) 0.6 mg tablet Take 3 tablets (1.8 mg total) by mouth 1 (one) time each day. rizatriptan (MAXALT) 10 mg tablet TAKE ONE TABLET BY MOUTH NEEDED FOR MIGRAINE MAY REPEAT IN 2 HOURS IF UNRESOLVED, DO NOT EXCEED 30MG IN 24 HOURS predniSONE (DELTASONE) 20 mg tablet See Instructions, 1-2 tablet By Mouth Daily, PRN, 0 Refills, Maintenance, 04/25/24 10:42:00 AM EST, Partial fill upon patient request if the prescription is for a schedule II opioid drug. 08/28/2021 omeprazole (PriLOSEC) [address] capsule Take 1 capsule (40 mg total) by mouth 2 (two) times a day. Xolair 300 mg/2 mL syringe 05/29/2024 melatonin 10 mg tablet Take 1 tablet (10 mg total) by mouth. with dinner hydrOXYzine pamoate (VISTARIL) 50 mg capsule Take 1 capsule (50 mg total) by mouth. 01/11/2016 added in this encounter Orders Medications Ordered That Alex ht Not Have Been Administered Count Last Ordered Date First Ordered Date loratadine (CLARITIN) tablet 10 mg 1 2024 Nursing Count Last Ordered Date First Orde red Date ONC NURSING COMMUNICATION 1 06/11/2024 ONC NURSING COMMUNICATION 5 1 06/11/2024 TREATMENT CONDITIONS 1 06/11/2024 Appointment Requests Count Last Ordered Date Fi rst Ordered Date ONCBCN INFUSION APPOINTMENT REQUEST 08 documented in this encounter Care Teams Residence Life Coordinator Relationship Specialty Start Date End Date Bernie Aquino, XIANG [address] [facility] [place] [address] PCP - General Family Medicine 10/05/21 documented as of this encounter
--- OUTSIDE RECORDS SUMMARY | 2024-07-02 09:43 | XMS_ITS | Encounter Summary ---
Author Organization [facility] Address [address] [place] [address] Care Team Providers Care Plant Care Worker Name Role Phone Bernie Aquino Primary Care Provider [phone] Encounter Details Date Type Department Care Team (Late st Contact Info) Description 06/04/2024 Telephone [facility] [address] [place] [phone] Bar Tacker: Stefany Ramirez LPN [facility] [place], [place] Social History Tobacco Use Types Packs/Day Years [...] encounter Miscellaneous Notes * Telephone Encounter - Stefany Miller LPN - 06/04/2024 1:32 PM EST She fell in April and hit her head she came to the ER and was told she had a concussion. She states since then she states her migraines have become worse she would like to see you sooner. Please advise documented in this encounter Plan of Treatment Upcoming Encounters Date Type Department Care Team (Late st Contact Info) Description 11/18/2024 10:30 AM EDT Office Visit [facility] [address] [place] [address] Bar Tacker: Adrienne Gutiérrez MD [address] [place] [phone] documented as of this encounter Visit Diagnoses Not on filedocumented in this encounter Care Teams Plant Care Worker Relationship Specialty Start Date End Date Bernie Aquino [address] [place] [phone] PCP - General 08/22/21 documented as of this encounter
--- OUTSIDE RECORDS SUMMARY | 2024-07-02 09:43 | XMS_ITS | Continuity of Care Document ---
[facility] Address [address] [place] [address]- Support Name Relationship Address Phone HEMANT LEE [...] Unknown U navailable Care Team Providers Care Chamber Worker Name Role Phone Miles OTOOLE, Bernie Hardy Primary Care Physician Encounter [facility] Date(s): 05/26/24 - 06/25/24 [facility] [address] [place] [address]- Encounter Type: Triage Allergies, Adverse Reactions, Alerts Substance Criticality Severity Reaction Reaction Severity Status azithromycin 1 increases sx's Active morphine vomiting Active Augmentin 2 increases sx Activ e Adhesive Bandage rash Act maddy NSAIDs Active Flonase rhinitis Active Reglan double [...] (oldterm) 8 03/14/09 Given 1Result Comment: [09/19/2017] [id number] 2Result Comment: [02/13/2018] [id number] 3Result Comment: [02/08/2017] [facility] [id number] 4Result Comment: [01/24/2013] ORDERRED BY [...] Maintenance, 07/09/23 2:12:00 PM EST, [facility], 163, cm, 06/06/23 7:29:00 EST, [...] EDT, Route to Pharmacy Electronically, [facility], Partial fill upon patient request [...] EST, Route to Pharmacy Electronically, [facility], 163, cm, 03/07/23 8:42:00 EDT, [...] EDT, Route to Pharmacy Electronically, [facility], 163, cm, 11/22/20 12:47:00 EDT, [...] # 10 mL, 1 Refills, Maintenance, 04/25/24 1:33:00PM EST, [facility], Partial [...] 6:54:00 AM EDT, 04/15/24 6:54:00 AM EST, [facility], Partial fill upon patient request [...] 2 Refills, Maintenance, 06/24/24 8:11:00 AM EST, [facility], 163, cm, 06/12/24 8:08:00 EST, [...] 7:45:00 AM EST, Route to Pharmacy Electronically, [facility], 163, cm, 03/07/24 8:07:00 EDT, [...] 04/25/24 Status: Ordered Repeat number: 1 Pen Cliff, 31 G x 5 mm BD Ultra [...] Member Role: Lifetime Consulting Physician Address: [address] [place] [address] [address] [facility] [place] [address]- [place] [employer]: Name: Lore Clinton RN Position: [facility] AMB Nurse Member Role: Primary Care Nurse Name: Chris Rosenbaum MD Position: [facility] DENTAL SERVICE TECHNICIAN MD Member Role: [employer] DENTAL SERVICE TECHNICIAN Physician Address: [address] [place], [place] [address] [place] [address]- [place] [employer]: Name: Bernie Aquino NP Position: [facility] PCO Associate Professional Member Role: PCP Address: [address] [place] [address]- [place] [employer]: Name: Gregg Hardy MD Position: [facility] Pulmonary MD Member Role: Lifetime Consulting Physician Address: [address] [place] [address]- [place] [employer]: Care Team Related Persons Name: ONDINA SINGLETARY Name: BLAIRE JACOB Insurance Providers Guarantor name: HEMANT LEE Health Plan Information #: 1 Payer: OUT OF STATE PLANS Member Number: NA Policy Number: NA Group Number: NA Health Plan Information #: 2 Payer: MEDICARE PART B OUTPT Member Number: NA Policy Number: NA Group Number: NA Health Plan Information #: 3 Payer: [facility] Member Number: NA Policy Number: NA Group Number: NA
--- OUTSIDE RECORDS SUMMARY | 2024-07-02 09:43 | XMS_ITS | Encounter Summary ---
Author Organization [facility] Address [address] [place] [address] Care Team Providers Care Front Window Cashier Name Role Phone Bernie Aquino Primary Care Provider [phone] Encounter Details Date Type Department Care Team (Late st Contact Info) Description 06/09/2024 Telephone [facility] [address] [place] [address] Technical Information Specialist: Stefany Ramirez LPN [facility] [place], [place] Social History Tobacco Use Types Packs/Day [...] Telephone Encounter - Stefany Miller LPN - 06/09/2024 9:09 AM EST Patient called looking for a sooner appointment as she had a concussion a few months ago and has has headaches everyday since. She states she has gone to the ER in [place] for the migraine cocktail a few times. I did tell her we do not have anything available is on the list for headache appointments. I referred her back to her pcp to help her with headaches until we open up the schedule. documented in this encounter Plan of Treatment Upcoming Encounters Date Type Department Care Team (Late st Contact Info) Description 11/18/2024 10:30 AM EDT Office Visit [facility] [address] [place] [address] Technical Information Specialist: Adrienne Gutiérrez MD [address] [place] [address] documented as of this encounter Visit Diagnoses Not on filedocumented in this encounter Care Teams Front Window Cashier Relationship Specialty Start Date End Date Bernie Aquino [address] [place] [address] PCP - General 08/22/21 documented as of this encounter
--- OUTSIDE RECORDS SUMMARY | 2024-07-02 09:43 | XMS_ITS | Clinical Summary ---
Author Organization [facility] Address [address] [place] [address] Phone Care Team Providers Care Energy Director Name Role Phone Unavailable Primary Care Provider Unavailabl e Allergies Active Allergy Reactions Criticality Noted Date Comments Adhesive Tape Rash Low 08/21/2011 Amoxicillin-Pot Clavulanate Other (see comments) 07/01/2021 makes sicker makes sicker Other reaction(s): Other (see comments) makes sicker makes sicker Azithromycin Other (see comments) 07/01/2021 Diarrhea Diarrhea Other reaction(s): Other (see comments) Diarrhea Diarrhea Benzethonium Chloride 11/08/2021 Fluticasone Other (see comments) 08/21/2011 Other reaction(s): Headache Meperidine Nausea And Vomiting,Nausea,Vom iting 08/21/2011 Other reaction(s): Vomiting Meperidine Hcl 01/06/2022 Methylphenidate 01/06/2022 Metoclopramide Other (see comments) 05/16/2018 Other reaction(s): double vision Other reaction(s): Dizziness, double vision Morphine Nausea And Vomiting,Nausea,Vom iting 08/21/2011 Medications acetaminophen (TYLENOL 8 HOUR) 650 MG 8 hr tablet Take 650 mg by mouth 8 Active albuterol (2.5 MG/3ML) 0.083% nebulizer solution 3 mL in the morning and 3 mL in the evening and 3 mL before bedtime. Active Colchicine 0.6 MG capsule Take 1 capsule by mouth Active cetirizine (ZyrTEC) 10 MG tablet Take 10 mg by mouth 1 (one) time each day 2 Active Cariprazine HCl 6 MG capsule Take 1 capsule by mouth 1 (one) time each day 2 Active Butalbital-APAP- Caffeine 50-300-40 MG capsule Take 1 capsule by mouth 12/31/202 0 Active benztropine (COGENTIN) 0.5 MG tablet Take 0.5 mg by mouth in the morning and 0.5 mg in the evening. 2 Active benzonatate (TESSALON) 200 MG capsule Take 200 mg by mouth in the morning and 200 mg at noon and 200 mg in the evening. 2 Active atorvastatin (LIPITOR) 10 MG tablet Take 20 mg by mouth 1 (one) time each day 2 Active Omalizumab 150 MG/ML solution prefilled syringe Inject 300 mg under the skin Active lamoTRIgine (LaMICtal) 200 MG tablet Take 400 mg by mouth 1 (one) time each day Active EPINEPHrine (ADRENALIN) 0.1 % nasal solution Administer 0.5 mL into each nostril if needed Active hydrOXYzine (ATARAX) 10 MG tablet Take 30 mg by mouth at bed time Active montelukast (SINGULAIR) 10 MG tablet Take 10 mg by mouth every night Active cyclobenzaprine (FLEXERIL) 10 MG tablet Take 10 mg by mouth 3 (three) times a day if needed for muscle spasms Active norethindrone (MICRONOR) 0.35 MG tablet Take 1 tablet by mouth 1 (one) time each day Active topiramate (TOPAMAX) 50 MG tablet Take 50 mg by mouth in the morning and 50 mg in the evening. 50 mg in the am and 150 in the pm. Active omeprazole (PriLOSEC) [address] capsule Take 40 mg by mouth in the morning and 40 mg in the evening. Do not crush or chew. . Active rizatriptan (MAXALT) 10 MG tablet Take 10 mg by mouth 1 (one) time if needed for migraine May repeat in 2 hours if unresolved. Do not exceed 30 mg in 24 hours. Active clonazePAM (KlonoPIN) 0.25 MG dispersible tablet Take 0.25 mg by mouth 2 (two) times a day if needed for seizures Active Melatonin 5 MG capsule Take 10 mg by mouth 1 (one) time each day Active ondansetron (ZOFRAN) 4 MG tablet Take 4 mg by mouth every 8 (eight) hours if needed for nausea or vomiting Active OXcarbazepine (TRILEPTAL) 300 MG tablet Take 450 mg by mouth in the morning and 450 mg in the evening. Active metFORMIN (GLUCOPHAGE) 500 MG tablet Take 1,000 mg by mouth in the morning and 1,000 mg in the evening. Take with meals. Active SITagliptin (JANUVIA) 50 MG tablet Take 100 mg by mouth 1 (one) time each day 2 Active famotidine (PEPCID) 20 MG tablet Take 20 mg by mouth in the morning and 20 mg in the evening. 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 Resolved Problems Problem Noted Date Diagnosed Date Resolved Date Carpal tunnel syndrome of left wrist 01/06/2022 01/06/2022 Numbness of hand 01/06/2022 01/06/2022 Allergic rhinitis 12/20/2021 01/06/2022 Hyperparathyroidism 12/20/2021 01/07/20 22 Type 2 diabetes mellitus 12/20/2021 Bipolar I disorder 05/11/2021 2 Common variable immunodeficiency 05/11/2021 01/06/2022 Tremor 01/30/2019 01/06/2022 Overview (01/06/2022): Medication related (lithium, neuroleptics) Menstrual migraine 06/28/2016 2 Memory impairment 03/25/2015 01/06/2022 Intractable migraine with au ra without status migrainosus 12/01/2013 01/06/2022 M??ni??re's disease 12/01/2013 01/07/20 22 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 01/06/2022 Immunizations Name Administration Dates Next Due Influenza Whole 01/05/2012,01/23/2011,02/16/2010 ,03/14/2009 Pneumococcal Conjugate 13-Valent 05/13/2014 Pneumococcal Polysaccharide 12/19/2009 Tdap 09/19/2017,12/08/2007,12/08/2007 Social History Tobacco Use Types Packs/Day Years [...] on file Sexual Orientation Not on file Last Filed Vital Signs Vital Sign Reading Time Taken Comments Blood Pressure 115/72 01/18/2023 1:01 PM EDT Pulse 84 01/18/2023 1:01 PM EDT Temperature - - Respiratory Rate - - Oxygen Saturation 97% 08/07/2022 3:00 PM EDT Inhaled Oxygen Concentration - - Weight 59.4 kg (131 lb) 01/18/2023 1:01 PM EDT Height - - Body Mass Index - - Plan of Treatment Health Maintenance Due Date Last Done Comments Hepatitis B Vaccine (1 of 3 - 19+ 3-dose series) 10/27/1994 Pneumococcal Vaccine: Pediat rics (0 to 5 Years) and At-Risk Patients (6 to 64 Years) (3 of 3 - PPSV23 or PCV20) 12/19/2014 05/13/2014, 12/19/2009 Diabetes: Hemoglobin A1C 12/05/2021 Diabetes: Pedal Pulse Checked 12/05/2021 Diabetes: Sensory Foot Exam 12/05/2021 Diabetes: Visual Foot Exam 12/05/2021 Diabetes: Ophthalmology Exam 07/01/2022 07/01/2021 Influenza Vaccine (#1) 2024 2, 01/23/2011, 02/16/2010, Additional history exists Insurance MEDICARE [facility] MEDICARE [facility]
--- OUTSIDE RECORDS SUMMARY | 2024-07-02 09:43 | XMS_ITS | Encounter Summary ---
Author Organization [employer] Address [address] [place] [address] Care Team Providers Care Ash Handler Name Role Phone Bernie Aquino HUMAN CAPITAL MANAGER Primary Care Provider Encounter Details Date Type Department Care Team (Late st Contact Info) Description 06/17/2024 Telephone Gastroenterology - [address] [place] [address] Merly Lyons MA Social History Tobacco Use Types Packs/Day [...] 05/20/2024 3:30 AM EST Annetta, As jenifer Mcdaniel RN * Do you have serious difficulty dressing or bathing? Answer Date of Assessment Author No 05/20/2024 3:30 AM EST Annetta, As jenifer Mcdaniel RN * Because of a physical, mental, or emotional condition, do you have serious difficulty doing errandsalone such as visiting the doctor? Answer Date of Assessment Author No 05/20/2024 3:30 AM EST Annetta, As jenifer Mcdaniel RN documented as of this encounter Mental Status * Because of a physical, mental, or emotional condition, do you have serious difficulty concentrating, remembering, or making decisions? (5 years old or older) Answer Entry Date Author No 05/20/2024 3:30 AM EST Annetta, As jenifer Mcdaniel RN documented in this encounter Progress Notes * Merly Lyons MA - 06/17/2024 8:28 AM EST SPOKE WITH PT PER ML KUB LOOKED FINE. * Merly Lyons MA - 06/17/2024 8:27 AM EST ----- Message from ROMY Serrano sent at 06/16/2024 6:28 PM EST ----- 09 pt Please let pt know that her kub looked fine documented in this encounter Plan of Treatment Upcoming Encounters Date Type Department Care Team (Late st Contact Info) Description 07/22/2024 9:00 AM EDT Appointment [facility] Center [address] [facility] 2nd [place] [phone] 09/10/2024 9:10 AM EDT Office Visit Gastroenterology - [address] [facility] [address] [place] [phone] Leif Burciaga PA [address] [facility] [address] [place] [phone] documented as of this encounter Visit Diagnoses Not on filedocumented in this encounter Care Teams Ash Handler Relationship Specialty Start Date End Date Bernie Aquino NP [address] [facility] [facility] [place] [address] PCP - General Family Medicine 10/05/21 documented as of this encounter
--- OUTSIDE RECORDS SUMMARY | 2024-07-02 09:43 | XMS_ITS | Encounter Summary ---
Author Organization [facility] Address [address] [place] [address] Care Team Providers Care Passport Support Manager Name Role Phone Bernie Aquino COMPARISON SHOPPER Primary Care Provider Encounter Details Date Type Department Care Team (Late st Contact Info) Description 06/20/2024 Telephone Gastroenterology - [address] [place] [address] [phone] Manda Seals MD [address] [phone] Social History Tobacco Use Types Packs/Day Years [...] 05/20/2024 3:30 AM LANCE Littlejohn, As jenifer Mcdaniel RN * Do you have serious difficulty dressing or bathing? Answer Date of Assessment Author No 05/20/2024 3:30 AM LANCE Littlejohn, As jenifer Mcdaniel RN * Because of a physical, mental, or emotional condition, do you have serious difficulty doing errandsalone such as visiting the doctor? Answer Date of Assessment Author No 05/20/2024 3:30 AM LANCE Littlejohn, As jenifer Mcdaniel RN documented as of this encounter Mental Status * Because of a physical, mental, or emotional condition, do you have serious difficulty concentrating, remembering, or making decisions? (5 years old or older) Answer Entry Date Author No 05/20/2024 3:30 AM LANCE Littlejohn, As jenifer Mcdaniel RN documented in this encounter Progress Notes * Alida [place] MA - 06/20/2024 4:28 PM EST Spoke to pt, let her know Rosie will call her Sunday to find her a sooner date for procedure. Maybe we can scope her Sunday or . * Jojo Sotelo - 06/20/2024 1:26 PM EST Pt returning message to move colonoscopy up to (?) next week, would like a call back documented in this encounter Plan of Treatment Upcoming Encounters Date Type Department Care Team (Late st Contact Info) Description 07/22/2024 9:00 AM EDT Appointment [facility] [address] [facility] 2nd [place] [address] 09/10/2024 9:10 AM EDT Office Visit Gastroenterology - 299 [facility] [address] [facility] [address] [place] [phone] Leif Burciaga PA [address] [address] documented as of this encounter Visit Diagnoses Not on filedocumented in this encounter Care Teams Passport Support Manager Relationship Specialty Start Date End Date Bernie Aquino NP [address] [facility] [place] [address] PCP - General Family Medicine 10/05/21 documented as of this encounter
--- OUTSIDE RECORDS SUMMARY | 2024-07-02 09:43 | XMS_ITS | Encounter Summary ---
Author Organization [email or web address] Address [address] [place] [address] Care Team Providers Care Tool Maintenance Technician Name Role Phone Bernie Aquino SOLAR INSTALLATION SUPERVISOR Primary Care Provider [phone] Encounter Details Date Type Department Care Team (Late st Contact Info) Description 06/19/2024 Telephone Gastroenterology - [address] [phone] Manda Seals MD [address] [phone] Social History Tobacco Use Types Packs/Day Years [...] documented in this encounter Progress Notes * Jojo Sotelo - 06/19/2024 8:39 AM EST PT CALLING TO LET OFFICE KNOW WE HAVE TO REACH OUT AND TELL CARDIOLOGY THAT SHE NEEDS TO BE SEEN SOONER/MORE URGENTLY SO SHE CAN GET HER COLONOSCOPY documented in this encounter Plan of Treatment Upcoming Encounters Date Type Department Care Team (Late st Contact Info) Description 07/22/2024 9:00 AM EDT Appointment [facility] [address] [facility] [address] [place] [phone] 09/10/2024 9:10 AM EDT Office Visit Gastroenterology - [address] [facility] [address] [place] [phone] Leif Burciaga PA [address] [facility] [address] [place] [address] documented as of this encounter Visit Diagnoses Not on filedocumented in this encounter Care Teams Tool Maintenance Technician Relationship Specialty Start Date End Date Bernie Aquino NP [address] [facility] [place] [address] PCP - General Family Medicine 10/05/21 documented as of this encounter
--- OUTSIDE RECORDS SUMMARY | 2024-07-02 09:43 | XMS_ITS | Encounter Summary ---
Author Organization [facility] Address [address] [place] [address] Phone Care Team Providers Care Casting Machine Adjuster Name Role Phone Unavailable Primary Care Provider Unavailabl e Encounter Details Date Type Department Care Team (Late st Contact Info) Description 07/05/2022 Telephone [facility] [address] [place] [address] Julee Stephens MA Social History Tobacco Use Types Packs/Day Years Used Date Smoking Tobacco: Never Smokeless Tobacco: Never Alcohol Use Standard Drinks/Week Comments No 0 (1 standard drink = 0.6 oz pur e alcohol) Comments Unknown Sex and Gender Information Value Date Recorded Sex Assigned at Not on file Legal Sex Female 5:08 PM EST Gender Identity Not on file Sexual Orientation Not on file documented as of this encounter Miscellaneous Notes * Telephone Encounter - Merly Duval - 07/20/2022 2:14 PM EST Results already in chart * Telephone Encounter - Neto Cunningham MD - 07/05/2022 12:33 PM EST Please get results * Telephone Encounter - Julee Stephens MA - 07/05/2022 8:36 AM EST Pt called she did the renal panel like asked however the lab dreew the orders for her primary Dr. Overton. She would like you to know the orders are [facility]. documented in this encounter Plan of Treatment Not on file documented as of this encounter Visit Diagnoses Not on filedocumented in this encounter
--- OUTSIDE RECORDS SUMMARY | 2024-07-02 09:43 | XMS_ITS | Continuity of Care Document ---
[facility] Organization [facility] Address [address] [place] [address]- Support Name Relationship Address Phone HEMANT LEE [...] Unknown U navailable Care Team Providers Care Children'S Counselor Name Role Phone Miles OTOOLE, Bernie Hardy Primary Care Physician [phone] Encounter [facility] Date(s): 05/21/24 - 06/20/24 [facility] Adult [address] [place] [address]- Encounter Type: Triage Allergies, Adverse Reactions, Alerts Substance Criticality Severity Reaction Reaction Severity Status azithromycin 1 increases sx's Active morphine vomiting Active Augmentin 2 increases sx Activ e Demerol HCl vomiting Active Cats sneezing Active NSAIDs Active Flonase rhinitis Active Reglan double vision Active Adhesive Bandage rash Act maddy 1Diarrhea [...] (oldterm) 8 03/14/09 Given 1Result Comment: [09/19/2017] [id number] 2Result Comment: [02/13/2018] [id number] 3Result Comment: [02/08/2017] [facility] [id number] 4Result Comment: [01/24/2013] ORDERRED BY [...] Maintenance, 07/09/23 2:12:00 PM EST, [facility], 163, cm, 06/06/23 7:29:00 EST, [...] Maintenance, 10/15/23 8:40:00 AM EDT, [facility], Partial fill upon patient request [...] EDT, Route to Pharmacy Electronically, [facility], 163, cm, 11/22/20 12:47:00 EDT, [...] 6:54:00 AM EDT, 04/15/24 6:54:00 AM EST, [facility], Partial fill upon patient [...] 2 Refills, Maintenance, 03/24/24 3:28:00 PM EST, [facility], 163, cm, 03/07/24 8:07:00 EDT, [...] 7:45:00 AM EST, Route to Pharmacy Electronically, [facility], 163, cm, 03/07/24 8:07:00 EDT, [...] 04/25/24 Status: Ordered Repeat number: 1 Pen [place], 31 G x 5 mm BD Ultra [...] Personnel Name: Marisa CHAIDEZ, Neto Osorio Position: [facility] Renal MD Member Role: Lifetime Consulting Physician Address: [address] [place] [address] [address] [place] [address]- [place] [employer]: Name: Lore Clinton RN Position: [facility] AMB Nurse Member Role: Primary Care Nurse Name: Chris Rosenbaum MD Position: [facility] HEAD INSPECTOR MD Member Role: Lifetime HEAD INSPECTOR Physician Address: [address] [place], [place] [address] [place] [address]- [place] [employer]: Name: Bernie Aquino NP Position: [facility] PCO Associate Professional Member Role: PCP Address: [address] [place] [address]- [place] [employer]: Name: Gregg Hardy MD Position: [facility] Pulmonary MD Member Role: Lifetime Consulting Physician Address: [address] [place] [address]- [place] [employer]: Care Team Related Persons Name: ONDINA SINGLETARY Name: BLAIRE JACOB Insurance Providers Guarantor name: HEMANT LEE Health Plan Information #: 1 Payer: OUT OF STATE PLANS Member Number: NA Policy Number: NA Group Number: NA Health Plan Information #: 2 Payer: MEDICARE PART B OUTPT Member Number: NA Policy Number: NA Group Number: NA Health Plan Information #: 3 Payer: [facility] Member Number: NA Policy Number: NA Group Number: NA
--- OUTSIDE RECORDS SUMMARY | 2024-07-02 09:43 | XMS_ITS | Encounter Summary ---
Author Organization [employer] Address [address] [place] [address] Care Team Providers Care Aboriginal Liaison Officer Name Role Phone Bernie Aquino PROCUREMENT BUYER Primary Care Provider [phone] Encounter Details Date Type Department Care Team (Late st Contact Info) Description 06/18/2024 Telephone Gastroenterology - [address] [facility] [address] [place] [phone] Leif Burciaga PA [address] [place] [phone] Social History Tobacco Use Types Packs/Day Years [...] Progress Notes * Merly Lyons MA - 06/19/2024 11:20 AM EST SPOKE WITH PT COLON 08/04/24 AT 730AM AT [facility] [place] PER DR SEALS WILL MAIL PREP INFO TO PT. RX SENT TO PHARM PT STATES NEEDS YOU TO CALL CARDIOLOGY TO MOVE HER APPT THEY WONT DO IT FOR HER. * ROMY Ocasio - 06/18/2024 4:33 PM EST Spoke with pt. Elevated fecal calprotectin. ?IBD. Need to rule out especially with question of PSC (waiting on second opinion). Pt has ECHO 07/04 and f/u with cardiology in August (Dr. Reyna). I will reach out to cardiology for cardiac clearance soon after ECHO. Plan: colonoscopy - for anemia and elevated fecal calprotectin [facility] 7 days prior Skip other diabetic meds pm before and am of procedure Colonoscopy reviewed with patient. Risks discussed including bleeding perforation and missed lesions. There is always a chance surgery or transfusion could be required. Prep discussed with patient. Risks of anesthesia reviewed. Patient advised will need a ride home, not to have liquids for at least3 hours prior to the procedure. * ROMY Ocasio - 06/18/2024 4:33 PM EST ----- Message from Luis Seals MD sent at 06/18/2024 2:42 PM EST ----- Probably needs colonoscopy sooner- ?cardiology clearance ----- Message ----- From: Lab, Background User Sent: 06/18/2024 12:51 PM EST To: Manda Seals MD documented in this encounter Plan of Treatment Upcoming Encounters Date Type Department Care Team (Late st Contact Info) Description 07/22/2024 9:00 AM EDT Appointment [facility] [address] [facility] [address] 2nd [place] [address] 09/10/2024 9:10 AM EDT Office Visit Gastroenterology - [address] [facility] [address] [place] [phone] Leif Burciaga PA [address] [place] [address] documented as of this encounter Visit Diagnoses Not on filedocumented in this encounter Care Teams Aboriginal Liaison Officer Relationship Specialty Start Date End Date Bernie Aquino NP [address] [facility] [place] [address] PCP - General Family Medicine 10/05/21 documented as of this encounter
--- OUTSIDE RECORDS SUMMARY | 2024-07-02 09:43 | XMS_ITS | Encounter Summary ---
Author Organization [facility] Address [address] [place] [address] Care Team Providers Care Adjunct Phlebotomy Instructor Name Role Phone Bernie Aquino Primary Care Provider [phone] Reason for Visit * Reason Onset Date Comments Med Refill 06/11/2024 Encounter Details Date Type Department Care Team (Late st Contact Info) Description 06/11/2024 Refill [facility] [address] [place] [phone] Doubling Machine Operator: Gwen [place] MA Social History Tobacco Use Types Packs/Day [...] Description 11/18/2024 10:30 AM EDT Office Visit [facility] [address] [place] [phone] Doubling Machine Operator: Adrienne Gutiérrez MD [address] [place] [address] documented as of this encounter Visit Diagnoses Not on filedocumented in this encounter Care Teams Adjunct Phlebotomy Instructor Relationship Specialty Start Date End Date Bernie Aquino [address] [place] [phone] PCP - General 08/22/21 documented as of this encounter
--- OUTSIDE RECORDS SUMMARY | 2024-07-02 09:43 | XMS_ITS | Data Portability ---
Author Organization 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 Hugo who was available but who did not see the patient. Chief Complaint: Neck pain Date of injury: 05/09/2024 HPI: The patient is a 48-year-old female presenting today for evaluation of neck pain. She sustained the injury a few weeks ago where she fell and hit her head against the grand piano. She was also diagnosed with a concussion at the time. She has been feeling symptoms in her neck since then. Her neck has seemed to continue to stiffen up over time. She has difficulty with range of motion. She does not have pain throughout the entire day. It does seem to bother her more at night. No numbness or tingling radiating down into the arm. She does not feel any weakness about the arm. she has more pain with range of motion than at rest. Past family, medical, social history and review of systems has been reviewed, updated and signed by me and is located in the patient's chart. Examination: The patient is well appearing and in no apparent distress. Alert and oriented x3. Gait is symmetric. Cervical Spine: No warmth, effusion, erythema, ecchymosis, range of motion is slightly limited in flexion, extension, lateral bending, and rotation. No edema, 5/5 strength upper extremities, moderately tender paraspinal muscles, nontender spinous processes. Neurovascularly intact, +2 reflexes, no radicular symptoms. X-rays ordered, obtained and reviewed at [facility]: AP and lateral of the cervical spine reveal no acute fracture or dislocation. There is straightening of the normal lordotic curve. No significant listhesis. Loss of vertebral height. There is mild degenerative disc disease. Impression: Cervical neck spasm predominantly right-sided Plan: I explained the nature of the diagnosis with the patient and its treatment options both conservative and surgical. At this point in time I discussed with patient we will forward with conservative treatment. We discussed physical therapy and oral anti-inflammatorie s. The patient has chronic kidney disease and therefore may not move forward with NSAIDs. She also has diabetes and it tends to be very labile with oral steroids however she is able to manage well with sliding scale insulin. We did decide on this treatment today to help with inflammation. I also provided with her home exercise program. She will continue this for several weeks and if still having difficulty or has any concerning signs will contact the office again. The patient understands and agrees with the plan. They know to call if they have any further questions or concerns regarding their symptoms, or to follow up sooner if needed. [email or web address] Not available 05/26/2024 12:44:58 Plan of Treatment Reminders Order Date Submit Date Provider Last Modified By Organization Details Last Modified Time Details Appointments None recorded. Lab None recorded. Referral physical therapist referral - VMO Strengthe aron, Hip Abductor, Glute Med Strengthe aron, Quad & Hamstring Stretchin g, Patella Mobilizat Adalberto rincon Taping at your discretio n. 2023 024 [facility], [address] [facility] [address], [place], [address], 4 11:52:24 Procedures None recorded. Surgeries None recorded. Imaging XR, cervical spine, 2 or 3 view - new eval cervical spine pain room 4 2024 025 [email or web address], [address], [facility] [address], [address], 5 15:09:16 XR, knee, 4 or more view - rm 1 LT knee 2023 024 [email or web address], [address], [place], [address], 11:52:24 Medication Orders prednison e 10 mg tablet 2024 025 [id number], [address] [place], [address], 11:54:41 Patient TargetsNo targets recorded. Patient Instructions Encounter Date Encounter Id Patient Instructions Last Modified By Organization Details Last Modified Time 05/26/[id number] neck: exercises [email or web address] Not available 05/26/2024 13:15:56 neck spasm: exercises [email or web address] Not available 05/26/2024 13:15:56 Reason for Referral Physical Therapist Referral for Chondromalacia of left patella VMO Strengthening, Hip Abductor, Glute Med Strengthening, Quad & Hamstring Stretching, Patella Mobilization, Glover Taping at your discretion. Referring Physician: Armando Ortiz, Orthopedic Surgery, [id number] Encounter Date: 11/19/2023 Results Created Date Observation Date Name Description Value Unit Range Abnormal Flag Note LastModifiedBy Organization Detail LastModifiedTime 11/19/1911/19/2023 XR, knee, 4 or more view [email or web address] ?Encry pted=s hAaTro YD8dLq bEUv6g %2BXZw aYqtaq 0bqfl% 2Fg9IQ a4ajBk vP9nXo QUaueC m3YtLR FvZlgJ JJ8mAn HZtai3 3q5543 AC0Kpa XuEVqb eUC8mr 84%3D INTERFACE [facility] [address], [place], [address], 11/19/2023 10:31:57 11/19/19 24 11/19/2023 XR, knee, 4 or more view [email or web address] ?Encry pted=s hAaTro YD8dLq bEUv6g %2BXZw aYqtaq 0bqfl% 2Fg9IQ a4ajBk vP9nXo QUaueC m3YtLR FvZlgJ JJ8mAn HZtai3 8q3956 AC0Kpa XuEVqb eUC8mr 84%3D INTERFACE [facility] [address], [place], [address], 11/19/2023 10:31:59 01/12/20 24 09/13/2020 imagi ng/di agnos tic resul t No observ ation record ed. [email or web address] Not Available 12/14 08:10:00 01/12/20 24 01/07/2021 imagi ng/di agnos tic resul t No observ ation record ed. [email or web address] Not Available 12/14 08:10:08 01/12/20 24 08/29/2018 imagi ng/di agnos tic resul t No observ ation record ed. [email or web address] Not Available 12/14 08:10:18 01/12/20 24 01/01/2023 imagi ng/di agnos tic resul t No observ ation record ed. [email or web address] Not Available 12/14 08:10:37 01/12/20 24 01/01/2023 imagi ng/di agnos tic resul t No observ ation record ed. [email or web address] Not Available 12/14 08:10:38 05/26/19 25 05/26/2024 XR, cervi kamron spine , 2 or 3 view [email or web address] ?Encry pted=s hAaTro YD8dLq bEUv6g %2BXZw aYqtaq 0bqfl% 2Fg9IQ a4ajBk vP9nXo QUaueC m3YtLR FvZlgJ JJ8mAn HZtai3 1b4987 AC0Kqb 36GVae gKiQtr MwF INTERFACE [facility] [address], [place], [address], 05/26/2024 10:48:09 05/26/19 25 05/26/2024 XR, cervi kamron spine , 2 or 3 view [email or web address] ?Encry pted=s Stephanie YD8dLq bEUv6g %2BXZw aYqtaq 0bqfl% 2Fg9IQ a4ajBk vP9nXo QUaueC m3YtLR FvZlgJ JJ8mAn HZtai3 5c1612 AC0Kqb 36GVae gKiQtr MwF INTERFACE [facility] [address], [place], [address], 05/26/2024 10:48:11 Result Notes None recorded. Problems Name Problem SNOMED Code Status Onset Date Resolution Date Notes Provider Name and Address Organization Details Recorded Time Pain of left knee joint 985470851471 107 Active 2023 TONIA murphy [place] - [facility] 4 10:13:15 Neck pain 25349299 Active 2024 SHILPA Mcdaniel'AG murphy [place] - [facility] 5 10:36:29 Pain in right hip joint 550068339149 102 Active 2016 Problem Code: M25.551; Problem Code Type: ICD-10; Status: 'A'; Not Available [facility] 4 11:42:22 Pain of left hip joint 222441660085 100 Active 2016 Problem Code: M25.552; Problem Code Type: ICD-10; Status: 'A'; Not Available [facility] 4 11:42:22 Chondroma lacia of left patella 255836728506 106 Active 2016 Problem Code: M22.42; Problem Code Type: ICD-10; Status: 'A'; Not Available [facility] 4 11:42:22 Problem Notes None recorded. Procedures Surgical History None recorded. Imaging Results Imaging Date Name Status LastModified by [facility]iz [facility] Details LastModified Time 11/19/2023 XR, knee, 4 or more view completed INTERFACE [facility] [address], [place], [address], 11/19/2023 10:31:57 11/19/2023 XR, knee, 4 or more view completed INTERFACE [facility] [address], [place], [address], 11/19/2023 10:31:59 09/13/2020 imaging/diagn ostic result completed Information not available 01/12/2024 08:10:00 01/07/2021 imaging/diagn ostic result completed Information not available 01/12/2024 08:10:08 08/29/2018 imaging/diagn ostic result completed Information not available 01/12/2024 08:10:18 01/01/2023 imaging/diagn ostic result completed Information not available 01/12/2024 08:10:37 01/01/2023 imaging/diagn ostic result completed Information not available 01/12/2024 08:10:38 05/26/2024 XR, cervical spine, 2 or 3 view completed INTERFACE [facility] [address], [place], [address], 05/26/2024 10:48:09 05/26/2024 XR, cervical spine, 2 or 3 view completed INTER[facility] [address], [place], [address], 05/26/2024 10:48:11 Procedure Notes None recorded. Medical Equipment None Reported. Allergies Allergen ID Allergen Name Allergen Category Reaction Reaction Severity Criticality Documentation Date Start Date Code Code System Note Provider Name and Address Organization Details Recorded Time 56865 Reglan medicatio n Not available Not available Not available 07/16/20232022 9230 RxNorm Not Available [facility] 14:15:03 76484 Medicinal product acting as adhesive (product) environme nt,medica tion Not available Not available Not available 07/16/20232022 28467 2009 SNOMED Not Available [facility] 14:15:03 13767 Non-stero idal anti-infl ammatory agent (product) medicatio n Not available Not available Not available 07/16/20232022 53319 005 SNOMED Not Available [facility] 4 14:15:03 Medications Name Sig Start Date Stop Date Status Note LastModified by Organization Details LastModified Time cyclobenzap rine 10 mg tablet TAKE ONE TABLET BY MOUTH DAILY AT BEDTIME NEEDED FOR MUSCLE SPASMS 05/26 completed Not Available Not Available Not Available amoxicillin 500 mg capsule TAKE ONE CAPSULE BY MOUTH THREE TIMES A DAY FOR 5 DAYS 05/26 completed Not Available Not Available Not Available atorvastati n 40 mg tablet TAKE ONE TABLET BY MOUTH EVERY DAY active Not Available Not Available No t Available metformin 500 mg tablet TAKE TWO TABLETS BY MOUTH TWICE A DAY active Not Available Not Available No t Available oxcarbazepi ne 150 mg tablet TAKE TWO TABLETS BY MOUTH EVERY MORNING AND TAKE ONE TABLET BY MOUTH DAILY AT BEDTIME 05/26 completed Not Available Not Available Not Available prednisone 10 mg tablet TAKE 6 TABLETS BY MOUTH DAY 1, 5 TABLETS DAY 2, 4 TABLETS DAY 3, 3 TABLETS DAY 4, 2 TABLETS DAY 5, AND 1 TABLET DAY 6 active Not Available Not Available No t Available gabapentin 600 mg tablet TAKE ONE TABLET BY MOUTH THREE TIMES A DAY active Not Available Not Available No t Available doxycycline hyclate 100 mg capsule TAKE 1 TABLET BY MOUTH TWICE A DAY FOR 14 DAYS 05/26 completed Not Available Not Available Not Available atorvastati n 20 mg tablet TAKE ONE TABLET BY MOUTH EVERY DAY 05/26 completed Not Available Not Available Not Available lamotrigine 200 mg tablet TAKE ONE TABLET BY MOUTH EVERY DAY 05/26 completed Not Available Not Available Not Available venlafaxine 75 mg tablet TAKE ONE TABLET BY MOUTH EVERY EVENING active Not Available Not Available No t Available loperamide 2 mg capsule TAKE TWO CAPSULES BY MOUTH AFTER EACH EPISODE OF LOOSE STOOL. NO MORE THAN 8 CAPSULES 16MG) IN 24 HOURS active Not Available Not Available No t Available cetirizine 10 mg tablet TAKE ONE TABLET BY MOUTH TWO TIMES A DAY active Not Available Not Available No t Available fluconazole 150 mg tablet TAKE ONE TABLET BY MOUTH EVERY DAY FOR 2 DAYS 05/26 completed Not Available Not Available Not Available benzonatate 200 mg capsule TAKE ONE CAPSULE BY MOUTH THREE TIMES A DAY 05/26 completed Not Available Not Available Not Available ondansetron HCl 8 mg tablet TAKE ONE TABLET BY MOUTH TWICE A DAY FOR 7 DAYS active Not Available Not Available No t Available sucralfate 1 gram tablet TAKE ONE TABLET BY MOUTH TWICE A DAY 05/26 completed Not Available Not Available Not Available venlafaxine 25 mg tablet TAKE TWO TABLETS BY MOUTH EVERY MORNING 05/26 completed Not Available Not Available Not Available ondansetron HCl 4 mg tablet TAKE ONE TABLET BY MOUTH EVERY 6 TO 8 HOURS NEEDED 05/26 completed Not Available Not Available Not Available prednisone 20 mg tablet TAKE ONE TABLET BY MOUTH EVERY DAY FOR FMF ATTACKS active Not Available Not Available No t Available rizatriptan 10 mg tablet TAKE ONE TABLET BY MOUTH NEEDED FOR MIGRAINE MAY REPEAT IN 2 HOURS IF UNRESOLVE D, DO NOT EXCEED 30MG IN 24 HOURS active Not Available Not Available No t Available lidocaine 4 % topical cream 05/26 completed Not Available Not Available Not Available lithium carbonate ER 300 mg tablet,exte nded release TAKE ONE TABLET BY MOUTH TWICE A DAY 05/26 completed Not Available Not Available Not Available lithium carbonate 150 mg capsule TAKE ONE CAPSULE BY MOUTH EVERY DAY 05/26 completed Not Available Not Available Not Available hydroxyzine HCl 50 mg tablet TAKE ONE TABLET BY MOUTH EVERY DAY NEEDED 2024 active Not Available Not Available Not Avai lable oxcarbazepi ne 300 mg tablet TAKE ONE TABLET BY MOUTH TWICE A DAY. TOTAL DOSE 900MGS TWICE DAILY active Not Available Not Available No t Available ciprofloxac in 500 mg tablet TAKE ONE TABLET BY MOUTH TWICE A DAY FOR 10 DAYS 05/26 completed Not Available Not Available Not Available sulfamethox azole 800 mg-trimetho prim 160 mg tablet TAKE ONE TABLET BY MOUTH TWICE A DAY FOR 7 DAYS 05/26 completed Not Available Not Available Not Available omeprazole 40 mg capsule,del ayed release TAKE ONE CAPSULE BY MOUTH TWICE A DAY active Not Available Not Available No t Available tramadol 50 mg tablet TAKE ONE TABLET BY MOUTH EVERY 4 TO [address]; [address] NOT DRIVE WHILE TAKING THIS MEDICATIO N. TO BE STARTED AFTER SURGERY active Not Available Not Available No t Available acetaminoph en 500 mg tablet TAKE TWO TABLETS BY MOUTH EVERY 8 HOURS NEEDED FOR PAIN 05/26 completed Not Available Not Available Not Available butalbital- acetaminoph en-caffeine 50 mg-325 mg-40 mg tablet TAKE ONE TABLET BY MOUTH EVERY 6 HOURS IF NEEDED FOR HEADACHE active Not Available Not Available No t Available lithium carbonate ER 450 mg tablet,exte nded release TAKE 1 TABLET BY MOUTH ONCE A DAY 05/26 completed Not Available Not Available Not Available lamotrigine 25 mg tablet TAKE TWO TABLETS BY MOUTH EVERY MORNING active Not Available Not Available No t Available amiloride 5 mg tablet TAKE TWO TABLETS BY MOUTH EVERY DAY active Not Available Not Available No t Available hydromorpho ne 2 mg tablet TAKE ONE TABLET BY MOUTH EVERY 8 HOURS NEEDED FOR KIDNEY STONE PAIN 05/26 completed Not Available Not Available Not Available magnesium oxide 400 mg (241.3 mg magnesium) tablet TAKE ONE TABLET BY MOUTH EVERY DAY active Not Available Not Available No t Available meclizine 25 mg tablet TAKE ONE TABLET BY MOUTH THREE TIMES A DAY NEEDED FOR DIZZINESS 05/26 completed Not Available Not Available Not Available doxycycline monohydrate 100 mg capsule TAKE ONE CAPSULE BY MOUTH TWICE A DAY FOR 14 DAYS. 05/26 completed Not Available Not Available Not Available levothyroxi ne 50 mcg tablet TAKE ONE TABLET BY MOUTH EVERY DAY SUNDAY TO SUNDAY AND 1.5 TABLETS ON SUNDAY active Not Available Not Available No t Available nortriptyli ne 10 mg capsule TAKE ONE CAPSULE BY MOUTH DAILY AT BEDTIME 05/26 completed Not Available Not Available Not Available esomeprazol e magnesium 40 mg capsule,del ayed release TAKE ONE CAPSULE BY MOUTH EVERY DAY 05/26 completed Not Available Not Available Not Available prednisone 50 mg tablet TAKE ONE TABLET BY MOUTH EVERY MORNING FOR 5 DAYS. 05/26 completed Not Available Not Available Not Available Phospha Neutral 250 mg tablet TAKE 1 TABLET BY MOUTH TWICE A DAY 05/26 completed Not Available Not Available Not Available venlafaxine 50 mg tablet TAKE ONE AND ONE-HALF TABLETS BY MOUTH DAILY AT BEDTIME 05/26 completed Not Available Not Available Not Available docusate sodium 100 mg capsule TAKE ONE CAPSULE BY MOUTH TWO TIMES A DAY NEEDED FOR CONSTIPAT ION active Not Available Not Available No t Available gabapentin 300 mg capsule TAKE ONE CAPSULE BY MOUTH TWICE A DAY active Not Available Not Available No t Available budesonide 0.5 mg/2 mL suspension for nebulizatio n MIX 1 VIAL IN 8 OUNCES OF DISTILLED WATER WITH BUFFERED SALINE PACKET. IRRIGATE NOSE TWICE DAILY . USE HALF A BOTTLE ON EACH SIDE 05/26 completed Not Available Not Available Not Available oxcarbazepi ne 600 mg tablet TAKE ONE TABLET BY MOUTH TWICE A DAY active Not Available Not Available No t Available montelukast 10 mg tablet TAKE ONE TABLET BY MOUTH DAILY AT NIGHT active Not Available Not Available No t Available hydroxyzine HCl 25 mg tablet TAKE ONE TO TWO TABLETS BY MOUTH UP TO THREE TIMES A DAY NEEDED FOR FOR ANXIETY OR INSOMNIA active Not Available Not Available No t Available azelastine 137 mcg (0.1 %) nasal spray US 1 SPRAY INTRANASA LLY TWO TIMES A DAY 05/26 completed Not Available Not Available Not Available epinephrine 0.3 mg/0.3 mL injection, auto-inject or INJECT ONE PEN DIRECTED FOR ANAPHYLAX IS AND CALL 911 active Not Available Not Available No t Available levofloxaci n 500 mg tablet TAKE ONE TABLET BY MOUTH EVERY DAY FOR 7 DAYS 05/26 completed Not Available Not Available Not Available levofloxaci n 750 mg tablet TAKE 1 TABLET BY MOUTH ONCE DAILY . FIRST DOSE AT 2 O'CLOCK IN THE AFTERNOON ON 05/23/2305/26 completed Not Available Not Available Not Available methylpredn isolone 4 mg tablets in a dose pack TAKE SIX TABLETS FOR 1 DAY, THEN FIVE TABLETS FOR 1 DAY, THEN FOUR TABLETS FOR 1 DAY,THEN THREE TABLETS FOR 1 DAY, THEN TWO TABLETS FOR 1 DA 05/26 completed Not Available Not Available Not Available colchicine 0.6 mg tablet TAKE THREE TABLETS BY MOUTH EVERY DAY active Not Available Not Available No t Available hydroxyzine HCl 10 mg tablet TAKE FOUR TABLETS BY MOUTH DAILY AT BEDTIME active Not Available Not Available No t Available ondansetron 4 mg disintegrat ing tablet PLACE 1 TABLET BY MOUTH EVERY 6 HOURS NEEDED FOR NAUSEA AND VOMITING active Not Available Not Available No t Available lithium carbonate 300 mg tablet TAKE ONE TABLET BY MOUTH TWICE A DAY 05/26 completed Not Available Not Available Not Available doxycycline hyclate 100 mg tablet TAKE ONE CAPSULE BY MOUTH TWICE A DAY FOR 10 DAYS 05/26 completed Not Available Not Available Not Available Microlet Lancet active Not Available Not Available Not Available oxycodone 5 mg tablet TAKE 1 TABLET BY MOUTH EVERY 6 HOURS NEEDED FOR PAIN SCALE 7-10 active Not Available Not Available No t Available enoxaparin 40 mg/0.4 mL subcutaneou s syringe INJECT 0.4ML 40MG) UNDER THE SKIN ONCE DAILY STARTING THE DAY AFTER SURGERY active Not Available Not Available No t Available insulin lispro (U-100) 100 unit/mL subcutaneou s pen INJECT 15 MINUTES BEFORE MEAL 3 TIMES A DAY; IF GLUCOSE LEVELS 200-250: TAKE 2 UNITS; 251-300: TAKE 4 UNITS; 301-350: TAKE 6 UNITS; 351-400: active Not Available Not Available No t Available topiramate 50 mg tablet TAKE ONE TABLET BY MOUTH EVERY MORNING AND TAKE THREE TABLETS BY MOUTH DAILY AT BEDTIME active Not Available Not Available No t Available nitrofurant oin monohydrate /macrocryst als 100 mg capsule TAKE ONE CAPSULE BY MOUTH TWICE A DAY FOR UTI 05/26 completed Not Available Not Available Not Available BD Ultra-Fine Mini Pen Needle 31 gauge x 3/16 USE WITH INSULIN LISPRO PENS THREE TIMES A DAY 05/26 completed Not Available Not Available Not Available Gammagard Liquid 10 % injection solution Take by injection route. active Not Available Not Available No t Available doxycycline hyclate 100 mg tablet,ese yed release TAKE ONE TABLET BY MOUTH TWICE A DAY FOR 5 DAYS 05/26 completed Not Available Not Available Not Available lithium carbonate [place] Carbonate 150MG Capsule 09/06 completed Statu s: 'Disc ontin ued'; Not Available Not Available Not Available oxcarbazepi ne OXcarbaze pine 600MG Tablet 05/26 completed Statu s: 'Curr ent'; Not Available Not Available Not Available aripiprazol e ARIPipraz ole 10MG Tablet 05/26 completed Statu s: 'Curr ent'; Not Available Not Available Not Available Januvia 100 mg tablet TAKE ONE TABLET BY MOUTH EVERY DAY active Not Available Not Available No t Available ferrous gluconate 324 mg (38 mg iron) tablet TAKE ONE TABLET BY MOUTH ONCE DAILY active Not Available Not Available No t Available oxycodone HCl-oxycodo ne-ASA DO NOT DRIVE WHILE TAKING MEDICATIO N 05/26 completed Statu s: 'Curr ent'; Not Available Not Available Not Available lamotrigine ER 200 mg tablet,exte nded release 24 hr TAKE ONE TABLET BY MOUTH DAILY AT BEDTIME 05/26 completed Not Available Not Available Not Available GaviLyte-G 236 gram-22.74 gram-6.74 gram-5.86 gram oral solution TAKE 8OZ DIRECTED BY DOCTORS OFFICE 05/26 completed Not Available Not Available Not Available butalbital- acetaminoph en-caffeine 50 mg-300 mg-40 mg capsule TAKE 1 CAPSULE BY MOUTH ONCE DAILY NEEDED FOR SEVERE MIGRAINE. active Not Available Not Available No t Available norethindro ne Norethind ashley 0.35MG Tablet 05/26 completed Statu s: 'Curr ent'; Not Available Not Available Not Available melatonin 10 mg tablet TAKE ONE TABLET BY MOUTH EVERY DAY WITH DINNER active Not Available Not Available No t Available Combivent Respimat 20 mcg-100 mcg/actuati on solution for inhalation INHALE 1 PUFF UP TO FOUR TIMES A DAY IF NEEDED active Not Available Not Available No t Available Contour Next Test Strips CHECK BLOOD GLUCOSE THREE TIMES A DAY AND NEEDED 05/26 completed Not Available Not Available Not Available potassium chloride ER 20 mEq tablet,exte nded release TAKE ONE TABLET BY MOUTH EVERY DAY 05/26 completed Not Available Not Available Not Available Jardiance 10 mg tablet TAKE ONE TABLET BY MOUTH EVERY MORNING active Not Available Not Available No t Available Trulicity 1.5 mg/0.5 mL subcutaneou s pen injector INJECT 0.5ML SUBCUTANE OUSLY EVERY WEEK, ROTATE INJECTION SITES active Not Available Not Available No t Available Trulicity 0.75 mg/0.5 mL subcutaneou s pen injector INJECT 0.5ML UNDER THE SKIN EVERY WEEK. ROTATE INJECTION SITES. active Not Available Not Available No t Available Vraylar 4.5 mg capsule TAKE ONE CAPSULE BY MOUTH EVERY MORNING active Not Available Not Available No t Available Vraylar 3 mg capsule TAKE ONE CAPSULE BY MOUTH ONCE DAILY IN THE MORNING 05/26 completed Not Available Not Available Not Available Incassia 0.35 mg tablet Take 1 tablet every day by oral route. active Not Available Not Available No t Available Emgality Pen 120 mg/mL subcutaneou s pen injector INJECT 1ML UNDER THE SKIN EVERY 28 DAYS active Not Available Not Available No t Available Trelegy Ellipta 200 mcg-62.5 mcg-25 mcg powder for inhalation INHALE 1 PUFF ONCE DAILY active Not Available Not Available No t Available Paxlovid 300 mg (150 mg x 2)-100 mg tablets in a dose pack TAKE 3 TABLETS BY MOUTH TWICE DAILY FOR 5 DAYS. 05/26 completed Not Available Not Available Not Available Xolair 300 mg/2 mL subcutaneou s syringe active Not Available Not Available No t Available Vitals Date Recorded Body height Body mass index (BMI) Body weight Provider Name and Address Organization Details Last Updated DateTime 11/19/2023 162.56 cm 29.2 kg/m2 54932.7 g TONIA DUNN [facility] 11/19/2023 10:13:00 Date Recorded Body height Body mass index (BMI) Body weight Provider Name and Address Organization Details Last Updated DateTime 05/26/2024 162.56 cm 29.2 kg/m2 24302.7 g SHILPA BRUMFIELD [facility] 05/26/2024 10:30:12 Social History Question Answer Notes LastModified by Organizat ion Details LastModified Time Tobacco Smoking Status Never Smoker [facility] [facility] 05/26/2024 10:35:08 What Is Your Level Of Alcohol Consumption? None Information not available 05/26/2024 Which Illicit Or Recreational Drugs Have You Used? Marijuana Information not available 05/26/2024 What Is Your Relationship Status? Information not available 05/26/2024 Do You Use Any Illicit Or Recreational Drugs? Yes Information not available 05/26/2024 Do You Or Have You Ever Used Any Other Forms Of Tobacco Or Nicotine? No Information not available 05/26/2024 Sex: Unknown Functional Status None recorded. Mental Status None recorded. Family History Nothing Reported. Medical History Condition Response Allergies/Hayfever N Coronary Artery Disease N Breathing or lung disorders Y Anxiety/Depression Y Emphysema N Nerve Disorders N Thyroid Problems Y COPD N Pacemaker N Kidney/Bladder Problems Y Anemia Y Vascular Disease N Heart Trouble N Heart Attack (PA) N Gastrointestinal Disease N Cholesterol Y Diabetes Y Autoimmune disease N Inflammatory Joint disease N Bleeding Disorder N Orthotics N Seizures/Epilepsy N Arthritis Y Blood Clot N AIDS/HIV N Congestive Heart Failure (CHF) N Acid Reflux (GERD) N Cancer Y Stroke N Asthma N Circulation Problems N Peripheral Vascular Disease N Sleep Apnea N Hepatitis N Heart Disease N Rheumatoid Arthritis N Pulmonary Embolism N Arrhythmia N Headaches Y Fibromyalgia N Hypertension N Osteoporosis N Gynecological HistoryNo gynecological history recorded. Obstetrics History GPAL:G 0 P 0 0 0 0 Past Encounters Encounter ID Performer Location Encounter Start Date Encounter Closed Date Diagnosis/Indication Diagnosis SNOMED-CT Code Diagnosis ICD10 Code Diagnosis Note [id number] [facility] [address] floor [address] [place] [address] 11/19/2023 09:56:07 12/05/2023 11:52:24 Pain of left knee joint 6704284312 13329 M25.562 Chondromal acia of left patella 4799685957 [id number] PA-C [facility] [place] [address] [place] [address] 05/26/2024 09:07:01 06/05/2024 15:09:16 Neck pain 04593613 M54.2 Spasm of c ervical paraspinous muscle 801423923 M62.838 Health Concerns Section Related Observation LastModified by Organization Detai ls LastModified Time None Recorded Concern Status LastModified by Organization Details LastModified Time None Recorded Advance Directives Directive None Recorded Payers Encounter Date Sequence Insurance Name Policy Number Policy Brambila Covered Member ID Brambila Member ID Guarantor Name 11/19/2023 1 BCBS-ID: [facility] [id number] Pineda Garcia [id number] Meredith Garcia 11/19/2023 2 MEDICARE B-[place]: [facility] Meredith Garcia [id number] Meredith Garcia 05/26/2024 1 BCBS-ID: [facility] [id number] Pineda Garcia [id number] Meredith Garcia 05/26/2024 2 MEDICARE B-[place]: [facility] Meredith Garcia [id number] Meredith Garcia Notes Date Note Type Note Provider Name and Address Organization Details Recorded Time 11/19/2023 text/html I am seeing the patient today under the supervision of Dr. Engel who was available but who did not see the patient presents to our walk-in urgent care facility. HPI: Meredith is a very pleasant 48-year-old female who presents to the office today for evaluation injury suffered to her left knee approximately 3 days ago. At that time she was rushing up her stairs at home and missed a step causing her to fall landing on the anterior aspect of the left knee. Since then she has had intermittent pain and discomfort with day-to-day activity she denies any swelling symptoms are exacerbated when going downhill and down stairs. She does have history of previous knee arthroscopy 10+ years ago has had no long-term sequelae. Past family, medical, social history and review of systems has been reviewed, updated and signed by me and is located in the patient? ? ?s chart. PHYSICAL EXAMINATION: The patient is well appearing and in no apparent distress. Alert and oriented x3. Gait is symmetric. Left knee ROM is full, patella crepitance noted, stability intact both anterior, posterior, and varus/valgus stress at both 0 and 30 degrees of flexion. No medial or lateral joint line tenderness. Negative Zaria's maneuver ,no effusion, 4/5 strength in quadriceps and hip abductors, limited flexibility involving the hamstrings and IT band. Peripheral, vascular, lymphatic examination, skin, neurological, coordination, reflexes, sensation are within normal limits. X-RAY REPORT: X-rays were ordered, obtained and independently reviewed today at [facility] 3 views of the left knee findings include good joint space preservation with mild patellofemoral tilt. IMPRESSION: Symptomatic Patellofemoral Overload PLAN: Lengthy discussion held with patient regarding treatment alternatives pathophysiology associated with anterior knee pain. We talked about the importance of activity modification talked about the benefits of physical therapy for quadriceps and hip strengthening as well as improvements of neuromuscular balancing. Patient was referred to formal physical therapy to address these ongoing strength and flexibility deficits. Plan is to have the patient follow-up after course of therapy if symptoms continue to persist. [facility] speech recognition tv production assistant software was used to create portions of this document. An attempt at proofreading has been made to minimize errors. Please call for corrections. Armando Ortiz PA-C [address], [place], [address], [facility] 11/19/2023 10:47:31 OBGyn Episode No OBEpisode recorded.
--- OUTSIDE RECORDS SUMMARY | 2024-07-02 09:43 | XMS_ITS | Continuity of Care Document ---
Author Organization [facility] Address [address] [place] [address]- Support Name Relationship Address Phone HEMANT LEE Personal Relationship Unknown U navailable LEE, EMBER Personal Relationship Unknown Unavai lable LEE, MEBER Personal Relationship Unknown Unavai lable SKUSE, NARCISA [...] Unknown U navailable Care Team Providers Care Coverage Specialist Name Role Phone Miles OTOOLE, Bernie Hardy Primary Care Physician [facility]): 05/23/24 - 06/22/24 [facility] [address] [place] [address] Encounter Type: Triage Allergies, Adverse Reactions, Alerts [...] (oldterm) 8 03/14/09 Given 1Result Comment: [09/19/2017] [id number] 2Result Comment: [02/13/2018] [id number] 3Result Comment: [02/08/2017] [facility] [id number] 4Result Comment: [01/24/2013] ORDERRED BY [...] EDT, Route to Pharmacy Electronically, [facility], 163, cm, 11/22/20 12:47:00 EDT, [...] 6:54:00 AM EDT, 04/15/24 6:54:00 AM EST, [facility], Partial fill upon patient request [...] 2 Refills, Maintenance, 03/24/24 3:28:00 PM EST, [facility], 163, cm, 03/07/24 8:07:00 EDT, [...] 7:45:00 AM EST, Route to Pharmacy Electronically, [facility], 163, cm, 03/07/24 8:07:00 EDT, [...] 04/25/24 Status: Ordered Repeat number: 1 Pen [place], 31 G x 5 mm BD Ultra [...] Member Role: Lifetime Consulting Physician Address: [address] [place] [address] [address] [place] [address]- [place] Tele[employer]: Name: Lore Clinton RN Position: [facility] AMB Nurse Member Role: Primary Care Nurse Name: Chris Rosenbaum MD Position: [facility] ADVERTISING DISPLAY ROTATOR MD Member Role: Lifetime ADVERTISING DISPLAY ROTATOR Physician Address: [address] [place] [address] [place] [address]- [place] Tele[employer]: Name: Bernie Aquion NP Position: [facility] PCO Associate Professional Member Role: PCP Address: [address] [place] [address]- [place] Tele[employer]: Name: Gregg Hardy MD Position: [facility] Pulmonary MD Member Role: Lifetime Consulting Physician Address: [address] [place] [address]- [place] Telecom: Care Team Related Persons Name: ONDINA SINGLETARY Name: BLAIRE JACOB Insurance Providers Guarantor name: HEMANT LEE Health Plan Information #: 1 Payer: OUT OF STATE PLANS Member Number: NA Policy Number: NA Group Number: NA Health Plan Information #: 2 Payer: MEDICARE PART B OUTPT Member Number: NA Policy Number: NA Group Number: NA Health Plan Information #: 3 Payer: [facility] Member Number: NA Policy Number: NA Group Number: NA
--- OUTSIDE RECORDS SUMMARY | 2024-07-02 09:43 | XMS_ITS | Continuity of Care Document ---
[facility] Address [address] [place] [address]- Support Name Relationship Address Phone HEMANT LEE [...] Unknown U navailable Care Team Providers Care Student Services Vice President Name Role Phone Miles OTOOLE, Bernie Hardy Primary Care Physician [facility](s): 05/23/24 - 06/22/24 [facility] Adult [address] [place] [address]- Encounter Type: Triage Allergies, Adverse Reactions, Alerts [...] (oldterm) 8 03/14/09 Given 1Result Comment: [09/19/2017] [id number] 2Result Comment: [02/13/2018] [id number] 3Result Comment: [02/08/2017] [facility] [id number] 4Result Comment: [01/24/2013] ORDERRED BY [...] Maintenance, 07/09/23 2:12:00 PM EST, [facility], 163, cm, 06/06/23 7:29:00 EST, [...] EDT, Route to Pharmacy Electronically, [facility], Partial fill upon patient request [...] EST, Route to Pharmacy Electronically, [facility], 163, cm, 03/07/23 8:42:00 EDT, [...] EDT, Route to Pharmacy Electronically, [facility], 163, cm, 11/22/20 12:47:00 EDT, [...] 6:54:00 AM EDT, 04/15/24 6:54:00 AM EST, [facility], Partial fill upon patient request [...] 2 Refills, Maintenance, 03/24/24 3:28:00 PM EST, [facility], 163, cm, 03/07/24 8:07:00 EDT, [...] 7:45:00 AM EST, Route to Pharmacy Electronically, [facility], 163, cm, 03/07/24 8:07:00 EDT, [...] 04/25/24 Status: Ordered Repeat number: 1 Pen [place], 31 G x 5 mm BD Ultra [...] Personnel Name: Marisa CHAIDEZ, Neto Osorio Position: [facility] Renal MD Member Role: Lifetime Consulting Physician Address: [address] [place] [address] [address] [facility] [address]- [place] Tele[employer]: Name: Lore Clinton RN Position: [facility] AMB Nurse Member Role: Primary Care Nurse Name: Chris Rosenbaum MD Position: [facility] STUDY LEAD MD Member Role: Lifetime STUDY LEAD Physician Address: [address] [place] [address]- [place] Tele[place]: Name: Bernie Aquino NP Position: [facility] PCO Associate Professional Member Role: PCP Address: [address] [place] [address]- [place] Telecom: Name: Gregg Hardy MD Position: [facility] Pulmonary MD Member Role: Lifetime Consulting Physician Address: [address] [place] [address]- [place] Telecom: Care Team Related Persons Name: ONDINA SINGLETARY Name: BLAIRE JACOB Insurance Providers Guarantor name: HEMANT LEE Health Plan Information #: 1 Payer: OUT OF STATE PLANS Member Number: NA Policy Number: NA Group Number: NA Health Plan Information #: 2 Payer: MEDICARE PART B OUTPT Member Number: VICENTE Policy Number: VICENTE Group Number: VICENTE Health Plan Information #: 3 Payer: [facility] Member Number: VICENTE Policy Number: VICENTE Group Number: NA
--- OUTSIDE RECORDS SUMMARY | 2024-07-02 09:43 | XMS_ITS | Continuity of Care Document ---
Author Organization [facility] David lt Address [address] [place] [address]- Support Name Relationship Address Phone HEMANT LEE [...] Unknown U navailable Care Team Providers Care Account Assistant Name Role Phone Miles OTOOLE, Bernie Hardy Primary Care Physician [phone] [facility](s): 05/26/24 - 06/25/24 [facility] Adult [address] [place] [address]- Encounter Type: Triage Allergies, Adverse Reactions, Alerts [...] (oldterm) 8 03/14/09 Given 1Result Comment: [09/19/2017] [id number] 2Result Comment: [02/13/2018] [id number] 3Result Comment: [02/08/2017] [facility] [id number] 4Result Comment: [01/24/2013] ORDERRED BY [...] Maintenance, 07/09/23 2:12:00 PM EST, [facility], 163, cm, 06/06/23 7:29:00 EST, [...] Maintenance, 10/15/23 8:40:00 AM EDT, [facility], Partial fill upon patient request [...] EDT, Route to Pharmacy Electronically, [facility], 163, cm, 11/22/20 12:47:00 EDT, [...] 6:54:00 AM EDT, 04/15/24 6:54:00 AM EST, [facility], Partial fill upon patient request [...] 2 Refills, Maintenance, 06/24/24 8:11:00 AM EST, [facility], 163, cm, 06/12/24 8:08:00 EST, [...] 7:45:00 AM EST, Route to Pharmacy Electronically, [facility], 163, cm, 03/07/24 8:07:00 EDT, [...] 04/25/24 Status: Ordered Repeat number: 1 Pen [place], 31 G x 5 mm BD Ultra [...] MD Member Role: Lifetime Consulting Physician Address: [address] [place] [address] [address] [place] [address]- [place] Tele[employer]: Name: Lore Clinton RN Position: [facility] AMB Nurse Member Role: Primary Care Nurse Name: Chris Rosenbaum MD Position: [facility] URBAN FORESTER MD Member Role: Lifetime URBAN FORESTER Physician Address: [address] [place], [place] [address] [place] [address]- [place] Tele[employer]: Name: Bernie Aquino NP Position: [facility] PCO Associate Professional Member Role: PCP Address: [address] [place] [address]- [place] Telecom: Name: Gregg Hardy MD Position: [facility] Pulmonary MD Member Role: Lifetime Consulting Physician Address: [address] [place] [address]- [place] Telecom: Care Team Related Persons Name: ONDINA SINGLETARY Name: BLAIRE JACOB Insurance Providers Guarantor name: HEMANT LEE Health Plan Information #: 1 Payer: OUT OF STATE PLANS Member Number: NA Policy Number: NA Group Number: NA Health Plan Information #: 2 Payer: MEDICARE PART B OUTPT Member Number: NA Policy Number: NA Group Number: NA Health Plan Information #: 3 Payer: [facility] Member Number: NA Policy Number: NA Group Number: NA
--- OUTSIDE RECORDS SUMMARY | 2024-07-02 09:43 | XMS_ITS | Encounter Summary ---
Author Organization [facility] Address [address] [place] [address] Care Team Providers Care Contracts Specialist Name Role Phone Bernie Aquino Primary Care Provider [phone] Reason for Visit * Reason Onset Date Comments Med Refill 06/09/2024 Encounter Details Date Type Department Care Team (Late st Contact Info) Description 06/09/2024 Refill [facility] [address] [place] [address] Product Trainer: Ginger Ness Social History Tobacco Use Types Packs/Day Years [...] Visit [facility] [address] [place] [address] Product Trainer: Adrienne Gutiérrez MD [address] [place] [address] documented as of this encounter Visit Diagnoses Not on filedocumented in this encounter Care Teams Contracts Specialist Relationship Specialty Start Date End Date Bernie Aquino [address] [place] [address] PCP - General 08/22/21 documented as of this encounter
--- OUTSIDE RECORDS SUMMARY | 2024-07-02 09:43 | XMS_ITS | Referral Summary ---
Author Organization [facility] Address [address] [place] [address] Care Team Providers Care Nurse Practitioner Adult Name Role Phone Bernie Aquino Primary Care Provider [phone] Encounters Date Type Department Care Team Description 06/11/[address] [facility] [address] [place] [address] Territory Sales Consultant: Gwen Pitts MA 06/09/[address] [facility] [address] [place] [address] Territory Sales Consultant: Ginger Ness 06/09/[address] [facility] [address] [place] [address] Territory Sales Consultant: Stefany Ramirez LPN 06/04/[address] [facility] [address] [place] [address] Territory Sales Consultant: Stefany Ramirez LPN 05/12/[address] [facility] [address] [place] [address] Territory Sales Consultant: Stefany Ramirez LPN 05/02/[address] [facility] [address] [place] [address] Territory Sales Consultant: Sair Workman Telephone Intake, Staff PAC Patient Request Call Back; PAC Appt Request - Established; PAC Sick/Symptoms from Last 3 Months Allergies Active Allergy Reactions Criticality Noted Date [...] patellofemoral joint 02/03/2022 Familial Mediterranean fever (CMS/HCC) Gastroesophageal reflux disease 02/03/2022 Hay fever 02/03/2022 [...] Bilateral hand numbness Left carpal tunnel syndrome Social History Tobacco Use Types Packs/Day Years [...] Description 11/18/2024 10:30 AM EDT Office Visit [facility] [address] [place] [address] Territory Sales Consultant: Adrienne Gutiérrez MD [address] [place] [address] Procedures * Due to [place] 360pi law, this organization might not be sharing negative HIV tests. Procedure Name Priority Date/Time Associated Diagnosis Comments COMPREHENSIVE METABOLIC PANEL Routine 04/20/2023 9:56 AM EST Chronic migraine without aura without status migrainosus, not intractable HM DIABETES EYE EXAM 11/10/2021 from Last 3 Months or Most Recently Relevant to Health Maintenance Results * Due to [facility] law, this organization might not be sharing negative HIV tests. * (ABNORMAL) Comprehensive Metabolic Panel (04/20/2023 9:56 AM EST) NA 141 135 - 145 mmol/L 04/20/2023 11:01 AM EST [employer] [facility] K 3.6 3.5 - 5.3 mmol/L 04/20/2023 11:01 AM EST [employer] [facility] Cl 107 97 - 110 mmol/L 04/20/2023 11:01 AM [facility] CO2 21(L) 24 - 32 mmol/L 04/20/2023 11:01 AM [facility] Anion Gap 13 5 - 15 04/20/2023 11:01 AM [facility] Glucose 139(H) 70 - 99 mg/dL 04/20/2023 11:01 AM [facility] Creatinine 0.89 0.50 - 1.20 mg/dL 04/20/2023 11:01 AM [facility] Calcium 9.1 8.7 - 10.7 mg/dL 04/20/2023 11:01 AM [facility] Total Protein 7.1 6.0 - 8.0 g/dL 04/20/2023 11:01 AM [facility] Albumin 4.4 3.5 - 4.8 g/dL 04/20/2023 11:01 AM [facility] Bilirubin, Total 0.2(L) 0.3 - 1.2 mg/dL 04/20/2023 11:01 AM [facility] Alkaline Phosphatase 115 30 - 115 U/L 04/20/2023 11:01 AM [facility] AST 14 10 - 40 U/L 04/20/2023 11:01 AM [facility] ALT 19 10 - 40 U/L 04/20/2023 11:01 AM [facility] BUN 19 7 - 23 mg/dL 04/20/2023 11:01 AM [facility] eGFR 81 >=60 mL/min/1. 73m2 04/20/2023 11:01 AM [facility] Comment:The estimated glomer ular filtration rate (eGFR) is calculated using a new formula developed by the NKF-ASN task force to eliminate race-based correction factors. The new formula uses serum/plasma creatinine, age, and gender to determine eGFR. A value below 60mls/min might indicate kidney disease and will be flagged. For additional information, see Eileen et al, Am J Kidney Dis. 2021;79(2):268- 288, A Unifying Approach for GFR estimation: Recommendations of the NKF-ASN Task Force on Reassessing the Inclusion of Race in Diagnosing Kidney Disease . Blood Structure of peripheral vein / Unknown Venipuncture / Unknown 04/20/2023 9:56 AM EST 04/20/2023 10:09 AM EST us Yeni Brown MD LAB BLOOD ORDERABLES Final R esult [email or web address] [address] [place] [address], * DIABETES EYE EXAM (11/10/2021) 11/10/2021 us Onbase Scan [facility] Final Resu lt from Last 3 Months or Most Recently Relevant to Health Maintenance Insurance MEDICARE [facility] OUT OF STATE O [facility] Advance Directives Documents on File Type Date Recorded Patient Trainmaster Expl [facility] Care Proxy 02/14/2017 2:27 PM Care Teams Nurse Practitioner Adult Relationship Specialty Start Date End Date Bernie Aquino [address] [place] [address] PCP - General 08/22/21
--- OUTSIDE RECORDS SUMMARY | 2024-07-02 09:44 | XMS_ITS | Encounter Summary ---
Author Organization [employer] Address [address] [place] [address] Care Team Providers Care Block Cableman Name Role Phone Bernie Aquino COOLER MAN Primary Care Provider Encounter Details Date Type Department Care Team (Late st Contact Info) Description 06/27/2024 7:41 AM EST Anesthesia Event [facility] [address] [place] [phone] Silvia Brooks MD [address] [place] [phone] Rekha Gamble CRNA [address] [place] [address] [place] [address] Anesthesia Record Procedure Summary Procedure Name Responsible Anesthesiologist Anesthesia Start Time Anesthesia Stop Time COLONOSCOPY Silvia Brooks MD 06/27/24 0741 06/27/24 081 1 Events Date Time Event Comment 06/27/2024 0733 0740 In Room 0741 An Start 0741 An Start Data The patient wa s reevaluated immediately before moderate or deep sedation use and before anesthesia induction. 0744 Anesthesia Ready 0805 an stop data 0807 Out of Room 0811 Handoff to RN I completed my handoff to the receiving nurse during which we: 1. Identified the patient 2. Identified the responsible provider 3. Reviewed the pertinent medical history 4. Discussed the surgical course 5. Reviewed intra-op anesthesia management and issues during anesthesia 6. Set expectations for post-procedure period 7. Allowed opportunity for questions and acknowledgement of understanding. 0811 An Stop Meds Name Total propofol (DIPRIVAN) injection 10 mg/mL 3 00 mg lidocaine PF (XYLOCAINE-MPF) local injec tion 2% 50 mg lactated Ringer's infusion 500 mL * Agents No agents on file. * Blood No blood administrations on file. Lines, Drains, and Airways Type Details Placement Removal Implantable Port Single Lumen 09/12/18; 1300; Right; Chest; Dr Stout; Chest 09/12/18 1300 by Audrey Muller, KAELA Peripheral IV Placement Date: 05/20/24; Placement Time: 633; Catheter Size: 20 G; Orientation: Left, Posterior; Location: Forearm; Site Prep: Chlorhexidine; Inserted by: Lala Littlejohn RN; Insertion Attempts: 1; Patient Tolerance: Tolerated well 05/20/24 06 by Lala Littlejohn RN Peripheral IV Placement Date: 06/27/24; Placement Time: 717; Catheter Size: 20 G; Orientation: Posterior, Right; Location: Hand; Insertion Attempts: 1; Patient Tolerance: Tolerated well; Removal Date: 06/27/24; Removal Time: 82206/27/24717 by Angelica Pete RN 06/27/24 08 by Eloisa Parada RN documented in this encounter Social History Tobacco Use Types Packs/Day Years [...] Denae Escobedo RN documented in this encounter Progress Notes * Rekha Gamble CRNA - 06/27/2024 8:11 AM EST Patient: Meredith Garcia Procedure Summary Date: 06/27/24 Room / Location: [facility] Anesthesia Start: 740 Anesthesia Stop: 810 Procedure: COLONOSCOPY Diagnosis: Anemia Elevated fecal calprotectin (Diarrhea) Scheduled Providers: Manda Seals MD; Rekha Gamble CRNA; Silvia Brooks MD Responsible Provider:Silvia Brooks MD Anesthesia Type: MAC ASA Status: 3 Anesthesia Plan: MAC Last Vitals: Vitals Value Taken Time BP 98/66 06/27/24 0811 Temp 97 06/27/24 0811 Pulse 87 06/27/24 0811 Resp 18 06/27/24 0811 SpO2 94 06/27/24 0811 No data recorded Anesthesia Post Evaluation Patient location during evaluation: PACU Patient participation: complete - patient participated Level of consciousness: sleepy but conscious Pain management: adequate Airway patency: patent Anesthetic complications: no Cardiovascular status: acceptable and hemodynamically stable Respiratory status: acceptable and room air Hydration status: acceptable Nausea: No Vomiting: No There were no known notable events for this encounter. * Silvia Brooks MD - 06/27/2024 7:31 AM EST 48 y.o. female scheduled for [COLONOSCOPY [GI6]] Ht Readings from Last 1 Encounters: 06/27/24 1.626 m (64 ) Wt Readings from Last 1 Encounters: 06/27/24 73.5 kg (162 lb) Body mass index is 27.81 kg/m??. 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, nephrogenic (CMS/HCC) Diabetes mellitus (CMS/HCC) Familial Mediterranean fever (CMS/HCC) Hypoparathyroidism (CMS/HCC) Hypothyroid Migraines WALTERS (nonalcoholic steatohepatitis) Past Surgical History: Procedure Laterality Date SECTION, LOW TRANSVERSE COLONOSCOPY 08/2017 10 yr ESOPHAGOGASTRODUODENOSCOPY 10/2023 nl/fundic gland polyps ESOPHAGOGASTRODUODENOSCOPY 07/2021 fundic gland polyps ESOPHAGOGASTRODUODENOSCOPY 06/2012 mild chronic esophagitis on bx THYROID LOBECTOMY Right US, SOFT TISSUE HEAD OR NECK (THYROID,PARATHYROID,PAROTID) subtotal parathyroidectomy Denies anesthesia complications Allergies Allergen Reactions Demerol [Meperidine] Nausea And Vomiting Morphine Nausea And Vomiting Nsaids (Non-Steroidal Anti-Inflammatory Drug) Other CKD Amoxicillin-Pot Clavulanate Other Other Reaction(s): increases sx Other reaction(s): Other (see comments) makes sicker makes sicker makes sicker makes sicker Other reaction(s): Other (see comments) makes sicker makes sicker makes sicker Azithromycin Other Other Reaction(s): increases sx's Other reaction(s): Other (see comments) Diarrhea Diarrhea Diarrhea Diarrhea Other reaction(s): Other (see comments) Diarrhea Diarrhea Diarrhea Reglan [Metoclopramide Hcl] Vision Problem Adhesive Tape-Silicones Rash Flonase [Fluticasone] Headache Current Outpatient Medications on File Prior to Encounter Medication Sig Dispense Refill aMILoride (MIDAMOR) 5 mg tablet Take 2 tablets (10 mg total) by mouth 1 (one) time each day. atorvastatin (LIPITOR) 10 mg tablet Take 4 tablets (40 mg total) by mouth at bedtime. colchicine (COLCRYS) 0.6 mg tablet Take 3 tablets (1.8 mg total) by mouth 1 (one) time each day. Emgality Pen 120 mg/mL injection pen INJECT 1ML UNDER THE SKIN EVERY 28 DAYS ferrous gluconate (FERGON) 324 mg (38 mg iron) tablet Take 1 tablet (324 mg total) by mouth 1 (one)time each day. 30 each 2 gabapentin (NEURONTIN) 300 mg capsule Take 2 capsules (600 mg total) by mouth 3 (three) times a day. hepatitis B immune globulin 220 unit/mL solution 20 GRAMS EVERY 3 WEEKS, 0 Refills, Maintenance, 05/11/21 10:18:00 EST, Partial fill upon patient request if the prescription is for a schedule II opioid drug. lamoTRIgine (LaMICtal XR) 200 mg tablet extended release 24hr 24 hr tablet Take 1 tablet (200 mg total) by mouth. at bedtime levoFLOXacin (LEVAQUIN) 500 mg tablet Take 1 tablet (500 mg total) by mouth 1 (one) time each day. for 7 days levothyroxine (SYNTHROID, LEVOTHROID) 50 mcg tablet TAKE ONE TABLET BY MOUTH EVERY DAY SUNDAY TO SUNDAY AND 1.5 TABLETS ON SUNDAY magnesium oxide (MAG-OX) 400 mg magnesium tablet Take 1 tablet (400 mg total) by mouth 1 (one) timeeach day. melatonin 10 mg tablet Take 1 [...] total) by mouth1 (one) time each day. omeprazole (PriLOSEC) [address] capsule Take 1 capsule (40 mg total) by mouth 2 (two) times a day. OXcarbazepine (TRILEPTAL) 300 mg tablet Take 3 tablets (900 mg total) by mouth 2 (two) times a day. topiramate (TOPAMAX) 50 mg tablet Take 1 tablet (50 mg total) by mouth 2 (two) times a day. venlafaxine (EFFEXOR) 75 mg tablet Take 1 tablet (75 mg total) by mouth 2 (two) times a day. Xolair 300 mg/2 mL syringe benztropine (COGENTIN) 1 mg tablet Take 1 tablet (1 mg total) by mouth. (Patient not taking: Reported on 06/13/2024) kakxqbjipv-fssgzskojzuzd-qvzanbcx (FIORICET, ESGIC) 50-325-40 mg per tablet Take 1 tablet by mouth every 4 (four) hours if needed for headaches. cetirizine (ZyrTEC) 10 mg tablet Take 1 tablet (10 mg total) by mouth 1 (one) time each day. Combivent Respimat 20-100 mcg/actuation inhaler INHALE 1 PUFF UP TO FOUR TIMES A DAY IF NEEDED cyclobenzaprine (FLEXERIL) 10 mg tablet Take 1 tablet (10 mg total) by mouth 2 (two) times a day ifneeded for muscle spasms for up to 10 days. 20 tablet 0 docusate sodium (COLACE) 100 mg capsule take one capsule by mouth two times a day as needed for constipation EPINEPHrine (EPIPEN) 0.3 mg/0.3 mL injection Inject 0.3 mL (0.3 mg total) into the thigh. famotidine (PEPCID) 20 mg tablet Take 1 tablet (20 mg total) by mouth. (Patient not taking: Reported on 06/13/2024) lqsybvdbjmr-nnhmxcmtuhpw-iulybmxjva (Trelegy Ellipta) 100-62.5-25 mcg inhaler Inhale 1 puff (100 mcg total) by mouth. HYDROmorphone (DILAUDID) 2 mg tablet 300 tablets (600 mg total) 3 (three) times a day. hydrOXYzine HCL (ATARAX) 25 mg tablet Take 1 tablet (25 mg total) by mouth 2 (two) times a day. hydrOXYzine pamoate (VISTARIL) 50 mg capsule Take 1 capsule (50 mg total) by mouth. (Patient not taking: Reported on 06/13/2024) insulin aspart (NovoLOG Flexpen U-100 Insulin) 100 unit/mL (3 mL) injection pen lamoTRIgine (LaMICtal) 25 mg tablet Take 2 tablets (50 mg total) by mouth 1 (one) time each day in the morning. lidocaine (LMX) 4 % cream Apply topically 4 (four) times a day if needed for mild pain. 30 g 0 loperamide (IMODIUM) 2 mg capsule Take 1 capsule (2 mg total) by mouth. ondansetron (ZOFRAN) 4 mg tablet Take 1 tablet (4 mg total) by mouth every 8 (eight) hours if needed for nausea or vomiting. (Patient not taking: Reported on 06/13/2024) ondansetron ODT (ZOFRAN-ODT) 4 mg disintegrating tablet Let 1 tablet dissolve under the tongue three times daily as needed for nausea or vomiting. (Patient taking differently: 2 tablets (8 mg total).Let 1 tablet dissolve under the tongue three times daily as needed for nausea or vomiting.) 10 tablet 0 oxyCODONE (ROXICODONE) 5 mg immediate release tablet Take 1 tablet (5 mg total) by mouth every 6 (six) hours if needed for severe pain. Max Daily Amount: 20 mg (Patient not taking: Reported on 06/13/2024) 15 tablet 0 predniSONE (DELTASONE) 20 mg tablet See Instructions, 1-2 tablet By Mouth Daily, PRN, 0 Refills, Maintenance, 04/25/24 10:42:00 AM EST, Partial fill upon patient request if the prescription is for a schedule II opioid drug. rizatriptan (MAXALT) 10 mg tablet TAKE ONE TABLET BY MOUTH NEEDED FOR MIGRAINE MAY REPEAT IN 2 HOURS IF UNRESOLVED, DO NOT EXCEED 30MG IN 24 HOURS Trulicity 1.5 mg/0.5 mL pen injector injection Inject 0.5 mL (1.5 mg total) under the skin. No current facility-administered medications on file prior to encounter. Current In-hospital Medications Social History Tobacco Use Smoking status: Never Smokeless tobacco: Never Substance Use Topics Alcohol use: Never Drug use: Not Currently Types: Marijuana/Cannabis Is the patient a current smoker (e.g. cigarette, cigar, pip, e-cigarette, or mariajuana)? Yes [] No[] Patient previously instructed to abstain from smoking on the day of procedure? Yes [] No[] Patient smoked on the day of procedure? Yes [] No[] ASPIRE smoking VBR: [] Not interested in quitting [] Interested in quitting- referred to treatment [] Interested in quitting - treatment provided Visit Vitals BP 118/84 Pulse 101 Temp 36.6 ??C (97.9 ??F) (Temporal) Resp 16 Ht 1.626 m (64 ) Wt 73.5 kg (162 lb) SpO2 97% BMI 27.81 kg/m?? Smoking Status Never BSA 1.79 m?? Available cardiac studies reviewed: XR Abdomen 1 View Result Date: 06/16/2024 Narrative: History: Abdominal pain, nausea and vomiting. Comparison: 12/30/23, CT abdomen/pelvis 03/03/24 Findings: AP supine views of the abdomen and pelvis. Ventral herniorrhaphy clips are noted. There are air-filled small and large bowel loops, nonspecific. Solid visceral outlines appear unremarkable. Numerous punctate calcifications project over the renal shadows, unchanged, consistent with known renal calculi. An intrauterine device is noted. The regional skeleton is intact. Impression: Impression: 1. Nonspecific bowel pattern. 2. Nephrolithiasis. [place] ([id number]) -------- FINAL REPORT -------- Dictated By: Frannie Eng Dictated Date: 06/16/2024 15:04 ET Assigned Physician: Frannie Eng Reviewed and Electronically Signed By: Frannie Eng Signed Date: 06/16/2024 15:07 ET Workstation ID: [id number] Transcribed By: Self Edit Transcribed Date: 06/16/2024 15:[address] Head wo Contrast Result Date: 06/05/2024 Narrative: PROCEDURE: Noncontrast head CT. HISTORY: headache. COMPARISON: Head CT 12/29/2013 TECHNIQUE: Noncontrast head CT with coronal and sagittal reformats. Dose length product: 809 mGy-cm. FINDINGS: Brain: No hemorrhage, edema, mass, or extra-axial fluid collection. No CT evidence of an acute large vessel infarct. Ventricles and sulci are age commensurate. Orbits: Normal. Sinuses/mastoids: Bilateral maxillary antrostomies and partial ethmoidectomies. Hypoplastic right frontal sinus. Calvarium: Normal. Other: The skull base soft tissues are normal. Small amount of debris in the external auditory canals. Mild degenerative changes of the temporomandibular joints. Impression: No acute intracranial findings. -------- FINAL REPORT -------- Dictated By: Raheem Dias Dictated Date: 06/05/2024 09:29 ET Assigned Physician: Raheem Dias Reviewed and Electronically Signed By: Raheem Dias Signed Date: 06/05/2024 09:31 ET Workstation ID: [id number] Transcribed By: Self Edit Transcribed Date: 06/05/2024 09:29 ET EKG Encounter Date: 06/05/24 ECG 12 lead Result Value Ventricular Rate ECG 99 Atrial Rate 99 P-R Interval 162 QRS Duration 92 Q-T Interval 376 QTc 482 P Wave Barney 28 R Barney 29 T Barney 44 ECG Interpretation Normal sinus rhythm Prolonged QT Abnormal ECG When compared with ECG of 04-MAY-2024 14:40, No significant change was found Confirmed by Jerome SALAS JOHN ([id number]) on 06/05/2024 10:56:55 AM *Note: Due to a large number of results and/or encounters for the requested time period, some results have not been displayed. A complete set of results can be found in Results Review. ECHO No results found for this or any previous visit. CATH No results found for this or any previous visit. LABS: Lab Results Component Value Date WBC 9.7 06/04/2024 HGB 11.9 06/04/2024 HCT 40.9 06/04/2024 MCV 70.6 (L) 06/04/2024 PLT 415 (H) 06/04/2024 Lab Results Component Value Date GLUCOSE 197 (H) 06/04/2024 CALCIUM 8.8 06/04/2024 NA 135 06/04/2024 K 4.0 06/04/2024 CO2 22 06/04/2024 CL 108 06/04/2024 BUN 17 06/04/2024 CREATININE 1.08 06/04/2024 Lab Results Component Value Date INR 1.0 04/09/2024 INR 0.9 04/01/2024 No results found for: PTT Denies cardiac, pulm, neuro, hepatic or renal s/sx. Patient meets ASA guidelines for NPO status. > 4 mets without anginal symptoms. Relevant labs, vitals, imaging, cardiac and pulmonary studies as well as HPI, Meds, Allergies, ROS,PMH, PSH, SH, and FH reviewed. Relevant Problems Cardio Prolonged QT /Renal (+) Chronic renal impairment, stage 3 (moderate) (CMS/HCC) Pulmonary (+) Asthma Endo (+) Hypothyroidism (+) Type 2 diabetes mellitus without complication (CMS/HCC) GI WALTERS Clinical information reviewed: Tobacco Allergies Meds Med Hx Surg Hx OB Status Fam Hx Soc Hx Anesthesia Plan ASA 3 Anesthesia Plan: MAC Anesthesia Considerations MAC Plan Factors Patient is not a current smoker Smoking cessation education has not been provided Induction method: intravenous Anesthetic plan and risks discussed with patient. Anesthesia Plan discussed with CONSTRUCTION EQUIPMENT MECHANIC. Anesthesia Evaluation Airway Mallampati: II Thyromental distance: >3 FB Neck ROM: fullnot intubatedno noted risk Dental Pulmonary breath sounds clear to auscultation Cardiovascular Rhythm: regular Rate: normal Neuro/Psych Mental Status: alert and oriented GI/Hepatic/Renal Endo/Other Abdominal Abdomen: soft. Bowel sounds: normal. PONV RISK SCORE: 3 Vitals: 06/27/24 0718 BP: 118/84 Pulse: 101 Resp: 16 Temp: 36.6 ??C (97.9 ??F) TempSrc: Temporal SpO2: 97% Weight: 73.5 kg (162 lb) Height: 1.626 m (64 ) SpO2 Readings from Last 1 Encounters: 06/27/24 97% WBC Date Value Ref Range Status 06/04/2024 9.7 4.8 - 10.8 K/mcL Final RBC Date Value Ref Range Status 06/04/2024 5.80 (H) 3.80 - 4.80 M/mcL Final Hemoglobin Date Value Ref Range Status 06/04/2024 11.9 11.5 - 16.0 g/dL Final Hematocrit Date Value Ref Range Status 06/04/2024 40.9 35.0 - 47.0 % Final Platelets Date Value Ref Range Status 06/04/2024 415 (H) 130 - 400 K/mcL Final MCV Date Value Ref Range Status 06/04/2024 70.6 (L) 79.0 - 98.0 FL Final Allergies Allergen Reactions Demerol [Meperidine] Nausea And Vomiting Morphine Nausea And Vomiting Nsaids (Non-Steroidal Anti-Inflammatory Drug) Other CKD Amoxicillin-Pot Clavulanate Other Other Reaction(s): increases sx Other reaction(s): Other (see comments) makes sicker makes sicker makes sicker makes sicker Other reaction(s): Other (see comments) makes sicker makes sicker makes sicker Azithromycin Other Other Reaction(s): increases sx's Other reaction(s): Other (see comments) Diarrhea Diarrhea Diarrhea Diarrhea Other reaction(s): Other (see comments) Diarrhea Diarrhea Diarrhea Reglan [Metoclopramide Hcl] Vision Problem Adhesive Tape-Silicones Rash Flonase [Fluticasone] Headache STOP BANG: No data recorded NPO Status: Time of Last Liquid: 0400 Time of Last Solid: 1900 documented in this encounter Plan of Treatment Upcoming Encounters Date Type Department Care Team (Late st Contact Info) Description 07/22/2024 9:00 AM EDT Appointment [facility] [address] [facility] 2nd [place] [phone] 09/10/2024 9:10 AM EDT Office Visit Gastroenterology - [address] [facility] [address] [place] [phone] Leif Burciaga PA [address] [facility] [address] [place] [address] documented as of this encounter Visit Diagnoses Not on filedocumented in this encounter Administered Medications Inactive Administered Medications - up to 3 most recent administrations Medication Order MAR Action Action Date Dose Rate Site lactated Ringer's infusion intravenous, Continuous PRN, Starting on Sun06/27/24 at 0741, Anesthesia Intraprocedure New Bag 06/27/2024 7:41 AM EST lidocaine (PF) (XYLOCAINE-MPF) 2 % injection injection, As needed, Starting on Sun06/27/24 at 0744, Anesthesia Intraprocedure Given 06/27/2024 7:44 AM EST 50 mg propofoL (DIPRIVAN) injection intravenous, As needed, Starting on Sun06/27/24 at 0744, Anesthesia Intraprocedure Given 06/27/2024 8:03 AM EST 50 mg Given 06/27/2024 8:00 AM EST 50 mg Given 06/27/2024 7:53 AM EST 50 mg documented in this encounter Care Teams Block Cableman Relationship Specialty Start Date End Date Bernie Aquino NP [address] [facility] [place] [address] PCP - General Family Medicine 10/05/21 documented as of this encounter
--- OUTSIDE RECORDS SUMMARY | 2024-07-02 09:44 | XMS_ITS | Encounter Summary ---
Author Organization [employer] Address [address] [place] [address] Care Team Providers Care Tractor Operator Battery Name Role Phone Bernie Aquino PRINCIPAL TECHNICAL SPECIALIST Primary Care Provider Encounter Details Date Type Department Care Team (Late st Contact Info) Description 06/24/2024 Telephone Gastroenterology - [address] [place] [address] Merly Lyons [place] Social History [...] of Assessment Author No 05/20/2024 3:30 AM ALNCE Littlejohn, As jenifer Mcdaniel RN documented as of this encounter Mental Status * Because of a physical, mental, or emotional condition, do you have serious difficulty concentrating, remembering, or making decisions? (5 years old or older) Answer Entry Date Author No 05/20/2024 3:30 AM LANCE Littlejohn, As jenifer Mcdaniel RN documented in this encounter Progress Notes * Merly Lyons MA - 06/24/2024 11:47 AM EST SPOKE WITH PT, MOVED 08/04/24 PROC TO 06/27/24 AT [facility] AT 730AM. WENT OVER PREP INSTRUCTIONS WITH PT. PT TO HOLD DIABETES MEDS NIGHT BEFORE AND AM OF TEST. PT HELD TRULICITY AND IRON. documented in this encounter Plan of Treatment Upcoming Encounters Date Type Department Care Team (Late st Contact Info) Description 07/22/2024 9:00 AM EDT Appointment [facility] [address] [facility] 2nd [place] [phone] 09/10/2024 9:10 AM EDT Office Visit Gastroenterology - [address] [facility] [address] [place] [phone] Leif Burciaga PA [address] [facility] [address] [place] [address] documented as of this encounter Visit Diagnoses Not on filedocumented in this encounter Care Teams Tractor Operator Battery Relationship Specialty Start Date End Date Bernie Aquino NP [address] [facility] [place] [address] PCP - General Family Medicine 10/05/21 documented as of this encounter
--- OUTSIDE RECORDS SUMMARY | 2024-07-02 09:44 | XMS_ITS | Encounter Summary ---
Author Organization [facility] Address [address] [place] [address] Care Team Providers Care Blood Bank Laboratory Technologist Name Role Phone Bernie Aquino ARMATURE AND ROTOR WINDER Primary Care Provider [phone] Encounter Details Date Type Department Care Team (Late st Contact Info) Description 06/30/2024 Telephone Gastroenterology - [address] [phone] Manda Seals MD [address] [address] [address] Social History Tobacco Use Types Packs/Day Years [...] 3:30 AM LANCE Littlejohn, Denae Mcdaniel RN documented as of this encounter Mental Status * Because of a physical, mental, or emotional condition, do you have serious difficulty concentrating, remembering, or making decisions? (5 years old or older) Answer Entry Date Author No 05/20/2024 3:30 AM LANCE Littlejohn, Denae Mcdaniel RN documented in this encounter Progress Notes * Kristen Monahan - 06/30/2024 11:25 AM EST PT CALLED STATING THAT FOLLOWING HER COLONOSCOPY ON 06/27 SHE HAS HAD LOWER ABD PAIN, DIFFICULTY PASSING STOOL BUT WHEN SHE DOES GO ITS EXTREMELY SOFT STOOL. documented in this encounter Plan of Treatment Upcoming Encounters Date Type Department Care Team (Late st Contact Info) Description 07/22/2024 9:00 AM EDT Appointment [facility] [address] [facility] 2nd [place] [phone] 09/10/2024 9:10 AM EDT Office Visit Gastroenterology - [address] [facility] [address] [facility] [address] [place] [phone] Leif Burciaga PA [address] [facility] [address] [place] [phone] documented as of this encounter Visit Diagnoses Not on filedocumented in this encounter Care Teams Blood Bank Laboratory Technologist Relationship Specialty Start Date End Date Bernie Aquino NP [address] [facility] [place] [address] PCP - General Family Medicine 10/05/21 documented as of this encounter
--- OUTSIDE RECORDS SUMMARY | 2024-07-02 09:44 | XMS_ITS | Encounter Summary ---
Author Organization [employer] Address [address] [place] [address] Care Team Providers Care Double Bottom Driver Name Role Phone Bernie Aquino FINANCIAL ACCOUNTING ANALYST Primary Care Provider Encounter Details Date Type Department Care Team (Late st Contact Info) Description 06/20/2024 Telephone Gastroenterology - [address] [place] [phone] Leif Burciaga PA [address] [place] [address] [phone] Social History Tobacco Use Types Packs/Day Years [...] documented in this encounter Progress Notes * ROMY Ocasio - 06/20/2024 4:17 PM EST Spoke with pt. We will try to get her colonoscopy next week with Dr. Seals at [facility]. Dr. Seals will verify with anesthesia fist due to mild prolonged QT. Pt currently booked for july. We need tor/o IBD, maria elena with [facility]. Pt knows to skip Trulicity tomorrow and hold iron as of today. Skip metfomin PM before and AM of procedure. No insulin use currently. Only when on prednisone. documented in this encounter Plan of Treatment Upcoming Encounters Date Type Department Care Team (Late st Contact Info) Description 07/22/2024 9:00 AM EDT Appointment [facility] [address] [place] [phone] 09/10/2024 9:10 AM EDT Office Visit Gastroenterology - [address] [place] [phone] Leif Burciaga PA [address] [place] [phone] documented as of this encounter Visit Diagnoses Not on filedocumented in this encounter Care Teams Double Bottom Driver Relationship Specialty Start Date End Date Bernie Aquino NP [address] [facility] [place] [address] PCP - General Family Medicine 10/05/21 documented as of this encounter
--- OUTSIDE RECORDS SUMMARY | 2024-07-02 09:44 | XMS_ITS | Encounter Summary ---
Author Organization [employer] Address [address] [place] [address] Care Team Providers Care Display Screen Fabricator Name Role Phone Bernie Aquino HOME HELP AIDE Primary Care Provider [phone] Encounter Details Date Type Department Care Team (Latest Contact Info) Description 06/13/2024 3:24 PM EST - 06/13/2024 11:59 PM EST Hospital Encounter [facility] Xray [address] [place] [address] Nausea; Generalized abdominal pain; Change in bowel habits Discharge Disposition: Home or Self Care Social [...] Author No 05/20/2024 3:30 AM EST Denae Littlejohnee L, RN * Do you have serious difficulty [...] Denae Mcdaniel RN documented in this encounter Medications at [...] or Self Care documented in this encounter Plan of Treatment Upcoming Encounters Date Type Department Care Team (Late st Contact Info) Description 07/22/2024 9:00 AM EDT Appointment [facility] [address] [place] [phone] 09/10/2024 9:10 AM EDT Office Visit Gastroenterology - [address] [facility] [address] [place] [phone] Leif Burciaga PA [address] [facility] [facility] [address] [place] [phone] documented as of this encounter Procedures Procedure Name Priority Date/Time Associated Diagnosis Comments XR ABDOMEN 1 VIEW Routine 06/13/2024 3:3 8 PM EST Nausea Generalized abdominal pain Change in bowel habits documented in this encounter Results * XR Abdomen 1 View (06/13/2024 3:38 PM EST) Anatomical Region Laterality Modality Body Radiographic Viki ging 06/16/2024 3:04 PM EST Impressions 06/16/2024 3:07 PM EST Impression: 1. Nonspecific bowel pattern. 2. Nephrolithiasis. No significant change. Telerad ROMY ([id number]) -------- FINAL REPORT -------- Dictated By: Frannie Eng Dictated Date: 06/16/2024 15:04 ET Assigned Physician: Frannie Eng Reviewed and Electronically Signed By: Frannie Eng Signed Date: 06/16/2024 15:07 ET Workstation ID: [id number] Transcribed By: Self Edit Transcribed Date: 06/16/2024 [...] pattern. 2. Nephrolithiasis. No significant change. Telerad ROMY ([id number]) -------- FINAL REPORT -------- Dictated By: Frannie Eng Dictated Date: 06/16/2024 15:04 ET Assigned Physician: Frannie Eng Reviewed and Electronically Signed By: Frannie Eng Signed Date: 06/16/2024 15:07 ET Workstation ID: [id number] Transcribed By: Self Edit Transcribed Date: 06/16/2024 15:04 ET Leif STANTON IMG XR PROCEDURES Final Resu lt documented in this encounter Visit Diagnoses Diagnosis Nausea Nausea alone Generalized abdominal pain Abdominal pain, generalized Change in bowel habits Other symptoms involving digestive system documented in this encounter Care Teams Display Screen Fabricator Relationship Specialty Start Date End Date Bernie Aquino NP [address] [facility] [place] [address] PCP - General Family Medicine 10/05/21 documented as of this encounter
--- OUTSIDE RECORDS SUMMARY | 2024-07-02 09:44 | XMS_ITS | Encounter Summary ---
Author Organization [employer] Address [address] [place] [address] Care Team Providers Care Vegetable Tier Name Role Phone Bernie Aquino BAG SHAKER Primary Care Provider Encounter Details Date Type Department Care Team (Late st Contact Info) Description 05/23/2024 Telephone Gastroenterology - [address] [place] [phone] Tanika Covington [place] Social History Tobacco Use Types Packs/Day [...] documented in this encounter Progress Notes * Tanika Covington [place] - 06/02/2024 4:20 PM EST error documented in this encounter Plan of Treatment Upcoming Encounters Date Type Department Care Team (Late st Contact Info) Description 07/22/2024 9:00 AM EDT Appointment [facility] [address] [facility] 2nd [place] [phone] 09/10/2024 9:10 AM EDT Office Visit Gastroenterology - [address] [facility] [address] [place] [phone] Leif Burciaga PA [address] [facility] [address] [place] [phone] documented as of this encounter Visit Diagnoses Not on filedocumented in this encounter Care Teams Vegetable Tier Relationship Specialty Start Date End Date Bernie Aquino, XIANG [address] [facility] [place] [address] PCP - General Family Medicine 10/05/21 documented as of this encounter
--- OUTSIDE RECORDS SUMMARY | 2024-07-02 09:44 | XMS_ITS | Encounter Summary ---
Author Organization [facility] Address [address] [place] [address] Care Team Providers Care Laundry Room Attendant Name Role Phone Bernie Aquino FINISHER TAILOR APPRENTICE Primary Care Provider [phone] Reason for Visit * Reason Comments Colonoscopy Bloody diarrhea/cons tipation Encounter Details Date Type Department Care Team (Late st Contact Info) Description 06/13/2024 2:20 PM EST Office Visit Gastroenterology - [address] [place] [phone] Leif Burciaga PA [address] [facility] [address] [place] [phone] Generalized abdominal pain (Primary Dx); Rectal bleeding; Nausea; Iron deficiency; Elevated alkaline phosphatase level; Change in bowel habits Social History Tobacco Use Types Packs/Day Years [...] - Inhaled Oxygen Concentration - - Weight 78 kg (172 lb) 06/13/2024 2:00 PM EST Height 162.6 cm (5' 4 ) 06/13/2024 2:00 PM EST Body Mass Index 29.52 06/13/2024 2:00 PM EST documented in this encounter Functional Status * Are you deaf or do you have serious difficulty hearing? Answer Date of Assessment Author No 05/20/2024 3:30 AM EST Annetta, As jenifer Mcdaniel RN * Are you blind or do [...] encounter Progress Notes * ROMY Ocasio - 06/13/2024 2:20 PM ESTAssociated Problem(s): Elevated alkaline phosphatase level Orders: Hepatic function panel; Future * ROMY Ocasio - 06/13/2024 2:20 PM EST Subjective Last Colononscopy/EGD: Colon 08/2017 - rhoids (10 yr); EGD 10/2023 fundic gland polyps HPI: Meredith Garcia is a 48 y.o. old female who presents to the gastroenterology department today for bleeding with bowel movements. She has the urge to go to the bathroom and has a pressure thatdevelops in her abdomen. She feels as if she has to position herself and lean forward in order to have a bowel movement. She is straining to go over there is only small loose soft to loose pieces of stool that are passing. At times it is watery. She purchased the squatty potty which has helped. Shefelt like she had to go to the bathroom although she passed just blood. It it was not bright red blood although it was not dark blood either. There were clumps of blood on the toilet paper when she wiped. She has ongoing nausea and dry heaving. That has been going on since last year and I have beenseeing her and working her up for that. She fell in her house and suffered a concussion earlier this month. She is dealing with migraines and TMJ. Her gabapentin was increased to 600 mg 3 times a dayfor that. She has been on prednisone for FMF episodes. She is currently off the prednisone. She is due to have genetics done for the FMF with her xerox machine assembler at [facility]. She also reports having an abnormal EKG in the emergency room. She goes to the emergency room often for dehydration and fluids. She is due to have an cardiac echo and is due to see a shop worker in August. She is on Trulicity and her dose was increased in April. Most recent labs from the emergency room on May 19 show that her alkaline phosphatase level has actually decreased. It was in the 300s and now it is downto 224. Her AST and ALT are now normal. She has an appointment for second opinion at [facility] marvin clark the liver biopsy she had last year that was abnormal. It questioned ascending cholangitis. She was not presenting with symptoms consistent with that. An abdominal MRI MRCP was ordered to rule out PSC. That imaging was overall unremarkable. Abdominal Pain This is a chronic problem. The current episode started more than 1 month ago. The onset quality is gradual. The problem occurs daily. The most recent episode lasted 3 months. The problem has been waxing and waning. The pain is located in the generalized abdominal region. The pain is at a severity of 5/10. The quality of the pain is aching, cramping and a sensation of fullness. The abdominal pain radiates to the epigastric region, periumbilical region, suprapubic region, back and perineum. Associated symptoms include anorexia, belching, constipation, diarrhea, flatus, frequency, headaches, hematochezia, nausea, vomiting and weight loss. Pertinent negatives include no arthralgias, dysuria, fever, hematuria, melena or myalgias. The pain is aggravated by certain positions, deep breathing and movement. The pain is relieved by Bowel movements, certain positions, recumbency and vomiting. Priordiagnostic workup includes CT scan, ultrasound and upper endoscopy. LABS/IMAGING: COMPREHENSIVE METABOLIC PANEL - Abnormal Result Value Sodium 139 Potassium 4.4 Chloride 111 (*) CO2 21 Anion Gap 7 Glucose 157 (*) BUN 17 Creatinine 0.96 eGFR 73 BUN/Creatinine Ratio 17.7 Calcium 8.9 AST (SGOT) 24 ALT (SGPT) 34 Alkaline Phosphatase 224 (*) Total Protein 7.1 Albumin 3.5 Total Bilirubin 0.2 CBC WITH AUTO DIFFERENTIAL - Abnormal WBC 8.1 RBC 5.50 (*) Hemoglobin 11.2 (*) Hematocrit 38.7 MCV 70.5 (*) MCH 20.4 (*) MCHC 28.9 (*) RDW 18.7 (*) Platelets 348 MPV 9.9 NRBC 0.0 NRBC Absolute 0.00 Neutrophils Relative 63.3 Lymphocytes Relative 24.3 Monocytes Relative 7.1 Eosinophils Relative 3.7 Basophils Relative 1.2 Immature Granulocytes Relative 0.4 Neutrophils Absolute 5.09 Lymphocytes Absolute 1.96 Monocytes Absolute 0.57 Eosinophils Absolute 0.30 Basophils Absolute 0.10 Immature Granulocytes Absolute Final Diagnosis A. Liver, biopsy: - Liver with marked acute (neutrophilic) inflammation with associated ductular reaction, neutrophils focally present in lumens of bile ducts and bile duct epithelium, portal edema, mild to moderate interface activity, consistent with acute large duct obstruction pattern and suspicious for ascendingcholangitis. (See note) - Mild macrosteatosis (20%) with scattered ballooned hepatocytes, lobular neutrophilic inflammation(2-4 foci per 200x magnification) with rare neutrophilic satellitosis, scattered ballooned hepatocytes with ill-formed Norma bodies, and punctate cell necrosis. (See note) - Lobular, portal, and henrietta-portal fibrosis (Cedric-Rafat stage 2). - Special stains: - Trichrome: shows lobular, and henrietta-portal fibrosis (Cedric-Rafat stage 2). - Iron: negative. - PAS-D: negative for alpha-1, anti-trypsin globules. - Controls stain appropriately. Note: The biopsy is notable for marked acute portal inflammation with accompanying ductular reaction, portal edema, neutrophils focally present in bile ducts lumen and epithelium, and mild to moderate interface activity. The presence of ductular reaction, acute portal inflammation, and portal edemaare seen in a large bile duct obstruction pattern, which is caused by downstream biliary obstruction: strictures, stones, tumors, ischemia, infection, vascular outflow disease, biliary atresia, and severe acute hepatitis. Of note, no henrietta- ductal fibrosis (onion skin fibrosis), seen in primary sclerosing cholangitis, is observed in the biopsy. The presence of neutrophils in some bile ducts and bile duct lumen in the background of marked acute portal inflammation, raises the suspicion of ascending cholangitis. A secondary process maybe also be involved. There is mild macrosteatosis (20%) with scattered ballooned hepatocytes with ill-formed Norma bodies, and neutrophilic portal inflammation (2-4 foci per 200x magnification). The WALTERS activity score is 4 of 8, and the score is indeterminate for non-alcoholic steatohepatitis (WALTERS). The presence of rare neutrophilic lobular satellitosis and ill-formed Norma bodies, raises the possibility of alcoholic steatohepatitis. In summary, there appears to be an acute process, large duct obstruction pattern and suspicion for ascending cholangitis, and there is likely an underlying chronic liver injury, as evidenced by presence of periportal fibrosis, which could be from one or combination of: chronic biliary obstruction, non-alcoholic steatohepatitis, and or alcoholic steatohepatitis. Clinicopathologic correlation is recommended. Dr. Mariaelena Reeder MD, ROMY Hicks, ROMY Steen, were notified of the diagnoses by [employer]aging application by Dr. Lionel Newton on 04/11/24 at 2:20 PM. MRI abdomen with MRCP dated 04/28/2024. HISTORY: RUQ abdominal pain, US nondiagnostic elevated alk phos/abnormal liver biopsy. ?ascending cholangitis ?PSC (nl bili, nl AMA). TECHNIQUE: Multiplanar multisequence MRI of the abdomen with and without intravenous contrast administration. MRCP was also performed, with multiple reformats. IV contrast dose: 15 mL Dotarem from a 15 mL vial with 0 mL discarded. COMPARISON: CT dated 04/10/2024. FINDINGS: Liver: Appears enlarged. No focal lesion. No evidence of steatosis on out of phase imaging. Small amount of fluid anterior to the left hepatic lobe correlating with a recent biopsy site. Portal and hepatic veins are patent. Biliary: Normal appearance of the gallbladder and biliary tree. Pancreas: Normal. Spleen: Enlarged, measuring 14.5 cm craniocaudal. Adrenal glands: Normal. Kidneys: Numerous T2 hyperintense renal cortical lesions suggestive of cysts. Visualized portions of the collecting systems are normal. Retroperitoneum: No mass or adenopathy. Bowel/mesentery: Visualized bowel and mesentery are normal. Bones: Mild degenerative changes of the spine. No suspicious bony lesion. IMPRESSION: The liver appears enlarged but is otherwise unremarkable. Normal appearance of the biliary tree. Splenomegaly. Review of Systems Constitutional: Positive for weight loss. Negative for fever. Gastrointestinal: Positive for abdominal pain, anorexia, constipation, diarrhea, flatus, hematochezia, nausea and vomiting. Negative for melena. Genitourinary: Positive for frequency. Negative for dysuria and hematuria. Musculoskeletal: Negative for arthralgias and myalgias. Neurological: Positive for headaches. 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 SOCIAL HISTORY: Social History Tobacco Use Smoking status: Never Smokeless tobacco: Never Substance Use Topics Alcohol use: Never FAMILY HISTORY: No family history on file. ACTIVE MEDICATIONS: Current Outpatient Medications Medication Sig Dispense Refill aMILoride (MIDAMOR) 5 mg tablet Take 2 tablets (10 mg total) by mouth 1 (one) time each day. atorvastatin (LIPITOR) 10 mg tablet Take 4 tablets (40 mg total) by mouth at bedtime. cetirizine (ZyrTEC) 10 mg tablet Take 1 tablet (10 mg total) by mouth 1 (one) time each day. colchicine (COLCRYS) 0.6 mg tablet Take 3 [...] mL (0.3 mg total) into the thigh. ferrous gluconate (FERGON) 324 mg (38 mg iron) tablet Take 1 tablet (324 mg total) by mouth 1 (one)time each day. 30 each 2 zhwrfsxncde-avtauesigckn-yvqiwxdcta (Trelegy Ellipta) 100-62.5-25 mcg inhaler Inhale 1 puff (100 mcg total) by mouth. gabapentin (NEURONTIN) 300 mg capsule Take 1 capsule (300 mg total) by mouth 3 (three) times a day. HYDROmorphone (DILAUDID) 2 mg tablet 300 tablets (600 mg total) 3 (three) times a day. hydrOXYzine HCL (ATARAX) 25 mg tablet Take 1 tablet (25 mg total) by mouth 2 (two) times a day. insulin aspart (NovoLOG Flexpen U-100 Insulin) 100 unit/mL (3 mL) injection pen lamoTRIgine (LaMICtal XR) 200 mg tablet extended release 24hr 24 hr tablet Take 1 tablet (200 mg total) by mouth. at bedtime lamoTRIgine (LaMICtal) 25 mg tablet Take 2 tablets (50 mg total) by mouth 1 (one) time each day in the morning. levothyroxine (SYNTHROID, LEVOTHROID) 50 mcg tablet TAKE ONE TABLET BY MOUTH EVERY DAY SUNDAY TO SUNDAY AND 1.5 TABLETS ON SUNDAY lidocaine (LMX) 4 % cream Apply topically 4 (four) times a day if needed for mild pain. 30 g 0 loperamide (IMODIUM) 2 mg capsule Take 1 capsule (2 mg total) by mouth. magnesium oxide (MAG-OX) 400 mg magnesium tablet [...] mouth 2 (two) times a day. ondansetron ODT (ZOFRAN-ODT) 4 mg disintegrating tablet Let 1 tablet dissolve under the tongue three times daily as needed for nausea or vomiting. (Patient taking differently: 2 tablets (8 mg total).Let 1 tablet dissolve under the tongue three times daily as needed for nausea or vomiting.) 10 tablet 0 OXcarbazepine (TRILEPTAL) 300 mg tablet Take 3 tablets (900 mg total) by mouth 2 (two) times a day. predniSONE (DELTASONE) 20 mg tablet See Instructions, [...] mouth. (Patient not taking: Reported on 06/13/2024) cyclobenzaprine (FLEXERIL) 10 mg tablet Take 1 tablet (10 mg total) by mouth 2 (two) times a day ifneeded for muscle spasms for up to 10 days. 20 tablet 0 famotidine (PEPCID) 20 mg tablet Take 1 tablet (20 mg total) by mouth. (Patient not taking: Reported on 06/13/2024) hydrOXYzine pamoate (VISTARIL) 50 mg capsule Take 1 capsule (50 mg total) by mouth. (Patient not taking: Reported on 06/13/2024) ondansetron (ZOFRAN) 4 mg tablet Take 1 tablet (4 mg total) by mouth every 8 (eight) hours if needed for nausea or vomiting. (Patient not taking: Reported on 06/13/2024) oxyCODONE (ROXICODONE) 5 mg immediate release tablet Take 1 tablet (5 mg total) by mouth every 6 (six) hours if needed for severe pain. Max Daily Amount: 20 mg (Patient not taking: Reported on 06/13/2024) 15 tablet 0 No current facility-administered medications for this visit. Facility-Administered Medications Ordered in Other Visits Medication Dose Route Frequency Provider Last Rate Last Admin loratadine (CLARITIN) tablet 10 mg 10 mg oral Once Deandre Schroeder MD ALLERGIES: Allergies Allergen Reactions Demerol [Meperidine] Nausea And [...] Problem Adhesive Tape-Silicones Rash Flonase [Fluticasone] Headache Physical Exam IMPRESSION: 1. Rectal bleeding 2. Nausea 3. Generalized abdominal pain 4. Iron deficiency 5. Elevated alkaline phosphatase level 6. Change in bowel habits Assessment/Plan Assessment & Plan Rectal bleeding Orders: Calprotectin, stool; Future Nausea Orders: XR Abdomen 1 View; Future Hepatic function panel; Future Generalized abdominal pain Orders: XR Abdomen 1 View; Future Iron deficiency Elevated alkaline phosphatase level Orders: Hepatic function panel; Future Change in bowel habits Orders: XR Abdomen 1 View; Future Calprotectin, stool; Future I have ordered a KUB to assess for constipation given the issues with the bowel movements. I suspect the bleeding was due to a hemorrhoid although I did also order fecal calprotectin to assess for an inflammatory process. I had scheduled her for colonoscopy last fall due to anemia although she had to cancel that. A colonoscopy would be typically rescheduled, although significant cardiac abnormalities should be ruled out before the colonoscopy at this point. We are awaiting the sec opinion at [facility] regarding the elevated alk phos and abnormal liver biopsy. I will reach out to her with further recommendations and treatment pending the x-ray and fecal calprotectin level. She was also given a scheduled office visit in 3 months ROMY Ocasio 2:36 PM EST documented in this encounter Plan of Treatment Upcoming Encounters Date Type Department Care Team (Late st Contact Info) Description 07/22/2024 9:00 AM EDT Appointment [facility] [address] [place] [phone] 09/10/2024 9:10 AM EDT Office Visit Gastroenterology - [address] [place] [address] Leif Burciaga PA [address] [place] [phone] Scheduled Orders Name Type Priority Associated Diagnoses Orde r Schedule Calprotectin, stool Lab Routine Rectal bleeding Change in bowel habits 1 Occurrences starting 06/13/2024 until 06/13/2025 documented as of this encounter Results * XR Abdomen 1 View (06/13/2024 3:38 PM EST) Anatomical Region Laterality Modality Body Radiographic Viki ging 06/16/2024 3:04 PM EST Impressions 06/16/2024 3:07 PM EST Impression: 1. Nonspecific bowel pattern. 2. Nephrolithiasis. No significant change. Telerad PA ([id number]) -------- FINAL REPORT -------- Dictated By: Frannie Eng Dictated Date: 06/16/2024 15:04 ET Assigned Physician: Frannie Eng Reviewed and Electronically Signed By: Frannie Eng Signed Date: 06/16/2024 15:07 ET Workstation ID: [id number] Transcribed By: Self Edit Transcribed Date: 06/16/2024 [...] 2. Nephrolithiasis. No significant change. Telerad PA ([id number]) -------- FINAL REPORT -------- Dictated By: Frannie Eng Dictated Date: 06/16/2024 15:04 ET Assigned Physician: Frannie Eng Reviewed and Electronically Signed By: Frannie Eng Signed Date: 06/16/2024 15:07 ET Workstation ID: [id number] Transcribed By: Self Edit Transcribed Date: 06/16/2024 15:04 ET Leif STANTON IMG XR PROCEDURES Final Resu lt * (ABNORMAL) Hepatic function panel (06/13/2024 3:08 PM EST) Total Protein 7.0 6.0 - 8.0 g/dL LAB CHEMISTRY METHOD 06/13/2024 4:[address] [facility] Albumin 3.3 3.2 - 5.0 g/dL LAB CHEMISTRY METHOD 06/13/2024 4:54 PM [facility] Total Bilirubin 0.2 0.0 - 1.4 mg/dL LAB CHEMISTRY METHOD 06/13/2024 4:54 PM [facility] Bilirubin, Direct <0.1 0.0 - 0.3 mg/dL LAB CHEMISTRY METHOD 06/13/2024 4:54 PM [facility] Bilirubin, Indirect LAB CHEMISTRY METHOD 06/13/2024 4:54 PM [facility] Comment:Unable to calculate Indirect Bilirubin. ALT (SGPT) 30 10 - 60 unit/L LAB CHEMISTRY METHOD 06/13/2024 4:54 PM [facility] AST (SGOT) 22 10 - 42 unit/L LAB CHEMISTRY METHOD 06/13/2024 4:54 PM [facility] Alkaline Phosphatase 157(H) 42 - 121 unit/L LAB CHEMISTRY METHOD 06/13/2024 4:54 PM [facility] Blood Venous blood specimen / Unknown Venipuncture / Unknown 06/13/2024 3:08 PM EST 06/13/2024 4:11 PM EST Leif STANTON LAB BLOOD ORDERABLES Final R esult [facility] [address] [place] [address], documented in this encounter Visit Diagnoses Diagnosis Generalized abdominal pain- Primary Abdominal pain, generalized Rectal bleeding Hemorrhage of rectum and anus Nausea Nausea alone Iron deficiency Disorders of iron metabolism Elevated alkaline phosphatase level Change in bowel habits Other symptoms involving digestive system Nausea Nausea alone Generalized abdominal pain Abdominal pain, generalized Change in bowel habits Other symptoms involving digestive system documented in this encounter Care Teams Laundry Room Attendant Relationship Specialty Start Date End Date Bernie Aquino NP [address] [facility] [address] PCP - General Family Medicine 10/05/21 documented as of this encounter
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
--- OUTSIDE RECORDS SUMMARY | 2024-07-02 09:44 | XMS_ITS | Encounter Summary ---
Author Organization [facility] Address [address] [place] [address] Care Team Providers Care Planer Offbearer Name Role Phone Bernie Aquino SUPERVISOR VOLUNTEER SERVICES Primary Care Provider + [phone] Reason for Referral * Hospital - Outpatient (Routine) - Canceled Specialty Diagnoses / Procedures Referred By Contac t Referred To Contact Diagnoses Anemia Elevated fecal calprotectin Procedures COLONOSCOPY Anesthesia - MAC; [facility] ENDOSCOPY Manda Seals MD [address] [address] Phone: tel: fax: [facility] Referral ID Status Reason Start Date Expiration Date V isits Requested Visits Authorized [id number] Canceled 06/19/2024 06/19/2025 1 1 Reason for Visit * Hospital - Outpatient (Routine) - Canceled Specialty Diagnoses / Procedures Referred By Contac t Referred To Contact Diagnoses Anemia Elevated fecal calprotectin Procedures COLONOSCOPY Anesthesia - MAC; [facility] ENDOSCOPY Manda Seals MD [address] [address] Phone: tel: fax: [facility] Referral ID Status Reason Start Date Expiration Date V isits Requested Visits Authorized [id number] Canceled 06/19/2024 06/19/2025 1 1 Encounter Details Date Type Department Care Team (Late st Contact Info) Description 06/27/2024 6:49 AM EST - 06/27/2024 11:59 PM EST Hospital Encounter [facility] Endoscopy [address] [place] [phone] Manda Seals MD [address] [address] Rekha Gamble CRNA [address] [facility] [place] [address] Silvia Brooks MD [address] [place] [address] Anemia; Elevated fecal calprotectin Discharge Disposition: Home or Self Care Social [...] Sign Reading Time Taken Comments Blood Pressure 98/72 06/27/2024 8:28 AM EST Pulse 87 06/27/2024 8:28 AM EST Temperature 36.6 ??C (97.9 ??F) 06/27/2024 8:08 AM ES T Respiratory Rate 18 06/27/2024 8:28 AM EST Oxygen Saturation 95% 06/27/2024 8:28 AM EST Inhaled Oxygen Concentration - - Weight 73.5 kg (162 lb) 06/27/2024 7:18 AM EST Height 162.6 cm (5' 4 ) 06/27/2024 7:18 AM EST Body Mass Index 27.81 06/27/2024 7:18 AM EST documented in this encounter Functional Status * Are you deaf or do you have serious difficulty hearing? Answer Date of Assessment Author No 05/20/2024 3:30 AM LANCE Littlejohn, Denae Mcdaniel RN * Are you blind or [...] documented in this encounter Discharge Instructions * Attachments The following attachments cannot be sent through Care Everywhere. * Hemorrhoids (Ukrainian) documented in this encounter Medications at Time of Discharge aMILoride (MIDAMOR) 5 mg tablet Take 2 tablets (10 mg total) by mouth 1 (one) time each day. atorvastatin (LIPITOR) 10 mg tablet Take 4 tablets (40 mg total) by mouth at bedtime. 1 benztropine (COGENTIN) 1 mg tablet Take 1 tablet (1 mg total) by mouth. butalbital-acetamin ophen-caffeine (FIORICET, ESGIC) 50-325-40 mg per tablet Take [...] documented in this encounter Progress Notes * Eloisa Parada RN - 06/27/2024 8:15 AM EST Problem: Cognitive:Periop Procedure - Minor Goal: Knowledge of disease or condition will improve Outcome: Adequate for Discharge Problem: Sensory:Periop Procedure - Minor Goal: Demonstrates/reports adequate pain control Outcome: Adequate for Discharge PT VERBALIZED UNDERSTAND OF DC INSTRUCTIONS, FALL RISK REVIEWED, CALL ARIZMENDI AT BEDSIDE. * Flory Correa RN - 06/27/2024 7:51 AM EST Abdominal pressure applied. * Manda Seals MD - 06/27/2024 7:30 AM EST All colon biopsies were normal. No colitis of any type noted. I understand that your bowels have been irregular after the colonoscopy- that is not uncommon. It is ok to take pepto bismol or gaviscon if needed. * Angelica Pete RN - 06/27/2024 7:06 AM EST Problem: Cognitive:Periop Procedure - Minor Goal: Knowledge of disease or condition will improve Outcome: Progressing Problem: Sensory:Periop Procedure - Minor Goal: Demonstrates/reports adequate pain control Outcome: Progressing PT VERBALIZED UNDERSTAND OF DC INSTRUCTIONS, FALL RISK REVIEWED, CALL ARIZMENDI AT BEDSIDE. documented in this encounter H&P Notes * Manda Seals MD - 06/27/2024 7:30 AM EST Pre-Op Diagnosis: Diarrhea Proposed Procedure: Colonoscopy Performing Surgeon/MD/Endoscopist: Manda Seals MD Medical/History: Past Medical History: Diagnosis Date Asthma Bipolar [...] TISSUE HEAD OR NECK (THYROID,PARATHYROID,PAROTID) subtotal parathyroidectomy Medications/Allergies: Prior to Admission medications Medication Sig Start Date End Date Taking? Authorizing Provider aMILoride (MIDAMOR) 5 mg tablet Take 2 tablets (10 mg total) by mouth 1 (one) time each day. Yes Historical Provider, atorvastatin (LIPITOR) 10 mg tablet Take 4 tablets (40 mg total) by mouth at bedtime. 02/10/21 Yes Historical Provider, colchicine (COLCRYS) 0.6 mg tablet Take 3 tablets (1.8 mg total) by mouth 1 (one) time each day. Yes Historical Provider, Emgality Pen 120 mg/mL injection pen INJECT 1ML UNDER THE SKIN EVERY 28 DAYS Yes Historical Provider, ferrous gluconate (FERGON) 324 mg (38 mg iron) tablet Take 1 tablet (324 mg total) by mouth 1 (one)time each day. 06/09/24 09/07/24 Yes Manda Seals MD gabapentin (NEURONTIN) 300 mg capsule Take 2 capsules (600 mg total) by mouth 3 (three) times a day. 04/25/24 Yes Historical Provider, hepatitis B immune globulin 220 unit/mL solution 20 GRAMS EVERY 3 WEEKS, 0 Refills, Maintenance, 05/11/21 10:18:00 EST, Partial fill upon patient request if the prescription is for a schedule II opioid drug. 05/11/21 Yes Historical Provider, lamoTRIgine (LaMICtal XR) 200 mg tablet extended release 24hr 24 hr tablet Take 1 tablet (200 mg total) by mouth. at bedtime Yes Historical Provider, levoFLOXacin (LEVAQUIN) 500 mg tablet Take 1 tablet (500 mg total) by mouth 1 (one) time each day. for 7 days 08/22/23 Yes Historical Provider, levothyroxine (SYNTHROID, LEVOTHROID) 50 mcg tablet TAKE ONE TABLET BY MOUTH EVERY DAY SUNDAY TO SUNDAY AND 1.5 TABLETS ON SUNDAY Yes Historical Provider, magnesium oxide (MAG-OX) 400 mg magnesium tablet Take 1 tablet (400 mg total) by mouth 1 (one) timeeach day. Yes Historical Provider, melatonin 10 mg tablet Take 1 tablet (10 mg total) by mouth. with dinner Yes Historical Provider, metFORMIN (GLUMETZA) 1,000 mg 24 hr tablet Take 1 tablet (1,000 mg total) by mouth 1 (one) time each day with dinner. Do not crush, chew, or split. Yes Historical Provider, montelukast (SINGULAIR) 10 mg tablet Take 1 tablet (10 mg total) by mouth at bedtime. Yes Historical Provider, norethindrone (CITLALY,KATHY,STACIA,MICRONOR) 0.35 mg tablet Take 1 tablet (0.35 mg total) by mouth1 (one) time each day. Yes Historical Provider, omeprazole (PriLOSEC) [address] capsule Take 1 capsule (40 mg total) by mouth 2 (two) times a day. Yes Historical Provider, OXcarbazepine (TRILEPTAL) 300 mg tablet Take 3 tablets (900 mg total) by mouth 2 (two) times a day.Yes Historical Provider, topiramate (TOPAMAX) 50 mg tablet Take 1 tablet (50 mg total) by mouth 2 (two) times a day. Yes Historical Provider, venlafaxine (EFFEXOR) 75 mg tablet Take 1 tablet (75 mg total) by mouth 2 (two) times a day. Yes Historical Provider, Xolair 300 mg/2 mL syringe 05/29/24 Yes Historical Provider, benztropine (COGENTIN) 1 mg tablet Take 1 tablet (1 mg total) by mouth. Patient not taking: Reported on 06/13/2024 Historical Provider, wipjgscfvq-bxojwqujqydgn-weskyddg (FIORICET, ESGIC) 50-325-40 mg per tablet Take 1 tablet by mouth every 4 (four) hours if needed for headaches. Historical Provider, cetirizine (ZyrTEC) 10 mg tablet Take 1 tablet (10 mg total) by mouth 1 (one) time each day. 07/13/21Historical Provider, Combivent Respimat 20-100 mcg/actuation inhaler INHALE 1 PUFF UP TO FOUR TIMES A DAY IF NEEDED Historical Provider, cyclobenzaprine (FLEXERIL) 10 mg tablet Take 1 tablet (10 mg total) by mouth 2 (two) times a day ifneeded for muscle spasms for up to 10 days. 05/04/24 05/14/24 ROMY Hi docusate sodium (COLACE) 100 mg capsule take one capsule by mouth two times a day as needed for constipation Historical Provider, EPINEPHrine (EPIPEN) 0.3 mg/0.3 mL injection Inject 0.3 mL (0.3 mg total) into the thigh. 01/14/13 Historical Provider, famotidine (PEPCID) 20 mg tablet Take 1 tablet (20 mg total) by mouth. Patient not taking: Reported on 06/13/2024 03/25/22 Historical Provider, cagbrhcaeak-lwgisginqyql-phrmuwgjng (Trelegy Ellipta) 100-62.5-25 mcg inhaler Inhale 1 puff (100 mcg total) by mouth. 09/02/21 Historical Provider, HYDROmorphone (DILAUDID) 2 mg tablet 300 tablets (600 mg total) 3 (three) times a day. 01/25/24 Historical Provider, hydrOXYzine HCL (ATARAX) 25 mg tablet Take 1 tablet (25 mg total) by mouth 2 (two) times a day. 04/21/24 Historical Provider, hydrOXYzine pamoate (VISTARIL) 50 mg capsule Take 1 capsule (50 mg total) by mouth. Patient not taking: Reported on 06/13/2024 01/11/16 Historical Provider, insulin aspart (NovoLOG Flexpen U-100 Insulin) 100 unit/mL (3 mL) injection pen 06/12/18 Historical Provider, lamoTRIgine (LaMICtal) 25 mg tablet Take 2 tablets (50 mg total) by mouth 1 (one) time each day in the morning. 05/16/24 Historical Provider, lidocaine (LMX) 4 % cream Apply topically 4 (four) times a day if needed for mild pain. 05/10/24 05/10/25 ROMY Gil loperamide (IMODIUM) 2 mg capsule Take 1 capsule (2 mg total) by mouth. 01/03/24 Historical Provider, ondansetron (ZOFRAN) 4 mg tablet Take 1 tablet (4 mg total) by mouth every 8 (eight) hours if needed for nausea or vomiting. Patient not taking: Reported on 06/13/2024 Historical Provider, ondansetron ODT (ZOFRAN-ODT) 4 mg disintegrating tablet Let 1 tablet dissolve under the tongue three times daily as needed for nausea or vomiting. Patient taking differently: 2 tablets (8 mg total). Let 1 tablet dissolve under the tongue three times daily as needed for nausea or vomiting. 05/20/24 Ayush Reyes MD oxyCODONE (ROXICODONE) 5 mg immediate release tablet Take 1 tablet (5 mg total) by mouth every 6 (six) hours if needed for severe pain. Max Daily Amount: 20 mg Patient not taking: Reported on 06/13/2024 04/10/24 ROMY Oliver predniSONE (DELTASONE) 20 mg tablet See Instructions, 1-2 tablet By Mouth Daily, PRN, 0 Refills, Maintenance, 04/25/24 10:42:00 AM EST, Partial fill upon patient request if the prescription is for a schedule II opioid drug. 08/28/21 Historical Provider, rizatriptan (MAXALT) 10 mg tablet TAKE ONE TABLET BY MOUTH NEEDED FOR MIGRAINE MAY REPEAT IN 2 HOURS IF UNRESOLVED, DO NOT EXCEED 30MG IN 24 HOURS Historical Provider, MD Rossulicrafael 1.5 mg/0.5 mL pen injector injection Inject 0.5 mL (1.5 mg total) under the skin. 04/25/24 Historical Provider, Patient Age:48 y.o. Vitals: Vitals: 06/27/24 0718 BP: 118/84 Pulse: 101 Resp: 16 Temp: 36.6 ??C (97.9 ??F) SpO2: 97% Physical Exam: Mental Status: Clear HEENT: WNL Heart: WNL Lungs: WNL Abdomen: WNL Extremities: WNL Neuro: WNL Diagnosis/Plan: Colonoscopy documented in this encounter Procedure Notes * Eloisa Parada RN - 06/27/2024 8:22 AM EST PT TOLERATING A DRINK AND A SNACK. DICUSSED RESULTS WITH PT. FALL RISK REVIEWED. ALL PERSONAL EFFECTS RETURNED TO PT. documented in this encounter Plan of Treatment Upcoming Encounters Date Type Department Care Team (Late st Contact Info) Description 07/22/2024 9:00 AM EDT Appointment [facility] Infusion Center [address] [facility] 2nd [place] [phone] 09/10/2024 9:10 AM EDT Office Visit Gastroenterology - 299 [facility] 299 [facility] [address] [place] [phone] Leif Burciaga PA [address] [address] Pending Results Name Type Priority Associated Diagnoses Date /Time POC , urine NO CHARGE screening manually resulted Point of Care Testing Routine 06/27/2024 7:26 AM EST Scheduled Orders Name Type Priority Associated Diagnoses Orde r Schedule POC , urine NO CHARGE screening manually resulted Point of Care Testing Routine Once for 1 Occurrences starting 06/27/2024 until 06/27/2024 documented as of this encounter Procedures Procedure Name Priority Date/Time Associated Diagnosis Comments COLONOSCOPY Routine 06/27/2024 8:07 AM EST Anemia Elevated fecal calprotectin TISSUE EXAM Routine 06/27/2024 7:57 AM EST Anemia Elevated fecal calprotectin documented in this encounter Results * COLONOSCOPY Anesthesia - MAC; [facility] ENDOSCOPY (06/27/2024 8:07 AM EST) Anatomical Region Laterality Modality Endoscopy 06/27/2024 7:44 AM EST Impressions 06/27/2024 8:09 AM EST - The examined portion of the ileum was normal. ? - Normal mucosa in the entire examined colon. Biopsied. ? - Internal hemorrhoids. Recommendation: ?- Await pathology results. ? - Repeat colonoscopy in 10 years for screening ? purposes. Narrative 06/27/2024 8:09 AM EST [facility] GI Patient Name: Meredith Garcia Procedure Date: [...] Procedure Code(s): ? --- Professional --- ? 72026, Colonoscopy, flexible; with biopsy, single or ? multiple Diagnosis Code(s): ? --- Professional --- ? R19.7, Diarrhea, unspecified CPT copyright 2020 [employer]. All rights reserved. The codes documented in this report are preliminary and upon surgical nurse review may be revised to meet current compliance requirements. Manda Seals MD 06/27/2024 8:09:30 AM This report has been signed electronically.Manda Seals MD Number of Addenda: 0 Note Initiated On: 06/27/2024 7:44 AM Scope In: Scope Out: ? Endoscopy Department at [facility] - [address] [place] [address], ? [place] [id number] Procedure Note Manda Seals MD - 06/27/2024 [facility] GI Patient Name: Meredith Garcia Procedure Date: [...] not prolapse). Procedure Code(s): --- Professional --- 88228, Colonoscopy, flexible; with biopsy, singleor multiple Diagnosis Code(s): --- Professional --- R19.7, Diarrhea, unspecified CPT copyright 2020 [employer]. All rights reserved. The codes documented in this report are preliminary and upon surgical nurse reviewmay be revised to meet current compliance requirements. Manda Seals MD 06/27/2024 8:09:30 AM This report has been signed electronically.Manda Seals MD Number of Addenda: 0 Note Initiated On: 06/27/2024 7:44 AM Scope In: Scope Out: Endoscopy Department at [facility] - [address] [place] [phone] IMPRESSION: - The examined portion of the ileum was normal. - Normal mucosa in the entire examined colon.Biopsied. - Internal hemorrhoids. Recommendation: - Await pathology results. - Repeat colonoscopy in 10 years for screening purposes. Manda Seals MD GI~PROCEDURE ORDERABLES Final Result * Tissue exam (06/27/2024 7:57 AM EST) Final Diagnosis Colon, random biopsies: Benign colonic mucosa with no specific pathologic change. No colitis identified. 06/30/2024 11:31 AM EST [facility] Gross Description A. Colon, random [...] pieces, multiple levels. dvb/DG 06/30/2024 11:31 AM [facility] Disclaimer Unless otherwise specified, all tissue is 10% NB formalin fixed and paraffin embedded. 06/30/2024 11:31 AM [facility] Tissue (Colon) 06/27/2024 7: 57 AM EST 06/27/2024 9:36 AM EST Manda Seals MD LAB PATHOLOGY ORDERABLES Final Result [facility] [address] [place] [address], documented in this encounter Visit Diagnoses Diagnosis Anemia Unspecified anemia Elevated fecal calprotectin documented in this encounter Historical Medications * This list may reflect changes made after this encounter. butalbital-aceta minophen-caffein e (FIORICET, ESGIC) 50-325-40 mg per tablet Take 1 tablet by mouth every 4 (four) hours if needed for headaches. levoFLOXacin (LEVAQUIN) 500 mg tablet Take 1 tablet (500 mg total) by mouth 1 (one) time each day. for 7 days 08/22/2023 hepatitis B immune globulin 220 unit/mL solution 20 GRAMS EVERY 3 WEEKS, 0 Refills, Maintenance, 05/11/21 10:18:00 EST, Partial fill upon patient request if the prescription is for a schedule II opioid drug. 05/11/2021 added in this encounter Orders Discharge Count Last Ordered Date First Orde red Date DISCHARGE PATIENT 1 06/27/2024 documented in this encounter Care Teams Planer Offbearer Relationship Specialty Start Date End Date Bernie Aquino NP [address] [facility] [place] [address] PCP - General Family Medicine 10/05/21 documented as of this encounter
--- OUTSIDE RECORDS SUMMARY | 2024-07-02 09:44 | XMS_ITS | Encounter Summary ---
Author Organization [employer] Address [address] [place] [address] Care Team Providers Care Technical Support Agent Name Role Phone Bernie Aquino HARM REDUCTION WORKER Primary Care Provider [phone] Encounter Details Date Type Department Care Team (Late st Contact Info) Description 05/30/2024 Telephone Gastroenterology - [address] [place] [address] Tanika Covington MA Social History [...] Progress Notes * Tanika Covington MA - 05/30/2024 9:40 AM EST Proc wants to rebook cancelled colon proc.. documented in this encounter Plan of Treatment Upcoming Encounters Date Type Department Care Team (Late st Contact Info) Description 07/22/2024 9:00 AM EDT Appointment [facility] Center [address] [facility] 2nd [place] [address] 09/10/2024 9:10 AM EDT Office Visit Gastroenterology - 299 [facility] 299 [facility] [address] [place] [phone] Leif Burciaga PA 299 [facility] [place] [address] [place] [phone] documented as of this encounter Visit Diagnoses Not on filedocumented in this encounter Care Teams Technical Support Agent Relationship Specialty Start Date End Date Bernie Aquino NP [address] [facility] [place] [address] PCP - General Family Medicine 10/05/21 documented as of this encounter
--- OUTSIDE RECORDS SUMMARY | 2024-07-02 09:44 | XMS_ITS | Continuity of Care Document ---
Author Organization [facility] Address [address] [place] [address]- Support Name Relationship Address Phone HEMANT LEE [...] Unknown U navailable Care Team Providers Care Oil Pit Attendant Name Role Phone Miles OTOOLE, Bernie Hardy Primary Care Physician [facility]counter [facility] Date(s): 05/29/24 - 06/28/24 [facility] [address] [place] [address]- Encounter Type: Triage Allergies, Adverse Reactions, Alerts [...] (oldterm) 8 03/14/09 Given 1Result Comment: [09/19/2017] [id number] 2Result Comment: [02/13/2018] [id number] 3Result Comment: [02/08/2017] [facility] [id number] 4Result Comment: [01/24/2013] ORDERRED BY [...] Maintenance, 07/09/23 2:12:00 PM EST, [facility], 163, cm, 06/06/23 7:29:00 EST, [...] EDT, Route to Pharmacy Electronically, [facility], Partial fill upon patient [...] EST, Route to Pharmacy Electronically, [facility], 163, cm, 03/07/23 8:42:00 EDT, [...] EDT, Route to Pharmacy Electronically, [facility], 163, cm, 11/22/20 12:47:00 [...] 7:45:00 AM EST, Route to Pharmacy Electronically, [facility], 163, cm, 03/07/24 8:07:00 EDT, Height Start Date: 04/08/24 Status: Ordered Quantity: 90.0 Unit: tablet Repeat number: 2 omeprazole 40 mg oral enteric coated capsule 1 capsule = 40 mg, By Mouth, 2 times a day, # 60 capsule, 6 Refills, Maintenance, 10/26/22 11:06:00 AM EDT, [facility], Partial fill upon patient [...] 04/25/24 Status: Ordered Repeat number: 1 Pen [place], 31 G x 5 mm BD Ultra [...] Member Role: Lifetime Consulting Physician Address: [address] [place] [address] [address] [place] [address]- [place] Telecom: Name: Lore Clinton RN Position: [facility] AMB Nurse Member Role: Primary Care Nurse Name: Chris Rosenbaum MD Position: [facility] BREAKER UP MD Member Role: Lifetime BREAKER UP Physician Address: [address] [place] [address] [place] [address]- [place] Tele[employer]: Name: Bernie Aquino NP Position: [facility] PCO Associate Professional Member Role: PCP Address: [address] [place] [address]- [place] Telecom: Name: Gregg Hardy MD Position: [facility] Pulmonary MD Member Role: Lifetime Consulting Physician Address: [address] [place] [address]- [place] Telecom: Care Team Related Persons Name: ONDINA [...]
== END 2024-07-02 10:05 | disposition home or self-care (01) ==
PROVIDERS: PCP Nurse Practitioner Family; Visit Provider Internal Medicine Hypertension Specialist
DX: N25.1 Nephrogenic diabetes insipidus (principal); N18.9 Chronic kidney disease, unspecified
CPT/HCPCS: 99214

== ENCOUNTER → 2024-07-02 09:25 | Outpatient (BNVA) | payer BC, MEDICARE, MEDICAID, SELFPAY | PROVIDERS: PCP Nurse Practitioner Family; Visit Provider Internal Medicine Hypertension Specialist ==

== ENCOUNTER 2024-07-16 15:34 | Inpatient (IN) | payer MEDICARE, MEDICAID, SELFPAY ==
--- NOTE | ~2024-07-16 | XR_ITS ---
EXAMINATION: XR PARANASAL SINUSES 3 VIEWS HISTORY: pain, ?infection COMPARISON: There are no prior studies for comparison. FINDINGS: Four views of the paranasal sinuses are submitted. The bilateral frontal, maxillary, ethmoid, and sphenoid sinuses are well-aerated and clear. No air/fluid levels are identified. XR/XR sinus min 3V IMPRESSION: Unremarkable examination of the paranasal sinuses. Electronically signed by: Griffin Patel MD 07/21/2024 08:14 AM EDT
--- NOTE | ~2024-07-16 | CT_ITS ---
CLINICAL HISTORY: report of concussion [address] of the head without intravenous contrast Comparison: None Findings: The ventricles and sulci are prominent, consistent with generalized cerebral parenchymal volume loss. The ventricles are symmetric and the basilar cisterns are intact. Mild periventricular, deep and subcortical white matter hypodensities are nonspecific but statistically reflect the sequela of chronic small vessel ischemic change. No intracranial hemorrhage, extra-axial fluid collection, midline shift or mass-effect is evident. No evidence of acute large vessel or territorial ischemia. Brainstem and cerebellum unremarkable. Vascular calcifications indicate intracranial atherosclerosis. The imaged portion of the paranasal sinuses are clear. No mastoid effusions are demonstrated. The orbital contents are unremarkable. Calvarium is intact. Impression: 1. No CT evidence of acute intracranial abnormality. 2. Cerebral volume loss, intracranial atherosclerotic disease and mild sequela of chronic small vessel ischemic disease. This document has been electronically signed by: Azeem Bustos MD on 07/18/2024 18:09:45
[2024-07-16 15:40] VITALS: BP 135/95; PULSE 107; O2SAT 96
--- NOTE | 2024-07-16 15:42 | MHC.CARE ---
Pt assessed in the community by CLAU and she is an inpatient bedsearch. SI with plan to ingest medications.
[2024-07-16 16:05] VITALS: BP 135/91; PULSE 108; RESP 16; TEMP 36.6; O2SAT 95; BMI 29.3
[2024-07-16 16:24] LABS: Appearance Urine Clear; Color Urine Yellow; Glucose Urine UA Negative (Negative); Leukocyte Esterase Urine Moderate (2+) (Negative); Nitrite Urine Negative (Negative); Specific Gravity - Urine 1.015 (1.005-1.025); UMIC TRIGGER UA YES; Urine Blood Small (1+) (Negative); Urine Ketones Negative (Negative); Urine Protein 30 (1+) mg/dL (Neg-Trace)
[2024-07-16 16:27] LABS: UPreg QC Valid YES; Urine Pregnancy NEGATIVE (NEGATIVE)
[2024-07-16 16:35] LABS: Amphetamine Screen Urine Not Detected (Not Detect); Barbiturates, Urine Not Detected (Not Detect); Benzodiazepines Screen Urine Not Detected (Not Detect); Buprenorphine Scr Not Detected (Not Detect); Cannabinoid Screen Urine Not Detected (Not Detect); Cocaine Screen Urine Not Detected (Not Detect); Fentanyl, urine Not Detected (Not Detect); Methadone Screen, Urine Not Detected (Not Detect); Opiate Screen Urine Not Detected (Not Detect); Oxycodone Screen Urine Not Detected (Not Detect); Phencyclidine Screen Urine Not Detected (Not Detect)
[2024-07-16 16:45] LABS: MANUAL DIFF FLAG NO
[2024-07-16 16:51] LABS: Bacteria Urine None Seen (None Seen)
[2024-07-16 16:51] LABS: Basophils Absolute Auto 0.1 X10*3/uL (0.0-0.2); Basophils Percent Auto 1.1 % (0-2); Eosinophils Absolute Auto 0.1 X10*3/uL (0.0-0.4); Eosinophils Percent Auto 1.9 % (0-4); Hematocrit 42.5 % (37.0-47.0); Hemoglobin 12.5 g/dl (12.0-16.0); Imm Gran Abs Auto 0.02 X10*3/uL (0.00-0.03); Imm Gran Pct Auto 0.3 % (0.0-0.4); Lymphocytes Percent Auto 13.8 % (20-40); Mean Corpuscular HGB Conc 29.4 g/dl (31.0-35.0); Mean Corpuscular Hemoglobin 19.9 pg (27.0-33.0); Mean Corpuscular Volume 67.6 fL (80.0-98.0); Mean Platelet Volume 9.6 fL (9.4-12.3); Monocytes Absolute Auto 0.3 X10*3/uL (0.1-1.2); Monocytes Percent Auto 4.6 % (2-11); Neutrophils Absolute Auto 5.8 x10*3/uL (2.0-8.3); Neutrophils Percent Auto 78.3 % (45-73); Platelet Count 389 X10*3/uL (160-400); Red Blood Count 6.29 X10*6/uL (4.20-5.50); Red Cell Distribution Width 21.2 % (11.0-16.0); White Blood Count 7.5 X10*3/uL (4.8-10.8)
[2024-07-16 17:16] LABS: Alkaline Phosphatase 147 U/L (39-117)
[2024-07-16 17:17] LABS: Alanine Aminotransferase 39 U/L (0-31); Albumin Level 4.6 g/dL (3.5-5.0); Anion Gap 13 (12-20); Aspartate Amino Transferase 39 U/L (5-31); Bilirubin Total 0.3 mg/dL (0.0-1.0); Blood Urea Nitrogen 11 mg/dL (9-16); Calcium 9.6 mg/dL (8.4-10.2); Carbon Dioxide 17 mmol/L (22-29); Chloride 114 mmol/L (96-108); Creatinine Clr Calc Pharmacy 80.6; Estimated Glomerular Filt Rate > 60; Ethanol < 10 mg/dL; Glucose Random 198 mg/dL (60-115); Potassium 3.4 mmol/L (3.3-5.1); Sodium 141 mmol/L (135-145); Total Protein 8.2 g/dL (6.5-8.0)
--- NOTE | 2024-07-16 17:36 | ED.GENADULT ---
HPI - General Adult General Chief complaint: Psychiatric Symptoms Stated complaint: sect 12, SI w/ plan Time Seen by Provider: 07/16/24 16:11 Source: patient, RN notes reviewed and old records reviewed Mode of arrival: EMS Limitations: no limitations History of Present Illness ED Provider: Lara HPI narrative: 48-year-old female past medical history significant for PTSD, diabetes insipidus, chronic kidney disease, bipolar disorder presents for evaluation of depression with suicidal ideation. Patient reports that she was here due to numerous life stressors including financial difficulties. She reports that her lost his job about a month ago. The patient reports that she is depressed and ?can not take it anymore. ? She reports that she occasionally has thoughts of either ?not taking any of my medications anymore, or it would be easy to take the entire bottle. ? She reports that she is chronically fatigued and she was in an ER yesterday for ?cyst on my ovary. The patient states that she was depressed with some suicidal thoughts. She reports that she is not sure she would actually act on these thoughts Related Data Home Medications ?Medication ?Instructions ?Recorded ?Confirmed montelukast 10 mg tablet 1 tab PO QPM 01/31/22 04/16/24 immune globulin (human) (IgG) 10 30 g IV .COMPLEX 04/23/23 04/16/24 gram intravenous solution levothyroxine 50 mcg tablet 50 mcg PO DAILY 04/23/23 04/16/24 melatonin 10 mg capsule 10 mg PO BEDTIME PRN Insomnia 04/23/23 04/16/24 norethindrone (contraceptive) 0.35 0.35 mg PO DAILY 05/28/23 04/16/24 mg tablet (Incassia) ondansetron HCl 4 mg tablet 4 mg PO Q8H PRN Nausea 05/28/23 04/16/24 oxcarbazepine 600 mg tablet 900 mg PO BID 05/28/23 04/16/24 topiramate 50 mg tablet 50 mg PO BID 05/28/23 04/16/24 atorvastatin 40 mg tablet 40 mg PO BEDTIME 12/11/23 04/16/24 cetirizine 10 mg capsule (Zyrtec) 10 mg PO BID 12/11/23 04/16/24 ferrous gluconate 324 mg (38 mg 324 mg PO DAILY 12/11/23 04/16/24 iron) tablet lamotrigine 200 mg tablet,extended 200 mg PO BEDTIME 12/11/23 04/16/24 release 24 hr metformin 1,000 mg tablet 1,000 mg PO BID 12/11/23 04/16/24 omeprazole 40 mg capsule,delayed 40 mg PO BID 12/11/23 04/16/24 release colchicine 0.6 mg tablet 1.8 mg PO DAILY 01/02/24 04/17/24 omalizumab 300 mg/2 mL 300 mg subcut QMONTH 03/05/24 04/16/24 subcutaneous syringe (Xolair) docusate sodium 100 mg capsule 100 mg PO BID PRN constipation 04/16/24 04/16/24 galcanezumab-gnlm 120 mg/mL 120 mg subcut QMONTH 04/16/24 04/17/24 subcutaneous pen injector (Emgality Pen) ipratropium 20 mcg-albuterol 100 1 puff inhalation QID PRN SOB 04/16/24 04/16/24 mcg/actuation mist for inhalation (Combivent Respimat) loperamide 2 mg capsule 4 mg PO DIRECTED 04/16/24 04/16/24 magnesium oxide 400 mg PO DAILY@1200 04/16/24 04/17/24 rizatriptan 10 mg tablet 10 mg PO Q2-4H PRN Migraine 04/16/24 04/16/24 Headache prednisone 20 mg tablet 20 - 40 mg PO DAILY PRN familial 04/17/24 04/17/24 Mediterranean fever amiloride 5 mg tablet 10 mg PO DAILY 07/02/24 dulaglutide 1.5 mg/0.5 mL mg subcut 07/02/24 subcutaneous pen injector (Trulicity) gabapentin 600 mg tablet 600 mg PO 3XD 07/02/24 Previous Rx's ?Medication ?Instructions ?Recorded Patient Own Medication 1 ea PO BEDTIME ##0 04/21/24 hydroxyzine HCl 25 mg tablet See Rx Instructions .Route 04/21/24 .COMPLEX PRN anxiety or insomnia 30 days #120 tabs lamotrigine 25 mg tablet 50 mg (2 x 25 mg) PO DAILY 30 days 04/21/24 #60 tabs venlafaxine 50 mg tablet 75 mg (1.5 x 50 mg) PO BEDTIME 30 04/21/24 days #45 tabs Allergies Allergy/AdvReac Type Severity Reaction Status Date / Time adhesive [ADHESIVE] Allergy Intermediate BLISTER Verified 07/16/24 16:07 fluticasone [From FLONASE] Allergy Unknown unknown Verified 07/16/24 16:07 meperidine [Demerol] Allergy Unknown vomit Verified 07/16/24 16:07 metoclopramide [From REGLAN] Allergy Unknown DIPLOPIA Verified 07/16/24 16:07 transparent dressing Allergy Unknown rash Verified 07/16/24 16:07 morphine [MORPHINE] AdvReac Severe NAUSEA & Verified 07/16/24 16:07 VOMITING TEGADERM BANDAGE Allergy Intermediate RASH Uncoded 07/16/24 16:07 morphine Allergy Unknown vomit Uncoded 07/16/24 16:07 tape Allergy Unknown rash Uncoded 07/16/24 16:07 From DEMEROL AdvReac Severe NAUSEA & Uncoded 07/16/24 16:07 VOMITING Review of Systems Constitutional: Constitutional: Denies body ache(s), Denies chills and Denies headache(s) Eyes: Eyes: Denies blurry vision ENT: Denies headache(s) Cardiovascular: Cardiovascular: Denies chest pain Gastrointestinal: Gastrointestinal: Denies abdominal pain Neurologic: Denies headache(s) Psychiatric: Psychiatric: Reports anxiety, Reports depression, Reports difficulty concentrating and Reports suicidal ideation [facility] Past Medical History Medical History (Updated 07/16/24 @ 17:41 by Richard Bermudez) Bipolar 1 disorder PTSD (post-traumatic stress disorder) Acute anxiety Depression History of recurrent pneumonia History of Pseudomonas pneumonia Bipolar disorder Menstrual migraine Allergic asthma Dyslipidemia Type 2 diabetes mellitus FMF (familial Mediterranean fever) Primary immunodeficiency disorder Surgical History History of endoscopy (~11/2023) History of ankle surgery History of umbilical hernia repair History of dilation and curettage History of arthroscopy History of oral surgery History of delivery Social History Social History Household Members: Spouse and Children Household Members Other:: , Son Housing: House Do you presently have visiting nurse or other home services: No Alcohol intake: never Patient Tobacco Use Status: Never used Tobacco e-Cigarette/Vaping Use: Never Used Advance Directives: No Advance Directives Information Provided: No service: No Sexual orientation: Straight/Heterosexual Physical Exam ED Vital Signs: Vital Signs - 24 hr 07/16/24 16:05 Temperature 98 F Pulse Rate 108 H Respiratory Rate 16 Blood Pressure 135/91 H Pulse Oximetry 95 Oxygen Delivery Method Room Air BMI result Body Mass Index 29.3 Const General: healthy appearing, comfortable, no acute distress, alert and awake Nutritional Appearance: well nourished Orientation/consciousness: patient oriented x3 HENMT Head: Yes normocephalic and Yes atraumatic Eyes Eyelids: Yes eyelids normal Conjunctivae: conjunctivae normal Sclerae: sclerae normal Corneas: corneas normal Pupils: Equal, round and reactive pupils present EOM: EOMs intact bilaterally Neck Neck: Yes full ROM Resp Effort & Inspection: normal respiratory effort, able to speak in complete sentences and not labored Skin General skin exam: elasticity normal Neuro General: patient oriented x3 Cranial nerves: Yes CN's II-XII intact bilaterally, Yes Equal, round and reactive pupils present and Yes Bilaterally intact EOM present Cognition (Neuro): normal cognition Extrem Other: Moving all extremities well without any obvious deformities Psych Appearance: grossly normal Mental Status: mental status grossly normal Speech and movement: Normal speech and movement present Affect: Sad affect present Attitude: cooperative Thought process: Normal thought process present Thought content: Suicidality present Insight: Fair insight present (Psych) Judgement: Fair judgement present (Psych) Medical Decision Making Medical Decision Making [facility] Narrative: 48-year-old female with past medical history as documented above presents for evaluation of depression with suicidal thoughts. She occasionally has thoughts to ingest her medication in attempt to harm herself. Plan for medical clearance and care team evaluation. Differential Diagnosis Differential Diagnoses: The differential diagnosis associated with the presentation includes Depression Suicidal ideation PTSD Bipolar disorder Lab Data [facility] Lab Attestation statement: I reviewed the patient's lab results. No leukocytosis or anemia. Normal platelet count. No significant electrolyte abnormalities warranting intervention. Patient does have a history of diabetes, glucose is elevated to 198, but no evidence of DKA 07/16/24 16:37 07/16/24 16:37 Labs: Lab Results 07/16/24 07/16/24 Range/Units 16:01 16:37 WBC 7.5 (4.8-10.8) X10*3/uL RBC 6.29 H D (4.20-5.50) X10*6/uL Hgb 12.5 (12.0-16.0) g/dl Hct 42.5 (37.0-47.0) % MCV 67.6 L (80.0-98.0) fL MCH 19.9 L (27.0-33.0) pg MCHC 29.4 L (31.0-35.0) g/dl RDW 21.2 H (11.0-16.0) % Plt Count 389 (160-400) X10*3/uL MPV 9.6 (9.4-12.3) fL Immature Gran % (Auto) 0.3 (0.0-0.4) % Neut % (Auto) 78.3 H (45-73) % Lymph % (Auto) 13.8 L (20-40) % [place] % (Auto) 4.6 (2-11) % Eos % (Auto) 1.9 (0-4) % Baso % (Auto) 1.1 (0-2) % Lymph # (Auto) 1.0 L (1.2-4.9) X10*3/uL [place] # (Auto) 0.3 (0.1-1.2) X10*3/uL Eos # (Auto) 0.1 (0.0-0.4) X10*3/uL Baso # (Auto) 0.1 (0.0-0.2) X10*3/uL Abs Immat Gran (auto) 0.02 (0.00-0.03) X10*3/uL Absolute Neuts (auto) 5.8 (2.0-8.3) x10*3/uL Absolute Nucleated RBC 0.000 (0.0-0.012) X10*3/uL Nucleated RBC % (auto) 0.0 (0.0-0.2) /100WBC Sodium 141 (135-145) mmol/L Potassium 3.4 (3.3-5.1) mmol/L Chloride 114 H (96-108) mmol/L Carbon Dioxide 17 L (22-29) mmol/L Anion Gap 13 (12-20) BUN 11 (9-16) mg/dL Creatinine 0.86 (0.5-1.4) mg/dL Estim Creat Clear Calc 80.6 Estimated GFR > 60 Random Glucose 198 H (60-115) mg/dL Calcium 9.6 (8.4-10.2) mg/dL Total Bilirubin 0.3 (0.0-1.0) mg/dL AST 39 H (5-31) U/L ALT 39 H (0-31) U/L Alkaline Phosphatase 147 H (39-117) U/L Total Protein 8.2 H (6.5-8.0) g/dL Albumin 4.6 (3.5-5.0) g/dL Urine Color Yellow Urine Appearance Clear Urine pH 6.0 (5.0-9.0) Ur Specific [place] 1.015 (1.005-1.025) Urine Protein 30 (1+) H (Neg-Trace) mg/dL Urine Glucose (UA) Negative (Negative) mg/dL Urine Ketones Negative (Negative) mg/dL Urine Blood Small (1+) H (Negative) Urine Nitrite Negative (Negative) Ur Leukocyte Esterase Moderate (2+) H (Negative) Urine RBC 3-5 H (0-2) /HPF Urine WBC 11-20 H (0-5) /HPF Ur Squamous Epith Cells 3-5 (0-2) /HPF Urine Bacteria None Seen (None Seen) Hyaline Casts 3-5 (0-2) /LPF Urine Test NEGATIVE (NEGATIVE) Urine Opiates Screen Not Detected (Not Detect) Ur Buprenorphine Scrn Not Detected (Not Detect) ng/mL Ur Oxycodone Screen Not Detected (Not Detect) ng/mL Urine Methadone Screen Not Detected (Not Detect) ng/mL Urine Fentanyl Screen Not Detected (Not Detect) Ur Barbiturates Screen Not Detected (Not Detect) Ur Phencyclidine Scrn Not Detected (Not Detect) Ur Amphetamines Screen Not Detected (Not Detect) U Benzodiazepines Scrn Not Detected (Not Detect) Urine Cocaine Screen Not Detected (Not Detect) U Marijuana (THC) Screen Not Detected (Not Detect) Ethyl Alcohol < 10 mg/dL Discharge Plan Discharge Clinical Impression: Suicidal ideation Patient Disposition: Still a Patient Prescriptions: No Action montelukast 10 mg tablet 1 tab PO QPM topiramate 50 mg tablet 50 mg PO BID omeprazole 40 mg capsule,delayed release(DR/EC) 40 mg PO BID lamotrigine 200 mg tablet extended release 24hr 200 mg PO BEDTIME colchicine 0.6 mg tablet 1.8 mg PO DAILY loperamide 2 mg capsule 4 mg PO DIRECTED rizatriptan 10 mg Tablet 10 mg PO Q2-4H PRN (Reason: Migraine Headache) Rx Instructions: do not exceed 3 doses per 24 hrs docusate sodium 100 mg capsule 100 mg PO BID PRN (Reason: constipation) Combivent Respimat 20-100 mcg/actuation mist 1 puff INHALATION QID PRN (Reason: SOB) magnesium oxide 400 mg magnesium Tablet 400 mg PO DAILY@1200 Rx Instructions: Take once daily at noon starting on 04/17/24 Emgality Pen 120 mg/mL pen injector 120 mg subcut QMONTH prednisone 20 mg tablet 20 - 40 mg PO DAILY PRN (Reason: familial Mediterranean fever) lamotrigine 25 mg Tablet 50 mg PO DAILY 30 Days Qty: 60 0RF Patient Own Medication 1 ea PO BEDTIME Qty: 0 0RF venlafaxine 50 mg tablet 75 mg PO BEDTIME 30 Days Qty: 45 0RF hydroxyzine HCl 25 mg tablet See Rx Instructions .ROUTE .COMPLEX PRN (Reason: anxiety or insomnia) 30 Days Qty: 120 0RF Rx Instructions: take 1-2 tabs up to 3 times a day as needed for anxiety and insomnia immune globulin (human) (IgG) 10 gram recon soln 30 g IV .COMPLEX Rx Instructions: 30 grams intravenously; melatonin 10 mg capsule 10 mg PO BEDTIME PRN (Reason: Insomnia) levothyroxine 50 mcg tablet 50 mcg PO DAILY Zyrtec 10 mg capsule 10 mg PO BID ondansetron HCl 4 mg tablet 4 mg PO Q8H PRN (Reason: Nausea) norethindrone (contraceptive) [Incassia] 0.35 mg tablet 0.35 mg PO DAILY oxcarbazepine 600 mg tablet 900 mg PO BID atorvastatin 40 mg tablet 40 mg PO BEDTIME ferrous gluconate 324 mg (38 mg iron) tablet 324 mg PO DAILY metformin 1,000 mg tablet 1,000 mg PO BID amiloride 5 mg tablet 10 mg PO DAILY gabapentin 600 mg tablet 600 mg PO 3XD Trulicity 1.5 mg/0.5 mL pen injector subcut Xolair 300 mg/2 mL syringe 300 mg subcut QMONTH Print Language: Ivorian
--- NOTE | 2024-07-16 17:51 | ECG_ITS ---
Test Reason : chest pain Blood Pressure : */* mmHG Vent. Rate : 97 BPM Atrial Rate : 97 BPM P-R Int : 170 ms QRS Dur : 86 ms QT Int : 390 ms P-R-T Axes : 28 25 55 degrees QTcB Int : 495 ms Normal sinus rhythm Possible Left atrial enlargement Prolonged QT Abnormal ECG When compared with ECG of 18-Apr-2024 08:27, QT has lengthened Referred By: Richard Bermudez Electronically Signed By: SHE KLINE MD
[2024-07-16] MEDS: hydrOXYzine HCL 25 MG TABLET PO (18:02)
--- OUTSIDE RECORDS SUMMARY | 2024-07-16 19:17 | XMS_ITS | Clinical Summary ---
Author Organization [facility] Address [address] [place] [address] Care Team Providers Care Patient Registration Rep Name Role Phone Bernie Aquino CONCRETE FLOOR INSTALLER Primary Care Provider [phone] Allergies Active Allergy Reactions Criticality Noted Date [...] age to complete this topic Care Teams Patient Registration Rep Relationship Specialty Start Date End Date Bernie Aquino, CONCRETE FLOOR INSTALLER [address] [facility] [place] [address] PCP - General Family Medicine 10/05/21
--- OUTSIDE RECORDS SUMMARY | 2024-07-16 19:17 | XMS_ITS | Continuity of Care Document ---
Author Organization [facility] Address [address] [place] [address]- Support Name Relationship Address Phone HEMANT LEE [...] Unknown U navailable Care Team Providers Care Sfdc Solution Architect Name Role Phone Miles OTOOLE, Bernie Hardy Primary Care Physician [facility] 06[facility]24 - 07/13/24 [facility] [address] [place] [address]- Encounter Type: Triage Allergies, Adverse Reactions, Alerts [...] (oldterm) 8 03/14/09 Given 1Result Comment: [09/19/2017] [id number] 2Result Comment: [02/13/2018] [id number] 3Result Comment: [02/08/2017] [facility] [id number] 4Result Comment: [01/24/2013] ORDERRED BY [...] 1 atorvastatin 40 mg oral tablet 1 tablet, By Mouth, Daily, DISCONTINUE ATORVASTSTIN 20MG, # 90 tablet, 1 Refills, Maintenance, 07/08/24 3:12:00 PM EST, [facility], 163, cm, 06/26/24 9:36:00 EST, Height Start Date: 07/08/24 Status: Ordered Quantity: 90.0 Unit: tablet Repeat number: 1 Jade = 0.35 mg, By Mouth, Daily, [...] 9:37:00 AM EDT, Route to Pharmacy Electronically, [facility], Partial fill upon patient [...] 11:57:00 AM EST, Route to Pharmacy Electronically, [facility], 163, cm, 03/07/23 8:42:00 EDT, Height, 76.2, kg, 01/06/22 8:38:00 EDT, Dry Weight Start Date: 05/21/23 Status: Ordered Quantity: 60.0 Unit: Unknown Repeat number: 1 Combivent Respimat 20 mcg-100 mcg/inh inhalation aerosol 1 puffs, Inhalation, 4 times a day, # 1 each, 0 Refills, Maintenance, 10/15/23 8:40:00 AM EDT, [facility], Partial fill upon patient request [...] EDT, Route to Pharmacy Electronically, [facility], 163, cm, 11/22/20 12:47:00 EDT, [...] EST, Route to Pharmacy Electronically, [facility], 163, cm, 03/07/24 8:07:00 EDT, [...] 04/25/24 Status: Ordered Repeat number: 1 Pen [place], 31 G x 5 mm BD Ultra [...] Member Role: Lifetime Consulting Physician Address: [address] [place] [address] [address] [place] [address]- [place] Tele[employer]: Name: Lore Clinton RN Position: [facility] Nurse Member Role: Primary Care Nurse Name: Chris Rosenbaum MD Position: [facility] BOTTLE WASHER MACHINE MD Member Role: Lifetime BOTTLE WASHER MACHINE Physician Address: [address] [place], [place] [address] [place] [address]- [place] [employer]: Name: Miles OTOOLE, Bernie Hardy Position: [facility] PCO Associate Professional Member Role: PCP Address: [address] [place] [address]- [place] Tele[employer]: Name: Gregg Hardy MD Position: [facility] Pulmonary MD Member Role: Lifetime Consulting Physician Address: [address] [place] [address]- [place] Tele[employer]: Care Team Related Persons Name: [...]
--- OUTSIDE RECORDS SUMMARY | 2024-07-16 19:17 | XMS_ITS | Data Portability ---
Author Organization [place] - [facility], Allergy Address [address] [address] Assessment Encounter Date Assessment Date Assessment LastModified [...] [facility], [address], [address], [place], [address], 12:41:45 Procedures None recorded . Surgeries None recorded . Imaging CT, sinuses, w/o contrast 2023 024 becca Ents [facility], [address] [place] [address], [address], 10:39:49 Medication Orders budesoni de 0.5 mg/2 mL suspensi on for nebuliza tion 2023 024 [id number], [address] [facility], [place], [address], 10:37:41 Patient TargetsNo targets recorded. Patient InstructionsNo instructions recorded. Reason for Referral Physical Therapist Referral for Pain of left temporomandibular joint Referring Physician: Juanita Vo, Otolaryngology, Encounter Date: 05/23/2024 Results Created Date Observation Date Name Description Value Unit Range Abnormal Flag Note LastModifiedBy Organization Detail LastModifiedTime 10/01/19 CT, sinus es, w/o contr ast No observ ation record ed. evelyn Ents Of [address], [address], 10/01/2023 10:36:08 10/17/19 24 10/01/2023 CT, sinus es, w/o contr ast No observ ation record ed. [facility] Of [address], [address], 10/17/2023 12:45:07 01/02/20 24 05/28/2019 imagi ng/di [...] Organization Details Recorded Time Nasal congestio n 26008755 Active 2019 Nasal congestio n; Note: Date Diagnosed : 05/26/2019 1:39 PM (R09.81) Not Available [facility] 4 02:47:40 Immunodef iciency disorder 530513498 Active 2019 Immunodef iciency, unspecifi ed; Note: Changed from D84 to D84.9 ( 11:21 AM) , Date Diagnosed : 05/26/2019 1:39 PM (D84) Not Available [facility] 4 02:47:43 Sensorine ural hearing loss 91498035 Active 2020 Sensorine ural hearing loss, unilatera l, left ear, with unrestric dariana hearing on the contralat eral side; Note: Date Diagnosed : 01/20/2021 1:26 PM (H90.42) Not Available [facility] 4 02:47:40 Chronic sinusitis 10138867 Active 2020 Sinusitis (chronic) NOS; Note: Date Diagnosed : 1 2:03 PM (J32.9) Not Available [facility] 4 02:47:42 Posterior rhinorrhe a 21093308 Active 2019 Postnasal drip; Note: Date Diagnosed : 05/26/2019 2:03 PM (R09.82) Not Available [facility] 4 02:47:46 Abnormal auditory perceptio n 07798009 Active 2021 Other abnormal auditory perceptio ns, left ear; Note: Date Diagnosed : 10/12/2021 11:06 AM (H93.292) Not Available [facility] 4 02:47:41 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; Note: Date Diagnosed : 05/26/2019 2:51 PM (D80.1) Not Available [facility] 4 02:47:43 Headache 87705343 Active 2019 Headache; Note: Date Diagnosed : 05/26/2019 1:39 PM (R51) Headach e, unspecifi ed; Note: Changed from R51 to R51.9 (04/27/20 21 3:39 PM) , Date Diagnosed : 05/26/2019 1:39 PM (R51) Not Available [facility] 4 02:47:47 Chronic cough 57129027 Active 2023 LIYDA MINOR MD [address] [place] [address], [place], [address] , [facility] 4 10:16:49 Perennial allergic rhinitis 595502006 Active 2023 LIDYA MINOR MD [address] [facility] [place], [place], [address] , [place] [facility] [place] 4 10:17:00 Hyperimmu noglobuli n E syndrome 90018275 Active 2023 LIDYA MINOR MD [address] [facility] [place] [place] [address], [place], [address] , [place] [facility] 4 10:17:16 Moderate persisten t asthma 232864949 Active 2023 LIDYA MINOR MD [address] [facility],[place] [address], [place], [address] , [place] [facility] 4 10:17:24 Polyp of nasal cavity 443572546 Active 2023 LIDYA MINOR MD [address] [facility],[place] [address], [place], [address] , [place] [facility] 4 10:36:51 Pain of left temporoma ndibular joint 77692522463 971265 Active 2024 JUANITA VO PA-C [address] [facility],[place] [address], [place], [address] , [place] - [facility] 5 13:37:29 Problem Notes None recorded. Procedures Surgical History Date Name Laterality Status Provider Name and Address Organization Details Recorded Time Air & Speech Audio with Tymps (63874, 42186 & 38600) completed TAWANNA WEAVER [address] [facility] [place] [place] [facility], [place], [address], [place] [facility] 05/23/2024 13:49:00 JMSNasal/Sinus Endoscopy completed LIDYA URIBE MD [address] [facility] [place] [place] [address], [place], [address], [place] [facility] 10/01/2023 10:35:41 functional endoscopic sinus surgery completed LIDYA URIBE MD [address], [address], [place] [facility] 09/30/2023 14:24:57 simple extraction of tooth completed LIDYA URIBE MD [address], [address], [place] [facility] 09/30/2023 14:25:15 dilation and curettage completed LIDYA URIBE MD [address] [place] [address], [address], [place] [facility] 09/30/2023 14:26:03 arthroscopy of knee completed LIDYA URIBE MD [address] [place] [address], [address], [place] [facility] 09/30/2023 14:26:15 Imaging Results Imaging Date Name Status [facility]Modified by [facility] Details LastModified Time 10/01/2023 CT, sinuses, w/o contrast completed evelyn Ents [address], [address], 10/01/2023 10:36:08 10/01/2023 CT, sinuses, w/o contrast completed evelyn [facility] [address], [address], 10/17/2023 12:45:07 05/28/2019 imaging/diagno stic result completed [...] Name and Address Organization Details Recorded Time 222984 Flonase medicatio n other Not available Not available 09/25/2023 01976 RxNorm React ion: unkno wn, unspe cifie d;; Not Available [facility] 4 01:19:32 758184 Demerol medicatio n Not available Not available Not available 10/01/2023 50415 1 RxNorm Serge murphy [place] - [facility] 4 10:10:31 900729 morphine medicatio n Not available Not available Not available 10/01/2023 7052 RxNorm Serge murphy [place] - [facility] 4 10:10:40 Medications Name Sig Start [...] mg tablet 04/26 completed Medicati on ID: [id number] D uration Value: 30 Brand Name: gabapent [...] 10 mg tablet active Medicati on ID: [id number] B rand Name: atorvast atin Sen d [...] 8 mg tablet active Medicati on ID: 641591 B rand Name: ondanset sharon HCl Send [...] mg tablet 05/23 completed Medicati on ID: [id number] D uration Value: 30 Brand Name: benztrop ine Send Method: E-Prescr ibed Sub s Allowed: subs JENNIFER Mays al Instruct ion: TAKE 1/2 TABLET BY MOUTH IN THE MORNING AND 1 TABLET BY MOUTH AT BEDTI MI Medic ationGen ericName : benztrop ine Not [...] elayed release 09/30 completed Medicati on ID: [id number] D uration Value: 90 Brand Name: omeprazo le Send Method: E-Prescr ibed Sub s Allowed: subs OK Speci al Instruct ion: TAKE ONE CAPSULE BY MOUTH TWICE A DAY Medi cationGe nericNam e: omeprazo le Medic ation ID: [id number] D uration Value: 90 Brand Name: omeprazo [...] mg tablet 04/26 completed Medicati on ID: [id number] D uration Value: 30 Brand Name: folic acid Sen d Method: E-Prescr ibed Sub s Allowed: subs OK Speci al Instruct ion: TAKE FOUR TABLETS BY MOUTH EVERY DAY [facility] Botanica ExoticaDarian nericNam e: folic acid Not Available Not [...] 24 hr 2019 active Medicati on ID: [id number] D uration Value: 30 Brand Name: metformi [...] mg tablet 2019 active Medicati on ID: 117009 D uration Value: 30 Brand Name: lisinopr il Send Method: E-Prescr ibed Sub s Allowed: subs OK Speci al Instruct ion: TAKE ONE TABLET BY MOUTH EVERY DAY Medi cationGe nericNam e: lisinopr il Not Available Not Available Not Available ipratropi um bromide 21 mcg (0.03 %) nasal spray 2 spray 04/26 completed Medicati on ID: [id number] [place] By Name: Jerome Sauer nd [...] mg tablet 04/26 completed Medicati on ID: [id number] D uration Value: 30 Brand Name: Latuda [...] mg capsule 04/26 completed Medicati on ID: 148145 D uration Value: 30 Brand Name: Vraylar Send Method: E-Prescr ibed Sub s Allowed: subs OK Speci al Instruct ion: TAKE ONE CAPSULE BY MOUTH EVERY DAY IN THE MORNING Medicati onGeneri cName: Vraylar Medicati on ID: [id number] D uration Value: 30 Brand Name: Vraylar [...] Updated DateTime 10/01/2023 162.56 cm 29 kg/m2 49031.11 g Serge [facility] 10/01/2023 10:14:43 Date Recorded Body height Body mass index (BMI) Body weight Provider Name and Address Organization Details Last Updated DateTime 05/23/2024 162.56 cm 29 kg/m2 21746.11 g Trish Montez [place] - [facility] 05/23/2024 13:23:27 Social History Question Answer Notes LastModified by Organizat ion Details LastModified Time Tobacco Smoking Status Never Smoker Serge murphy [place] - [facility] 10/01/2023 10:11:57 What Is Your Level Of Alcohol Consumption? None Information not available 10/01/2023 Do You Use Any Illicit Or Recreational Drugs? No [email or web address] Information not available 10/01/2023 Do You Or Have You Ever Used Any Other Forms Of Tobacco Or Nicotine? No Information not available 10/01/2023 Sex: Unknown Functional Status None recorded. Mental Status None recorded. Family History Nothing Reported. Medical History Condition Response Allergies/Hayfever N Heart Problems N Emphysema N Migraines N Thyroid Problems N Depression Y COPD N Glaucoma N Nasal or Sinus Problems N Anemia N Immune System Disorder N Anesthesia Complications N Heart Attack (AR) N Other Skin Condition N Diabetes Y Bleeding Disorder N Food Allergy N Hearing Loss N Arthritis Y Hyperlipidemia Y Stroke N Dementia N Nasal polyps N Asthma N Sleep Disorder Y High Cholesterol Y GERD/Reflux N Liver Disease N Headaches Y Fibromyalgia N Hypertension N Speech Delay N Kidney Disease Y Gynecological HistoryNo gynecological history recorded. Obstetrics History GPAL:G 0 P 0 0 0 0 Past Encounters Encounter ID Performer Location Encounter Start Date Encounter Closed Date Diagnosis/Indication Diagnosis SNOMED-CT Code Diagnosis ICD10 Code Diagnosis Note [id number] LIDYA MINOR MD [facility] [address] [address] 10/01/2023 09:53:23 10/01/2023 10:39:48 Chronic cough 31981119 R05.3 Posterior rhinorrhea 758 91799 R09.82 Perennial allergic rhinitis 458364627 J30.89 Hypogammaglobulinemia 11 8243182 D80.1 Hyperimmun oglobulin E syndrome 11574927 D82.4 Moderate p ersistent asthma 289036349 J45.40 Chronic sinusitis 036691 00 J32.9 Polyp of nasal cavity 73 5461716 J33.0 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 There is evidence of prior sinus surgery with an adhesion on the right side. Bilateral diffuse maxillary sinus thickening noted. Suggest topical steroid irrigation s and follow-up in 3 months. No indication for surgical interventi on at the present time [id number] LIDYA MINOR MD [facility] [address] [address] 05/23/2024 13:20:39 05/23/2024 14:18:31 Pain of left temporomandibular joint 6625672600 9838219 M26.622 Right Ear:Normal hearing with excellent speech [...] ID Guarantor Name 10/01/2023 2 [place]ICARE B-[place]: [facility] Meredith Leah Radha [id number] Meredith Lynn Radha 10/01/2023 1 BCBS-ID:[facility] [id number] Pineda Garcia [id number] Meredith Lynn Radha 05/23/2024 2 [place] [facility] Meredith Leah Radha [id number] Meredith Leah Radha 05/23/2024 1 BC[employer]-ID:[facility] [id number] Pineda Garcia [id number] Meredith Lynn Garcia Notes Date Note [...] allergy with the scent. LIDYA URIBE MD [address] [place] [address], [place], [address], [facility] - [facility] 10/01/2023 12:13:54 5 text/html 48 year old [...] unintentional weight loss . LIDYA URIBE MD [address] [place] [address], [place], [address], [facility] - [facility] 05/23/2024 16:54:36 OBGyn Episode No OBEpisode recorded.
--- OUTSIDE RECORDS SUMMARY | 2024-07-16 19:18 | XMS_ITS | Encounter Summary ---
Author Organization [facility] Address [address] [place] [address] Care Team Providers Care Food Assembler Kitchen Name Role Phone MilesTristenca Primary Care Provider [phone] Reason for Visit * Reason Onset Date Comments migraines 03/29/2021 Encounter Details Date Type Department Care Team (Late st Contact Info) Description 03/29/2021 Telephone [facility] Central Scheduling Department [address] [place] [address] Telephone Intake, Staff migraines Social History Tobacco [...] 11/18/2024 10:30 AM EDT Office Visit [facility] [address] [place] [address] Parts Driver: Adrienne Gutiérrez MD [address] [place] [address] documented as of this encounter Visit Diagnoses Not on filedocumented in this encounter Care Teams Food Assembler Kitchen Relationship Specialty Start Date End Date Bernie Aquino [address] [place] [address] PCP - General 08/22/21 documented as of this encounter
--- OUTSIDE RECORDS SUMMARY | 2024-07-16 19:18 | XMS_ITS | Encounter Summary ---
Author Organization [facility] Address [address] [place] [address] Care Team Providers Care Vb Net Developer Name Role Phone MilesTristenca Primary Care Provider [phone] Reason for Visit * Reason Onset Date Comments Reschedule 10/18/2021 Encounter Details Date Type Department Care Team (Late st Contact Info) Description 10/18/2021 Telephone [facility] Central Scheduling Department [address] [place] [address] Telephone Intake, Staff Reschedule Social History Tobacco [...] pls follow up with pt to coordinate [phone] documented in this encounter Plan of Treatment Upcoming Encounters Date Type Department Care Team (Late st Contact Info) Description 11/18/2024 10:30 AM EDT Office Visit [facility] [address] [place] [address] Foster Care Worker: Adrienne Gutiérrez MD [address] [place] [address] documented as of this encounter Visit Diagnoses Not on filedocumented in this encounter Care Teams Vb Net Developer Relationship Specialty Start Date End Date Bernie Aquino [address] [place] [address] PCP - General 08/22/21 documented as of this encounter
--- OUTSIDE RECORDS SUMMARY | 2024-07-16 19:18 | XMS_ITS | Encounter Summary ---
Author Organization [facility] Address [address] [place] [address] Care Team Providers Care Oracle Database Administrator Name Role Phone Bernie Aquino Primary Care Provider [phone] Encounter Details Date Type Department Care Team (Late st Contact Info) Description 04/05/2020 Documentation [facility] [address] [place] [address] Rafaela Pedro CPhT Social History Tobacco Use [...] Description 11/18/2024 10:30 AM EDT Office Visit [facility] [address] [place] [address] Artificial Fly Tier: Adrienne Gutiérrez MD [address] [place] [address] documented as of this encounter Visit Diagnoses Not on filedocumented in this encounter Care Teams Oracle Database Administrator Relationship Specialty Start Date End Date Bernie Aquino [address] [place] [address] PCP - General 08/22/21 documented as of this encounter
--- OUTSIDE RECORDS SUMMARY | 2024-07-16 19:18 | XMS_ITS | Data Portability ---
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 This visit is a cihr-jf-gwwr visit during the COVID-19 pandemic Public Health [...] all services provided today in accordance with [facility] and CDC guidelines. There was additional practice expense incurred due to the Public Health Emergency. This additional expense includes but is not limited to: ? Additional clinical staff and medical technical instructor course developer time for pre-screening ? Time spent reviewing [...] AVN and loose bodies 2021 022 [email or web address] [facility], [address] [place], [address], 09:34:34 Medication Orders None recorded. Patient TargetsNo [...] wo pelvi s Fin al Report EXAM#: [id number] PROCED URE: DXR 0178 XR HIP [...] RAMÍREZ M.D. On: Jul 06 2021 1:13P [email or web address] [facility] [address] [facility], [place], [address], 07/06/2021 14:45:47 07/19/19 22 07/16/2021 MRI, hip, w/o contr ast Pre limina ry Report EXAM#: [id number] PROCED URE: MR 0073 MRI HIP [...] 18 2021 9:11A Signed by: On: prem [facility] [address] [facility], [place], [address], 07/18/2021 14:51:07 07/19/19 22 07/16/2021 MRI, hip, w/o contr ast Fin al Report EXAM#: [id number] PROCED URE: MR 0073 MRI HIP [...] WASHINGTON M.D. On: Jul 18 2021 11:57A [facility] [address] [facility], [place], [address], 07/18/2021 14:01:26 03/29/20 22 03/27/2022 MRI hip left Fin al Report EXAM#: [id number] PROCED URE: MR 0070 MRI HIP [...] supero inferi or by 0.3 cm tate x ray developing machine operator ior by 0.3 cm mediol [...] On: Mar 29 2022 9:14A Signed by: FELIX Cano, BRITTNI Reeves On: Mar 29 2022 9:14A [email or web address] [facility] [address] [facility], [place], [address], 03/29/2022 13:42:34 03/29/20 22 03/27/2022 MRI, hip, w/o contr ast Fin al Report EXAM#: [id number] PROCED URE: MR 0073 MRI HIP [...] WASHINGTON M.D. On: Mar 29 2022 9:25A [email or web address] [facility] [address] [place], [address], 03/29/2022 13:42:48 01/18/20 23 01/17/2023 xr hip right 4vw_W or wo pelvi s Fin al Report EXAM#: [id number] PROCED URE: DXR 0178 XR HIP [...] M.D. On: Jan 17 2023 12:22P [email or web address] [facility] [address] [place], [address], 01/17/2023 12:38:51 Result Notes None recorded. Problems Name Problem SNOMED Code Status Onset Date Resolution Date Notes Provider Name and Address Organization Details Recorded Time Acetabular labrum tear 357843473 Active 021 Enedina murphy [facility] 14:17:00 Problem Notes None recorded. Procedures Surgical History Date Name Laterality Status Provider Name and Address Organization Details Recorded Time 022 parathyroidectomy completed Sonya Nation [facility] 04/12/2022 13:46:24 018 Orthopaedic Surgery completed Lexii Pacheco [facility] 02/23/2021 13:14:29 009 Orthopaedic Surgery completed Lexii Pacheco [facility] 02/23/2021 13:14:38 000 Orthopaedic Surgery completed Lexii Pacheco [facility] 02/23/2021 13:14:46 Imaging Results Imaging Date Name Status LastModified by Organiz ation Details LastModified Time 07/06/2021 xr hip right 4vw_W or wo pelvis completed [address] [facility] [address] [place], [address], 07/06/2021 14:45:47 07/16/2021 MRI, hip, w/o contrast completed [address] [facility] [address] [place], [address], 07/18/2021 14:51:07 07/16/2021 MRI, hip, w/o contrast completed [address] [facility] [address] [place], [address], 07/18/2021 14:01:26 03/27/2022 MRI hip left completed [address] [place] [address], [address], 03/29/2022 13:42:34 03/27/2022 MRI, hip, w/o contrast completed [address] [facility] [address] [place], [address], 03/29/2022 13:42:48 01/17/2023 xr hip right 4vw_W or wo pelvis completed [email or web address] [facility] [address] [facility], [place], [address], 01/17/2023 12:38:51 Procedure Notes None recorded. Medical Equipment None Reported. Allergies Allergen ID Allergen Name Allergen Category Reaction Reaction Severity Criticality Documentation Date Start Date Code Code System Note Provider Name and Address Organization Details Recorded Time 335807 morphine medicatio n Not available Not available Not available 02/23/2021 7052 RxNorm Lexii Pacheco [facility] 13:07:48 029292 adhesive tape environme nt,medica tion Not available Not available Not available 02/23/2021 54505 UNK Lexiimingo Pacheco [facility] 13:07:48 561824 Demerol medicatio n Not available Not available Not available 02/23/2021 26686 1 RxNorm Lexii Tara [facility] 13:07:48 990289 Non-stero idal anti-infl ammatory agent (product) medicatio n other Not available Not available 02/23/2021 84260 005 SNOMED IgG defic iency , canno t take. Lexii Pacheco [facility] 13:13:07 Medications Name Sig Start Date Stop [...] Not Available Not Available No t [facility] mg disintegrat ing tablet PLACE ONE TABLET BY MOUTH EVERY OTHER DAY 2021 active Not Available Not Available Not Avai lable Vitals Date Recorded Body height Provider Name an d Address Organization Details Last Updated DateTime 07/06/2021 162.56 cm Dhaval Coburn [facility] 07/06/2021 11:20:09 Date Recorded Body height Body mass index (BMI) Body weight Provider Name and Address Organization Details Last Updated DateTime 07/26/2021 162.56 cm 28.7 kg/m2 83168.93 g [facility] 07/26/2021 12:20:18 Date Recorded Body height Body mass index (BMI) Body weight Provider Name and Address Organization Details Last Updated DateTime 03/10/2022 162.56 cm 28.8 kg/m2 41695.52 g Rosio Whaley [facility] 03/10/2022 13:26:00 Date Recorded Body height Body mass index (BMI) Body weight Provider Name and Address Organization Details Last Updated DateTime 04/12/2022 162.56 cm 29.5 kg/m2 08675.89 g [facility] 04/12/2022 13:46:00 Date Recorded Body height Provider Name an d Address Organization Details Last Updated DateTime 01/17/2023 162.56 cm Shalom Bryantiner [facility] 01/17/2023 11:59:26 Social History Question Answer Notes LastModified by Organizat ion Details LastModified Time Tobacco Smoking Status Never Smoker Lexii murphy [facility] 02/23/2021 13:07:49 What Is Your Level Of Alcohol Consumption? None [email or web address] Information not available 02/23/2021 What Is Your Level Of Caffeine Consumption? None Information not available 03/10/2022 Do You Or Have You Ever Used E-cigarettes Or Vape? Never Used Electronic Cigarettes [email or web address] Information not available 02/23/2021 What Is Your Occupation? Disadled [email or web address] Information not available 02/23/2021 Have You Had Cortisone? Yes Information not available 02/23/2021 Briefly Explain Your Foot/ankle Condition (injury) Hip Problem, Pain, Instability, Weakness, Stiffness, Spasms, Some Sharp Pains [email or web address] Information not available 02/23/2021 Date Of Injury/Duration Of Injury (weeks, Months, Years) No Injury, Date Of Initial Diagnosis 2017 [email or web address] Information not available 02/23/2021 What Treatments Have You Tried For This Condition? Cortisone Shot, A Little Pt [email or web address] Information not available 02/23/2021 Have Any Other Tests Been Done For This Problem? X-ray [email or web address] Information not available 02/23/2021 Is This Condition/proble m Affecting Your Ability To Exercise Or Perform Activities Of Daily Living? Yes [email or web address] Information not available 02/23/2021 Do You Wear Custom-made Orthotics? No [email or web address] Information not available 02/23/2021 How Old Are They? 4 Years [email or web address] Information not available 02/23/2021 Have You Ever Had Problems With Healing A Wound? Have You Ever Been Told You Are A Slow Healer? No [email or web address] Information not available 02/23/2021 Do You Or Have You Ever Used Smokeless Tobacco? Never Used Smokeless Tobacco [email or web address] Information not available 02/23/2021 How Much Tobacco Do You Smoke? No [email or web address] Information not available 02/23/2021 What Types Of Sporting Activities Do You Participate In? None Information not available 02/23/2021 How Many Years Have You Smoked Tobacco? 0 [email or web address] Information not available 02/23/2021 Sex: Unknown Functional Status Question Answer Note LastModified by Organizat ion Details LastModified Time What is your exercise level? Occasional Information not available 03/10/2022 Mental Status None recorded. 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 Obstetrics History GPAL:G 0 P 0 0 0 0 Past Encounters Encounter ID Performer Location Encounter Start Date Encounter Closed Date Diagnosis/Indication Diagnosis SNOMED-CT Code Diagnosis ICD10 Code Diagnosis Note [id number] WANG VALENZUELA MD [facility] am Office [address] [place] [address] 02/23/2021 12:48:39 02/23/2021 13:44:40 Hip pain 31073559 M25.551 Acetabular labrum tear 232082092 M24.151 [id number] ROMY MULLER [facility] am Office [address] [place] [address] 03/16/2021 13:16:51 03/16/2021 14:16:47 Acetabular labrum tear 920088829 M24.151 [id number] ROMY MULLER [facility] Office [address] [address] 05/18/2021 12:19:43 05/18/2021 13:04:42 Acetabular labrum tear 903367660 M24.151 [id number] WANG VALENZUELA MD [facility] Office [address] [address] 07/06/2021 10:39:57 07/06/2021 21:38:58 Hip pain 90415765 M25.551 [id number] WANG VALENZUELA MD [facility] Office [address] [place] [phone] 07/26/2021 09:33:05 07/26/2021 15:13:55 Osteoarthritis of right hip joint 5584849221 44605 M16.11 [id number] WANG VALENZUELA MD [facility] Office [address] [place] [phone] 03/10/2022 12:49:51 03/16/2022 20:28:35 Hip pain 03588831 M25.462 [id number] WANG VALENZUELA MD [facility] Office [address] [address] 04/12/2022 13:04:41 04/19/2022 10:57:56 Hip pain 62942497 M25.021 [id number] ROMY COLORADO [facility] Office [address] [address] 01/17/2023 10:53:10 01/17/2023 12:11:23 Complete tear, hip ligament 257586962 S73.101A Health Concerns Section Related Observation LastModified by Organization Detai ls LastModified Time None Recorded Concern Status LastModified by Organization Details LastModified Time None Recorded Advance Directives Directive None Recorded Payers Encounter Date Sequence Insurance Name Policy Number Policy Brambila Covered Member ID Brambila Member ID Guarantor Name 07/06/2021 1 [facility] [facility] [id number] Pineda Garcia [id number] Meredith Arreguins 07/06/2021 2 [place]: [facility] Meredith Garcia [id number] 24 Meredith Arreguins 07/26/2021 1 [place] [id number] Pineda Arreguins [id number] Meredith Arreguins 07/26/2021 2 [place]: [facility] Meredith Garcia [id number] 24 Meredith Arreguins 03/10/2022 1 [place] [id number] Pineda Arreguins [id number] Meredith Garcia 03/10/2022 2 [place]: [facility] Meredith Garcia [id number] 24 Meredith Arreguins 04/12/2022 1 [place] [id number] Pineda Arreguins [id number] Meredith Arreguins 04/12/2022 2 [place]ARE [place]: [facility] Meredith Garcia [id number] 24 Meredith Arreguins 01/17/2023 1 [place] [id number] Pineda Arreguins [id number] Meredith Arreguins 01/17/2023 2 [place]: [facility] Meredith Garcia [id number] 24 Meredith Garcia Notes Date Note Type [...] considering a thyroidectomy soon. WANG VALENZUELA MD [address] [place] [address], [phone], [facility] 07/13/2021 11:11:43 07/26/2021 text/html COVID-19 STATEME NT: This visit was conducted as a real time interactive TeleHealth audiovisual TeleHealth visit conducted via [Qure 4 U during the ongoing COVID-19 Federal Public Health Emergency. The patient was identified by name and date of and consented to this TeleHealth visit. The patient was at their home in [place] and I was at my [place] office. This was done over the course of 26 minutes including record review. We are in touch with Meredith today via telehealth. Patient is currently in [place]. This is for follow-up regarding her right hip MRI recently obtained. The overall concern was underlying mild arthritic changes middle-aged female with degenerative labral tear. WANG VALENZUELA MD [address] [place] [address], [phone], [facility] 08/02/2021 11:45:39 03/10/2022 text/html Meredith comes into [...] radiographs were obtained today. WANG VALENZUELA MD [address] [place] [address], [address], [facility] 03/18/2022 07:46:12 04/12/2022 text/html Meredith return s today for followup regarding her hips. She had MRI in the interim. Her pain mostly seems to be posterior SI joint. She reports focal point tenderness. She denies any neurologic deficits. She presents with a cane. Previously, we had concerns for significant osteoarthritic changes being present already. WANG VALENZUELA MD [address] [place] [address], [phone], [facility] 04/27/2022 15:11:21 01/17/2023 text/html Meredith return s [...] help her significantly as well. ROMY COLORADO [address] [place] [address], [phone], [facility] [place] [facility] 01/18/2023 22:43:28 OBGyn Episode No OBEpisode recorded.
--- OUTSIDE RECORDS SUMMARY | 2024-07-16 19:18 | XMS_ITS | Encounter Summary ---
Author Organization [facility] Address [address] [place] [address] Care Team Providers Care Truck Repair Service Estimator Name Role Phone Bernie Aquino Primary Care Provider [phone] Encounter Details Date Type Department Care Team (Late st Contact Info) Description 04/12/2021 Orders Only [facility] [address] [place] [address] ProviderCaitlyn MD [address] [place] [address] Social History Tobacco Use Types Packs/Day [...] Description 11/18/2024 10:30 AM EDT Office Visit [facility] S[facility] [address] [place] [address] Button Sewer: Adrienne Gutiérrez MD [address] [place] [address] documented as of this encounter Procedures * Due to [place] state law, this organization might not be sharing negative HIV tests. Procedure Name Priority Date/Time Associated Diagnosis Comments AMB EXTERNAL CT HEAD, OUTSID E RESULT Routine 03/15/2021 documented in this encounter Results * Due to [place] kubo financiero law, this organization might not be sharing negative HIV tests. * CT Head, Outside Result (03/15/2021) Anatomical Region Laterality Modality Other us Unknown Provider MD JEFFERSON EXTERNAL RESULT PROCEDUR ES Final Result documented in this encounter Visit Diagnoses Not on filedocumented in this encounter Care Teams Truck Repair Service Estimator Relationship Specialty Start Date End Date Bernie Aquino [address] [place] [phone] PCP - General 08/22/21 documented as of this encounter
--- OUTSIDE RECORDS SUMMARY | 2024-07-16 19:18 | XMS_ITS | Encounter Summary ---
Author Organization [facility] Address [address] [place] [address] Care Team Providers Care Cloth Laminating Supervisor Name Role Phone MilesTristenca Primary Care Provider [phone] Encounter Details Date Type Department Care Team (Late st Contact Info) Description 11/21/2021 Telephone [facility] Patient [facility] [address] [place] [address] Telephone Intake, Staff Social History Tobacco Use [...] to book it. Please call patient at [phone]. documented in this encounter Plan of Treatment Upcoming Encounters Date Type Department Care Team (Late Contact Info) Description 11/18/2024 10:30 AM EDT Office Visit [facility] [address] [place] [address] Bread Icer: Adrienne Gutiérrez MD [address] [place] [address] [phone] documented as of this encounter Visit Diagnoses Not on filedocumented in this encounter Care Teams Cloth Laminating Supervisor Relationship Specialty Start Date End Date Bernie Aquino [address] [place] [phone] PCP - General 08/22/21 documented as of this encounter
--- OUTSIDE RECORDS SUMMARY | 2024-07-16 19:19 | XMS_ITS | Encounter Summary ---
Author Organization [facility] Address [address] [place] [address] Care Team Providers Care Floor Coverings Installer Name Role Phone Bernie Aquino MARKETING TEAM LEAD Primary Care Provider Encounter Details Date Type [...] Info) Description 07/22/2024 9:00 AM EDT Appointment [facility] [address] [place] [phone] 07/30/2024 2:30 PM EDT Evaluation [facility] Speech Therapy [address] [place] [phone] Jessica Hull, SLOPE HOIST OPERATOR 09/10/2024 9:10 AM EDT Office Visit Gastroenterology - [address] [place] [phone] Leif Burciaga PA [address] [place] [address] documented as of this encounter Visit Diagnoses [...] documented as of this encounter Care Teams Floor Coverings Installer Relationship Specialty Start Date End Date Bernie Aquino NP [address] [facility] [place] [address] PCP - General Family Medicine 10/05/21 documented as of this encounter
--- OUTSIDE RECORDS SUMMARY | 2024-07-16 19:19 | XMS_ITS | Continuity of Care Document ---
Author Organization [facility] ter Address [address] [place] [id number]- Support Name Relationship Address Phone HEMANT LEE Personal Relationship Unknown U navailable LEE, EMBER spouse Unknown Unavailable LEE, EMBER Personal Relationship [...] U navailable Care Team Providers Care [employer] Process Technician Name Role Phone Bernie Aquino NP Primary Care Physician [phone] [id number] Date(s): 07/15/24 - 07/15/[address] [address]- Encounter Diagnosis Abdominal pain(Final) - 07/15/24 Viral gastritis(Final) - 07/15/24 Discharge Disposition: A-D/C Home Attending Physician: Nuno Martin MD Admitting Physician: Nuno Martin MD Referring Physician: Not on Staff, Referring MD Encounter Type: Disch ES Allergies, Adverse Reactions, Alerts Substance Criticality Severity [...] (oldterm) 8 03/14/09 Given 1Result Comment: [09/19/2017] [id number] 2Result Comment: [02/13/2018] [id number] 3Result Comment: [02/08/2017] [facility] [id number] 4Result Comment: [01/24/2013] ORDERRED BY [...] Maintenance, 10/15/23 8:40:00 AM EDT, [facility], Partial fill upon patient request [...] EDT, Route to Pharmacy Electronically, [facility], 163, cm, 11/22/20 12:47:00 EDT, Height Start Date: 12/01/20 Status: Ordered Quantity: 20.0 Unit: tablet Repeat number: 2 Dilaudid Inj 0.5 mg, Injection, IV Push Slowly, Once, PRN for Pain , Severe, STAT, 07/15/24 11:37:00 AM EST Start Date: 07/15/24 Stop Date: 07/15/24 Status: Completed Repeat number: 1 Emgality Prefilled Syringe 120 mg/mL subcutaneous solution [...] EDT, 04/15/24 6:54:00 AM EST, [facility], Partial fill upon patient request [...] Maintenance, 06/24/24 8:11:00 AM EST, [facility], 163, cm, 06/12/24 8:08:00 EST, [...] Quantity: 100.0 Unit: each Repeat number: 12 Mirena 52 mg intrauterine device 1 each = 52 mg, Once, 0 Refills, Maintenance, 07/15/24 8:48:00 AM EST, Partial fill upon patient request if the prescription is for a schedule II opioid drug. Start Date: 07/15/24 Status: Ordered Repeat number: 1 montelukast 10 mg oral tablet 1, tablet, By Mouth, Daily in PM, # 90 tablet, Refills 1, Tot. Refills 1, Maintenance, 04/08/24 7:45:00 AM EST, Route to Pharmacy Electronically, [facility], 163, cm, 03/07/24 8:07:00 EDT, [...] Repeat number: 7 ondansetron 4 mg oral tablet, disintegrating 1 tablet = 4 mg, By Mouth, Every 8 hours, PRN as needed for nausea/vomiting, # 30 tablet, 0 Refills, Maintenance, 07/15/24 6:14:00 PM EST, DIS Tablet, [facility], Partial fill upon patient request if the prescription is for a schedule II opioid drug., 159, cm, 07/15/24 9:23:00 EST, Height, 78.2, kg, 07/15/24 9:23:00 EST, Dry Weight Start Date: 07/15/24 Status: Ordered Quantity: 30.0 Unit: tablet Repeat number: 1 Oxcarbazepine See Instructions, 900mg By Mouth twice a day, 0 Refills, Maintenance, 04/25/24 10:41:00 AM EST, Partial fill upon patient request if the prescription is for a schedule II opioid drug. Start Date: 04/25/24 Status: Ordered Repeat number: 1 Pen [place], 31 G x 5 mm BD Ultra [...] Date: 04/25/24 Status: Ordered Repeat number: 1 topiramate 50 mg oral tablet 1 tablet [...] mellitus Confirmed Active Dyshidrotic eczema Confirmed Active Results Radiology Reports * Exam Date Time Procedure Performing Provider Status 07/15/24 3:55 PM US Pelvic Doppler Comp Kourtney Thomas [facility] (Verified) Notes: (US Pelvic Doppler Comp) Reason For Exam: Pelvic Pain;Other: RESULT: US Pelvic Doppler Comp US Pelvic Transabdominal, US Pelvic Transvaginal, US Pelvic Doppler Comp Hx of Present Illness: abd pain with bloating, seen at [facility] recently for ovarian cyst, went to OB today, doesn't feels symptom due to ovarian cyst. now increased pain with bloating . + nausea; Reason: Left lower quadrant pain; Clinical Question(s): Torsion; Order Comment: US Pelvic Non-Ob Comp Prep COMPARISON: CT Abdomen and Pelvis performed same day. TECHNIQUE: Transabdominal and transvaginal pelvic ultrasound with grayscale, color Doppler, and spectral Doppler analysis. FINDINGS: UTERUS: Size: 7.5 x 4.0 x 5.6 cm, volume 87.7 cc. Endometrial stripe is mostly obscured by an IUD, which appears in satisfactory position within the endometrial canal. Morphology: Normal configuration and echotexture. scar is noted. RIGHT OVARY: Size: 2.6 x 2.3 x 3.0 cm, volume 9.5 cc. Morphology: Normal echotexture. No pathologic cysts or mass. Normal arterial and venous waveforms. LEFT OVARY: Size: 4.1 x 3.2 x 4.4 cm, volume 29.6 cc. Morphology: Simple 3.8 x 3.2 x 3.6 cm cyst. Otherwise normal echotexture. Normal arterial and venous waveforms. ADNEXA: Normal. No adnexal masses or fluid collections. IMPRESSION: No sonographic evidence of active ovarian torsion. Simple 3.8 cm left ovarian cyst. O-RADS Category 2 (Almost certainly benign). No imaging follow-up is required. Reference: ACR O-RADS US v2022. Satisfactorily positioned IUD within the endometrial canal. WSN: [id number] Ordering Physician: Merly Russell Dictated By: Richard Solis MD Dictated Date/Time: 07/15/24 4:23 pm Reviewed By: Richard Solis MD Signed By: Richadr Solis MD Signed Date/Time: 07/15/24 4:23 pm Transcribed By: YENNI Transcribed Date/Time: 07/15/24 4:04 pm * Exam Date Time Procedure Performing Provider Status 07/15/24 3:55 PM US Pelvic Transvaginal Sonya Thomas; Neri [facility] (Verified) Notes: (US Pelvic Transvaginal) Reason For Exam: Pelvic Pain;Other: RESULT: US Pelvic Transvaginal US Pelvic Transabdominal, US Pelvic Transvaginal, US Pelvic Doppler Comp Hx of Present Illness: abd pain with bloating, seen at [facility] recently for ovarian cyst, went to OB today, doesn't feels symptom due to ovarian cyst. now increased pain with bloating . + nausea; Reason: Left lower quadrant pain; Clinical Question(s): Torsion; Order Comment: US Pelvic Non-Ob Comp Prep COMPARISON: CT Abdomen and Pelvis performed same day. TECHNIQUE: Transabdominal and transvaginal pelvic ultrasound with grayscale, color Doppler, and spectral Doppler analysis. FINDINGS: UTERUS: Size: 7.5 x 4.0 x 5.6 cm, volume 87.7 cc. Endometrial stripe is mostly obscured by an IUD, which appears in satisfactory position within the endometrial canal. Morphology: Normal configuration and echotexture. scar is noted. RIGHT OVARY: Size: 2.6 x 2.3 x 3.0 cm, volume 9.5 cc. Morphology: Normal echotexture. No pathologic cysts or mass. Normal arterial and venous waveforms. LEFT OVARY: Size: 4.1 x 3.2 x 4.4 cm, volume 29.6 cc. Morphology: Simple 3.8 x 3.2 x 3.6 cm cyst. Otherwise normal echotexture. Normal arterial and venous waveforms. ADNEXA: Normal. No adnexal masses or fluid collections. IMPRESSION: No sonographic evidence of active ovarian torsion. Simple 3.8 cm left ovarian cyst. O-RADS Category 2 (Almost certainly benign). No imaging follow-up is required. Reference: ACR O-RADS US v2022. Satisfactorily positioned IUD within the endometrial canal. WSN: [id number] Ordering Physician: Merly Russell Dictated By: Richard Solis MD Dictated Date/Time: 07/15/24 4:23 pm Reviewed By: Richard Solis MD Signed By: Richard Solis MD Signed Date/Time: 07/15/24 4:23 pm Transcribed By: YENNI Transcribed Date/Time: 07/15/24 4:04 pm * Exam Date Time Procedure Performing Provider Status 07/15/24 3:55 PM US Pelvic Transabdominal Sonya Thomas; Auth (Verified) Notes: (US Pelvic Transabdominal) Reason For Exam: Pelvic Pain;Other: RESULT: US Pelvic Transabdominal US Pelvic Transabdominal, US Pelvic Transvaginal, US Pelvic Doppler Comp Hx of Present Illness: abd pain with bloating, seen at [facility] recently for ovarian cyst, went to OB today, doesn't feels symptom due to ovarian cyst. now increased pain with bloating . + nausea; Reason: Left lower quadrant pain; Clinical Question(s): Torsion; Order Comment: US Pelvic Non-Ob Comp Prep COMPARISON: CT Abdomen and Pelvis performed same day. TECHNIQUE: Transabdominal and transvaginal pelvic ultrasound with grayscale, color Doppler, and spectral Doppler analysis. FINDINGS: UTERUS: Size: 7.5 x 4.0 x 5.6 cm, volume 87.7 cc. Endometrial stripe is mostly obscured by an IUD, which appears in satisfactory position within the endometrial canal. Morphology: Normal configuration and echotexture. scar is noted. RIGHT OVARY: Size: 2.6 x 2.3 x 3.0 cm, volume 9.5 cc. Morphology: Normal echotexture. No pathologic cysts or mass. Normal arterial and venous waveforms. LEFT OVARY: Size: 4.1 x 3.2 x 4.4 cm, volume 29.6 cc. Morphology: Simple 3.8 x 3.2 x 3.6 cm cyst. Otherwise normal echotexture. Normal arterial and venous waveforms. ADNEXA: Normal. No adnexal masses or fluid collections. IMPRESSION: No sonographic evidence of active ovarian torsion. Simple 3.8 cm left ovarian cyst. O-RADS Category 2 (Almost certainly benign). No imaging follow-up is required. Reference: ACR O-RADS US v2022. Satisfactorily positioned IUD within the endometrial canal. WSN: [id number] Ordering Physician: Merly Russell Dictated By: Richard Solis MD Dictated Date/Time: 07/15/24 4:23 pm Reviewed By: Richard Solis MD Signed By: Richard Solis MD Signed Date/Time: 07/15/24 4:23 pm Transcribed By: YENNI Transcribed Date/Time: 07/15/24 4:04 pm * Exam Date Time Procedure Performing Provider Status 07/15/24 12:[address] Abd/Pelvis W/ IV Contrast Only Jojo Singh; Maxiimliano (Verified) Notes: (CT Abd/Pelvis W/ IV Contrast Only) Reason For Exam: RLQ abdominal pain;Other: RESULT: CT Abd/Pelvis W/ IV Contrast Only CT Abd/Pelvis W/ IV Contrast Only Hx of Present Illness: abd pain with bloating, seen at [facility] recently for ovarian cyst, went to OB today, doesn't feels symptom due to ovarian cyst. now increased pain with bloating . + nausea; Reason: Other:; RLQ abdominal pain; Clinical Question(s): Appendicitis; Order Comment: TECHNIQUE: Spiral CT through the abdomen and pelvis with IV contrast formatted in 3 planes. 100 cc of Isovue 300 was administered intravenously. This study was performed without oral contrast. Weight-based protocol using automatic tube modulation was used to optimize exposure parameters. CTDIvol Body: 14.00 mGy, DLP Body: 792 mGy*cm. COMPARISON: 05/05/2008 FINDINGS: The heart is normal in size. There may be a central line with the tip in the right atrium. There isno pericardial effusion. The visualized lung bases are unremarkable. The liver is diffusely decreased in attenuation, consistent with steatosis. No masses are seen. The gallbladder, spleen, pancreas, and adrenal glands are unremarkable. Symmetric renal contrast enhancement is demonstrated bilaterally. There are bilateral simple cysts measuring up to 2 cm within the upper pole of the left kidney. These do not require follow-up. Multiple bilateral nonobstructing renal calculi are seen, for example within the left upper pole measuring 0.4 cm. No hydronephrosis is present. The bladder is distended and unremarkable. An IUD is noted within the uterus. There is a 3.7 cm left ovarian cyst. The stomach is largely decompressed as is the proximal small bowel. Fluid- filled, distended ileal loops are seen without transition point or wall thickening. The appendix is contrast-filled and unremarkable. A moderate stool burden within the colon is noted. There is no obstruction. There is no free air, free fluid, or lymphadenopathy. An anterior abdominal wall hernia mesh is seen. The osseous structures are unremarkable. IMPRESSION: Fluid-filled small bowel loops without transition point or wall thickening which may be due to an enteritis. WSN: [id number] Ordering Physician: Merly Russell Dictated By: Glendy Mayer MD Dictated Date/Time: 07/15/24 12:44 p Reviewed By: Glendy Mayer MD Signed By: Glendy Mayer MD Signed Date/Time: 07/15/24 12:44 pm Transcribed By: YENNI Transcribed Date/Time: 07/15/24 12:38 pm Vital Signs Most recent to oldest [Reference Range]: 1 2 3 Height 159 cm (07/15/24 9:22 AM) Weight 78.2 kg (07/15/24 9:22 AM) Oxygen Saturation [94-100 %] 98 % (07/15/24 3: PM) 100 % (07/15/24 9:22 AM) Pulse Rate [55-90 bpm] 97 bpm *H* (07/15/24 3:03 PM) 105 bpm *H* (07/15/24 9:22 AM) Blood Pressure [90-138/55-84 mm Hg] 114/77mm Hg (07/15/24 3:03 PM) 126/91mm Hg (07/15/24 9:22 AM) Respiratory Rate [16-30 br/min] 18 br/min (07/15/24 3:03 PM) 18 br/min (07/15/24 11:50 AM) 18 br/min (07/15/24 9:22 AM) Temperature [96.8-100.4 DegF] 98.3 DegF (07/15/24 9:22 AM) Mode of Delivery (Oxygen) Room air (07/15/24 3:03 PM) Room air (07/15/24 9:22 AM) Temperature Route Oral (07/15/24 9:22 AM) Dry Weight 78.2 kg (07/15/24 9:22 AM) Weight Obtained Via Standing scale (07/15/24 9:22 AM) Dry Weight Obtained Via Standing scale (07/15/24 9:22 AM) Social History Social History Type Response Smoking Status Never smoker entered on: 05/12/13 Sex Sex Representation Female (finding) Consult note * Sammi Maurice DO: PERFORM Event Display: Consultation Note Authored Date: [id number] Patient: ??HEMANT LEE ? Age:??48 Years?Sex:??Female?:??1975?? Referring Provider Nuno Martin MD Chief Complaint Left sided abdominal pain History of Present Illness 48-year-old G1, P1 who presents to the emergency department today with left lower quadrant pain x 2days that she believes is related to her ovary. The gynecology team was consulted for concern of ovarian torsion.??She initially presented to emergency department at [facility] on 07/13 for pelvic pain and fever at home of 101 degrees.??She was found to have a 3.8 cm left ovarian cyst??on CT scan 2 days ago at [facility], and was told she likely had a UTI and was discharged home on antibiotics. ??Has not been taking antibiotics consistently.??The pain has been constant??since 2 days ago??and occasionally radiates to??her umbilicus and right lower quadrant as well as her??left groin.??It is worse with posi tional changes such as standing up quickly, and occasionally makes her feel short of breath and lightheaded. She felt nauseous at the time of pain onset and had three bouts of vomiting, but has not felt nauseous today. She often has left sided pain when she ovulates, but this pain feels significantly worse.??Reports??bloating??that has been ongoing for many months and she is??seen by her commissary agent about this.?? Had a recent colonoscopy??in the last??couple weeks which was normal.?? Shereports??occasional constipation??and??diarrhea,??has not??been passing flatus.?? She has a history of kidney stones,??and she reports this pain feels??very different.??She has a IUD in place and is taking progesterone??pills. She does not remember the last time she had a period. Currently sexuallyactive with one male partner, no history of STIs.?? Review of Systems Constitutional:??Reports subjective fever. Denies chills.?? Cardiovascular:??No chest pain, chest pressure or chest discomfort.?? Respiratory:??No shortness of breath. Gastrointestinal:??No nausea or vomiting. Reports left sided abdominal pain, diarrhea, constipation, and bloating. Genitourinary:??No dysuria. No urinary frequency or incontinence. Reports white??vaginal discharge she believes is yeast. Reports hematuria today.?? Physical Exam Vitals & Measurements T:??98.3?F?? HR:??97??(Peripheral)?? RR:??18?? BP:??114/77?? SpO2:??98%?? HT:??159??cm?? WT:??78.2??kg?? Constitutional:??Normal affect, no acute distress, well-developed.?? Respirations:??Normal exam, not labored.? Abdomen/GI:??Soft, moderately distended, no guarding, no rebound tenderness. Tenderness to palpation in bilateral lower quadrants.?? Gynecologic:?External Genitalia: normal exam, without lesions, without atrophic changes ??Vagina: normal support, no lesions, no discharge ??Cervix: no CMT, no cervical discharge. Possible nabothian cyst at 11 o'clock position on cervix. Mild erythema over anterior lip of cervix.?Uterus: Tenderness to palpation with abdominal hand on bimanual exam, anteverted ??Ovaries: Tenderness to palpation of adnexa bilaterally, no masses bilaterally Extremities:??No clubbing, cyanosis, or significant edema present.?? Skin:??No rash or jaundice. Normal for ethnicity. Neurological/Psychiatric:??Appearance appropriate, mood and affect stable. Assessment/Plan Assessment:??48-year-old G1, P1 who was seen for a consult in the emergency department for questionof ovarian torsion due to left lower quadrant pain x 2 days. No concern for ovarian torsion at thistime. Pain is more likely to be related??to gastroenteritis,??nephrolithiasis, or constipation. Pelvic ultrasound with left-sided simple 3.8 cm ovarian cyst,??no evidence of ovarian torsion.??CT/NG swab collected. Patient will follow-up??for regular gynecological care??at [facility]??[place].? Patient seen and discussed with Dr. Howard, attending physician, and Dr. Doyle,??PGY4 ?? Dr. Nuno Martin notified of recommendations ?? Abdominal pain (R10.9):?? - Unlikely to be??ovarian torsion - Vaginosis CT/NG collected - Return precautions given - Follow up for regular gynecological??care at [facility] - Consider interval imaging of ovarian cyst ?? OB History History?(1,0,0,1)? # 1 ?Baby 1 ?Outcome Date:??2006 ?Outcome or Result:?Gest Age:??37 weeks ? Outcome:??Live ? 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 Nodular goiter - monitoring Obstructive Sleep Apnea not on CPAP Osteoarthritis of hips, bilateral Osteoarthritis of right hip with labral tear Papillary thyroid carcinoma Tardive dyskinesia Type 2 diabetes mellitus Procedure/Surgical History Right thyroid lobectomy, unilateral; with or without isthmusectomy: 01/06/22 Subtotal Parathyroidectomy: 01/06/22 upper endoscopy 2013: 07/29/12 RUQ US , fatty liver and medullary nephrocalcinosis sleep study 2011 placement of port-a-cath, August 2010 fiberoptic bronchoscopy MRI brain , 2011 - chronic sinusitis, no brain path pathology sinus surgery Home Medications Albuterol/Ipratropium: 1 puffs, Inhalation, 4 times a day Amiloride: 10 mg = 2 tablet, By Mouth, Daily Atorvastatin: 1 tablet, By Mouth, Daily, DISCONTINUE ATORVASTSTIN 20MG Cetirizine: 1 tablet, By Mouth, Daily Colchicine: 1.8 mg = 3 tablet, By Mouth, Daily Cyclobenzaprine: 10 mg = 1 tablet, By Mouth, 3 times a day, PRN (Spasm) Docusate: 100 mg = 1 capsule, By Mouth, 2 times a day, PRN (for constipation) dulaglutide: 1.5 mg = 0.5 mL, Subcutaneous Injection, Every week, rotate injection sites Durable Medical Equipment (Contour Next test strips): See Instructions, check blood glucose 3 timesa day and a s needed. Dx code E 11.9 ??T2DM Durable Medical Equipment: See Instructions, use with lispro penDx: Type II diabetes Durable Medical Equipment (Microlet ??lancets): See Instructions, Check blood sugars 3 times a day.DX: ??DM II ?E11.9 Epinephrine: 0.3 mg, Intramuscular, Once Ferrous Gluconate: 324 mg = 1 tablet, By Mouth, 3 times a day fluticasone/umeclidinium/vilanterol: Inhalation, Daily Gabapentin: 600 mg = 1 tablet, By Mouth, 3 times a day galcanezumab: 120 mg, Subcutaneous Infusion, Every 28 days HydrOXYzine: 10 mg = 1 tablet, By Mouth, Daily at bedtime Immune Globulin Intramuscular: 20 GRAMS EVERY 3 WEEKS Insulin Lispro: See Instructions, take 15 minutes before ??meals, 3 times a dayif glucose levels:200-250: take 2 [id number]: take 4 [id number]: take 6 [id number]: take 8 tyemd933-101: take 10 [id number]: take 12 uniscall for glucose greater than 500 Lamotrigine: 200 mg = 1 tablet, By Mouth, Daily at bedtime Lamotrigine: 50 mg = 1 tablet, By Mouth, Daily Levonorgestrel: 52 mg = 1 each, Once Levothyroxine: See Instructions, 1 tablet By Mouth from sunday to sunday and 1.5 tablets on sunday Magnesium Oxide: 400 mg = 1 tablet, By Mouth, Daily Melatonin: 10 mg = 1 tablet, By Mouth, Daily at bedtime Metformin: 2 tablet, By Mouth, 2 times a day Montelukast: 1 tablet, By Mouth, Daily in PM Norethindrone: 0.35 mg, By Mouth, Daily Norethindrone: 0.35 mg = 1 tablet, By Mouth, Daily omalizumab: See Instructions, 300 mg Subcutaneous Injection Omeprazole: 40 mg = 1 capsule, By Mouth, 2 times a day Ondansetron: 4 mg = 1 tablet, By Mouth, Every 8 hours, PRN (as needed for nausea/vomiting) Oxcarbazepine: See Instructions, 1.5 tabs BID Oxcarbazepine: See Instructions, 900mg By Mouth twice a day PredniSONE: See Instructions, 1-2 tablet By Mouth Daily, PRN Topiramate: 50 mg = 1 tablet, By Mouth, 2 times a day, per neuro Venlafaxine: See Instructions, 75mg By Mouth Allergies Adhesive Bandage??(rash) Augmentin??(increases sx) Cats??(sneezing) Demerol HCl??(vomiting) Flonase??(rhinitis) NSAIDs Reglan??(double vision) azithromycin??(increases sx's) morphine??(vomiting) Social History Alcohol Use: Past. Type: Liquor. Binge drinking: No. Alcohol use interferes with work or home: No. Drinks more than intended: Yes. Others hurt by drinking: No. Electronic Cigarette/Vaping Electronic Cigarette Use: Never. Employment/School Status: Disabled. Exercise Self assessment: Fair condition. Regular exercise: No. Home/Environment Living situation: Home/Independent. Lives with: Children, Spouse. Other: son Eliseo. Nutrition/Health Diet: Calorie restricted. Caffeine intake amount: none. Feels highly stressed: Yes. Substance Abuse Use: Never. Tobacco Use: Never smoker. Family History Mother: Arrhythmia; Migraine Brother: ADHD - Attention deficit disorder with hyperactivity Son: Migraine Patient Instructions DIAGNOSIS: Viral illness Ovarian cyst ?? Your specific PATIENT CARE INSTRUCTIONS (what to do / when to return): You have a??viral illness.??Viral illnesses can cause fevers, chills, headaches,??vomiting, diarrhea,??cough, and shortness of breath.??Generally viruses??go away on their own.??They do not require antibiotic treatment.??The best way to treat??a viral illness is to ensure you??are eating and drinking enough, peeing and pooping a normal amount, and getting plenty of rest.??You may treat the symptoms of a viral illness using ibuprofen or Tylenol. ?? If you develop??any??worsening fevers that do not respond to Tylenol or ibuprofen,??shortness of breath,??copious vomiting or diarrhea,??or??you become unable to eat and drink and??are developing signs of dehydration, please return to the emergency department.?? You can feel free to reach out to your??primary care doctor??if you have any questions, comments, or concerns that are not emergent. ?? In addition to a probable viral illness, you do have an ovarian cyst.?? The CHILDREN'S LITERATURE PROFESSOR team does not seem to think that you have an ovarian torsion, but they would like you to see your CHILDREN'S LITERATURE PROFESSOR provider within the next couple of weeks for further evaluation. ??If you continue to have recurrent cyst, you may benefit from??surgical removal of your ovary which is called an oophorectomy. ?? Thank you for choosing [facility] and for allowing me to participate in your care. ?? MEDICATIONS (what medications you should start (or stop) taking): Tylenol as needed Ibuprofen as needed Zofran as needed for nausea Note * Merly Russell DO: PERFORM Event Display: Patient Education Leaflets Authored Date: [id number] Unknown Causes of Abdominal Pain (Adult) ?? [id number] Unknown Causes of Abdominal Pain (Adult) The exact cause of your belly (abdominal) pain is not clear. Your exam and tests don't suggest a dangerous cause at this time. This does not mean that this is something to worry about. Everyone likesto know the exact cause of the problem. But sometimes with belly pain, there is no clear-cut cause,and this could be a good thing. Your symptoms can be treated, and you should feel better.?? Your condition does not seem serious now. But sometimes the signs of a serious problem may take more time to appear. For this reason,??it's important for you to watch for any new symptoms, problems,??or if your condition gets worse. Over the next few days, the abdominal pain may come and go. Or it may be constant. Other common symptoms can include nausea and vomiting. Sometimes it can be difficult to tell if you feel nauseous. You may just feel bad and not connect that feeling to nausea. Constipation, diarrhea, and a fever maygo along with the pain. The pain may continue even if treated correctly over the following days. Depending on how things go, sometimes the cause can become clear and you may need more??or different treatment. You may also need other evaluations, medicines, or tests. Home care Your healthcare provider may prescribe medicine for pain, symptoms, or an infection. ??Follow the healthcare provider's instructions for taking these medicines. General care ??? Rest as much as you can until your next exam. No strenuous activities. ??? Try to not do anything that may have caused your symptoms. This might be not taking any medicines unless otherwise directed by your healthcare provider. It might be not eating certain foods or doing certain activities. ??? Find positions that ease discomfort. A small pillow placed on your belly may help relieve pain. ??? Something warm on your belly, such as a heating pad, may help, but be careful not to burn yourself. Diet ??? Don???t??force yourself to eat, especially if having cramps, vomiting, or diarrhea. ??? Water is important so you don't get dehydrated. Soup may also be good. Sports drinks may also help, especially if they are not too acidic. Don't drink sugary drinks as this can make things worse. Take liquids in small amounts. Don???t??guzzle them. ??? Caffeine sometimes makes the pain and cramping worse. ??? Don???t take??dairy products if you have vomiting or diarrhea. ??? Don't eat large amounts at a time. Eat several small meals during the day instead of 2 or 3 larger meals. Wait a few minutesbetween bites. ??? Eat a diet low in fiber (called a low-residue diet). Foods allowed include refined breads, white rice, fruit and vegetable juices without pulp, tender meats. These foods will pass more easily through the intestine. ??? Don???t have??whole-grain foods, whole fruits and vegetables,meats, seeds, and nuts, fried or fatty foods, dairy, alcohol and spicy foods until your symptoms goaway. ?? Follow-up care Follow up with your healthcare provider, or as advised, if your pain does not begin to improve in the next 24 hours. ?? Call 911 Call?? 911 if any of these occur: ??? Trouble breathing ??? Confusion ??? Fainting or loss of consciousness ??? Rapid heart rate ??? Seizure ?? When to get medical advice Call your healthcare provider right away if any of these occur: ??? Pain gets worse or moves to theright lower abdomen ??? Vomiting or diarrhea that is new or gets worse ??? Swelling of the abdomen ??? Unable to pass stool for more than??3 days ??? Fever of 100.4??F (38??C) or higher, or as directed by your healthcare provider ??? Blood in vomit or bowel movements (dark red or black color) ??? Y ellow color of eyes and skin (jaundice) ??? Weakness, dizziness ??? Chest, arm, back, neck, or jaw pain ??? Can't keep down medicines, liquids, or water because of too much vomiting ??? If you have avagina: unexpected vaginal bleeding or missed period ?? Last Reviewed Date: 2024 ?? The [employer]. All rights reserved. This information is not intended as a substitute for professional medical care. Always follow your healthcare professional's instructions. ?? Patient Care team information Care Team Personnel Name: Marisa CHAIDEZ, Neto Osorio Position: [facility] Renal MD Member Role: [employer] Consulting Physician Address: [address] [place] [address] [address] [facility] [address]- [place] Telecom: Name: Lore Clinton RN Position: [facility] AMB Nurse Member Role: Primary Care Nurse Name: Chris Rosenbaum MD Position: [facility] CHILDREN'S LITERATURE PROFESSOR MD Member Role: [employer] CHILDREN'S LITERATURE PROFESSOR Physician Address: [address] [place], [place] [id number] [facility] [place] [address]- Telecom: Name: Miles OTOOLE, Bernie Hardy Position: [facility] PCO Associate Professional Member Role: PCP Address: [address] [place] [address]- [place] Telecom: Name: Gregg Hardy MD Position: [facility] Pulmonary MD Member Role: [employer] Consulting Physician Address: [address] [place] [address]- [place] Telecom: Care Team Related Persons Name: ONDINA SINGLETARY Name: EMBER LEE Name: BLAIRE JACOB Insurance Providers Guarantor name: HEMANT LEE Health Plan Information #: 1 [facility] Member Number: [id number] Policy Number: NA Group Number: NA Health Plan Information #: 2 Payer: MEDICARE PART B OUTPT Member Number: [id number] Policy Number: NA Group Number: NA
--- OUTSIDE RECORDS SUMMARY | 2024-07-16 19:19 | XMS_ITS | Referral Summary ---
Author Organization [facility] Address [address] [place] [address] Care Team Providers Care Transfer Agent Name Role Phone Bernie Aquino Primary Care Provider [phone] Encounters Date Type Department Care Team Description 06/11/2024 Refill [facility] [address] [place] [id number] Class A Regional Truck Driver: Gwen Pitts MA 06/09/2024 Refill [facility] [address] [place] [phone] Class A Regional Truck Driver: Ginger Ness 06/09/2024 Telephone [facility] [address] [place] [phone] Class A Regional Truck Driver: Stefany Ramirez LPN 06/04/2024 Telephone [facility] [address] [place] [phone] Class A Regional Truck Driver: Stefany Ramirez LPN 05/12/2024 Telephone [facility] [address] [place] [phone] Class A Regional Truck Driver: Stefany Ramirez LPN 05/02/2024 Telephone [facility] [address] [place] [phone] Class A Regional Truck Driver: Sari Workman Telephone Intake, Staff PAC Patient [...] Description 11/18/2024 10:30 AM EDT Office Visit [facility] [address] [place] [address] Class A Regional Truck Driver: Adrienne Gutiérrez MD [address] [place] [phone] Procedures * Due to [place] [employer] law, this organization might not be sharing negative HIV tests. Procedure Name Priority Date/Time Associated Diagnosis Comments COMPREHENSIVE METABOLIC PANEL Routine 04/20/2023 9:56 AM EST Chronic migraine without aura without status migrainosus, not intractable HM DIABETES EYE EXAM 11/10/2021 from Last 3 Months or Most Recently Relevant to Health Maintenance Results * Due to [facility] law, this organization might not be sharing negative HIV tests. * (ABNORMAL) Comprehensive Metabolic Panel (04/20/2023 9:56 AM EST) NA 141 135 - 145 mmol/L 04/20/2023 11:01 AM EST [facility] K 3.6 3.5 - 5.3 mmol/L 04/20/2023 11:01 AM EST [facility] Cl 107 97 - 110 mmol/L 04/20/2023 11:01 AM [facility] CO2 21(L) 24 - 32 mmol/L 04/20/2023 11:01 AM [facility] Anion Gap 13 5 - 15 04/20/2023 11:01 AM [facility] Glucose 139(H) 70 - 99 mg/dL 04/20/2023 11:01 AM [facility] Creatinine 0.89 0.50 - 1.20 mg/dL 04/20/2023 11:01 AM [facility] Calcium 9.1 8.7 - 10.7 mg/dL 04/20/2023 11:01 AM [facility] Total Protein 7.1 6.0 - 8.0 g/dL 04/20/2023 11:01 AM [facility] Albumin 4.4 3.5 - 4.8 g/dL 04/20/2023 11:01 AM [facility] Bilirubin, Total 0.2(L) 0.3 - 1.2 mg/dL 04/20/2023 11:01 AM [facility] Alkaline Phosphatase 115 30 - 115 U/L 04/20/2023 11:01 AM [facility] AST 14 10 - 40 U/L 04/20/2023 11:01 AM [facility] ALT 19 10 - 40 U/L 04/20/2023 11:01 AM [facility] BUN 19 7 - 23 mg/dL 04/20/2023 11:01 AM [facility] eGFR 81 >=60 mL/min/1. 73m2 04/20/2023 11:01 AM [facility] Comment:The estimated glomer ular [...] MD LAB BLOOD ORDERABLES Final R esult [facility] [address] [place] [address], * DIABETES EYE EXAM (11/10/2021) 11/10/2021 us Onbase Scan [facility] Final Resu lt from Last 3 Months or Most Recently Relevant to Health Maintenance Insurance MEDICARE [facility] OUT [facility] STATE [facility] Advance Directives Documents on File Type Date Recorded Patient Roller Stitcher Expl [facility] Care Proxy 02/14/2017 2:27 PM Care Teams Transfer Agent Relationship Specialty Start Date End Date Bernie Aquino [address] [place] [phone] PCP - General 08/22/21
--- OUTSIDE RECORDS SUMMARY | 2024-07-16 19:19 | XMS_ITS | Clinical Summary ---
Author Organization [facility] [place] Address [address] [place] [address] Care Team Providers Care Barrel Maker Name Role Phone Bernie Aquino [employer] SALES AGENT Primary Care Provider [phone] Allergies Active Allergy Reactions Criticality Noted Date [...] (four) hours if needed for headaches. Active dicyclomine (BENTYL) 10 mg capsuleIndications :Tenesmus Take 1 capsule (10 mg total) by mouth 3 (three) times a day. 270 each 3 07/11/19 25 026 Active cefpodoxime (VANTIN) 200 mg tablet Take 1 tablet (200 mg total) by mouth 2 (two) times a day for 10 days. 20 each 07/14/19 25 025 Active polyethylene glycol (COLYTE) 240-22.72-6.72 -5.84 gram [...] 3 (moderate) Elevated alkaline phosphatase level 03/21/2024 Overview (07/11/2024): +GGTP Normal AMA, SMAb, PRADIP, Alk Phos isoenzymes, lfts Liver bx 04/09/24 - acute inflammation and ductal involvement. Not consistent with PSC. ? Ascending cholangitis MRCP 05/06 - IMPRESSION: The liver appears enlarged but is otherwise unremarkable. Normal appearance of the biliary tree. Splenomegaly. Second opinion in process given abnormal liver bx (as of 07/11/24 appt) Normal colonoscopy 06/2024 r/u IBD due to elevated fecal kamron and question of PSC Assessment & Plan (07/11/2024 12:17 PM EST): Second opinion for liver bx [facility] 08/18/24 Repeat lfts today, alk phos has been trending down (157 06/13/24) Assessment & Plan (06/13/2024 5:01 PM EST): Orders: Hepatic function panel; Future CVID (common variable immunodeficiency) 03/10/20 24 Encounters Date Type Department Care Team Description 07/14/2024 Telephone Gastroenterology - [address] [place] [address] [phone] Merly Lyons [place] 07/13/2024 4:40 PM EST - 07/13/2024 10:59 PM EST Emergency [facility] Emergency [address] [place] [address] Urinary tract infection without hematuria, site unspecified (Primary Dx); Cyst of left ovary Discharge Disposition: Home or Self Care 07/11/2024 10:40 AM EST Office Visit Gastroenterology - [address] [phone] Leif Burciaga PA Elevated alkaline phosphatase level (Primary Dx); Bloating; Tenesmus; Nausea and vomiting, unspecified vomiting type 07/10/2024 Telephone Gastroenterology - [address] [place] [phone] Merly Lyons [place] 07/07/2024 12:05 PM EST - 07/07/2024 11:59 PM EST Hospital Encounter [facility] Xray [address] [place] [phone] Constipation, unspecified constipation type Discharge Disposition: Home or Self Care 07/01/2024 8:57 AM EST - 07/01/2024 11:59 PM EST Hospital Encounter [facility] Infusion Center [address] [facility] 2nd [place] [address] Deandre Schroeder MD CVID (common variable immunodeficiency) ([facility]) (Primary Dx) Discharge Disposition: Home or Self Care 06/30/2024 Telephone Gastroenterology - [address] [phone] Manda Seals MD 06/27/2024 7:41 AM EST Anesthesia Event [facility] Endoscopy [address] [place] [address] Silvia Brooks MD Couture, Alison, CRNA 06/27/2024 6:49 AM EST - 06/27/2024 11:59 PM EST Hospital Encounter [facility] Endoscopy [address] [place] [address] Manda Seals MD Couture, Alison, CRNA Kriz, Petra, MD Anemia; Elevated fecal calprotectin Discharge Disposition: Home or Self Care 06/24/2024 Telephone Gastroenterology - [address] [place] [phone] Merly Lyons [place] 06/20/2024 Telephone Gastroenterology - [address] [place] [phone] Leif Burciaga PA 06/20/2024 Telephone Gastroenterology - [address] [place] [phone] Manda Seals MD 06/19/2024 Telephone Gastroenterology - [address] [place] [phone] Manda Seals MD 06/18/2024 Telephone Gastroenterology - [address] [place] [phone] Leif Burciaga PA 06/17/2024 Telephone Gastroenterology - [address] [place] [phone] Merly Lyons [place] 06/13/2024 3:24 PM EST - 06/13/2024 11:59 PM EST Hospital Encounter [facility] Xray [address] [place] [address] Nausea; Generalized abdominal pain; Change in bowel habits Discharge Disposition: Home or Self Care 06/13/2024 2:20 PM EST Office Visit Gastroenterology - [address] [phone] Leif Burciaga PA Generalized abdominal pain (Primary Dx); Rectal bleeding; Nausea; Iron deficiency; Elevated alkaline phosphatase level; Change in bowel habits 06/11/2024 8:10 AM EST - 06/11/2024 11:59 PM EST Hospital Encounter [facility] Infusion Center [address] [place] [phone] Deandre Schroeder MD CVID (common variable immunodeficiency) (CMS/HCC) (Primary Dx) Discharge Disposition: Home or Self Care 06/09/2024 Telephone Gastroenterology - [address] [phone] Manda Seals MD 06/05/2024 7:41 AM EST - 06/05/2024 9:40 AM [facility] Emergency [address] [place] [phone] Mitesh Boyd MD Acute nonintractable headache, unspecified headache type (Primary Dx) Discharge Disposition: Home or Self Care 05/30/2024 Telephone Gastroenterology - [address] [phone] Tanika [place] 05/23/2024 Telephone Gastroenterology - [address] [phone] Tanika [place] 05/20/2024 3:32 AM EST - 05/20/2024 7:27 AM [facility] Emergency [address] [place] [phone] Ayush Reyes MD Generalized abdominal pain (Primary Dx); Nausea and vomiting, unspecified vomiting type Discharge Disposition: Home or Self Care 05/10/2024 4:46 AM EST - 05/10/2024 10:00 AM [facility] Emergency [address] [place] [phone] Mitesh Boyd MD Acute right-sided thoracic back pain (Primary Dx) Discharge Disposition: Home or Self Care 05/05/2024 8:21 AM EST - 05/05/2024 11:59 PM [facility] Infusion Center [address] [place] [phone] CVID (common variable immunodeficiency) (CMS/HCC) (Primary Dx) Discharge Disposition: Home or Self Care 05/04/2024 12:43 PM EST - 05/04/2024 6:50 PM EST Emergency [facility] Emergency [address] [place] [phone] Yoel Phelps MD Chest wall pain (Primary Dx) Discharge Disposition: Home or Self Care 04/29/2024 2:37 AM EST - 04/29/2024 9:06 AM EST Emergency [facility] Emergency [address] [place] [phone] Ayush Reyes MD Cauchon, Matthew C, DO Other migraine without status migrainosus, not intractable (Primary Dx) Discharge Disposition: Home or Self Care 04/28/2024 Telephone Gastroenterology - [address] [phone] Leif Burciaga PA 04/25/2024 3:48 PM EST - 04/25/2024 11:59 PM EST Hospital Encounter [facility] MRI [address] [place] [phone] Elevated alkaline phosphatase level; Elevated ALT measurement Discharge Disposition: Home or Self Care from Last 3 Months Surgical History Surgery Date Site/Laterality Comments COLONOSCOPY 08/12/2017 - 09/10/2017 10 yr ESOPHAGOGASTRODUODENOSCOPY 10/13/2023 - 11/11/2023 nl/fundic gland polyps ESOPHAGOGASTRODUODENOSCOPY 07/12/2021 - 08/11/2021 fundic gland polyps ESOPHAGOGASTRODUODENOSCOPY 06/14/2012 - 07/11/2012 mild chronic esophagitis on bx SECTION, LOW TRANSVERSE THYROID LOBECTOMY Right US, SOFT TISSUE HEAD OR NECK (THYROID,PARATHYROID,PAROTID) subtotal parathyroidectomy COLONOSCOPY W/ BIOPSIES 06/14/2024 - 07/11/2024 nl mucoa throughout, normal colonic mucosa on biopsy LIVER BIOPSY 03/14/2024 - 04/12/2024 acute inflammation with ductal reaction? ascending cholangitis, secondary WALTERS likely Medical History Medical History Date Comments Diabetes [...] Sign Reading Time Taken Comments Blood Pressure 111/76 07/13/2024 10:57 PM EST Pulse 96 07/13/2024 10:57 PM EST Temperature 36.9 ??C (98.5 ??F) 07/13/2024 10:[address] Respiratory Rate 20 07/13/2024 10:57 PM EST Oxygen Saturation 97% 07/13/2024 10:57 PM EST Inhaled Oxygen Concentration - - Weight 76.2 kg (168 lb) 07/13/2024 2:54 PM EST Height 162.6 cm (5' 4 ) 07/13/2024 2:54 PM EST Body Mass Index 28.84 07/13/2024 2:54 PM EST Plan of Treatment Upcoming Encounters Date Type Department Care Team (Late st Contact Info) Description 07/22/2024 9:00 AM EDT Appointment [facility] Infusion Center [address] [place] [phone] 07/30/2024 2:30 PM EDT Evaluation [facility] Speech Therapy [address] [place] [phone] Jessica Hull, [employer] PRODUCT TESTER 09/10/2024 9:10 AM EDT Office Visit Gastroenterology - [address] [place] [phone] Leif Burciaga PA [address] [place] [address] Health Maintenance Due Date Last Done Comments [...] 03/15/2024 Diabetes: Annual GFR (Glomerular Filtration Rate) 07/13/2025 07/13/2024, 06/04/2024, 05/19/2024, Additional history exists DTaP,Tdap,and Td Vaccines (4 [...] this topic Medical Devices Implanted Type Area Manager Supply Chain Device Identifier Shelf Expiration Date Model / Serial / Lot Sponge Surgifoam Gel 12 X 7mm - [id number] Implanted:Qty: 1 on 04/09/2024 by Daniele Reeder MD at [facility] Hemostasis N/A: Abdomen [employer] [id number] 1971 / / Procedures Procedure Name Priority Date/Time Associated Diagnosis Comments CT ABDOMEN PELVIS WO CONTRAST STAT 07/13/2024 7:40 PM EST POC , URINE DIAGNOSTIC STAT 07/13/2024 6:50 PM EST MCHUGH URINE CULTURE TUBE STAT 07/13/2024 3:07 PM EST URINALYSIS WITH REFLEX MICROSCOPIC AND CULTURE STAT 07/13/2024 3:07 PM EST CBC WITH AUTO DIFFERENTIAL STAT 07/13/2024 3:07 PM EST URINALYSIS WITH REFLEX MICROSCOPIC AND CULTURE STAT 07/13/2024 3:07 PM EST LIPASE STAT 07/13/2024 3:07 PM EST COMPREHENSIVE METABOLIC PANEL STAT 07/13/2024 3:07 PM EST CBC AND DIFFERENTIAL STAT 07/13/2024 3:07 PM EST CULTURE URINE STAT 07/13/2024 3:07 PM EST HEPATIC FUNCTION PANEL Routine 07/11/2024 11:19 AM EST Elevated alkaline phosphatase level XR ABDOMEN 1 VIEW Routine 07/07/2024 12: 22 PM EST Constipation, unspecified constipation type COLONOSCOPY Routine 06/27/2024 8:07 AM EST Anemia Elevated fecal calprotectin TISSUE EXAM Routine 06/27/2024 7:57 AM EST Anemia Elevated fecal calprotectin EXTERNAL ENDOSCOPY REPORT Routine 06/16/2024 1:13 PM EST CALPROTECTIN, STOOL Routine 06/14/2024 7 :51 AM EST Rectal bleeding XR ABDOMEN 1 VIEW Routine 06/13/2024 3:3 8 PM EST Nausea Generalized abdominal pain Change in bowel habits HEPATIC FUNCTION PANEL Routine 06/13/2024 3:08 PM EST Nausea Elevated alkaline phosphatase [...] Elevated alkaline phosphatase level Elevated ALT measurement from Last 3 Months Results * CT Abdomen Pelvis wo Contrast (07/13/2024 7:40 PM EST) Anatomical Region Laterality Modality Body Computed Tomogra phy 07/13/2024 7:51 PM EST Impressions 07/13/2024 7:51 PM EST 1. Bilateral medullary nephrocalcinosis without hydronephrosis. 2. Left ovarian cyst measuring 3.8 cm. This document has been electronically signed by: Raheem Jones MD on 07/13/2024 19:51:28 Narrative 07/13/2024 7:51 PM EST INDICATION: Flank pain, kidney stone suspected CT abdomen and pelvis without contrast Comparison: None Findings: The lung bases are clear. Hepatomegaly with steatosis. Distended gallbladder. No radiopaque gallstones Bilateral hypodense renal cysts. Bilateral medullary nephrocalcinosis with innumerable calcifications along the renal medullary pyramids. No significant hydronephrosis. No bowel obstruction, pneumoperitoneum, or pneumatosis. Postsurgical abdominal wall changes with anchor clips. IUD in the uterine fundus. Left ovarian cyst measuring 3.8 cm. Scattered appendicolith without evidence for appendicitis. The bones are intact. Procedure Note Raheem Jones MD - 07/13/2024 INDICATION: Flank pain, kidney stone suspected CT abdomen and pelvis without contrast Comparison: None Findings: The lung bases are clear. Hepatomegaly with steatosis. Distended gallbladder. No radiopaque gallstones Bilateral hypodense renal cysts. Bilateral medullary nephrocalcinosis with innumerable calcificationsalong the renal medullary pyramids. No significant hydronephrosis. No bowel obstruction, pneumoperitoneum, or pneumatosis. Postsurgical abdominal wall changes with anchor clips. IUD in the uterine fundus. Left ovarian cyst measuring 3.8 cm. Scattered appendicolith without evidence for appendicitis. The bones are intact. IMPRESSION: 1. Bilateral medullary nephrocalcinosis without hydronephrosis. 2. Left ovarian cyst measuring 3.8 cm. This document has been electronically signed by: Raheem Jones MD on 07/13/2024 19:51:[address] PROCEDURES Final Result * POC , urine manually resulted (07/13/2024 6:50 PM EST) Only the most recent of2 resultswithin the time period is included. [facility] HCG, Ur POC Negative Negative POC hCG Int QC Pass? Yes Yes EXPIRATION DATE POC LOT NUMBER POC [id number] Urine Urine specimen obtained by clean catch procedure / Unknown 07/13/2024 6:50 PM EST Florin STANTON POINT OF CARE TEST ENTER /EDIT ORDERABLES Final Result * (ABNORMAL) Urinalysis with reflex microscopic and culture (07/13/2024 3:07 PM EST) Only the most recent of2 resultswithin the time period is included. Pathologist [facility] Specific [place] Urine 1.011 1.003 - 1.030 LAB URINALYSIS - AUTOMATED METHOD 07/13/2024 3:58 PM [facility] pH, Urine 6.5 5.0 - 8.0 pH LAB URINALYSIS - AUTOMATED METHOD 07/13/2024 3:58 PM [facility] Leukocytes, Urine Moderate(A) Negative LAB URINALYSIS - AUTOMATED METHOD 07/13/2024 3:58 PM [facility] Nitrite, Urine Negative Negative LAB URINALYSIS - AUTOMATED METHOD 07/13/2024 3:58 PM [facility] Protein, Urine Negative <=Trace mg/dL LAB URINALYSIS - AUTOMATED METHOD 07/13/2024 3:58 PM [facility] Glucose, Urine Negative Negative mg/dL LAB URINALYSIS - AUTOMATED METHOD 07/13/2024 3:58 PM [facility] Ketones, Urine Negative Negative mg/dL LAB URINALYSIS - AUTOMATED METHOD 07/13/2024 3:58 PM [facility] Urobilinogen , Urine 0.2 0.2 - 1.0 mg/dL LAB URINALYSIS - AUTOMATED METHOD 07/13/2024 3:58 PM [facility] Bilirubin, Urine Negative Negative LAB URINALYSIS - AUTOMATED METHOD 07/13/2024 3:58 PM [facility] Blood, Urine Small(A) Negative LAB URINALYSIS - AUTOMATED METHOD 07/13/2024 3:58 PM [facility] RBC, Urine 2.0 0 - 4 /HPF LAB URINALYSIS - AUTOMATED METHOD 07/13/2024 3:58 PM [facility] WBC, Urine 20.2(H) 0 - 4 /HPF LAB URINALYSIS - AUTOMATED METHOD 07/13/2024 3:58 PM [facility] Squamous Epithelial, Urine 4 0 - 60 /LPF LAB URINALYSIS - AUTOMATED METHOD 07/13/2024 3:58 PM [facility] Bacteria, Urine Negative Negative /HPF LAB URINALYSIS - AUTOMATED METHOD 07/13/2024 3:58 PM EST [facility] Hyaline Casts, Urine 0.0 0 - 3 /LPF LAB URINALYSIS - AUTOMATED METHOD 07/13/2024 3:58 PM [facility] Urine Urine specimen obtained by clean catch procedure / Unknown Non-blood Collection / Unknown 07/13/2024 3:07 PM EST 07/13/2024 3:50 PM EST Mitesh Boyd MD LAB URINE ORDERABLES Jie l Result [facility] [address] [place] [address], [place] [phone] * Mchugh urine culture tube (07/13/2024 3:07 PM EST) Only the most recent of2 resultswithin the time period is included. Pathologist [facility] Extra Tube Hold for add-ons. 07/13/2024 5:01 PM EST [facility] Comment:Auto resulted. Urine Urine specimen obtained by clean catch procedure / Unknown Non-blood Collection / Unknown 07/13/2024 3:07 PM EST 07/13/2024 3:50 PM EST Mitesh Boyd MD LAB URINE ORDERABLES Jie l Result [facility] [address] [place] [address], [place] [phone] * (ABNORMAL) CBC auto differential (07/13/2024 3:07 PM EST) Only the most recent of6 resultswithin the time period is included. WBC 8.6 4.8 - 10.8 K/[facility] LAB HEMETOLOGY METHOD 07/13/2024 3:59 PM [facility] RBC 5.90(H) 3.80 - 4.80 M/mcL LAB HEMETOLOGY METHOD 07/13/2024 3:59 PM [facility] Hemoglobin 11.7 11.5 - 16.0 g/dL LAB HEMETOLOGY METHOD 07/13/2024 3:59 PM [facility] Hematocrit 41.9 35.0 - 47.0 % LAB HEMETOLOGY METHOD 07/13/2024 3:59 PM [facility] MCV 70.9(L) 79.0 - 98.0 FL LAB HEMETOLOGY METHOD 07/13/2024 3:59 PM [facility] MCH 19.8(L) 27.0 - 32.0 pcg LAB HEMETOLOGY METHOD 07/13/2024 3:59 PM [facility] MCHC 27.9(L) 32.0 - 37.0 g/dL LAB HEMETOLOGY METHOD 07/13/2024 3:59 PM [facility] RDW 20.7(H) 11.0 - 15.0 % LAB HEMETOLOGY METHOD 07/13/2024 3:59 PM [facility] Platelets 398 130 - 400 K/mcL LAB HEMETOLOGY METHOD 07/13/2024 3:59 PM [facility] MPV 10.2 7.0 - 11.0 FL LAB HEMETOLOGY METHOD 07/13/2024 3:59 PM [facility] NRBC 0.0 <1.0 % LAB HEMETOLOGY METHOD 07/13/2024 3:59 PM [facility] NRBC Absolute 0.00 <0.10 K/mcL LAB HEMETOLOGY METHOD 07/13/2024 3:59 PM [facility] Neutrophils Relative 61.9 % LAB HEMETOLOGY METHOD 07/13/2024 3:59 PM [facility] Lymphocytes Relative 24.6 % LAB HEMETOLOGY METHOD 07/13/2024 3:59 PM [facility] Monocytes Relative 8.9 % LAB HEMETOLOGY METHOD 07/13/2024 3:59 PM EST [facility] Eosinophils Relative 2.8 % LAB HEMETOLOGY METHOD 07/13/2024 3:59 PM [facility] Basophils Relative 1.4 % LAB HEMETOLOGY METHOD 07/13/2024 3:59 PM [facility] Immature Granulocytes Relative 0.4 % LAB HEMETOLOGY METHOD 07/13/2024 3:59 PM [facility] Neutrophils Absolute 5.30 1.50 - 7.00 K/mcL LAB HEMETOLOGY METHOD 07/13/2024 3:59 PM [facility] Lymphocytes Absolute 2.10 1.00 - 5.00 K/mcL LAB HEMETOLOGY METHOD 07/13/2024 3:59 PM [facility] Monocytes Absolute 0.76 0.20 - 1.00 K/mcL LAB HEMETOLOGY METHOD 07/13/2024 3:59 PM [facility] Eosinophils Absolute 0.24 0.00 - 0.50 K/mcL LAB HEMETOLOGY METHOD 07/13/2024 3:59 PM [facility] Basophils Absolute 0.12 0.00 - 0.20 K/mcL LAB HEMETOLOGY METHOD 07/13/2024 3:59 PM [facility] Immature Granulocytes Absolute 0.03 0.00 - 0.03 K/mcL LAB HEMETOLOGY METHOD 07/13/2024 3:59 PM [facility] Blood Venous blood specimen / Unknown Venipuncture / Unknown 07/13/2024 3:07 PM EST 07/13/2024 3:50 PM EST us Mitesh Boyd MD LAB BLOOD ORDERABLES Jie l Result [facility] [address] [place] [address], [place] [phone] * Culture urine (07/13/2024 3:07 PM EST) Only the most recent of2 resultswithin the time period is included. Pathologist [facility] Culture, Urine No growth 07/14/2024 12:02 PM EST [facility] Urine Urine specimen obtained by clean catch procedure / Unknown Non-blood Collection / Unknown 07/13/2024 3:07 PM EST 07/13/2024 3:58 PM EST Mitesh Boyd MD LAB MICROBIOLOGY - GENERA L ORDERABLES Final Result Performing Organization Address [facility]/ZIP Co de Phone Number [facility] [address] [place] [address], * Lipase (07/13/2024 3:07 PM EST) Only the most recent of3 resultswithin the time period is included. [facility] Lipase 70 13 - 75 unit/L LAB CHEMISTRY METHOD 07/13/2024 4:26 PM EST [facility] Blood Venous blood specimen / Unknown Venipuncture / Unknown 07/13/2024 3:07 PM EST 07/13/2024 3:50 PM EST Mitesh Boyd MD LAB BLOOD ORDERABLES Jie l Result Performing Organization Address City/[facility]/ZIP Co de Phone Number [facility] [address] [place] [address], [place] [phone] * (ABNORMAL) Comprehensive metabolic panel (07/13/2024 3:07 PM EST) Only the most recent of3 resultswithin the time period is included. Pathologist [facility] Sodium 140 133 - 145 mmol/L LAB CHEMISTRY METHOD 07/13/2024 4:26 PM EST [facility] Potassium 3.7 3.5 - 5.5 mmol/L LAB CHEMISTRY METHOD 07/13/2024 4:26 PM [facility] Chloride 110 96 - 110 mmol/L LAB CHEMISTRY METHOD 07/13/2024 4:26 PM [facility] CO2 21 21 - 32 mmol/L LAB CHEMISTRY METHOD 07/13/2024 4:26 PM [facility] Anion Gap 9 3 - 11 LAB CHEMISTRY METHOD 07/13/2024 4:26 PM [facility] Glucose 171(H) 70 - 100 mg/dL LAB CHEMISTRY METHOD 07/13/2024 4:26 PM [facility] BUN 13 5 - 25 mg/dL LAB CHEMISTRY METHOD 07/13/2024 4:26 PM [facility] Creatinine 1.08 0.50 - 1.10 mg/dL LAB CHEMISTRY METHOD 07/13/2024 4:26 PM [facility] eGFR 63 >=60 mL/min/1. 73m2 LAB CHEMISTRY METHOD 07/13/2024 4:26 PM [facility] Comment:Calculation based on the??Chronic Kidney Disease Epidemiology Collaboration (CKD-EPI) equation refit??without adjustment for race. BUN/Creatinine Ratio 12.0 LAB CHEMISTRY METHOD 07/13/2024 4:26 PM [facility] Calcium 8.9 8.5 - 10.5 mg/dL LAB CHEMISTRY METHOD 07/13/2024 4:26 PM [facility] AST (SGOT) 33 10 - 42 unit/L LAB CHEMISTRY METHOD 07/13/2024 4:26 PM [facility] ALT (SGPT) 38 10 - 60 unit/L LAB CHEMISTRY METHOD 07/13/2024 4:26 PM [facility] Alkaline Phosphatase 158(H) 42 - 121 unit/L LAB CHEMISTRY METHOD 07/13/2024 4:26 PM [facility] Total Protein 7.3 6.0 - 8.0 g/dL LAB CHEMISTRY METHOD 07/13/2024 4:26 PM EST [facility] Albumin 3.7 3.2 - 5.0 g/dL LAB CHEMISTRY METHOD 07/13/2024 4:26 PM EST [facility] Total Bilirubin 0.3 0.0 - 1.4 mg/dL LAB CHEMISTRY METHOD 07/13/2024 4:26 PM [facility] Blood Venous blood specimen / Unknown Venipuncture / Unknown 07/13/2024 3:07 PM EST 07/13/2024 3:50 PM EST us Mitesh Boyd MD LAB BLOOD ORDERABLES Jie mcclure Result [facility] [address] [place] [address], [place] [phone] * (ABNORMAL) Hepatic function panel (07/11/2024 11:19 AM EST) Only the most recent of2 resultswithin the time period is included. Total Protein 7.4 6.0 - 8.0 g/dL LAB CHEMISTRY METHOD 07/11/2024 4:30 PM [facility] Albumin 3.8 3.2 - 5.0 g/dL LAB CHEMISTRY METHOD 07/11/2024 4:30 PM [facility] Total Bilirubin 0.2 0.0 - 1.4 mg/dL LAB CHEMISTRY METHOD 07/11/2024 4:30 PM [facility] Bilirubin, Direct <0.1 0.0 - 0.3 mg/dL LAB CHEMISTRY METHOD 07/11/2024 4:30 PM [facility] Bilirubin, Indirect LAB CHEMISTRY METHOD 07/11/2024 4:30 PM [facility] Comment:Unable to calculate Indirect Bilirubin. ALT (SGPT) 35 10 - 60 unit/L LAB CHEMISTRY METHOD 07/11/2024 4:30 PM [facility] AST (SGOT) 24 10 - 42 unit/L LAB CHEMISTRY METHOD 07/11/2024 4:30 PM EST [facility] Alkaline Phosphatase 142(H) 42 - 121 unit/L LAB CHEMISTRY METHOD 07/11/2024 4:30 PM EST [facility] Blood Venous blood specimen / Unknown Venipuncture / Unknown 07/11/2024 11:19 AM EST 07/11/2024 12:46 PM EST us Leif TSANTON LAB BLOOD ORDERABLES Final R esult [facility] [address] [place] [address], [place] [phone] * XR Abdomen 1 View (07/07/2024 12:22 PM EST) Only the most recent of2 resultswithin the time period is included. Anatomical Region Laterality Modality Body Radiographic Viki ging 07/10/2024 11:2 7 AM EST Impressions 07/10/2024 11:31 AM EST Nonspecific bowel gas pattern overall unchanged from the prior study. No significant fecal retention. No significant change from the prior study. -------- FINAL REPORT -------- Dictated By: Della Stout Dictated Date: 07/10/2024 11:27 ET Assigned Physician: Della Stout Reviewed and Electronically Signed By: Della Stout Signed Date: 07/10/2024 11:31 ET Workstation ID: [id number] Transcribed By: Self Edit Transcribed Date: 07/10/2024 11:27 ET Narrative 07/10/2024 11:31 AM EST INDICATION: Chronic constipation FINDINGS: Single view of the abdomen was obtained. Compared to multiple prior studies most recent from June 13, 2024. CT scan of the abdomen and pelvis from April 02, 2024 reviewed. Air-filled bowel loops within the central abdomen greater towards the right side are similar to the prior studies and likely represent air-filled right colon as well as portions of the redundant sigmoid colon. No definite air-filled dilated loops of small bowel. Mild amount of fecal material noted within the left side of the abdomen. Mesh anchors noted throughout the central abdomen. IUD noted within the pelvis. No abnormal calcifications are noted. Nephrolithiasis noted on the prior study as well as a prior CAT scan not as well visualized presently likely secondary to overlying bowel gas and/or slight motion. Bony structures are normal for the patient's age. Procedure Note Della Stout MD - 07/10/2024 INDICATION: Chronic constipation FINDINGS: Single view of the abdomen was obtained. Compared to multipleprior studies most recent from June 13, 2024. CT scan of the abdomenand pelvis from April 02, 2024 reviewed. Air-filled bowel loops within the central abdomen greater towards theright side are similar to the prior studies and likely representair-filled right colon as well as portions of the redundant sigmoid colon.No definite air-filled dilated loops of small bowel. Mild amount of fecalmaterial noted within the left side of the abdomen. Mesh anchors noted throughout the central abdomen. IUD noted within the pelvis. No abnormal calcifications are noted. Nephrolithiasis noted on the priorstudy as well as a prior CAT scan not as well visualized presently likelysecondary to overlying bowel gas and/or slight motion. Bony structures are normal for the patient's age. IMPRESSION: Nonspecific bowel gas pattern overall unchanged from the prior study. Nosignificant fecal retention. No significant change from the prior study. -------- FINAL REPORT -------- Dictated By: Della Stout Dictated Date: 07/10/2024 11:27 ET Assigned Physician: Della Stout Reviewed and Electronically Signed By: Della Stout Signed Date: 07/10/2024 11:31 ET Workstation ID: [id number] Transcribed By: Self Edit Transcribed Date: 07/10/2024 11:27 ET Manda Seals MD IMG XR PROCEDURES Final Result * COLONOSCOPY Anesthesia - MAC; [facility] ENDOSCOPY (06/27/2024 8:07 AM EST) Anatomical [...] ? purposes. Narrative 06/27/2024 8:09 AM EST [facility] GI Patient Name: Meredith Garcia Procedure Date: [...] Procedure Code(s): ? --- Professional --- ? 85504, Colonoscopy, flexible; with biopsy, single or ? multiple Diagnosis Code(s): ? --- Professional --- ? R19.7, Diarrhea, unspecified CPT copyright 2020 [employer]. All rights reserved. The codes documented in this report are preliminary and upon materials clerk review may be revised to meet current compliance requirements. Manda Seals MD 06/27/2024 8:09:30 AM This report has been signed electronically.Manda Seals MD Number of Addenda: 0 Note Initiated On: 06/27/2024 7:44 AM Scope In: Scope Out: ? Endoscopy Department at [facility] - [address] [place] [address], ? [place] [address] Procedure Note Manda Seals MD - 06/27/2024 [facility] GI Patient Name: Meredith Garcia Procedure Date: [...] not prolapse). Procedure Code(s): --- Professional --- 03053, Colonoscopy, flexible; with biopsy, singleor multiple Diagnosis Code(s): --- Professional --- R19.7, Diarrhea, unspecified CPT copyright 2020 [employer]. All rights reserved. The codes documented in this report are preliminary and upon materials clerk reviewmay be revised to meet current compliance requirements. Manda Seals MD 06/27/2024 8:09:30 AM This report has been signed electronically.Manda Seals MD Number of Addenda: 0 Note Initiated On: 06/27/2024 7:44 AM Scope In: Scope Out: Endoscopy Department at [facility] - [address] [place] [id number] IMPRESSION: - The examined portion of the [...] change. No colitis identified. 06/30/2024 11:31 AM [facility] Gross Description A. Colon, [...] pieces, multiple levels. dvb/DG 06/30/2024 11:31 AM [facility] Disclaimer Unless otherwise specified, all tissue is 10% NB formalin fixed and paraffin embedded. 06/30/2024 11:31 AM [facility] Tissue Colon structure / Unknown 06/27/2024 7:57 AM EST 06/27/2024 9:36 AM EST Manda Seals MD LAB PATHOLOGY ORDERABLES Final Result [facility] [address] [place] [address], [place] [phone] * External Endoscopy (06/16/2024 1:13 PM EST) Anatomical Region Laterality Modality Endoscopy [facility] Provider GI~PROCEDURE ORDERABLES F inal Result * (ABNORMAL) Calprotectin, stool (06/14/2024 7:51 AM EST) Calprotectin, Fecal 516.0(H) <50 mcg/g 06/18/2024 12:51 PM EST [facility] Comment: <50 mcg/g ?Normal 50 - 120 mcg/g ?? Borderline >120 mcg/g ? Abnormal Borderline results suggest repeat testing in 4 to 6 weeks. Test performed at [facility], [address] [place], [place] ??[address] ? [phone] Ritika Nunes MD, PhD - Floor Molder Stool Rectum structure / Unknown Non-blood Collection / Unknown 06/14/2024 7:51 AM EST 06/14/2024 1:02 PM EST Manda Seals MD LAB BODY FLUIDS AND STOOLS ORD ERABLES Final Result [facility] [address] [place] [address] * CT Head wo Contrast (06/05/2024 8:53 AM EST) Anatomical Region Laterality Modality Head and Neck Computed Tomogra phy 06/05/2024 9:29 AM EST Impressions 06/05/2024 9:31 AM EST No acute intracranial findings. -------- FINAL REPORT -------- Dictated By: Raheem Dias Dictated Date: 06/05/2024 09:29 ET Assigned Physician: Raheem Dias Reviewed and Electronically Signed By: Raheem Dias Signed Date: 06/05/2024 09:31 ET Workstation ID: [id number] Transcribed By: Self Edit Transcribed Date: 06/05/2024 [...] Signed Date: 06/05/2024 09:31 ET Workstation ID: [id number] Transcribed By: Self Edit Transcribed Date: 06/05/2024 09:29 ET Karie STANTON IMG CT PROCEDURES Final Resul t * ECG-Annotated (06/05/2024) Only the most recent of3 resultswithin the time period is included. us Provider Onbase MD ECG ORDERABLES Final Result * ECG 12 lead (06/04/2024 9:37 PM EST) Only the most recent of4 resultswithin the time period is included. Ventricular Rate ECG 99 BPM GEMUSE Atrial Rate 99 BPM GEMUSE P-R Interval 162 ms GEMUSE QRS Duration 92 ms GEMUSE Q-T Interval 376 ms GEMUSE QTc 482 ms GEMUSE P Wave [place] 28 degrees GEMUSE R [place] 29 degrees GEMUSE T [place] 44 degrees GEMUSE ECG Interpretation Normal sinus rhythm Prolonged QT Abnormal ECG When compared with ECG of 04-MAY-2024 14:40, No significant change was found Confirmed by Jerome SALAS JOHN ([id number]) on 06/05/2024 10:56:55 AM GEMUSE 06/04/2024 9:37 PM EST 06/05/2024 10:56 AM EST Mitesh Boyd MD ECG ORDERABLES Final Res ult GEMUSE * (ABNORMAL) Magnesium (06/04/2024 9:30 PM EST) Only the most recent of3 resultswithin the time period is included. Magnesium 1.7(L) 1.9 - 2.6 mg/dL LAB CHEMISTRY METHOD 06/04/2024 10:42 PM [facility] Blood Venous blood specimen / Unknown Venipuncture / Unknown 06/04/2024 9:30 PM EST 06/04/2024 10:16 PM EST us Mitesh Boyd MD LAB BLOOD ORDERABLES Jie l Result [facility] [address] [place] [address], [place] [phone] * (ABNORMAL) Basic metabolic panel (06/04/2024 9:30 PM EST) Only the most recent of3 resultswithin the time period is included. Sodium 135 133 - 145 mmol/L LAB CHEMISTRY METHOD 06/04/2024 10:42 PM [facility] Potassium 4.0 3.5 - 5.5 mmol/L LAB CHEMISTRY METHOD 06/04/2024 10:42 PM [facility] Chloride 108 96 - 110 mmol/L LAB CHEMISTRY METHOD 06/04/2024 10:42 PM [facility] CO2 22 21 - 32 mmol/L LAB CHEMISTRY METHOD 06/04/2024 10:42 PM [facility] Anion Gap 5 3 - 11 LAB CHEMISTRY METHOD 06/04/2024 10:42 PM [facility] Glucose 197(H) 70 - 100 mg/dL LAB CHEMISTRY METHOD 06/04/2024 10:42 PM [facility] BUN 17 5 - 25 mg/dL LAB CHEMISTRY METHOD 06/04/2024 10:42 PM [facility] Creatinine 1.08 0.50 - 1.10 mg/dL LAB CHEMISTRY METHOD 06/04/2024 10:42 PM [facility] eGFR 63 >=60 mL/min/1. 73m2 LAB CHEMISTRY METHOD 06/04/2024 10:42 PM [facility] Comment:Calculation based on the??Chronic Kidney Disease Epidemiology Collaboration (CKD-EPI) equation refit??without adjustment for race. BUN/Creatinine Ratio 15.7 LAB CHEMISTRY METHOD 06/04/2024 10:42 PM EST [facility] Calcium 8.8 8.5 - 10.5 mg/dL LAB CHEMISTRY METHOD 06/04/2024 10:42 PM EST [facility] Blood Venous blood specimen / Unknown Venipuncture / Unknown 06/04/2024 9:30 PM EST 06/04/2024 10:16 PM EST us Mitesh Boyd MD LAB BLOOD ORDERABLES Jie l Result [facility]) [facility] [address] [place] [address], [place] [phone] * XR Chest 2 Views (05/20/2024 6:17 AM EST) Only the most recent of2 resultswithin the time period is included. Anatomical Region Laterality Modality Body Radiographic Viki ging 05/20/2024 6:50 AM EST Impressions 05/20/2024 6:52 AM EST No acute chest disease -------- FINAL REPORT -------- Dictated By: Terrence Yañez Dictated Date: 05/20/2024 06:50 ET Assigned Physician: Terrence Yañez Reviewed and Electronically Signed By: Terrence Yañez Signed Date: 05/20/2024 06:52 ET Workstation ID: [id number] Transcribed By: Self Edit Transcribed Date: 05/20/2024 [...] Signed Date: 05/20/2024 06:52 ET Workstation ID: [id number] Transcribed By: Self Edit Transcribed Date: 05/20/2024 06:50 ET us [facility] Neri Reyes MD IMLeslie XR PROCEDURES Final Result * XR Shoulder 2+ Views Right (05/10/2024 [...] Signed Date: 05/10/2024 08:36 ET Workstation ID: [id number] Transcribed By: Self Edit Transcribed Date: 05/10/2024 [...] Signed Date: 05/10/2024 08:36 ET Workstation ID: [id number] Transcribed By: Self Edit Transcribed Date: 05/10/2024 08:34 ET Camron STANTON IMG XR PROCEDURES Final R esult * Respiratory virus panel molecular study (05/04/2024 5:01 PM EST) Adenovirus Detection by PCR Not Detected Not Detected LAB MICROBIOLOGY METHOD 05/04/2024 5:58 PM EST [facility] Influenza A PCR Not Detected Not Detected LAB MICROBIOLOGY METHOD 05/04/2024 5:58 PM EST [facility] Influenza B PCR Not Detected Not Detected LAB MICROBIOLOGY METHOD 05/04/2024 5:58 PM EST [facility] Coronavirus 229E Not Detected Not Detected LAB MICROBIOLOGY METHOD 05/04/2024 5:58 PM EST [facility] Coronavirus HKU1 Not Detected Not Detected LAB MICROBIOLOGY METHOD 05/04/2024 5:58 PM EST [facility] Coronavirus OC43 Not Detected Not Detected LAB MICROBIOLOGY METHOD 05/04/2024 5:58 PM EST [facility] Coronavirus NL63 Not Detected Not Detected LAB MICROBIOLOGY METHOD 05/04/2024 5:58 PM EST [facility] Parainfluenza Virus 1 Not Detected Not Detected LAB MICROBIOLOGY METHOD 05/04/2024 5:58 PM EST [facility] Parainfluenza Virus 2 Not Detected Not Detected LAB MICROBIOLOGY METHOD 05/04/2024 5:58 PM [facility] Parainfluenza Virus 3 Not Detected Not Detected LAB MICROBIOLOGY METHOD 05/04/2024 5:58 PM EST [facility] Parainfluenza Virus 4 Not Detected Not Detected LAB MICROBIOLOGY METHOD 05/04/2024 5:58 PM EST [facility] RSV PCR Not Detected Not Detected LAB MICROBIOLOGY METHOD 05/04/2024 5:58 PM [facility] Human Metapneumovirus A and B Not Detected Not Detected LAB MICROBIOLOGY METHOD 05/04/2024 5:58 PM [facility] Rhinovirus/Entero virus Not Detected Not Detected LAB MICROBIOLOGY METHOD 05/04/2024 5:58 PM [facility] Bordetella pertussis Not Detected Not Detected LAB MICROBIOLOGY METHOD 05/04/2024 5:58 PM [facility] Bordetella parapertussis Not Detected Not Detected LAB MICROBIOLOGY METHOD 05/04/2024 5:58 PM [facility] Mycoplasma pneumo by PCR Not Detected Not Detected LAB MICROBIOLOGY METHOD 05/04/2024 5:58 PM [facility] Chlamydia pneumoniae Not Detected Not Detected LAB MICROBIOLOGY METHOD 05/04/2024 5:58 PM [facility] SARS COV-2 Not Detected Not Detected LAB MICROBIOLOGY METHOD 05/04/2024 5:58 PM [facility] Swab Both anterior nares / Unknown Non-blood Collection / Unknown 05/04/2024 5:01 PM EST 05/04/2024 5:08 PM EST [facility] - 05/04/2024 5:58 PM EST Testing was performed using the [employer] Respiratory Pathogen PCR Assay. All results must [...] that are below the limit of detection. Dory STANTON LAB MICROBIOLOGY - GEN ERAL ORDERABLES Final Result [facility] [address] [place] [address], * CT Angio Chest wo and/or w [...] Signed Date: 05/04/2024 16:00 ET Workstation ID: [id number] Transcribed By: Self Edit Transcribed Date: 05/04/2024 [...] Signed Date: 05/04/2024 16:00 ET Workstation ID: [id number] Transcribed By: Self Edit Transcribed Date: 05/04/2024 15:50 ET [address] IMG CT PROCEDURES Ije l Result * Troponin I high sensitivity (05/04/2024 1:13 PM EST) High Sensitivity Troponin I 5 <=54 ng/L LAB CHEMISTRY METHOD 05/04/2024 2:23 PM EST [facility] Blood Venous blood specimen / Unknown Venipuncture / Unknown 05/04/2024 1:13 PM EST 05/04/2024 1:51 PM EST Narrative [facility] - 05/04/2024 2:23 PM EST High levels of biotin in samples may falsely decrease hsTroponin values. ??Use caution when interpreting hsTroponin results in patients taking biotin who exhibit renal impairment (eGFR <60) or in patients taking more than 20 mg/day of biotin. TrovtrellsBrandcastPati PA LAB BLOOD ORDERABLES F inal Result Performing Organization Address [facility]/ZIP Co de Phone Number [facility] [address] [place] [address], [place] [phone] * B-type natriuretic peptide (05/04/2024 1:13 PM EST) BNP 2 <=100 pcg/mL LAB CHEMISTRY METHOD 05/04/2024 2:30 PM EST [facility] Blood Venous blood specimen / Unknown Venipuncture / Unknown 05/04/2024 1:13 PM EST 05/04/2024 1:51 PM EST Dory Emergent OnejoshBrandcastPati PA LAB BLOOD ORDERABLES F inal Result Performing Organization Address [facility]/ZIP Co de Phone Number [facility] [address] [place] [address], [place] [phone] * (ABNORMAL) POCT Glucose, blood (04/29/2024 12:01 AM EST) Pathologist [facility] Glucose POCT 136(H) 70 - 100 mg/dL 04/29/2024 12:01 AM EST [facility] Blood Capillary blood specimen / Unknown 04/29/2024 12:01 AM EST 04/29/2024 12:01 AM EST Generic Provider Poct LAB POINT OF CARE TEST DOCKED DEVICE UNSOLICITED RESULTS Final Result Performing Organization Address [facility]/ZIP Co de Phone Number [facility] [address] [place] [address], [place] [phone] * MR Abdomen wo and w Contrast [...] Signed Date: 04/28/2024 10:21 ET Workstation ID: [id number] Transcribed By: Self Edit Transcribed Date: 04/28/2024 [...] Signed Date: 04/28/2024 10:21 ET Workstation ID: [id number] Transcribed By: Self Edit Transcribed Date: 04/28/2024 10:09 ET Leif STANTON IMG MRI PROCEDURES Final Res ult from Last 3 Months Insurance MEDICARE [place] [facility] Advance Directives Documents on File Type Date Recorded 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
--- OUTSIDE RECORDS SUMMARY | 2024-07-16 19:19 | XMS_ITS | Encounter Summary ---
Author Organization [facility] Address [address] [place] [address] Phone Care Team Providers Care Artillery Meteorological Man Name Role Phone Unavailable Primary Care Provider Unavailabl e Encounter Details Date Type Department Care Team (Late st Contact Info) Description 01/25/2022 Telephone [facility] [address] [place] [address] Neto Cunningham MD Social History [...]
--- OUTSIDE RECORDS SUMMARY | 2024-07-16 19:19 | XMS_ITS | Encounter Summary ---
Author Organization [facility] Address [address] [place] [address] Phone Care Team Providers Care Extruding Press Operator Name Role Phone Unavailable Primary Care Provider Unavailabl e Encounter Details Date Type Department Care Team (Late st Contact Info) Description 01/02/2022 Telephone [facility] [address] [place] [address] Neto Cunningham MD Social History [...] on this issue. Has appt 01/10 in [place] office * Telephone Encounter - Alta Young [...] er visits. Please advise Thank you CB# [phone] documented in this encounter Plan of Treatment Not on file documented as of this encounter Visit Diagnoses Not on filedocumented in this encounter
--- OUTSIDE RECORDS SUMMARY | 2024-07-16 19:19 | XMS_ITS | Encounter Summary ---
Author Organization [facility] Address [address] [place] [address] Care Team Providers Care Bonsai Tender Name Role Phone Bernie Aquino OCEAN FISHING GUIDE Primary Care Provider Reason for Visit * Reason Comments Abdominal Pain Encounter Details Date Type Department Care Team (Late st Contact Info) Description 07/13/2024 4:40 PM EST - 07/13/2024 10:59 PM EST Emergency [facility] Emergency [address] [place] [address] Urinary tract infection without hematuria, site unspecified (Primary Dx); Cyst of left ovary Discharge Disposition: Home or Self Care Social [...] Mass Index 28.84 07/13/2024 2:54 PM EST documented in this encounter Functional [...] No 05/20/2024 3:30 AM LANCE Littlejohn, Denae Mcclure RN documented as of this encounter Mental Status * Because of a physical, mental, or emotional condition, do you have serious difficulty concentrating, remembering, or making decisions? (5 years old or older) Answer Entry Date Author No 05/20/2024 3:30 AM LANCE Littlejohn, Denae Mcclure RN documented in this encounter Medications at [...] 4 (four) hours if needed for headaches. cefpodoxime (VANTIN) 200 mg tablet Take 1 tablet (200 mg total) by mouth 2 (two) times a day for 10 days. 20 each 5 07/24/19 25 cetirizine (ZyrTEC) 10 mg tablet Take 1 tablet (10 mg total) by mouth 1 (one) time each day. 2 colchicine (COLCRYS) 0.6 mg tablet Take 3 tablets (1.8 mg total) by mouth 1 (one) time each day. Combivent Respimat 20-100 mcg/actuation inhaler INHALE 1 PUFF UP TO FOUR TIMES A DAY IF NEEDED dicyclomine (BENTYL) 10 mg capsuleIndications: Tenesmus Take 1 capsule (10 mg total) by mouth 3 (three) times a day. 270 each 3 5 07/11/19 26 docusate sodium (COLACE) 100 mg capsule take [...] syringe 5 documented as of this encounter Ordered Prescriptions Prescription Sig Dispense Quantity Refills Last Filled Start Date End Date cefpodoxime (VANTIN) 200 mg tablet Take 1 tablet (200 mg total) by mouth 2 (two) times a day for 10 days. 20 each 07/13/2024 07/23/2024 documented in this encounter Discharge Disposition Disposition Code Departure Means Destination Comment s Home or Self Care documented in this encounter Progress Notes * Alexia Starks RN - 07/13/2024 2:57 PM EST Comes in with C/O L lower abd pain x 1 hour. Patient also feels week and lethargic. Subjective fever of 99.8/101.3 she took at home. Took apap 2 hours. Denies diarrhea, but says she's been nauseous without vomiting. Also was told she has bilateral ovarian cysts. documented in this encounter Plan of Treatment Upcoming Encounters Date Type Department Care Team (Late st Contact Info) Description 07/22/2024 9:00 AM EDT Appointment [facility] [address] [place] [phone] 07/30/2024 2:30 PM EDT Evaluation [facility] Speech Therapy [address] [place] [phone] Jessica Hull, COMMUNICATIONS CONSULTANT 09/10/2024 9:10 AM EDT Office Visit Gastroenterology - [address] [place] [phone] Leif Burciaga PA [address] [place] [address] documented as of this encounter Procedures Procedure Name Priority Date/Time Associated Diagnosis Comments CT ABDOMEN PELVIS WO CONTRAST STAT 07/13/2024 7:40 PM EST POC , URINE DIAGNOSTIC STAT 07/13/2024 6:50 PM EST URINALYSIS WITH REFLEX MICROSCOPIC AND CULTURE STAT 07/13/2024 3:07 PM EST [facility] URINE CULTURE TUBE STAT 07/13/2024 3:07 PM EST CBC WITH AUTO DIFFERENTIAL STAT 07/13/2024 3:07 PM EST URINALYSIS WITH REFLEX MICROSCOPIC AND CULTURE STAT 07/13/2024 3:07 PM EST CBC AND DIFFERENTIAL STAT 07/13/2024 3:07 PM EST CULTURE URINE STAT 07/13/2024 3:07 PM EST LIPASE STAT 07/13/2024 3:07 PM EST COMPREHENSIVE METABOLIC PANEL STAT 07/13/2024 3:07 PM EST documented in this encounter Results * CT Abdomen Pelvis wo Contrast [...] by: Raheem Jones MD on 07/13/2024 19:51:[address] PROCEDURES Final Result * POC , urine manually resulted (07/13/2024 6:50 PM EST) [facility] HCG, Ur POC Negative Negative POC hCG Int QC Pass? Yes Yes EXPIRATION DATE POC LOT NUMBER POC [id number] Urine Urine specimen obtained by clean catch procedure / Unknown 07/13/2024 6:50 PM EST Stephany STANTON POINT OF CARE TEST ENTER /EDIT ORDERABLES Final Result * Culture urine (07/13/2024 3:07 PM EST) [facility] Culture, Urine No growth 07/14/2024 12:02 PM EST [facility] Urine Urine specimen obtained by clean catch procedure / Unknown Non-blood Collection / Unknown 07/13/2024 3:07 PM EST 07/13/2024 3:58 PM EST Mitesh Boyd MD LAB MICROBIOLOGY - GENERA L ORDERABLES Final Result [facility] [address] [place] [address], [place] [phone] * Mchugh urine culture tube (07/13/2024 3:07 PM EST) Extra Tube Hold for add-ons. 07/13/2024 5:01 PM [facility] Comment:Auto resulted. Urine Urine specimen obtained by clean catch procedure / Unknown Non-blood Collection / Unknown 07/13/2024 3:07 PM EST 07/13/2024 3:50 PM EST us Mitesh Boyd MD LAB URINE ORDERABLES Jie l Result [facility] [address] [place] [address], [place] [phone] * (ABNORMAL) Urinalysis with reflex microscopic and culture (07/13/2024 3:07 PM EST) Specific [place] Urine 1.011 1.003 - 1.030 LAB URINALYSIS - AUTOMATED METHOD 07/13/2024 3:58 PM [facility] pH, Urine 6.5 5.0 - 8.0 pH LAB URINALYSIS - AUTOMATED METHOD 07/13/2024 3:58 PM [facility] Leukocytes, Urine Moderate(A) Negative LAB URINALYSIS - AUTOMATED METHOD 07/13/2024 3:58 PM [facility] Nitrite, Urine Negative Negative LAB URINALYSIS - AUTOMATED METHOD 07/13/2024 3:58 PM [facility] Protein, Urine Negative <=Trace mg/dL LAB URINALYSIS - AUTOMATED METHOD 07/13/2024 3:58 PM [facility] Glucose, Urine Negative Negative mg/dL LAB URINALYSIS - AUTOMATED METHOD 07/13/2024 3:58 PM [facility] Ketones, Urine Negative Negative mg/dL LAB URINALYSIS - AUTOMATED METHOD 07/13/2024 3:58 PM [facility] Urobilinogen , Urine 0.2 0.2 - 1.0 mg/dL LAB URINALYSIS - AUTOMATED METHOD 07/13/2024 3:58 PM EST [facility] Bilirubin, Urine Negative Negative LAB URINALYSIS - AUTOMATED METHOD 07/13/2024 3:58 PM [facility] Blood, Urine Small(A) Negative LAB URINALYSIS - AUTOMATED METHOD 07/13/2024 3:58 PM [facility] RBC, Urine 2.0 0 - 4 /HPF LAB URINALYSIS - AUTOMATED METHOD 07/13/2024 3:58 PM [facility] WBC, Urine 20.2(H) 0 - 4 /HPF LAB URINALYSIS - AUTOMATED METHOD 07/13/2024 3:58 PM [facility] Squamous Epithelial, Urine 4 0 - 60 /LPF LAB URINALYSIS - AUTOMATED METHOD 07/13/2024 3:58 PM [facility] Bacteria, Urine Negative Negative /HPF LAB URINALYSIS - AUTOMATED METHOD 07/13/2024 3:58 PM [facility] Hyaline Casts, Urine 0.0 0 - 3 /LPF LAB URINALYSIS - AUTOMATED METHOD 07/13/2024 3:58 PM [facility] Urine Urine specimen obtained by clean catch procedure / Unknown Non-blood Collection / Unknown 07/13/2024 3:07 PM EST 07/13/2024 3:50 PM EST us Mitesh Boyd MD LAB URINE ORDERABLES Jie mcclure Result [facility] [address] [place] [address], * (ABNORMAL) CBC auto differential (07/13/2024 3:07 PM EST) WBC 8.6 4.8 - 10.8 K/mcL LAB HEMETOLOGY METHOD 07/13/2024 3:59 PM [facility] RBC 5.90(H) 3.80 - 4.80 M/mcL LAB HEMETOLOGY METHOD 07/13/2024 3:59 PM [facility] Hemoglobin 11.7 11.5 - 16.0 g/dL LAB HEMETOLOGY METHOD 07/13/2024 3:59 PM [facility] Hematocrit 41.9 35.0 - 47.0 % LAB HEMETOLOGY METHOD 07/13/2024 3:59 PM [facility] MCV 70.9(L) 79.0 - 98.0 FL LAB HEMETOLOGY METHOD 07/13/2024 3:59 PM [facility] MCH 19.8(L) 27.0 - 32.0 pcg LAB HEMETOLOGY METHOD 07/13/2024 3:59 PM [facility] MCHC 27.9(L) 32.0 - 37.0 g/dL LAB HEMETOLOGY METHOD 07/13/2024 3:59 PM [facility] RDW 20.7(H) 11.0 - 15.0 % LAB HEMETOLOGY METHOD 07/13/2024 3:59 PM [facility] Platelets 398 130 - 400 K/mcL LAB HEMETOLOGY METHOD 07/13/2024 3:59 PM [facility] MPV 10.2 7.0 - 11.0 FL LAB HEMETOLOGY METHOD 07/13/2024 3:59 PM [facility] NRBC 0.0 <1.0 % LAB HEMETOLOGY METHOD 07/13/2024 3:59 PM [facility] NRBC Absolute 0.00 <0.10 K/mcL LAB HEMETOLOGY METHOD 07/13/2024 3:59 PM [facility] Neutrophils Relative 61.9 % LAB HEMETOLOGY METHOD 07/13/2024 3:59 PM [facility] Lymphocytes Relative 24.6 % LAB HEMETOLOGY METHOD 07/13/2024 3:59 PM [facility] Monocytes Relative 8.9 % LAB HEMETOLOGY METHOD 07/13/2024 3:59 PM EST [facility] Eosinophils Relative 2.8 % LAB HEMETOLOGY METHOD 07/13/2024 3:59 PM [facility] Basophils Relative 1.4 % LAB HEMETOLOGY METHOD 07/13/2024 3:59 PM [facility] Immature Granulocytes Relative 0.4 % LAB HEMETOLOGY METHOD 07/13/2024 3:59 PM [facility] Neutrophils Absolute 5.30 1.50 - 7.00 K/mcL LAB HEMETOLOGY METHOD 07/13/2024 3:59 PM [facility] Lymphocytes Absolute 2.10 1.00 - 5.00 K/mcL LAB HEMETOLOGY METHOD 07/13/2024 3:59 PM [facility] Monocytes Absolute 0.76 0.20 - 1.00 K/mcL LAB HEMETOLOGY METHOD 07/13/2024 3:59 PM [facility] Eosinophils Absolute 0.24 0.00 - 0.50 K/mcL LAB HEMETOLOGY METHOD 07/13/2024 3:59 PM [facility] Basophils Absolute 0.12 0.00 - 0.20 K/mcL LAB HEMETOLOGY METHOD 07/13/2024 3:59 PM [facility] Immature Granulocytes Absolute 0.03 0.00 - 0.03 K/mcL LAB HEMETOLOGY METHOD 07/13/2024 3:59 PM [facility] Blood Venous blood specimen / Unknown Venipuncture / Unknown 07/13/2024 3:07 PM EST 07/13/2024 3:50 PM EST us Mitesh Boyd MD LAB BLOOD ORDERABLES Jie l Result [facility] [address] [place] [address], [place] [phone] * Lipase (07/13/2024 3:07 PM EST) Pathologist [facility] Lipase 70 13 - 75 unit/L LAB CHEMISTRY METHOD 07/13/2024 4:26 PM [facility] Blood Venous blood specimen / Unknown Venipuncture / Unknown 07/13/2024 3:07 PM EST 07/13/2024 3:50 PM EST us Mitesh Boyd MD LAB BLOOD ORDERABLES Jie l Result [facility] [address] [place] [address], [place] [phone] * (ABNORMAL) Comprehensive metabolic panel (07/13/2024 3:07 PM EST) [facility] Sodium 140 133 - 145 mmol/L LAB CHEMISTRY METHOD 07/13/2024 4:26 PM [facility] Potassium 3.7 3.5 - 5.5 mmol/L LAB CHEMISTRY METHOD 07/13/2024 4:26 PM [facility] Chloride 110 96 - 110 mmol/L LAB CHEMISTRY METHOD 07/13/2024 4:26 PM [facility] CO2 21 21 - 32 mmol/L LAB CHEMISTRY METHOD 07/13/2024 4:26 PM [facility] Anion Gap 9 3 - 11 LAB CHEMISTRY METHOD 07/13/2024 4:26 PM [facility] Glucose 171(H) 70 - 100 mg/dL LAB CHEMISTRY METHOD 07/13/2024 4:26 PM [facility] BUN 13 5 - 25 mg/dL LAB CHEMISTRY METHOD 07/13/2024 4:26 PM [facility] Creatinine 1.08 0.50 - 1.10 mg/dL LAB CHEMISTRY METHOD 07/13/2024 4:26 PM [facility] eGFR 63 >=60 mL/min/1. 73m2 LAB CHEMISTRY METHOD 07/13/2024 4:26 PM [facility] Comment:Calculation based on the??Chronic Kidney Disease Epidemiology Collaboration (CKD-EPI) equation refit??without adjustment for race. BUN/Creatinine Ratio 12.0 LAB CHEMISTRY METHOD 07/13/2024 4:26 PM [facility] Calcium 8.9 8.5 - 10.5 mg/dL LAB CHEMISTRY METHOD 07/13/2024 4:26 PM [facility] AST (SGOT) 33 10 - 42 unit/L LAB CHEMISTRY METHOD 07/13/2024 4:26 PM [facility] ALT (SGPT) 38 10 - 60 unit/L LAB CHEMISTRY METHOD 07/13/2024 4:26 PM [facility] Alkaline Phosphatase 158(H) 42 - 121 unit/L LAB CHEMISTRY METHOD 07/13/2024 4:26 PM [facility] Total Protein 7.3 6.0 - 8.0 g/dL LAB CHEMISTRY METHOD 07/13/2024 4:26 PM [facility] Albumin 3.7 3.2 - 5.0 g/dL LAB CHEMISTRY METHOD 07/13/2024 4:26 PM [facility] Total Bilirubin 0.3 0.0 - 1.4 mg/dL LAB CHEMISTRY METHOD 07/13/2024 4:26 PM [facility] Blood Venous blood specimen / Unknown Venipuncture / Unknown 07/13/2024 3:07 PM EST 07/13/2024 3:50 PM EST us Mitesh Boyd MD LAB BLOOD ORDERABLES Jie mcclure Result [facility] [address] [place] [address], [place] [phone] documented in this encounter Visit Diagnoses Diagnosis Urinary tract infection without hematuria, site unspecified- Primary Cyst of left ovary Other and unspecified ovarian cyst documented in this encounter Administered Medications Inactive Administered Medications - up to 3 most recent administrations Medication Order MAR Action Action Date Dose Rate Site cefTRIAXone (ROCEPHIN) 1 g in sterile water 10 mL IV syringe 1 g, intravenous, at 200 mL/hr, Administer over 3 Minutes, Once, On 07/13/24 at 1732, For 1 dose, Do not administer simultaneously with any calcium containing solutions via a Y-site in any patient., Indication: Urinary Tract/Genitourinary Given 07/13/2024 5:50 PM EST 1 g 200 mL/hr HYDROmorphone (PF) injection 0.5 mg 0.5 mg, intravenous, Once, On 07/13/24 at 1732, For 1 dose Given 07/13/2024 5:50 PM EST 0.5 mg sodium chloride 0.9 % bolus 1,000 mL 1,000 mL, intravenous, at 2,000 mL/hr, Administer over 30 Minutes, Once, On Sun07/13/24 at 1732, For 1 dose New Bag 07/13/2024 5:50 PM EST 1,000 mL 2000 mL/hr documented in this encounter Active and Recently Administered Medications Times are shown in EST. Scheduled Medication Order 07/11/2024 07/12/2024 07/13/2024 cefTRIAXone (ROCEPHIN) 1 g in sterile water 10 mL IV syringe (COMPLETED) 1 g, intravenous, at 200 mL/hr, Administer over 3 Minutes, Once, On 07/13/24 at 1732, For 1 dose, Do not administer simultaneously with any calcium containing solutions via a Y-site in any patient., Indication: Urinary Tract/Genitourinary 1749 (Given - Provid er: Mayela Bolanos RN) HYDROmorphone (PF) injection 0.5 mg (COMPLETED) 0.5 mg, intravenous, Once, On 07/13/24 at 1732, For 1 dose 1749 (Given - Provid er: Mayela Bolanos RN) sodium chloride 0.9 % bolus 1,000 mL (COMPLETED) 1,000 mL, intravenous, at 2,000 mL/hr, Administer over 30 Minutes, Once, On 07/13/24 at 1732, For 1 dose 175 (New Bag - Prov ider: Mayela Bolanos, KAELA)1820 (Stopped - Provider: Mayela Bolanos RN) documented in this encounter Care Teams Bonsai Tender Relationship Specialty Start Date End Date Bernie Aquino NP [address] [facility] [place] [address] PCP - General Family Medicine 10/05/21 documented as of this encounter
--- OUTSIDE RECORDS SUMMARY | 2024-07-16 19:19 | XMS_ITS | Encounter Summary ---
Author Organization [facility] Address [address] [place] [address] Phone Care Team Providers Care Mother Baby Rn Name Role Phone Unavailable Primary Care Provider Unavailabl e Encounter Details Date Type Department Care Team (Late st Contact Info) Description 07/05/2022 Telephone [facility] [address] [place] [address] Julee Stephens MA Social History [...] you to know the orders are at [facility]. documented in this encounter Plan of Treatment Not on file documented as of this encounter Visit Diagnoses Not on filedocumented in this encounter
--- OUTSIDE RECORDS SUMMARY | 2024-07-16 19:19 | XMS_ITS | Encounter Summary ---
Author Organization [facility] Address [address] [place] [address] Care Team Providers Care Women'S Ministry Director Name Role Phone Bernie Aquino SPORTS BETTING MANAGER Primary Care Provider [phone] Encounter Details Date Type Department Care Team (Late st Contact Info) Description 07/10/2024 Telephone Gastroenterology - [address] [place] [address] Merly Lyons MA Social History [...] No 05/20/2024 3:30 AM EST Denae Littlejohn L, RN * Do you have serious [...] Progress Notes * Merly Lyons MA - 07/10/2024 12:53 PM EST Spoke with pt per Dr martinez X-ray looked good. No abnormalities seen. No bowel obstruction. No significant constipation. Follow up in the office as scheduled. * Merly Lyons MA - 07/10/2024 12:53 PM EST ----- Message from Luis Martinez MD sent at 07/10/2024 12:45 PM EST ----- X-ray looked good. No abnormalities seen. No bowel obstruction. No significant constipation. Followup in the office as scheduled. documented in this encounter Plan of Treatment Upcoming Encounters Date Type Department Care Team (Late st Contact Info) Description 07/22/2024 9:[address] [facility] [address] [place] [address] 07/30/2024 2:30 PM EDT Evaluation [facility] Speech Therapy [address] [place] [phone] Jessica Hull, ROAD CLEANER 09/10/2024 9:10 AM EDT Office Visit Gastroenterology - [address] [facility] [address] [facility] [address] [place] [phone] Leif Burciaga PA [address] [place] [address] documented as of this encounter Visit Diagnoses Not on filedocumented in this encounter Care Teams Women'S Ministry Director Relationship Specialty Start Date End Date Bernie Aquino, XIANG [address] [facility] [place] [address] PCP - General Family Medicine 10/05/21 documented as of this encounter
--- OUTSIDE RECORDS SUMMARY | 2024-07-16 19:19 | XMS_ITS | Encounter Summary ---
Author Organization [facility] Address [address] [place] [address] Care Team Providers Care Continuous Improvement Director Name Role Phone Bernie Aquino DYNAMOMETER TESTER ENGINE Primary Care Provider Reason for Visit * Reason Comments Bloated Ua to evacuate Not c onstipation Vomiting Encounter Details Date Type Department Care Team (Late st Contact Info) Description 07/11/2024 10:40 AM EST Office Visit Gastroenterology - [address] [facility] [address] [place] [phone] Leif Burciaga PA [address] [facility] [address] [place] [phone] Elevated alkaline phosphatase level (Primary Dx); Bloating; Tenesmus; Nausea and vomiting, unspecified vomiting type Social History Tobacco Use Types Packs/Day Years [...] jenifer Mcdaniel RN documented in this encounter Ordered Prescriptions Prescription Sig Dispense Quantity Refills Last Filled Start Date End Date dicyclomine (BENTYL) 10 mg capsuleIndications :Tenesmus Take 1 capsule (10 mg total) by mouth 3 (three) times a day. 270 each 3 07/11/2024 documented in this encounter Progress Notes * ROMY Ocasio - 07/11/2024 10:40 AM ESTAssociated Problem(s): Elevated alkaline phosphatase level Second opinion for liver bx [facility] 08/18/24 Repeat lfts today, alk phos has been trending down (157 06/13/24) * ROMY Ocasio - 07/11/2024 10:40 AM EST Subjective Last Colononscopy/EGD: Colon 06/27/24 - normal mucosa throughout with normal colonic mucosa on bx (10 yr) HPI: Meredith Garcia is a 48 y.o. old female who presents to the gastroenterology department today for a follow up after her recent colonoscopy with Dr. Seals to rule out IBD due to an elevated fecal calprotectin level. The colonoscopy was unremarkable and did not note any colitis. A colon biopsy also was unremarkable and noted normal colonic mucosa. Will be due for her next colonoscopy in 10 years. She moved up her follow-up appointment due to ongoing GI issues. She feels bloated to the point short of breath. She has a constant urge to go to the bathroom and cannot go. The stool is softwhen it comes out. Laxatives do not help as it just causes diarrhea. Recent abdominal CT did not document constipation. The symptoms persisted even right after the colonoscopy and prep cleanout. She still has intermittent vomiting. She was worked up extensively for the upper symptoms and vomiting last year. She has had upper endoscopies, gastric emptying study. Abdominal pelvic CT. She is in the process of liver workup for elevated alkaline phosphatase. A liver biopsy suggested acute cholangitis although there was no other findings to support that. Her alkaline phosphatase is trending down. An MRI/MRCP did not document anything to suggest PSC. The colonoscopy was to rule out IBD given elevated fecal calprotectin level and question of PSC. She has an appointment at [facility] for second opinion regarding the liver biopsy. That appointment is August 18. She has a lot of stress in her life right now. She also has a lot of nausea on GI medical issues. LABS/IMAGING: Colonoscopy 06/27/24 Final Diagnosis Colon, random biopsies: Benign colonic mucosa with no specific pathologic change. No colitis identified. Review of Systems Constitutional: Negative. Respiratory: Positive for shortness of breath. Cardiovascular: Negative. Gastrointestinal: Positive for abdominal distention. Bloat Genitourinary: Negative. 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, nephrogenic (CMS/HCC) Diabetes mellitus (CMS/HCC) Familial Mediterranean fever (CMS/HCC) Hypoparathyroidism (CMS/HCC) Hypothyroid Migraines WALTERS (nonalcoholic steatohepatitis) PAST SURGICAL HISTORY: Past Surgical History: Procedure Laterality Date SECTION, LOW TRANSVERSE COLONOSCOPY 08/2017 10 yr COLONOSCOPY W/ BIOPSIES 06/2024 nl mucoa throughout, normal colonic mucosa on biopsy ESOPHAGOGASTRODUODENOSCOPY 10/2023 nl/fundic gland polyps ESOPHAGOGASTRODUODENOSCOPY 07/2021 fundic gland polyps ESOPHAGOGASTRODUODENOSCOPY 06/2012 mild chronic esophagitis on bx LIVER BIOPSY 03/2024 acute inflammation with ductal reaction? ascending cholangitis, secondary WALTERS likely THYROID LOBECTOMY Right US, SOFT TISSUE HEAD OR NECK (THYROID,PARATHYROID,PAROTID) subtotal parathyroidectomy SOCIAL HISTORY: Social History Tobacco Use Smoking [...] (40 mg total) by mouth at bedtime. nutpbqypfc-haczwztounimy-ykrenxjd (FIORICET, ESGIC) 50-325-40 mg per tablet Take [...] TO FOUR TIMES A DAY IF NEEDED Emgality Pen 120 mg/mL injection pen INJECT 1ML UNDER THE SKIN EVERY 28 DAYS EPINEPHrine (EPIPEN) 0.3 mg/0.3 mL injection Inject 0.3 mL (0.3 mg total) into the thigh. ferrous gluconate (FERGON) 324 mg (38 mg iron) tablet Take 1 tablet (324 mg total) by mouth 1 (one)time each day. 30 each 2 wrymrrzuqdn-qlvmcgsiffwe-rxrmrdgyoc (Trelegy Ellipta) 100-62.5-25 mcg inhaler Inhale 1 puff (100 mcg total) by mouth. gabapentin (NEURONTIN) 300 mg capsule Take 2 [...] (200 mg total) by mouth. at bedtime levothyroxine (SYNTHROID, LEVOTHROID) 50 mcg tablet TAKE [...] mg total) by mouth at bedtime. norethindrone (CITLALY,KATHY,STACAI,MICRONOR) 0.35 mg tablet Take 1 tablet (0.35 mg total) by mouth1 (one) time each day. omeprazole (PriLOSEC) [address] capsule Take 1 capsule (40 mg total) by mouth 2 (two) times a day. OXcarbazepine (TRILEPTAL) 300 mg tablet Take 3 tablets (900 mg total) by mouth 2 (two) times a day. rizatriptan (MAXALT) 10 mg tablet TAKE [...] by mouth. (Patient not taking: Reported on 07/11/2024) cyclobenzaprine (FLEXERIL) 10 mg tablet Take 1 tablet (10 mg total) by mouth 2 (two) times a day ifneeded for muscle spasms for up to 10 days. 20 tablet 0 dicyclomine (BENTYL) 10 mg capsule Take 1 capsule (10 mg total) by mouth 3 (three) times a day. 270each 3 docusate sodium (COLACE) 100 mg capsule take one capsule by mouth two times a day as needed for constipation (Patient not taking: Reported on 07/11/2024) famotidine (PEPCID) 20 mg tablet Take 1 tablet (20 mg total) by mouth. (Patient not taking: Reported on 06/13/2024) hepatitis B immune globulin 220 unit/mL solution 20 GRAMS EVERY 3 WEEKS, 0 Refills, Maintenance, 05/11/21 10:18:00 EST, Partial fill upon patient request if the prescription is for a schedule II opioid drug. (Patient not taking: Reported on 07/11/2024) hydrOXYzine pamoate (VISTARIL) 50 mg capsule Take 1 capsule (50 mg total) by mouth. (Patient not taking: Reported on 06/13/2024) lamoTRIgine (LaMICtal) 25 mg tablet Take 2 tablets (50 mg total) by mouth 1 (one) time each day in the morning. (Patient not taking: Reported on 07/11/2024) levoFLOXacin (LEVAQUIN) 500 mg tablet Take 1 tablet (500 mg total) by mouth 1 (one) time each day. for 7 days (Patient not taking: Reported on 07/11/2024) ondansetron (ZOFRAN) 4 mg tablet Take 1 [...] is for a schedule II opioid drug. No current facility-administered medications for this visit. ALLERGIES: Allergies Allergen Reactions Demerol [Meperidine] Nausea [...] Problem Adhesive Tape-Silicones Rash Flonase [Fluticasone] Headache Wt Readings from Last 2 Encounters: 07/01/24 0917 79.2 kg (174 lb 9.6 oz) 06/27/24 0718 73.5 kg (162 lb) Physical Exam Constitutional: Appearance: Normal appearance. She is obese. HENT: Head: Normocephalic. Cardiovascular: Rate and Rhythm: Normal rate and regular rhythm. Pulmonary: Effort: Pulmonary effort is normal. Breath sounds: Normal breath sounds. Abdominal: General: Bowel sounds are normal. There is no distension. Palpations: Abdomen is soft. There is no mass (t). Tenderness: There is no abdominal tenderness. There is no guarding or rebound. Skin: General: Skin is warm. Neurological: Mental Status: She is alert and oriented to person, place, and time. Psychiatric: Mood and Affect: Mood normal. Behavior: Behavior normal. IMPRESSION: 1. Elevated alkaline phosphatase level 2. Bloating 3. Tenesmus 4. Nausea and vomiting, unspecified vomiting type Assessment/Plan Assessment & Plan Elevated alkaline phosphatase level Second opinion for liver bx [facility] 08/18/24 Repeat lfts today, alk phos has been trending down (157 06/13/24) Bloating Tenesmus Start dicyclomine 10 mg tid Potential side effects reviewed. Nausea and vomiting, unspecified vomiting type Unremarkable work up - EGD/GES/CT At this point think the bloating, vomiting and the constant urge to go to the bathroom are functional GI symptoms. I am starting her on dicyclomine for what I expect is hyperactive bowels We discussed a trial of Xifaxan for the bloating and soft stool for IBS-D/SIBO Were going to start with dicyclomine and hold off on the Xifaxan. She agrees with that plan. We are also awaiting the second opinion from [facility] regarding the liver biopsy Xifaxan potential next step for bloat/on-going GI symtoms ROMY Ocasio 12:15 PM EST documented in this encounter Plan of Treatment Upcoming Encounters Date Type Department Care Team (Late st Contact Info) Description 07/22/2024 9:00 AM EDT Appointment [facility] [address] [place] [phone] 07/30/2024 2:30 PM EDT Evaluation [facility] Speech Therapy [address] [facility] [address] [place] [phone] Jessica Hull, RETAIL WAREHOUSE ASSOCIATE 09/10/2024 9:10 AM EDT Office Visit Gastroenterology - [address] [facility] [address] [place] [phone] Leif Burciaga PA [address] [facility] [address] [place] [address] documented as of this encounter Results * (ABNORMAL) Hepatic function panel (07/11/2024 11:19 AM EST) Total Protein 7.4 6.0 - 8.0 g/dL LAB CHEMISTRY METHOD 07/11/2024 4:30 PM [facility] Albumin 3.8 3.2 - 5.0 g/dL LAB CHEMISTRY METHOD 07/11/2024 4:30 PM EST [facility] Total Bilirubin 0.2 0.0 - 1.4 mg/dL LAB CHEMISTRY METHOD 07/11/2024 4:30 PM [facility] Bilirubin, Direct <0.1 0.0 - 0.3 mg/dL LAB CHEMISTRY METHOD 07/11/2024 4:30 PM [facility] Bilirubin, Indirect LAB CHEMISTRY METHOD 07/11/2024 4:30 PM [facility] Comment:Unable to calculate Indirect Bilirubin. ALT (SGPT) 35 10 - 60 unit/L LAB CHEMISTRY METHOD 07/11/2024 4:30 PM [facility] AST (SGOT) 24 10 - 42 unit/L LAB CHEMISTRY METHOD 07/11/2024 4:30 PM [facility] Alkaline Phosphatase 142(H) 42 - 121 unit/L LAB CHEMISTRY METHOD 07/11/2024 4:30 PM [facility] Blood Venous blood specimen / Unknown Venipuncture / Unknown 07/11/2024 11:19 AM EST 07/11/2024 12:46 PM EST us Leif STANTON LAB BLOOD ORDERABLES Final R esult [facility] [address] [place] [address], documented in this encounter Visit Diagnoses Diagnosis Elevated alkaline phosphatase level- Primary Bloating Flatulence, eructation, and gas pain Tenesmus Other symptoms involving digestive system Nausea and vomiting, unspecified vomiting type documented in this encounter Care Teams Continuous Improvement Director Relationship Specialty Start Date End Date Bernie Aquino NP [address] [facility] [place] [address] PCP - General Family Medicine 10/05/21 documented as of this encounter
--- OUTSIDE RECORDS SUMMARY | 2024-07-16 19:19 | XMS_ITS | Encounter Summary ---
Author Organization [email or web address] Address [address] [place] [address] Care Team Providers Care Wireless Internet Installer Name Role Phone Bernie Aquino HEAD OF SCIENCE Primary Care Provider Encounter Details Date Type Department Care Team (Latest Contact Info) Description 07/07/2024 12:05 PM EST - 07/07/2024 11:59 PM EST Hospital Encounter Xray [address] [place] [address] Constipation, unspecified constipation type Discharge Disposition: Home or Self Care Social [...] jenifer Mcdaniel RN documented in this encounter Medications [...] documented in this encounter Progress Notes * Manda Seals MD - 07/07/2024 12:15 PM EST X-ray looked good. No abnormalities seen. No bowel obstruction. No significant constipation. Followup in the office as scheduled. documented in this encounter Plan of Treatment Upcoming Encounters Date Type Department Care Team (Late st Contact Info) Description 07/22/2024 9:00 AM EDT Appointment Infusion Center [address] [facility] [address] [place] [phone] 07/30/2024 2:30 PM EDT Evaluation [facility] Speech Therapy [address] [place] [phone] [address] Hull, COURT INTERPRETER 09/10/2024 9:10 AM EDT Office Visit Gastroenterology - [address] [facility] [address] [place] [phone] Leif Burciaga PA [address] [facility] [address] [facility] [address] [place] [address] documented as of this encounter Procedures Procedure Name Priority Date/Time Associated Diagnosis Comments XR ABDOMEN 1 VIEW Routine 07/07/2024 12: 22 PM EST Constipation, unspecified constipation type documented in this encounter Results * XR Abdomen 1 View (07/07/2024 12:22 PM EST) Anatomical Region Laterality Modality Body [...] Signed Date: 07/10/2024 11:31 ET Workstation ID: [id number] Transcribed By: Self Edit Transcribed Date: 07/10/2024 [...] Signed Date: 07/10/2024 11:31 ET Workstation ID: [id number] Transcribed By: Self Edit Transcribed Date: 07/10/2024 11:27 ET Manda Seals MD IMG XR PROCEDURES Final Result documented in this encounter Visit Diagnoses Diagnosis Constipation, unspecified constipation type documented in this encounter Care Teams Wireless Internet Installer Relationship Specialty Start Date End Date Bernie Aquino NP [address] [facility] [place] [address] PCP - General Family Medicine 10/05/21 documented as of this encounter
--- OUTSIDE RECORDS SUMMARY | 2024-07-16 19:19 | XMS_ITS | Clinical Summary ---
Author Organization [facility] Address [address] [place] [address] Care Team Providers Care Brake Machine Operator Name Role Phone Bernie Aquino Primary Care Provider [phone] Allergies Active Allergy Reactions Criticality Noted Date [...] Type Department Care Team Description 06/11/2024 Refill [facility] [address] [place] [phone] Marketing And Development Coordinator: Gwen Pitts MA 06/09/2024 Refill [facility] [address] [place] [phone] Marketing And Development Coordinator: Ginger Ness 06/09/2024 Telephone [facility] [address] [address] Marketing And Development Coordinator: Stefany Ramirez LPN 06/04/2024 Telephone [facility] [address] [place] [phone] Marketing And Development Coordinator: Stefany Ramirez LPN 05/12/2024 Telephone [facility] [address] [place] [phone] Marketing And Development Coordinator: Stefany Ramirez LPN 05/02/2024 Telephone [facility] [address] [place] [phone] Marketing And Development Coordinator: Sari Workman Telephone Intake, Staff PAC Patient [...] Description 11/18/2024 10:30 AM EDT Office Visit [facility] [address] [place] [address] Marketing And Development Coordinator: Adrienne Gutiérrez MD [address] [place] [phone] Health Maintenance Due Date Last Done [...] 75+ series) 10/27/2050 Procedures * Due to [place] [email or web address] law, this organization might not be sharing negative HIV tests. Procedure Name Priority Date/Time Associated Diagnosis Comments COMPREHENSIVE METABOLIC PANEL Routine 04/20/2023 9:56 AM EST Chronic migraine without aura without status migrainosus, not intractable HM DIABETES EYE EXAM 11/10/2021 from Last 3 Months or Most Recently Relevant to Health Maintenance Results * Due to [place] [email or web address] law, this organization might not be sharing negative HIV tests. * (ABNORMAL) Comprehensive Metabolic Panel (04/20/2023 9:56 AM EST) NA 141 135 - 145 mmol/L 04/20/2023 11:01 AM EST [facility] K 3.6 3.5 - 5.3 mmol/L 04/20/2023 11:01 AM EST [facility] Cl 107 97 - 110 mmol/L 04/20/2023 11:01 AM EST [facility] CO2 21(L) 24 - 32 mmol/L 04/20/2023 11:01 AM [facility] Anion Gap 13 5 - 15 04/20/2023 11:01 AM [facility] Glucose 139(H) 70 - 99 mg/dL 04/20/2023 11:01 AM [facility] Creatinine 0.89 0.50 - 1.20 mg/dL 04/20/2023 11:01 AM [facility] Calcium 9.1 8.7 - 10.7 mg/dL 04/20/2023 11:01 AM [facility] Total Protein 7.1 6.0 - 8.0 g/dL 04/20/2023 11:01 AM [facility] Albumin 4.4 3.5 - 4.8 g/dL 04/20/2023 11:01 AM [facility] Bilirubin, Total 0.2(L) 0.3 - 1.2 mg/dL 04/20/2023 11:01 AM [facility] Alkaline Phosphatase 115 30 - 115 U/L 04/20/2023 11:01 AM [facility] AST 14 10 - 40 U/L 04/20/2023 11:01 AM [facility] ALT 19 10 - 40 U/L 04/20/2023 11:01 AM [facility] BUN 19 7 - 23 mg/dL 04/20/2023 11:01 AM [facility] eGFR 81 >=60 mL/min/1. 73m2 04/20/2023 11:01 AM [facility] Comment:The estimated glomer ular [...] LAB BLOOD ORDERABLES Final R esult [facility] [address] [place] [address], [place] * DIABETES EYE EXAM (11/10/2021) 11/10/2021 us Onbase Scan [facility] Resu lt from Last 3 Months or Most Recently Relevant to Health Maintenance Insurance MEDICARE BC OUT OF STATE O [facility] Advance Directives Documents on File Type Date Recorded Patient Production Support Engineer Expl [facility] Care Proxy 02/14/2017 2:27 PM Care Teams Brake Machine Operator Relationship Specialty Start Date End Date Bernie Aquino [address] [place] [phone] PCP - General 08/22/21
--- OUTSIDE RECORDS SUMMARY | 2024-07-16 19:19 | XMS_ITS | Encounter Summary ---
Author Organization [employer] Address [address] [place] [address] Care Team Providers Care Aws Software Development Engineer Name Role Phone Bernie Aquino BELL STAFF Primary Care Provider Encounter Details Date Type Department Care Team (Late st Contact Info) Description 07/14/2024 Telephone Gastroenterology - [address] [place] [address] Merly Lyons MA Social History [...] Progress Notes * Merly Lyons MA - 07/14/2024 8:40 AM EST Spoke with pt per ML alk phos level is still trending down. Now 142. Pt states was at [facility] yesterday for fever and abdominal bloating. States she has a UTI and a left cyst on ovary (3.8cm). * Merly Lyons MA - 07/14/2024 8:40 AM EST ----- Message from ROMY Serrano sent at 07/11/2024 5:00 PM EST ----- Please let pt know alk phos level is still trending down. Now 142. TY. documented in this encounter Plan of Treatment Upcoming Encounters Date Type Department Care Team (Late st Contact Info) Description 07/22/2024 9:00 AM EDT Appointment [address] [place] [phone] 07/30/2024 2:30 PM EDT Evaluation [facility] Speech Therapy [address] [place] [phone] Jessica Hull, COB SAWYER 09/10/2024 9:10 AM EDT Office Visit Gastroenterology - [address] [facility] [address] [place] [phone] Leif Burciaga PA 299 [facility] [address] [place] [address] documented as of this encounter Visit Diagnoses Not on filedocumented in this encounter Care Teams Aws Software Development Engineer Relationship Specialty Start Date End Date Bernie Aquino, XIANG [address] [facility] [place] [address] PCP - General Family Medicine 10/05/21 documented as of this encounter
--- OUTSIDE RECORDS SUMMARY | 2024-07-16 19:20 | XMS_ITS | Encounter Summary ---
[facility] Organization [facility] Address [address] [place] [address] Care Team Providers Care Marketing Content Coordinator Name Role Phone Bernie Aquino AEROSPACE STRESS ENGINEER Primary Care Provider + [phone] Reason for Referral * Hospital - Outpatient (Routine) - Canceled Specialty Diagnoses / Procedures Referred By Contac t Referred To Contact Diagnoses Anemia Elevated fecal calprotectin Procedures COLONOSCOPY Anesthesia - MAC; [facility] END[facility]COPY Manda Seals MD [address] [address] Phone: tel: fax: [facility] Referral ID Status Reason Start Date Expiration Date V isits Requested Visits Authorized [id number] Canceled 06/19/2024 06/19/2025 1 1 Reason for Visit * Hospital - Outpatient (Routine) - Canceled Specialty Diagnoses / Procedures Referred By Contac t Referred To Contact Diagnoses Anemia Elevated fecal calprotectin Procedures COLONOSCOPY Anesthesia - MAC; [facility] ENDOSCOPY Manda Seals MD [address] [address] Phone: tel: fax: [facility] Referral ID Status Reason Start Date Expiration Date V isits Requested Visits Authorized [id number] Canceled 06/19/2024 06/19/2025 1 1 Encounter Details Date Type Department Care Team (Late st Contact Info) Description 06/27/2024 6:49 AM EST - 06/27/2024 11:59 PM EST Hospital Encounter [facility] Endoscopy [address] [place] [phone] Manda Seals MD [address] [address] Rekha Gamble CRNA 114 [facility] [place] [address] Silvia Brooks MD [address] [place] [address] Anemia; Elevated fecal calprotectin Discharge Disposition: Home [...] be sent through Care Everywhere. * Hemorrhoids (Dominican) documented in this encounter Medications at Time [...] not taking: Reported on 06/13/2024 Historical Provider, ybkkisizgx-hpsilwlhkhsug-miydvnsc (FIORICET, ESGIC) 50-325-40 mg per tablet Take [...] taking: Reported on 06/13/2024 03/25/22 Historical Provider, iachncfgmnt-lenrdmbatpsr-otlhrospph (Trelegy Ellipta) 100-62.5-25 mcg inhaler Inhale 1 [...] 30MG IN 24 HOURS Historical Provider, MD Contreras 1.5 mg/0.5 mL pen injector injection Inject [...] Info) Description 07/22/2024 9:00 AM EDT Appointment [facility] [address] [facility] 2nd [place] [phone] 07/30/2024 2:30 PM EDT Evaluation [facility] Speech Therapy [address] [facility] [address] [place] [phone] Jessica Hull, GLOBAL ACCOUNT DIRECTOR 09/10/2024 9:10 AM EDT Office Visit Gastroenterology - [address] [place] [phone] Leif Burciaga PA [address] [place] [address] Pending Results Name Type Priority Associated Diagnoses [...] encounter Results * COLONOSCOPY Anesthesia - MAC; [facility] END[facility] (06/27/2024 8:07 AM EST) Anatomical [...] ? purposes. Narrative 06/27/2024 8:09 AM EST [facility] GI Patient Name: Meredith Garcia Procedure Date: 06/27/2024 7:44 AM Date of : 1975 Age: 48 Gender: Female Note Status: Finalized Attending MD: Manda Seals MD, Procedure Date No Time: 06/27/2024 Procedure: ? Colonoscopy Indications: ? Diarrhea Providers: ? Manda Seals MD Referring MD: ?Berniehafsa Aquino NP Medicines: ? Propofol per Anesthesia [...] Procedure Code(s): ? --- Professional --- ? 41470, Colonoscopy, flexible; with biopsy, single or ? multiple Diagnosis Code(s): ? --- Professional --- ? R19.7, Diarrhea, unspecified CPT copyright 2020 [employer]. All rights reserved. The codes documented in this report are preliminary and upon payroll bookkeeper review may be revised to meet current compliance requirements. Manda Seals MD 06/27/2024 8:09:30 AM This report has been signed electronically.Manda Seals MD Number of Addenda: 0 Note Initiated On: 06/27/2024 7:44 AM Scope In: Scope Out: ? Endoscopy Department at [facility] - [address] [place] [address], ? [place] [address] Procedure Note Manda Seals MD - 06/27/2024 [facility] Patient Name: Meredith Garcia Procedure [...] not prolapse). Procedure Code(s): --- Professional --- 65120, Colonoscopy, flexible; with biopsy, singleor multiple Diagnosis Code(s): --- Professional --- R19.7, Diarrhea, unspecified CPT copyright 2020 [employer]. All rights reserved. The codes documented in this report are preliminary and upon payroll bookkeeper reviewmay be revised to meet current compliance requirements. Manda Seals MD 06/27/2024 8:09:30 AM This report has been signed electronically.Manda Seals MD Number of Addenda: 0 Note Initiated On: 06/27/2024 7:44 AM Scope In: Scope Out: Endoscopy Department at [facility] - [address] [place] [phone] IMPRESSION: - The examined portion of the ileum was normal. - Normal mucosa in the entire examined colon.Biopsied. - Internal hemorrhoids. Recommendation: - Await pathology results. - Repeat colonoscopy in 10 years for screening purposes. us Manda Seals MD GI~PROCEDURE ORDERABLES Final Result * Tissue exam (06/27/2024 7:57 AM EST) Final Diagnosis Colon, random biopsies: Benign colonic mucosa with no specific pathologic change. No colitis identified. 06/30/2024 11:31 AM EST [facility] Gross Description A. Colon, random [...] pieces, multiple levels. dvb/DG 06/30/2024 11:31 AM [facility] Disclaimer Unless otherwise specified, all tissue is 10% NB formalin fixed and paraffin embedded. 06/30/2024 11:31 AM [facility] Tissue Colon structure / Unknown 06/27/2024 7:57 AM EST 06/27/2024 9:36 AM EST us Manda Seals MD LAB PATHOLOGY ORDERABLES Final Result [facility] [address] [place] [address], documented in this encounter Visit Diagnoses Diagnosis [...] 06/27/2024 documented in this encounter Care Teams Marketing Content Coordinator Relationship Specialty Start Date End Date Bernie Aquino NP [address] [facility] [place] [address] PCP - General Family Medicine 10/05/21 documented as of this encounter
--- OUTSIDE RECORDS SUMMARY | 2024-07-16 19:20 | XMS_ITS | Continuity of Care Document ---
Author Organization [facility] Address [address] [place] [address]- Support Name Relationship Address Phone HEMANT LEE [...] Unknown U navailable Care Team Providers Care Manager Trade Marketing Name Role Phone Miles OTOOLE, Bernie Hardy Primary Care Physician Encounter [facility] Date(s): 06/26/24 - 07/03/24 [facility] Physical [facility] [address] [place] [address]- Encounter Diagnosis Concussion without loss of consciousness(Discharge Diagnosis) - 06/26/24 Migraine(Discharge Diagnosis) - 06/26/24 Bipolar disorder(Discharge Diagnosis) - 06/26/24 Attending Physician: Vish Gann MD Referring Physician: Bernie Aquino NP Encounter Type: Office Visit Allergies, Adverse Reactions, [...] (oldterm) 8 03/14/09 Given 1Result Comment: [09/19/2017] [id number] 2Result Comment: [02/13/2018] [id number] 3Result Comment: [02/08/2017] [facility] [id number] 4Result Comment: [01/24/2013] ORDERRED BY [...] 09/11/23 10:04:00 AM EDT, Tablet, [facility], Partial fill upon patient request [...] EDT, Route to Pharmacy Electronically, [facility], Partial fill upon patient request [...] 11:57:00 AM EST, Route to Pharmacy Electronically, [facility], 163, cm, 03/07/23 8:42:00 EDT, Height, 76.2, kg, 01/06/22 8:38:00 EDT, Dry Weight Start Date: 05/21/23 Status: Ordered Quantity: 60.0 Unit: Unknown Repeat number: 1 Combivent Respimat 20 mcg-100 mcg/inh inhalation aerosol 1 puffs, Inhalation, 4 times a day, # 1 each, 0 Refills, Maintenance, 10/15/23 8:40:00 AM EDT, [facility], Partial fill upon patient request [...] 3:40:00 PM EDT, Route to Pharmacy Electronically, [facility], 163, cm, 11/22/20 12:47:00 EDT, [...] 6:54:00 AM EDT, 04/15/24 6:54:00 AM EST, [facility], Partial fill upon patient request [...] 2 Refills, Maintenance, 06/24/24 8:11:00 AM EST, [facility], 163, cm, 06/12/24 8:08:00 EST, [...] 7:45:00 AM EST, Route to Pharmacy Electronically, [facility], 163, cm, 03/07/24 8:07:00 EDT, [...] 04/25/24 Status: Ordered Repeat number: 1 Pen Dallas, 31 G x 5 mm BD Ultra [...] Effective Dates Health Status Clinical Service Informant Concussion without loss of consciousness Discharge Diagnosis 06/26/24 Migraine Discharge Diagnosis 06/26/24 Bipolar disorder Discharge Diagnosis 06/26/24 Vital Signs Most recent to oldest [Reference Range]: 1 Height 163 cm (06/26/24 9:36 AM) Weight 78.2 kg (06/26/24 9:36 AM) Oxygen Saturation [94-100 %] 98 % (06/26/24 9:36 AM) Pulse Rate [55-90 bpm] 92 bpm *H* (06/26/24 9:36 AM) Body Mass Index [18.5-24.99 kg/m2] 29.43 kg/m2 *H* (06/26/24 9:36 AM) Blood Pressure [90-138/55-84 mm Hg] 125/ 79mm Hg (06/26/24 9:36 AM) Respiratory Rate [16-30 br/min] 20 br/mi n (06/26/24 9:36 AM) Mode of Delivery (Oxygen) Room air (06/26/24 9:36 AM) Blood pressure sites Arm, right (06/26/24 9:36 AM) Weight Obtained Via Bed scale (06/26/24 9:36 AM) Social History Social History Type Response Smoking Status Never smoker entered on: 05/12/13 Sex Sex Representation Female (finding) Note * Aleida Hernandez: PERFORM Event Display: Patient Education/Instruction Authored Date: [id number] Ambulatory Adult Visit Summary [facility] Physical Medicine and Rehabilitation [place] [facility] [address] [facility] [address] [place] [address] Name: HEMANT LEE : 1975?? Visit: 06/26/2024 09:26?? Ambulatory Visit Instructions ?? Your Care Team Primary Care Provider Miles OTOOLE, Bernie Hardy? This Visit Provider Vish Gann MD Vitals Signs Pulse Rate:??92 bpm??High Height: 163 cm Respiratory Rate: 20 br/min Weight: 78.2 kg Systolic Blood Pressure: 125 mm Hg Body Mass Index:??29.43 kg/m2??High Diastolic Blood Pressure: 79 mm Hg Body surface area: 1.88 Oxygen Saturation: 98 % ?? What to do next Instructions From Your Provider Recommendations: ?? 1. sleep hygiene: goal is a consistent bedtime, consistent wake up time, ideally 8-10 hours of sleep per night, NO napping ?? 2. management of mental health ?? 3. management of cognitive deficits: complete fasting labs on an empty stomach prior to 9am at any [facility], call to set up appointment for speech therapy at [facility]. ?? 4. physical therapy to focus on eye/head movement/balance symptoms ?? 5. Symptom based cognitive and physical activities. Scheduled Follow-Up Appointments 2024 2:00 PM EDT ?? With: Vish Gann MD Where: [facility] [place] [facility] [address] [facility] [address] [place] [address]- Status: Pending Sunday 1:00 PM EDT ?? With: Walker CHAIDEZ, Lluvia Mendez Where: [facility] [place] [address] [place] [address]- Status: Pending 2024 9:30 AM EDT ?? With: Bernie Aquino NP Where: [facility] [address] [place] [address]- Status: Pending Follow-Up Appointments Follow up Appointment - Ordered?-- 6-8 weeks, concussion f/u, 06/26/24 10:36:00 EST Future Orders Iron Level - Routine, Once, [...] provider. What How Much When Instructions Changed Topiramate (topiramate 50 mg oral tablet) 1 tab(s) Oral Twice a day per neuro ?? Unchanged Albuterol/ Ipratropium (Combivent Respimat 20 [...] ?E11.9 ?? Unchanged Durable Medical Equipment (Pen Dallas, 31 G x 5 mm BD Ultra Fine III) See instructions use with lispro pen Dx: Type II diabetes ?? Unchanged Epinephrine (EpiPen 2-Juvenal) 0.3 Milligram Intramuscular Once Unchanged Ferrous Gluconate (ferrous gluconate 324 mg oral tablet) 1 tab(s) Oral 3 times a day Unchanged fluticasone/ umeclidinium/ vilanterol (Trelegy Ellipta) Inhalation Daily Unchanged Gabapentin (gabapentin 600 mg oral tablet) 1 tab(s) Oral 3 times a day Unchanged galcanezumab (Emgality Prefilled Syringe 120 mg/ [...] for glucose greater than 500 ?? Unchanged Lamotrigine (lamotrigine 200 mg oral tablet) 1 tab(s) Oral Daily at Bedtime Unchanged Lamotrigine (lamotrigine 50 mg oral tablet, extended release) 1 tab(s) Oral Daily Unchanged Levothyroxine (levothyroxine [...] Norethindrone (Jade) 0.35 Milligram Oral Daily Unchanged Norethindrone (Incassia 0.35 mg oral tablet) 1 tab(s) Oral Daily Unchanged omalizumab (Xolair 150 mg subcutaneous injection) See instructions 300 mg Subcutaneous Injection ?? Unchanged Omeprazole (omeprazole 40 mg oral enteric coated capsule) 1 capsule Oral Twice a day Unchanged Oxcarbazepine See instructions 900mg By Mouth twice a day ?? Unchanged Oxcarbazepine (Trileptal 300 mg oral tablet) See instructions 1.5 tabs BID ?? Unchanged PredniSONE (predniSONE 20 mg oral tablet) See instructions 1-2 tablet By Mouth Daily, PRN ?? Unchanged Rizatriptan (rizatriptan 10 mg oral tablet) See instructions 1 tablet By Mouth may repeat dose once in 2 hours ?? Unchanged Venlafaxine See instructions 75mg By Mouth ? What How Much When Comments Stop Taking Hydrochlorothiazide See instructions 40mg By Mouth Daily & 25mg PRN ?? Medications and Immunizations Administered Medications Given During [...] are strongly encouraged to quit. Please call [employer] at [phone] or [phone] ([phone]) or log in to [email or web address] for referrals to smoking cessation programs. ?? The National Suicide Prevention Hotline is available 04/12 if you or someone you know needs to find a reason to keep living. By calling 3-705-409-vdyd ([phone]) you'll be connected to a skilled, trained counselor at a crisis center in your area. [facility] [employer] Portal You can view and manage your care through the patient portal or by using a health care chinmay of your choosing. [employer] is a website that allows you to securely view your medical information including your hospital discharge summary, office visit summaries, medications and follow-up visits. You can also request appointments, renew medications, and request access to your medical information using a health care chinmay of your choosing, or just ask a question. You can enroll at [email or web address] or register during your next office visit. [facility], in keeping with [facility] guidance, no longer requires face [...] primary care provider, you may find a [facility] provider by calling [facility] [employer] Link at [phone]. Patient Care team information Care Team Personnel Name: Neto Cunningham MD Position: [facility] Renal MD Member Role: Lifetime Consulting Physician Address: [address] [place] [address] [address] [facility] [place] [address]- Telecom: Name: Lore Clinton RN Position: [facility] AMB Nurse Member Role: Primary Care Nurse Name: Chris Rosenbaum MD Position: [facility] SAIL REPAIR PERSON MD Member Role: [employer] SAIL REPAIR PERSON Physician Address: [address] [facility] [address]- Telecom: Name: Bernie Aquino NP Position: [facility] PCO Associate Professional Member Role: PCP Address: [address] [place] [address]- ST Telecom: Name: Gregg Hardy MD Position: [facility] Pulmonary MD Member Role: Lifetime Consulting Physician Address: [address] [place] [address]- [place] Telecom: Care Team Related Persons Name: ONDINA SINGLETARY Name: BLAIRE JACOB Insurance Providers Guarantor name: HEMANT LEE Health Plan Information #: 3 Payer: [facility] Member Number: [id number] Policy Number: NA Group Number: NA Health Plan Information #: 2 Payer: MEDICARE PART B OUTPT Member Number: [id number] Policy Number: NA Group Number: NA Health Plan Information #: 1 Payer: BC OUT OF STATE PLANS Member Number: [id number] Policy Number: NA Group Number: NA
--- OUTSIDE RECORDS SUMMARY | 2024-07-16 19:20 | XMS_ITS | Encounter Summary ---
Author Organization [facility] Address [address] [place] [address] Care Team Providers Care Log Hauler Name Role Phone Bernie Aquino ECONOMICS TEACHER Primary Care Provider + [phone] Reason for Visit * Episode Based Medications (Routine) - Pending Review Specialty Diagnoses / Procedures Referred By Javier cruz Referred To Contact Diagnoses CVID (common variable immunodeficiency) ([facility]/HCC) Deandre Schroeder MD [address] [place] [phone] Phone: tel: fax: [facility] [address] [place] [phone] Phone: tel: fax: Referral ID Status Reason Start Date Expiration Date V isits Requested Visits Authorized [id number] Pending Review 03/10/2024 03/10/2025 1 23 Encounter Details Date Type Department Care Team (Latest Contact Info) Description 07/01/2024 8:57 AM EST - 07/01/2024 11:59 PM EST Hospital Encounter [facility] [address] [place] [phone] Deandre Schroeder MD [address] [place] [address] CVID (common variable immunodeficiency) (CMS/HCC) [...] Denae Escobedo RN documented in this encounter Medications at [...] time each day. 30 each 2 5 04/27/20 25 fluticasone-umeclid inium-vilanterol (Trelegy Ellipta) 100-62.5-25 mcg [...] been able to speak with therapist. Ivone Patel/bridge ironworker helper notified and will speak with patient. Patient [...] Info) Description 07/22/2024 9:00 AM EDT Appointment [facility] [address] [facility] 2nd [place] [address] 07/30/2024 2:30 PM EDT Evaluation [facility] Speech Therapy [address] [facility] [address] [place] [address] Jessica Hull, ELECTRIC FAN ASSEMBLER 09/10/2024 9:10 AM EDT Office Visit Gastroenterology - [address] [place] [address] Leif Burciaga PA [address] [place] [address] documented as of this encounter Visit Diagnoses [...] Preferred Brand: GammaGard LiquidIndications:CVID (common variable immunodeficiency) (CMS/HCC) New Bag 07/01/2024 11:31 AM EST 30 g sodium chloride 0.9 % bolus 1,000 mL 1,000 mL, intravenous, at 500 mL/hr, Administer over 2 Hours, Once, On Sun07/01/24 at 0945, For 1 doseIndications:CVID (common variable immunodeficiency) (CMS/HCC) New Bag 07/01/2024 9:30 AM EST 1,000 mL 500 mL/hr documented in this encounter Orders Nursing Count Last Ordered Date First Orde red Date ONC NURSING COMMUNICATION 1 07/01/2024 ONC NURSING COMMUNICATION 5 07/01/2024 TREATMENT CONDITIONS 1 07/01/2024 Appointment Requests Count Last Ordered Date Fi rst Ordered Date ONCBCN INFUSION APPOINTMENT REQUEST 08 documented in this encounter Care Teams Log Hauler Relationship Specialty Start Date End Date Bernie Aquino NP [address] [facility] [place] [address] PCP - General Family Medicine 10/05/21 documented as of this encounter
--- OUTSIDE RECORDS SUMMARY | 2024-07-16 19:20 | XMS_ITS | Data Portability ---
Author Organization [facility], [facility] Address [address] [place] [address] Care Team Providers Care Drawer Liner Name Role Phone MITZI STACY Primary Care Provider [phone] Assessment Encounter Date Assessment Date Assessment LastModified [...] symptoms. X-rays ordered, obtained and reviewed at [facility]: AP and lateral of the cervical spine [...] or to follow up sooner if needed. [email or web address] Not available 05/26/2024 12:44:58 Plan of Treatment Reminders Order Date Submit Date Provider Last Modified By Organization Details Last Modified Time Details Appointments None recorded. Lab None recorded. Referral physical therapist referral - VMO Strengthe aron, Hip Abductor, Glute Med Strengthe aron, Quad & Hamstring Stretchin g, Patella Mobilizat Adalberto rincon Taping at your discretio n. 2023 024 [facility], [address], [place], [address], 4 11:52:24 Procedures None recorded. Surgeries None recorded. Imaging XR, cervical spine, 2 or 3 view - new eval cervical spine pain room 4 2024 025 [email or web address], [address], [facility] [address], [place], [address], 5 15:09:16 XR, knee, 4 or more view - rm 1 LT knee 2023 024 [email or web address], [address], [place], [address], 11:52:24 Medication Orders prednison e 10 mg tablet 2024 025 [facility], [address] [place], [address], 11:54:41 Patient TargetsNo targets recorded. Patient Instructions Encounter Date Encounter Id Patient Instructions Last Modified By Organization Details Last Modified Time 05/26/[id number] neck: exercises Not available 05/26/2024 13:15:56 neck spasm: exercises [email or web address] Not available 05/26/2024 13:15:56 Reason for Referral Physical Therapist Referral for Chondromalacia of left patella VMO Strengthening, Hip Abductor, Glute Med Strengthening, Quad & Hamstring Stretching, Patella Mobilization, Glover Taping at your discretion. Referring Physician: Armando Ortiz, Orthopedic Surgery, [id number] Encounter Date: 11/19/2023 Results Created Date Observation Date Name Description Value Unit Range Abnormal Flag Note LastModifiedBy Organization Detail LastModifiedTime 11/19/1911/19/2023 XR, knee, 4 or more view [email or web address] ?Encry pted=s hAaTro YD8dLq bEUv6g %2BXZw aYqtaq 0bqfl% 2Fg9IQ a4ajBk vP9nXo QUaueC m3YtLR FvZlgJ JJ8mAn HZtai3 5j9202 AC0Kpa XuEVqb eUC8mr 84%3D INTERFACE [facility] [address], [place], [address], 11/19/2023 10:31:57 11/19/19 24 11/19/2023 XR, knee, 4 or more view http:/ [email or web address] ?Encry pted=s hAaTro YD8dLq bEUv6g %2BXZw aYqtaq 0bqfl% 2Fg9IQ a4ajBk vP9nXo QUaueC m3YtLR FvZlgJ JJ8mAn HZtai3 1c3203 AC0Kpa XuEVqb eUC8mr 84%3D INTERFACE [facility] [address], [place], [address], 11/19/2023 10:31:59 01/12/20 24 09/13/2020 imagi ng/di [...] a4ajBk vP9nXo QUaueC m3YtLR FvZlgJ JJ8mAn HZtai3 6a5078 AC0Kqb 36GVae gKiQtr MwF INTERFACE [facility] [address], [place], [address], 05/26/2024 10:48:09 05/26/19 25 05/26/2024 XR, cervi kamron spine , 2 or 3 view http:/ [email or web address] ?Encry pted=s Stephanie YD8dLq bEUv6g %2BXZw aYqtaq 0bqfl% 2Fg9IQ a4ajBk vP9nXo QUaueC m3YtLR FvZlgJ JJ8mAn HZtai3 3h7842 AC0Kqb 36GVae gKiQtr MwF INTERFACE [facility] [address], [place], [address], 05/26/2024 10:48:11 Result Notes None recorded. Problems Name Problem SNOMED Code Status Onset Date Resolution Date Notes Provider Name and Address Organization Details Recorded Time Pain of left knee joint 188015444000 107 Active 2023 TONIA murphy [place] - [facility] 4 10:13:15 Neck pain 17174201 Active 2024 SHILPA Mcdaniel'AG murphy [place] - [facility] 5 10:36:29 Pain in right hip joint 980254550997 102 Active 2016 Problem Code: M25.551; Problem Code Type: ICD-10; Status: 'A'; Not Available [facility] 4 11:42:22 Pain of left hip joint 974771691508 100 Active 2016 Problem Code: M25.552; Problem Code Type: ICD-10; Status: 'A'; Not Available [facility] 4 11:42:22 Chondroma lacia of left patella 049735644525 106 Active 2016 Problem Code: M22.42; Problem Code Type: ICD-10; Status: 'A'; Not Available [facility] 4 11:42:22 Problem Notes None recorded. Procedures Surgical History None recorded. Imaging Results Imaging Date Name Status LastModified by [facility]iz [facility] Details LastModified Time 11/19/2023 XR, knee, 4 or more view completed INTERFACE [facility] [address], [place], [address], 11/19/2023 10:31:57 11/19/2023 XR, knee, 4 or more view completed INTERFACE [facility] [address], [place], [address], 11/19/2023 10:31:59 09/13/2020 imaging/diagn ostic result completed [...] [facility] [address], [place], [address], 05/26/2024 10:48:09 05/26/2024 XR, cervical spine, 2 or 3 view completed INTERFACE [facility] [address], [place], [address], 05/26/2024 10:48:11 Procedure Notes None recorded. Medical Equipment None Reported. Allergies Allergen ID Allergen Name Allergen Category Reaction Reaction Severity Criticality Documentation Date Start Date Code Code System Note Provider Name and Address Organization Details Recorded Time 90469 Reglan medicatio n Not available Not available Not available 07/16/20232022 9230 RxNorm Not Available [facility] 14:15:03 23089 Medicinal product acting as adhesive (product) environme nt,medica tion Not available Not available Not available 07/16/20232022 19573 2009 SNOMED Not Available [facility] 14:15:03 43688 Non-stero idal anti-infl ammatory agent (product) medicatio n Not available Not available Not available 07/16/20232022 18609 005 SNOMED Not Available [facility] 4 14:15:03 Medications Name Sig Start [...] Available Not Available Not Available lithium carbonate [place] Carbonate 150MG Capsule 09/06 completed Statu s: [...] Updated DateTime 11/19/2023 162.56 cm 29.2 kg/m2 59671.7 g TONIA DUNN [facility] 11/19/2023 10:13:00 Date Recorded Body height Body mass index (BMI) Body weight Provider Name and Address Organization Details Last Updated DateTime 05/26/2024 162.56 cm 29.2 kg/m2 00010.7 g SHILPA BRUMFIELD [facility] 05/26/2024 10:30:12 Social History Question Answer Notes LastModified by Organizat ion Details LastModified Time Tobacco Smoking Status Never Smoker [facility] 05/26/2024 10:35:08 What Is Your Level [...] History Nothing Reported. Medical History Condition Response Coronary Artery Disease N Anxiety/Depression Y Emphysema N COPD N Pacemaker N Vascular Disease N Heart Trouble N Gastrointestinal Disease N Autoimmune disease N Inflammatory Joint disease N Orthotics N Arthritis Y Blood Clot N Acid Reflux (GERD) N Cancer Y Stroke N Circulation Problems N Rheumatoid Arthritis N Arrhythmia N Headaches Y Fibromyalgia N Allergies/Hayfever N Breathing or lung disorders Y Nerve Disorders N Thyroid Problems Y Kidney/Bladder Problems Y Anemia Y Heart Attack (NH) N Cholesterol Y Diabetes Y Bleeding Disorder N Seizures/Epilepsy N AIDS/HIV N Congestive Heart Failure (CHF) N Asthma N Peripheral Vascular Disease N Sleep Apnea N Hepatitis N Heart Disease N Pulmonary Embolism N Hypertension N Osteoporosis N Gynecological HistoryNo gynecological history recorded. Obstetrics History GPAL:G 0 P 0 0 0 0 Past Encounters Encounter ID Performer Location Encounter Start Date Encounter Closed Date Diagnosis/Indication Diagnosis SNOMED-CT Code Diagnosis ICD10 Code Diagnosis Note [id number] [facility] [address] [place] [address] 11/19/2023 09:56:07 12/05/2023 11:52:24 Pain of left knee joint 7821734827 24721 M25.562 Chondromal acia of left patella 9566542560 [id number] PA-C [facility] [place] [address] [place] [address] 05/26/2024 09:07:01 06/05/2024 15:09:16 Neck pain 05760278 M54.2 Spasm of c ervical paraspinous muscle 152081763 M62.838 Health Concerns Section Related Observation LastModified by Organization Detai ls LastModified Time None Recorded Concern Status LastModified by Organization Details LastModified Time None Recorded Advance Directives Directive None Recorded Payers Encounter Date Sequence Insurance Name Policy Number Policy Brambila Covered Member ID Brambila Member ID Guarantor Name 11/19/2023 1 BCBS-ID: [facility] [id number] Pineda Garcia [id number] Meredith Garcia 11/19/2023 2 MEDICARE B-[place]: [facility] Meredith Garcia [id number] Meredith Garcia 05/26/2024 1 BCBS-ID: [facility] [id number] Pineda Garcia [id number] Meredith Garcia 05/26/2024 2 MEDIC[place]: [facility] Meredith Garcia [id number] Meredith Garcia Notes Date Note Type [...] ordered, obtained and independently reviewed today at [facility] 3 views of the left knee findings [...] of therapy if symptoms continue to persist. [facility] speech recognition decontamination technician software was used to create portions of this document. An attempt at proofreading has been made to minimize errors. Please call for corrections. Armando Ortiz PA-C [address] [facility] [address], [place], [address], [facility] - [facility] 11/19/2023 10:47:31 OBGyn Episode No OBEpisode recorded.
--- OUTSIDE RECORDS SUMMARY | 2024-07-16 19:20 | XMS_ITS | Encounter Summary ---
Author Organization [employer] Address [address] [place] [address] Care Team Providers Care Senior Online Marketing Manager Name Role Phone Bernie Aquino CARD TENDER Primary Care Provider Encounter Details Date Type Department Care Team (Late st Contact Info) Description 06/24/2024 Telephone Gastroenterology - [address] [place] [address] Merly Lyons [place] Social History [...] PT, MOVED 08/04/24 PROC TO 06/27/24 AT [facility] AT 730AM. WENT OVER PREP INSTRUCTIONS WITH PT. PT TO HOLD DIABETES MEDS NIGHT BEFORE AND AM OF TEST. PT HELD TRULICITY AND IRON. documented in this encounter Plan of Treatment Upcoming Encounters Date Type Department Care Team (Late st Contact Info) Description 07/22/2024 9:00 AM EDT Appointment [facility] Infusion Center [address] [facility] 2nd [place] [phone] 07/30/2024 2:30 PM EDT Evaluation [facility] Speech Therapy [address] [facility] [address] [place] [phone] Jessica Hull, SUPERVISOR CLEANING AND ANNEALING 09/10/2024 9:10 AM EDT Office Visit Gastroenterology - [address] [facility] [address] [facility] [address] [place] [phone] Leif Burciaga PA [address] [facility] [address] [place] [address] documented as of this encounter Visit Diagnoses Not on filedocumented in this encounter Care Teams Senior Online Marketing Manager Relationship Specialty Start Date End Date Bernie Aquino NP [address] [facility] [place] [address] PCP - General Family Medicine 10/05/21 documented as of this encounter
--- OUTSIDE RECORDS SUMMARY | 2024-07-16 19:20 | XMS_ITS | Encounter Summary ---
Author Organization [facility] Address [address] [place] [address] Care Team Providers Care Electric Gas Appliances Demonstrator Name Role Phone Bernie Aquino SPACE PLANNER Primary Care Provider Encounter Details Date Type Department Care Team (Late st Contact Info) Description 06/20/2024 Telephone Gastroenterology - [address] [phone] Manda Seals MD [address] [address] Social History Tobacco Use Types Packs/Day Years [...] Info) Description 07/22/2024 9:00 AM EDT Appointment [facility] Infusion Center [address] [facility] 2nd [place] [phone] 07/30/2024 2:30 PM EDT Evaluation [facility] Speech Therapy [address] [facility] [address] [place] [phone] Jessica Hull, PERSONAL TRAINER 09/10/2024 9:10 AM EDT Office Visit Gastroenterology - [address] [place] [phone] Leif Burciaga PA [address] [place] [address] documented as of this encounter Visit Diagnoses Not on filedocumented in this encounter Care Teams Electric Gas Appliances Demonstrator Relationship Specialty Start Date End Date Bernie Aquino NP [address] [facility] [place] [address] PCP - General Family Medicine 10/05/21 documented as of this encounter
--- OUTSIDE RECORDS SUMMARY | 2024-07-16 19:20 | XMS_ITS | Encounter Summary ---
Author Organization [facility] Address [address] [place] [address] Care Team Providers Care Pipe Layer Name Role Phone Bernie Aquino BALCONY WORKER Primary Care Provider [phone] Encounter Details Date Type Department Care Team (Late st Contact Info) Description 06/30/2024 Telephone Gastroenterology - [address] [phone] Manda Seals MD [address] [address] Social History Tobacco Use Types Packs/Day Years [...] Description 07/22/2024 9:00 AM EDT Appointment [facility] Infusion Center [address] [facility] 2nd [place] [phone] 07/30/2024 2:30 PM EDT Evaluation [facility] Speech Therapy [address] [facility] [address] [place] [phone] Jessica Hull, SALESPERSON HANDBAGS 09/10/2024 9:10 AM EDT Office Visit Gastroenterology - 299 [facility] [address] [facility] [address] [place] [phone] Leif Burciaga PA 299 [facility] [address] [place] [address] documented as of this encounter Visit Diagnoses Not on filedocumented in this encounter Care Teams Pipe Layer Relationship Specialty Start Date End Date Bernie Aquino NP [address] [facility] [place] [address] PCP - General Family Medicine 10/05/21 documented as of this encounter
--- OUTSIDE RECORDS SUMMARY | 2024-07-16 19:20 | XMS_ITS | Encounter Summary ---
Author Organization [employer] Address [address] [place] [address] Care Team Providers Care Tip Out Worker Name Role Phone Bernie Aquino AIR LAUNCH WEAPONS TECHNICIAN Primary Care Provider [phone] Encounter Details Date Type Department Care Team (Late st Contact Info) Description 06/20/2024 Telephone Gastroenterology - [address] [facility] [address] [place] [phone] Leif Burciaga PA [address] [place] [phone] Social History Tobacco Use Types Packs/Day Years [...] colonoscopy next week with Dr. Seals at [facility]. Dr. Seals will verify with anesthesia [...] EDT Appointment [facility] Infusion Center [address] [facility] 2nd [place] [address] 07/30/2024 2:30 PM EDT Evaluation [facility] Speech Therapy [address] [facility] [address] [place] [address] Jessica Hull, SCRAP CRANE OPERATOR 09/10/2024 9:10 AM EDT Office Visit Gastroenterology - 299 [facility] [address] [facility] [address] [place] [address] Leif Burciaga PA [address] [place] [address] documented as of this encounter Visit Diagnoses Not on filedocumented in this encounter Care Teams Tip Out Worker Relationship Specialty Start Date End Date Bernie Aquino NP [address] [facility] [place] [address] PCP - General Family Medicine 10/05/21 documented as of this encounter
--- OUTSIDE RECORDS SUMMARY | 2024-07-16 19:20 | XMS_ITS | Encounter Summary ---
Author Organization [employer] Address [address] [place] [address] Care Team Providers Care Service Station Operator Name Role Phone Bernie Aquino DIE REPAIRER TRIMMER DIES Primary Care Provider Encounter Details Date Type Department Care Team (Late st Contact Info) Description 06/17/2024 Telephone Gastroenterology - [address] [place] [address] Merly Lyons [place] Social History [...] [facility] Infusion Center [address] [facility] 2nd [place] [phone] 07/30/2024 2:30 PM EDT Evaluation [facility] Speech Therapy [address] [facility] [address] [place] [phone] Jessica Hull, MERGERS AND ACQUISITIONS ATTORNEY 09/10/2024 9:10 AM EDT Office Visit Gastroenterology - 299 [facility] [address] [facility] [address] [place] [address] Leif Burciaga PA 299 [facility] [address] [place] [address] documented as of this encounter Visit Diagnoses Not on filedocumented in this encounter Care Teams Service Station Operator Relationship Specialty Start Date End Date Bernie Aquino NP [address] [facility] [place] [address] PCP - General Family Medicine 10/05/21 documented as of this encounter
--- OUTSIDE RECORDS SUMMARY | 2024-07-16 19:20 | XMS_ITS | Encounter Summary ---
Author Organization [employer] Address [address] [place] [address] Care Team Providers Care Pedodontist Name Role Phone Bernie Aquino ENGINE DISPATCHER Primary Care Provider [phone] Encounter Details Date Type Department Care Team (Late st Contact Info) Description 06/19/2024 Telephone Gastroenterology - [address] [phone] Manda Seals MD [address] [phone] Social History Tobacco Use Types Packs/Day Years [...] Assessment Author No 05/20/2024 3:30 AM EST nAnetta, As jenifer Mcdaniel RN * Because of [...] Info) Description 07/22/2024 9:00 AM EDT Appointment [facility] [address] [facility] 2nd [place] [phone] 07/30/2024 2:30 PM EDT Evaluation [facility] Speech Therapy [address] [facility] [address] [place] [phone] Jessica Hull, HABILITATION WORKER 09/10/2024 9:10 AM EDT Office Visit Gastroenterology - [address] [facility] [address] [place] [phone] Leif Burciaga PA 299 [facility] [address] [place] [address] documented as of this encounter Visit Diagnoses Not on filedocumented in this encounter Care Teams Pedodontist Relationship Specialty Start Date End Date Bernie Aquino, XIANG [address] [facility] [place] [address] PCP - General Family Medicine 10/05/21 documented as of this encounter
--- OUTSIDE RECORDS SUMMARY | 2024-07-16 19:20 | XMS_ITS | Encounter Summary ---
Author Organization [employer] Address [address] [place] [address] Care Team Providers Care Drilling Superintendent Name Role Phone Bernie Aquino FREELANCE COURT REPORTER Primary Care Provider [phone] Encounter Details Date Type Department Care Team (Late st Contact Info) Description 06/18/2024 Telephone Gastroenterology - [address] [facility] [address] [place] [phone] Leif Burciaga PA [address] [place] [phone] Social History Tobacco Use Types Packs/Day Years [...] 05/20/2024 3:30 AM LANCE Littlejohn, As jenifer Mcdnaiel RN documented in this encounter Progress Notes * Merly Lyons [place] - 06/19/2024 11:20 AM EST SPOKE WITH PT COLON 08/04/24 AT 730AM AT [facility] [place] PER DR SEALS WILL MAIL PREP [...] - for anemia and elevated fecal calprotectin [facility] 7 days prior Skip other diabetic meds [...] Info) Description 07/22/2024 9:00 AM EDT Appointment [facility] Infusion Center [address] [facility] [address] 2nd [place] [phone] 07/30/2024 2:30 PM EDT Evaluation [facility] Speech Therapy [address] [facility] [address] [place] [phone] Jessica Hull, INSTRUCTIONAL SUPPORT SERVICES DIRECTOR 09/10/2024 9:10 AM EDT Office Visit Gastroenterology - [address] [facility] [address] [place] [address] Leif Burciaga PA [address] [facility] [address] [place] [address] documented as of this encounter Visit Diagnoses Not on filedocumented in this encounter Care Teams Drilling Superintendent Relationship Specialty Start Date End Date Bernie Aquino, XIANG [address] [facility] [place] [address] PCP - General Family Medicine 10/05/21 documented as of this encounter
--- OUTSIDE RECORDS SUMMARY | 2024-07-16 19:20 | XMS_ITS | Encounter Summary ---
Author Organization [employer] Address [address] [place] [address] Care Team Providers Care Buffet Runner Name Role Phone Bernie Aquino LABORER OPERATOR Primary Care Provider Encounter Details Date Type Department Care Team (Late st Contact Info) Description 06/27/2024 7:41 AM EST Anesthesia Event [facility] Endoscopy [address] [place] [phone] Silvia Brooks MD [address] [place] [id number] Rekha Gamble CRNA [address] [place] [address] [place] [address] Anesthesia Record Procedure Summary Procedure Name Responsible [...] Dr Stout; Chest 09/12/18 1300 by Audrey Muller RN Peripheral IV Placement Date: 06/27/24; Placement Time: 717; Catheter Size: 20 G; Orientation: Posterior, Right; Location: Hand; Insertion Attempts: 1; Patient Tolerance: Tolerated well; Removal Date: 06/27/24; Removal Time: 82206/27/24717 by Angelica Pete RN 06/27/24822 by Eloisa Parada RN documented in this [...] 05/20/2024 3:30 AM Denae Escobedo RN * Do you have serious difficulty walking or climbing stairs? Answer Date of Assessment Author No 05/20/2024 3:30 AM Denae Escobedo RN * Do you have serious difficulty [...] Procedure Summary Date: 06/27/24 Room / Location: [facility] Endoscopy Anesthesia Start: 740 Anesthesia Stop: 810 [...] mouth. (Patient not taking: Reported on 06/13/2024) oymaxvntma-cjqnsusmiunbo-mwyleguc (FIORICET, ESGIC) 50-325-40 mg per tablet Take [...] mouth. (Patient not taking: Reported on 06/13/2024) xtnmqvdqavu-otfpbrgdwouz-hnnzmywpey (Trelegy Ellipta) 100-62.5-25 mcg inhaler Inhale 1 [...] pattern. 2. Nephrolithiasis. No significant change. [place] ([id number]) -------- FINAL REPORT -------- Dictated By: Frannie Eng Dictated Date: 06/16/2024 15:04 ET Assigned Physician: Frannie Eng Reviewed and Electronically Signed By: Frannie Eng Signed Date: 06/16/2024 15:07 ET Workstation ID: [id number] Transcribed By: Self Edit Transcribed Date: 06/16/2024 [...] Signed Date: 06/05/2024 09:31 ET Workstation ID: [id number] Transcribed By: Self Edit Transcribed Date: 06/05/2024 09:29 ET EKG Encounter Date: 06/05/24 ECG 12 lead Result Value Ventricular Rate ECG 99 Atrial Rate 99 P-R Interval 162 QRS Duration 92 Q-T Interval 376 QTc 482 P Wave Penrose 28 R Penrose 29 T Penrose 44 ECG Interpretation Normal sinus rhythm Prolonged [...] discussed with patient. Anesthesia Plan discussed with COMPUTER LANGUAGE CODER. Anesthesia Evaluation Airway Mallampati: II Thyromental distance: [...] Description 07/22/2024 9:00 AM EDT Appointment [facility] Infusion Center [address] 2nd [place] [phone] 07/30/2024 2:30 PM EDT Evaluation [facility] Speech Therapy [address] [facility] [address] [place] [phone] Jessica Hull, FLOOR SPECIALIST 09/10/2024 9:10 AM EDT Office Visit Gastroenterology - [address] [facility] [address] [place] [phone] Leif Burciaga PA [address] [facility] [address] [place] [address] documented as of this encounter Visit Diagnoses [...] mg documented in this encounter Care Teams Buffet Runner Relationship Specialty Start Date End Date Bernie Aquino NP [address] [facility] [place] [address] PCP - General Family Medicine 10/05/21 documented as of this encounter
--- OUTSIDE RECORDS SUMMARY | 2024-07-16 19:20 | XMS_ITS | Clinical Summary ---
Author Organization [facility] Address [address] [place] [address] Phone Care Team Providers Care Health Care Aide Name Role Phone Unavailable Primary Care Provider [...] 01/23/2011, 02/16/2010, Additional history exists Insurance [facility]
--- NOTE | 2024-07-16 19:37 | PC.NURSE ---
patient appears to remain at rest preiodiclly making phone calls sounding mildly irritable. patient appears in no distress
[2024-07-16] MEDS: Atorvastatin Calcium 40 MG TABLET PO (22:03)
[2024-07-16] MEDS: OXcarbazepine 300 MG TABLET 900 MG PO (22:03)
[2024-07-16] MEDS: Melatonin 3 MG TABLET 9 MG PO (22:03)
[2024-07-16] MEDS: Venlafaxine HCL 25 MG TABLET 75 MG PO (22:03)
[2024-07-16] MEDS: Topiramate 25 MG TABLET 50 MG PO (22:04)
[2024-07-16] MEDS: Montelukast Sodium 10 MG TABLET PO (22:04)
[2024-07-16] MEDS: Gabapentin 600 MG TABLET PO (22:04)
[2024-07-16] MEDS: metFORMIN HCl 1,000 MG TABLET 1000 MG PO (22:04)
[2024-07-16] MEDS: Loratadine 10 MG TABLET PO (22:04)
[2024-07-16] MEDS: Acetaminophen 325 MG TABLET 650 MG PO (22:16)
--- NOTE | 2024-07-16 22:29 | PHA.MEDREC ---
Addendum entered by Dale Mayen 07/16/24 22:50: reviewed Original Note: Pharmacy Consult ? Medication Reconciliation Pharmacy reviewed med rec done by nursing. Spoke with patient about some of her medications and she was calm an cooperative with me. She confirmed she is taking the insulin lispro as needed and stated she only takes it when she is taking Prednisone due to the Prednisone spiking her blood pressure. She confirmed she uses the Prednisone 20mg tab as needed for inflammation episodes and states she took one dose of that yesterday. She confirmed The Trulicity 1.5mg injection once a week and confirmed she takes it on Saturdays and took it this past Wednesday 07/12. She confirmed she takes Hydroxyzine 10mg tabs and confirmed she takes 40 mg (4 tabs) at bedtime, she also has a Hydroxyzine 25mg tab that she sometimes will take 1-2 tab as needed for anxiety or insomnia. She confirmed her Incassia 0.35mg control pill and claim she has not taken them in about 3 days. She claims she last took her medications yesterday morning.
[2024-07-16] MEDS: Ondansetron ODT 4 MG TAB.RAPDIS TRANSLINGU (23:29)
--- NOTE | 2024-07-16 23:54 | PC.NURSE ---
Took over care from RN Shani, pt sleeping at this time.
[2024-07-17 05:05] VITALS: BP 149/90; PULSE 100; RESP 16; TEMP 36.8; O2SAT 95
[2024-07-17 07:40] LABS: Glucose, Whole Blood 139 mg/dL (60-115)
[2024-07-17] MEDS: Acetaminophen 325 MG TABLET 975 MG PO (07:41)
[2024-07-17] MEDS: Omeprazole 40 MG CAPSULE.DR PO ×2 (07:41→20:30)
[2024-07-17] MEDS: Levothyroxine Sodium 50 MCG TABLET PO (07:41)
[2024-07-17] MEDS: Loratadine 10 MG TABLET PO ×2 (08:04→20:30)
[2024-07-17] MEDS: Spironolactone 25 MG TABLET 50 MG PO ×2 (08:04→16:30)
[2024-07-17] MEDS: Topiramate 25 MG TABLET 50 MG PO ×2 (08:04→20:30)
[2024-07-17] MEDS: Gabapentin 600 MG TABLET PO ×2 (08:05→20:30)
[2024-07-17] MEDS: lamoTRIgine 25 MG TABLET 50 MG PO (08:05)
[2024-07-17] MEDS: metFORMIN HCl 1,000 MG TABLET 1000 MG PO ×2 (08:05→20:30)
[2024-07-17] MEDS: OXcarbazepine 300 MG TABLET 900 MG PO ×2 (08:05→20:30)
--- NOTE | 2024-07-17 08:52 | PC.NURSE ---
Awaiting missing 09:00 meds. per pharmacy at this time.
[2024-07-17] MEDS: hydrOXYzine HCL 25 MG TABLET PO ×2 (09:07→15:03)
[2024-07-17 13:00] VITALS: BP 121/88; PULSE 99; RESP 18; TEMP 36.8; O2SAT 97
[2024-07-17] MEDS: Magnesium Oxide 400 MG TABLET PO (13:21)
[2024-07-17] MEDS: SUMAtriptan succinate 50 MG TABLET PO (13:21)
[2024-07-17] MEDS: Butalb/Acetamin/Caff 50/325/40 TABLET 1 TAB PO (13:21)
[2024-07-17] MEDS: Colchicine 0.6 MG TABLET 1.8 MG PO (13:29)
[2024-07-17] MEDS: Ondansetron ODT 4 MG TAB.RAPDIS TRANSLINGU (13:32)
[2024-07-17 13:38] VITALS: BMI 28.7
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
[2024-07-17 16:30] VITALS: BP 141/93
[2024-07-17 17:04] LABS: Glucose, Whole Blood 168 mg/dL (60-115)
[2024-07-17 19:45] LABS: Anion Gap 17 (12-20)
[2024-07-17 20:00] VITALS: BP 119/66; PULSE 122; TEMP 37.2; O2SAT 95
[2024-07-17] MEDS: Venlafaxine HCL 25 MG TABLET 75 MG PO (20:30)
[2024-07-17] MEDS: Montelukast Sodium 10 MG TABLET PO (20:30)
[2024-07-17] MEDS: Atorvastatin Calcium 40 MG TABLET PO (20:30)
[2024-07-17] MEDS: hydrOXYzine HCL 10 MG TABLET 40 MG PO (20:30)
[2024-07-17] MEDS: Melatonin 3 MG TABLET 9 MG PO (20:32)
[2024-07-17] MEDS: Acetaminophen 325 MG TABLET 650 MG PO (20:32)
[2024-07-17 20:54] LABS: Alanine Aminotransferase 41 U/L (0-31); Albumin Level 4.6 g/dL (3.5-5.0); Alkaline Phosphatase 135 U/L (39-117); Aspartate Amino Transferase 34 U/L (5-31); Bilirubin Total 0.3 mg/dL (0.0-1.0); Blood Urea Nitrogen 18 mg/dL (9-16); Calcium 9.2 mg/dL (8.4-10.2); Carbon Dioxide 18 mmol/L (22-29); Chloride 110 mmol/L (96-108); Creatinine Clr Calc Pharmacy 60.2; Estimated Glomerular Filt Rate 51; Glucose Random 132 mg/dL (60-115); Potassium 3.8 mmol/L (3.3-5.1); Sodium 141 mmol/L (135-145)
[2024-07-17 21:10] LABS: Glucose, Whole Blood 192 mg/dL (60-115)
[2024-07-18] MEDS: hydrOXYzine HCL 25 MG TABLET PO ×3 (02:01→17:08)
[2024-07-18] MEDS: Levothyroxine Sodium 50 MCG TABLET PO (05:51)
[2024-07-18] MEDS: Ondansetron ODT 4 MG TAB.RAPDIS TRANSLINGU (05:51)
[2024-07-18] MEDS: Omeprazole 40 MG CAPSULE.DR PO ×2 (05:51→21:37)
--- NOTE | 2024-07-18 05:57 | PC.NURSE ---
At approximately 0550, this patient approached this writer technical publications and stated I need the phone number to the library, I need to have my dad supervisor picking crew a book for me. This writer technical publications asked which library, so the number could be acquired. The patient then stated No, I need my phone. This writer technical publications enquired as to why the phone was necessary, and the patient stated Well, it's not really the phone number I need, it's the email from the library...I had requested the book and I need my library card number, it's in the email. They [staff] let me do it yesterday. This writer technical publications explained that phones are placed in tamper proof bags and not available. The patient appeared to become annoyed, telling this writer technical publications that her wouldn't get her book, and her dad didn't have the library card number to supervisor picking crew the book. Then she stated my niece works there, but she just puts books away. This writer technical publications reiterated that it was not standard for patients to access their phones unless there was some extenuating circumstance, and that this writer technical publications would confer with day shift. The patient accepted this.
--- NOTE | 2024-07-18 06:28 | PC.NURSE ---
Patient approached this telegraphic typewriter operator chief and stated I don't know why they take my blood sugar four times a day. They should take a fasting blood sugar. This telegraphic typewriter operator chief explained to the patient that the timing of the glucose testing is ordered by the providers. Patient was advised to speak with providers if she wanted to confer regarding these orders.
[2024-07-18 08:00] VITALS: BP 125/75; PULSE 83; RESP 18; TEMP 36.3; O2SAT 98
[2024-07-18 08:26] LABS: Glucose, Whole Blood 181 mg/dL (60-115)
[2024-07-18 08:59] LABS: Estimated Average Glucose 163 mg/dL; Hemoglobin A1c % 7.3 % (<6.0)
--- NOTE | 2024-07-18 09:04 | PC.NURSE ---
Meredith declines the flu vaccine.
[2024-07-18] MEDS: Acetaminophen 325 MG TABLET 650 MG PO ×2 (09:05→17:08)
[2024-07-18] MEDS: lamoTRIgine 25 MG TABLET 50 MG PO (09:06)
[2024-07-18] MEDS: Loratadine 10 MG TABLET PO ×2 (09:06→21:36)
[2024-07-18] MEDS: Colchicine 0.6 MG TABLET 1.8 MG PO (09:06)
[2024-07-18] MEDS: Gabapentin 600 MG TABLET PO ×2 (09:06→21:38)
[2024-07-18] MEDS: OXcarbazepine 300 MG TABLET 900 MG PO ×2 (09:06→21:35)
[2024-07-18] MEDS: Topiramate 25 MG TABLET 50 MG PO ×2 (09:06→21:37)
[2024-07-18] MEDS: metFORMIN HCl 1,000 MG TABLET 1000 MG PO ×2 (09:06→21:36)
[2024-07-18] MEDS: Spironolactone 25 MG TABLET 50 MG PO ×2 (09:06→17:09)
[2024-07-18 09:27] LABS: Cholesterol 215 mg/dL (<200); HDL Cholesterol 37 mg/dL (>40); LDL Cholesterol Calculated 135 mg/dL (<100); Triglycerides 217 mg/dL (<150)
[2024-07-18] MEDS: Magnesium Oxide 400 MG TABLET PO (12:02)
[2024-07-18 13:07] LABS: Glucose, Whole Blood 105 mg/dL (60-115)
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
[2024-07-18 17:04] LABS: Glucose, Whole Blood 119 mg/dL (60-115)
[2024-07-18 20:00] VITALS: BP 116/81; PULSE 98; RESP 18; TEMP 36.8; O2SAT 97
[2024-07-18 21:19] LABS: Glucose, Whole Blood 137 mg/dL (60-115)
[2024-07-18] MEDS: Atorvastatin Calcium 40 MG TABLET PO (21:35)
[2024-07-18] MEDS: Montelukast Sodium 10 MG TABLET PO (21:36)
[2024-07-18] MEDS: hydrOXYzine HCL 10 MG TABLET 40 MG PO (21:36)
[2024-07-18] MEDS: Venlafaxine HCL 25 MG TABLET 75 MG PO (21:38)
[2024-07-18] MEDS: Melatonin 3 MG TABLET 9 MG PO (21:38)
[2024-07-19] MEDS: hydrOXYzine HCL 25 MG TABLET PO ×2 (02:24→09:53)
[2024-07-19] MEDS: Levothyroxine Sodium 50 MCG TABLET PO (05:56)
[2024-07-19] MEDS: Ondansetron ODT 4 MG TAB.RAPDIS TRANSLINGU ×2 (05:56→22:35)
[2024-07-19] MEDS: Omeprazole 40 MG CAPSULE.DR PO ×2 (05:56→20:53)
[2024-07-19] MEDS: Acetaminophen 325 MG TABLET 650 MG PO ×2 (05:58→15:34)
[2024-07-19 08:00] VITALS: BP 118/69; PULSE 99; RESP 18; TEMP 36.9; O2SAT 96
[2024-07-19 08:19] LABS: Glucose, Whole Blood 235 mg/dL (60-115)
[2024-07-19] MEDS: Insulin Lispro 100 UNIT/ML 3 ML VIAL SUBCUT (09:00)
[2024-07-19] MEDS: Spironolactone 25 MG TABLET 50 MG PO ×2 (09:01→19:35)
[2024-07-19] MEDS: metFORMIN HCl 1,000 MG TABLET 1000 MG PO ×2 (09:01→20:52)
[2024-07-19] MEDS: Gabapentin 600 MG TABLET PO ×2 (09:01→20:52)
[2024-07-19] MEDS: Multivitamin TABLET 1 TAB PO (09:01)
[2024-07-19] MEDS: Colchicine 0.6 MG TABLET 1.8 MG PO (09:02)
[2024-07-19] MEDS: lamoTRIgine 25 MG TABLET 50 MG PO (09:02)
[2024-07-19] MEDS: Topiramate 25 MG TABLET 50 MG PO ×2 (09:02→20:55)
[2024-07-19] MEDS: OXcarbazepine 300 MG TABLET 900 MG PO ×2 (09:02→20:53)
[2024-07-19] MEDS: Loratadine 10 MG TABLET PO ×2 (09:02→20:52)
--- NOTE | 2024-07-19 10:06 | HO.PSYCHPN ---
Subjective Subjective Date of Service: 07/19/24 Reason For Visit: depressed Subjective Notes: Conditional Voluntary Interim History: Patient was seen and discussed in rounds today. Records and plans were reviewed. She has been doing a little better. No AVH. Continues to have some right periorbital and temporal discomfort/pain. CT scan x-rays were done yesterday. CT scan is negative and sinus x-rays to be read. She talked about her gabapentin which was recently decreased but will wait and see whether the current dose is sufficient. She is comfortable with that plan. No SI. Review of Systems Review of Systems Right periorbital and temporal discomfort/pain Yes all other systems are reviewed and are negative Mental Status Exam Mental Status Exam Narrative: In today's visit she is alert, oriented and pleasant. Normal speech. Good eye contact. Affect is appropriate and varied. No signs of psychosis. No cognitive deficits on gross observation. No SI. Judgment is intact. Moves all limbs. No gait abnormalities. Diagnostics Vital Signs (24Hr): Vital Signs - 24 hr 07/18/24 20:00 07/19/24 08:00 Temperature 98.2 F 98.5 F Pulse Rate 98 99 Respiratory Rate 18 18 Blood Pressure 116/81 118/69 Pulse Oximetry 97 96 Oxygen Delivery Method Room Air Room Air BMI result Body Mass Index 28.7 Labs 07/16/24 16:37 07/17/24 19:20 Labs: Laboratory Results - last 48 hr 07/17/24 07/17/24 07/17/24 16:59 19:20 20:57 Sodium 141 Potassium 3.8 Chloride 110 H Carbon Dioxide 18 L Anion Gap 17 BUN 18 H Creatinine 1.14 Estim Creat Clear Calc 60.2 Estimated GFR 51 POC Glucose 168 H 192 H Random Glucose 132 H Estimat Average Glucose Hemoglobin A1c % Calcium 9.2 Total Bilirubin 0.3 AST 34 H ALT 41 H Alkaline Phosphatase 135 H Total Protein 8.0 Albumin 4.6 Triglycerides Cholesterol LDL Cholesterol, Calc HDL Cholesterol TSH 07/18/24 07/18/24 07/18/24 07:38 08:21 13:03 Sodium Potassium Chloride Carbon Dioxide Anion Gap BUN Creatinine Estim Creat Clear Calc Estimated GFR POC Glucose 181 H 105 Random Glucose Estimat Average Glucose 163 Hemoglobin A1c % 7.3 H Calcium Total Bilirubin AST ALT Alkaline Phosphatase Total Protein Albumin Triglycerides 217 H Cholesterol 215 H LDL Cholesterol, Calc 135 H HDL Cholesterol 37 L TSH 2.10 07/18/24 07/18/24 07/19/24 16:59 21:15 08:09 Sodium Potassium Chloride Carbon Dioxide Anion Gap BUN Creatinine Estim Creat Clear Calc Estimated GFR POC Glucose 119 H 137 H 235 H Random Glucose Estimat Average Glucose Hemoglobin A1c % Calcium Total Bilirubin AST ALT Alkaline Phosphatase Total Protein Albumin Triglycerides Cholesterol LDL Cholesterol, Calc HDL Cholesterol TSH Medications Medications Current Medications Acetaminophen (Acetaminophen 325 Mg Tablet) 650 mg PO Q6H PRN PRN Reason: Headache/Pain, Scale 1-10 Last Admin: 07/19/24 05:58 Dose: 650 mg Acetaminophen/Butalbital/Caffeine (Butalb/Acetamin/Caff 50/325/40 Tablet) 1 tab PO Q4H PRN PRN Reason: Migraine Headache Last Admin: 07/17/24 13:21 Dose: 1 tab Al Hydroxide/Mg Hydroxide (Magnesium Hydrox/Alum Hydrox 30 Ml Oral.Susp) 30 ml PO Q6H PRN PRN Reason: Heartburn/Nausea Atorvastatin Calcium (Atorvastatin Calcium 40 Mg Tablet) 40 mg PO BEDTIME [facility] Last Admin: 07/18/24 21:35 Dose: 40 mg Colchicine (Colchicine 0.6 Mg Tablet) 1.8 mg PO DAILY [facility] Last Admin: 07/19/24 09:02 Dose: 1.8 mg Docusate Sodium (Docusate Sodium 100 Mg Capsule) 100 mg PO BID PRN PRN Reason: constipation Gabapentin (Gabapentin 600 Mg Tablet) 600 mg PO BID [facility] Last Admin: 07/19/24 09:01 Dose: 600 mg Hydroxyzine HCl (Hydroxyzine Hcl 25 Mg Tablet) 25 mg PO Q6H PRN PRN Reason: mild anxiety Last Admin: 07/19/24 09:53 Dose: 25 mg Hydroxyzine HCl (Hydroxyzine Hcl 10 Mg Tablet) 40 mg PO BEDTIME [facility] Last Admin: 07/18/24 21:36 Dose: 40 mg Insulin Human Lispro (Insulin Lispro 100 Unit/Ml 3 Ml Vial) 0 unit SUBCUT TIDAC PRN; Protocol PRN Reason: Blood Sugar Spikes Last Admin: 07/19/24 09:00 Dose: 4 unit Lamotrigine (Lamotrigine 25 Mg Tablet) 50 mg PO DAILY [facility] Last Admin: 07/19/24 09:02 Dose: 50 mg Levothyroxine Sodium (Levothyroxine Sodium 50 Mcg Tablet) 50 mcg PO DAILY@0600 [facility] Last Admin: 07/19/24 05:56 Dose: 50 mcg Loperamide HCl (Loperamide Hcl 2 Mg Capsule) 4 mg PO QID PRN PRN Reason: Loose Stool Loratadine (Loratadine 10 Mg Tablet) 10 mg PO BID [facility] Last Admin: 07/19/24 09:02 Dose: 10 mg Magnesium Hydroxide (Milk Of Magnesia 30 Ml Oral.Susp) 30 ml PO DAILY PRN PRN Reason: Constipation Magnesium Oxide (Magnesium Oxide 400 Mg Tablet) 400 mg PO DAILY@1200 [facility] Last Admin: 07/18/24 12:02 Dose: 400 mg Melatonin (Melatonin 3 Mg Tablet) 9 mg PO BEDTIME PRN PRN Reason: Insomnia Last Admin: 07/18/24 21:38 Dose: 9 mg Metformin HCl (Metformin Hcl 1,000 Mg Tablet) 1,000 mg PO BID [facility] Last Admin: 07/19/24 09:01 Dose: 1,000 mg Montelukast Sodium (Montelukast Sodium 10 Mg Tablet) 10 mg PO BEDTIME [facility] Last Admin: 07/18/24 21:36 Dose: 10 mg Multivitamins/Vitamin C (Multivitamin Tablet) 1 tab PO DAILY [facility] Last Admin: 07/19/24 09:01 Dose: 1 tab Nicotine Polacrilex (Nicotine Polacrilex 2 Mg Gum) 4 mg BUCCAL Q2H PRN PRN Reason: Nicotine Cravings Pt Owned ( Dulaglutide [ Trulicity] 1.5mg/0. 5ml) 1 each SUBCUT Sa [facility] Pt Owned Med ( Lamotrigine Er Tablets 200mg) 1 each PO BEDTIME [facility] Last Admin: 07/18/24 21:34 Dose: 1 each Pt Owned Med ( Rizatriptan 10mg Tabs) 1 each PO ONCE PRN PRN Reason: Migraine Last Admin: 07/19/24 02:24 Dose: 1 each Pt Owned Med ( Galcanezuman-Gnlm [ Emgality] 120mg/Ml) 1 each SUBCUT Q30D [facility] Last Admin: 07/17/24 20:38 Dose: 1 each Patient Own Medication ( Ferrous Gluconate 324 Mg Tablet) 1 each PO DAILY [facility] Last Admin: 07/19/24 09:48 Dose: 1 each Patient Own Medication ( Combivent Respimat 20-100 Mcg/Actuation ) 1 each PO QID PRN PRN Reason: Shortness of Breath Pt Owned Med ( Norethindrone 0.35mg Tabs) 1 each PO BEDTIME [facility] Last Admin: 07/18/24 21:43 Dose: 1 each Omeprazole (Omeprazole 40 Mg Capsule.Dr) 40 mg PO BID@0630,2100 [facility] Last Admin: 07/19/24 05:56 Dose: 40 mg Ondansetron HCl (Ondansetron Odt 4 Mg Tab.Rapdis) 4 mg TRANSLINGU Q8H PRN PRN Reason: Nausea Last Admin: 07/19/24 05:56 Dose: 4 mg Oxcarbazepine (Oxcarbazepine 300 Mg Tablet) 900 mg PO BID [facility] Last Admin: 07/19/24 09:02 Dose: 900 mg Prednisone (Prednisone 20 Mg Tablet) 40 mg PO DAILY PRN PRN Reason: familial Mediterranean fever Spironolactone (Spironolactone 25 Mg Tablet) 50 mg PO BIDWM [facility] Last Admin: 07/19/24 09:01 Dose: 50 mg Topiramate (Topiramate 25 Mg Tablet) 50 mg PO BID [facility] Last Admin: 07/19/24 09:02 Dose: 50 mg Trazodone HCl (Trazodone Hcl 50 Mg Tablet) 50 mg PO BEDTIME MRX1 PRN PRN Reason: Insomnia Venlafaxine HCl (Venlafaxine Hcl 25 Mg Tablet) 75 mg PO BEDTIME [facility] Last Admin: 07/18/24 21:38 Dose: 75 mg Allergies Allergies Allergy/AdvReac Type Severity Reaction Status Date / Time adhesive [ADHESIVE] Allergy Intermediate BLISTER Verified 07/16/24 16:07 fluticasone [From FLONASE] Allergy Unknown unknown Verified 07/16/24 16:07 meperidine [Demerol] Allergy Unknown vomit Verified 07/16/24 16:07 metoclopramide [From REGLAN] Allergy Unknown DIPLOPIA Verified 07/16/24 16:07 transparent dressing Allergy Unknown rash Verified 07/16/24 16:07 morphine [MORPHINE] AdvReac Severe NAUSEA & Verified 07/16/24 16:07 VOMITING TEGADERM BANDAGE Allergy Intermediate RASH Uncoded 07/16/24 16:07 morphine Allergy Unknown vomit Uncoded 07/16/24 16:07 tape Allergy Unknown rash Uncoded 07/16/24 16:07 From DEMEROL AdvReac Severe NAUSEA & Uncoded 07/16/24 16:07 VOMITING Assessment & Plan Assessment & Plan (1) Suicidal ideation: Status: Acute Code(s): R45.851 - Suicidal ideations (2) PTSD (post-traumatic stress disorder): Status: Acute Code(s): F43.10 - Post-traumatic stress disorder, unspecified (3) Bipolar disorder: Status: Acute Code(s): F31.9 - Bipolar disorder, unspecified Plan Admit, CV, 15 minute checks Re-establish regime ?Family meeting Collateral contact Discharge/Aftercare/Resource planning 07/19/24: Continue current plans and regimen Patient educated on: medication risk/benefits Reason for continued inpatient stay Substantial Risk for: med/psych decompensation Time Spent With Patient Time: Total time managing care of this patient today ____ minutes.
[2024-07-19 12:16] LABS: Glucose, Whole Blood 119 mg/dL (60-115)
[2024-07-19] MEDS: Magnesium Oxide 400 MG TABLET PO (13:06)
[2024-07-19 13:13] LABS: Folate 8.2 ng/mL (> or = 4.0); Vitamin B12 525 pg/mL (200-900)
[2024-07-19 17:37] LABS: Glucose, Whole Blood 122 mg/dL (60-115)
[2024-07-19 19:35] VITALS: BP 110/6
[2024-07-19 19:46] VITALS: BP 110/62; PULSE 91; RESP 18; TEMP 36.9; O2SAT 95
[2024-07-19 20:32] LABS: Glucose, Whole Blood 130 mg/dL (60-115)
[2024-07-19] MEDS: Atorvastatin Calcium 40 MG TABLET PO (20:51)
[2024-07-19] MEDS: hydrOXYzine HCL 10 MG TABLET 40 MG PO (20:52)
[2024-07-19] MEDS: Montelukast Sodium 10 MG TABLET PO (20:53)
[2024-07-19] MEDS: Venlafaxine HCL 25 MG TABLET 75 MG PO (20:55)
[2024-07-19] MEDS: Melatonin 3 MG TABLET 9 MG PO (20:56)
[2024-07-19] MEDS: Loperamide HCl 2 MG CAPSULE 4 MG PO (22:35)
[2024-07-20] MEDS: Omeprazole 40 MG CAPSULE.DR PO ×2 (06:36→22:05)
[2024-07-20] MEDS: Ondansetron ODT 4 MG TAB.RAPDIS TRANSLINGU ×2 (06:37→16:22)
[2024-07-20] MEDS: Levothyroxine Sodium 50 MCG TABLET PO (06:37)
[2024-07-20 08:00] VITALS: BP 98/58; PULSE 81; RESP 18; TEMP 36.4; O2SAT 94
[2024-07-20 08:10] LABS: Glucose, Whole Blood 116 mg/dL (60-115)
[2024-07-20] MEDS: Colchicine 0.6 MG TABLET 1.8 MG PO (08:39)
[2024-07-20] MEDS: lamoTRIgine 25 MG TABLET 50 MG PO (08:39)
[2024-07-20] MEDS: Multivitamin TABLET 1 TAB PO (08:39)
[2024-07-20] MEDS: OXcarbazepine 300 MG TABLET 900 MG PO ×2 (08:39→22:05)
[2024-07-20] MEDS: metFORMIN HCl 1,000 MG TABLET 1000 MG PO ×2 (08:40→22:08)
[2024-07-20] MEDS: Topiramate 25 MG TABLET 50 MG PO ×2 (08:40→22:04)
[2024-07-20] MEDS: Loratadine 10 MG TABLET PO ×2 (08:40→22:07)
[2024-07-20] MEDS: Gabapentin 600 MG TABLET PO ×2 (08:40→22:04)
[2024-07-20] MEDS: Butalb/Acetamin/Caff 50/325/40 TABLET 1 TAB PO (08:40)
[2024-07-20 08:42] VITALS: BP 98/58
--- NOTE | 2024-07-20 08:56 | HO.PSYCHPN ---
Subjective Subjective Date of Service: 07/20/24 Reason For Visit: depressed Subjective Notes: Conditional Voluntary Interim History: Patient was seen and discussed in rounds today. Records and plans were reviewed. She had a better night and slept adequately. She has not used any Flexeril. She has not been able to get someone to bring in her migraine medications and sumatriptan was ordered for the time being. No other complaints. No SI. Medication Compliance: Yes Side effects from medications: No Attending Groups: Yes Review of Systems Review of Systems Some neck pain and right periorbital discomfort. Yes all other systems are reviewed and are negative Mental Status Exam Mental Status Exam Narrative: In today's visit she is alert, oriented and pleasant. Normal speech. Good eye contact. Affect is appropriate and varied. No signs of psychosis. No cognitive deficits on gross observation. No SI. Judgment is intact. Moves all limbs. No gait abnormalities. Diagnostics Vital Signs (24Hr): Vital Signs - 24 hr 07/19/24 08:00 07/19/24 19:35 07/19/24 19:46 Temperature 98.5 F 98.4 F Pulse Rate 99 91 Respiratory Rate 18 18 Blood Pressure 118/69 110/6 L 110/62 Pulse Oximetry 96 95 Oxygen Delivery Method Room Air Room Air 07/20/24 08:42 Temperature Pulse Rate Respiratory Rate Blood Pressure 98/58 L Pulse Oximetry Oxygen Delivery Method BMI result Body Mass Index 28.7 Labs 07/16/24 16:37 07/17/24 19:20 Labs: Laboratory Results - last 48 hr 07/18/24 07/18/24 07/18/24 07:38 08:21 13:03 POC Glucose 181 H 105 Estimat Average Glucose 163 Hemoglobin A1c % 7.3 H Triglycerides 217 H Cholesterol 215 H LDL Cholesterol, Calc 135 H HDL Cholesterol 37 L Vitamin B12 Folate TSH 2.10 07/18/24 07/18/24 07/19/24 16:59 21:15 08:09 POC Glucose 119 H 137 H 235 H Estimat Average Glucose Hemoglobin A1c % Triglycerides Cholesterol LDL Cholesterol, Calc HDL Cholesterol Vitamin B12 Folate TSH 07/19/24 07/19/24 07/19/24 09:15 12:11 17:34 POC Glucose 119 H 122 H Estimat Average Glucose Hemoglobin A1c % Triglycerides Cholesterol LDL Cholesterol, Calc HDL Cholesterol Vitamin B12 525 Folate 8.2 TSH 07/19/24 07/20/24 20:23 07:57 POC Glucose 130 H 116 H Estimat Average Glucose Hemoglobin A1c % Triglycerides Cholesterol LDL Cholesterol, Calc HDL Cholesterol Vitamin B12 Folate TSH Medications Medications Current Medications Acetaminophen (Acetaminophen 325 Mg Tablet) 650 mg PO Q6H PRN PRN Reason: Headache/Pain, Scale 1-10 Last Admin: 07/19/24 15:34 Dose: 650 mg Acetaminophen/Butalbital/Caffeine (Butalb/Acetamin/Caff 50/325/40 Tablet) 1 tab PO Q4H PRN PRN Reason: Migraine Headache Last Admin: 07/20/24 08:40 Dose: 1 tab Al Hydroxide/Mg Hydroxide (Magnesium Hydrox/Alum Hydrox 30 Ml Oral.Susp) 30 ml PO Q6H PRN PRN Reason: Heartburn/Nausea Atorvastatin Calcium (Atorvastatin Calcium 40 Mg Tablet) 40 mg PO BEDTIME [facility] Last Admin: 07/19/24 20:51 Dose: 40 mg Colchicine (Colchicine 0.6 Mg Tablet) 1.8 mg PO DAILY [facility] Last Admin: 07/20/24 08:39 Dose: 1.8 mg Cyclobenzaprine HCl (Cyclobenzaprine Hcl 10 Mg Tablet) 10 mg PO BID PRN PRN Reason: Muscle Spasm Docusate Sodium (Docusate Sodium 100 Mg Capsule) 100 mg PO BID PRN PRN Reason: constipation Gabapentin (Gabapentin 600 Mg Tablet) 600 mg PO BID [facility] Last Admin: 07/20/24 08:40 Dose: 600 mg Hydroxyzine HCl (Hydroxyzine Hcl 25 Mg Tablet) 25 mg PO Q6H PRN PRN Reason: mild anxiety Last Admin: 07/19/24 09:53 Dose: 25 mg Hydroxyzine HCl (Hydroxyzine Hcl 10 Mg Tablet) 40 mg PO BEDTIME [facility] Last Admin: 07/19/24 20:52 Dose: 40 mg Insulin Human Lispro (Insulin Lispro 100 Unit/Ml 3 Ml Vial) 0 unit SUBCUT TIDAC PRN; Protocol PRN Reason: Blood Sugar Spikes Last Admin: 07/19/24 09:00 Dose: 4 unit Lamotrigine (Lamotrigine 25 Mg Tablet) 50 mg PO DAILY [facility] Last Admin: 07/20/24 08:39 Dose: 50 mg Levothyroxine Sodium (Levothyroxine Sodium 50 Mcg Tablet) 50 mcg PO DAILY@0600 [facility] Last Admin: 07/20/24 06:37 Dose: 50 mcg Loperamide HCl (Loperamide Hcl 2 Mg Capsule) 4 mg PO QID PRN PRN Reason: Loose Stool Last Admin: 07/19/24 22:35 Dose: 4 mg Loratadine (Loratadine 10 Mg Tablet) 10 mg PO BID [facility] Last Admin: 07/20/24 08:40 Dose: 10 mg Magnesium Hydroxide (Milk Of Magnesia 30 Ml Oral.Susp) 30 ml PO DAILY PRN PRN Reason: Constipation Magnesium Oxide (Magnesium Oxide 400 Mg Tablet) 400 mg PO DAILY@1200 [facility] Last Admin: 07/19/24 13:06 Dose: 400 mg Melatonin (Melatonin 3 Mg Tablet) 9 mg PO BEDTIME PRN PRN Reason: Insomnia Last Admin: 07/19/24 20:56 Dose: 9 mg Metformin HCl (Metformin Hcl 1,000 Mg Tablet) 1,000 mg PO BID [facility] Last Admin: 07/20/24 08:40 Dose: 1,000 mg Montelukast Sodium (Montelukast Sodium 10 Mg Tablet) 10 mg PO BEDTIME [facility] Last Admin: 07/19/24 20:53 Dose: 10 mg Multivitamins/Vitamin C (Multivitamin Tablet) 1 tab PO DAILY [facility] Last Admin: 07/20/24 08:39 Dose: 1 tab Nicotine Polacrilex (Nicotine Polacrilex 2 Mg Gum) 4 mg BUCCAL Q2H PRN PRN Reason: Nicotine Cravings Pt Owned ( Dulaglutide [ Trulicity] 1.5mg/0. 5ml) 1 each SUBCUT Sa [facility] Last Admin: 07/19/24 17:08 Dose: 1 each Pt Owned Med ( Lamotrigine Er Tablets 200mg) 1 each PO BEDTIME [facility] Last Admin: 07/19/24 20:53 Dose: 1 each Pt Owned Med ( Rizatriptan 10mg Tabs) 1 each PO ONCE PRN PRN Reason: Migraine Last Admin: 07/19/24 17:09 Dose: 1 each Pt Owned Med ( Galcanezuman-Gnlm [ Emgality] 120mg/Ml) 1 each SUBCUT Q30D [facility] Last Admin: 07/17/24 20:38 Dose: 1 each Patient Own Medication ( Ferrous Gluconate 324 Mg Tablet) 1 each PO DAILY [facility] Last Admin: 07/20/24 08:39 Dose: 1 each Patient Own Medication ( Combivent Respimat 20-100 Mcg/Actuation ) 1 each PO QID PRN PRN Reason: Shortness of Breath Pt Owned Med ( Norethindrone 0.35mg Tabs) 1 each PO BEDTIME [facility] Last Admin: 07/19/24 20:54 Dose: 1 each Omeprazole (Omeprazole 40 Mg Capsule.Dr) 40 mg PO BID@0630,2100 [facility] Last Admin: 07/20/24 06:36 Dose: 40 mg Ondansetron HCl (Ondansetron Odt 4 Mg Tab.Rapdis) 4 mg TRANSLINGU Q8H PRN PRN Reason: Nausea Last Admin: 07/20/24 06:37 Dose: 4 mg Oxcarbazepine (Oxcarbazepine 300 Mg Tablet) 900 mg PO BID [facility] Last Admin: 07/20/24 08:39 Dose: 900 mg Prednisone (Prednisone 20 Mg Tablet) 40 mg PO DAILY PRN PRN Reason: familial Mediterranean fever Spironolactone (Spironolactone 25 Mg Tablet) 50 mg PO BIDWM [facility] Last Admin: 07/20/24 08:42 Dose: Not Given Topiramate (Topiramate 25 Mg Tablet) 50 mg PO BID [facility] Last Admin: 07/20/24 08:40 Dose: 50 mg Trazodone HCl (Trazodone Hcl 50 Mg Tablet) 50 mg PO BEDTIME MRX1 PRN PRN Reason: Insomnia Venlafaxine HCl (Venlafaxine Hcl 25 Mg Tablet) 75 mg PO BEDTIME [facility] Last Admin: 07/19/24 20:55 Dose: 75 mg Allergies Allergies Allergy/AdvReac Type Severity Reaction Status Date / Time adhesive [ADHESIVE] Allergy Intermediate BLISTER Verified 07/16/24 16:07 fluticasone [From FLONASE] Allergy Unknown unknown Verified 07/16/24 16:07 meperidine [Demerol] Allergy Unknown vomit Verified 07/16/24 16:07 metoclopramide [From REGLAN] Allergy Unknown DIPLOPIA Verified 07/16/24 16:07 transparent dressing Allergy Unknown rash Verified 07/16/24 16:07 morphine [MORPHINE] AdvReac Severe NAUSEA & Verified 07/16/24 16:07 VOMITING TEGADERM BANDAGE Allergy Intermediate RASH Uncoded 07/16/24 16:07 morphine Allergy Unknown vomit Uncoded 07/16/24 16:07 tape Allergy Unknown rash Uncoded 07/16/24 16:07 From DEMEROL AdvReac Severe NAUSEA & Uncoded 07/16/24 16:07 VOMITING Assessment & Plan Assessment & Plan (1) Suicidal ideation: Status: Acute Code(s): R45.851 - Suicidal ideations (2) PTSD (post-traumatic stress disorder): Status: Acute Code(s): F43.10 - Post-traumatic stress disorder, unspecified (3) Bipolar disorder: Status: Acute Code(s): F31.9 - Bipolar disorder, unspecified Plan Admit, CV, 15 minute checks Re-establish regime ?Family meeting Collateral contact Discharge/Aftercare/Resource planning 07/19/24: Continue current plans and regimen 07/20: Continue current regimen and plans. Sumatriptan p.r.n. ordered Patient educated on: medication risk/benefits Reason for continued inpatient stay Substantial Risk for: med/psych decompensation Time Spent With Patient Time: Total time managing care of this patient today ____ minutes.
[2024-07-20 12:18] LABS: Glucose, Whole Blood 103 mg/dL (60-115)
[2024-07-20] MEDS: Acetaminophen 325 MG TABLET 650 MG PO ×2 (12:52→22:18)
[2024-07-20] MEDS: Magnesium Oxide 400 MG TABLET PO (12:52)
[2024-07-20] MEDS: SUMAtriptan succinate 100 MG TABLET PO (12:52)
[2024-07-20 14:17] LABS: Influenza A PCR NEGATIVE (Negative); Influenza B PCR NEGATIVE (Negative); Resp Syncy Virus RNA Qual PCR NEGATIVE (Negative); SARS COV2 PCR INHOUSE NEGATIVE (Negative)
[2024-07-20] MEDS: Loperamide HCl 2 MG CAPSULE 4 MG PO (16:23)
[2024-07-20 17:10] LABS: Glucose, Whole Blood 92 mg/dL (60-115)
[2024-07-20 18:09] VITALS: BP 111/76
[2024-07-20] MEDS: Spironolactone 25 MG TABLET 50 MG PO (18:09)
[2024-07-20 20:00] VITALS: BP 117/74; PULSE 98; TEMP 37.2; O2SAT 96
[2024-07-20 22:03] LABS: Glucose, Whole Blood 110 mg/dL (60-115)
[2024-07-20] MEDS: Atorvastatin Calcium 40 MG TABLET PO (22:06)
[2024-07-20] MEDS: hydrOXYzine HCL 10 MG TABLET 40 MG PO (22:06)
[2024-07-20] MEDS: Montelukast Sodium 10 MG TABLET PO (22:07)
[2024-07-20] MEDS: Venlafaxine HCL 25 MG TABLET 75 MG PO (22:07)
[2024-07-20] MEDS: Melatonin 3 MG TABLET 9 MG PO (22:23)
[2024-07-21] MEDS: hydrOXYzine HCL 25 MG TABLET PO ×3 (02:45→19:19)
[2024-07-21] MEDS: Ondansetron ODT 4 MG TAB.RAPDIS TRANSLINGU (02:49)
[2024-07-21] MEDS: Omeprazole 40 MG CAPSULE.DR PO ×2 (06:06→21:37)
[2024-07-21] MEDS: Levothyroxine Sodium 50 MCG TABLET PO (06:07)
[2024-07-21] MEDS: Acetaminophen 325 MG TABLET 650 MG PO ×3 (06:08→18:41)
[2024-07-21 08:00] VITALS: BP 119/82; PULSE 90; RESP 18; TEMP 37.1; O2SAT 98
[2024-07-21 08:08] LABS: Glucose, Whole Blood 104 mg/dL (60-115)
[2024-07-21] MEDS: metFORMIN HCl 1,000 MG TABLET 1000 MG PO ×2 (08:42→21:37)
[2024-07-21] MEDS: Topiramate 25 MG TABLET 50 MG PO ×2 (08:42→21:38)
[2024-07-21 08:43] VITALS: BP 119/82
[2024-07-21] MEDS: Gabapentin 600 MG TABLET PO ×3 (08:43→21:38)
[2024-07-21] MEDS: Spironolactone 25 MG TABLET 50 MG PO ×2 (08:43→16:42)
[2024-07-21] MEDS: Loratadine 10 MG TABLET PO ×2 (08:43→21:38)
[2024-07-21] MEDS: Multivitamin TABLET 1 TAB PO (08:44)
[2024-07-21] MEDS: lamoTRIgine 25 MG TABLET 50 MG PO (08:45)
[2024-07-21] MEDS: Colchicine 0.6 MG TABLET 1.8 MG PO (08:45)
[2024-07-21] MEDS: OXcarbazepine 300 MG TABLET 900 MG PO ×2 (08:46→21:37)
--- NOTE | 2024-07-21 11:02 | P.PNPSI_ITS ---
Subjective Subjective Date of Service: 07/21/24 Reason For Visit: depressed Subjective Notes: Conditional Voluntary Healthcare Proxy: No Guardianship: No Medical Problems Affecting Mental Status: No Interim History: Meredith reports she is feeling improved. She is back on her regime. Discussed possibly a small increase of her antidepressant. Has decided to pursue a divorce. She is feeling stronger and I need to organize myself and plan life for myself and my son. I need to move forward. Son came in at the end of the day for a family meeting. Pt was very supportive of him, asked if he had concerns. He reports step father has not been home often but has been helping with the home, pets, supportive of him. Son states he and pt see him differently. Son did express concern that with step father leaving they may need to live with pt's parents who he feels do not accept him for who he is. Pt was very reassuring and supportive of son and seemed to effectively address his concerns regarding this issue. Medication Compliance: Yes Side effects from medications: No Attending Groups: Yes Review of Systems Acute medical concerns: No Review of Systems Review of Systems Denies today Mental Status Exam Mental Status Exam Patient Appearance: Appropriate Patient Orientation: Person, Place, Time and Situation Level of Consciousness: Alert Patient Behavior: Appropriate, Talkative, Cooperative and Good Eye Contact Mood Description: Apprehensive Affect Description: Apprehensive Patient Cognition Impaired: No Ability to Follow Directions: Good Speech Pattern: Appropriate and Spontaneous Speech Memory Description: Intact Hallucinations: None Delusions: Not Present Thought Process: Rumination Thought Content: positive for Circumstantial Depressive Symptoms: Thoughts of /Suicide (denies) Judgement: Good Diagnostics Vital Signs (24Hr): Vital Signs - 24 hr 07/20/24 18:09 07/20/24 20:00 07/21/24 08:00 Temperature 98.9 F 98.8 F Pulse Rate 98 90 Respiratory Rate 18 Blood Pressure 111/76 117/74 119/82 Pulse Oximetry 96 98 Oxygen Delivery Method Room Air Room Air 07/21/24 08:43 Temperature Pulse Rate Respiratory Rate Blood Pressure 119/82 Pulse Oximetry Oxygen Delivery Method BMI result Body Mass Index 28.7 Labs 07/16/24 16:37 07/17/24 19:20 Labs: Laboratory Results - last 48 hr 07/19/24 07/19/24 07/19/24 09:15 12:11 17:34 POC Glucose 119 H 122 H Vitamin B12 525 Folate 8.2 Influenza Type A (PCR) Influenza Type B (PCR) RSV RNA Qual (PCR) SARS-CoV-2 RNA (RT-PCR) 07/19/24 07/20/24 07/20/24 20:23 07:57 12:14 POC Glucose 130 H 116 H 103 Vitamin B12 Folate Influenza Type A (PCR) Influenza Type B (PCR) RSV RNA Qual (PCR) SARS-CoV-2 RNA (RT-PCR) 07/20/24 07/20/24 07/20/24 13:10 17:06 21:56 POC Glucose 92 110 Vitamin B12 Folate Influenza Type A (PCR) NEGATIVE Influenza Type B (PCR) NEGATIVE RSV RNA Qual (PCR) NEGATIVE SARS-CoV-2 RNA (RT-PCR) NEGATIVE 07/21/24 07:57 POC Glucose 104 Vitamin B12 Folate Influenza Type A (PCR) Influenza Type B (PCR) RSV RNA Qual (PCR) SARS-CoV-2 RNA (RT-PCR) Imaging Radiology Impressions: ITS Impressions Sinuses X-Ray 07/18/24 17:20 IMPRESSION: Unremarkable examination of the paranasal sinuses. Electronically signed by: Griffin Patel MD 07/21/2024 08:14 AM EDT Medications Medications Current Medications Acetaminophen (Acetaminophen 325 Mg Tablet) 650 mg PO Q6H PRN PRN Reason: Headache/Pain, Scale 1-10 Last Admin: 07/21/24 06:08 Dose: 650 mg Acetaminophen/Butalbital/Caffeine (Butalb/Acetamin/Caff 50/325/40 Tablet) 1 tab PO Q4H PRN PRN Reason: Migraine Headache Last Admin: 07/20/24 08:40 Dose: 1 tab Al Hydroxide/Mg Hydroxide (Magnesium Hydrox/Alum Hydrox 30 Ml Oral.Susp) 30 ml PO Q6H PRN PRN Reason: Heartburn/Nausea Atorvastatin Calcium (Atorvastatin Calcium 40 Mg Tablet) 40 mg PO BEDTIME [facility] Last Admin: 07/20/24 22:06 Dose: 40 mg Colchicine (Colchicine 0.6 Mg Tablet) 1.8 mg PO DAILY [facility] Last Admin: 07/21/24 08:45 Dose: 1.8 mg Cyclobenzaprine HCl (Cyclobenzaprine Hcl 10 Mg Tablet) 10 mg PO BID PRN PRN Reason: Muscle Spasm Docusate Sodium (Docusate Sodium 100 Mg Capsule) 100 mg PO BID PRN PRN Reason: constipation Gabapentin (Gabapentin 600 Mg Tablet) 600 mg PO BID [facility] Last Admin: 07/21/24 08:43 Dose: 600 mg Hydroxyzine HCl (Hydroxyzine Hcl 25 Mg Tablet) 25 mg PO Q6H PRN PRN Reason: mild anxiety Last Admin: 07/21/24 02:45 Dose: 25 mg Hydroxyzine HCl (Hydroxyzine Hcl 10 Mg Tablet) 40 mg PO BEDTIME [facility] Last Admin: 07/20/24 22:06 Dose: 40 mg Insulin Human Lispro (Insulin Lispro 100 Unit/Ml 3 Ml Vial) 0 unit SUBCUT TIDAC PRN; Protocol PRN Reason: Blood Sugar Spikes Last Admin: 07/19/24 09:00 Dose: 4 unit Lamotrigine (Lamotrigine 25 Mg Tablet) 50 mg PO DAILY [facility] Last Admin: 07/21/24 08:45 Dose: 50 mg Levothyroxine Sodium (Levothyroxine Sodium 50 Mcg Tablet) 50 mcg PO DAILY@0600 [facility] Last Admin: 07/21/24 06:07 Dose: 50 mcg Loperamide HCl (Loperamide Hcl 2 Mg Capsule) 4 mg PO QID PRN PRN Reason: Loose Stool Last Admin: 07/20/24 16:23 Dose: 4 mg Loratadine (Loratadine 10 Mg Tablet) 10 mg PO BID [facility] Last Admin: 07/21/24 08:43 Dose: 10 mg Magnesium Hydroxide (Milk Of Magnesia 30 Ml Oral.Susp) 30 ml PO DAILY PRN PRN Reason: Constipation Magnesium Oxide (Magnesium Oxide 400 Mg Tablet) 400 mg PO DAILY@1200 [facility] Last Admin: 07/20/24 12:52 Dose: 400 mg Melatonin (Melatonin 3 Mg Tablet) 9 mg PO BEDTIME PRN PRN Reason: Insomnia Last Admin: 07/20/24 22:23 Dose: 9 mg Metformin HCl (Metformin Hcl 1,000 Mg Tablet) 1,000 mg PO BID [facility] Last Admin: 07/21/24 08:42 Dose: 1,000 mg Montelukast Sodium (Montelukast Sodium 10 Mg Tablet) 10 mg PO BEDTIME [facility] Last Admin: 07/20/24 22:07 Dose: 10 mg Multivitamins/Vitamin C (Multivitamin Tablet) 1 tab PO DAILY [facility] Last Admin: 07/21/24 08:44 Dose: 1 tab Nicotine Polacrilex (Nicotine Polacrilex 2 Mg Gum) 4 mg BUCCAL Q2H PRN PRN Reason: Nicotine Cravings Pt Owned ( Dulaglutide [ Trulicity] 1.5mg/0. 5ml) 1 each SUBCUT Sa [facility] Last Admin: 07/19/24 17:08 Dose: 1 each Pt Owned Med ( Lamotrigine Er Tablets 200mg) 1 each PO BEDTIME [facility] Last Admin: 07/20/24 22:03 Dose: 1 each Pt Owned Med ( Galcanezuman-Gnlm [ Emgality] 120mg/Ml) 1 each SUBCUT Q30D [facility] Last Admin: 07/17/24 20:38 Dose: 1 each Patient Own Medication ( Ferrous Gluconate 324 Mg Tablet) 1 each PO DAILY [facility] Last Admin: 07/21/24 08:44 Dose: 1 each Patient Own Medication ( Combivent Respimat 20-100 Mcg/Actuation ) 1 each PO QID PRN PRN Reason: Shortness of Breath Pt Owned Med ( Norethindrone 0.35mg Tabs) 1 each PO BEDTIME [facility] Last Admin: 07/20/24 22:08 Dose: 1 each Pt Owned Med ( Rizatriptan 10mg Tabs) 1 each PO DAILY PRN PRN Reason: Migraine Last Admin: 07/21/24 02:49 Dose: 1 each Omeprazole (Omeprazole 40 Mg Capsule.Dr) 40 mg PO BID@0630,2100 [facility] Last Admin: 07/21/24 06:06 Dose: 40 mg Ondansetron HCl (Ondansetron Odt 8 Mg Tab.Rapdis) 8 mg TRANSLINGU Q12H PRN PRN Reason: Nausea and Vomiting Oxcarbazepine (Oxcarbazepine 300 Mg Tablet) 900 mg PO BID [facility] Last Admin: 07/21/24 08:46 Dose: 900 mg Prednisone (Prednisone 20 Mg Tablet) 40 mg PO DAILY PRN PRN Reason: familial Mediterranean fever Spironolactone (Spironolactone 25 Mg Tablet) 50 mg PO BIDWM [facility] Last Admin: 07/21/24 08:43 Dose: 50 mg Sumatriptan Succinate (Sumatriptan Succinate 100 Mg Tablet) 100 mg PO DAILY MRX1 PRN PRN Reason: Migraine Headache Last Admin: 07/20/24 12:52 Dose: 100 mg Topiramate (Topiramate 25 Mg Tablet) 50 mg PO BID [facility] Last Admin: 07/21/24 08:42 Dose: 50 mg Trazodone HCl (Trazodone Hcl 50 Mg Tablet) 50 mg PO BEDTIME MRX1 PRN PRN Reason: Insomnia Venlafaxine HCl (Venlafaxine Hcl 25 Mg Tablet) 75 mg PO BEDTIME [facility] Last Admin: 07/20/24 22:07 Dose: 75 mg Allergies Allergies Allergy/AdvReac Type Severity Reaction Status Date / Time adhesive [ADHESIVE] Allergy Intermediate BLISTER Verified 07/16/24 16:07 fluticasone [From FLONASE] Allergy Unknown unknown Verified 07/16/24 16:07 meperidine [Demerol] Allergy Unknown vomit Verified 07/16/24 16:07 metoclopramide [From REGLAN] Allergy Unknown DIPLOPIA Verified 07/16/24 16:07 transparent dressing Allergy Unknown rash Verified 07/16/24 16:07 morphine [MORPHINE] AdvReac Severe NAUSEA & Verified 07/16/24 16:07 VOMITING TEGADERM BANDAGE Allergy Intermediate RASH Uncoded 07/16/24 16:07 morphine Allergy Unknown vomit Uncoded 07/16/24 16:07 tape Allergy Unknown rash Uncoded 07/16/24 16:07 From DEMEROL AdvReac Severe NAUSEA & Uncoded 07/16/24 16:07 VOMITING Assessment & Plan Assessment & Plan (1) Suicidal ideation: Status: Acute Code(s): R45.851 - Suicidal ideations (2) PTSD (post-traumatic stress disorder): Status: Acute Code(s): F43.10 - Post-traumatic stress disorder, unspecified (3) Bipolar disorder: Status: Acute Code(s): F31.9 - Bipolar disorder, unspecified Plan Admit, CV, 15 minute checks Re-establish regime ?Family meeting Collateral contact Discharge/Aftercare/Resource planning 07/19/24: Continue current plans and regimen 07/20: Continue current regimen and plans. Sumatriptan p.r.n. ordered 07/21: Increase Venlafaxine to 112.5 mg daily Discharge planning for this week. Pt feeling prepared to discharge and has plans to re-establish her life, pursue divorce. Reason for continued inpatient stay Substantial Risk for: stable for discharge Time Spent With Patient Time: Total time managing care of this patient today ____ minutes.
[2024-07-21 12:01] LABS: Glucose, Whole Blood 93 mg/dL (60-115)
[2024-07-21] MEDS: Butalb/Acetamin/Caff 50/325/40 TABLET 1 TAB PO (12:24)
[2024-07-21] MEDS: Ondansetron ODT 8 MG TAB.RAPDIS TRANSLINGU (12:27)
[2024-07-21] MEDS: Magnesium Oxide 400 MG TABLET PO (12:44)
[2024-07-21 16:42] VITALS: BP 106/74
[2024-07-21 17:37] LABS: Glucose, Whole Blood 133 mg/dL (60-115)
[2024-07-21 20:00] VITALS: BP 112/65; PULSE 110; RESP 18; TEMP 36.9; O2SAT 96
[2024-07-21 20:44] LABS: Glucose, Whole Blood 152 mg/dL (60-115)
[2024-07-21] MEDS: Montelukast Sodium 10 MG TABLET PO (21:37)
[2024-07-21] MEDS: Atorvastatin Calcium 40 MG TABLET PO (21:37)
[2024-07-21] MEDS: Venlafaxine HCL 25 MG TABLET 112.5 MG PO (21:37)
[2024-07-21] MEDS: hydrOXYzine HCL 10 MG TABLET 40 MG PO (21:38)
[2024-07-22] MEDS: Acetaminophen 325 MG TABLET 650 MG PO ×3 (05:37→20:06)
[2024-07-22] MEDS: Levothyroxine Sodium 50 MCG TABLET PO (05:37)
[2024-07-22] MEDS: Omeprazole 40 MG CAPSULE.DR PO ×2 (05:38→20:05)
[2024-07-22] MEDS: hydrOXYzine HCL 25 MG TABLET PO ×3 (05:38→20:14)
[2024-07-22 08:38] LABS: Glucose, Whole Blood 161 mg/dL (60-115)
[2024-07-22 08:57] VITALS: BP 127/74; PULSE 93; RESP 16; TEMP 37.4; O2SAT 96
[2024-07-22] MEDS: metFORMIN HCl 1,000 MG TABLET 1000 MG PO ×2 (08:57→20:06)
[2024-07-22] MEDS: Spironolactone 25 MG TABLET 50 MG PO ×2 (08:57→17:43)
[2024-07-22] MEDS: OXcarbazepine 300 MG TABLET 900 MG PO ×2 (08:57→20:06)
[2024-07-22] MEDS: Topiramate 25 MG TABLET 50 MG PO ×2 (08:57→20:05)
[2024-07-22] MEDS: Loratadine 10 MG TABLET PO ×2 (08:57→20:06)
[2024-07-22] MEDS: Multivitamin TABLET 1 TAB PO (08:57)
[2024-07-22] MEDS: Gabapentin 600 MG TABLET PO ×3 (08:57→20:07)
[2024-07-22] MEDS: lamoTRIgine 25 MG TABLET 50 MG PO (08:58)
[2024-07-22] MEDS: Colchicine 0.6 MG TABLET 1.8 MG PO (08:58)
[2024-07-22] MEDS: Ondansetron ODT 8 MG TAB.RAPDIS TRANSLINGU ×2 (09:03→20:05)
--- NOTE | 2024-07-22 09:50 | HO.PSYCHPN ---
Subjective Subjective Date of Service: 07/22/24 Reason For Visit: depressed Subjective Notes: Conditional Voluntary Healthcare Proxy: No Guardianship: No Medical Problems Affecting Mental Status: No Interim History: I am ready Discussed discharge with pt today. She has offered a couples meeting x 2 with our team. He has declined. She is looking for legal resources. She has had one medication change since admit with time to re-establish her regime during this time. She reports no SI,HI,AH,VH, feeling ready, regenerated and prepared to make some changes to benefit her life and that of her son. She will return to stable housing (parents own her home). She discussed parents perception of her illness and her efforts not to transfer their philosophy to her son Review of Systems Review of Systems Denies today Mental Status Exam Mental Status Exam Patient Appearance: Appropriate Patient Orientation: Person, Place, Time and Situation Level of Consciousness: Alert Patient Behavior: Appropriate, Talkative, Cooperative and Good Eye Contact Mood Description: Apprehensive Affect Description: Apprehensive Patient Cognition Impaired: No Ability to Follow Directions: Good Speech Pattern: Appropriate and Spontaneous Speech Memory Description: Intact Hallucinations: None Delusions: Not Present Thought Process: Rumination Thought Content: positive for Circumstantial Depressive Symptoms: Thoughts of /Suicide (denies) Judgement: Good Diagnostics Vital Signs (24Hr): Vital Signs - 24 hr 07/21/24 16:42 07/21/24 20:00 07/22/24 08:57 Temperature 98.4 F Pulse Rate 110 H Respiratory Rate 18 Blood Pressure 106/74 112/65 127/74 Pulse Oximetry 96 Oxygen Delivery Method Room Air 07/22/24 08:57 Temperature 99.3 F Pulse Rate 93 Respiratory Rate 16 Blood Pressure 127/74 Pulse Oximetry 96 Oxygen Delivery Method Room Air BMI result Body Mass Index 28.7 Labs 07/16/24 16:37 07/17/24 19:20 Labs: Laboratory Results - last 48 hr 07/20/24 07/20/24 07/20/24 12:14 13:10 17:06 POC Glucose 103 92 Influenza Type A (PCR) NEGATIVE Influenza Type B (PCR) NEGATIVE RSV RNA Qual (PCR) NEGATIVE SARS-CoV-2 RNA (RT-PCR) NEGATIVE 07/20/24 07/21/24 07/21/24 21:56 07:57 11:50 POC Glucose 110 104 93 Influenza Type A (PCR) Influenza Type B (PCR) RSV RNA Qual (PCR) SARS-CoV-2 RNA (RT-PCR) 07/21/24 07/21/24 07/22/24 17:32 20:40 08:30 POC Glucose 133 H 152 H 161 H Influenza Type A (PCR) Influenza Type B (PCR) RSV RNA Qual (PCR) SARS-CoV-2 RNA (RT-PCR) Imaging Radiology Impressions: ITS Impressions Sinuses X-Ray 07/18/24 17:20 IMPRESSION: Unremarkable examination of the paranasal sinuses. Electronically signed by: Griffin Patel MD 07/21/2024 08:14 AM EDT RP Medications Medications Current Medications Acetaminophen (Acetaminophen 325 Mg Tablet) 650 mg PO Q6H PRN PRN Reason: Headache/Pain, Scale 1-10 Last Admin: 07/22/24 05:37 Dose: 650 mg Acetaminophen/Butalbital/Caffeine (Butalb/Acetamin/Caff 50/325/40 Tablet) 1 tab PO Q4H PRN PRN Reason: Migraine Headache Last Admin: 07/21/24 12:24 Dose: 1 tab Al Hydroxide/Mg Hydroxide (Magnesium Hydrox/Alum Hydrox 30 Ml Oral.Susp) 30 ml PO Q6H PRN PRN Reason: Heartburn/Nausea Atorvastatin Calcium (Atorvastatin Calcium 40 Mg Tablet) 40 mg PO BEDTIME [facility] Last Admin: 07/21/24 21:37 Dose: 40 mg Colchicine (Colchicine 0.6 Mg Tablet) 1.8 mg PO DAILY [facility] Last Admin: 07/22/24 08:58 Dose: 1.8 mg Cyclobenzaprine HCl (Cyclobenzaprine Hcl 10 Mg Tablet) 10 mg PO BID PRN PRN Reason: Muscle Spasm Docusate Sodium (Docusate Sodium 100 Mg Capsule) 100 mg PO BID PRN PRN Reason: constipation Gabapentin (Gabapentin 600 Mg Tablet) 600 mg PO TID [facility] Last Admin: 07/22/24 08:57 Dose: 600 mg Hydroxyzine HCl (Hydroxyzine Hcl 25 Mg Tablet) 25 mg PO Q6H PRN PRN Reason: mild anxiety Last Admin: 07/22/24 05:38 Dose: 25 mg Hydroxyzine HCl (Hydroxyzine Hcl 10 Mg Tablet) 40 mg PO BEDTIME [facility] Last Admin: 07/21/24 21:38 Dose: 40 mg Insulin Human Lispro (Insulin Lispro 100 Unit/Ml 3 Ml Vial) 0 unit SUBCUT TIDAC PRN; Protocol PRN Reason: Blood Sugar Spikes Last Admin: 07/19/24 09:00 Dose: 4 unit Lamotrigine (Lamotrigine 25 Mg Tablet) 50 mg PO DAILY [facility] Last Admin: 07/22/24 08:58 Dose: 50 mg Levothyroxine Sodium (Levothyroxine Sodium 50 Mcg Tablet) 50 mcg PO DAILY@0600 [facility] Last Admin: 07/22/24 05:37 Dose: 50 mcg Loperamide HCl (Loperamide Hcl 2 Mg Capsule) 4 mg PO QID PRN PRN Reason: Loose Stool Last Admin: 07/20/24 16:23 Dose: 4 mg Loratadine (Loratadine 10 Mg Tablet) 10 mg PO BID [facility] Last Admin: 07/22/24 08:57 Dose: 10 mg Magnesium Hydroxide (Milk Of Magnesia 30 Ml Oral.Susp) 30 ml PO DAILY PRN PRN Reason: Constipation Magnesium Oxide (Magnesium Oxide 400 Mg Tablet) 400 mg PO DAILY@1200 [facility] Last Admin: 07/21/24 12:44 Dose: 400 mg Melatonin (Melatonin 3 Mg Tablet) 9 mg PO BEDTIME PRN PRN Reason: Insomnia Last Admin: 07/20/24 22:23 Dose: 9 mg Metformin HCl (Metformin Hcl 1,000 Mg Tablet) 1,000 mg PO BID [facility] Last Admin: 07/22/24 08:57 Dose: 1,000 mg Montelukast Sodium (Montelukast Sodium 10 Mg Tablet) 10 mg PO BEDTIME [facility] Last Admin: 07/21/24 21:37 Dose: 10 mg Multivitamins/Vitamin C (Multivitamin Tablet) 1 tab PO DAILY [facility] Last Admin: 07/22/24 08:57 Dose: 1 tab Nicotine Polacrilex (Nicotine Polacrilex 2 Mg Gum) 4 mg BUCCAL Q2H PRN PRN Reason: Nicotine Cravings Pt Owned ( Dulaglutide [ Trulicity] 1.5mg/0. 5ml) 1 each SUBCUT Sa [facility] Last Admin: 07/19/24 17:08 Dose: 1 each Pt Owned Med ( Lamotrigine Er Tablets 200mg) 1 each PO BEDTIME [facility] Last Admin: 07/21/24 21:38 Dose: 1 each Pt Owned Med ( Galcanezuman-Gnlm [ Emgality] 120mg/Ml) 1 each SUBCUT Q30D [facility] Last Admin: 07/17/24 20:38 Dose: 1 each Patient Own Medication ( Ferrous Gluconate 324 Mg Tablet) 1 each PO DAILY [facility] Last Admin: 07/22/24 08:58 Dose: 1 each Patient Own Medication ( Combivent Respimat 20-100 Mcg/Actuation ) 1 each PO QID PRN PRN Reason: Shortness of Breath Pt Owned Med ( Norethindrone 0.35mg Tabs) 1 each PO BEDTIME [facility] Last Admin: 07/21/24 21:39 Dose: 1 each Pt Owned Med ( Rizatriptan 10mg Tabs) 1 each PO DAILY PRN PRN Reason: Migraine Last Admin: 07/22/24 00:12 Dose: 1 each Omeprazole (Omeprazole 40 Mg Capsule.Dr) 40 mg PO BID@0630,2100 [facility] Last Admin: 07/22/24 05:38 Dose: 40 mg Ondansetron HCl (Ondansetron Odt 8 Mg Tab.Rapdis) 8 mg TRANSLINGU Q12H PRN PRN Reason: Nausea and Vomiting Last Admin: 07/22/24 09:03 Dose: 8 mg Oxcarbazepine (Oxcarbazepine 300 Mg Tablet) 900 mg PO BID [facility] Last Admin: 07/22/24 08:57 Dose: 900 mg Prednisone (Prednisone 20 Mg Tablet) 40 mg PO DAILY PRN PRN Reason: familial Mediterranean fever Spironolactone (Spironolactone 25 Mg Tablet) 50 mg PO BIDWM [facility] Last Admin: 07/22/24 08:57 Dose: 50 mg Sumatriptan Succinate (Sumatriptan Succinate 100 Mg Tablet) 100 mg PO DAILY MRX1 PRN PRN Reason: Migraine Headache Last Admin: 07/20/24 12:52 Dose: 100 mg Topiramate (Topiramate 25 Mg Tablet) 50 mg PO BID [facility] Last Admin: 07/22/24 08:57 Dose: 50 mg Trazodone HCl (Trazodone Hcl 50 Mg Tablet) 50 mg PO BEDTIME MRX1 PRN PRN Reason: Insomnia Venlafaxine HCl (Venlafaxine Hcl 25 Mg Tablet) 112.5 mg PO BEDTIME [facility] Last Admin: 07/21/24 21:37 Dose: 112.5 mg Allergies Allergies Allergy/AdvReac Type Severity Reaction Status Date / Time adhesive [ADHESIVE] Allergy Intermediate BLISTER Verified 07/16/24 16:07 fluticasone [From FLONASE] Allergy Unknown unknown Verified 07/16/24 16:07 meperidine [Demerol] Allergy Unknown vomit Verified 07/16/24 16:07 metoclopramide [From REGLAN] Allergy Unknown DIPLOPIA Verified 07/16/24 16:07 transparent dressing Allergy Unknown rash Verified 07/16/24 16:07 morphine [MORPHINE] AdvReac Severe NAUSEA & Verified 07/16/24 16:07 VOMITING TEGADERM BANDAGE Allergy Intermediate RASH Uncoded 07/16/24 16:07 morphine Allergy Unknown vomit Uncoded 07/16/24 16:07 tape Allergy Unknown rash Uncoded 07/16/24 16:07 From DEMEROL AdvReac Severe NAUSEA & Uncoded 07/16/24 16:07 VOMITING Assessment & Plan Assessment & Plan (1) Suicidal ideation: Status: Acute Code(s): R45.851 - Suicidal ideations (2) PTSD (post-traumatic stress disorder): Status: Acute Code(s): F43.10 - Post-traumatic stress disorder, unspecified (3) Bipolar disorder: Status: Acute Code(s): F31.9 - Bipolar disorder, unspecified Plan Admit, CV, 15 minute checks Re-establish regime ?Family meeting Collateral contact Discharge/Aftercare/Resource planning 07/19/24: Continue current plans and regimen 07/20: Continue current regimen and plans. Sumatriptan p.r.n. ordered 07/22/24: Continue to monitor. No sx of troy Probable DC 07/23. Reason for continued inpatient stay Substantial Risk for: rapid decompensation Time Spent With Patient Time: Total time managing care of this patient today ____ minutes.
[2024-07-22 11:46] LABS: Glucose, Whole Blood 88 mg/dL (60-115)
[2024-07-22] MEDS: Magnesium Oxide 400 MG TABLET PO (12:28)
[2024-07-22 17:43] VITALS: BP 124/83
[2024-07-22 20:00] VITALS: BP 120/65; PULSE 97; TEMP 36.9; O2SAT 99
[2024-07-22] MEDS: Montelukast Sodium 10 MG TABLET PO (20:05)
[2024-07-22] MEDS: Melatonin 3 MG TABLET 9 MG PO (20:05)
[2024-07-22] MEDS: Atorvastatin Calcium 40 MG TABLET PO (20:05)
[2024-07-22] MEDS: hydrOXYzine HCL 10 MG TABLET 40 MG PO (20:06)
[2024-07-22] MEDS: Venlafaxine HCL 25 MG TABLET 75 MG PO (20:06)
[2024-07-22 20:23] LABS: Glucose, Whole Blood 144 mg/dL (60-115)
[2024-07-23] MEDS: hydrOXYzine HCL 25 MG TABLET PO (04:52)
[2024-07-23] MEDS: Omeprazole 40 MG CAPSULE.DR PO (05:44)
[2024-07-23] MEDS: Levothyroxine Sodium 50 MCG TABLET PO (05:44)
[2024-07-23 07:38] LABS: Glucose, Whole Blood 107 mg/dL (60-115)
[2024-07-23 08:02] VITALS: BP 112/76; PULSE 98; TEMP 37.3; O2SAT 96
[2024-07-23 08:29] LABS: Creatinine Clr Calc Pharmacy 76.2; Estimated Glomerular Filt Rate > 60
[2024-07-23] MEDS: Topiramate 25 MG TABLET 50 MG PO (08:46)
[2024-07-23] MEDS: Spironolactone 25 MG TABLET 50 MG PO (08:46)
[2024-07-23] MEDS: OXcarbazepine 300 MG TABLET 900 MG PO (08:46)
[2024-07-23] MEDS: Loratadine 10 MG TABLET PO (08:46)
[2024-07-23] MEDS: Colchicine 0.6 MG TABLET 1.8 MG PO (08:47)
[2024-07-23] MEDS: lamoTRIgine 25 MG TABLET 50 MG PO (08:47)
[2024-07-23] MEDS: Multivitamin TABLET 1 TAB PO (08:47)
[2024-07-23] MEDS: Gabapentin 600 MG TABLET PO (08:47)
[2024-07-23] MEDS: metFORMIN HCl 1,000 MG TABLET 1000 MG PO (08:47)
--- NOTE | 2024-07-23 09:57 | PM.PSYDC ---
DS: Providers Provider Date of Service: 07/23/24 Date of admission: 07/17/24 11:06 Date of discharge: 07/23/24 Primary care physician: Unknown Physician Admitting clinician: Emma Wong Attending physician on admission: Kevin Bravo Attending physician on discharge: Kevin Bravo Discharging clinician: Emma Wong DS: Diagnosis Discharge Diagnosis (1) Suicidal ideation: Status: Resolved (2) PTSD (post-traumatic stress disorder): Status: Acute (3) Bipolar disorder: Status: Acute DS: Medications Discharge Medications Home Medications: Home Medications ?Medication ?Instructions ?Recorded ?Confirmed montelukast 10 mg tablet 1 tab PO QPM 01/31/22 07/16/24 levothyroxine 50 mcg tablet 50 mcg PO DAILY 04/23/23 07/16/24 melatonin 10 mg capsule 10 mg PO BEDTIME PRN Insomnia 04/23/23 07/16/24 ondansetron HCl 4 mg tablet 4 mg PO Q8H PRN Nausea 05/28/23 07/16/24 atorvastatin 40 mg tablet 40 mg PO BEDTIME 12/11/23 07/16/24 cetirizine 10 mg capsule (Zyrtec) 10 mg PO BID 12/11/23 07/16/24 ferrous gluconate 324 mg (38 mg 324 mg PO DAILY 12/11/23 07/16/24 iron) tablet metformin 1,000 mg tablet 1,000 mg PO BID 12/11/23 07/16/24 omeprazole 40 mg capsule,delayed 40 mg PO BID 12/11/23 07/16/24 release colchicine 0.6 mg tablet 1.8 mg PO DAILY 01/02/24 07/16/24 omalizumab 300 mg/2 mL 300 mg subcut QMONTH 03/05/24 07/16/24 subcutaneous syringe (Xolair) docusate sodium 100 mg capsule 100 mg PO BID PRN constipation 04/16/24 07/16/24 galcanezumab-gnlm 120 mg/mL 120 mg subcut QMONTH 04/16/24 07/16/24 subcutaneous pen injector (Emgality Pen) ipratropium 20 mcg-albuterol 100 1 puff inhalation QID PRN SOB 04/16/24 07/16/24 mcg/actuation mist for inhalation (Combivent Respimat) loperamide 2 mg capsule 4 mg PO DIRECTED 04/16/24 07/16/24 magnesium oxide 400 mg PO DAILY@1200 04/16/24 07/16/24 rizatriptan 10 mg tablet 10 mg PO BID PRN Migraine Headache 04/16/24 07/16/24 prednisone 20 mg tablet 20 - 40 mg PO DAILY PRN familial 04/17/24 07/16/24 Mediterranean fever amiloride 5 mg tablet 10 mg PO DAILY 07/02/24 07/16/24 dulaglutide 1.5 mg/0.5 mL 1.5 mg subcut SA 07/02/24 07/16/24 subcutaneous pen injector (Trulicity) insulin lispro 100 unit/mL See Protocol subcut TIDAC PRN 07/16/24 07/16/24 subcutaneous pen Blood Sugar Spikes norethindrone (contraceptive) 0.35 0.35 mg PO DAILY 07/16/24 07/16/24 mg tablet (Incassia) Previous Rx's ?Medication ?Instructions ?Recorded Patient Own Medication 1 ea PO BEDTIME ##0 07/22/24 Patient Own Medication 1 ea PO BEDTIME ##0 07/22/24 Patient Own Medication 1 ea PO DAILY ##0 07/22/24 Patient Own Medication 1 ea PO DAILY PRN ##0 07/22/24 Patient Own Medication 1 ea PO QID PRN ##0 07/22/24 Patient Own Medication 1 ea subcut Q30D ##0 07/22/24 Patient Own Medication 1 ea subcut Sa ##0 07/22/24 gabapentin 600 mg tablet 600 mg PO TID #90 tabs 07/22/24 hydroxyzine HCl 10 mg tablet 40 mg (4 x 10 mg) PO BEDTIME #30 07/22/24 tabs lamotrigine 200 mg tablet,extended 200 mg PO BEDTIME #30 tabs 07/22/24 release 24 hr lamotrigine 25 mg tablet 50 mg (2 x 25 mg) PO DAILY 30 days 07/22/24 #60 tabs multivitamin (Daily-[place] tablet) 1 tab PO DAILY #0 tabs 07/22/24 oxcarbazepine 600 mg tablet 900 mg (1.5 x 600 mg) PO BID #90 07/22/24 tabs topiramate 50 mg tablet 50 mg PO BID #60 tabs 07/22/24 venlafaxine 25 mg tablet 75 mg (3 x 25 mg) PO BEDTIME #90 07/22/24 tabs Mental Status Exam Mental Status Exam Patient Appearance: Appropriate Patient Orientation: Person, Place, Time and Situation Level of Consciousness: Alert Patient Behavior: Appropriate, Talkative, Cooperative and Good Eye Contact Mood Description: Apprehensive Affect Description: Apprehensive Patient Cognition Impaired: No Ability to Follow Directions: Good Speech Pattern: Appropriate and Spontaneous Speech Memory Description: Intact Hallucinations: None Delusions: Not Present Thought Process: Rumination Thought Content: positive for Circumstantial Depressive Symptoms: Thoughts of /Suicide (denies) Judgement: Good Data Data Completed and Pending Completed studies during hospitalization [Text1]: 07/16/24 07/16/24 07/17/24 16:01 16:37 07:36 WBC 7.5 RBC 6.29 H D Hgb 12.5 Hct 42.5 MCV 67.6 L MCH 19.9 L MCHC 29.4 L RDW 21.2 H Plt Count 389 MPV 9.6 Immature Gran % (Auto) 0.3 Neut % (Auto) 78.3 H Lymph % (Auto) 13.8 L [place] % (Auto) 4.6 Eos % (Auto) 1.9 Baso % (Auto) 1.1 Lymph # (Auto) 1.0 L [place] # (Auto) 0.3 Eos # (Auto) 0.1 Baso # (Auto) 0.1 Abs Immat Gran (auto) 0.02 Absolute Neuts (auto) 5.8 Absolute Nucleated RBC 0.000 Nucleated RBC % (auto) 0.0 Sodium 141 Potassium 3.4 Chloride 114 H Carbon Dioxide 17 L Anion Gap 13 BUN 11 Creatinine 0.86 Estim Creat Clear Calc 80.6 Estimated GFR > 60 POC Glucose 139 H Random Glucose 198 H Estimat Average Glucose Hemoglobin A1c % Calcium 9.6 Total Bilirubin 0.3 AST 39 H ALT 39 H Alkaline Phosphatase 147 H Total Protein 8.2 H Albumin 4.6 Triglycerides Cholesterol LDL Cholesterol, Calc HDL Cholesterol Vitamin B12 Folate TSH Urine Color Yellow Urine Appearance Clear Urine pH 6.0 Ur Specific [place] 1.015 Urine Protein 30 (1+) H Urine Glucose (UA) Negative Urine Ketones Negative Urine Blood Small (1+) H Urine Nitrite Negative Ur Leukocyte Esterase Moderate (2+) H Urine RBC 3-5 H Urine WBC 11-20 H Ur Squamous Epith Cells 3-5 Urine Bacteria None Seen Hyaline Casts 3-5 Urine Test NEGATIVE Urine Opiates Screen Not Detected Ur Buprenorphine Scrn Not Detected Ur Oxycodone Screen Not Detected Urine Methadone Screen Not Detected Urine Fentanyl Screen Not Detected Ur Barbiturates Screen Not Detected Ur Phencyclidine Scrn Not Detected Ur Amphetamines Screen Not Detected U Benzodiazepines Scrn Not Detected Urine Cocaine Screen Not Detected U Marijuana (THC) Screen Not Detected Ethyl Alcohol < 10 Influenza Type A (PCR) Influenza Type B (PCR) RSV RNA Qual (PCR) SARS-CoV-2 RNA (RT-PCR) 07/17/24 07/17/24 07/17/24 16:59 19:20 20:57 WBC RBC Hgb Hct MCV MCH MCHC RDW Plt Count MPV Immature Gran % (Auto) Neut % (Auto) Lymph % (Auto) [place] % (Auto) Eos % (Auto) Baso % (Auto) Lymph # (Auto) [place] # (Auto) Eos # (Auto) Baso # (Auto) Abs Immat Gran (auto) Absolute Neuts (auto) Absolute Nucleated RBC Nucleated RBC % (auto) Sodium 141 Potassium 3.8 Chloride 110 H Carbon Dioxide 18 L Anion Gap 17 BUN 18 H Creatinine 1.14 Estim Creat Clear Calc 60.2 Estimated GFR 51 POC Glucose 168 H 192 H Random Glucose 132 H Estimat Average Glucose Hemoglobin A1c % Calcium 9.2 Total Bilirubin 0.3 AST 34 H ALT 41 H Alkaline Phosphatase 135 H Total Protein 8.0 Albumin 4.6 Triglycerides Cholesterol LDL Cholesterol, Calc HDL Cholesterol Vitamin B12 Folate TSH Urine Color Urine Appearance Urine pH Ur Specific [place] Urine Protein Urine Glucose (UA) Urine Ketones Urine Blood Urine Nitrite Ur Leukocyte Esterase Urine RBC Urine WBC Ur Squamous Epith Cells Urine Bacteria Hyaline Casts Urine Test Urine Opiates Screen Ur Buprenorphine Scrn Ur Oxycodone Screen Urine Methadone Screen Urine Fentanyl Screen Ur Barbiturates Screen Ur Phencyclidine Scrn Ur Amphetamines Screen U Benzodiazepines Scrn Urine Cocaine Screen U Marijuana (THC) Screen Ethyl Alcohol Influenza Type A (PCR) Influenza Type B (PCR) RSV RNA Qual (PCR) SARS-CoV-2 RNA (RT-PCR) 07/18/24 07/18/24 07/18/24 07:38 08:21 13:03 WBC RBC Hgb Hct MCV MCH MCHC RDW Plt Count MPV Immature Gran % (Auto) Neut % (Auto) Lymph % (Auto) [place] % (Auto) Eos % (Auto) Baso % (Auto) Lymph # (Auto) [place] # (Auto) Eos # (Auto) Baso # (Auto) Abs Immat Gran (auto) Absolute Neuts (auto) Absolute Nucleated RBC Nucleated RBC % (auto) Sodium Potassium Chloride Carbon Dioxide Anion Gap BUN Creatinine Estim Creat Clear Calc Estimated GFR POC Glucose 181 H 105 Random Glucose Estimat Average Glucose 163 Hemoglobin A1c % 7.3 H Calcium Total Bilirubin AST ALT Alkaline Phosphatase Total Protein Albumin Triglycerides 217 H Cholesterol 215 H LDL Cholesterol, Calc 135 H HDL Cholesterol 37 L Vitamin B12 Folate TSH 2.10 Urine Color Urine Appearance Urine pH Ur Specific [place] Urine Protein Urine Glucose (UA) Urine Ketones Urine Blood Urine Nitrite Ur Leukocyte Esterase Urine RBC Urine WBC Ur Squamous Epith Cells Urine Bacteria Hyaline Casts Urine Test Urine Opiates Screen Ur Buprenorphine Scrn Ur Oxycodone Screen Urine Methadone Screen Urine Fentanyl Screen Ur Barbiturates Screen Ur Phencyclidine Scrn Ur Amphetamines Screen U Benzodiazepines Scrn Urine Cocaine Screen U Marijuana (THC) Screen Ethyl Alcohol Influenza Type A (PCR) Influenza Type B (PCR) RSV RNA Qual (PCR) SARS-CoV-2 RNA (RT-PCR) 07/18/24 07/18/24 07/19/24 16:59 21:15 08:09 WBC RBC Hgb Hct MCV MCH MCHC RDW Plt Count MPV Immature Gran % (Auto) Neut % (Auto) Lymph % (Auto) [place] % (Auto) Eos % (Auto) Baso % (Auto) Lymph # (Auto) [place] # (Auto) Eos # (Auto) Baso # (Auto) Abs Immat Gran (auto) Absolute Neuts (auto) Absolute Nucleated RBC Nucleated RBC % (auto) Sodium Potassium Chloride Carbon Dioxide Anion Gap BUN Creatinine Estim Creat Clear Calc Estimated GFR POC Glucose 119 H 137 H 235 H Random Glucose Estimat Average Glucose Hemoglobin A1c % Calcium Total Bilirubin AST ALT Alkaline Phosphatase Total Protein Albumin Triglycerides Cholesterol LDL Cholesterol, Calc HDL Cholesterol Vitamin B12 Folate TSH Urine Color Urine Appearance Urine pH Ur Specific [place] Urine Protein Urine Glucose (UA) Urine Ketones Urine Blood Urine Nitrite Ur Leukocyte Esterase Urine RBC Urine WBC Ur Squamous Epith Cells Urine Bacteria Hyaline Casts Urine Test Urine Opiates Screen Ur Buprenorphine Scrn Ur Oxycodone Screen Urine Methadone Screen Urine Fentanyl Screen Ur Barbiturates Screen Ur Phencyclidine Scrn Ur Amphetamines Screen U Benzodiazepines Scrn Urine Cocaine Screen U Marijuana (THC) Screen Ethyl Alcohol Influenza Type A (PCR) Influenza Type B (PCR) RSV RNA Qual (PCR) SARS-CoV-2 RNA (RT-PCR) 07/19/24 07/19/24 07/19/24 09:15 12:11 17:34 WBC RBC Hgb Hct MCV MCH MCHC RDW Plt Count MPV Immature Gran % (Auto) Neut % (Auto) Lymph % (Auto) [place] % (Auto) Eos % (Auto) Baso % (Auto) Lymph # (Auto) [place] # (Auto) Eos # (Auto) Baso # (Auto) Abs Immat Gran (auto) Absolute Neuts (auto) Absolute Nucleated RBC Nucleated RBC % (auto) Sodium Potassium Chloride Carbon Dioxide Anion Gap BUN Creatinine Estim Creat Clear Calc Estimated GFR POC Glucose 119 H 122 H Random Glucose Estimat Average Glucose Hemoglobin A1c % Calcium Total Bilirubin AST ALT Alkaline Phosphatase Total Protein Albumin Triglycerides Cholesterol LDL Cholesterol, Calc HDL Cholesterol Vitamin B12 525 Folate 8.2 TSH Urine Color Urine Appearance Urine pH Ur Specific [place] Urine Protein Urine Glucose (UA) Urine Ketones Urine Blood Urine Nitrite Ur Leukocyte Esterase Urine RBC Urine WBC Ur Squamous Epith Cells Urine Bacteria Hyaline Casts Urine Test Urine Opiates Screen Ur Buprenorphine Scrn Ur Oxycodone Screen Urine Methadone Screen Urine Fentanyl Screen Ur Barbiturates Screen Ur Phencyclidine Scrn Ur Amphetamines Screen U Benzodiazepines Scrn Urine Cocaine Screen U Marijuana (THC) Screen Ethyl Alcohol Influenza Type A (PCR) Influenza Type B (PCR) RSV RNA Qual (PCR) SARS-CoV-2 RNA (RT-PCR) 07/19/24 07/20/24 07/20/24 20:23 07:57 12:14 WBC RBC Hgb Hct MCV MCH MCHC RDW Plt Count MPV Immature Gran % (Auto) Neut % (Auto) Lymph % (Auto) [place] % (Auto) Eos % (Auto) Baso % (Auto) Lymph # (Auto) [place] # (Auto) Eos # (Auto) Baso # (Auto) Abs Immat Gran (auto) Absolute Neuts (auto) Absolute Nucleated RBC Nucleated RBC % (auto) Sodium Potassium Chloride Carbon Dioxide Anion Gap BUN Creatinine Estim Creat Clear Calc Estimated GFR POC Glucose 130 H 116 H 103 Random Glucose Estimat Average Glucose Hemoglobin A1c % Calcium Total Bilirubin AST ALT Alkaline Phosphatase Total Protein Albumin Triglycerides Cholesterol LDL Cholesterol, Calc HDL Cholesterol Vitamin B12 Folate TSH Urine Color Urine Appearance Urine pH Ur Specific [place] Urine Protein Urine Glucose (UA) Urine Ketones Urine Blood Urine Nitrite Ur Leukocyte Esterase Urine RBC Urine WBC Ur Squamous Epith Cells Urine Bacteria Hyaline Casts Urine Test Urine Opiates Screen Ur Buprenorphine Scrn Ur Oxycodone Screen Urine Methadone Screen Urine Fentanyl Screen Ur Barbiturates Screen Ur Phencyclidine Scrn Ur Amphetamines Screen U Benzodiazepines Scrn Urine Cocaine Screen U Marijuana (THC) Screen Ethyl Alcohol Influenza Type A (PCR) Influenza Type B (PCR) RSV RNA Qual (PCR) SARS-CoV-2 RNA (RT-PCR) 07/20/24 07/20/24 07/20/24 13:10 17:06 21:56 WBC RBC Hgb Hct MCV MCH MCHC RDW Plt Count MPV Immature Gran % (Auto) Neut % (Auto) Lymph % (Auto) [place] % (Auto) Eos % (Auto) Baso % (Auto) Lymph # (Auto) [place] # (Auto) Eos # (Auto) Baso # (Auto) Abs Immat Gran (auto) Absolute Neuts (auto) Absolute Nucleated RBC Nucleated RBC % (auto) Sodium Potassium Chloride Carbon Dioxide Anion Gap BUN Creatinine Estim Creat Clear Calc Estimated GFR POC Glucose 92 110 Random Glucose Estimat Average Glucose Hemoglobin A1c % Calcium Total Bilirubin AST ALT Alkaline Phosphatase Total Protein Albumin Triglycerides Cholesterol LDL Cholesterol, Calc HDL Cholesterol Vitamin B12 Folate TSH Urine Color Urine Appearance Urine pH Ur Specific [place] Urine Protein Urine Glucose (UA) Urine Ketones Urine Blood Urine Nitrite Ur Leukocyte Esterase Urine RBC Urine WBC Ur Squamous Epith Cells Urine Bacteria Hyaline Casts Urine Test Urine Opiates Screen Ur Buprenorphine Scrn Ur Oxycodone Screen Urine Methadone Screen Urine Fentanyl Screen Ur Barbiturates Screen Ur Phencyclidine Scrn Ur Amphetamines Screen U Benzodiazepines Scrn Urine Cocaine Screen U Marijuana (THC) Screen Ethyl Alcohol Influenza Type A (PCR) NEGATIVE Influenza Type B (PCR) NEGATIVE RSV RNA Qual (PCR) NEGATIVE SARS-CoV-2 RNA (RT-PCR) NEGATIVE 07/21/24 07/21/24 07/21/24 07:57 11:50 17:32 WBC RBC Hgb Hct MCV MCH MCHC RDW Plt Count MPV Immature Gran % (Auto) Neut % (Auto) Lymph % (Auto) [place] % (Auto) Eos % (Auto) Baso % (Auto) Lymph # (Auto) [place] # (Auto) Eos # (Auto) Baso # (Auto) Abs Immat Gran (auto) Absolute Neuts (auto) Absolute Nucleated RBC Nucleated RBC % (auto) Sodium Potassium Chloride Carbon Dioxide Anion Gap BUN Creatinine Estim Creat Clear Calc Estimated GFR POC Glucose 104 93 133 H Random Glucose Estimat Average Glucose Hemoglobin A1c % Calcium Total Bilirubin AST ALT Alkaline Phosphatase Total Protein Albumin Triglycerides Cholesterol LDL Cholesterol, Calc HDL Cholesterol Vitamin B12 Folate TSH Urine Color Urine Appearance Urine pH Ur Specific [place] Urine Protein Urine Glucose (UA) Urine Ketones Urine Blood Urine Nitrite Ur Leukocyte Esterase Urine RBC Urine WBC Ur Squamous Epith Cells Urine Bacteria Hyaline Casts Urine Test Urine Opiates Screen Ur Buprenorphine Scrn Ur Oxycodone Screen Urine Methadone Screen Urine Fentanyl Screen Ur Barbiturates Screen Ur Phencyclidine Scrn Ur Amphetamines Screen U Benzodiazepines Scrn Urine Cocaine Screen U Marijuana (THC) Screen Ethyl Alcohol Influenza Type A (PCR) Influenza Type B (PCR) RSV RNA Qual (PCR) SARS-CoV-2 RNA (RT-PCR) 07/21/24 07/22/24 07/22/24 20:40 08:30 11:37 WBC RBC Hgb Hct MCV MCH MCHC RDW Plt Count MPV Immature Gran % (Auto) Neut % (Auto) Lymph % (Auto) [place] % (Auto) Eos % (Auto) Baso % (Auto) Lymph # (Auto) [place] # (Auto) Eos # (Auto) Baso # (Auto) Abs Immat Gran (auto) Absolute Neuts (auto) Absolute Nucleated RBC Nucleated RBC % (auto) Sodium Potassium Chloride Carbon Dioxide Anion Gap BUN Creatinine Estim Creat Clear Calc Estimated GFR POC Glucose 152 H 161 H 88 Random Glucose Estimat Average Glucose Hemoglobin A1c % Calcium Total Bilirubin AST ALT Alkaline Phosphatase Total Protein Albumin Triglycerides Cholesterol LDL Cholesterol, Calc HDL Cholesterol Vitamin B12 Folate TSH Urine Color Urine Appearance Urine pH Ur Specific [place] Urine Protein Urine Glucose (UA) Urine Ketones Urine Blood Urine Nitrite Ur Leukocyte Esterase Urine RBC Urine WBC Ur Squamous Epith Cells Urine Bacteria Hyaline Casts Urine Test Urine Opiates Screen Ur Buprenorphine Scrn Ur Oxycodone Screen Urine Methadone Screen Urine Fentanyl Screen Ur Barbiturates Screen Ur Phencyclidine Scrn Ur Amphetamines Screen U Benzodiazepines Scrn Urine Cocaine Screen U Marijuana (THC) Screen Ethyl Alcohol Influenza Type A (PCR) Influenza Type B (PCR) RSV RNA Qual (PCR) SARS-CoV-2 RNA (RT-PCR) 07/22/24 07/23/24 07/23/24 20:19 07:33 07:44 WBC RBC Hgb Hct MCV MCH MCHC RDW Plt Count MPV Immature Gran % (Auto) Neut % (Auto) Lymph % (Auto) [place] % (Auto) Eos % (Auto) Baso % (Auto) Lymph # (Auto) [place] # (Auto) Eos # (Auto) Baso # (Auto) Abs Immat Gran (auto) Absolute Neuts (auto) Absolute Nucleated RBC Nucleated RBC % (auto) Sodium Potassium Chloride Carbon Dioxide Anion Gap BUN Creatinine 0.90 Estim Creat Clear Calc 76.2 Estimated GFR > 60 POC Glucose 144 H 107 Random Glucose Estimat Average Glucose Hemoglobin A1c % Calcium Total Bilirubin AST ALT Alkaline Phosphatase Total Protein Albumin Triglycerides Cholesterol LDL Cholesterol, Calc HDL Cholesterol Vitamin B12 Folate TSH Urine Color Urine Appearance Urine pH Ur Specific [place] Urine Protein Urine Glucose (UA) Urine Ketones Urine Blood Urine Nitrite Ur Leukocyte Esterase Urine RBC Urine WBC Ur Squamous Epith Cells Urine Bacteria Hyaline Casts Urine Test Urine Opiates Screen Ur Buprenorphine Scrn Ur Oxycodone Screen Urine Methadone Screen Urine Fentanyl Screen Ur Barbiturates Screen Ur Phencyclidine Scrn Ur Amphetamines Screen U Benzodiazepines Scrn Urine Cocaine Screen U Marijuana (THC) Screen Ethyl Alcohol Influenza Type A (PCR) Influenza Type B (PCR) RSV RNA Qual (PCR) SARS-CoV-2 RNA (RT-PCR) Imaging Diagnostic Imaging Impressions Sinuses X-Ray 07/18/24 17:20 IMPRESSION: Unremarkable examination of the paranasal sinuses. Electronically signed by: Griffin Patel MD 07/21/2024 08:14 AM EDT DS: Summary Hospital Course Hospital Course: Admission to adult psychiatry for exacerbation of bipolar disorder with SI. 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 Medications were evaluated and adjusted. Pt participated in the milieu to strengthen coping skills and obtain support. Pt had discussions with family and outside supports. During the admission she made the decision to separate from her , ask him to leave the home and begin to separate their finances so she can stabilize her situation and continue to care for her son. We did meet with pt and her son. He is aware and accepting of this current situation and believes this is the best plan. Pt will return to her out pt team and will return home with assistance from her parents. Status at Discharge Functional status at discharge: independent ambulation Overall status at discharge: patient is progressing back to baseline Time Spent with Patient Time attestation: Total time managing care of this patient today ____ minutes. Time spent: Less than 30 minutes Discharge Plan Discharge Anticipated Discharge Date/Time: 07/23/24 12:00 Patient Disposition: Home, Self-Care Discharge Diagnosis: PTSD Bipolar Disorder Referrals: Elizabeth Hummel: [facility] [employer] [Other] - 07/30/24 9:00 am (*Scheduled appointment with outpatient provider ) Physician,Unknown J [Primary Care Provider] - 1 Week Discharge Medications: New gabapentin 600 mg Tablet 600 mg PO TID Qty: 90 0RF multivitamin [Daily-[place]] Tablet 1 tab PO DAILY Qty: 0 0RF venlafaxine 25 mg Tablet 75 mg PO BEDTIME Qty: 90 0RF Patient Own Medication 1 ea subcut Q30D Qty: 0 0RF Patient Own Medication 1 ea PO QID PRNQty: 0 0RF Patient Own Medication 1 ea PO BEDTIME Qty: 0 0RF Patient Own Medication 1 ea PO DAILY PRNQty: 0 0RF Patient Own Medication 1 ea subcut Sa Qty: 0 0RF Patient Own Medication 1 ea PO BEDTIME Qty: 0 0RF Patient Own Medication 1 ea PO DAILY Qty: 0 0RF Continued montelukast 10 mg tablet 1 tab PO QPM omeprazole 40 mg capsule,delayed release(DR/EC) 40 mg PO BID colchicine 0.6 mg tablet 1.8 mg PO DAILY norethindrone (contraceptive) [Incassia] 0.35 mg Tablet 0.35 mg PO DAILY insulin lispro 100 unit/mL insulin pen See Protocol SUBCUT TIDAC PRN (Reason: Blood Sugar Spikes) Protocol: Insulin Correction Scale Less than or equal to 110 ---- Give (units): 0 111 to 150 Give (units): 0 151 to 200 Give (units): 0 201 to 250 Give (units): 2 251 to 300 Give (units): 4 301 to 350 Give (units): 6 Greater than 350 Give (units): 8 Call MD if Blood Glucose > : 350 Rx Instructions: Patient takes while on Prednisone regimens for blood sugar spikes. lamotrigine 25 mg Tablet 50 mg PO DAILY 30 Days Qty: 60 0RF oxcarbazepine 600 mg tablet 900 mg PO BID Qty: 90 0RF hydroxyzine HCl 10 mg tablet 40 mg PO BEDTIME Qty: 30 0RF topiramate 50 mg tablet 50 mg PO BID Qty: 60 0RF lamotrigine 200 mg tablet extended release 24hr 200 mg PO BEDTIME Qty: 30 0RF loperamide 2 mg capsule 4 mg PO DIRECTED rizatriptan 10 mg Tablet 10 mg PO BID PRN (Reason: Migraine Headache) Rx Instructions: do not exceed 3 doses per 24 hrs docusate sodium 100 mg capsule 100 mg PO BID PRN (Reason: constipation) Combivent Respimat 20-100 mcg/actuation mist 1 puff INHALATION QID PRN (Reason: SOB) magnesium oxide 400 mg magnesium Tablet 400 mg PO DAILY@1200 Rx Instructions: Take once daily at noon starting on 04/17/24 Emgality Pen 120 mg/mL pen injector 120 mg subcut QMONTH prednisone 20 mg tablet 20 - 40 mg PO DAILY PRN (Reason: familial Mediterranean fever) melatonin 10 mg capsule 10 mg PO BEDTIME PRN (Reason: Insomnia) levothyroxine 50 mcg tablet 50 mcg PO DAILY Zyrtec 10 mg capsule 10 mg PO BID ondansetron HCl 4 mg tablet 4 mg PO Q8H PRN (Reason: Nausea) atorvastatin 40 mg tablet 40 mg PO BEDTIME ferrous gluconate 324 mg (38 mg iron) tablet 324 mg PO DAILY metformin 1,000 mg tablet 1,000 mg PO BID amiloride 5 mg tablet 10 mg PO DAILY Trulicity 1.5 mg/0.5 mL pen injector 1.5 mg subcut SA Xolair 300 mg/2 mL syringe 300 mg subcut QMONTH Discontinued venlafaxine 50 mg tablet 75 mg PO BEDTIME 30 Days Qty: 45 0RF hydroxyzine HCl 25 mg tablet See Rx Instructions .ROUTE .COMPLEX PRN (Reason: anxiety or insomnia) 30 Days Qty: 120 0RF Rx Instructions: take 1-2 tabs up to 3 times a day as needed for anxiety and insomnia gabapentin 600 mg tablet 600 mg PO 2XD Discharge Orders: Discharge Order (Routine); Ordered 07/23/24 Ordered By: Emma Wong Diet: Advance to usual diet Activity on Discharge: As tolerated Stand Alone Forms: Patient Portal Discharge page, Community Support Print Language: French Care Plan Goals: Mood and Behavioral Stabilization Health Concerns: Mood and Behavioral Stabilization Plan of Treatment: Attend scheduled appointments Take medications as directed Call/Return as needed Assessment: Pt denies SI,HI,AH,VH There are no sx of acute psychosis or troy She is approving of her plan of care and states she is ready to return home Discharge Date/Time: 07/23/24 11:33
[2024-07-23] MEDS: Acetaminophen 325 MG TABLET 650 MG PO (10:38)
== END 2024-07-23 11:33 | disposition home or self-care (01) | DRG 885 ==
LOC: HO.ED 17:41 → HO.PM5 07-17 11:23
PROVIDERS: Emergency Medicine; Physician Assistant; Psychiatry & Neurology Psychiatry; Admitting Provider Psychiatry & Neurology Psychiatry; Emergency Provider Emergency Medicine; Visit Provider Clinical Nurse Specialist Psychiatric/Mental Health, Adult
DX: F31.9 Bipolar disorder, unspecified (principal); R45.851 Suicidal ideations; F43.10 Post-traumatic stress disorder, unspecified; Z20.822 Contact with and (suspected) exposure to COVID-19; Z79.4 Long term (current) use of insulin; Z79.84 Long term (current) use of oral hypoglycemic drugs; Z79.899 Other long term (current) drug therapy
CPT/HCPCS: 0241U; 36415; 70220; 70450; 80053; 80061; 80307; 81001; 81025; 82565; 82607; 82746; 82947; 83036; 84443; 85025; 93005; 99285

== ENCOUNTER → 2024-07-16 17:51 | Outpatient (BNV) | payer MEDICARE, MEDICAID, SELFPAY | PROVIDERS: Emergency Provider Emergency Medicine; Visit Provider Internal Medicine Cardiovascular Disease | DX: R94.31 Abnormal electrocardiogram [ECG] [EKG] (principal); R07.9 Chest pain, unspecified | CPT/HCPCS: 93010 ==

== ENCOUNTER 2024-07-17 11:06 | Outpatient (BNV) | payer BC, MEDICARE, MEDICAID, SELFPAY | END 2024-07-18 17:23 | PROVIDERS: Admitting Provider Psychiatry & Neurology Psychiatry; Emergency Provider Emergency Medicine; Visit Provider Radiology Diagnostic Radiology | DX: R51.9 Headache, unspecified (principal) | CPT/HCPCS: 70220 ==

== ENCOUNTER → 2024-07-17 11:06 | Outpatient (BNV) | payer BC, MEDICARE, MEDICAID, SELFPAY | PROVIDERS: Admitting Provider Psychiatry & Neurology Psychiatry; Emergency Provider Emergency Medicine; Visit Provider Clinical Nurse Specialist Psychiatric/Mental Health, Adult | DX: R45.851 Suicidal ideations (principal); F43.10 Post-traumatic stress disorder, unspecified; F31.9 Bipolar disorder, unspecified | CPT/HCPCS: 90792 ==

== ENCOUNTER 2024-08-27 11:20 | Outpatient (AMB) | payer BC, MEDICARE, MEDICAID, SELFPAY ==
[2024-08-27 11:21] VITALS: BP 112/72; PULSE 93; O2SAT 98; BMI 29.4
--- NOTE | 2024-08-27 11:21 | HO.NEPHOV_ITS ---
Vital Signs 08/27/24 11:21 Height 5 ft 4 in Weight 171 lb 8 oz BMI 29.4 BP 112/72 Blood Pressure Location Lt brachial Position Sitting Pulse 93 Pulse Source Pulse Oximeter Pulse Oximetry (%) 98 Oxygen Delivery Method Room Air Intake Visit Reasons: Medication Concerns- [facility] 08/02/24/ COnf Allergies adhesive [ADHESIVE] Allergy (Intermediate, Verified 08/27/24 11:23) BLISTER fluticasone [From FLONASE] Allergy (Unknown, Verified 08/27/24 11:23) unknown meperidine [Demerol] Allergy (Unknown, Verified 08/27/24 11:23) vomit metoclopramide [From REGLAN] Allergy (Unknown, Verified 08/27/24 11:23) DIPLOPIA transparent dressing Allergy (Unknown, Verified 08/27/24 11:23) rash morphine [MORPHINE] Adverse Reaction (Severe, Verified 08/27/24 11:23) NAUSEA & VOMITING TEGADERM BANDAGE Allergy (Intermediate, Uncoded 08/27/24 11:23) RASH morphine Allergy (Unknown, Uncoded 08/27/24 11:23) vomit tape Allergy (Unknown, Uncoded 08/27/24 11:23) rash From DEMEROL Adverse Reaction (Severe, Uncoded 08/27/24 11:23) NAUSEA & VOMITING Medication List - Last Reconciled 08/27/24 by Neto Cunningham MD amiloride 10 mg PO DAILY atorvastatin 40 mg PO BEDTIME cetirizine (Zyrtec) 10 mg PO BID colchicine 1.8 mg PO DAILY docusate sodium 100 mg PO BID PRN dulaglutide (Trulicity) 1.5 mg subcut SA ferrous gluconate 324 mg PO DAILY gabapentin 600 mg PO TID galcanezumab-gnlm (Emgality Pen) 120 mg subcut QMONTH hydroxyzine HCl 40 mg (4 x 10 mg) PO BEDTIME insulin lispro See Protocol sliding scale doses subcut TIDAC PRN ipratropium-albuterol 20-100 mcg/actuation (Combivent Respimat) 1 puff inhalation QID PRN lamotrigine 50 mg (2 x 25 mg) PO DAILY 30 days lamotrigine ER 200 mg PO BEDTIME levothyroxine 50 mcg PO DAILY loperamide 4 mg PO DIRECTED magnesium oxide 400 mg PO DAILY@1200 melatonin 10 mg PO BEDTIME PRN metformin 1,000 mg PO BID montelukast 1 tab PO QPM multivitamin (Daily-[place] tablet) 1 tab PO DAILY norethindrone (contraceptive) (Incassia) 0.35 mg PO DAILY omalizumab (Xolair) 300 mg subcut QMONTH omeprazole 40 mg PO BID ondansetron HCl 4 mg PO Q8H PRN oxcarbazepine 900 mg (1.5 x 600 mg) PO BID [Patient Own Medication 1 ea subcut Q30D] [Patient Own Medication 1 ea PO QID PRN] [Patient Own Medication 1 ea PO BEDTIME] [Patient Own Medication 1 ea PO DAILY PRN] [Patient Own Medication 1 ea subcut Sa] [Patient Own Medication 1 ea PO BEDTIME] [Patient Own Medication 1 ea PO DAILY] prednisone 20 - 40 mg PO DAILY PRN rizatriptan 10 mg PO BID PRN topiramate 50 mg PO BID venlafaxine 75 mg (3 x 25 mg) PO BEDTIME HPI Comments Details: Meredith is a pleasant 48-year-old woman with a history of immunodeficiency and currently disease IV immunoglobulins. She has a history of bipolar disorder and has been on lithium for several years. 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 Serum creatinine has been stable around 1.0. [place] was discontinued. She is currently on Vraylar. She has developed symptoms of TD. The plan is to switch her back to lithium as per her psychia trist. She underwent a partial thyroidectomy on 01/06/2022. History of papillary thyroid Ca She disease IV hemoglobin every 3 weeks for immunodeficiency. History of medullary calcinosis of the kidneys. She has been on topiramate for several years. 05/28/23 ; Recently admitted with Campylobacter Jejuni ; Had diarrhea ; Ca and K was low 24 hr urine showed a volume of 4600 ml !! 07/23/23; Amiloride was increased in May; UO has decreased ;She has cut back on soda ;Now she is back on [place] since May 2023 08/20/23 ; Recently she had 2 sinus infections treated with antibiotics without much improvement. She has an appointment with ENT in end of September. She has had some nausea and vomiting. P.o. intake has been suboptimal. Creatinine was 1.06 and BUN bumped up to 27 and she he is here for further evaluation. Baseline BUN is around 18 mg/dL. 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 Blood sugar spiked and ended up in ER. Cr up to 1.3 01/02/24; Recurrent ER visits for vomiting ;REceived IVF fluids and discharged 03/05/24;Was in ER few days ago;HAd diarrhea ;REceived IVF;Gets IVF at infusion center every 1-2 weeks 05/19/24;Feels dizzy 07/02/24 Fell while dealing with dog and sustained concussion Now under therapy- Speech/Lang/Cognition and ocular and vestibular PT Tries to keep up with fluid intake Cr is around 1.08 Not on [place] since Apr 2024 08/27/24 Says she feels better after she filed for divorce! Still has diarrhea and gets dehydrated [facility] Medical History Bipolar 1 disorder PTSD (post-traumatic stress disorder) Acute anxiety Depression History of recurrent pneumonia History of Pseudomonas pneumonia Bipolar disorder Menstrual migraine Allergic asthma Dyslipidemia Type 2 diabetes mellitus FMF (familial Mediterranean fever) Primary immunodeficiency disorder Surgical History History of endoscopy (~11/2023) History of ankle surgery History of umbilical hernia repair History of dilation and curettage History of arthroscopy History of oral surgery History of delivery Social History Household Members: Spouse Household Members Other:: , Son Housing: House Do you presently have visiting nurse or other home services: No Alcohol intake: never Patient Tobacco Use Status: Never used Tobacco e-Cigarette/Vaping Use: Never Used Second Hand Smoke Exposure: No service: No Sexual orientation: Straight/Heterosexual Physical Exam Vital Signs: BMI result Body Mass Index 29.4 Comfortable Neck supple no JVD. Lungs entry equal no rales. Heart S1-S2 heard no gallop or rub. Abdomen soft nontender. Neuro alert awake oriented. No asterixis. Extremities no edema. Results Reviewed Nephrology Results: Hgb 12.5 g/dl (12.0-16.0) 07/16/24 WBC 7.5 X10*3/uL (4.8-10.8) 07/16/24 Plt Count 389 X10*3/uL (160-400) 07/16/24 Sodium 141 mmol/L (135-145) 07/17/24 Potassium 3.8 mmol/L (3.3-5.1) 07/17/24 Chloride 110 mmol/L (96-108) H 07/17/24 Carbon Dioxide 18 mmol/L (22-29) L 07/17/24 BUN 18 mg/dL (9-16) H 07/17/24 Creatinine 0.90 mg/dL (0.5-1.4) 07/23/24 Calcium 9.2 mg/dL (8.4-10.2) 07/17/24 Urine Protein 30 (1+) mg/dL (Neg-Trace) H 07/16/24 Assessment & Plan Assessment & Plan (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 The polyuria is under control while she is on amiloride. Renal function has been stable as well. She is clearly at risk for ongoing in renal injury from lithium however it seems like this might be the only option to treat her bipolar illness. 24 hour urine collection showed a volume of 4600 and urine osmolarity of 220 risks and benefits of going back on lithium was explained and she is back on [place] since May 2023 Watch renal function and UO while on [place] She should continue with the low-sodium diet as well. Keep AMiloride at 10 mg QD Stay on low salt diet Given the h/o renal stones , would not add Calcium tabs Shall follow levels The bump in BUN is most likely due to poor p.o. intake. Hemoglobin has increased from 13.3 up to 14.1 most likely due to hemoconcentration I have encouraged her to increase fluid intake. Serum creatinine stable at 1.06. Clinically volume status appears stable. She will require a 24 urine collection to quantify urine output and based on this we can adjust the p.o. fluid intake. 12/11/23 SACHI due to hypoperfusion in a setting of hyperglycemia REcheck labs today ; Increase PO fluids ; Optimize blood sugar and follow up with PCP 01/02/24 Renal function is stable ; Keep on weekly IV fluids ; HAs polyuria - she is on [place] 450 mg BID Currently on Amiloride;Stay on low Sodium diet ;IF polyuria presists, may need to lower or stop [place] 05/19/24; Advised to go to ER due to dizziness; Needs IVF Q weekly ;next dose on 06/04/24 07/02/24 From a renal stand point, she is doing better Creatinine is stable Not on [place] any more Encouraged to stay on low salt diet and keep up with PO hydration Keep Amiloride No changes were made today 08/27/24 Cr is down to 0.86 Recheck 24 hr urine for volume and consider lowering Amiloride Orders: Orders Sodium, 24Hr Urine Group Today N25.1 - Nephrogenic diabetes insipidus Coding Level of Care Code Est Pt Level 4 (30427) Diagnoses Nephrogenic diabetes insipidus N25.1 CKD (chronic kidney disease) N18.9
--- OUTSIDE RECORDS SUMMARY | 2024-08-27 13:45 | XMS_ITS | Referral Summary ---
Author Organization [facility] Address [address] [place] [address] Care Team Providers Care Driller Operator Name Role Phone Bernie Aquino Primary Care Provider [phone] Encounters Date Type Department Care Team Description 08/07/2024 Documentation [facility] Building [address] [place] [id number] Marcell Shen CPhT Prior Authorization ([place] for Emgality 120mg/ml pen Injector, #06/10, through [employer] [PA# [id number]]. Effective 07/12/24 - 08/06/25. May fill with [facility], $4.80 copay/) 08/07/2024 Documentation [facility] Building [address] [place] [address] Marcell Shen CPhT Prior Authorization ([place] Nurtec ODT 75mg, #, through [employer] [PA# [id number]]. Effective 07/12/24 - 08/06/25. May fill with [facility], $4.80 copay/) 08/06/2024 Telephone [facility] [address] [place] [phone] Rajesh Black NP 08/05/2024 1:00 PM EDT Office Visit [facility] [address] [place] [id number] Disc Sander: Rajesh Echevarria NP Intractable migraine with aura without status migrainosus (Primary Dx); Chronic migraine without aura without status migrainosus, not intractable 07/29/2024 Orders Only [facility] [address] [place] [id number] Disc Sander: Caitlyn Sanchez MD 07/28/2024 Telephone [facility] [address] [place] [phone] Disc Sander: Sari Workman Telephone Intake, Staff PAC Patient Request Call Back; PAC Appt Request - Established 06/11/2024 Refill [facility] [address] [phone] Disc Sander: Gwen Pitts MA 06/09/2024 Refill [facility] [address] [place] [phone] Disc Sander: Ginger Ness 06/09/2024 Telephone [facility] [address] [place] [phone] Disc Sander: Stefany Ramirez LPN 06/04/2024 Telephone [facility] [address] [place] [phone] Disc Sander: Stefany Ramirez LPN from Last 3 Months Allergies Active Allergy Reactions Criticality Noted Date Comments Adhesive Tape-Silicones Rash Amoxicillin-Pot Clavulanate Other (see comments) 07/01/2021 makes sicker Azithromycin Other (see comments) 07/01/2021 Diarrhea Cat Dander Other (see comments) 07/01/2021 Fluorouracil-Adhesive Bandage Other (see comments) 07/01/2021 Meperidine Nausea,Vomiting Metoclopramide Hcl Dizziness Morphine Nausea,Vomiting Medications omalizumab (XOLAIR) 150 mg injection Inject 150 mg under the skin every 28 days. 06/27/19 13 Active lamoTRIgine 200 mg tablet extended release 24hr Take 600 mg by mouth nightly. Active EPINEPHrine (EPIPEN) 0.3 mg/0.3 mL injection syringe Inject 0.3 mg into the outer thigh muscle as directed as needed for anaphylaxis. 01/15/20 13 Active ipratropium-albut Bo (COMBIVENT RESPIMAT) 20-100 mcg/actuation inhaler Combivent Respimat 20-100 MCG/ACT Inhalation Aerosol Solution INHALE 1 PUFF 4 TIMES DAILY AND PRN(MAXIMUM OF 6 PUFFS IN 24 HOURS) Refills: 0 Active Active colchicine (COLCRYS) 0.6 mg tablet Take 0.6 mg by mouth 2 times a day. 06/19/19 13 Active montelukast (SINGULAIR) 10 mg tablet Singulair 10 MG Oral Tablet 1 TABLET DAILY. Refills: 0 Active Active cetirizine (ZyrTEC) 10 mg tablet Take 10 mg by mouth daily. Active cyclobenzaprine (FLEXERIL) 10 mg tablet TAKE ONE TABLET BY MOUTH AT BEDTIME NEEDED FOR MUSCLE SPASM 0 01/07/20 19 Active CITLALY 0.35 mg tablet Take 1 tablet by mouth daily. 2 01/22/20 19 Active omeprazole (PriLOSEC) 40 mg capsule 07/14/19 22 Active benzonatate (TESSALON) 200 mg capsule 08/30/19 22 Active fluticasone-umecl idinium-vilantero l (Trelegy Ellipta) 100-62.5-25 mcg blister with device 09/03/19 22 Active melatonin 5 mg capsule Take 10 mg by mouth at bed time. 11/07/19 22 Active ondansetron (ZOFRAN) 4 mg tablet 03/18/20 21 Active OXcarbazepine (TRILEPTAL) 300 mg tablet 450 mg 2 times a day. 11/07/19 22 Active hydrOXYzine HCL (ATARAX) 10 mg tablet Take 30 mg by mouth at bed time. Active aMILoride (MIDAMOR) 5 mg tablet Take 5 mg by mouth once a day. Active metFORMIN (GLUCOPHAGE) 500 mg tablet metformin 500 mg tablet TAKE TWO TABLETS BY MOUTH TWICE A DAY 11/19/19 22 Active levothyroxine (SYNTHROID, LEVOTHROID) 25 mcg tablet Take 25 mcg by mouth once a day. 05/26/19 23 Active topiramate (TOPAMAX) 50 mg tabletIndications :Chronic migraine without aura without status migrainosus, not intractable TAKE ONE TABLET BY MOUTH EVERY MORNING AND 4 TABLETS AT NIGHT 150 tablet 6 09/05/19 23 Active Additional Information Patient taking differently: 50 mg oral 2 times daily, (No instructions reported), Reported on 08/05/2024 Emgality Pen 120 mg/mL pen injectorIndicatio ns:Intractable migraine with aura without status migrainosus INJECT 1ML (120MG) UNDER THE SKIN EVERY 28 DAYS 1 mL 11 09/25/19 24 Active rizatriptan (MAXALT) 10 mg tablet Take 1 tablet (10 mg total) by mouth once as needed for migraine for up to 1 dose. May repeat in 2 hours if unresolved. Do not exceed 30 mg in 24 hours. 9 tablet 3 06/11/19 25 Active lamoTRIgine (LaMICtal) 25 mg tablet Take 50 mg by mouth once a day. Active immun glob G,IgG,/gly/IgA ov50 (GAMMAGARD LIQUID INJECTION) Inject 30 g as directed every 21 days. Active gabapentin (NEURONTIN) 600 mg tablet Take 600 mg by mouth 3 times a day. Active venlafaxine (EFFEXOR) 75 mg tablet Take 75 mg by mouth at bed time. Active butalbital-acetam inophen-caffeine (FIORICET) 50-325-40 mg tablet Take 1 tablet by mouth every 4 hours as needed for headache. Active magnesium oxide (MAG-OX) 400 mg (241.3 mg mag) tablet Take 400 mg by mouth once a day. Active ferrous gluconate (FERGON) 324 mg (37.5 mg iron) tablet tablet Take 324 mg by mouth daily with breakfast. Active dulaglutide (Trulicity) 1.5 mg/0.5 mL injection dose Inject 1.5 mg under the skin every 7 days. Active acetaminophen (TYLENOL) 500 mg tablet Take 1,000 mg by mouth every 6 hours as needed for pain. Active guaiFENesin (ROBITUSSIN) 100 mg/5 mL syrup Take 200 mg by mouth 4 times a day as needed for congestion. Active doxycycline monohydrate (ADOXA) 100 mg tablet Take 100 mg by mouth 2 times a day. Active predniSONE (DELTASONE) 10 mg tablet Take 10 mg by mouth once a day. Patient takes 20 to 40 mg prn. Active insulin aspart (NovoLOG) 100 unit/ml injection Inject 0-15 Units under the skin as needed for high blood sugar. Active rimegepant ODT 75 mg (Nurtec ODT) 75 mg tablet,disintegra ting disintegrating tabletIndications :Chronic migraine without aura without status migrainosus, not intractable Dissolve 1 tablet (75 mg total) in the mouth daily as needed (Take at the onset of a migraine headaches ,). 8 tablet 2 08/06/19 Active clonazePAM (KlonoPIN) 0.1 mg/mL suspension Take 0.25 mg by mouth. 02/11/202024 Discontinue d(Therapy Completed or No Longer Needed) albuterol 2.5 mg/3 mL (0.083%) nebulizer solution daily as needed. 09/08/192024 Discontinue d(Therapy Completed or No Longer Needed) benztropine (COGENTIN) 0.5 mg tablet Take 0.5 mg by mouth. 12/17/192024 Discontinue d(Discontin ued by Patient) cariprazine (VRALYAR) 1.5 mg capsule capsule Take 3 mg by mouth. 12/08/19 22 2024 Discontinue d(Discontin ued by Patient) hydroCHLOROthiazi de (HYDRODIURIL) 25 mg tablet Take 25 mg by mouth. 01/25/202024 Discontinue d(Therapy Completed or No Longer Needed) atorvastatin (LIPITOR) 20 mg tablet Take 20 mg by mouth once a day. 05/20/192024 Discontinue d(Discontin ued by Patient) melatonin tablet Take 10 mg by mouth. 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 02/03/2022 Familial Mediterranean fever 02/03/2022 Gastroesophageal reflux disease 02/03/2022 Hay fever 02/03/2022 [...] Sign Reading Time Taken Comments Blood Pressure 118/77 08/05/2024 1:13 PM EDT Pulse 118 08/05/2024 1:13 PM EDT Temperature 36.5 ??C (97.7 ??F) 08/05/2024 1:13 PM ED T Respiratory Rate 16 01/30/2019 11:05 AM [...] Description 11/18/2024 10:30 AM EDT Office Visit [facility] [address] [place] [phone] Disc Sander: Adrienne Gutiérrez MD [address] [place] [phone] Procedures * Due to [place] law, this organization might not be sharing negative HIV tests. Procedure Name Priority Date/Time Associated Diagnosis Comments IMAGING - SCANNED Routine 07/29/2024 8:5 8 AM EDT COMPREHENSIVE METABOLIC PANEL Routine 04/20/2023 9:56 AM EST Chronic migraine without aura without status migrainosus, not intractable HM DIABETES EYE EXAM 11/10/2021 from Last 3 Months or Most Recently Relevant to Health Maintenance Results * Due to [place] law, this organization might not be sharing negative HIV tests. * IMAGING - SCANNED (07/29/2024 8:58 AM EDT) Anatomical Region Laterality Modality Other us Unknown Provider MD SCANNED PROCEDURES Final Res ult * (ABNORMAL) Comprehensive Metabolic Panel (04/20/2023 9:56 AM EST) NA 141 135 - 145 mmol/L 04/20/2023 11:01 AM EST [employer] [facility] K 3.6 3.5 - 5.3 mmol/L 04/20/2023 11:01 AM EST [employer] [facility] Cl 107 97 - 110 mmol/L 04/20/2023 11:01 AM [employer] [facility] CO2 21(L) 24 - 32 mmol/L 04/20/2023 11:01 AM [employer] [facility] Anion Gap 13 5 - 15 04/20/2023 11:01 AM [employer] [facility] Glucose 139(H) 70 - 99 mg/dL 04/20/2023 11:01 AM [employer] [facility] Creatinine 0.89 0.50 - 1.20 mg/dL 04/20/2023 11:01 AM [employer] [facility] Calcium 9.1 8.7 - 10.7 mg/dL 04/20/2023 11:01 AM [employer] [facility] Total Protein 7.1 6.0 - 8.0 g/dL 04/20/2023 11:01 AM [employer] [facility] Albumin 4.4 3.5 - 4.8 g/dL 04/20/2023 11:01 AM [employer] [facility] Bilirubin, Total 0.2(L) 0.3 - 1.2 mg/dL 04/20/2023 11:01 AM [employer] [facility] Alkaline Phosphatase 115 30 - 115 U/L 04/20/2023 11:01 AM [employer] [facility] AST 14 10 - 40 U/L 04/20/2023 11:01 AM [employer] [facility] ALT 19 10 - 40 U/L 04/20/2023 11:01 AM [employer] [facility] BUN 19 7 - 23 mg/dL 04/20/2023 11:01 AM [employer] [facility] eGFR 81 >=60 mL/min/1. 73m2 04/20/2023 11:01 AM [employer] [facility] Comment:The estimated glomer ular [...] MD LAB BLOOD ORDERABLES Final R esult [facility] [address] [place] [address], * DIABETES EYE EXAM (11/10/2021) 11/10/2021 us Onbase Scan [facility] Final Resu lt from Last 3 Months or Most Recently Relevant to Health Maintenance Insurance MEDICARE [facility] [address] Advance Directives Documents on File Type Date Recorded Patient Bale Piler Expl reg Health Care Proxy 02/14/2017 2:27 PM Care Teams Driller Operator Relationship Specialty Start Date End Date Bernie Aquino [address] [place] [id number] PCP - General 08/22/21
--- OUTSIDE RECORDS SUMMARY | 2024-08-27 13:45 | XMS_ITS | Data Portability ---
Author Organization [place] - [facility], Allergy Address [address] [address] Assessment Encounter Date Assessment Date Assessment LastModified [...] is ineffective, recommend follow up with their dentist.? ? ?Referral to physical therapist who specializes in TMJ disorders was provided. [email or web address] Not available 05/23/2024 15:10:39 Plan of Treatment Reminders Order Date Submit Date Provider Last Modified By Organization Details Last Modified Time Details Appointments None recorded . Lab None recorded . Referral physical therapis t referral 2024 025 [email or web address], [address], [facility], [place], [address], 12:41:45 Procedures None recorded . Surgeries None recorded . Imaging CT, sinuses, w/o contrast 2023 024 becca Ents Of [facility], [address] [place] [address], [address], 4 10:39:49 Medication Orders budesoni de 0.5 mg/2 mL suspensi on for nebuliza tion 2023 024 [id number], [address] [facility], [place], [address], 10:37:41 Patient TargetsNo targets recorded. Patient InstructionsNo instructions recorded. Reason for Referral Physical Therapist Referral for Pain of left temporomandibular joint Referring Physician: Juanita Vo, Otolaryngology, Encounter Date: 05/23/2024 Results Created Date Observation Date Name Description Value Unit Range Abnormal Flag Note LastModifiedBy Organization Detail LastModifiedTime 10/01/19 CT, sinus es, w/o contr ast No observ ation record ed. evelyn Ents Of [address], [address], 10/01/2023 10:36:08 10/17/19 24 10/01/2023 CT, sinus es, w/o contr ast No observ ation record ed. [email or web address] [address], [address], 10/17/2023 12:45:07 01/02/20 24 05/28/2019 imagi ng/di [...] Organization Details Recorded Time Nasal congestio n 50935488 Active 2019 Nasal congestio n; Note: Date Diagnosed : 05/26/2019 1:39 PM (R09.81) Not Available [facility] 02:47:40 Immunodef iciency disorder 816380548 Active 2019 Immunodef iciency, unspecifi ed; Note: Changed from D84 to D84.9 ( 11:21 AM) , Date Diagnosed : 05/26/2019 1:39 PM (D84) Not Available [facility] 4 02:47:43 Sensorine ural hearing loss 83166272 Active 2020 Sensorine ural hearing loss, unilatera l, left ear, with unrestric dariana hearing on the contralat eral side; Note: Date Diagnosed : 01/20/2021 1:26 PM (H90.42) Not Available [facility] 4 02:47:40 Chronic sinusitis 50465342 Active 2020 Sinusitis (chronic) NOS; Note: Date Diagnosed : 1 2:03 PM (J32.9) Not Available [facility] 4 02:47:42 Posterior rhinorrhe a 48011727 Active 2019 Postnasal drip; Note: Date Diagnosed : 05/26/2019 2:03 PM (R09.82) Not Available 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 4 02:47:43 Headache 72553027 Active 2019 Headache; Note: Date Diagnosed : 05/26/2019 1:39 PM (R51) Headach e, unspecifi ed; Note: Changed from R51 to R51.9 (04/27/20 21 3:39 PM) , Date Diagnosed : 05/26/2019 1:39 PM (R51) Not Available [facility] 4 02:47:47 Chronic cough 62472041 Active 2023 LIDYA MINOR MD [address] [place] [address], [place], [address] , [facility] 4 10:16:49 Perennial allergic rhinitis 991066349 Active 2023 LIDYA MINOR MD [address] [facility] [place] [facility] [place], [place], [address] , [place] - [facility] 4 10:17:00 Hyperimmu noglobuli n E syndrome 19474653 Active 2023 LIDYA MINOR MD [address] [facility] [place] [address], [place], [address] , [place] [facility] 4 10:17:16 Moderate persisten t asthma 846914187 Active 2023 LIDYA MINOR MD [address] [facility],[place] [address], [place], [address] , [place] [facility] 4 10:17:24 Polyp of nasal cavity 637672922 Active 2023 LIDYA MINOR MD [address] [facility],[place] [address], [place], [address] , [place] - [facility] 4 10:36:51 Pain of left temporoma ndibular joint 40639247385 113694 Active 2024 JUANITA VO PA-C [address] [facility],[place] [address], [place], [address] , [place] - [facility] 5 13:37:29 Problem Notes None recorded. Procedures Surgical History Date Name Laterality Status Provider Name and Address Organization Details Recorded Time Air & Speech Audio with Tymps (76612, 86014 & 06965) completed TAWANNA WEAVER [address] [facility] [place] [facility] [place] [facility] [place], [place], [address], [place] - [facility] 05/23/2024 13:49:00 4 JMSNasal/Sinus Endoscopy completed LIDYA URIBE MD [address] [facility],[place] [address], [place], [address], [place] [facility] 10/01/2023 10:35:41 functional endoscopic sinus surgery completed LIDYA URIBE MD [address], [address], [place] [facility] 09/30/2023 14:24:57 simple extraction of tooth completed LIDYA URIBE MD [address], [address], [place] [facility] 09/30/2023 14:25:15 dilation and curettage completed LIDYA URIBE MD [address] [place] [address], [address], [place] [facility] 09/30/2023 14:26:03 arthroscopy of knee completed LIDYA URIBE MD [address] [place] [address], [address], [place] [facility] 09/30/2023 14:26:15 Imaging Results Imaging Date Name Status LastModified by [facility] Details LastModified Time 10/01/2023 CT, sinuses, w/o contrast completed evelyn Ents [address], [address], 10/01/2023 10:36:08 10/01/2023 CT, sinuses, w/o contrast completed evelyn [facility] [address], [address], 10/17/2023 12:45:07 05/28/2019 imaging/diagno stic result completed [...] Name and Address Organization Details Recorded Time 511312 Flonase medicatio n other Not available Not available 09/25/2023 39860 RxNorm React ion: unkno wn, unspe cifie d;; Not Available [facility] 4 01:19:32 353305 Demerol medicatio n Not available Not available Not available 10/01/2023 58609 1 RxNorm Serge murphy [place] - [facility] 4 10:10:31 181361 morphine medicatio n Not available Not available Not available 10/01/2023 7052 RxNorm Serge murphy [place] - [facility] 4 10:10:40 Medications Name Sig Start [...] mg tablet 04/26 completed Medicati on ID: [id number] D uration Value: 30 Brand Name: gabapent [...] 10 mg tablet active Medicati on ID: 011927 B rand Name: atorvast atin Sen d [...] 8 mg tablet active Medicati on ID: 877652 B rand Name: ondanset sharon HCl Send [...] mg tablet 05/23 completed Medicati on ID: [id number] D uration Value: 30 Brand Name: benztrop ine Send Method: E-Prescr ibed Sub s Allowed: subs JENNIFER Bhardwaji al Instruct ion: TAKE 1/2 TABLET BY MOUTH IN THE MORNING AND 1 TABLET BY MOUTH AT BEDTI [place] Medic ationGen ericName : benztrop ine Not [...] elayed release 09/30 completed Medicati on ID: [id number] D uration Value: 90 Brand Name: omeprazo le Send Method: E-Prescr ibed Sub s Allowed: subs OK Speci al Instruct ion: TAKE ONE CAPSULE BY MOUTH TWICE A DAY Medi cationGe nericNam e: omeprazo le Medic ation ID: [id number] D uration Value: 90 Brand Name: omeprazo [...] mg tablet 04/26 completed Medicati on ID: 533462 D uration Value: 30 Brand Name: folic acid Sen d Method: E-Prescr ibed Sub s Allowed: subs OK Speci al Instruct ion: TAKE FOUR TABLETS BY MOUTH EVERY DAY [facility] Medical GroupGe nericNam e: folic acid Not Available Not [...] 24 hr 2019 active Medicati on ID: 570374 D uration Value: 30 Brand Name: metformi [...] mg tablet 2019 active Medicati on ID: 477642 D uration Value: 30 Brand Name: lisinopr il Send Method: E-Prescr ibed Sub s Allowed: subs OK Speci al Instruct ion: TAKE ONE TABLET BY MOUTH EVERY DAY Medi cationGe nericNam e: lisinopr il Not Available Not Available Not Available ipratropi um bromide 21 mcg (0.03 %) nasal spray 2 spray 04/26 completed Medicati on ID: [id number] [place] By Name: Jerome Sauer nd [...] mg tablet 04/26 completed Medicati on ID: [id number] D uration Value: 30 Brand Name: Latuda [...] mg capsule 04/26 completed Medicati on ID: [id number] D uration Value: 30 Brand Name: Vraylar Send Method: E-Prescr ibed Sub s Allowed: subs OK Speci al Instruct ion: TAKE ONE CAPSULE BY MOUTH EVERY DAY IN THE MORNING Medicati onGeneri cName: Vraylar Medicati on ID: [id number] D uration Value: 30 Brand Name: Vraylar [...] Updated DateTime 10/01/2023 162.56 cm 29 kg/m2 11647.11 g Serge [facility] 10/01/2023 10:14:43 Date Recorded Body height Body mass index (BMI) Body weight Provider Name and Address Organization Details Last Updated DateTime 05/23/2024 162.56 cm 29 kg/m2 48053.11 g Trish Montez [place] - [facility] 05/23/2024 13:23:27 Social History Question Answer Notes LastModified by Organizat ion Details LastModified Time Tobacco Smoking Status Never Smoker Serge murphy [place] - [facility] 10/01/2023 10:11:57 What Is Your Level Of Alcohol Consumption? None Information not available 10/01/2023 Do You Use Any Illicit Or Recreational Drugs? No [email or web address] Information not available 10/01/2023 Do You Or Have You Ever Used Any Other Forms Of Tobacco Or Nicotine? No [email or web address] Information not available 10/01/2023 Sex: Unknown Functional Status None recorded. Mental Status None recorded. Family History Nothing Reported. Medical History Condition Response Allergies/Hayfever N Heart Problems N Emphysema N Migraines N Thyroid Problems N COPD N Depression Y Glaucoma N Nasal or Sinus Problems N Anemia N Immune System Disorder N Anesthesia Complications N Heart Attack ([place]) N Other Skin Condition N Diabetes Y Bleeding Disorder N Food Allergy N Arthritis Y Hearing Loss N Hyperlipidemia Y Stroke N Dementia N Nasal polyps N Asthma N Sleep Disorder Y GERD/Reflux N High Cholesterol Y Liver Disease N Headaches Y Fibromyalgia N Hypertension N Speech Delay N Kidney Disease Y Gynecological HistoryNo gynecological history recorded. Obstetrics History GPAL:G 0 P 0 0 0 0 Past Encounters Encounter ID Performer Location Encounter Start Date Encounter Closed Date Diagnosis/Indication Diagnosis SNOMED-CT Code Diagnosis ICD10 Code Diagnosis Note [id number] LIDYA MINOR MD [facility] [address] [address] 10/01/2023 09:53:23 10/01/2023 10:39:48 Chronic cough 46943526 R05.3 Posterior rhinorrhea 758 80812 R09.82 Perennial allergic rhinitis 883471124 J30.89 Hypogammaglobulinemia 11 3325509 D80.1 Hyperimmun oglobulin E syndrome 49540196 D82.4 Moderate p ersistent asthma 764769381 J45.40 Chronic sinusitis 553860 00 J32.9 Polyp of nasal cavity 73 6968047 J33.0 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 There is evidence of prior sinus surgery with an adhesion on the right side. Bilateral diffuse maxillary sinus thickening noted. Suggest topical steroid irrigation s and follow-up in 3 months. No indication for surgical interventi on at the present time [id number] LIDYA MINOR MD [facility] [address] [address] 05/23/2024 13:20:39 05/23/2024 14:18:31 Pain of left temporomandibular joint 1088737159 2357402 M26.622 Right Ear:Normal hearing with excellent speech [...] ID Guarantor Name 10/01/2023 2 MEDICARE B-[place]: [facility] Meredith Leah Radha [id number] Meredith Leah Radha 10/01/2023 1 BCBS-ID:[facility] [id number] Pineda Garcia [id number] Meredith Lynn Radha 05/23/2024 2 MEDICARE B-[place]: [facility] Meredith Garcia [id number] Meredith Leah Radha 05/23/2024 1 BCBS-ID:[facility] [id number] Pineda Garcia [id number] Meredith Leah Radha Notes Date Note Type Note Provider Name and Address Organization Details Recorded Time 4 text/html Hx of severe allergy, hypogammaglobulinemia and elevated IgE. Prior FESS-Presently on Xolair and IV IgG. Reports persistent sinus symptoms despite 4 courses of antibiotics over the last 6 months. She reports having an abnormal sinus x-ray. Avoids FP due to allergy with the scent. LIDYA URIBE MD [address] [place] [address], [place], [address], [facility] - [facility] 10/01/2023 12:13:54 5 text/html 48 year [...] unintentional weight loss . LIDYA URIBE MD [address] [place] [address], [address], [facility] - [facility] 05/23/2024 16:54:36 OBGyn Episode No OBEpisode recorded.
--- OUTSIDE RECORDS SUMMARY | 2024-08-27 13:45 | XMS_ITS | Clinical Summary ---
Author Organization [facility] Address [address] [place] [address] Care Team Providers Care Parent Partner Name Role Phone Bernie Aquino FEED HANDLER Primary Care Provider [phone] Allergies Active Allergy Reactions Criticality Noted Date [...] age to complete this topic Care Teams Parent Partner Relationship Specialty Start Date End Date Bernie Aquino, FEED HANDLER [address] [facility] [place] [address] PCP - General Family Medicine 10/05/21
--- OUTSIDE RECORDS SUMMARY | 2024-08-27 13:46 | XMS_ITS | Encounter Summary ---
Author Organization [employer] Address [address] [place] [address] Care Team Providers Care Shearing Machine Tender Name Role Phone Bernie Aquino SHIP DESIGN TEACHER Primary Care Provider + [phone] Reason for Visit * Episode Based Medications (Routine) - Authorized Specialty Diagnoses / Procedures Referred By Javier cruz Referred To Contact Diagnoses Moderate persistent asthma, unspecified whether complicated Acquired primary hypogammaglobulinemia (CMS/HCC V24) Julio Araya MD [address] [place] [address] Phone: tel: fax: [facility] [address] [place] [address] Phone: tel: fax: Referral ID Status Reason Start Date Expiration Date V isits Requested Visits Authorized [id number] Authorized 07/21/2024 07/21/2025 1 24 Encounter Details Date Type Department Care Team (Latest Contact Info) Description 08/26/2024 8:19 AM EDT Hospital Encounter [facility] [address] [place] [phone] Deandre Schroeder MD [address] [place] [phone] CVID (common variable immunodeficiency) ([facility] V24, [facility] V28) (Primary Dx) Social History Tobacco Use Types [...] Sign Reading Time Taken Comments Blood Pressure 114/77 08/26/2024 8:28 AM EDT Pulse 94 08/26/2024 8:28 AM EDT Temperature 36.3 ??C (97.3 ??F) 08/26/2024 8:28 AM ED T Respiratory Rate 18 08/26/2024 8:28 AM EDT Oxygen Saturation 99% 08/26/2024 8:28 AM EDT Inhaled Oxygen Concentration - - Weight 76.3 kg (168 lb 3.4 oz) 08/26/2024 8:28 A M EDT Height - - Body Mass Index 28.87 07/13/2024 2:54 PM EST documented in this [...] documented in this encounter Progress Notes * Izzy Lovett RN - 08/26/2024 8:30 AM EDT 0845- Pt arrived today for IVIG infusion. Pt reports feeling rather well today. Pt had a fall in April, and continues with post concussion headaches and neck pain. Pt taking ibuprofen as needed. Pt expressed significant improvements to her health post filing for divorce. No one could ever figure out what was wrong with me and I finally figured out, my marriage was what was making me sick. We a re finally both getting healthy for ourselves. Pt reports having more energy, being able to exercise like swim and walk, and feeling so much better overall. Pt provided this RN with medication updates. Port accessed without diff. Treatment released. Hydration initiated. Pt resting comfortably at this time. Call boyd within reach. 1030- Pre hydration completed without incident. Pt very happy as she has gotten all her phone callsdone. IVIG initiated and running over 4 steps. Pt continues to rest comfortably at this time with call boyd in reach. 1250- IVIG completed without incident. Pt enjoyed lunch and rested comfortably throughout treatment. Next appts made and provided. No further questions. Pt knows she will be returning tomorrow to start a new injection, xolair. Port flushed/deaccessed per protocol. Pt left unit, stable at D/C. documented in this encounter Plan of Treatment Upcoming Encounters Date Type Department Care Team (Late st Contact Info) Description 08/27/2024 2:30 PM EDT Treatment [address] [phone] Jessica Hull, STORY WRITER 09/10/2024 9:10 AM EDT Office Visit Gastroenterology - [address] [phone] Leif Burciaga PA [address] [address] 09/16/2024 9:00 AM EDT Appointment [facility] [address] [address] 09/24/2024 9:30 AM EDT Appointment [facility] [address] [address] 10/22/2024 9:30 AM EDT Appointment [facility] [address] [phone] documented as of this encounter Goals Goal Patient Goal Type Associated Problems Recent Progress Patient-Stated? Author STORY WRITER LTG General No Jessica Hull, STORY WRITER Note: Pt will improve cognitive linguistic function to participate and communicate in iADLs mod I STORY WRITER STGs General No Jessica Hull, STORY WRITER Note: Pt will participate with development of personalized HEP to perform 4-5xs/wk with min assist for modifications Pt will complete auditory and visual working memory/mental flexibility tasks of 2-3 components with min cues to be 80%ac Pt will participate in ongoing training of internal/external memory strategies and ID pertinent techniques to use in daily life independently Pt will recall 4 related/unrelated words after 10m using compensatory strategies min assist documented as of this encounter Visit Diagnoses Diagnosis CVID (common variable immunodeficiency) ([facility] V24, [facility] V28)- Primary Common variable immunodeficiency documented in this encounter Administered Medications Inactive Administered Medications - up to 3 most recent administrations Medication Order MAR Action Action Date Dose Rate Site acetaminophen (TYLENOL) tablet 650 mg 650 mg, oral, Once, On Sun08/26/24 at 0915, For 1 doseIndications:CVID (common variable immunodeficiency) (CMS/HCC V24, [facility] V28) Given 08/26/2024 9:14 AM EDT 650 mg immune globulin (human) (GAMMAGARD) 10 % infusion 30 g 30 g, intravenous, Once, On Sun08/26/24 at 0915, For 1 dose, Gammagard brand 30 grams. Administer per institutional standards., Preferred Brand: GammaGard LiquidIndications:CVID (common variable immunodeficiency) ([facility] [place], [facility] V28) New Bag 08/26/2024 10:26 AM EDT 30 g sodium chloride 0.9 % bolus 1,000 mL 1,000 mL, intravenous, at 500 mL/hr, Administer over 2 Hours, Once, On Sun08/26/24 at 0915, For 1 doseIndications:CVID (common variable immunodeficiency) ([facility] [place]24, [facility] V28) New Bag 08/26/2024 8:42 AM EDT 1,000 mL 500 mL/hr documented in this encounter Historical Medications * This list may reflect changes made after this encounter. Ozempic 0.25 mg or 0.5 mg (2 mg/3 mL) injection pen Inject 0.5 mg under the skin. 08/20/2024 03/18/2025 added in this encounter Orders Nursing Count Last Ordered Date First Orde red Date ONC NURSING COMMUNICATION 1 08/26/2024 TREATMENT CONDITIONS 1 08/26/2024 documented in this encounter Care Teams Shearing Machine Tender Relationship Specialty Start Date End Date Bernie Aquino NP [address] [facility] [place] [address] PCP - General Family Medicine 10/05/21 documented as of this encounter
--- OUTSIDE RECORDS SUMMARY | 2024-08-27 13:46 | XMS_ITS | Encounter Summary ---
Author Organization [facility] Address [address] [place] [address] Phone Care Team Providers Care Die Cast Patternmaker Name Role Phone Unavailable Primary Care Provider Unavailabl e Encounter Details Date Type Department Care Team (Late st Contact Info) Description 07/05/2022 Telephone [facility] [address] [place] [address] Julee Stephens [place] Social History [...] you to know the orders are at [facility]. documented in this encounter Plan of Treatment Not on file documented as of this encounter Visit Diagnoses Not on filedocumented in this encounter
--- OUTSIDE RECORDS SUMMARY | 2024-08-27 13:46 | XMS_ITS | Encounter Summary ---
Author Organization [facility] Address [address] [place] [address] Care Team Providers Care Hydrochloric Area Supervisor Name Role Phone Bernie Aquino Primary Care Provider [phone] Encounter Details Date Type Department Care Team (Late st Contact Info) Description 04/05/2020 Documentation [facility] Building [address] [place] [address] Rafaela Pedro CPhT Social History Tobacco Use [...] Description 11/18/2024 10:30 AM EDT Office Visit [facility] [address] [place] [address] Weight Loss Consultant: Adrienne Gutiérrez MD [address] [place] [phone] documented as of this encounter Visit Diagnoses Not on filedocumented in this encounter Care Teams Hydrochloric Area Supervisor Relationship Specialty Start Date End Date Bernie Aquino [address] [place] [address] PCP - General 08/22/21 documented as of this encounter
--- OUTSIDE RECORDS SUMMARY | 2024-08-27 13:46 | XMS_ITS | Clinical Summary ---
Author Organization [facility] Address [address] [place] [address] Phone Care Team Providers Care Purchasing/Receiving Name Role Phone Unavailable Primary Care Provider [...] 01/07/20 22 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 01/06/2022 Immunizations Immunization Administration Dates Next Due Influenza Whole 01/05/2012,01/23/2011,02/16/2010 [...] - 19+ 3-dose series) 10/27/1994 Pneumococcal Vaccine: Peds ( 0 to 5 Years) and At-Risk Patients (6 to 49 Years) (3 of 3 - PPSV23, PCV20 or PCV21) 12/19/2014 05/13/2014, 12/19/2009 Diabetes: Hemoglobin A1C 12/05/2021 Diabetes: Pedal Pulse Checked 12/05/2021 Diabetes: Sensory Foot Exam 12/05/2021 Diabetes: Visual Foot Exam 12/05/2021 Diabetes: Ophthalmology Exam 07/01/2022 07/01/2021 Influenza Vaccine (Season Ended) 2025 01/05/2012, 01/23/2011, 02/16/2010, Additional history exists Pneumococcal Vaccine: 50+ Years Discontinued 4, 12/19/2009 Insurance Medicare [facility] Medicare [facility]
--- OUTSIDE RECORDS SUMMARY | 2024-08-27 13:46 | XMS_ITS | Encounter Summary ---
Author Organization [facility] Address [address] [place] [address] Care Team Providers Care Deputy Manager Name Role Phone MilesTristenca Primary Care Provider [phone] Reason for Visit * Reason Onset Date Comments Reschedule 10/18/2021 Encounter Details Date Type Department Care Team (Late st Contact Info) Description 10/18/2021 Telephone [facility] Central Scheduling Department [address] [place] [address] Telephone Intake, Staff Reschedule Social History Tobacco [...] pls follow up with pt to coordinate [phone] documented in this encounter Plan of Treatment Upcoming Encounters Date Type Department Care Team (Late st Contact Info) Description 11/18/2024 10:30 AM EDT Office Visit [facility] [address] [place] [address] Roundhouse Worker: Adrienne Gutiérrez MD [address] [place] [address] documented as of this encounter Visit Diagnoses Not on filedocumented in this encounter Care Teams Deputy Manager Relationship Specialty Start Date End Date Bernie Aquino [address] [place] [address] PCP - General 08/22/21 documented as of this encounter
--- OUTSIDE RECORDS SUMMARY | 2024-08-27 13:46 | XMS_ITS | Encounter Summary ---
Author Organization [facility] Address [address] [place] [address] Care Team Providers Care Dean Of Student Services Name Role Phone Bernie Aquino Primary Care Provider [phone] Encounter Details Date Type Department Care Team (Late st Contact Info) Description 04/12/2021 Orders Only [facility] [address] [place] [address] ProviderCaitlyn MD [address] [place] [address] Social History Tobacco Use Types Packs/Day [...] Description 11/18/2024 10:30 AM EDT Office Visit [facility] [address] [place] [address] Battery Installer: Adrienne Gutiérrez MD [address] [place] [address] documented as of this encounter Procedures * Due to [place] state law, this organization might not be sharing negative HIV tests. Procedure Name Priority Date/Time Associated Diagnosis Comments AMB EXTERNAL CT HEAD, OUTSID E RESULT Routine 03/15/2021 documented in this encounter Results * Due to [place] [employer] law, this organization might not be sharing negative HIV tests. * CT Head, Outside Result (03/15/2021) Anatomical Region Laterality Modality Other us Unknown Provider MD JEFFERSON EXTERNAL RESULT PROCEDUR ES Final Result documented in this encounter Visit Diagnoses Not on filedocumented in this encounter Care Teams Dean Of Student Services Relationship Specialty Start Date End Date Bernie Aquino [address] [place] [address] PCP - General 08/22/21 documented as of this encounter
--- OUTSIDE RECORDS SUMMARY | 2024-08-27 13:46 | XMS_ITS | Data Portability ---
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 This visit is a smpg-oj-mdkd visit during the COVID-19 pandemic Public Health [...] ? Additional clinical staff and medical technical editor time for pre-screening ? Time spent reviewing COVID social distancing guidelines, precautions, instructions, and signage ? Patient symptom checking upon arrival ? Application, removal, and purchasing of additional PPE ? Additional cleaning of exam room, equipment, supplies, as well as cleaning supplies for that purpose. [email or web address] Not available 07/08/2021 12:37:18 07/26/2021 07/26/2021 Assessment: Michael t hip degenerative labral tear in setting [...] loose bodies 2021 022 [email or web address] [facility], [address] [place], [address], 09:34:34 Medication Orders None recorded. Patient TargetsNo [...] wo pelvi s Fin al Report EXAM#: [id number] PROCED URE: DXR 0178 XR HIP [...] RAMÍREZ M.D. On: Jul 06 2021 1:13P [email or web address] [facility] [address] [facility], [place], [address], 07/06/2021 14:45:47 07/19/19 22 07/16/2021 MRI, hip, w/o contr ast Pre limina ry Report EXAM#: [id number] PROCED URE: MR 0073 MRI HIP [...] 18 2021 9:11A Signed by: On: prem [facility] [address] [facility], [place], [address], 07/18/2021 14:51:07 07/19/19 22 07/16/2021 MRI, hip, w/o contr ast Fin al Report EXAM#: [id number] PROCED URE: MR 0073 MRI HIP [...] and bilate ral ankles accord ing to Dnaiel protoc ol. COMPAR TOPHER: RIGHT HIP MRI [...] WASHINGTON M.D. On: Jul 18 2021 11:57A [email or web address] [facility] [address] [facility] [place], [address], 07/18/2021 14:01:26 03/29/2003/27/2022 MRI hip left Frank al Report EXAM#: [id number] PROCED URE: MR 0070 MRI HIP [...] supero inferi or by 0.3 cm tate covered buckle assembler ior by 0.3 cm mediol ateral (axial [...] WASHINGTON M.D. On: Mar 29 2022 9:14A [email or web address] [facility] [address] [facility], [place], [address], 03/29/2022 13:42:34 03/29/20 22 03/27/2022 MRI, hip, w/o contr ast Fin al Report EXAM#: [id number] PROCED URE: MR 0073 MRI HIP [...] WASHINGTON M.D. On: Mar 29 2022 9:25A [email or web address] [facility] [address] [place], [address], 03/29/2022 13:42:48 01/18/20 23 01/17/2023 xr hip right 4vw_W or wo pelvi s Fin al Report EXAM#: [id number] PROCED URE: DXR 0178 XR HIP [...] M.D. On: Jan 17 2023 12:22P [email or web address] [facility] [address] [place], [address], 01/17/2023 12:38:51 Result Notes None recorded. Problems Name Problem SNOMED Code Status Onset Date Resolution Date Notes Provider Name and Address Organization Details Recorded Time Acetabular labrum tear 146493038 Active 021 Enedina murphy [facility] 14:17:00 Problem Notes None recorded. Procedures Surgical History Date Name Laterality Status Provider Name and Address Organization Details Recorded Time 022 parathyroidectomy completed Sonya Nation [facility] 04/12/2022 13:46:24 018 Orthopaedic Surgery completed Lexii Pacheco [facility] 02/23/2021 13:14:29 009 Orthopaedic Surgery completed Lexii Pacheco [facility] 02/23/2021 13:14:38 000 Orthopaedic Surgery completed Lexii Pacheco [facility] 02/23/2021 13:14:46 Imaging Results Imaging Date Name Status LastModified by Organiz ation Details LastModified Time 07/06/2021 xr hip right 4vw_W or wo pelvis completed [address] [facility] [address] [place], [address], 07/06/2021 14:45:47 07/16/2021 MRI, hip, w/o contrast completed [address] [facility] [address] [place], [address], 07/18/2021 14:51:07 07/16/2021 MRI, hip, w/o contrast completed [address] [facility] [address] [place], [address], 07/18/2021 14:01:26 03/27/2022 MRI hip left completed [address] [facility] [place] [address], [address], 03/29/2022 13:42:34 03/27/2022 MRI, hip, w/o contrast completed [address] [facility] [address] [place], [address], 03/29/2022 13:42:48 01/17/2023 xr hip right 4vw_W or wo pelvis completed [email or web address] [facility] [address] [facility], [place], [address], 01/17/2023 12:38:51 Procedure Notes None recorded. Medical Equipment None Reported. Allergies Allergen ID Allergen Name Allergen Category Reaction Reaction Severity Criticality Documentation Date Start Date Code Code System Note Provider Name and Address Organization Details Recorded Time 133836 morphine medicatio n Not available Not available Not available 02/23/2021 7052 RxNorm Lexii Tara [facility] 13:07:48 267323 adhesive tape environme nt,medica tion Not available Not available Not available 02/23/2021 09511 UNK Lexii Tara [facility] 13:07:48 153918 Demerol medicatio n Not available Not available Not available 02/23/2021 03512 1 RxNorm Lexii Tara [facility] 13:07:48 715001 Non-stero idal anti-infl ammatory agent (product) medicatio n other Not available Not available 02/23/2021 67510 005 SNOMED IgG defic iency , canno t take. Lexii Tara [facility] 13:13:07 Medications Name Sig Start Date Stop [...] Available Not Available No t Available [facility] mg disintegrat ing tablet PLACE ONE TABLET BY MOUTH EVERY OTHER DAY 2021 active Not Available Not Available Not Avai lable Vitals Date Recorded Body height Provider Name an d Address Organization Details Last Updated DateTime 07/06/2021 162.56 cm Dhaval Coburn [facility] [place] 07/06/2021 11:20:09 Date Recorded Body height Body mass index (BMI) Body weight Provider Name and Address Organization Details Last Updated DateTime 07/26/2021 162.56 cm 28.7 kg/m2 45820.93 g [facility] 07/26/2021 12:20:18 Date Recorded Body height Body mass index (BMI) Body weight Provider Name and Address Organization Details Last Updated DateTime 03/10/2022 162.56 cm 28.8 kg/m2 34626.52 g Rosio Whaley [facility] 03/10/2022 13:26:00 Date Recorded Body height Body mass index (BMI) Body weight Provider Name and Address Organization Details Last Updated DateTime 04/12/2022 162.56 cm 29.5 kg/m2 77687.89 g [facility] 04/12/2022 13:46:00 Date Recorded Body height Provider Name an d Address Organization Details Last Updated DateTime 01/17/2023 162.56 cm Shalom Gaona [facility] [place] 01/17/2023 11:59:26 Social History Question Answer Notes LastModified by Organizat ion Details LastModified Time Tobacco Smoking Status Never Smoker Lexii Tara [facility] 02/23/2021 13:07:49 What Is Your Level Of Alcohol Consumption? None [email or web address] Information not available 02/23/2021 What Is Your Level Of Caffeine Consumption? None Information not available 03/10/2022 Do You Or Have You Ever Used E-cigarettes Or Vape? Never Used Electronic Cigarettes [email or web address] Information not available 02/23/2021 What Is Your Occupation? Disadled [email or web address] Information not available 02/23/2021 Have You Had Cortisone? Yes [email or web address] Information not available 02/23/2021 Briefly Explain Your Foot/ankle Condition (injury) Hip Problem, Pain, Instability, Weakness, Stiffness, Spasms, Some Sharp Pains [email or web address] Information not available 02/23/2021 Date Of Injury/Duration Of Injury (weeks, Months, Years) No Injury, Date Of Initial Diagnosis 2017 [email or web address] Information not available 02/23/2021 What Treatments Have You Tried For This Condition? Cortisone Shot, A Little Pt [email or web address] Information not available 02/23/2021 Have Any Other Tests Been Done For This Problem? X-ray [email or web address] Information not available 02/23/2021 Is This Condition/proble m Affecting Your Ability To Exercise Or Perform Activities Of Daily Living? Yes [email or web address] Information not available 02/23/2021 Do You Wear Custom-made Orthotics? No [email or web address] Information not available 02/23/2021 How Old Are They? 4 Years [email or web address] Information not available 02/23/2021 Have You Ever Had Problems With Healing A Wound? Have You Ever Been Told You Are A Slow Healer? No [email or web address] Information not available 02/23/2021 Do You Or Have You Ever Used Smokeless Tobacco? Never Used Smokeless Tobacco [email or web address] Information not available 02/23/2021 How Much Tobacco Do You Smoke? No [email or web address] Information not available 02/23/2021 What Types Of Sporting Activities Do You Participate In? None [email or web address] Information not available 02/23/2021 How Many Years Have You Smoked Tobacco? 0 [email or web address] Information not available 02/23/2021 Sex: Unknown Functional Status Question Answer Note LastModified by Organizat ion Details LastModified Time What is your exercise level? Occasional Information not available 03/10/2022 Mental Status None recorded. Family History Relationship Description Onset Age of this Age Resolved Age Notes LastModified by Organization Details LastModified Time Father No current problems or disability [email or web address] Not available 13:13:31 Mother No current problems or disability [email or web address] Not available 13:13:31 Medical History Condition Response [...] Asthma / Shortness of Breath / Sleep Loss Prevention Detective ea (please specify) Y Pulmonary Embolism N Gynecological HistoryNo gynecological history recorded. Obstetrics History GPAL:G 0 P 0 0 0 0 Past Encounters Encounter ID Performer Location Encounter Start Date Encounter Closed Date Diagnosis/Indication Diagnosis SNOMED-CT Code Diagnosis ICD10 Code Diagnosis Note [id number] WANG VALENZUELA MD [facility] am Office [address] [place] [phone] 02/23/2021 12:48:39 02/23/2021 13:44:40 Hip pain 36662410 M25.551 Acetabular labrum tear 937328233 M24.151 [id number] ROMY MULLER [facility] am Office [address] [facility] [place] [address] 03/16/2021 13:16:51 03/16/2021 14:16:47 Acetabular labrum tear 453180651 M24.151 [id number] ROMY MULLER [facility] Office [address] [facility] [address] 05/18/2021 12:19:43 05/18/2021 13:04:42 Acetabular labrum tear 240868841 M24.151 [id number] WANG VALENZUELA MD [facility] [address] [address] 07/06/2021 10:39:57 07/06/2021 21:38:58 Hip pain 95149464 M25.551 [id number] WANG VALENZUELA MD [facility] Office [address] [place] [address] 07/26/2021 09:33:05 07/26/2021 15:13:55 Osteoarthritis of right hip joint 8296655634 24009 M16.11 [id number] WANG VALENZUELA MD [facility] Office [address] [place] [phone] 03/10/2022 12:49:51 03/16/2022 20:28:35 Hip pain 66219052 M25.402 [id number] WANG VALENZUELA MD [facility] Office [address] [address] 04/12/2022 13:04:41 04/19/2022 10:57:56 Hip pain 92573515 M25.997 [id number] ROMY COLORADO [facility] Office [address] [address] 01/17/2023 10:53:10 01/17/2023 12:11:23 Complete tear, hip ligament 930347254 S73.101A Health Concerns Section Related Observation LastModified by Organization Detai ls LastModified Time None Recorded Concern Status LastModified by Organization Details LastModified Time None Recorded Advance Directives Directive None Recorded Payers Encounter Date Sequence Insurance Name Policy Number Policy Brambila Covered Member ID Brambila Member ID Guarantor Name 07/06/2021 1 [facility]UE [facility] [id number] Pineda Garcia [id number] Meredith Garcia 07/06/2021 2 [place] [facility] Meredith Arreguins [id number] [id number] Meredith Garcia 07/26/2021 1 [place] [employer] [id number] Pineda Arreguins [id number] Meredith Garcia 07/26/2021 2 [place] [facility] Meredith Arreguins [id number] [id number] Meredith Garcia 03/10/2022 1 [place] [id number] Pineda Garcia [id number] Meredith Garcia 03/10/2022 2 [place] [facility] Meredith Arreguins [id number] Meredith Garcia 04/12/2022 1 [place] [place] [id number] Pineda Garcia [id number] Meredith Garcia 04/12/2022 2 [place] [facility] Meredith Arreguins [id number] Meredith Garcia 01/17/2023 1 [place] [place] [id number] Pineda Arreguins [id number] Meredith Garcia 01/17/2023 2 [place]: [facility] Meredith Arreguins [id number] R24 Meredith Arreguins Notes Date Note Type Note [...] considering a thyroidectomy soon. WANG VALENZUELA MD [address] [place] [address], [phone], [facility] 07/13/2021 11:11:43 07/26/2021 text/html COVID-19 [facility] NT: This visit was conducted as a real time interactive TeleHealth audiovisual TeleHealth visit conducted via Mobile [employer] 4 U during the ongoing COVID-19 [facility] [place] Public Health Emergency. The patient was identified by name and date of and consented to this TeleHealth visit. The patient was at their home in [place] and I was at my [place] office. This was done over the course of 26 minutes including record review. We are in touch with Meredith today via telehealth. Patient is currently in [place]. This is for follow-up regarding her right hip MRI recently obtained. The overall concern was underlying mild arthritic changes middle-aged female with degenerative labral tear. WANG VALENZUELA MD [address] [place] [address], [phone], [facility] 08/02/2021 11:45:39 03/10/2022 text/html Meredith comes into [...] radiographs were obtained today. WANG VALENZUELA MD [address] [place] [address], [place], [phone], [facility] 03/18/2022 07:46:12 04/12/2022 text/html Meredith return s today for followup regarding her hips. She had MRI in the interim. Her pain mostly seems to be posterior SI joint. She reports focal point tenderness. She denies any neurologic deficits. She presents with a cane. Previously, we had concerns for significant osteoarthritic changes being present already. WANG VALENZUELA MD [address] [place] [address], [phone], [facility] 04/27/2022 15:11:21 01/17/2023 text/html Meredith return s [...] help her significantly as well. ROMY COLORADO [address] [place] [address], [place], [phone], [facility] [place] [facility] 01/18/2023 22:43:28 OBGyn Episode No OBEpisode recorded.
--- OUTSIDE RECORDS SUMMARY | 2024-08-27 13:46 | XMS_ITS | Encounter Summary ---
Author Organization [facility] Address [address] [place] [address] Care Team Providers Care Foundry Superintendant Name Role Phone Bernie Aquino RESIDENT SERVICES MANAGER Primary Care Provider [phone] Reason for Visit * Episode Based Medications (Routine) - Authorized Specialty Diagnoses / Procedures Referred By Javier cruz Referred To Contact Diagnoses Moderate persistent asthma, unspecified whether complicated Acquired primary hypogammaglobulinemia (CMS/HCC V24) Julio Araya MD [address] [place] [address] Phone: tel: fax: [facility] [address] [place] [phone] Phone: tel: fax: Referral ID Status Reason Start Date Expiration Date V isits Requested Visits Authorized [id number] Authorized 07/21/2024 07/21/2025 24 Encounter Details Date Type Department Care Team (Latest Contact Info) Description 08/27/2024 9:24 AM EDT Hospital Encounter [facility] [address] [place] [phone] Deandre Schroeder MD [address] [place] [phone] Moderate persistent asthma, unspecified whether complicated (Primary Dx) Social History Tobacco Use Types [...] Sign Reading Time Taken Comments Blood Pressure 129/89 08/27/2024 9:29 AM EDT Pulse 92 08/27/2024 9:29 AM EDT Temperature 36.6 ??C (97.8 ??F) 08/27/2024 9:29 AM ED T Respiratory Rate 18 08/27/2024 9:29 AM EDT Oxygen Saturation 99% 08/27/2024 9:29 AM EDT Inhaled Oxygen Concentration - - Weight - - Height - - Body Mass Index - - documented in this encounter Functional Status * Are you deaf or do you have serious difficulty hearing? Answer Date of Assessment Author No 05/20/2024 3:30 AM Denae Escobedo RN * Are you blind or do [...] documented in this encounter Progress Notes * Mahi De La Garza RN - 08/27/2024 9:30 AM EDT Patient arrives ambulatory for Xolair injections. Stable patient assessment. Patient expressing happiness over her personal life and overall feeling better health truong as well. Patient reports she has been on Xolair injections for years and tolerates them well without adverse reaction. Patient resting comfortably in chair with call boyd in reach. 1042-Xolair Injections administered subq in bilateral arms without incident. Patient completed 30 minute post-observation period without incident. Patient's next appointments scheduled and provided to her. Patient stable upon discharge. documented in this encounter Plan of Treatment Upcoming Encounters Date Type Department Care Team (Late st Contact Info) Description 08/27/2024 2:30 PM EDT Treatment [facility] Speech Therapy [address] [facility] [address] [place] [phone] Jessica Hull, BEHAVIOR INTERVENTIONIST 09/10/2024 9:10 AM EDT Office Visit Gastroenterology - [address] [phone] Leif Burciaga PA [address] [address] 09/16/2024 9:[address] [facility] [address] [phone] 09/24/2024 9:[address] [facility] [address] [address] 10/22/2024 9:30 AM EDT Appointment [facility] Center [address] [address] documented as of this encounter Goals Goal Patient Goal Type Associated Problems Recent Progress Patient-Stated? Author BEHAVIOR INTERVENTIONIST LTG General No Jessica Hull, BEHAVIOR INTERVENTIONIST Note: Pt will improve cognitive linguistic function to participate and communicate in iADLs mod I BEHAVIOR INTERVENTIONIST STGs General No Jessica Hull, BEHAVIOR INTERVENTIONIST Note: Pt will participate with development of [...] as of this encounter Visit Diagnoses Diagnosis Moderate persistent asthma, unspecified whether complicated- Primary documented in this encounter Administered Medications Inactive Administered Medications - up to 3 most recent administrations Medication Order MAR Action Action Date Dose Rate Site omalizumab (XOLAIR) injection 300 mg 300 mg, subcutaneous, Once, On Sun08/27/24 at 1000, For 1 dose, Due to viscosity, injection may take 5-10 seconds to administer. Doses >150 mg should be divided into more than one injection site.Indications:Moderate persistent asthma, unspecified whether complicated Given 08/27/2024 10:42 AM EDT 300 mg Other documented in this encounter Orders Medications Ordered That Alex ht Not Have Been Administered Count Last Ordered Date First Ordered Date omalizumab (XOLAIR) injection 300 mg 1 08/12 documented in this encounter Care Teams Foundry Superintendant Relationship Specialty Start Date End Date Bernie Aquino NP [address] [facility] [place] [address] PCP - General Family Medicine 10/05/21 documented as of this encounter
--- OUTSIDE RECORDS SUMMARY | 2024-08-27 13:46 | XMS_ITS | Clinical Summary ---
Author Organization [facility] Address [address] [place] [address] Care Team Providers Care Electrocardiograph Operator Name Role Phone Bernie Aquino Primary Care Provider [phone] Allergies Active Allergy Reactions Criticality Noted Date [...] migraine headaches ,). 8 tablet 2 08/06/19 25 Active clonazePAM (KlonoPIN) 0.1 mg/mL suspension Take 0.25 mg by mouth. 02/11/20 21 2024 Discontinue d(Therapy Completed or No Longer Needed) albuterol 2.5 mg/3 mL (0.083%) nebulizer solution daily as needed. 09/08/19 22 2024 Discontinue d(Therapy Completed or No Longer Needed) benztropine (COGENTIN) 0.5 mg tablet Take 0.5 mg by mouth. 12/17/19 22 2024 Discontinue d(Discontin ued by Patient) cariprazine (VRALYAR) [...] melatonin tablet Take 10 mg by mouth. 01/07/202024 Discontinue d(Therapy Completed or No Longer Needed) [...] Type Department Care Team Description 08/07/2024 Documentation [facility] Building [address] [place] [address] Marcell Shen CPhT Prior Authorization ([place] Appro[place] for Emgality 120mg/ml pen Injector, #06/10, through [employer] [PA# [id number]]. Effective 07/12/24 - 08/06/25. May fill with [facility], $4.80 copay/) 08/07/2024 Documentation [facility] [address] [place] [address] Marcell Shen CPhT Prior Authorization ([place] for Nurtec ODT 75mg, #, through [employer] [PA# [id number]]. Effective 07/12/24 - 08/06/25. May fill with [facility], $4.80 copay/) 08/06/2024 Telephone [facility] [address] [place] [id number] Rajesh Black NP 08/05/2024 1:00 PM EDT Office Visit [facility] [address] [place] [address] Banking Assistant: Rajesh Echevarria NP Intractable migraine with aura without status migrainosus (Primary Dx); Chronic migraine without aura without status migrainosus, not intractable 07/29/2024 Orders Only [facility] [address] [place] [address] Banking Assistant: Caitlyn Sanchez MD 07/28/2024 Telephone [facility] [address] [place] [address] Banking Assistant: Sari Workman Telephone Intake, Staff PAC Patient Request Call Back; PAC Appt Request - Established 06/11/2024 Refill [facility] [address] [place] [address] Banking Assistant: Gwen Pitts MA 06/09/2024 Refill [facility] [address] [place] [address] Banking Assistant: Ginger Ness 06/09/2024 Telephone [facility] [address] [place] [address] Banking Assistant: Stefany Ramirez LPN 06/04/2024 Telephone [facility] [address] [place] [address] Banking Assistant: Stefany Ramirez LPN from Last 3 Months Family History Medical [...] Description 11/18/2024 10:30 AM EDT Office Visit [facility] [address] [place] [address] Banking Assistant: Adrienne Gutiérrez MD [address] [place] [phone] Health Maintenance Due Date Last Done Comments Cervical Cancer Screening 1975 Cologuard 1975 FOBT / Fit Test 1975 HIV Screening 1975 HPV and Pap Smear 1975 Hemoglobin A1C 1975 Pap Smear 1975 Sigmoidoscopy 1975 Medicare AWV 10/27/1976 COVID-19 Vaccine (#1) 10/27/1980 Hepatitis B Vaccines (1 of 3 - 19+ 3-dose series) 10/27/1994 Pneumococcal Vaccine: Pediat jl (0-5 Years) and At-Risk Patients (6-50 Years) (3 of 3 - PPSV23, PCV20 or PCV21) 12/19/2014 05/13/2014, 12/19/2009 Ophthalmology Exam 11/10/2022 11/10/2021, 0 07/01/2021, 07/01/2021, Additional history exists Alcohol/Substance Use Screening 05/14/2024 Depression Screening and Follow-Up 05/14/2024 Social Drivers of Health Hayley ual Screening 05/14/2024 Urine Microalbumin 12/31/2024 01/01/2024 Influenza Vaccine (Season Ended) 2025 02/19/2019, 02/13/2018, 02/08/2017, Additional history exists Basic Metabolic Panel 07/13/2025 07/13/2024 , 06/04/2024, 05/19/2024, Additional history exists Mammogram 07/07/2026 07/07/2024, 06/13/2024 DTaP,Tdap,and Td Vaccines (4 - Td or Tdap) 07/05/2032 07/05/2022, 09/19/2017, 12/08/2007 Colon Cancer Screening 06/27/2034 Colonoscopy 06/27/2034 06/27/2024 RSV Vaccine (60+ years old a nd patients) (1 - 1-dose 75+ series) 10/27/2050 Hepatitis C Screening Completed 05/29/2024 Procedures * Due to [place] [employer] law, this organization might not be sharing [...] Health Maintenance Results * Due to [place] [employer] law, this organization might not be sharing negative HIV tests. * IMAGING - SCANNED (07/29/2024 8:58 AM EDT) Anatomical Region Laterality Modality Other us Unknown Provider MD SCANNED PROCEDURES Final Res ult * (ABNORMAL) Comprehensive Metabolic Panel (04/20/2023 9:56 AM EST) NA 141 135 - 145 mmol/L 04/20/2023 11:01 AM EST [facility] K 3.6 3.5 - 5.3 mmol/L 04/20/2023 11:01 AM EST [facility] Cl 107 97 - 110 mmol/L 04/20/2023 11:01 AM EST [facility] CO2 21(L) 24 - 32 mmol/L 04/20/2023 11:01 AM [facility] Anion Gap 13 5 - 15 04/20/2023 11:01 AM [facility] Glucose 139(H) 70 - 99 mg/dL 04/20/2023 11:01 AM [facility] Creatinine 0.89 0.50 - 1.20 mg/dL 04/20/2023 11:01 AM [facility] Calcium 9.1 8.7 - 10.7 mg/dL 04/20/2023 11:01 AM [facility] Total Protein 7.1 6.0 - 8.0 g/dL 04/20/2023 11:01 AM [facility] Albumin 4.4 3.5 - 4.8 g/dL 04/20/2023 11:01 AM [facility] Bilirubin, Total 0.2(L) 0.3 - 1.2 mg/dL 04/20/2023 11:01 AM [facility] Alkaline Phosphatase 115 30 - 115 U/L 04/20/2023 11:01 AM [facility] AST 14 10 - 40 U/L 04/20/2023 11:01 AM [facility] ALT 19 10 - 40 U/L 04/20/2023 11:01 AM [facility] BUN 19 7 - 23 mg/dL 04/20/2023 11:01 AM [facility] eGFR 81 >=60 mL/min/1. 73m2 04/20/2023 11:01 AM [facility] Comment:The estimated glomer ular [...] MD LAB BLOOD ORDERABLES Final R esult [facility] [address] [place] [address], * DIABETES EYE EXAM (11/10/2021) 11/10/2021 us Onbase Scan [facility] Final Resu lt from Last 3 Months or Most Recently Relevant to Health Maintenance Insurance MEDICARE [facility] Advance Directives Documents on File Type Date Recorded Patient Packerhead Machine Operator Expl reg Health Care Proxy 02/14/2017 2:27 PM Care Teams Electrocardiograph Operator Relationship Specialty Start Date End Date Bernie Aquino [address] [place] [id number] PCP - General 08/22/21
--- OUTSIDE RECORDS SUMMARY | 2024-08-27 13:46 | XMS_ITS | Encounter Summary ---
Author Organization [facility] Address [address] [place] [address] Care Team Providers Care Numerical Control Operator Name Role Phone MilesTristenca Primary Care Provider [phone] Encounter Details Date Type Department Care Team (Late st Contact Info) Description 11/21/2021 Telephone [facility] [address] [place] [address] Telephone Intake, Staff Social History Tobacco Use [...] to book it. Please call patient at [phone]. documented in this encounter Plan of Treatment Upcoming Encounters Date Type Department Care Team (Late Contact Info) Description 11/18/2024 10:30 AM EDT Office Visit [facility] [address] [place] [address] Relay Shop Tester: Adrienne Gutiérrez MD [address] [place] [address] [phone] documented as of this encounter Visit Diagnoses Not on filedocumented in this encounter Care Teams Numerical Control Operator Relationship Specialty Start Date End Date Bernie Aquino [address] [place] [phone] PCP - General 08/22/21 documented as of this encounter
--- OUTSIDE RECORDS SUMMARY | 2024-08-27 13:46 | XMS_ITS | Encounter Summary ---
Author Organization [facility] Address [address] [place] [address] Care Team Providers Care Bowl Turner Name Role Phone MilesTristenca Primary Care Provider [phone] Reason for Visit * Reason Onset Date Comments migraines 03/29/2021 Encounter Details Date Type Department Care Team (Late st Contact Info) Description 03/29/2021 Telephone [facility] Central Scheduling Department [address] [place] [address] Telephone Intake, Staff migraines Social History Tobacco [...] 11/18/2024 10:30 AM EDT Office Visit [facility] [address] [place] [phone] Major Assembly Inspector: Adrienne Gutiérrez MD [address] [place] [address] documented as of this encounter Visit Diagnoses Not on filedocumented in this encounter Care Teams Bowl Turner Relationship Specialty Start Date End Date Bernie Aquino [address] [place] [phone] PCP - General 08/22/21 documented as of this encounter
--- OUTSIDE RECORDS SUMMARY | 2024-08-27 13:47 | XMS_ITS | Encounter Summary ---
Author Organization [facility] Address [address] [place] [address] Phone Care Team Providers Care Pet Care Assistant Name Role Phone Unavailable Primary Care Provider Unavailabl e Encounter Details Date Type Department Care Team (Late st Contact Info) Description 01/25/2022 Telephone [facility] [address] [place] [address] Neto Cunningham MD Social History [...]
--- OUTSIDE RECORDS SUMMARY | 2024-08-27 13:47 | XMS_ITS | Encounter Summary ---
Author Organization [facility] Address [address] [place] [address] Care Team Providers Care Healthcare Educator Name Role Phone MilesTristenca Primary Care Provider [phone] Reason for Visit * Reason Onset Date Comments PAC Patient Request Call Back 07/28/2024 PAC Appt Request - Established 07/28/2024 Encounter Details Date Type Department Care Team (Late st Contact Info) Description 07/28/2024 Telephone [facility] [address] [place] [address] Advisor Advocate Angel Co Founder: Sari Workman Telephone Intake, Staff PAC Patient Request Call Back; PAC Appt Request - Established Social History Tobacco Use Types Packs/Day Years [...] encounter Miscellaneous Notes * Telephone Encounter - Bettye Koroma - 08/04/2024 8:53 AM EDT Pt calling stating that she was just discharged from hospital and was advised by hospital to get into be seen by neurologist as soon as possible.State sthat she has CT and blood work that can be sent over as well. Also states that she needs a PA on emgality rx. Would like a call back to advise on this as soon as possible. * Telephone Encounter - Stefany Miller LPN - 07/31/2024 1:55 PM EDT Patient is on her way to ER * Telephone Encounter - Stefany Miller LPN - 07/31/2024 1:43 PM EDT Spoke with patient she is going to the ER now. . I will send a message to schedule a sooner appointment * Telephone Encounter - Bernie Lopez LPN - 07/31/2024 1:29 PM EDT Attempted to call patient, no answer and VM if full. * Telephone Encounter - JIM Villatoro - 07/30/2024 4:03 PM EDT Pt calling to follow up on previous mesgs I have received media and report has been scanned in Please advise * Telephone Encounter - Stefany Miller LPN - 07/28/2024 3:59 PM EDT I sent a request for [facility] to send the CT Scan reports * Telephone Encounter - Theresa Mcknight - 07/28/2024 8:16 AM EDT Pt calling due to having a Ct Scan in [place] and saying that it is abnormal and she has a lot of concerns. Her appt with Dr Bacon is in November. Please reach out to the pt. documented in this encounter Plan of Treatment Upcoming Encounters Date Type Department Care Team (Late st Contact Info) Description 11/18/2024 10:30 AM EDT Office Visit [facility] [address] [place] [address] Advisor Advocate Angel Co Founder: Adrienne Gutiérrez MD [address] [place] [address] documented as of this encounter Visit Diagnoses Not on filedocumented in this encounter Care Teams Healthcare Educator Relationship Specialty Start Date End Date Bernie Aquino [address] [place] [address] PCP - General 08/22/21 documented as of this encounter
--- OUTSIDE RECORDS SUMMARY | 2024-08-27 13:47 | XMS_ITS | Encounter Summary ---
Author Organization [facility] Address [address] [place] [address] Phone Care Team Providers Care Director Of Blood Name Role Phone Unavailable Primary Care Provider Unavailabl e Encounter Details Date Type Department Care Team (Late st Contact Info) Description 01/02/2022 Telephone [facility] [address] [place] [address] Neto Cunningham MD Social History [...] on this issue. Has appt 01/10 in [place] office * Telephone Encounter - Alta Young [...] er visits. Please advise Thank you CB# [phone] documented in this encounter Plan of Treatment Not on file documented as of this encounter Visit Diagnoses Not on filedocumented in this encounter
--- OUTSIDE RECORDS SUMMARY | 2024-08-27 13:47 | XMS_ITS | Clinical Summary ---
Author Organization [facility] Address [address] [place] [address] Care Team Providers Care Paper Inspector Name Role Phone Bernie Aquino ROAD ADVISOR Primary Care Provider [phone] Allergies Active Allergy Reactions Criticality Noted Date [...] Active docusate sodium (COLACE) 100 mg capsule Active EPINEPHrine (EPIPEN) 0.3 mg/0.3 mL injection [...] 270 each 3 07/11/19 25 026 Active Ozempic 0.25 mg or 0.5 mg (2 mg/3 mL) injection pen Inject 0.5 mg under the skin. 08/21/19 25 025 Active Active Problems Problem Noted Date Diagnosed Date Type 2 diabetes mellitus wit hout complication ([facility] V24, [facility] V28) 06/27/2024 Asthma 06/27/2024 Hypothyroidism 06/27/2024 Chronic renal impairment, st age 3 (moderate) ([facility] V24, [facility] V28) 06/27/2024 Elevated alkaline phosphatase level 03/21/2024 Overview (07/11/2024): [...] PM EST): Second opinion for liver bx [facility] 08/18/24 Repeat lfts today, alk phos has been trending down (157 06/13/24) Assessment & Plan (06/13/2024 5:01 PM EST): Orders: Hepatic function panel; Future CVID (common variable immuno deficiency) ([facility] V24, [facility] V28) 03/10/2024 Encounters Date Type Department Care Team Description 08/27/2024 9:24 AM EDT Hospital Encounter [facility] [address] [facility] 2nd [place] [address] Deandre Schroeder MD Moderate persistent asthma, unspecified whether complicated (Primary Dx) 08/26/2024 8:19 AM EDT Hospital Encounter [address] [phone] Deandre Schroeder MD CVID (common variable immunodeficiency) ([facility] V24, [facility] V28) (Primary Dx) 08/19/2024 Telephone Gastroenterology - [address] [phone] Leif Burciaga PA 08/11/2024 8:30 AM EDT Treatment [facility] Speech Therapy [address] [place] [phone] Jessica Hull, BENZENE STILL UTILITY OPERATOR 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); Cognitive communication disorder 07/31/2024 8:07 AM EDT - 07/31/2024 11:59 PM EDT Hospital Encounter [address] [address] Deandre Schroeder MD CVID (common variable immunodeficiency) ([facility] V24, [facility] V28) (Primary Dx) Discharge Disposition: Home or Self Care 07/30/2024 2:30 PM EDT Evaluation [facility] Speech Therapy [address] [place] [phone] Jessica Hull, BENZENE STILL UTILITY OPERATOR Cognitive communication disorder (Primary Dx); 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 Emergency [address] [place] [phone] Urinary tract infection without hematuria, site unspecified (Primary Dx); Cyst of left ovary Discharge Disposition: Home or Self Care 07/11/2024 10:40 AM EST Office Visit Gastroenterology - [address] [address] Leif Burciaga PA Elevated alkaline phosphatase level (Primary Dx); Bloating; Tenesmus; Nausea and vomiting, unspecified vomiting type 07/10/2024 Telephone Gastroenterology - [address] [place] [phone] Merly Lyons [place] 07/07/2024 12:05 PM EST - 07/07/2024 11:59 PM EST Hospital Encounter [facility] Xray [address] [place] [address] Constipation, unspecified constipation type Discharge Disposition: Home or Self Care 07/01/2024 8:57 AM EST - 07/01/2024 11:59 PM EST Hospital Encounter [facility] [address] [phone] Deandre Schroeder MD CVID (common variable immunodeficiency) ([facility] V24, [facility] V28) (Primary Dx) Discharge Disposition: Home or Self Care 06/30/2024 Telephone Gastroenterology - [address] [phone] Manda Seals MD 06/27/2024 7:41 AM EST Anesthesia Event [facility] Endoscopy [address] [place] [address] Silvia Brooks MD Couture, Alison, CRNA 06/27/2024 6:49 AM EST - 06/27/2024 11:59 PM EST Hospital Encounter [facility] Endoscopy [address] [place] [address] Manda Seals MD Couture, Alison, CRNA Kriz, Petra, MD Anemia; Elevated fecal calprotectin Discharge Disposition: Home or Self Care 06/24/2024 Telephone Gastroenterology - [address] [phone] Merly Lyons [place] 06/20/2024 Telephone Gastroenterology - [address] [place] [address] Leif Burciaga PA 06/20/2024 Telephone Gastroenterology - [address] [place] [address] Manda Seals MD 06/19/2024 Telephone Gastroenterology - [address] [place] [phone] Manda Seals MD 06/18/2024 Telephone Gastroenterology - [address] [place] [phone] Leif Burciaga PA 06/17/2024 Telephone Gastroenterology - [address] [facility] [address] [place] [phone] Merly Lyons MA 06/13/2024 3:24 PM EST - 06/13/2024 11:59 PM EST Hospital Encounter [facility] Xray [address] [place] [address] Nausea; Generalized abdominal pain; Change in bowel habits Discharge Disposition: Home or Self Care 06/13/2024 2:20 PM EST Office Visit Gastroenterology - [address] [facility] [address] [place] [phone] Leif Burciaga PA Generalized abdominal pain (Primary Dx); Rectal bleeding; Nausea; Iron deficiency; Elevated alkaline phosphatase level; Change in bowel habits 06/11/2024 8:10 AM EST - 06/11/2024 11:59 PM EST Hospital Encounter [facility] [address] 2[address] [place] [address] Deandre Schroeder MD CVID (common variable immunodeficiency) (CMS/HCC V24, [facility] V28) (Primary Dx) Discharge Disposition: Home or Self Care 06/09/2024 Telephone Gastroenterology - [address] [facility] [address] [place] [phone] Manda Seals MD 06/05/2024 7:41 AM EST - 06/05/2024 9:[address] 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) (CMS/HCC V24, CMS/HCC V28) Hypothyroid Asthma Hypoparathyroidism (CMS/HCC V24) Familial Mediterranean fever (CMS/HCC V24, CMS/H CC V28) Chronic kidney disease CVS disease Bipolar 1 disorder (CMS/HCC V24, CMS/HCC V28) Migraines WALTERS (nonalcoholic steatohepatitis) Social History Tobacco [...] oz) 08/26/2024 8:28 A M EDT Height 162.6 cm (5' 4 ) 07/13/2024 2:54 PM EST Body Mass Index 28.87 07/13/2024 2:54 PM EST Plan of Treatment Upcoming Encounters Date Type Department Care Team (Late st Contact Info) Description 08/27/2024 2:30 PM EDT Treatment [facility] Speech Therapy [address] [facility] [address] [place] [phone] Jessica Hull, BENZENE STILL UTILITY OPERATOR 09/10/2024 9:10 AM EDT Office Visit Gastroenterology - [address] [facility] [address] [place] [phone] Leif Burciaga PA [address] [address] 09/16/2024 9:00 AM EDT Appointment [facility] [address] [phone] 09/24/2024 9:[address] [facility] [address] [phone] 10/22/2024 9:30 AM EDT Appointment [facility] [address] [phone] Health Maintenance Due Date Last Done Comments [...] 07/22/2021 Social Influencers of Health Screening 07/22/2021 Diabetes: Annual Urine Albumin-Creatinine Ratio (uACR) 03/15/2024 Influenza Vaccine (Season Ended) 2025 02/19/2019, 02/13/2018, 02/08/2017, Additional history exists Diabetes: Blood Sugar Control Test (HGBA1C) 02/17/2025 08/18/2024 Diabetes: Annual GFR (Glomerular Filtration Rate) 08/18/2025 08/18/2024, 07/13/2024, 06/04/2024, Additional history exists DTaP,Tdap,and Td Vaccines (4 - Td or Tdap) 07/05/2032 07/05/2022, 09/19/2017, 12/08/2007 Colorectal Cancer Screening: Colonoscopy 06/27/2034 06/27/2024, 08/30/2017 Hepatitis C Screening Completed 08/18/2024, 025 HIB Vaccines Aged Out No longer eligi [...] age to complete this topic Meningococcal B Vaccine Aged Out No l onger eligible based on patient's age to complete this topic RSV Immunization Patients Under 20 months Aged Out No longer eligible based on patient's age to complete this topic Varicella Vaccines Aged Out No longer eligible based on patient's age to complete this topic Goals Goal Patient Goal Type Associated Problems Recent Progress Patient-Stated? Author BENZENE STILL UTILITY OPERATOR LTG General No Jessica Hull, BENZENE STILL UTILITY OPERATOR Note: Pt will improve cognitive linguistic function to participate and communicate in iADLs mod I BENZENE STILL UTILITY OPERATOR STGs General No Jessica Hull, BENZENE STILL UTILITY OPERATOR Note: Pt will participate with development of [...] after 10m using compensatory strategies min assist Medical Devices Implanted Type Area Shear Assembler Device Identifier Shelf Expiration Date Model / Serial / Lot Sponge Surgifoam Gel 12 X 7mm - [id number] Implanted:Qty: 1 on 04/09/2024 by Daniele Reeder MD at [facility] Hemostasis N/A: Abdomen J [employer] [id number] 1971 / / Procedures Procedure Name Priority [...] AND DIFFERENTIAL STAT 06/04/2024 9:30 PM EST from Last 3 Months Results * CT [...] Jones MD on 07/13/2024 19:51:[address] PROCEDURES Final Result * POC , urine manually resulted (07/13/2024 6:50 PM EST) HCG, Ur POC Negative Negative POC hCG Int QC Pass? Yes Yes EXPIRATION DATE POC LOT NUMBER POC [id number] Urine Urine specimen obtained by clean catch procedure / Unknown 07/13/2024 6:50 PM EST Florin STANTON POINT OF CARE TEST ENTER /EDIT ORDERABLES Final Result * (ABNORMAL) Urinalysis with reflex microscopic and culture (07/13/2024 3:07 PM EST) [facility] [place] Urine 1.011 1.003 - 1.030 LAB URINALYSIS - AUTOMATED METHOD 07/13/2024 3:58 PM [facility] pH, Urine 6.5 5.0 - 8.0 pH LAB URINALYSIS - AUTOMATED METHOD 07/13/2024 3:58 PM [facility] Leukocytes, Urine Moderate(A) Negative LAB URINALYSIS - AUTOMATED METHOD 07/13/2024 3:58 PM [facility] Nitrite, Urine Negative Negative LAB URINALYSIS - AUTOMATED METHOD 07/13/2024 3:58 PM [facility] Protein, Urine Negative <=Trace mg/dL LAB URINALYSIS - AUTOMATED METHOD 07/13/2024 3:58 PM [facility] Glucose, Urine Negative Negative mg/dL LAB URINALYSIS - AUTOMATED METHOD 07/13/2024 3:58 PM [facility] Ketones, Urine Negative Negative mg/dL LAB URINALYSIS - AUTOMATED METHOD 07/13/2024 3:58 PM [facility] Urobilinogen , Urine 0.2 0.2 - 1.0 mg/dL LAB URINALYSIS - AUTOMATED METHOD 07/13/2024 3:58 PM [facility] Bilirubin, Urine Negative Negative LAB URINALYSIS - AUTOMATED METHOD 07/13/2024 3:58 PM [facility] Blood, Urine Small(A) Negative LAB URINALYSIS - AUTOMATED METHOD 07/13/2024 3:58 PM [facility] RBC, Urine 2.0 0 - 4 /HPF LAB URINALYSIS - AUTOMATED METHOD 07/13/2024 3:58 PM [facility] WBC, Urine 20.2(H) 0 - 4 /HPF LAB URINALYSIS - AUTOMATED METHOD 07/13/2024 3:58 PM [facility] Squamous Epithelial, Urine 4 0 - 60 /LPF LAB URINALYSIS - AUTOMATED METHOD 07/13/2024 3:58 PM [facility] Bacteria, Urine Negative Negative /HPF LAB URINALYSIS - AUTOMATED METHOD 07/13/2024 3:58 PM [facility] Hyaline Casts, Urine 0.0 0 - 3 /LPF LAB URINALYSIS - AUTOMATED METHOD 07/13/2024 3:58 PM [facility] Urine Urine specimen obtained by clean catch procedure / Unknown Non-blood Collection / Unknown 07/13/2024 3:07 PM EST 07/13/2024 3:50 PM EST Mitesh Boyd MD LAB URINE ORDERABLES Jie l Result [facility] [address] [place] [address], * Mchugh urine culture tube (07/13/2024 3:07 PM EST) Extra Tube Hold for add-ons. 07/13/2024 5:01 PM [facility] Comment:Auto resulted. Urine Urine specimen obtained by clean catch procedure / Unknown Non-blood Collection / Unknown 07/13/2024 3:07 PM EST 07/13/2024 3:50 PM EST us Mitesh Boyd MD LAB URINE ORDERABLES Jie ren Result [facility] [address] [place] [address], [place] [phone] * (ABNORMAL) CBC auto differential (07/13/2024 3:07 PM EST) Only the most recent of2 resultswithin the time period is included. WBC 8.6 4.8 - 10.8 K/mcL LAB HEMETOLOGY METHOD 07/13/2024 3:59 PM [facility] RBC 5.90(H) 3.80 - 4.80 M/mcL LAB HEMETOLOGY METHOD 07/13/2024 3:59 PM [facility] Hemoglobin 11.7 11.5 - 16.0 g/dL LAB HEMETOLOGY METHOD 07/13/2024 3:59 PM [facility] Hematocrit 41.9 35.0 - 47.0 % LAB HEMETOLOGY METHOD 07/13/2024 3:59 PM [facility] MCV 70.9(L) 79.0 - 98.0 FL LAB HEMETOLOGY METHOD 07/13/2024 3:59 PM [facility] MCH 19.8(L) 27.0 - 32.0 pcg LAB HEMETOLOGY METHOD 07/13/2024 3:59 PM [facility] MCHC 27.9(L) 32.0 - 37.0 g/dL LAB HEMETOLOGY METHOD 07/13/2024 3:59 PM [facility] RDW 20.7(H) 11.0 - 15.0 % LAB HEMETOLOGY METHOD 07/13/2024 3:59 PM [facility] Platelets 398 130 - 400 K/mcL LAB HEMETOLOGY METHOD 07/13/2024 3:59 PM [facility] MPV 10.2 7.0 - 11.0 FL LAB HEMETOLOGY METHOD 07/13/2024 3:59 PM [facility] NRBC 0.0 <1.0 % LAB HEMETOLOGY METHOD 07/13/2024 3:59 PM [facility] NRBC Absolute 0.00 <0.10 K/mcL LAB HEMETOLOGY METHOD 07/13/2024 3:59 PM [facility] Neutrophils Relative 61.9 % LAB HEMETOLOGY METHOD 07/13/2024 3:59 PM [facility] Lymphocytes Relative 24.6 % LAB HEMETOLOGY METHOD 07/13/2024 3:59 PM [facility] Monocytes Relative 8.9 % LAB HEMETOLOGY METHOD 07/13/2024 3:59 PM [facility] Eosinophils Relative 2.8 % LAB HEMETOLOGY METHOD 07/13/2024 3:59 PM [facility] Basophils Relative 1.4 % LAB HEMETOLOGY METHOD 07/13/2024 3:59 PM [facility] Immature Granulocytes Relative 0.4 % LAB HEMETOLOGY METHOD 07/13/2024 3:59 PM [facility] Neutrophils Absolute 5.30 1.50 - 7.00 K/mcL LAB HEMETOLOGY METHOD 07/13/2024 3:59 PM [facility] Lymphocytes Absolute 2.10 1.00 - 5.00 K/mcL LAB HEMETOLOGY METHOD 07/13/2024 3:59 PM [facility] Monocytes Absolute 0.76 0.20 - 1.00 K/mcL LAB HEMETOLOGY METHOD 07/13/2024 3:59 PM [facility] Eosinophils Absolute 0.24 0.00 - 0.50 K/mcL LAB HEMETOLOGY METHOD 07/13/2024 3:59 PM [facility] Basophils Absolute 0.12 0.00 - 0.20 K/mcL LAB HEMETOLOGY METHOD 07/13/2024 3:59 PM EST [facility] Immature Granulocytes Absolute 0.03 0.00 - 0.03 K/[facility] LAB HEMETOLOGY METHOD 07/13/2024 3:59 PM EST [facility] Blood Venous blood specimen / Unknown Venipuncture / Unknown 07/13/2024 3:07 PM EST 07/13/2024 3:50 PM EST Mitesh Boyd MD LAB BLOOD ORDERABLES Jie l Result [facility] [address] [place] [address], [place] [phone] * Culture urine (07/13/2024 3:07 PM EST) Culture, Urine No growth 07/14/2024 12:02 PM [facility] Urine Urine specimen obtained by clean catch procedure / Unknown Non-blood Collection / Unknown 07/13/2024 3:07 PM EST 07/13/2024 3:58 PM EST Mitesh Boyd MD LAB MICROBIOLOGY - GENERA L ORDERABLES Final Result [facility] [address] [place] [address], [place] [phone] * Lipase (07/13/2024 3:07 PM EST) Lipase 70 13 - 75 unit/L LAB CHEMISTRY METHOD 07/13/2024 4:26 PM [facility] Blood Venous blood specimen / Unknown Venipuncture / Unknown 07/13/2024 3:07 PM EST 07/13/2024 3:50 PM EST Mitesh Boyd MD LAB BLOOD ORDERABLES Jie l Result [facility] [address] [place] [address], * (ABNORMAL) Comprehensive metabolic panel (07/13/2024 3:07 PM EST) Sodium 140 133 - 145 mmol/L LAB CHEMISTRY METHOD 07/13/2024 4:26 PM EST [facility] Potassium 3.7 3.5 - 5.5 mmol/L LAB CHEMISTRY METHOD 07/13/2024 4:26 PM [facility] Chloride 110 96 - 110 mmol/L LAB CHEMISTRY METHOD 07/13/2024 4:26 PM [facility] CO2 21 21 - 32 mmol/L LAB CHEMISTRY METHOD 07/13/2024 4:26 PM [facility] Anion Gap 9 3 - 11 LAB CHEMISTRY METHOD 07/13/2024 4:26 PM [facility] Glucose 171(H) 70 - 100 mg/dL LAB CHEMISTRY METHOD 07/13/2024 4:26 PM [facility] BUN 13 5 - 25 mg/dL LAB CHEMISTRY METHOD 07/13/2024 4:26 PM [facility] Creatinine 1.08 0.50 - 1.10 mg/dL LAB CHEMISTRY METHOD 07/13/2024 4:26 PM [facility] eGFR 63 >=60 mL/min/1. 73m2 LAB CHEMISTRY METHOD 07/13/2024 4:26 PM [facility] Comment:Calculation based on the??Chronic Kidney Disease Epidemiology Collaboration (CKD-EPI) equation refit??without adjustment for race. BUN/Creatinine Ratio 12.0 LAB CHEMISTRY METHOD 07/13/2024 4:26 PM [facility] Calcium 8.9 8.5 - 10.5 mg/dL LAB CHEMISTRY METHOD 07/13/2024 4:26 PM [facility] AST (SGOT) 33 10 - 42 unit/L LAB CHEMISTRY METHOD 07/13/2024 4:26 PM [facility] ALT (SGPT) 38 10 - 60 unit/L LAB CHEMISTRY METHOD 07/13/2024 4:26 PM [facility] Alkaline Phosphatase 158(H) 42 - 121 unit/L LAB CHEMISTRY METHOD 07/13/2024 4:26 PM [facility] Total Protein 7.3 6.0 - 8.0 g/dL LAB CHEMISTRY METHOD 07/13/2024 4:26 PM [facility] Albumin 3.7 3.2 - 5.0 g/dL LAB CHEMISTRY METHOD 07/13/2024 4:26 PM [facility] Total Bilirubin 0.3 0.0 - 1.4 mg/dL LAB CHEMISTRY METHOD 07/13/2024 4:26 PM [facility] Blood Venous blood specimen / Unknown Venipuncture / Unknown 07/13/2024 3:07 PM EST 07/13/2024 3:50 PM EST Mitesh Boyd MD LAB BLOOD ORDERABLES Jie l Result [facility] [address] [place] [address], [place] [phone] * (ABNORMAL) Hepatic function panel (07/11/2024 11:19 AM EST) Only the most recent of2 resultswithin the time period is included. Total Protein 7.4 6.0 - 8.0 g/dL LAB CHEMISTRY METHOD 07/11/2024 4:30 PM [facility] Albumin 3.8 3.2 - 5.0 g/dL LAB CHEMISTRY METHOD 07/11/2024 4:30 PM [facility] Total Bilirubin 0.2 0.0 - 1.4 mg/dL LAB CHEMISTRY METHOD 07/11/2024 4:30 PM EST [facility] Bilirubin, Direct <0.1 0.0 - 0.3 mg/dL LAB CHEMISTRY METHOD 07/11/2024 4:30 PM [facility] Bilirubin, Indirect LAB CHEMISTRY METHOD 07/11/2024 4:30 PM EST [facility] Comment:Unable to calculate Indirect Bilirubin. ALT (SGPT) 35 10 - 60 unit/L LAB CHEMISTRY METHOD 07/11/2024 4:30 PM [facility] AST (SGOT) 24 10 - 42 unit/L LAB CHEMISTRY METHOD 07/11/2024 4:30 PM [facility] Alkaline Phosphatase 142(H) 42 - 121 unit/L LAB CHEMISTRY METHOD 07/11/2024 4:30 PM [facility] Blood Venous blood specimen / Unknown Venipuncture / Unknown 07/11/2024 11:19 AM EST 07/11/2024 12:46 PM EST us Leif STANTON LAB BLOOD ORDERABLES Final R esult [facility] [address] [place] [address], [place] [phone] * XR Abdomen 1 View (07/07/2024 12:22 [...] Signed Date: 07/10/2024 11:31 ET Workstation ID: [id number] Transcribed By: Self Edit Transcribed Date: 07/10/2024 [...] Signed Date: 07/10/2024 11:31 ET Workstation ID: [id number] Transcribed By: Self Edit Transcribed Date: 07/10/2024 11:27 ET us Manda Seals MD IMG XR PROCEDURES Final Result * COLONOSCOPY Anesthesia - MAC; [facility] ENDOSCOPY (06/27/2024 8:07 AM EST) Anatomical Region Laterality Modality Endoscopy 06/27/2024 7:44 AM EST Impressions 06/27/2024 8:09 AM EST - The examined portion of the ileum was normal. ? - Normal mucosa in the entire examined colon. Biopsied. ? - Internal hemorrhoids. Recommendation: ?- Await pathology results. ? - Repeat colonoscopy in 10 years for screening ? purposes. Narrative 06/27/2024 8:[address] [facility] Patient Name: Meredith Garcia Procedure Date: [...] Procedure Code(s): ? --- Professional --- ? 17398, Colonoscopy, flexible; with biopsy, single or ? multiple Diagnosis Code(s): ? --- Professional --- ? R19.7, Diarrhea, unspecified CPT copyright 2020 [employer]. All rights reserved. The codes documented in this report are preliminary and upon waistline joiner review may be revised to meet current compliance requirements. Manda Seals MD 06/27/2024 8:09:30 AM This report has been signed electronically.Manda Seals MD Number of Addenda: 0 Note Initiated On: 06/27/2024 7:44 AM Scope In: Scope Out: ? Endoscopy Department at [facility] - [address] [place] [address], ? [place] [address] Procedure Note Manda Seals MD - 06/27/2024 [facility] Patient Name: Meredith Garcia Procedure Date: [...] not prolapse). Procedure Code(s): --- Professional --- 35586, Colonoscopy, flexible; with biopsy, singleor multiple Diagnosis Code(s): --- Professional --- R19.7, Diarrhea, unspecified CPT copyright 2020 [employer]. All rights reserved. The codes documented in this report are preliminary and upon waistline joiner reviewmay be revised to meet current compliance requirements. Manda Seals MD 06/27/2024 8:09:30 AM This report has been signed electronically.Manda Seals MD Number of Addenda: 0 Note Initiated On: 06/27/2024 7:44 AM Scope In: Scope Out: Endoscopy Department at [facility] - [address] [place] [phone] IMPRESSION: - The examined portion of the [...] No colitis identified. 06/30/2024 11:[address] [facility]) [facility] Gross Description A. Colon, random [...] multiple levels. dvb/DG 06/30/2024 11:31 AM EST [facility] Disclaimer Unless otherwise specified, all tissue is 10% NB formalin fixed and paraffin embedded. 06/30/2024 11:31 AM EST [facility] Tissue Colon structure / Unknown 06/27/2024 7:57 AM EST 06/27/2024 9:36 AM EST Manda Seals MD LAB PATHOLOGY ORDERABLES Final Result [facility]) [facility] [address] [place] [address], * External Endoscopy (06/16/2024 1:13 PM EST) Anatomical Region Laterality Modality Endoscopy Historical Provider GI~PROCEDURE ORDERABLES F inal Result * (ABNORMAL) Calprotectin, stool (06/14/2024 7:51 AM EST) Calprotectin, Fecal 516.0(H) <50 mcg/g 06/18/2024 12:51 PM EST [facility] Comment: <50 mcg/g ?Normal 50 - 120 mcg/g ?? Borderline >120 mcg/g ? Abnormal Borderline results suggest repeat testing in 4 to 6 weeks. Test performed at [facility], [address] [address] [place], [place] ??[address] ? [phone] Ritika Nunes MD, PhD - Docketing Specialist Stool Rectum structure / Unknown Non-blood Collection / Unknown 06/14/2024 7:51 AM EST 06/14/2024 1:02 PM EST us Manda Seals MD LAB BODY FLUIDS AND STOOLS ORD ERABLES Final Result [address] [place], [place] [id number] * CT Head wo Contrast (06/05/2024 8:53 AM EST) Anatomical Region Laterality Modality Head and Neck Computed Tomogra phy 06/05/2024 9:29 AM EST Impressions 06/05/2024 9:31 AM EST No acute intracranial findings. -------- FINAL REPORT -------- Dictated By: Raheem Dias Dictated Date: 06/05/2024 09:29 ET Assigned Physician: Raheem Dias Reviewed and Electronically Signed By: Raheem Dias Signed Date: 06/05/2024 09:31 ET Workstation ID: [id number] Transcribed By: Self Edit Transcribed Date: 06/05/2024 [...] Signed Date: 06/05/2024 09:31 ET Workstation ID: [id number] Transcribed By: Self Edit Transcribed Date: 06/05/2024 [...] GEMUSE QTc 482 ms GEMUSE P Wave [place] 28 degrees GEMUSE R [place] 29 degrees GEMUSE T [place] 44 degrees GEMUSE ECG Interpretation Normal sinus rhythm Prolonged QT Abnormal ECG When compared with ECG of 04-MAY-2024 14:40, No significant change was found Confirmed by Jerome SALAS JOHN ([id number]) on 06/05/2024 10:56:55 AM GEMUSE 06/04/2024 9:37 PM EST 06/05/2024 10:56 AM EST Mitesh Boyd MD ECG ORDERABLES Final Res ult GEMUSE * (ABNORMAL) Magnesium (06/04/2024 9:30 PM EST) Pathologist [facility] Magnesium 1.7(L) 1.9 - 2.6 mg/dL LAB CHEMISTRY METHOD 06/04/2024 10:42 PM EST [facility] Blood Venous blood specimen / Unknown Venipuncture / Unknown 06/04/2024 9:30 PM EST 06/04/2024 10:16 PM EST us Mitesh Boyd MD LAB BLOOD ORDERABLES Ije l Result Performing Organization Address City/[facility]/ZIP Co de Phone Number [facility] [address] [place] [address], [place] [phone] * (ABNORMAL) Basic metabolic panel (06/04/2024 9:30 PM EST) [facility] Sodium 135 133 - 145 mmol/L LAB CHEMISTRY METHOD 06/04/2024 10:42 PM [facility] Potassium 4.0 3.5 - 5.5 mmol/L LAB CHEMISTRY METHOD 06/04/2024 10:42 PM [facility] Chloride 108 96 - 110 mmol/L LAB CHEMISTRY METHOD 06/04/2024 10:42 PM [facility] CO2 22 21 - 32 mmol/L LAB CHEMISTRY METHOD 06/04/2024 10:42 PM [facility] Anion Gap 5 3 - 11 LAB CHEMISTRY METHOD 06/04/2024 10:42 PM [facility] Glucose 197(H) 70 - 100 mg/dL LAB CHEMISTRY METHOD 06/04/2024 10:42 PM [facility] BUN 17 5 - 25 mg/dL LAB CHEMISTRY METHOD 06/04/2024 10:42 PM [facility] Creatinine 1.08 0.50 - 1.10 mg/dL LAB CHEMISTRY METHOD 06/04/2024 10:42 PM EST [facility] eGFR 63 >=60 mL/min/1. 73m2 LAB CHEMISTRY METHOD 06/04/2024 10:42 PM EST [facility] Comment:Calculation based on the??Chronic Kidney Disease Epidemiology Collaboration (CKD-EPI) equation refit??without adjustment for race. BUN/Creatinine Ratio 15.7 LAB CHEMISTRY METHOD 06/04/2024 10:42 PM EST [facility] Calcium 8.8 8.5 - 10.5 mg/dL LAB CHEMISTRY METHOD 06/04/2024 10:42 PM [facility] Blood Venous blood specimen / Unknown Venipuncture / Unknown 06/04/2024 9:30 PM EST 06/04/2024 10:16 PM EST us Mitesh Boyd MD LAB BLOOD ORDERABLES Jie ren Result [facility] [address] [place] [address], from Last 3 Months Insurance MEDICARE [place] Advance Directives Documents on File Type Date Recorded Patient Side Sawyer Expl anation Health Care Decision (hx) 06/10/2018 [...] DIRECTIVE Health Care Decision (hx) 06/10/2018 AD BOLEDN DIRECTIVE Health Care Decision (hx) 06/10/2018 AD [...] (hx) 06/10/2018 AD BOLDEN DIRECTIVE Care Teams Paper Inspector Relationship Specialty Start Date End Date Bernie Aquino NP [address] [facility] [place] [address] PCP - General Family Medicine 10/05/21
--- OUTSIDE RECORDS SUMMARY | 2024-08-27 13:47 | XMS_ITS | Encounter Summary ---
Author Organization [facility] Address [address] [place] [address] Care Team Providers Care Fur Blender Name Role Phone Bernie Aquino ROBOTICS ENGINEER Primary Care Provider [phone] Encounter Details Date Type Department Care Team [...] Info) Description 08/27/2024 2:30 PM EDT Treatment [facility] Speech Therapy [address] [facility] [address] [place] [phone] Jessica Hull, PETROLEUM PRODUCTION ENGINEER 09/10/2024 9:10 AM EDT Office Visit Gastroenterology - 299 [facility] [address] [phone] Leif Burciaga PA [address] [address] 09/16/2024 9:[address] [facility] [address] [phone] 09/24/2024 9:[address] [facility] [address] [phone] 10/22/2024 9:[address] [facility] [address] [facility] 2nd [place] [address] documented as of this encounter Goals Goal Patient Goal Type Associated Problems Recent Progress Patient-Stated? Author PETROLEUM PRODUCTION ENGINEER LTG General No Jessica Hull, PETROLEUM PRODUCTION ENGINEER Note: Pt will improve cognitive linguistic function to participate and communicate in iADLs mod I PETROLEUM PRODUCTION ENGINEER STGs General No Jessica Hull, PETROLEUM PRODUCTION ENGINEER Note: Pt will participate with development of [...] documented as of this encounter Care Teams Fur Blender Relationship Specialty Start Date End Date Bernie Aquino NP [address] [facility] [place] [address] PCP - General Family Medicine 10/05/21 documented as of this encounter
--- OUTSIDE RECORDS SUMMARY | 2024-08-27 13:47 | XMS_ITS | Encounter Summary ---
Author Organization [facility] Address [address] [place] [address] Care Team Providers Care Naphthol Soaping Machine Operator Name Role Phone Bernie Aquino Primary Care Provider [phone] Encounter Details Date Type Department Care Team (Late st Contact Info) Description 08/06/2024 Telephone [facility] Neurology Clinic [address] [place] [address] Rajesh Black NP [address] [place] [address] Social History Tobacco Use Types Packs/Day Years [...] Description 11/18/2024 10:30 AM EDT Office Visit [facility] Multiple Sclerosis Clinic [address] [place], [place] [phone] Travel Sales Consultant: Adrienne Gutiérrez MD [address] [place] [address] documented as of this encounter Visit Diagnoses Not on filedocumented in this encounter Care Teams Naphthol Soaping Machine Operator Relationship Specialty Start Date End Date Bernie Aquino [address] [place] [address] PCP - General 08/22/21 documented as of this encounter
== END 2024-08-27 11:45 | disposition home or self-care (01) ==
LOC: HO.HKAS 11:21
PROVIDERS: Visit Provider Internal Medicine Hypertension Specialist
DX: N25.1 Nephrogenic diabetes insipidus (principal); N18.9 Chronic kidney disease, unspecified
CPT/HCPCS: 99214

== ENCOUNTER → 2024-08-27 11:20 | Outpatient (BNVA) | payer MEDICARE, MEDICAID, SELFPAY | PROVIDERS: Visit Provider Internal Medicine Hypertension Specialist | DX: Z13.89 Encounter for screening for other disorder (principal) ==

== ENCOUNTER 2024-09-08 08:12 | Outpatient (REF) | payer MEDICARE, MEDICAID, SELFPAY ==
--- OUTSIDE RECORDS SUMMARY | 2024-09-08 08:28 | XMS_ITS | Encounter Summary ---
Author Organization [facility] Address [address] [place] [address] Care Team Providers Care Assistant Strength Coach Name Role Phone Bernie Aquino Primary Care Provider [phone] Encounter Details Date Type Department Care Team (Late st Contact Info) Description 09/04/2024 Telephone [facility] Multiple Sclerosis Clinic [address] [place] [address] Clinical Manager: Bernie Huitron LPN Social History Tobacco Use Types Packs/Day Years [...] encounter Miscellaneous Notes * Telephone Encounter - Bernie Lopez LPN - 09/05/2024 2:58 PM EDT Letter written faxed and emailed. * Telephone Encounter - Bernie Lopez LPN - 09/04/2024 11:00 AM EDT Called spoke to patient. She is not using Nurtec, she states does not work. She is using Emgality pen Rizatriptan does work. New insurance only paying for 4 tablets. She was receiving 9 with old insurance. If she could get up to 12 that would be great she states, for she went 4-5 days with none during an episode and it was unbearable. * Telephone Encounter - Bernie Lopez LPN - 09/04/2024 8:52 AM EDT Patient calling in regarding her prescription for rizatriptan 10 mg tablet. Patient states insurance is only giving patient 4 tablets in a 13 day period. Patient states when going through an episode 14 tablets would help her. She is asking for at least 20 tablets. For she also gets migraines during her menses. Patient would like to know if we could get a PA for more tablets. documented in this encounter Plan of Treatment Upcoming Encounters Date Type Department Care Team (Late st Contact Info) Description 11/18/2024 10:30 AM EDT Office Visit [facility] Multiple Sclerosis Clinic [address] [place] [address] Clinical Manager: Adrienne Gutiérrez MD [address] [place] [address] documented as of this encounter Visit Diagnoses Not on filedocumented in this encounter Care Teams Assistant Strength Coach Relationship Specialty Start Date End Date Bernie Aquino [address] [place] [address] PCP - General 08/22/21 documented as of this encounter
--- OUTSIDE RECORDS SUMMARY | 2024-09-08 08:28 | XMS_ITS | Encounter Summary ---
Author Organization [facility] Address [address] [place] [address] Care Team Providers Care Rig Hand Name Role Phone MilesTristenca Primary Care Provider [phone] Reason for Visit * Reason Onset Date Comments Reschedule 10/18/2021 Encounter Details Date Type Department Care Team (Late st Contact Info) Description 10/18/2021 Telephone [facility] Central Scheduling Department [address] [place] [address] Telephone Intake, Staff Reschedule Social History Tobacco [...] pls follow up with pt to coordinate [phone] documented in this encounter Plan of Treatment Upcoming Encounters Date Type Department Care Team (Late st Contact Info) Description 11/18/2024 10:30 AM EDT Office Visit [facility] Multiple Sclerosis Clinic [address] [place] [address] Mapping Editor: Adrienne Gutiérrez MD [address] [place] [address] documented as of this encounter Visit Diagnoses Not on filedocumented in this encounter Care Teams Rig Hand Relationship Specialty Start Date End Date Bernie Aquino [address] [place] [address] PCP - General 08/22/21 documented as of this encounter
--- OUTSIDE RECORDS SUMMARY | 2024-09-08 08:28 | XMS_ITS | Clinical Summary ---
Author Organization [facility] Address [address] [place] [address] Care Team Providers Care Labor Union Business Representative Name Role Phone Bernie Aquino Primary Care Provider [phone] Allergies Active Allergy Reactions Criticality Noted Date [...] as needed for anaphylaxis. 01/15/20 13 Active ipratropium-albute roL (COMBIVENT RESPIMAT) 20-100 mcg/actuation inhaler Combivent Respimat [...] (TESSALON) 200 mg capsule 08/30/19 22 Active fluticasone-umecli dinium-vilanterol (Trelegy Ellipta) 100-62.5-25 mcg blister with device [...] 05/26/19 23 Active topiramate (TOPAMAX) 50 mg tabletIndications: Chronic migraine without aura without status migrainosus, not intractable TAKE ONE TABLET BY MOUTH EVERY MORNING AND 4 TABLETS AT NIGHT 150 tablet 6 09/05/19 23 Active Additional Information Patient taking differently: 50 mg oral 2 times daily, (No instructions reported), Reported on 08/05/2024 Emgality Pen 120 mg/mL pen injectorIndication s:Intractable migraine with aura without status migrainosus INJECT 1ML (120MG) UNDER THE SKIN EVERY 28 DAYS 1 mL 11 09/25/19 24 Active lamoTRIgine (LaMICtal) 25 mg tablet Take 50 mg by mouth once a day. Active immun glob G,IgG,/gly/IgA ov50 (GAMMAGARD LIQUID INJECTION) Inject 30 g as directed every 21 days. Active gabapentin (NEURONTIN) 600 mg tablet Take 600 mg by mouth 3 times a day. Active venlafaxine (EFFEXOR) 75 mg tablet Take 75 mg by mouth at bed time. Active butalbital-acetami nophen-caffeine (FIORICET) 50-325-40 mg tablet Take 1 tablet [...] ODT 75 mg (Nurtec ODT) 75 mg tablet,disintegrat ing disintegrating tabletIndications: Chronic migraine without aura without status migrainosus, not intractable Dissolve 1 tablet (75 mg total) in the mouth daily as needed (Take at the onset of a migraine headaches ,). 8 tablet 2 08/06/19 Active rizatriptan (MAXALT) 10 mg tablet Take 1 tablet (10 mg total) by mouth once as needed for migraine for up to 1 dose. May repeat in 2 hours if unresolved. Do not exceed 2 tabs in 24 hrs, no more than 3 doses /week 12 tablet 3 09/05/19 25 Active Active Problems Problem Noted Date Diagnosed [...] Encounters Date Type Department Care Team Description 09/05/2024 myChart Message [facility] Financial Clearance Department [address] [place] [address] Mychart, Generic Provider Prescritption PA 09/04/2024 Orders Only [facility] Neurology Clinic [address] [place] [address] Rajesh Black NP 09/04/2024 Telephone [facility] Multiple Sclerosis Clinic [address] [place] [address] Sling Operator: Bernie Huitron LPN 08/07/2024 Documentation [facility] Building [address] [place] [address] Marcell Shen CPhT Prior Authorization ([place] for Emgality 120mg/ml pen Injector, #06/10, through [employer] [PA# [id number]]. Effective 07/12/24 - 08/06/25. May fill with [facility], $4.80 copay/) 08/07/2024 Documentation [facility] Building [address] [place] [address] Marcell Shen CPhT Prior Authorization ([place] for Nurtec ODT 75mg, #, through [employer] [PA# [id number]]. Effective 07/12/24 - 08/06/25. May fill with [facility], $4.80 copay/) 08/06/2024 Telephone [facility] Neurology Clinic [address] [place] [address] Rajesh Black NP 08/05/2024 1:00 PM EDT Office Visit [facility] Multiple Sclerosis Clinic [address] [place] [address] Sling Operator: Rajesh Echevarria NP Intractable migraine with aura without status migrainosus (Primary Dx); Chronic migraine without aura without status migrainosus, not intractable 07/29/2024 Orders Only [facility] Sclerosis [facility] [address] [place] [address] Sling Operator: Caitlyn Sanchez MD 07/28/2024 Telephone [facility] S[facility] [address] [place] [address] Sling Operator: Sari Workman Telephone Intake, Staff PAC Patient Request Call Back; PAC Appt Request - Established 06/11/2024 Refill [facility] S[facility] [address] [place] [address] Sling Operator: Gwen Pitts MA from Last 3 Months Family History Medical [...] Description 11/18/2024 10:30 AM EDT Office Visit [facility] Multiple Sclerosis Clinic [address] [place] [address] Sling Operator: Adrienne Gutiérrez MD [address] [place] [address] Health Maintenance Due Date Last Done Comments [...] Screening Completed 05/29/2024 Procedures * Due to [place] [employer] law, this organization might not be [...] to Health Maintenance Results * Due to [place] [employer] law, this organization might not be sharing negative HIV tests. * IMAGING - SCANNED (07/29/2024 8:58 AM EDT) Anatomical Region Laterality Modality Other us Unknown Provider MD SCANNED PROCEDURES Final Res ult * (ABNORMAL) Comprehensive Metabolic Panel (04/20/2023 9:56 AM EST) NA 141 135 - 145 mmol/L 04/20/2023 11:01 AM EST [facility] K 3.6 3.5 - 5.3 mmol/L 04/20/2023 11:01 AM EST [facility] Cl 107 97 - 110 mmol/L 04/20/2023 11:01 AM EST [facility] CO2 21(L) 24 - 32 mmol/L 04/20/2023 11:01 AM EST [facility] Anion Gap 13 5 - 15 04/20/2023 11:01 AM EST [facility] Glucose 139(H) 70 - 99 mg/dL 04/20/2023 11:01 AM EST [facility] Creatinine 0.89 0.50 - 1.20 mg/dL 04/20/2023 11:01 AM EST [facility] Calcium 9.1 8.7 - 10.7 mg/dL 04/20/2023 11:01 AM EST [facility] Total Protein 7.1 6.0 - 8.0 g/dL 04/20/2023 11:01 AM EST [facility] Albumin 4.4 3.5 - 4.8 g/dL 04/20/2023 11:01 AM EST [facility] Bilirubin, Total 0.2(L) 0.3 - 1.2 mg/dL 04/20/2023 11:01 AM EST [facility] Alkaline Phosphatase 115 30 - 115 U/L 04/20/2023 11:01 AM EST [facility] AST 14 10 - 40 U/L 04/20/2023 11:01 AM EST [facility] ALT 19 10 - 40 U/L 04/20/2023 11:01 AM EST [facility] BUN 19 7 - 23 mg/dL 04/20/2023 11:01 AM EST [facility] eGFR 81 >=60 mL/min/1. 73m2 04/20/2023 11:01 AM EST [facility] Comment:The estimated glomer ular [...] MD LAB BLOOD ORDERABLES Final R esult [facility] [address] [place] [address], * DIABETES EYE EXAM (11/10/2021) 11/10/2021 us Onbase Scan [facility] Final Resu lt from Last 3 Months or Most Recently Relevant to Health Maintenance Insurance MEDICARE [facility] Advance Directives Documents on File Type Date Recorded Patient Resident Associate Expl [facility] Care Proxy 02/14/2017 2:27 PM Care Teams Labor Union Business Representative Relationship Specialty Start Date End Date Bernie Aquino [address] [place] [address] PCP - General 08/22/21
--- OUTSIDE RECORDS SUMMARY | 2024-09-08 08:28 | XMS_ITS | Clinical Summary ---
Author Organization [facility] Address [address] [place] [address] Phone Care Team Providers Care Pe Teacher Name Role Phone Unavailable Primary Care Provider [...] 50+ Years Discontinued 4, 12/19/2009 Insurance Medicare [facility] Medicare [facility]
--- OUTSIDE RECORDS SUMMARY | 2024-09-08 08:28 | XMS_ITS | Encounter Summary ---
Author Organization [facility] Address [address] [place] [address] Care Team Providers Care Bioinformatics Analyst Name Role Phone Bernie Aquino Primary Care Provider [phone] Encounter Details Date Type Department Care Team (Late st Contact Info) Description 09/05/2024 Internet Mall Message [facility] Financial Clearance Department [address] [place] [address] Slide, Generic Provider [address] [place] [address] Prescritption PA Social History Tobacco Use Types Packs/Day Years [...] Description 11/18/2024 10:30 AM EDT Office Visit [facility] Multiple Sclerosis Clinic [address] [place] [address] Chrome Plater Helper: Adrienne Gutiérrez MD [address] [place] [address] documented as of this encounter Visit Diagnoses Not on filedocumented in this encounter Care Teams Bioinformatics Analyst Relationship Specialty Start Date End Date Bernie Aquino [address] [place] [address] PCP - General 08/22/21 documented as of this encounter
--- OUTSIDE RECORDS SUMMARY | 2024-09-08 08:28 | XMS_ITS | Encounter Summary ---
Author Organization [facility] Address [address] [place] [address] Care Team Providers Care Neurodiagnostic Technician Name Role Phone Bernie Aquino Primary Care Provider [phone] Encounter Details Date Type Department Care Team (Late st Contact Info) Description 04/05/2020 Documentation [facility] Building [address] [place] [address] Rafaela Pedro CPhT Social History Tobacco Use [...] Visit [facility] Multiple Sclerosis Clinic [address] [place] [address] Grid Maker: Adrienne Gutiérrez MD [address] [place] [address] documented as of this encounter Visit Diagnoses Not on filedocumented in this encounter Care Teams Neurodiagnostic Technician Relationship Specialty Start Date End Date Bernie Aquino [address] [place] [address] PCP - General 08/22/21 documented as of this encounter
--- OUTSIDE RECORDS SUMMARY | 2024-09-08 08:28 | XMS_ITS | Encounter Summary ---
Author Organization [facility] Address [address] [place] [address] Care Team Providers Care Airport Manager Name Role Phone Bernie Aquino Primary Care Provider [phone] Reason for Referral * Medication Prior Authorization - Authorized Specialty Diagnoses / Procedures Referred By Javier t Referred To Contact Rajesh Black NP [address] [place] [address] Phone: tel: fax: Referral ID Status Reason Start Date Expiration Date V isits Requested Visits Authorized [id number] Authorized 6 6 Encounter Details Date Type Department Care Team (Late st Contact Info) Description 09/04/2024 Orders Only [facility] Neurology Clinic [address] [place] [address] Rajesh Black NP [address] [place] [address] Social History Tobacco Use Types Packs/Day Years [...] Description 11/18/2024 10:30 AM EDT Office Visit [facility] Sclerosis Clinic [address] [place] [address] Occupational Therapist Rehab Manager: Adrienne Gutiérrez MD [address] [place] [address] documented as of this encounter Visit Diagnoses Not on filedocumented in this encounter Care Teams Airport Manager Relationship Specialty Start Date End Date Bernie Aquino [address] [place] [address] PCP - General 08/22/21 documented as of this encounter
--- OUTSIDE RECORDS SUMMARY | 2024-09-08 08:28 | XMS_ITS | Data Portability ---
Author Organization [place] - [facility], Allergy Address [address] [address] Assessment Encounter Date Assessment Date Assessment LastModified [...] 025 [email or web address], [address], [facility], [place], [address], 12:41:45 Procedures None recorded . Surgeries None recorded . Imaging CT, sinuses, w/o contrast 2023 024 becca Ents Of [facility], [address] [place] [address], [address], 4 10:39:49 Medication Orders budesoni de 0.5 mg/2 mL suspensi on for nebuliza tion 2023 024 [id number], [address] [facility], [place], [address], 10:37:41 Patient TargetsNo targets recorded. Patient InstructionsNo instructions recorded. Reason for Referral Physical Therapist Referral for Pain of left temporomandibular joint Referring Physician: Juanita Vo, Otolaryngology, Encounter Date: 05/23/2024 Results Created Date Observation Date Name Description Value Unit Range Abnormal Flag Note LastModifiedBy Organization Detail LastModifiedTime 10/01/19 CT, sinus es, w/o contr ast No observ ation record ed. evelyn Ents Of [address], [address], 10/01/2023 10:36:08 10/17/19 24 10/01/2023 CT, sinus es, w/o contr ast No observ ation [place] [facility]. [email or web address] Of [address], [address], 10/17/2023 12:45:07 01/02/20 24 05/28/2019 imagi ng/di [...] Organization Details Recorded Time Nasal congestio n 99249070 Active 2019 Nasal congestio n; Note: Date Diagnosed : 05/26/2019 1:39 PM (R09.81) Not Available [facility] 02:47:40 Immunodef iciency disorder 995116842 Active 2019 Immunodef iciency, unspecifi ed; Note: Changed from D84 to D84.9 ( 11:21 AM) , Date Diagnosed : 05/26/2019 1:39 PM (D84) Not Available [facility] 4 02:47:43 Sensorine ural hearing loss 34265277 Active 2020 Sensorine ural hearing loss, unilatera l, left ear, with unrestric dariana hearing on the contralat eral side; Note: Date Diagnosed : 01/20/2021 1:26 PM (H90.42) Not Available [facility] 4 02:47:40 Chronic sinusitis 01742875 Active 2020 Sinusitis (chronic) NOS; Note: Date Diagnosed : 1 2:03 PM (J32.9) Not Available [facility] 4 02:47:42 Posterior rhinorrhe a 25172554 Active 2019 Postnasal drip; Note: Date Diagnosed : 05/26/2019 2:03 PM (R09.82) Not Available [facility] 4 02:47:46 Abnormal auditory perceptio n 76005072 Active 2021 Other abnormal auditory perceptio ns, left ear; Note: Date Diagnosed : 10/12/2021 11:06 AM (H93.292) Not Available [facility] 4 02:47:41 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; Note: Date Diagnosed : 05/26/2019 2:51 PM (D80.1) Not Available [facility] 4 02:47:43 Headache 90468507 Active 2019 Headache; Note: Date Diagnosed : 05/26/2019 1:39 PM (R51) Headach e, unspecifi ed; Note: Changed from R51 to R51.9 (04/27/20 21 3:39 PM) , Date Diagnosed : 05/26/2019 1:39 PM (R51) Not Available [facility] 4 02:47:47 Chronic cough 55798026 Active 2023 LIDYA MINOR MD [address] [place] [address], [place], [address] , [facility] - [facility] 4 10:16:49 Perennial allergic rhinitis 004027844 Active 2023 LIDYA MINOR MD [address] [facility] [address] [facility], [place], [address] , [place] [facility] [place] 4 10:17:00 Hyperimmu noglobuli n E syndrome 59351173 Active 2023 LIDYA MINOR MD [address] [facility] [address] [address], [place], [address] , [place] [facility] 4 10:17:16 Moderate persisten t asthma 066139344 Active 2023 LIDYA MINOR MD [address] [facility],[place] [address], [place], [address] , [place] [facility] [place] 4 10:17:24 Polyp of nasal cavity 187919119 Active 2023 LIDYA MINOR MD [address] [facility],[place] [address], [place], [address] , [place] [facility] [place] 4 10:36:51 Pain of left temporoma ndibular joint 79971481366 065530 Active 2024 JUANITA VO PA-C [address] [facility],[place] [address], [place], [address] , [place] [facility] 5 13:37:29 Problem Notes None recorded. Procedures Surgical History Date Name Laterality Status Provider Name and Address Organization Details Recorded Time Air & Speech Audio with Tymps (72195, 32776 & 60096) completed TAWANNA WEAVER [address] [facility] [place] [facility], [place], [address], [place] [facility] 05/23/2024 13:49:00 4 JMSNasal/Sinus Endoscopy completed LIDYA URIBE MD [address] [facility],[place] [address], [place], [address], [place] [facility] 10/01/2023 10:35:41 functional endoscopic sinus surgery completed LIDYA URIBE MD [address], [address], [place] [facility] [place] 09/30/2023 14:24:57 simple extraction of tooth completed LIDYA URIBE MD [address], [address], [place] [facility] [place] 09/30/2023 14:25:15 dilation and curettage completed LIDYA URIBE MD [address] [place] [address], [address], [place] [facility] 09/30/2023 14:26:03 arthroscopy of knee completed LIDYA URIBE MD [address] [place] [address], [address], [place] [facility] 09/30/2023 14:26:15 Imaging Results Imaging Date Name Status LastModified by Organ [facility] Details LastModified Time 10/01/2023 CT, sinuses, w/o contrast completed evelyn Ents [address], [address], 10/01/2023 10:36:08 10/01/2023 CT, sinuses, w/o contrast completed evelyn [facility] [address], [address], 10/17/2023 12:45:07 05/28/2019 imaging/diagno stic result completed [...] Name and Address Organization Details Recorded Time 417105 Flonase medicatio n other Not available Not available 09/25/2023 67096 RxNorm React ion: unkno wn, unspe cifie d;; Not Available [facility] 4 01:19:32 184760 Demerol medicatio n Not available Not available Not available 10/01/2023 71438 1 RxNorm Serge murphy [place] - [facility] 4 10:10:31 732767 morphine medicatio n Not available Not available Not available 10/01/2023 7052 RxNorm Serge murphy [place] - [facility] 4 10:10:40 Medications Name Sig Start [...] mg tablet 04/26 completed Medicati on ID: [id number] D uration Value: 30 Brand Name: gabapent [...] 10 mg tablet active Medicati on ID: [id number] B rand Name: atorvast atin Sen d [...] 8 mg tablet active Medicati on ID: 134038 B rand Name: ondanset sharon HCl Send [...] mg tablet 05/23 completed Medicati on ID: [id number] D uration Value: 30 Brand Name: benztrop ine Send Method: E-Prescr ibed Sub s Allowed: subs JENNIFER Bhardwaji al Instruct ion: TAKE 1/2 TABLET BY MOUTH IN THE MORNING AND 1 TABLET BY MOUTH AT BEDTI [place] Medic ationGen ericName : benztrop ine Not [...] elayed release 09/30 completed Medicati on ID: [id number] D uration Value: 90 Brand Name: omeprazo le Send Method: E-Prescr ibed Sub s Allowed: subs OK Speci al Instruct ion: TAKE ONE CAPSULE BY MOUTH TWICE A DAY Medi cationGe nericNam e: omeprazo le Medic ation ID: [id number] D uration Value: 90 Brand Name: omeprazo [...] mg tablet 04/26 completed Medicati on ID: [id number] D uration Value: 30 Brand Name: folic acid Sen d Method: E-Prescr ibed Sub s Allowed: subs OK Speci al Instruct ion: TAKE FOUR TABLETS BY MOUTH EVERY DAY [facility] Point[facility] nericNam e: folic acid Not Available Not [...] 24 hr 2019 active Medicati on ID: 506182 D uration Value: 30 Brand Name: metformi [...] mg tablet 2019 active Medicati on ID: [id number] D uration Value: 30 Brand Name: lisinopr il Send Method: E-Prescr ibed Sub s Allowed: subs OK Speci al Instruct ion: TAKE ONE TABLET BY MOUTH EVERY DAY Medi cationGe nericNam e: lisinopr il Not Available Not Available Not Available ipratropi um bromide 21 mcg (0.03 %) nasal spray 2 spray 04/26 completed Medicati on ID: [id number] [place] By Name: Jerome Sauer nd [...] mg tablet 04/26 completed Medicati on ID: 776262 D uration Value: 30 Brand Name: Latuda [...] mg capsule 04/26 completed Medicati on ID: [id number] D uration Value: 30 Brand Name: Vraylar Send Method: E-Prescr ibed Sub s Allowed: subs OK Speci al Instruct ion: TAKE ONE CAPSULE BY MOUTH EVERY DAY IN THE MORNING Medicati onGeneri cName: Vraylar Medicati on ID: [id number] D uration Value: 30 Brand Name: Vraylar [...] Updated DateTime 10/01/2023 162.56 cm 29 kg/m2 06419.11 g Serge [facility] 10/01/2023 10:14:43 Date Recorded Body height Body mass index (BMI) Body weight Provider Name and Address Organization Details Last Updated DateTime 05/23/2024 162.56 cm 29 kg/m2 18975.11 g Trish Montez [place] - [facility] 05/23/2024 13:23:27 Social History Question Answer Notes LastModified by Organizat ion Details LastModified Time Tobacco Smoking Status Never Smoker Serge murphy [place] - [facility] 10/01/2023 10:11:57 What Is Your Level Of Alcohol Consumption? None [email or web address] Information not available 10/01/2023 Do You Use Any Illicit Or Recreational Drugs? No [email or web address] Information not available 10/01/2023 Do You Or Have You Ever Used Any Other Forms Of Tobacco Or Nicotine? No [email or web address] Information not available 10/01/2023 Sex: Unknown Functional Status None recorded. Mental Status None recorded. Family History Nothing Reported. Medical History Condition Response Allergies/Hayfever N Heart Problems N Emphysema N Migraines N Thyroid Problems N Glaucoma N Depression Y COPD N Nasal or Sinus Problems N Anemia N Immune System Disorder N Anesthesia Complications N Heart Attack ([place]) N Other Skin Condition N Diabetes Y [...] Note 631 LIDYA MINOR MD [facility] [address] [address] 10/01/2023 09:53:23 10/01/2023 10:39:48 Chronic cough 81037760 R05.3 Posterior rhinorrhea 758 73283 R09.82 Perennial allergic rhinitis 349864288 J30.89 Hypogammaglobulinemia 11 3138937 D80.1 Hyperimmun oglobulin E syndrome 95560895 D82.4 Moderate p ersistent asthma 865846008 J45.40 Chronic sinusitis 207858 00 J32.9 Polyp of nasal cavity 73 5052441 J33.0 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 There is evidence of prior sinus surgery with an adhesion on the right side. Bilateral diffuse maxillary sinus thickening noted. Suggest topical steroid irrigation s and follow-up in 3 months. No indication for surgical interventi on at the present time [id number] LIDYA MINOR MD [facility] [address] [address] 05/23/2024 13:20:39 05/23/2024 14:18:31 Pain of left temporomandibular joint 9599517556 7447543 M26.622 Right Ear:Normal hearing with excellent speech [...] ID Guarantor Name 10/01/2023 2 MEDICARE B-[place]: [facility] Meredith Leah Radha [id number] Meredith Leah Radha 10/01/2023 1 BCBS-ID:[facility] [id number] Pineda Garcia [id number] Meredith Lynn Radha 05/23/2024 2 MEDICARE B-[place]: [facility] Meredith Garcia [id number] Meredith Leah Radha 05/23/2024 1 BCBS-ID:[facility] [id number] Pineda Garcia [id number] Meredith Leah Radha Notes Date Note [...] allergy with the scent. LIDYA URIBE MD [address] [place] [address], [place], [address], [facility] - [facility] 10/01/2023 12:13:54 5 text/html 48 year [...] unintentional weight loss . LIDYA URIBE MD [address] [place] [address], [address], [facility] - [facility] 05/23/2024 16:54:36 OBGyn Episode No OBEpisode recorded.
--- OUTSIDE RECORDS SUMMARY | 2024-09-08 08:28 | XMS_ITS | Referral Summary ---
Author Organization [facility] Address [address] [place] [address] Care Team Providers Care Target Aircraft Controller Name Role Phone Bernie Aquino Primary Care Provider [phone] Encounters Date Type Department Care Team Description 09/05/2024 myChart Message [facility] Financial Clearance Department [address] [place] [address] Mychart, Generic Provider Prescritption PA 09/04/2024 Orders Only [facility] [address] [place] [address] Rajesh Black NP 09/04/2024 Telephone [facility] [address] [place] [address] Commercial Sheet Metal Foreman: Bernie Huitron LPN 08/07/2024 Documentation [facility] Building [address] [place] [address] Marcell Shen CPhT Prior Authorization ([place] for Emgality 120mg/ml pen Injector, #06/10, through [employer] [PA# [id number]]. Effective 07/12/24 - 08/06/25. May fill with [facility], $4.80 copay/) 08/07/2024 Documentation [facility] [address] [place] [address] Spinola, Marcell, bargeman Prior Authorization ([place] for Nurtec ODT 75mg, #16/, through [employer] [ROMY# [id number]]. Effective 07/12/24 - 08/06/25. May fill with [facility], $4.80 copay/) 08/06/2024 Telephone [facility] [address] [place] [address] Rajesh Black NP 08/05/2024 1:00 PM EDT Office Visit [facility] [address] [place] [address] Commercial Sheet Metal Foreman: Rajesh Echevarria NP Intractable migraine with aura without status migrainosus (Primary Dx); Chronic migraine without aura without status migrainosus, not intractable 07/29/2024 Orders Only [facility] [address] [place] [address] Commercial Sheet Metal Foreman: Sari Workman Provider, MD Caitlyn 07/28/2024 Telephone [facility] [address] [place] [address] Commercial Sheet Metal Foreman: Sari Workman Telephone Intake, Staff PAC Patient Request Call Back; PAC Appt Request - Established 06/11/2024 Refill [facility] [address] [place] [address] Commercial Sheet Metal Foreman: Gwen Pitts MA from Last 3 Months Allergies Active Allergy [...] mcg by mouth once a day. 05/26/19 Active topiramate (TOPAMAX) 50 mg tabletIndications: Chronic migraine without aura without status migrainosus, not intractable TAKE ONE TABLET BY MOUTH EVERY MORNING AND 4 TABLETS AT NIGHT 150 tablet 6 09/05/19 Active Additional Information Patient taking differently: 50 mg oral 2 times daily, (No instructions reported), Reported on 08/05/2024 Emgality Pen 120 mg/mL pen injectorIndication s:Intractable migraine with aura without status migrainosus INJECT 1ML (120MG) UNDER THE SKIN EVERY 28 DAYS 1 mL 11 09/25/19 Active lamoTRIgine (LaMICtal) 25 mg tablet Take [...] 3 doses /week 12 tablet 3 09/05/19 Active Active Problems Problem Noted Date Diagnosed [...] Description 11/18/2024 10:30 AM EDT Office Visit [facility] [address] [place] [address] Commercial Sheet Metal Foreman: Adrienne Gutiérrez MD [address] [place] [address] Procedures * Due to [place] [employer] law, this organization might not be sharing negative HIV tests. Procedure Name Priority Date/Time Associated Diagnosis Comments IMAGING - SCANNED Routine 07/29/2024 8:5 8 AM EDT COMPREHENSIVE METABOLIC PANEL Routine 04/20/2023 9:56 AM EST Chronic migraine without aura without status migrainosus, not intractable HM DIABETES EYE EXAM 11/10/2021 from Last 3 Months or Most Recently Relevant to Health Maintenance Results * Due to [place] [employer] law, this organization might not be sharing negative HIV tests. * IMAGING - SCANNED (07/29/2024 8:58 AM EDT) Anatomical Region Laterality Modality Other us Unknown Provider MD SCANNED PROCEDURES Final Res ult * (ABNORMAL) Comprehensive Metabolic Panel (04/20/2023 9:56 AM EST) NA 141 135 - 145 mmol/L 04/20/2023 11:01 AM EST [facility] K 3.6 3.5 - 5.3 mmol/L 04/20/2023 11:01 AM EST [facility] Cl 107 97 - 110 mmol/L 04/20/2023 11:01 AM EST [facility] CO2 21(L) 24 - 32 mmol/L 04/20/2023 11:01 AM EST [facility] Anion Gap 13 5 - 15 04/20/2023 11:01 AM EST [facility] Glucose 139(H) 70 - 99 mg/dL 04/20/2023 11:01 AM EST [facility] Creatinine 0.89 0.50 - 1.20 mg/dL 04/20/2023 11:01 AM EST [facility] Calcium 9.1 8.7 - 10.7 mg/dL 04/20/2023 11:01 AM EST [facility] Total Protein 7.1 6.0 - 8.0 g/dL 04/20/2023 11:01 AM EST [facility] Albumin 4.4 3.5 - 4.8 g/dL 04/20/2023 11:01 AM EST [facility] Bilirubin, Total 0.2(L) 0.3 - 1.2 mg/dL 04/20/2023 11:01 AM EST [facility] Alkaline Phosphatase 115 30 - 115 U/L 04/20/2023 11:01 AM EST [facility] AST 14 10 - 40 U/L 04/20/2023 11:01 AM EST [facility] ALT 19 10 - 40 U/L 04/20/2023 11:01 AM [facility] BUN 19 7 - 23 mg/dL 04/20/2023 11:01 AM [facility] eGFR 81 >=60 mL/min/1. 73m2 04/20/2023 11:01 AM EST [facility] Comment:The estimated glomer ular [...] MD LAB BLOOD ORDERABLES Final R esult [facility] [address] [place] [address], * DIABETES EYE EXAM (11/10/2021) 11/10/2021 us Onbase Scan [facility] Final Resu lt from Last 3 Months or Most Recently Relevant to Health Maintenance Insurance MEDICARE [facility] Advance Directives Documents on File Type Date Recorded Patient Cassandra Consultant Expl [facility] Care Proxy 02/14/2017 2:27 PM Care Teams Target Aircraft Controller Relationship Specialty Start Date End Date Bernie Aquino [address] [place] [address] PCP - General 08/22/21
--- OUTSIDE RECORDS SUMMARY | 2024-09-08 08:28 | XMS_ITS | Clinical Summary ---
Author Organization [facility] Address [address] [place] [address] Care Team Providers Care Center Director Lead Teacher Name Role Phone Bernie Aquino TOWER SUPERVISOR Primary Care Provider [phone] Allergies Active Allergy Reactions Criticality Noted Date [...] age to complete this topic Care Teams Center Director Lead Teacher Relationship Specialty Start Date End Date Bernie Aquino, TOWER SUPERVISOR [address] [facility] [place] [address] PCP - General Family Medicine 10/05/21
--- OUTSIDE RECORDS SUMMARY | 2024-09-08 08:28 | XMS_ITS | Data Portability ---
Author Organization [place] - [facility] Address [address] [place] [phone] Assessment Encounter Date Assessment Date Assessment LastModified [...] today. Time On Scene with Patient: 00:44:09 [email or web address] Not available 02/05/2019 01:11:18 Plan of Treatment Reminders Order Date Submit Date Provider Last Modified By Organization Details Last Modified Time Details Appointments None recorded. Lab culture, [facility] 019 [email or web address] [facility] (Centralized Electronic Ordering - All Locations), Patient Can Go To The Location Of Their Choice, [id number] 9 10:09:39 CBC w/ auto diff 2018 019 [email or web address] [facility] (Centralized Electronic Ordering - All Locations), Patient Can Go To The Location Of Their Choice, [id number] 9 01:55:55 urinalysis, dipstick 2018 019 [employer] (V3[facility]) [facility] - Home, [address] [place], [address], 9 13:13:26 BMP + ionized calcium, serum or plasma 2018 019 [employer] (V3[facility]) [facility], [address] [place], [address], 9 13:13:26 Referral None recorded. Procedures None recorded. Surgeries None recorded. Imaging None recorded. Medication Orders None recorded. Patient TargetsNo targets recorded. Patient Instructions Encounter Date Encounter Id Patient Instructions Last Modified By Organization Details Last Modified Time 02/03/2019 [id number] YOU WERE SEEN FO R FLANK PAIN [...] MANAGEMENT Thank you for your visit with [facility] today. We cannot always find the exact [...] in your condition between 8am-10pm, please call [facility] at [phone] to help navigate your care. Renal Colic [...] extra Tylenol/Acetaminop hen if you are taking [place]/Vicodin/Perc ocet. Depending on the location of your [...] condition between 8am-10pm, please call [facility] at [phone] to help navigate your care. [email or web address] Not available 02/03/2019 13:14:24 Reason for Referral None Reported. Results Created Date Observation Date Name Description Value Unit Range Abnormal Flag Note LastModifiedBy Organization Detail LastModifiedTime 02/04/20 19 02/03/2019 BMP + ioniz ed calci um, serum or plasm a Na 143 mmol/ L 138-14 6 Not Available Spr - Home [address] [place], [address], 02/03/2019 12:56:51 02/04/2002/03/2019 BMP + ioniz ed calci um, serum or plasm a K 3.7 mmol/ L 3.5-4. 9 Not Available Spr - Home [address] [place], [address], 02/03/2019 12:56:51 02/04/2002/03/2019 BMP + ioniz ed calci um, serum or plasm a cL 108 mmol/ L 98-109 Not Available Spr - Home [address] [place], [address], 02/03/2019 12:56:51 02/04/2002/03/2019 BMP + ioniz ed calci um, serum or plasm a ica 1.30 mmol/ L 1.12-1 .32 Not Available Spr - Home [address] [place], [address], 02/03/2019 12:56:51 02/04/2002/03/2019 BMP + ioniz ed calci um, serum or plasm a TCO2 22 mmol/ L 24-29 Not Available Spr - Home [address] [place], [address], 02/03/2019 12:56:51 02/04/2002/03/2019 BMP + ioniz ed calci um, serum or plasm a glu 99 mg/dL 70-105 Not Available Spr - Home [address] [place], [address], 02/03/2019 12:56:51 02/04/2002/03/2019 BMP + ioniz ed calci um, serum or plasm a BUN 18 mg/dL 8-26 Not Available Spr - Home [address] [place], [address], 02/03/2019 12:56:51 02/04/2002/03/2019 BMP + ioniz ed calci um, serum or plasm a crea 0.9 mg/dL .6-1.3 Not Available Spr - Home [address] [place], [address], 02/03/2019 12:56:51 02/04/2002/03/2019 BMP + ioniz ed calci um, serum or plasm a HCT 38 %_pcv 38-51 Not Available Spr - Home [address] [place], [address], 02/03/2019 12:56:51 02/04/2002/03/2019 BMP + ioniz ed calci um, serum or plasm a Hb 12.9 g/dL 12-17 Not Available Spr - Home [address] [place], [address], 02/03/2019 12:56:51 02/04/2002/03/2019 BMP + ioniz ed calci um, serum or plasm a angap 17 mmol/ L 10-20 Not Available Spr - [address] [place], [address], 02/03/2019 12:56:51 02/04/2002/03/2019 urina lysis , dipst ick Appearance clear Not Available Spr - [place] [address] [place], [address], 02/03/2019 12:44:42 02/04/2002/03/2019 urina lysis , dipst ick Color light yellow Not Available Spr - Home [address] [place], [address], 02/03/2019 12:44:42 02/04/2002/03/2019 urina lysis , dipst ick Glucose negati ve Not Available Spr - Home [address] [place], [address], 02/03/2019 12:44:42 02/04/2002/03/2019 urina lysis , dipst ick Bilirubin negati ve Not Available Spr - Home [address] [place], [address], 02/03/2019 12:44:42 02/04/2002/03/2019 urina lysis , dipst ick Ketones NEG Not Available Spr - Home [address] [place], [address], 02/03/2019 12:44:42 02/04/2002/03/2019 urina lysis , dipst ick Sp. Colome 1.010 Not Available Spr - Home [address] [place], [address], 02/03/2019 12:44:42 02/04/2002/03/2019 urina lysis , dipst ick Blood NEG Not Available Spr - Home [address] [place], [address], 02/03/2019 12:44:42 02/04/2002/03/2019 urina lysis , dipst ick pH 6.0 Not Available Spr - Home [address] [place], [address], 02/03/2019 12:44:42 02/04/2002/03/2019 urina lysis , dipst ick Protein negati ve Not Available Spr - Home [address] [place], [address], 02/03/2019 12:44:42 02/04/2002/03/2019 urina lysis , dipst ick Urobilirubin negati ve Not Available Spr - Home [address] [place], [address], 02/03/2019 12:44:42 02/04/2002/03/2019 urina lysis , dipst ick Nitrites NEG Not Available Spr - Tal e [address] [place], [address], 02/03/2019 12:44:42 02/04/2002/03/2019 urina lysis , dipst ick Leukocytes ++ Not Available Spr - H ome [address] [place], [address], 02/03/2019 12:44:42 02/04/2002/04/2019 CBC w/ auto diff WBC 7.7 K/mm3 (4.0-1 1.0) Not Available [facility] (Centralized Electronic Ordering - All Locations) Patient Can Go To The Location Of Their Choice, 02/04/2019 01:55:54 02/04/2002/04/2019 CBC w/ auto diff RBC 5.29 M/mm3 (4.20- 5.40) Not Available [facility] (Centralized Electronic Ordering - All Locations) Patient Can Go To The Location Of Their Choice, 02/04/2019 01:55:54 02/04/2002/04/2019 CBC w/ auto diff HGB 11.0 gm/dL (11.7- 15.5) low Not Available [facility] (Centralized Electronic Ordering - All Locations) Patient Can Go To The Location Of Their Choice, 02/04/2019 01:55:54 02/04/2002/04/2019 CBC w/ auto diff HCT 40.6 % (35.7- 45.8) Not Available [facility] (Centralized Electronic Ordering - All Locations) Patient Can Go To The Location Of Their Choice, 02/04/2019 01:55:54 02/04/2002/04/2019 CBC w/ auto diff MCV 76.7 fL (80.0- 100.0) low Not Available [facility] (Centralized Electronic Ordering - All Locations) Patient Can Go To The Location Of Their Choice, 02/04/2019 01:55:54 02/04/2002/04/2019 CBC w/ auto diff MCH 20.8 pg (27.0- 34.0) low Not Available [facility] (Centralized Electronic Ordering - All Locations) Patient Can Go To The Location Of Their Choice, 02/04/2019 01:55:54 02/04/2002/04/2019 CBC w/ auto diff MCHC 27.1 g/dL (33.0- 37.0) low Not Available [facility] (Centralized Electronic Ordering - All Locations) Patient Can Go To The Location Of Their Choice, 02/04/2019 01:55:54 02/04/2002/04/2019 CBC w/ auto diff plt 306 K/mm3 (150-4 60) Not Available [facility] (Centralized Electronic Ordering - All Locations) Patient Can Go To The Location Of Their Choice, 02/04/2019 01:55:54 02/04/2002/04/2019 CBC w/ auto diff RDW-SD 51.2 fL (<47.0 ) high Not Available [facility] (Centralized Electronic Ordering - All Locations) Patient Can Go To The Location Of Their Choice, 02/04/2019 01:55:54 02/04/2002/04/2019 CBC w/ auto diff MPV 12.1 fL (9.4-1 2.4) Not Available [facility] (Centralized Electronic Ordering - All Locations) Patient Can Go To The Location Of Their Choice, 02/04/2019 01:55:54 02/04/2002/04/2019 CBC w/ auto diff automated NRBC 0.0 #/100 _WBC' s Not Available [facility] (Centralized Electronic Ordering - All Locations) Patient Can Go To The Location Of Their Choice, 02/04/2019 01:55:54 02/04/2002/04/2019 CBC w/ auto diff abs. NRBC 0.0 K/mm3 Not Available [facility] (Centralized Electronic Ordering - All Locations) Patient Can Go To The Location Of Their Choice, 02/04/2019 01:55:54 02/04/2002/04/2019 CBC w/ auto diff neut # 4.4 K/mm3 (1.3-7 .0) Not Available [facility] (Centralized Electronic Ordering - All Locations) Patient Can Go To The Location Of Their Choice, 02/04/2019 01:55:54 02/04/2002/04/2019 CBC w/ auto diff lymph # 2.1 K/mm3 (0.8-3 .1) Not Available [facility] (Centralized Electronic Ordering - All Locations) Patient Can Go To The Location Of Their Choice, 02/04/2019 01:55:54 02/04/2002/04/2019 CBC w/ auto diff mono# 0.8 K/mm3 (0.4-0 .9) Not Available [facility] (Centralized Electronic Ordering - All Locations) Patient Can Go To The Location Of Their Choice, 02/04/2019 01:55:54 02/04/2002/04/2019 CBC w/ auto diff eo # 0.3 K/mm3 (0.0-0 .4) Not Available [facility] (Centralized Electronic Ordering - All Locations) Patient Can Go To The Location Of Their Choice, 02/04/2019 01:55:54 02/04/2002/04/2019 CBC w/ auto diff baso # 0.1 K/mm3 (0.0-0 .1) Not Available [facility] (Centralized Electronic Ordering - All Locations) Patient Can Go To The Location Of Their Choice, 02/04/2019 01:55:54 02/04/2002/04/2019 CBC w/ auto diff abs. imm gran 0.0 K/mm3 Not Available [facility] (Central[facility] Electronic Ordering - All Locations) Patient Can Go To The Location Of Their Choice, 02/04/2019 01:55:54 02/04/2002/04/2019 CBC w/ auto diff neut 56.9 % (44-76 ) Not Available [facility] (Centralized Electronic Ordering - All Locations) Patient Can Go To The Location Of Their Choice, 02/04/2019 01:55:54 02/04/2002/04/2019 CBC w/ auto diff lymph 27.4 % (15-43 ) Not Available [facility] (Centralized Electronic Ordering - All Locations) Patient Can Go To The Location Of Their Choice, 02/04/2019 01:55:54 02/04/2002/04/2019 CBC w/ auto diff monocyte 9.7 % (4.5-1 0.5) Not Available [facility] (Centralized Electronic Ordering - All Locations) Patient Can Go To The Location Of Their Choice, 02/04/2019 01:55:54 02/04/2002/04/2019 CBC w/ auto diff eo 4.1 % (0-6) Not Available [facility] (Centralized Electronic Ordering - All Locations) Patient Can Go To The Location Of Their Choice, 02/04/2019 01:55:54 02/04/2002/04/2019 CBC w/ auto diff baso 1.6 % (0-2) Not Available [facility] (Centralized Electronic Ordering - All Locations) Patient Can Go To The Location Of Their Choice, 02/04/2019 01:55:54 02/04/2002/04/2019 CBC w/ auto diff imm gran 0.3 % Not Available [facility] (Centralized Electronic Ordering - All Locations) Patient Can Go To The Location Of Their Choice, 02/04/2019 01:55:54 02/04/2002/04/2019 cultu re, urine specimen description URINE Not Available [facility] ([facility] - All Locations) Patient Can Go To The Location Of Their Choice, 02/05/2019 10:09:39 02/04/2002/04/2019 cultu re, urine special requests NONE Not Available [facility] ([facility] Ordering - All Locations) Patient Can Go To The Location Of Their Choice, 02/05/2019 10:09:39 02/04/2002/05/2019 cultu re, urine culture Mixed bacter ial merna, indica tive of urogen ital contam inatio n. Not Available [facility] (Centralized Electronic Ordering - All Locations) Patient Can Go To The Location Of Their Choice, [id number] 02/05/2019 10:09:39 02/04/20 19 02/05/2019 cultu re, urine report status FINAL 2018 Not Available [facility] (Centralized Electronic Ordering - All Locations) Patient Can Go To The Location Of Their Choice, [id number] 02/05/2019 10:09:39 Result Notes None recorded. Procedures Surgical History Date Name Laterality Status Provider Name and Address Organization Details Recorded Time 02/04/20 19 Venipuncture - DH completed ROMY SHOOK [address], [place], [address], [place] [facility] 02/05/2019 23:27:28 Imaging Results None recorded. Procedure Notes None recorded. Medical Equipment None Reported. Allergies Allergen ID Allergen Name Allergen Category Reaction Reaction Severity Criticality Documentation Date Start Date Code Code System Note Provider Name and Address Organization Details Recorded Time 37910 Demerol medicatio n Not available Not available Not available 02/03/2019 35552 1 RxNorm ROMY SHOOK [address] [place], [address], [place] [facility] 9 12:37:19 74409 morphine medicatio n Not available Not available Not available 02/03/2019 7052 RxNorm ROMY SHOOK [address], [place], [address], [place] [facility] 9 12:37:29 19858 Reglan medicatio n Not available Not available Not available 02/03/2019 9230 RxNorm ROMY SHOOK [address], [place], [address], [place] [facility] 9 12:37:40 57251 Flonase medicatio n Not available Not available Not available 02/03/2019 16079 RxNorm ROMY SHOOK [address], [place], [address], [place] [facility] 9 [...] /min 108 mm[Hg] 76 mm[Hg] Not Available [facility] 9 12:43:08 Social History Question Answer Notes LastModified by Organizat ion Details LastModified Time Tobacco Smoking Status Never Smoker ROMY SHOOK [address] [place], [address], [place] [facility] 02/03/2019 12:40:20 How Many [...] available 2018 12:40:53 Medical History Condition Response Coronary Artery Disease N Depression Y COPD N Diabetes Y Cancer N Stroke Y Asthma Y High Cholesterol Y Pulmonary Embolism N Hypertension N Kidney Disease N Gynecological HistoryNo gynecological history recorded. Obstetrics History GPAL:G 0 P 0 0 0 0 Past Encounters Encounter ID Performer Location Encounter Start Date Encounter Closed Date Diagnosis/Indication Diagnosis SNOMED-CT Code Diagnosis ICD10 Code Diagnosis Note [id number] ROMY SHOOK [facility] [address] [place] [address] 02/03/2019 12:35:06 02/05/2019 11:44:06 Right flank pain 687588794 R10.9 Acute urin dunia tract infection 407604884 N39.0 History of calculus of kidney 480078090 Z87.442 Primary im mune deficiency disorder 55629259 D84.9 Health Concerns Section Related Observation LastModified by Organization Detai ls LastModified Time None Recorded Concern Status LastModified by Organization Details LastModified Time None Recorded Advance Directives Directive None Recorded Payers Encounter Date Sequence Insurance Name Policy Number Policy Brambila Covered Member ID Brambila Member ID Guarantor Name 02/03/2019 1 [facility] [facility] [id number] Meredith Garcia [id number] Meredith Garcia 02/03/2019 2 [place] [facility] Meredith Garcia [id number] Meredith Garcia Notes Date Note Type [...] primary immunodeficiency; migraines ROMY SHOOK [address] [place], [address], [place] [facility] 02/05/2019 23:27:34 OBGyn Episode No OBEpisode recorded.
--- OUTSIDE RECORDS SUMMARY | 2024-09-08 08:28 | XMS_ITS | Encounter Summary ---
Author Organization [facility] Address [address] [place] [address] Care Team Providers Care Director Financial Planning Name Role Phone MliesTristenca Primary Care Provider [phone] Encounter Details Date Type Department Care Team (Late st Contact Info) Description 11/21/2021 Telephone [facility] [address] [place] [address] Telephone Intake, Staff Social History Tobacco Use [...] to book it. Please call patient at [phone]. documented in this encounter Plan of Treatment Upcoming Encounters Date Type Department Care Team (Late Contact Info) Description 11/18/2024 10:30 AM EDT Office Visit [facility] [address] [place] [phone] Web Designer: Adrienne Gutiérrez MD [address] [place] [phone] documented as of this encounter Visit Diagnoses Not on filedocumented in this encounter Care Teams Director Financial Planning Relationship Specialty Start Date End Date Bernie Aquino [address] [place] [address] PCP - General 08/22/21 documented as of this encounter
--- OUTSIDE RECORDS SUMMARY | 2024-09-08 08:28 | XMS_ITS | Encounter Summary ---
Author Organization [facility] Address [address] [place] [address] Phone Care Team Providers Care Footwear Sales Coordinator Name Role Phone Unavailable Primary Care Provider Unavailabl e Encounter Details Date Type Department Care Team (Late st Contact Info) Description 07/05/2022 Telephone [facility] [address] [place] [address] Julee Stephens [place] Social History [...] you to know the orders are at [facility]. documented in this encounter Plan of Treatment Not on file documented as of this encounter Visit Diagnoses Not on filedocumented in this encounter
--- OUTSIDE RECORDS SUMMARY | 2024-09-08 08:29 | XMS_ITS | Encounter Summary ---
Author Organization [facility] Address [address] [place] [address] Care Team Providers Care Sand Digger Name Role Phone Bernie Aquino Primary Care Provider [phone] Encounter Details Date Type Department Care Team (Late st Contact Info) Description 08/06/2024 Telephone [facility] [address] [place] [address] Rajesh Black NP [address] [place] [address] Social History Tobacco Use Types Packs/Day Years [...] Description 11/18/2024 10:30 AM EDT Office Visit [facility] [address] [place], [place] [phone] Nurse Ob: Adrienne Gutiérrez MD [address] [place] [address] documented as of this encounter Visit Diagnoses Not on filedocumented in this encounter Care Teams Sand Digger Relationship Specialty Start Date End Date Bernie Aquino [address] [place] [address] PCP - General 08/22/21 documented as of this encounter
--- OUTSIDE RECORDS SUMMARY | 2024-09-08 08:29 | XMS_ITS | Encounter Summary ---
Author Organization [facility] Address [address] [place] [address] Care Team Providers Care Architectural Modeler Name Role Phone Brenie Aquino TAX TECHNICIAN Primary Care Provider Encounter Details Date Type [...] Care Team (Late st Contact Info) Description 09/10/2024 9:10 AM EDT Office Visit Gastroenterology - [address] [facility] [address] [place] [address] Leif Burciaga PA [address] [facility] [address] [place] [address] 09/16/2024 9:00 AM EDT Appointment [facility] [address] [address] 09/22/2024 9:15 AM EDT Treatment [facility] [address] [phone] Jessica Hull, CUPOLA MECHANIC 09/24/2024 9:30 AM EDT Appointment [facility] [address] [address] 10/22/2024 9:30 AM EDT Appointment [facility] 271 [facility] 2nd [place] [address] documented as of this encounter Goals Goal Patient Goal Type Associated Problems Recent Progress Patient-Stated? Author CUPOLA MECHANIC LTG General No Jessica Hull, CUPOLA MECHANIC Note: Pt will improve cognitive linguistic function to participate and communicate in iADLs mod I CUPOLA MECHANIC STGs General No Jessica Hull, CUPOLA MECHANIC Note: Pt will participate with development of [...] documented as of this encounter Care Teams Architectural Modeler Relationship Specialty Start Date End Date Bernie Aquino NP [address] [facility] [place] [address] PCP - General Family Medicine 10/05/21 documented as of this encounter
--- OUTSIDE RECORDS SUMMARY | 2024-09-08 08:29 | XMS_ITS | Encounter Summary ---
Author Organization [facility] Address [address] [place] [address] Care Team Providers Care Rn Child Name Role Phone Bernie Aquino Primary Care Provider [phone] Encounter Details Date Type Department Care Team (Late st Contact Info) Description 04/12/2021 Orders Only [facility] [address] [place] [address] ProviderCaitlyn MD [address] [place] [address] Social History Tobacco Use Types Packs/Day [...] Description 11/18/2024 10:30 AM EDT Office Visit [facility] [address] [place] [address] Assistant Boys Track Coach: Adrienne Gutiérrez MD [address] [place] [phone] documented as of this encounter Procedures * Due to [place] state law, this organization might not be sharing negative HIV tests. Procedure Name Priority Date/Time Associated Diagnosis Comments AMB EXTERNAL CT HEAD, OUTSID E RESULT Routine 03/15/2021 documented in this encounter Results * Due to [place] Kle[place] law, this organization might not be sharing negative HIV tests. * CT Head, Outside Result (03/15/2021) Anatomical Region Laterality Modality Other us Unknown Provider MD JEFFERSON EXTERNAL RESULT PROCEDUR ES Final Result documented in this encounter Visit Diagnoses Not on filedocumented in this encounter Care Teams Rn Child Relationship Specialty Start Date End Date Bernie Aquino [address] [place] [address] PCP - General 08/22/21 documented as of this encounter
--- OUTSIDE RECORDS SUMMARY | 2024-09-08 08:29 | XMS_ITS | Clinical Summary ---
Author Organization [facility] [place] Address [address] [place] [address] Care Team Providers Care Range Manager Name Role Phone Bernie Aquino PLANNING AIDE Primary Care Provider [phone] Allergies Active Allergy Reactions Criticality Noted Date [...] for nausea or vomiting., Reported on 06/11/2024 hydrOXYzine pamoate (VISTARIL) 50 mg capsule Take [...] under the skin. 08/21/19 25 025 Active ferrous gluconate (FERGON) 324 mg (38 mg iron) tabletIndications: Low iron Take 1 tablet (324 mg total) by mouth 1 (one) time each day. 30 each 2 06/09/19 25 025 Active Problems Problem Noted Date Diagnosed Date Type 2 diabetes mellitus wit hout complication ([facility] V24, [facility] V28) 06/27/2024 Asthma 06/27/2024 Hypothyroidism 06/27/2024 Chronic renal impairment, st age 3 (moderate) ([facility] V24, [facility] V28) 06/27/2024 Elevated alkaline phosphatase level [...] PM EST): Second opinion for liver bx [facility] 08/18/24 Repeat lfts today, alk phos has been trending down (157 06/13/24) Assessment & Plan (06/13/2024 5:01 PM EST): Orders: Hepatic function panel; Future CVID (common variable immuno deficiency) ([facility] V24, [facility] V28) 03/10/2024 Encounters Date Type Department Care Team Description 08/27/2024 2:30 PM EDT Treatment [facility] Speech Therapy [address] [place] [phone] Jessica Hull, MANAGER MILITARY 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); Cognitive communication disorder 08/27/2024 9:24 AM EDT - 08/27/2024 11:59 PM EDT Hospital Encounter [address] [phone] Deandre Schroeder MD Moderate persistent asthma, unspecified whether complicated (Primary Dx) Discharge Disposition: Home or Self Care 08/26/2024 8:19 AM EDT - 08/26/2024 11:59 PM EDT Hospital Encounter [address] [phone] Deandre Schroeder MD CVID (common variable immunodeficiency) ([facility] V24, [facility] V28) (Primary Dx) Discharge Disposition: Home or Self Care 08/19/2024 Telephone Gastroenterology - [address] [phone] Leif Burciaga PA 08/11/2024 8:30 AM EDT Treatment [facility] Speech Therapy [address] [place] [phone] Jessica Hull, MANAGER MILITARY 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); Cognitive communication disorder 07/31/2024 8:07 AM EDT - 07/31/2024 11:59 PM EDT Hospital Encounter [address] [phone] Deandre Schroeder MD CVID (common variable immunodeficiency) ([facility] V24, [facility] V28) (Primary Dx) Discharge Disposition: Home or Self Care 07/30/2024 2:30 PM EDT Evaluation [facility] Speech Therapy [address] [place] [phone] Jessica Hull, MANAGER MILITARY Cognitive communication disorder (Primary Dx); 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 07/30/2024 Plan of Care Documentation [facility] Speech Therapy [address] [place] [phone] 07/14/2024 Telephone Gastroenterology - [address] [facility] [address] [place] [phone] Merly Lyons MA 07/13/2024 4:40 PM EST - 07/13/2024 10:59 PM EST Emergency [facility] Emergency [address] [place] [phone] Urinary tract infection without hematuria, site unspecified (Primary Dx); Cyst of left ovary Discharge Disposition: Home or Self Care 07/11/2024 10:40 AM EST Office Visit Gastroenterology - [address] [place] [address] [address] [place] [phone] Leif Burciaga PA Elevated alkaline phosphatase level (Primary Dx); Bloating; Tenesmus; Nausea and vomiting, unspecified vomiting type 07/10/2024 Telephone Gastroenterology - [address] [place] [phone] Merly Lyons MA 07/07/2024 12:05 PM EST - 07/07/2024 11:59 PM EST Hospital Encounter [facility] Xray [address] [place] [phone] Constipation, unspecified constipation type Discharge Disposition: Home or Self Care 07/01/2024 8:57 AM EST - 07/01/2024 11:59 PM EST Hospital Encounter [facility] Infusion Center [address] [facility] 2nd [place] [phone] Deandre Schroeder MD CVID (common variable immunodeficiency) ([facility] V24, [facility] V28) (Primary Dx) Discharge Disposition: Home or Self Care 06/30/2024 Telephone Gastroenterology - [address] [place] [phone] Manda Seals MD 06/27/2024 7:41 AM EST Anesthesia Event [facility] Endoscopy [address] [place] [phone] Silvia Brooks MD Couture, Alison, CRNA 06/27/2024 6:49 AM EST - 06/27/2024 11:59 PM EST Hospital Encounter [facility] Endoscopy [address] [place] [phone] Manda Seals MD Couture, Alison, CRNA Kriz, Petra, MD Anemia; Elevated fecal calprotectin Discharge Disposition: Home or Self Care 06/24/2024 Telephone Gastroenterology - [address] [place] [phone] Merly Lyons MA 06/20/2024 Telephone Gastroenterology - [address] [place] [phone] Leif Burciaga PA 06/20/2024 Telephone Gastroenterology - [address] [facility] [address] [place] [phone] Manda Seals MD 06/19/2024 Telephone Gastroenterology - [address] [phone] Manda Seals MD 06/18/2024 Telephone Gastroenterology - [address] [facility] [address] [place] [phone] Leif Burciaga PA 06/17/2024 Telephone Gastroenterology - [address] [place] [phone] Merly Lyons MA 06/13/2024 3:24 PM EST - 06/13/2024 11:59 PM EST Hospital Encounter [facility] Xray [address] [place] [phone] Nausea; Generalized abdominal pain; Change in bowel habits Discharge Disposition: Home or Self Care 06/13/2024 2:20 PM EST Office Visit Gastroenterology - [address] [phone] Leif Burciaga PA Generalized abdominal pain (Primary Dx); Rectal bleeding; Nausea; Iron deficiency; Elevated alkaline phosphatase level; Change in bowel habits 06/11/2024 8:10 AM EST - 06/11/2024 11:59 PM EST Hospital Encounter [facility] Infusion Center [address] [place] [phone] Deandre Schroeder MD CVID (common variable immunodeficiency) ([facility] V24, [facility] V28) (Primary Dx) Discharge Disposition: Home [...] History Medical History Date Comments Diabetes mellitus ([facility] V24, [facility] V28) Diabetes insipidus, nephrogenic ([facility] V24) CVID (common variable immunodeficiency) ([facility] V24, [facility] V28) Hypothyroid Asthma Hypoparathyroidism ([facility] V24) Familial Mediterranean fever ([facility] V24, [facility] V28) Chronic kidney disease CVS disease Bipolar 1 disorder ([facility] V24[facility] V28) Migraines WALTERS (nonalcoholic steatohepatitis) Social History [...] AM EDT Office Visit Gastroenterology - 299 [facility] [address] [phone] Leif Burciaga PA [address] [address] 09/16/2024 9:00 AM EDT Appointment [facility] Center [address] [phone] 09/22/2024 9:15 AM EDT Treatment [facility] Speech Therapy [address] [phone] Jessica Hull, MANAGER MILITARY 09/24/2024 9:30 AM EDT Appointment [facility] Infusion Center [address] [phone] 10/22/2024 9:30 AM EDT Appointment [facility] Center [address] [phone] Health Maintenance Due Date Last Done Comments [...] Type Associated Problems Recent Progress Patient-Stated? Author MANAGER MILITARY LTG General No Jessica Hull, MANAGER MILITARY Note: Pt will improve cognitive linguistic function to participate and communicate in iADLs mod I MANAGER MILITARY STGs General No Jessica Hull, MANAGER MILITARY Note: Pt will participate with development of [...] min assist Medical Devices Implanted Type Area [employer] Exchange Architect Device Identifier Shelf Expiration Date Model / Serial / Lot Sponge Surgifoam Gel 12 X 7mm - [id number] Implanted:Qty: 1 on 04/09/2024 by Daniele Reeder MD at [facility] Hemostasis N/A: Abdomen [facility] [employer] [id number] 1972 / / Procedures Procedure Name Priority [...] PM EST Nausea Elevated alkaline phosphatase level from Last 3 Months Results * CT [...] urine manually resulted (07/13/2024 6:50 PM EST) [facility] HCG, Ur POC Negative Negative POC hCG Int QC Pass? Yes Yes EXPIRATION DATE POC LOT NUMBER POC [id number] Urine Urine specimen obtained by clean catch procedure / Unknown 07/13/2024 6:50 PM EST Florin STANTON POINT OF CARE TEST ENTER /EDIT ORDERABLES Final Result * (ABNORMAL) Urinalysis with reflex microscopic and culture (07/13/2024 3:07 PM EST) [facility] Specific [place] Urine 1.011 1.003 - 1.030 LAB URINALYSIS - AUTOMATED METHOD 07/13/2024 3:58 PM EST [facility] pH, Urine 6.5 5.0 - 8.0 pH LAB URINALYSIS - AUTOMATED METHOD 07/13/2024 3:58 PM [facility] Leukocytes, Urine Moderate(A) Negative LAB URINALYSIS - AUTOMATED METHOD 07/13/2024 3:58 PM [facility] Nitrite, Urine Negative Negative LAB URINALYSIS - AUTOMATED METHOD 07/13/2024 3:58 PM [facility] Protein, Urine Negative <=Trace mg/dL LAB URINALYSIS - AUTOMATED METHOD 07/13/2024 3:58 PM [facility] Glucose, Urine Negative Negative mg/dL LAB URINALYSIS - AUTOMATED METHOD 07/13/2024 3:58 PM [facility] Ketones, Urine Negative Negative mg/dL LAB URINALYSIS - AUTOMATED METHOD 07/13/2024 3:58 PM [facility] Urobilinogen , Urine 0.2 0.2 - 1.0 mg/dL LAB URINALYSIS - AUTOMATED METHOD 07/13/2024 3:58 PM [facility] Bilirubin, Urine Negative Negative LAB URINALYSIS - AUTOMATED METHOD 07/13/2024 3:58 PM [facility] Blood, Urine Small(A) Negative LAB URINALYSIS - AUTOMATED METHOD 07/13/2024 3:58 PM [facility] RBC, Urine 2.0 0 - 4 /HPF LAB URINALYSIS - AUTOMATED METHOD 07/13/2024 3:58 PM [facility] WBC, Urine 20.2(H) 0 - 4 /HPF LAB URINALYSIS - AUTOMATED METHOD 07/13/2024 3:58 PM [facility] Squamous Epithelial, Urine 4 0 - 60 /LPF LAB URINALYSIS - AUTOMATED METHOD 07/13/2024 3:58 PM [facility] Bacteria, Urine Negative Negative /HPF LAB URINALYSIS - AUTOMATED METHOD 07/13/2024 3:58 PM [facility] Hyaline Casts, Urine 0.0 0 - 3 /LPF LAB URINALYSIS - AUTOMATED METHOD 07/13/2024 3:58 PM EST [facility] Urine Urine specimen obtained by clean catch procedure / Unknown Non-blood Collection / Unknown 07/13/2024 3:07 PM EST 07/13/2024 3:50 PM EST Mitesh Boyd MD LAB URINE ORDERABLES Jie l Result Performing Organization Address City/[facility]/ZIP Co de Phone Number [facility] [address] [place] [address], [place] [phone] * Mchugh urine culture tube (07/13/2024 3:07 PM EST) Pathologist [facility] Extra Tube Hold for add-ons. 07/13/2024 5:01 PM EST [facility] Comment:Auto resulted. Urine Urine specimen obtained by clean catch procedure / Unknown Non-blood Collection / Unknown 07/13/2024 3:07 PM EST 07/13/2024 3:50 PM EST Mitesh Boyd MD LAB URINE ORDERABLES Jie l Result Performing Organization Address [facility]/ZIP Co de Phone Number [facility] [address] [place] [address], [place] [phone] * (ABNORMAL) CBC auto differential (07/13/2024 3:07 PM EST) WBC 8.6 4.8 - 10.8 K/mcL LAB HEMETOLOGY METHOD 07/13/2024 3:59 PM [facility] RBC 5.90(H) 3.80 - 4.80 M/mcL LAB HEMETOLOGY METHOD 07/13/2024 3:59 PM [facility] Hemoglobin 11.7 11.5 - 16.0 g/dL LAB HEMETOLOGY METHOD 07/13/2024 3:59 PM EST [facility] Hematocrit 41.9 35.0 - 47.0 % LAB HEMETOLOGY METHOD 07/13/2024 3:59 PM [facility] MCV 70.9(L) 79.0 - 98.0 FL LAB HEMETOLOGY METHOD 07/13/2024 3:59 PM [facility] MCH 19.8(L) 27.0 - 32.0 pcg LAB HEMETOLOGY METHOD 07/13/2024 3:59 PM [facility] MCHC 27.9(L) 32.0 - 37.0 g/dL LAB HEMETOLOGY METHOD 07/13/2024 3:59 PM [facility] RDW 20.7(H) 11.0 - 15.0 % LAB HEMETOLOGY METHOD 07/13/2024 3:59 PM [facility] Platelets 398 130 - 400 K/mcL LAB HEMETOLOGY METHOD 07/13/2024 3:59 PM [facility] MPV 10.2 7.0 - 11.0 FL LAB HEMETOLOGY METHOD 07/13/2024 3:59 PM [facility] NRBC 0.0 <1.0 % LAB HEMETOLOGY METHOD 07/13/2024 3:59 PM [facility] NRBC Absolute 0.00 <0.10 K/mcL LAB HEMETOLOGY METHOD 07/13/2024 3:59 PM [facility] Neutrophils Relative 61.9 % LAB HEMETOLOGY METHOD 07/13/2024 3:59 PM [facility] Lymphocytes Relative 24.6 % LAB HEMETOLOGY METHOD 07/13/2024 3:59 PM [facility] Monocytes Relative 8.9 % LAB HEMETOLOGY METHOD 07/13/2024 3:59 PM [facility] Eosinophils Relative 2.8 % LAB HEMETOLOGY METHOD 07/13/2024 3:59 PM [facility] Basophils Relative 1.4 % LAB HEMETOLOGY METHOD 07/13/2024 3:59 PM EST [facility] Immature Granulocytes Relative 0.4 % LAB HEMETOLOGY METHOD 07/13/2024 3:59 PM [facility] Neutrophils Absolute 5.30 1.50 - 7.00 K/mcL LAB HEMETOLOGY METHOD 07/13/2024 3:59 PM [facility] Lymphocytes Absolute 2.10 1.00 - 5.00 K/mcL LAB HEMETOLOGY METHOD 07/13/2024 3:59 PM [facility] Monocytes Absolute 0.76 0.20 - 1.00 K/mcL LAB HEMETOLOGY METHOD 07/13/2024 3:59 PM [facility] Eosinophils Absolute 0.24 0.00 - 0.50 K/mcL LAB HEMETOLOGY METHOD 07/13/2024 3:59 PM EST [facility] Basophils Absolute 0.12 0.00 - 0.20 K/mcL LAB HEMETOLOGY METHOD 07/13/2024 3:59 PM [facility] Immature Granulocytes Absolute 0.03 0.00 - 0.03 K/mcL LAB HEMETOLOGY METHOD 07/13/2024 3:59 PM [facility] Blood Venous blood specimen / Unknown Venipuncture / Unknown 07/13/2024 3:07 PM EST 07/13/2024 3:50 PM EST us Mitesh Boyd MD LAB BLOOD ORDERABLES Jie ren Result [facility] [address] [place] [address], * Culture urine (07/13/2024 3:07 PM EST) Culture, Urine No growth 07/14/2024 12:02 PM EST [facility] Urine Urine specimen obtained by clean catch procedure / Unknown Non-blood Collection / Unknown 07/13/2024 3:07 PM EST 07/13/2024 3:58 PM EST Mitesh Boyd MD LAB MICROBIOLOGY - GENERA L ORDERABLES Final Result Performing Organization Address City/[facility]/ZIP Co de Phone Number [facility] [address] [place] [address], [place] [phone] * Lipase (07/13/2024 3:07 PM EST) Lipase 70 13 - 75 unit/L LAB CHEMISTRY METHOD 07/13/2024 4:26 PM [facility] Blood Venous blood specimen / Unknown Venipuncture / Unknown 07/13/2024 3:07 PM EST 07/13/2024 3:50 PM EST Mitesh Boyd MD LAB BLOOD ORDERABLES Jie l Result Performing Organization Address [facility]/ZIP Co de Phone Number [facility] [address] [place] [address], [place] [phone] * (ABNORMAL) Comprehensive metabolic panel (07/13/2024 3:07 PM EST) Sodium 140 133 - 145 mmol/L LAB CHEMISTRY METHOD 07/13/2024 4:26 PM [facility] Potassium 3.7 3.5 - 5.5 mmol/L LAB CHEMISTRY METHOD 07/13/2024 4:26 PM [facility] Chloride 110 96 - 110 mmol/L LAB CHEMISTRY METHOD 07/13/2024 4:26 PM [facility] CO2 21 21 - 32 mmol/L LAB CHEMISTRY METHOD 07/13/2024 4:26 PM [facility] Anion Gap 9 3 - 11 LAB CHEMISTRY METHOD 07/13/2024 4:26 PM [facility] Glucose 171(H) 70 - 100 mg/dL LAB CHEMISTRY METHOD 07/13/2024 4:26 PM [facility] BUN 13 5 - 25 mg/dL LAB CHEMISTRY METHOD 07/13/2024 4:26 PM [facility] Creatinine 1.08 0.50 - 1.10 mg/dL LAB CHEMISTRY METHOD 07/13/2024 4:26 PM [facility] eGFR 63 >=60 mL/min/1. 73m2 LAB CHEMISTRY METHOD 07/13/2024 4:26 PM [facility] Comment:Calculation based on the??Chronic Kidney Disease Epidemiology Collaboration (CKD-EPI) equation refit??without adjustment for race. BUN/Creatinine Ratio 12.0 LAB CHEMISTRY METHOD 07/13/2024 4:26 PM [facility] Calcium 8.9 8.5 - 10.5 mg/dL LAB CHEMISTRY METHOD 07/13/2024 4:26 PM [facility] AST (SGOT) 33 10 - 42 unit/L LAB CHEMISTRY METHOD 07/13/2024 4:26 PM [facility] ALT (SGPT) 38 10 - 60 unit/L LAB CHEMISTRY METHOD 07/13/2024 4:26 PM [facility] Alkaline Phosphatase 158(H) 42 - 121 unit/L LAB CHEMISTRY METHOD 07/13/2024 4:26 PM [facility] Total Protein 7.3 6.0 - 8.0 g/dL LAB CHEMISTRY METHOD 07/13/2024 4:26 PM [facility] Albumin 3.7 3.2 - 5.0 g/dL LAB CHEMISTRY METHOD 07/13/2024 4:26 PM [facility] Total Bilirubin 0.3 0.0 - 1.4 mg/dL LAB CHEMISTRY METHOD 07/13/2024 4:26 PM [facility] Blood Venous blood specimen / Unknown Venipuncture / Unknown 07/13/2024 3:07 PM EST 07/13/2024 3:50 PM EST us Mitesh Boyd MD LAB BLOOD ORDERABLES Jie ren Result [facility] [address] [place] [address], [place] [phone] * (ABNORMAL) Hepatic function panel (07/11/2024 11:19 AM EST) Only the most recent of2 resultswithin the time period is included. Total Protein 7.4 6.0 - 8.0 g/dL LAB CHEMISTRY METHOD 07/11/2024 4:30 PM EST [facility] Albumin 3.8 3.2 - 5.0 g/dL LAB CHEMISTRY METHOD 07/11/2024 4:30 PM EST [facility] Total Bilirubin 0.2 0.0 - 1.4 mg/dL LAB CHEMISTRY METHOD 07/11/2024 4:30 PM [facility] Bilirubin, Direct <0.1 0.0 - 0.3 mg/dL LAB CHEMISTRY METHOD 07/11/2024 4:30 PM EST [facility] Bilirubin, Indirect LAB CHEMISTRY METHOD 07/11/2024 4:30 PM [facility] Comment:Unable to calculate Indirect Bilirubin. ALT (SGPT) 35 10 - 60 unit/L LAB CHEMISTRY METHOD 07/11/2024 4:30 PM EST [facility] AST (SGOT) 24 10 - 42 unit/L LAB CHEMISTRY METHOD 07/11/2024 4:30 PM [facility] Alkaline Phosphatase 142(H) 42 - 121 unit/L LAB CHEMISTRY METHOD 07/11/2024 4:30 PM [facility] Blood Venous blood specimen / Unknown Venipuncture / Unknown 07/11/2024 11:19 AM EST 07/11/2024 12:46 PM EST us Leif STANTON LAB BLOOD ORDERABLES Final R esult [facility] [address] [place] [address], * XR Abdomen 1 View (07/07/2024 12:22 [...] Signed Date: 07/10/2024 11:31 ET Workstation ID: [id number] Transcribed By: Self Edit Transcribed Date: 07/10/2024 [...] Signed Date: 07/10/2024 11:31 ET Workstation ID: [id number] Transcribed By: Self Edit Transcribed Date: 07/10/2024 11:27 ET Manda Seals MD IMG XR PROCEDURES Final Result * COLONOSCOPY Anesthesia - MAC; [facility] ENDOSCOPY (06/27/2024 8:07 AM EST) [...] ? purposes. Narrative 06/27/2024 8:09 AM EST [facility] GI Patient Name: Meredith Garcia [...] Procedure Code(s): ? --- Professional --- ? 61141, Colonoscopy, flexible; with biopsy, single or ? multiple Diagnosis Code(s): ? --- Professional --- ? R19.7, Diarrhea, unspecified CPT copyright 2020 [employer]. All rights reserved. The codes documented in this report are preliminary and upon interlocking tower operator review may be revised to meet current compliance requirements. Manda Seals MD 06/27/2024 8:09:30 AM This report has been signed electronically.Manda Seals MD Number of Addenda: 0 Note Initiated On: 06/27/2024 7:44 AM Scope In: Scope Out: ? Endoscopy Department at [facility] - [address] [place] [address], ? [place] [address] Procedure Note Manda Seals MD - 06/27/2024 [facility] GI Patient Name: Meredith Garcia [...] not prolapse). Procedure Code(s): --- Professional --- 74771, Colonoscopy, flexible; with biopsy, singleor multiple Diagnosis Code(s): --- Professional --- R19.7, Diarrhea, unspecified CPT copyright 2020 [employer]. All rights reserved. The codes documented in this report are preliminary and upon interlocking tower operator reviewmay be revised to meet current compliance requirements. Manda Seals MD 06/27/2024 8:09:30 AM This report has been signed electronically.Manda Seals MD Number of Addenda: 0 Note Initiated On: 06/27/2024 7:44 AM Scope In: Scope Out: Endoscopy Department at [facility] - [address] [place] [phone] IMPRESSION: - The examined portion of the [...] No colitis identified. 06/30/2024 11:31 AM EST [facility] Gross Description A. Colon, [...] multiple levels. dvb/DG 06/30/2024 11:31 AM EST [facility] Disclaimer Unless otherwise specified, all tissue is 10% NB formalin fixed and paraffin embedded. 06/30/2024 11:31 AM EST [facility] Tissue Colon structure / Unknown 06/27/2024 7:57 AM EST 06/27/2024 9:36 AM EST us Manda Seals MD LAB PATHOLOGY ORDERABLES Final Result [facility] [address] [place] [address], * External Endoscopy (06/16/2024 1:13 PM EST) Anatomical Region Laterality Modality Endoscopy us Historical Provider GI~PROCEDURE ORDERABLES F inal Result * (ABNORMAL) Calprotectin, stool (06/14/2024 7:51 AM EST) Calprotectin, Fecal 516.0(H) <50 mcg/g 06/18/2024 12:51 PM EST [facility] Comment: <50 mcg/g ?Normal 50 - 120 mcg/g ?? Borderline >120 mcg/g ? Abnormal Borderline results suggest repeat testing in 4 to 6 weeks. Test performed at [facility], [address] , [place], [place] ??[address] ? [phone] Ritika Nunes MD, PhD - Metal Moulder'S Assistant Stool Rectum structure / Unknown Non-blood Collection / Unknown 06/14/2024 7:51 AM EST 06/14/2024 1:02 PM EST us Manda Seals MD LAB BODY FLUIDS AND STOOLS ORD ERABLES Final Result [facility] [address] [place] [address] from Last 3 Months Insurance MEDICARE [place]ICA[place] - [place] Advance Directives Documents on File Type Date Recorded Patient Head Rose Grower Expl anation Health Care Decision (hx) 06/10/2018 [...] (hx) 06/10/2018 AD BOLDEN DIRECTIVE Care Teams Range Manager Relationship Specialty Start Date End Date Bernie Aquino NP Rishabh AN RD [facility] [place] [address] PCP - General Family Medicine 10/05/21
--- OUTSIDE RECORDS SUMMARY | 2024-09-08 08:29 | XMS_ITS | Encounter Summary ---
Author Organization [facility] Address [address] [place] [address] Phone Care Team Providers Care Radio Engineer Name Role Phone Unavailable Primary Care Provider Unavailabl e Encounter Details Date Type Department Care Team (Late st Contact Info) Description 01/02/2022 Telephone [facility] [address] [place] [address] Neto Cunningham MD Social History [...] on this issue. Has appt 01/10 in [place] office * Telephone Encounter - Alta Young [...] er visits. Please advise Thank you CB# [phone] documented in this encounter Plan of Treatment Not on file documented as of this encounter Visit Diagnoses Not on filedocumented in this encounter
--- OUTSIDE RECORDS SUMMARY | 2024-09-08 08:29 | XMS_ITS | Encounter Summary ---
Author Organization [facility] Address [address] [place] [address] Care Team Providers Care Animal Services Officer Name Role Phone MilesTristenca Primary Care Provider [phone] Reason for Visit * Reason Onset Date Comments migraines 03/29/2021 Encounter Details Date Type Department Care Team (Late st Contact Info) Description 03/29/2021 Telephone [facility] Central Scheduling Department [address] [place] [id number] Telephone Intake, Staff migraines Social History Tobacco [...] Description 11/18/2024 10:30 AM EDT Office Visit [facility] [address] [place] [id number] Security Shift Manager: Adrienne Gutiérrez MD [address] [place] [id number] documented as of this encounter Visit Diagnoses Not on filedocumented in this encounter Care Teams Animal Services Officer Relationship Specialty Start Date End Date Bernie Aquino [address] [place] [id number] PCP - General 08/22/21 documented as of this encounter
--- OUTSIDE RECORDS SUMMARY | 2024-09-08 08:29 | XMS_ITS | Encounter Summary ---
Author Organization [facility] Address [address] [place] [address] Phone Care Team Providers Care Lease Out Worker Name Role Phone Unavailable Primary Care Provider Unavailabl e Encounter Details Date Type Department Care Team (Late st Contact Info) Description 01/25/2022 Telephone [facility] [address] [place] [address] Neto Cunningham MD Social History [...]
[2024-09-08 09:13] LABS: Creatinine, mg/dL 30.75
[2024-09-08 09:37] LABS: Creatinine, 24Hr Urine 1.1 G/Day (1.0-2.0); Total Volume 24 Hour Urine 3700 mL
== END 2024-09-08 08:13 | disposition home or self-care (01) ==
LOC: HO.LNP 08:12
PROVIDERS: Visit Provider Internal Medicine Hypertension Specialist
DX: N25.1 Nephrogenic diabetes insipidus (principal)
CPT/HCPCS: 84300

== ENCOUNTER 2024-09-30 08:34 | Observation (INO) | payer MEDICARE, MEDICAID, SELFPAY ==
--- NOTE | ~2024-09-30 | CT_ITS ---
EXAMINATION: CT HEAD WITHOUT CONTRAST (STROKE PROTOCOL) CLINICAL INFORMATION: Left-sided weakness. Concerning acute stroke. COMPARISON: July 18, 2024 TECHNIQUE: Contiguous axial imaging was performed from the skull base to vertex without intravenous administration of contrast. This CT examination was performed using dose optimization techniques as appropriate, variously including the following: *Automated exposure control *Adjustment of mA and/or kV according to patient size (this includes techniques or standardized protocols for targeted exams where dose is matched to indication/reason for exam; i.e. extremities or head) *Use of iterative reconstruction technique DLP: 770 mg centimeter. FINDINGS: No acute intracranial hemorrhage, mass effect, midline shift, hydrocephalus or herniation. Mchugh-white matter differentiation is normal. Posterior cranial fossa contents demonstrated no acute intracranial hemorrhage or mass effect. Sellar/suprasellar region demonstrated no gross masses. Craniocervical junction demonstrates normal position of the cerebellar tonsils. There is no increased density in the MCA's. Calcified plaques in the basilar artery, cavernous segments both ICA and the right V3/V4 segment. Edentulous, maxilla. No air-fluid levels in the paranasal sinuses. Postsurgical changes in the inferior ethmoid air cells and medial wall, maxillary sinuses. Mucosal thickening, maxillary sinuses. Tympanic cavities and mastoid cells are aerated. CT/CT head for STROKE IMPRESSION: No acute intracranial hemorrhage or acute brain abnormality by CT. Status post bilateral inferior ethmoidectomies and medial maxillary antrostomies. This critical result was discussed with emergency physician Dr. Augustin Guerrero at at 8:55 AM hours on September 30, 2024. It was ascertained that the content and urgency of the report was understood at the time of direct communication. Electronically signed by: Venancio Terrell MD 09/30/2024 09:01 AM EDT
--- NOTE | ~2024-09-30 | CT_ITS ---
EXAMINATION: CTA NECK WITH CONTRAST (STROKE) CTA BRAIN WITH CONTRAST (STROKE) CLINICAL INFORMATION: Left-sided weakness. Suspect acute stroke. Assess for major vessel occlusion. Please call report. COMPARISON: Correlated to CT brain dated September 30, 2024. TECHNIQUE: CTA of the head and neck was performed in the axial plane from the mediastinum to the skull vertex using 70 mL Omnipaque 350 intravenous contrast. Additional reformatted multiplanar images including maximum intensity projection MIP images are generated on the CT workstation. This CT examination was performed using dose optimization techniques as appropriate, variously including the following: *Automated exposure control *Adjustment of mA and/or kV according to patient size (this includes techniques or standardized protocols for targeted exams where dose is matched to indication/reason for exam; i.e. extremities or head) *Use of iterative reconstruction technique. DLP: 642 mGy centimeter. FINDINGS: The degree of stenosis determined by criteria similar to NASCET. Brain: No gross acute intracranial hemorrhage or mass effect midline shift hydrocephalus or herniation. Please for to the CT brain. Chest CTA: No aneurysm or dissection, aortic arch. No focal stenosis. Normal patency of the aortic arch and its main branches. Neck CTA: Right CCA: Normal patency. No focal stenosis. No intimal flap. Right ICA: Normal patency. No focal stenosis. No intimal flap. Small caliber. No gross plaque. Left CCA: Normal patency. No focal stenosis. No intimal flap. Left ICA: Normal patency. No focal stenosis. No intimal flap. No gross plaque. V1/V2 segments: Normal patency. No intimal flap. No focal stenosis. Codominant vertebral arteries. The arteries are orientating directly from the subclavian arteries. Calcified plaque in the proximal segment of the left vertebral artery. Brain CTA: Anterior cerebral circulation: ICAs: Normal patency. No focal stenosis. No abrupt cut off. Calcified plaques in the cavernous segments more accentuated on the left side. Small caliber. MCA's: Normal patency. No focal stenosis. No abrupt cut off. ACAs: Normal patency. No focal stenosis. No abrupt cut off. Hypoplastic/small caliber right A1 segment. Anterior communicating artery is patent. The ophthalmic arteries are patent. No vascular irregularity at the origin of the arteries. Left posterior communicating artery is patent with small caliber. Posterior cerebral circulation: V3/V4 segments: Normal patency. No focal stenosis. No intimal flap. Posterior inferior cerebral arteries are patent. No vascular irregularity at the origin. Basilar artery: Normal patency. No focal stenosis. No intimal flap. Superior cerebellar arteries are patent. Anterior inferior cerebral arteries are patent. fluid pump operator: Normal patency. No focal stenosis. No abrupt cut off. Ancillary findings: Status post right hemithyroidectomy. Vascular clips along the posterior left thyroid lobe and at the surgical site on the right side. Status post bilateral inferior ethmoidectomies and medial maxillary antrostomies. Nonspecific prominent cervical lymph nodes. There is a Port-A-Cath in the soft tissues, beneath the skin, anterior right thorax. There is a pulmonary mosaic pattern. Edentulous, maxilla. Poor dentition, mandible. CT/CT angio head neck STROKE IMPRESSION: No main cerebral artery occlusion and or embolus. No high degree stenosis or dissection. This critical test result is communicated to: Emergency physician Dr. Augustin Guerrero at 9:14 AM on October 05, 2024. Electronically signed by: Venancio Terrell MD 09/30/2024 09:23 AM EDT
--- NOTE | 2024-09-30 08:46 | ECG_ITS ---
Test Reason : stroke Blood Pressure : */* mmHG Vent. Rate : 79 BPM Atrial Rate : 79 BPM P-R Int : 164 ms QRS Dur : 90 ms QT Int : 396 ms P-R-T Axes : 57 -1 43 degrees QTcB Int : 454 ms Normal sinus rhythm Possible Anterior infarct , age undetermined Abnormal ECG When compared with ECG of 16-Jul-2024 18:36, No significant change was found Referred By: Augustin Guerrero Electronically Signed By: Jus Reece
--- NOTE | 2024-09-30 08:47 | ED_ITS ---
HPI - Neuro Symptoms/Deficit General Chief Complaint: Stroke Stated Complaint: ?STROKE,SUDDEN LWEAK/SLURR WHILE DRIVING,-THIN Time Seen by Provider: 09/30/24 08:46 Source: patient and EMS Mode of arrival: EMS Limitations: no limitations History of Present Illness ED Provider: DR. Guerrero HPI Narrative: 48-year-old female came in by EMS as stroke alert patient was driving when she suddenly started to have heaviness mostly in her left side, difficulty speaking and slurred speech, generalized weakness. Initially found by EMS to have slurred speech and left facial droop with left- sided weakness. Patient on arrival feels better with no appreciated weakness or neurological deficit. Patient is not taking blood thinner. Patient reportedly was seen at [facility] yesterday for abdominal pain and patient was reassured and was told everything was clear. Related Data Home Medications ?Medication ?Instructions ?Recorded ?Confirmed montelukast 10 mg tablet 1 tab PO QPM 01/31/22 08/27/24 levothyroxine 50 mcg tablet 50 mcg PO DAILY 04/23/23 08/27/24 melatonin 10 mg capsule 10 mg PO BEDTIME PRN Insomnia 04/23/23 08/27/24 ondansetron HCl 4 mg tablet 4 mg PO Q8H PRN Nausea 05/28/23 08/27/24 atorvastatin 40 mg tablet 40 mg PO BEDTIME 12/11/23 08/27/24 cetirizine 10 mg capsule (Zyrtec) 10 mg PO BID 12/11/23 08/27/24 ferrous gluconate 324 mg (38 mg 324 mg PO DAILY 12/11/23 08/27/24 iron) tablet metformin 1,000 mg tablet 1,000 mg PO BID 12/11/23 08/27/24 omeprazole 40 mg capsule,delayed 40 mg PO BID 12/11/23 08/27/24 release colchicine 0.6 mg tablet 1.8 mg PO DAILY 01/02/24 08/27/24 omalizumab 300 mg/2 mL 300 mg subcut QMONTH 03/05/24 08/27/24 subcutaneous syringe (Xolair) docusate sodium 100 mg capsule 100 mg PO BID PRN constipation 04/16/24 08/27/24 galcanezumab-gnlm 120 mg/mL 120 mg subcut QMONTH 04/16/24 08/27/24 subcutaneous pen injector (Emgality Pen) ipratropium 20 mcg-albuterol 100 1 puff inhalation QID PRN SOB 04/16/24 08/27/24 mcg/actuation mist for inhalation (Combivent Respimat) loperamide 2 mg capsule 4 mg PO DIRECTED 04/16/24 08/27/24 magnesium oxide 400 mg PO DAILY@1200 04/16/24 08/27/24 rizatriptan 10 mg tablet 10 mg PO BID PRN Migraine Headache 04/16/24 08/27/24 prednisone 20 mg tablet 20 - 40 mg PO DAILY PRN familial 04/17/24 08/27/24 Mediterranean fever amiloride 5 mg tablet 10 mg PO DAILY 07/02/24 08/27/24 dulaglutide 1.5 mg/0.5 mL 1.5 mg subcut SA 07/02/24 08/27/24 subcutaneous pen injector (Trulicity) insulin lispro 100 unit/mL See Protocol subcut TIDAC PRN 07/16/24 08/27/24 subcutaneous pen Blood Sugar Spikes norethindrone (contraceptive) 0.35 0.35 mg PO DAILY 07/16/24 08/27/24 mg tablet (Incassia) Previous Rx's ?Medication ?Instructions ?Recorded Patient Own Medication 1 ea PO BEDTIME ##0 07/22/24 Patient Own Medication 1 ea PO BEDTIME ##0 07/22/24 Patient Own Medication 1 ea PO DAILY ##0 07/22/24 Patient Own Medication 1 ea PO DAILY PRN ##0 07/22/24 Patient Own Medication 1 ea PO QID PRN ##0 07/22/24 Patient Own Medication 1 ea subcut Q30D ##0 07/22/24 Patient Own Medication 1 ea subcut Sa ##0 07/22/24 gabapentin 600 mg tablet 600 mg PO TID #90 tabs 07/22/24 hydroxyzine HCl 10 mg tablet 40 mg (4 x 10 mg) PO BEDTIME #30 07/22/24 tabs lamotrigine 200 mg tablet,extended 200 mg PO BEDTIME #30 tabs 07/22/24 release 24 hr lamotrigine 25 mg tablet 50 mg (2 x 25 mg) PO DAILY 30 days 07/22/24 #60 tabs multivitamin (Daily-Enid tablet) 1 tab PO DAILY #0 tabs 07/22/24 oxcarbazepine 600 mg tablet 900 mg (1.5 x 600 mg) PO BID #90 07/22/24 tabs topiramate 50 mg tablet 50 mg PO BID #60 tabs 07/22/24 venlafaxine 25 mg tablet 75 mg (3 x 25 mg) PO BEDTIME #90 07/22/24 tabs Allergies Allergy/AdvReac Type Severity Reaction Status Date / Time adhesive [ADHESIVE] Allergy Intermediate BLISTER Verified 09/30/24 08:51 fluticasone [From FLONASE] Allergy Unknown unknown Verified 09/30/24 08:51 meperidine [Demerol] Allergy Unknown vomit Verified 09/30/24 08:51 metoclopramide [From REGLAN] Allergy Unknown DIPLOPIA Verified 09/30/24 08:51 transparent dressing Allergy Unknown rash Verified 09/30/24 08:51 morphine [MORPHINE] AdvReac Severe NAUSEA & Verified 09/30/24 08:51 VOMITING TEGADERM BANDAGE Allergy Intermediate RASH Uncoded 08/27/24 11:23 morphine Allergy Unknown vomit Uncoded 08/27/24 11:23 tape Allergy Unknown rash Uncoded 08/27/24 11:23 From DEMEROL AdvReac Severe NAUSEA & Uncoded 08/27/24 11:23 VOMITING Review of Systems 2 Review of Systems: All other systems are reviewed and are negative Constitutional: Reports as per HPI and Reports no additional constitutional complaints Eyes: Reports as per HPI and Reports no additional eye complaints Reports system reviewed and no additional complaints, except as documented Cardiovascular: Reports as per HPI and Reports no additional cardiovascular complaints Respiratory: Reports as per HPI and Reports no additional respiratory complaints Gastrointestinal: Reports as per HPI and Reports no additional gastrointestinal complaints Genitourinary: Reports no additional female genitourinary complaints Musculoskeletal: Reports no additional musculoskeletal complaints Skin/Breast: Reports system reviewed and no additional complaints, except as docu Psychiatric: Reports no additional psychiatric complaints Endocrine: Reports no additional endocrine complaints Hematologic/Lymphatic: Reports no additional hematologic/lymphatic complaints Allergic/Immunologic: Reports no additional allergic/immunologic complaints Reports system reviewed and no additional complaints, except as documented and Reports Abnormal speech present PMFSH Past Medical History Medical History Bipolar 1 disorder PTSD (post-traumatic stress disorder) Acute anxiety Depression History of recurrent pneumonia History of Pseudomonas pneumonia Bipolar disorder Menstrual migraine Allergic asthma Dyslipidemia Type 2 diabetes mellitus FMF (familial Mediterranean fever) Primary immunodeficiency disorder Surgical History History of endoscopy (~11/2023) History of ankle surgery History of umbilical hernia repair History of dilation and curettage History of arthroscopy History of oral surgery History of delivery Social History Social History Household Members: Spouse Household Members Other:: , Son Housing: House Do you presently have visiting nurse or other home services: No Alcohol intake: never Patient Tobacco Use Status: Never used Tobacco e-Cigarette/Vaping Use: Never Used Second Hand Smoke Exposure: No Advance Directives: Yes Advance Directives on File: Yes Advance Directives Date on File: 09/30/24 service: No Sexual orientation: Straight/Heterosexual Physical Exam 2 Vital Signs: Vital Signs: Last Vital Signs Temp 98.1 F 09/30/24 09:12 Pulse 81 09/30/24 09:12 Resp 18 09/30/24 09:12 BP 143/100 H 09/30/24 09:12 Pulse Ox 98 09/30/24 09:12 O2 Del Method Room Air 09/30/24 09:12 BMI result Body Mass Index 30.1 Vital signs have been reviewed and appear to be correct. Blood pressure elevated. Heart rate normal. Respiratory rate normal. Temperature normal. Oxygen saturation normal. Appearance: Alert. Oriented X3. No acute distress. Head: Normal external exam. Normocephalic. Atraumatic. No Sánchez signs noted. No raccoon eyes noted Eyes: PERRLA. EOMI. Conjunctiva and sclera normal. Eyelids normal. ENT: TM's Normal. Pharynx normal. Uvula midline. Moist mucous membranes. No trismus noted. No drooling noted. No muffled voice noted. Neck: Normal inspection. Neck supple. FROM. No adenopathy. Thyroid Normal. No meningeal signs. No neck mass noted. CVS: Normal heart rate and rhythm. Heart sound normal. No murmurs noted. Pulses normal throughout. Respiratory: No respiratory distress. Painless inspiration. Breath sounds normal. No wheezes/rales/rhonchi noted. Chest nontender. No accessory muscle usage noted or decreased air movement noted. Abdomen: Soft and nontender. Bowel sounds normal in all 4 quadrants. No distention noted. No organomegaly noted. No visible injury noted. Back: No CVA tenderness. Full range of motion noted. Skin: Skin warm and dry. Normal skin color. Normal skin turgor. No rashes/lesions/lacerations noted. Extremities: No lower extremity edema. Extremities exhibit normal range of motion. Extremities nontender. Neuro: Mental status: Normal attention, orientation, memory, and affect. Cranial nerves: Pupils are equal, round and reactive to light, EOMI, visual frankel are fall, face is symmetric, facial sensations are normal. Motor examination normal muscle tone, strength to 4 extremities. DTR are +2, planter's are flexor. Sensory exam; normal coordination, no ataxia, gait stable. Cerebellar exam: Rkjhod-eu-vcop and srua-dq-zmpx is normal. Extrapyramidal system: No tremors, no rigidity with normal facial expressions. Pronator drift not present Course Reevaluation(s) Reevaluation #1: Negative head CT for a acute bleed, CT angio shows no large visual occlusion, complete resolution of patient's symptoms, patient is not a candidate for TNK. Will administer aspirin and medical admission. Time: 09:51 Medications Administered Discontinued Medications Generic Name Dose Route Start Last Admin Trade Name Freq PRN Reason Stop Dose Admin Iohexol 100 ml 09/30/24 09:06 09/30/24 09:06 Iohexol 350 Mg/Ml 100 Ml Infus..Btl IV 09/30/24 09:07 70 ml ONCE ONE Administration Medical Decision Making Differential Diagnosis Differential Diagnoses: The differential diagnosis associated with the presentation includes ( ischemic stroke, hemorrhagic stroke, TIA, electrolyte derangement, severe anemia, anticoagulation, ACS, dysrhythmia.) Admission/Observation Consideration of admission/observation: Escalation of care including admission/observation considered Consult Healthcare Provider Management of the patient was discussed with: Hospitalist ( Dr. Knight) Lab Data MDM Lab Attestation statement: I reviewed the patient's lab results. 09/30/24 09:05 09/30/24 09:05 Labs: Lab Results 09/30/24 09/30/24 09/30/24 Range/Units 08:37 08:40 09:05 WBC 6.1 (4.8-10.8) X10*3/uL RBC 6.32 H (4.20-5.50) X10*6/uL Hgb 14.3 (12.0-16.0) g/dl Hct 46.4 (37.0-47.0) % MCV 73.4 L (80.0-98.0) fL MCH 22.6 L (27.0-33.0) pg MCHC 30.8 L (31.0-35.0) g/dl RDW 21.8 H (11.0-16.0) % Plt Count 301 (160-400) X10*3/uL MPV 9.5 (9.4-12.3) fL Immature Gran % (Auto) 0.2 (0.0-0.4) % Neut % (Auto) 62.4 (45-73) % Lymph % (Auto) 24.6 (20-40) % [place] % (Auto) 10.2 (2-11) % Eos % (Auto) 1.8 (0-4) % Baso % (Auto) 0.8 (0-2) % Lymph # (Auto) 1.5 (1.2-4.9) X10*3/uL [place] # (Auto) 0.6 (0.1-1.2) X10*3/uL Eos # (Auto) 0.1 (0.0-0.4) X10*3/uL Baso # (Auto) 0.1 (0.0-0.2) X10*3/uL Abs Immat Gran (auto) 0.01 (0.00-0.03) X10*3/uL Absolute Neuts (auto) 3.8 (2.0-8.3) x10*3/uL Absolute Nucleated RBC 0.000 (0.0-0.012) X10*3/uL Nucleated RBC % (auto) 0.0 (0.0-0.2) /100WBC PT 11.1 (10.9-12.4) SEC Whole Blood PT 12.0 (11.1-13.5) sec INR 1.0 (0.9-1.1) Whole Blood INR 1.0 (0.9-1.1) APTT 27.9 (26.0-36.8) SEC Sodium 144 (135-145) mmol/L Potassium 3.7 (3.3-5.1) mmol/L Chloride 114 H (96-108) mmol/L Carbon Dioxide 21 L (22-29) mmol/L Anion Gap 13 (12-20) BUN 9 (9-16) mg/dL Creatinine 0.82 (0.5-1.4) mg/dL Estim Creat Clear Calc 85.5 Estimated GFR > 60 POC Glucose 116 H (60-115) mg/dL Random Glucose 100 (60-115) mg/dL Calcium 9.7 (8.4-10.2) mg/dL Troponin I High Sens < 2.7 (<3.5-17.0) ng/L Triglycerides 299 H (<150) mg/dL Cholesterol 277 H (<200) mg/dL LDL Cholesterol, Calc 175 H (<100) mg/dL HDL Cholesterol 43 (>40) mg/dL Independent Interpretation I performed an independent interpretation of an: CT Scan ( head/ CT angio:No acute intracranial hemorrhage or acute brain abnormality by CT. Status post bilateral inferior ethmoidectomies and medial maxillary antrostomies. ) Radiology Impression Discussion of test interpretation with radiology: I have reviewed the radiologist's reading. NIH Stroke Scale Level of Consciousness: Alert Level of Consciousness Questions: Answers both questions correctly Level of Consciousness Commands: Performs both tasks correctly Best Gaze: Normal Visual: No visual loss Facial Palsy: Normal Motor Arm (Right): No drift Motor Arm (Left): No drift Motor Leg (Right): No drift Motor Leg (Left): No drift Limb Ataxia: Absent Sensory: Normal Best Language: No aphasia Dysarthia: Normal Extinction and Inattention: No abnormality Score: 0 Discharge Plan Discharge Clinical Impression: Brain TIA Patient Disposition: Admitted As Inpatient Instructions: Transient Ischemic Attack (ED) Prescriptions: No Action montelukast 10 mg tablet 1 tab PO QPM omeprazole 40 mg capsule,delayed release(DR/EC) 40 mg PO BID colchicine 0.6 mg tablet 1.8 mg PO DAILY norethindrone (contraceptive) [Incassia] 0.35 mg Tablet 0.35 mg PO DAILY insulin lispro 100 unit/mL insulin pen See Protocol SUBCUT TIDAC PRN (Reason: Blood Sugar Spikes) Protocol: Insulin Correction Scale Less than or equal to 110 ---- Give (units): 0 111 to 150 Give (units): 0 151 to 200 Give (units): 0 201 to 250 Give (units): 2 251 to 300 Give (units): 4 301 to 350 Give (units): 6 Greater than 350 Give (units): 8 Call MD if Blood Glucose > : 350 Rx Instructions: Patient takes while on Prednisone regimens for blood sugar spikes. gabapentin 600 mg Tablet 600 mg PO TID Qty: 90 0RF multivitamin [Daily-Enid] Tablet 1 tab PO DAILY Qty: 0 0RF venlafaxine 25 mg Tablet 75 mg PO BEDTIME Qty: 90 0RF Patient Own Medication 1 ea subcut Q30D Qty: 0 0RF Patient Own Medication 1 ea PO QID PRNQty: 0 0RF Patient Own Medication 1 ea PO BEDTIME Qty: 0 0RF Patient Own Medication 1 ea PO DAILY PRNQty: 0 0RF Patient Own Medication 1 ea subcut Sa Qty: 0 0RF Patient Own Medication 1 ea PO BEDTIME Qty: 0 0RF Patient Own Medication 1 ea PO DAILY Qty: 0 0RF lamotrigine 25 mg Tablet 50 mg PO DAILY 30 Days Qty: 60 0RF oxcarbazepine 600 mg tablet 900 mg PO BID Qty: 90 0RF hydroxyzine HCl 10 mg tablet 40 mg PO BEDTIME Qty: 30 0RF topiramate 50 mg tablet 50 mg PO BID Qty: 60 0RF lamotrigine 200 mg tablet extended release 24hr 200 mg PO BEDTIME Qty: 30 0RF loperamide 2 mg capsule 4 mg PO DIRECTED rizatriptan 10 mg Tablet 10 mg PO BID PRN (Reason: Migraine Headache) Rx Instructions: do not exceed 3 doses per 24 hrs docusate sodium 100 mg capsule 100 mg PO BID PRN (Reason: constipation) Combivent Respimat 20-100 mcg/actuation mist 1 puff INHALATION QID PRN (Reason: SOB) magnesium oxide 400 mg magnesium Tablet 400 mg PO DAILY@1200 Rx Instructions: Take once daily at noon starting on 04/17/24 Emgality Pen 120 mg/mL pen injector 120 mg subcut QMONTH prednisone 20 mg tablet 20 - 40 mg PO DAILY PRN (Reason: familial Mediterranean fever) melatonin 10 mg capsule 10 mg PO BEDTIME PRN (Reason: Insomnia) levothyroxine 50 mcg tablet 50 mcg PO DAILY Zyrtec 10 mg capsule 10 mg PO BID ondansetron HCl 4 mg tablet 4 mg PO Q8H PRN (Reason: Nausea) atorvastatin 40 mg tablet 40 mg PO BEDTIME ferrous gluconate 324 mg (38 mg iron) tablet 324 mg PO DAILY metformin 1,000 mg tablet 1,000 mg PO BID amiloride 5 mg tablet 10 mg PO DAILY Trulicity 1.5 mg/0.5 mL pen injector 1.5 mg subcut SA Xolair 300 mg/2 mL syringe 300 mg subcut QMONTH Print Language: Occitan
[2024-09-30 08:48] VITALS: BP 150/70; PULSE 90; O2SAT 99
[2024-09-30 08:49] VITALS: BMI 30.1
[2024-09-30] MEDS: iohexoL 350 MG/ML 100 ML INFUS..BTL IV (09:06)
[2024-09-30 09:07] LABS: Glucose, Whole Blood 116 mg/dL (60-115)
[2024-09-30 09:11] LABS: MANUAL DIFF FLAG NO
[2024-09-30 09:12] VITALS: BP 143/100; PULSE 81; RESP 18; TEMP 36.7; O2SAT 98
[2024-09-30 09:13] LABS: Basophils Absolute Auto 0.1 X10*3/uL (0.0-0.2); Basophils Percent Auto 0.8 % (0-2); Eosinophils Absolute Auto 0.1 X10*3/uL (0.0-0.4); Eosinophils Percent Auto 1.8 % (0-4); Hematocrit 46.4 % (37.0-47.0); Hemoglobin 14.3 g/dl (12.0-16.0); Imm Gran Abs Auto 0.01 X10*3/uL (0.00-0.03); Imm Gran Pct Auto 0.2 % (0.0-0.4); Lymphocytes Absolute Auto 1.5 X10*3/uL (1.2-4.9); Lymphocytes Percent Auto 24.6 % (20-40); Mean Corpuscular HGB Conc 30.8 g/dl (31.0-35.0); Mean Corpuscular Hemoglobin 22.6 pg (27.0-33.0); Mean Corpuscular Volume 73.4 fL (80.0-98.0); Mean Platelet Volume 9.5 fL (9.4-12.3); Monocytes Absolute Auto 0.6 X10*3/uL (0.1-1.2); Monocytes Percent Auto 10.2 % (2-11); Neutrophils Absolute Auto 3.8 x10*3/uL (2.0-8.3); Neutrophils Percent Auto 62.4 % (45-73); Platelet Count 301 X10*3/uL (160-400); Red Blood Count 6.32 X10*6/uL (4.20-5.50); Red Cell Distribution Width 21.8 % (11.0-16.0); White Blood Count 6.1 X10*3/uL (4.8-10.8)
[2024-09-30 09:19] LABS: Prothrombin Time 11.1 SEC (10.9-12.4)
[2024-09-30 09:21] LABS: Partial Thromboplastin Time 27.9 SEC (26.0-36.8)
[2024-09-30 09:27] LABS: Anion Gap 13 (12-20); Blood Urea Nitrogen 9 mg/dL (9-16); Calcium 9.7 mg/dL (8.4-10.2); Carbon Dioxide 21 mmol/L (22-29); Chloride 114 mmol/L (96-108); Cholesterol 277 mg/dL (<200); Creatinine Clr Calc Pharmacy 85.5; Estimated Glomerular Filt Rate > 60; Glucose Random 100 mg/dL (60-115); HDL Cholesterol 43 mg/dL (>40); LDL Cholesterol Calculated 175 mg/dL (<100); Potassium 3.7 mmol/L (3.3-5.1); Sodium 144 mmol/L (135-145); Triglycerides 299 mg/dL (<150)
[2024-09-30 09:35] LABS: Troponin-I High Sensitivity < 2.7 ng/L (<3.5-17.0)
[2024-09-30 09:50] LABS: Stroke Lab Use COMPLETE
[2024-09-30] MEDS: Aspirin Enteric Coated 81 MG TABLET.DR PO (10:01)
--- OUTSIDE RECORDS SUMMARY | 2024-09-30 10:14 | XMS_ITS | Data Portability ---
Author Organization [place] - [facility], Allergy Address [address] [address] Assessment Encounter Date Assessment Date Assessment LastModified [...] 025 [email or web address], [address], [facility], [place], [address], 12:41:45 Procedures None recorded . Surgeries None recorded . Imaging CT, sinuses, w/o contrast 2023 024 becca Ents Of [facility], [address] [place] [address], [address], 4 10:39:49 Medication Orders budesoni de 0.5 mg/2 mL suspensi on for nebuliza tion 2023 024 [id number], [address] [facility], [place], [address], 10:37:41 Patient TargetsNo targets recorded. Patient InstructionsNo instructions recorded. Reason for Referral Physical Therapist Referral for Pain of left temporomandibular joint Referring Physician: Juanita Vo, Otolaryngology, Encounter Date: 05/23/2024 Results Created Date Observation Date Name Description Value Unit Range Abnormal Flag Note LastModifiedBy Organization Detail LastModifiedTime 10/01/19 CT, sinus es, w/o contr ast No observ ation record ed. evelyn Ents Of [address], [address], 10/01/2023 10:36:08 10/17/19 24 10/01/2023 CT, sinus es, w/o contr ast No observ ation record ed. [email or web address] Of [address], [address], 10/17/2023 12:45:07 01/02/20 24 05/28/2019 imagi ng/di [...] Organization Details Recorded Time Nasal congestio n 97511846 Active 2019 Nasal congestio n; Note: Date Diagnosed : 05/26/2019 1:39 PM (R09.81) Not Available [facility] 02:47:40 Immunodef iciency disorder 027343742 Active 2019 Immunodef iciency, unspecifi ed; Note: Changed from D84 to D84.9 ( 11:21 AM) , Date Diagnosed : 05/26/2019 1:39 PM (D84) Not Available [facility] 4 02:47:43 Sensorine ural hearing loss 04448671 Active 2020 Sensorine ural hearing loss, unilatera l, left ear, with unrestric dariana hearing on the contralat eral side; Note: Date Diagnosed : 01/20/2021 1:26 PM (H90.42) Not Available [facility] 4 02:47:40 Chronic sinusitis 46091335 Active 2020 Sinusitis (chronic) NOS; Note: Date Diagnosed : 1 2:03 PM (J32.9) Not Available [facility] 4 02:47:42 Posterior rhinorrhe a 57976289 Active 2019 Postnasal drip; Note: Date Diagnosed : 05/26/2019 2:03 PM (R09.82) Not Available [facility] 4 02:47:46 Abnormal auditory perceptio n 34102985 Active 2021 Other abnormal auditory perceptio ns, left ear; Note: Date Diagnosed : 10/12/2021 11:06 AM (H93.292) Not Available [facility] 4 02:47:41 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 - [facility] 4 10:16:49 Perennial allergic rhinitis 793810309 Active 2023 LIDYA MINOR MD [address] [facility] [place],[place] [facility], [place], [address] , [place] [facility] [place] 4 10:17:00 Hyperimmu noglobuli n E syndrome 43155345 Active 2023 LIDYA MINOR MD [address] [facility] [place] [address], [place], [address] , [place] [facility] 4 10:17:16 Moderate persisten t asthma 073470632 Active 2023 LIDYA MINOR MD [address] [facility] [place] [address], [place], [address] , [place] [facility] 4 10:17:24 Polyp of nasal cavity 539902293 Active 2023 LIDYA MINOR MD 100 [facility],[place] [address], [place], [address] , [place] [facility] 4 10:36:51 Pain of left temporoma ndibular joint 25759144977 895901 Active 2024 JUANITA VO PA-C 100 [facility],[place] [address], [place], [address] , [place] - [facility] 5 13:37:29 Problem Notes None recorded. Procedures Surgical History Date Name Laterality Status Provider Name and Address Organization Details Recorded Time Air & Speech Audio with Tymps - 86636, 14471 & 62309 completed TAWANNA WEAVER [address] [facility] [place],[place] [facility], [place], [address], [place] [facility] 05/23/2024 13:49:00 JMSNasal/Sinus Endoscopy completed LIDYA URIBE MD [address] [facility] [place],[place] [facility], [place], [address], [place] [facility] 10/01/2023 10:35:41 functional endoscopic sinus surgery completed LIDYA URIBE MD [address], [address], [place] [facility] 09/30/2023 14:24:57 simple extraction of tooth completed LIDYA URIBE MD [address], [address], [place] [facility] 09/30/2023 14:25:15 dilation and curettage completed LIDYA URIBE MD [address] [place] [address], [address], [place] [facility] 09/30/2023 14:26:03 arthroscopy of knee completed LIDYA URIBE MD [address] [place] [address], [address], [place] [facility] 09/30/2023 14:26:15 Imaging Results Imaging Date Name Status LastModified by Organiz [facility] Details LastModified Time 10/01/2023 CT, sinuses, w/o contrast completed evelyn Ents [address], [address], 10/01/2023 10:36:08 10/01/2023 CT, sinuses, w/o contrast completed evelyn [facility] [address], [address], 10/17/2023 12:45:07 05/28/2019 imaging/diagno stic result completed [...] Name and Address Organization Details Recorded Time 263809 Flonase medicatio n other Not available Not available 09/25/2023 33853 RxNorm React ion: unkno wn, unspe cifie d;; Not Available [facility] 4 01:19:32 755814 Demerol medicatio n Not available Not available Not available 10/01/2023 91032 1 RxNorm Serge murphy [place] - [facility] 4 10:10:31 899552 morphine medicatio n Not available Not available Not available 10/01/2023 7052 RxNorm Serge murphy [place] - [facility] 4 10:10:40 Medications Name Sig Start [...] mg tablet 04/26 completed Medicati on ID: [id number] D uration Value: 30 Brand Name: gabapent [...] 10 mg tablet active Medicati on ID: [id number] B rand Name: atorvast atin Sen d [...] 8 mg tablet active Medicati on ID: 973986 B rand Name: ondanset sharon HCl Send [...] mg tablet 05/23 completed Medicati on ID: [id number] D uration Value: 30 Brand Name: benztrop ine Send Method: E-Prescr ibed Sub s Allowed: subs JENNIFER Mays al Instruct ion: TAKE 1/2 TABLET BY MOUTH IN THE MORNING AND 1 TABLET BY MOUTH AT BEDTI SD Medic ationGen ericName : benztrop ine Not [...] elayed release 09/30 completed Medicati on ID: [id number] D uration Value: 90 Brand Name: omeprazo le Send Method: E-Prescr ibed Sub s Allowed: subs [place] Speci al Instruct ion: TAKE ONE CAPSULE BY MOUTH TWICE A DAY Medi cationGe nericNam e: omeprazo le Medic ation ID: [id number] D uration Value: 90 Brand Name: omeprazo [...] mg tablet 04/26 completed Medicati on ID: [id number] D uration Value: 30 Brand Name: folic acid Sen d Method: E-Prescr ibed Sub s Allowed: subs [place] Speci al Instruct ion: TAKE FOUR TABLETS BY MOUTH EVERY DAY [facility] [employer]!Darian nericNam e: folic acid Not Available Not [...] 24 hr 2019 active Medicati on ID: [id number] D uration Value: 30 Brand Name: metformi [...] mg tablet 2019 active Medicati on ID: 261144 D uration Value: 30 Brand Name: lisinopr il Send Method: E-Prescr ibed Sub s Allowed: subs [place] Speci al Instruct ion: TAKE ONE TABLET BY MOUTH EVERY DAY Medi cationGe nericNam e: lisinopr il Not Available Not Available Not Available ipratropi um bromide 21 mcg (0.03 %) nasal spray 2 spray 04/26 completed Medicati on ID: [id number] [place] By Name: Jerome Sauer nd [...] mg tablet 04/26 completed Medicati on ID: [id number] D uration Value: 30 Brand Name: Latuda [...] mg capsule 04/26 completed Medicati on ID: [id number] D uration Value: 30 Brand Name: Vraylar Send Method: E-Prescr ibed Sub s Allowed: subs [place] Speci al Instruct ion: TAKE ONE CAPSULE BY MOUTH EVERY DAY IN THE MORNING Medicati onGeneri cName: Vraylar Medicati on ID: [id number] D uration Value: 30 Brand Name: Vraylar [...] Updated DateTime 10/01/2023 162.56 cm 29 kg/m2 50227.11 g Serge [facility] 10/01/2023 10:14:43 Date Recorded Body height Body mass index (BMI) Body weight Provider Name and Address Organization Details Last Updated DateTime 05/23/2024 162.56 cm 29 kg/m2 27530.11 g Trish Montez [place] - [facility] 05/23/2024 13:23:27 Social History None recorded. Functional Status Question Answer Note LastModified by Organizat ion Details LastModified Time Do you use any illicit or recreational drugs? No [email or web address] Information not available 10/01/2023 Do you or have you ever used any other forms of tobacco or nicotine? No [email or web address] Information not available 10/01/2023 What is your level of alcohol consumption? None Information not available 10/01/2023 Mental Status None recorded. Family History Nothing Reported. Medical History Condition Response Allergies/Hayfever N Heart Problems N Emphysema N Migraines N Thyroid Problems N Glaucoma N Depression Y COPD N Nasal or Sinus Problems N Anemia N Immune System Disorder N Anesthesia Complications N Heart Attack (IA) N Other Skin Condition N Diabetes Y [...] Note 631 LIDYA MINOR MD [facility] [address] [address] 10/01/2023 09:53:23 10/01/2023 10:39:48 Chronic cough 10012500 R05.3 Posterior rhinorrhea 758 57269 R09.82 Perennial allergic rhinitis 937093374 J30.89 Hypogammaglobulinemia 11 9455330 D80.1 Hyperimmun oglobulin E syndrome 49668223 D82.4 Moderate p ersistent asthma 470247009 J45.40 Chronic sinusitis 242302 00 J32.9 Polyp of nasal cavity 73 0378081 J33.0 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 There is evidence of prior sinus surgery with an adhesion on the right side. Bilateral diffuse maxillary sinus thickening noted. Suggest topical steroid irrigation s and follow-up in 3 months. No indication for surgical interventi on at the present time [id number] JUANITA VO PA-C [facility] [address] [address] 05/23/2024 13:20:39 05/23/2024 14:18:31 Pain of left temporomandibular joint 2514200005 3864808 M26.622 Right Ear:Normal hearing with excellent speech discrimina tion.Type A tympanogra m.Left Ear:Normal hearing with excellent speech discrimina tion.Type A tympanogra m. Health Concerns Section Related Observation LastModified by Organization Detai ls LastModified Time None Recorded Concern Status LastModified by Organization Details LastModified Time None Recorded Advance Directives Directive None Recorded Payers Insurance Date Sequence Insurance Name Policy Number Policy Brambila Covered Member ID Brambila Member ID Guarantor Name 06/10/2024 2 [place] [facility] Meredith Garcia [id number] Meredith Garcia 08/08/2024 3 MED[place]ARE B-[place]: [facility] Meredith Garcia [id number] Meredith Garcia 06/10/2024 2 MEDICARE B-[place]: [facility] Meredith Garcia [id number] Meredith Garcai 06/10/2024 1 BCBS-ID:[facility] [id number] Pineda Khanna Radha [id number] Meredith Garcia Notes Date Note Type Note [...] with the scent. LIDYA URIBE MD [address] [place] [address], [place], [address], [facility] - [facility] 10/01/2023 12:13:54 5 text/html 48 year [...] unintentional weight loss . LIDYA URIBE MD [address] [place] [address], [place], [address], [facility] - [facility] 05/23/2024 16:54:36 OBGyn Episode No OBEpisode recorded.
--- OUTSIDE RECORDS SUMMARY | 2024-09-30 10:14 | XMS_ITS | Encounter Summary ---
Author Organization [facility] Address [address] [place] [address] Care Team Providers Care Pharmaceutical Worker Name Role Phone Bernie Aquino Primary Care Provider Encounter Details Date Type Department Care Team (Late st Contact Info) Description 04/12/2021 Orders Only [facility] [address] [place] [address] ProviderCaitlyn MD [address] [place] [address] Social History Tobacco Use Types Packs/Day [...] Description 11/18/2024 10:30 AM EDT Office Visit [facility] [address] [place] [address] Precision Dancer: Adrienne Gutiérrez MD [address] [place] [address] documented as of this encounter Procedures * Due to [place] state law, this organization might not be sharing negative HIV tests. Procedure Name Priority Date/Time Associated Diagnosis Comments AMB EXTERNAL CT HEAD, OUTSID E RESULT Routine 03/15/2021 documented in this encounter Results * Due to [place] [employer] law, this organization might not be sharing negative HIV tests. * CT Head, Outside Result (03/15/2021) Anatomical Region Laterality Modality Other us Unknown Provider MD JEFFERSON EXTERNAL RESULT PROCEDUR ES Final Result documented in this encounter Visit Diagnoses Not on filedocumented in this encounter Care Teams Pharmaceutical Worker Relationship Specialty Start Date End Date Bernie Aquino [address] [place] [address] PCP - General 08/22/21 documented as of this encounter
--- OUTSIDE RECORDS SUMMARY | 2024-09-30 10:14 | XMS_ITS | Clinical Summary ---
Author Organization [facility] Address [address] [facility] [address] [place] [address] Phone Care Team Providers Care Data Communications Technician Name Role Phone Unavailable Primary Care Provider [...] to 49 Years) (3 of 3 - PCV20 or PCV21) 12/19/2014 05/13/2014, 12/19/2009 Diabetes: Hemoglobin A1C 12/05/2021 Diabetes: Pedal Pulse Checked 12/05/2021 Diabetes: Sensory Foot Exam 12/05/2021 Diabetes: Visual Foot Exam 12/05/2021 Diabetes: Ophthalmology Exam 07/01/2022 07/01/2021 Influenza Vaccine (Season Ended) 2025 01/05/2012, 01/23/2011, 02/16/2010, Additional history exists Pneumococcal Vaccine: 50+ Years Discontinued 4, 12/19/2009 Insurance Medicare [facility] Medicare [facility]
--- OUTSIDE RECORDS SUMMARY | 2024-09-30 10:14 | XMS_ITS | Encounter Summary ---
Author Organization [facility] Address [address] [place] [address] Care Team Providers Care Overlock Collar Setter Name Role Phone MilesTristenca Primary Care Provider [phone] Reason for Visit * Reason Onset Date Comments Reschedule 10/18/2021 Encounter Details Date Type Department Care Team (Late st Contact Info) Description 10/18/2021 Telephone [facility] Central Scheduling Department [address] [place] [address] Telephone Intake, Staff Reschedule Social History Tobacco [...] pls follow up with pt to coordinate [phone] documented in this encounter Plan of Treatment Upcoming Encounters Date Type Department Care Team (Late st Contact Info) Description 11/18/2024 10:30 AM EDT Office Visit [facility] [address] [place] [address] Life Consultant: Adrienne Gutiérrez MD [address] [place] [address] documented as of this encounter Visit Diagnoses Not on filedocumented in this encounter Care Teams Overlock Collar Setter Relationship Specialty Start Date End Date Bernie Aquino [address] [place] [address] PCP - General 08/22/21 documented as of this encounter
--- OUTSIDE RECORDS SUMMARY | 2024-09-30 10:14 | XMS_ITS | Encounter Summary ---
Author Organization [facility] Address [address] [place] [address] Care Team Providers Care Geotechnical Engineer Name Role Phone Bernie Aquino Primary Care Provider [phone] Encounter Details Date Type Department Care Team (Late st Contact Info) Description 09/05/2024 IdenIve Message [facility] Financial Clearance Department [address] [place] [address] [employer], Generic Provider [address] [place] [address] Prescritption PA Social History Tobacco Use Types [...] Description 11/18/2024 10:30 AM EDT Office Visit [facility] [address] [place] [address] Cured Meats Supervisor: Adrienne Gutiérrez MD [address] [place] [address] documented as of this encounter Visit Diagnoses Not on filedocumented in this encounter Care Teams Geotechnical Engineer Relationship Specialty Start Date End Date Bernie Aquino [address] [place] [address] PCP - General 08/22/21 documented as of this encounter
--- OUTSIDE RECORDS SUMMARY | 2024-09-30 10:14 | XMS_ITS | Data Portability ---
Author Organization [place] [facility] Address [address] [place] [phone] Assessment Encounter Date Assessment Date Assessment LastModified [...] recorded. Lab culture, urine - [facility] 2018 019 [facility] [employer] [facility] (Centralized Electronic Ordering - All Locations), Patient Can Go To The Location Of Their Choice, [id number] 9 10:09:39 CBC w/ auto diff 2018 019 [employer] [employer] [facility] (Centralized Electronic Ordering - All Locations), Patient Can Go To The Location Of Their Choice, [id number] 9 01:55:55 urinalysis, dipstick 2018 019 [employer] [facility] - Home, [address] [place], [address], 9 13:13:26 BMP + ionized calcium, serum or plasma 2018 019 [employer] [facility] - Home, [address] [place], [address], 9 13:13:26 Referral None recorded. Procedures None recorded. Surgeries None recorded. Imaging None recorded. Medication Orders None recorded. Patient TargetsNo targets recorded. Patient Instructions Encounter Date Encounter Id Patient Instructions Last Modified By Organization Details Last Modified Time 02/03/2019 [id number] YOU WERE SEEN FO R FLANK PAIN [...] MANAGEMENT Thank you for your visit with [facility] today. We cannot always [...] in your condition between 8am-10pm, please [facility] at [phone] to help navigate your care. Renal Colic [...] extra Tylenol/Acetaminop hen if you are taking [place]man/Vicodin/Perc ocet. Depending on the location of your [...] condition between 8am-10pm, please call [facility] at [phone] to help navigate your care. [email or web address] Not available 02/03/2019 13:14:24 Reason for Referral None Reported. Results Created Date Observation Date Name Description Value Unit Range Abnormal Flag Note LastModifiedBy Organization Detail LastModifiedTime 02/04/20 19 02/03/2019 BMP + ioniz ed calci um, serum or plasm a Na 143 mmol/ L 138-14 6 Not Available Spr - Home [address] [place], [address], 02/03/2019 12:56:51 02/04/2002/03/2019 BMP + ioniz ed calci um, serum or plasm a K 3.7 mmol/ L 3.5-4. 9 Not Available Spr - Home [address] [place], [address], 02/03/2019 12:56:51 02/04/2002/03/2019 BMP + ioniz ed calci um, serum or plasm a cL 108 mmol/ L 98-109 Not Available Spr - Home [address] [place], [address], 02/03/2019 12:56:51 02/04/2002/03/2019 BMP + ioniz ed calci um, serum or plasm a ica 1.30 mmol/ L 1.12-1 .32 Not Available Spr - Home [address] [place], [address], 02/03/2019 12:56:51 02/04/2002/03/2019 BMP + ioniz ed calci um, serum or plasm a TCO2 22 mmol/ L 24-29 Not Available Spr - Home [address] [place], [address], 02/03/2019 12:56:51 02/04/2002/03/2019 BMP + ioniz ed calci um, serum or plasm a glu 99 mg/dL 70-105 Not Available Spr - Home [address] [place], [address], 02/03/2019 12:56:51 02/04/2002/03/2019 BMP + ioniz ed calci um, serum or plasm a BUN 18 mg/dL 8-26 Not Available Spr - Home [address] [place], [address], 02/03/2019 12:56:51 02/04/2002/03/2019 BMP + ioniz ed calci um, serum or plasm a crea 0.9 mg/dL .6-1.3 Not Available Spr - Home [address] [place], [address], 02/03/2019 12:56:51 02/04/2002/03/2019 BMP + ioniz ed calci um, serum or plasm a HCT 38 %_pcv 38-51 Not Available Spr - Home [address] [place], [address], 02/03/2019 12:56:51 02/04/2002/03/2019 BMP + ioniz ed calci um, serum or plasm a Hb 12.9 g/dL 12-17 Not Available Spr - Home [address] [place], [address], 02/03/2019 12:56:51 02/04/2002/03/2019 BMP + ioniz ed calci um, serum or plasm a angap 17 mmol/ L 10-20 Not Available Spr - Home [address] [place], [address], 02/03/2019 12:56:51 02/04/2002/03/2019 urina lysis , dipst ick Appearance clear Not Available Spr - H [place]me [address] [place], [address], 02/03/2019 12:44:42 02/04/2002/03/2019 urina lysis , dipst ick Color light yellow Not Available Spr - Home [address] [place], [address], 02/03/2019 12:44:42 02/04/2002/03/2019 urina lysis , dipst ick Glucose negati ve Not Available Spr - Home [address] [place], [address], 02/03/2019 12:44:42 02/04/2002/03/2019 urina lysis , dipst ick Bilirubin negati ve Not Available Spr - Home [address] [place], [address], 02/03/2019 12:44:42 02/04/2002/03/2019 urina lysis , dipst ick Ketones NEG Not Available Spr - Home [address] [place], [address], 02/03/2019 12:44:42 02/04/2002/03/2019 urina lysis , dipst ick Sp. [place] 1.010 Not Available Spr - Home [address] [place], [address], 02/03/2019 12:44:42 02/04/2002/03/2019 urina lysis , dipst ick Blood NEG Not Available Spr - Home [address] [place], [address], 02/03/2019 12:44:42 02/04/2002/03/2019 urina lysis , dipst ick pH 6.0 Not Available Spr - Home [address] [place], [address], 02/03/2019 12:44:42 02/04/2002/03/2019 urina lysis , dipst ick Protein negati ve Not Available Spr - Home [address] [place], [address], 02/03/2019 12:44:42 02/04/2002/03/2019 urina lysis , dipst ick Urobilirubin negati ve Not Available Spr - Home [address] [place], [address], 02/03/2019 12:44:42 02/04/2002/03/2019 urina lysis , dipst ick Nitrites NEG Not Available Spr - Tal e [address] [place], [address], 02/03/2019 12:44:42 02/04/2002/03/2019 urina lysis , dipst ick Leukocytes ++ Not Available Spr - H ome [address] [place], [address], 02/03/2019 12:44:42 02/04/2002/04/2019 CBC w/ auto diff [...] Go To The Location Of Their Choice, [id number] 02/05/2019 10:09:39 02/04/20 19 02/05/2019 cultu re, urine report status FINAL 2018 Not Available [facility] (Centralized Electronic Ordering - All Locations) Patient Can Go To The Location Of Their Choice, [address] 02/05/2019 10:09:39 Result Notes None recorded. Procedures Surgical History Date Name Laterality Status Provider Name and Address Organization Details Recorded Time 02/04/20 19 Venipuncture - DH completed ROMY SHOOK [address], [place], [address], [place] [facility] 02/05/2019 23:27:28 Imaging Results None recorded. Procedure Notes None recorded. Medical Equipment None Reported. Allergies Allergen ID Allergen Name Allergen Category Reaction Reaction Severity Criticality Documentation Date Start Date Code Code System Note Provider Name and Address Organization Details Recorded Time 71765 Demerol medicatio n Not available Not available Not available 02/03/2019 62772 1 RxNorm ROMY SHOOK [address] [place], [address], [place] [facility] 9 12:37:19 08842 morphine medicatio n Not available Not available Not available 02/03/2019 7052 RxNorm ROMY SHOOK [address], [place], [address], [place] [facility] 9 12:37:29 22866 Reglan medicatio n Not available Not available Not available 02/03/2019 9230 RxNorm ROMY SHOOK [address], [place], [address], [place] [facility] 9 12:37:40 43191 Flonase medicatio n Not available Not available Not available 02/03/2019 89635 RxNorm ROMY SHOOK [address], [place], [address], [place] [facility] 9 [...] /min 108 mm[Hg] 76 mm[Hg] Not Available [facility] 9 12:43:08 Social History Question Answer Notes LastModified by Organizat ion Details LastModified Time Tobacco Smoking Status Never Smoker ROMY SHOOK [address] [place], [address], [place] [facility] 02/03/2019 12:40:20 How Many [...] Artery Disease N Depression Y COPD N Cancer N Stroke Y High Cholesterol Y Kidney Disease N Diabetes Y Asthma Y Pulmonary Embolism N Hypertension N Gynecological HistoryNo gynecological history recorded. Obstetrics History GPAL:G 0 P 0 0 0 0 Past Encounters Encounter ID Performer Location Encounter Start Date Encounter Closed Date Diagnosis/Indication Diagnosis SNOMED-CT Code Diagnosis ICD10 Code Diagnosis Note [id number] ROMY SHOOK [facility] - HOME [address] [place] [address] 02/03/2019 12:35:06 02/05/2019 11:44:06 Right flank pain 585158734 R10.9 Acute urin dunia tract infection 733493497 N39.0 History of calculus of kidney 894492754 Z87.442 Primary im mune deficiency disorder 32661486 D84.9 Health Concerns Section Related Observation LastModified by Organization Detai ls LastModified Time None Recorded Concern Status LastModified by Organization Details LastModified Time None Recorded Advance Directives Directive None Recorded Payers Insurance Date Sequence Insurance Name Policy Number Policy Brambila Covered Member ID Brambila Member ID Guarantor Name 02/06/2019 2 MEDICARE [place]: [facility] Meredith Garcia [id number] Meredith Garcia 02/06/2019 1 [facility] Meredith Garcia [id number] Meredith Arreguins 04/28/2020 2 MEDICARE [place]: [facility] Meredith Garcia [id number] Meredith Garcia 02/06/2019 1 [facility] Meredith Garcia [id number] Meredith Arreguins 04/28/2020 1 [facility] [id number] Meredith Garcia [id number] Meredith Garcia 02/06/2019 1 *SELF PAY* Meredith Garcia [id number] Meredith Garcia Notes Date Note Type Note [...] primary immunodeficiency; migraines ROMY SHOOK [address] [place], [address], [place] [facility] 02/05/2019 23:27:34 OBGyn Episode No OBEpisode recorded.
--- OUTSIDE RECORDS SUMMARY | 2024-09-30 10:14 | XMS_ITS | Encounter Summary ---
Author Organization [facility] Address [address] [place] [address] Phone Care Team Providers Care Wellness Program Manager Name Role Phone Unavailable Primary Care Provider Unavailabl e Encounter Details Date Type Department Care Team (Late st Contact Info) Description 07/05/2022 Telephone [facility] [address] [place] [address] Julee Stephens MA Social History [...] you to know the orders are at [facility]. documented in this encounter Plan of Treatment Not on file documented as of this encounter Visit Diagnoses Not on filedocumented in this encounter
--- OUTSIDE RECORDS SUMMARY | 2024-09-30 10:14 | XMS_ITS | Encounter Summary ---
Author Organization [facility] Address [address] [place] [address] Care Team Providers Care Library Consultant Name Role Phone Bernie Aqiuno GAS ENGINE OPERATOR Primary Care Provider [phone] Encounter Details Date Type Department Care Team (Late st Contact Info) Description 09/26/2024 Telephone Gastroenterology - [address] [place] [phone] Merly Lyons MA Social History Tobacco Use [...] Progress Notes * Merly Lyons MA - 09/26/2024 12:35 PM EDT SPOKE WITH PT CAPSULE 10/09/24 AT 715 AM . MAILED/ MY CHART PREP INSTRUCTIONS. documented in this encounter Plan of Treatment Upcoming Encounters Date Type Department Care Team (Late st Contact Info) Description 10/07/2024 8:00 AM EDT Appointment [address] [address] 10/09/2024 7:15 AM EDT Clinical Support Gastroenterology - [address] [place] [address] 10/09/2024 11:45 AM EDT Treatment [facility] Speech Therapy [address] [facility] [address] [place] [phone] Jessica Hull, POLICY INTERN 10/22/2024 9:30 AM EDT Appointment [facility] [address] [address] 12/22/2024 10:30 AM EDT Office Visit Gastroenterology - [address] [place] [address] Leif Burciaga PA [address] [place] [address] documented as of this encounter Goals Goal Patient Goal Type Associated Problems Recent Progress Patient-Stated? Author POLICY INTERN LTG General No Jessica Hull, POLICY INTERN Note: Pt will improve cognitive linguistic function to participate and communicate in iADLs mod I POLICY INTERN STGs General No Jessica Hull, POLICY INTERN Note: Pt will participate with development of [...] on filedocumented in this encounter Care Teams Library Consultant Relationship Specialty Start Date End Date Bernie Aquino, GAS ENGINE OPERATOR [address] [facility] [address] PCP - General Family Medicine 10/05/21 documented as of this encounter
--- OUTSIDE RECORDS SUMMARY | 2024-09-30 10:14 | XMS_ITS | Encounter Summary ---
Author Organization [facility] Address [address] [place] [address] Care Team Providers Care Criminal Justice Teacher Name Role Phone Bernie Aquino Primary Care Provider [phone] Encounter Details Date Type Department Care Team (Late st Contact Info) Description 04/05/2020 Documentation [facility] Building [address] [place] [address] Rafaela Pedro CPhT Social History Tobacco Use [...] Description 11/18/2024 10:30 AM EDT Office Visit [facility] [address] [place] [address] Floor Covering Installer: Adrienne Gutiérrez MD [address] [place] [address] documented as of this encounter Visit Diagnoses Not on filedocumented in this encounter Care Teams Criminal Justice Teacher Relationship Specialty Start Date End Date Bernie Aquino [address] [place] [address] PCP - General 08/22/21 documented as of this encounter
--- OUTSIDE RECORDS SUMMARY | 2024-09-30 10:14 | XMS_ITS | Encounter Summary ---
Author Organization [facility] Address [address] [place] [address] Care Team Providers Care Radio Rigger Name Role Phone MilesTristenca Primary Care Provider [phone] Encounter Details Date Type Department Care Team (Late st Contact Info) Description 11/21/2021 Telephone [facility] [address] [place] [address] Telephone Intake, Staff Social History Tobacco Use [...] to book it. Please call patient at [phone]. documented in this encounter Plan of Treatment Upcoming Encounters Date Type Department Care Team (Late Contact Info) Description 11/18/2024 10:30 AM EDT Office Visit [facility] [address] [place] [address] [place] Program Manager: Adrienne Gutiérrez MD [address] [place] [phone] documented as of this encounter Visit Diagnoses Not on filedocumented in this encounter Care Teams Radio Rigger Relationship Specialty Start Date End Date Bernie Aquino [address] [place] [address] PCP - General 08/22/21 documented as of this encounter
--- OUTSIDE RECORDS SUMMARY | 2024-09-30 10:14 | XMS_ITS | Clinical Summary ---
Author Organization [facility] Address [address] [place] [address] Care Team Providers Care Program Control Analyst Name Role Phone Bernie Aquino Primary Care Provider [phone] Allergies Active Allergy Reactions Criticality Noted Date [...] Department Care Team Description 09/05/2024 myChart Message [facility] Financial Clearance Department [address] [place] [address] Mychart, Generic Provider Prescritption PA 09/04/2024 Orders Only [facility] [address] [place] [address] Rajesh Black NP 09/04/2024 Telephone [facility] [address] [place] [address] Museum Registrar: Bernie Huitron LPN 08/07/2024 Documentation [facility] Building [address] [place] [address] Marcell Shen CPhT Prior Authorization ([place] for Emgality 120mg/ml pen Injector, #06/10, through [employer] [PA# [id number]]. Effective 07/12/24 - 08/06/25. May fill with [facility], $4.80 copay/) 08/07/2024 Documentation [facility] Building [address] [place] [address] Marcell Shen CPhT Prior Authorization ([place] Nurtec ODT 75mg, #, through [employer] [PA# [id number]]. Effective 07/12/24 - 08/06/25. May fill with [facility], $4.80 copay/) 08/06/2024 Telephone [facility] [address] [place] [address] Rajesh Black NP 08/05/2024 1:00 PM EDT Office Visit [facility] [address] [place] [address] Museum Registrar: Rajesh Echevarria NP Intractable migraine with aura without status migrainosus (Primary Dx); Chronic migraine without aura without status migrainosus, not intractable 07/29/2024 Orders Only [facility] [address] [place] [address] Museum Registrar: Caitlyn Sanchez MD 07/28/2024 Telephone [facility] [address] [place] [address] Museum Registrar: Sari Workman Telephone Intake, Staff PAC Patient Request Call Back; PAC Appt Request - Established from Last 3 Months Family History Medical [...] Description 11/18/2024 10:30 AM EDT Office Visit [facility] [address] [place] [address] Museum Registrar: Adrienne Gutiérrez MD [address] [place] [address] Health Maintenance Due Date Last Done [...] Screening Completed 05/29/2024 Procedures * Due to [place] [employer] law, this organization might not be sharing negative HIV tests. Procedure Name Priority Date/Time Associated Diagnosis Comments IMAGING - SCANNED Routine 07/29/2024 8:5 8 AM EDT COMPREHENSIVE METABOLIC PANEL Routine 04/20/2023 9:56 AM EST Chronic migraine without aura without status migrainosus, not intractable HM DIABETES EYE EXAM 11/10/2021 from Last 3 Months or Most Recently Relevant to Health Maintenance Results * Due to [place] [employer] law, this organization might not be sharing negative HIV tests. * IMAGING - SCANNED (07/29/2024 8:58 AM EDT) Anatomical Region Laterality Modality Other us Unknown Provider MD SCANNED PROCEDURES Final Res ult * (ABNORMAL) Comprehensive Metabolic Panel (04/20/2023 9:56 AM EST) NA 141 135 - 145 mmol/L 04/20/2023 11:01 AM [facility] K 3.6 3.5 - 5.3 mmol/L 04/20/2023 11:01 AM [facility] Cl 107 97 - 110 mmol/L 04/20/2023 11:01 AM [facility] CO2 21(L) 24 - 32 mmol/L 04/20/2023 11:01 AM [facility] Anion Gap 13 5 - 15 04/20/2023 11:01 AM [facility] Glucose 139(H) 70 - 99 mg/dL 04/20/2023 11:01 AM [facility] Creatinine 0.89 0.50 - 1.20 mg/dL 04/20/2023 11:01 AM [facility] Calcium 9.1 8.7 - 10.7 mg/dL 04/20/2023 11:01 AM [facility] Total Protein 7.1 6.0 - 8.0 g/dL 04/20/2023 11:01 AM [facility] Albumin 4.4 3.5 - 4.8 g/dL 04/20/2023 11:01 AM [facility] Bilirubin, Total 0.2(L) 0.3 - 1.2 mg/dL 04/20/2023 11:01 AM [facility] Alkaline Phosphatase 115 30 - 115 U/L 04/20/2023 11:01 AM [facility] AST 14 10 - 40 U/L 04/20/2023 11:01 AM [facility] ALT 19 10 - 40 U/L 04/20/2023 11:01 AM [facility] BUN 19 7 - 23 mg/dL 04/20/2023 11:01 AM [facility] eGFR 81 >=60 mL/min/1. 73m2 04/20/2023 11:01 AM EST [facility] Comment:The estimated glomer ular [...] MD LAB BLOOD ORDERABLES Final R esult [facility] [address] [place] [address], [place] * DIABETES EYE EXAM (11/10/2021) 11/10/2021 us Onbase Scan [facility] Final Resu lt from Last 3 Months or Most Recently Relevant to Health Maintenance Insurance MEDICARE [facility] Advance Directives Documents on File Type Date Recorded Patient Station Mechanic Expl [facility] Care Proxy 02/14/2017 2:27 PM Care Teams Program Control Analyst Relationship Specialty Start Date End Date Bernie Aquino [address] [place] [address] PCP - General 08/22/21
--- OUTSIDE RECORDS SUMMARY | 2024-09-30 10:14 | XMS_ITS | Encounter Summary ---
Author Organization [facility] Address [address] [place] [address] Care Team Providers Care Medical Laboratory Technologist Name Role Phone MilesTristenca Primary Care Provider [phone] Reason for Visit * Reason Onset Date Comments migraines 03/29/2021 Encounter Details Date Type Department Care Team (Late st Contact Info) Description 03/29/2021 Telephone [facility] Central Scheduling Department [address] [place] [address] Telephone Intake, Staff migraines Social History Tobacco [...] encounter Miscellaneous Notes * Telephone Encounter - Kelyl Castro - 03/29/2021 8:21 AM EST Neuro [...] Description 11/18/2024 10:30 AM EDT Office Visit [facility] [address] [place] [address] Clinical Safety Specialist: Adrienne Gutiérrez MD [address] [place] [address] documented as of this encounter Visit Diagnoses Not on filedocumented in this encounter Care Teams Medical Laboratory Technologist Relationship Specialty Start Date End Date Bernie Aquino [address] [place] [address] PCP - General 08/22/21 documented as of this encounter
--- OUTSIDE RECORDS SUMMARY | 2024-09-30 10:14 | XMS_ITS | Referral Summary ---
Author Organization [facility] Address [address] [place] [address] Care Team Providers Care Ultrasonic Welding Machine Operator Name Role Phone Bernie Aquino Primary Care Provider [phone] Encounters Date Type Department Care Team Description 09/05/2024 myChart Message [facility] Financial Clearance Department [address] [place] [phone] Mychart, Generic Provider Prescritption PA 09/04/2024 Orders Only [facility] Building Neurology Clinic [address] [place] [phone] Rajesh Black NP 09/04/2024 Telephone [facility] [address] [place] [phone] Roll Press Operator: Bernie Huitron LPN 08/07/2024 Documentation [facility] Special[facility] Building [address] [place] [address] Marcell Shen CPhT Prior Authorization ([place] for Emgality 120mg/ml pen Injector, #06/10, through [employer] [PA# [id number]]. Effective 07/12/24 - 08/06/25. May fill with [facility], $4.80 copay/) 08/07/2024 Documentation [facility] [address] [place] [phone] Spinola, Marcell, laser engineer Prior Authorization ([place] Nurtec ODT 75mg, #16/, through [employer] [ROMY# [id number]]. Effective 07/12/24 - 08/06/25. May fill with [facility], $4.80 copay/) 08/06/2024 Telephone [facility] [address] [place] [phone] Rajesh Black NP 08/05/2024 1:00 PM EDT Office Visit [facility] [address] [place] [phone] Roll Press Operator: Rajesh Echevarria NP Intractable migraine with aura without status migrainosus (Primary Dx); Chronic migraine without aura without status migrainosus, not intractable 07/29/2024 Orders Only [facility] [address] [place] [phone] Roll Press Operator: Sari Workman Provider, MD Caitlyn 07/28/2024 Telephone [facility] [address] [place] [phone] Roll Press Operator: Sari Workman Telephone Intake, Staff PAC Patient Request Call Back; PAC Appt Request - Established from Last 3 Months Allergies Active Allergy [...] a migraine headaches ,). 8 tablet 2 03/25/20 25 Active rizatriptan (MAXALT) 10 mg tablet Take [...] Description 11/18/2024 10:30 AM EDT Office Visit [facility] [address] [place] [address] Roll Press Operator: Adrienne Gutiérrez MD [address] [place] [phone] Procedures * Due to [place] [employer] law, this organization might not be sharing negative HIV tests. Procedure Name Priority Date/Time Associated Diagnosis Comments IMAGING - SCANNED Routine 07/29/2024 8:5 8 AM EDT COMPREHENSIVE METABOLIC PANEL Routine 04/20/2023 9:56 AM EST Chronic migraine without aura without status migrainosus, not intractable HM DIABETES EYE EXAM 11/10/2021 from Last 3 Months or Most Recently Relevant to Health Maintenance Results * Due to [place] [employer] [employer] law, this organization might not be sharing negative HIV tests. * IMAGING - SCANNED (07/29/2024 8:58 AM EDT) Anatomical Region Laterality Modality Other us Unknown Provider SCANNED PROCEDURES Final Res ult * (ABNORMAL) Comprehensive Metabolic Panel (04/20/2023 9:56 AM EST) NA 141 135 - 145 mmol/L 04/20/2023 11:01 AM EST [facility] K 3.6 3.5 - 5.3 mmol/L 04/20/2023 11:01 AM EST [facility] Cl 107 97 - 110 mmol/L 04/20/2023 11:01 AM EST [facility] CO2 21(L) 24 - 32 mmol/L 04/20/2023 11:01 AM EST [facility] Anion Gap 13 5 - 15 04/20/2023 11:01 AM EST [facility] Glucose 139(H) 70 - 99 mg/dL 04/20/2023 11:01 AM EST [facility] Creatinine 0.89 0.50 - 1.20 mg/dL 04/20/2023 11:01 AM EST [facility] Calcium 9.1 8.7 - 10.7 mg/dL 04/20/2023 11:01 AM EST [facility] Total Protein 7.1 6.0 - 8.0 g/dL 04/20/2023 11:01 AM EST [facility] Albumin 4.4 3.5 - 4.8 g/dL 04/20/2023 11:01 AM [facility] Bilirubin, Total 0.2(L) 0.3 - 1.2 mg/dL 04/20/2023 11:01 AM EST [facility] Alkaline Phosphatase 115 30 - 115 U/L 04/20/2023 11:01 AM EST [facility] AST 14 10 - 40 U/L 04/20/2023 11:01 AM EST [facility] ALT 19 10 - 40 U/L 04/20/2023 11:01 AM EST [facility] BUN 19 7 - 23 mg/dL 04/20/2023 11:01 AM EST [facility] eGFR 81 >=60 mL/min/1. 73m2 04/20/2023 11:01 AM EST [facility] Comment:The estimated glomer ular [...] MD LAB BLOOD ORDERABLES Final R esult [facility] [address] [place] [address], * DIABETES EYE EXAM (11/10/2021) 11/10/2021 us Onbase Scan [facility] Final Resu lt from Last 3 Months or Most Recently Relevant to Health Maintenance Insurance MEDICARE [facility] Advance Directives Documents on File Type Date Recorded Patient Restaurant Crew Member Expl [facility] Care Proxy 02/14/2017 2:27 PM Care Teams Ultrasonic Welding Machine Operator Relationship Specialty Start Date End Date Bernie Aquino [address] [place] [phone] PCP - General 08/22/21
--- OUTSIDE RECORDS SUMMARY | 2024-09-30 10:14 | XMS_ITS | Clinical Summary ---
Author Organization [facility] Address [address] [place] [address] Care Team Providers Care Home Teaching Grades 7 And 8 Teacher Name Role Phone Bernie Aquino EDUCATION REP Primary Care Provider [phone] Allergies Active Allergy Reactions Criticality Noted Date [...] age to complete this topic Care Teams Home Teaching Grades 7 And 8 Teacher Relationship Specialty Start Date End Date Bernie Aquino, EDUCATION REP [address] [facility] [place] [address] PCP - General Family Medicine 10/05/21
--- OUTSIDE RECORDS SUMMARY | 2024-09-30 10:15 | XMS_ITS | Encounter Summary ---
Author Organization [facility] Address [address] [place] [address] Care Team Providers Care Aeronautical Engineering Technologist Name Role Phone Bernie Aquino [employer] Primary Care Provider Encounter Details Date Type [...] Info) Description 10/07/2024 8:00 AM EDT Appointment [facility] [address] [address] 10/09/2024 7:15 AM EDT Clinical Support Gastroenterology - [address] [address] 10/09/2024 11:45 AM EDT Treatment [facility] Speech Therapy [address] [facility] [address] [place] [address] Jessica Hull, ELECTRICAL ELECTRONICS ENGINEERS 10/22/2024 9:30 AM EDT Appointment [facility] [address] [phone] 12/22/2024 10:30 AM EDT Office Visit Gastroenterology - [address] [phone] Leif Burciaga PA [address] [address] documented as of this encounter Goals Goal Patient Goal Type Associated Problems Recent Progress Patient-Stated? Author ELECTRICAL ELECTRONICS ENGINEERS LTG General No Jessica Hull, ELECTRICAL ELECTRONICS ENGINEERS Note: Pt will improve cognitive linguistic function to participate and communicate in iADLs mod I ELECTRICAL ELECTRONICS ENGINEERS STGs General No Jessica Hull, ELECTRICAL ELECTRONICS ENGINEERS Note: Pt will participate with development of [...] documented as of this encounter Care Teams Aeronautical Engineering Technologist Relationship Specialty Start Date End Date Bernie Aquino, XIANG [address] [facility] [place] [address] PCP - General Family Medicine 10/05/21 documented as of this encounter
--- OUTSIDE RECORDS SUMMARY | 2024-09-30 10:15 | XMS_ITS | Encounter Summary ---
Author Organization [facility] Address [address] [place] [address] Phone Care Team Providers Care Tanbark Laborer Name Role Phone Unavailable Primary Care Provider Unavailabl e Encounter Details Date Type Department Care Team (Late st Contact Info) Description 01/02/2022 Telephone [facility] [address] [place] [address] Neto Cunningham MD Social History [...] on this issue. Has appt 01/10 in [place] office * Telephone Encounter - Alta Young [...] er visits. Please advise Thank you CB# [phone] documented in this encounter Plan of Treatment Not on file documented as of this encounter Visit Diagnoses Not on filedocumented in this encounter
--- OUTSIDE RECORDS SUMMARY | 2024-09-30 10:15 | XMS_ITS | Encounter Summary ---
Author Organization [facility] Address [address] [place] [address] Phone Care Team Providers Care Sheet Cutter Name Role Phone Unavailable Primary Care Provider Unavailabl e Encounter Details Date Type Department Care Team (Late st Contact Info) Description 01/25/2022 Telephone [facility] [address] [place] [address] Neto Cunningham MD Social History [...]
--- OUTSIDE RECORDS SUMMARY | 2024-09-30 10:15 | XMS_ITS | Clinical Summary ---
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 Name Role Phone Bernie Aquino TRIMMING INSPECTOR Primary Care Provider [phone] Allergies Active Allergy Reactions Criticality Noted Date [...] reaction(s): Other (see comments) Diarrhea Diarrhea Diarrhea Benzethonium Chloride 11/08/2021 Cat Dander Other 07/01/2021 Meperidine Nausea And Vomiting High 03/15/2024 Fluticasone Headache Low 03/15/2024 Fluorouracil-Adhesive Bandage Other 07/01/2021 Methylphenidate 01/06/2022 Metoclopramide Dizziness,Vision Problem,Other High 05/16/2018 Other reaction(s): Dizziness, double vision Other reaction(s): double vision Other reaction(s): Dizziness, double vision Morphine Nausea And Vomiting High 03/15/2024 Nsaids (Non-Steroidal Anti-Inflammatory Drug) Other High 04/10/2024 CKD Other Low 07/01/2021 Pt allergic to cat hair Metoclopramide Hcl Vision Problem Medium 03/15/2024 Medications oxyCODONE (ROXICODONE) 5 mg immediate release tabletIndications: Other acute postprocedural pain Take 1 tablet (5 mg total) by mouth every 6 (six) hours if needed for severe pain. Max Daily Amount: 20 mg 15 tablet 04/10/20 Active cyclobenzaprine (FLEXERIL) 10 mg tablet Take 1 [...] tablet 05/20/19 25 Active Additional Information Patient not taking.Reported on 09/10/2024 hydrOXYzine pamoate (VISTARIL) 50 mg capsule Take [...] under the skin. 08/21/19 25 025 Active acetaminophen (TYLENOL) 500 mg tablet Take 2 tablets (1,000 mg total) by mouth every 6 hours as needed. 12/04/19 22 Active benzonatate (TESSALON) 200 mg capsule 08/29/19 22 Active budesonide (PULMICORT) 0.5 mg/2 mL nebulizer solution Take 2 mL (0.5 mg total) by nebulization 1 (one) time each day. Active esomeprazole (NexIUM) [address] capsule Take 1 capsule (40 mg total) by mouth 1 (one) time each day. 11/05/19 24 Active insulin lispro (HumaLOG KwikPen) 100 unit/mL injection pen INJECT 15 MINUTES BEFORE MEAL 3 TIMES A DAY; IF GLUCOSE LEVELS 200-250: TAKE 2 UNITS; 251-300: TAKE 4 UNITS; 301-350: TAKE 6 UNITS; 351-400: Active levonorgestreL (Mirena) 21 mcg/24hr (up to 8 yrs) 52 mg IUD 1 Device (1 each total). 07/16/19 25 Active meclizine (ANTIVERT) 25 mg tablet Take 1 tablet (25 mg total) by mouth 3 (three) times a day if needed. 12/08/19 24 Active mupirocin (BACTROBAN) 2 % ointment APPLY TOPICALLY THREE TIMES A DAY DIRECTED FOR 5 DAYS 08/30/19 25 Active nortriptyline (PAMELOR) 10 mg capsule Take 1 capsule (10 mg total) by mouth. 01/28/20 24 Active Nurtec 75 mg dispersible tablet Take 1 tablet (75 mg total) by mouth. 08/06/19 25 Active canakinumab, PF, (ILARIS) 150 mg/mL injection Inject 1 mL (150 mg total) under the skin. Active ferrous gluconate (FERGON) 324 mg (38 mg iron) tabletIndications: Low iron Take 1 tablet (324 mg total) by mouth 1 (one) time each day. 30 each 2 06/09/19 025 Active Problems Problem Noted Date Diagnosed Date Kidney stones 09/09/2024 Bilateral hand numbness 09/09/2024 Gastroesophageal reflux disease 09/09/2024 Hepatic steatosis 09/09/2024 Left carpal tunnel syndrome 09/09/2024 Osteoarthritis of hip 09/09/2024 Papillary carcinoma of thyroid ([facility] V24, [facility] /[facility] V28) 09/09/2024 Spondylosis of lumbosacral region 09/09/2024 Tear of acetabular labrum 09/09/2024 Class 1 obesity 08/18/2024 Dyshidrotic eczema 08/18/2024 Type 2 diabetes mellitus wit hout complication ([facility] V24, [facility] V28) 06/27/2024 Asthma 06/27/2024 Hypothyroidism 06/27/2024 Chronic renal impairment, st age 3 (moderate) ([facility] V24, [facility] V28) 06/27/2024 Concussion without loss of consciousness 025 Facial pain 06/12/2024 Trapezius muscle strain 06/12/2024 Arthralgia of left temporomandibular joint 05/23 Concussion 05/15/2024 Lethargy 05/15/2024 Shoulder pain 05/15/2024 Elevated liver function tests 04/15/2024 Elevated alkaline phosphatase level 03/21/2024 Overview (07/11/2024): [...] and question of PSC Assessment & Plan (09/10/2024 5:39 PM EDT): Trending down No clear etiology Patient following up with collating machine operator at [facility] in November Assessment & Plan (07/11/2024 12:17 PM EST): Second opinion for liver bx [facility] 08/18/24 Repeat lfts today, alk phos has been trending down (157 06/13/24) Assessment & Plan (06/13/2024 5:01 PM EST): Orders: Hepatic function panel; Future Cyclic vomiting syndrome 03/17/2024 CVID (common variable immuno deficiency) ([facility] V24, [facility] V28) 03/10/2024 Chronic cough 10/01/2023 Hyperimmunoglobulin e (ige) syndrome ([facility] V2 4) 10/01/2023 Moderate persistent asthma 10/01/2023 Perennial allergic rhinitis 10/01/2023 Polyp of nasal cavity 10/01/2023 Tardive dyskinesia 04/20/2023 Chronic migraine without aur a without status migrainosus, not intractable 11/03/2022 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 ([facility] V24) Disorder of patellofemoral joint 02/03/2022 Familial Mediterranean fever ([facility] V24, [facility] V28) 02/03/2022 Hay fever 02/03/2022 Hyperparathyroidism ([facility] V24) 02/03/2022 Irritable bowel syndrome 02/03/2022 Non-toxic nodular goiter 02/03/2022 Acute renal failure ([facility] V24) 12/20/2021 Nephrocalcinosis 12/07/2021 Abnormal auditory perception 10/12/2021 Overview (09/09/2024): Other abnormal auditory perceptions, left ear; Note: Date Diagnosed: 10/12/2021 11:06 AM (H93.292) Trigeminal neuralgia 06/07/2021 Bipolar I disorder ([facility] V24, [facility] V28) Chronic sinusitis 04/26/2021 Overview (09/09/2024): Sinusitis (chronic) NOS; Note: Date Diagnosed: 04/26/2021 2:03 PM (J32.9) Sensorineural hearing loss 01/20/2021 Overview (09/09/2024): Sensorineural hearing loss, unilateral, left ear, with unrestricted hearing on the contralateral side; Note: Date Diagnosed: 01/20/2021 1:26 PM (H90.42) Immunologic deficiency syndrome ([facility] V24) Overview (09/09/2024): Immunodeficiency, unspecified; Note: Changed from D84 to D84.9 (11/22/2020 11:21 AM) , Date Diagnosed: 05/26/2019 1:39 PM (D84) Posterior rhinorrhea 05/26/2019 Overview (09/09/2024): Postnasal drip; Note: Date Diagnosed: 05/26/2019 2:03 PM (R09.82) Tremor 01/30/2019 Overview (09/09/2024): Medication related (lithium, neuroleptics) Memory impairment 03/25/2015 Intractable migraine with aura without status mi grainosus 12/01/2013 Meniere's disease 12/01/2013 Congenital hypogammaglobulinemia ([facility] V24, [place] V28) 03/30/2011 Candidal vulvovaginitis 11/15/2010 Obstructive sleep apnea syndrome 11/15/2010 Encounters Date Type Department Care Team Description 09/26/2024 Telephone Gastroenterology - [address] [facility] [address] [place] [address] Merly Lyons MA 09/16/2024 8:13 AM EDT - 09/16/2024 11:59 PM EDT Hospital Encounter [facility] [address] [place] [address] CVID (common variable immunodeficiency) ([facility] V24, [facility] V28) (Primary Dx) Discharge Disposition: Home or Self Care 09/10/2024 9:10 AM EDT Office Visit Gastroenterology - [address] [place] [phone] Leif Burciaga PA WALTERS (nonalcoholic steatohepatitis) (Primary Dx); Elevated alkaline phosphatase level; Bloating; Tenesmus; Nausea and vomiting, unspecified vomiting type 08/27/2024 2:30 PM EDT Treatment [facility] Speech [address] [phone] Jessica Hull, DELIVERY LEAD 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); Cognitive communication disorder 08/27/2024 9:24 AM EDT - 08/27/2024 11:59 PM EDT Hospital Encounter [address] [phone] Deandre Schroeder MD Moderate persistent asthma, unspecified whether complicated (Primary Dx) Discharge Disposition: Home or Self Care 08/26/2024 8:19 AM EDT - 08/26/2024 11:59 PM EDT Hospital Encounter [address] [phone] Deandre Schroeder MD CVID (common variable immunodeficiency) ([facility] V24, [facility] V28) (Primary Dx) Discharge Disposition: Home or Self Care 08/19/2024 Telephone Gastroenterology - [address] [phone] Leif Burciaga PA 08/11/2024 8:30 AM EDT Treatment [facility] Speech Therapy [address] [place] [phone] Jessica Hull, DELIVERY LEAD 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); Cognitive communication disorder 07/31/2024 8:07 AM EDT - 07/31/2024 11:59 PM EDT Hospital Encounter [address] [phone] Deandre Schroeder MD CVID (common variable immunodeficiency) (CMS/HCC V24, CMS/HCC V28) (Primary Dx) Discharge Disposition: Home or Self Care 07/30/2024 2:30 PM EDT Evaluation [facility] Speech Therapy [address] [phone] Jessica Hull, DELIVERY LEAD Cognitive communication disorder (Primary Dx); 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 07/30/2024 Plan of Care Documentation [facility] Speech Therapy [address] [phone] 07/14/2024 Telephone Gastroenterology - [address] [place] [phone] Merly Lyons MA 07/13/2024 4:40 PM EST - 07/13/2024 10:59 PM EST Emergency [facility] Emergency [address] [place] [phone] Urinary tract infection without hematuria, site unspecified (Primary Dx); Cyst of left ovary Discharge Disposition: Home or Self Care 07/11/2024 10:40 AM EST Office Visit Gastroenterology - [address] [place] [phone] Leif Burciaga PA Elevated alkaline phosphatase level (Primary Dx); Bloating; Tenesmus; Nausea and vomiting, unspecified vomiting type 07/10/2024 Telephone Gastroenterology - [address] [phone] Merly Lyons MA 07/07/2024 12:05 PM EST - 07/07/2024 11:59 PM EST Hospital Encounter [facility] Xray [address] [place] [phone] Constipation, unspecified constipation type Discharge Disposition: Home or Self Care from Last 3 Months Immunizations Name Administration Dates Next Due Influenza Whole 01/05/2012, 1,02/16/2010,03/14 Influenza trivalent, 0.5mL, preservative free (Fluarix; FluLaval; Fluzone) ages 6mo and older (Afluria) 3 years and older 02/19/2019 Influenza trivalent, with pr eservative (Fluzone; Afluria) 6mo and older 02/13/2018,02/08/2017,03/07/2016,03/02,02/11/2014,01/24/2013 Pneumococcal conjugate 13 va lent (Prevnar 13, PCV13) 2mo and older 05/13/2014 Pneumococcal polysaccharide 23 valent (Pneumovax 23) 2yo and older 12/19/2009 Tdap Tetanus diptheria acell ular pertussis (Boostrix; Adacel) 7yo and older 07/05/2022,09/19/2017,12/08/2007,12/07 Surgical History Surgery Date Site/Laterality Comments COLONOSCOPY [...] ductal reaction? ascending cholangitis, secondary WALTERS likely UMBILICAL HERNIA REPAIR x2 with mesh Medical History Medical History Date Comments Diabetes mellitus (CMS/HCC V24, CMS/HCC V28) Diabetes insipidus, nephrogenic (CMS/HCC V24) CVID (common variable immunodeficiency) (CMS/HCC V24, CMS/HCC V28) Hypothyroid Asthma Hypoparathyroidism (CMS/HCC V24) Familial Mediterranean fever (CMS/HCC V24, [facility]/ CC V28) Chronic kidney disease CVS disease Bipolar 1 disorder (CMS/HCC V24, CMS/HCC V28) Migraines WALTERS (nonalcoholic steatohepatitis) Social History Tobacco Use Types Packs/Day Years Used Date Smoking Tobacco: Never Smokeless Tobacco: Never Tobacco Cessation:Counseling Given: Not Answered Alcohol Use Standard Drinks/Week Comments Never 0 [...] Reading Time Taken Comments Blood Pressure 113/83 09/16/2024 9:10 AM EDT Pulse 96 09/16/2024 9:10 AM EDT Temperature 36.7 ??C (98.1 ??F) 09/16/2024 9:10 AM ED T Respiratory Rate 18 09/16/2024 9:10 AM EDT Oxygen Saturation 100% 09/16/2024 9:10 AM EDT Inhaled Oxygen Concentration - - Weight 75.7 kg (166 lb 14.2 oz) 09/16/2024 9:10 AM EDT Height 162.6 cm (5' 4 ) 09/10/2024 9:02 AM EDT Body Mass Index 28.65 09/10/2024 9:02 AM EDT Plan of Treatment Upcoming Encounters Date Type Department Care Team (Late st Contact Info) Description 10/07/2024 8:00 AM EDT Appointment [facility] [address] [phone] 10/09/2024 7:15 AM EDT Clinical Support Gastroenterology - [address] [phone] 10/09/2024 11:45 AM EDT Treatment [facility] Speech Therapy [address] [phone] Jessica Hull, DELIVERY LEAD 10/22/2024 9:30 AM EDT Appointment [facility] [address] [phone] 12/22/2024 10:30 AM EDT Office Visit Gastroenterology - [address] [phone] Leif Burciaga PA [address] [phone] Health Maintenance Due Date Last Done Comments [...] 06/04/2024, Additional history exists DTaP,Tdap,and Td Vaccines (5 - Td or Tdap) 07/05/2032 07/05/2022, 09/19/2017, 12/08/2007, Additional history exists Colorectal Cancer Screening: Colonoscopy 06/27/2034 06/27/2024, 08/30/2017 [...] Type Associated Problems Recent Progress Patient-Stated? Author DELIVERY LEAD LTG General No Jessica Hull, DELIVERY LEAD Note: Pt will improve cognitive linguistic function to participate and communicate in iADLs mod I DELIVERY LEAD STGs General No Jessica Hull, DELIVERY LEAD Note: Pt will participate with development of [...] min assist Medical Devices Implanted Type Area Baker Bench Device Identifier Shelf Expiration Date Model / Serial / Lot Sponge Surgifoam Gel 12 X 7mm - [id number] Implanted:Qty: 1 on 04/09/2024 by Daniele Reeder MD at [facility] Hemostasis N/A: Abdomen [employer] [id number] / / Procedures Procedure Name Priority Date/Time Associated Diagnosis Comments FERRITIN Routine 09/26/2024 9:09 AM EDT Microcytosis IRON AND TIBC Routine 09/26/2024 9:[address] ABDOMEN PELVIS WO CONTRAST STAT 07/13/2024 [...] 8:07 AM EST Anemia Elevated fecal calprotectin from Last 3 Months or Most Recently Relevant to Health Maintenance Results * (ABNORMAL) Iron and TIBC (09/26/2024 9:09 AM EDT) Iron 22(L) 40 - 150 mcg/dL LAB CHEMISTRY METHOD 09/26/2024 10:06 AM EDT [facility] TIBC 467(H) 250 - 450 mcg/dL LAB CHEMISTRY METHOD 09/26/2024 10:06 AM EDT [facility] Iron Saturation 5(L) 15 - 50 % LAB CHEMISTRY METHOD 09/26/2024 10:06 AM EDT [facility] Blood Venous blood specimen / Unknown Venipuncture / Unknown 09/26/2024 9:09 AM EDT 09/26/2024 9:22 AM EDT Leif STANTON LAB BLOOD ORDERABLES Final R esult Performing Organization Address City/[facility]/ZIP Co de Phone Number [facility] [address] [place] [address], * Ferritin (09/26/2024 9:09 AM EDT) Ferritin 13 8 - 252 ng/mL LAB CHEMISTRY METHOD 09/26/2024 10:13 AM EDT [facility] Blood Venous blood specimen / Unknown Venipuncture / Unknown 09/26/2024 9:09 AM EDT 09/26/2024 9:22 AM EDT Leif Burciaga [place] LAB BLOOD ORDERABLES Final R esult Performing Organization Address [facility] Co de Phone Number [facility] [address] [place] [address], * CT Abdomen Pelvis wo Contrast (07/13/2024 [...] urine manually resulted (07/13/2024 6:50 PM EST) Pathologist [facility] HCG, Ur POC Negative Negative POC hCG Int QC Pass? Yes Yes EXPIRATION DATE POC LOT NUMBER POC [id number] Urine Urine specimen obtained by clean catch procedure / Unknown 07/13/2024 6:50 PM EST Florin STANTON POINT OF CARE TEST ENTER /EDIT ORDERABLES Final Result * (ABNORMAL) Urinalysis with reflex microscopic and culture (07/13/2024 3:07 PM EST) Pathologist [facility] Specific [place] Urine 1.011 1.003 - 1.030 LAB URINALYSIS - AUTOMATED METHOD 07/13/2024 3:58 PM EST [facility] pH, Urine 6.5 5.0 - 8.0 pH LAB URINALYSIS - AUTOMATED METHOD 07/13/2024 3:58 PM EST [facility] Leukocytes, Urine Moderate(A) Negative LAB URINALYSIS - AUTOMATED METHOD 07/13/2024 3:58 PM [facility] Nitrite, Urine Negative Negative LAB URINALYSIS - AUTOMATED METHOD 07/13/2024 3:58 PM [facility] Protein, Urine Negative <=Trace mg/dL LAB URINALYSIS - AUTOMATED METHOD 07/13/2024 3:58 PM [facility] Glucose, Urine Negative Negative mg/dL LAB URINALYSIS - AUTOMATED METHOD 07/13/2024 3:58 PM [facility] Ketones, Urine Negative Negative mg/dL LAB URINALYSIS - AUTOMATED METHOD 07/13/2024 3:58 PM [facility] Urobilinogen , Urine 0.2 0.2 - 1.0 mg/dL LAB URINALYSIS - AUTOMATED METHOD 07/13/2024 3:58 PM [facility] Bilirubin, Urine Negative Negative LAB URINALYSIS - AUTOMATED METHOD 07/13/2024 3:58 PM [facility] Blood, Urine Small(A) Negative LAB URINALYSIS - AUTOMATED METHOD 07/13/2024 3:58 PM [facility] RBC, Urine 2.0 0 - 4 /HPF LAB URINALYSIS - AUTOMATED METHOD 07/13/2024 3:58 PM [facility] WBC, Urine 20.2(H) 0 - 4 /HPF LAB URINALYSIS - AUTOMATED METHOD 07/13/2024 3:58 PM [facility] Squamous Epithelial, Urine 4 0 - 60 /LPF LAB URINALYSIS - AUTOMATED METHOD 07/13/2024 3:58 PM [facility] Bacteria, Urine Negative Negative /HPF LAB URINALYSIS - AUTOMATED METHOD 07/13/2024 3:58 PM [facility] Hyaline Casts, Urine 0.0 0 - 3 /LPF LAB URINALYSIS - AUTOMATED METHOD 07/13/2024 3:58 PM [facility] Urine Urine specimen obtained by clean catch procedure / Unknown Non-blood Collection / Unknown 07/13/2024 3:07 PM EST 07/13/2024 3:50 PM EST Mitesh Boyd MD LAB URINE ORDERABLES Jie l Result Performing Organization Address City/[facility]/ZIP Co de Phone Number [facility] [address] [place] [address], [place] [phone] * Mchugh urine culture tube (07/13/2024 3:07 PM EST) Pathologist [facility] Extra Tube Hold for add-ons. 07/13/2024 5:01 PM EST [facility] Comment:Auto resulted. Urine Urine specimen obtained by clean catch procedure / Unknown Non-blood Collection / Unknown 07/13/2024 3:07 PM EST 07/13/2024 3:50 PM EST Mitesh Boyd MD LAB URINE ORDERABLES Jie l Result Performing Organization Address [facility]/ZIP Co de Phone Number [facility] [address] [place] [address], [place] [phone] * (ABNORMAL) CBC auto differential (07/13/2024 3:07 PM EST) [facility] WBC 8.6 4.8 - 10.8 K/mcL LAB HEMETOLOGY METHOD 07/13/2024 3:59 PM [facility] RBC 5.90(H) 3.80 - 4.80 M/mcL LAB HEMETOLOGY METHOD 07/13/2024 3:59 PM [facility] Hemoglobin 11.7 11.5 - 16.0 g/dL LAB HEMETOLOGY METHOD 07/13/2024 3:59 PM [facility] Hematocrit 41.9 35.0 - 47.0 % LAB HEMETOLOGY METHOD 07/13/2024 3:59 PM [facility] MCV 70.9(L) 79.0 - 98.0 FL LAB HEMETOLOGY METHOD 07/13/2024 3:59 PM [facility] MCH 19.8(L) 27.0 - 32.0 pcg LAB HEMETOLOGY METHOD 07/13/2024 3:59 PM [facility] MCHC 27.9(L) 32.0 - 37.0 g/dL LAB HEMETOLOGY METHOD 07/13/2024 3:59 PM [facility] RDW 20.7(H) 11.0 - 15.0 % LAB HEMETOLOGY METHOD 07/13/2024 3:59 PM [facility] Platelets 398 130 - 400 K/mcL LAB HEMETOLOGY METHOD 07/13/2024 3:59 PM [facility] MPV 10.2 7.0 - 11.0 FL LAB HEMETOLOGY METHOD 07/13/2024 3:59 PM [facility] NRBC 0.0 <1.0 % LAB HEMETOLOGY METHOD 07/13/2024 3:59 PM [facility] NRBC Absolute 0.00 <0.10 K/mcL LAB HEMETOLOGY METHOD 07/13/2024 3:59 PM [facility] Neutrophils Relative 61.9 % LAB HEMETOLOGY METHOD 07/13/2024 3:59 PM [facility] Lymphocytes Relative 24.6 % LAB HEMETOLOGY METHOD 07/13/2024 3:59 PM [facility] Monocytes Relative 8.9 % LAB HEMETOLOGY METHOD 07/13/2024 3:59 PM [facility] Eosinophils Relative 2.8 % LAB HEMETOLOGY METHOD 07/13/2024 3:59 PM [facility] Basophils Relative 1.4 % LAB HEMETOLOGY METHOD 07/13/2024 3:59 PM [facility] Immature Granulocytes Relative 0.4 % LAB HEMETOLOGY METHOD 07/13/2024 3:59 PM EST [facility] Neutrophils Absolute 5.30 1.50 - 7.00 K/mcL LAB HEMETOLOGY METHOD 07/13/2024 3:59 PM [facility] Lymphocytes Absolute 2.10 1.00 - 5.00 K/mcL LAB HEMETOLOGY METHOD 07/13/2024 3:59 PM [facility] Monocytes Absolute 0.76 0.20 - 1.00 K/mcL LAB HEMETOLOGY METHOD 07/13/2024 3:59 PM [facility] Eosinophils Absolute 0.24 0.00 - 0.50 K/mcL LAB HEMETOLOGY METHOD 07/13/2024 3:59 PM [facility] Basophils Absolute 0.12 0.00 - 0.20 K/mcL LAB HEMETOLOGY METHOD 07/13/2024 3:59 PM [facility] Immature Granulocytes Absolute 0.03 0.00 - 0.03 K/mcL LAB HEMETOLOGY METHOD 07/13/2024 3:59 PM [facility] Blood Venous blood specimen / Unknown Venipuncture / Unknown 07/13/2024 3:07 PM EST 07/13/2024 3:50 PM EST Mitesh Boyd MD LAB BLOOD ORDERABLES Jie l Result [facility] [address] [place] [address], * Culture urine (07/13/2024 3:07 PM EST) Culture, Urine No growth 07/14/2024 12:02 PM EST [facility] Urine Urine specimen obtained by clean catch procedure / Unknown Non-blood Collection / Unknown 07/13/2024 3:07 PM EST 07/13/2024 3:58 PM EST us Mitesh Boyd MD LAB MICROBIOLOGY - GENERA L ORDERABLES Final Result Performing Organization Address [facility]/ZIP Co de Phone Number [facility] [address] [place] [address], [place] [phone] * Lipase (07/13/2024 3:07 PM EST) Pathologist [facility] Lipase 70 13 - 75 unit/L LAB CHEMISTRY METHOD 07/13/2024 4:26 PM [facility] Blood Venous blood specimen / Unknown Venipuncture / Unknown 07/13/2024 3:07 PM EST 07/13/2024 3:50 PM EST us Mitesh Boyd MD LAB BLOOD ORDERABLES Jie l Result Performing Organization Address [facility]/ZIP Co de Phone Number [facility] [address] [place] [address], [place] [phone] * (ABNORMAL) Comprehensive metabolic panel (07/13/2024 3:07 PM EST) [facility] Sodium 140 133 - 145 mmol/L LAB CHEMISTRY METHOD 07/13/2024 4:26 PM [facility] Potassium 3.7 3.5 - 5.5 mmol/L LAB CHEMISTRY METHOD 07/13/2024 4:26 PM [facility] Chloride 110 96 - 110 mmol/L LAB CHEMISTRY METHOD 07/13/2024 4:26 PM [facility] CO2 21 21 - 32 mmol/L LAB CHEMISTRY METHOD 07/13/2024 4:26 PM [facility] Anion Gap 9 3 - 11 LAB CHEMISTRY METHOD 07/13/2024 4:26 PM [facility] Glucose 171(H) 70 - 100 mg/dL LAB CHEMISTRY METHOD 07/13/2024 4:26 PM [facility] BUN 13 5 - 25 mg/dL LAB CHEMISTRY METHOD 07/13/2024 4:26 PM [facility] Creatinine 1.08 0.50 - 1.10 mg/dL LAB CHEMISTRY METHOD 07/13/2024 4:26 PM [facility] eGFR 63 >=60 mL/min/1. 73m2 LAB CHEMISTRY METHOD 07/13/2024 4:26 PM [facility] Comment:Calculation based on the??Chronic Kidney Disease Epidemiology Collaboration (CKD-EPI) equation refit??without adjustment for race. BUN/Creatinine Ratio 12.0 LAB CHEMISTRY METHOD 07/13/2024 4:26 PM [facility] Calcium 8.9 8.5 - 10.5 mg/dL LAB CHEMISTRY METHOD 07/13/2024 4:26 PM [facility] AST (SGOT) 33 10 - 42 unit/L LAB CHEMISTRY METHOD 07/13/2024 4:26 PM [facility] ALT (SGPT) 38 10 - 60 unit/L LAB CHEMISTRY METHOD 07/13/2024 4:26 PM [facility] Alkaline Phosphatase 158(H) 42 - 121 unit/L LAB CHEMISTRY METHOD 07/13/2024 4:26 PM [facility] Total Protein 7.3 6.0 - 8.0 g/dL LAB CHEMISTRY METHOD 07/13/2024 4:26 PM [facility] Albumin 3.7 3.2 - 5.0 g/dL LAB CHEMISTRY METHOD 07/13/2024 4:26 PM [facility] Total Bilirubin 0.3 0.0 - 1.4 mg/dL LAB CHEMISTRY METHOD 07/13/2024 4:26 PM [facility] Blood Venous blood specimen / Unknown Venipuncture / Unknown 07/13/2024 3:07 PM EST 07/13/2024 3:50 PM EST us Mitesh Boyd MD LAB BLOOD ORDERABLES Jie l Result [facility] [address] [place] [address], [place] [phone] * (ABNORMAL) Hepatic function panel (07/11/2024 11:19 AM EST) Total Protein 7.4 6.0 - 8.0 g/dL LAB CHEMISTRY METHOD 07/11/2024 4:30 PM EST [facility] Albumin 3.8 3.2 - 5.0 g/dL LAB CHEMISTRY METHOD 07/11/2024 4:30 PM [facility] Total Bilirubin 0.2 0.0 - 1.4 mg/dL LAB CHEMISTRY METHOD 07/11/2024 4:30 PM [facility] Bilirubin, Direct <0.1 0.0 - 0.3 mg/dL LAB CHEMISTRY METHOD 07/11/2024 4:30 PM [facility] Bilirubin, Indirect LAB CHEMISTRY METHOD 07/11/2024 4:30 PM [facility] Comment:Unable to calculate Indirect Bilirubin. ALT (SGPT) 35 10 - 60 unit/L LAB CHEMISTRY METHOD 07/11/2024 4:30 PM [facility] AST (SGOT) 24 10 - 42 unit/L LAB CHEMISTRY METHOD 07/11/2024 4:30 PM [facility] Alkaline Phosphatase 142(H) 42 - 121 unit/L LAB CHEMISTRY METHOD 07/11/2024 4:30 PM [facility] Blood Venous blood specimen / Unknown Venipuncture / Unknown 07/11/2024 11:19 AM EST 07/11/2024 12:46 PM EST Leif STANTON LAB BLOOD ORDERABLES Final R esult [facility] [address] [place] [address], [place] [phone] * XR Abdomen 1 View (07/07/2024 12:22 [...] Signed Date: 07/10/2024 11:31 ET Workstation ID: [id number] Transcribed By: Self Edit Transcribed Date: 07/10/2024 [...] Signed Date: 07/10/2024 11:31 ET Workstation ID: [id number] Transcribed By: Self Edit Transcribed Date: 07/10/2024 11:27 ET Manda Selas MD IMG XR PROCEDURES Final Result * COLONOSCOPY Anesthesia - MAC; [facility] ENDOSCOPY (06/27/2024 8:07 AM EST) Anatomical [...] Procedure Code(s): ? --- Professional --- ? 86185, Colonoscopy, flexible; with biopsy, single or ? multiple Diagnosis Code(s): ? --- Professional --- ? R19.7, Diarrhea, unspecified CPT copyright 2020 [employer]. All rights reserved. The codes documented in this report are preliminary and upon patcher wood welder review may be revised to meet current compliance requirements. Manda Seals MD 06/27/2024 8:09:30 AM This report has been signed electronically.Manda Seals MD Number of Addenda: 0 Note Initiated On: 06/27/2024 7:44 AM Scope In: Scope Out: ? Endoscopy Department at [facility] - [address] [place] [address], ? [place] [address] Procedure Note Manda Seals MD - 06/27/2024 [...] not prolapse). Procedure Code(s): --- Professional --- 02949, Colonoscopy, flexible; with biopsy, singleor multiple Diagnosis Code(s): --- Professional --- R19.7, Diarrhea, unspecified CPT copyright 2020 [employer]. All rights reserved. The codes documented in this report are preliminary and upon patcher wood welder reviewmay be revised to meet current compliance requirements. Manda Seals MD 06/27/2024 8:09:30 AM This report has been signed electronically.Manda Seals MD Number of Addenda: 0 Note Initiated On: 06/27/2024 7:44 AM Scope In: Scope Out: Endoscopy Department at [facility] - [address] [place] [id number] IMPRESSION: - The examined portion of the ileum was normal. - Normal mucosa in the entire examined colon.Biopsied. - Internal hemorrhoids. Recommendation: - Await pathology results. - Repeat colonoscopy in 10 years for screening purposes. 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
--- NOTE | 2024-09-30 10:29 | P.HPHOSP_ITS ---
History of Present Illness Date of Service: 09/30/24 Chief Complaint: face numbness, tingling hands, chest heaviness A 48 years old lady with PMH of bipolar, anxiety, Migraine, PTSD , Nephrogenic DI presenting with weakness, chest heaviness amd numbness. The patient had abdominal pain from likely passing kidney stone that she already passed this morning (according to her) with diarrhea and vomiting for the last few days. went to [facility] and had IV fluids with mild improvement yesterday. this morning she was driving to her Dr appointment when she felt overwhelming feeling of being stiff with numbness in face and tingling in her hands bilaterally. she drove back home but felt uneasy and had chest heaviness and was worried so she decided to come to the hospital for evaluation. she reports chest heaviness, palpitations, SOB, nausea, and one more time diarrhea with no more urinary symptoms. In ED blood work ok, EKG no ST or T-wave changes. worsening Hyperlipidemia but she was not fasting. CTA Head and neck negative. admitted for observation. Review of Systems 2 Review of Systems: No fever, chills or weakness No chest pain, palpitation No shortness of breath or coughing No abdominal pain, nausea or vomiting No urinary symptoms No any rash or wounds PMFSH Medical History Bipolar 1 disorder PTSD (post-traumatic stress disorder) Acute anxiety Depression History of recurrent pneumonia History of Pseudomonas pneumonia Bipolar disorder Menstrual migraine Allergic asthma Dyslipidemia Type 2 diabetes mellitus FMF (familial Mediterranean fever) Primary immunodeficiency disorder Surgical History History of endoscopy (~11/2023) History of ankle surgery History of umbilical hernia repair History of dilation and curettage History of arthroscopy History of oral surgery History of delivery Social History Household Members: Children Household Members Other:: dog Housing: House Do you presently have visiting nurse or other home services: No Alcohol intake: never Patient Tobacco Use Status: Never used Tobacco Smoked in Last 30 Days: No e-Cigarette/Vaping Use: Never Used Patient Interested in Nicotine Replacement: No Patient Given Instructions on How to Stop Smoking: No Second Hand Smoke Exposure: No Have you been hit, kicked, punched, or otherwise hurt by someone within the past year? If so, by whom?: No Do you feel safe in your current relationship?: Yes Is there a partner from a previous relationship who is making you feel unsafe now?: No Are you made to feel afraid or neglected: No Advance Directives: Yes Advance Directives on File: Yes Advance Directives Date on File: 09/30/24 Do you have a plan to hurt others: No Plan Recently lost weight without trying: No Eating poorly because of decreased appetite: No Nutrition Risks: No Nutritional Risk and Dental problems Patient : No : No Poor oral hygiene: No service: No Sexual orientation: Straight/Heterosexual Meds Allergies Allergy/AdvReac Type Severity Reaction Status Date / Time adhesive [ADHESIVE] Allergy Intermediate BLISTER Verified 09/30/24 08:51 fluticasone [From FLONASE] Allergy Unknown unknown Verified 09/30/24 08:51 meperidine [Demerol] Allergy Unknown vomit Verified 09/30/24 08:51 metoclopramide [From REGLAN] Allergy Unknown DIPLOPIA Verified 09/30/24 08:51 transparent dressing Allergy Unknown rash Verified 09/30/24 08:51 morphine [MORPHINE] AdvReac Severe NAUSEA & Verified 09/30/24 08:51 VOMITING TEGADERM BANDAGE Allergy Intermediate RASH Uncoded 08/27/24 11:23 morphine Allergy Unknown vomit Uncoded 08/27/24 11:23 tape Allergy Unknown rash Uncoded 08/27/24 11:23 From DEMEROL AdvReac Severe NAUSEA & Uncoded 08/27/24 11:23 VOMITING Active Medications: Current Medications Acetaminophen (Acetaminophen 325 Mg Tablet) 650 mg PO Q6H PRN PRN Reason: Pain, Mild 1-3,fever,headache Aspirin (Aspirin Enteric Coated 81 Mg Tablet.Dr) 81 mg PO DAILY LUCIE Atorvastatin Calcium (Atorvastatin Calcium 80 Mg Tablet) 80 mg PO BEDTIME LUCIE Calcium Carbonate (Calcium Carbonate 750 Mg Tab.Chew) 750 mg PO Q4H PRN PRN Reason: Heartburn Enoxaparin Sodium (Enoxaparin Sodium 40 Mg/0.4 Ml Syringe) 40 mg SUBCUT Q24H LUCIE Magnesium Hydroxide (Milk Of Magnesia 30 Ml Oral.Susp) 30 ml PO DAILY PRN PRN Reason: Constipation Melatonin (Melatonin 3 Mg Tablet) 6 mg PO BEDTIME PRN PRN Reason: Insomnia Ondansetron HCl (Ondansetron Hcl 4 Mg/2 Ml Vial) 4 mg IVPUSH Q8H PRN PRN Reason: Nausea and Vomiting Sodium Chloride (0.9 % Sodium Chloride Flush 3 Ml Syringe) 3 ml IVFLUSH QSHIFT [facility] Home Medications ?Medication ?Instructions ?Recorded ?Confirmed ?Last Taken ?Type montelukast 10 mg tablet 1 tab PO BEDTIME 01/31/22 09/30/24 09/30/24 History melatonin 10 mg capsule 10 mg PO BEDTIME PRN Insomnia 04/23/23 09/30/24 09/30/24 History ondansetron HCl 4 mg tablet 4 mg PO Q8H PRN Nausea 05/28/23 09/30/24 09/30/24 History atorvastatin 40 mg tablet 40 mg PO BEDTIME 12/11/23 09/30/24 09/30/24 History cetirizine 10 mg capsule (Zyrtec) 10 mg PO BID 12/11/23 09/30/24 09/30/24 History ferrous gluconate 324 mg (38 mg 324 mg PO DAILY 12/11/23 09/30/24 09/30/24 History iron) tablet metformin 1,000 mg tablet 1,000 mg PO BID 12/11/23 09/30/24 09/30/24 History omeprazole 40 mg capsule,delayed 40 mg PO BID@0630,1630 12/11/23 09/30/24 09/30/24 History release colchicine 0.6 mg tablet 1.8 mg PO DAILY 01/02/24 09/30/24 09/30/24 History omalizumab 300 mg/2 mL 300 mg subcut QMONTH 03/05/24 09/30/24 1 Month Ago History subcutaneous syringe (Xolair) ~08/31/24 docusate sodium 100 mg capsule 100 mg PO BID PRN constipation 04/16/24 09/30/24 09/30/24 History galcanezumab-gnlm 120 mg/mL 120 mg subcut QMONTH 04/16/24 09/30/24 09/23/24 History subcutaneous pen injector (Emgality Pen) ipratropium 20 mcg-albuterol 100 1 puff inhalation QID PRN SOB 04/16/24 09/30/24 09/30/24 History mcg/actuation mist for inhalation (Combivent Respimat) magnesium oxide 400 mg PO DAILY@1200 04/16/24 09/30/24 09/30/24 History rizatriptan 10 mg tablet 10 mg PO BID PRN Migraine Headache 04/16/24 09/30/24 09/30/24 History prednisone 20 mg tablet 20 - 40 mg PO DAILY PRN familial 04/17/24 09/30/24 09/30/24 History Mediterranean fever amiloride 5 mg tablet 10 mg PO DAILY 07/02/24 09/30/24 09/30/24 History insulin lispro 100 unit/mL See Protocol subcut TIDAC PRN 07/16/24 09/30/24 Unknown History subcutaneous pen Blood Sugar Spikes norethindrone (contraceptive) 0.35 0.35 mg PO DAILY 07/16/24 09/30/24 09/27/24 History mg tablet (Incassia) acetaminophen 500 mg tablet 500 mg PO Q6H PRN Pain 09/30/24 09/30/24 Unknown History vinqjmibky-ecerfpncdkfjw-phakbhtg 1 cap PO DAILY PRN Migraine 09/30/24 09/30/24 09/30/24 History 50 mg-300 mg-40 mg capsule Headache canakinumab (PF) 150 mg/mL 150 mg subcut Q4W 09/30/24 09/30/24 09/06/24 History subcutaneous solution (Ilaris (PF)) cyclobenzaprine 10 mg tablet 10 mg PO BEDTIME PRN Muscle Spasm 09/30/24 09/30/24 09/30/24 History gabapentin 600 mg tablet 600 mg PO BID 09/30/24 09/30/24 09/30/24 History hydroxyzine HCl 25 mg tablet 25 - 50 mg PO TID PRN anxiety 09/30/24 09/30/24 09/30/24 History immune glob,gamma(IgG) 10 30 g IV Q3W 09/30/24 09/30/24 09/16/24 History suww-mmy-qujs-IgA 0 to 50 mcg/mL IV solution (Gammagard S-D (IgA < 1 mcg/mL)) levothyroxine 50 mcg tablet 50 mcg PO DAILY@0600 09/30/24 09/30/24 09/30/24 History semaglutide 0.25 mg or 0.5 mg (2 0.5 mg subcut SA 09/30/24 09/30/24 09/27/24 History mg/3 mL) subcutaneous pen injector (Ozempic) Physical Exam 2 Vital Signs and Narrative: Vital Signs: Last Vital Signs Temp 98.1 F 09/30/24 09:12 Pulse 81 09/30/24 09:12 Resp 18 09/30/24 09:12 BP 143/100 H 09/30/24 09:12 Pulse Ox 98 09/30/24 09:12 O2 Del Method Room Air 09/30/24 09:12 BMI result Body Mass Index 30.1 Const: Other: Constitutional : Awake, interactive, not in distress Neck : Normal inspection, Supple Cardiovascular : RRR, no JVP, no lower extremity edema Respiratory : good bilateral air entry, no crackles, wheezes or rhonchi Gastrointestinal: soft, lax, Normal bowel sounds, Non tender Skin : Warm, Dry Neurological : Alert & oriented x3, No focal deficit , CN 2-12 within normal Results Labs 09/30/24 09:05 09/30/24 09:05 Labs: Laboratory Results - last 24 hr 09/30/24 09/30/24 09/30/24 08:37 08:40 09:05 MCV 73.4 L MCH 22.6 L MCHC 30.8 L RDW 21.8 H Plt Count 301 MPV 9.5 Immature Gran % (Auto) 0.2 Neut % (Auto) 62.4 Lymph % (Auto) 24.6 Miner % (Auto) 10.2 Eos % (Auto) 1.8 Baso % (Auto) 0.8 Lymph # (Auto) 1.5 Miner # (Auto) 0.6 Eos # (Auto) 0.1 Baso # (Auto) 0.1 Abs Immat Gran (auto) 0.01 Absolute Neuts (auto) 3.8 Absolute Nucleated RBC 0.000 Nucleated RBC % (auto) 0.0 PT 11.1 Whole Blood PT 12.0 INR 1.0 Whole Blood INR 1.0 APTT 27.9 Anion Gap 13 Estim Creat Clear Calc 85.5 Estimated GFR > 60 POC Glucose 116 H Random Glucose 100 Calcium 9.7 Triglycerides 299 H Cholesterol 277 H LDL Cholesterol, Calc 175 H HDL Cholesterol 43 Imaging Radiologist's Impressions: Impressions Head CT 09/30/24 08:46 IMPRESSION: No acute intracranial hemorrhage or acute brain abnormality by CT. Status post bilateral inferior ethmoidectomies and medial maxillary antrostomies. This critical result was discussed with emergency physician Dr. Augustin Guerrero at at 8:55 AM hours on September 30, 2024. It was ascertained that the content and urgency of the report was understood at the time of direct communication. Electronically signed by: Venancio Terrell MD 09/30/2024 09:01 AM EDT RP Head/Neck CTA 09/30/24 08:46 IMPRESSION: No main cerebral artery occlusion and or embolus. No high degree stenosis or dissection. This critical test result is communicated to: Emergency physician Dr. Augustin Guerrero at 9:14 AM on October 05, 2024. Electronically signed by: Venancio Terrell MD 09/30/2024 09:23 AM EDT RP Assessment and Plan (1) Brain TIA: Status: Acute (2) Bipolar disorder: Status: Acute (3) PTSD (post-traumatic stress disorder): Status: Acute Plan A 48 years old lady with PMH of bipolar, anxiety, Migraine, PTSD , Nephrogenic DI presenting with weakness, chest heaviness amd numbness. Weakness generalized, no focal weakness CTA negative for acute findings Likely related to recent illness, dehydration received IVF and feels better Numbness, chest heaviness sounds more anxiety related and overbreathing Feels anxious about her life situation and recent changes EKG with no ST\T wace changes EKG negative On Tele for now HLD Elevated LDL and cholestrol Increase Atorvastatin Anxirty continue home medicaitons DVT PPx Lovenox Quality Stroke Does the patient have a stroke diagnosis?: No VTE Prior VTE?: No VTE Risk Level:: Medical - moderate - high VTE Device Contraindication: Treatment Not Indicated VTE Drug Contraindication: N/A - Med Ordered
[2024-09-30] MEDS: Enoxaparin Sodium 40 MG/0.4 ML SYRINGE SUBCUT (11:33)
[2024-09-30 13:02] LABS: Glucose, Whole Blood 100 mg/dL (60-115)
[2024-09-30 13:06] VITALS: BP 124/84; PULSE 99; RESP 18; TEMP 36.9; O2SAT 98
--- NOTE | 2024-09-30 13:06 | PC.NURSE ---
pt reports improvement in symptoms - her face is significantly less numb and she passed her swallow eval. her hands are also no longer tingling. pt walks steadily
[2024-09-30] MEDS: Acetaminophen 325 MG TABLET 650 MG PO ×2 (13:10→19:49)
--- NOTE | 2024-09-30 13:24 | PHA.MEDREC ---
Addendum entered by Catie Bolanos RPh 09/30/24 14:39: Med rec was reviewed by [facility]. Original Note: Pharmacy Consult ? Medication Reconciliation Pharmacy has completed the medication reconciliation. Confirmed medications with patient and list she has on hand. Patient confirmed she is not taking the Trulicity anymore and states her Dr switched her to Ozempic once a week on Saturdays. She also confirmed she is taking the Gabapentin 600mg BID and states her Dr wants her to start cutting back on that. She confirmed she only takes Levothyroxine 50mcg once a day and states she was suppose to take 1 tab - and 1 1/2 tab on Sunday but never started the Sunday dose. She confirmed the Ozemic once a week on Saturdays and took it last 09/27, Emglaity Pen once a month and last got that 09/23, Xolair she was due for that today but didnt get to take it before coming in here, Ilaris she gets once a month and states she is due on 10/07 and Gammagard once a month is due 10/04. The pt has not had any bith control in about 2-3 days.
[2024-09-30 15:42] LABS: Glucose, Whole Blood 122 mg/dL (60-115)
[2024-09-30 15:44] VITALS: BP 116/76; PULSE 98; RESP 18; TEMP 36.8; O2SAT 95
[2024-09-30] MEDS: Omeprazole 40 MG CAPSULE.DR PO (15:55)
[2024-09-30] MEDS: hydrOXYzine HCL 50 MG TABLET PO (15:56)
[2024-09-30 19:33] VITALS: BP 114/78; PULSE 96; RESP 17; TEMP 36.7; O2SAT 96
[2024-09-30] MEDS: Topiramate 25 MG TABLET 50 MG PO (19:48)
[2024-09-30] MEDS: Cyclobenzaprine HCl 10 MG TABLET PO (19:48)
[2024-09-30] MEDS: Melatonin 3 MG TABLET 9 MG PO (19:48)
[2024-09-30] MEDS: Gabapentin 600 MG TABLET PO (19:48)
[2024-09-30] MEDS: Venlafaxine HCL 25 MG TABLET 75 MG PO (19:48)
[2024-09-30] MEDS: Loratadine 10 MG TABLET PO (19:49)
[2024-09-30] MEDS: OXcarbazepine 300 MG TABLET 900 MG PO (19:49)
[2024-09-30] MEDS: Montelukast Sodium 10 MG TABLET PO (19:50)
[2024-09-30] MEDS: Atorvastatin Calcium 40 MG TABLET PO (19:51)
[2024-09-30] MEDS: 0.9 % Sodium Chloride Flush 3 ML SYRINGE IVFLUSH (19:54)
[2024-09-30] MEDS: ondansetron HCL 4 MG/2 ML VIAL IVPUSH (20:54)
[2024-09-30 21:11] LABS: Glucose, Whole Blood 112 mg/dL (60-115)
[2024-09-30 23:57] VITALS: BP 121/70; PULSE 84; RESP 16; TEMP 36.4; O2SAT 94
[2024-10-01 03:17] VITALS: BP 112/66; PULSE 90; RESP 16; TEMP 36.6; O2SAT 97
[2024-10-01] MEDS: Butalb/Acetamin/Caff 50/325/40 TABLET 1 TAB PO ×2 (03:19→10:48)
[2024-10-01] MEDS: Levothyroxine Sodium 50 MCG TABLET PO (05:52)
[2024-10-01] MEDS: Omeprazole 40 MG CAPSULE.DR PO (05:52)
[2024-10-01 07:05] VITALS: BP 112/72; PULSE 89; RESP 18; TEMP 36.4; O2SAT 98
[2024-10-01 07:17] LABS: Glucose, Whole Blood 111 mg/dL (60-115)
[2024-10-01 07:35] LABS: Hemoglobin 12.7 g/dl (12.0-16.0); Mean Corpuscular HGB Conc 30.2 g/dl (31.0-35.0); Mean Corpuscular Hemoglobin 22.8 pg (27.0-33.0); Mean Corpuscular Volume 75.3 fL (80.0-98.0); Mean Platelet Volume 9.8 fL (9.4-12.3); Platelet Count 252 X10*3/uL (160-400); Red Blood Count 5.58 X10*6/uL (4.20-5.50); Red Cell Distribution Width 20.9 % (11.0-16.0); White Blood Count 4.6 X10*3/uL (4.8-10.8)
[2024-10-01 07:40] LABS: Alanine Aminotransferase 39 U/L (0-31); Albumin Level 4.2 g/dL (3.5-5.0); Alkaline Phosphatase 111 U/L (39-117); Anion Gap 13 (12-20); Aspartate Amino Transferase 38 U/L (5-31); Bilirubin Total 0.3 mg/dL (0.0-1.0); Blood Urea Nitrogen 13 mg/dL (9-16); Carbon Dioxide 21 mmol/L (22-29); Chloride 115 mmol/L (96-108); Creatinine Clr Calc Pharmacy 86.6; Estimated Glomerular Filt Rate > 60; Glucose Random 120 mg/dL (60-115); Sodium 145 mmol/L (135-145)
[2024-10-01 08:30] LABS: Iron 30 mcg/dL (30-160); Percent Iron Saturation 8 % (15-50); Total Iron Binding Capacity 361 mcg/dL (228-428); Unsaturated Iron Binding 331 ug/dL
--- NOTE | 2024-10-01 08:38 | MHC.CM.PN ---
CM met with Patient at bedside and addressed SERRANO with her, providing Patient with the original and a copy has been placed on the chart. Patient lives in a house with her 17 year old Son; she and her /HCP/Pineda live separately but are still together. Patient had no home services and used a cane @ times [employer]. PT is recommending home with family support and CM has initiated and will follow for dc planning. PCP is Dr. Bernie Aquino and will transport to home at time of dc.
[2024-10-01 08:44] LABS: Ferritin 25 ng/mL (10-250)
[2024-10-01] MEDS: OXcarbazepine 300 MG TABLET 900 MG PO (09:34)
[2024-10-01] MEDS: Colchicine 0.6 MG TABLET 1.8 MG PO (09:34)
[2024-10-01] MEDS: Aspirin Enteric Coated 81 MG TABLET.DR PO (09:34)
[2024-10-01] MEDS: hydrOXYzine HCL 50 MG TABLET PO (09:35)
[2024-10-01] MEDS: Loratadine 10 MG TABLET PO (09:35)
[2024-10-01] MEDS: Topiramate 25 MG TABLET 50 MG PO (09:35)
[2024-10-01] MEDS: Multivitamin TABLET 1 TAB PO (09:35)
[2024-10-01] MEDS: lamoTRIgine 25 MG TABLET 50 MG PO (09:35)
[2024-10-01] MEDS: 0.9 % Sodium Chloride Flush 3 ML SYRINGE IVFLUSH (09:35)
[2024-10-01] MEDS: Gabapentin 600 MG TABLET PO (09:35)
--- NOTE | 2024-10-01 10:29 | PM.DS ---
DS: Providers Provider Date of Service: 10/01/24 Date of admission: 09/30/24 10:39 Date of discharge: 10/01/24 Primary care physician: Bernie Aquino NP DS: Diagnosis Discharge Diagnosis (1) Brain TIA: Status: Acute (2) Bipolar disorder: Status: Acute (3) PTSD (post-traumatic stress disorder): Status: Acute DS: Summary Hospital Course Hospital Course: from initial hpi: 48 years old lady with PMH of bipolar, anxiety, Migraine, PTSD , DM Nephrogenic DI presenting with weakness, chest heaviness amd numbness. The patient had abdominal pain from likely passing kidney stone that she already passed this morning (according to her) with diarrhea and vomiting for the last few days. [place] [facility] [place] with mild improvement yesterday. this morning she was driving to her Dr appointment when she felt overwhelming feeling of being stiff with numbness in face and tingling in her hands bilaterally. she drove back home but felt uneasy and had chest heaviness and was worried so she decided to come to the hospital for evaluation. she reports chest heaviness, palpitations, SOB, nausea, and one more time diarrhea with no more urinary symptoms. In ED blood work ok, EKG no ST or T-wave changes. worsening Hyperlipidemia but she was not fasting. CTA Head and neck negative. admitted for observation. hospital course: Patient was admitted for weakness and paresthesias likely due to anxiety, recent diarrheal illness. CT angio of the head was negative for acute stroke symptoms resolved. For chronic iron-deficiency anemia was continued on iron, for hyperlipidemia continued on statin. 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 For bipolar continued on mood stabilizers. for DM continued on insulin. Patient is feeling better will be discharged home. Time Attestation Discharge Coordination Time (in mins): 33 Quality: Safe Use of Opioids Does Pt have an Active Cancer Diagnosis on the Problem List?: No Quality: Stroke Does the patient have a stroke diagnosis?: No Physical Exam Vital Signs: Vital Signs: Last Vital Signs Temp 97.6 F 10/01/24 07:05 Pulse 89 10/01/24 07:05 Resp 18 10/01/24 07:05 BP 112/72 10/01/24 07:05 Pulse Ox 98 10/01/24 07:05 O2 Del Method Room Air 10/01/24 07:05 BMI result Body Mass Index 30.1 General: AO X 3, no acute distress Resp: CTA bilateral, no accessory muscles used CVS: S1,S2,RRR GI: soft, non tender, non distended Neuro: motor grossly intact, alert Psych: appropriate affect, appropriate insight DS: Data Data Completed and Pending Labs on day of discharge: Laboratory Results - last 24 hr 09/30/24 09/30/24 09/30/24 12:58 15:38 21:05 WBC RBC Hgb Hct MCV MCH MCHC RDW Plt Count MPV Absolute Nucleated RBC Nucleated RBC % (auto) Sodium Potassium Chloride Carbon Dioxide Anion Gap BUN Creatinine Estim Creat Clear Calc Estimated GFR POC Glucose 100 122 H 112 Random Glucose Calcium Magnesium Iron TIBC % Saturation Unsat Iron Binding Ferritin Total Bilirubin AST ALT Alkaline Phosphatase Total Protein Albumin 10/01/24 10/01/24 07:02 07:09 WBC 4.6 L RBC 5.58 H Hgb 12.7 Hct 42.0 MCV 75.3 L MCH 22.8 L MCHC 30.2 L RDW 20.9 H Plt Count 252 MPV 9.8 Absolute Nucleated RBC 0.000 Nucleated RBC % (auto) 0.0 Sodium 145 Potassium 4.0 Chloride 115 H Carbon Dioxide 21 L Anion Gap 13 BUN 13 Creatinine 0.81 Estim Creat Clear Calc 86.6 Estimated GFR > 60 POC Glucose 111 Random Glucose 120 H Calcium 9.0 D Magnesium 2.0 Iron 30 TIBC 361 % Saturation 8 L Unsat Iron Binding 331 Ferritin 25 Total Bilirubin 0.3 AST 38 H ALT 39 H Alkaline Phosphatase 111 Total Protein 7.0 Albumin 4.2 Discharge Plan Discharge Anticipated Discharge Date/Time: 10/01/24 10:26 Patient Disposition: Home, Self-Care Discharge Diagnosis: parasthesias Referrals: Bernie Aquino NP [Primary Care Provider] - 1 Week Discharge Medications: Continued montelukast 10 mg tablet 1 tab PO BEDTIME omeprazole 40 mg capsule,delayed release(DR/EC) 40 mg PO BID@0630,1630 colchicine 0.6 mg tablet 1.8 mg PO DAILY norethindrone (contraceptive) [Incassia] 0.35 mg Tablet 0.35 mg PO DAILY insulin lispro 100 unit/mL insulin pen See Protocol SUBCUT TIDAC PRN (Reason: Blood Sugar Spikes) Protocol: Insulin Correction Scale Less than or equal to 110 ---- Give (units): 0 111 to 150 Give (units): 0 151 to 200 Give (units): 0 201 to 250 Give (units): 2 251 to 300 Give (units): 4 301 to 350 Give (units): 6 Greater than 350 Give (units): 8 Call MD if Blood Glucose > : 350 Rx Instructions: Patient takes while on Prednisone regimens for blood sugar spikes. multivitamin [Daily-Enid] Tablet 1 tab PO DAILY Qty: 0 0RF venlafaxine 25 mg Tablet 75 mg PO BEDTIME Qty: 90 0RF lamotrigine 25 mg Tablet 50 mg PO DAILY 30 Days Qty: 60 0RF oxcarbazepine 600 mg tablet 900 mg PO BID Qty: 90 0RF topiramate 50 mg tablet 50 mg PO BID Qty: 60 0RF lamotrigine 200 mg tablet extended release 24hr 200 mg PO BEDTIME Qty: 30 0RF rizatriptan 10 mg Tablet 10 mg PO BID PRN (Reason: Migraine Headache) Rx Instructions: do not exceed 3 doses per 24 hrs docusate sodium 100 mg capsule 100 mg PO BID PRN (Reason: constipation) Combivent Respimat 20-100 mcg/actuation mist 1 puff INHALATION QID PRN (Reason: SOB) magnesium oxide 400 mg magnesium Tablet 400 mg PO DAILY@1200 Rx Instructions: Take once daily at noon starting on 04/17/24 Emgality Pen 120 mg/mL pen injector 120 mg subcut QMONTH prednisone 20 mg tablet 20 - 40 mg PO DAILY PRN (Reason: familial Mediterranean fever) levothyroxine 50 mcg tablet 50 mcg PO DAILY@0600 Gammagard S-D (IgA < 1 mcg/mL) 10 gram Recon Soln 30 g IV Q3W Ilaris (PF) 150 mg/mL Solution 150 mg SUBCUT Q4W Ozempic 0.25 mg or 0.5 mg (2 mg/3 mL) pen injector 0.5 mg subcut SA cyclobenzaprine 10 mg Tablet 10 mg PO BEDTIME PRN (Reason: Muscle Spasm) hydroxyzine HCl 25 mg tablet 25 - 50 mg PO TID PRN (Reason: anxiety) mlnggqmjki-nowbmbjlfkmpa-xwfi 50-300-40 mg capsule 1 cap PO DAILY PRN (Reason: Migraine Headache) gabapentin 600 mg tablet 600 mg PO BID acetaminophen 500 mg Tablet 500 mg PO Q6H MDD 2000mg PRN (Reason: Pain) melatonin 10 mg capsule 10 mg PO BEDTIME PRN (Reason: Insomnia) Zyrtec 10 mg capsule 10 mg PO BID ondansetron HCl 4 mg tablet 4 mg PO Q8H PRN (Reason: Nausea) atorvastatin 40 mg tablet 40 mg PO BEDTIME ferrous gluconate 324 mg (38 mg iron) tablet 324 mg PO DAILY metformin 1,000 mg tablet 1,000 mg PO BID amiloride 5 mg tablet 10 mg PO DAILY Xolair 300 mg/2 mL syringe 300 mg subcut QMONTH Discharge Orders: Discharge Order (Routine); Ordered 10/01/24 Ordered By: Simone Sheehan Diet: Advance to usual diet Activity on Discharge: As tolerated Stand Alone Forms: Patient Portal Discharge page Print Language: Ukrainian Care Plan Goals: recovery Health Concerns: parasthesias [facility] Assessment: see above Patient Instructions: Transient Ischemic Attack (ED)
--- NOTE | 2024-10-01 10:43 | MHC.CM.PN ---
Patient has been medically cleared for dc to home today, self care.
[2024-10-01] MEDS: Magnesium Oxide 400 MG TABLET PO (10:48)
[2024-10-01 11:01] VITALS: BP 124/18; PULSE 81; RESP 15; TEMP 37.1; O2SAT 94
[2024-10-01 11:35] LABS: Glucose, Whole Blood 113 mg/dL (60-115)
== END 2024-10-01 12:11 | disposition home or self-care (01) ==
LOC: HO.ED 09:55 → HO.EDOVER 10:41 → HO.IMC 13:49
PROVIDERS: Admitting Provider Student in an Organized Health Care Education/Training Program; Emergency Provider Emergency Medicine; PCP Nurse Practitioner Family; Visit Provider Internal Medicine
DX: R20.2 Paresthesia of skin (principal); R47.81 Slurred speech; R53.1 Weakness; R29.810 Facial weakness; F31.9 Bipolar disorder, unspecified; F43.10 Post-traumatic stress disorder, unspecified; E11.9 Type 2 diabetes mellitus without complications; M04.1 Periodic fever syndromes; Z79.899 Other long term (current) drug therapy
CPT/HCPCS: 36415; 70450; 70496; 70498; 80048; 80053; 80061; 82728; 82947; 83540; 83735; 84484; 85025; 85027; 85610; 85730; 93005; 96372; 96374; 97116; 97161; 97165; 99222; 99285; J1650; J2405; Q9967

== ENCOUNTER → 2024-09-30 08:46 | Outpatient (BNV) | payer MEDICARE, MEDICAID, SELFPAY | PROVIDERS: Emergency Provider Emergency Medicine; PCP Nurse Practitioner Family; Visit Provider Radiology Diagnostic Radiology | DX: R53.1 Weakness (principal) | CPT/HCPCS: 70450; 70496; 70498 ==

== ENCOUNTER → 2024-09-30 08:46 | Outpatient (BNV) | payer MEDICARE, MEDICAID, SELFPAY | PROVIDERS: Admitting Provider Student in an Organized Health Care Education/Training Program; Emergency Provider Emergency Medicine; PCP Nurse Practitioner Family; Visit Provider Internal Medicine Cardiovascular Disease | DX: R94.31 Abnormal electrocardiogram [ECG] [EKG] (principal); I63.9 Cerebral infarction, unspecified | CPT/HCPCS: 93010 ==

== ENCOUNTER → 2024-09-30 10:39 | Outpatient (BNV) | payer MEDICARE, MEDICAID, SELFPAY | PROVIDERS: Admitting Provider Student in an Organized Health Care Education/Training Program; Emergency Provider Emergency Medicine; PCP Nurse Practitioner Family; Visit Provider Student in an Organized Health Care Education/Training Program | DX: G45.9 Transient cerebral ischemic attack, unspecified (principal); F31.9 Bipolar disorder, unspecified; F43.10 Post-traumatic stress disorder, unspecified | CPT/HCPCS: 99223; 99239 ==

== ENCOUNTER 2024-10-01 23:07 | Emergency (ER) | payer MEDICARE, MEDICAID, SELFPAY ==
[2024-10-01 23:15] VITALS: BP 112/79; PULSE 90; RESP 16; TEMP 36.6; O2SAT 97; BMI 27.8
--- NOTE | 2024-10-01 23:24 | ECG_ITS ---
Test Reason : PALPITATIONS Blood Pressure : */* mmHG Vent. Rate : 81 BPM Atrial Rate : 81 BPM P-R Int : 164 ms QRS Dur : 98 ms QT Int : 408 ms P-R-T Axes : 37 48 22 degrees QTcB Int : 473 ms Normal sinus rhythm Septal infarct (cited on or before 30-Sep-2024) Abnormal ECG When compared with ECG of 30-Sep-2024 09:10, No significant change was found Referred By: Stefany Miranda Electronically Signed By: Jus Reece
--- NOTE | 2024-10-01 23:26 | ED_ITS ---
HPI - General Adult General Chief complaint: General Medical Stated complaint: took wrong medication Time Seen by Provider: 10/01/24 23:16 Source: patient Mode of arrival: ambulatory Limitations: no limitations History of Present Illness ED Provider: Dr. Stefany Miranda HPI narrative: Patient comes to the emergency room complaining of palpitations. Patient states that yesterday she took levothyroxine instead of hydroxyzine. Patient states it happened twice, once in the morning yesterday and wants in the morning today. Patient states that since 17:00 she has been having palpitations, no chest pain or shortness of breath. Of note, patient was discharged earlier this morning from the hospital. Patient was admitted for TIA/CVA rule out. CT angio of the head was negative for stroke symptoms. Related Data Home Medications ?Medication ?Instructions ?Recorded ?Confirmed montelukast 10 mg tablet 1 tab PO BEDTIME 01/31/22 09/30/24 melatonin 10 mg capsule 10 mg PO BEDTIME PRN Insomnia 04/23/23 09/30/24 ondansetron HCl 4 mg tablet 4 mg PO Q8H PRN Nausea 05/28/23 09/30/24 atorvastatin 40 mg tablet 40 mg PO BEDTIME 12/11/23 09/30/24 cetirizine 10 mg capsule (Zyrtec) 10 mg PO BID 12/11/23 09/30/24 ferrous gluconate 324 mg (38 mg 324 mg PO DAILY 12/11/23 09/30/24 iron) tablet metformin 1,000 mg tablet 1,000 mg PO BID 12/11/23 09/30/24 omeprazole 40 mg capsule,delayed 40 mg PO BID@0630,1630 12/11/23 09/30/24 release colchicine 0.6 mg tablet 1.8 mg PO DAILY 01/02/24 09/30/24 omalizumab 300 mg/2 mL 300 mg subcut QMONTH 03/05/24 09/30/24 subcutaneous syringe (Xolair) docusate sodium 100 mg capsule 100 mg PO BID PRN constipation 04/16/24 09/30/24 galcanezumab-gnlm 120 mg/mL 120 mg subcut QMONTH 04/16/24 09/30/24 subcutaneous pen injector (Emgality Pen) ipratropium 20 mcg-albuterol 100 1 puff inhalation QID PRN SOB 04/16/24 09/30/24 mcg/actuation mist for inhalation (Combivent Respimat) magnesium oxide 400 mg PO DAILY@1200 04/16/24 09/30/24 rizatriptan 10 mg tablet 10 mg PO BID PRN Migraine Headache 04/16/24 09/30/24 prednisone 20 mg tablet 20 - 40 mg PO DAILY PRN familial 04/17/24 09/30/24 Mediterranean fever amiloride 5 mg tablet 10 mg PO DAILY 07/02/24 09/30/24 insulin lispro 100 unit/mL See Protocol subcut TIDAC PRN 07/16/24 09/30/24 subcutaneous pen Blood Sugar Spikes norethindrone (contraceptive) 0.35 0.35 mg PO DAILY 07/16/24 09/30/24 mg tablet (Incassia) acetaminophen 500 mg tablet 500 mg PO Q6H PRN Pain 09/30/24 09/30/24 uotxginvos-jgutfqqvjhlzp-wafrzeue 1 cap PO DAILY PRN Migraine 09/30/24 09/30/24 50 mg-300 mg-40 mg capsule Headache canakinumab (PF) 150 mg/mL 150 mg subcut Q4W 09/30/24 09/30/24 subcutaneous solution (Ilaris (PF)) cyclobenzaprine 10 mg tablet 10 mg PO BEDTIME PRN Muscle Spasm 09/30/24 09/30/24 gabapentin 600 mg tablet 600 mg PO BID 09/30/24 09/30/24 hydroxyzine HCl 25 mg tablet 25 - 50 mg PO TID PRN anxiety 09/30/24 09/30/24 immune glob,gamma(IgG) 10 30 g IV Q3W 09/30/24 09/30/24 xxbm-flh-ntyh-IgA 0 to 50 mcg/mL IV solution (Gammagard S-D (IgA < 1 mcg/mL)) levothyroxine 50 mcg tablet 50 mcg PO DAILY@0600 09/30/24 09/30/24 semaglutide 0.25 mg or 0.5 mg (2 0.5 mg subcut SA 09/30/24 09/30/24 mg/3 mL) subcutaneous pen injector (Ozempic) Previous Rx's ?Medication ?Instructions ?Recorded lamotrigine 200 mg tablet,extended 200 mg PO BEDTIME #30 tabs 07/22/24 release 24 hr lamotrigine 25 mg tablet 50 mg (2 x 25 mg) PO DAILY 30 days 07/22/24 #60 tabs multivitamin (Daily-Enid tablet) 1 tab PO DAILY #0 tabs 07/22/24 oxcarbazepine 600 mg tablet 900 mg (1.5 x 600 mg) PO BID #90 07/22/24 tabs topiramate 50 mg tablet 50 mg PO BID #60 tabs 07/22/24 venlafaxine 25 mg tablet 75 mg (3 x 25 mg) PO BEDTIME #90 07/22/24 tabs Allergies Allergy/AdvReac Type Severity Reaction Status Date / Time adhesive [ADHESIVE] Allergy Intermediate BLISTER Verified 10/01/24 23:17 fluticasone [From FLONASE] Allergy Unknown unknown Verified 10/01/24 23:17 meperidine [Demerol] Allergy Unknown vomit Verified 10/01/24 23:17 metoclopramide [From REGLAN] Allergy Unknown DIPLOPIA Verified 10/01/24 23:17 transparent dressing Allergy Unknown rash Verified 10/01/24 23:17 morphine [MORPHINE] AdvReac Severe NAUSEA & Verified 10/01/24 23:17 VOMITING TEGADERM BANDAGE Allergy Intermediate RASH Uncoded 10/01/24 23:17 morphine Allergy Unknown vomit Uncoded 10/01/24 23:17 tape Allergy Unknown rash Uncoded 10/01/24 23:17 From DEMEROL AdvReac Severe NAUSEA & Uncoded 10/01/24 23:17 VOMITING Review of Systems 2 Review of Systems: Constitutional : No Weight loss, No Fever, No Chills, No Night Sweats, No Fatigue, No Malaise ENT/Mouth : No Hearing loss, No Ear Pain, No Nasal Congestion, No Sinus Pain, No Hoarseness, No sore throat, No Rhinorrhea, No Swallowing Difficulty Eyes: No Eye Pain, No Swelling, No Redness, No Foreign Body, No Discharge, No Vision Changes Cardiovascular : No Chest Pain, No SOB, No Dyspnea on Exertion, No Orthopnea, No Edema, complaining of Palpitations Respiratory : No Cough, No Sputum, No Wheezing, No Smoke Exposure, No Dyspnea Gastrointestinal : No Nausea, No Vomiting, No Diarrhea, No Constipation, No abdominal Pain, No Hematochezia, No Melena Genitourinary : no irregular bleeding, No Dysuria, No Urinary Frequency, No Hematuria, No Urinary Incontinence, No Urgency, No Flank Pain, No Urinary Flow Changes, No Hesitancy Musculoskeletal : No joint pain, No Myalgias, No Joint Swelling Skin : No Skin Lesions, No rash Neuro : No Weakness, No Numbness, No Paresthesias, No Loss of Consciousness, No Dizziness, No Headache Psych : No Anxiety/Panic, No Depression, No SI/HI/AH/VH, No Social Issues, Heme/Lymph: No Bruising, No Bleeding,No Lymphadenopathy Endocrine : No Polyuria, No Polydipsia, No Temperature Intolerance COUNT INCLUDES THE [facility] Past Medical History Medical History Bipolar 1 disorder PTSD (post-traumatic stress disorder) Acute anxiety Depression History of recurrent pneumonia History of Pseudomonas pneumonia Bipolar disorder Menstrual migraine Allergic asthma Dyslipidemia Type 2 diabetes mellitus FMF (familial Mediterranean fever) Primary immunodeficiency disorder Surgical History History of endoscopy (~11/2023) History of ankle surgery History of umbilical hernia repair History of dilation and curettage History of arthroscopy History of oral surgery History of delivery Social History Social History Household Members: Children Household Members Other:: dog Housing: House Do you presently have visiting nurse or other home services: No Alcohol intake: never Patient Tobacco Use Status: Never used Tobacco e-Cigarette/Vaping Use: Never Used Second Hand Smoke Exposure: No Advance Directives: Yes Advance Directives on File: Yes Advance Directives Date on File: 09/30/24 service: No Sexual orientation: Straight/Heterosexual Physical Exam ED Vital Signs: Vital Signs - 24 hr 10/01/24 23:15 10/02/24 00:34 Temperature 98 F 97.8 F Pulse Rate 90 85 Respiratory Rate 16 18 Blood Pressure 112/79 111/77 Pulse Oximetry 97 93 Oxygen Delivery Method Room Air Room Air BMI result Body Mass Index 27.8 Const Other: Appearance: Alert. Oriented X3. No acute distress. Eyes: Pupils equal, round and reactive to light. ENT: Pharynx normal. Neck: Normal inspection. Neck supple. No lymph nodes noted. No crepitus CVS: Normal heart rate and rhythm. Pulses normal. Normal S1 and S2 Respiratory: No respiratory distress. Breath sounds normal. No Wheezing. No rales Abdomen: Soft and nontender. No rigidity. No distention. Skin: Skin warm and dry. Normal skin color. Normal skin turgor. Patient has a blue coloration of the left hand, per patient this is paint Extremities: No lower extremity edema. No Lacerations. No Rash Neuro: Oriented X 3. No motor deficit. No sensory deficit. Moving all extremities. No slurred speech. CN 2 through 12 grossly intact Psych: calm, cooperative, normal affect Course Course Course Narrative: Patient took levothyroxine instead of hydroxyzine. Today patient complaining of palpitations. Otherwise patient has no complaints. All of patient's labs pending Medical Decision Making Medical Decision Making [facility] Narrative: My interpretation of labs: At baseline hematology and chemistry, normal TSH My interpretation of EKG: Normal sinus rhythm, heart rate 81, no ST segment depression or elevation, no T-wave inversion, QTC 473 Patient has been on the monitor since arrival, no arrhythmias have been detected. Differential Diagnosis Differential Diagnoses: The differential diagnosis associated with the presentation includes (Hyperthyroidism, accident medication overdose, arrhythmias) Lab Data [facility] Lab Attestation statement: I reviewed the patient's lab results. 10/01/24 23:47 10/01/24 23:47 Labs: Lab Results 10/01/24 Range/Units 23:47 WBC 5.6 (4.8-10.8) X10*3/uL RBC 5.46 (4.20-5.50) X10*6/uL Hgb 12.6 (12.0-16.0) g/dl Hct 39.6 (37.0-47.0) % MCV 72.5 L (80.0-98.0) fL MCH 23.1 L (27.0-33.0) pg MCHC 31.8 (31.0-35.0) g/dl RDW 20.8 H (11.0-16.0) % Plt Count 250 (160-400) X10*3/uL MPV 9.5 (9.4-12.3) fL Immature Gran % (Auto) 0.4 (0.0-0.4) % Neut % (Auto) 50.1 (45-73) % Lymph % (Auto) 33.5 (20-40) % [place] % (Auto) 10.8 (2-11) % Eos % (Auto) 3.6 (0-4) % Baso % (Auto) 1.6 (0-2) % Lymph # (Auto) 1.9 (1.2-4.9) X10*3/uL [place] # (Auto) 0.6 (0.1-1.2) X10*3/uL Eos # (Auto) 0.2 (0.0-0.4) X10*3/uL Baso # (Auto) 0.1 (0.0-0.2) X10*3/uL Abs Immat Gran (auto) 0.02 (0.00-0.03) X10*3/uL Absolute Neuts (auto) 2.8 (2.0-8.3) x10*3/uL Absolute Nucleated RBC 0.000 (0.0-0.012) X10*3/uL Nucleated RBC % (auto) 0.0 (0.0-0.2) /100WBC Sodium 142 (135-145) mmol/L Potassium 3.4 (3.3-5.1) mmol/L Chloride 111 H (96-108) mmol/L Carbon Dioxide 22 (22-29) mmol/L Anion Gap 12 (12-20) BUN 12 (9-16) mg/dL Creatinine 0.85 (0.5-1.4) mg/dL Estim Creat Clear Calc 79.5 Estimated GFR > 60 Random Glucose 114 (60-115) mg/dL Calcium 9.1 (8.4-10.2) mg/dL Total Bilirubin 0.2 (0.0-1.0) mg/dL Direct Bilirubin < 0.2 (0.0-0.5) mg/dL AST 39 H (5-31) U/L ALT 48 H (0-31) U/L Alkaline Phosphatase 121 H (39-117) U/L Troponin I High Sens < 2.7 (<3.5-17.0) ng/L Total Protein 7.4 (6.5-8.0) g/dL Albumin 4.5 (3.5-5.0) g/dL TSH 2.28 (0.32-4.0) uIU/mL Critical Care Time Critical Care Time Critical Care Time: Yes Total Critical Care Time: 35 Attestation: I have personally provided critical care time. Time includes review of lab data, radiology results, discussion with consultants, and monitoring for potential decompensation. Intervention performed as documented. Discharge Plan Discharge Clinical Impression: Palpitations, Accidental drug ingestion Patient Disposition: Home, Self-Care Instructions: Heart Palpitations (ED) Additional Instructions: Please follow-up with your primary care physician tomorrow. If you have any worsening or new symptoms, please return to the emergency room or call 911 Prescriptions: No Action montelukast 10 mg tablet 1 tab PO BEDTIME omeprazole 40 mg capsule,delayed release(DR/EC) 40 mg PO BID@0630,1630 colchicine 0.6 mg tablet 1.8 mg PO DAILY norethindrone (contraceptive) [Incassia] 0.35 mg Tablet 0.35 mg PO DAILY insulin lispro 100 unit/mL insulin pen See Protocol SUBCUT TIDAC PRN (Reason: Blood Sugar Spikes) Protocol: Insulin Correction Scale Less than or equal to 110 ---- Give (units): 0 111 to 150 Give (units): 0 151 to 200 Give (units): 0 201 to 250 Give (units): 2 251 to 300 Give (units): 4 301 to 350 Give (units): 6 Greater than 350 Give (units): 8 Call MD if Blood Glucose > : 350 Rx Instructions: Patient takes while on Prednisone regimens for blood sugar spikes. multivitamin [Daily-Enid] Tablet 1 tab PO DAILY Qty: 0 0RF venlafaxine 25 mg Tablet 75 mg PO BEDTIME Qty: 90 0RF lamotrigine 25 mg Tablet 50 mg PO DAILY 30 Days Qty: 60 0RF oxcarbazepine 600 mg tablet 900 mg PO BID Qty: 90 0RF topiramate 50 mg tablet 50 mg PO BID Qty: 60 0RF lamotrigine 200 mg tablet extended release 24hr 200 mg PO BEDTIME Qty: 30 0RF rizatriptan 10 mg Tablet 10 mg PO BID PRN (Reason: Migraine Headache) Rx Instructions: do not exceed 3 doses per 24 hrs docusate sodium 100 mg capsule 100 mg PO BID PRN (Reason: constipation) Combivent Respimat 20-100 mcg/actuation mist 1 puff INHALATION QID PRN (Reason: SOB) magnesium oxide 400 mg magnesium Tablet 400 mg PO DAILY@1200 Rx Instructions: Take once daily at noon starting on 04/17/24 Emgality Pen 120 mg/mL pen injector 120 mg subcut QMONTH prednisone 20 mg tablet 20 - 40 mg PO DAILY PRN (Reason: familial Mediterranean fever) levothyroxine 50 mcg tablet 50 mcg PO DAILY@0600 Gammagard S-D (IgA < 1 mcg/mL) 10 gram Recon Soln 30 g IV Q3W Ilaris (PF) 150 mg/mL Solution 150 mg SUBCUT Q4W Ozempic 0.25 mg or 0.5 mg (2 mg/3 mL) pen injector 0.5 mg subcut SA cyclobenzaprine 10 mg Tablet 10 mg PO BEDTIME PRN (Reason: Muscle Spasm) hydroxyzine HCl 25 mg tablet 25 - 50 mg PO TID PRN (Reason: anxiety) blbfdafaph-lohwqgdncrszj-psus 50-300-40 mg capsule 1 cap PO DAILY PRN (Reason: Migraine Headache) gabapentin 600 mg tablet 600 mg PO BID acetaminophen 500 mg Tablet 500 mg PO Q6H MDD 2000mg PRN (Reason: Pain) melatonin 10 mg capsule 10 mg PO BEDTIME PRN (Reason: Insomnia) Zyrtec 10 mg capsule 10 mg PO BID ondansetron HCl 4 mg tablet 4 mg PO Q8H PRN (Reason: Nausea) atorvastatin 40 mg tablet 40 mg PO BEDTIME ferrous gluconate 324 mg (38 mg iron) tablet 324 mg PO DAILY metformin 1,000 mg tablet 1,000 mg PO BID amiloride 5 mg tablet 10 mg PO DAILY Xolair 300 mg/2 mL syringe 300 mg subcut QMONTH Print Language: Mauritanian
--- OUTSIDE RECORDS SUMMARY | 2024-10-01 23:36 | XMS_ITS | Encounter Summary ---
Author Organization [facility] Address [address] [place] [address] Care Team Providers Care Associate Curator Name Role Phone MilesTristenca Primary Care Provider Encounter Details Date Type Department Care Team (Late st Contact Info) Description 10/01/2024 Telephone [facility] [address] [place] [id number] Powder Operator: Stefany Ramirez LPN [place], [place] Social History Tobacco Use Types Packs/Day [...] Telephone Encounter - Stefany Miller LPN - 10/01/2024 12:07 PM EDT FYI she was just discharged from [facility]. She was told she had a TIA. documented in this encounter Plan of Treatment Upcoming Encounters Date Type Department Care Team (Late st Contact Info) Description 11/18/2024 10:30 AM EDT Office Visit [facility] [address] [place] [phone] Powder Operator: Adrienne Gutiérrez MD [address] [place] [phone] documented as of this encounter Visit Diagnoses Not on filedocumented in this encounter Care Teams Associate Curator Relationship Specialty Start Date End Date Bernie Aquino [address] [place] [phone] PCP - General 08/22/21 documented as of this encounter
--- OUTSIDE RECORDS SUMMARY | 2024-10-01 23:36 | XMS_ITS | Data Portability ---
Author Organization [place] - [facility] Address [address] [place] [address] Assessment Encounter Date Assessment Date Assessment LastModified [...] recorded. Lab culture, urine - [facility] by [facility] 2018 019 [facility] (Centralized Electronic Ordering - All Locations), Patient Can Go To The Location Of Their Choice, [id number] 9 10:09:39 CBC w/ auto diff 2018 019 [facility] (Centralized Electronic Ordering - All Locations), Patient Can Go To The Location Of Their Choice, [id number] 9 01:55:55 urinalysis, dipstick 2018 019 [facility] - Home, [address] [place], [address], 9 13:13:26 BMP + ionized calcium, serum or plasma 2018 019 [facility]EX [facility] - Home, [address] [place], [address], 9 13:13:26 Referral None recorded. Procedures None recorded. Surgeries None recorded. Imaging None recorded. Medication Orders None recorded. Patient TargetsNo targets recorded. Patient Instructions Encounter Date Encounter Id Patient Instructions Last Modified By Organization Details Last Modified Time 02/03/2019 [id number] YOU WERE SEEN FO R FLANK PAIN [...] MANAGEMENT Thank you for your visit with [facility] today. We cannot always find [...] in your condition between 8am-10pm, please call [facility] at [phone] to help navigate your care. Renal Colic [...] extra Tylenol/Acetaminop hen if you are taking Loring/Vicodin/Perc ocet. Depending on the location of your [...] condition between 8am-10pm, please call [facility] at [phone] to help navigate your care. [email or web address] Not available 02/03/2019 13:14:24 Reason for Referral None Reported. Results Created Date Observation Date Name Description Value Unit Range Abnormal Flag Note LastModifiedBy Organization Detail LastModifiedTime 02/04/20 19 02/03/2019 BMP + ioniz ed calci um, serum or plasm a Na 143 mmol/ L 138-14 6 Not Available Spr - Home [address] [place], [address], 02/03/2019 12:56:51 02/04/2002/03/2019 BMP + ioniz ed calci um, serum or plasm a K 3.7 mmol/ L 3.5-4. 9 Not Available Spr - Home [address] [place], [address], 02/03/2019 12:56:51 02/04/2002/03/2019 BMP + ioniz ed calci um, serum or plasm a cL 108 mmol/ L 98-109 Not Available Spr - Home [address] [place], [address], 02/03/2019 12:56:51 02/04/2002/03/2019 BMP + ioniz ed calci um, serum or plasm a ica 1.30 mmol/ L 1.12-1 .32 Not Available Spr - Home [address] [place], [address], 02/03/2019 12:56:51 02/04/2002/03/2019 BMP + ioniz ed calci um, serum or plasm a TCO2 22 mmol/ L 24-29 Not Available Spr - Home [address] [place], [address], 02/03/2019 12:56:51 02/04/2002/03/2019 BMP + ioniz ed calci um, serum or plasm a glu 99 mg/dL 70-105 Not Available Spr - Home [address] [place], [address], 02/03/2019 12:56:51 02/04/2002/03/2019 BMP + ioniz ed calci um, serum or plasm a BUN 18 mg/dL 8-26 Not Available Spr - Home [address] [place], [address], 02/03/2019 12:56:51 02/04/2002/03/2019 BMP + ioniz ed calci um, serum or plasm a crea 0.9 mg/dL .6-1.3 Not Available Spr - Home [address] [place], [address], 02/03/2019 12:56:51 02/04/2002/03/2019 BMP + ioniz ed calci um, serum or plasm a HCT 38 %_pcv 38-51 Not Available Spr - Home [address] [place], [address], 02/03/2019 12:56:51 02/04/2002/03/2019 BMP + ioniz ed calci um, serum or plasm a Hb 12.9 g/dL 12-17 Not Available Spr - Home [address] [place], [address], 02/03/2019 12:56:51 02/04/2002/03/2019 BMP + ioniz ed calci um, serum or plasm a angap 17 mmol/ L 10-20 Not Available Spr - Home [address] [place], [address], 02/03/2019 12:56:51 02/04/2002/03/2019 urina lysis , dipst ick Appearance clear Not Available Spr - H [place]me [address] [place], [address], 02/03/2019 12:44:42 02/04/2002/03/2019 urina lysis , dipst ick Color light yellow Not Available Spr - Home [address] [place], [address], 02/03/2019 12:44:42 02/04/2002/03/2019 urina lysis , dipst ick Glucose negati ve Not Available Spr - Home [address] [place], [address], 02/03/2019 12:44:42 02/04/2002/03/2019 urina lysis , dipst ick Bilirubin negati ve Not Available Spr - Home [address] [place], [address], 02/03/2019 12:44:42 02/04/2002/03/2019 urina lysis , dipst ick Ketones NEG Not Available Spr - Home [address] [place], [address], 02/03/2019 12:44:42 02/04/2002/03/2019 urina lysis , dipst ick Sp. [place] 1.010 Not Available Spr - Home [address] [place], [address], 02/03/2019 12:44:42 02/04/2002/03/2019 urina lysis , dipst ick Blood NEG Not Available Spr - Home [address] [place], [address], 02/03/2019 12:44:42 02/04/2002/03/2019 urina lysis , dipst ick pH 6.0 Not Available Spr - Home [address] [place], [address], 02/03/2019 12:44:42 02/04/2002/03/2019 urina lysis , dipst ick Protein negati ve Not Available Spr - Home [address] [place], [address], 02/03/2019 12:44:42 02/04/2002/03/2019 urina lysis , dipst ick Urobilirubin negati ve Not Available Spr - Home [address] [place], [address], 02/03/2019 12:44:42 02/04/2002/03/2019 urina lysis , dipst ick Nitrites NEG Not Available Spr - Tal e [address] [place], [address], 02/03/2019 12:44:42 02/04/2002/03/2019 urina lysis , dipst ick Leukocytes ++ Not Available Spr - H ome [address] [place], [address], 02/03/2019 12:44:42 02/04/2002/04/2019 CBC w/ auto diff [...] Go To The Location Of Their Choice, [address] 02/05/2019 10:09:39 02/04/20 19 02/05/2019 cultu re, urine report status FINAL 2018 Not Available [facility] (Centralized Electronic Ordering - All Locations) Patient Can Go To The Location Of Their Choice, [address] 02/05/2019 10:09:39 Result Notes None recorded. Procedures Surgical History Date Name Laterality Status Provider Name and Address Organization Details Recorded Time 02/04/20 19 Venipuncture - DH completed ROMY SHOOK [address], [place], [address], [place] [facility] 02/05/2019 23:27:28 Imaging Results None recorded. Procedure Notes None recorded. Medical Equipment None Reported. Allergies Allergen ID Allergen Name Allergen Category Reaction Reaction Severity Criticality Documentation Date Start Date Code Code System Note Provider Name and Address Organization Details Recorded Time 46408 Demerol medicatio n Not available Not available Not available 02/03/2019 79914 1 RxNorm ROMY SHOOK [address] [place], [address], [place] [facility] 9 12:37:19 55375 morphine medicatio n Not available Not available Not available 02/03/2019 7052 RxNorm ROMY SHOOK [address], [place], [address], [place] [facility] 9 12:37:29 92888 Reglan medicatio n Not available Not available Not available 02/03/2019 9230 RxNorm ROMY SHOOK [address], [place], [address], [place] [facility] 9 12:37:40 17266 Flonase medicatio n Not available Not available Not available 02/03/2019 33331 RxNorm ROMY SHOOK [address], [place], [address], [place] [facility] 9 [...] 108 mm[Hg] 76 mm[Hg] Not Available [facility] 9 12:43:08 Social History Question Answer Notes LastModified by Organizat ion Details LastModified Time Tobacco Smoking Status Never Smoker ROMY SHOOK [address] [place], [address], [place] [facility] 02/03/2019 12:40:20 How Many [...] Coronary Artery Disease N High Cholesterol Y Cancer N Pulmonary Embolism N Stroke Y Hypertension N Asthma Y COPD N Depression Y Kidney Disease N Gynecological HistoryNo gynecological history recorded. Obstetrics History GPAL:G 0 P 0 0 0 0 Past Encounters Encounter ID Performer Location Encounter Start Date Encounter Closed Date Diagnosis/Indication Diagnosis SNOMED-CT Code Diagnosis ICD10 Code Diagnosis Note [id number] ROMY SHOOK [facility] - HOME [address] [place] [address] 02/03/2019 12:35:06 02/05/2019 11:44:06 Right flank pain 585924311 R10.9 Acute urin dunia tract infection 255663122 N39.0 History of calculus of kidney 135716375 Z87.442 Primary im mune deficiency disorder 07990217 D84.9 Health Concerns Section Related Observation LastModified by Organization Detai ls LastModified Time None Recorded Concern Status LastModified by Organization Details LastModified Time None Recorded Advance Directives Directive None Recorded Payers Insurance Date Sequence Insurance Name Policy Number Policy Brambila Covered Member ID Brambila Member ID Guarantor Name 02/06/2019 2 [place] [facility] Meredith Garcia [id number] Meredith Garcia 02/06/2019 1 [facility] Meredith Garcia [id number] Meredith Arreguins 04/28/2020 2 [place] [facility] Meredith Garcia [id number] Meredith Garcia 02/06/2019 1 [facility] Meredith Garcia [id number] Meredith Arreguins 04/28/2020 1 [facility] [id number] Meredith Garcia [id number] Meredith Garcia 02/06/2019 1 *SELF PAY* Meredith Garcia [id number] Meredith Garcia Notes Date Note Type Note [...] primary immunodeficiency; migraines ROMY SHOOK [address] [place], [address], [place] [facility] 02/05/2019 23:27:34 OBGyn Episode No OBEpisode recorded.
--- OUTSIDE RECORDS SUMMARY | 2024-10-01 23:36 | XMS_ITS | Data Portability ---
Author Organization [place] - [facility], [facility] Address [address] [address] Assessment Encounter Date Assessment Date Assessment LastModified [...] is ineffective, recommend follow up with their dentist.Referral to physical therapist who specializes in TMJ disorders was provided. [email or web address] Not available 05/23/2024 15:10:39 Plan of Treatment Reminders Order Date Submit Date Provider Last Modified By Organization Details Last Modified Time Details Appointments None recorded . Lab None recorded . Referral physical therapis t referral 2024 025 [email or web address] [facility], [address] [facility] [address], [place], [address], 12:41:45 Procedures None recorded . Surgeries None recorded . Imaging CT, sinuses, w/o contrast 2023 024 becca Ents [facility], [address] [place] [address], [address], 10:39:49 Medication Orders budesoni de 0.5 mg/2 mL suspensi on for nebuliza tion 2023 024 [id number], [address] [facility], [place], [address], 10:37:41 Patient TargetsNo targets recorded. Patient InstructionsNo instructions recorded. Reason for Referral Physical Therapist Referral for Pain of left temporomandibular joint Referring Physician: Juanita Vo, Otolaryngology, Encounter Date: 05/23/2024 Results Created Date Observation Date Name Description Value Unit Range Abnormal Flag Note LastModifiedBy Organization Detail LastModifiedTime 10/01/[address], sinus es, w/o contr ast No observ ation record ed. evelyn Ents Of [address], [address], 10/01/2023 10:36:08 10/17/19 24 10/01/2023 CT, sinus es, w/o contr ast No observ ation record ed. [email or web address] Of [address], [address], 10/17/2023 12:45:07 01/02/20 24 05/28/2019 imagi ng/di [...] Organization Details Recorded Time Nasal congestio n 32652900 Active 2019 Nasal congestio n; Note: Date Diagnosed : 05/26/2019 1:39 PM (R09.81) Not Available [facility] 4 02:47:40 Immunodef iciency disorder 781933933 Active 2019 Immunodef iciency, unspecifi ed; Note: Changed from D84 to D84.9 ( 1 11:21 AM) , Date Diagnosed : 05/26/2019 1:39 PM (D84) Not Available [facility] 4 02:47:43 Sensorine ural hearing loss 57159547 Active 2020 Sensorine ural hearing loss, unilatera l, left ear, with unrestric dariana hearing on the contralat eral side; Note: Date Diagnosed : 01/20/2021 1:26 PM (H90.42) Not Available [facility] 4 02:47:40 Chronic sinusitis 17882929 Active 2020 Sinusitis (chronic) NOS; Note: Date Diagnosed : 1 2:03 PM (J32.9) Not Available [facility] 4 02:47:42 Posterior rhinorrhe a 62078483 Active 2019 Postnasal drip; Note: Date Diagnosed : 05/26/2019 2:03 PM (R09.82) Not Available [facility] 4 02:47:46 Abnormal auditory perceptio n 63137526 Active 2021 Other abnormal auditory perceptio ns, left ear; Note: Date Diagnosed : 10/12/2021 11:06 AM (H93.292) Not Available [facility] 4 02:47:41 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 - [facility] 4 10:16:49 Perennial allergic rhinitis 553103773 Active 2023 LIDYA MINOR MD [address] [facility] [place],[facility], [place], [address] , [place] - [facility] 4 10:17:00 Hyperimmu noglobuli n E syndrome 03486668 Active 2023 LIDYA MINOR MD [address] [facility] [place] [address], [place], [address] , [place] - [facility] 4 10:17:16 Moderate persisten t asthma 308601747 Active 2023 LIDYA MINOR MD [address] [facility] [place] [address], [place], [address] , [place] - [facility] 4 10:17:24 Polyp of nasal cavity 953742039 Active 2023 LIDYA MINOR MD [address] [facility],[place] [address], [place], [address] , [place] - [facility] 4 10:36:51 Pain of left temporoma ndibular joint 88080316210 853543 Active 2024 JUANITA VO PA-C [address] [facility],[place] [address], [place], [address] , [place] - [facility] 5 13:37:29 Problem Notes None recorded. Procedures Surgical History Date Name Laterality Status Provider Name and Address Organization Details Recorded Time Air & Speech Audio with Tymps - 76018, 12515 & 24504 completed TAWANNA WEAVER [address] [facility] [place] [address], [place], [address], [place] - [facility] 05/23/2024 13:49:00 JMSNasal/Sinus Endoscopy completed LIDYA URIBE MD [address] [facility] [place] [address], [place], [address], [facility] - [facility] 10/01/2023 10:35:41 functional endoscopic sinus surgery completed LIDYA URIBE MD [address] [facility] [address], [address], [place] - [facility] 09/30/2023 14:24:57 simple extraction of tooth completed LIDYA URIBE MD [address], [address], [place] - [facility] 09/30/2023 14:25:15 dilation and curettage completed LIDYA URIBE MD [address] [place] [address], [address], [place] - [facility] 09/30/2023 14:26:03 arthroscopy of knee completed LIDYA URIBE MD [address] [place] [address], [address], [place] [facility] 09/30/2023 14:26:15 Imaging Results Imaging Date Name Status LastModified by [facility] Details LastModified Time 10/01/2023 CT, sinuses, w/o contrast completed evelyn Ents [address], [address], 10/01/2023 10:36:08 10/01/2023 CT, sinuses, w/o contrast completed evelyn [facility] Of [address], [address], 10/17/2023 12:45:07 05/28/2019 imaging/diagno stic result completed [...] Name and Address Organization Details Recorded Time 933136 Flonase medicatio n other Not available Not available 09/25/2023 85282 RxNorm React ion: unkno wn, unspe cifie d;; Not Available [facility] 4 01:19:32 804142 Demerol medicatio n Not available Not available Not available 10/01/2023 45412 1 RxNorm Serge murphy [place] - [facility] 4 10:10:31 758335 morphine medicatio n Not available Not available Not available 10/01/2023 7052 RxNorm Serge murphy [place] - [facility] 4 10:10:40 Medications Name Sig Start [...] Not Available gabapenti n 600 mg tablet 08/29/ 2019 12/14 /2021 completed Medicati on ID: [id number] D uration Value: 30 Brand Name: gabapent [...] 10 mg tablet active Medicati on ID: 763593 B rand Name: atorvast atin Sen d [...] 8 mg tablet active Medicati on ID: 325165 B rand Name: ondanset sharon HCl Send [...] mg tablet 05/23 completed Medicati on ID: [id number] D uration Value: 30 Brand Name: benztrop ine Send Method: E-Prescr ibed Sub s Allowed: subs JENNIFER cunningham Instruct ion: TAKE 1/2 TABLET BY MOUTH IN THE MORNING AND 1 TABLET BY MOUTH AT BEDTI [place] Medic ationGen ericName : benztrop ine Not [...] elayed release 09/30 completed Medicati on ID: [id number] D uration Value: 90 Brand Name: omeprazo le Send Method: E-Prescr ibed Sub s Allowed: subs JENNIFER Mays al Instruct ion: TAKE ONE CAPSULE BY MOUTH TWICE A DAY Medi cationGe nericNam e: omeprazo le Medic ation ID: [id number] D uration Value: 90 Brand Name: omeprazo le Send Method: E-Prescr ibed Sub s Allowed: subs [place] Speci al Instruct ion: TAKE ONE CAPSULE BY MOUTH TWICE A DAY [facility] Saqib nerarlethNam e: omeprazo le Not Available Not Available [...] mg tablet 04/26 completed Medicati on ID: [id number] D uration Value: 30 Brand Name: folic acid Sen d Method: E-Prescr ibed Sub s Allowed: subs [place] Speci al Instruct ion: TAKE FOUR TABLETS BY MOUTH EVERY DAY [facility] Saqib Santo e: folic acid Not Available Not Available [...] 24 hr 2019 active Medicati on ID: [id number] D uration Value: 30 Brand Name: metformi [...] mg tablet 2019 active Medicati on ID: 396688 D uration Value: 30 Brand Name: lisinopr il Send Method: E-Prescr ibed Sub s Allowed: subs [place] Speci al Instruct ion: TAKE ONE TABLET BY MOUTH EVERY DAY Medi cationGe nericNam e: lisinopr il Not Available Not Available Not Available ipratropi um bromide 21 mcg (0.03 %) nasal spray 2 spray 04/26 completed Medicati on ID: [id number] P [place] By Name: Jerome Sauer nd Name: [...] mg tablet 04/26 completed Medicati on ID: [id number] D uration Value: 30 Brand Name: Latuda [...] mg capsule 04/26 completed Medicati on ID: [id number] D uration Value: 30 Brand Name: Vraylar Send Method: E-Prescr ibed Sub s Allowed: subs [place] Speci al Instruct ion: TAKE ONE CAPSULE BY MOUTH EVERY DAY IN THE MORNING Medicati onGeneri cName: Vraylar Medicati on ID: [id number] D uration Value: 30 Brand Name: Vraylar [...] Updated DateTime 10/01/2023 162.56 cm 29 kg/m2 46776.11 g Serge [facility] 10/01/2023 10:14:43 Date Recorded Body height Body mass index (BMI) Body weight Provider Name and Address Organization Details Last Updated DateTime 05/23/2024 162.56 cm 29 kg/m2 50757.11 g Trish Montez [place] - [facility] 05/23/2024 13:23:27 Social History None recorded. Functional Status Question Answer Note LastModified by Organizat ion Details LastModified Time Do you use any illicit or recreational drugs? No [email or web address] Information not available 10/01/2023 Do you or have you ever used any other forms of tobacco or nicotine? No Information not available 10/01/2023 What is your level of alcohol consumption? None Information not available 10/01/2023 Mental Status None recorded. Family History Nothing Reported. Medical History Condition Response Allergies/Hayfever N Heart Problems N Emphysema N Migraines N Thyroid Problems N Depression Y COPD N Glaucoma N Nasal or Sinus Problems N Anemia N Immune System Disorder N Anesthesia Complications N Heart Attack ([place]) N Other Skin Condition N Diabetes Y [...] Note [id number] LIDYA MINOR MD [facility] [address] [address] 10/01/2023 09:53:23 10/01/2023 10:39:48 Chronic cough 91114718 R05.3 Posterior rhinorrhea 758 11417 R09.82 Perennial allergic rhinitis 495288848 J30.89 Hypogammaglobulinemia 11 8718937 D80.1 Hyperimmun oglobulin E syndrome 79162938 D82.4 Moderate p ersistent asthma 714128035 J45.40 Chronic sinusitis 944621 00 J32.9 Polyp of nasal cavity 73 6459519 J33.0 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 There is evidence of prior sinus surgery with an adhesion on the right side. Bilateral diffuse maxillary sinus thickening noted. Suggest topical steroid irrigation s and follow-up in 3 months. No indication for surgical interventi on at the present time [id number] JUANITA VO PA-C [facility] [address] [address] 05/23/2024 13:20:39 05/23/2024 14:18:31 Pain of left temporomandibular joint 1359498471 7246877 M26.622 Right Ear:Normal hearing with excellent speech [...] Brambila Member ID Guarantor Name 06/10/2024 2 [place] [facility] Meredith Garcia [id number] Meredith Garcia 08/08/2024 3 [place] [facility] Meredith Garcia [id number] Meredith Garcia 06/10/2024 2 [place] [facility] Meredith Garcia [id number] Meredith Garcia 06/10/2024 1 BCBS-ID [facility] [id number] Pineda Khanna Radha [id number] Meredith Garcia Notes Date Note Type Note [...] allergy with the scent. LIDYA URIBE MD [address] [place] [address], [address], [facility] - [facility] 10/01/2023 12:13:54 5 text/html 48 year [...] unintentional weight loss . LIDYA URIBE MD [address] [place] [address], [address], [place] - [facility] 05/23/2024 16:54:36 OBGyn Episode No OBEpisode recorded.
--- OUTSIDE RECORDS SUMMARY | 2024-10-01 23:36 | XMS_ITS | Referral Summary ---
Author Organization [facility] Address [address] [place] [address] Care Team Providers Care School Treasurer Name Role Phone Bernie Aquino Primary Care Provider [phone] Encounters Date Type Department Care Team Description 10/01/2024 Telephone [facility] [address] [place] [phone] Prick Stitcher: Stefany Ramirez LPN 09/05/2024 myChart Message [facility] Financial Clearance Department [address] [place] [address] [phone] Mychart, Generic Provider Prescritption PA 09/04/2024 Orders Only [facility] [address] [place] [address] 13575 Rajesh Black NP 09/04/2024 Telephone [facility] [address] [place] [address]505 Prick Stitcher: Bernie Huitron LPN 08/07/2024 Documentation [facility] Building [address] [place] [address]9619 Marcell Shen CPhT Prior Authorization ([place] for Emgality 120mg/ml pen Injector, #06/10, through [employer] [PA# [id number]]. Effective 07/12/24 - 08/06/25. May fill with [facility], $4.80 copay/) 08/07/2024 Documentation [facility] Building [address] [place] [address]31 Marcell Shen CPhT Prior Authorization ([place] Approved for [facility] ODT 75mg, #16/30, through [employer] [PA# [id number]]. Effective 07/12/24 - 08/06/25. May fill with [facility], $4.80 copay/) 08/06/2024 Telephone [facility] [address] [place] [address] 64382 Rajesh Black NP 08/05/2024 1:00 PM EDT Office Visit [facility] [address] [place] [address] 32600 Prick Stitcher: Rajesh Echevarria NP Intractable migraine with aura without status migrainosus (Primary Dx); Chronic migraine without aura without status migrainosus, not intractable 07/29/2024 Orders Only [facility] [address] [place] [address] Prick Stitcher: Caitlyn Sanchez MD 07/28/2024 Telephone [facility] [address] [place] [address] [phone] Prick Stitcher: Sari Workman Telephone Intake, Staff PAC Patient [...] Description 11/18/2024 10:30 AM EDT Office Visit [facility] [address] [place] [address] Prick Stitcher: Adrienne Gutiérrez MD [address] [place] [phone] Procedures * Due to [employer] law, this organization might not be sharing negative HIV tests. Procedure Name Priority Date/Time Associated Diagnosis Comments IMAGING - SCANNED Routine 07/29/2024 8:5 8 AM EDT COMPREHENSIVE METABOLIC PANEL Routine 04/20/2023 9:56 AM EST Chronic migraine without aura without status migrainosus, not intractable HM DIABETES EYE EXAM 11/10/2021 from Last 3 Months or Most Recently Relevant to Health Maintenance Results * Due to [employer] law, this organization might not be sharing negative HIV tests. * IMAGING - SCANNED (07/29/2024 8:58 AM EDT) Anatomical Region Laterality Modality Other us Unknown Provider SCANNED PROCEDURES Final Res ult * (ABNORMAL) Comprehensive Metabolic Panel (04/20/2023 9:56 AM EST) NA 141 135 - 145 mmol/L 04/20/2023 11:01 AM EST [facility] K 3.6 3.5 - 5.3 mmol/L 04/20/2023 11:01 AM EST [facility] Cl 107 97 - 110 mmol/L 04/20/2023 11:01 AM EST [facility] CO2 21(L) 24 - 32 mmol/L 04/20/2023 11:01 AM EST [facility] Anion Gap 13 5 - 15 04/20/2023 11:01 AM EST [facility] Glucose 139(H) 70 - 99 mg/dL 04/20/2023 11:01 AM EST [facility] Creatinine 0.89 0.50 - 1.20 mg/dL 04/20/2023 11:01 AM EST [facility] Calcium 9.1 8.7 - 10.7 mg/dL 04/20/2023 11:01 AM EST [facility] Total Protein 7.1 6.0 - 8.0 g/dL 04/20/2023 11:01 AM EST [facility] Albumin 4.4 3.5 - 4.8 g/dL 04/20/2023 11:01 AM EST [facility] Bilirubin, Total 0.2(L) 0.3 - 1.2 mg/dL 04/20/2023 11:01 AM EST [facility] Alkaline Phosphatase 115 30 - 115 U/L 04/20/2023 11:01 AM EST [facility] AST 14 10 - 40 U/L 04/20/2023 11:01 AM EST [facility] ALT 19 10 - 40 U/L 04/20/2023 11:01 AM EST [facility] BUN 19 7 - 23 mg/dL 04/20/2023 11:01 AM EST [facility] eGFR 81 >=60 mL/min/1. 73m2 04/20/2023 11:01 AM EST [facility] Comment:The estimated glomer ular [...] MD LAB BLOOD ORDERABLES Final R esult [facility] [address] [place] [address], [place] * DIABETES EYE EXAM (11/10/2021) 11/10/2021 us Onbase Scan [facility] Final Resu lt from Last 3 Months or Most Recently Relevant to Health Maintenance Insurance MEDICARE [facility] Advance Directives Documents on File Type Date Recorded Patient Supervisor Sandblaster Expl [facility] Care Proxy 02/14/2017 2:27 PM Care Teams School Treasurer Relationship Specialty Start Date End Date Bernie Aquino [address] [place] [phone] PCP - General 08/22/21
--- OUTSIDE RECORDS SUMMARY | 2024-10-01 23:36 | XMS_ITS | Encounter Summary ---
Author Organization [facility] Address [address] [place] [address] Care Team Providers Care Plans Examiner Name Role Phone Bernie Aquino SURGICAL SUPERVISOR Primary Care Provider [phone] Encounter Details Date Type Department Care Team (Late st Contact Info) Description 09/26/2024 Telephone Gastroenterology - [address] [place] [phone] Merly Lyons [place] Social History Tobacco Use [...] Info) Description 10/07/2024 8:00 AM EDT Appointment [address] [phone] 10/09/2024 7:15 AM EDT Clinical Support Gastroenterology - [address] [facility] 299 [facility] [address] [place] [address] 10/09/2024 11:45 AM EDT Treatment [facility] Speech Therapy [address] [facility] [address] [place] [phone] Jessica Hull, AIR DEODORIZER SERVICER 10/22/2024 9:30 AM EDT Appointment [facility] [address] [place] [phone] 2024 8:00 AM EDT Appointment [facility] [address] [address] 10/29/2024 11:00 AM EDT Appointment [facility] [address] [phone] 12/22/2024 10:30 AM EDT Office Visit Gastroenterology - [address] [address] Leif Burciaga PA [address] [address] documented as of this encounter Goals Goal Patient Goal Type Associated Problems Recent Progress Patient-Stated? Author AIR DEODORIZER SERVICER LTG General No Jessica Hull, AIR DEODORIZER SERVICER Note: Pt will improve cognitive linguistic function to participate and communicate in iADLs mod I AIR DEODORIZER SERVICER STGs General No Jessica Hull, AIR DEODORIZER SERVICER Note: Pt will participate with development of [...] on filedocumented in this encounter Care Teams Plans Examiner Relationship Specialty Start Date End Date Bernie Aquino NP [address] [facility] [place] [address] PCP - General Family Medicine 10/05/21 documented as of this encounter
--- OUTSIDE RECORDS SUMMARY | 2024-10-01 23:36 | XMS_ITS | Clinical Summary ---
Author Organization [facility] Address [address] [place] [address] Care Team Providers Care Web Marketing Manager Name Role Phone Bernie Aquino DIRECTOR CLIENT Primary Care Provider [phone] Allergies Active Allergy Reactions Criticality Noted Date [...] age to complete this topic Care Teams Web Marketing Manager Relationship Specialty Start Date End Date Bernie Aquino, DIRECTOR CLIENT [address] [facility] [place] [address] PCP - General Family Medicine 10/05/21
--- OUTSIDE RECORDS SUMMARY | 2024-10-01 23:36 | XMS_ITS | Encounter Summary ---
Author Organization [facility] Address [address] [place] [address] Care Team Providers Care Digital Circuit Designer Name Role Phone Bernie Aquino Primary Care Provider [phone] Encounter Details Date Type Department Care Team (Late st Contact Info) Description 09/05/2024 Tapatalk Message [facility] Financial Clearance Department [address] [place] [address] [place], Generic Provider [address] [place] [address] Prescritption PA Social History Tobacco Use Types [...] Description 11/18/2024 10:30 AM EDT Office Visit [facility] [address] [place] [address] Corporate Webmaster: Adrienne Gutiérrez MD [address] [place] [address] documented as of this encounter Visit Diagnoses Not on filedocumented in this encounter Care Teams Digital Circuit Designer Relationship Specialty Start Date End Date Bernie Aquino [address] [place] [address] PCP - General 08/22/21 documented as of this encounter
--- OUTSIDE RECORDS SUMMARY | 2024-10-01 23:37 | XMS_ITS | Encounter Summary ---
Author Organization [facility] Address [address] [place] [address] Care Team Providers Care Distance Education Director Name Role Phone Bernie Aquino Primary Care Provider [phone] Encounter Details Date Type Department Care Team (Late st Contact Info) Description 04/12/2021 Orders Only [facility] [address] [place] [address] ProviderCaitlyn MD [address] [place] [address] Social History Tobacco Use Types Packs/Day [...] 11/18/2024 10:30 AM EDT Office Visit [facility] [address] [place] [address] Public Health Specialist: Adrienne Gutiérrez MD [address] [place] [address] documented as of this encounter Procedures * Due to [place] state law, this organization might not be sharing negative HIV tests. Procedure Name Priority Date/Time Associated Diagnosis Comments AMB EXTERNAL CT HEAD, OUTSID E RESULT Routine 03/15/2021 documented in this encounter Results * Due to [place] [employer] law, this organization might not be sharing negative HIV tests. * CT Head, Outside Result (03/15/2021) Anatomical Region Laterality Modality Other us Unknown Provider MD [facility] EXTERNAL RESULT PROCEDUR ES Final Result documented in this encounter Visit Diagnoses Not on filedocumented in this encounter Care Teams Distance Education Director Relationship Specialty Start Date End Date Bernie Aquino [address] [place] [address] PCP - General 08/22/21 documented as of this encounter
--- OUTSIDE RECORDS SUMMARY | 2024-10-01 23:37 | XMS_ITS | Encounter Summary ---
Author Organization [facility] Address [address] [place] [address] Phone Care Team Providers Care Dialysis Patient Care Technician Name Role Phone Unavailable Primary Care Provider Unavailabl e Encounter Details Date Type Department Care Team (Late st Contact Info) Description 01/02/2022 Telephone [facility] [address] [place] [address] Neto Cunningham MD Social History [...] on this issue. Has appt 01/10 in [place] office * Telephone Encounter - Alta Young [...] er visits. Please advise Thank you CB# [phone] documented in this encounter Plan of Treatment Not on file documented as of this encounter Visit Diagnoses Not on filedocumented in this encounter
--- OUTSIDE RECORDS SUMMARY | 2024-10-01 23:37 | XMS_ITS | Encounter Summary ---
Author Organization [facility] Address [address] [place] [address] Care Team Providers Care Crimping Machine Operator For Metal Name Role Phone MilesTristenca Primary Care Provider [phone] Reason for Visit * Reason Onset Date Comments Reschedule 10/18/2021 Encounter Details Date Type Department Care Team (Late st Contact Info) Description 10/18/2021 Telephone [facility] Central Scheduling Department [address] [place] [address] Telephone Intake, Staff Reschedule Social History Tobacco [...] pls follow up with pt to coordinate [phone] documented in this encounter Plan of Treatment Upcoming Encounters Date Type Department Care Team (Late st Contact Info) Description 11/18/2024 10:30 AM EDT Office Visit [facility] [address] [place] [address] Margin Analyst: Adrienne Gutiérrez MD [address] [place] [address] documented as of this encounter Visit Diagnoses Not on filedocumented in this encounter Care Teams Crimping Machine Operator For Metal Relationship Specialty Start Date End Date Bernie Aquino [address] [place] [address] PCP - General 08/22/21 documented as of this encounter
--- OUTSIDE RECORDS SUMMARY | 2024-10-01 23:37 | XMS_ITS | Data Portability ---
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 This visit is a vxkp-az-axno visit during the COVID-19 pandemic Public Health [...] all services provided today in accordance with [facility] and CDC guidelines. There was additional practice expense incurred due to the Public Health Emergency. This additional expense includes but is not limited to: ? Additional clinical staff and medical chemistry technical officer time for pre-screening ? Time [...] AVN and loose bodies 2021 022 [email or web address] [facility], [address] [place], [address], 09:34:34 Medication Orders None recorded. Patient TargetsNo [...] wo pelvi s Fin al Report EXAM#: [id number] PROCED URE: DXR 0178 XR HIP [...] RAMÍREZ M.D. On: Jul 06 2021 1:13P [email or web address] [facility] [address] [facility], [place], [address], 07/06/2021 14:45:47 07/19/19 22 07/16/2021 MRI, hip, w/o contr ast Pre limina ry Report EXAM#: [id number] PROCED URE: MR 0073 MRI HIP [...] 18 2021 9:11A Signed by: On: prem [facility] [address] [facility], [place], [address], 07/18/2021 14:51:07 07/19/19 22 07/16/2021 MRI, hip, w/o contr ast Fin al Report EXAM#: [id number] PROCED URE: MR 0073 MRI HIP [...] WASHINGTON M.D. On: Jul 18 2021 11:57A [email or web address] [facility] [address] [place], [address], 07/18/2021 14:01:26 03/29/2003/27/2022 MRI hip left Frank al Report EXAM#: [id number] PROCED URE: MR 0070 MRI HIP [...] supero inferi or by 0.3 cm tate vice president of communications ior by 0.3 cm mediol ateral (axial [...] WASHINGTON M.D. On: Mar 29 2022 9:14A [email or web address] [facility] [address] [facility], [place], [address], 03/29/2022 13:42:34 03/29/20 22 03/27/2022 MRI, hip, w/o contr ast Fin al Report EXAM#: [id number] PROCED URE: MR 0073 MRI HIP [...] WASHINGTON M.D. On: Mar 29 2022 9:25A [email or web address] [facility] [address] [place], [address], 03/29/2022 13:42:48 01/18/20 23 01/17/2023 xr hip right 4vw_W or wo pelvi s Fin al Report EXAM#: [id number] PROCED URE: DXR 0178 XR HIP [...] M.D. On: Jan 17 2023 12:22P [email or web address] [facility] [address] [place], [address], 01/17/2023 12:38:51 Result Notes None recorded. Problems Name Problem SNOMED Code Status Onset Date Resolution Date Notes Provider Name and Address Organization Details Recorded Time Acetabular labrum tear 326714629 Active 021 Enedina murphy [facility] [place] 14:17:00 Problem Notes None recorded. Procedures Surgical History Date Name Laterality Status Provider Name and Address Organization Details Recorded Time 022 parathyroidectomy completed Sonya Nation [facility] [place] 04/12/2022 13:46:24 018 Orthopaedic Surgery completed Lexii Pacheco [facility] [place] 02/23/2021 13:14:29 009 Orthopaedic Surgery completed Lexii Pacheco [facility] [place] 02/23/2021 13:14:38 000 Orthopaedic Surgery completed Lexii Pacheco [facility] [place] 02/23/2021 13:14:46 Imaging Results Imaging Date Name Status LastModified by Organiz ation Details LastModified Time 07/06/2021 xr hip right 4vw_W or wo pelvis completed [address] [facility] [address] [place], [address], 07/06/2021 14:45:47 07/16/2021 MRI, hip, w/o contrast completed [address] [facility] [address] [place], [address], 07/18/2021 14:51:07 07/16/2021 MRI, hip, w/o contrast completed [address] [facility] [address] [place], [address], 07/18/2021 14:01:26 03/27/2022 MRI hip left completed [address] [facility] [address] [place] [address], [address], 03/29/2022 13:42:34 03/27/2022 MRI, hip, w/o contrast completed [address] [facility] [address] [place], [address], 03/29/2022 13:42:48 01/17/2023 xr hip right 4vw_W or wo pelvis completed [email or web address] [facility] [address] [facility], [place], [address], 01/17/2023 12:38:51 Procedure Notes None recorded. Medical Equipment None Reported. Allergies Allergen ID Allergen Name Allergen Category Reaction Reaction Severity Criticality Documentation Date Start Date Code Code System Note Provider Name and Address Organization Details Recorded Time 497128 morphine medicatio n Not available Not available Not available 02/23/2021 7052 RxNorm Lexii Tara [facility] [place] 13:07:48 680675 adhesive tape environme nt,medica tion Not available Not available Not available 02/23/2021 49413 UNK Lexii Tara [facility] [place] 13:07:48 821277 Demerol medicatio n Not available Not available Not available 02/23/2021 52333 1 RxNorm Lexii Tara [facility] [place] 13:07:48 568034 Non-stero idal anti-infl ammatory agent (product) medicatio n other Not available Not available 02/23/2021 12820 005 SNOMED IgG defic iency , canno t take. Lexii Tara [facility] [place] 13:13:07 Medications Name Sig Start Date Stop [...] Not Available Not Available No t Available [facility] ODT 75 mg disintegrat ing tablet PLACE ONE TABLET BY MOUTH EVERY OTHER DAY 2021 active Not Available Not Available Not Avai lable Vitals Date Recorded Body height Provider Name an d Address Organization Details Last Updated DateTime 07/06/2021 162.56 cm Dhaval Coburn [facility] [place] 07/06/2021 11:20:09 Date Recorded Body height Body mass index (BMI) Body weight Provider Name and Address Organization Details Last Updated DateTime 07/26/2021 162.56 cm 28.7 kg/m2 72528.[address] [facility] [place] 07/26/2021 12:20:18 Date Recorded Body height Body mass index (BMI) Body weight Provider Name and Address Organization Details Last Updated DateTime 03/10/2022 162.56 cm 28.8 kg/m2 78528.52 g Rosio Whaley [facility] [place] 03/10/2022 13:26:00 Date Recorded Body height Body mass index (BMI) Body weight Provider Name and Address Organization Details Last Updated DateTime 04/12/2022 162.56 cm 29.5 kg/m2 01417.[address] [facility] [place] 04/12/2022 13:46:00 Date Recorded Body height Provider Name an d Address Organization Details Last Updated DateTime 01/17/2023 162.56 cm Shalom Gaona [facility] [place] 01/17/2023 11:59:26 Social History Question Answer Notes LastModified by Organizat ion Details LastModified Time Tobacco Smoking Status Never Smoker Lexii Tara [facility] [place] 02/23/2021 13:07:49 What Is Your Level Of Caffeine Consumption? None Information not available 03/10/2022 Have You Had Cortisone? Yes [email or web address] Information not available 02/23/2021 Briefly Explain Your Foot/ankle Condition (injury) Hip Problem, Pain, Instability, Weakness, Stiffness, Spasms, Some Sharp Pains [email or web address] Information not available 02/23/2021 Date Of Injury/Duration Of Injury (weeks, Months, Years) No Injury, Date Of Initial Diagnosis 2016 [email or web address] Information not available 02/23/2021 What Treatments Have You Tried For This Condition? Cortisone Shot, A Little Pt [email or web address] Information not available 02/23/2021 Have Any Other Tests Been Done For This Problem? X-ray [email or web address] Information not available 02/23/2021 Is This Condition/proble m Affecting Your Ability To Exercise Or Perform Activities Of Daily Living? Yes [email or web address] Information not available 02/23/2021 Do You Wear Custom-made Orthotics? No [email or web address] Information not available 02/23/2021 How Old Are They? 4 Years [email or web address] Information not available 02/23/2021 Have You Ever Had Problems With Healing A Wound? Have You Ever Been Told You Are A Slow Healer? No [email or web address] Information not available 02/23/2021 How Much Tobacco Do You Smoke? No [email or web address] Information not available 02/23/2021 What Types Of Sporting Activities Do You Participate In? None [email or web address] Information not available 02/23/2021 How Many Years Have You Smoked Tobacco? 0 Information not available 02/23/2021 Sex: Unknown Functional Status Question Answer Note LastModified by Organizat ion Details LastModified Time What is your level of alcohol consumption? None [email or web address] Information not available 02/23/2021 Do you or have you ever used smokeless tobacco? 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 Never used electronic cigarettes [email or web address] Information not available 02/23/2021 What is your exercise level? Occasional Information not available 03/10/2022 Mental Status None recorded. Family History Relationship Description Onset Age of this Age Resolved Age Notes LastModified by Organization Details LastModified Time Father No current problems or disability [email or web address] Not available 13:13:31 Mother No current problems or disability [email or web address] Not available 13:13:31 Medical History Condition Response Blood Clots / Phlebitis N Heart Problems N HIV or AIDS N Depression or Anxiety Y High Blood Pressure N Irregular Heartbeat N MRSA Y Any Other Significant Medical Issues Y Emphysema / Chronic Bronchitis N Reaction to General/Local Anesthesia N Hepatitis / Jaundice N Weight Gain / Loss N Kidney / Bladder Infections Y Diabetes Y Bleeding Disorder N Hearing Loss N Angina, Heart Failure or Attack N Seizures / Epilepsy N Night Sweats N Osteoarthritis / Rheumatoid arthritis / Other Y Cancer Y Stroke N Chemical Dependency / Alcoholism N Ulcer / Stomach Bleeding / Indigestion Y Visual Loss or Glaucoma N Thyroid Disorder N Psoriasis / Skin Rash Y Heart Disease N Pulmonary Embolism N Asthma / Shortness of Breath / Sleep Medical Registrar ea (please specify) Y Gynecological HistoryNo gynecological history recorded. Obstetrics History GPAL:G 0 P 0 0 0 0 Past Encounters Encounter ID Performer Location Encounter Start Date Encounter Closed Date Diagnosis/Indication Diagnosis SNOMED-CT Code Diagnosis ICD10 Code Diagnosis Note [id number] WANG VALENZUELA MD [facility] am Office [address] [place] [phone] 02/23/2021 12:48:39 02/23/2021 13:44:40 Pain of hip region 04092290 M25.551 Acetabular labrum tear 147786374 M24.151 [id number] ROMY MULLER [facility] am Office [address] [place] [phone] 03/16/2021 13:16:51 03/16/2021 14:16:47 Acetabular labrum tear 047382002 M24.151 [id number] ROMY MULLER [facility] Office [address] [place] [address] 05/18/2021 12:19:43 05/18/2021 13:04:42 Acetabular labrum tear 319661535 M24.151 [id number] WANG VALENZUELA MD [facility] Office [address] [facility] [place] [address] 07/06/2021 10:39:57 07/06/2021 21:38:58 Pain of hip region 84328659 M25.551 [id number] WANG VALENZUELA MD [facility] Office [address] [place] [phone] 07/26/2021 09:33:05 07/26/2021 15:13:55 Osteoarthritis of right hip joint 1482276149 64890 M16.11 [id number] WANG VALENZUELA MD [facility] Office [address] [place] [phone] 03/10/2022 12:49:51 03/16/2022 20:28:35 Pain of hip region 75770053 M25.915 [id number] WANG VALENZUELA MD [facility] Office [address] [facility] AndreRachelaiyana ash [address] [place] [phone] 04/12/2022 13:04:41 04/19/2022 10:57:56 Pain of hip region 79877342 M25.336 [id number] WANG VALENZUELA MD [facility] Office [address] [facility] AndreRachelaiyana ash [address] [place] [phone] 01/17/2023 10:53:10 01/17/2023 12:11:23 Complete tear, hip ligament 663162480 S73.101A Health Concerns Section Related Observation LastModified by Organization Detai ls LastModified Time None Recorded Concern Status LastModified by Organization Details LastModified Time None Recorded Advance Directives Directive None Recorded Payers Insurance Date Sequence Insurance Name Policy Number Policy Brambila Covered Member ID Brambila Member ID Guarantor Name 01/26/2023 1 [facility] [id number] Pineda Garcia [id number] Meredith Garcia 01/12/2023 2 [place] [facility] Meredith Garcia [id number] Meredith Garcia 01/17/2023 3 [place] [facility] Meredith Garcia [id number] Meredith Garcia Notes Date Note Type Note [...] considering a thyroidectomy soon. WANG VALENZUELA MD [address] [place] [address], [phone], [facility] [place] 07/13/2021 11:11:43 07/26/2021 text/html COVID-19 [facility] NT: This visit was conducted as a real time interactive TeleHealth audiovisual TeleHealth visit conducted via [employer] during the ongoing COVID-19 [facility] Public Health Emergency. The patient was identified by name and date of and consented to this TeleHealth visit. The patient was at their home in [place] and I was at my [place] office. This was done over the course of 26 minutes including record review. We are in touch with Meredith today via telehealth. Patient is currently in [place]. This is for follow-up regarding her right hip MRI recently obtained. The overall concern was underlying mild arthritic changes middle-aged female with degenerative labral tear. WANG VALENZUELA MD [address] [place] [address], [phone], [facility] [place] 08/02/2021 11:45:39 03/10/2022 text/html Meredith comes into [...] of discomfort. Plain radiographs were obtained today. AWNG VALENZUELA MD [address] [place] [address], [phone], [facility] [place] 03/18/2022 07:46:12 04/12/2022 text/html Meredith return s today for followup regarding her hips. She had MRI in the interim. Her pain mostly seems to be posterior SI joint. She reports focal point tenderness. She denies any neurologic deficits. She presents with a cane. Previously, we had concerns for significant osteoarthritic changes being present already. WANG VALENZUELA MD [address] [place] [address], [phone], [facility] [place] 04/27/2022 15:11:21 01/17/2023 text/html Meredith return s [...] help her significantly as well. ROMY [place] [address] [place] [address], [phone], [facility] [place] 01/18/2023 22:43:28 OBGyn Episode No OBEpisode recorded.
--- OUTSIDE RECORDS SUMMARY | 2024-10-01 23:37 | XMS_ITS | Encounter Summary ---
Author Organization [facility] Address [address] [place] [address] Care Team Providers Care Plug Overwrap Machine Tender Name Role Phone Bernie Aquino Primary Care Provider [phone] Encounter Details Date Type Department Care Team (Late st Contact Info) Description 04/05/2020 Documentation [facility] Building [address] [place] [address] Rafaela Pedro CPhT Social History Tobacco Use [...] Description 11/18/2024 10:30 AM EDT Office Visit [facility] [address] [place] [address] Urban Anthropologist: Adrienne Gutiérrez MD [address] [place] [phone] documented as of this encounter Visit Diagnoses Not on filedocumented in this encounter Care Teams Plug Overwrap Machine Tender Relationship Specialty Start Date End Date Bernie Aquino [address] [place] [address] PCP - General 08/22/21 documented as of this encounter
--- OUTSIDE RECORDS SUMMARY | 2024-10-01 23:37 | XMS_ITS | Clinical Summary ---
Author Organization [facility] Address [address] [place] [address] Care Team Providers Care Hoop Cutter Name Role Phone Bernie Aquino LOANS CONSULTANT Primary Care Provider [phone] Allergies Active Allergy Reactions Criticality Noted Date [...] of hip 09/09/2024 Papillary carcinoma of thyroid ([facility] V24, [facility] /[facility] V28) 09/09/2024 Spondylosis of lumbosacral region 09/09/2024 Tear of acetabular labrum 09/09/2024 Class 1 obesity 08/18/2024 Dyshidrotic eczema 08/18/2024 Type 2 diabetes mellitus wit hout complication ([facility] V24, [facility] V28) 06/27/2024 Asthma 06/27/2024 Hypothyroidism 06/27/2024 Chronic renal impairment, st age 3 (moderate) ([facility] V24, [facility] V28) 06/27/2024 Concussion without loss of consciousness [...] No clear etiology Patient following up with adobe layer helper at [facility] in November Assessment & Plan (07/11/2024 12:17 PM EST): Second opinion for liver bx [facility] 08/18/24 Repeat lfts today, alk phos has been trending down (157 06/13/24) Assessment & Plan (06/13/2024 5:01 PM EST): Orders: Hepatic function panel; Future Cyclic vomiting syndrome 03/17/2024 CVID (common variable immuno deficiency) ([facility] V24, [facility] V28) 03/10/2024 Chronic cough 10/01/2023 Hyperimmunoglobulin e (ige) syndrome ([facility] V2 4) 10/01/2023 Moderate persistent asthma 10/01/2023 Perennial allergic rhinitis 10/01/2023 Polyp of nasal cavity 10/01/2023 Tardive dyskinesia 04/20/2023 Chronic migraine without aur a without status migrainosus, not intractable 11/03/2022 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 ([facility] V24) Disorder of patellofemoral joint 02/03/2022 Familial Mediterranean fever ([facility] V24, [facility] V28) 02/03/2022 Hay fever 02/03/2022 Hyperparathyroidism ([facility] V24) 02/03/2022 Irritable bowel syndrome 02/03/2022 Non-toxic nodular goiter 02/03/2022 Acute renal failure ([facility] V24) 12/20/2021 Nephrocalcinosis 12/07/2021 Abnormal auditory perception 10/12/2021 Overview (09/09/2024): Other abnormal auditory perceptions, left ear; Note: Date Diagnosed: 10/12/2021 11:06 AM (H93.292) Trigeminal neuralgia 06/07/2021 Bipolar I disorder ([facility] V24, [facility] V28) Chronic sinusitis 04/26/2021 Overview (09/09/2024): Sinusitis (chronic) NOS; Note: Date Diagnosed: 04/26/2021 2:03 PM (J32.9) Sensorineural hearing loss 01/20/2021 Overview (09/09/2024): Sensorineural hearing loss, unilateral, left ear, with unrestricted hearing on the contralateral side; Note: Date Diagnosed: 01/20/2021 1:26 PM (H90.42) Immunologic deficiency syndrome ([facility] V24) Overview (09/09/2024): Immunodeficiency, unspecified; Note: Changed from D84 to D84.9 (11/22/2020 11:21 AM) , Date Diagnosed: 05/26/2019 1:39 PM (D84) Posterior rhinorrhea 05/26/2019 Overview (09/09/2024): Postnasal drip; Note: Date Diagnosed: 05/26/2019 2:03 PM (R09.82) Tremor 01/30/2019 Overview (09/09/2024): Medication related (lithium, neuroleptics) Memory impairment 03/25/2015 Intractable migraine with aura without status mi grainosus 12/01/2013 Meniere's disease 12/01/2013 Congenital hypogammaglobulinemia ([facility] V24, [facility] V28) 03/30/2011 Candidal vulvovaginitis 11/15/2010 Obstructive sleep apnea syndrome 11/15/2010 Encounters Date Type Department Care Team Description 09/26/2024 Telephone Gastroenterology - [address] [facility] [address] [place] [address] Merly Lyons MA 09/16/2024 8:13 AM EDT - 09/16/2024 11:59 PM EDT Hospital Encounter [facility] [address] [place] [address] CVID (common variable immunodeficiency) ([facility] V24, [facility] V28) (Primary Dx) Discharge Disposition: Home or Self Care 09/10/2024 9:10 AM EDT Office Visit Gastroenterology - [address] [place] [phone] Leif Burciaga PA WALTERS (nonalcoholic steatohepatitis) (Primary Dx); Elevated alkaline phosphatase level; Bloating; Tenesmus; Nausea and vomiting, unspecified vomiting type 08/27/2024 2:30 PM EDT Treatment 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); Cognitive communication disorder 08/27/2024 9:24 AM EDT - 08/27/2024 11:59 PM EDT Hospital Encounter [address] [phone] Deandre Schroeder MD Moderate persistent asthma, unspecified whether complicated (Primary Dx) Discharge Disposition: Home or Self Care 08/26/2024 8:19 AM EDT - 08/26/2024 11:59 PM EDT Hospital Encounter [address] [phone] Deandre Schroeder MD CVID (common variable immunodeficiency) ([facility] V24, [facility] V28) (Primary Dx) Discharge Disposition: Home or Self Care 08/19/2024 Telephone Gastroenterology - [address] [phone] Leif Burciaga PA 08/11/2024 8:30 AM EDT Treatment 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 Speech Therapy [address] [phone] 07/14/2024 Telephone Gastroenterology - [address] [place] [phone] Merly Lyons MA 07/13/2024 4:40 PM EST - 07/13/2024 10:59 PM EST Emergency [facility] Emergency [address] [place] [phone] Urinary tract infection without hematuria, site unspecified (Primary Dx); Cyst of left ovary Discharge Disposition: Home or Self Care 07/11/2024 10:40 AM EST Office Visit Gastroenterology - [address] [place] [phone] Leif Burciaga PA Elevated alkaline phosphatase level (Primary Dx); Bloating; Tenesmus; Nausea and vomiting, unspecified vomiting type 07/10/2024 Telephone Gastroenterology - [address] [phone] Merly Lyons MA 07/07/2024 12:05 PM EST - 07/07/2024 11:59 PM EST Hospital Encounter [facility] Xray [address] [place] [phone] Constipation, unspecified constipation type Discharge Disposition: Home [...] (CMS/HCC V24) Familial Mediterranean fever (CMS/HCC V24, [facility]/ [facility] V28) Chronic kidney disease CVS [...] Description 10/07/2024 8:00 AM EDT Appointment [facility] Center [address] [phone] 10/09/2024 7:15 AM EDT Clinical Support Gastroenterology - [address] [facility] [address] [place] [address] 10/09/2024 11:45 AM EDT Treatment [facility] Speech Therapy 175 [facility] [address] [place] [phone] Jessica Hull, CUSTOMS ENTRY CLERK 10/22/2024 9:30 AM EDT Appointment [facility] [address] [phone] 2024 8:00 AM EDT Appointment [facility] [address] [phone] 10/29/2024 11:00 AM EDT Appointment [facility] [address] [place] [phone] 12/22/2024 10:30 AM EDT Office Visit Gastroenterology - [address] [place] [phone] Leif Burciaga PA [address] [place] [address] Health Maintenance Due Date Last Done Comments [...] Type Associated Problems Recent Progress Patient-Stated? Author CUSTOMS ENTRY CLERK LTG General No Jessica Hull, CUSTOMS ENTRY CLERK Note: Pt will improve cognitive linguistic function to participate and communicate in iADLs mod I CUSTOMS ENTRY CLERK STGs General No Jessica Hull, CUSTOMS ENTRY CLERK Note: Pt will participate with development of [...] min assist Medical Devices Implanted Type Area Horn Player Device Identifier Shelf Expiration Date Model / Serial / Lot Sponge Surgifoam Gel 12 X 7mm - [id number] Implanted:Qty: 1 on 04/09/2024 by Daniele Reeder MD at [facility] Hemostasis N/A: Abdomen [employer] [id number] 1972 / / Procedures Procedure Name Priority [...] LAB CHEMISTRY METHOD 09/26/2024 10:06 AM EDT [facility] TIBC 467(H) 250 - 450 mcg/dL LAB CHEMISTRY METHOD 09/26/2024 10:06 AM EDT [facility] Iron Saturation 5(L) 15 - 50 % LAB CHEMISTRY METHOD 09/26/2024 10:06 AM EDT [facility] Blood Venous blood specimen / Unknown Venipuncture / Unknown 09/26/2024 9:09 AM EDT 09/26/2024 9:22 AM EDT Myadavid STANTON LAB BLOOD ORDERABLES Final R esult Performing Organization Address City/[facility]/ZIP Co de Phone Number [facility] [address] [place] [address], [place] [phone] * Ferritin (09/26/2024 9:09 AM EDT) Ferritin 13 8 - 252 ng/mL LAB CHEMISTRY METHOD 09/26/2024 10:13 AM EDT [facility] Blood Venous blood specimen / Unknown Venipuncture / Unknown 09/26/2024 9:09 AM EDT 09/26/2024 9:22 AM EDT RitaPreetiJojo Patrica STANTON LAB BLOOD ORDERABLES Final R esult Performing Organization Address City/[facility] de Phone Number [facility] [address] [place] [address], [place] [phone] * CT Abdomen Pelvis wo Contrast (07/13/2024 [...] manually resulted (07/13/2024 6:50 PM EST) Pathologist [facility] HCG, Ur POC Negative Negative POC hCG Int QC Pass? Yes Yes EXPIRATION DATE POC LOT NUMBER POC [id number] Urine Urine specimen obtained by clean catch procedure / Unknown 07/13/2024 6:50 PM EST Florin STANTON POINT OF CARE TEST ENTER /EDIT ORDERABLES Final Result * (ABNORMAL) Urinalysis with reflex microscopic and culture (07/13/2024 3:07 PM EST) Pathologist [facility] Specific Moran Urine 1.011 1.003 - 1.030 LAB URINALYSIS - AUTOMATED METHOD 07/13/2024 3:[address] [facility] pH, Urine 6.5 5.0 - 8.0 pH LAB URINALYSIS - AUTOMATED METHOD 07/13/2024 3:[address] [facility] Leukocytes, Urine Moderate(A) Negative LAB URINALYSIS - AUTOMATED METHOD 07/13/2024 3:[address] [facility] Nitrite, Urine Negative Negative LAB URINALYSIS - AUTOMATED METHOD 07/13/2024 3:[address] [facility] Protein, Urine Negative <=Trace mg/dL LAB URINALYSIS - AUTOMATED METHOD 07/13/2024 3:[address] [facility] Glucose, Urine Negative Negative mg/dL LAB URINALYSIS - AUTOMATED METHOD 07/13/2024 3:[address] [facility] Ketones, Urine Negative Negative mg/dL LAB URINALYSIS - AUTOMATED METHOD 07/13/2024 3:[address] [facility] Urobilinogen , Urine 0.2 0.2 - 1.0 mg/dL LAB URINALYSIS - AUTOMATED METHOD 07/13/2024 3:[address] [facility] Bilirubin, Urine Negative Negative LAB URINALYSIS - AUTOMATED METHOD 07/13/2024 3:[address] [facility] Blood, Urine Small(A) Negative LAB URINALYSIS - AUTOMATED METHOD 07/13/2024 3:[address] [facility] RBC, Urine 2.0 0 - 4 /HPF LAB URINALYSIS - AUTOMATED METHOD 07/13/2024 3:[address] [facility] WBC, Urine 20.2(H) 0 - 4 /HPF LAB URINALYSIS - AUTOMATED METHOD 07/13/2024 3:[address] [facility] Squamous Epithelial, Urine 4 0 - 60 /LPF LAB URINALYSIS - AUTOMATED METHOD 07/13/2024 3:[address] [facility] Bacteria, Urine Negative Negative /HPF LAB URINALYSIS - AUTOMATED METHOD 07/13/2024 3:58 PM EST [facility] Hyaline Casts, Urine 0.0 0 - 3 /LPF LAB URINALYSIS - AUTOMATED METHOD 07/13/2024 3:[address] [facility] Urine Urine specimen obtained by clean catch procedure / Unknown Non-blood Collection / Unknown 07/13/2024 3:07 PM EST 07/13/2024 3:50 PM EST Mitesh Boyd MD LAB URINE ORDERABLES Jie l Result [facility] [address] [place] [address], [place] [phone] * Mchugh urine culture tube (07/13/2024 3:07 PM EST) Extra Tube Hold for add-ons. 07/13/2024 5:01 PM EST [facility] Comment:Auto resulted. Urine Urine specimen obtained by clean catch procedure / Unknown Non-blood Collection / Unknown 07/13/2024 3:07 PM EST 07/13/2024 3:50 PM EST Mitesh Boyd MD LAB URINE ORDERABLES Jie l Result [facility] [address] [place] [address], [place] [phone] * (ABNORMAL) CBC auto differential (07/13/2024 3:07 PM EST) WBC 8.6 4.8 - 10.8 K/[facility] HEMETOLOGY METHOD 07/13/2024 3:[address] [facility] RBC 5.90(H) 3.80 - 4.80 M/mcL LAB HEMETOLOGY METHOD 07/13/2024 3:[address] [facility] Hemoglobin 11.7 11.5 - 16.0 g/dL LAB HEMETOLOGY METHOD 07/13/2024 3:[address] [facility] Hematocrit 41.9 35.0 - 47.0 % LAB HEMETOLOGY METHOD 07/13/2024 3:[address] [facility] MCV 70.9(L) 79.0 - 98.0 FL LAB HEMETOLOGY METHOD 07/13/2024 3:[address] [facility] MCH 19.8(L) 27.0 - 32.0 pcg LAB HEMETOLOGY METHOD 07/13/2024 3:[address] [facility] MCHC 27.9(L) 32.0 - 37.0 g/dL LAB HEMETOLOGY METHOD 07/13/2024 3:[address] [facility] RDW 20.7(H) 11.0 - 15.0 % LAB HEMETOLOGY METHOD 07/13/2024 3:[address] [facility] Platelets 398 130 - 400 K/mcL LAB HEMETOLOGY METHOD 07/13/2024 3:[address] [facility] MPV 10.2 7.0 - 11.0 FL LAB HEMETOLOGY METHOD 07/13/2024 3:[address] [facility] NRBC 0.0 <1.0 % LAB HEMETOLOGY METHOD 07/13/2024 3:[address] [facility] NRBC Absolute 0.00 <0.10 K/mcL LAB HEMETOLOGY METHOD 07/13/2024 3:[address] [facility] Neutrophils Relative 61.9 % LAB HEMETOLOGY METHOD 07/13/2024 3:[address] [facility] Lymphocytes Relative 24.6 % LAB HEMETOLOGY METHOD 07/13/2024 3:[address] [facility] Monocytes Relative 8.9 % LAB HEMETOLOGY METHOD 07/13/2024 3:[address] [facility] Eosinophils Relative 2.8 % LAB HEMETOLOGY METHOD 07/13/2024 3:[address] [facility] Basophils Relative 1.4 % LAB HEMETOLOGY METHOD 07/13/2024 3:[address] [facility] Immature Granulocytes Relative 0.4 % LAB HEMETOLOGY METHOD 07/13/2024 3:[address] [facility] Neutrophils Absolute 5.30 1.50 - 7.00 K/mcL LAB HEMETOLOGY METHOD 07/13/2024 3:[address] [facility] Lymphocytes Absolute 2.10 1.00 - 5.00 K/mcL LAB HEMETOLOGY METHOD 07/13/2024 3:[address] [facility] Monocytes Absolute 0.76 0.20 - 1.00 K/mcL LAB HEMETOLOGY METHOD 07/13/2024 3:[address] [facility] Eosinophils Absolute 0.24 0.00 - 0.50 K/mcL LAB HEMETOLOGY METHOD 07/13/2024 3:[address] [facility] Basophils Absolute 0.12 0.00 - 0.20 K/mcL LAB HEMETOLOGY METHOD 07/13/2024 3:[address] [facility] Immature Granulocytes Absolute 0.03 0.00 - 0.03 K/mcL LAB HEMETOLOGY METHOD 07/13/2024 3:[address] [facility] Blood Venous blood specimen / Unknown Venipuncture / Unknown 07/13/2024 3:07 PM EST 07/13/2024 3:50 PM EST us Mitesh Boyd MD LAB BLOOD ORDERABLES Jie mcclure Result [facility] [address] [place] [address], * Culture urine (07/13/2024 3:07 PM EST) [facility] Culture, Urine No growth 07/14/2024 12:02 PM EST [facility] Urine Urine specimen obtained by clean catch procedure / Unknown Non-blood Collection / Unknown 07/13/2024 3:07 PM EST 07/13/2024 3:58 PM EST Mitesh Boyd MD LAB MICROBIOLOGY - GENERA L ORDERABLES Final Result Performing Organization Address City/[facility]/ZIP Co de Phone Number [facility] [address] [place] [address], [place] [phone] * Lipase (07/13/2024 3:07 PM EST) [facility] Lipase 70 13 - 75 unit/L LAB CHEMISTRY METHOD 07/13/2024 4:[address] [facility] Blood Venous blood specimen / Unknown Venipuncture / Unknown 07/13/2024 3:07 PM EST 07/13/2024 3:50 PM EST Mitesh Boyd MD LAB BLOOD ORDERABLES Jie l Result Performing Organization Address City/[facility]/ZIP Co de Phone Number [facility] [address] [place] [address], [place] [phone] * (ABNORMAL) Comprehensive metabolic panel (07/13/2024 3:07 PM EST) [facility] Sodium 140 133 - 145 mmol/L LAB CHEMISTRY METHOD 07/13/2024 4:26 PM EST [facility] Potassium 3.7 3.5 - 5.5 mmol/L LAB CHEMISTRY METHOD 07/13/2024 4:[address] [facility] Chloride 110 96 - 110 mmol/L LAB CHEMISTRY METHOD 07/13/2024 4:26 PM EST [facility] CO2 21 21 - 32 mmol/L LAB CHEMISTRY METHOD 07/13/2024 4:[address] [facility] Anion Gap 9 3 - 11 LAB CHEMISTRY METHOD 07/13/2024 4:[address] [facility] Glucose 171(H) 70 - 100 mg/dL LAB CHEMISTRY METHOD 07/13/2024 4:[address] [facility] BUN 13 5 - 25 mg/dL LAB CHEMISTRY METHOD 07/13/2024 4:[address] [facility] Creatinine 1.08 0.50 - 1.10 mg/dL LAB CHEMISTRY METHOD 07/13/2024 4:[address] [facility] eGFR 63 >=60 mL/min/1. 73m2 LAB CHEMISTRY METHOD 07/13/2024 4:[address] [facility] Comment:Calculation based on the??Chronic Kidney Disease Epidemiology Collaboration (CKD-EPI) equation refit??without adjustment for race. BUN/Creatinine Ratio 12.0 LAB CHEMISTRY METHOD 07/13/2024 4:[address] [facility] Calcium 8.9 8.5 - 10.5 mg/dL LAB CHEMISTRY METHOD 07/13/2024 4:[address] [facility] AST (SGOT) 33 10 - 42 unit/L LAB CHEMISTRY METHOD 07/13/2024 4:[address] [facility] ALT (SGPT) 38 10 - 60 unit/L LAB CHEMISTRY METHOD 07/13/2024 4:[address] [facility] Alkaline Phosphatase 158(H) 42 - 121 unit/L LAB CHEMISTRY METHOD 07/13/2024 4:[address] [facility] Total Protein 7.3 6.0 - 8.0 g/dL LAB CHEMISTRY METHOD 07/13/2024 4:[address] [facility] Albumin 3.7 3.2 - 5.0 g/dL LAB CHEMISTRY METHOD 07/13/2024 4:[address] [facility] Total Bilirubin 0.3 0.0 - 1.4 mg/dL LAB CHEMISTRY METHOD 07/13/2024 4:[address] [facility] Blood Venous blood specimen / Unknown Venipuncture / Unknown 07/13/2024 3:07 PM EST 07/13/2024 3:50 PM EST us Mitesh Boyd MD LAB BLOOD ORDERABLES Jie l Result [facility] [address] [place] [address], [place] [phone] * (ABNORMAL) Hepatic function panel (07/11/2024 11:19 AM EST) Total Protein 7.4 6.0 - 8.0 g/dL LAB CHEMISTRY METHOD 07/11/2024 4:[address] [facility] Albumin 3.8 3.2 - 5.0 g/dL LAB CHEMISTRY METHOD 07/11/2024 4:[address] [facility] Total Bilirubin 0.2 0.0 - 1.4 mg/dL LAB CHEMISTRY METHOD 07/11/2024 4:[address] [facility] Bilirubin, Direct <0.1 0.0 - 0.3 mg/dL LAB CHEMISTRY METHOD 07/11/2024 4:[address] [facility] Bilirubin, Indirect LAB CHEMISTRY METHOD 07/11/2024 4:[address] [facility] Comment:Unable to calculate Indirect Bilirubin. ALT (SGPT) 35 10 - 60 unit/L LAB CHEMISTRY METHOD 07/11/2024 4:[address] [facility] AST (SGOT) 24 10 - 42 unit/L LAB CHEMISTRY METHOD 07/11/2024 4:[address] [facility] Alkaline Phosphatase 142(H) 42 - 121 unit/L LAB CHEMISTRY METHOD 07/11/2024 4:[address] [facility] Blood Venous blood specimen / Unknown Venipuncture / Unknown 07/11/2024 11:19 AM EST 07/11/2024 12:46 PM EST us Leif STANTON LAB BLOOD ORDERABLES Final R esult KATRIN CAAL CT ([facility]) [facility] [address] [place] [address], * XR Abdomen 1 View (07/07/2024 12:22 [...] Signed Date: 07/10/2024 11:31 ET Workstation ID: [id number] Transcribed By: Self Edit Transcribed Date: 07/10/2024 [...] Signed Date: 07/10/2024 11:31 ET Workstation ID: [id number] Transcribed By: Self Edit Transcribed Date: 07/10/2024 11:27 ET Manda Seals MD IMG XR PROCEDURES Final Result * COLONOSCOPY Anesthesia - MAC; [facility] ENDOSCOPY (06/27/2024 8:07 AM EST) [...] ? purposes. Narrative 06/27/2024 8:09 AM EST [facility] Patient Name: Meredith Garcia Procedure [...] Procedure Code(s): ? --- Professional --- ? 36953, Colonoscopy, flexible; with biopsy, single or ? multiple Diagnosis Code(s): ? --- Professional --- ? R19.7, Diarrhea, unspecified CPT copyright 202 [employer]. All rights reserved. The codes documented in this report are preliminary and upon icd 9 coder review may be revised to meet current compliance requirements. Manda Seals MD 06/27/2024 8:09:30 AM This report has been signed electronically.Manda Seals MD Number of Addenda: 0 Note Initiated On: 06/27/2024 7:44 AM Scope In: Scope Out: ? Endoscopy Department at [facility] - [address] [place] [address], ? [place] [address] Procedure Note Manda Seals MD - 06/27/2024 [facility] GI Patient Name: Meredith Garcia Procedure [...] not prolapse). Procedure Code(s): --- Professional --- 90106, Colonoscopy, flexible; with biopsy, singleor multiple Diagnosis Code(s): --- Professional --- R19.7, Diarrhea, unspecified CPT copyright 2020 [employer]. All rights reserved. The codes documented in this report are preliminary and upon icd 9 coder reviewmay be revised to meet current compliance requirements. Manda Seals MD 06/27/2024 8:09:30 AM This report has been signed electronically.Manda Seals MD Number of Addenda: 0 Note Initiated On: 06/27/2024 7:44 AM Scope In: Scope Out: Endoscopy Department at [address] [address] IMPRESSION: - The examined portion of the ileum was normal. - Normal mucosa in the entire examined colon.Biopsied. - Internal hemorrhoids. Recommendation: - Await pathology results. - Repeat colonoscopy in 10 years for screening purposes. Manda Seals MD GI~PROCEDURE ORDERABLES Final Result from Last 3 Months or Most Recently Relevant to Health Maintenance Insurance MEDICARE BL[place] Advance Directives Documents on File Type Date Recorded Patient Retail Sales Vitamin Consultant Expl anation Health Care Decision (hx) 06/10/2018 [...] (hx) 06/10/2018 AD BOLDEN DIRECTIVE Care Teams Hoop Cutter Relationship Specialty Start Date End Date Bernie Aquino NP [address] [facility] [place] [address] PCP - General Family Medicine 10/05/21
--- OUTSIDE RECORDS SUMMARY | 2024-10-01 23:37 | XMS_ITS | Encounter Summary ---
Author Organization [facility] Address [address] [place] [address] Care Team Providers Care Bulb Planter Name Role Phone MilesTristenca Primary Care Provider [phone] Reason for Visit * Reason Onset Date Comments migraines 03/29/2021 Encounter Details Date Type Department Care Team (Late st Contact Info) Description 03/29/2021 Telephone [facility] Central Scheduling Department [address] [place] [address] Telephone Intake, Staff migraines Social History Tobacco [...] Description 11/18/2024 10:30 AM EDT Office Visit [facility] [address] [place] [address] Shine Worker: Adrienne Gutiérrez MD [address] [place] [address] documented as of this encounter Visit Diagnoses Not on filedocumented in this encounter Care Teams Bulb Planter Relationship Specialty Start Date End Date Bernie Aquino [address] [place] [address] PCP - General 08/22/21 documented as of this encounter
--- OUTSIDE RECORDS SUMMARY | 2024-10-01 23:37 | XMS_ITS | Clinical Summary ---
Author Organization [facility] Address [address] [place] [address] Care Team Providers Care Machine Inker Name Role Phone Bernie Aquino Primary Care Provider [phone] Allergies Active Allergy Reactions Criticality Noted Date [...] Type Department Care Team Description 10/01/2024 Telephone [facility] [address] [place] [address] Fruit Or Nut Picker: Stefany Ramirez LPN 09/05/2024 myChart Message [facility] Financial Clearance Department [address] [place] [address] Mychart, Generic Provider Prescritption PA 09/04/2024 Orders Only [facility] Building Neurology Clinic [address] [place] [address] Rajesh Black NP 09/04/2024 Telephone [facility] [address] [place] [address] Fruit Or Nut Picker: Bernie Huitron LPN 08/07/2024 Documentation [facility] Building [address] [place] [address] Marcell Shen CPhT Prior Authorization ([place] for Emgality 120mg/ml pen Injector, #06/10, through [employer] [PA# [id number]]. Effective 07/12/24 - 08/06/25. May fill with [facility], $4.80 copay/) 08/07/2024 Documentation [facility] Building [address] [place] [address] Marcell Shen CPhT Prior Authorization ([place] Nurtec ODT 75mg, #, through [employer] [PA# [id number]]. Effective 07/12/24 - 08/06/25. May fill with [facility], $4.80 copay/) 08/06/2024 Telephone [facility] Neurology [facility] [address] [place] [address] Rajesh Black NP 08/05/2024 1:00 PM EDT Office Visit [facility] [address] [place] [address] Fruit Or Nut Picker: Rajesh Echevarria NP Intractable migraine with aura without status migrainosus (Primary Dx); Chronic migraine without aura without status migrainosus, not intractable 07/29/2024 Orders Only [facility] [address] [place] [address] Fruit Or Nut Picker: Caitlyn Sanchez MD 07/28/2024 Telephone [facility] [address] [place] [address] Fruit Or Nut Picker: Sari Workman Telephone Intake, Staff PAC Patient [...] Description 11/18/2024 10:30 AM EDT Office Visit [facility] [address] [place] [address] Fruit Or Nut Picker: Adrienne Gutiérrez MD [address] [place] [phone] Health Maintenance Due Date Last Done Comments [...] Screening Completed 05/29/2024 Procedures * Due to [place] [employer] law, this organization might not be sharing negative HIV tests. Procedure Name Priority Date/Time Associated Diagnosis Comments IMAGING - SCANNED Routine 07/29/2024 8:5 8 AM EDT COMPREHENSIVE METABOLIC PANEL Routine 04/20/2023 9:56 AM EST Chronic migraine without aura without status migrainosus, not intractable HM DIABETES EYE EXAM 11/10/2021 from Last 3 Months or Most Recently Relevant to Health Maintenance Results * Due to [place] [employer] law, this organization might not be sharing negative HIV tests. * IMAGING - SCANNED (07/29/2024 8:58 AM EDT) Anatomical Region Laterality Modality Other us Unknown Provider MD SCANNED PROCEDURES Final Res ult * (ABNORMAL) Comprehensive Metabolic Panel (04/20/2023 9:56 AM EST) NA 141 135 - 145 mmol/L 04/20/2023 11:01 AM EST [facility] K 3.6 3.5 - 5.3 mmol/L 04/20/2023 11:01 AM EST [facility] Cl 107 97 - 110 mmol/L 04/20/2023 11:01 AM EST [facility] CO2 21(L) 24 - 32 mmol/L 04/20/2023 11:01 AM EST [facility] Anion Gap 13 5 - 15 04/20/2023 11:01 AM EST [facility] Glucose 139(H) 70 - 99 mg/dL 04/20/2023 11:01 AM EST [facility] Creatinine 0.89 0.50 - 1.20 mg/dL 04/20/2023 11:01 AM EST [facility] Calcium 9.1 8.7 - 10.7 mg/dL 04/20/2023 11:01 AM EST [facility] Total Protein 7.1 6.0 - 8.0 g/dL 04/20/2023 11:01 AM EST [facility] Albumin 4.4 3.5 - 4.8 g/dL 04/20/2023 11:01 AM EST [facility] Bilirubin, Total 0.2(L) 0.3 - 1.2 mg/dL 04/20/2023 11:01 AM EST [facility] Alkaline Phosphatase 115 30 - 115 U/L 04/20/2023 11:01 AM EST [facility] AST 14 10 - 40 U/L 04/20/2023 11:01 AM EST [facility] ALT 19 10 - 40 U/L 04/20/2023 11:01 AM EST [facility] BUN 19 7 - 23 mg/dL 04/20/2023 11:01 AM EST [facility] eGFR 81 >=60 mL/min/1. 73m2 04/20/2023 11:[address] [facility] Comment:The estimated glomer ular [...] MD LAB BLOOD ORDERABLES Final R esult [facility] [address] [place] [address], * DIABETES EYE EXAM (11/10/2021) 11/10/2021 us Onbase Scan [facility] Final Resu lt from Last 3 Months or Most Recently Relevant to Health Maintenance Insurance MEDICARE [facility] Advance Directives Documents on File Type Date Recorded Patient Patient Support Tech Expl [facility] Care Proxy 02/14/2017 2:27 PM Care Teams Machine Inker Relationship Specialty Start Date End Date Bernie Aquino [address] [place] [phone] PCP - General 08/22/21
--- OUTSIDE RECORDS SUMMARY | 2024-10-01 23:37 | XMS_ITS | Encounter Summary ---
Author Organization [facility] Address [address] [place] [address] Phone Care Team Providers Care Servicer Travel Trailers Name Role Phone Unavailable Primary Care Provider Unavailabl e Encounter Details Date Type Department Care Team (Late st Contact Info) Description 01/25/2022 Telephone [facility] [address] [place] [address] Neto Cunningham MD Social History [...]
--- OUTSIDE RECORDS SUMMARY | 2024-10-01 23:37 | XMS_ITS | Encounter Summary ---
Author Organization [facility] Address [address] [place] [address] Care Team Providers Care Teleservices Representative Name Role Phone Bernie Aquino DESK DIRECTOR Primary Care Provider Encounter Details Date Type [...] Info) Description 10/07/2024 8:00 AM EDT Appointment [facility] [address] [phone] 10/09/2024 7:15 AM EDT Clinical Support Gastroenterology - [address] [facility] [address] [place] [address] 10/09/2024 11:45 AM EDT Treatment [facility] Speech Therapy [address] [facility] [address] [place] [address] Jessica Hull, MOLD MECHANIC 10/22/2024 9:30 AM EDT Appointment [facility] [address] [phone] 2024 8:00 AM EDT Appointment [facility] [address] [phone] 10/29/2024 11:00 AM EDT Appointment [facility] [address] [place] [phone] 12/22/2024 10:30 AM EDT Office Visit Gastroenterology - [address] [facility] [address] [place] [phone] Leif Burciaga PA [address] [place] [address] documented as of this encounter Goals Goal Patient Goal Type Associated Problems Recent Progress Patient-Stated? Author MOLD MECHANIC LTG General Jessica Byers, MOLD MECHANIC Note: Pt will improve cognitive linguistic function to participate and communicate in iADLs mod I MOLD MECHANIC STGs General No Jessica Hull, MOLD MECHANIC Note: Pt will participate with development [...] documented as of this encounter Care Teams Teleservices Representative Relationship Specialty Start Date End Date Bernie Aquino NP [address] [place] [place] [address] PCP - General Family Medicine 10/05/21 documented as of this encounter
--- OUTSIDE RECORDS SUMMARY | 2024-10-01 23:37 | XMS_ITS | Clinical Summary ---
Author Organization [facility] Address [address] [place] [address] Phone Care Team Providers Care Cut Off Saw Grader Name Role Phone Unavailable Primary Care Provider [...] 50+ Years Discontinued 4, 12/19/2009 Insurance Medicare [facility] Medicare [facility]
--- OUTSIDE RECORDS SUMMARY | 2024-10-01 23:37 | XMS_ITS | Encounter Summary ---
Author Organization [facility] Address [address] [place] [address] Phone Care Team Providers Care Disaster Recovery Analyst Name Role Phone Unavailable Primary Care Provider Unavailabl e Encounter Details Date Type Department Care Team (Late st Contact Info) Description 07/05/2022 Telephone [facility] [address] [place] [address] Julee Stephens [place] Social History [...] you to know the orders are at [facility]. documented in this encounter Plan of Treatment Not on file documented as of this encounter Visit Diagnoses Not on filedocumented in this encounter
--- OUTSIDE RECORDS SUMMARY | 2024-10-01 23:37 | XMS_ITS | Encounter Summary ---
Author Organization [facility] Address [address] [place] [address] Care Team Providers Care Barber Or Beauty Shop Manager Name Role Phone MilesTristenca Primary Care Provider [phone] Encounter Details Date Type Department Care Team (Late st Contact Info) Description 11/21/2021 Telephone [facility] Patient Access Center [address] [place] [address] Telephone Intake, Staff Social History Tobacco Use [...] to book it. Please call patient at [phone]. documented in this encounter Plan of Treatment Upcoming Encounters Date Type Department Care Team (Late Contact Info) Description 11/18/2024 10:30 AM EDT Office Visit [facility] [address] [place] [address] Solar Maintenance Technician: Adrienne Gutiérrez MD [address] [place] [phone] documented as of this encounter Visit Diagnoses Not on filedocumented in this encounter Care Teams Barber Or Beauty Shop Manager Relationship Specialty Start Date End Date Bernie Aquino [address] [place] [phone] PCP - General 08/22/21 documented as of this encounter
[2024-10-01 23:51] LABS: MANUAL DIFF FLAG NO
[2024-10-01 23:52] LABS: Basophils Absolute Auto 0.1 X10*3/uL (0.0-0.2); Basophils Percent Auto 1.6 % (0-2); Eosinophils Absolute Auto 0.2 X10*3/uL (0.0-0.4); Eosinophils Percent Auto 3.6 % (0-4); Hematocrit 39.6 % (37.0-47.0); Hemoglobin 12.6 g/dl (12.0-16.0); Imm Gran Abs Auto 0.02 X10*3/uL (0.00-0.03); Imm Gran Pct Auto 0.4 % (0.0-0.4); Lymphocytes Absolute Auto 1.9 X10*3/uL (1.2-4.9); Lymphocytes Percent Auto 33.5 % (20-40); Mean Corpuscular HGB Conc 31.8 g/dl (31.0-35.0); Mean Corpuscular Hemoglobin 23.1 pg (27.0-33.0); Mean Corpuscular Volume 72.5 fL (80.0-98.0); Mean Platelet Volume 9.5 fL (9.4-12.3); Monocytes Absolute Auto 0.6 X10*3/uL (0.1-1.2); Monocytes Percent Auto 10.8 % (2-11); Neutrophils Absolute Auto 2.8 x10*3/uL (2.0-8.3); Neutrophils Percent Auto 50.1 % (45-73); Platelet Count 250 X10*3/uL (160-400); Red Blood Count 5.46 X10*6/uL (4.20-5.50); Red Cell Distribution Width 20.8 % (11.0-16.0); White Blood Count 5.6 X10*3/uL (4.8-10.8)
[2024-10-02 00:13] LABS: Alanine Aminotransferase 48 U/L (0-31); Albumin Level 4.5 g/dL (3.5-5.0); Alkaline Phosphatase 121 U/L (39-117); Anion Gap 12 (12-20); Aspartate Amino Transferase 39 U/L (5-31); Bilirubin Direct < 0.2 mg/dL (0.0-0.5); Bilirubin Total 0.2 mg/dL (0.0-1.0); Blood Urea Nitrogen 12 mg/dL (9-16); Calcium 9.1 mg/dL (8.4-10.2); Carbon Dioxide 22 mmol/L (22-29); Chloride 111 mmol/L (96-108); Creatinine Clr Calc Pharmacy 79.5; Estimated Glomerular Filt Rate > 60; Glucose Random 114 mg/dL (60-115); Potassium 3.4 mmol/L (3.3-5.1); Sodium 142 mmol/L (135-145); Total Protein 7.4 g/dL (6.5-8.0)
[2024-10-02 00:14] LABS: Troponin-I High Sensitivity < 2.7 ng/L (<3.5-17.0)
[2024-10-02 00:27] LABS: TSH reflex Free T4 2.28 uIU/mL (0.32-4.0)
[2024-10-02 00:34] VITALS: BP 111/77; PULSE 85; RESP 18; TEMP 36.6; O2SAT 93
[2024-10-02 01:02] VITALS: BP 111/75; PULSE 80; RESP 20; TEMP 36.6; O2SAT 94
[2024-10-02 01:05] VITALS: BP 111/75; PULSE 80; RESP 2; TEMP 36.7; O2SAT 94
== END 2024-10-02 01:06 | disposition home or self-care (01) ==
PROVIDERS: Emergency Provider Emergency Medicine
DX: R00.2 Palpitations (principal); E11.9 Type 2 diabetes mellitus without complications; Z79.899 Other long term (current) drug therapy; Z79.4 Long term (current) use of insulin
CPT/HCPCS: 36415; 80048; 80076; 84443; 84484; 85025; 93005; 99283; 99284

== ENCOUNTER → 2024-10-01 23:24 | Outpatient (BNV) | payer MEDICARE, MEDICAID, SELFPAY | PROVIDERS: Emergency Provider Emergency Medicine; Visit Provider Internal Medicine Cardiovascular Disease | DX: I25.2 Old myocardial infarction (principal) | CPT/HCPCS: 93010 ==

== ENCOUNTER → 2024-10-18 08:01 | Outpatient (BNV) | payer MEDICARE, MEDICAID, SELFPAY | PROVIDERS: Emergency Provider Emergency Medicine; PCP Nurse Practitioner Family; Visit Provider Internal Medicine Cardiovascular Disease | DX: I63.9 Cerebral infarction, unspecified (principal) | CPT/HCPCS: 93010 ==

== ENCOUNTER 2024-10-18 10:09 | Emergency (ER) | payer MEDICARE, MEDICAID, SELFPAY ==
--- NOTE | 2024-10-18 08:01 | ECG_ITS ---
Test Reason : STROKE ALERT Blood Pressure : */* mmHG Vent. Rate : 87 BPM Atrial Rate : 87 BPM P-R Int : 174 ms QRS Dur : 90 ms QT Int : 386 ms P-R-T Axes : 64 82 52 degrees QTcB Int : 464 ms Normal sinus rhythm Normal ECG When compared with ECG of 01-Oct-2024 23:38, Nonspecific T wave abnormality no longer evident in Inferior leads Referred By: Mitesh Boyd Electronically Signed By: SHE KLINE MD
[2024-10-18 10:20] VITALS: BP 128/86; PULSE 90; RESP 15; TEMP 36.9; O2SAT 95; BMI 27.7
--- NOTE | 2024-10-18 10:21 | ED.WEAKNESS ---
HPI - Weakness General Chief complaint: Stroke Stated complaint: BLURRY VISION DIZZY Time Seen by Provider: 10/18/24 10:15 Source: patient and EMS Mode of arrival: EMS Limitations: no limitations History of Present Illness ED Provider: HPI Narrative: 48-year-old woman with history of PTSD, bipolar 1 disorder, anxiety, depression, complicated migraines. Has been to [facility] and [place] with these symptoms and has had a total of 4 CAT scans toe which were with an angiogram. During her last admission in September she was told that she has a TIA and when she went to see her neurologist because of this history of TIA it was recommended to her that she stop sumatriptan meds. She states she has complex migraines, sometimes they have no headaches but symptoms such as difficulty walking, difficulty with speech, various body of the sensations, she is able to manage these symptoms if she takes a Triptan right away but since she has been recommended not to take a Triptan, she is now coming in with the symptoms progressively getting worse over the past 5 days. She states the current regimen of her antimigraine prophylaxis does not work. She is alert and oriented x4, really well-versed in her history and I evaluated her initially to see whether she is acute stroke there were no indications for acute stroke activation. Related Data Home Medications ?Medication ?Instructions ?Recorded ?Confirmed montelukast 10 mg tablet 1 tab PO BEDTIME 01/31/22 09/30/24 melatonin 10 mg capsule 10 mg PO BEDTIME PRN Insomnia 04/23/23 09/30/24 ondansetron HCl 4 mg tablet 4 mg PO Q8H PRN Nausea 05/28/23 09/30/24 atorvastatin 40 mg tablet 40 mg PO BEDTIME 12/11/23 09/30/24 cetirizine 10 mg capsule (Zyrtec) 10 mg PO BID 12/11/23 09/30/24 ferrous gluconate 324 mg (38 mg 324 mg PO DAILY 12/11/23 09/30/24 iron) tablet metformin 1,000 mg tablet 1,000 mg PO BID 12/11/23 09/30/24 omeprazole 40 mg capsule,delayed 40 mg PO BID@0630,1630 12/11/23 09/30/24 release colchicine 0.6 mg tablet 1.8 mg PO DAILY 01/02/24 09/30/24 omalizumab 300 mg/2 mL 300 mg subcut QMONTH 03/05/24 09/30/24 subcutaneous syringe (Xolair) docusate sodium 100 mg capsule 100 mg PO BID PRN constipation 04/16/24 09/30/24 galcanezumab-gnlm 120 mg/mL 120 mg subcut QMONTH 04/16/24 09/30/24 subcutaneous pen injector (Emgality Pen) ipratropium 20 mcg-albuterol 100 1 puff inhalation QID PRN SOB 04/16/24 09/30/24 mcg/actuation mist for inhalation (Combivent Respimat) magnesium oxide 400 mg PO DAILY@1200 04/16/24 09/30/24 rizatriptan 10 mg tablet 10 mg PO BID PRN Migraine Headache 04/16/24 09/30/24 prednisone 20 mg tablet 20 - 40 mg PO DAILY PRN familial 04/17/24 09/30/24 Mediterranean fever insulin lispro 100 unit/mL See Protocol subcut TIDAC PRN 07/16/24 09/30/24 subcutaneous pen Blood Sugar Spikes norethindrone (contraceptive) 0.35 0.35 mg PO DAILY 07/16/24 09/30/24 mg tablet (Incassia) acetaminophen 500 mg tablet 500 mg PO Q6H PRN Pain 09/30/24 09/30/24 lhtfjepzfv-sdyukbljnryqm-uelhcpaw 1 cap PO DAILY PRN Migraine 09/30/24 09/30/24 50 mg-300 mg-40 mg capsule Headache canakinumab (PF) 150 mg/mL 150 mg subcut Q4W 09/30/24 09/30/24 subcutaneous solution (Ilaris (PF)) cyclobenzaprine 10 mg tablet 10 mg PO BEDTIME PRN Muscle Spasm 09/30/24 09/30/24 gabapentin 600 mg tablet 600 mg PO BID 09/30/24 09/30/24 hydroxyzine HCl 25 mg tablet 25 - 50 mg PO TID PRN anxiety 09/30/24 09/30/24 immune glob,gamma(IgG) 10 30 g IV Q3W 09/30/24 09/30/24 glch-agp-ffbn-IgA 0 to 50 mcg/mL IV solution (Gammagard S-D (IgA < 1 mcg/mL)) levothyroxine 50 mcg tablet 50 mcg PO DAILY@0600 09/30/24 09/30/24 semaglutide 0.25 mg or 0.5 mg (2 0.5 mg subcut SA 09/30/24 09/30/24 mg/3 mL) subcutaneous pen injector (Ozempic) Previous Rx's ?Medication ?Instructions ?Recorded lamotrigine 200 mg tablet,extended 200 mg PO BEDTIME #30 tabs 07/22/24 release 24 hr lamotrigine 25 mg tablet 50 mg (2 x 25 mg) PO DAILY 30 days 07/22/24 #60 tabs multivitamin (Daily-Enid tablet) 1 tab PO DAILY #0 tabs 07/22/24 oxcarbazepine 600 mg tablet 900 mg (1.5 x 600 mg) PO BID #90 07/22/24 tabs topiramate 50 mg tablet 50 mg PO BID #60 tabs 07/22/24 venlafaxine 25 mg tablet 75 mg (3 x 25 mg) PO BEDTIME #07/22/24 tabs amiloride 5 mg tablet 10 mg (2 x 5 mg) PO DAILY #60 tabs 10/14/24 Allergies Allergy/AdvReac Type Severity Reaction Status Date / Time adhesive [ADHESIVE] Allergy Intermediate BLISTER Verified 10/18/24 10:27 fluticasone [From FLONASE] Allergy Unknown unknown Verified 10/18/24 10:27 meperidine [Demerol] Allergy Unknown vomit Verified 10/18/24 10:27 metoclopramide [From REGLAN] Allergy Unknown DIPLOPIA Verified 10/18/24 10:27 transparent dressing Allergy Unknown rash Verified 10/18/24 10:27 morphine [MORPHINE] AdvReac Severe NAUSEA & Verified 10/18/24 10:27 VOMITING TEGADERM BANDAGE Allergy Intermediate RASH Uncoded 10/18/24 10:27 morphine Allergy Unknown vomit Uncoded 10/18/24 10:27 tape Allergy Unknown rash Uncoded 10/18/24 10:27 From DEMEROL AdvReac Severe NAUSEA & Uncoded 10/18/24 10:27 VOMITING Review of Systems Constitutional: Constitutional: Reports as per [facility] Past Medical History Medical History Bipolar 1 disorder PTSD (post-traumatic stress disorder) Acute anxiety Depression History of recurrent pneumonia History of Pseudomonas pneumonia Bipolar disorder Menstrual migraine Allergic asthma Dyslipidemia Type 2 diabetes mellitus FMF (familial Mediterranean fever) Primary immunodeficiency disorder Surgical History History of endoscopy (~11/2023) History of ankle surgery History of umbilical hernia repair History of dilation and curettage History of arthroscopy History of oral surgery History of delivery Social History Social History Household Members: Children Household Members Other:: dog Housing: House Do you presently have visiting nurse or other home services: No Alcohol intake: never Patient Tobacco Use Status: Never used Tobacco e-Cigarette/Vaping Use: Never Used Second Hand Smoke Exposure: No Advance Directives: No Advance Directives Information Provided: No Advance Directives Date on File: 09/30/24 Do you have a plan to hurt others: No Plan service: No Sexual orientation: Straight/Heterosexual Physical Exam Vital Signs: Vital Signs: Last Vital Signs Temp 98.5 F 10/18/24 10:30 Pulse 83 10/18/24 10:30 Resp 22 H 10/18/24 10:30 BP 117/83 10/18/24 10:30 Pulse Ox 96 10/18/24 10:30 O2 Del Method Room Air 10/18/24 10:30 BMI result Body Mass Index 27.7 Const: Other: Gen: ?Overall well-appearing patient HEENT: PERRLA, EOMI, MMM, Neck: Supple, no LAD CV: RRR, no obvious murmurs appreciated Resp: ?No wheezing rales rhonchi no stridor moving air well Abd: ?Bowel sounds are present, no tenderness no rebound no rigidity MSK: FROM, strength 5/5 all extremities Skin: Warm, dry, intact, Neuro: ?Alert and oriented x3, moving upper and lower extremities symmetrically, no obvious facial asymmetry noted, no dysmetria upper or lower extremities NIH Stroke Scale Internal: Initial- Upon Arrival Level of Consciousness: Alert Level of Consciousness Questions: Answers both questions correctly Level of Consciousness Commands: Performs both tasks correctly Best Gaze: Normal Visual: No visual loss Facial Palsy: Normal Motor Arm (Right): No drift Motor Arm (Left): No drift Motor Leg (Right): No drift Motor Leg (Left): No drift Limb Ataxia: Absent Sensory: Normal Best Language: No aphasia Dysarthia: Normal Extinction and Inattention: No abnormality Score: 0 Medications Administered Discontinued Medications Generic Name Dose Route Start Last Admin Trade Name Dg PRN Reason Stop Dose Admin Acetaminophen/Butalbital/Caffeine 1 tab 10/18/24 11:36 10/18/24 12:14 Butalb/Acetamin/Caff 50/325/40 Tablet PO 10/18/24 11:37 1 tab ONCE ONE Administration Sodium Chloride 1,000 mls @ 999 mls/hr 10/18/24 11:45 10/18/24 12:23 Ns IV 10/18/24 12:45 999 mls/hr .Q1H1M LUCIE Administration Medical Decision Making Medical Decision Making [facility] Narrative: 11:40 I just had a long discussion with the patient regarding her symptoms and her symptom control, it seems 1 of the issues is that she was recently admitted for what may possibly have been unlikely has been complex migraines with maybe some atypical features and was given a diagnosis of TIA and afterwards the neurologist on neurology [place] has recommended that she come off Triptan which actually helps to gabriela her symptoms if used early, now she is presenting with symptoms getting worse over the past 5 days and she states they are to the point where she has a hard time walking. By the time I saw down to speak to her she is already beginning to feel better, on my initial evaluation when she presented I did not feel that based on her evaluation there is indication for CT or CTA, thereafter looked into her prior care and I saw that since the beginning of the year she has had 3 CTs of the head in the ER here and she already told me that she also went to [facility] and she had a CTA there as well. It has been recommended to [facility] that she obtain a brain MRI, and when she was admitted here for a presumptive TIA she did not have a brain MRI. I have went over a full, of medications that can provide for the patient though she states she has not really experiencing a migraine right now it is the other symptoms that bother her mostly difficulty with walking which is typical for her when the symptoms are not addressed earlier. It but she is beginning to feel better and so I will give her fluids and Fioricet after discussion with her, and we will provide recommendations that she needs to have outpatient brain MRI, and for now I believe she is low risk such as her blood pressure has been normal here, she is nonsmoker, she is not having any cardiac issues for her to restart sumatriptan and she has just filled a prescription for sumatriptan but she just held off it upon neuralgia. Recommendations but she is seen at another neurologist in the middle of November. I did not suspect cavernous venous thrombosis she has no neurologic deficits, there was no trauma, there are no deficits to suspect cerebellar stroke, and short I did not feel further imaging such as CT or CT is indicated at this time. Of course I will re-evaluate the patient's make sure she is ambulatory, and if she is not ambulatory may opt out for admission in the brain MRI maybe a dry CT for admission purposes. 13:35 feels much better, comfortable with discharge Differential Diagnosis Differential Diagnoses: The differential diagnosis associated with the presentation includes Stroke, TIA, subarachnoid hemorrhage, migraine, complex migraine, temporal arteritis Admission/Observation Consideration of admission/observation: Escalation of care including admission/observation considered Lab Data 10/18/24 12:03 10/18/24 12:03 Labs: Lab Results 10/18/24 Range/Units 12:03 WBC 7.0 (4.8-10.8) X10*3/uL RBC 5.55 H (4.20-5.50) X10*6/uL Hgb 12.8 (12.0-16.0) g/dl Hct 42.0 (37.0-47.0) % MCV 75.7 L (80.0-98.0) fL MCH 23.1 L (27.0-33.0) pg MCHC 30.5 L (31.0-35.0) g/dl RDW 18.8 H (11.0-16.0) % Plt Count 294 (160-400) X10*3/uL MPV 9.6 (9.4-12.3) fL Immature Gran % (Auto) 0.1 (0.0-0.4) % Neut % (Auto) 58.7 (45-73) % Lymph % (Auto) 28.4 (20-40) % Platte % (Auto) 8.8 (2-11) % Eos % (Auto) 2.7 (0-4) % Baso % (Auto) 1.3 (0-2) % Lymph # (Auto) 2.0 (1.2-4.9) X10*3/uL Platte # (Auto) 0.6 (0.1-1.2) X10*3/uL Eos # (Auto) 0.2 (0.0-0.4) X10*3/uL Baso # (Auto) 0.1 (0.0-0.2) X10*3/uL Abs Immat Gran (auto) 0.01 (0.00-0.03) X10*3/uL Absolute Neuts (auto) 4.1 (2.0-8.3) x10*3/uL Absolute Nucleated RBC 0.000 (0.0-0.012) X10*3/uL Nucleated RBC % (auto) 0.0 (0.0-0.2) /100WBC Sodium 145 (135-145) mmol/L Potassium 4.0 (3.3-5.1) mmol/L Chloride 113 H (96-108) mmol/L Carbon Dioxide 22 (22-29) mmol/L Anion Gap 14 (12-20) BUN 11 (9-16) mg/dL Creatinine 0.85 (0.5-1.4) mg/dL Estim Creat Clear Calc 79.2 Estimated GFR > 60 Random Glucose 85 (60-115) mg/dL Calcium 8.9 (8.4-10.2) mg/dL Discharge Plan Discharge Clinical Impression: Migraine Qualifiers: Migraine type: other Status migrainosus presence: without status migrainosus Intractability: not intractable Qualified Code(s): G43.809 - Other migraine, not intractable, without status migrainosus Patient Disposition: Home, Self-Care Additional Instructions: Evaluated with headache with neurologic symptoms, as discussed I reviewed the chart, multiple CTs this year alone, diagnosis of TIA upon their presentation was also done without brain MRI recommend that you get a brain MRI on outpatient basis to make sure there are no small ischemic changes and maybe consistent with TA, we have had a long discussion regarding her current prophylactic management for migraines and until you see a neurologist I recommend that you were restart your Triptan meds which seemed to be helpful the most otherwise he will become quite disabled. Your blood work today has been reassuring, he received fluids and Fioricet. Any other issues concerns come back to the ER. Prescriptions: No Action amiloride 5 mg tablet 10 mg PO DAILY Qty: 60 5RF montelukast 10 mg tablet 1 tab PO BEDTIME omeprazole 40 mg capsule,delayed release(DR/EC) 40 mg PO BID@0630,1630 colchicine 0.6 mg tablet 1.8 mg PO DAILY norethindrone (contraceptive) [Incassia] 0.35 mg Tablet 0.35 mg PO DAILY insulin lispro 100 unit/mL insulin pen See Protocol SUBCUT TIDAC PRN (Reason: Blood Sugar Spikes) Protocol: Insulin Correction Scale Less than or equal to 110 ---- Give (units): 0 111 to 150 Give (units): 0 151 to 200 Give (units): 0 201 to 250 Give (units): 2 251 to 300 Give (units): 4 301 to 350 Give (units): 6 Greater than 350 Give (units): 8 Call MD if Blood Glucose > : 350 Rx Instructions: Patient takes while on Prednisone regimens for blood sugar spikes. multivitamin [Daily-Enid] Tablet 1 tab PO DAILY Qty: 0 0RF venlafaxine 25 mg Tablet 75 mg PO BEDTIME Qty: 90 0RF lamotrigine 25 mg Tablet 50 mg PO DAILY 30 Days Qty: 60 0RF oxcarbazepine 600 mg tablet 900 mg PO BID Qty: 90 0RF topiramate 50 mg tablet 50 mg PO BID Qty: 60 0RF lamotrigine 200 mg tablet extended release 24hr 200 mg PO BEDTIME Qty: 30 0RF rizatriptan 10 mg Tablet 10 mg PO BID PRN (Reason: Migraine Headache) Rx Instructions: do not exceed 3 doses per 24 hrs docusate sodium 100 mg capsule 100 mg PO BID PRN (Reason: constipation) Combivent Respimat 20-100 mcg/actuation mist 1 puff INHALATION QID PRN (Reason: SOB) magnesium oxide 400 mg magnesium Tablet 400 mg PO DAILY@1200 Rx Instructions: Take once daily at noon starting on 04/17/24 Emgality Pen 120 mg/mL pen injector 120 mg subcut QMONTH prednisone 20 mg tablet 20 - 40 mg PO DAILY PRN (Reason: familial Mediterranean fever) levothyroxine 50 mcg tablet 50 mcg PO DAILY@0600 Gammagard S-D (IgA < 1 mcg/mL) 10 gram Recon Soln 30 g IV Q3W Ilaris (PF) 150 mg/mL Solution 150 mg SUBCUT Q4W Ozempic 0.25 mg or 0.5 mg (2 mg/3 mL) pen injector 0.5 mg subcut SA cyclobenzaprine 10 mg Tablet 10 mg PO BEDTIME PRN (Reason: Muscle Spasm) hydroxyzine HCl 25 mg tablet 25 - 50 mg PO TID PRN (Reason: anxiety) mtypudhshw-bmtfbftnwxpyc-dfzq 50-300-40 mg capsule 1 cap PO DAILY PRN (Reason: Migraine Headache) gabapentin 600 mg tablet 600 mg PO BID acetaminophen 500 mg Tablet 500 mg PO Q6H MDD 2000mg PRN (Reason: Pain) melatonin 10 mg capsule 10 mg PO BEDTIME PRN (Reason: Insomnia) Zyrtec 10 mg capsule 10 mg PO BID ondansetron HCl 4 mg tablet 4 mg PO Q8H PRN (Reason: Nausea) atorvastatin 40 mg tablet 40 mg PO BEDTIME ferrous gluconate 324 mg (38 mg iron) tablet 324 mg PO DAILY metformin 1,000 mg tablet 1,000 mg PO BID Xolair 300 mg/2 mL syringe 300 mg subcut QMONTH Print Language: Yoruba
[2024-10-18 10:29] VITALS: BP 118/64; PULSE 94; O2SAT 98
[2024-10-18 10:30] VITALS: BP 117/83; PULSE 83; RESP 22; TEMP 36.9; O2SAT 96
[2024-10-18 12:07] LABS: MANUAL DIFF FLAG NO
[2024-10-18 12:10] LABS: Basophils Absolute Auto 0.1 X10*3/uL (0.0-0.2); Basophils Percent Auto 1.3 % (0-2); Eosinophils Absolute Auto 0.2 X10*3/uL (0.0-0.4); Eosinophils Percent Auto 2.7 % (0-4); Hemoglobin 12.8 g/dl (12.0-16.0); Imm Gran Abs Auto 0.01 X10*3/uL (0.00-0.03); Imm Gran Pct Auto 0.1 % (0.0-0.4); Lymphocytes Percent Auto 28.4 % (20-40); Mean Corpuscular HGB Conc 30.5 g/dl (31.0-35.0); Mean Corpuscular Hemoglobin 23.1 pg (27.0-33.0); Mean Corpuscular Volume 75.7 fL (80.0-98.0); Mean Platelet Volume 9.6 fL (9.4-12.3); Monocytes Absolute Auto 0.6 X10*3/uL (0.1-1.2); Monocytes Percent Auto 8.8 % (2-11); Neutrophils Absolute Auto 4.1 x10*3/uL (2.0-8.3); Neutrophils Percent Auto 58.7 % (45-73); Platelet Count 294 X10*3/uL (160-400); Red Blood Count 5.55 X10*6/uL (4.20-5.50); Red Cell Distribution Width 18.8 % (11.0-16.0)
[2024-10-18] MEDS: Butalb/Acetamin/Caff 50/325/40 TABLET 1 TAB PO (12:14)
[2024-10-18 12:20] LABS: Anion Gap 14 (12-20); Blood Urea Nitrogen 11 mg/dL (9-16); Calcium 8.9 mg/dL (8.4-10.2); Carbon Dioxide 22 mmol/L (22-29); Chloride 113 mmol/L (96-108); Creatinine Clr Calc Pharmacy 79.2; Estimated Glomerular Filt Rate > 60; Glucose Random 85 mg/dL (60-115); Sodium 145 mmol/L (135-145)
[2024-10-18] MEDS: 0.9 % Sodium Chloride 1,000 ML 999 ML IV (12:23)
[2024-10-18 13:56] VITALS: BP 127/66; PULSE 85; RESP 17; TEMP 37; O2SAT 97
== END 2024-10-18 14:18 | disposition home or self-care (01) ==
PROVIDERS: Emergency Provider Emergency Medicine; PCP Nurse Practitioner Family
DX: G43.109 Migraine with aura, not intractable, without status migrainosus (principal); E11.9 Type 2 diabetes mellitus without complications; F32.A Depression, unspecified; Z79.899 Other long term (current) drug therapy
CPT/HCPCS: 36415; 80048; 85025; 93005; 99283; 99285

== ENCOUNTER 2024-10-22 08:27 | Outpatient (AMB) | payer MEDICARE, MEDICAID, SELFPAY ==
[2024-10-22 08:37] VITALS: BP 120/82; PULSE 80; O2SAT 98; BMI 28.5
--- NOTE | 2024-10-22 08:37 | HO.NEPHOV ---
Vital Signs 10/22/24 08:37 Height 5 ft 4 in Weight 166 lb BMI 28.5 BP 120/82 Blood Pressure Location Lt brachial Position Sitting Pulse 80 Pulse Source Pulse Oximeter Pulse Oximetry (%) 98 Oxygen Delivery Method Room Air Intake Visit Reasons: 2 mnts/ Conf Writer Editor Required: No Accompanied by: Self / Same As Patient Allergies adhesive [ADHESIVE] Allergy (Intermediate, Verified 10/22/24 08:39) BLISTER fluticasone [From FLONASE] Allergy (Unknown, Verified 10/22/24 08:39) unknown meperidine [Demerol] Allergy (Unknown, Verified 10/22/24 08:39) vomit metoclopramide [From REGLAN] Allergy (Unknown, Verified 10/22/24 08:39) DIPLOPIA transparent dressing Allergy (Unknown, Verified 10/22/24 08:39) rash morphine [MORPHINE] Adverse Reaction (Severe, Verified 10/22/24 08:39) NAUSEA & VOMITING TEGADERM BANDAGE Allergy (Intermediate, Uncoded 10/18/24 10:27) RASH morphine Allergy (Unknown, Uncoded 10/18/24 10:27) vomit tape Allergy (Unknown, Uncoded 10/18/24 10:27) rash From DEMEROL Adverse Reaction (Severe, Uncoded 10/18/24 10:27) NAUSEA & VOMITING Medication List - Last Reconciled 10/22/24 by Neto Cunningham MD acetaminophen 500 mg PO Q6H PRN MDD 2000mg amiloride 10 mg (2 x 5 mg) PO DAILY aspirin 81 mg PO DAILY atorvastatin 40 mg PO BEDTIME yktywrrmdb-znurvujhzgndy-shkx 50-300-40 mg 1 cap PO DAILY PRN canakinumab (PF) (Ilaris (PF)) 150 mg subcut Q4W cetirizine (Zyrtec) 10 mg PO BID colchicine 1.8 mg PO DAILY cyclobenzaprine 10 mg PO BEDTIME PRN docusate sodium 100 mg PO BID PRN ferrous gluconate 324 mg PO DAILY gabapentin 600 mg PO BID galcanezumab-gnlm (Emgality Pen) 120 mg subcut QMONTH hydroxyzine HCl 25 - 50 mg PO TID PRN immun glob K-ude-nbyf-IgA 0-50 10 gram (Gammagard S-D (IgA < 1 mcg/mL)) 30 grams IV Q3W insulin lispro See Protocol sliding scale doses subcut TIDAC PRN ipratropium-albuterol 20-100 mcg/actuation (Combivent Respimat) 1 puff inhalation QID PRN lamotrigine 50 mg (2 x 25 mg) PO DAILY 30 days lamotrigine ER 200 mg PO BEDTIME levothyroxine 50 mcg PO DAILY@0600 magnesium oxide 400 mg PO DAILY@1200 melatonin 10 mg PO BEDTIME PRN metformin 1,000 mg PO BID montelukast 1 tab PO BEDTIME multivitamin (Daily-[place] tablet) 1 tab PO DAILY norethindrone (contraceptive) (Incassia) 0.35 mg PO DAILY omalizumab (Xolair) 300 mg subcut QMONTH omeprazole 40 mg PO BID@0630,1630 ondansetron HCl 4 mg PO Q8H PRN oxcarbazepine 900 mg (1.5 x 600 mg) PO BID prednisone 20 - 40 mg PO DAILY PRN rizatriptan 10 mg PO BID PRN semaglutide (Ozempic) 0.5 mg subcut SA topiramate 50 mg PO BID venlafaxine 75 mg (3 x 25 mg) PO BEDTIME HPI Comments Details: Meredith is a pleasant 48-year-old woman with a history of immunodeficiency and currently disease IV immunoglobulins. She has a history of bipolar disorder and has been on lithium for several years. 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 Serum creatinine has been stable around 1.0. [place] was discontinued. She is currently on Vraylar. She has developed symptoms of TD. The plan is to switch her back to lithium as per her psychiatrist. She underwent a partial thyroidectomy on 01/06/2022. History of papillary thyroid Ca She disease IV hemoglobin every 3 weeks for immunodeficiency. History of medullary calcinosis of the kidneys. She has been on topiramate for several years. 05/28/23 ; Recently admitted with Campylobacter Jejuni ; Had diarrhea ; Ca and K was low 24 hr urine showed a volume of 4600 ml !! 07/23/23; Amiloride was increased in May; UO has decreased ;She has cut back on soda ;Now she is back on [place] since May 2023 08/20/23 ; Recently she had 2 sinus infections treated with antibiotics without much improvement. She has an appointment with ENT in end of September. She has had some nausea and vomiting. P.o. intake has been suboptimal. Creatinine was 1.06 and BUN bumped up to 27 and she he is here for further evaluation. Baseline BUN is around 18 mg/dL. 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 Blood sugar spiked and ended up in ER. Cr up to 1.3 01/02/24; Recurrent ER visits for vomiting ;REceived IVF fluids and discharged 03/05/24;Was in ER few days ago;HAd diarrhea ;REceived IVF;Gets IVF at [facility] [place] [facility] every 1-2 weeks 05/19/24;Feels dizzy 07/02/24 Fell while dealing with dog and sustained concussion Now under therapy- Speech/Lang/Cognition and ocular and vestibular PT Tries to keep up with fluid intake Cr is around 1.08 Not on Breeds[place] since Apr 2024 08/27/24 Says she feels better after she filed for divorce! 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 Recently had transient ischemic attacks (TIAs) and associated symptoms, notably severe headaches that could suggest migraine. A recent definite TIA occurred on September 30, with previous suspected episodes . The patient wishes to pursue further evaluation with an MRI, delayed by a recent pill camera test. Peripheral edema is noted in the extremities, likely aggravated by liver cirrhosis and medication adjustments for diabetes management, including a transition from Trulicity and Ozempic to Januvia, which has stabilized her A1c to 6 but has also caused gastroparesis. She has an upcoming liver MRI and ultrasound for cancer surveillance with potential changes in monitoring frequency. [facility] Medical History Bipolar 1 disorder PTSD (post-traumatic stress disorder) Acute anxiety Depression History of recurrent pneumonia History of Pseudomonas pneumonia Bipolar disorder Menstrual migraine Allergic asthma Dyslipidemia Type 2 diabetes mellitus FMF (familial Mediterranean fever) Primary immunodeficiency disorder Surgical History History of endoscopy (~11/2023) History of ankle surgery History of umbilical hernia repair History of dilation and curettage History of arthroscopy History of oral surgery History of delivery Social History Household Members: Children Household Members Other:: dog Housing: House Do you presently have visiting nurse or other home services: No Alcohol intake: never Patient Tobacco Use Status: Never used Tobacco e-Cigarette/Vaping Use: Never Used Second Hand Smoke Exposure: No Advance Directives Date on File: 09/30/24 service: No Sexual orientation: Straight/Heterosexual Physical Exam Vital Signs: Last Vital Signs Pulse 80 10/22/24 08:37 BP 120/82 10/22/24 08:37 Pulse Ox 98 10/22/24 08:37 Oxygen Delivery Method Room Air 10/22/24 08:37 BMI result Body Mass Index 28.5 Comfortable Neck supple no JVD. Lungs entry equal no rales. Heart S1-S2 heard no gallop or rub. Abdomen soft nontender. Neuro alert awake oriented. No asterixis. Extremities no edema. Results Reviewed Nephrology Results: Hgb 12.8 g/dl (12.0-16.0) 10/18/24 WBC 7.0 X10*3/uL (4.8-10.8) 10/18/24 Plt Count 294 X10*3/uL (160-400) 10/18/24 Sodium 145 mmol/L (135-145) 10/18/24 Potassium 4.0 mmol/L (3.3-5.1) 10/18/24 Chloride 113 mmol/L (96-108) H 10/18/24 Carbon Dioxide 22 mmol/L (22-29) 10/18/24 BUN 11 mg/dL (9-16) 10/18/24 Creatinine 0.85 mg/dL (0.5-1.4) 10/18/24 Calcium 8.9 mg/dL (8.4-10.2) 10/18/24 Assessment & Plan Assessment & Plan (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 The polyuria is under control while she is on amiloride. Renal function has been stable as well. She is clearly at risk for ongoing in renal injury from lithium however it seems like this might be the only option to treat her bipolar illness. 24 hour urine collection showed a volume of 4600 and urine osmolarity of 220 risks and benefits of going back on lithium was explained and she is back on Breeds[place] since May 2023 Watch renal function and UO while on Breeds[place] She should continue with the low-sodium diet as well. Keep AMiloride at 10 mg QD Stay on low salt diet Given the h/o renal stones , would not add Calcium tabs Shall follow levels The bump in BUN is most likely due to poor p.o. intake. Hemoglobin has increased from 13.3 up to 14.1 most likely due to hemoconcentration I have encouraged her to increase fluid intake. Serum creatinine stable at 1.06. Clinically volume status appears stable. She will require a 24 urine collection to quantify urine output and based on this we can adjust the p.o. fluid intake. 12/11/23 SACHI due to hypoperfusion in a setting of hyperglycemia REcheck labs today ; Increase PO fluids ; Optimize blood sugar and follow up with PCP 01/02/24 Renal function is stable ; Keep on weekly IV fluids ; HAs polyuria - she is on [place] 450 mg BID Currently on Amiloride;Stay on low Sodium diet ;IF polyuria presists, may need to lower or stop Breedsville 05/19/24; Advised to go to ER due to dizziness; Needs IVF Q weekly ;next dose on 06/04/24 07/02/24 From a renal stand point, she is doing better Creatinine is stable Not on [place] any more Encouraged to stay on low salt diet and keep up with PO hydration Keep Amiloride No changes were made today 08/27/24 Cr is down to 0.86 Recheck 24 hr urine for volume and consider lowering Amiloride 10/22/24 Renal fx is stable BP acceptable. Keep AMiloride at 5 mg QD - can take 10 mg PRN based on edema Orders: Orders Basic Metabolic Panel 4 Months N18.9 - Chronic kidney disease, unspecified, N25.1 - Nephrogenic diabetes insipidus Sodium Urine Random 4 Months N18.9 - Chronic kidney disease, unspecified, N25.1 - Nephrogenic diabetes insipidus UA and rflx microscopic 4 Months N18.9 - Chronic kidney disease, unspecified, N25.1 - Nephrogenic diabetes insipidus Creatinine Urine 4 Months N18.9 - Chronic kidney disease, unspecified, N25.1 - Nephrogenic diabetes insipidus Osmolality Urine 4 Months N18.9 - Chronic kidney disease, unspecified, N25.1 - Nephrogenic diabetes insipidus Coding Level of Care Code Est Pt Level 4 (08458) Diagnoses Nephrogenic diabetes insipidus N25.1 CKD (chronic kidney disease) N18.9
--- OUTSIDE RECORDS SUMMARY | 2024-10-22 08:37 | XMS_ITS | Encounter Summary ---
Author Organization [facility] Address [address] [place] [address] Care Team Providers Care Director Of Grants Name Role Phone Bernie Aquino Primary Care Provider [phone] Reason for Visit * Reason Comments Med Refill Encounter Details Date Type Department Care Team (Late Contact Info) Description 10/20/2024 Refill [facility] [address] [place] [phone] [employer] Professor: Rajesh Echevarria NP [address] [place] [address] Intractable migraine with aura without status migrainosus Social History Tobacco Use Types Packs/Day Years [...] Description 11/18/2024 10:30 AM EDT Office Visit [facility] [address] [place] [phone] [employer] Professor: Adrienne Gutiérrez MD [address] [place] [address] documented as of this encounter Visit Diagnoses Diagnosis Intractable migraine with aura without status migrainosus documented in this encounter Care Teams Director Of Grants Relationship Specialty Start Date End Date Bernie Aquino [address] [place] [id number] PCP - General 08/22/21 documented as of this encounter
== END 2024-10-22 09:05 | disposition home or self-care (01) ==
LOC: HO.HKAS 08:28
PROVIDERS: Visit Provider Internal Medicine Hypertension Specialist
DX: N25.1 Nephrogenic diabetes insipidus (principal); N18.9 Chronic kidney disease, unspecified
CPT/HCPCS: 99214

== ENCOUNTER → 2024-10-22 08:27 | Outpatient (BNVA) | payer MEDICARE, MEDICAID, SELFPAY | PROVIDERS: Visit Provider Internal Medicine Hypertension Specialist | DX: N25.1 Nephrogenic diabetes insipidus (principal); N18.9 Chronic kidney disease, unspecified | CPT/HCPCS: 99212 ==

== ENCOUNTER 2024-10-25 20:36 | Emergency (ER) | payer MEDICARE, MEDICAID, SELFPAY ==
[2024-10-25 20:39] VITALS: BP 134/99; BP 160/90; PULSE 75; PULSE 78; RESP 16; TEMP 36.9; O2SAT 98; BMI 28.0
[2024-10-25 20:49] VITALS: BP 134/99; PULSE 78; RESP 16; TEMP 36.9; O2SAT 98
[2024-10-25] MEDS: 0.9 % Sodium Chloride 1,000 ML 999 ML IV (20:54)
[2024-10-25 21:01] LABS: MANUAL DIFF FLAG NO
--- OUTSIDE RECORDS SUMMARY | 2024-10-25 21:01 | XMS_ITS | Encounter Summary ---
Author Organization [facility] Address [address] [place] [address] Care Team Providers Care Frameman Name Role Phone Bernie Aquino Primary Care Provider [phone] Reason for Visit * Reason Comments Med Refill Encounter Details Date Type Department Care Team (Late Contact Info) Description 10/20/2024 Refill [facility] [address] [place] [phone] Asset Liability Analyst: Rajesh Echevarria NP [address] [place] [address] Intractable migraine with aura without [...] Description 11/18/2024 10:30 AM EDT Office Visit [facility] [address] [place] [address] Asset Liability Analyst: Adrienne Gutiérrez MD [address] [place] [address] documented as of this encounter Visit Diagnoses Diagnosis Intractable migraine with aura without status migrainosus documented in this encounter Care Teams Frameman Relationship Specialty Start Date End Date Bernie Aquino [address] [place] [id number] PCP - General 08/22/21 documented as of this encounter
[2024-10-25 21:03] LABS: Basophils Absolute Auto 0.1 X10*3/uL (0.0-0.2); Basophils Percent Auto 1.1 % (0-2); Eosinophils Absolute Auto 0.2 X10*3/uL (0.0-0.4); Eosinophils Percent Auto 3.1 % (0-4); Hematocrit 41.1 % (37.0-47.0); Imm Gran Abs Auto 0.01 X10*3/uL (0.00-0.03); Imm Gran Pct Auto 0.2 % (0.0-0.4); Lymphocytes Absolute Auto 1.8 X10*3/uL (1.2-4.9); Lymphocytes Percent Auto 33.1 % (20-40); Mean Corpuscular HGB Conc 31.6 g/dl (31.0-35.0); Mean Corpuscular Hemoglobin 23.2 pg (27.0-33.0); Mean Corpuscular Volume 73.4 fL (80.0-98.0); Mean Platelet Volume 9.8 fL (9.4-12.3); Monocytes Absolute Auto 0.6 X10*3/uL (0.1-1.2); Monocytes Percent Auto 10.5 % (2-11); Neutrophils Absolute Auto 2.8 x10*3/uL (2.0-8.3); Platelet Count 248 X10*3/uL (160-400); Red Cell Distribution Width 17.9 % (11.0-16.0); White Blood Count 5.4 X10*3/uL (4.8-10.8)
--- NOTE | 2024-10-25 21:06 | ED_ITS ---
HPI - General Adult General Chief complaint: Abdominal Pain Stated complaint: sudden on set migraine and possible TIA Time Seen by Provider: 10/25/24 20:39 Source: patient Mode of arrival: ambulatory Limitations: no limitations History of Present Illness ED Provider: HPI narrative: Patient's history of migraine headache been having nausea vomiting diarrhea for last 1 week was seen at [facility] yesterday workup was negative discharged today she comes as just prior to arrival patient is feeling tingling sensation in the right side of body denies any headache does have increased anxiety Related Data Home Medications ?Medication ?Instructions ?Recorded ?Confirmed montelukast 10 mg tablet 1 tab PO BEDTIME 01/31/22 10/22/24 melatonin 10 mg capsule 10 mg PO BEDTIME PRN Insomnia 04/23/23 10/22/24 ondansetron HCl 4 mg tablet 4 mg PO Q8H PRN Nausea 05/28/23 10/22/24 atorvastatin 40 mg tablet 40 mg PO BEDTIME 12/11/23 10/22/24 cetirizine 10 mg capsule (Zyrtec) 10 mg PO BID 12/11/23 10/22/24 ferrous gluconate 324 mg (38 mg 324 mg PO DAILY 12/11/23 10/22/24 iron) tablet metformin 1,000 mg tablet 1,000 mg PO BID 12/11/23 10/22/24 omeprazole 40 mg capsule,delayed 40 mg PO BID@0630,1630 12/11/23 10/22/24 release colchicine 0.6 mg tablet 1.8 mg PO DAILY 01/02/24 10/22/24 omalizumab 300 mg/2 mL 300 mg subcut QMONTH 03/05/24 10/22/24 subcutaneous syringe (Xolair) docusate sodium 100 mg capsule 100 mg PO BID PRN constipation 04/16/24 10/22/24 galcanezumab-gnlm 120 mg/mL 120 mg subcut QMONTH 04/16/24 10/22/24 subcutaneous pen injector (Emgality Pen) ipratropium 20 mcg-albuterol 100 1 puff inhalation QID PRN SOB 04/16/24 10/22/24 mcg/actuation mist for inhalation (Combivent Respimat) magnesium oxide 400 mg PO DAILY@1200 04/16/24 10/22/24 rizatriptan 10 mg tablet 10 mg PO BID PRN Migraine Headache 04/16/24 10/22/24 prednisone 20 mg tablet 20 - 40 mg PO DAILY PRN familial 04/17/24 10/22/24 Mediterranean fever insulin lispro 100 unit/mL See Protocol subcut TIDAC PRN 07/16/24 10/22/24 subcutaneous pen Blood Sugar Spikes norethindrone (contraceptive) 0.35 0.35 mg PO DAILY 07/16/24 10/22/24 mg tablet (Incassia) acetaminophen 500 mg tablet 500 mg PO Q6H PRN Pain 09/30/24 10/22/24 hgbnftwbfs-xorxggpppeelj-vqstmsgu 1 cap PO DAILY PRN Migraine 09/30/24 10/22/24 50 mg-300 mg-40 mg capsule Headache canakinumab (PF) 150 mg/mL 150 mg subcut Q4W 09/30/24 10/22/24 subcutaneous solution (Ilaris (PF)) cyclobenzaprine 10 mg tablet 10 mg PO BEDTIME PRN Muscle Spasm 09/30/24 10/22/24 gabapentin 600 mg tablet 600 mg PO BID 09/30/24 10/22/24 hydroxyzine HCl 25 mg tablet 25 - 50 mg PO TID PRN anxiety 09/30/24 10/22/24 immune glob,gamma(IgG) 10 30 g IV Q3W 09/30/24 10/22/24 fzxj-jgz-asud-IgA 0 to 50 mcg/mL IV solution (Gammagard S-D (IgA < 1 mcg/mL)) levothyroxine 50 mcg tablet 50 mcg PO DAILY@0600 09/30/24 10/22/24 semaglutide 0.25 mg or 0.5 mg (2 0.5 mg subcut SA 09/30/24 10/22/24 mg/3 mL) subcutaneous pen injector (Ozempic) aspirin 81 mg tablet 81 mg PO DAILY 10/22/24 10/22/24 Previous Rx's ?Medication ?Instructions ?Recorded lamotrigine 200 mg tablet,extended 200 mg PO BEDTIME #30 tabs 07/22/24 release 24 hr lamotrigine 25 mg tablet 50 mg (2 x 25 mg) PO DAILY 30 days 07/22/24 #60 tabs multivitamin (Daily-[place]id tablet) 1 tab PO DAILY #0 tabs 07/22/24 oxcarbazepine 600 mg tablet 900 mg (1.5 x 600 mg) PO BID #90 07/22/24 tabs topiramate 50 mg tablet 50 mg PO BID #60 tabs 07/22/24 venlafaxine 25 mg tablet 75 mg (3 x 25 mg) PO BEDTIME #90 07/22/24 tabs amiloride 5 mg tablet 10 mg (2 x 5 mg) PO DAILY #60 tabs 10/14/24 Allergies Allergy/AdvReac Type Severity Reaction Status Date / Time adhesive [ADHESIVE] Allergy Intermediate BLISTER Verified 10/25/24 20:44 fluticasone [From FLONASE] Allergy Unknown unknown Verified 10/25/24 20:44 meperidine [Demerol] Allergy Unknown vomit Verified 10/25/24 20:44 metoclopramide [From REGLAN] Allergy Unknown DIPLOPIA Verified 10/25/24 20:44 transparent dressing Allergy Unknown rash Verified 10/25/24 20:44 morphine [MORPHINE] AdvReac Severe NAUSEA & Verified 10/25/24 20:44 VOMITING TEGADERM BANDAGE Allergy Intermediate RASH Uncoded 10/18/24 10:27 morphine Allergy Unknown vomit Uncoded 10/18/24 10:27 tape Allergy Unknown rash Uncoded 10/18/24 10:27 From DEMEROL AdvReac Severe NAUSEA & Uncoded 10/18/24 10:27 VOMITING Review of Systems 2 Review of Systems: Yes all other systems are reviewed and are negative PMFSH Past Medical History Medical History Bipolar 1 disorder PTSD (post-traumatic stress disorder) Acute anxiety Depression History of recurrent pneumonia History of Pseudomonas pneumonia Bipolar disorder Menstrual migraine Allergic asthma Dyslipidemia Type 2 diabetes mellitus FMF (familial Mediterranean fever) Primary immunodeficiency disorder Surgical History History of endoscopy (~11/2023) History of ankle surgery History of umbilical hernia repair History of dilation and curettage History of arthroscopy History of oral surgery History of delivery Social History Social History Household Members: Children Household Members Other:: dog Housing: House Do you presently have visiting nurse or other home services: No Alcohol intake: never Patient Tobacco Use Status: Never used Tobacco Smoked in Last 30 Days: No e-Cigarette/Vaping Use: Never Used Second Hand Smoke Exposure: No Use of substances other than those prescribed or required for medical reasons: No Advance Directives: Yes Advance Directives on File: Yes Advance Directives Date on File: 09/30/24 Patient : No service: No Sexual orientation: Straight/Heterosexual Physical Exam ED Vital Signs: Vital Signs - 24 hr 10/25/24 20:39 10/25/24 20:49 10/25/24 22:02 Temperature 98.4 F 98.4 F 98.6 F Pulse Rate 78 78 82 Respiratory Rate 16 16 20 Blood Pressure 134/99 H 134/99 H 126/89 Pulse Oximetry 98 98 99 Oxygen Delivery Method Room Air Room Air Room Air BMI result Body Mass Index 28.0 Appearance: Alert. Oriented X3. No acute distress. Anxious Eyes: PERRLA, No Nystagmus ENT: Pharynx normal. Oral Mucosa moist Neck: Normal inspection. Neck supple. CVS: Normal heart rate and rhythm. Pulses normal. Respiratory: No respiratory distress. Equal air entry bilateral, no wheezing/rales/rhonchi Abdomen: Soft and nontender. Bowel sounds are present, no mass palpable, no CVA tenderness Skin: Skin warm and dry. Normal skin color. Normal skin turgor. Extremities: No lower extremity edema. No calf tenderness Neuro: Oriented X 3. No motor deficit. No sensory deficit.No cerebellar signs , cranial nerves II-XII intact NIH Stroke Scale Internal: Initial- Upon Arrival Level of Consciousness: Alert Level of Consciousness Questions: Answers both questions correctly Level of Consciousness Commands: Performs both tasks correctly Best Gaze: Normal Visual: No visual loss Facial Palsy: Normal Motor Arm (Right): No drift Motor Arm (Left): No drift Motor Leg (Right): No drift Motor Leg (Left): No drift Limb Ataxia: Absent Sensory: Normal Best Language: No aphasia Dysarthia: Normal Extinction and Inattention: No abnormality Score: 0 Medications Administered Discontinued Medications Generic Name Dose Route Start Last Admin Trade Name Freq PRN Reason Stop Dose Admin Sodium Chloride 1,000 mls @ 999 mls/hr 10/25/24 20:45 10/25/24 22:05 Ns IV 10/25/24 21:45 Infused .Q1H1M ONE Infusion Midazolam HCl 1 mg 10/25/24 21:09 10/25/24 22:05 Midazolam Hcl 2 Mg/2 Ml Vial IVPUSH 10/25/24 21:10 Not Given ONCE ONE Ondansetron HCl 4 mg 10/25/24 21:09 10/25/24 22:05 Ondansetron Hcl 4 Mg/2 Ml Vial IVPUSH 10/25/24 21:10 4 mg ONCE ONE Administration Medical Decision Making Differential Diagnosis Differential Diagnoses: The differential diagnosis associated with the presentation includes Lab Data MDM Lab Attestation statement: I reviewed the patient's lab results. 10/25/24 20:52 10/25/24 20:52 Labs: Lab Results 10/25/24 Range/Units 20:52 WBC 5.4 (4.8-10.8) X10*3/uL RBC 5.60 H (4.20-5.50) X10*6/uL Hgb 13.0 (12.0-16.0) g/dl Hct 41.1 (37.0-47.0) % MCV 73.4 L (80.0-98.0) fL MCH 23.2 L (27.0-33.0) pg MCHC 31.6 (31.0-35.0) g/dl RDW 17.9 H (11.0-16.0) % Plt Count 248 (160-400) X10*3/uL MPV 9.8 (9.4-12.3) fL Immature Gran % (Auto) 0.2 (0.0-0.4) % Neut % (Auto) 52.0 (45-73) % Lymph % (Auto) 33.1 (20-40) % [place] % (Auto) 10.5 (2-11) % Eos % (Auto) 3.1 (0-4) % Baso % (Auto) 1.1 (0-2) % Lymph # (Auto) 1.8 (1.2-4.9) X10*3/uL [place] # (Auto) 0.6 (0.1-1.2) X10*3/uL Eos # (Auto) 0.2 (0.0-0.4) X10*3/uL Baso # (Auto) 0.1 (0.0-0.2) X10*3/uL Abs Immat Gran (auto) 0.01 (0.00-0.03) X10*3/uL Absolute Neuts (auto) 2.8 (2.0-8.3) x10*3/uL Absolute Nucleated RBC 0.000 (0.0-0.012) X10*3/uL Nucleated RBC % (auto) 0.0 (0.0-0.2) /100WBC Sodium 144 (135-145) mmol/L Potassium 4.0 (3.3-5.1) mmol/L Chloride 115 H (96-108) mmol/L Carbon Dioxide 21 L (22-29) mmol/L Anion Gap 12 (12-20) BUN 11 (9-16) mg/dL Creatinine 0.76 (0.5-1.4) mg/dL Estim Creat Clear Calc 89.2 Estimated GFR > 60 Random Glucose 116 H (60-115) mg/dL Calcium 9.3 (8.4-10.2) mg/dL Magnesium 2.2 (1.6-2.6) mg/dL Total Bilirubin 0.1 (0.0-1.0) mg/dL AST 31 (5-31) U/L ALT 33 H (0-31) U/L Alkaline Phosphatase 125 H (39-117) U/L Total Protein 7.5 (6.5-8.0) g/dL Albumin 4.5 (3.5-5.0) g/dL Discharge Plan Discharge Clinical Impression: Gastroenteritis Prescriptions: No Action amiloride 5 mg tablet 10 mg PO DAILY Qty: 60 5RF montelukast 10 mg tablet 1 tab PO BEDTIME omeprazole 40 mg capsule,delayed release(DR/EC) 40 mg PO BID@0630,1630 colchicine 0.6 mg tablet 1.8 mg PO DAILY norethindrone (contraceptive) [Incassia] 0.35 mg Tablet 0.35 mg PO DAILY insulin lispro 100 unit/mL insulin pen See Protocol SUBCUT TIDAC PRN (Reason: Blood Sugar Spikes) Protocol: Insulin Correction Scale Less than or equal to 110 ---- Give (units): 0 111 to 150 Give (units): 0 151 to 200 Give (units): 0 201 to 250 Give (units): 2 251 to 300 Give (units): 4 301 to 350 Give (units): 6 Greater than 350 Give (units): 8 Call MD if Blood Glucose > : 350 Rx Instructions: Patient takes while on Prednisone regimens for blood sugar spikes. multivitamin [Daily-Enid] Tablet 1 tab PO DAILY Qty: 0 0RF venlafaxine 25 mg Tablet 75 mg PO BEDTIME Qty: 90 0RF lamotrigine 25 mg Tablet 50 mg PO DAILY 30 Days Qty: 60 0RF oxcarbazepine 600 mg tablet 900 mg PO BID Qty: 90 0RF topiramate 50 mg tablet 50 mg PO BID Qty: 60 0RF lamotrigine 200 mg tablet extended release 24hr 200 mg PO BEDTIME Qty: 30 0RF rizatriptan 10 mg Tablet 10 mg PO BID PRN (Reason: Migraine Headache) Rx Instructions: do not exceed 3 doses per 24 hrs docusate sodium 100 mg capsule 100 mg PO BID PRN (Reason: constipation) Combivent Respimat 20-100 mcg/actuation mist 1 puff INHALATION QID PRN (Reason: SOB) magnesium oxide 400 mg magnesium Tablet 400 mg PO DAILY@1200 Rx Instructions: Take once daily at noon starting on 04/17/24 Emgality Pen 120 mg/mL pen injector 120 mg subcut QMONTH prednisone 20 mg tablet 20 - 40 mg PO DAILY PRN (Reason: familial Mediterranean fever) levothyroxine 50 mcg tablet 50 mcg PO DAILY@0600 Gammagard S-D (IgA < 1 mcg/mL) 10 gram Recon Soln 30 g IV Q3W Ilaris (PF) 150 mg/mL Solution 150 mg SUBCUT Q4W Ozempic 0.25 mg or 0.5 mg (2 mg/3 mL) pen injector 0.5 mg subcut SA cyclobenzaprine 10 mg Tablet 10 mg PO BEDTIME PRN (Reason: Muscle Spasm) hydroxyzine HCl 25 mg tablet 25 - 50 mg PO TID PRN (Reason: anxiety) cpzesovimt-xykmqanhzefbp-giic 50-300-40 mg capsule 1 cap PO DAILY PRN (Reason: Migraine Headache) gabapentin 600 mg tablet 600 mg PO BID acetaminophen 500 mg Tablet 500 mg PO Q6H MDD 2000mg PRN (Reason: Pain) melatonin 10 mg capsule 10 mg PO BEDTIME PRN (Reason: Insomnia) Zyrtec 10 mg capsule 10 mg PO BID ondansetron HCl 4 mg tablet 4 mg PO Q8H PRN (Reason: Nausea) atorvastatin 40 mg tablet 40 mg PO BEDTIME ferrous gluconate 324 mg (38 mg iron) tablet 324 mg PO DAILY metformin 1,000 mg tablet 1,000 mg PO BID Xolair 300 mg/2 mL syringe 300 mg subcut QMONTH aspirin 81 mg tablet 81 mg PO DAILY Print Language: Telugu
[2024-10-25 21:18] LABS: Alanine Aminotransferase 33 U/L (0-31); Albumin Level 4.5 g/dL (3.5-5.0); Alkaline Phosphatase 125 U/L (39-117); Anion Gap 12 (12-20); Aspartate Amino Transferase 31 U/L (5-31); Bilirubin Total 0.1 mg/dL (0.0-1.0); Blood Urea Nitrogen 11 mg/dL (9-16); Calcium 9.3 mg/dL (8.4-10.2); Carbon Dioxide 21 mmol/L (22-29); Chloride 115 mmol/L (96-108); Creatinine Clr Calc Pharmacy 89.2; Estimated Glomerular Filt Rate > 60; Glucose Random 116 mg/dL (60-115); Magnesium 2.2 mg/dL (1.6-2.6); Sodium 144 mmol/L (135-145); Total Protein 7.5 g/dL (6.5-8.0)
[2024-10-25 22:02] VITALS: BP 126/89; PULSE 82; RESP 20; TEMP 37; O2SAT 99
[2024-10-25] MEDS: ondansetron HCL 4 MG/2 ML VIAL IVPUSH (22:05)
[2024-10-25 23:18] VITALS: BP 133/82; PULSE 96; RESP 16; TEMP 37; O2SAT 96
== END 2024-10-25 23:19 | disposition home or self-care (01) ==
PROVIDERS: Emergency Provider Internal Medicine; PCP Nurse Practitioner Family
DX: K52.9 Noninfective gastroenteritis and colitis, unspecified (principal); R20.2 Paresthesia of skin; F41.9 Anxiety disorder, unspecified; R29.700 NIHSS score 0; E11.9 Type 2 diabetes mellitus without complications; E78.5 Hyperlipidemia, unspecified; Z79.899 Other long term (current) drug therapy; Z79.4 Long term (current) use of insulin; Z79.82 Long term (current) use of aspirin
CPT/HCPCS: 36415; 80053; 83735; 85025; 96361; 96374; 99284; J2405

== ENCOUNTER 2024-12-29 08:49 | Outpatient (AMB) | payer MEDICARE, MEDICAID, SELFPAY ==
--- NOTE | 2024-12-29 08:56 | HO.SPINEOV ---
Vital Signs 12/29/24 09:11 Height 5 ft 4 in Weight 162 lb BMI 27.8 Intake Visit Reasons: Lumbar herniated disc Intake Note: Ms. Garcia is here today c/o Low back pain with shooting pain to her legs on ocassion. Tubular Products Fabricator Required: No Allergies adhesive (ADHESIVE) Allergy (Intermediate, Verified 12/29/24 09:08) BLISTER fluticasone (From FLONASE) Allergy (Unknown, Verified 12/29/24 09:08) unknown meperidine (Demerol) Allergy (Unknown, Verified 12/29/24 09:08) vomit metoclopramide (From REGLAN) Allergy (Unknown, Verified 12/29/24 09:08) DIPLOPIA transparent dressing Allergy (Unknown, Verified 12/29/24 09:08) rash morphine (MORPHINE) Adverse Reaction (Severe, Verified 12/29/24 09:08) NAUSEA & VOMITING TEGADERM BANDAGE Allergy (Intermediate, Uncoded 10/18/24 10:27) RASH morphine Allergy (Unknown, Uncoded 10/18/24 10:27) vomit tape Allergy (Unknown, Uncoded 10/18/24 10:27) rash From DEMEROL Adverse Reaction (Severe, Uncoded 10/18/24 10:27) NAUSEA & VOMITING Physical Exam Vital Signs: BMI result Body Mass Index 27.8 Assessment & Plan Assessment & Plan (1) Back pain: Code(s): M54.9 - Dorsalgia, unspecified Category: Medical Plan Dear Bernie Mrs Garcia came in to see us for an office visit today. As you know she is a 49-year-old female with familial Mediterranean fever, common variable immunodeficiency, who has had back pain for years. The symptoms usually involves some kind of flare-up where even just a mild trauma or altered motion of her back will cause her to have intense back pain that will be incapacitating. At 1 point she was seen by someone and told that she was not a surgical candidate, or that there was not a surgery that they could do for her. Since then she just been dealing with it. She takes Tylenol. She is not a candidate for cortisone shots because these have been affecting her immune system I believe. She was getting these for her hips but was told to stop. She comes in today for an evaluation with an MRI showing degenerative disc disease at L5-S1. PMH: As above, she has familial Mediterranean fever, common variable immunodeficiency, type 2 diabetes, nephrogenic diabetes insipidus, chronic kidney disease, asthma, cirrhosis, migraines, constipation, hypothyroidism Social hx: She has not smoke drink use any recreational drugs Medications: She takes injections 3 times a week of IV IG, and takes 4 times a week injections of various medications to help her immune system, takes Topamax, Singulair, oxcarbazepine, colchicine, amiloride, cetirizine, omeprazole, magnesium, melatonin, dicyclomine, lamotrigine, Januvia, senna, Linzess Allergies: Please see the [employer] list Physical exam: Awake alert oriented no acute distress, strength and reflexes normal, gait is normal Imaging review: Lumbar MRI done at [facility] shows mild disc degeneration at L4-5 and L5-S1, no signs of spondylolisthesis, fracture, subluxation. No herniated discs seen. There is no nerve compression. Impression: 49-year-old female with history of familial Mediterranean fever, who has chronic back pain with intermittent flare-ups which can be incapacitating. Her MRI just shows some mild disc degeneration so I do not think the symptoms are discogenic. Unfortunately I do not have a solution for her surgically. My guess is that it is connected some how to her inflammatory condition, but right now there is not a surgical indication based on her imaging. Unfortunately she can not have cortisone injections so these are off the table. She works out at the gym and that seems to help quite a bit. She can continue taking her Tylenol, avoiding stressors to her back and exercising. We would be happy to see her back down the road if something changes. Thank you for allowing us to care for your patient. The total time spent with this visit with this patient was 45 minutes reviewing history, physical exam, lumbar imaging review, and implementation of treatment plan or further diagnostic testing Armando Kumar MD,PhD [facility] Coding Level of Care Code New Pt Level 4 (94657) Diagnoses Back pain M54.9
[2024-12-29 09:11] VITALS: BMI 27.8
--- OUTSIDE RECORDS SUMMARY | 2024-12-29 09:15 | XMS_ITS | Clinical Summary ---
Author Organization [facility] Address [address] [place] [phone] Phone Care Team Providers Care Residential Caregiver Name Role Phone Bernie Aquino NP Primary Care Provider [phone] Lisandro Bhat MD Unavailable [phone] Allergies Active Allergy Reactions Criticality Noted Date Comments Adhesive 11/26/2024 Adhesive Tape-Silicones Rash Low 03/15/2024 Amoxicillin-Pot Clavulanate Other (See Comments) Medium 07/01/2021 Other Reaction(s): increases sx makes sicker makes sicker Other reaction(s): Other (see comments) makes sicker makes sicker makes sicker Other reaction(s): Other (see comments) makes sicker makes sicker Other Reaction(s): increases sx Other reaction(s): Other (see comments) makes sicker makes sicker makes sicker makes sicker Other reaction(s): Other (see comments) makes sicker makes sicker makes sicker Atropine-Demerol Nausea and/or Vomiting 11/26/2024 Azithromycin Other (See Comments) Medium 07/01/2021 Other Reaction(s): increases sx's Diarrhea Diarrhea Other reaction(s): Other (see comments) Diarrhea Diarrhea Diarrhea Other reaction(s): Other (see comments) Diarrhea Diarrhea Other Reaction(s): increases sx's Other reaction(s): Other (see comments) Diarrhea Diarrhea Diarrhea Diarrhea Other reaction(s): Other (see comments) Diarrhea Diarrhea Diarrhea Benzethonium Chloride 11/08/2021 Cat Dander Other (See Comments) 07/01/2021 Fluorouracil-Adhesive Bandage Other (See Comments) 07/01/2021 Fluticasone Headaches,Other (See Comments) Medium 08/21/2011 Other Reaction(s): rhinitis Other reaction(s): Headache Meperidine Nausea And Vomiting,Nausea Only,Vomiting High 08/21/2011 Other reaction(s): Vomiting Methylphenidate 01/06/2022 Metoclopramide Dizziness,Other (See Comments) High 05/16/2018 Other Reaction(s): double vision, Other (See Comments), Vision Problem Other reaction(s): double vision Other reaction(s): Dizziness, double vision Double vision Other reaction(s): Dizziness, double vision Other reaction(s): Dizziness, double vision Other reaction(s): double vision Other reaction(s): Dizziness, double vision Morphine Nausea And Vomiting,Nausea and/or Vomiting,Nausea Only,Vomiting High 08/21/2011 vomit Nsaids (Non-Steroidal Anti-Inflammatory Drug) Other (See Comments) High 04/10/2024 CKD Ondansetron Prolonged QT Interval High 11/26/2024 Other Low 07/01/2021 Pt allergic to cat hair Encounters Date Type Department Care Team Description 11/27/2024 Telephone [facility] [address] [place] [id number] Grisel Black MA 11/26/2024 2:30 PM EDT Office Visit [facility] Neurology [address], [address] [place] [id number] Tray Russo MD, PhD Intractable migraine with status migrainosus, unspecified migraine type (Primary Dx) 11/26/2024 Ancillary Orders [facility] [address] [place] [address] Tray Russo MD, PhD 11/26/2024 Ancillary Orders [facility] [address] [place] [address] Tray Russo MD, PhD 11/24/2024 Ancillary Orders [facility] [address] [place] [address] Caitlyn Brady MD 11/24/2024 Ancillary Orders [facility] [address] [place] [address] Caitlyn, MD Caitlyn 09/30/2024 12:05 AM EDT - 09/30/2024 11:59 PM EDT Hospital Encounter [facility] [address] [place] [address] Tray Russo MD, PhD Discharge Disposition: Home or Self Care 09/30/2024 - 09/30/2024 12:04 AM EDT Hospital Encounter [facility] [address] [place] [address] Tray Russo MD, PhD Discharge Disposition: Home or Self Care from Last 3 Months Social History Tobacco Use Types Packs/Day Years Used Date Smoking Tobacco: Never Smokeless Tobacco: Never Tobacco Cessation:Counseling Given: Not Answered Education Answer Date Recorded Are you interested in more education? Not on ozzy e 10/15/2024 Are you concerned about learning? Not on file 10/15/2024 No 10/15/2024 No 10/15/2024 Digital Access Answer Date Recorded No 10/15/2024 No 10/15/2024 Reliable internet access at home? Not on file 10/15/2024 Device with a working camera? Not on file Comments Unknown Sex and Gender Information Value Date Recorded Sex Assigned at Female 05/09/2022 11:04 AM EST Legal Sex Female 11:02 AM EST Gender Identity Female 05/09/2022 11:04 AM EST Sexual Orientation Straight 05/09/2022 11 :04 AM EST Last Filed Vital Signs Vital Sign Reading Time Taken Comments Blood Pressure - - Pulse - - Temperature - - Respiratory Rate - - Oxygen Saturation - - Inhaled Oxygen Concentration - - Weight 76.2 kg (168 lb) 11/26/2024 2:20 PM EDT Height - - Body Mass Index - - Plan of Treatment Health Maintenance Due Date Last Done Comments LIPID PANEL 1975 DEPRESSION SCREENING 1987 HIV ONE-TIME SCREENING (18-6 5 YEARS) 10/27/1993 PAP SMEAR 10/27/1996 MAMMOGRAM 2015 COLOGUARD 10/27/2020 COLONOSCOPY 10/27/2020 COLORECTAL CANCER SCREENING 10/27/2020 FIT TEST 10/27/2020 FOBT 10/27/2020 SIGMOIDOSCOPY 10/27/2020 VIRTUAL COLONOSCOPY 10/27/2020 COVID-19 VACCINE (2023-2 5 season) 2024 Adult Td,Tdap Booster 09/20/2027 09/19/2017 , 12/08/2007 HEPATITIS C SCREENING Completed 05/29/2024 SMOKING STATUS SCREENING (On ce After 26 Yrs) Completed 11/26/2024 HEPATITIS A VACCINES Aged Out No long er eligible based on patient's age to complete this topic HIB VACCINES Aged Out No longer eligi ble based on patient's age to complete this topic MENINGOCOCCAL VACCINES (ACWY) Aged Out No longer eligible based on patient's age to complete this topic MENINGOCOCCAL VACCINES (B) Aged Out N o longer eligible based on patient's age to complete this topic PNEUMOCOCCAL VACCINES (0-49 years) Aged Out No longer eligible b ased on patient's age to complete this topic Medical Devices Not on file Procedures Procedure Name Priority Date/Time Associated Diagnosis Comments CT HEAD OUTSIDE (NO INTERPRETATION) Routine 09/30/2024 12:[address] NECK OUTSIDE (NO INTERPRETATION) Routine 09/30/2024 12:00 AM EDT from Last 3 Months Results * CT Head Outside (No Interpretation) (09/30/2024 12:05 AM EDT) Narrative [facility] INTERFACES - 11/26/2024 1:40 PM EDT This study is for PACS storage only and not for interpretation. Tray Russo MD, PhD IMG OUTSIDE IMAGING W/OUT INTERPRETATION Final Result Performing Organization Address City/[facility] Co de Phone Number [facility] IMG INTERFACES * CT Neck Outside (No Interpretation) (09/30/2024 12:00 AM EDT) Narrative [facility] IMG INTERFACES - 11/26/2024 1:40 PM EDT This study is for PACS storage only and not for interpretation. Tray Russo MD, PhD IMG OUTSIDE IMAGING W/OUT INTERPRETATION Final Result [facility] IMG INTERFACES from Last 3 Months Insurance MEDICARE PART A & B [facility] MEDICARE PART A & B MEDICARE PART A & B MEDICARE PART A & B MEDICARE PART A & B MED[place] & [place] [facility] [place] [place] Care Teams Residential Caregiver Relationship Specialty Start Date End Date Bernie Aquino NP [address] [place] [address] PCP - General Family Medicine 05/09/22 Lisandro Bhat MD [address] [place] [address] 05/09/22 Additional Source Comments The information contained in this document represents components of the legal health record. It is not the complete legal health record.[facility]
--- OUTSIDE RECORDS SUMMARY | 2024-12-29 09:15 | XMS_ITS | Encounter Summary ---
Author Organization [facility] Address [address] [place] [address] Phone Care Team Providers Care Band Nailer Name Role Phone Unavailable Primary Care Provider Unavailabl e Encounter Details Date Type Department Care Team (Late st Contact Info) Description 07/05/2022 Telephone [facility] [address] [place] [address] Julee Stephens MA Social History [...] you to know the orders are at [facility]. documented in this encounter Plan of Treatment Not on file documented as of this encounter Visit Diagnoses Not on filedocumented in this encounter
--- OUTSIDE RECORDS SUMMARY | 2024-12-29 09:15 | XMS_ITS | Encounter Summary ---
Author Organization [facility] Address [address] [place] [address] Care Team Providers Care Head Cook Name Role Phone Bernie Aquino Primary Care Provider [phone] Encounter Details Date Type Department Care Team (Late Contact Info) Description 09/05/2024 [employer] Message [facility] Financial Clearance Department [address] [place] [address] Chemayi, Generic Provider [address] [place] [address] Prescritption [place] Social History Tobacco Use Types [...] Care Team (Late st Contact Info) Description 02/10/2025 11:30 AM EDT Office Visit [facility] [address] [place] [phone] [employer] Contemporary Art Curator: Adrienne Gutiérrez MD [address] [place] [phone] documented as of this encounter Visit Diagnoses Not on filedocumented in this encounter Care Teams Head Cook Relationship Specialty Start Date End Date Bernie Aquino [address] [place] [address] PCP - General 08/22/21 documented as of this encounter
--- OUTSIDE RECORDS SUMMARY | 2024-12-29 09:15 | XMS_ITS | Clinical Summary ---
Author Organization [facility] Address [address] [place] [address] Care Team Providers Care Marine Engineer Cpvec Name Role Phone Bernie Aquino HOME CARE MANAGER Primary Care Provider [phone] Allergies Active Allergy Reactions Criticality Noted Date [...] 86 02/26/2024 8:13 AM EDT Temperature 36.9 C (98.4 F) 02/26/2024 8:13 AM EDT Respiratory Rate 18 02/26/2024 8:13 AM EDT [...] Cancer Screening (Colonoscopy) 10/27/2020 Influenza Vaccine (#1) 2025 9, 02/13/2018, 02/08/2017, Additional history exists DTap / Tdap / Td (4 - Td or Tdap) 07/05/2032 07/05/2022, 09/19/2017, 12/08/2007 Pneumococcal Vaccine Aged Out 05/13/2014, 12/20/19 10 No longer eligible based on patient's age to complete this topic RSV Ped < 20 months Aged Out No longe r eligible based on patient's age to complete this topic Care Teams Marine Engineer Cpvec Relationship Specialty Start Date End Date Bernie Aquino NP [address] [facility] [place] [address] PCP - General Family Medicine 10/05/21
== END 2024-12-29 09:32 | disposition home or self-care (01) ==
LOC: HO.HNS 08:50
PROVIDERS: PCP Nurse Practitioner Family; Visit Provider Physician Assistant
DX: M54.9 Dorsalgia, unspecified (principal)
CPT/HCPCS: 99204

== ENCOUNTER → 2024-12-29 08:49 | Outpatient (BNVA) | payer MEDICARE, MEDICAID, SELFPAY | PROVIDERS: PCP Nurse Practitioner Family; Visit Provider Physician Assistant | DX: M54.9 Dorsalgia, unspecified (principal); Z79.899 Other long term (current) drug therapy | CPT/HCPCS: 99202 ==

== ENCOUNTER 2025-01-28 10:10 | Outpatient (AMB) | payer MEDICARE, MEDICAID, SELFPAY ==
--- OUTSIDE RECORDS SUMMARY | 2024-02-26 07:53 | XMS_ITS | Encounter Summary ---
Author Organization [facility] Address [address] [place] [address] Care Team Providers Care Procurement Inspector Name Role Phone Bernie Aquino TWINE REELING MACHINE OPERATOR Primary Care Provider Encounter Details Date Type Department Care Team (Late st Contact Info) Description 02/26/2024 7:53 AM EDT Hospital Encounter TH HISTORIC ENCOUNTERS [facility]AST[facility] CONVERSION ONLY Social History Tobacco Use Types Packs/Day Years Used Date Smoking Tobacco: Never Smokeless Tobacco: Never Alcohol Use Standard Drinks/Week Comments Never 0 (1 standard drink = 0.6 oz pur e alcohol) Interpersonal Safety Answer Date Record ed Physical Abuse 06/27/2024 Verbal Abuse 06/27/2024 Comments No Sex and Gender Information Value Date Recorded Sex Assigned at Female 04/10/2024 9:15 PM EST Legal Sex Female 9:58 AM EST Gender Identity Female 04/10/2024 9:15 PM EST Sexual Orientation Straight 04/10/2024 9: 15 PM EST documented as of this encounter Last Filed Vital Signs Vital Sign Reading Time Taken Comments Blood Pressure - - Pulse - - Temperature - - Respiratory Rate - - Oxygen Saturation - - Inhaled Oxygen Concentration - - Weight 79.8 kg (176 lb) 01/15/2024 8:06 AM EDT Height 162.6 cm (5' 4 ) 01/09/2023 8:07 AM EDT Body Mass Index 30.21 01/09/2023 8:07 AM EDT documented in this encounter Progress Notes * Historical, Notes Results - 02/26/2024 8:00 AM EDT Patient arrives ambulatory for IVIG. Patient states she had Covid two weeks ago, she has recovered from that but now has bronchitis. Patient went to urgent care yesterday and was given steroids and cough medicine. Patient's vitals are stable, she denies fevers. Patient is in contact with her immunology office. Patient's port accessed without difficulty. Patient pre-medicated with tylenol. She took her zyrtec today so claritin held. Patient's hydration initiated per orders. Patient resting comfortably in chair with call boyd in reach. 1036-IVIG initiated per protocol starting at 0.5ml/kg/hr and increased per protocol up to 3ml/kg/hr. Patient rested during infusion and ate well for lunch. 1300-Patient completed IVIG without incident. Patient's port flushed and deaccessed per protocol. Patient's next appointment scheduled and provided to her. Patient stable upon discharge. documented in this encounter Plan of Treatment Upcoming Encounters Date Type Department Care Team (Late st Contact Info) Description 02/03/2025 9:00 AM EDT Appointment [facility] [address] [place] [phone] 02/17/2025 8:00 AM EDT Appointment [facility] [address] [place] [phone] 04/01/2025 10:30 AM EST Office Visit [facility] [address] [place] [phone] Ulises Hancock MD [address] [place] [address] documented as of this encounter Visit Diagnoses Not on filedocumented in this encounter Additional Health Concerns Infection Onset Date Last Indicated Resolved Time Respiratory Rule-Out 03/15/2024 03/15/2024 024 6:51 PM EDT COVID-19 Rule-Out 03/15/2024 03/15/2024 03/15/2024 6:51 PM EDT Enterovirus 03/15/2024 03/15/2024 04/08/2024 7:06 PM EST Rhinovirus 03/15/2024 03/15/2024 04/08/2024 7:06 PM EST Respiratory Rule-Out 05/04/2024 05/04/2024 024 5:58 PM EST COVID-19 Rule-Out 05/04/2024 05/04/2024 05/04/2024 5:58 PM EST Respiratory Rule-Out 12/23/2024 12/23/2024 025 4:39 PM EDT COVID-19 Rule-Out 12/23/2024 12/23/2024 12/23/2024 4:39 PM EDT documented as of this encounter Care Teams Procurement Inspector Relationship Specialty Start Date End Date Bernie Aquino NP [address] [facility] [address] PCP - General Family Medicine 10/05/21 documented as of this encounter
--- OUTSIDE RECORDS SUMMARY | 2025-01-27 07:57 | XMS_ITS | Encounter Summary ---
Author Organization [facility] Address [address] [place] [address] Care Team Providers Care Skein Winding Operator Name Role Phone Bernie Aquino UNIVERSITY LECTURER Primary Care Provider + [phone] Reason for Visit * Episode Based Medications (Routine) - Authorized Specialty Diagnoses / Procedures Referred By Javier cruz Referred To Contact Diagnoses CVID (common variable immunodeficiency) ([facility] V24, [facility] V28) Deandre Schroeder MD [address] [place] [phone] Phone: tel: fax: [facility] [address] [place] [phone] Phone: tel: fax: Referral ID Status Reason Start Date Expiration Date V isits Requested Visits Authorized [id number] Authorized 03/10/2024 03/10/2025 1 1 Encounter Details Date Type Department Care Team (Latest Contact Info) Description 01/27/2025 7:57 AM EDT Hospital Encounter [facility]fusion Center [address] [place] [phone] Deandre Schroeder MD [address] [place] [address] CVID (common variable immunodeficiency) ([facility] V24, [facility] V28) (Primary Dx) Social History Tobacco Use [...] Sign Reading Time Taken Comments Blood Pressure 125/87 01/27/2025 8:10 AM EDT Pulse 98 01/27/2025 8:10 AM EDT Temperature 36.9 C (98.4 F) 01/27/2025 8:10 AM EDT Respiratory Rate - - Oxygen Saturation 100% 01/27/2025 8:10 AM EDT Inhaled Oxygen Concentration - - Weight 77.7 kg (171 lb 6.4 oz) 01/27/2025 8:10 A M EDT Height - - Body Mass Index 29.42 01/11/2025 4:13 PM EDT documented in this encounter Functional Status * Are you deaf or do you have serious difficulty hearing? Answer Date of Assessment Author No 12/23/2024 2:40 PM EDT Arnav Campos RN * Are you blind or do you have serious difficulty seeing, even when wearing glasses? Answer Date of Assessment Author No 12/23/2024 2:40 PM EDT Arnav Campos RN * Do you have serious difficulty walking or climbing stairs? Answer Date of Assessment Author No 12/23/2024 2:40 PM EDT Arnav Campos RN * Do you have serious difficulty dressing or bathing? Answer Date of Assessment Author No 12/23/2024 2:40 PM EDT Arnav Campos RN * Because of a physical, mental, or emotional condition, do you have serious difficulty doing errandsalone such as visiting the doctor? Answer Date of Assessment Author No 12/23/2024 2:40 PM EDT Arnav Campos, RN documented as of this encounter Mental Status * Because of a physical, mental, or emotional condition, do you have serious difficulty concentrating, remembering, or making decisions? (5 years old or older) Answer Entry Date Author No 12/23/2024 2:40 PM EDT Arnav Campos RN documented in this encounter Progress Notes * Betsy Erazo RN - 01/27/2025 8:00 AM EDT Pt arrives with strong, steady gait for IVIG infusion. Assessment completed and medication list reviewed with patient. Pt followed by multiple providers for her health. Pt also reports she recently was admitted to [facility] after GI follow up there for constipation requiring multiple bowel preps She said once she had a good clean out She still had tenderness in lower abdomen and it is suspected per pt report she needs gallbladder out. Pt reports she is sometimes having low grade fevers- last one about 2 days ago that was 100.7 F. Denies any chills or other ill feelings. Not on any antibiotics for this. Pt notes she has 2 bruises that appear well healing on abdomen that are light yellow. Pt will follow up with ambulatory Surgeon referral. Pt otherwise eating well- noted eating breakfast and sipping on tea currently. Active listening provided and support offered. Portacath accessed and hydration started and pt refuses premeds as she took zyrtec and tylenol 1000mg at home before arrival. Requests no tegaderm- used sterile gauze and paper tape. Pt resting with refreshments and items within reach. Hydration infusing over 2 hours per order. 1019- IVIG started 0.5 ml/kg/hr to max of 3.25 ml/kg/hr today for max rate of 253ml/hr. Pt resting with items in reach. Pt enjoying snacks and water. 1130-Pt ambulated to BR to void. Steady gait observed. 1300 Pt tolerated infusions without incident. Left ambulatory with next apts in place. Observed strong steady gait upon discharge. documented in this encounter Plan of Treatment Upcoming Encounters Date Type Department Care Team (Late st Contact Info) Description 02/03/2025 9:00 AM EDT Appointment [facility] [address] [place] [phone] 02/17/2025 8:00 AM EDT Appointment [facility] [address] [place] [phone] 04/01/2025 10:30 AM EST Office Visit [facility] Hematology Oncology [address] [place] [address] Ulises Hancock MD [address] [place] [phone] documented as of this encounter Visit Diagnoses Diagnosis CVID (common variable immunodeficiency) ([facility] V24, [facility] V28)- Primary Common variable immunodeficiency documented in this encounter Administered Medications Inactive Administered Medications - up to 3 most recent administrations Medication Order MAR Action Action Date Dose Rate Site immune globulin (human) (GAMMAGARD) 10 % infusion 35 g 35 g, intravenous, Once, On Sun01/27/25 at 0845, For 1 dose, Gammagard brand 35 grams. Administer per institutional standards., Preferred Brand: GammaGard LiquidIndications:CVID (common variable immunodeficiency) ([facility] V24, [facility] V28) New Bag 01/27/2025 10:29 AM EDT 35 g sodium chloride 0.9 % bolus 1,000 mL 1,000 mL, intravenous, at 500 mL/hr, Administer over 2 Hours, Once, On Sun01/27/25 at 0845, For 1 doseIndications:CVID (common variable immunodeficiency) ([facility] V24, [facility] V28) New Bag 01/27/2025 8:29 AM EDT 1,000 mL 500 mL/hr documented in this encounter Discontinued Medications Medication Sig Discontinue Reason Start Date End Da te aspirin 81 mg chewable tablet Chew 1 tablet (81 mg total) 1 (one) time each day. TIA 01/27/2025 atorvastatin (LIPITOR) 10 mg tablet Take 4 tablets (40 mg total) by mouth at bedtime. 02/10/2021 01/27/2025 benztropine (COGENTIN) 1 mg tablet Take 1 tablet (1 mg total) by mouth. 01/27/2025 esomeprazole (NexIUM) [address] capsule Take 1 capsule (40 mg total) by mouth 1 (one) time each day. 11/05/2023 01/27/2025 famotidine (PEPCID) 20 mg tablet Take 1 tablet (20 mg total) by mouth. 03/25/2022 01/27/2025 hepatitis B immune globulin 220 unit/mL solution 05/11/2021 01/27/2025 HYDROmorphone (DILAUDID) 2 mg tablet 300 tablets (600 mg total) 3 (three) times a day. 01/25/2024 01/27/2025 insulin lispro (HumaLOG KwikPen) 100 unit/mL injection pen INJECT 15 MINUTES BEFORE MEAL 3 TIMES A DAY; IF GLUCOSE LEVELS 200-250: TAKE 2 UNITS; 251-300: TAKE 4 UNITS; 301-350: TAKE 6 UNITS; 351-400: 01/27/2025 meclizine (ANTIVERT) 25 mg tablet Take 1 tablet (25 mg total) by mouth 3 (three) times a day if needed. 12/08/2023 01/27/2025 metFORMIN (GLUMETZA) 1,000 mg 24 hr tablet Take 500 mg by mouth 1 (one) time each day with dinner. Do not crush, chew, or split. 01/27/2025 mupirocin (BACTROBAN) 2 % ointment APPLY TOPICALLY THREE TIMES A DAY DIRECTED FOR 5 DAYS 08/29/2024 01/27/2025 nortriptyline (PAMELOR) 10 mg capsule Take 1 capsule (10 mg total) by mouth. 01/28/2024 01/27/2025 Nurtec 75 mg dispersible tablet Take 1 tablet (75 mg total) by mouth. 08/05/2024 01/27/2025 Ozempic 0.25 mg or 0.5 mg (2 mg/3 mL) injection pen Inject 0.5 mg under the skin. 08/20/2024 01/27/2025 loperamide (IMODIUM) 2 mg capsule Take 1 capsule (2 mg total) by mouth. 01/03/2024 01/27/2025 Trulicity 1.5 mg/0.5 mL pen injector injection Inject 0.5 mL (1.5 mg total) under the skin. 04/25/2024 01/27/2025 documented as of this encounter Historical Medications * This list may reflect changes made after this encounter. magnesium citrate solution Take by mouth 1 (one) time. added in this encounter Orders Medications Ordered That Alex ht Not Have Been Administered Count Last Ordered Date First Ordered Date acetaminophen (TYLENOL) tablet 650 mg 1 loratadine (CLARITIN) tablet 10 mg 1 2024 Nursing Count Last Ordered Date First Orde red Date ONC NURSING COMMUNICATION 1 01/27/2025 TREATMENT CONDITIONS 1 01/27/2025 Appointment Requests Count Last Ordered Date Fi rst Ordered Date ONCBCN INFUSION APPOINTMENT REQUEST 08 documented in this encounter Care Teams Skein Winding Operator Relationship Specialty Start Date End Date Bernie Aquino, UNIVERSITY LECTURER [address] [facility] [address] PCP - General Family Medicine 10/05/21 documented as of this encounter
[2025-01-28 10:19] VITALS: BP 122/78; PULSE 90; O2SAT 98
--- NOTE | 2025-01-28 10:19 | HO.NEPHOV_ITS ---
Vital Signs 01/28/25 10:19 Height 5 ft 4 in BP 122/78 Blood Pressure Location Lt brachial Position Sitting Pulse 90 Pulse Source Pulse Oximeter Pulse Oximetry (%) 98 Oxygen Delivery Method Room Air Intake Visit Reasons: Medication Review-Conf Public Health Worker Required: No Accompanied by: Self / Same As Patient Allergies adhesive (ADHESIVE) Allergy (Intermediate, Verified 01/28/25 10:20) BLISTER fluticasone (From FLONASE) Allergy (Unknown, Verified 01/28/25 10:20) unknown meperidine (Demerol) Allergy (Unknown, Verified 01/28/25 10:20) vomit metoclopramide (From REGLAN) Allergy (Unknown, Verified 01/28/25 10:20) DIPLOPIA transparent dressing Allergy (Unknown, Verified 01/28/25 10:20) rash morphine (MORPHINE) Adverse Reaction (Severe, Verified 01/28/25 10:20) NAUSEA & VOMITING TEGADERM BANDAGE Allergy (Intermediate, Uncoded 10/18/24 10:27) RASH morphine Allergy (Unknown, Uncoded 10/18/24 10:27) vomit tape Allergy (Unknown, Uncoded 10/18/24 10:27) rash From DEMEROL Adverse Reaction (Severe, Uncoded 10/18/24 10:27) NAUSEA & VOMITING Medication List - Last Reconciled 01/28/25 by Neto Cunningham MD acetaminophen 500 mg PO Q6H PRN MDD 2000mg amiloride 5 mg PO DAILY canakinumab (PF) (Ilaris (PF)) 150 mg subcut Q4W cetirizine (Zyrtec) 10 mg PO BID colchicine 1.2 mg PO DAILY cyclobenzaprine 10 mg PO BEDTIME PRN dicyclomine 20 mg PO BID PRN docusate sodium 100 mg PO BID PRN gabapentin 600 mg PO BID galcanezumab-gnlm (Emgality Pen) 120 mg subcut QMONTH hydroxyzine HCl 50 mg PO BID immun glob T-xwg-eqmc-IgA 0-50 10 gram (Gammagard S-D (IgA < 1 mcg/mL)) 35 grams IV Q3W ipratropium-albuterol 20-100 mcg/actuation (Combivent Respimat) 1 puff inhalation QID PRN lamotrigine ER 200 mg PO BEDTIME levothyroxine 50 mcg PO DAILY@0600 linaclotide (Linzess) 290 mcg PO DAILY magnesium oxide 400 mg PO DAILY@1200 melatonin 10 mg PO BEDTIME PRN montelukast 1 tab PO BEDTIME multivitamin (Daily-Enid tablet) 1 tab PO DAILY norethindrone (contraceptive) (Incassia) 0.35 mg PO DAILY omalizumab (Xolair) 300 mg subcut QMONTH omeprazole 40 mg PO BID@0630,1630 ondansetron 4 mg PO Q6-8H PRN oxcarbazepine 900 mg (1.5 x 600 mg) PO BID oxycodone 5 mg PO BEDTIME PRN prednisone 20 - 40 mg PO DAILY PRN rizatriptan 10 mg PO BID PRN sitagliptin phosphate (Januvia) 50 mg PO DAILY topiramate 50 mg PO BID venlafaxine 100 mg PO DAILY HPI Comments Details: Meredith is a pleasant 48-year-old woman with a history of immunodeficiency and currently disease IV immunoglobulins. She has a history of bipolar disorder and has been on lithium for several years. 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 Serum creatinine has been stable around 1.0. Venango was discontinued. She is currently on Vraylar. She has developed symptoms of TD. The plan is to switch her back to lithium as per her psychiatrist. She underwent a partial thyroidectomy on 01/06/2022. History of papillary thyroid Ca She disease IV hemoglobin every 3 weeks for immunodeficiency. History of medullary calcinosis of the kidneys. She has been on topiramate for several years. 05/28/23 ; Recently admitted with Campylobacter Jejuni ; Had diarrhea ; Ca and K was low 24 hr urine showed a volume of 4600 ml !! 07/23/23; Amiloride was increased in May; UO has decreased ;She has cut back on soda ;Now she is back on Venango since May 2023 08/20/23 ; Recently she had 2 sinus infections treated with antibiotics without much improvement. She has an appointment with ENT in end of September. She has had some nausea and vomiting. P.o. intake has been suboptimal. Creatinine was 1.06 and BUN bumped up to 27 and she he is here for further evaluation. Baseline BUN is around 18 mg/dL. 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 Blood sugar spiked and ended up in ER. Cr up to 1.3 01/02/24; Recurrent ER visits for vomiting ;REceived IVF fluids and discharged 03/05/24;Was in ER few days ago;HAd diarrhea ;REceived IVF;Gets IVF at [facility] every 1-2 weeks 05/19/24;Feels dizzy 07/02/24 Fell while dealing with dog and sustained concussion Now under therapy- Speech/Lang/Cognition and ocular and vestibular PT Tries to keep up with fluid intake Cr is around 1.08 Not on Venango since Apr 2024 08/27/24 Says she feels better after she filed for divorce! 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 Recently had transient ischemic attacks (TIAs) and associated symptoms, notably severe headaches that could suggest migraine. A recent definite TIA occurred on September 30, with previous suspected episodes . The patient wishes to pursue further evaluation with an MRI, delayed by a recent pill camera test. Peripheral edema is noted in the extremities, likely aggravated by liver cirrhosis and medication adjustments for diabetes management, including a transition from Trulicity and Ozempic to Januvia, which has stabilized her A1c to 6 but has also caused gastroparesis. She has an upcoming liver MRI and ultrasound for cancer surveillance with potential changes in monitoring frequency. 01/28/25 The patient is a 49-year-old female with a history of immunodeficiency and currently disease IV immunoglobulin h/o Constipation and episode of MILD hypokalemia 3.4 . Episodes cause palpitations and ER visits; advised to supplement potassium. Asthma exacerbated recently, treated with prednisone, triggered by constipation and bloating. Diabetes insipidus managed with amiloride, effective in controlling urine output. Amiloride typically increases potassium, not decreases. Chronic constipation persists despite dietary changes and exercise, leading to hospital visits. Diabetes mellitus managed with diet and exercise; recent glucose elevation managed with insulin. Surgical History: - Double hip surgery - Cholecystectomy Medications: - Amiloride for diabetes insipidus - Prednisone for asthma exacerbation - Insulin for diabetes mellitus Social History: - Engages in daily exercise and has made dietary changes to manage health conditions. Diagnostic Results: - Potassium levels: 4.0, 3.7, 3.8, 3.4, 3.9 mmol/L [facility] Medical History Bipolar 1 disorder PTSD (post-traumatic stress disorder) Acute anxiety Depression History of recurrent pneumonia History of Pseudomonas pneumonia Bipolar disorder Menstrual migraine Allergic asthma Dyslipidemia Type 2 diabetes mellitus FMF (familial Mediterranean fever) Primary immunodeficiency disorder Surgical History History of endoscopy (~11/2023) History of ankle surgery History of umbilical hernia repair History of dilation and curettage History of arthroscopy History of oral surgery History of delivery Social History Household Members: Children Household Members Other:: dog Housing: House Do you presently have visiting nurse or other home services: No Alcohol intake: never Patient Tobacco Use Status: Never used Tobacco e-Cigarette/Vaping Use: Never Used Second Hand Smoke Exposure: No Advance Directives Date on File: 09/30/24 service: No Sexual orientation: Straight/Heterosexual Physical Exam Vital Signs: Last Vital Signs Pulse 90 01/28/25 10:19 BP 122/78 01/28/25 10:19 Pulse Ox 98 01/28/25 10:19 Oxygen Delivery Method Room Air 01/28/25 10:19 Comfortable Neck supple no JVD. Lungs entry equal no rales. Heart S1-S2 heard no gallop or rub. Abdomen soft nontender. Neuro alert awake oriented. No asterixis. Extremities no edema. Results Reviewed Nephrology Results: Hgb, (12.0-16.0) 13.0 g/dl 10/25/24 WBC, (4.8-10.8) 5.4 X10*3/uL 10/25/24 Plt Count, (160-400) 248 X10*3/uL 10/25/24 Sodium, (135-145) 144 mmol/L 10/25/24 Potassium, (3.3-5.1) 4.0 mmol/L 10/25/24 Chloride, (96-108) 115 mmol/L H 10/25/24 Carbon Dioxide, (22-29) 21 mmol/L L 10/25/24 BUN, (9-16) 11 mg/dL 10/25/24 Creatinine, (0.5-1.4) 0.76 mg/dL 10/25/24 Calcium, (8.4-10.2) 9.3 mg/dL 10/25/24 Renal US 01/11/24 Assessment & Plan Assessment & Plan (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 The polyuria is under control while she is on amiloride. Renal function has been stable as well. She is clearly at risk for ongoing in renal injury from lithium however it seems like this might be the only option to treat her bipolar illness. 24 hour urine collection showed a volume of 4600 and urine osmolarity of 220 risks and benefits of going back on lithium was explained and she is back on Venango since May 2023 Watch renal function and UO while on Venango She should continue with the low-sodium diet as well. Keep AMiloride at 10 mg QD Stay on low salt diet Given the h/o renal stones , would not add Calcium tabs Shall follow levels The bump in BUN is most likely due to poor p.o. intake. Hemoglobin has increased from 13.3 up to 14.1 most likely due to hemoconcentration I have encouraged her to increase fluid intake. Serum creatinine stable at 1.06. Clinically volume status appears stable. She will require a 24 urine collection to quantify urine output and based on this we can adjust the p.o. fluid intake. 12/11/23 SACHI due to hypoperfusion in a setting of hyperglycemia REcheck labs today ; Increase PO fluids ; Optimize blood sugar and follow up with PCP 01/02/24 Renal function is stable ; Keep on weekly IV fluids ; HAs polyuria - she is on Venango 450 mg BID Currently on Amiloride;Stay on low Sodium diet ;IF polyuria presists, may need to lower or stop Venango 05/19/24; Advised to go to ER due to dizziness; Needs IVF Q weekly ;next dose on 06/04/24 07/02/24 From a renal stand point, she is doing better Creatinine is stable Not on Venango any more Encouraged to stay on low salt diet and keep up with PO hydration Keep Amiloride No changes were made today 08/27/24 Cr is down to 0.86 Recheck 24 hr urine for volume and consider lowering Amiloride 10/22/24 Renal fx is stable BP acceptable. Keep AMiloride at 5 mg QD - can take 10 mg PRN based on edema 01/28/25 Renal function stable Serum creatinine 0.75 mg/dL. History of diabetes insipidus. Well-controlled with the amiloride. I will continue with current dose of amiloride. History of palpitations. I do not believe hypokalemia is contributing to this. The serum potassium is in the normal range she had 1 episode of potassium in the range of 3.4. I would continue with the amiloride since it is a potassium-sparing diuretic and should not cause hypokalemia. History of hypomagnesemia. Can increase magnesium oxide to 400 mg b.i.d.. Encouraged her to increase potassium rich foods like oranges or bananas/watermelon. No absolute indication for potassium serum supplementation. Orders: Orders Basic Metabolic Panel 4 Months Neto Cunningham MD N18.9 - Chronic kidney disease, unspecified Medications: Changed From magnesium oxide Take once daily at noon starting on 04/17/24 400 mg PO DAILY@1200 To magnesium oxide Take once daily at noon starting on 04/17/24 400 mg PO BID 180 tabs 1RF Neto Cunningham MD From amiloride 10 mg (2 x 5 mg) PO DAILY 60 tabs 5RF To amiloride 5 mg PO DAILY Reji Ramos MD Coding Level of Care Code Est Pt Level 4 (32181) Diagnoses Nephrogenic diabetes insipidus N25.1 CKD (chronic kidney disease) N18.9
--- OUTSIDE RECORDS SUMMARY | 2025-01-28 12:23 | XMS_ITS | Encounter Summary ---
Author Organization [facility] Address [address] [place] [address] Care Team Providers Care Publications Editor Name Role Phone Miles, Bernie Primary Care Provider [phone] Encounter Details Date Type Department Care Team (Late Contact Info) Description 11/21/2021 Telephone [facility] Patient Access Center [address] [place] [phone] Telephone Intake, Staff Social History Tobacco Use [...] to book it. Please call patient at [phone]. documented in this encounter Plan of Treatment Upcoming Encounters Date Type Department Care Team (Late Contact Info) Description 02/10/2025 11:30 AM EDT Office Visit [facility] [address] [place] [phone] Congressional Aide: Adrienne Gutiérrez MD [address] [place] [address] [phone] documented as of this encounter Visit Diagnoses Not on filedocumented in this encounter Care Teams Publications Editor Relationship Specialty Start Date End Date Bernie Aquino [address] [place] [phone] PCP - General 08/22/21 documented as of this encounter
--- OUTSIDE RECORDS SUMMARY | 2025-01-28 12:23 | XMS_ITS | Encounter Summary ---
Author Organization [facility] Address [address] [place] [address] Care Team Providers Care Associate Manager Affiliate Marketing Name Role Phone Bernie Aquino Primary Care Provider [phone] Encounter Details Date Type Department Care Team (Late st Contact Info) Description 04/05/2020 Documentation [facility] ACC Building [address] [place] [address] Rafaela Pedro CPhT Social History Tobacco Use [...] Description 02/10/2025 11:30 AM EDT Office Visit [facility] [address] [place] [address] Brazer Crawler Torch: Adrienne Gutiérrez MD [address] [place] [phone] documented as of this encounter Visit Diagnoses Not on filedocumented in this encounter Care Teams Associate Manager Affiliate Marketing Relationship Specialty Start Date End Date Bernie Aquino [address] [place] [phone] PCP - General 08/22/21 documented as of this encounter
--- OUTSIDE RECORDS SUMMARY | 2025-01-28 12:23 | XMS_ITS | Encounter Summary ---
Author Organization [facility] Address [address] [place] [address] Care Team Providers Care Outreach Liaison Name Role Phone Miles, Bernie Primary Care Provider [phone] Reason for Visit * Reason Onset Date Comments Reschedule 10/18/2021 Encounter Details Date Type Department Care Team ([facility] Contact Info) Description 10/18/2021 Telephone [facility] Central Scheduling Department [address] [place] [address] Telephone Intake, Staff Reschedule Social History Tobacco [...] pls follow up with pt to coordinate [phone] documented in this encounter Plan of Treatment Upcoming Encounters Date Type Department Care Team ([facility] st Contact Info) Description 02/10/2025 11:30 AM EDT Office Visit [facility] [address] [place] [phone] Backrest Assembler: Adrienne Gutiérrez MD [address] [place] [phone] documented as of this encounter Visit Diagnoses Not on filedocumented in this encounter Care Teams Outreach Liaison Relationship Specialty Start Date End Date Bernie Aquino [address] [place] [phone] PCP - General 08/22/21 documented as of this encounter
--- OUTSIDE RECORDS SUMMARY | 2025-01-28 12:23 | XMS_ITS | Encounter Summary ---
Author Organization [facility] Address [address] [place] [address] Phone Care Team Providers Care Educational Adviser Name Role Phone Unavailable Primary Care Provider Unavailabl e Encounter Details Date Type Department Care Team (Late st Contact Info) Description 07/05/2022 Telephone [facility] [address] [place] [address] Julee Stephens [place] Social History [...] you to know the [facility]. documented in this encounter Plan of Treatment Not on file documented as of this encounter Visit Diagnoses Not on filedocumented in this encounter
--- OUTSIDE RECORDS SUMMARY | 2025-01-28 12:23 | XMS_ITS | Encounter Summary ---
Author Organization [facility] Address [address] [place] [address] Care Team Providers Care Counter Tender Name Role Phone Bernie Aquino Primary Care Provider [phone] Encounter Details Date Type Department Care Team (Late Contact Info) Description 09/05/2024 Floqq Message [facility] Financial Clearance Department [address] [place] [address] [employer], Generic Provider [address] [place] [id number] Prescritption [place] Social History Tobacco Use Types [...] Office Visit [facility] [address] [place] [phone] Electronic Warfare Operator: Adrienne Gutiérrez MD [address] [place] [phone] documented as of this encounter Visit Diagnoses Not on filedocumented in this encounter Care Teams Counter Tender Relationship Specialty Start Date End Date eBrnie Aquino [address] [place] [phone] PCP - General 08/22/21 documented as of this encounter
--- OUTSIDE RECORDS SUMMARY | 2025-01-28 12:23 | XMS_ITS | Encounter Summary ---
Author Organization [facility] Address [address] [place] [address] Care Team Providers Care Lathe Winder Name Role Phone Bernie Aquino Primary Care Provider [phone] Reason for Visit * Reason Onset Date Comments migraines 03/29/2021 Encounter Details Date Type Department Care Team (Late st Contact Info) Description 03/29/2021 Telephone [facility] Central Scheduling Department [address] [place] [phone] Telephone Intake, Staff migraines Social History Tobacco [...] Description 02/10/2025 11:30 AM EDT Office Visit [facility] [address] [place] [phone] Social Services Specialist: Adrienne Gutiérrez MD [address] [place] [phone] documented as of this encounter Visit Diagnoses Not on filedocumented in this encounter Care Teams Lathe Winder Relationship Specialty Start Date End Date Bernie Aquino [address] [place] [phone] PCP - General 08/22/21 documented as of this encounter
--- OUTSIDE RECORDS SUMMARY | 2025-01-28 12:23 | XMS_ITS | Clinical Summary ---
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 Max Daily Amount: 20 mg 15 tablet Active cyclobenzaprine (FLEXERIL) 10 mg tablet Take 1 tablet (10 mg total) by mouth 2 (two) times a day if needed for muscle spasms for up to 10 days. 20 tablet Active aMILoride (MIDAMOR) 5 mg tablet Take 2 tablets (10 mg total) by mouth 1 (one) time each day. Active cetirizine (ZyrTEC) 10 mg tablet Take 1 tablet (10 mg total) by mouth 1 (one) time each day. Active gabapentin (NEURONTIN) 300 mg capsule Take 2 capsules (600 mg total) by mouth 3 (three) times a day. Active hydrOXYzine HCL (ATARAX) 25 mg tablet Take 1 tablet (25 mg total) by mouth 2 (two) times a day. Active topiramate (TOPAMAX) 50 mg tablet Take 1 tablet (50 mg total) by mouth 2 (two) times a day. Active montelukast (SINGULAIR) 10 mg tablet Take 1 tablet (10 mg total) by mouth at bedtime. Active OXcarbazepine (TRILEPTAL) 300 mg tablet Take 3 tablets (900 mg total) by mouth 2 (two) times a day. Active norethindrone (CITLALY,KATHY,HEA THER,MICRONOR) 0.35 mg tablet Take 1 tablet (0.35 mg total) by mouth 1 (one) time each day. Active venlafaxine (EFFEXOR) 75 mg tablet [...] if needed for mild pain. 30 g 024 2024 Active hydrOXYzine pamoate (VISTARIL) 50 mg capsule Take 1 capsule (50 mg total) by mouth. 016 Active melatonin 10 mg tablet Take 1 tablet (10 mg total) by mouth. with dinner Active Xolair 300 mg/2 mL syringe 025 Active predniSONE (DELTASONE) 20 mg tablet See Instructions, 1-2 tablet By Mouth Daily, PRN, 0 Refills, Maintenance, 04/25/24 10:42:00 AM EST, Partial fill upon patient request if the prescription is for a schedule II opioid drug. Active rizatriptan (MAXALT) 10 mg tablet TAKE [...] mL (0.3 mg total) into the thigh. 013 Active fluticasone-umecl idinium-vilantero l (Trelegy Ellipta) 100-62.5-25 mcg inhaler Inhale 1 puff (100 mcg total) by mouth. 022 Active Emgality Pen 120 mg/mL injection pen INJECT 1ML UNDER THE SKIN EVERY 28 DAYS Active insulin aspart (NovoLOG Flexpen U-100 Insulin) 100 unit/mL (3 mL) injection pen 019 Active Combivent Respimat 20-100 mcg/actuation inhaler INHALE 1 PUFF UP TO FOUR TIMES A DAY IF NEEDED Active lamoTRIgine (LaMICtal) 25 mg tablet Take 2 tablets (50 mg total) by mouth 1 (one) time each day in the morning. 01/03/2 025 Active lamoTRIgine (LaMICtal XR) 200 mg tablet extended release 24hr 24 hr tablet Take 1 tablet (200 mg total) by mouth. at bedtime Active levothyroxine (SYNTHROID, LEVOTHROID) 50 mcg tablet TAKE ONE TABLET BY MOUTH EVERY DAY SUNDAY TO SUNDAY AND 1.5 TABLETS ON SUNDAY Active levoFLOXacin (LEVAQUIN) 500 mg tablet Take 1 tablet (500 mg total) by mouth 1 (one) time each day. for 7 days Active butalbital-acetam inophen-caffeine (FIORICET, ESGIC) 50-325-40 mg per tablet Take 1 tablet by mouth every 4 (four) hours if needed for headaches. Active dicyclomine (BENTYL) 10 mg capsuleIndication s:Tenesmus Take 1 capsule (10 mg total) by mouth 3 (three) times a day. 270 each 3 025 2025 Active acetaminophen (TYLENOL) 500 mg tablet Take 2 tablets (1,000 mg total) by mouth every 6 hours as needed. Active benzonatate (TESSALON) 200 mg capsule Active budesonide (PULMICORT) 0.5 mg/2 mL nebulizer solution Take 2 mL (0.5 mg total) by nebulization 1 (one) time each day. Active levonorgestreL (Mirena) 21 mcg/24hr (up to 8 yrs) 52 mg IUD 1 Device (1 each total). Active canakinumab, PF, (ILARIS) 150 mg/mL injection Inject 1 mL (150 mg total) under the skin. Active Januvia 50 mg tablet Take 1 tablet (50 mg total) by mouth 1 (one) time each day. Active omeprazole (PriLOSEC) [address] capsuleIndication s:Gastroesophagea l reflux disease without esophagitis Take 1 capsule (40 mg total) by mouth 2 (two) times a day. 180 each 3 025 2025 Active linaCLOtide (Linzess) 72 mcg capsuleIndication s:Chronic idiopathic constipation Take 1 capsule (72 mcg total) by mouth 1 (one) time each day. 90 each 3 06/2025 Active senna (SENOKOT) 8.6 mg tablet Take 2 tablets (17.2 mg total) by mouth 2 (two) times a day. Active polyethylene glycol (MIRALAX) 17 gram packet Take 17 g by mouth 1 (one) time each day. Active magnesium citrate solution Take by mouth 1 (one) time. Active atorvastatin (LIPITOR) 10 mg tablet Take 4 tablets (40 mg total) by mouth at bedtime. 2024 Discontinued benztropine (COGENTIN) 1 mg tablet Take 1 tablet (1 mg total) by mouth. 2024 Discontinued Trulicity 1.5 mg/0.5 mL pen injector injection Inject 0.5 mL (1.5 mg total) under the skin. 2024 Discontinued famotidine (PEPCID) 20 mg tablet Take 1 tablet (20 mg total) by mouth. 2024 Discontinued metFORMIN (GLUMETZA) 1,000 mg 24 hr tablet Take 500 mg by mouth 1 (one) time each day with dinner. Do not crush, chew, or split. 2024 Discontinued HYDROmorphone (DILAUDID) 2 mg tablet 300 tablets (600 mg total) 3 (three) times a day. 2024 Discontinued loperamide (IMODIUM) 2 mg capsule Take 1 capsule (2 mg total) by mouth. 2024 Discontinued hepatitis B immune globulin 220 unit/mL solution 2024 Discontinued Ozempic 0.25 mg or 0.5 mg (2 mg/3 mL) injection pen Inject 0.5 mg under the skin. 2024 Discontinued esomeprazole (NexIUM) [address] capsule Take 1 capsule (40 mg total) by mouth 1 (one) time each day. 2024 Discontinued insulin lispro (HumaLOG KwikPen) 100 unit/mL injection pen INJECT 15 MINUTES BEFORE MEAL 3 TIMES A DAY; IF GLUCOSE LEVELS 200-250: TAKE 2 UNITS; 251-300: TAKE 4 UNITS; 301-350: TAKE 6 UNITS; 351-400: 2024 Discontinued meclizine (ANTIVERT) 25 mg tablet Take 1 tablet (25 mg total) by mouth 3 (three) times a day if needed. 2024 Discontinued mupirocin (BACTROBAN) 2 % ointment APPLY TOPICALLY THREE TIMES A DAY DIRECTED FOR 5 DAYS 2024 Discontinued nortriptyline (PAMELOR) 10 mg capsule Take 1 capsule (10 mg total) by mouth. 024 2024 Discontinued Nurtec 75 mg dispersible tablet Take 1 tablet (75 mg total) by mouth. 2024 Discontinued aspirin 81 mg chewable tablet Chew 1 tablet (81 mg total) 1 (one) time each day. TIA 2024 Discontinued polyethylene glycol (GoLYTELY) 236-22.74-6.74 -5.86 gram solution Take 4,000 mL by mouth 1 (one) time for 1 dose. 4000 mL 025 2024 Discontinued polyethylene glycol (GoLYTELY) 236-22.74-6.74 -5.86 gram solution Take 4,000 mL by mouth 1 (one) time for 1 dose. 4000 mL 025 2024 Active Problems Problem Noted Date Diagnosed Date Iron deficiency anemia secon sheila to inadequate dietary iron intake 12/04/2024 Kidney stones 09/09/2024 Bilateral hand numbness 09/09/2024 Gastroesophageal reflux disease 09/09/2024 Hepatic steatosis 09/09/2024 Left carpal tunnel syndrome 09/09/2024 Osteoarthritis of hip 09/09/2024 Papillary carcinoma of thyroid ([facility] V24, [facility] V28) 09/09/2024 Spondylosis of lumbosacral region 09/09/2024 Tear of acetabular labrum 09/09/2024 Class 1 obesity 08/18/2024 Dyshidrotic eczema 08/18/2024 Type 2 diabetes mellitus wit hout complication ([facility] V24, [facility] V28) 06/27/2024 Asthma 06/27/2024 Hypothyroidism 06/27/2024 Chronic renal impairment, st age 3 (moderate) ([facility] V24, CMS/HCC V28) 06/27/2024 Concussion without loss of consciousness [...] and question of PSC Assessment & Plan (10/31/2024 5:37 PM EDT): Status post liver biopsy: Question acute large duct obstruction pattern/ascending cholangitis Unremarkable abdominal MRI Normalizing and almost in range (116) Has follow-up with lawn mower sharpener (Dr. Patel) at [facility] in November. Repeat MRI of the liver at the end of this month FibroScan in November and follow-up with the specialist Assessment & Plan (09/10/2024 5:39 PM EDT): Trending down No clear etiology Patient following up with lawn mower sharpener at [facility] in November Assessment & Plan (07/11/2024 12:17 PM EST): Second opinion for liver bx [facility] 08/18/24 Repeat lfts today, alk phos has been trending down (157 06/13/24) Assessment & Plan (06/13/2024 5:01 PM EST): Orders: Hepatic function panel; Future Cyclic vomiting syndrome 03/17/2024 CVID (common variable immuno deficiency) (CMS/HCC V24, [facility] V28) 03/10/2024 Chronic cough 10/01/2023 Hyperimmunoglobulin e (ige) syndrome ([facility] V2 4) 10/01/2023 Moderate persistent asthma 10/01/2023 Perennial allergic rhinitis 10/01/2023 Polyp of nasal cavity 10/01/2023 Tardive dyskinesia 04/20/2023 Chronic migraine without aur a without status migrainosus, not intractable 11/03/2022 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 ([facility] V24) Disorder of patellofemoral joint 02/03/2022 Familial Mediterranean fever ([facility] V24, [facility] V28) 02/03/2022 Hay fever 02/03/2022 Hyperparathyroidism ([facility] V24) 02/03/2022 Irritable bowel syndrome 02/03/2022 Non-toxic nodular goiter 02/03/2022 Acute renal failure ([facility] V24) 12/20/2021 Nephrocalcinosis 12/07/2021 Abnormal auditory perception 10/12/2021 Overview (09/09/2024): Other abnormal auditory perceptions, left ear; Note: Date Diagnosed: 10/12/2021 11:06 AM (H93.292) Trigeminal neuralgia 06/07/2021 Bipolar I disorder ([facility] V24, [facility] V28) Chronic sinusitis 04/26/2021 Overview (09/09/2024): Sinusitis (chronic) NOS; Note: Date Diagnosed: 04/26/2021 2:03 PM (J32.9) Sensorineural hearing loss 01/20/2021 Overview (09/09/2024): Sensorineural hearing loss, unilateral, left ear, with unrestricted hearing on the contralateral side; Note: Date Diagnosed: 01/20/2021 1:26 PM (H90.42) Immunologic deficiency syndrome ([facility] V24) Overview (09/09/2024): Immunodeficiency, unspecified; Note: Changed from D84 to D84.9 (11/22/2020 11:21 AM) , Date Diagnosed: 05/26/2019 1:39 PM (D84) Posterior rhinorrhea 05/26/2019 Overview (09/09/2024): Postnasal drip; Note: Date Diagnosed: 05/26/2019 2:03 PM (R09.82) Tremor 01/30/2019 Overview (09/09/2024): Medication related (lithium, neuroleptics) Memory impairment 03/25/2015 Intractable migraine with aura without status mi grainosus 12/01/2013 Meniere's disease 12/01/2013 Congenital hypogammaglobulinemia ([facility] V24, [facility] V28) 03/30/2011 Candidal vulvovaginitis 11/15/2010 Obstructive sleep apnea syndrome 11/15/2010 Encounters Date Type Department Care Team Description 01/27/2025 7:57 AM EDT Hospital Encounter [facility] [address] [place] [phone] Deandre Schroeder MD CVID (common variable immunodeficiency) ([facility] V24, [facility] V28) (Primary Dx) 01/11/2025 1:06 PM EDT - 01/11/2025 5:41 PM EDT Emergency [facility] [address] [place] [phone] Candelario Gamble MD Mild intermittent asthma, unspecified whether complicated (Primary Dx); Constipation, unspecified constipation type Discharge Disposition: Home or Self Care 01/06/2025 8:00 AM EDT - 01/06/2025 11:59 PM EDT Hospital Encounter [facility] [address] [place] [phone] Deandre Schroeder MD CVID (common variable immunodeficiency) ([facility] V24, [facility] V28) (Primary Dx) Discharge Disposition: Home or Self Care 12/23/2024 2:33 PM EDT - 12/23/2024 8:21 PM EDT Emergency [facility] [address] [place] [phone] Spencer Montanez MD SOB (shortness of breath) (Primary Dx); Palpitation Discharge Disposition: Home or Self Care 12/23/2024 8:45 AM EDT - 12/23/2024 11:59 PM EDT Hospital Encounter [facility] [address] [place] [phone] Deandre Schroeder MD Moderate persistent asthma, unspecified whether complicated (Primary Dx) Discharge Disposition: Home or Self Care 12/16/2024 8:00 AM EDT - 12/16/2024 11:59 PM EDT Hospital Encounter [facility] [address] [place] [phone] Deandre Schroeder MD CVID (common variable immunodeficiency) ([facility] V24, [facility] V28) (Primary Dx) Discharge Disposition: Home or Self Care 12/04/2024 2:00 PM EDT Office Visit [facility] [address] [place] [phone] Ulises Hancock MD CVID (common variable immunodeficiency) ([facility] V24, [facility] V28) (Primary Dx); Iron deficiency; Iron deficiency anemia secondary to inadequate dietary iron intake 11/25/2024 8:00 AM EDT - 11/25/2024 11:59 PM EDT Hospital Encounter [facility] [address] [place] [phone] Deandre Schroeder MD CVID (common variable immunodeficiency) ([facility] [place]24, [facility] V28) (Primary Dx) Discharge Disposition: Home or Self Care 11/13/2024 Telephone Gastroenterology - [address] [phone] Manda Seals MD 10/31/2024 1:50 PM EDT Office Visit Gastroenterology - [address] [phone] Leif Burciaga PA Nausea (Primary Dx); RUQ pain; Elevated alkaline phosphatase level; Iron deficiency anemia due to chronic blood loss [D50.0]; Metabolic dysfunction-associat ed fatty liver disease (MAFLD); Chronic idiopathic constipation from Last 3 Months Immunizations Name Administration [...] nephrogenic (CMS/HCC V24) CVID (common variable immunodeficiency) ([facility] V24, [facility] V28) Hypothyroid Asthma Hypoparathyroidism ([facility] V24) Familial Mediterranean fever ([facility] V24, [facility] V28) Chronic kidney disease CVS disease Bipolar 1 disorder ([facility] V24, [facility] V28) Migraines WALTERS (nonalcoholic steatohepatitis) Social History [...] F) 01/27/2025 8:10 AM EDT Respiratory Rate 15 01/11/2025 4:13 PM EDT Oxygen Saturation 100% 01/27/2025 8:10 AM EDT Inhaled Oxygen Concentration - - Weight 77.7 kg (171 lb 6.4 oz) 01/27/2025 8:10 A M EDT Height 162.6 cm (5' 4 ) 01/11/2025 4:13 PM EDT Body Mass Index 29.42 01/11/2025 4:13 PM EDT Plan of Treatment Upcoming Encounters Date Type Department Care Team (Late st Contact Info) Description 02/03/2025 9:00 AM EDT Appointment [facility] [address] [place] [phone] 02/17/2025 8:00 AM EDT Appointment [address] [phone] 04/01/2025 10:30 AM EST Office Visit [facility] [address] [place] [phone] Ulises Hancock MD [address] [place] [phone] Health Maintenance Due Date Last Done Comments [...] 05/13/2014, 12/19/2009 Cholesterol Screening (Lipid Panel) 07/22/2021 HIV Screening 07/22/2021 Medicare Annual Wellness Visit 07/22/2021 Social Influencers of Health Screening 07/22/2021 Diabetes: Annual Urine Albumin-Creatinine Ratio (uACR) 03/15/2024 Depression Screening 05/14/2024 Influenza Vaccine (#1) 2025 9, 02/13/2018, 02/08/2017, Additional history exists Diabetes: Blood Sugar Control Test (HGBA1C) 05/27/2025 11/24/2024, 11/16/2024, 08/18/2024 Diabetes: Annual GFR (Glomerular Filtration Rate) 01/24/2026 01/24/2025, 01/23/2025, 01/22/2025, Additional history exists DTaP,Tdap,and Td Vaccines (5 [...] this topic Medical Devices Implanted Type Area Line Installer Device Identifier Shelf Expiration Date Model / Serial / Lot Sponge Surgifoam Gel 12 X 7mm - [id number] Implanted:Qty: 1 on 04/09/2024 by Daniele Reeder MD at [facility] Hemostasis N/A: Abdomen [facility] [employer] [id number] 1971 / / Procedures Procedure Name Priority Date/Time Associated Diagnosis Comments CT ABDOMEN PELVIS WO CONTRAST STAT 01/11/2025 3:46 PM EDT CBC WITH AUTO DIFFERENTIAL STAT 01/11/2025 2:30 PM EDT B-TYPE NATRIURETIC PEPTIDE STAT 01/11/2025 2:30 PM EDT TROPONIN I HIGH SENSITIVITY STAT 01/11/2025 2:30 PM EDT ACTIVATED PARTIAL THROMBOPLASTIN TIME STAT 01/11/2025 2:30 PM EDT PROTHROMBIN TIME WITH INR STAT 01/11/2025 2:30 PM EDT CBC AND DIFFERENTIAL STAT 01/11/2025 2:30 PM EDT COMPREHENSIVE METABOLIC PANEL STAT 01/11/2025 2:30 PM EDT ECG ANNOTATED 12/24/2024 CT ANGIO CHEST WO AND/OR W CONTRAST STAT 12/23/2024 4:50 PM EDT SOB (shortness of breath) US ABDOMEN LIMITED STAT 12/23/2024 4: 11 PM EDT MCHUGH URINE CULTURE TUBE STAT 12/23/2024 3:48 PM EDT URINALYSIS WITH REFLEX MICROSCOPIC AND CULTURE STAT 12/23/2024 3:48 PM EDT URINALYSIS WITH REFLEX MICROSCOPIC AND CULTURE STAT 12/23/2024 3:48 PM EDT CULTURE URINE STAT 12/23/2024 3:48 PM EDT [id number], RSV, FLU A AND B QUALITATIVE RT-PCR, INTERNAL LAB STAT 12/23/2024 3:39 PM EDT D-DIMER STAT 12/23/2024 3:35 PM EDT XR CHEST 2 VIEWS STAT 12/23/2024 2:50 PM EDT TROPONIN I HIGH SENSITIVITY Timed 12/23/2024 12:07 PM EDT ECG 12-LEAD STAT 12/23/2024 12:03 PM EDT THYROID STIMULATING HORMONE WITH REFLEX TO FREE T4 AND FREE T3 STAT Add-on 12/23/2024 10:55 AM EDT HCG, SERUM, QUALITATIVE STAT Add-on 12/23/2024 10:55 AM EDT CBC WITH AUTO DIFFERENTIAL STAT 12/23/2024 10:55 AM EDT B-TYPE NATRIURETIC PEPTIDE STAT 12/23/2024 10:55 AM EDT MAGNESIUM STAT 12/23/2024 10:55 AM EDT LIPASE STAT 12/23/2024 10:55 AM EDT COMPREHENSIVE METABOLIC PANEL STAT 12/23/2024 10:55 AM EDT CBC AND DIFFERENTIAL STAT 12/23/2024 10:55 AM EDT TROPONIN I HIGH SENSITIVITY Timed 12/23/2024 10:55 AM EDT ECG 12-LEAD STAT 12/23/2024 10:47 AM EDT COLONOSCOPY Routine 06/27/2024 8:07 AM EST Anemia Elevated fecal calprotectin from Last 3 Months or Most Recently Relevant to Health Maintenance Results * CT Abdomen Pelvis wo Contrast (01/11/2025 3:46 PM EDT) Anatomical Region Laterality Modality Body Computed Tomogra phy 01/11/2025 4:04 PM EDT Impressions 01/11/2025 4:14 PM EDT Large amount of fecal residue throughout the colon. No evidence of small bowel obstruction. Multiple bilateral renal calcifications likely related to medullary sponge kidney with no evidence of obstruction -------- FINAL REPORT -------- Dictated By: Terrence Yañez Dictated Date: 01/11/2025 16:04 ET Assigned Physician: Terrence Yañez Reviewed and Electronically Signed By: Terrence Yañez Signed Date: 01/11/2025 16:14 ET Workstation ID: [id number] Transcribed By: Self Edit Transcribed Date: 01/11/2025 16:04 ET Narrative 01/11/2025 4:14 PM EDT EXAMINATION: CT ABDOMEN/PELVIS WITHOUT IV CONTRAST CLINICAL INFORMATION: Bowel obstruction suspected. COMPARISON: Portions of previous 07/13/24 TECHNIQUE: Multidetector CT. Helical examination of the abdomen and pelvis. Imaging performed without IV contrast. Reformatting in the coronal and sagittal planes. DLP: 1007 mGy-cm Dose optimization was performed including the use of low-dose iterative reconstruction technique with automatic exposure control based on patient size. Type of contrast: None Volume of IV contrast: None Volume of contrast discarded: 0 mL FINDINGS: LIVER: The right lobe of the liver measures 21.4 cm. This is between 2 and 3 standard deviations above the mean expected. The liver contour is smooth. There is no suspicious focal liver lesion. BILIARY TRACT: The gallbladder is contracted. No biliary dilation. SPLEEN: The spleen measures 12.6 cm. No suspicious abnormality. PANCREAS: No suspicious abnormality. ADRENAL GLANDS: No suspicious abnormality. KIDNEYS: There are in numerable calcifications in each kidney distributed along the expected region of the medullary pyramids. There are some small cysts present. There is no significant dilation of the collecting system. Possibilities include medullary sponge kidney. URINARY BLADDER: The bladder is moderately distended. No suspicious abnormality. PELVIC VISCERA: No suspicious abnormality. IUD no longer demonstrated. GASTROINTESTINAL TRACT: Large amount of fecal residue throughout the colon. The stomach is distended with contrast and ingested material. There is some contrast present within nondilated small bowel. ABDOMINAL WALL: Evidence of previous abdominal wall repair. LYMPHOVASCULAR STRUCTURES AND FLUID: There is no abdominal aortic aneurysm. There are no measurably enlarged lymph nodes. There is no significant free intraperitoneal fluid. VISUALIZED LOWER CHEST: No suspicious abnormality. MUSCULOSKELETAL: No acute or suspicious osseous abnormality. Procedure Note Terrence Yañez MD - 01/11/2025 EXAMINATION: CT ABDOMEN/PELVIS WITHOUT IV CONTRAST CLINICAL INFORMATION: Bowel obstruction suspected. COMPARISON: Portions of previous 07/13/24 TECHNIQUE: Multidetector CT. Helical examination of the abdomen and pelvis. Imaging performed without IV contrast. Reformatting in the coronal and sagittal planes. DLP: 1007 mGy-cm Dose optimization was performed including the use of low-dose iterativereconstruction technique with automatic exposure control based on patientsize. Type of contrast: None Volume of IV contrast: None Volume of contrast discarded: 0 mL FINDINGS: LIVER: The right lobe of the liver measures 21.4 cm. This is between 2 and3 standard deviations above the mean expected. The liver contour issmooth. There is no suspicious focal liver lesion. BILIARY TRACT: The gallbladder is contracted. No biliary dilation. SPLEEN: The spleen measures 12.6 cm. No suspicious abnormality. PANCREAS: No suspicious abnormality. ADRENAL GLANDS: No suspicious abnormality. KIDNEYS: There are in numerable calcifications in each kidney distributedalong the expected region of the medullary pyramids. There are some smallcysts present. There is no significant dilation of the collecting system.Possibilities include medullary sponge kidney. URINARY BLADDER: The bladder is moderately distended. No suspiciousabnormality. PELVIC VISCERA: No suspicious abnormality. IUD no longer demonstrated. GASTROINTESTINAL TRACT: Large amount of fecal residue throughout thecolon. The stomach is distended with contrast and ingested material. Thereis some contrast present within nondilated small bowel. ABDOMINAL WALL: Evidence of previous abdominal wall repair. LYMPHOVASCULAR STRUCTURES AND FLUID: There is no abdominal aorticaneurysm. There are no measurably enlarged lymph nodes. There is nosignificant free intraperitoneal fluid. VISUALIZED LOWER CHEST: No suspicious abnormality. MUSCULOSKELETAL: No acute or suspicious osseous abnormality. IMPRESSION: Large amount of fecal residue throughout the colon. No evidence of smallbowel obstruction. Multiple bilateral renal calcifications likely related to medullary spongekidney with no evidence of obstruction -------- FINAL REPORT -------- Dictated By: Terrence Yañez Dictated Date: 01/11/2025 16:04 ET Assigned Physician: Terrence Yañez Reviewed and Electronically Signed By: Terrence Yañez Signed Date: 01/11/2025 16:14 ET Workstation ID: [id number] Transcribed By: Self Edit Transcribed Date: 01/11/2025 16:04 ET Candelario Gamble MD IM CT PROCEDURES Final Result * Troponin I High Sensitivity (01/11/2025 2:30 PM EDT) Only the most recent of3 resultswithin the time period is included. High Sensitivity Troponin I 9 <=54 ng/L LAB CHEMISTRY METHOD 01/11/2025 3:28 PM EDT [facility] Blood Venous blood specimen / Unknown Venipuncture / Unknown 01/11/2025 2:30 PM EDT 01/11/2025 2:49 PM EDT Narrative [facility] - 01/11/2025 3:28 PM EDT High levels of biotin in samples may falsely decrease hsTroponin values. Use caution when interpreting hsTroponin results in patients taking biotin who exhibit renal impairment (eGFR <60) or in patients taking more than 20 mg/day of biotin. us Candelario Gamble MD LAB BLOOD ORDERABLES Final Res ult [facility] [address] [place] [address], [place] [phone] * (ABNORMAL) CBC auto differential (01/11/2025 2:30 PM EDT) Only the most recent of2 resultswithin the time period is included. [facility] WBC 5.4 4.8 - 10.8 K/mcL LAB HEMETOLOGY METHOD 01/11/2025 2:54 PM EDT [facility] RBC 5.30(H) 3.80 - 4.80 M/mcL LAB HEMETOLOGY METHOD 01/11/2025 2:54 PM EDT [facility] Hemoglobin 14.7 11.5 - 16.0 g/dL LAB HEMETOLOGY METHOD 01/11/2025 2:54 PM EDT [facility] Hematocrit 45.2 35.0 - 47.0 % LAB HEMETOLOGY METHOD 01/11/2025 2:54 PM EDT [facility] MCV 84.8 79.0 - 98.0 FL LAB HEMETOLOGY METHOD 01/11/2025 2:54 PM EDT [facility] MCH 27.6 27.0 - 32.0 pcg LAB HEMETOLOGY METHOD 01/11/2025 2:54 PM EDT [facility] MCHC 32.5 32.0 - 37.0 g/dL LAB HEMETOLOGY METHOD 01/11/2025 2:54 PM EDT [facility] RDW 20.6(H) 11.0 - 15.0 % LAB HEMETOLOGY METHOD 01/11/2025 2:54 PM EDT [facility] Platelets 187 130 - 400 K/mcL LAB HEMETOLOGY METHOD 01/11/2025 2:54 PM EDT [facility] MPV 10.4 7.0 - 11.0 FL LAB HEMETOLOGY METHOD 01/11/2025 2:54 PM EDT [facility] NRBC 0.0 <1.0 % LAB HEMETOLOGY METHOD 01/11/2025 2:54 PM EDT [facility] NRBC Absolute 0.00 <0.10 K/mcL LAB HEMETOLOGY METHOD 01/11/2025 2:54 PM EDT [facility] Neutrophils Relative 62.2 % LAB HEMETOLOGY METHOD 01/11/2025 2:54 PM EDT [facility] Lymphocytes Relative 26.1 % [facility] Monocytes Relative 9.7 % [facility]EMETOLOGY [facility] Eosinophils Relative 0.7 % LAB HEMETOLOGY METHOD [facility]2025 2[facility] Basophils Relative 0.9 % LAB HEMETOLOGY METHOD 01/11/2025 2:54 PM [facility] Immature Granulocytes Relative 0.4 % LAB [facility]EMETOLOGY [facility]2025 2[facility] Neutrophils Absolute 3.33 1.50 - 7.00 K/mcL LAB HEMETOLOGY METHOD 01/11/2025 2:54 PM EDT [facility] Lymphocytes Absolute 1.40 1.00 - 5.00 K/mcL LAB HEMETOLOGY METHOD 01/11/2025 2:54 PM EDT [facility] Monocytes Absolute 0.52 0.20 - 1.00 K/mcL LAB HEMETOLOGY METHOD [facility]/11[facility]2025 2[facility] Eosinophils Absolute 0.04 0.00 - 0.50 K/mcL LAB HEMETOLOGY METHOD 01/11/2025 2:54 PM EDT [facility] Basophils Absolute 0.05 0.00 - 0.20 /[facility] LAB HEMETOLOGY METHOD 01/11/2025 2:54 PM EDT [facility] Immature Granulocytes Absolute 0.02 0.00 - 0.03 [facility] LAB HEMETOLOGY METHOD 01/11/2025 2:54 PM EDT [facility] Blood Venous blood specimen / Unknown Venipuncture / Unknown 01/11/2025 2:30 PM EDT 01/11/2025 2:49 PM EDT us Candelario Gamble MD LAB BLOOD ORDERABLES Final Res ult Performing Organization Address [facility]/ZIP Co de Phone Number [facility] [address] [place] [address], [place] [phone] * APTT (01/11/2025 2:30 PM EDT) aPTT 29.4 24.1 - 39.3 sec LAB COAGULATION METHOD 01/11/2025 3:02 PM EDT [facility] Blood Venous blood specimen / Unknown Venipuncture / Unknown 01/11/2025 2:30 PM EDT 01/11/2025 2:49 PM EDT Candelario Gamble MD LAB BLOOD ORDERABLES Final Res ult [facility] [address] [place] [address], [place] [phone] * Protime-INR (01/11/2025 2:30 PM EDT) Protime 11.0 10.6 - 13.9 sec LAB COAGULATION METHOD 01/11/2025 3:02 PM EDT [facility] INR 0.9 LAB COAGULATION METHOD 01/11/2025 3:02 PM EDT [facility] Blood Venous blood specimen / Unknown Venipuncture / Unknown 01/11/2025 2:30 PM EDT 01/11/2025 2:49 PM EDT us Candelario Gamble MD LAB BLOOD ORDERABLES Final Res ult Performing Organization Address [facility]/ZIP Co de Phone Number [facility] [address] [place] [address], [place] [phone] * B-Type Natriuretic Peptide (BNP) (01/11/2025 2:30 PM EDT) Only the most recent of2 resultswithin the time period is included. [facility] BNP <2 <=100 pcg/mL LAB CHEMISTRY METHOD 01/11/2025 4:14 PM EDT [facility] Blood Venous blood specimen / Unknown Venipuncture / Unknown 01/11/2025 2:30 PM EDT 01/11/2025 2:49 PM EDT us Candelario Gamble MD LAB BLOOD ORDERABLES Final Res ult Performing Organization Address [facility] de Phone Number [facility] [address] [place] [address], [place] [phone] * (ABNORMAL) Comprehensive Metabolic Panel (CMP) (01/11/2025 2:30 PM EDT) Only the most recent of2 resultswithin the time period is included. [facility] Sodium 138 133 - 145 mmol/L LAB CHEMISTRY METHOD 01/11/2025 3:16 PM EDT [facility] Potassium 4.3 3.5 - 5.5 mmol/L LAB CHEMISTRY METHOD 01/11/2025 3:16 PM EDT [facility] Comment:Hemolysis present Chloride 113(H) 96 - 110 mmol/L LAB CHEMISTRY METHOD [facility]2025 3[facility] CO2 21 21 - 32 mmol/L LAB CHEMISTRY METHOD 01/11/2025 3:16 PM [facility] Anion Gap 4 3 - 11 LAB CHEMISTRY METHOD 01/11/2025 3:16 PM [facility] Glucose 147(H) 70 - 100 mg/dL LAB CHEMISTRY METHOD 01/11/2025 3:16 PM [facility] BUN 28(H) 5 - 25 mg/dL LAB CHEMISTRY METHOD 01/11/2025 3:16 PM [facility] Creatinine 0.78 0.50 - 1.10 mg/dL LAB CHEMISTRY METHOD 01/11/2025 3:16 PM [facility] eGFR 93 >=60 mL/min/1. 73m2 LAB CHEMISTRY METHOD 01/11/2025 3:16 PM [facility] Comment:Calculation based on the Chronic Kidney Disease Epidemiology Collaboration (CKD-EPI) equation refit without adjustment for race. BUN/Creatinine Ratio 35.9 LAB CHEMISTRY METHOD 01/11/2025 3:16 PM [facility] Calcium 8.6 8.5 - 10.5 mg/dL LAB CHEMISTRY METHOD 01/11/2025 3:16 PM [facility] AST (SGOT) 46(H) 10 - 42 unit/L LAB CHEMISTRY METHOD 01/11/2025 3:16 PM [facility] Comment:Hemolysis present ALT (SGPT) 56 10 - 60 unit/L LAB CHEMISTRY METHOD 01/11/2025 3:16 PM [facility] Alkaline Phosphatase 111 42 - 121 unit/L LAB CHEMISTRY METHOD 01/11/2025 3:16 PM [facility] Total Protein 7.2 6.0 - 8.0 g/dL LAB CHEMISTRY METHOD 01/11/2025 3:16 PM [facility] Albumin 3.7 3.2 - 5.0 g/dL LAB CHEMISTRY METHOD 01/11/2025 3:16 PM EDT [facility] Total Bilirubin 0.2 0.0 - 1.4 mg/dL LAB CHEMISTRY METHOD 01/11/2025 3:16 PM EDT [facility] Blood Venous blood specimen / Unknown Venipuncture / Unknown 01/11/2025 2:30 PM EDT 01/11/2025 2:49 PM EDT Candelario Gamble MD LAB BLOOD ORDERABLES Final Res ult [facility] [address] [place] [address], [place] [phone] * ECG-Annotated (12/24/2024) us Provider Onbase MD ECG ORDERABLES Final Result * CT Angio Chest wo and/or w Contrast (12/23/2024 4:50 PM EDT) Anatomical Region Laterality Modality Body Computed Tomogra phy 12/23/2024 4:56 PM EDT Impressions 12/23/2024 5:00 PM EDT Impression: No evidence of pulmonary thromboembolism is seen. Telerad ROMY ([id number]) -------- FINAL REPORT -------- Dictated By: Frannie Eng Dictated Date: 12/23/2024 16:56 ET Assigned Physician: Frannie Eng Reviewed and Electronically Signed By: Frannie Eng Signed Date: 12/23/2024 17:00 ET Workstation ID: [id number] Transcribed By: Self Edit Transcribed Date: 12/23/2024 16:56 ET Narrative 12/23/2024 5:00 PM EDT History: Dyspnea. PE suspected, high clinical probability. Comparison: 05/04/24 TECHNIQUE: Helical volumetric imaging of the thorax was performed in the axial plane during the rapid, uneventful intravenous administration of 90 mL Isovue-370, using the CT angiography protocol tailored for evaluation of the pulmonary arteries. Coronal and sagittal images were reformatted from the original data set and maximum intensity pixel images were reviewed, in multiple planes, on an independent CT workstation. DLP: 531.73 mGy/cm GE Lightspeed VCT Iterative reconstruction technique Findings: The pulmonary arterial tree is well-opacified to the subsegmental level bilaterally. No intraluminal filling defects are seen to suggest pulmonary thromboembolism. No developing pattern of right heart strain is seen. The thoracic aorta is normal in caliber. No pleural or pericardial effusions are seen. There is no developing thoracic lymphadenopathy. A Port-A-Cath is seen on the right, the tip within the SVC. The lung volumes are very low and hypoventilatory opacity is seen bilaterally. No airspace consolidations are identified. No suspicious pulmonary nodule is seen. The trachea and central bronchial tree are patent. A small portion of the upper abdomen included on the lowest images through the thorax is remarkable for medullary nephrocalcinosis, partially imaged, also noted previously. The spleen is top normal in size, and 13 cm in length. The regional skeleton is intact. Procedure Note Frannie Eng MD - 12/23/2024 History: Dyspnea. PE suspected, high clinical probability. Comparison: 05/04/24 TECHNIQUE: Helical volumetric imaging of the thorax was performed in theaxial plane during the rapid, uneventful intravenous administration of 90mL Isovue-370, using the CT angiography protocol tailored for evaluationof the pulmonary arteries. Coronal and sagittal images were reformattedfrom the original data set and maximum intensity pixel images werereviewed, in multiple planes, on an independent CT workstation. DLP: 531.73 mGy/cm GE PrePlaypeed VCT Iterative reconstruction technique Findings: The pulmonary arterial tree is well-opacified to the subsegmental levelbilaterally. No intraluminal filling defects are seen to suggest pulmonarythromboembolism. No developing pattern of right heart strain is seen. Thethoracic aorta is normal in caliber. No pleural or pericardial effusions are seen. There is no developingthoracic lymphadenopathy. A Port-A-Cath is seen on the right, the tipwithin the SVC. The lung volumes are very low and hypoventilatory opacity is seenbilaterally. No airspace consolidations are identified. No suspiciouspulmonary nodule is seen. The trachea and central bronchial tree arepatent. A small portion of the upper abdomen included on the lowest images throughthe thorax is remarkable for medullary nephrocalcinosis, partially imaged,also noted previously. The spleen is top normal in size, and 13 cm inlength. The regional skeleton is intact. IMPRESSION: Impression: No evidence of pulmonary thromboembolism is seen. Telerad PA ([id number]) -------- FINAL REPORT -------- Dictated By: Frannie Eng Dictated Date: 12/23/2024 16:56 ET Assigned Physician: Frannie Eng Reviewed and Electronically Signed By: Frannie Eng Signed Date: 12/23/2024 17:00 ET Workstation ID: [id number] Transcribed By: Self Edit Transcribed Date: 12/23/2024 16:56 ET us Spencer Montanez MD IMG CT PROCEDURES Final Res ult * US Abdomen Limited (12/23/2024 4:11 PM EDT) Anatomical Region Laterality Modality Body Ultrasound 12/23/2024 4:16 PM EDT Impressions 12/23/2024 4:18 PM EDT Impression: 1. No hepatic masses. 2. Patent, hepatopedal portal vein. 3. No evidence of cholelithiasis or biliary obstruction. Telerad PA ([id number]) -------- FINAL REPORT -------- Dictated By: Frannie Eng Dictated Date: 12/23/2024 16:16 ET Assigned Physician: Frannie Eng Reviewed and Electronically Signed By: Frannie Eng Signed Date: 12/23/2024 16:18 ET Workstation ID: [id number] Transcribed By: Self Edit Transcribed Date: 12/23/2024 16:16 ET Narrative 12/23/2024 4:18 PM EDT History: Elevated liver function tests. Comparison: Right upper quadrant ultrasound 03/03/24, CT abdomen/pelvis 07/13/24 Findings: Real-time imaging of the abdomen, limited to the right upper quadrant, was performed. There is mild coarsening of the hepatic echotexture. The echogenicity is normal, decreased from the 2023 exam. No hepatic masses are seen. The portal vein is patent and exhibits normal, hepatopedal flow. The gallbladder is physiologically distended and without evidence of calculus or wall thickening. The common duct measures 5.7 mm in diameter, within the range of normal. No ascites is seen in the right upper quadrant. A survey view of the right kidney is remarkable for too numerous to count small nonobstructing calculi, consistent with the findings of medullary nephrocalcinosis on the CT. No hydronephrosis is identified. The pancreas is unremarkable. Procedure Note Frannie Eng MD - 12/23/2024 History: Elevated liver function tests. Comparison: Right upper quadrant ultrasound 03/03/24, CT abdomen/pelvis07/13/24 Findings: Real-time imaging of the abdomen, limited to the right upper quadrant, wasperformed. There is mild coarsening of the hepatic echotexture. The echogenicity isnormal, decreased from the 2023 exam. No hepatic masses are seen. Theportal vein is patent and exhibits normal, hepatopedal flow. The gallbladder is physiologically distended and without evidence ofcalculus or wall thickening. The common duct measures 5.7 mm in diameter,within the range of normal. No ascites is seen in the right upper quadrant. A survey view of the rightkidney is remarkable for too numerous to count small nonobstructingcalculi, consistent with the findings of medullary nephrocalcinosis on theCT. No hydronephrosis is identified. The pancreas is unremarkable. IMPRESSION: Impression: 1. No hepatic masses. 2. Patent, hepatopedal portal vein. 3. No evidence of cholelithiasis or biliary obstruction. Sumavisoscarlee STANTON ([id number]) -------- FINAL REPORT -------- Dictated By: Frannie Eng Dictated Date: 12/23/2024 16:16 ET Assigned Physician: Frannie Eng Reviewed and Electronically Signed By: Frannie Eng Signed Date: 12/23/2024 16:18 ET Workstation ID: [id number] Transcribed By: Self Edit Transcribed Date: 12/23/2024 16:16 ET us Spencer Montanez MD IMG US PROCEDURES Final Res ult * (ABNORMAL) Urinalysis with reflex microscopic and culture (12/23/2024 3:48 PM EDT) Specific [place] Urine 1.009 1.003 - 1.030 LAB URINALYSIS - AUTOMATED METHOD 12/23/2024 4:21 PM [facility] pH, Urine 6.0 5.0 - 8.0 pH LAB URINALYSIS - AUTOMATED METHOD 12/23/2024 4:21 PM [facility] Leukocytes, Urine Trace(A) Negative LAB URINALYSIS - AUTOMATED METHOD 12/23/2024 4:21 PM [facility] Nitrite, Urine Negative Negative LAB URINALYSIS - AUTOMATED METHOD 12/23/2024 4:21 PM [facility] Protein, Urine Negative <=Trace mg/dL LAB URINALYSIS - AUTOMATED METHOD 12/23/2024 4:21 PM [facility] Glucose, Urine Negative Negative mg/dL LAB URINALYSIS - AUTOMATED METHOD 12/23/2024 4:21 PM [facility] Ketones, Urine Negative Negative mg/dL LAB URINALYSIS - AUTOMATED METHOD 12/23/2024 4:21 PM [facility] Urobilinogen, Urine 0.2 0.2 - 1.0 mg/dL LAB URINALYSIS - AUTOMATED METHOD 12/23/2024 4:21 PM [facility] Bilirubin, Urine Negative Negative LAB URINALYSIS - AUTOMATED METHOD 12/23/2024 4:21 PM [facility] Blood, Urine Negative Negative LAB URINALYSIS - AUTOMATED METHOD 12/23/2024 4:21 PM [facility] RBC, Urine 1.0 0 - 4 /HPF LAB URINALYSIS - AUTOMATED METHOD 12/23/2024 4:21 PM [facility] WBC, Urine 4.4(H) 0 - 4 /HPF LAB URINALYSIS - AUTOMATED METHOD 12/23/2024 4:21 PM EDT [facility] Squamous Epithelial, Urine 25 0 - 60 /LPF LAB URINALYSIS - AUTOMATED METHOD 12/23/2024 4:21 PM EDT [facility] Bacteria, Urine Few(A) Negative /HPF LAB URINALYSIS - AUTOMATED METHOD 12/23/2024 4:21 PM EDT [facility] Hyaline Casts, Urine 0.4 0 - 3 /LPF LAB URINALYSIS - AUTOMATED METHOD 12/23/2024 4:21 PM EDT [facility] Urine Urine specimen obtained by clean catch procedure / Unknown Non-blood Collection / Unknown 12/23/2024 3:48 PM EDT 12/23/2024 4:05 PM EDT us Spencer Montanez MD LAB URINE ORDERABLES Final Result Performing Organization Address City/[facility]/ZIP Co de Phone Number [facility] [address] [place] [address], [place] [phone] * Mchugh urine culture tube (12/23/2024 3:48 PM EDT) Pathologist [facility] Extra Tube Hold for add-ons. 12/23/2024 6:01 PM EDT [facility] Comment:Auto resulted. Urine Urine specimen obtained by clean catch procedure / Unknown Non-blood Collection / Unknown 12/23/2024 3:48 PM EDT 12/23/2024 4:05 PM EDT us Spencer Montanez MD LAB URINE ORDERABLES Final Result [facility] [address] [place] [address], [place] [phone] * Culture urine (12/23/2024 3:48 PM EDT) Culture, Urine <10,000 cfu/ml, insignificant count, no further workup. 12/24/2024 11:26 AM EDT [facility] Urine Urine specimen obtained by clean catch procedure / Unknown Non-blood Collection / Unknown 12/23/2024 3:48 PM EDT 12/23/2024 4:21 PM EDT Spencer Montanez MD LAB MICROBIOLOGY - GENERAL ORDERABLES Final Result [facility] [address] [place] [address], * [id number], RSV, Influenza A and B qualitative RT-PCR (12/23/2024 3:39 PM EDT) Influenza A PCR Not Detected Not Detected LAB MICROBIOLOGY METHOD 12/23/2024 4:39 PM EDT [facility] Influenza B PCR Not Detected Not Detected LAB MICROBIOLOGY METHOD 12/23/2024 4:39 PM EDT [facility] RSV PCR Not Detected Not Detected LAB MICROBIOLOGY METHOD 12/23/2024 4:39 PM EDT [facility] SARS COV-2 Not Detected Not Detected LAB MICROBIOLOGY METHOD 12/23/2024 4:39 PM EDT [facility] Swab Both anterior nares / Unknown Non-blood Collection / Unknown 12/23/2024 3:39 PM EDT 12/23/2024 3:50 PM EDT Narrative [facility] - 12/23/2024 4:39 PM EDT Disclaimer: Testing was performed using the Siemens GeneXpert Xpress SARS-CoV-2 _Flu_RSV PLUS PCR assay. The manner in which this information is used to guide patient care is the responsibility of the healthcare provider. Results should be correlated with the clinical history, epidemiological data, and other data available to the clinician evaluating the patient. Negative results do not preclude infection. This test has been authorized by the FDA under an Emergency Use Authorization (EUA). This test is only authorized for the duration of time the declaration that circumstances exist justifying the authorization of the emergency use of in vitro diagnostic tests for detection of SARS-CoV-2 virus and/or diagnosis of COVID-19 infection under section 564 (b) (1) of the Act, 21 U.S.C 360bbb-3 (b) (1), unless the authorization is terminated or revoked sooner. Reference Range: Not Detected Fact sheet for Healthcare providers can be found at https://www.fda.gov/media/922538/download. Fact sheet for Healthcare patients can be found at https://www.fda.gov/media/092286/download. Spencer Montanez MD LAB MICROBIOLOGY - GENERAL ORDERABLES Final Result Performing Organization Address [facility] Co de Phone Number [facility] [address] [place] [address], * D-dimer, quantitative (12/23/2024 3:35 PM EDT) D-Dimer, Quant (D-DU) <150 <=230 ng/mL DDU LAB COAGULATION METHOD 12/23/2024 4:23 PM EDT [facility] Blood Venous blood specimen / Unknown Venipuncture / Unknown 12/23/2024 3:35 PM EDT 12/23/2024 3:50 PM EDT Narrative [facility] - 12/23/2024 4:23 PM EDT D-Dimer <230 ng/mL (D-Dimer units) is the threshold for exclusion of DVT/PE. D-Dimer may be elevated in: Critically ill, severely infected, trauma patients, DIC, acute CVA, acute RI, unstable angina, AF, old age, , and smoking. D-Dimer may be decreased with: Initiation of heparin therapy and oral anticoagulants. Spencer Montanez MD LAB BLOOD ORDERABLES Final Result Performing Organization Address [facility]/ZIP Co de Phone Number [facility] [address] [place] [address], [place] [phone] * XR Chest 2 Views (12/23/2024 2:50 PM EDT) Anatomical Region Laterality Modality Body Radiographic Viki ging 12/23/2024 2:52 PM EDT Impressions 12/23/2024 2:53 PM EDT Impression: Stable radiographic appearance of the chest. No active pulmonary process identified. Telerad PA ([id number]) -------- FINAL REPORT -------- Dictated By: Frannie Eng Dictated Date: 12/23/2024 14:52 ET Assigned Physician: Frannie Eng Reviewed and Electronically Signed By: Frannie Eng Signed Date: 12/23/2024 14:53 ET Workstation ID: [id number] Transcribed By: Self Edit Transcribed Date: 12/23/2024 14:52 ET Narrative 12/23/2024 2:53 PM EDT History: Chest pain. Palpitations. Comparison: 05/20/24 Findings: PA and lateral views. The cardiac silhouette remains normal in size. Hilar and mediastinal contours are stable and the pulmonary vascularity is within normal limits. A Port-A-Cath is again seen on the right, the tip projecting at the level of the distal SVC, unchanged. The lungs are clear. The costophrenic angles are sharp. Surgical clips are seen at the base of the neck. The regional skeleton is intact. Procedure Note Frannie Eng MD - 12/23/2024 History: Chest pain. Palpitations. Comparison: 05/20/24 Findings: PA and lateral views. The cardiac silhouette remains normal in size. Hilarand mediastinal contours are stable and the pulmonary vascularity iswithin normal limits. A Port-A-Cath is again seen on the right, the tipprojecting at the level of the distal SVC, unchanged. The lungs are clear. The costophrenic angles are sharp. Surgical clips areseen at the base of the neck. The regional skeleton is intact. IMPRESSION: Impression: Stable radiographic appearance of the chest. No active pulmonary processidentified. Telerad PA ([id number]) -------- FINAL REPORT -------- Dictated By: Frannie Eng Dictated Date: 12/23/2024 14:52 ET Assigned Physician: Frannie Eng Reviewed and Electronically Signed By: Frannie Eng Signed Date: 12/23/2024 14:53 ET Workstation ID: [id number] Transcribed By: Self Edit Transcribed Date: 12/23/2024 14:52 ET Spencer Montanez MD IMG XR PROCEDURES Final Res ult * ECG 12 lead (12/23/2024 12:03 PM EDT) Only the most recent of2 resultswithin the time period is included. Ventricular Rate ECG 81 BPM GEMUSE Atrial Rate 81 BPM GEMUSE P-R Interval 174 ms GEMUSE QRS Duration 100 ms GEMUSE Q-T Interval 398 ms GEMUSE QTc 462 ms GEMUSE P Wave [place] 36 degrees GEMUSE R [place] 26 degrees GEMUSE T [place] 47 degrees GEMUSE ECG Interpretation Normal sinus rhythm When compared with ECG of 23-DEC-2024 10:47, (unconfirmed) No significant change was found Confirmed by MARSHA BEY ([id number]) on 12/23/2024 11:50:44 PM GEMUSE 12/23/2024 12:0 3 PM EDT 12/23/2024 11:50 PM EDT Spencer Montanez MD ECG ORDERABLES Final Resul t GEMUSE * Thyroid stimulating hormone with reflex to free t4 and free t3 (TSH Reflex) (12/23/2024 10:55 AM EDT) TSH 0.98 0.40 - 4.00 mcIU/mL LAB CHEMISTRY METHOD 12/23/2024 4:46 PM EDT [facility] Blood Venous blood specimen / Unknown Venipuncture / Unknown 12/23/2024 10:55 AM EDT 12/23/2024 11:47 AM EDT us Spencer Montanez MD LAB BLOOD ORDERABLES Final Result Performing Organization Address [facility] Co de Phone Number [facility] [address] [place] [address], [place] [phone] * hCG, serum, qualitative (12/23/2024 10:55 AM EDT) [facility] hCG Qual Negative Negative 12/23/2024 4:02 PM EDT [facility] Blood Venous blood specimen / Unknown Venipuncture / Unknown 12/23/2024 10:55 AM EDT 12/23/2024 11:47 AM EDT us Spencer Montanez MD LAB BLOOD ORDERABLES Final Result Performing Organization Address [facility] Phone Number [facility] [address] [place] [address], [place] [phone] * Magnesium (12/23/2024 10:55 AM EDT) [facility] Magnesium 1.9 1.9 - 2.6 mg/dL LAB CHEMISTRY METHOD 12/23/2024 12:37 PM EDT [facility] Blood Venous blood specimen / Unknown Venipuncture / Unknown 12/23/2024 10:55 AM EDT 12/23/2024 11:47 AM EDT us Spencer Montanez MD LAB BLOOD ORDERABLES Final Result Performing Organization Address [facility] Co de Phone Number [facility] [address] [place] [address], [place] [phone] * (ABNORMAL) Lipase (12/23/2024 10:55 AM EDT) [facility] Lipase 77(H) 13 - 75 unit/L LAB CHEMISTRY METHOD 12/23/2024 12:37 PM EDT [facility] Blood Venous blood specimen / Unknown Venipuncture / Unknown 12/23/2024 10:55 AM EDT 12/23/2024 11:47 AM EDT Spencer Montanez MD LAB BLOOD ORDERABLES Final Result [facility] [address] [place] [address], * COLONOSCOPY Anesthesia - MAC; [facility] ENDOSCOPY (06/27/2024 8:07 AM EST) Anatomical Region Laterality Modality Endoscopy 06/27/2024 7:44 AM EST Impressions 06/27/2024 8:09 AM EST - The examined portion of the ileum was normal. - Normal mucosa in the entire examined colon. Biopsied. - Internal hemorrhoids. Recommendation: - Await pathology results. - Repeat colonoscopy in 10 years for screening purposes. Narrative 06/27/2024 8:09 AM EST [facility] Patient Name: Meredith Garcia Procedure Date: [...] scope was passed under direct vision. Throughout the procedure, the patient's blood pressure, pulse, and oxygen saturations were monitored continuously.The Olympus Pediatric Colonoscope was introduced through the anus and advanced to the terminal ileum. The colonoscopy was performed without difficulty. The patient tolerated the procedure well. The quality of the bowel preparation was good. Findings: The perianal and digital rectal examinations were normal. The terminal ileum appeared normal. Normal mucosa was found in the entire colon. Biopsies were taken with a cold forceps for histology. Internal hemorrhoids were found during retroflexion. The hemorrhoids were Grade I (internal hemorrhoids that do not prolapse). Procedure Code(s): --- Professional --- 02072, Colonoscopy, flexible; with biopsy, single or multiple Diagnosis Code(s): --- Professional --- R19.7, Diarrhea, unspecified CPT copyright 2020 [employer] [employer]. All rights reserved. The codes documented in this report are preliminary and upon doors prefitter review may be revised to meet current compliance requirements. Manda Seals MD 06/27/2024 8:09:30 AM This report has been signed electronically.Manda Seals MD Number of Addenda: 0 Note Initiated On: 06/27/2024 7:44 AM Scope In: Scope Out: Endoscopy Department at [facility] - [address] [place] [phone] Procedure Note Manda Seals MD - 06/27/2024 [facility] Patient Name: Meredith Garcia Procedure Date: [...] not prolapse). Procedure Code(s): --- Professional --- 82212, Colonoscopy, flexible; with biopsy, singleor multiple Diagnosis Code(s): --- Professional --- R19.7, Diarrhea, unspecified CPT copyright 2020 [employer] [place] [employer]. All rights reserved. The codes documented in this report are preliminary and upon doors prefitter reviewmay be revised to meet current compliance requirements. Manda Seals MD 06/27/2024 8:09:30 AM This report has been signed electronically.Manda Seals MD Number of Addenda: 0 Note Initiated On: 06/27/2024 7:44 AM Scope In: Scope Out: Endoscopy Department at [facility] - [address] [place] [phone] IMPRESSION: - The examined portion of the [...] Documents on File Type Date Recorded Patient Transfer Car Operator Expl anation Health Care Decision (hx) 06/10/2018 [...] DIRECTIVE Health Care Decision (hx) 06/10/2018 AD BLODEN DIRECTIVE Health Care Decision (hx) 06/10/2018 AD [...] (hx) 06/10/2018 AD BOLDEN DIRECTIVE Care Teams Shank Maker Relationship Specialty Start Date End Date Berine Aquino NP [address] [facility] [place] [address] PCP - General Family Medicine 10/05/21
--- OUTSIDE RECORDS SUMMARY | 2025-01-28 12:23 | XMS_ITS | Clinical Summary ---
Author Organization [facility] Address [address] [place] [address] Care Team Providers Care Log Roper Name Role Phone Bernie Aquino STEAM PRESS OPERATOR Primary Care Provider [phone] Allergies Active Allergy Reactions Criticality Noted Date [...] age to complete this topic Care Teams Log Roper Relationship Specialty Start Date End Date Bernie Aquino NP [address] [facility] [place] [address] PCP - General Family Medicine 10/05/21
--- OUTSIDE RECORDS SUMMARY | 2025-01-28 12:23 | XMS_ITS | Clinical Summary ---
Author Organization [facility] Address [address] [place] [address] Phone Care Team Providers Care Director Of Enterprise Architecture Name Role Phone Bernie Aquino NP Primary Care Provider [phone] Lisandro Bhat MD Unavailable [phone] Allergies Active Allergy Reactions Criticality Noted [...] Type Department Care Team Description 11/27/2024 Telephone [facility] [address] [place] [address] Grisel Black MA 11/26/2024 2:30 PM EDT Office Visit [facility] Neurology [address] [facility], [address] [place] [phone] Tray Russo MD, PhD Intractable migraine with status migrainosus, unspecified migraine type (Primary Dx) 11/26/2024 Ancillary Orders [facility] [address] [place] [address] Tray Russo MD, PhD 11/26/2024 Ancillary Orders [facility] [address] [place] [address] Tray Russo MD, PhD 11/24/2024 Ancillary Orders [facility] [address] [place] [address] Caitlyn Brady MD 11/24/2024 Ancillary Orders [facility] [address] [place] [address] Unknown, MD Caitlyn from Last 3 Months Social History Tobacco [...] FOBT 10/27/2020 SIGMOIDOSCOPY 10/27/2020 VIRTUAL COLONOSCOPY 10/27/2020 INFLUENZA VACCINE (#1) 2024 COVID-19 VACCINE ( - 2023-2 5 season) 2025 Adult Td,Tdap Booster 09/20/2027 09/19/2017 , 12/08/2007 [...] this topic Medical Devices Not on file Insurance MEDICARE PART A & B [facility] MEDICARE PART A & B MEDICARE PART A & B MEDICARE PART A & B MEDICARE PART A & B [facility]IC[facility] [place] [place] Care Teams Director Of Enterprise Architecture Relationship Specialty Start Date End Date Bernie Aquino NP [address] [place] [address] PCP - General Family Medicine 05/09/22 Lisandro Bhat MD [address] [place] [address] 05/09/22 Additional Source Comments The information contained in this document represents components of the legal health record. It is not the complete legal health record.[facility]
--- OUTSIDE RECORDS SUMMARY | 2025-01-28 12:23 | XMS_ITS | Clinical Summary ---
Author Organization [facility] Address [address] [place] [address] Care Team Providers Care Dietetic Tech Name Role Phone Bernie Aquino Primary Care Provider [phone] Allergies Active Allergy Reactions Criticality Noted Date [...] directed as needed for anaphylaxis. 3 Active ipratropium-alb uteroL (COMBIVENT RESPIMAT) 20-100 mcg/actuation inhaler Combivent Respimat [...] omeprazole (PriLOSEC) 40 mg capsule 2 Active benzonatate (TESSALON) 200 mg capsule 2 Active fluticasone-ume clidinium-vilan terol (Trelegy Ellipta) 100-62.5-25 mcg blister with device 2 Active melatonin 5 mg capsule Take 10 mg by mouth at bed time. 2 Active ondansetron (ZOFRAN) 4 mg tablet 1 Active OXcarbazepine (TRILEPTAL) 300 mg tablet 450 mg 2 times a day. 2 Active hydrOXYzine HCL (ATARAX) 10 mg tablet Take 30 mg by mouth at bed time. Active aMILoride (MIDAMOR) 5 mg tablet Take 5 mg by mouth once a day. Active metFORMIN (GLUCOPHAGE) 500 mg tablet metformin 500 mg tablet TAKE TWO TABLETS BY MOUTH TWICE A DAY 2 Active levothyroxine (SYNTHROID, LEVOTHROID) 25 mcg tablet Take 25 mcg by mouth once a day. 3 Active topiramate (TOPAMAX) 50 mg tabletIndicatio ns:Chronic migraine without aura without status migrainosus, not intractable TAKE ONE TABLET BY MOUTH EVERY MORNING AND 4 TABLETS AT NIGHT 150 tablet 6 3 Active Additional Information Patient taking differently: 50 mg oral 2 times daily, (No instructions reported), Reported on 08/05/2024 lamoTRIgine (LaMICtal) 25 mg tablet Take 50 mg by mouth once a day. Active immun glob G,IgG,/gly/IgA ov50 (GAMMAGARD LIQUID INJECTION) Inject 30 g as directed every 21 days. Active gabapentin (NEURONTIN) 600 mg tablet Take 600 mg by mouth 3 times a day. Active venlafaxine (EFFEXOR) 75 mg tablet Take 75 mg by mouth at bed time. Active butalbital-acet aminophen-caffe ine (FIORICET) 50-325-40 mg tablet Take 1 tablet [...] as needed for high blood sugar. Active ubrogepant 50 mg tabletIndicatio ns:Intractable migraine with aura without status migrainosus Take 1 tablet (50 mg total) by mouth daily as needed (for migraine headaches). Discontinue Nurtec as you stated does not work 16 tablet 5 5 Active galcanezumab-gn lm (Emgality Pen) 120 mg/mL pen injectorIndicat ions:Intractabl e migraine with aura without status migrainosus Inject 1 mL (120 mg total) under the skin every 28 days. 1 mL 5 5 Active Active Problems Problem Noted Date [...] Encounters Date Type Department Care Team Description 11/12/2024 Telephone [facility] [address] [place] [address] [phone] Vp Lab: Lazaro Davis LPN 10/31/2024 myChart Message [facility] [address] [place] [phone] Vp Lab: Bernie Huitron LPN Images from Last 3 Months Family History Medical [...] 118 08/05/2024 1:13 PM EDT Temperature 36.5 C (97.7 F) 08/05/2024 1:13 PM EDT Respiratory Rate 16 01/30/2019 11:05 AM EDT [...] Description 02/10/2025 11:30 AM EDT Office Visit [facility] [address] [place] [phone] Vp Lab: Adrienne Gutiérrez MD [address] [place] [phone] Health Maintenance Due Date Last Done Comments Cervical Cancer Screening 1975 Cologuard 1975 FOBT / Fit Test 1975 HIV Screening 1975 HPV and Pap Smear 1975 Pap Smear 1975 Sigmoidoscopy 1975 Medicare AWV 10/27/1976 COVID-19 Vaccine (#1) 10/27/1980 Hepatitis B Vaccines (1 of 3 - 19+ 3-dose series) 10/27/1994 Pneumococcal Vaccine: Pediat jl (0-5 Years) and At-Risk Patients (6-50 Years) (3 of 3 - PCV20 or PCV21) 12/19/2014 05/13/2014, 12/19/2009 Ophthalmology Exam 11/10/2022 11/10/2021, 0 07/01/2021, 07/01/2021, Additional history exists Alcohol/Substance Use Screening 05/14/2024 Depression Screening and Follow-Up 05/14/2024 Social Drivers of Health Hayley ual Screening 05/14/2024 Urine Microalbumin 12/31/2024 01/01/2024 Influenza Vaccine (#1) 2025 9, 02/13/2018, 02/08/2017, Additional history exists Hemoglobin A1C 02/17/2025 08/18/2024, 08/18/2024 Basic Metabolic Panel 08/18/2025 08/18/2024 , 07/13/2024, 06/04/2024, Additional history exists Mammogram 07/07/2026 07/07/2024, 06/13/2024 DTaP,Tdap,and Td Vaccines (4 - Td or Tdap) 07/05/2032 07/05/2022, 09/19/2017, 12/08/2007 Colon Cancer Screening 06/27/2034 Colonoscopy 06/27/2034 06/27/2024 RSV Vaccine (60+ years old a nd patients) (1 - 1-dose 75+ series) 10/27/2050 Hepatitis C Screening Completed 08/18/2024, 025 Procedures * Due to [place] [employer] law, this organization might not be sharing negative HIV tests. Procedure Name Priority Date/Time Associated Diagnosis Comments COMPREHENSIVE METABOLIC PANEL Routine 04/20/2023 9:56 AM EST Chronic migraine without aura without status migrainosus, not intractable HM DIABETES EYE EXAM 11/10/2021 from Last 3 Months or Most Recently Relevant to Health Maintenance Results * Due to [place] [employer] law, this organization might not be sharing negative HIV tests. * (ABNORMAL) Comprehensive Metabolic Panel (04/20/2023 9:56 AM EST) NA 141 135 - 145 mmol/L 04/20/2023 11:01 AM EST [facility] K 3.6 3.5 - 5.3 mmol/L 04/20/2023 11:01 AM EST [facility] Cl 107 97 - 110 mmol/L 04/20/2023 11:01 AM EST [facility] CO2 21(L) 24 - 32 mmol/L 04/20/2023 11:01 AM [facility] Anion Gap 13 5 - 15 04/20/2023 11:01 AM [facility] Glucose 139(H) 70 - 99 mg/dL 04/20/2023 11:01 AM [facility] Creatinine 0.89 0.50 - 1.20 mg/dL 04/20/2023 11:01 [facility] Calcium 9.1 8.7 - 10.7 mg/dL 04/20/2023 11:01 AM [facility] Total Protein 7.1 6.0 - 8.0 g/dL 04/20/2023 11:01 AM [facility] Albumin 4.4 3.5 - 4.8 g/dL 04/20/2023 11:01 AM [facility] Bilirubin, Total 0.2(L) 0.3 - 1.2 mg/dL 04/20/2023 11:01 AM [facility] Alkaline Phosphatase 115 30 - 115 U/L 04/20/2023 11:01 [facility] AST 14 10 - 40 U/L 04/20/2023 11:01 [facility] ALT 19 10 - 40 U/L 04/20/2023 11:01 [facility] BUN 19 7 - 23 mg/dL 04/20/2023 11:01 AM [facility] eGFR 81 >=60 mL/min/1. 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
--- OUTSIDE RECORDS SUMMARY | 2025-01-28 12:23 | XMS_ITS | Clinical Summary ---
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
--- OUTSIDE RECORDS SUMMARY | 2025-01-28 12:23 | XMS_ITS | Encounter Summary ---
Author Organization [facility] Address [address] [place] [address] Care Team Providers Care Healthcare Financial Analyst Name Role Phone Bernie Aquino Primary Care Provider [phone] Encounter Details Date Type Department Care Team (Late st Contact Info) Description 04/12/2021 Orders Only [facility] [address] [place] [address] ProviderCaitlyn MD [address] [place] [phone] Social History Tobacco Use Types Packs/Day [...] Description 02/10/2025 11:30 AM EDT Office Visit [facility] [address] [place] [address] Electronic Masking System Operator: Adrienne Gutiérrez MD [address] [place] [address] documented as of this encounter Procedures * Due to [place] state law, this organization might not be sharing negative HIV tests. Procedure Name Priority Date/Time Associated Diagnosis Comments AMB EXTERNAL CT HEAD, OUTSID E RESULT Routine 03/15/2021 documented in this encounter Results * Due to [place] law, this organization might not be sharing negative HIV tests. * CT Head, Outside Result (03/15/2021) Anatomical Region Laterality Modality Other us Unknown Provider MD JEFFERSON EXTERNAL RESULT PROCEDUR ES Final Result documented in this encounter Visit Diagnoses Not on filedocumented in this encounter Care Teams Healthcare Financial Analyst Relationship Specialty Start Date End Date Bernie Aquino [address] [place] [id number] PCP - General 08/22/21 documented as of this encounter
--- OUTSIDE RECORDS SUMMARY | 2025-01-28 12:24 | XMS_ITS | Encounter Summary ---
Author Organization [facility] Address [address] [place] [address] Phone Care Team Providers Care Director Of Casework Department Name Role Phone Unavailable Primary Care Provider Unavailabl e Encounter Details Date Type Department Care Team (Late st Contact Info) Description 01/02/2022 Telephone [facility] [address] [place] [address] Neto Cunningham MD Social History [...] on this issue. Has appt 01/10 in [place] office * Telephone Encounter - Alta Young [...] er visits. Please advise Thank you CB# [phone] documented in this encounter Plan of Treatment Not on file documented as of this encounter Visit Diagnoses Not on filedocumented in this encounter
--- OUTSIDE RECORDS SUMMARY | 2025-01-28 12:24 | XMS_ITS | Encounter Summary ---
Author Organization [facility] Address [address] [place] [address] Phone Care Team Providers Care Social Work Coordinator Name Role Phone Unavailable Primary Care Provider Unavailabl e Encounter Details Date Type Department Care Team (Late st Contact Info) Description 01/25/2022 Telephone [facility] [address] [place] [address] Neto Cunningham MD Social History [...]
--- OUTSIDE RECORDS SUMMARY | 2025-01-28 12:24 | XMS_ITS | Encounter Summary ---
Author Organization Address [address] [place] [address] Care Team Providers Care Yarn Inspector Name Role Phone Bernie Aquino YARN DYER Primary Care Provider Reason for Visit * Reason Comments Anemia Encounter Details Date Type Department Care Team ([facility] st Contact Info) Description 10/09/2024 Billing Patient Not Present Gastroenterology - [address] [phone] Tom Scott MD [address] [address] Social History Tobacco Use Types Packs/Day Years [...] Info) Description 02/03/2025 9:00 AM EDT Appointment [facility] [address] [place] [phone] 02/17/2025 8:00 AM EDT Appointment [facility] [address] [place] [phone] 04/01/2025 10:30 AM EST Office Visit [facility] Hematology Oncology [address] [place] [phone] Ulises Hancock MD [address] [place] [phone] documented as of this encounter Visit Diagnoses Not on filedocumented in this encounter Additional Health Concerns Infection Onset Date Last Indicated Resolved Time Respiratory Rule-Out 12/23/2024 12/23/2024 025 4:39 PM EDT COVID-19 Rule-Out 12/23/2024 12/23/202412/23/2024 4:39 PM EDT documented as of this encounter Care Teams Yarn Inspector Relationship Specialty Start Date End Date Bernie Aquino NP [address] [facility] [place] [address] PCP - General Family Medicine 10/05/21 documented as of this encounter
== END 2025-01-28 10:54 | disposition home or self-care (01) ==
LOC: HO.HKAS 10:11
PROVIDERS: PCP Nurse Practitioner Family; Visit Provider Internal Medicine Hypertension Specialist
DX: N25.1 Nephrogenic diabetes insipidus (principal); N18.9 Chronic kidney disease, unspecified
CPT/HCPCS: 99214

== ENCOUNTER → 2025-01-28 10:10 | Outpatient (BNVA) | payer MEDICARE, MEDICAID, SELFPAY | PROVIDERS: PCP Nurse Practitioner Family; Visit Provider Internal Medicine Hypertension Specialist | DX: N25.1 Nephrogenic diabetes insipidus (principal); N18.9 Chronic kidney disease, unspecified; Z79.899 Other long term (current) drug therapy | CPT/HCPCS: 99212 ==